=== PATIENT | female | born 1950 | race Caucasian/White ===

== ENCOUNTER 2016-07-19 13:08 | Inpatient (IN) | payer OTHER ==
[~2016-07-19] VITALS: Ht 157.5 cm; Wt 147.9 kg
[~2016-07-19 13:08] MED LIST: AMLO10TA4 PO; AMOX500C3 PO; ASPI325T4 PO; CALCTAB7 PO; FURO80TA63 PO; GLUC10007 PO; LISI40TA PO; MULTTAB58 PO; OMEG10007 PO; PANT1TAB48 PO; PIOG15TA26 PO; [UNRECOGNIZED DRUG - CODE] PO
[2016-07-19] MEDS ORDERED: METOPROLOL TARTRATE 1 MG/ML VIAL IV STA ×2 (15:00→15:36)
[2016-07-19 15:10] LABS: BASO % 0.6 %; BASO ABS # 0.05 K/uL (0-0.2); COMPLETE YES; EOS % 0.9 %; HEMATOCRIT 32.3 % (37-47); IG% 0.3 %; LYMPH % 17.8 %; LYMPH ABS # 1.58 K/uL (1.2-3.4); MEAN CELL VOLUME 81.6 fL (80-100); MEAN CORPUSCULAR HEMOGLOBIN 26.5 pg (25-34); MEAN CORPUSCULAR HGB CONC 32.5 g/dl (32-36); MONO % 4.5 %; NEUT % 75.9 %; PLATELET COUNT 227 K/uL (130-400); RED BLOOD COUNT 3.96 M/uL (4.2-5.4); WHITE BLOOD COUNT 8.88 K/uL (4.8-10.8)
[2016-07-19 15:19] LABS: PROTHROMBIN TIME (PATIENT) 10.8 SECONDS (9.0-12.0)
[2016-07-19 15:28] LABS: BLOOD UREA NITROGEN 27 mg/dl (7-18); BUN/CREATININE RATIO 24.9 (10-20); CALCIUM 8.9 mg/dl (8.5-10.1); CARBON DIOXIDE 26 mmol/L (21-32); CHLORIDE 105 mmol/L (98-107); GLUCOSE 148 mg/dl (70-99); POTASSIUM 3.5 mmol/L (3.5-5.1); SODIUM 143 mmol/L (136-145)
--- NOTE | 2016-07-19 15:29 | DIAGNOSTIC IMAGING REPORT ---
CHEST ONE VIEW PORTABLE CLINICAL HISTORY: slob, tachy dyspnea COMPARISON STUDY: 05/15/2012 FINDINGS: Right basilar parenchymal infiltrate. Mild right hilar fullness. Mild cardiomegaly. Upper lungs are clear. IMPRESSION: Diffuse parenchymal infiltrate right base. Mild possibly reactive right hilar fullness. Repeat chest film at later date when current symptoms have resolved is suggested to exclude residual hilar enlargement Electronically signed by: Florentin Quinones M.D. 07/19/2016 3:28 PM Dictated Date/Time: 07/19/2016 3:27 PM
[2016-07-19] MEDS ORDERED: ASPI81TA28 PO (15:30)
[2016-07-19] MEDS ORDERED: SUCR1TAB29 PO (15:33)
[2016-07-19] MEDS ORDERED: ACET-1256 PO (15:33)
[2016-07-19] MEDS ORDERED: TRAM-10 PO (15:36)
[2016-07-19] MEDS ORDERED: SIMV20TA2 PO (15:36)
[2016-07-19] MEDS ORDERED: PRLSR20 PO (15:36)
[2016-07-19] MEDS ORDERED: ALLO100T PO (15:36)
[2016-07-19] MEDS ORDERED: MISC1CAP PO (15:38)
[2016-07-19] MEDS ORDERED: CHOL1TAB42 PO (15:38)
[2016-07-19] MEDS ORDERED: MULT1PAK6 PO (15:41)
[2016-07-19 15:43] LABS: ALKALINE PHOSPHATASE 83 U/L (45-117); ALT/SGPT 25 U/L (12-78); AST/SGOT 17 U/L (15-37)
[2016-07-19] MEDS ORDERED: SODIUM CHLORIDE 0.9% 500ML 500 ML IV STA (15:48)
[2016-07-19] MEDS ORDERED: PANTOprazole INJ 80 MG in DEXTROSE 5% 100ML IV ONE (16:45)
[2016-07-19] MEDS ORDERED: PANTOprazole INJ 40 MG in DEXTROSE 5% 100ML IV SCH (17:00)
[2016-07-19] MEDS ORDERED: ONDANSETRON INJ 2 MG/ML 2 ML VIAL IV PRN (17:30)
[2016-07-19] MEDS ORDERED: NITROGLYCERIN 0.4 MG SL PER TAB CHARGE SL PRN (17:30)
[2016-07-19] MEDS ORDERED: ACETAMINOPHEN 325 MG TAB PO PRN (17:30)
[2016-07-19] MEDS ORDERED: METOPROLOL TARTRATE 25 MG TAB PO ONE (17:45)
[2016-07-19] MEDS ORDERED: FLUC200T PO (17:58)
[2016-07-19 18:01] LABS: MAGNESIUM 1.7 mg/dl (1.8-2.4); THYROID STIMULATING HORMONE 2.37 uIu/ml (0.300-4.500)
[2016-07-19] MEDS ORDERED: GLUCAGON FOR INJ 1 MG VIAL SQ PRN (18:15)
[2016-07-19] MEDS ORDERED: GLUCOSE 40% GEL 15 GM TUBE PO PRN (18:15)
[2016-07-19] MEDS ORDERED: DEXTROSE 50% 50 ML SYR IV PRN (18:15)
[2016-07-19] MEDS ORDERED: GLUCOSE 10 TABS/TUBE PO PRN (18:15)
--- NOTE | 2016-07-19 19:06 | History and Physical ---
History & Physical Date & Time of Service: Jul 19, 2016 at 18:01 Chief Complaint: Anemia, Sob On Exertion, Tachycardia Primary Care Physician: Micah Whitmore MD History of Present Illness Source: patient This is a 66 y/o female with PMH of HTN, DM type 2, HL, OA, gout, hx severe GIB secondary to gastric ulcer H Pylori positive in 2012, chronic anemia, who presents to the ED with dyspnea on exertion. Patient states HERRERA started 5 days ago. She initially attributed it to anemia. No SOB at rest. Chronically sleeps propped up. Breathing comfortably currently. She has not felt any palpitations but yesterday took her pulse and found it was irregular. She reports 10-15 lb weight gain and increase from chronic BLLE edema over past 1 week. She had 2 episodes of liquid stool this morning. She reports she has "a cold" with nasal congestion, postnasal drip, sore throat. Denies fevers, chills, cough, dizziness , chest pain, acid reflux, abdominal pain, N/V, urinary changes, calf pain, increase in chronic LE erythema, focal neuro symptoms. She recently was taking prednisone (took for 10 days- stopped 1 wk ago) for a gout flare and ibuprofen for chronic OA pain (stopped 3 days ago). Last EGD was in 2012 with gastric ulcers. No history of arrhythmia, CHF, CAD, TIA, CVA. No prior echo or stress test. Past Medical/Surgical History Medical Problems: (1) Anemia Status: Chronic (2) CKD (chronic kidney disease), stage III Status: Chronic (3) DM type 2 (diabetes mellitus, type 2) Status: Chronic (4) Dyslipidemia Status: Chronic (5) Gastric ulcer due to Helicobacter pylori Status: Chronic (6) Gout Status: Chronic (7) History of GI bleed Status: Chronic (8) HTN (hypertension) Status: Chronic (9) Hx of basal cell carcinoma Status: Chronic (10) Osteoarthritis Status: Chronic Surgical Problems: (1) H/O rotator cuff surgery Status: Chronic (2) History of arthroplasty of left knee Status: Chronic (3) History of carpal tunnel surgery Status: Chronic (4) Status post Mohs surgery Status: Chronic Family History Diabetes mellitus FH: CHF (congestive heart failure) GRANDMOTHER Hypertension Denies family history of arrhythmia or CAD. Grandmother had CHF. Social History Drinks 5 diet coke daily. No coffee, tea, energy drinks. 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) Immunizations History of Influenza Vaccine: No History of Tetanus Vaccine?: Yes History of Pneumococcal: No History of Hepatitis B Vaccine: No Multi-Drug Resistant Organisms History of MDRO: No Allergies Coded Allergies: Penicillins (Verified Allergy, Intermediate, URTICARIA; PER PT, CAN TAKE AMOXICILLIN, 07/19/16) Erythromycin (Verified Adverse Reaction, Mild, GI UPSET, 07/19/16) Home Medications Scheduled Allopurinol (Zyloprim), 2 TAB PO HS Amlodipine Besylate (Norvasc), 10 MG PO DAILY Aspirin (Aspirin Ec), 81 MG PO DAILY Cholecalciferol (Vitamin D), 1 TAB PO QAM Fluconazole (Diflucan), 1 TAB PO WK Furosemide (Lasix), 80 MG PO DAILY Lisinopril (Zestril), 40 MG PO DAILY Misc Natural Products (Cosamin Asu Advanced Life), 1 CAP PO QAM Multiple Vitamin (Multivitamin), 1 TAB PO DAILY Omeprazole (Prilosec), 20 MG PO DAILY Pioglitazone Hcl-Metformin 15/850 Mg (Actoplus Met 15/850 Mg), 1 TAB PO BID Simvastatin (Zocor), 1 TAB PO HS Scheduled PRN Acetaminophen (Tylenol), 1 TAB PO BID PRN for Pain Tramadol (Ultram), 2 TAB PO QID PRN for Pain Review of Systems Ten point ROS performed with pertinent positives and negatives noted in HPI. Physical Exam Vital Signs Date Time Temp Pulse Resp B/P Pulse Ox O2 Delivery O2 Flow Rate FiO2 07/19/16 16:49 121 20 128/76 07/19/16 16:04 142 20 128/68 93 Room Air 07/19/16 16:03 128 128/68 07/19/16 15:58 127 07/19/16 15:18 136 22 125/76 96 Room Air 07/19/16 15:17 159 125/76 07/19/16 13:16 36.6 145 20 162/95 92 Room Air 07/19/16 13:16 93 Room Air General Appearance: WD/WN, no apparent distress, + pertinent finding (plesant alert 66 year old female, daughter and son in law at bedside) Head: normocephalic, atraumatic Eyes: normal inspection, PERRL, EOMI ENT: hearing grossly normal, pharynx normal Neck: supple, no JVD, trachea midline Respiratory/Chest: no respiratory distress, no accessory muscle use, + crackles (bilateral bases) Cardiovascular: no murmur, + irregularly irregular (rate fluctuating between 110s-130s) Abdomen/GI: normal bowel sounds, non tender, soft Extremities/Musculoskelatal: no calf tenderness, + pertinent finding (2-3+ pitting pretibial edema up to the knees bilaterally) Neurologic/Psych: alert, normal mood/affect, oriented x 3, + pertinent finding (grossly nonfocal) Skin: warm/dry, + pertinent finding (few scabbed abrasions on right lower leg, erythema bilateral lower legs above the ankles- unchanged from baseline per patient, no tenderness or warmth) Diagnostics Laboratory Results Results Past 24 Hours Test 07/19/16 15:01 Range/Units White Blood Count 8.88 4.8-10.8 K/uL Red Blood Count 3.96 4.2-5.4 M/uL Hemoglobin 10.5 12.0-16.0 g/dL Hematocrit 32.3 37-47 % Mean Corpuscular Volume 81.6 80-100 fL Mean Corpuscular Hemoglobin 26.5 25-34 pg Mean Corpuscular Hemoglobin Concent 32.5 32-36 g/dl Platelet Count 227 130-400 K/uL Mean Platelet Volume 10.0 7.4-10.4 fL Neutrophils (%) (Auto) 75.9 % Lymphocytes (%) (Auto) 17.8 % Monocytes (%) (Auto) 4.5 % Eosinophils (%) (Auto) 0.9 % Basophils (%) (Auto) 0.6 % Neutrophils # (Auto) 6.74 1.4-6.5 K/uL Lymphocytes # (Auto) 1.58 1.2-3.4 K/uL Monocytes # (Auto) 0.40 0.11-0.59 K/uL Eosinophils # (Auto) 0.08 0-0.5 K/uL Basophils # (Auto) 0.05 0-0.2 K/uL RDW Standard Deviation 49.3 36.4-46.3 fL RDW Coefficient of Variation 16.3 11.5-14.5 % Immature Granulocyte % (Auto) 0.3 % Immature Granulocyte # (Auto) 0.03 0.00-0.02 K/uL Prothrombin Time 10.8 9.0-12.0 SECONDS Prothromb Time International Ratio 1.0 0.9-1.1 Activated Partial Thromboplast Time 25.4 21.0-31.0 SECONDS Partial Thromboplastin Ratio 1.0 Sodium Level 143 136-145 mmol/L Potassium Level 3.5 3.5-5.1 mmol/L Chloride Level 105 98-107 mmol/L Carbon Dioxide Level 26 21-32 mmol/L Anion Gap 12.0 3-11 mmol/L Blood Urea Nitrogen 27 7-18 mg/dl Creatinine 1.10 0.60-1.20 mg/dl Est Creatinine Clear Calc Drug Dose 66.0 ml/min Estimated GFR () 60.6 Estimated GFR (Non- 52.3 BUN/Creatinine Ratio 24.9 10-20 Random Glucose 148 70-99 mg/dl Calcium Level 8.9 8.5-10.1 mg/dl Total Bilirubin 0.4 0.2-1 mg/dl Direct Bilirubin 0.1 0-0.2 mg/dl Aspartate Amino Transf (AST/SGOT) 17 15-37 U/L Alanine Aminotransferase (ALT/SGPT) 25 12-78 U/L Alkaline Phosphatase 83 45-117 U/L Troponin I < 0.015 0-0.045 ng/ml Pro-B-Type Natriuretic Peptide 1704 0-900 pg/ml Total Protein 7.1 6.4-8.2 gm/dl Albumin 3.4 3.4-5.0 gm/dl Diagnostic Radiology CHEST ONE VIEW PORTABLE CLINICAL HISTORY: slob, tachy dyspnea COMPARISON STUDY: 05/15/2012 FINDINGS: Right basilar parenchymal infiltrate. Mild right hilar fullness. Mild cardiomegaly. Upper lungs are clear. IMPRESSION: Diffuse parenchymal infiltrate right base. Mild possibly reactive right hilar fullness. Repeat chest film at later date when current symptoms have resolved is suggested to exclude residual hilar enlargement EKG AF with RVR rate 144 Impression Assessment and Plan ATRIAL FIBRILLATION WITH RVR New onset Rate up to 140s-150s in ED Given IV Lopressor 5 mg in ER with drop in BP -> resolved with 500 mL bolus, then had 2nd dose of IV Lopressor 5 mg IV; rate still fluctuating 110s-130s Initial trop negative; potassium WNL; mag slightly low- replacement ordered; TSH WNL CXR shows cardiomegaly, R base infiltrate; clinically no symptoms of pneumonia; no fever; no leukocytosis Clinically appears to be volume overloaded; + weight gain, edema, bibasilar crackles; BNP ~1700 Question if volume overload triggered the atrial fibrillation Give IV Lasix 80 mg x 1 Monitor daily weight and strict I/O's with sin catheter Check echo Trend serial cardiac enzymes CHADS2 score 2 from HTN and DM No anticoagulation given positive hemoccult stool in ER Cardiology consulted; case discussed with Dr. Lino by attending CHRONIC ANEMIA Hg is 10.5; was running 11's in 2014; ran 11 or lower since 2012 Hx severe GIB from peptic ulcer secondary to H pylori in 2012; required transfusion of 5 units at that time for Hg in 4's With hemoccult positive stool in ER Does not appear to be acutely bleeding; ? longstanding slow GIB; at risk for ulcer with recent NSAID and prednisone use, but not having epigastric pain, hematochezia or melena Was placed on PPI drip in ER- will decrease back to daily PO PPI HYPERTENSION Takes amlodipine, lisinopril, Lasix at home Hold home antihypertensives for now while getting IV Lasix Monitor BP DM TYPE 2 Hold pioglitazone- metformin Insulin sliding scale coverage Check A1c in am CKD STAGE III Cr is 1.1; stable at baseline Monitor renal function while on IV Lasix DYSLIPIDEMIA Continue statin DVT PROPHYLAXIS SCD's due to hemoccult positive stool FULL CODE DISPOSITION Follows with Dr. Whtimore for primary care Patient seen in collaboration with Dr. Alarcon. Please see her addendum. I have seen, examined and discussed this patient with Keily Howard and I agree with the above note. Patient presents with HERRERA for the past several days. Vitals notable for tachycardia and low-normal blood pressures. PE: General- awake; alert; NAD Eyes- EOMI; no scleral icterus Neck- no stridor; trachea midline Lungs- bibasilar crackles Heart- irregularly irregular Abdomen- soft; NT; nBS Back- no gross abnormalities Extremities- 2+ pitting edema bilateral LE; no deformity Neuro- no focal deficits Skin- no appreciable rash or bruise Labs, imaging and EKG reviewed. A fib with RVR: Case d/w Cardiology. May be precipitated by volume overload. Patient received Lopressor IV x2 in ED. Remains in A fib. Will diurese to see if helps with HR control. Give Lasix 80mg IV x1 (patient takes 80mg PO outpatient). No anticoagulation given heme-occult +. Sin catheter for accurate I/O. Volume overload: Possible new onset heart failure. Recent weight gain. Crackles on lung exam and LE edema. Elevated BNP (although patient is obese). TTE pending. Cardiology consulted. Lasix 80mg IV x1. HTN: Hold home antihypertensives. Agree with remainder of plan as outlined above. VTE Prophylaxis VTE Risk Assessment Done? Y/N: Yes Risk Level: Moderate
[2016-07-19] MEDS ORDERED: FUROSEMIDE INJ 80 MG in SYRINGE 0 ML IV ONE (19:30)
[2016-07-19] MEDS ORDERED: MAGNESIUM SULFATE 1GM / D5W 1 GM in PREMIXED IN D5W 100 ML IV ONE (19:30)
[2016-07-19 19:31] VITALS: BP 154/88; PULSE 106; TEMP 36.6; O2SAT 93; Ht 157.5 cm; Wt 147.9 kg
[2016-07-19] MEDS: ALLOPURINOL 100 MG TAB PO SCH (20:59)
[2016-07-19] MEDS ORDERED: INFLUENZA VIRUS QUAD VACCINE 0.5 ML SYR IM. ONE (21:00)
[2016-07-19] MEDS ORDERED: INFLUENZA ADMINISTRATION CHARGE ONE (21:00)
[2016-07-19] MEDS ORDERED: SIMVASTATIN 20 MG TAB PO SCH (21:00)
[2016-07-19] MEDS: INSULIN ASPART 100 UNITS/ML 3 ML PEN SC SCH (21:01)
--- NOTE | 2016-07-19 21:26 | EMERGENCY ROOM VISIT NOTE ---
History Report prepared by Joni: Ginger Ta Under the Supervision of: Dr. Vick Morgan M.D. First contact with patient: 14:40 Chief Complaint: SHORTNESS OF BREATH Stated Complaint: ANEMIA, SOB ON EXERTION, TACHYCARDIA Nursing Triage Summary: pt report she has sob mouna is vet put self on prednisone but now sob. pt has bilat lower ext edema. has cold sx. pt tested her own blood yesteday hct 28.9 took ibuprofen up til 3 days ago. History of Present Illness The patient is a 66 year old female who presents to the Emergency Room with complaints of worsening shortness of breath with onset five days ago. She rates her discomfort as a 2/10. 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 When she noticed the shortness of breath, she started herself on prednisone. The patient took her own hematocrit and states that it was at 28.9. The patient states that she often takes ibuprofen and that she forgot to stop taking the ibuprofen when she started herself on the prednisone. The patient took ibuprofen up until three days ago. The patient relates that has a history of anemia and that she has had a bleeding ulcer before. For this, she has had to have a blood transfusion. The patient has gained fifteen pounds in the past two weeks and she has some swelling in her legs. She has had diarrhea. The patient denies black stool, history of atrial fibrillation, syncope, chest pain, abdominal pain. Source of History: patient Onset: 5 days ago Position: chest Symptom Intensity: 2/10 Quality: other (shortness of breath) Associated Symptoms: + diarrhea, No abdominal pain, No chest pain, No melena Note: The patient has gained fifteen pounds in the past two weeks and she has some swelling in her legs. Review of Systems See HPI for pertinent positives & negatives. A total of 10 systems reviewed and were otherwise negative. Past Medical & Surgical Medical Problems: (1) Anemia (2) Atrial fibrillation with RVR (3) CKD (chronic kidney disease), stage III (4) DM type 2 (diabetes mellitus, type 2) (5) Dyslipidemia (6) Gastric ulcer due to Helicobacter pylori (7) Gout (8) History of GI bleed (9) HTN (hypertension) (10) Hx of basal cell carcinoma (11) Osteoarthritis Surgical Problems: (1) H/O rotator cuff surgery (2) History of arthroplasty of left knee (3) History of carpal tunnel surgery (4) Status post Mohs surgery Family History Diabetes mellitus FHx: heart disease Hypertension Social History Smoking Status: Never Smoker Alcohol Use: occasionally Marital Status: Occupation Status: employed Current/Historical Medications Scheduled Allopurinol (Zyloprim), 2 TAB PO HS Amlodipine Besylate (Norvasc), 10 MG PO DAILY Aspirin (Aspirin Ec), 81 MG PO DAILY Cholecalciferol (Vitamin D), 1 TAB PO QAM Fluconazole (Diflucan), 1 TAB PO WK Furosemide (Lasix), 80 MG PO DAILY Lisinopril (Zestril), 40 MG PO DAILY Misc Natural Products (Cosamin Asu Advanced Life), 1 CAP PO QAM Multiple Vitamin (Multivitamin), 1 TAB PO DAILY Omeprazole (Prilosec), 20 MG PO DAILY Pioglitazone Hcl-Metformin 15/850 Mg (Actoplus Met 15/850 Mg), 1 TAB PO BID Simvastatin (Zocor), 1 TAB PO HS Scheduled PRN Acetaminophen (Tylenol), 1 TAB PO BID PRN for Pain Tramadol (Ultram), 2 TAB PO QID PRN for Pain Allergies Coded Allergies: Penicillins (Verified Allergy, Intermediate, URTICARIA; PER PT, CAN TAKE AMOXICILLIN, 07/19/16) Erythromycin (Verified Adverse Reaction, Mild, GI UPSET, 07/19/16) Physical Exam Vital Signs Date Time Temp Pulse Resp B/P Pulse Ox O2 Delivery O2 Flow Rate FiO2 07/19/16 16:49 121 20 128/76 07/19/16 16:04 142 20 128/68 93 Room Air 07/19/16 16:03 128 128/68 07/19/16 15:58 127 07/19/16 15:18 136 22 125/76 96 Room Air 07/19/16 15:17 159 125/76 07/19/16 13:16 36.6 145 20 162/95 92 Room Air 07/19/16 13:16 93 Room Air Physical Exam GENERAL: Patient is unwell appearing and in minimal distress. HEENT: No acute trauma, normocephalic atraumatic, mucous membranes moist, no nasal congestion, no scleral icterus. NECK: No stridor, no adenopathy, no meningismus, trachea is midline. LUNGS: Distant lung sounds. HEART: Tachycardic rate and regular rhythm. No murmurs, rubs, gallops appreciated. ABDOMEN: Soft, nontender, bowel sounds positive, no masses appreciated, no peritonitis. BACK: No midline tenderness, no CVA tenderness EXTREMITIES: Normal motion all extremities, no cyanosis, no edema. NEUROLOGIC: Alert and oriented, no acute motor or sensory deficits, no focal weakness, cranial nerves grossly intact. SKIN: No rash, no jaundice, no diaphoresis. RECTAL: Brown, heme positive stool. Medical Decision & Procedures ER Provider Diagnostic Interpretation: X ray results are stated below per my interpretation and the radiologist's interpretation. CHEST ONE VIEW PORTABLE CLINICAL HISTORY: slob, tachy dyspnea COMPARISON STUDY: 05/15/2012 FINDINGS: Right basilar parenchymal infiltrate. Mild right hilar fullness. Mild cardiomegaly. Upper lungs are clear. IMPRESSION: Diffuse parenchymal infiltrate right base. Mild possibly reactive right hilar fullness. Repeat chest film at later date when current symptoms have resolved is suggested to exclude residual hilar enlargement Electronically signed by: Florentin Quinones M.D. 07/19/2016 3:28 PM Dictated Date/Time: 07/19/2016 3:27 PM Laboratory Results 07/19/16 15:01 Red Blood Count 3.96, Mean Corpuscular Volume 81.6, Mean Corpuscular Hemoglobin 26.5, Mean Corpuscular Hemoglobin Concent 32.5, Mean Platelet Volume 10.0, Neutrophils (%) (Auto) 75.9, Lymphocytes (%) (Auto) 17.8, Monocytes (%) (Auto) 4.5, Eosinophils (%) (Auto) 0.9, Basophils (%) (Auto) 0.6, Neutrophils # (Auto) 6.74, Lymphocytes # (Auto) 1.58, Monocytes # (Auto) 0.40, Eosinophils # (Auto) 0.08, Basophils # (Auto) 0.05 07/19/16 15:01 Test 07/19/16 15:01 White Blood Count 8.88 K/uL (4.8-10.8) Red Blood Count 3.96 M/uL (4.2-5.4) Hemoglobin 10.5 g/dL (12.0-16.0) Hematocrit 32.3 % (37-47) Mean Corpuscular Volume 81.6 fL (80-100) Mean Corpuscular Hemoglobin 26.5 pg (25-34) Mean Corpuscular Hemoglobin Concent 32.5 g/dl (32-36) Platelet Count 227 K/uL (130-400) Mean Platelet Volume 10.0 fL (7.4-10.4) Neutrophils (%) (Auto) 75.9 % Lymphocytes (%) (Auto) 17.8 % Monocytes (%) (Auto) 4.5 % Eosinophils (%) (Auto) 0.9 % Basophils (%) (Auto) 0.6 % Neutrophils # (Auto) 6.74 K/uL (1.4-6.5) Lymphocytes # (Auto) 1.58 K/uL (1.2-3.4) Monocytes # (Auto) 0.40 K/uL (0.11-0.59) Eosinophils # (Auto) 0.08 K/uL (0-0.5) Basophils # (Auto) 0.05 K/uL (0-0.2) RDW Standard Deviation 49.3 fL (36.4-46.3) RDW Coefficient of Variation 16.3 % (11.5-14.5) Immature Granulocyte % (Auto) 0.3 % Immature Granulocyte # (Auto) 0.03 K/uL (0.00-0.02) Prothrombin Time 10.8 SECONDS (9.0-12.0) Prothromb Time International Ratio 1.0 (0.9-1.1) Activated Partial Thromboplast Time 25.4 SECONDS (21.0-31.0) Partial Thromboplastin Ratio 1.0 Anion Gap 12.0 mmol/L (3-11) Est Creatinine Clear Calc Drug Dose 66.0 ml/min Estimated GFR () 60.6 Estimated GFR (Non- 52.3 BUN/Creatinine Ratio 24.9 (10-20) Calcium Level 8.9 mg/dl (8.5-10.1) Magnesium Level 1.7 mg/dl (1.8-2.4) Total Bilirubin 0.4 mg/dl (0.2-1) Direct Bilirubin 0.1 mg/dl (0-0.2) Aspartate Amino Transf (AST/SGOT) 17 U/L (15-37) Alanine Aminotransferase (ALT/SGPT) 25 U/L (12-78) Alkaline Phosphatase 83 U/L (45-117) Pro-B-Type Natriuretic Peptide 1704 pg/ml (0-900) Total Protein 7.1 gm/dl (6.4-8.2) Albumin 3.4 gm/dl (3.4-5.0) Thyroid Stimulating Hormone (TSH) 2.370 uIu/ml (0.300-4.500) Laboratory results as reviewed by me. Medications Administered Medications (Trade) Dose Ordered Sig/Scott Route Start Time Stop Time Status Last Admin Dose Admin Metoprolol Tartrate (Lopressor Iv) 5 mg NOW STAT IV 07/19/16 15:00 07/19/16 15:01 DC 07/19/16 15:17 5 MG Metoprolol Tartrate 5 mg 5 mg NOW STAT IV 07/19/16 15:36 07/19/16 15:37 DC 07/19/16 16:03 5 MG Sodium Chloride (Nss 500ml) 500 ml @ 999 mls/hr Q31M STAT IV 07/19/16 15:48 07/19/16 16:18 DC 07/19/16 15:51 999 MLS/HR Pantoprazole Sodium 1 ea 1 ea NOW STAT IV 07/19/16 16:04 07/19/16 16:05 DC 07/19/16 16:36 1 EA Pantoprazole Sodium 80 mg/ Dextrose 120 ml @ 480 mls/hr 1645 ONCE IV 07/19/16 16:45 07/19/16 16:59 DC 07/19/16 16:35 480 MLS/HR Pantoprazole Sodium/Dextrose (Protonix Inj/D5 100ml) 100 ml @ 20 mls/hr Q5H IV 07/19/16 17:00 07/19/16 18:45 DC 07/19/16 16:58 20 MLS/HR ECG Indication: SOB/dyspnea Rate (beats per minute): 144 Rhythm: atrial fibrillation (with RVR) Findings: PVC, other (no STEMI, non specific ST changes) ED Course 1441: The patient was evaluated in room C4. A complete history and physical exam was performed. 1500: Lopressor 5 mg IV 1530: I reevaluated the patient; she is feeling better but her heart rate is irregular. 1536: Lopressor 5 mg IV 1540: I reevaluated the patient; she is hypotensive post-Lopressor, we have not yet given the second dose of Lopressor. 1548: Sodium Chloride 500 ml @ 999 mls/hr IV 1604: Pantoprazole Sodium 1 ea IV 1605: I updated the patient. Heart rate is in the 120s and blood pressure is 128. 1645: Pantoprazole Sodium 80 mg / Dextrose 120 ml @ 480 mls/hr IV 1620: I discussed the case with Dr. Alarcon ([facility]); she will further evaluate the patient. Discussed results and treatment plan with the patient. She verbalized understanding and agreement with the treatment plan. The patient will be evaluated for further management. 1700: Pantoprazole Sodium 40 mg/ Dextrose 100 ml @ 20 mls/hr IV Medical Decision Differential: Infectious, Reactive Airway Disease, Pneumonia, Pneumothorax, COPD , CHF, ACS, Pulmonary Embolism, MSK, GI, Dissection, amongst other etiologies entertained. 66 yr old female arrives for generalized weakness, fatigue, and tachycardia. She is Afib RVR on arrival. Initially BP OK and with CHF concerns went with Lopressor to help slow down HR. She has no cough, no fever, no wbc elevation thus I do not feel this is infectious. She notes Prednisone use and NSAID use thus rectal exam which revealed brown heme POSITIVE stool. Started on Protonix as apparently gastric ulcer requiring transfusion in past. Mild hypotension with Lopressor thus gentle hydration, BP improved and given second lopressor and BP stable with HR to low 100s. Stable and in no distress. No significant respiratory issues though with exam, cxr congestion, 15 lb weight gain no doubt element of heart failure. Will likely need diuresis though will hold off given transient hypotension here. HgB stable thus no need for transfusion currently. With positive blood in stool will hold off from Heparin at this time and defer to medical team. Consults Time Called: 1618 Consulting Physician: Dr. Alarcon ([facility]) Returned Call: 1620 I discussed the case with Dr. Alarcon ([facility]); she will further evaluate the patient. Impression Primary Impression: Atrial fibrillation with RVR Additional Impressions: Heme positive stool Acute congestive heart failure Critical Care I have personally spent greater than 35 minutes of critical care time in the direct management of this patient. This was a life/limb threatening event. This includes time spent evaluating patient, direct bedside care, chart review, placing orders, interpretation of diagnostic studies, discussion with consultants, patient, and family members, as well as other required patient management activities. This 35 minutes is in excess of all separately billable procedures. Scribe Attestation The scribe's documentation has been prepared under my direction and personally reviewed by me in its entirety. I confirm that the note above accurately reflects all work, treatment, procedures, and medical decision making performed by me. Departure Information Dispostion Being Evaluated By Hospitalist Referrals Micah Whitmore MD (PCP) Patient Instructions My [facility] Problem Qualifiers Additional Impressions: Acute congestive heart failure Congestive heart failure type: unspecified congestive heart failure type Qualified Codes: I50.9 - Heart failure, unspecified
[2016-07-19 21:48] LABS: CKMB/CK RATIO 1.5 (0-3.0)
[2016-07-19] MEDS: METOPROLOL TARTRATE 1 MG/ML VIAL IV PRN (21:54)
[2016-07-19] MEDS ORDERED: POTASSIUM CHLORIDE 10 MEQ TABCR PO STA (23:00)
[2016-07-19] MEDS ORDERED: DIGOXIN IV 250 MCG in SYRINGE 9 ML IV ONE (23:15)
[2016-07-20] VITALS (10 sets, daily range): BP systolic 116–149; BP diastolic 68–89; PULSE 51–137; TEMP 36.3–37.1; O2SAT 91–96
[2016-07-20 03:09] LABS: HEMATOCRIT 30.1 % (37-47); MEAN CELL VOLUME 80.9 fL (80-100); MEAN CORPUSCULAR HEMOGLOBIN 26.3 pg (25-34); MEAN CORPUSCULAR HGB CONC 32.6 g/dl (32-36); MEAN PLATELET VOLUME 9.5 fL (7.4-10.4); PLATELET COUNT 192 K/uL (130-400); RED BLOOD COUNT 3.72 M/uL (4.2-5.4); WHITE BLOOD COUNT 6.97 K/uL (4.8-10.8)
[2016-07-20 03:26] LABS: BLOOD UREA NITROGEN 24 mg/dl (7-18); BUN/CREATININE RATIO 24.2 (10-20); CALCIUM 8.7 mg/dl (8.5-10.1); CARBON DIOXIDE 26 mmol/L (21-32); CHLORIDE 106 mmol/L (98-107); GLUCOSE 136 mg/dl (70-99); MAGNESIUM 1.7 mg/dl (1.8-2.4); POTASSIUM 3.6 mmol/L (3.5-5.1); SODIUM 144 mmol/L (136-145)
[2016-07-20 03:31] LABS: CKMB/CK RATIO 1.8 (0-3.0)
[2016-07-20] MEDS: METOPROLOL TARTRATE 1 MG/ML VIAL IV PRN (03:54)
[2016-07-20 07:15] LABS: ESTIMATED AVERAGE GLUCOSE 163 mg/dl; HA1C FLAG Normal (Normal)
[2016-07-20 08:00] LABS: MANUAL MICROSCOPIC REQUIRED? YES; URINE APPEARANCE SL CLOUDY (CLEAR); URINE BILIRUBIN NEG (NEG); URINE COLOR YELLOW; URINE NITRITE POS (NEG); UROBILINOGEN NEG (NEG)
[2016-07-20 08:02] LABS: REVIEW REQ? NO
[2016-07-20] MEDS: INSULIN ASPART 100 UNITS/ML 3 ML PEN SC SCH ×4 (08:02→20:35)
[2016-07-20] MEDS: PANTOprazole SOD 40 MG TAB PO SCH (08:05)
[2016-07-20] MEDS: ASPIRIN 81 MG ECTAB PO SCH (08:05)
[2016-07-20] MEDS: CHOLECALCIFEROL 1000 INTER.UNIT TAB PO SCH (08:05)
[2016-07-20] MEDS: MULTIVITAMIN TAB PO SCH (08:05)
[2016-07-20 08:11] LABS: URINE RBC 0-4 /hpf (0-4)
[2016-07-20 08:12] LABS: URINE BACTERIA 4+ (NEG)
[2016-07-20 08:14] LABS: ZZUR CULT IF INDIC CLEAN CATCH YES
--- NOTE | 2016-07-20 08:45 | DIAGNOSTIC IMAGING REPORT ---
CHEST 2 VIEWS ROUTINE HISTORY: Abnormal chest x-ray. Follow-up. COMPARISON: Chest 07/19/2016. FINDINGS: Small bilateral pleural effusions and cardiomegaly persist. Patchy bibasilar densities have improved. No pneumothorax. No change in the bilateral hilar prominence. IMPRESSION: 1. Improvement in the patchy bibasilar densities. 2. Small bilateral pleural effusions and cardiomegaly persist. 3. Bilateral hilar prominence, unchanged. This could be due to pulmonary vascular congestion versus hilar lymphadenopathy. Recommend follow-up to ensure resolution. Electronically signed by: Suhail Nolen M.D. 07/20/2016 8:43 AM Dictated Date/Time: 07/20/2016 8:42 AM
[2016-07-20] MEDS ORDERED: MAGNESIUM OXIDE 400 MG TAB PO ONE (08:58)
[2016-07-20] MEDS ORDERED: METOPROLOL TARTRATE 25 MG TAB PO SCH (09:00)
[2016-07-20] MEDS ORDERED: AMIODARONE IV BOLUS / DRIP IV STA (09:03)
[2016-07-20] MEDS ORDERED: AMIODARONE / D5W 100 ML IV SCH (09:20)
[2016-07-20 09:30] LABS: ISTAT HEMOGLOBIN 11.2 g/dl (12.0-16.0); ISTAT IONIZED CALCIUM 1.13 mmol/l (1.12-1.32)
[2016-07-20] MEDS ORDERED: AMIODARONE / D5W 200 ML IV SCH (09:30)
--- NOTE | 2016-07-20 10:01 | CARDIOLOGY CONSULTATION ---
DATE OF CONSULTATION: 07/20/2016 HISTORY OF PRESENT ILLNESS: Juanpablo Paulino is a 66-year-old female, seen in cardiology consultation per the request of Naomi Howard PA-C and Dr. Alarcon for the evaluation of shortness of breath as well as atrial fibrillation with rapid ventricular rate. The patient has a history of morbid obesity with a body mass index of 61 kilograms per meter squared, hypertension, and type 2 diabetes mellitus. She has a history of profound anemia, having had a severe gastrointestinal bleeding episode in 2012 secondary to a peptic ulcer and H. pylori. Her hemoglobin was down to the 4 grams per deciliter range at that time and required transfusion of 5 units packed red blood cells. She has had chronic persistent anemia in the interim. The patient presented to the hospital yesterday complaining of several days duration of progressive shortness of breath. Her presentation to the hospital took place on Wednesday and she had noticed that she started feeling short of breath on Wednesday or Wednesday. Several days prior to presentation, she had had heel pain that she felt was likely due to a gout episode and she started a prednisone taper, starting at 50 mg by mouth daily. She is also taking ibuprofen for the gout pain. Her heel pain subsequently completely resolved, but she noted progressive shortness of breath as well as fluid retention, feeling of fullness in her abdomen, hand, lower extremity edema despite being on her home dose of furosemide. On presentation yesterday, she was found to be volume overloaded and EKG revealed a presence of atrial fibrillation with rapid ventricular rate at 144 beats per minute. This was a new diagnosis per the patient. The patient received a dose of IV metoprolol, but this was subsequently discontinued due to concerns of apparent low blood pressure, although her blood pressures as listed in her vital signs all appear to be stable. The lowest blood pressure I see recorded was 100/77. Thus far, she has remained in atrial fibrillation with rapid ventricular rate. She received 1 dose of metoprolol tartrate IV at 15:17 yesterday and a second dose of metoprolol tartrate intravenously at 16:03 yesterday. She also received a dose of digoxin at 12:22 a.m. this morning. She received a dose of furosemide 40 mg daily. She notes that she is comfortable sitting up in bed, but she is very short of breath with minimal activity. PAST MEDICAL HISTORY: 1. Type 2 diabetes mellitus. 2. Morbid obesity. 3. History of chronic anemia with a past history of severe gastrointestinal bleeding episode as noted above. 4. Gout. 5. History of hypertension. 6. Basal cell carcinoma. 7. Osteoarthritis. PAST SURGICAL HISTORY: 1. Rotator cuff surgery. 2. History of arthroplasty of the left knee. 3. History of carpal tunnel surgery. 4. History of Moh's surgery. 5. History of EGD. FAMILY HISTORY: Grandmother with congestive heart failure. Her brother with "heart history;" however, the patient is unable to determine what her brother's actual history was. She does not believe he has ever had any heart stents and she does not believe that he had a pacemaker. SOCIAL HISTORY: The patient drinks 5 diet Cokes per day. She denies coffee, tea, or energy drinks. She is a nonsmoker. 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 ALLERGIES: 1. PENICILLIN, WHICH HAS CAUSED URTICARIA IN THE PAST BUT APPARENTLY TOLERATES AMOXICILLIN. 2. ERYTHROMYCIN WITH GI UPSET. HOME MEDICATIONS: Allopurinol 2 tablets by mouth daily at bedtime, amlodipine 10 mg by mouth daily, aspirin 81 mg by mouth daily, vitamin D 1 tablet daily in the a.m., Diflucan 1 tablet by mouth daily once per week on Wednesday, furosemide 80 mg by mouth daily, lisinopril 40 mg daily, multivitamin 1 tablet by mouth daily, omeprazole 20 mg daily, pioglitazone/metformin 1 tablet by mouth b.i.d., and simvastatin 20 mg by mouth daily. The patient also takes acetaminophen and tramadol on an as needed basis. REVIEW OF SYSTEMS: Complete review of systems is negative with the exception of that outlined above. PHYSICAL EXAMINATION: VITAL SIGNS: Temperature 36.8 and heart rate 140-160 on telemetry. Blood pressure 133/84 and pulse oximetry 96% on room air. GENERAL APPEARANCE: Awake and oriented x3 in no acute distress. HEENT: Extraocular muscles were intact. Pupils are equal and reactive to light. NECK: No bruits. No cervical lymphadenopathy. CARDIOVASCULAR: Irregular rhythm, tachycardic, no murmurs. ABDOMEN: Soft, nontender, and obese. EXTREMITIES: 1+ lower extremity edema to the mid tibia. DIAGNOSTIC DATA: Presenting EKG on 07/19/2016 at 14:56 revealed atrial fibrillation with rapid ventricular rate at 144 beats per minute with no significant ST changes. Repeat EKG performed this morning on 07/20/2016 revealed atrial fibrillation at 135 beats per minute. LABORATORY DATA: Hemoglobin 9.8, hematocrit 30.1, and MCV 80.9. Sodium 144, potassium 3.6, BUN 24, creatinine 1.0, and magnesium 1.7. CPK 72 and 74 respectively. Troponin I less than 0.015, 0.020, and less than 0.015 x3 sets. The patient had a transthoracic echocardiogram already performed and per my personal preliminary review, there is no significant pericardial effusion. The left ventricular wall motion is grossly normal with normal LVEF. Mild mitral regurgitation is present. FINAL IMPRESSION: A 66-year-old female. 1. Shortness of breath with atrial fibrillation with rapid ventricular rate. 2. Superimposed volume overload in the setting of recent nonsteroidal anti-inflammatory course as well as prednisone. 3. Underlying history of type 2 diabetes mellitus. 4. History of hypertension; however, her blood pressure has been borderline low off of her antihypertensive medications at present. 5. Presumed underlying obstructive sleep apnea with a history of snoring, she has not been clinically tested for sleep apnea. 6. Longstanding anemia, history of life-threatening gastrointestinal bleeding several years ago, at which time she received transfusion of 5 units of packed red blood cells and having presented with a hemoglobin of 4.6. Her hemoglobin is 9.8 at present. DISCUSSION AND RECOMMENDATIONS: 1. The patient received 2 doses of IV metoprolol and they were discontinued due to concerns of borderline low blood pressure. She is perhaps still a little bit volume overloaded, having received a single dose of furosemide. 2. At the present time, I recommend transitioning her to oral metoprolol tartrate. We will start at 12.5 mg p.o. q. 6 hours due to concerns of recent mild low blood pressure with previous doses of IV metoprolol. 3. The patient is significantly symptomatic. She is not an anticoagulation candidate due to history of severe bleeding in the past and I would suspect that she still has some degree of gastrointestinal bleeding as her hemoglobin has remained abnormal over the last several years and is less than 10 at present time. 4. Per the patient's history, she believes that her symptoms started 5 days ago. 5. Ideally, I would like to avoid chemical or direct current cardioversion as she is not a candidate for anticoagulation, I do not want provoke stroke; however, given the significance of her symptoms, will cautiously start her on an amiodarone infusion with hopes of improving rate control without inducing hypotension and perhaps, will successfully be able to maintain sinus rhythm as well with less risk than would be necessary with direct current cardioversion. 6. Her magnesium level will be supplemented. 7. She may need further diuretic therapy at this hospital stay, but for now will hold off and start with these medication changes first. 8. Due to need for treatment with amiodarone, I would plan to place her fluconazole on hold. 9. Also, her simvastatin dose will need to be adjusted and I have decreased it from 20 mg to 10 mg. MTDD
[2016-07-20] MEDS: METOPROLOL TARTRATE 25 MG TAB PO SCH ×4 (10:31→20:38)
--- NOTE | 2016-07-20 10:34 | Progress Note ---
Medicine Progress Note Date & Time of Visit: Jul 20, 2016 at 10:26. Subjective seen sitting up in bed comfortable overall denies active chest pain, dyspnea, palpitations no cough, sputum no abdominal pain, nausea, melena/hematochezia no other symptoms Objective Last 8 Hrs Date Time Temp Pulse Resp B/P Pulse Ox O2 Delivery O2 Flow Rate FiO2 07/20/16 08:13 36.8 80 19 133/84 96 Room Air 07/20/16 08:00 93 Room Air 07/20/16 04:09 36.5 137 18 122/75 93 Room Air 07/20/16 04:00 Nasal Cannula 2.0 07/20/16 03:54 142 122/75 Physical Exam: General- oriented x 3, not in distress, speaks in sentences with no effort Head- atraumatic Eyes- EOMI, anicteric ENT- oropharynx clear Neck- supple, mild JVD, no adenopathy Lungs- mild rales bilateral bases, no wheezes Heart- tachycardic, irregularly irregular rhythm; no murmurs Abdomen- normal bowel sounds, soft, nontender, Extremities- grade 2 lower leg edema, mild warmth/erythema; no calf tenderness Neuro- alert, oriented x 3; no grosss focal neuro deficit Skin- warm & dry Laboratory Results: Last 24 Hours Test 07/19/16 15:01 07/19/16 15:05 07/19/16 20:55 07/19/16 21:10 White Blood Count 8.88 K/uL Red Blood Count 3.96 M/uL Hemoglobin 10.5 g/dL Hematocrit 32.3 % Mean Corpuscular Volume 81.6 fL Mean Corpuscular Hemoglobin 26.5 pg Mean Corpuscular Hemoglobin Concent 32.5 g/dl Platelet Count 227 K/uL Mean Platelet Volume 10.0 fL Neutrophils (%) (Auto) 75.9 % Lymphocytes (%) (Auto) 17.8 % Monocytes (%) (Auto) 4.5 % Eosinophils (%) (Auto) 0.9 % Basophils (%) (Auto) 0.6 % Neutrophils # (Auto) 6.74 K/uL Lymphocytes # (Auto) 1.58 K/uL Monocytes # (Auto) 0.40 K/uL Eosinophils # (Auto) 0.08 K/uL Basophils # (Auto) 0.05 K/uL RDW Standard Deviation 49.3 fL RDW Coefficient of Variation 16.3 % Immature Granulocyte % (Auto) 0.3 % Immature Granulocyte # (Auto) 0.03 K/uL Prothrombin Time 10.8 SECONDS Prothromb Time International Ratio 1.0 Activated Partial Thromboplast Time 25.4 SECONDS Partial Thromboplastin Ratio 1.0 Sodium Level 143 mmol/L Potassium Level 3.5 mmol/L Chloride Level 105 mmol/L Carbon Dioxide Level 26 mmol/L Anion Gap 12.0 mmol/L 18.0 mmol/L Blood Urea Nitrogen 27 mg/dl Creatinine 1.10 mg/dl Est Creatinine Clear Calc Drug Dose 66.0 ml/min Estimated GFR () 60.6 Estimated GFR (Non- 52.3 BUN/Creatinine Ratio 24.9 Random Glucose 148 mg/dl Calcium Level 8.9 mg/dl Magnesium Level 1.7 mg/dl Total Bilirubin 0.4 mg/dl Direct Bilirubin 0.1 mg/dl Aspartate Amino Transf (AST/SGOT) 17 U/L Alanine Aminotransferase (ALT/SGPT) 25 U/L Alkaline Phosphatase 83 U/L Troponin I < 0.015 ng/ml 0.020 ng/ml Pro-B-Type Natriuretic Peptide 1704 pg/ml Total Protein 7.1 gm/dl Albumin 3.4 gm/dl Thyroid Stimulating Hormone (TSH) 2.370 uIu/ml Hepatitis C Antibody Screen NEG Bedside Hemoglobin 11.2 g/dl Bedside Hematocrit 33 % Bedside Sodium 141 mEq/L Bedside Potassium 3.5 mEq/L Bedside Chloride 103 mEq/L Bedside Total CO2 24 mEq/l Bedside Blood Urea Nitrogen 26 mg/dl Bedside Creatinine 1.0 mg/dl Bedside Glucose (other) 155 mg/dl Bedside Ionized Calcium (Elisa) 1.13 mmol/l Bedside Glucose 189 mg/dl Total Creatine Kinase 72 U/L Creatine Kinase MB 1.1 ng/ml Creatine Kinase MB Ratio 1.5 Test 07/20/16 03:01 07/20/16 07:06 07/20/16 07:35 White Blood Count 6.97 K/uL Red Blood Count 3.72 M/uL Hemoglobin 9.8 g/dL Hematocrit 30.1 % Mean Corpuscular Volume 80.9 fL Mean Corpuscular Hemoglobin 26.3 pg Mean Corpuscular Hemoglobin Concent 32.6 g/dl RDW Standard Deviation 47.6 fL RDW Coefficient of Variation 16.0 % Platelet Count 192 K/uL Mean Platelet Volume 9.5 fL Sodium Level 144 mmol/L Potassium Level 3.6 mmol/L Chloride Level 106 mmol/L Carbon Dioxide Level 26 mmol/L Anion Gap 12.0 mmol/L Blood Urea Nitrogen 24 mg/dl Creatinine 1.00 mg/dl Est Creatinine Clear Calc Drug Dose 78.0 ml/min Estimated GFR () 68.0 Estimated GFR (Non- 58.7 BUN/Creatinine Ratio 24.2 Random Glucose 136 mg/dl Estimated Average Glucose 163 mg/dl Hemoglobin A1c 7.3 % Calcium Level 8.7 mg/dl Magnesium Level 1.7 mg/dl Total Creatine Kinase 74 U/L Creatine Kinase MB 1.3 ng/ml Creatine Kinase MB Ratio 1.8 Troponin I < 0.015 ng/ml Bedside Glucose 145 mg/dl Urine Color YELLOW Urine Appearance SL CLOUDY Urine pH 6.0 Urine Specific [place] 1.020 Urine Protein NEG Urine Glucose (UA) NEG Urine Ketones 1+ Urine Occult Blood NEG Urine Nitrite POS Urine Bilirubin NEG Urine Urobilinogen NEG Urine Leukocyte Esterase SMALL Urine RBC 0-4 /hpf Urine WBC 10-30 /hpf Urine Epithelial Cells 5-10 /lpf Urine Bacteria 4+ Urine Hyaline Casts 1-5 /lpf Date/Time Source Procedure Growth Status 07/20/16 07:35 Urine , Clean Catch Urine Culture Pending Received Assessment & Plan 66 year old female with history of DM, HTN, CKD 3, Gout, GI bleed presenting with shortness of breath. ATRIAL FIBRILLATION WITH RVR, NEW ONSET PULMONARY EDEMA - CXR shows cardiomegaly, R base infiltrate; clinically no symptoms of pneumonia ; no fever; no leukocytosis Clinically appears to be volume overloaded; + weight gain, edema, bibasilar crackles; BNP ~1700 - received Lasix 80mg IV one dose diuresing fairly repeat CXR: improving pulmonary edema - Cardiology consulted echo pending - Metoprolol 12.5mg QID and Amiodarone started on Aspirin, No anticoagulation given history of GI bleed, positive hemoccult stool in ER BILATERAL HILAR PROMINENCE IMPRESSION: 1. Improvement in the patchy bibasilar densities. 2. Small bilateral pleural effusions and cardiomegaly persist. 3. Bilateral hilar prominence, unchanged. This could be due to pulmonary vascular congestion versus hilar lymphadenopathy. Recommend follow-up to ensure resolution. -- follow up CXR needed CHRONIC ANEMIA Hg is 10.5; was running 11's in 2014; ran 11 or lower since 2012 Hx severe GIB from peptic ulcer secondary to H pylori in 2012; required transfusion of 5 units at that time for Hg in 4's With hemoccult positive stool in ER Does not appear to be acutely bleeding; ? longstanding slow GIB; at risk for ulcer with recent NSAID and prednisone use, but not having epigastric pain, hematochezia or melena -- Hg slightly lower today no overt signs of GI bleed monitor Protonix daily started HYPERTENSION Takes amlodipine, lisinopril, Lasix at home Amlodipine and Lisinopril held Metoprolol started DM TYPE 2 Hold pioglitazone- metformin Insulin sliding scale coverage Check A1c CKD STAGE III Cr is 1.1; stable at baseline Monitor renal function while on IV Lasix DYSLIPIDEMIA Continue statin DVT PROPHYLAXIS SCD's due to hemoccult positive stool FULL CODE DISPOSITION pending Current Inpatient Medications: Current Inpatient Medications Medications (Trade) Dose Ordered Sig/Scott Route Start Time Stop Time Status Last Admin Dose Admin Acetaminophen (Tylenol Tab) 650 mg Q4H PRN PO 07/19/16 17:30 08/18/16 17:29 Ondansetron HCl (Zofran Inj) 4 mg Q6H PRN IV 07/19/16 17:30 08/18/16 17:29 Nitroglycerin (Nitrostat Tab) 0.4 mg UD PRN SL 07/19/16 17:30 08/18/16 17:29 Metoprolol Tartrate (Lopressor Iv) 5 mg Q6 PRN IV 07/19/16 17:45 08/18/16 17:44 07/20/16 03:54 5 MG Allopurinol (Zyloprim Tab) 200 mg HS PO 07/19/16 21:00 08/18/16 20:59 07/19/16 20:59 200 MG Aspirin (Ecotrin Tab) 81 mg DAILY PO 07/20/16 09:00 08/19/16 08:59 07/20/16 08:05 81 MG Multivitamins (Multivitamin Tab) 1 tab DAILY PO 07/20/16 09:00 08/19/16 08:59 07/20/16 08:05 1 TAB Tramadol HCl (Ultram Tab) 100 mg QID PRN PO 07/19/16 18:00 08/18/16 17:59 Cholecalciferol (Vitamin D Tab) 5,000 inter.unit DAILY PO 07/20/16 09:00 08/19/16 08:59 07/20/16 08:05 5,000 INTER.UNIT Pantoprazole Sodium (Protonix Tab) 40 mg QAM PO 07/20/16 09:00 08/19/16 08:59 07/20/16 08:05 40 MG Insulin Aspart (novoLOG ASPART) SLIDING SCALE If C... ACHS SC 07/19/16 21:00 08/18/16 20:59 07/20/16 08:02 6 UNITS Glucose (Glucose 40% Gel) 15-30 GRAMS 15 GRAMS... UD PRN PO 07/19/16 18:15 08/18/16 18:14 Glucose (Glucose Chew Tab) 4-8 Tablets 4 Tabl... UD PRN PO 07/19/16 18:15 08/18/16 18:14 Dextrose (Dextrose 50% 50ML Syringe) 25-50ML OF 50% DW IV FOR... UD PRN IV 07/19/16 18:15 08/18/16 18:14 Glucagon (Glucagon Inj) 1 mg UD PRN SQ 07/19/16 18:15 08/18/16 18:14 Magnesium Oxide (Mag-Ox Tab) 400 mg BID PO 07/20/16 21:00 08/19/16 20:59 Metoprolol Tartrate (Lopressor Tab) 12.5 mg QID PO 07/20/16 09:00 08/19/16 08:59 Simvastatin 10 mg 10 mg PM PO 07/20/16 21:00 08/19/16 20:59 Amiodarone HCL/ Dextrose 200 ml @ 33.3 mls/hr Q6H1M IV 07/20/16 09:30 07/20/16 15:30 07/20/16 10:04 33.3 MLS/HR Amiodarone HCL/ Dextrose (Nexterone / D5w) 200 ml @ 16.7 mls/hr [id number] IV 07/20/16 15:31 08/19/16 15:30
--- NOTE | 2016-07-20 12:05 | ECHOCARDIOGRAM REPORT ---
*NOTICE TO RECEIVING [employer] This information is strictly Confidential and protected under [place] law. [place] law prohibits you from making any further disclosure of this information unless further disclosure is expressly permitted by the written consent of the person to whom it pertains or is authorized by law. A general authorization for the release of medical or other information is not sufficient for this purpose. Hospital accepts no responsibility if the information is made available to any other person, INCLUDING THE PATIENT. Interpretation Summary * Name: Alex GRISSOM Study Date: 07/20/2016 06:58 AM BP: 133/84 mmHg * Patient Location: C.2T\S\S242\S\2 HR: 80 * : 1950 (M/d/yyy) Gender: Female Height: 62 in * Age: 66 yrs Ethnicity: [place] Weight: 292 lb * Ordering Physician: Namoi Howard * Performed By: Kayce Coffey RDCS * * Reason For Study: Atrial fibrillation * BSA: 2.2 m2 * -- Conclusions -- * Atrial fibrillaiton with rapid ventricular rate was present during the echocardiogram examination. * The study was technically difficult due to patient characteristics, poor acoustic windows. * The left ventricular wall motion is normal. * The qualitative left ventricular ejection fraction =55% (normal). * The right ventricle is not well visualized. * The right ventricle is mildly dilated. * The right ventricular systolic function is mildly reduced. * The left atrium is mildly dilated. * There is mild mitral annular calcification. * The posterior mitral valve leaflet is mildly calcified with associated calcification of the subvalvular apparatus. * There is no mitral valve stenosis. * There is mild mitral regurgitation. * Dilated inferior vena cava with reduced collapsability with sniff indicates an elevated right atrial pressure of 15 mmHg * The tricuspid regurgitation jet is not sufficent to allow culculation of the pulmonary artery systolic pressure. * Pulmonary hypertension is suspected based on 2 D findings. Procedure Details * A complete two-dimensional transthoracic echocardiogram was performed (2D, M-mode, Doppler and color flow Doppler). Left Ventricle * The left ventricle is normal in size. * There is normal left ventricular wall thickness. * Left ventricular systolic function is normal. * The qualitative left ventricular ejection fraction =55% (normal). * The left ventricular wall motion is normal. Right Ventricle * The right ventricle is not well visualized. * The right ventricle is mildly dilated. * The right ventricular systolic function is mildly reduced. Atria * The left atrium is mildly dilated. * Right atrial size is normal. * There is no evidence of atrial septal defect, but resolution does not allow assessment for a patent foramen ovale. Mitral Valve * There is mild mitral annular calcification. * The posterior mitral valve leaflet is mildly calcified with associated calcification of the subvalvular apparatus. * There is no mitral valve stenosis. * There is mild mitral regurgitation. Tricuspid Valve * The tricuspid valve is normal. * There is no tricuspid stenosis. * Significant tricuspid regurgitation is absent. Aortic Valve * The aortic valve is trileaflet. * Aortic stenosis is absent. * There is no significant aortic regurgitation. Pulmonic Valve * The pulmonary valve is not well seen, but the Doppler examination is normal without significant regurgitation or stenosis. Great Vessels * The aortic root and proximal ascending aorta are normal sized. Pericardium/Pleural * There is no pericardial effusion. Great Vessels * The inferior vena cava is mildly dilated. * Dilated inferior vena cava with reduced collapsability with sniff indicates an elevated right atrial pressure of 15 mmHg Left Ventricular Diastolic Function * LV diastolic dysfunction is present based on the left atrial enlargement, but is not graded due to the presence of underlying atrial fibrillation. MMode 2D Measurements and Calculations IVSd 1.2 cm LVIDd 4.8 cm LVIDs 3.5 cm LVPWd 1.4 cm IVS/LVPW 0.88 FS 26.6 % EDV(Teich) 108.2 ml ESV(Teich) 51.9 ml EF(Teich) 52.0 % EDV(cubed) 111.5 ml ESV(cubed) 44.0 ml EF(cubed) 60.5 % LV mass(C)d 244.7 grams LV mass(C)dI 109.0 grams/m\S\2 CO(Teich) 5.7 l/min CI(Teich) 2.5 l/min/m\S\2 SV(Teich) 56.3 ml SI(Teich) 25.1 ml/m\S\2 CO(cubed) 6.8 l/min CI(cubed) 3.0 l/min/m\S\2 SV(cubed) 67.5 ml SI(cubed) 30.1 ml/m\S\2 Ao root diam 2.6 cm Ao root area 5.3 cm\S\2 ACS 1.7 cm LA dimension 4.0 cm LA/Ao 1.5 LVAd ap4 28.3 cm\S\2 LVLd ap4 7.8 cm EDV(MOD-sp4) 82.0 ml LVAs ap4 17.1 cm\S\2 LVLs ap4 6.5 cm ESV(MOD-sp4) 37.0 ml EF(MOD-sp4) 54.9 % LVAd ap2 23.8 cm\S\2 LVLd ap2 7.5 cm EDV(MOD-sp2) 65.0 ml LVAs ap2 15.1 cm\S\2 LVLs ap2 6.6 cm ESV(MOD-sp2) 29.0 ml EF(MOD-sp2) 55.4 % CO(MOD-sp4) 4.5 l/min CI(MOD-sp4) 2.0 l/min/m\S\2 SV(MOD-sp4) 45.0 ml SI(MOD-sp4) 20.0 ml/m\S\2 CO(MOD-sp2) 3.6 l/min CI(MOD-sp2) 1.6 l/min/m\S\2 SV(MOD-sp2) 36.0 ml SI(MOD-sp2) 16.0 ml/m\S\2 Doppler Measurements and Calculations MV E max masha 128.3 cm/sec Ao V2 max 205.1 cm/sec Ao max PG 16.8 mmHg Ao max PG (full) 12.9 mmHg LV V1 max PG 3.9 mmHg LV V1 max 99.2 cm/sec PA V2 max 122.2 cm/sec PA max PG 6.0 mmHg
[2016-07-20] MEDS ORDERED: METOPROLOL TARTRATE 25 MG TAB PO STA (12:15)
[2016-07-20] MEDS: AMIODARONE / D5W 200 ML IV SCH (16:32)
[2016-07-20] MEDS: MAGNESIUM OXIDE 400 MG TAB PO SCH (20:38)
[2016-07-20] MEDS: ALLOPURINOL 100 MG TAB PO SCH (20:39)
[2016-07-20] MEDS ORDERED: WARFARIN SOD 5 MG TAB PO ONE (21:00)
[2016-07-20] MEDS: SIMVASTATIN 10 MG TAB PO SCH (21:26)
[2016-07-21] VITALS (8 sets, daily range): BP systolic 109–155; BP diastolic 77–91; PULSE 99–120; TEMP 36.5–37; O2SAT 91–93
[2016-07-21] MEDS: AMIODARONE / D5W 200 ML IV SCH ×5 (03:28→18:28)
--- NOTE | 2016-07-21 06:24 | Clinical Documentation Query ---
JOSÉ MIGUEL Longo : CLINICAL DOCUMENTATION QUERIES QUERY 1 OF 2 Patient is a 66 year old female admitted for the evaluation and treatment of new onset atrial fibrillation with RVR. Documentation includes "pulmonary edema", not otherwise specified. She is being monitored on telemetry, seen in consultation by cardiology, had an echocardiogram, and recieved IV Lasix. Acuity cannot be assumed by the professional human resources associate. As appropriate, consider documentation as suggested below as this impacts DRG assignment. In your clinical opinion is this patient being managed for: ( + ) Acute pulmonary edema ( ) Other explanation of clinical findings (Please Explain) ( ) Unable to determine (Please Define) ( ) Need to Discuss ( ) Not Agree The medical record reflects the following clinical findings, treatment, and risk factors. Clinical Indicators: As above Treatment: IV Lasix, I/O, cardiology consultation, daily weights, telemetry Risk Factors: Atrial fibrillation with RVR QUERY 2 OF 2 Patient notes a 10-15 pound weight gain and an increase in bilateral lower extremity edema in the setting of dyspnea on exertion noted to have started 5 days prior to admission in the setting of new onset atrial fibrillation with RVR. Echocardiogram demonstrated a mildly reduced RV systolic function. LVEF within normal limits. In your clinical opinion is this patient being managed for: ( ) Acute RV systolic congestive heart failure ( ) Other explanation of clinical findings (Please Explain) (+ ) Unable to determine (Please Define) ( ) Need to Discuss ( ) Not Agree The medical record reflects the following clinical findings, treatment, and risk factors. Clinical Indicators: As above Treatment: IV Lasix, Lopressor, Amiodarone Risk Factors: Atrial fibrillation with RVR Please clarify and document your clinical opinion in the progress notes and discharge summary. Terms such as "probable", "suspected", "likely", "questionable", "possible", or "still to be ruled out" are acceptable. IF IN AGREEMENT, YOU MUST DOCUMENT ABOVE DIAGNOSTIC STATEMENT IN DAILY PROGRESS NOTES AND DISCHARGE SUMMARY. This document is not part of the patient's record. Thank You, Francisco Coelho, RN [phone]
[2016-07-21 07:15] LABS: HEMATOCRIT 32.2 % (37-47); MEAN CELL VOLUME 81.9 fL (80-100); MEAN CORPUSCULAR HEMOGLOBIN 26.5 pg (25-34); MEAN CORPUSCULAR HGB CONC 32.3 g/dl (32-36); MEAN PLATELET VOLUME 10.5 fL (7.4-10.4); PLATELET COUNT 194 K/uL (130-400); RED BLOOD COUNT 3.93 M/uL (4.2-5.4); WHITE BLOOD COUNT 7.69 K/uL (4.8-10.8)
[2016-07-21 07:21] LABS: PROTHROMBIN TIME (PATIENT) 10.9 SECONDS (9.0-12.0)
[2016-07-21] MEDS: METOPROLOL TARTRATE 1 MG/ML VIAL IV PRN (07:27)
[2016-07-21] MEDS: TRAMADOL HCL 50 MG TAB PO PRN (07:33)
[2016-07-21] MEDS: MAGNESIUM OXIDE 400 MG TAB PO SCH ×2 (07:34→20:50)
[2016-07-21] MEDS: PANTOprazole SOD 40 MG TAB PO SCH (07:34)
[2016-07-21] MEDS: METOPROLOL TARTRATE 25 MG TAB PO SCH (07:34)
[2016-07-21] MEDS: MULTIVITAMIN TAB PO SCH (07:34)
[2016-07-21] MEDS: CHOLECALCIFEROL 1000 INTER.UNIT TAB PO SCH (07:34)
[2016-07-21 07:44] LABS: BUN/CREATININE RATIO 22.9 (10-20); CREATININE 0.93 mg/dl (0.60-1.20); POTASSIUM 3.7 mmol/L (3.5-5.1)
[2016-07-21] MEDS: INSULIN ASPART 100 UNITS/ML 3 ML PEN SC SCH ×4 (07:44→20:51)
[2016-07-21] MEDS: ASPIRIN 81 MG ECTAB PO SCH (08:53)
--- NOTE | 2016-07-21 09:12 | Progress Note ---
Internal Med Progress Note Date of Service: Jul 21, 2016. Provider Documentation: SUBJECTIVE: Patient c/o SOB with no improvement since admission. Leg swelling bilaterally same as before. No palpitations, chest pain, cough, fever, chills, nausea, vomiting, urinary burning/frequency. Tele- Atrial fibrillation with RVR with HR in 120s OBJECTIVE: Vital Signs-as noted below Exam: General- oriented x 3, not in distress, speaks in sentences with no effort Neck- supple Lungs- mild rales bilateral bases, no wheezes Heart- tachycardic, irregularly irregular rhythm; no murmurs Extremities- grade 2 lower leg edema, mild warmth/erythema; no calf tenderness Neuro- alert, oriented x 3; no gross focal neuro deficit Lab data as noted below. ASSESSMENT & PLAN: 66 year old female with history of DM, HTN, CKD 3, Gout, GI bleed presenting with shortness of breath secondary to new onset Atrial fibrillation with RVR, acute pulmonary edema ATRIAL FIBRILLATION WITH RVR, NEW ONSET : ACUTE PULMONARY EDEMA: Clinically appears to be volume overloaded; + weight gain, edema, bibasilar crackles; BNP ~1700 - CXR shows cardiomegaly, R base infiltrate; clinically no symptoms of pneumonia; no fever; no leukocytosis. HR continues to be up - 120s -Received IV Lasix 80 mg x 1 dose. IV Metoprolol x 2 doses, but BP did drop so held IVs -On Metoprolol 25 mg PO QID, IV Amiodarone drip started on 07/20 due to low BP -Anticoagulation: Hx of severe GI bleed in past, FOBT + ve possibly has chronic GI bleeding with anemia. Aspirin 81 mg to be continued -Echo- A fib with RVR, LVEF=55%, LA -mild dilation, Rt ventricular function- slightly low, Mild MR, Pulmonary hypertension suspected ; Troponin x 3 negative PLAN: HR continues to be elevated- A fib with RVR with 120s. Will need more diuresing. BP stable today. Will discuss with Cardiology. UTI- ECOLI UA +VE, Urine cx= E coli -Will start Ciprofloxacin 500 mg PO BID (Day 1) - QTC today 493- monitor -Follow up c/s (per patient she has even tolerated amoxicillin, cefalosporins in past) CHRONIC ANEMIA Hg is 10.5; was running 11's in 2014; ran 11 or lower since 2012 Hx severe GIB from peptic ulcer secondary to H pylori in 2013; required transfusion of 5 units at that time for Hg in 4's FOBT positive in ER Does not appear to be acutely bleeding, Likely longstanding slow GIB; at risk for ulcer with recent NSAID and prednisone use, but not having epigastric pain, hematochezia or melena -No overt signs of GI bleeding -Will continue with Aspirin 81 mg daily with benefits > risks given A fib on amiodarone and no signs of overt GI bleeding. Will monitor H & H closely -Continue with protonix daily BILATERAL HILAR PROMINENCE IMPRESSION: 1. Improvement in the patchy bibasilar densities. 2. Small bilateral pleural effusions and cardiomegaly persist. 3. Bilateral hilar prominence, unchanged. This could be due to pulmonary vascular congestion versus hilar lymphadenopathy. Recommend follow-up to ensure resolution. -- follow up CXR needed outpatient HYPERTENSION BP was borderline low on presentation -Held amlodipine, lisinopril, Lasix at home (takes 80 mg 5 days/week) -Monitor while on lasix /Metoprolol DM TYPE 2 -Hold pioglitazone- metformin -Insulin sliding scale coverage -Checked A1c -7.3 CKD STAGE III Cr is 1.1; stable at baseline -Monitor renal function while on IV Lasix DYSLIPIDEMIA -Continue statin (decreased simvastatin from 20 mg to 10 mg per cardiology) MORBID OBESITY DVT PROPHYLAXIS -SCD's due to hemoccult positive stool FULL CODE DISPOSITION Medical mx in progress Expected discharge home when stable Vital Signs: Date Time Temp Pulse Resp B/P Pulse Ox O2 Delivery O2 Flow Rate FiO2 07/21/16 07:41 36.5 116 18 155/91 92 Room Air 07/21/16 07:27 125 146/94 07/21/16 04:00 92 Room Air 07/21/16 04:00 36.5 120 20 122/77 93 Room Air 07/21/16 00:00 36.6 110 20 124/85 92 Room Air 07/21/16 00:00 91 Room Air 07/20/16 20:03 36.3 51 20 116/68 92 Room Air 07/20/16 20:00 Room Air 07/20/16 16:00 91 Room Air 07/20/16 15:21 36.7 120 22 149/89 91 Room Air 07/20/16 12:16 37.1 130 18 135/82 92 Room Air 07/20/16 12:00 95 Room Air 07/20/16 10:29 135 119/76 Lab Results: Results Past 24 Hours Test 07/20/16 11:25 07/20/16 15:58 07/20/16 20:34 07/21/16 06:09 Range/Units Bedside Glucose 203 151 145 187 70-90 mg/dl Test 07/21/16 06:45 Range/Units White Blood Count 7.69 4.8-10.8 K/uL Red Blood Count 3.93 4.2-5.4 M/uL Hemoglobin 10.4 12.0-16.0 g/dL Hematocrit 32.2 37-47 % Mean Corpuscular Volume 81.9 80-100 fL Mean Corpuscular Hemoglobin 26.5 25-34 pg Mean Corpuscular Hemoglobin Concent 32.3 32-36 g/dl RDW Standard Deviation 48.7 36.4-46.3 fL RDW Coefficient of Variation 16.1 11.5-14.5 % Platelet Count 194 130-400 K/uL Mean Platelet Volume 10.5 7.4-10.4 fL Prothrombin Time 10.9 9.0-12.0 SECONDS Prothromb Time International Ratio 1.0 0.9-1.1 Sodium Level 141 136-145 mmol/L Potassium Level 3.7 3.5-5.1 mmol/L Chloride Level 106 98-107 mmol/L Carbon Dioxide Level 25 21-32 mmol/L Anion Gap 10.0 3-11 mmol/L Blood Urea Nitrogen 21 7-18 mg/dl Creatinine 0.93 0.60-1.20 mg/dl Est Creatinine Clear Calc Drug Dose 85.4 ml/min Estimated GFR () 74.2 Estimated GFR (Non- 64.0 BUN/Creatinine Ratio 22.9 10-20 Random Glucose 174 70-99 mg/dl Calcium Level 9.0 8.5-10.1 mg/dl Magnesium Level 2.0 1.8-2.4 mg/dl
[2016-07-21] MEDS ORDERED: POTASSIUM CHLORIDE 10 MEQ TABCR PO STA (09:50)
--- NOTE | 2016-07-21 10:06 | Cardiology Follow-Up ---
Subjective General Date of Service: Jul 21, 2016. Chief Complaint: FOLLOW UP ATRIAL FIBRILLATION RVR, EXERTIONAL SOB Pt evaluation today including: conversation w/ patient, physical exam History of Present Illness The patient is a 66 year old female seen in follow up. She remains in AF , RVR despite PO metoprolol and IV amiodarone, V rates 130- 140s at rest. SOB with minimal walking to the bathroom. Allergies Coded Allergies: Penicillins (Verified Allergy, Intermediate, URTICARIA; PER PT, CAN TAKE AMOXICILLIN, 07/19/16) Erythromycin (Verified Adverse Reaction, Mild, GI UPSET, 07/19/16) Social History Smoking Status: Never Smoker Hx Tobacco Use In Past Year?: No Hx Alcohol Use - Type And Amou: Yes (occasional mixed drink or glass of wine) Hx Substance Use - Type And Am: No Problem List Medical Problems: (1) Acute congestive heart failure Status: Acute (2) Heme positive stool Status: Acute Physical Exam Vital Signs Last Vital Signs Documentation Date Time Temp Pulse Resp B/P Pulse Ox O2 Delivery O2 Flow Rate FiO2 07/21/16 08:00 Room Air 07/21/16 07:41 36.5 116 18 155/91 92 07/20/16 04:00 2.0 Physical Exam Constitutional: General Apperance: obese Neck: supple Lungs: Auscultation: pertinent finding (decrease breathsounds at the bases) Cardiovascular: Heart Auscultation: no murmurs, tachycardia, irregular rate rhythm Extremities: pertinent finding (1+ bilateral lower extremity edema ) Neurologic: Gait & Station: pertinent finding (no focal deficits ) Assessment and Plan Assessment and Plan Impression: 66 year old female 1. Symptomatic AF ,RVR 2. Volume overload, normal LVEF, diastolic dysfunction 3. Mild hypokalemia 4. Chronic anemia, h/o GI bleed, heme occult positive stool Plan: Increase amiodarone IV dose to 1 mg/minute. Increase metoprolol tartrate to 50 mg BID. Add Diltiazem CD 120 mg daily. Furosemide 40 mg IV x 1. Replace potassium. Cancelled ciprofloxacin due to potential for interaction with amiodarone. Will cautiously add coumadin (without bridge therapy) for stroke prevention.Monitor Hgb. Laboratory Results Last 24 Hours Test 07/20/16 11:25 07/20/16 15:58 07/20/16 20:34 07/21/16 06:09 Bedside Glucose 203 mg/dl 151 mg/dl 145 mg/dl 187 mg/dl Test 07/21/16 06:45 White Blood Count 7.69 K/uL Red Blood Count 3.93 M/uL Hemoglobin 10.4 g/dL Hematocrit 32.2 % Mean Corpuscular Volume 81.9 fL Mean Corpuscular Hemoglobin 26.5 pg Mean Corpuscular Hemoglobin Concent 32.3 g/dl RDW Standard Deviation 48.7 fL RDW Coefficient of Variation 16.1 % Platelet Count 194 K/uL Mean Platelet Volume 10.5 fL Prothrombin Time 10.9 SECONDS Prothromb Time International Ratio 1.0 Sodium Level 141 mmol/L Potassium Level 3.7 mmol/L Chloride Level 106 mmol/L Carbon Dioxide Level 25 mmol/L Anion Gap 10.0 mmol/L Blood Urea Nitrogen 21 mg/dl Creatinine 0.93 mg/dl Est Creatinine Clear Calc Drug Dose 85.4 ml/min Estimated GFR () 74.2 Estimated GFR (Non- 64.0 BUN/Creatinine Ratio 22.9 Random Glucose 174 mg/dl Calcium Level 9.0 mg/dl Magnesium Level 2.0 mg/dl
[2016-07-21] MEDS ORDERED: FUROSEMIDE INJ 40 MG in SYRINGE 0 ML IV SCH (11:00)
[2016-07-21] MEDS ORDERED: DILTIAZEM HCL 120 MG CAPCR PO ONE (11:00)
[2016-07-21] MEDS ORDERED: METOPROLOL TARTRATE 50 MG TAB PO ONE (11:00)
[2016-07-21] MEDS ORDERED: WARFARIN SOD 5 MG TAB PO SCH (16:00)
[2016-07-21] MEDS: SIMVASTATIN 10 MG TAB PO SCH (20:50)
[2016-07-21] MEDS: CEPHALEXIN MONOHYDRATE 500 MG CAP PO SCH (20:50)
[2016-07-21] MEDS: METOPROLOL TARTRATE 50 MG TAB PO SCH (20:50)
[2016-07-21] MEDS: ALLOPURINOL 100 MG TAB PO SCH (20:50)
[2016-07-21] MEDS ORDERED: CIPROFLOXACIN 500 MG TAB PO SCH (21:00)
[2016-07-22] VITALS (8 sets, daily range): BP systolic 112–144; BP diastolic 62–84; PULSE 101–126; TEMP 36.5–37; O2SAT 91–95
[2016-07-22] MEDS: AMIODARONE / D5W 200 ML IV SCH ×6 (00:28→21:40)
[2016-07-22] MEDS: TRAMADOL HCL 50 MG TAB PO PRN ×3 (07:46→23:57)
[2016-07-22 07:51] LABS: HEMATOCRIT 36.3 % (37-47); MEAN CELL VOLUME 82.3 fL (80-100); MEAN CORPUSCULAR HEMOGLOBIN 26.1 pg (25-34); MEAN CORPUSCULAR HGB CONC 31.7 g/dl (32-36); MEAN PLATELET VOLUME 10.4 fL (7.4-10.4); PLATELET COUNT 224 K/uL (130-400); RED BLOOD COUNT 4.41 M/uL (4.2-5.4); WHITE BLOOD COUNT 8.11 K/uL (4.8-10.8)
[2016-07-22] MEDS: INSULIN ASPART 100 UNITS/ML 3 ML PEN SC SCH ×4 (07:53→20:03)
[2016-07-22 08:00] LABS: PROTHROMBIN TIME (PATIENT) 11.1 SECONDS (9.0-12.0)
[2016-07-22 08:26] LABS: BUN/CREATININE RATIO 22.6 (10-20); CALCIUM 9.3 mg/dl (8.5-10.1); POTASSIUM 3.8 mmol/L (3.5-5.1)
[2016-07-22] MEDS: POTASSIUM CHLORIDE 20 MEQ TABCR PO SCH (08:45)
[2016-07-22] MEDS: ASPIRIN 81 MG ECTAB PO SCH (08:45)
[2016-07-22] MEDS: CEPHALEXIN MONOHYDRATE 500 MG CAP PO SCH ×2 (08:45→20:05)
[2016-07-22] MEDS: MAGNESIUM OXIDE 400 MG TAB PO SCH ×2 (08:46→20:05)
[2016-07-22] MEDS: METOPROLOL TARTRATE 50 MG TAB PO SCH ×3 (08:46→20:03)
[2016-07-22] MEDS: PANTOprazole SOD 40 MG TAB PO SCH (08:46)
[2016-07-22] MEDS: MULTIVITAMIN TAB PO SCH (08:46)
[2016-07-22] MEDS: CHOLECALCIFEROL 1000 INTER.UNIT TAB PO SCH (08:47)
[2016-07-22] MEDS ORDERED: DILTIAZEM HCL 120 MG CAPCR PO SCH (09:00)
--- NOTE | 2016-07-22 10:45 | Progress Note ---
Internal Med Progress Note Date of Service: Jul 22, 2016. Provider Documentation: SUBJECTIVE: Patient c/o SOB with no improvement since admission. Leg swelling bilaterally same as before. No palpitations, chest pain, cough, fever, chills, nausea, vomiting, urinary burning/frequency. Tele- Atrial fibrillation with RVR with HR in 110- 120s OBJECTIVE: Vital Signs-as noted below Exam: General- oriented x 3, not in distress, speaks in sentences with no effort Neck- supple Lungs- mild rales bilateral bases, no wheezes Heart- tachycardic, irregularly irregular rhythm; no murmurs Extremities- grade 2 lower leg edema, mild warmth/erythema; no calf tenderness Neuro- alert, oriented x 3; no gross focal neuro deficit Lab data as noted below. ASSESSMENT & PLAN: 66 year old female with history of DM, HTN, CKD 3, Gout, GI bleed presenting with shortness of breath secondary to new onset Atrial fibrillation with RVR, acute pulmonary edema ATRIAL FIBRILLATION WITH RVR, NEW ONSET : ACUTE PULMONARY EDEMA: Clinically appears to be volume overloaded; + weight gain, edema, bibasilar crackles; BNP ~1700 - CXR shows cardiomegaly, R base infiltrate; clinically no symptoms of pneumonia; no fever; no leukocytosis. HR continues to be up - 120s -Received IV Lasix 80 mg x 1 dose, Lasix 40 mg IV x 1 dose on 07/21. -On Metoprolol 50 mg PO BID, Diltiazem 120 mg daily (added on 07/21/16), IV Amiodarone drip started on 07/20 -Anticoagulation: Coumadin started on 07/21/16 in spite of risk of bleeding as may need cardioversion in future. Hx of severe GI bleeding in past, FOBT + ve possibly has chronic GI bleeding with anemia. -Echo- A fib with RVR, LVEF=55%, LA -mild dilation, Rt ventricular function- slightly low, Mild MR, Pulmonary hypertension suspected ; Troponin x 3 negative PLAN: HR continues to be elevated- A fib with RVR with 110-120s. Will defer mx to Cardiology. UTI- ECOLI UA +VE, Urine cx= E coli -On Kelfex BID (Day 2/5) -Follow up c/s (per patient she has even tolerated amoxicillin, cefalosporins in past) CHRONIC ANEMIA Hg is 10.5; was running 11's in 2014; ran 11 or lower since 2012 Hx severe GIB from peptic ulcer secondary to H pylori in 2012; required transfusion of 5 units at that time for Hg in 4's FOBT positive in ER; Repeat FOBT pending Does not appear to be acutely bleeding, Likely longstanding slow GIB; at risk for ulcer with recent NSAID and prednisone use, but not having epigastric pain, hematochezia or melena -No overt signs of GI bleeding -Started on Coumadin as may require cardioversion in future. Will monitor closely. -Continue with protonix daily BILATERAL HILAR PROMINENCE IMPRESSION: 1. Improvement in the patchy bibasilar densities. 2. Small bilateral pleural effusions and cardiomegaly persist. 3. Bilateral hilar prominence, unchanged. This could be due to pulmonary vascular congestion versus hilar lymphadenopathy. Recommend follow-up to ensure resolution. -- follow up CXR needed outpatient HYPERTENSION BP was borderline low on presentation -Held amlodipine, lisinopril, Lasix at home (takes 80 mg 5 days/week) -Monitor while on lasix /Metoprolol DM TYPE 2 -Hold pioglitazone- metformin -Insulin sliding scale coverage -Checked A1c -7.3 CKD STAGE III Cr is 1.1; stable at baseline -Monitor renal function while on IV Lasix DYSLIPIDEMIA -Continue statin (decreased simvastatin from 20 mg to 10 mg per cardiology) MORBID OBESITY DVT PROPHYLAXIS -SCD's due to hemoccult positive stool FULL CODE DISPOSITION Medical mx in progress- continue with tele monitoring Expected discharge home when stable Vital Signs: Date Time Temp Pulse Resp B/P Pulse Ox O2 Delivery O2 Flow Rate FiO2 07/22/16 08:12 36.6 126 20 119/84 95 Room Air 07/22/16 04:00 Room Air 07/22/16 03:00 36.5 104 20 144/82 92 Room Air 07/22/16 00:01 Room Air 07/21/16 23:02 36.5 110 20 131/83 91 Room Air 07/21/16 20:00 91 Room Air 07/21/16 19:21 37.0 112 18 115/82 91 Room Air 07/21/16 16:00 Room Air 07/21/16 15:54 37.0 116 20 126/89 92 Room Air 07/21/16 12:00 Room Air 07/21/16 11:54 36.6 99 18 109/77 92 Room Air Lab Results: Results Past 24 Hours Test 07/21/16 11:36 07/21/16 16:05 07/21/16 20:47 07/22/16 06:15 Range/Units Bedside Glucose 194 176 132 189 70-90 mg/dl Test 07/22/16 07:37 Range/Units White Blood Count 8.11 4.8-10.8 K/uL Red Blood Count 4.41 4.2-5.4 M/uL Hemoglobin 11.5 12.0-16.0 g/dL Hematocrit 36.3 37-47 % Mean Corpuscular Volume 82.3 80-100 fL Mean Corpuscular Hemoglobin 26.1 25-34 pg Mean Corpuscular Hemoglobin Concent 31.7 32-36 g/dl RDW Standard Deviation 48.6 36.4-46.3 fL RDW Coefficient of Variation 16.1 11.5-14.5 % Platelet Count 224 130-400 K/uL Mean Platelet Volume 10.4 7.4-10.4 fL Prothrombin Time 11.1 9.0-12.0 SECONDS Prothromb Time International Ratio 1.0 0.9-1.1 Sodium Level 140 136-145 mmol/L Potassium Level 3.8 3.5-5.1 mmol/L Chloride Level 105 98-107 mmol/L Carbon Dioxide Level 25 21-32 mmol/L Anion Gap 10.0 3-11 mmol/L Blood Urea Nitrogen 23 7-18 mg/dl Creatinine 1.00 0.60-1.20 mg/dl Est Creatinine Clear Calc Drug Dose 78.6 ml/min Estimated GFR () 68.0 Estimated GFR (Non- 58.7 BUN/Creatinine Ratio 22.6 10-20 Random Glucose 176 70-99 mg/dl Calcium Level 9.3 8.5-10.1 mg/dl Microbiology Results 07/21/16 C.difficile Toxin B Gene (PCR) - Final, Complete No C. difficile toxin B gene detected 07/21/16 Shiga Toxin Test, Received Pending 07/21/16 Stool Culture, Received Pending
--- NOTE | 2016-07-22 10:53 | Cardiology Follow-Up ---
Subjective General Date of Service: Jul 22, 2016. Chief Complaint: FOLLOW UP ATRIAL FIBRILLATION RVR, EXERTIONAL SOB Pt evaluation today including: conversation w/ patient, physical exam History of Present Illness The patient is a 66 year old female seen in follow up. Pt still comfortable in chair but short of breath with minimal activity such as walking to rest room. Telemetry reveals continued AF , RVR 130-140 bpm, brief 2 second pauses at 2 am , that look like conversion pauses, but then pt reverted to AF. Allergies Coded Allergies: Penicillins (Verified Allergy, Intermediate, URTICARIA; PER PT, CAN TAKE AMOXICILLIN, 07/19/16) Erythromycin (Verified Adverse Reaction, Mild, GI UPSET, 07/19/16) Social History Smoking Status: Never Smoker Hx Tobacco Use In Past Year?: No Hx Alcohol Use - Type And Amou: Yes (occasional mixed drink or glass of wine) Hx Substance Use - Type And Am: No Problem List Medical Problems: (1) Acute congestive heart failure Status: Acute (2) Heme positive stool Status: Acute Physical Exam Vital Signs Last Vital Signs Documentation Date Time Temp Pulse Resp B/P Pulse Ox O2 Delivery O2 Flow Rate FiO2 07/22/16 08:12 36.6 126 20 119/84 95 Room Air 07/20/16 04:00 2.0 Physical Exam Constitutional: General Apperance: obese Neck: supple Lungs: Auscultation: pertinent finding (decrease breathsounds at the bases) Cardiovascular: Heart Auscultation: no murmurs, tachycardia, irregular rate rhythm Extremities: pertinent finding (1+ bilateral lower extremity edema ) Neurologic: Gait & Station: pertinent finding (no focal deficits ) Assessment and Plan Assessment and Plan Impression: 66 year old female 1. Symptomatic AF ,RVR 2. Volume overload, normal LVEF, diastolic dysfunction 3. Mild hypokalemia 4. Chronic anemia, h/o GI bleed, heme occult positive stool Plan: Continue IV amiodarone, Increase metoprolol to 50 mg TID. Continue oral diltiazem CD at 120 mg daily. Bumex IV, spironolactone, KCL supplement. Coumadin (without bridge therapy) for stroke prevention.Monitor Hgb cautiously. Will likely required RASHID CV once INR is at goal. Laboratory Results Last 24 Hours Test 07/21/16 11:36 07/21/16 16:05 07/21/16 20:47 07/22/16 06:15 Bedside Glucose 194 mg/dl 176 mg/dl 132 mg/dl 189 mg/dl Test 07/22/16 07:37 White Blood Count 8.11 K/uL Red Blood Count 4.41 M/uL Hemoglobin 11.5 g/dL Hematocrit 36.3 % Mean Corpuscular Volume 82.3 fL Mean Corpuscular Hemoglobin 26.1 pg Mean Corpuscular Hemoglobin Concent 31.7 g/dl RDW Standard Deviation 48.6 fL RDW Coefficient of Variation 16.1 % Platelet Count 224 K/uL Mean Platelet Volume 10.4 fL Prothrombin Time 11.1 SECONDS Prothromb Time International Ratio 1.0 Sodium Level 140 mmol/L Potassium Level 3.8 mmol/L Chloride Level 105 mmol/L Carbon Dioxide Level 25 mmol/L Anion Gap 10.0 mmol/L Blood Urea Nitrogen 23 mg/dl Creatinine 1.00 mg/dl Est Creatinine Clear Calc Drug Dose 78.6 ml/min Estimated GFR () 68.0 Estimated GFR (Non- 58.7 BUN/Creatinine Ratio 22.6 Random Glucose 176 mg/dl Calcium Level 9.3 mg/dl
[2016-07-22] MEDS ORDERED: BUMETANIDE IV 1 MG in SYRINGE 0 ML IV ONE (11:00)
[2016-07-22] MEDS ORDERED: SPIRONOLACTONE 25 MG TAB PO ONE (11:00)
[2016-07-22] MEDS: WARFARIN SOD 7.5 MG TAB PO SCH (16:04)
[2016-07-22] MEDS: ALLOPURINOL 100 MG TAB PO SCH (20:04)
[2016-07-22] MEDS: SIMVASTATIN 10 MG TAB PO SCH (20:04)
[2016-07-23] VITALS (9 sets, daily range): BP systolic 112–132; BP diastolic 70–85; PULSE 63–117; TEMP 36.3–36.9; O2SAT 90–94
[2016-07-23 06:06] LABS: HEMATOCRIT 31.5 % (37-47); MEAN CELL VOLUME 81.2 fL (80-100); MEAN CORPUSCULAR HGB CONC 32.1 g/dl (32-36); MEAN PLATELET VOLUME 10.5 fL (7.4-10.4); PLATELET COUNT 230 K/uL (130-400); RED BLOOD COUNT 3.88 M/uL (4.2-5.4); WHITE BLOOD COUNT 7.32 K/uL (4.8-10.8)
[2016-07-23 06:14] LABS: PROTHROMBIN TIME (PATIENT) 11.1 SECONDS (9.0-12.0)
[2016-07-23] MEDS: TRAMADOL HCL 50 MG TAB PO PRN ×2 (06:29→16:01)
[2016-07-23 06:39] LABS: BUN/CREATININE RATIO 26.3 (10-20); CALCIUM 8.5 mg/dl (8.5-10.1)
[2016-07-23] MEDS: AMIODARONE / D5W 200 ML IV SCH ×4 (06:47→21:44)
[2016-07-23] MEDS: INSULIN ASPART 100 UNITS/ML 3 ML PEN SC SCH ×4 (07:48→20:59)
[2016-07-23] MEDS ORDERED: HEPARIN IV LOW DOSE NO BOLUS SCH (08:51)
[2016-07-23] MEDS: SPIRONOLACTONE 25 MG TAB PO SCH (08:55)
[2016-07-23] MEDS: DILTIAZEM HCL 180 MG CAPCR PO SCH (08:57)
[2016-07-23] MEDS: PANTOprazole SOD 40 MG TAB PO SCH (08:57)
[2016-07-23] MEDS: MAGNESIUM OXIDE 400 MG TAB PO SCH ×2 (08:57→20:19)
[2016-07-23] MEDS: METOPROLOL TARTRATE 50 MG TAB PO SCH ×3 (08:57→20:19)
[2016-07-23] MEDS: CEPHALEXIN MONOHYDRATE 500 MG CAP PO SCH ×2 (08:57→20:18)
[2016-07-23] MEDS: MULTIVITAMIN TAB PO SCH (08:57)
[2016-07-23] MEDS: POTASSIUM CHLORIDE 20 MEQ TABCR PO SCH (08:57)
[2016-07-23] MEDS: ASPIRIN 81 MG ECTAB PO SCH (08:57)
[2016-07-23] MEDS: CHOLECALCIFEROL 1000 INTER.UNIT TAB PO SCH (08:58)
[2016-07-23] MEDS ORDERED: BUMETANIDE IV 1 MG in SYRINGE 0 ML IV SCH (09:00)
--- NOTE | 2016-07-23 09:13 | Cardiology Follow-Up ---
Subjective General Date of Service: Jul 23, 2016. Chief Complaint: FOLLOW UP ATRIAL FIBRILLATION RVR, EXERTIONAL SOB History of Present Illness The patient is a 66 year old female seen in follow up. Patient notes she feels as the her dyspnea is worse. Her urine output has not increased despite addition of IV bumex and spironolactone. She remains in AF, RVR. Allergies Coded Allergies: Penicillins (Verified Allergy, Intermediate, URTICARIA; PER PT, CAN TAKE AMOXICILLIN, 07/19/16) Erythromycin (Verified Adverse Reaction, Mild, GI UPSET, 07/19/16) Social History Smoking Status: Never Smoker Hx Tobacco Use In Past Year?: No Hx Alcohol Use - Type And Amou: Yes (occasional mixed drink or glass of wine) Hx Substance Use - Type And Am: No Problem List Medical Problems: (1) Acute congestive heart failure Status: Acute (2) Heme positive stool Status: Acute Physical Exam Vital Signs Last Vital Signs Documentation Date Time Temp Pulse Resp B/P Pulse Ox O2 Delivery O2 Flow Rate FiO2 07/23/16 07:15 36.6 108 20 113/74 93 Room Air 07/20/16 04:00 2.0 Physical Exam Constitutional: General Apperance: obese Neck: supple Lungs: Auscultation: pertinent finding (decrease breathsounds at the bases) Cardiovascular: Heart Auscultation: no murmurs, tachycardia, irregular rate rhythm Extremities: pertinent finding (1+ bilateral lower extremity edema ) Neurologic: Gait & Station: pertinent finding (no focal deficits ) Assessment and Plan Assessment and Plan Impression: 66 year old female 1. Symptomatic AF ,RVR 2. Volume overload, normal LVEF, diastolic dysfunction 3. Chronic anemia, h/o GI bleed, heme occult positive stool 4. Morbid obesity, likely underlying obstructive sleep apnea. Plan: Continue IV amiodarone, metoprolol to 50 mg TID. Continue oral diltiazem CD, dose increased to 180 mg daily. Bumex IV 1 mg BID at 7 am, 1400 daily, spironolactone, KCL supplement. H/ Hct are stable. Will add IV heparin, to coumadin for stroke prophylaxis with caution given anemia, h/o GI bleed. Will likely require RASHID CV once INR is at goal and volume status optimized. Tentatively scheduled for Thursday 07/27 with anesthesia. Obtain nocturnal pulse ox. to screen for nocturnal hypoxia. Check iron studies with am labs tomorrow. Laboratory Results Last 24 Hours Test 07/22/16 11:39 07/22/16 16:39 07/22/16 20:02 07/23/16 05:55 Bedside Glucose 182 mg/dl 187 mg/dl 156 mg/dl White Blood Count 7.32 K/uL Red Blood Count 3.88 M/uL Hemoglobin 10.1 g/dL Hematocrit 31.5 % Mean Corpuscular Volume 81.2 fL Mean Corpuscular Hemoglobin 26.0 pg Mean Corpuscular Hemoglobin Concent 32.1 g/dl RDW Standard Deviation 47.5 fL RDW Coefficient of Variation 15.9 % Platelet Count 230 K/uL Mean Platelet Volume 10.5 fL Prothrombin Time 11.1 SECONDS Prothromb Time International Ratio 1.0 Sodium Level 137 mmol/L Potassium Level 4.0 mmol/L Chloride Level 103 mmol/L Carbon Dioxide Level 23 mmol/L Anion Gap 11.0 mmol/L Blood Urea Nitrogen 26 mg/dl Creatinine 1.00 mg/dl Est Creatinine Clear Calc Drug Dose 78.6 ml/min Estimated GFR () 68.0 Estimated GFR (Non- 58.7 BUN/Creatinine Ratio 26.3 Random Glucose 171 mg/dl Calcium Level 8.5 mg/dl Test 07/23/16 06:40 Bedside Glucose 171 mg/dl
[2016-07-23] MEDS: HEPARIN 25,000 UNIT/500ML D5W 500 ML IV PRN (10:45)
--- NOTE | 2016-07-23 12:00 | Progress Note ---
Internal Med Progress Note Date of Service: Jul 23, 2016. Provider Documentation: SUBJECTIVE : Patient c/o SOB with no improvement since admission. Leg swelling bilaterally same as before. Urinary output - not much No palpitations, chest pain, cough, fever, chills, nausea, vomiting, urinary burning/frequency. Tele- Atrial fibrillation with RVR OBJECTIVE: Vital Signs-as noted below Exam: General- Oriented x 3, not in distress, speaks in sentences with no effort Neck- supple Lungs- mild rales bilateral bases, no wheezes Heart- tachycardic, irregularly irregular rhythm; no murmurs Extremities- grade 2 lower leg edema, mild warmth/erythema; no calf tenderness Neuro- alert, oriented x 3; no gross focal neuro deficit Lab data as noted below. ASSESSMENT & PLAN: 66 year old female with history of DM, HTN, CKD 3, Gout, GI bleed presenting with shortness of breath secondary to new onset Atrial fibrillation with RVR, acute pulmonary edema ATRIAL FIBRILLATION WITH RVR, NEW ONSET : ACUTE PULMONARY EDEMA: Clinically volume overloaded; + weight gain, edema, bibasilar crackles; BNP ~ 1700 - CXR shows cardiomegaly, R base infiltrate; clinically no symptoms of pneumonia; no fever; no leukocytosis. -Received IV Lasix doses with no improvement -IV Bumex BID started, Spironolactone 12.5 mg started on 07/22/16, Metoprolol increased to 50 mg PO TID, Diltiazem increased to 180 mg daily. Continue with IV Amiodarone drip (started on 07/20/16). May need RASHID with cardioversion on Wednesday if HR not controlled. -Anticoagulation: Coumadin started on 07/21/16; IV heparin today as may need cardioversion . Need to monitor closely as high risk of bleeding with hx of severe GI bleeding in past, FOBT + ve possibly has chronic GI bleeding with anemia. -Echo- A fib with RVR, LVEF=55%, LA -mild dilation, Rt ventricular function- slightly low, Mild MR, Pulmonary hypertension suspected ; Troponin x 3 negative UTI- ECOLI UA +VE, Urine cx= E coli -On Kelfex BID (Day 3/5) -Followed up c/s (per patient she has even tolerated amoxicillin, cefalosporins in past) CHRONIC ANEMIA Hg is 10.5; was running 11's in 2014; ran 11 or lower since 2012 Hx severe GIB from peptic ulcer secondary to H pylori in 2012; required transfusion of 5 units at that time for Hg in 4's FOBT positive in ER; Repeat FOBT pending Does not appear to be acutely bleeding, Likely longstanding slow GIB; at risk for ulcer with recent NSAID and prednisone use, but not having epigastric pain, hematochezia or melena -No overt signs of GI bleeding -Started on Coumadin/IV Heparin as above -Continue with protonix daily BILATERAL HILAR PROMINENCE IMPRESSION: 1. Improvement in the patchy bibasilar densities. 2. Small bilateral pleural effusions and cardiomegaly persist. 3. Bilateral hilar prominence, unchanged. This could be due to pulmonary vascular congestion versus hilar lymphadenopathy. Recommend follow-up to ensure resolution. -- follow up CXR needed outpatient HYPERTENSION BP was borderline low on presentation -Held amlodipine, lisinopril, Lasix at home (takes 80 mg 5 days/week) -Monitor while on lasix /Metoprolol DM TYPE 2 -Hold pioglitazone- metformin -Insulin sliding scale coverage -Checked A1c -7.3 CKD STAGE III Cr is 1.1; stable at baseline -Monitor renal function while on IV Lasix DYSLIPIDEMIA -Continue statin (decreased simvastatin from 20 mg to 10 mg per cardiology) MORBID OBESITY DVT PROPHYLAXIS -SCD's due to hemoccult positive stool FULL CODE DISPOSITION Medical mx in progress- continue with tele monitoring Expected discharge home when stable Discussed with cardiology Vital Signs: Date Time Temp Pulse Resp B/P Pulse Ox O2 Delivery O2 Flow Rate FiO2 07/23/16 11:17 36.5 102 20 114/79 91 Room Air 07/23/16 07:15 36.6 108 20 113/74 93 Room Air 07/23/16 04:00 Room Air 07/23/16 03:51 36.8 116 20 112/72 90 Room Air 07/23/16 00:01 Room Air 07/22/16 23:52 36.9 112 20 123/72 91 Room Air 07/22/16 20:00 Room Air 07/22/16 19:06 36.9 107 20 125/66 91 Room Air 07/22/16 16:06 37.0 101 20 112/62 93 Room Air 07/22/16 16:00 Room Air 07/22/16 12:47 37.0 117 20 113/74 94 07/22/16 12:00 94 Room Air Lab Results: Results Past 24 Hours Test 07/22/16 16:39 07/22/16 20:02 07/23/16 05:55 07/23/16 06:40 Range/Units Bedside Glucose 187 156 171 70-90 mg/dl White Blood Count 7.32 4.8-10.8 K/uL Red Blood Count 3.88 4.2-5.4 M/uL Hemoglobin 10.1 12.0-16.0 g/dL Hematocrit 31.5 37-47 % Mean Corpuscular Volume 81.2 80-100 fL Mean Corpuscular Hemoglobin 26.0 25-34 pg Mean Corpuscular Hemoglobin Concent 32.1 32-36 g/dl RDW Standard Deviation 47.5 36.4-46.3 fL RDW Coefficient of Variation 15.9 11.5-14.5 % Platelet Count 230 130-400 K/uL Mean Platelet Volume 10.5 7.4-10.4 fL Prothrombin Time 11.1 9.0-12.0 SECONDS Prothromb Time International Ratio 1.0 0.9-1.1 Sodium Level 137 136-145 mmol/L Potassium Level 4.0 3.5-5.1 mmol/L Chloride Level 103 98-107 mmol/L Carbon Dioxide Level 23 21-32 mmol/L Anion Gap 11.0 3-11 mmol/L Blood Urea Nitrogen 26 7-18 mg/dl Creatinine 1.00 0.60-1.20 mg/dl Est Creatinine Clear Calc Drug Dose 78.6 ml/min Estimated GFR () 68.0 Estimated GFR (Non- 58.7 BUN/Creatinine Ratio 26.3 10-20 Random Glucose 171 70-99 mg/dl Calcium Level 8.5 8.5-10.1 mg/dl Test 07/23/16 11:15 Range/Units Bedside Glucose 190 70-90 mg/dl
--- NOTE | 2016-07-23 13:15 | DIAGNOSTIC IMAGING REPORT ---
CHEST ONE VIEW PORTABLE HISTORY: picc placement right arm COMPARISON: Chest 07/20/2016. FINDINGS: The tip of the right PICC terminates in the right atrium. This should be pulled back by approximately 6 cm. The heart remains enlarged. Small bilateral pleural effusions persist. Pulmonary edema pattern has progressed. There is a 4.7 cm right perihilar masslike density. Persistent bilateral hilar prominence. IMPRESSION: 1. The tip of the right PICC terminates in the right atrium. This should be pulled back approximately 6 cm. 2. Pulmonary edema pattern has progressed. Small bilateral pleural effusions persist. 3. Right perihilar 4.7 cm masslike opacity. This was not present on the prior study and therefore likely represents a component of the pulmonary edema or developing pneumonia. Follow-up is recommended to ensure resolution. 4. Bilateral hilar prominence persists. This could be due to the pulmonary vascular congestion or hilar lymphadenopathy. Electronically signed by: Suhail Nolen M.D. 07/23/2016 1:14 PM Dictated Date/Time: 07/23/2016 1:11 PM
--- NOTE | 2016-07-23 13:52 | DIAGNOSTIC IMAGING REPORT ---
CHEST ONE VIEW PORTABLE CLINICAL HISTORY: Chest x-ray for PICC catheter placement COMPARISON STUDY: 07/23/2016 FINDINGS: The right-sided PICC catheter has been repositioned, and now projects over the superior vena cava. The heart remains enlarged. There is right basilar atelectasis/consolidation. There is stable right hilar enlargement. There is a persistent 4 cm right perihilar opacity.[ IMPRESSION: Interval repositioning of the PICC catheter which now projects over the superior vena cava Electronically signed by: Nba Hernandez M.D. 07/23/2016 1:50 PM Dictated Date/Time: 07/23/2016 1:49 PM
[2016-07-23] MEDS: BUMETANIDE IV 1 MG in SYRINGE 0 ML IV SCH (14:06)
[2016-07-23] MEDS: WARFARIN SOD 7.5 MG TAB PO SCH (16:01)
[2016-07-23 20:47] LABS: PARTIAL THROMBOPLASTIN RATIO 1.1
[2016-07-23] MEDS: ALLOPURINOL 100 MG TAB PO SCH (21:00)
[2016-07-23] MEDS: SIMVASTATIN 10 MG TAB PO SCH (21:00)
[2016-07-24] MEDS: TRAMADOL HCL 50 MG TAB PO PRN ×3 (00:20→21:17)
[2016-07-24] MEDS ORDERED: HEPARIN IV BOLUS 4,500 UNIT in SYRINGE 0 ML IV STA (00:39)
[2016-07-24 04:04] VITALS: BP 127/71; PULSE 68; TEMP 36.6; O2SAT 94
[2016-07-24 06:10] LABS: HEMATOCRIT 29.4 % (37-47); MEAN CORPUSCULAR HEMOGLOBIN 25.9 pg (25-34); MEAN PLATELET VOLUME 10.2 fL (7.4-10.4); PLATELET COUNT 200 K/uL (130-400); RED BLOOD COUNT 3.63 M/uL (4.2-5.4); WHITE BLOOD COUNT 6.17 K/uL (4.8-10.8)
[2016-07-24 06:40] LABS: BUN/CREATININE RATIO 26.3 (10-20); CALCIUM 8.3 mg/dl (8.5-10.1); POTASSIUM 3.9 mmol/L (3.5-5.1)
[2016-07-24 06:41] LABS: INR 1.1 (0.9-1.1); PARTIAL THROMBOPLASTIN RATIO 2.2
[2016-07-24] MEDS: INSULIN ASPART 100 UNITS/ML 3 ML PEN SC SCH ×4 (07:00→21:00)
[2016-07-24 07:31] VITALS: BP 136/74; PULSE 72; TEMP 36.8; O2SAT 97
[2016-07-24] MEDS: BUMETANIDE IV 1 MG in SYRINGE 0 ML IV SCH ×2 (07:50→14:35)
[2016-07-24] MEDS: AMIODARONE 200 MG TAB PO SCH ×2 (07:50→21:03)
[2016-07-24] MEDS: CHOLECALCIFEROL 1000 INTER.UNIT TAB PO SCH (07:51)
[2016-07-24] MEDS: MULTIVITAMIN TAB PO SCH (07:51)
[2016-07-24] MEDS: SPIRONOLACTONE 25 MG TAB PO SCH (07:51)
[2016-07-24] MEDS: CEPHALEXIN MONOHYDRATE 500 MG CAP PO SCH ×2 (07:52→21:03)
[2016-07-24] MEDS: DILTIAZEM HCL 180 MG CAPCR PO SCH (07:52)
[2016-07-24] MEDS: ASPIRIN 81 MG ECTAB PO SCH (07:52)
[2016-07-24] MEDS: POTASSIUM CHLORIDE 20 MEQ TABCR PO SCH (07:53)
[2016-07-24] MEDS: METOPROLOL TARTRATE 50 MG TAB PO SCH ×3 (07:56→21:02)
[2016-07-24] MEDS: PANTOprazole SOD 40 MG TAB PO SCH (07:56)
[2016-07-24] MEDS: MAGNESIUM OXIDE 400 MG TAB PO SCH ×2 (07:56→21:03)
--- NOTE | 2016-07-24 09:24 | Cardiology Follow-Up ---
Subjective General Date of Service: Jul 24, 2016. Chief Complaint: FOLLOW UP ATRIAL FIBRILLATION RVR, EXERTIONAL SOB Pt evaluation today including: conversation w/ patient, physical exam History of Present Illness The patient is a 66 year old female seen in cardiology follow up. Patient converted from AF RVR to SR last night 07/23 at 21:32. EKG this am 07/24/16 reveals SR at 72 bpm with age undetermined septal infarction pattern (likely false positive EKG finding-based in normal LV wall motion on recent echocardiogram). Patient feels much improved. Her amiodarone infusion was discontinued and she is now on oral amiodarone. Iron studies confirm iron deficiency anemia. Allergies Coded Allergies: Penicillins (Verified Allergy, Intermediate, URTICARIA; PER PT, CAN TAKE AMOXICILLIN, 07/19/16) Erythromycin (Verified Adverse Reaction, Mild, GI UPSET, 07/19/16) Social History Smoking Status: Never Smoker Hx Tobacco Use In Past Year?: No Hx Alcohol Use - Type And Amou: Yes (occasional mixed drink or glass of wine) Hx Substance Use - Type And Am: No Problem List Medical Problems: (1) Acute congestive heart failure Status: Acute (2) Heme positive stool Status: Acute Physical Exam Vital Signs Last Vital Signs Documentation Date Time Temp Pulse Resp B/P Pulse Ox O2 Delivery O2 Flow Rate FiO2 07/24/16 08:00 Room Air 07/24/16 07:31 36.8 72 24 136/74 97 07/23/16 16:00 2.0 Physical Exam Constitutional: General Apperance: obese Neck: supple Lungs: Auscultation: pertinent finding (decrease breathsounds at the bases) Cardiovascular: Heart Auscultation: RRR, no murmurs Extremities: pertinent finding (1+ bilateral lower extremity edema ) Neurologic: Gait & Station: pertinent finding (no focal deficits ) Assessment and Plan Assessment and Plan Impression: 66 year old female 1. Symptomatic AF ,RVR-converted to SR on amiodarone infusion 07/23/16 2. Volume overload, normal LVEF, diastolic dysfunction 3. Chronic anemia (iron deficiency confirmed), h/o GI bleed, heme occult positive stool 4. Morbid obesity, likely underlying obstructive sleep apnea. Nocturnal desaturations noted on nocturnal pulse ox. Plan: Oral amiodarone 400 mg PO BID. Transition to metoprolol 100 mg BID 07/25. and attempt to transition off of oral cardizem given potential for exacerbating edema/ fluid retention. Bumex IV 1 mg BID at 7 am, 1400 daily, spironolactone, KCL supplement. Anemia- IV iron infusion today. Stroke prophylaxis: continue heparin bridge to coumadin. Hopefully , pt will remain in SR and will not require RASHID , CV. Laboratory Results Last 24 Hours Test 07/23/16 11:15 07/23/16 17:30 07/23/16 20:20 07/23/16 20:35 Bedside Glucose 190 mg/dl 182 mg/dl 160 mg/dl Activated Partial Thromboplast Time 29.1 SECONDS Partial Thromboplastin Ratio 1.1 Test 07/24/16 06:00 07/24/16 06:45 07/24/16 09:06 White Blood Count 6.17 K/uL Red Blood Count 3.63 M/uL Hemoglobin 9.4 g/dL Hematocrit 29.4 % Mean Corpuscular Volume 81.0 fL Mean Corpuscular Hemoglobin 25.9 pg Mean Corpuscular Hemoglobin Concent 32.0 g/dl RDW Standard Deviation 46.4 fL RDW Coefficient of Variation 15.7 % Platelet Count 200 K/uL Mean Platelet Volume 10.2 fL Absolute Reticulocyte Count 0.09 10^6/uL Percent Reticulocyte Count 2.5 % Prothrombin Time 12.0 SECONDS Prothromb Time International Ratio 1.1 Activated Partial Thromboplast Time 58.3 SECONDS Partial Thromboplastin Ratio 2.2 Sodium Level 138 mmol/L Potassium Level 3.9 mmol/L Chloride Level 102 mmol/L Carbon Dioxide Level 28 mmol/L Anion Gap 8.0 mmol/L Blood Urea Nitrogen 26 mg/dl Creatinine 1.00 mg/dl Est Creatinine Clear Calc Drug Dose 79.3 ml/min Estimated GFR () 68.0 Estimated GFR (Non- 58.7 BUN/Creatinine Ratio 26.3 Random Glucose 136 mg/dl Calcium Level 8.3 mg/dl Iron Level 20 mcg/dl Total Iron Binding Capacity 321 mcg/dl Transferrin 253 mg/dl Transferrin % Saturation 6 % Vitamin B12 Level 1108 pg/mL Folate 11.48 ng/mL Bedside Glucose 150 mg/dl
--- NOTE | 2016-07-24 10:11 | Progress Note ---
Internal Med Progress Note Date of Service: Jul 24, 2016. Provider Documentation: SUBJECTIVE : Patient is feeling much better today. SOB has improved. Leg swelling bilaterally same as before. Urinary output - not much No palpitations, chest pain, cough, fever, chills, nausea, vomiting, urinary burning/frequency. Tele- Atrial fibrillation with RVR --> Converted to NSR yesterday night OBJECTIVE: Vital Signs-as noted below Exam: General- Oriented x 3, not in distress, speaks in sentences with no effort Neck- supple Lungs- mild rales bilateral bases, no wheezes Heart- NSR, no murmurs Extremities- grade 2 lower leg edema, mild warmth/erythema; no calf tenderness Neuro- alert, oriented x 3; no gross focal neuro deficit Lab data as noted below. ASSESSMENT & PLAN: 66 year old female with history of DM, HTN, CKD 3, Gout, GI bleed presenting with shortness of breath secondary to new onset Atrial fibrillation with RVR, acute pulmonary edema ATRIAL FIBRILLATION WITH RVR, NEW ONSET : --> Converted to NSR ACUTE PULMONARY EDEMA : Improving Clinically volume overloaded; + weight gain, edema, bibasilar crackles; BNP ~ 1700 - CXR shows cardiomegaly, R base infiltrate; clinically no symptoms of pneumonia; no fever; no leukocytosis. -Received IV Lasix doses with no improvement. -IV Bumex BID started on 07/23/16, Spironolactone 12.5 mg started on 07/22/16, Metoprolol increased to 50 mg PO TID, Diltiazem increased to 180 mg daily. S/P IV Amiodarone --> 400 mg PO BID on 07/23/16. Initially plan was to do RASHID with cardioversion on Wednesday, but now in NSR. -Anticoagulation: Coumadin started on 07/21/16; IV heparin on 07/23/16 as may need cardioversion . Need to monitor closely as high risk of bleeding with hx of severe GI bleeding in past, FOBT + ve possibly has chronic GI bleeding with anemia. -Echo- A fib with RVR, LVEF=55%, LA -mild dilation, Rt ventricular function- slightly low, Mild MR, Pulmonary hypertension suspected ; Troponin x 3 negative UTI- ECOLI UA +VE, Urine cx= E coli -On Kelfex BID (Day 4/5) -Followed up c/s (per patient she has even tolerated amoxicillin, cefalosporins in past) CHRONIC ANEMIA, IRON DEFICIENCY Hg is 10.5; was running 11's in 2014; ran 11 or lower since 2012 Hx severe GIB from peptic ulcer secondary to H pylori in 2012; required transfusion of 5 units at that time for Hg in 4's FOBT positive in ER; Repeat FOBT pending Does not appear to be acutely bleeding, Likely longstanding slow GIB; at risk for ulcer with recent NSAID and prednisone use, but not having epigastric pain, hematochezia or melena -No overt signs of GI bleeding -Started on Coumadin/IV Heparin as above -Continue with protonix daily PLAN: To give IV Iron Rx today BILATERAL HILAR PROMINENCE IMPRESSION: 1. Improvement in the patchy bibasilar densities. 2. Small bilateral pleural effusions and cardiomegaly persist. 3. Bilateral hilar prominence, unchanged. This could be due to pulmonary vascular congestion versus hilar lymphadenopathy. Recommend follow-up to ensure resolution. -- follow up CXR needed outpatient HYPERTENSION BP was borderline low on presentation -Held amlodipine, lisinopril, Lasix at home (takes 80 mg 5 days/week) -Monitor while on lasix /Metoprolol DM TYPE 2 -Hold pioglitazone- metformin -Insulin sliding scale coverage -Checked A1c -7.3 CKD STAGE III Cr is 1.1; stable at baseline -Monitor renal function while on IV Lasix DYSLIPIDEMIA -Continue statin (decreased simvastatin from 20 mg to 10 mg per cardiology) MORBID OBESITY DVT PROPHYLAXIS -SCD's due to hemoccult positive stool FULL CODE DISPOSITION Medical mx in progress - continue with tele monitoring Expected discharge home when stable Discussed with cardiology Vital Signs: Date Time Temp Pulse Resp B/P Pulse Ox O2 Delivery O2 Flow Rate FiO2 07/24/16 08:00 Room Air 07/24/16 07:31 36.8 72 24 136/74 97 Room Air 07/24/16 04:04 36.6 68 22 127/71 94 Room Air 07/24/16 04:00 Room Air 07/24/16 00:00 Room Air 07/23/16 23:47 36.9 63 20 126/77 91 Room Air 07/23/16 20:00 Room Air 07/23/16 18:49 36.7 101 18 125/85 94 Room Air 07/23/16 16:14 36.4 95 18 132/82 93 Room Air 07/23/16 16:00 92 Room Air 2.0 07/23/16 15:39 36.3 111 18 120/70 92 Room Air 07/23/16 13:52 36.7 117 16 114/72 91 Room Air 07/23/16 13:49 Room Air 07/23/16 11:17 36.5 102 20 114/79 91 Room Air Lab Results: Results Past 24 Hours Test 07/23/16 11:15 07/23/16 17:30 07/23/16 20:20 07/23/16 20:35 Range/Units Bedside Glucose 190 182 160 70-90 mg/dl Activated Partial Thromboplast Time 29.1 21.0-31.0 SECONDS Partial Thromboplastin Ratio 1.1 Test 07/24/16 06:00 07/24/16 06:45 07/24/16 09:40 Range/Units White Blood Count 6.17 4.8-10.8 K/uL Red Blood Count 3.63 4.2-5.4 M/uL Hemoglobin 9.4 12.0-16.0 g/dL Hematocrit 29.4 37-47 % Mean Corpuscular Volume 81.0 80-100 fL Mean Corpuscular Hemoglobin 25.9 25-34 pg Mean Corpuscular Hemoglobin Concent 32.0 32-36 g/dl RDW Standard Deviation 46.4 36.4-46.3 fL RDW Coefficient of Variation 15.7 11.5-14.5 % Platelet Count 200 130-400 K/uL Mean Platelet Volume 10.2 7.4-10.4 fL Absolute Reticulocyte Count 0.09 0.02-0.10 10^6/uL Percent Reticulocyte Count 2.5 0.5-2.0 % Prothrombin Time 12.0 9.0-12.0 SECONDS Prothromb Time International Ratio 1.1 0.9-1.1 Activated Partial Thromboplast Time 58.3 21.0-31.0 SECONDS Partial Thromboplastin Ratio 2.2 Sodium Level 138 136-145 mmol/L Potassium Level 3.9 3.5-5.1 mmol/L Chloride Level 102 98-107 mmol/L Carbon Dioxide Level 28 21-32 mmol/L Anion Gap 8.0 3-11 mmol/L Blood Urea Nitrogen 26 7-18 mg/dl Creatinine 1.00 0.60-1.20 mg/dl Est Creatinine Clear Calc Drug Dose 79.3 ml/min Estimated GFR () 68.0 Estimated GFR (Non- 58.7 BUN/Creatinine Ratio 26.3 10-20 Random Glucose 136 70-99 mg/dl Calcium Level 8.3 8.5-10.1 mg/dl Iron Level 20 35-150 mcg/dl Total Iron Binding Capacity 321 250-450 mcg/dl Transferrin 253 200-360 mg/dl Transferrin % Saturation 6 15-50 % Vitamin B12 Level 1108 211-911 pg/mL Folate 11.48 >5.38 ng/mL Bedside Glucose 150 70-90 mg/dl
[2016-07-24] MEDS ORDERED: IRON SUCROSE INJ 100 MG in SODIUM CHLORIDE 0.9% 100ML 100 ML IV ONE (10:15)
[2016-07-24 10:24] LABS: BUN/CREATININE RATIO 25.7 (10-20); CALCIUM 8.7 mg/dl (8.5-10.1)
[2016-07-24 11:56] VITALS: BP 121/75; PULSE 70; TEMP 36.6; O2SAT 92
[2016-07-24 15:25] VITALS: BP 135/69; PULSE 71; TEMP 36.8; O2SAT 95
[2016-07-24] MEDS: FERROUS SULFATE 325 MG TAB PO SCH (17:26)
[2016-07-24] MEDS: WARFARIN SOD 7.5 MG TAB PO SCH (17:28)
[2016-07-24 19:15] VITALS: BP 113/47; PULSE 71; TEMP 36.7; O2SAT 91
[2016-07-24] MEDS: SIMVASTATIN 10 MG TAB PO SCH (21:04)
[2016-07-24] MEDS: ALLOPURINOL 100 MG TAB PO SCH (21:04)
[2016-07-25] VITALS (11 sets, daily range): BP systolic 111–146; BP diastolic 57–78; PULSE 61–92; TEMP 36.4–36.8; O2SAT 92–96
[2016-07-25] MEDS: BUMETANIDE IV 1 MG in SYRINGE 0 ML IV SCH ×2 (08:22→13:57)
[2016-07-25] MEDS: CEPHALEXIN MONOHYDRATE 500 MG CAP PO SCH ×2 (08:22→21:13)
[2016-07-25] MEDS: MULTIVITAMIN TAB PO SCH (08:22)
[2016-07-25] MEDS: SPIRONOLACTONE 25 MG TAB PO SCH (08:22)
[2016-07-25] MEDS: MAGNESIUM OXIDE 400 MG TAB PO SCH ×2 (08:22→21:14)
[2016-07-25] MEDS: PANTOprazole SOD 40 MG TAB PO SCH (08:22)
[2016-07-25] MEDS: AMIODARONE 200 MG TAB PO SCH ×2 (08:23→21:13)
[2016-07-25] MEDS: POTASSIUM CHLORIDE 20 MEQ TABCR PO SCH (08:23)
[2016-07-25] MEDS: METOPROLOL TARTRATE 100 MG TAB PO SCH ×2 (08:24→21:15)
[2016-07-25] MEDS: CHOLECALCIFEROL 1000 INTER.UNIT TAB PO SCH (08:24)
[2016-07-25] MEDS: ASPIRIN 81 MG ECTAB PO SCH (08:24)
[2016-07-25] MEDS: FERROUS SULFATE 325 MG TAB PO SCH ×2 (08:24→16:53)
[2016-07-25] MEDS: INSULIN ASPART 100 UNITS/ML 3 ML PEN SC SCH ×4 (08:28→21:00)
[2016-07-25] MEDS: TRAMADOL HCL 50 MG TAB PO PRN ×3 (08:29→23:34)
[2016-07-25] MEDS ORDERED: FLUCONAZOLE 100 MG TAB PO SCH (09:00)
[2016-07-25 09:13] LABS: INR 1.2 (0.9-1.1); PARTIAL THROMBOPLASTIN RATIO 1.9; PROTHROMBIN TIME (PATIENT) 13.2 SECONDS (9.0-12.0)
[2016-07-25 09:29] LABS: BUN/CREATININE RATIO 23.5 (10-20); CALCIUM 8.8 mg/dl (8.5-10.1); CREATININE 1.1 mg/dl (0.60-1.20); POTASSIUM 3.9 mmol/L (3.5-5.1)
--- NOTE | 2016-07-25 11:08 | Progress Note ---
Internal Med Progress Note Date of Service: Jul 25, 2016. Provider Documentation: SUBJECTIVE : Patient is feeling much better today. SOB has improved. Leg swelling bilaterally same as before. Urinary output - not much No palpitations, chest pain, cough, fever, chills, nausea, vomiting, urinary burning/frequency. Tele- Atrial fibrillation with RVR --> Converted to NSR on 07/24/16 night, NSR maintained at rate of 60s OBJECTIVE: Vital Signs-as noted below Exam: General- Oriented x 3, not in distress, speaks in sentences with no effort Neck- supple Lungs- mild rales bilateral bases, no wheezes Heart- NSR, no murmurs Extremities- grade 2 lower leg edema, mild warmth/erythema; no calf tenderness Neuro- alert, oriented x 3; no gross focal neuro deficit Lab data as noted below. ASSESSMENT & PLAN: 66 year old female with history of DM, HTN, CKD 3, Gout, GI bleed presenting with shortness of breath secondary to new onset Atrial fibrillation with RVR, acute pulmonary edema ATRIAL FIBRILLATION WITH RVR, NEW ONSET : --> Converted to NSR , maintaining NSR ACUTE PULMONARY EDEMA : Improving Clinically volume overloaded; + weight gain, edema, bibasilar crackles; BNP ~ 1700 - CXR shows cardiomegaly, R base infiltrate; clinically no symptoms of pneumonia; no fever; no leukocytosis. -Received IV Lasix doses with no improvement. -IV Bumex BID started on 07/23/16, Spironolactone 12.5 mg started on 07/22/16, Metoprolol increased to 50 mg PO TID--> decreased to 50 mg PO BID today , Diltiazem increased to 180 mg daily--> Discontinued today. S/P IV Amiodarone -- > 400 mg PO BID on 07/23/16. Initially plan was to do RASHID with cardioversion on Wednesday, but now in NSR. -Anticoagulation: Coumadin started on 07/21/16; IV heparin on 07/23/16 as may need cardioversion . Need to monitor closely as high risk of bleeding with hx of severe GI bleeding in past, FOBT + ve possibly has chronic GI bleeding with anemia. -Echo- A fib with RVR, LVEF=55%, LA -mild dilation, Rt ventricular function- slightly low, Mild MR, Pulmonary hypertension suspected ; Troponin x 3 negative UTI- ECOLI UA +VE, Urine cx= E coli -On Kelfex BID (Day 09/04). Last day today -Followed up c/s (per patient she has even tolerated amoxicillin, cefalosporins in past) CHRONIC ANEMIA, IRON DEFICIENCY Hg is 10.5; was running 11's in 2014; ran 11 or lower since 2012 Hx severe GIB from peptic ulcer secondary to H pylori in 2012; required transfusion of 5 units at that time for Hg in 4's FOBT positive in ER; Repeat FOBT pending Does not appear to be acutely bleeding, Likely longstanding slow GIB; at risk for ulcer with recent NSAID and prednisone use, but not having epigastric pain, hematochezia or melena -No overt signs of GI bleeding -Started on Coumadin/IV Heparin as above -S/P IV Iron rx on 07/24/16 -Continue with protonix daily BILATERAL HILAR PROMINENCE IMPRESSION: 1. Improvement in the patchy bibasilar densities. 2. Small bilateral pleural effusions and cardiomegaly persist. 3. Bilateral hilar prominence, unchanged. This could be due to pulmonary vascular congestion versus hilar lymphadenopathy. Recommend follow-up to ensure resolution. -- follow up CXR needed outpatient HYPERTENSION BP was borderline low on presentation -Held amlodipine, lisinopril, Lasix at home (takes 80 mg 5 days/week) -Monitor while on lasix /Metoprolol DM TYPE 2 -Hold pioglitazone- metformin -Insulin sliding scale coverage -Checked A1c -7.3 CKD STAGE III Cr is 1.1; stable at baseline -Monitor renal function while on IV Lasix DYSLIPIDEMIA -Continue statin (decreased simvastatin from 20 mg to 10 mg per cardiology) MORBID OBESITY DVT PROPHYLAXIS -SCD's due to hemoccult positive stool FULL CODE DISPOSITION Medical mx in progress - continue with tele monitoring Expected discharge home when stable- likely 1-2 days Patient is eager to be discharged Vital Signs: Date Time Temp Pulse Resp B/P Pulse Ox O2 Delivery O2 Flow Rate FiO2 07/25/16 07:55 36.8 68 20 139/73 95 Room Air 07/25/16 04:29 36.4 74 18 146/78 95 07/25/16 04:08 Room Air 07/25/16 00:09 36.4 74 18 134/71 94 07/25/16 00:01 Room Air 07/24/16 21:53 Room Air 07/24/16 19:15 36.7 71 18 113/47 91 Nasal Cannula 07/24/16 16:15 Room Air 07/24/16 15:25 36.8 71 19 135/69 95 Room Air 07/24/16 12:00 Room Air 07/24/16 11:56 36.6 70 20 121/75 92 Room Air Lab Results: Results Past 24 Hours Test 07/24/16 16:29 07/24/16 20:08 07/25/16 07:03 07/25/16 08:39 Range/Units Bedside Glucose 123 124 125 70-90 mg/dl Prothrombin Time 13.2 9.0-12.0 SECONDS Prothromb Time International Ratio 1.2 0.9-1.1 Activated Partial Thromboplast Time 48.7 21.0-31.0 SECONDS Partial Thromboplastin Ratio 1.9 Sodium Level 138 136-145 mmol/L Potassium Level 3.9 3.5-5.1 mmol/L Chloride Level 102 98-107 mmol/L Carbon Dioxide Level 27 21-32 mmol/L Anion Gap 9.0 3-11 mmol/L Blood Urea Nitrogen 26 7-18 mg/dl Creatinine 1.10 0.60-1.20 mg/dl Est Creatinine Clear Calc Drug Dose 72.1 ml/min Estimated GFR () 60.6 Estimated GFR (Non- 52.3 BUN/Creatinine Ratio 23.5 10-20 Random Glucose 210 70-99 mg/dl Calcium Level 8.8 8.5-10.1 mg/dl
--- NOTE | 2016-07-25 12:31 | Cardiology Follow-Up ---
Subjective General Date of Service: Jul 25, 2016. Chief Complaint: FOLLOW UP ATRIAL FIBRILLATION RVR, EXERTIONAL SOB Pt evaluation today including: conversation w/ patient, physical exam History of Present Illness The patient is a 66 year old female seen in cardiology follow-up. She remains in sinus rhythm on telemetry. She notes that her swelling in her hands is improved although she still has lower extremity swelling. Her shortness of breath has improved since converting to sinus rhythm and feels better today than yesterday. She tolerated dose of IV iron yesterday 07/24/16. Allergies Coded Allergies: Penicillins (Verified Allergy, Intermediate, URTICARIA; PER PT, CAN TAKE AMOXICILLIN, 07/19/16) Erythromycin (Verified Adverse Reaction, Mild, GI UPSET, 07/19/16) Social History Smoking Status: Never Smoker Hx Tobacco Use In Past Year?: No Hx Alcohol Use - Type And Amou: Yes (occasional mixed drink or glass of wine) Hx Substance Use - Type And Am: No Problem List Medical Problems: (1) Acute congestive heart failure Status: Acute (2) Heme positive stool Status: Acute Physical Exam Vital Signs Last Vital Signs Documentation Date Time Temp Pulse Resp B/P Pulse Ox O2 Delivery O2 Flow Rate FiO2 07/25/16 11:27 36.8 61 20 124/70 95 Room Air 07/23/16 16:00 2.0 Physical Exam Constitutional: General Apperance: obese Neck: supple Lungs: Auscultation: pertinent finding (decrease breathsounds at the bases) Cardiovascular: Heart Auscultation: RRR, no murmurs Extremities: pertinent finding (1+ bilateral lower extremity edema ) Neurologic: Gait & Station: pertinent finding (no focal deficits ) Assessment and Plan Assessment and Plan Impression: 66 year old female 1. Symptomatic AF ,RVR-converted to SR on amiodarone infusion 07/23/16 2. Volume overload, normal LVEF, diastolic dysfunction 3. Chronic anemia (iron deficiency confirmed), h/o GI bleed, heme occult positive stool 4. Morbid obesity, likely underlying obstructive sleep apnea. Nocturnal desaturations noted on nocturnal pulse ox. Plan: Oral amiodarone 400 mg PO BID. Continue metoprolol 100 mg BID Off of oral diltiazem and attempt to simplify her oral medication regimen to metoprolol plus amiodarone for rhythm control. Bumex IV 1 mg BID at 7 am, 1400 daily, spironolactone, KCL supplement. Anemia-hemoglobin stable on heparin/Coumadin. Stroke prophylaxis: continue heparin bridge to coumadin. Patient with steady clinical improvement. We'll continue diuresis, and wait for her INR to become therapeutic. She will need outpatient follow-up at the [facility] anticoagulation clinic as well as outpatient sleep medicine consultation and cardiology follow-up. I plan for her to be on a short-term course of amiodarone, hopefully 3 months or less. It is likely that her volume overload and atrial fibrillation was provoked by prednisone and ibuprofen use in a patient who certainly has underlying risk factors for atrial fibrillation. Laboratory Results Last 24 Hours Test 07/24/16 16:29 07/24/16 20:08 07/25/16 07:03 07/25/16 08:39 Bedside Glucose 123 mg/dl 124 mg/dl 125 mg/dl Prothrombin Time 13.2 SECONDS Prothromb Time International Ratio 1.2 Activated Partial Thromboplast Time 48.7 SECONDS Partial Thromboplastin Ratio 1.9 Sodium Level 138 mmol/L Potassium Level 3.9 mmol/L Chloride Level 102 mmol/L Carbon Dioxide Level 27 mmol/L Anion Gap 9.0 mmol/L Blood Urea Nitrogen 26 mg/dl Creatinine 1.10 mg/dl Est Creatinine Clear Calc Drug Dose 72.1 ml/min Estimated GFR () 60.6 Estimated GFR (Non- 52.3 BUN/Creatinine Ratio 23.5 Random Glucose 210 mg/dl Calcium Level 8.8 mg/dl Test 07/25/16 11:30 Bedside Glucose 152 mg/dl
[2016-07-25] MEDS: WARFARIN SOD 7.5 MG TAB PO SCH (16:54)
[2016-07-25] MEDS: SIMVASTATIN 10 MG TAB PO SCH (21:14)
[2016-07-25] MEDS: ALLOPURINOL 100 MG TAB PO SCH (21:14)
[2016-07-26] VITALS (8 sets, daily range): BP systolic 109–150; BP diastolic 52–77; PULSE 57–95; TEMP 36.7–36.9; O2SAT 90–95
[2016-07-26] MEDS: HEPARIN 25,000 UNIT/500ML D5W 500 ML IV PRN ×2 (04:49→08:28)
[2016-07-26] MEDS: BUMETANIDE IV 1 MG in SYRINGE 0 ML IV SCH ×2 (06:39→14:27)
[2016-07-26 06:56] LABS: HEMATOCRIT 28.2 % (37-47); MEAN CELL VOLUME 80.8 fL (80-100); MEAN CORPUSCULAR HEMOGLOBIN 26.1 pg (25-34); MEAN CORPUSCULAR HGB CONC 32.3 g/dl (32-36); MEAN PLATELET VOLUME 9.7 fL (7.4-10.4); PLATELET COUNT 227 K/uL (130-400); RED BLOOD COUNT 3.49 M/uL (4.2-5.4); WHITE BLOOD COUNT 5.84 K/uL (4.8-10.8)
[2016-07-26 07:17] LABS: INR 1.3 (0.9-1.1); PROTHROMBIN TIME (PATIENT) 13.8 SECONDS (9.0-12.0)
[2016-07-26 07:40] LABS: CALCIUM 8.7 mg/dl (8.5-10.1); POTASSIUM 4.2 mmol/L (3.5-5.1)
[2016-07-26] MEDS: CHOLECALCIFEROL 1000 INTER.UNIT TAB PO SCH (08:15)
[2016-07-26] MEDS: AMIODARONE 200 MG TAB PO SCH ×2 (08:15→21:08)
[2016-07-26] MEDS: CEPHALEXIN MONOHYDRATE 500 MG CAP PO SCH (08:15)
[2016-07-26] MEDS: POTASSIUM CHLORIDE 20 MEQ TABCR PO SCH (08:16)
[2016-07-26] MEDS: MULTIVITAMIN TAB PO SCH (08:16)
[2016-07-26] MEDS: METOPROLOL TARTRATE 100 MG TAB PO SCH ×2 (08:16→21:08)
[2016-07-26] MEDS: MAGNESIUM OXIDE 400 MG TAB PO SCH ×2 (08:16→21:07)
[2016-07-26] MEDS: SPIRONOLACTONE 25 MG TAB PO SCH (08:17)
[2016-07-26] MEDS: TRAMADOL HCL 50 MG TAB PO PRN ×2 (08:21→17:52)
[2016-07-26] MEDS: INSULIN ASPART 100 UNITS/ML 3 ML PEN SC SCH ×4 (08:21→21:00)
[2016-07-26] MEDS: PANTOprazole SOD 40 MG TAB PO SCH (08:24)
[2016-07-26] MEDS: ASPIRIN 81 MG ECTAB PO SCH (08:24)
[2016-07-26] MEDS: FERROUS SULFATE 325 MG TAB PO SCH ×2 (08:24→17:48)
--- NOTE | 2016-07-26 10:24 | Progress Note ---
Internal Med Progress Note Date of Service: Jul 26, 2016. Provider Documentation: SUBJECTIVE : Patient is feeling much better today. SOB has improved and eager to be discharged Leg swelling bilaterally same as before. Urinary output - not much No palpitations, chest pain, cough, fever, chills, nausea, vomiting, urinary burning/frequency. Tele- Atrial fibrillation with RVR --> Converted to NSR on 07/24/16 night, NSR maintained at rate of 60s OBJECTIVE: Vital Signs-as noted below Exam: General- Oriented x 3, not in distress, speaks in sentences with no effort Neck- supple Lungs- mild rales bilateral bases, no wheezes Heart- NSR, no murmurs Extremities- grade 2 lower leg edema, mild warmth/erythema; no calf tenderness Neuro- alert, oriented x 3; no gross focal neuro deficit Lab data as noted below. ASSESSMENT & PLAN: 66 year old female with history of DM, HTN, CKD 3, Gout, GI bleed presenting with shortness of breath secondary to new onset Atrial fibrillation with RVR, acute pulmonary edema ATRIAL FIBRILLATION WITH RVR, NEW ONSET : -- > Converted to NSR , maintaining NSR ACUTE PULMONARY EDEMA : Improving Clinically volume overloaded; + weight gain, edema, bibasilar crackles; BNP ~ 1700 - CXR shows cardiomegaly, R base infiltrate; clinically no symptoms of pneumonia; no fever; no leukocytosis. -Received IV Lasix doses with no improvement. -IV Bumex BID started on 07/23/16, Spironolactone 12.5 mg started on 07/22/16, Metoprolol increased to 50 mg PO TID --> decreased to 50 mg PO BID on 07/25 , Diltiazem increased to 180 mg daily--> Discontinued on 07/25/16. S/P IV Amiodarone --> 400 mg PO BID on 07/23/16. Initially plan was to do RASHID with cardioversion on Wednesday, but now in NSR, so no indication -Anticoagulation: Coumadin started on 07/21/16; IV heparin on 07/23/16. Need to monitor closely as high risk of bleeding with hx of severe GI bleeding in past, FOBT + ve possibly has chronic GI bleeding with anemia. So far tolerating it well. -Echo- A fib with RVR, LVEF=55%, LA -mild dilation, Rt ventricular function- slightly low, Mild MR, Pulmonary hypertension suspected ; Troponin x 3 negative UTI- ECOLI UA +VE, Urine cx= E coli -On Kelfex BID (Day 09/04). Last day 07/26/16 -Followed up c/s (per patient she has even tolerated amoxicillin, cefalosporins in past) CHRONIC ANEMIA, IRON DEFICIENCY Hg is 10.5; was running 11's in 2014; ran 11 or lower since 2012 Hx severe GIB from peptic ulcer secondary to H pylori in 2012; required transfusion of 5 units at that time for Hg in 4's FOBT positive in ER; Repeat FOBT pending Does not appear to be acutely bleeding, Likely longstanding slow GIB; at risk for ulcer with recent NSAID and prednisone use, but not having epigastric pain, hematochezia or melena -No overt signs of GI bleeding -Started on Coumadin/IV Heparin as above -S/P IV Iron rx on 07/24/16 -Continue with protonix daily BILATERAL HILAR PROMINENCE IMPRESSION: 1. Improvement in the patchy bibasilar densities. 2. Small bilateral pleural effusions and cardiomegaly persist. 3. Bilateral hilar prominence, unchanged. This could be due to pulmonary vascular congestion versus hilar lymphadenopathy. Recommend follow-up to ensure resolution. -- follow up CXR needed outpatient HYPERTENSION BP was borderline low on presentation -Held amlodipine, lisinopril, Lasix at home (takes 80 mg 5 days/week) -Monitor while on lasix /Metoprolol DM TYPE 2 -Hold pioglitazone- metformin -Insulin sliding scale coverage -Checked A1c -7.3 CKD STAGE III Cr is 1.1; stable at baseline -Monitor renal function while on IV Lasix DYSLIPIDEMIA -Continue statin (decreased simvastatin from 20 mg to 10 mg per cardiology) MORBID OBESITY DVT PROPHYLAXIS -SCD's due to hemoccult positive stool FULL CODE DISPOSITION Medical mx in progress - continue with tele monitoring Expected discharge home when stable- likely 1-2 days Patient is eager to be discharged Vital Signs: Date Time Temp Pulse Resp B/P Pulse Ox O2 Delivery O2 Flow Rate FiO2 07/26/16 07:05 36.7 61 20 115/56 95 Room Air 07/26/16 04:25 36.8 64 16 124/55 92 Room Air 07/26/16 04:00 Room Air 07/26/16 00:01 Room Air 07/25/16 23:40 36.7 67 18 134/76 93 Room Air 07/25/16 21:19 92 132/65 07/25/16 20:32 96 Room Air 2.0 07/25/16 20:00 92 Room Air 07/25/16 18:47 36.8 70 17 111/57 96 Room Air 07/25/16 16:00 92 Room Air 07/25/16 15:50 36.6 67 18 133/69 92 Room Air 07/25/16 11:27 36.8 61 20 124/70 95 Room Air Lab Results: Results Past 24 Hours Test 07/25/16 11:30 07/25/16 16:32 07/25/16 20:41 07/26/16 06:35 Range/Units Bedside Glucose 152 123 133 70-90 mg/dl White Blood Count 5.84 4.8-10.8 K/uL Red Blood Count 3.49 4.2-5.4 M/uL Hemoglobin 9.1 12.0-16.0 g/dL Hematocrit 28.2 37-47 % Mean Corpuscular Volume 80.8 80-100 fL Mean Corpuscular Hemoglobin 26.1 25-34 pg Mean Corpuscular Hemoglobin Concent 32.3 32-36 g/dl RDW Standard Deviation 46.3 36.4-46.3 fL RDW Coefficient of Variation 15.7 11.5-14.5 % Platelet Count 227 130-400 K/uL Mean Platelet Volume 9.7 7.4-10.4 fL Prothrombin Time 13.8 9.0-12.0 SECONDS Prothromb Time International Ratio 1.3 0.9-1.1 Activated Partial Thromboplast Time 76.9 21.0-31.0 SECONDS Partial Thromboplastin Ratio 3.0 Sodium Level 139 136-145 mmol/L Potassium Level 4.2 3.5-5.1 mmol/L Chloride Level 101 98-107 mmol/L Carbon Dioxide Level 28 21-32 mmol/L Anion Gap 10.0 3-11 mmol/L Blood Urea Nitrogen 24 7-18 mg/dl Creatinine 1.00 0.60-1.20 mg/dl Est Creatinine Clear Calc Drug Dose 78.6 ml/min Estimated GFR () 68.0 Estimated GFR (Non- 58.7 BUN/Creatinine Ratio 24.0 10-20 Random Glucose 126 70-99 mg/dl Calcium Level 8.7 8.5-10.1 mg/dl Test 07/26/16 06:58 Range/Units Bedside Glucose 126 70-90 mg/dl
--- NOTE | 2016-07-26 12:13 | Cardiology Follow-Up ---
Subjective General Date of Service: Jul 26, 2016. Chief Complaint: FOLLOW UP ATRIAL FIBRILLATION RVR, EXERTIONAL SOB Pt evaluation today including: conversation w/ patient, physical exam History of Present Illness The patient is a 66 year old female seen in followup. Patient feels improved from a shortness of breath standpoint. Telemetry reveals that she has maintained sinus rhythm with sinus rhythm and sinus bradycardia noted. She is tolerating oral amiodarone and oral metoprolol well. She is on heparin bridge with Coumadin. INR today is 1.3. Allergies Coded Allergies: Penicillins (Verified Allergy, Intermediate, URTICARIA; PER PT, CAN TAKE AMOXICILLIN, 07/19/16) Erythromycin (Verified Adverse Reaction, Mild, GI UPSET, 07/19/16) Social History Smoking Status: Never Smoker Hx Tobacco Use In Past Year?: No Hx Alcohol Use - Type And Amou: Yes (occasional mixed drink or glass of wine) Hx Substance Use - Type And Am: No Problem List Medical Problems: (1) Acute congestive heart failure Status: Acute (2) Heme positive stool Status: Acute Physical Exam Vital Signs Last Vital Signs Documentation Date Time Temp Pulse Resp B/P Pulse Ox O2 Delivery O2 Flow Rate FiO2 07/26/16 07:05 36.7 61 20 115/56 95 Room Air 07/25/16 20:32 2.0 Physical Exam Constitutional: General Apperance: obese Neck: supple Lungs: Auscultation: pertinent finding (decrease breathsounds at the bases) Cardiovascular: Heart Auscultation: RRR, no murmurs Extremities: pertinent finding (1+ bilateral lower extremity edema ) Neurologic: Gait & Station: pertinent finding (no focal deficits ) Assessment and Plan Assessment and Plan Impression: 66 year old female 1. Symptomatic AF ,RVR-converted to SR on amiodarone infusion 07/23/16 2. Volume overload, normal LVEF, diastolic dysfunction 3. Chronic anemia (iron deficiency confirmed), h/o GI bleed, heme occult positive stool 4. Morbid obesity, likely underlying obstructive sleep apnea. Nocturnal desaturations noted on nocturnal pulse ox. Plan: Continue amiodarone 400 mg PO BID. Continue metoprolol 100 mg BID Off of oral diltiazem and attempt to simplify her oral medication regimen to metoprolol plus amiodarone for rhythm control. Bumex IV 1 mg BID at 7 am, 1400 daily, spironolactone, KCL supplement. Anemia-hemoglobin stable on heparin/Coumadin. Stroke prophylaxis: continue heparin bridge to coumadin. Patient with steady clinical improvement. Continue diuresis, and wait for her INR to become therapeutic. She will need outpatient follow-up at the [facility] anticoagulation clinic as well as outpatient sleep medicine consultation and cardiology follow-up. I plan for her to be on a short-term course of amiodarone , hopefully 3 months or less. It is likely that her volume overload and atrial fibrillation was provoked by prednisone and ibuprofen use in a patient who certainly has underlying risk factors for atrial fibrillation. Laboratory Results Last 24 Hours Test 07/25/16 16:32 07/25/16 20:41 07/26/16 06:35 07/26/16 06:58 Bedside Glucose 123 mg/dl 133 mg/dl 126 mg/dl White Blood Count 5.84 K/uL Red Blood Count 3.49 M/uL Hemoglobin 9.1 g/dL Hematocrit 28.2 % Mean Corpuscular Volume 80.8 fL Mean Corpuscular Hemoglobin 26.1 pg Mean Corpuscular Hemoglobin Concent 32.3 g/dl RDW Standard Deviation 46.3 fL RDW Coefficient of Variation 15.7 % Platelet Count 227 K/uL Mean Platelet Volume 9.7 fL Prothrombin Time 13.8 SECONDS Prothromb Time International Ratio 1.3 Activated Partial Thromboplast Time 76.9 SECONDS Partial Thromboplastin Ratio 3.0 Sodium Level 139 mmol/L Potassium Level 4.2 mmol/L Chloride Level 101 mmol/L Carbon Dioxide Level 28 mmol/L Anion Gap 10.0 mmol/L Blood Urea Nitrogen 24 mg/dl Creatinine 1.00 mg/dl Est Creatinine Clear Calc Drug Dose 78.6 ml/min Estimated GFR () 68.0 Estimated GFR (Non- 58.7 BUN/Creatinine Ratio 24.0 Random Glucose 126 mg/dl Calcium Level 8.7 mg/dl Test 07/26/16 11:20 Bedside Glucose 168 mg/dl
[2016-07-26 15:06] LABS: PARTIAL THROMBOPLASTIN RATIO 2.7
[2016-07-26] MEDS: WARFARIN SOD 7.5 MG TAB PO SCH (16:16)
[2016-07-26] MEDS: SIMVASTATIN 10 MG TAB PO SCH (21:09)
[2016-07-26] MEDS: ALLOPURINOL 100 MG TAB PO SCH (21:09)
[2016-07-27 02:52] VITALS: BP 129/53; PULSE 58; TEMP 36.4; O2SAT 93
[2016-07-27] MEDS: HEPARIN 25,000 UNIT/500ML D5W 500 ML IV PRN (04:35)
[2016-07-27 07:02] VITALS: BP 126/72; PULSE 59; TEMP 36.6; O2SAT 94
[2016-07-27] MEDS: TRAMADOL HCL 50 MG TAB PO PRN (07:45)
[2016-07-27] MEDS: METOPROLOL TARTRATE 100 MG TAB PO SCH (07:46)
[2016-07-27] MEDS: FERROUS SULFATE 325 MG TAB PO SCH (07:46)
[2016-07-27] MEDS: BUMETANIDE IV 1 MG in SYRINGE 0 ML IV SCH (07:46)
[2016-07-27] MEDS: ASPIRIN 81 MG ECTAB PO SCH (07:46)
[2016-07-27] MEDS: PANTOprazole SOD 40 MG TAB PO SCH (07:47)
[2016-07-27] MEDS: POTASSIUM CHLORIDE 20 MEQ TABCR PO SCH (07:47)
[2016-07-27] MEDS: CHOLECALCIFEROL 1000 INTER.UNIT TAB PO SCH (07:47)
[2016-07-27] MEDS: MULTIVITAMIN TAB PO SCH (07:48)
[2016-07-27] MEDS: SPIRONOLACTONE 25 MG TAB PO SCH (07:49)
[2016-07-27] MEDS: AMIODARONE 200 MG TAB PO SCH (07:49)
[2016-07-27] MEDS: MAGNESIUM OXIDE 400 MG TAB PO SCH (07:49)
[2016-07-27] MEDS: INSULIN ASPART 100 UNITS/ML 3 ML PEN SC SCH ×2 (07:56→12:27)
[2016-07-27 08:09] LABS: INR 1.3 (0.9-1.1); PROTHROMBIN TIME (PATIENT) 14.5 SECONDS (9.0-12.0)
[2016-07-27 08:23] LABS: CALCIUM 9.1 mg/dl (8.5-10.1); POTASSIUM 4.3 mmol/L (3.5-5.1)
[2016-07-27 09:07] LABS: PARTIAL THROMBOPLASTIN RATIO 2.3
--- NOTE | 2016-07-27 10:08 | Cardiology Follow-Up ---
Subjective General Date of Service: Jul 27, 2016. Chief Complaint: FOLLOW UP ATRIAL FIBRILLATION RVR, EXERTIONAL SOB Pt evaluation today including: conversation w/ patient, physical exam History of Present Illness The patient is a 66 year old female seen in follow up. Patient denies chest pain or palpitations. Telemetry reveals stable sinus rhythm and sinus bradycardia. EKG this am reveals SB at 58 bpm , with stable QTc of 475 ms. Pt still has edema, but this is improved somewhat, and judging by the venous stasis changes on her legs, I anticipate there is some degree of chronicity with this problem. Allergies Coded Allergies: Penicillins (Verified Allergy, Intermediate, URTICARIA; PER PT, CAN TAKE AMOXICILLIN, 07/19/16) Erythromycin (Verified Adverse Reaction, Mild, GI UPSET, 07/19/16) Social History Smoking Status: Never Smoker Hx Tobacco Use In Past Year?: No Hx Alcohol Use - Type And Amou: Yes (occasional mixed drink or glass of wine) Hx Substance Use - Type And Am: No Problem List Medical Problems: (1) Acute congestive heart failure Status: Acute (2) Heme positive stool Status: Acute Physical Exam Vital Signs Last Vital Signs Documentation Date Time Temp Pulse Resp B/P Pulse Ox O2 Delivery O2 Flow Rate FiO2 07/27/16 07:02 36.6 59 16 126/72 94 Room Air 07/26/16 16:00 2.0 Physical Exam Constitutional: General Apperance: obese Neck: supple Lungs: Auscultation: pertinent finding (decrease breathsounds at the bases) Cardiovascular: Heart Auscultation: RRR, no murmurs Extremities: pertinent finding (1+ bilateral lower extremity edema ) Neurologic: Gait & Station: pertinent finding (no focal deficits ) Assessment and Plan Assessment and Plan Impression: 66 year old female 1. Symptomatic AF ,RVR-converted to SR on amiodarone infusion 07/23/16 2. Volume overload, normal LVEF, diastolic dysfunction-improving 3. Chronic anemia (iron deficiency confirmed), h/o GI bleed, heme occult positive stool 4. Morbid obesity, likely underlying obstructive sleep apnea. Nocturnal desaturations noted on nocturnal pulse ox. Plan: Stable for discharge on the following medications: Reduce amiodarone to 200 mg BID. Continue metoprolol 100 mg BID Bumex 1 mg PO daily in am (replaced home furosemide) Spironolactone 25 mg PO daily in am Simvastatin 10 mg PO daily at bedtime (dose reduced due to amiodarone administration) Coumadin 7.5 mg daily, INR 1.3 today. Heparin Discontinued. Protonix 40 mg PO daily. Magnesium and Potassium chloride supplements have been discontinued. Aspirin 81 mg daily discontinued (favor monotherapy with coumadin given anemia) Resume lisinopril, was on 40 mg prior to hospital, DC on 20 mg daily since metoprolol added. Off of oral diltiazem and attempt to simplify her oral medication regimen to metoprolol plus amiodarone for rhythm control. Disposition: cardio follow up as outpt in 1-2 weeks with me or PA- requested. Anticoag clinic referral order placed in [facility] record. Sleep med consult requested in [employer] record. Case discussed with Dr Malaika Urbina. Laboratory Results Last 24 Hours Test 07/26/16 11:20 07/26/16 14:36 07/26/16 16:10 07/26/16 20:38 Bedside Glucose 168 mg/dl 113 mg/dl 118 mg/dl Activated Partial Thromboplast Time 69.6 SECONDS Partial Thromboplastin Ratio 2.7 Test 07/27/16 07:04 07/27/16 07:40 Bedside Glucose 131 mg/dl Prothrombin Time 14.5 SECONDS Prothromb Time International Ratio 1.3 Activated Partial Thromboplast Time 59.0 SECONDS Partial Thromboplastin Ratio 2.3 Sodium Level 138 mmol/L Potassium Level 4.3 mmol/L Chloride Level 100 mmol/L Carbon Dioxide Level 31 mmol/L Anion Gap 7.0 mmol/L Blood Urea Nitrogen 23 mg/dl Creatinine 1.00 mg/dl Est Creatinine Clear Calc Drug Dose 78.0 ml/min Estimated GFR () 68.0 Estimated GFR (Non- 58.7 BUN/Creatinine Ratio 23.0 Random Glucose 130 mg/dl Calcium Level 9.1 mg/dl
--- NOTE | 2016-07-27 10:54 | Progress Note ---
Internal Med Progress Note Date of Service: Jul 27, 2016. Provider Documentation: SUBJECTIVE : Patient is feeling much better today. SOB has improved, near baseline and eager to be discharged. Leg swelling bilaterally same as before. Urinary output - not much No palpitations, chest pain, cough, fever, chills, nausea, vomiting, urinary burning/frequency. Tele- Atrial fibrillation with RVR --> Converted to NSR on 07/24/16 night, NSR maintained at rate of 50-60s OBJECTIVE: Vital Signs-as noted below Exam: General- Oriented x 3, not in distress, speaks in sentences with no effort Neck- supple Lungs- mild rales bilateral bases-improved, no wheezes Heart- NSR, no murmurs Extremities- grade 2 lower leg edema, mild warmth/erythema; no calf tenderness Neuro- alert, oriented x 3; no gross focal neuro deficit Lab data as noted below. ASSESSMENT & PLAN: 66 year old female with history of DM, HTN, CKD 3, Gout, GI bleed presenting with shortness of breath secondary to new onset Atrial fibrillation with RVR, acute pulmonary edema ATRIAL FIBRILLATION WITH RVR, NEW ONSET : -- > Converted to NSR , maintaining NSR ACUTE PULMONARY EDEMA : Improved, near her baseline Clinically volume overloaded; + weight gain, edema, bibasilar crackles; BNP ~ 1700 - CXR shows cardiomegaly, Rt base infiltrate; clinically no symptoms of pneumonia; no fever; no leukocytosis. -Received IV Lasix doses with no improvement. -S/P IV Bumex BID started on 07/23/16--> Change to PO Bumex 1 mg in AM, Spironolactone 25 mg PO in AM. -Metoprolol 100 mg PO BID on discharge, Amiodarone 200 mg PO BID--for rhythm control. Discontinue Diltiazem. -Anticoagulation: ASA discontinued. Coumadin started on 07/21/16; IV heparin on . Need to monitor closely as high risk of bleeding with hx of severe GI bleeding in past, FOBT + ve possibly has chronic GI bleeding with anemia. So far tolerating it well--> Coumadin to be continued with goal INR 2-3 -Echo- A fib with RVR, LVEF=55%, LA -mild dilation, Rt ventricular function- slightly low, Mild MR, Pulmonary hypertension suspected ; Troponin x 3 negative -Cleared for discharge to home by cardiology UTI- ECOLI UA +VE, Urine cx= E coli -On Kelfex BID (Day 09/04). Last day 07/26/16 -Followed up c/s (per patient she has even tolerated amoxicillin, cefalosporins in past) CHRONIC ANEMIA, IRON DEFICIENCY Hg is 10.5; was running 11's in 2014; ran 11 or lower since 2012 Hx severe GIB from peptic ulcer secondary to H pylori in 2012; required transfusion of 5 units at that time for Hg in 4's FOBT positive in ER; Repeat FOBT pending Does not appear to be acutely bleeding, Likely longstanding slow GIB; at risk for ulcer with recent NSAID and prednisone use, but not having epigastric pain, hematochezia or melena -No overt signs of GI bleeding -Started on Coumadin/IV Heparin as above--> ASA discontinued, Coumadin to be continued on discharge -S/P IV Iron rx on 07/24/16 -Continue with protonix daily -Monitor H & H outpatient BILATERAL HILAR PROMINENCE IMPRESSION: 1. Improvement in the patchy bibasilar densities. 2. Small bilateral pleural effusions and cardiomegaly persist. 3. Bilateral hilar prominence, unchanged. This could be due to pulmonary vascular congestion versus hilar lymphadenopathy. Recommend follow-up to ensure resolution. -- follow up CXR needed outpatient HYPERTENSION BP was borderline low on presentation -Lisinopril dose decreased to 20 mg from 40 mg , amlodipine discontinued as added Metoprolol. Lasix changed to Bumex, spironolactone -Monitor outpatient DM TYPE 2 -Hold pioglitazone- metformin -Insulin sliding scale coverage -Checked A1c -7.3 CKD STAGE III Cr is 1.1; stable at baseline -Monitor renal function while on diuretics DYSLIPIDEMIA -Continue statin (decreased simvastatin from 20 mg to 10 mg per cardiology) MORBID OBESITY Likely EDYTA Nocturnal pulse oximetry noted with desaturations -Sleep study set up request for outpatient sent by cardiology DVT PROPHYLAXIS -SCD's due to hemoccult positive stool FULL CODE DISPOSITION Patient is eager to be discharged Anticoagulation clinic set up requested Sleep study request sent in by Dr Foster Follow up with cardiology in 1-2 weeks Follow up with PCP in 1 week Vital Signs: Date Time Temp Pulse Resp B/P Pulse Ox O2 Delivery O2 Flow Rate FiO2 07/27/16 07:02 36.6 59 16 126/72 94 Room Air 07/27/16 04:14 Room Air 07/27/16 02:52 36.4 58 17 129/53 93 Room Air 07/27/16 00:00 Room Air 07/26/16 23:10 36.7 57 18 109/63 93 Room Air 07/26/16 20:00 95 Room Air 07/26/16 19:24 36.9 95 20 130/52 95 Room Air 07/26/16 16:00 91 Room Air 2.0 07/26/16 15:32 36.9 67 18 150/77 91 Room Air 07/26/16 12:40 36.9 67 22 117/68 90 Room Air Lab Results: Results Past 24 Hours Test 07/26/16 11:20 07/26/16 14:36 07/26/16 16:10 07/26/16 20:38 Range/Units Bedside Glucose 168 113 118 70-90 mg/dl Activated Partial Thromboplast Time 69.6 21.0-31.0 SECONDS Partial Thromboplastin Ratio 2.7 Test 07/27/16 07:04 07/27/16 07:40 Range/Units Bedside Glucose 131 70-90 mg/dl Prothrombin Time 14.5 9.0-12.0 SECONDS Prothromb Time International Ratio 1.3 0.9-1.1 Activated Partial Thromboplast Time 59.0 21.0-31.0 SECONDS Partial Thromboplastin Ratio 2.3 Sodium Level 138 136-145 mmol/L Potassium Level 4.3 3.5-5.1 mmol/L Chloride Level 100 98-107 mmol/L Carbon Dioxide Level 31 21-32 mmol/L Anion Gap 7.0 3-11 mmol/L Blood Urea Nitrogen 23 7-18 mg/dl Creatinine 1.00 0.60-1.20 mg/dl Est Creatinine Clear Calc Drug Dose 78.0 ml/min Estimated GFR () 68.0 Estimated GFR (Non- 58.7 BUN/Creatinine Ratio 23.0 10-20 Random Glucose 130 70-99 mg/dl Calcium Level 9.1 8.5-10.1 mg/dl
[2016-07-27] MEDS ORDERED: LPR100 PO (10:58)
[2016-07-27] MEDS ORDERED: CRD200 PO (10:58)
[2016-07-27] MEDS ORDERED: BMX1 PO (10:58)
[2016-07-27] MEDS ORDERED: LISI40TA PO (10:58)
[2016-07-27] MEDS ORDERED: FRRS300 PO (10:58)
[2016-07-27] MEDS ORDERED: SPR25 PO (10:58)
[2016-07-27] MEDS ORDERED: ZCR10 PO (10:58)
--- NOTE | 2016-07-27 11:00 | Discharge Summary ---
Discharge Summary Date of Service Jul 27, 2016. Discharge Summary Admission Date: Jul 19, 2016 at 17:22 Discharge Date: Jul 27, 2016 Discharge Disposition: Home Principal Diagnosis: 1. Atrial Fibrillation with RVR 2. Acute Pulmonary Edema 3. UTI (E coli) Secondary Diagnoses/Problems: 1. HTN 2. DM-2 3. CKD-III 4. Dyslipidemia 5. Probable EDYTA 6. Morbid Obesity Procedures: Tele monitoring Serial CXR IV Heparin drip IV diuresis with bumex Nocturnal sleep oximetry study Echocardiogram Consultations: 1. Cardiology, Dr Foster Pending Studies/Follow-Up: Instructions / Follow-Up Instructions / Follow-Up MEDICATION CHANGES: 1. New medication: Amiodarone 200 mg PO BID 2. New medication: Spironolactone 25 mg daily in AM 3. New medication: Bumex 1 mg PO daily in AM. Discontinue Lasix 4. New medication: Coumadin 7.5 mg PO today and daily in evening till next Coumadin clinic appointment (INR today 1.3) 5. Changed Metoprolol dosing to 100 mg PO BID 6. Changed Lisinopril dosing to 20 mg from 40 mg daily as added metoprolol 7. Changed Simvastatin dose to 10 mg from 20 mg due to starting amiodarone 8. Discontinued Norvasc as added Metoprolol 9. Discontinued Aspirin as started you on coumadin 10. Discontinued Diflucan due to multiple meds changes and new medications including amiodarone administration RECOMMENDATIONS: 1. Need sleep study outpatient as night time you do have desaturations noted during sleep study FOLLOW UP 1. With Dr Whitmore 07/31/16 at 11:30 AM 2. With cardiology in 1-2 weeks (requested). Will receive call for appt date/ time 3. With coumadin clinic (appt requested). Will receive call for appt date/time Medication Reconciliation New Medications: Amiodarone HCl (Amiodarone HCl) 200 Mg Tab 200 MG PO BID for 30 Days, #60 TAB Bumetanide (Bumetanide) 1 Mg Tab 1 MG PO 1400 for 30 Days, #30 TAB Ferrous Sulfate (Ferrous Sulfate) 325 Mg Tab 325 MG PO BIDM for 30 Days, #60 TAB Metoprolol Tartrate (Metoprolol Tartrate) 100 Mg Tab 100 MG PO BID for 30 Days, #60 TAB Simvastatin (Simvastatin) 10 Mg Tab 10 MG PO PM for 30 Days, #30 TAB Spironolactone (Spironolactone) 25 Mg Tab 25 MG PO QAM for 30 Days, #30 TAB Changed Medications: Lisinopril (Zestril) 40 Mg Tab 20 MG PO DAILY for 30 Days, #30 TAB (Changed from: 40 MG) Continued Medications: Acetaminophen (Tylenol) 500 Mg Tab 1 TAB PO BID PRN for Pain for 3 Days, #10 TAB Allopurinol (Zyloprim) 100 Mg Tab 2 TAB PO HS for 30 Days, TAB 5 Refills Cholecalciferol (Vitamin D) 5,000 Unit Tab 1 TAB PO QAM Misc Natural Products (Cosamin Asu Advanced Life) 1 Cap Cap 1 CAP PO QAM Multiple Vitamin (Multivitamin) 1 Tab Tab 1 TAB PO DAILY, TAB Omeprazole (Prilosec) 20 Mg Capcr 20 MG PO DAILY, CAP Pioglitazone Hcl-Metformin 15/850 Mg (Actoplus Met 15/850 Mg) 1 Tab Tab 1 TAB PO BID, TAB Tramadol (Ultram) 50 Mg Tab 2 TAB PO QID PRN for Pain for 30 Days, #240 TAB Discontinued Medications: Amlodipine Besylate (Norvasc) 10 Mg Tab 10 MG PO DAILY, TAB Aspirin (Aspirin Ec) 81 Mg Tab 81 MG PO DAILY Fluconazole (Diflucan) 200 Mg Tab 1 TAB PO WK for 7 Days, TAB Furosemide (Lasix) 80 Mg Tab 80 MG PO DAILY, TAB Simvastatin (Zocor) 20 Mg Tab 1 TAB PO HS for 90 Days, #90 TAB 1 Refill Admission Information HPI (per Admitting provider): This is a 66 y/o female with PMH of HTN, DM type 2, HL, OA, gout, hx severe GIB secondary to gastric ulcer H Pylori positive in 2012, chronic anemia, who presents to the ED with dyspnea on exertion. Patient states HERRERA started 5 days ago. She initially attributed it to anemia. No SOB at rest. Chronically sleeps propped up. Breathing comfortably currently. She has not felt any palpitations but yesterday took her pulse and found it was irregular. She reports 10-15 lb weight gain and increase from chronic BLLE edema over past 1 week. She had 2 episodes of liquid stool this morning. She reports she has "a cold" with nasal congestion, postnasal drip, sore throat. Denies fevers, chills, cough, dizziness , chest pain, acid reflux, abdominal pain, N/V, urinary changes, calf pain, increase in chronic LE erythema, focal neuro symptoms. She recently was taking prednisone (took for 10 days- stopped 1 wk ago) for a gout flare and ibuprofen for chronic OA pain (stopped 3 days ago). Last EGD was in 2012 with gastric ulcers. No history of arrhythmia, CHF, CAD, TIA, CVA. No prior echo or stress test. Physical Exam (per Admitting): General Appearance: WD/WN, no apparent distress, + pertinent finding ( plesant alert 66 year old female, daughter and son in law at bedside) Head: normocephalic, atraumatic Eyes: normal inspection, PERRL, EOMI ENT: hearing grossly normal, pharynx normal Neck: supple, no JVD, trachea midline Respiratory/Chest: no respiratory distress, no accessory muscle use, + crackles (bilateral bases) Cardiovascular: no murmur, + irregularly irregular (rate fluctuating between 110s-130s) Abdomen/GI: normal bowel sounds, non tender, soft Extremities/Musculoskelatal: no calf tenderness, + pertinent finding (2-3+ pitting pretibial edema up to the knees bilaterally) Neurologic/Psych: alert, normal mood/affect, oriented x 3, + pertinent finding (grossly nonfocal) Skin: warm/dry, + pertinent finding (few scabbed abrasions on right lower leg, erythema bilateral lower legs above the ankles- unchanged from baseline per patient, no tenderness or warmth) Hospital Course 66 year old female with history of DM, HTN, CKD 3, Gout, GI bleed presenting with shortness of breath secondary to new onset Atrial fibrillation with RVR, acute pulmonary edema ATRIAL FIBRILLATION WITH RVR, NEW ONSET : -- > Converted to NSR , maintaining NSR ACUTE PULMONARY EDEMA : Improved, near her baseline Clinically volume overloaded; + weight gain, edema, bibasilar crackles; BNP ~ 1700 - CXR shows cardiomegaly, Rt base infiltrate; clinically no symptoms of pneumonia; no fever; no leukocytosis. -Received IV Lasix doses with no improvement. -S/P IV Bumex BID started on 07/23/16--> Change to PO Bumex 1 mg in AM, Spironolactone 25 mg PO in AM. -Metoprolol 100 mg PO BID on discharge, Amiodarone 200 mg PO BID--for rhythm control. Discontinue Diltiazem. -Anticoagulation: ASA discontinued. Coumadin started on 07/21/16; IV heparin on . Need to monitor closely as high risk of bleeding with hx of severe GI bleeding in past, FOBT + ve possibly has chronic GI bleeding with anemia. So far tolerating it well--> Coumadin to be continued with goal INR 2-3 -Echo- A fib with RVR, LVEF=55%, LA -mild dilation, Rt ventricular function- slightly low, Mild MR, Pulmonary hypertension suspected ; Troponin x 3 negative -Cleared for discharge to home by cardiology UTI- ECOLI UA +VE, Urine cx= E coli -On Kelfex BID (Day 09/04). Last day 07/26/16 -Followed up c/s (per patient she has even tolerated amoxicillin, cefalosporins in past) CHRONIC ANEMIA, IRON DEFICIENCY Hg is 10.5; was running 11's in 2014; ran 11 or lower since 2012 Hx severe GIB from peptic ulcer secondary to H pylori in 2012; required transfusion of 5 units at that time for Hg in 4's FOBT positive in ER; Repeat FOBT pending Does not appear to be acutely bleeding, Likely longstanding slow GIB; at risk for ulcer with recent NSAID and prednisone use, but not having epigastric pain, hematochezia or melena -No overt signs of GI bleeding -Started on Coumadin/IV Heparin as above--> ASA discontinued, Coumadin to be continued on discharge -S/P IV Iron rx on 07/24/16 -Continue with protonix daily -Monitor H & H outpatient BILATERAL HILAR PROMINENCE IMPRESSION: 1. Improvement in the patchy bibasilar densities. 2. Small bilateral pleural effusions and cardiomegaly persist. 3. Bilateral hilar prominence, unchanged. This could be due to pulmonary vascular congestion versus hilar lymphadenopathy. Recommend follow-up to ensure resolution. -- follow up CXR needed outpatient HYPERTENSION BP was borderline low on presentation -Lisinopril dose decreased to 20 mg from 40 mg , amlodipine discontinued as added Metoprolol. Lasix changed to Bumex, spironolactone -Monitor outpatient DM TYPE 2 -Hold pioglitazone- metformin -Insulin sliding scale coverage -Checked A1c -7.3 CKD STAGE III Cr is 1.1; stable at baseline -Monitor renal function while on diuretics DYSLIPIDEMIA -Continue statin (decreased simvastatin from 20 mg to 10 mg per cardiology) MORBID OBESITY Likely EDYTA Nocturnal pulse oximetry noted with desaturations -Sleep study set up request for outpatient sent by cardiology DVT PROPHYLAXIS -SCD's due to hemoccult positive stool FULL CODE DISPOSITION Patient is eager to be discharged Anticoagulation clinic set up requested Sleep study request sent in by Dr Foster Follow up with cardiology in 1-2 weeks Follow up with PCP in 1 week Total time spent on discharge = 45 minutes This includes examination of the patient, discharge planning, medication reconciliation, and communication with other providers. Discharge Instructions Discharge Goals Goal(s): Improve disease control, Therapeutic intervention, Prevent Disease Progression Activity Recommendations Activity Limitations: resume your previous activity (as tolerated prior to admission) . Instructions / Follow-Up Instructions / Follow-Up MEDICATION CHANGES: 1. New medication: Amiodarone 200 mg PO BID 2. New medication: Spironolactone 25 mg daily in AM 3. New medication: Bumex 1 mg PO daily in AM. Discontinue Lasix 4. New medication: Coumadin 7.5 mg PO today and daily in evening till next Coumadin clinic appointment (INR today 1.3) 5. Changed Metoprolol dosing to 100 mg PO BID 6. Changed Lisinopril dosing to 20 mg from 40 mg daily as added metoprolol 7. Changed Simvastatin dose to 10 mg from 20 mg due to starting amiodarone 8. Discontinued Norvasc as added Metoprolol 9. Discontinued Aspirin as started you on coumadin 10. Discontinued Diflucan due to multiple meds changes and new medications including amiodarone administration RECOMMENDATIONS: 1. Need sleep study outpatient as night time you do have desaturations noted during sleep study FOLLOW UP 1. With Dr Whitmore 07/31/16 at 11:30 AM 2. With cardiology in 1-2 weeks (requested). Will receive call for appt date/ time 3. With coumadin clinic (appt requested). Will receive call for appt date/time Call your Primary Care doctor if any of the following symptoms or problems start or get worse: * Shortness of breath or difficulty breathing * Wake up at night short of breath * Chest pain * Cough * Swelling of your hands, feet, or legs * More fatigued or tired with your normal activity * Palpitations - sudden fast heart beats WEIGHT * Weigh yourself every morning after using the bathroom. * Use the same scale. * Wear the same amount of clothing. * Write your weight down on a chart. * Call your Primary Care doctor if you gain more than 2-3 pounds in 1-2 days. MEDICATIONS * Use this discharge instruction sheet for medication instructions. * Take your medications at the time your doctor ordered. * Do not skip a dose of your medicines. * If you miss a dose of medicine, take it as soon as possible, but DO NOT DOUBLE A DOSE. * Read your medicine information when you get home. * Know all of the side effects of your medicine. If in doubt, ask your pharmacist * Call your Primary Care doctor's office if you have any side effects. * Be sure all of your doctors know what medicine and herbs you take (including cold, flu, and herbal medicine). Take the following with you to your follow-up doctor appointments: * Weight Chart * Medication List * List of questions Do not drink excessive alcohol, beer or wine. Current Hospital Diet Patient's current hospital diet: AHA Diet (Heart Healthy), Diabetes Type 2 Diet Discharge Diet Recommended Diet: AHA Diet (Heart Healthy), Low Sodium Diet (2gm Na), Diabetes Type 2 Diet Pending Studies Studies pending at discharge: no Laboratory Results Hemoglobin A1c Test 07/20/16 03:01 Range/Units Estimated Average Glucose 163 mg/dl Hemoglobin A1c 7.3 H 4.5-5.6 % Medical Emergencies . Who to Call and When: Call 911 or go to the Emergency Room if: * If at any time you feel your situation is an emergency * You have tightness or pain in your chest that does not go away with rest or Nitroglycerin * You are very short of breath even with rest . Non-Emergent Contact Non-Emergency issues call your: Primary Care Provider . . "Provider Documentation" section prepared by Ofelia Urbina. VTE Core Measure Inpt VTE Proph given/why not?: Warfarin (Coumadin), Other Anticoagulation (IV heparin)
[2016-07-27 12:11] VITALS: BP 126/72; PULSE 59; TEMP 36.6; O2SAT 94
[2016-07-27] MEDS ORDERED: BUMETANIDE 1 MG TAB PO ONE (14:00)
[2016-07-27] MEDS ORDERED: WARFARIN SOD 10 MG TAB PO SCH (16:00)
[2016-07-27] MEDS ORDERED: AMIODARONE 200 MG TAB PO ONE (21:00)
[2016-10-15] MEDS ORDERED: WARF-246 PO (06:54)
[2016-10-15] MEDS ORDERED: CHOL1000 PO (06:54)
[2017-01-13] MEDS ORDERED: LISI40TA PO (08:52)
[2017-01-13] MEDS ORDERED: REPA1TAB42 PO (08:52)
[2017-01-13] MEDS ORDERED: METF-383 PO (08:52)
[2017-01-18] MEDS ORDERED: SULF800T23 PO (08:35)
== END 2016-07-27 13:20 | disposition home or self-care (01) | DRG 308 ==
LOC: ENRESERVTM → ENRESERVDT → C.EDB 13:11 → C.2T 17:22
PROVIDERS: ADMIT Internal Medicine; ATTEND Internal Medicine
DX: I48.91 Unspecified atrial fibrillation (principal); J81.0 Acute pulmonary edema; Z68.44 Body mass index [BMI] 60.0-69.9, adult; N39.0 Urinary tract infection, site not specified; J90 Pleural effusion, not elsewhere classified; E11.9 Type 2 diabetes mellitus without complications; M10.9 Gout, unspecified; I12.9 Hypertensive chronic kidney disease with stage 1 through stage 4 chronic kidney disease, or unspecified chronic kidney disease; N18.3 Chronic kidney disease, stage 3 (moderate); E78.5 Hyperlipidemia, unspecified; Z85.828 Personal history of other malignant neoplasm of skin; M19.90 Unspecified osteoarthritis, unspecified site; Z83.3 Family history of diabetes mellitus; Z88.0 Allergy status to penicillin; E66.01 Morbid (severe) obesity due to excess calories; Z96.659 Presence of unspecified artificial knee joint; B96.20 Unspecified Escherichia coli [E. coli] as the cause of diseases classified elsewhere; G47.33 Obstructive sleep apnea (adult) (pediatric); I27.2 Other secondary pulmonary hypertension; K27.9 Peptic ulcer, site unspecified, unspecified as acute or chronic, without hemorrhage or perforation; E87.6 Hypokalemia; R19.5 Other fecal abnormalities

== ENCOUNTER → 2016-10-15 | Day surgery (SDC) | payer OTHER ==
[~2016-10-15] MED LIST changes: +ACET-1256 PO; +ALLO100T PO; -AMLO10TA4 PO; -AMOX500C3 PO; -ASPI325T4 PO; +BMX1 PO; -CALCTAB7 PO; +CEPH500C PO; +CHOL1000 PO; +CHOL1TAB42 PO; +CRD200 PO; +FRRS300 PO; -FURO80TA63 PO; -GLUC10007 PO; +IBUP-1459 PO; +LPR100 PO; +METF-383 PO; +MISC1CAP PO; -OMEG10007 PO; -PANT1TAB48 PO; +PRLSR20 PO; +REPA1TAB40 PO; +SPR25 PO; +SULF800T23 PO; +TRAM-10 PO; +WARF-246 PO; +ZCR10 PO; -[UNRECOGNIZED DRUG - CODE] PO
== END | disposition home or self-care (01) ==
LOC: C.CATH 06:35
PROVIDERS: ATTEND Internal Medicine Cardiovascular Disease
DX: I48.92 Unspecified atrial flutter (principal); Z53.8 Procedure and treatment not carried out for other reasons

== ENCOUNTER → 2016-12-09 | Outpatient (CLI) | payer OTHER ==
[~2016-12-09] MED LIST changes: -CEPH500C PO; -CHOL1TAB42 PO; -IBUP-1459 PO; -REPA1TAB40 PO; +REPA1TAB42 PO
--- NOTE | 2016-12-10 05:52 | PAP/PSG TECHNICIAN REPORT ---
[facility] Strategic Sourcing Consultant Polysomnogram Report Study name: None Report date: 12/10/2016 Study date: 12/09/2016 Referring Physician: Emiliano ZARATE M.D. Name: Alex PAUILNO Interpreting Physician: Catalino Zarate M.D. Date of : 1950 Strategic Sourcing Consultant: Meche Clement RPSGT. Sex: Female Age: 66 Study Type: PSG Weight: 303 lbs 14.5 in Height: 66 years, Height 5' 0.5" Neck Circum: BMI: 58.2 Medications: METFORMIN 850 MG, REPAGLINIDE 0.5 MG, AMIODARONE 200 MG, IBUPROFEN 400 MG, BUMETANIDE 1 MG, METOPROLOL 100 MG, ALDACTONE 25 MG, LISINOPRIL 20 MG, SIMVASTATIN 10 MG, FERROUS SULFATE 325 MG, WARFARIN 5 MG, ALLOPURINOL 100 MG, OMEPRAZOLE 20 MG, COSAMIN ASU, TRAMADOL 50 MG, MULTI VIT, VIT D 1000 UNIT Patient History 66 yr-old female here for a baseline/split study. She has a history of loud snoring and daytime sleepiness. She is sleeping with the head of her bed elevated. This is how she sleeps at home. Her [place] scale is 13. The test was started on room air. ETOC2 testing is included in this study. Room 7 Parameters Monitored NPSG: E1-M2, E2-M1, Fp1-M2, Fp2-M1, F3-M2, F4-M2, F4-M1, C3-M2, C4-M2, C4-M1, O1-M2, O2-M2, O2-M1, T3-M2, T4-M1, P3-M2, P4-M1, CHIN1, CHIN2, HR, EKG, Legs, PFLOW, SNOR, FLOW, CFLOW, Tidal Volume, THOR, ABDO, SpO2, PLTH, CPRESS, ETCO2 Wave, ETCO2, pH Sleep Architecture Sleep Stages Time at Lights Off 10:56:32 PM STAGES Time (min.) TST (%) Time at Lights On 5:33:32 AM Wake 58.5 -- Total Recording Time (TRT) 397.00 min. N1 43.5 13 Total Sleep Period (TSP) 381.5 min. N2 295.0 87 Total Sleep Time (TST) 338.5min. N3 0.0 0 Awake Time 58.5 min. REM 0.0 0 Wake after Sleep Onset 43.0 min. Sleep Efficiency (SE) 85 % Sleep Onset Latency (CASSIE) 15.5 min. Number of Stage 1 Shifts None Awakenings 26 Stage Changes 113 Number of REM periods N/A REM 0.0 0 REM Latency NONE min. NREM 338.5 100 Body Position Analysis Supine Right Left Side Prone Vertical Total Sleep Time (min.) 397.0 0.0 0.0 0.00 0.0 0.0 Total Sleep Time (%) 100% 0% 0% 0 0% N/A% Total Sleep Time REM (min.) 0.0 0.0 0.0 None 0.0 0.0 Total Sleep Time NREM (min.) 338.5 0.0 0.0 None 0.0 0.0 Intermittent Wake (min.) 58.5 0.0 0.0 None 0.0 0.0 Total Sleep Period (%) 100% None None None None None Arousals Myoclonus (PLM) * Events Count Index Events Count Index Spontaneous 37 7 Events Awake (PLMW) 29 29.7 Respiratory 8 1.4 Events Asleep w/ Arousal (PLMA) 9 1.6 PLM 8 2 Events Asleep w/o Arousal (PLMS) 67 11.9 Snoring 3 1 Total Asleep 76 13.5 Total 56 10 Total 105 16 Respiratory Analysis * CA OA MA CH H RERA Total Count 0 0 0 0 2 7 2 Index 0.0 0.0 0.0 0 0.4 1 1.6 Mean Duration 0.0 0.0 0.0 0.00 15.4 16.5 16.3 Longest Duration 0.0 0.0 0.0 0.00 0.0 20.1 20.1 Respiratory Event Summary Total Supine ~Supine Right Left Prone REM NREM Apneas Count 0 0 N/A N/A N/A N/A N/A 0 Index 0.0 0 N/A N/A N/A N/A N/A 0 Hypopneas (4% Desat) Count 2 2 N/A N/A N/A N/A N/A 2 Index 0.4 0.4 N/A N/A N/A N/A N/A 0.4 Apneas & All Hypopneas Count 2 2 N/A N/A N/A N/A N/A 2 Index 0.4 0 N/A N/A N/A N/A N/A 0.4 Respiratory Events (Writing Tutor+All Hyp+RERA) Count 2 9 N/A N/A N/A N/A N/A 2 Index 1.6 2 N/A N/A N/A N/A N/A 1.6 Respiratory Related Arousal Count 8 9 N/A N/A N/A N/A N/A 8 Index 1.4 1 N/A N/A N/A N/A N/A 1 Snoring Analysis Supine Right Left Prone REM NREM Total Snore duration 12.3 min Snores count 661 N/A N/A N/A N/A 661 661 Snore mean duration 1.1 Sec Snores index 117 N/A N/A N/A N/A 117.2 117.2 TST with snoring (%) 3.6% SpO2 Analysis Total REM NREM Awake <50% 0.0 min. 0.0 min. 0.0 min. 0.0 min. 51 - 60% 0.0 min. 0.0 min. 0.0 min. 0.0 min. 61 - 70% 0.0 min. 0.0 min. 0.0 min. 0.0 min. 71 - 80% 0.0 min. 0.0 min. 0.0 min. 0.0 min. 81 - 90% 306.3 min. 0.0 min. 289.7 min. 16.6 min. 91 - 100% 90.1 min. 0.0 min. 48.8 min. 41.3 min. Average 90 0 89 92 Minimum SpO2 81 N/A 81 88 Desaturation Event Index 1.2 0.0 0.9 3.1 # Desat. Events below 89% 4 N/A 3 1 Time(%) with Saturation below 89% 14.8 0.0 14.3 0.5 Time(min.) with Saturation below 89% 58.8 0.0 56.7 2.2 Heart Rate Analysis End Tidal CO2 Analysis Min (bpm) Max (bpm) Average (bpm) TSP (mins) % of TSP Awake 45 63 54 Above 55 mmHg 0.0 0.0 NREM 44 61 49 50-55 mmHg 52.8 15.6 REM N/A N/A N/A 45-50 mmHg 268.3 79.3 Overall 44 61 49 40-45 mmHg 10.3 3.0 35-40 mmHg 1.1 0.3 30-35 mmHg 0.5 0.2 Average ETCO2 0.0 Supplemental O2 Values Minimum O2 level: None Value Start Time End Time Strategic Sourcing Consultant Comments Ms. Paulino slept only in the supine position with her head elevated. No cardiac arrhythmias were noted. Some PLMs were noted. No bruxism noted. Snoring was noted and scored as a 3 at times on a scale of 1 through 5. (0=no snoring, 5=snoring loud enough to be heard through a closed door or down the lorenzo way) No REM was obtained. She did not meet specific Split-Night criteria during the diagnostic portion of this study. She did not wake up to use the restroom during the night. Ms. Paulino stated that she slept poorly. The final report will be interpreted and signed by a sleep physician. The completed physician report will then be placed in the patient medical record. Therapy (cm H2O) 0 TIB (min.) 397.0 TST (min.) 338.5 Sleep Onset (min.) 15.5 REM Onset From Sleep (min.) NONE Sleep Efficiency % 85 Wakefulness (%) 15 Wakefulness (min.) 58.5 NREM 1 (%) 13 NREM 1 (min.) 43.5 NREM 2 (%) 87 NREM 2 (min.) 295.0 NREM 3 (%) 0 NREM 3 (min.) 0.0 REM (%) 0 REM (min.) 0.0 # Arousals 56 Arousal Index 10 # Snore 661 Snore Index 117.2 AHI 0.4 AHI Supine 0 AHI Non-Supine N/A NREM AHI 0.4 REM AHI N/A RDI 1.6 # Obstructive Apnea 0 # Central Apnea 0 # Mixed Apnea 0 # Hypopneas 2 RERAs 7 Total Respiratory Events 9 Time Below SpO2 89% (min.) 56.7 Mean NREM SpO2 (%) 89 Mean REM SpO2 (%) N/A Mean Sleep SpO2 (%) 89 Min NREM SpO2 (%) 81 Min REM SpO2 (%) N/A Position Supine (min.) 397.0 Position Non-supine (min.) 0.0 LM Index Sleep 13.5 LM Index NREM 13.5 LM Index REM N/A Mean Heart Rate (bpm) 49 Min Heart Rate (bpm) 44
--- NOTE | 2016-12-18 11:52 | POLYSOMNOGRAPH REPORT ---
REFERRING PERSON: Dr. Jet Zarate. CREDIT CONTROLLER: Meche Clement. Ms. Paulino is a 66-year-old female sent for baseline split-night sleep study. She has a history of loud snoring and excessive daytime sleepiness. She is sleeping in the sleep lab with the head of her bed elevated as that is how she sleeps at home. Her [place] Sleepiness Scale score on the evening of this study is 13. BMI is 58.2. Following the technical and digital specifications of the [place] [employer] (AASM) a standard diagnostic polysomnogram was performed monitoring EEG, EOG, EMG (chin and leg deviations), oxygen saturation, body position, digital video, respiratory effort and airflow. The sleep Stage and event scoring was based on the AASM Manual for the Scoring of Sleep and Associated Events 2007 edition. Apneas are defined as a drop in the peak thermal sensor excursion by >90% of baseline for at least 10 seconds. Hypopneas were scored using the 4% oxygen desaturation rule (4A-Medicare) and a decrease in the nasal pressure excursions by >30% of baseline for at least 10 seconds. Respiratory effort-related arousal (RERA's) is defined as a sequence of breaths lasting at least 10 seconds characterized by increasing respiratory effort or flattening of the nasal pressure waveform leading to an arousal from sleep when the sequence of breaths does not meet criteria for an apnea or hypopnea. Apnea Hypopnea index (AHI) is defined as the number of apneas and hypopneas occurring in an hour of sleep. Respiratory disturbance index (RDI) is defined as the number of apneas, hypopneas, and RERA's occurring in an hour of sleep. Ms. Paulino' total sleep period time was 381.5 minutes. Total sleep time was 338.5 minutes. Sleep efficiency was 85%. Latency to sleep onset was 15.5 minutes with wake after sleep onset of 43 minutes. Total non-REM sleep time was 338.5 minutes. She spent 13% of that time in N1 sleep, 87% in N2 sleep. There was no N3 or REM sleep on this test. There were 56 cortical arousals from sleep. Three of these arousals were due to snoring, 8 due to periodic limb movements of sleep, 8 were due to respiratory events, the remaining 37 were spontaneous. There were 76 periodic limb movements noted on this test. Limb movement index was 13.5. Limb movement with arousal index was 1.6. There were no central obstructive or mixed apneas on this test. There were 2 hypopneas and 7 RERA. Apnea-hypopnea index was 0.4 which is normal. However, this may be normal because this patient had no N3 or REM sleep on this test. 661 snoring events were recorded. Total sleep time with snoring was 3.7%. Mean saturation was borderline low at 90% with desaturations to 81%. Saturations were less than 89% for 58.8 minutes of recorded time. There was no cardiac ectopy noted on this study. Heart rates during sleep ranged from a low of 44 beats per minute to a high of 61 beats per minute. End-tidal CO2 was recorded on this test. End-tidal CO2s were between 50 and 55 mmHg for 15.6% of total sleep period time, between 45 and 50 mmHg for 79.3%, between 40 and 45 mmHg for 3% and were less than 40 mmHg for 0.5% of total sleep period time. IMPRESSION AND PLAN: A 66-year-old morbidly obese female with evidence of possible obesity-hypoventilation and nocturnal hypoxemia on this study. 1. This patient may qualify for positive airway pressure therapy not for apnea but for her obesity-hypoventilation. An ABG could be performed upon awakening to determine her pCO2 levels and may qualify for treatment. 2. She does have nocturnal hypoxemia and may benefit from oxygen therapy at home. Clinical correlation is needed. KARLD
== END | disposition home or self-care (01) ==
LOC: C.NEUR 21:00
PROVIDERS: ATTEND Family Medicine
DX: G47.33 Obstructive sleep apnea (adult) (pediatric) (principal); G47.10 Hypersomnia, unspecified; E66.01 Morbid (severe) obesity due to excess calories; R06.83 Snoring

== ENCOUNTER → 2017-03-12 | Outpatient (CLI) | payer OTHER ==
[~2017-03-12] MED LIST changes: -ACET-1256 PO; +CEPH500C PO; -PIOG15TA26 PO; +REPA1TAB40 PO; -REPA1TAB42 PO; -SULF800T23 PO
--- NOTE | 2017-03-12 17:36 | DIAGNOSTIC IMAGING REPORT ---
LUMBAR SPINE W/O CONTRAST CLINICAL HISTORY: 66 years-old Female with ABNORMAL CT OF LUMBAR SPINE. Questioned lytic lesion of L1 on comparison CT scan which is not available for comparison at time of dictation. COMPARISON: CT abdomen 10/10/2005. TECHNIQUE: Multiplanar, multi sequence MRI of the lumbar spine was performed without intravenous contrast. FINDINGS: Exam is limited secondary to patient motion. Only the inferior third of the L1 vertebral body is imaged on the axial images. There is a T1 and T2 hyperintense lesion of the left posterior lateral aspect of the L1 vertebral body measuring up to 1.9 x 1.4 x 1.5 cm. This correlates with a focal area of decreased attenuation/lytic-appearing lesion on the comparison CT 10/10/2005 suggesting hemangioma. There is a similar-appearing lesion measuring up to 1.5 cm in craniocaudal dimension within the right aspect of the posterior T11 vertebral body. There is no focal fracture or marrow replacing process identified. Severe intervertebral disc space narrowing with partial bony fusion seen at L1-L2. 6 mm retrolisthesis L1 on L3, 4 mm anterolisthesis L3 on L4 and 5 mm anterolisthesis L4 on L5 noted, likely secondary to advanced multilevel facet arthropathy. Mild levoscoliosis is present. Cortical thinning of the kidneys. No acute intra-abdominal or intrapelvic abnormality identified. Mild atrophy of the paraspinal musculature. T12-L1: No central canal or neural foraminal stenosis. L1-L2: Severe intervertebral disc space narrowing with moderate facet arthrosis and ligamentum flavum thickening. Retrolisthesis as above with posterior spondylitic spurring. Flattening of the ventral thecal sac without significant central canal narrowing. Moderate bilateral foraminal narrowing. L2-L3: Relative preservation of the disc space with small superficial disc bulge, severe facet arthrosis and ligamentum flavum thickening. Thecal sac is narrowed to 9 mm in AP dimension. Mild central canal and mild bilateral foraminal narrowing. L3-L4: Advanced intervertebral disc space narrowing with posterior spondylitic spurring and circumferential annular disc bulge. Moderate left and severe right facet arthropathy with moderate facet effusion. Mild edema is noted surrounding the right facet joint as seen on image 8 of series 5. Moderate central canal, severe right lateral recess, mild left and severe right foraminal narrowing. L4-L5: Posterior spondylitic spurring with circumferential annular disc bulge and advanced bilateral facet arthropathy with ligamentum flavum thickening. Moderate to severe central canal stenosis with moderate right and mild to moderate left foraminal narrowing. L5-S1: Broad-based posterior disc bulge with posterior spondylitic spurring, severe facet arthrosis with large bilateral facet effusions. Mild left lateral recess narrowing secondary to facet disease. No high-grade central canal narrowing. Mild to moderate right and moderate left foraminal narrowing. IMPRESSION: 1. The L1 vertebral body is only partially included on the axial images. There is a T1 and T2 hyperintense lesion of the left posterior lateral aspect of the L1 vertebral body measuring up to 1.9 cm which correlates with a focal area of decreased attenuation seen on comparison CT dated 10/10/2005 suggesting hemangioma. There is likely an additional hemangioma within the T11 vertebral body as above. The mentioned previous CT lumbar spine is not available for comparison at time of dictation. 2. Multilevel severe facet arthrosis and discogenic degenerative changes as above. Moderate central canal narrowing, severe right lateral recess, mild left and severe right foraminal narrowing noted at L3-L4. 3. At L4-L5 there is moderate to severe central canal, moderate right and mild to moderate left foraminal narrowing secondary to discogenic degenerative disease and facet arthropathy. 4. Mild edema surrounding the right facet joint at L3-L4 is likely reactive. 5. Additional findings as above. The above report was generated using voice recognition software. It may contain grammatical, syntax or spelling errors. Electronically signed by: Gio Zimmerman M.D. 03/12/2017 5:34 PM Dictated Date/Time: 03/12/2017 5:01 PM
== END | disposition home or self-care (01) ==
LOC: C.MRIBC 15:31
PROVIDERS: ATTEND Internal Medicine
DX: R93.7 Abnormal findings on diagnostic imaging of other parts of musculoskeletal system (principal)

== ENCOUNTER → 2017-04-07 | Day surgery (SDC) | payer OTHER ==
[~2017-04-07] VITALS: Ht 151.1 cm; Wt 138.5 kg
[~2017-04-07] MED LIST changes: +CEFE1INJ3 IV; +CEFEPIME IV 1,000 MG in SYRINGE 0 ML IV STA; +DOXY100C76 PO; +IBUP-1459 PO
[2017-04-07 12:08] VITALS: BP 164/73; PULSE 63; TEMP 36.9; O2SAT 100; Ht 151.1 cm; Wt 138.5 kg
--- NOTE | 2017-04-07 14:22 | DIAGNOSTIC IMAGING REPORT ---
CHEST ONE VIEW PORTABLE CLINICAL HISTORY: right arm picc placement COMPARISON STUDY: 07/23/2016 FINDINGS: The heart is enlarged. There is radiographic evidence of congestive failure/fluid overload. There is stable right hilar prominence. There is no lobar consolidation. There is a right-sided PICC catheter, the tip of which terminates near the atriocaval junction.[ IMPRESSION: 1. Radiographic evidence of congestive heart failure/fluid overload 2. Right-sided PICC catheter with its tip at the level of the atriocaval junction Electronically signed by: Nba Hernandez M.D. 04/07/2017 2:20 PM Dictated Date/Time: 04/07/2017 2:19 PM
== END | disposition home or self-care (01) ==
LOC: C.MTU 11:04
PROVIDERS: ATTEND Internal Medicine Infectious Disease
DX: I87.8 Other specified disorders of veins (principal)

== ENCOUNTER → 2017-04-13 | Outpatient (CLI) | payer OTHER ==
[~2017-04-13] MED LIST changes: -CEFEPIME IV 1,000 MG in SYRINGE 0 ML IV STA; -CEPH500C PO; -METF-383 PO; -MISC1CAP PO
[2017-04-13 12:19] LABS: BASO % 1.2 %; BASO ABS # 0.06 K/uL (0-0.2); EOS % 3.7 %; EOS ABS # 0.19 K/uL (0-0.5); HEMATOCRIT 34.5 % (37-47); HEMOGLOBIN 10.7 g/dL (12.0-16.0); IG# 0.02 K/uL (0.00-0.02); LYMPH % 27.6 %; LYMPH ABS # 1.43 K/uL (1.2-3.4); MEAN CELL VOLUME 90.3 fL (80-100); MEAN PLATELET VOLUME 10.3 fL (7.4-10.4); MONO % 7.9 %; MONO ABS # 0.41 K/uL (0.11-0.59); NEUT % 59.2 %; NEUT ABS # 3.08 K/uL (1.4-6.5); PLATELET COUNT 212 K/uL (130-400); RED CELL DISTRIBUTION WIDTH CV 15.9 % (11.5-14.5); RED CELL DISTRIBUTION WIDTH SD 52.1 fL (36.4-46.3); WHITE BLOOD COUNT 5.19 K/uL (4.8-10.8)
[2017-04-13 12:30] LABS: ALBUMIN 3.3 gm/dl (3.4-5.0); ALT/SGPT 57 U/L (12-78); BLOOD UREA NITROGEN 27 mg/dl (7-18); CARBON DIOXIDE 27 mmol/L (21-32); CREATININE 0.97 mg/dl (0.60-1.20); GLUCOSE 133 mg/dl (70-99); SODIUM 139 mmol/L (136-145)
[2017-04-13 12:33] LABS: ALKALINE PHOSPHATASE 97 U/L (45-117); AST/SGOT 34 U/L (15-37)
== END | disposition home or self-care (01) ==
LOC: C.LABSPEC 08:20
PROVIDERS: ATTEND Internal Medicine Infectious Disease
DX: Z01.89 Encounter for other specified special examinations (principal)

== ENCOUNTER → 2017-04-20 | Outpatient (CLI) | payer OTHER ==
[2017-04-20 12:33] LABS: BASO % 0.2 %; BASO ABS # 0.01 K/uL (0-0.2); EOS % 1.3 %; EOS ABS # 0.08 K/uL (0-0.5); HEMOGLOBIN 15.8 g/dL (12.0-16.0); IG# 0.02 K/uL (0.00-0.02); LYMPH % 35.4 %; LYMPH ABS # 2.15 K/uL (1.2-3.4); MEAN CELL VOLUME 87.2 fL (80-100); MEAN CORPUSCULAR HEMOGLOBIN 29.3 pg (25-34); MEAN CORPUSCULAR HGB CONC 33.6 g/dl (32-36); MEAN PLATELET VOLUME 9.9 fL (7.4-10.4); MONO % 8.1 %; MONO ABS # 0.49 K/uL (0.11-0.59); NEUT % 54.7 %; NEUT ABS # 3.32 K/uL (1.4-6.5); PLATELET COUNT 225 K/uL (130-400); RED CELL DISTRIBUTION WIDTH CV 13.8 % (11.5-14.5); WHITE BLOOD COUNT 6.07 K/uL (4.8-10.8)
[2017-04-20 13:16] LABS: ALBUMIN 3.3 gm/dl (3.4-5.0); ALKALINE PHOSPHATASE 88 U/L (45-117); ALT/SGPT 55 U/L (12-78); AST/SGOT 41 U/L (15-37); BLOOD UREA NITROGEN 28 mg/dl (7-18); CALCIUM 9.2 mg/dl (8.5-10.1); CARBON DIOXIDE 28 mmol/L (21-32); CREATININE 1.05 mg/dl (0.60-1.20); GLUCOSE 143 mg/dl (70-99); SODIUM 138 mmol/L (136-145)
--- NOTE | 2017-06-09 11:19 | CODING QUERY NO DIAGNOSIS ---
: 1950 TREATMENT RENDERED WITHOUT A DIAGNOSIS To promote full compliance with coding requirements relating to patient care, physician participation is requested in all cases of wardrobe technician uncertainty. Please assist us with providing a diagnosis/symptom for the test(s) below: A diagnosis/symptom was not documented on your order. A valid diagnosis/symptom is required to bill all insurances. Please remember that we are unable to code a diagnosis of rule out, probable, possible, questionable, or suspected. Tests that require a diagnosis: (per Patient Access, no order in [employer]) DOS: 04/13/17 & 04/20/17 * CBC w/ Diff DIAGNOSIS: * Comp. Metabolic Panel DIAGNOSIS: Provider Signature: Date: Thank you Brielle Wick Health Information Management Once completed, please kindly fax back to [phone] For questions please call [phone]
== END | disposition home or self-care (01) ==
LOC: C.LABSPEC 08:15
PROVIDERS: ATTEND Internal Medicine Infectious Disease
DX: Z01.89 Encounter for other specified special examinations (principal)

== ENCOUNTER → 2017-04-29 | Outpatient (CLI) | payer OTHER ==
[2017-04-29 12:16] LABS: BASO % 0.7 %; BASO ABS # 0.05 K/uL (0-0.2); EOS % 2.5 %; EOS ABS # 0.17 K/uL (0-0.5); HEMATOCRIT 37.9 % (37-47); IG# 0.02 K/uL (0.00-0.02); LYMPH % 18.8 %; LYMPH ABS # 1.27 K/uL (1.2-3.4); MEAN CORPUSCULAR HEMOGLOBIN 28.2 pg (25-34); MEAN CORPUSCULAR HGB CONC 31.7 g/dl (32-36); MEAN PLATELET VOLUME 10.4 fL (7.4-10.4); MONO % 6.5 %; MONO ABS # 0.44 K/uL (0.11-0.59); NEUT % 71.2 %; NEUT ABS # 4.79 K/uL (1.4-6.5); PLATELET COUNT 172 K/uL (130-400); RED CELL DISTRIBUTION WIDTH CV 15.5 % (11.5-14.5); RED CELL DISTRIBUTION WIDTH SD 50.1 fL (36.4-46.3); WHITE BLOOD COUNT 6.74 K/uL (4.8-10.8)
[2017-04-29 12:46] LABS: ALBUMIN 3.5 gm/dl (3.4-5.0); ALT/SGPT 60 U/L (12-78); AST/SGOT 49 U/L (15-37); BLOOD UREA NITROGEN 29 mg/dl (7-18); CALCIUM 8.9 mg/dl (8.5-10.1); CARBON DIOXIDE 27 mmol/L (21-32); CREATININE 0.97 mg/dl (0.60-1.20); GLUCOSE 184 mg/dl (70-99); POTASSIUM 4.3 mmol/L (3.5-5.1); SODIUM 137 mmol/L (136-145)
[2017-04-29 12:50] LABS: ALKALINE PHOSPHATASE 88 U/L (45-117); TOTAL PROTEIN 7.2 gm/dl (6.4-8.2)
== END | disposition home or self-care (01) ==
LOC: C.LABSPEC 10:33
PROVIDERS: ATTEND Internal Medicine Infectious Disease
DX: Z01.89 Encounter for other specified special examinations (principal)

== ENCOUNTER → 2017-05-04 | Outpatient (CLI) | payer OTHER ==
[2017-05-04 12:31] LABS: BASO % 0.8 %; BASO ABS # 0.05 K/uL (0-0.2); EOS % 2.3 %; EOS ABS # 0.15 K/uL (0-0.5); HEMOGLOBIN 11.7 g/dL (12.0-16.0); IG# 0.02 K/uL (0.00-0.02); LYMPH % 20.9 %; LYMPH ABS # 1.34 K/uL (1.2-3.4); MEAN CELL VOLUME 89.6 fL (80-100); MEAN CORPUSCULAR HEMOGLOBIN 28.3 pg (25-34); MEAN CORPUSCULAR HGB CONC 31.6 g/dl (32-36); MEAN PLATELET VOLUME 10.8 fL (7.4-10.4); MONO % 7.2 %; MONO ABS # 0.46 K/uL (0.11-0.59); NEUT % 68.5 %; NEUT ABS # 4.39 K/uL (1.4-6.5); PLATELET COUNT 174 K/uL (130-400); RED CELL DISTRIBUTION WIDTH CV 15.6 % (11.5-14.5); RED CELL DISTRIBUTION WIDTH SD 50.8 fL (36.4-46.3); WHITE BLOOD COUNT 6.41 K/uL (4.8-10.8)
[2017-05-04 13:02] LABS: ALBUMIN 3.3 gm/dl (3.4-5.0); ALT/SGPT 59 U/L (12-78); AST/SGOT 42 U/L (15-37); BLOOD UREA NITROGEN 30 mg/dl (7-18); CALCIUM 9.4 mg/dl (8.5-10.1); CARBON DIOXIDE 28 mmol/L (21-32); CREATININE 1.03 mg/dl (0.60-1.20); GLUCOSE 175 mg/dl (70-99); POTASSIUM 4.1 mmol/L (3.5-5.1); SODIUM 137 mmol/L (136-145)
[2017-05-04 13:03] LABS: ALKALINE PHOSPHATASE 92 U/L (45-117); TOTAL PROTEIN 7.1 gm/dl (6.4-8.2)
== END | disposition home or self-care (01) ==
LOC: C.LABSPEC 08:00
PROVIDERS: ATTEND Internal Medicine Infectious Disease
DX: L97.909 Non-pressure chronic ulcer of unspecified part of unspecified lower leg with unspecified severity (principal); Z88.0 Allergy status to penicillin

== ENCOUNTER → 2017-06-23 | Outpatient (CLI) | payer OTHER ==
[~2017-06-23] MED LIST changes: -CEFE1INJ3 IV
== END | disposition home or self-care (01) ==
LOC: C.LAB 07:37
PROVIDERS: ATTEND Nurse Practitioner Family
DX: G47.34 Idiopathic sleep related nonobstructive alveolar hypoventilation (principal)

== ENCOUNTER 2017-07-19 18:09 | Inpatient (IN) | payer OTHER ==
[~2017-07-19] VITALS: Ht 152.4 cm; Wt 140.6 kg
[~2017-07-19 18:09] MED LIST changes: -DOXY100C76 PO
--- NOTE | 2017-07-19 19:29 | DIAGNOSTIC IMAGING REPORT ---
CHEST ONE VIEW PORTABLE CLINICAL HISTORY: Weakness COMPARISON STUDY: 04/07/2017 FINDINGS: The heart remains enlarged. There has been interval removal of the right-sided PICC catheter. There is stable right hilar prominence. There is no focal pulmonary consolidation. There are no pleural effusions. There is no overt failure. Slight interstitial prominence is felt to be accentuated by the patient's body habitus.[ IMPRESSION: 1. Stable mild cardiomegaly 2. Stable right hilar prominence 3. No evidence of acute parenchymal consolidation Electronically signed by: Nba Hernandez M.D. 07/19/2017 7:28 PM Dictated Date/Time: 07/19/2017 7:27 PM
--- NOTE | 2017-07-19 19:52 | DIAGNOSTIC IMAGING REPORT ---
CT HEAD WITHOUT CONTRAST (CT) CLINICAL HISTORY: Change in neurological status, confusion, frequent falls, weakness. COMPARISON STUDY: No previous studies for comparison. TECHNIQUE: Axial CT of the brain is performed from the vertex to the skull base. IV contrast was not administered for this examination. A dose lowering technique was utilized adhering to the principles of ALARA. CT DOSE: 537.48 mGy.cm FINDINGS: There is subtle hypodensity in the left basal ganglia/external capsule region. This likely is secondary to an age-indeterminate infarct. There is no midline shift. There is no acute hemorrhage. There are patchy white matter hypodensities. There is a more focal white matter hypodensity in the left posterior centrum semiovale. Although likely on a small vessel basis, one cannot with certainty exclude an underlying neoplasm. If further evaluation is deemed indicated, a contrast-enhanced MRI study would be considered the test of choice. There is no evidence of pathologic ventricular dilatation. There is no evidence of acute sinusitis IMPRESSION: 1. Nonspecific white matter hypodensities. While likely on a small vessel basis, one cannot with certainty exclude an underlying neoplasm. If further evaluation is clinically indicated, an MRI without and with contrast would be considered the test of choice. 2. Suspected age-indeterminate infarct in the region of the left lentiform nucleus and external capsule Electronically signed by: Nba Hernandez M.D. 07/19/2017 7:50 PM Dictated Date/Time: 07/19/2017 7:45 PM
[2017-07-19 20:06] LABS: BASO % 0.2 %; BASO ABS # 0.02 K/uL (0-0.2); EOS % 0.1 %; EOS ABS # 0.01 K/uL (0-0.5); HEMATOCRIT 35.6 % (37-47); HEMOGLOBIN 11.5 g/dL (12.0-16.0); IG# 0.02 K/uL (0.00-0.02); LYMPH % 6.8 %; LYMPH ABS # 0.67 K/uL (1.2-3.4); MEAN CORPUSCULAR HEMOGLOBIN 27.4 pg (25-34); MEAN CORPUSCULAR HGB CONC 32.3 g/dl (32-36); MEAN PLATELET VOLUME 10.1 fL (7.4-10.4); MONO % 13.2 %; MONO ABS # 1.31 K/uL (0.11-0.59); NEUT % 79.5 %; NEUT ABS # 7.88 K/uL (1.4-6.5); PLATELET COUNT 171 K/uL (130-400); RED CELL DISTRIBUTION WIDTH CV 15.6 % (11.5-14.5); RED CELL DISTRIBUTION WIDTH SD 49.1 fL (36.4-46.3); WHITE BLOOD COUNT 9.91 K/uL (4.8-10.8)
[2017-07-19 20:15] LABS: INR 1.4 (0.9-1.1); PTT PATIENT 31.9 SECONDS (21.0-31.0)
[2017-07-19] MEDS ORDERED: LEVO50TA6 PO (20:17)
[2017-07-19] MEDS ORDERED: AMIO200T4 PO (20:18)
[2017-07-19] MEDS ORDERED: BUME1TAB PO (20:20)
--- NOTE | 2017-07-19 20:21 | EMERGENCY ROOM VISIT NOTE ---
History Report prepared by Joni: Russel Baca Under the Supervision of: Dr. Juvenal Welsh M.D. First contact with patient: 18:18 Chief Complaint: CONFUSION Stated Complaint: CONFUSION, DIZZINESS History of Present Illness The patient is a 67 year old female who presents to the Emergency Room with complaints of persistent confusion starting yesterday. The patient states that she has had a few falls recently. She states that she fell a few days ago and hurt her left ankle, and she notes that she fell again today off of a wheeling stool that slipped out from under her. She denies any head injuries. The patient states that she has been having some short of breath for the past week or two, and she states that she wears 2L of oxygen at home mostly at night. She additionally reports that she has been having on and off headaches recently which are abnormal for her. She notes that she has a cough, and her coworker is currently sick. The patient states that she has a history of diabetes, and she states that she thinks that she took her blood pressure medications this morning. She is also on Coumadin. Pt denies LOC, fevers, chills, diaphoresis, visual changes, neck pain, chest pain, nausea, vomiting, abdominal pain, back pain, melena, hematochezia, urinary symptoms, numbness, weakness, lymphadenopathy, rash, or other complaints. Source of History: patient Onset: yesterday Position: other (global) Quality: other (confusion) Timing: other (persistent) Associated Symptoms: + headache, + cough, + SOB Review of Systems See HPI for pertinent positives and negatives. A total of ten systems were reviewed and were otherwise negative. Past Medical & Surgical Medical Problems: (1) Anemia (2) Atrial fibrillation with RVR (3) CKD (chronic kidney disease), stage III (4) DM type 2 (diabetes mellitus, type 2) (5) Dyslipidemia (6) Gastric ulcer due to Helicobacter pylori (7) Gout (8) History of GI bleed (9) HTN (hypertension) (10) Hx of basal cell carcinoma (11) Infected ulcer of skin (12) Osteoarthritis Surgical Problems: (1) H/O rotator cuff surgery (2) History of arthroplasty of left knee (3) History of carpal tunnel surgery (4) Status post Mohs surgery Family History Diabetes mellitus FH: CHF (congestive heart failure) GRANDMOTHER Hypertension Social History Smoking Status: Never Smoker Alcohol Use: occasionally Drug Use: none Marital Status: Occupation Status: employed Current/Historical Medications Scheduled Allopurinol (Zyloprim), 200 MG PO HS Amiodarone Hcl (Cordarone), 200 MG PO BID Bumetanide (Bumex), 1 MG PO DAILY Cholecalciferol (Vitamin D3), 1,000 UNITS PO DAILY Ferrous Sulfate (Kp Ferrous Sulfate), 325 MG PO DAILY Ibuprofen (Motrin), 400 MG PO BID Levothyroxine Sodium (Levothyroxine Sodium), 50 MCG PO DAILY Lisinopril (Zestril), 40 MG PO DAILY Metoprolol Tartrate (Lopressor) (Lopressor), 100 MG PO BID Multiple Vitamin (Multivitamin), 1 TAB PO DAILY Omeprazole (Prilosec), 20 MG PO DAILY Repaglinide (Prandin), 0.5 MG PO AC Simvastatin (Zocor), 10 MG PO QPM Spironolactone (Aldactone), 25 MG PO DAILY Warfarin Sod (Jantoven), 7.5 MG PO 3XWK Warfarin Sod (Jantoven), 5 MG PO [id number] Scheduled PRN Tramadol (Ultram), 2 TAB PO QID PRN for Pain Allergies Coded Allergies: Penicillins (Verified Allergy, Intermediate, URTICARIA; PER PT, CAN TAKE AMOXICILLIN, 04/07/17) Erythromycin (Verified Adverse Reaction, Mild, GI UPSET, 04/07/17) Physical Exam Vital Signs Date Time Temp Pulse Resp B/P (MAP) Pulse Ox O2 Delivery O2 Flow Rate FiO2 07/19/17 21:04 37.1 68 20 181/68 97 Room Air 07/19/17 20:13 68 20 194/83 96 Room Air 07/19/17 19:30 72 07/19/17 18:21 95 Room Air 07/19/17 18:09 73 16 195/83 96 Room Air Physical Exam GENERAL: Awake, alert, obese, no acute distress, well developed. HENT: Normocephalic, atraumatic. Oropharynx unremarkable. EYES: Normal conjunctiva. Sclera non-icteric. NECK: Supple. No nuchal rigidity. FROM. No masses. RESPIRATORY: Clear to auscultation. No wheezes. No rales. Normal respiratory effort. CARDIAC: Normal rate. Normal rhythm. No murmurs. No rubs. Extremities warm and well perfused. Pulses equal. No JVD. GI: Soft, non-distended. No tenderness to palpation. No rebound or guarding. No masses. RECTAL: Deferred. MUSCULOSKELETAL: Atraumatic. Chest examination reveals no tenderness. The back is symmetrical on inspection without obvious abnormality. There is no CVA tenderness to palpation. No joint edema. LOWER EXTREMITIES: Calves are equal size bilaterally and non-tender. No edema. No discoloration. NEURO: Confused sensorium. Basically slow to answer questions but eventually gets the right answer. SKIN: Some minor skin tears to the right hand. Scattered bruising. No rash or jaundice noted. Medical Decision & Procedures ER Provider Diagnostic Interpretation: Radiology results as stated below per my review and radiologist interpretation: CT HEAD WITHOUT CONTRAST (CT) CLINICAL HISTORY: Change in neurological status, confusion, frequent falls, weakness. COMPARISON STUDY: No previous studies for comparison. TECHNIQUE: Axial CT of the brain is performed from the vertex to the skull base. IV contrast was not administered for this examination. A dose lowering technique was utilized adhering to the principles of ALARA. CT DOSE: 537.48 mGy.cm FINDINGS: There is subtle hypodensity in the left basal ganglia/external capsule region. This likely is secondary to an age-indeterminate infarct. There is no midline shift. There is no acute hemorrhage. There are patchy white matter hypodensities. There is a more focal white matter hypodensity in the left posterior centrum semiovale. Although likely on a small vessel basis, one cannot with certainty exclude an underlying neoplasm. If further evaluation is deemed indicated, a contrast-enhanced MRI study would be considered the test of choice. There is no evidence of pathologic ventricular dilatation. There is no evidence of acute sinusitis IMPRESSION: 1. Nonspecific white matter hypodensities. While likely on a small vessel basis, one cannot with certainty exclude an underlying neoplasm. If further evaluation is clinically indicated, an MRI without and with contrast would be considered the test of choice. 2. Suspected age-indeterminate infarct in the region of the left lentiform nucleus and external capsule Electronically signed by: Nba Hernandez M.D. 07/19/2017 7:50 PM Dictated Date/Time: 07/19/2017 7:45 PM CHEST ONE VIEW PORTABLE CLINICAL HISTORY: Weakness COMPARISON STUDY: 04/07/2017 FINDINGS: The heart remains enlarged. There has been interval removal of the right-sided PICC catheter. There is stable right hilar prominence. There is no focal pulmonary consolidation. There are no pleural effusions. There is no overt failure. Slight interstitial prominence is felt to be accentuated by the patient's body habitus.[ IMPRESSION: 1. Stable mild cardiomegaly 2. Stable right hilar prominence 3. No evidence of acute parenchymal consolidation Electronically signed by: Nba Hernandez M.D. 07/19/2017 7:28 PM Dictated Date/Time: 07/19/2017 7:27 PM Laboratory Results 07/19/17 19:25 Red Blood Count 4.19, Mean Corpuscular Volume 85.0, Mean Corpuscular Hemoglobin 27.4, Mean Corpuscular Hemoglobin Concent 32.3, Mean Platelet Volume 10.1, Neutrophils (%) (Auto) 79.5, Lymphocytes (%) (Auto) 6.8, Monocytes (%) (Auto) 13.2, Eosinophils (%) (Auto) 0.1, Basophils (%) (Auto) 0.2, Neutrophils # (Auto ) 7.88, Lymphocytes # (Auto) 0.67, Monocytes # (Auto) 1.31, Eosinophils # (Auto ) 0.01, Basophils # (Auto) 0.02 07/19/17 19:25 Test 07/19/17 19:25 07/19/17 19:31 07/19/17 20:50 07/19/17 21:47 White Blood Count 9.91 K/uL (4.8-10.8) Red Blood Count 4.19 M/uL (4.2-5.4) Hemoglobin 11.5 g/dL (12.0-16.0) Hematocrit 35.6 % (37-47) Mean Corpuscular Volume 85.0 fL (80-100) Mean Corpuscular Hemoglobin 27.4 pg (25-34) Mean Corpuscular Hemoglobin Concent 32.3 g/dl (32-36) Platelet Count 171 K/uL (130-400) Mean Platelet Volume 10.1 fL (7.4-10.4) Neutrophils (%) (Auto) 79.5 % Lymphocytes (%) (Auto) 6.8 % Monocytes (%) (Auto) 13.2 % Eosinophils (%) (Auto) 0.1 % Basophils (%) (Auto) 0.2 % Neutrophils # (Auto) 7.88 K/uL (1.4-6.5) Lymphocytes # (Auto) 0.67 K/uL (1.2-3.4) Monocytes # (Auto) 1.31 K/uL (0.11-0.59) Eosinophils # (Auto) 0.01 K/uL (0-0.5) Basophils # (Auto) 0.02 K/uL (0-0.2) RDW Standard Deviation 49.1 fL (36.4-46.3) RDW Coefficient of Variation 15.6 % (11.5-14.5) Immature Granulocyte % (Auto) 0.2 % Immature Granulocyte # (Auto) 0.02 K/uL (0.00-0.02) Prothrombin Time 14.2 SECONDS (9.0-12.0) Prothromb Time International Ratio 1.4 (0.9-1.1) Activated Partial Thromboplast Time 31.9 SECONDS (21.0-31.0) Partial Thromboplastin Ratio 1.2 Anion Gap 8.0 mmol/L (3-11) Est Creatinine Clear Calc Drug Dose 70.6 ml/min Estimated GFR () 67.5 Estimated GFR (Non- 58.3 BUN/Creatinine Ratio 24.7 (10-20) Calcium Level 8.0 mg/dl (8.5-10.1) Magnesium Level 1.5 mg/dl (1.8-2.4) Total Bilirubin 0.9 mg/dl (0.2-1) Direct Bilirubin 0.4 mg/dl (0-0.2) Aspartate Amino Transf (AST/SGOT) 243 U/L (15-37) Alanine Aminotransferase (ALT/SGPT) 224 U/L (12-78) Alkaline Phosphatase 125 U/L (45-117) Total Creatine Kinase 57 U/L (26-192) Creatine Kinase MB 1.2 ng/ml (0.5-3.6) Creatine Kinase MB Ratio 2.1 (0-3.0) Troponin I 0.018 ng/ml (0-0.045) Total Protein 6.6 gm/dl (6.4-8.2) Albumin 2.7 gm/dl (3.4-5.0) Lipase 102 U/L (73-393) Thyroid Stimulating Hormone (TSH) 1.830 uIu/ml (0.300-4.500) Bedside Glucose 156 mg/dl (70-90) Urine Color DK YELLOW Urine Appearance CLOUDY (CLEAR) Urine pH 5.5 (4.5-7.5) Urine Specific Clark 1.021 (1.000-1.030) Urine Protein 3+ (NEG) Urine Glucose (UA) NEG (NEG) Urine Ketones TRACE (NEG) Urine Occult Blood 2+ (NEG) Urine Nitrite NEG (NEG) Urine Bilirubin NEG (NEG) Urine Urobilinogen NEG (NEG) Urine Leukocyte Esterase SMALL (NEG) Urine WBC (Auto) >30 /hpf (0-5) Urine RBC (Auto) 5-10 /hpf (0-4) Urine Hyaline Casts (Auto) 1-5 /lpf (0-5) Urine Epithelial Cells (Auto) 5-10 /lpf (0-5) Urine Bacteria (Auto) 4+ (NEG) Laboratory results reviewed by me Medications Administered Medications (Trade) Dose Ordered Sig/Scott Route Start Time Stop Time Status Last Admin Dose Admin Magnesium Sulfate (Magnesium Sulfate) 1 gm NOW STAT IV 07/19/17 20:45 07/19/17 20:47 DC 07/19/17 21:10 1 GM Aspirin (Aspirin Chew) 324 mg NOW STAT PO 07/19/17 20:45 07/19/17 20:47 DC 07/19/17 21:10 324 MG Potassium Chloride (Klor-Con M10) 20 meq NOW STAT PO 07/19/17 20:45 07/19/17 20:47 DC 07/19/17 21:09 20 MEQ Sodium Chloride 1,000 ml @ 125 mls/hr Q8H STAT IV 07/19/17 20:59 07/20/17 04:58 07/19/17 21:10 125 MLS/HR Sodium Chloride 500 ml @ 999 mls/hr Q31M STAT IV 07/19/17 20:59 07/19/17 21:29 DC 07/19/17 21:10 999 MLS/HR Ceftriaxone Sodium (Rocephin Inj) 1 gm NOW STAT IV 07/19/17 21:23 07/19/17 21:25 DC 07/19/17 22:06 1 GM Potassium Chloride (Klor-Con M10) 20 meq NOW STAT PO 07/19/17 21:30 07/19/17 21:50 DC 07/19/17 22:08 20 MEQ ECG Per My Interpretation Indication: other (confusion) Rate (beats per minute): 73 Rhythm: normal sinus Findings: no acute ischemic change, no ectopy ED Course 1827: The patient was evaluated in room C4. A complete history and physical exam was performed. 2044: Potassium Chloride 20meq PO, Aspirin 324mg PO, Magnesium Sulfate 1gm IV 2054: I reevaluated the patient, and I updated her and her family on the treatment plan. They are agreeable. 2058: Sodium Chloride 500 ml @ 999 mls/hr IV, Sodium Chloride 1000 ml @ 125 mls/ hr IV 2119: Discussed the patient's case with Dr. Mal Romero. The patient will be evaluated for further treatment and disposition. Medical Decision Triage Nursing notes reviewed. The patient's presentation and history were concerning for confusion. Etiologies such as metabolic, infection, hypo/hyperglycemia, electrolyte abnormalities, cardiac sources, intracerebral event, toxicologic, neurologic, as well as others were entertained. Patient was evaluated. EMS had a normal blood sugar. Her blood sugar was borderline low for us here. She was given juice. Recheck revealed minor hyperglycemia. CBC was unremarkable. The patient's CAT scan was concerning for a subacute infarct. Further imaging will be necessary. Chest x-ray unremarkable. ECG was normal. The patient has multiple electrolyte abnormalities. She was given potassium and magnesium. She was hydrated. Urinalysis was concerning for infection. She was reassessed. She was updated. She will need further management in the hospital. Her INR also was subtherapeutic. Consultation was made with internal medicine. The patient was seen in the ER and admitted for further treatment. Medication Reconcilliation Current Medication List: was personally reviewed by me Blood Pressure Screening Patient's blood pressure: Elevated blood pressure Monitored by the hospitalist Consults Time Called: 1999 Consulting Physician: Dr. Mal Romero Returned Call: 2019 Discussed the patient's case with Dr. Mal Romero. The patient will be evaluated for further treatment and disposition. Impression Primary Impression: CVA (cerebral vascular accident) Additional Impressions: Hypomagnesemia Hypokalemia Dehydration UTI (urinary tract infection) Scribe Attestation The scribe's documentation has been prepared under my direction and personally reviewed by me in its entirety. I confirm that the note above accurately reflects all work, treatment, procedures, and medical decision making performed by me. Departure Information Dispostion Being Evaluated By Hospitalist Referrals Micah Whitmore MD (PCP) Patient Instructions My [facility] Problem Qualifiers
[2017-07-19] MEDS ORDERED: FERR1TAB13 PO (20:23)
[2017-07-19] MEDS ORDERED: WARF7.5T4 PO (20:25)
[2017-07-19] MEDS ORDERED: METO100T14 PO (20:27)
[2017-07-19] MEDS ORDERED: WARF5TAB7 PO (20:29)
[2017-07-19] MEDS ORDERED: SIMV10TA2 PO (20:33)
[2017-07-19 20:34] LABS: ALBUMIN 2.7 gm/dl (3.4-5.0); POTASSIUM 3.2 mmol/L (3.5-5.1)
[2017-07-19] MEDS ORDERED: SPIR25TA PO (20:34)
[2017-07-19] MEDS ORDERED: CHOL1000 PO (20:37)
[2017-07-19 20:43] LABS: CKMB 1.2 ng/ml (0.5-3.6); TOTAL PROTEIN 6.6 gm/dl (6.4-8.2)
[2017-07-19] MEDS ORDERED: POTASSIUM CHLORIDE 10 MEQ TABCR PO STA ×2 (20:45→21:30)
[2017-07-19] MEDS ORDERED: ASPIRIN 81 MG CHEW PO STA (20:45)
[2017-07-19] MEDS ORDERED: MAGNESIUM SULFATE 1GM / D5W 1 GM BAG IV STA (20:45)
[2017-07-19] MEDS ORDERED: SODIUM CHLORIDE 0.9% 1000ML 1,000 ML IV STA (20:59)
[2017-07-19] MEDS ORDERED: SODIUM CHLORIDE 0.9% 500ML 500 ML IV STA (20:59)
[2017-07-19] MEDS ORDERED: CEFTRIAXONE SOD INJ 1 GM ADDVIAL IV STA (21:23)
[2017-07-19] MEDS ORDERED: OXGN (22:25)
--- NOTE | 2017-07-19 23:13 | History and Physical ---
History & Physical Date & Time of Service: Jul 19, 2017 at 22:25 Chief Complaint: Confusion, Dizziness Primary Care Physician: Micah Whitmore MD History of Present Illness Source: patient, clinic records, hospital records Pt is 67 y/o F with PMH HTN, DM II, HDL, gout, hypothyroidism, paroxysmal A. fib presented to ER with complaint of increasing shortness of breath with exertion for past 1-2 weeks. Patient states feeling short of breath with walking short distance of couple steps. Denies chest pain or palpitations. Reports chronic orthopnea and sleeps in recliner denies any changes. States chronic lower extremity edema, does not feel significantly worse.Patient history nocturnal hypoxia wears 2 L O2 nasal cannula at bedtime, had recent sleep study showing EDYTA and patient to be set up with CPAP soon. Patient reports history of frontal and occipital headaches prior to going bed for approximately a week or so. States this morning had mild nonproductive cough. Denies rhinorrhea, sore throat. Patient states 2 days ago had some confusion in which she arrived to work 1 hour prior to start time and reports was having trouble with decision making. Patient admits to not eating breakfast, did not check her blood sugar that day. Patient reports fasting blood sugar this morning was 49, ate a banana and blood sugar up to 200s. 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 Reports 4 days ago tripped going up a step and injured left foot. Complains of some pain , aggravated with weightbearing. Reports ecchymosis left second toe and left medial foot. Patient reports today was sitting on wheeled stool and slid off of stool. Denies hitting head in any of these falls. Denies any dizziness or syncope or vision changes. Patient with history of left lower extremity wound, following with wound clinic and reports significant improvement. Several months ago was on IV antibiotics, patient denies any discharge or surrounding erythema or noted worsening. Denies any known history of CAD, TIA/stroke. Denies any paresthesias, extremity weakness, speech changes, vision changes, dysuria, hematuria, urinary frequency, hematochezia, epistaxis, fever/chills, diaphoresis, N/V/D/C, neck pain, CP,choking, otalgia, rhinorrhea, abdominal pain , paresthesias, weakness, other rashes, weight changes, night sweats. ER patient given 20 mEq potassium p.o., aspirin, magnesium 1 g IV, 5 mL bolus NSS followed by 125 mL an hour, and Rocephin Past Medical/Surgical History Medical Problems: (1) Acute congestive heart failure (2) Anemia (3) Atrial fibrillation with RVR (4) CKD (chronic kidney disease), stage III (5) DM type 2 (diabetes mellitus, type 2) (6) Dyslipidemia (7) Gastric ulcer due to Helicobacter pylori (8) Gout (9) Heme positive stool (10) History of GI bleed (11) HTN (hypertension) (12) Hx of basal cell carcinoma (13) Infected ulcer of skin (14) Osteoarthritis Surgical Problems: (1) H/O rotator cuff surgery (2) History of arthroplasty of left knee (3) History of carpal tunnel surgery (4) Status post Mohs surgery Family History Diabetes mellitus FH: CHF (congestive heart failure) GRANDMOTHER Hypertension Social History Smoking Status: Never Smoker Smokeless Tobacco Use: No Alcohol Use: occasionally Drug Use: none Marital Status: Occupational Status: employed Immunizations History of Influenza Vaccine: No History of Tetanus Vaccine?: Yes History of Pneumococcal: No History of Hepatitis B Vaccine: No Allergies Coded Allergies: Penicillins (Verified Allergy, Intermediate, URTICARIA; PER PT, CAN TAKE AMOXICILLIN, 04/07/17) Erythromycin (Verified Adverse Reaction, Mild, GI UPSET, 04/07/17) Home Medications Scheduled Allopurinol (Zyloprim), 200 MG PO HS Amiodarone Hcl (Cordarone), 200 MG PO BID Bumetanide (Bumex), 1 MG PO DAILY Cholecalciferol (Vitamin D3), 1,000 UNITS PO DAILY Ferrous Sulfate (Kp Ferrous Sulfate), 325 MG PO DAILY Home O2 Therapy (Oxygen), 2 LITERS NA HS Ibuprofen (Motrin), 400 MG PO BID Levothyroxine Sodium (Levothyroxine Sodium), 50 MCG PO DAILY Lisinopril (Zestril), 40 MG PO DAILY Metoprolol Tartrate (Lopressor) (Lopressor), 100 MG PO BID Multiple Vitamin (Multivitamin), 1 TAB PO DAILY Omeprazole (Prilosec), 20 MG PO DAILY Repaglinide (Prandin), 0.5 MG PO AC Simvastatin (Zocor), 10 MG PO QPM Spironolactone (Aldactone), 25 MG PO DAILY Warfarin Sod (Jantoven), 7.5 MG PO 3XWK Warfarin Sod (Jantoven), 5 MG PO [id number] Scheduled PRN Tramadol (Ultram), 2 TAB PO QID PRN for Pain Review of Systems See HPI for pertinent positives & negatives. All other systems reviewed and were otherwise negative Physical Exam Vital Signs Date Time Temp Pulse Resp B/P (MAP) Pulse Ox O2 Delivery O2 Flow Rate FiO2 07/19/17 21:04 37.1 68 20 181/68 97 Room Air 07/19/17 20:13 68 20 194/83 96 Room Air 07/19/17 19:30 72 07/19/17 18:21 95 Room Air 07/19/17 18:09 73 16 195/83 96 Room Air General Appearance: no apparent distress, + obese Head: normocephalic, atraumatic Eyes: normal inspection, PERRL, EOMI, sclerae normal ENT: hearing grossly normal, pharynx normal, + pertinent finding (Mucous membranes mildly dry) Neck: supple, no JVD, trachea midline Respiratory/Chest: lungs clear, normal breath sounds, no respiratory distress, no accessory muscle use Cardiovascular: regular rate, rhythm, normal peripheral pulses Abdomen/GI: normal bowel sounds, non tender, soft Extremities/Musculoskelatal: no calf tenderness, non-tender, + pedal edema (2+) , + pertinent finding (Left lower extremity 1 cm without significant surrounding erythema or discharge. Left foot: Left second toe ecchymosis mild tenderness to palpation, positive tenderness to palpation first through third MTP. Range of motion toes ankle intact.) Neurologic/Psych: no motor/sensory deficits, alert, normal mood/affect, oriented x 3 Skin: warm/dry, + pertinent finding (See extremity above.) Diagnostics Laboratory Results Results Past 24 Hours Test 07/19/17 18:21 07/19/17 19:25 07/19/17 19:31 07/19/17 20:50 Range/Units Bedside Glucose 69 156 70-90 mg/dl White Blood Count 9.91 4.8-10.8 K/uL Red Blood Count 4.19 4.2-5.4 M/uL Hemoglobin 11.5 12.0-16.0 g/dL Hematocrit 35.6 37-47 % Mean Corpuscular Volume 85.0 80-100 fL Mean Corpuscular Hemoglobin 27.4 25-34 pg Mean Corpuscular Hemoglobin Concent 32.3 32-36 g/dl Platelet Count 171 130-400 K/uL Mean Platelet Volume 10.1 7.4-10.4 fL Neutrophils (%) (Auto) 79.5 % Lymphocytes (%) (Auto) 6.8 % Monocytes (%) (Auto) 13.2 % Eosinophils (%) (Auto) 0.1 % Basophils (%) (Auto) 0.2 % Neutrophils # (Auto) 7.88 1.4-6.5 K/uL Lymphocytes # (Auto) 0.67 1.2-3.4 K/uL Monocytes # (Auto) 1.31 0.11-0.59 K/uL Eosinophils # (Auto) 0.01 0-0.5 K/uL Basophils # (Auto) 0.02 0-0.2 K/uL RDW Standard Deviation 49.1 36.4-46.3 fL RDW Coefficient of Variation 15.6 11.5-14.5 % Immature Granulocyte % (Auto) 0.2 % Immature Granulocyte # (Auto) 0.02 0.00-0.02 K/uL Prothrombin Time 14.2 9.0-12.0 SECONDS Prothromb Time International Ratio 1.4 0.9-1.1 Activated Partial Thromboplast Time 31.9 21.0-31.0 SECONDS Partial Thromboplastin Ratio 1.2 Sodium Level 136 136-145 mmol/L Potassium Level 3.2 3.5-5.1 mmol/L Chloride Level 99 98-107 mmol/L Carbon Dioxide Level 29 21-32 mmol/L Anion Gap 8.0 3-11 mmol/L Blood Urea Nitrogen 25 7-18 mg/dl Creatinine 1.00 0.60-1.20 mg/dl Est Creatinine Clear Calc Drug Dose 70.6 ml/min Estimated GFR () 67.5 Estimated GFR (Non- 58.3 BUN/Creatinine Ratio 24.7 10-20 Random Glucose 137 70-99 mg/dl Calcium Level 8.0 8.5-10.1 mg/dl Magnesium Level 1.5 1.8-2.4 mg/dl Total Bilirubin 0.9 0.2-1 mg/dl Direct Bilirubin 0.4 0-0.2 mg/dl Aspartate Amino Transf (AST/SGOT) 243 15-37 U/L Alanine Aminotransferase (ALT/SGPT) 224 12-78 U/L Alkaline Phosphatase 125 45-117 U/L Total Creatine Kinase 57 26-192 U/L Creatine Kinase MB 1.2 0.5-3.6 ng/ml Creatine Kinase MB Ratio 2.1 0-3.0 Troponin I 0.018 0-0.045 ng/ml Total Protein 6.6 6.4-8.2 gm/dl Albumin 2.7 3.4-5.0 gm/dl Lipase 102 73-393 U/L Thyroid Stimulating Hormone (TSH) 1.830 0.300-4.500 uIu/ml Urine Color DK YELLOW Urine Appearance CLOUDY CLEAR Urine pH 5.5 4.5-7.5 Urine Specific [place] 1.021 1.000-1.030 Urine Protein 3+ NEG Urine Glucose (UA) NEG NEG Urine Ketones TRACE NEG Urine Occult Blood 2+ NEG Urine Nitrite NEG NEG Urine Bilirubin NEG NEG Urine Urobilinogen NEG NEG Urine Leukocyte Esterase SMALL NEG Urine WBC (Auto) >30 0-5 /hpf Urine RBC (Auto) 5-10 0-4 /hpf Urine Hyaline Casts (Auto) 1-5 0-5 /lpf Urine Epithelial Cells (Auto) 5-10 0-5 /lpf Urine Bacteria (Auto) 4+ NEG Test 07/19/17 21:47 Range/Units Microbiology Results 07/19/17 Urine Culture, Received Pending Diagnostic Radiology CT HEAD: IMPRESSION: 1. Nonspecific white matter hypodensities. While likely on a small vessel basis, one cannot with certainty exclude an underlying neoplasm. If further evaluation is clinically indicated, an MRI without and with contrast would be considered the test of choice. 2. Suspected age-indeterminate infarct in the region of the left lentiform nucleus and external capsule CXR: IMPRESSION: 1. Stable mild cardiomegaly 2. Stable right hilar prominence 3. No evidence of acute parenchymal consolidation EKG EKG: Rate 73, NSR, no ST elevations noted. Impression Assessment and Plan HISTORY CONFUSION Patient reports intermittent confusion 2 days ago. Intermittent headaches. Currently patient alert and oriented 3. In ER CT head: 1. Nonspecific white matter hypodensities. While likely on a small vessel basis, one cannot with certainty exclude an underlying neoplasm. If further evaluation is clinically indicated, an MRI without and with contrast would be considered the test of choice. 2. Suspected age-indeterminate infarct in the region of the left lentiform nucleus and external capsule DDX: Metabolic encephalopathy, stroke, hypoglycemic episodes. Upon ER arrival glucose 69 increased to 156 -Continue to monitor -Pending UA -May consider MRI brain -Ammonia level added Monitor CBC, electrolytes HYPOMAGNESIA Magnesium: 1.5. Patient given 1 g of magnesium IV in ER -Monitor magnesium lab HYPOKALEMIA K: 3.2. Patient given 20 mEq potassium p.o. in ER. Patient appears dry on exam , IV fluids given in ER. -Replace and monitor electrolytes ELEVATED LIVER FUNCTIONS AST: 243 (baseline 64), ALT: 224 (baseline 61), alk phos: 125 (baseline 90). Total bili: 0.9, direct bili 0.4, patient denies any abdominal pain -Consider holding statin, adjusting amiodarone. -Monitor liver functions PAROXYSMAL ATRIAL FIBRILLATION Patient on amiodarone, warfarin, metoprolol. Currently in sinus rhythm. INR: 1.4 -May need to consider decreasing dose of amiodarone, changing meds secondary to elevated liver functions CHRONIC LOWER EXTREMITY WOUND Patient following with wound clinic reports improvement of wound SOB ON EXERTION Patient reports increasing shortness of breath over the past 1-2 weeks. Reports chronic lower extremity edema. CXR: Stable cardiomyopathy and stable right hilar prominence. Afebrile, no leukocytosis, 95-97% on room air. Patient on Bumex, Spironolactone HYPERTENSION Patient on lisinopril, metoprolol DM II H A1c 6.2 on 04/18 -Hold Prandin -Insulin sliding scale per protocol NOCTURNAL HYPOXIA/EDYTA Patient on 2 L NC at bedtime, recent sleep study sleep study revealed EDYTA, pending CPAP -Continue 2 L oxygen NC HS HYPOTHYROIDISM TSH: 1.8 -Continue levothyroxine HYPERLIPIDEMIA Lipid panel on 10/17. Total: 183, LDL: 83, HDL: 80, triglycerides: 102 -Patient on statin, consider holding statin with elevated liver functions GOUT -On allopurinol CHRONIC ANEMIA Hgb: 11.5. ~baseline. No active bleeding. Patient on iron supplements -Monitor H&H HISTORY OF GASTRIC ULCER -Continue PPI DVT Prophylaxis -Per attending physician Disposition admit telemetry Full code as per discussion with pt Follows with Dr Whitmore for routine care Pt was seen with Dr Resendez. See addendum for further assessment, management, plan Resuscitation Status VTE Prophylaxis Will order VTE Prophylaxis: Yes Additional Copies To Micah Whitmore MD Assessment/Plan FINAL ASSESSMENT AND PLAN as follows : 1. Transient encephalopathy multifactorial : complicated urinary tract infection, no sepsis. (px denies bladder symptoms however) hypertensive urgency clinical dehydration 2. Paroxysmal atrial fibrillation, normal sinus rhythm, rate controlled. INR subtherapeutic. 3. 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 4. Hypokalemia secondary to diuretic Rx, clinical dehydration 5. DM2 on oral meds well controlled as of recent HgA1c. 6. Chronic anemia, hemoglobin at baseline 7. chronic LE wounds periodic outpatient follow-up at [facility]. 8. 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 GMF Follow urine cultures, IV Cefepime for now. Hold home diuretics until patient is euvolemic Replace K check orthostatic vitals RE dizziness follow LFTs. Liver ultrasound, GI consult if w/ worsening in a.m. Cardiology consult RE recommendations for amiodarone dosing/alternative in the light of possible liver toxicity. ISS BG goal 140-180. Patient due for hemoglobin A1c check. PT OT eval DVT prophylaxis Coumadin, INR 2-3. Full code.
[2017-07-20] MEDS ORDERED: AMIODARONE 200 MG TAB PO ONE (00:35)
[2017-07-20] MEDS ORDERED: MoRPHine SULFATE 4 MG/ML 1 ML CARP\\VIAL IV PRN (00:45)
[2017-07-20] MEDS ORDERED: DEXTROSE 50% 50 ML SYR IV PRN (00:45)
[2017-07-20] MEDS ORDERED: ACETAMINOPHEN 325 MG TAB PO PRN (00:45)
[2017-07-20] MEDS ORDERED: GLUCOSE 10 TABS/TUBE PO PRN (00:45)
[2017-07-20] MEDS ORDERED: PROCHLORPERAZINE INJ 5 MG in SYRINGE 4 ML IV PRN (00:45)
[2017-07-20] MEDS ORDERED: GLUCAGON FOR INJ 1 MG VIAL SQ PRN (00:45)
[2017-07-20] MEDS ORDERED: GLUCOSE 40% GEL 15 GM TUBE PO PRN (00:45)
[2017-07-20] MEDS ORDERED: INSULIN ASPART 100 UNITS/ML 3 ML PEN SC STA (00:53)
[2017-07-20] MEDS ORDERED: METOPROLOL TARTRATE 100 MG TAB PO STA (00:55)
[2017-07-20] MEDS ORDERED: WARFARIN SOD 7.5 MG TAB PO STA (00:55)
[2017-07-20 01:15] VITALS: BP 178/106; PULSE 70; TEMP 36.6; O2SAT 94; Ht 152.4 cm; Wt 140.6 kg
[2017-07-20] MEDS ORDERED: NSS + 20MEQ KCL 1000ML 1,000 ML IV ONE (01:30)
[2017-07-20] MEDS ORDERED: IV FLUIDS COMPLETED PRN (05:00)
[2017-07-20 05:51] LABS: INFLUENZA B ANTIGEN Neg for Influ B (NEG)
[2017-07-20] MEDS: LEVOTHYROXINE 50 MCG TAB PO SCH (06:24)
[2017-07-20] MEDS ORDERED: INSULIN GLARGINE SOLOSTAR 100 UNITS/ML 3 ML PEN SC ONE (06:47)
[2017-07-20 07:24] LABS: BASO % 0.4 %; BASO ABS # 0.03 K/uL (0-0.2); EOS % 0.6 %; EOS ABS # 0.05 K/uL (0-0.5); HEMATOCRIT 35.2 % (37-47); HEMOGLOBIN 11.3 g/dL (12.0-16.0); IG# 0.03 K/uL (0.00-0.02); LYMPH % 12.9 %; LYMPH ABS # 1.08 K/uL (1.2-3.4); MEAN CELL VOLUME 85.6 fL (80-100); MEAN CORPUSCULAR HEMOGLOBIN 27.5 pg (25-34); MEAN CORPUSCULAR HGB CONC 32.1 g/dl (32-36); MEAN PLATELET VOLUME 10.3 fL (7.4-10.4); MONO % 18.5 %; MONO ABS # 1.55 K/uL (0.11-0.59); NEUT % 67.2 %; NEUT ABS # 5.62 K/uL (1.4-6.5); PLATELET COUNT 183 K/uL (130-400); RED CELL DISTRIBUTION WIDTH CV 15.8 % (11.5-14.5); RED CELL DISTRIBUTION WIDTH SD 49.9 fL (36.4-46.3); WHITE BLOOD COUNT 8.36 K/uL (4.8-10.8)
[2017-07-20 07:32] LABS: INR 1.3 (0.9-1.1)
[2017-07-20 07:35] VITALS: BP 172/72; PULSE 57; TEMP 36.9; O2SAT 98
[2017-07-20 07:52] LABS: CALCIUM 8.2 mg/dl (8.5-10.1); CREATININE 0.88 mg/dl (0.60-1.20); POTASSIUM 3.3 mmol/L (3.5-5.1)
[2017-07-20 08:00] VITALS: O2SAT 98
[2017-07-20 08:24] LABS: ALBUMIN 2.4 gm/dl (3.4-5.0); TOTAL PROTEIN 6.2 gm/dl (6.4-8.2)
[2017-07-20] MEDS: TRAMADOL HCL 50 MG TAB PO PRN ×2 (08:59→19:54)
[2017-07-20] MEDS: METOPROLOL TARTRATE 100 MG TAB PO SCH ×2 (09:00→19:56)
[2017-07-20] MEDS: FERROUS SULFATE 325 MG TAB PO SCH (09:00)
[2017-07-20] MEDS ORDERED: AMIODARONE 200 MG TAB PO SCH (09:00)
[2017-07-20] MEDS: PANTOprazole SOD 40 MG TAB PO SCH (09:00)
[2017-07-20] MEDS: MULTIVITAMIN TAB PO SCH (09:00)
[2017-07-20] MEDS: AMIODARONE 200 MG TAB PO SCH (09:01)
[2017-07-20] MEDS: LISINOPRIL 40 MG TAB PO SCH (09:01)
[2017-07-20] MEDS: INSULIN ASPART 100 UNITS/ML 3 ML PEN SC SCH ×4 (11:00→21:17)
[2017-07-20] MEDS ORDERED: CEFEPIME CONSULT ACTIVE PRN (11:15)
--- NOTE | 2017-07-20 11:26 | Cardiology Consultation ---
Cardiology Consultation Date of Consultation: Jul 20, 2017 Requesting Physician: Mal Attending Chain Mender: Maria Elena (Florentin Senior PA-C) History of Present Illness Ms. 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 James secondary to abnormal LFTs, recommendations regarding amiodarone therapy. The patient was admitted through the [facility] emergency room on July 19, 2016 with complaints of increased shortness of breath 2 weeks duration, intermittent confusion, intermittent headaches, chills on Wednesday, and a nonproductive cough. She notes mechanical fall 4 days ago, injuring the dorsal aspect of the left foot. Patient with a history of left lower extremity wound, followed by the wound clinic, resolving. She notes recently diagnosis of sleep apnea for which CPAP has been authorized though not yet obtained. Laboratory work on presentation notable for hypoglycemia, hypokalemia, hypomagnesemia, abnormal LFTs, normal TSH. She was negative for influenza. Urinalysis is suggestive of UTI however patient is asymptomatic in this regard. EKG on presentation revealed normal sinus rhythm at 73 bpm with a QTC of 471 ms. The patient was not admitted to a monitored bed. Chest x-ray revealed stable mild cardiomegaly, stable right hilar prominence; there was no evidence of acute parenchymal consolidation. Head CT revealed nonspecific white matter hypodensities and a suspected age-indeterminate infarct in the region of the left lentiform nucleus and external capsule The patient denies chest pain. No palpitations. She notes stable exertional dyspnea and intermittent periods of dyspnea occurring without rhyme or reason. She notes intermittent confusion, describing not being able to come up with medication doses when working. She notes chills on Wednesday and possibly Wednesday. She notes a healing wound in the left lower extremity. She notes mechanical injury to the dorsal aspect of the left foot approximately 4 days ago. No dizziness, near-syncope, or true syncope. No fevers or chills. No excessive bruising or bleeding. (Florentin Senior PA-C) Past Medical/Surgical History Problem List: Paroxysmal atrial fibrillation Difficult to control hypertension Diastolic congestive heart failure Chronic lower extremity peripheral edema Type 2 diabetes mellitus Stage III chronic kidney disease Dyslipidemia. Statin intolerance Gout Anemia Osteoarthritis Gastric ulcer, H. pylori infection Carpal tunnel syndrome Right shoulder repair Tonsillectomy/adenoidectomy as a child Basal cell carcinoma-hairline, Mohs surgery Carpal tunnel surgery Left knee replacement, 2004 (Florentin Senior PA-C) Family History Diabetes mellitus FH: CHF (congestive heart failure) GRANDMOTHER Hypertension Father at 90. He had a stroke. Mother with CAD. Brother with CAD, pacemaker. Daughter with congenital pulmonic stenosis. (Florentin Senior PA-C) Diabetes mellitus FH: CHF (congestive heart failure) GRANDMOTHER Hypertension (Guille Arredondo DO) Social History Non-smoker. No significant alcohol consumption. No illegal drug use. [employer], [employer] on 64. . Two children. Smoking Status: Never Smoker Smokeless Tobacco Use: No Alcohol Use: occasionally Drug Use: none Marital Status: Occupation: employed (Florentin Senior PA-C) Review Of Systems Complete review of system is otherwise as stated above, negative, noncontributory. (Florentin Senior PA-C) Allergies Coded Allergies: Penicillins (Verified Allergy, Intermediate, URTICARIA; PER PT, CAN TAKE AMOXICILLIN, 04/07/17) Erythromycin (Verified Adverse Reaction, Mild, GI UPSET, 04/07/17) Medications Reported Home Medications Medications Dose Route/Sig Max Daily Dose Days Date Category Dose Instructions Oxygen Gas 2 Liters NA HS 07/19/17 Reported Vitamin D3 (Cholecalciferol) 1,000 Unit Tab 1,000 Units PO DAILY 07/19/17 Reported Aldactone (Spironolactone) 25 Mg Tab 25 Mg PO DAILY 07/19/17 Reported Zocor (Simvastatin) 10 Mg Tab 10 Mg PO QPM 07/19/17 Reported Jantoven (Warfarin Sodium) 5 Mg Tab 5 Mg PO 4XWK 07/19/17 Reported TAKE 5MG EVERY WEDNESDAY/WEDNESDAY/WEDNESDAY/WEDNESDAY. Lopressor (Metoprolol Tartrate) 100 Mg Tab 100 Mg PO BID 07/19/17 Reported Jantoven (Warfarin Sodium) 7.5 Mg Tab 7.5 Mg PO 3XWK 07/19/17 Reported TAKE 7.5MG EVERY WEDNESDAY/WEDNESDAY/WEDNESDAY. Kp Ferrous Sulfate (Ferrous Sulfate) 325 Mg Tab 325 Mg PO DAILY 07/19/17 Reported Bumex (Bumetanide) 1 Mg Tab 1 Mg PO DAILY 07/19/17 Reported Cordarone (Amiodarone Hcl) 200 Mg Tab 200 Mg PO BID 07/19/17 Reported Levothyroxine Sodium 50 Mcg Tab 50 Mcg PO DAILY 07/19/17 Reported Motrin (Ibuprofen) 400 Mg Tab 400 Mg PO BID 04/07/17 Reported PRN Prandin (Repaglinide) 1 Mg Tab 0.5 Mg PO AC 01/13/17 Reported Zestril (Lisinopril) 40 Mg Tab 40 Mg PO DAILY 01/13/17 Reported Ultram (Tramadol HCl) 50 Mg Tab 2 Tab PO QID PRN 07/19/16 Reported Zyloprim (Allopurinol) 100 Mg Tab 200 Mg PO HS 07/19/16 Reported Prilosec (Omeprazole) 20 Mg Capcr 20 Mg PO DAILY 07/19/16 Reported Multivitamin (Multiple Vitamin) 1 Tab Tab 1 Tab PO DAILY 05/15/12 Reported (Florentin Senior PA-C) Physical Exam Vital Signs (Last 8hrs): Last 8 Hrs Date Time Temp Pulse Resp B/P (MAP) Pulse Ox O2 Delivery O2 Flow Rate FiO2 07/20/17 07:35 36.9 57 18 172/72 (105) 98 Room Air General Appearance: Alert and Oriented x3. NAD. Elevated BMI HEENT: Normocephalic Atraumatic. PER. EOMI. Conjunctiva and sclera clear Neck: Supple. No overt JVD. Respiratory: Diminished at the bases but clear. No abnormal breath sounds appreciated. Cardiovascular: Distant heart sounds. Regular rate and rhythm. No murmurs appreciated. Abdomen: Obese. +BS. Soft. Nontender. Extremities: 1+ chronic indurated edema. No cyanosis. No pulses. Neuro: No focal deficits. Psychiatric: Normal affect. (Florentin Senior PA-C) Data Last 24 Hours Test 07/19/17 18:21 07/19/17 19:25 07/19/17 19:31 07/19/17 20:50 Bedside Glucose 69 mg/dl 156 mg/dl White Blood Count 9.91 K/uL Red Blood Count 4.19 M/uL Hemoglobin 11.5 g/dL Hematocrit 35.6 % Mean Corpuscular Volume 85.0 fL Mean Corpuscular Hemoglobin 27.4 pg Mean Corpuscular Hemoglobin Concent 32.3 g/dl Platelet Count 171 K/uL Mean Platelet Volume 10.1 fL Neutrophils (%) (Auto) 79.5 % Lymphocytes (%) (Auto) 6.8 % Monocytes (%) (Auto) 13.2 % Eosinophils (%) (Auto) 0.1 % Basophils (%) (Auto) 0.2 % Neutrophils # (Auto) 7.88 K/uL Lymphocytes # (Auto) 0.67 K/uL Monocytes # (Auto) 1.31 K/uL Eosinophils # (Auto) 0.01 K/uL Basophils # (Auto) 0.02 K/uL RDW Standard Deviation 49.1 fL RDW Coefficient of Variation 15.6 % Immature Granulocyte % (Auto) 0.2 % Immature Granulocyte # (Auto) 0.02 K/uL Prothrombin Time 14.2 SECONDS Prothromb Time International Ratio 1.4 Activated Partial Thromboplast Time 31.9 SECONDS Partial Thromboplastin Ratio 1.2 Sodium Level 136 mmol/L Potassium Level 3.2 mmol/L Chloride Level 99 mmol/L Carbon Dioxide Level 29 mmol/L Anion Gap 8.0 mmol/L Blood Urea Nitrogen 25 mg/dl Creatinine 1.00 mg/dl Est Creatinine Clear Calc Drug Dose 70.6 ml/min Estimated GFR () 67.5 Estimated GFR (Non- 58.3 BUN/Creatinine Ratio 24.7 Random Glucose 137 mg/dl Estimated Average Glucose 126 mg/dl Hemoglobin A1c 6.0 % Calcium Level 8.0 mg/dl Magnesium Level 1.5 mg/dl Total Bilirubin 0.9 mg/dl Direct Bilirubin 0.4 mg/dl Aspartate Amino Transf (AST/SGOT) 243 U/L Alanine Aminotransferase (ALT/SGPT) 224 U/L Alkaline Phosphatase 125 U/L Total Creatine Kinase 57 U/L Creatine Kinase MB 1.2 ng/ml Creatine Kinase MB Ratio 2.1 Troponin I 0.018 ng/ml Total Protein 6.6 gm/dl Albumin 2.7 gm/dl Lipase 102 U/L Thyroid Stimulating Hormone (TSH) 1.830 uIu/ml Urine Color DK YELLOW Urine Appearance CLOUDY Urine pH 5.5 Urine Specific [place] 1.021 Urine Protein 3+ Urine Glucose (UA) NEG Urine Ketones TRACE Urine Occult Blood 2+ Urine Nitrite NEG Urine Bilirubin NEG Urine Urobilinogen NEG Urine Leukocyte Esterase SMALL Urine WBC (Auto) >30 /hpf Urine RBC (Auto) 5-10 /hpf Urine Hyaline Casts (Auto) 1-5 /lpf Urine Epithelial Cells (Auto) 5-10 /lpf Urine Bacteria (Auto) 4+ Test 07/19/17 22:37 07/20/17 01:54 07/20/17 05:23 07/20/17 06:36 Ammonia 21.3 umol/L Bedside Glucose 232 mg/dl Influenza Type A Antigen Neg for Influ A Influenza Type B Antigen Neg for Influ B White Blood Count 8.36 K/uL Red Blood Count 4.11 M/uL Hemoglobin 11.3 g/dL Hematocrit 35.2 % Mean Corpuscular Volume 85.6 fL Mean Corpuscular Hemoglobin 27.5 pg Mean Corpuscular Hemoglobin Concent 32.1 g/dl Platelet Count 183 K/uL Mean Platelet Volume 10.3 fL Neutrophils (%) (Auto) 67.2 % Lymphocytes (%) (Auto) 12.9 % Monocytes (%) (Auto) 18.5 % Eosinophils (%) (Auto) 0.6 % Basophils (%) (Auto) 0.4 % Neutrophils # (Auto) 5.62 K/uL Lymphocytes # (Auto) 1.08 K/uL Monocytes # (Auto) 1.55 K/uL Eosinophils # (Auto) 0.05 K/uL Basophils # (Auto) 0.03 K/uL RDW Standard Deviation 49.9 fL RDW Coefficient of Variation 15.8 % Immature Granulocyte % (Auto) 0.4 % Immature Granulocyte # (Auto) 0.03 K/uL Prothrombin Time 14.0 SECONDS Prothromb Time International Ratio 1.3 Sodium Level 137 mmol/L Potassium Level 3.3 mmol/L Chloride Level 102 mmol/L Carbon Dioxide Level 29 mmol/L Anion Gap 6.0 mmol/L Blood Urea Nitrogen 22 mg/dl Creatinine 0.88 mg/dl Est Creatinine Clear Calc Drug Dose 81.8 ml/min Estimated GFR () 78.8 Estimated GFR (Non- 68.0 BUN/Creatinine Ratio 24.5 Random Glucose 134 mg/dl Calcium Level 8.2 mg/dl Magnesium Level 2.0 mg/dl Total Bilirubin 0.6 mg/dl Direct Bilirubin 0.3 mg/dl Aspartate Amino Transf (AST/SGOT) 243 U/L Alanine Aminotransferase (ALT/SGPT) 240 U/L Alkaline Phosphatase 121 U/L Total Protein 6.2 gm/dl Albumin 2.4 gm/dl Test 07/20/17 07:50 Bedside Glucose 126 mg/dl Imaging: See above. EKG: See above. Telemetry: Nonmonitored bed. (Florentin Senior PA-C) Assessment & Plan Complex 67-year-old female seen in cardiology consultation due to abnormal LFTs , recommendations regarding amiodarone therapy. Patient hospitalized with multiple issues including confusion, intermittent headaches, multiple electrolyte abnormalities. Abnormal LFTs appear to be multifactorial in etiology. Options discussed with patient and her primary parquetry layer Dr. Foster. Simvastatin will be placed on hold. Amiodarone will be decreased to 200 mg once per day. Metoprolol will be continued at 100 mg twice per day, hopefully preventing recurrent atrial fibrillation. Electrolyte disturbances to be corrected with normokalemia and normal magnesium levels to be achieved and maintained. LFT's should be followed with consideration to be made for imaging of her liver as well as GI evaluation. Resting echocardiography requested. Right heart failure signs/symptoms appear to be stable at present. There is no overt evidence that this represents an acute coronary syndrome. (Florentin Senior PA-C) Cardiology Attending Physician: Patient seen and examined at the bedside. Admitted with confusion. CT suggesting cerebrovascular accident. INR is therapeutic. Consultation requested due to abnormal LFTs. Patient denies chest discomfort or unusual shortness of breath. Mild worsening of left pedal edema due to recent injury. Previously reported confusion has resolved. Patient offers no other complaints. PE: VSS. Gen: NAD, AAOx3. Heart: Regular, normal S1, normal S2. No murmur appreciated. Lungs: Distant breath sounds. No rales, rhonchi, or wheeze. Abdomen: Obese, nontender. Extremities: +1 bilateral pretibial edema with stasis changes. A/P: Agree with above SHEKHAR history, physical exam, assessment and plan. Amiodarone will be reduced to 200 mg once daily. Right upper quadrant ultrasound requested. Repeat hepatic function panel in a.m. Resting 2D transthoracic echocardiogram ordered. Will not titrate diuretic therapy at this time. I will continue to follow patient during hospitalization. Thank you for allowing me to participate in the care of your patient. Jah Arredondo DO, FACC (Guille Arredondo, )
[2017-07-20] MEDS ORDERED: POTASSIUM CHLORIDE 20 MEQ TABCR PO ONE (11:30)
--- NOTE | 2017-07-20 11:43 | HISTORY & PHYSICAL EXAMINATION ---
DATE OF ADMISSION: 07/20/2017 IM ATTENDING : Patient seen and examined. History obtained per patient and records. Preceding documentation by Ms. Marilee Doty PA-C reviewed. FINAL ASSESSMENT AND PLAN as follows : 1. Transient encephalopathy multifactorial : complicated urinary tract infection, no sepsis. (px denies bladder symptoms however) hypertensive urgency clinical dehydration 2. Paroxysmal atrial fibrillation, normal sinus rhythm, rate controlled. INR subtherapeutic. 3. Abnormal LFTs Some progression from mild elevation noted outpatient April 2017 possibly from Amiodarone Patient's nut former was contemplating on decreasing either decreasing Amiodarone dose to once daily dosing or perhaps switching the patient to [place] if with progression of transaminitis as per outpatient note. 4. Hypokalemia secondary to diuretic Rx, clinical dehydration 5. DM2 on oral meds well controlled as of recent HgA1c. 6. Chronic anemia, hemoglobin at baseline 7. chronic LE wounds periodic outpatient follow-up at [facility]. 8. 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 GMF Follow urine cultures, IV Cefepime for now. Hold home diuretics until patient is euvolemic Replace K check orthostatic vitals RE dizziness follow LFTs. Liver ultrasound, GI consult if w/ worsening in a.m. Cardiology consult RE recommendations for amiodarone dosing/alternative in the light of possible liver toxicity. ISS BG goal 140-180. Patient due for hemoglobin A1c check. PT OT eval DVT prophylaxis Coumadin, INR 2-3. Full code. MTDD
[2017-07-20] MEDS: CEFEPIME IV 2,000 MG in SYRINGE 7.5 ML IV SCH ×2 (11:48→21:15)
--- NOTE | 2017-07-20 13:48 | DIAGNOSTIC IMAGING REPORT ---
(LIVER) ABDOMEN LIMITED CLINICAL HISTORY: 67 years-old Female presenting with abnormal lft's. amio + statin. ? fatty liver. . TECHNIQUE: Real-time grayscale and limited color Doppler ultrasound imaging of the abdomen limited to the right upper quadrant was performed. COMPARISON: CT from 2005. FINDINGS: Pancreas: Visualized portions of the pancreatic head and body normal. Liver: Diffusely hypoechogenic liver parenchyma. The liver measures 19.1 cm in maximal sagittal dimension. No sonographic evidence of hepatic mass. Main portal vein patent with normal directional flow. Biliary: No intrahepatic biliary ductal dilatation. Common bile duct measures up to 3 mm in diameter. Gallbladder: No evidence of gallstones, gallbladder wall thickening, gallbladder distention, or pericholecystic fluid or inflammatory change. Right kidney: Normal in appearance. No hydronephrosis. Ascites: None. Other: None. IMPRESSION: Diffusely hypoechogenic liver parenchyma is most concerning for diffuse parenchymal edema in the setting of hepatitis. Electronically signed by: Kyle Barrett M.D. 07/20/2017 1:47 PM Dictated Date/Time: 07/20/2017 1:41 PM
[2017-07-20 15:46] VITALS: BP 178/89; PULSE 59; TEMP 36.9; O2SAT 97
[2017-07-20 16:00] VITALS: O2SAT 96
--- NOTE | 2017-07-20 16:51 | Progress Note ---
Medicine Progress Note Date & Time of Visit: Jul 20, 2017 at 16:50. Subjective Patient reports feeling like her usual self. No additional symptoms of confusion or dizziness. Denies any CP, or SOB. No overnight events noted. Tolerating PO without nausea or pain. Ambulating without difficulty. Objective Last 8 Hrs Date Time Temp Pulse Resp B/P (MAP) Pulse Ox O2 Delivery O2 Flow Rate FiO2 07/20/17 15:46 36.9 59 18 178/89 (118) 97 Room Air Physical Exam: GENERAL: Patient is in no acute distress. HEENT: No acute trauma, normocephalic, mucous membranes moist, no nasal congestion, no scleral icterus. NECK: No stridor, trachea is midline. LUNGS: Diminished breath sounds bilaterally, no wheeze, no rhonchi, breath sounds equal. HEART: Without murmurs gallops or rubs, regular rate and rhythm. ABDOMEN: Soft, nontender, bowel sounds positive, obese EXTREMITIES: No cyanosis or edema, intact range of motion of all the joints without pain or difficulty, no signs for acute trauma. NEUROLOGIC: Oriented x 3, no acute motor or sensory deficits, no focal weakness. SKIN: No rash, no jaundice, no diaphoresis. Laboratory Results: Last 24 Hours Test 07/19/17 18:21 07/19/17 19:25 07/19/17 19:31 07/19/17 20:50 Bedside Glucose 69 mg/dl 156 mg/dl White Blood Count 9.91 K/uL Red Blood Count 4.19 M/uL Hemoglobin 11.5 g/dL Hematocrit 35.6 % Mean Corpuscular Volume 85.0 fL Mean Corpuscular Hemoglobin 27.4 pg Mean Corpuscular Hemoglobin Concent 32.3 g/dl Platelet Count 171 K/uL Mean Platelet Volume 10.1 fL Neutrophils (%) (Auto) 79.5 % Lymphocytes (%) (Auto) 6.8 % Monocytes (%) (Auto) 13.2 % Eosinophils (%) (Auto) 0.1 % Basophils (%) (Auto) 0.2 % Neutrophils # (Auto) 7.88 K/uL Lymphocytes # (Auto) 0.67 K/uL Monocytes # (Auto) 1.31 K/uL Eosinophils # (Auto) 0.01 K/uL Basophils # (Auto) 0.02 K/uL RDW Standard Deviation 49.1 fL RDW Coefficient of Variation 15.6 % Immature Granulocyte % (Auto) 0.2 % Immature Granulocyte # (Auto) 0.02 K/uL Prothrombin Time 14.2 SECONDS Prothromb Time International Ratio 1.4 Activated Partial Thromboplast Time 31.9 SECONDS Partial Thromboplastin Ratio 1.2 Sodium Level 136 mmol/L Potassium Level 3.2 mmol/L Chloride Level 99 mmol/L Carbon Dioxide Level 29 mmol/L Anion Gap 8.0 mmol/L Blood Urea Nitrogen 25 mg/dl Creatinine 1.00 mg/dl Est Creatinine Clear Calc Drug Dose 70.6 ml/min Estimated GFR () 67.5 Estimated GFR (Non- 58.3 BUN/Creatinine Ratio 24.7 Random Glucose 137 mg/dl Estimated Average Glucose 126 mg/dl Hemoglobin A1c 6.0 % Calcium Level 8.0 mg/dl Magnesium Level 1.5 mg/dl Total Bilirubin 0.9 mg/dl Direct Bilirubin 0.4 mg/dl Aspartate Amino Transf (AST/SGOT) 243 U/L Alanine Aminotransferase (ALT/SGPT) 224 U/L Alkaline Phosphatase 125 U/L Total Creatine Kinase 57 U/L Creatine Kinase MB 1.2 ng/ml Creatine Kinase MB Ratio 2.1 Troponin I 0.018 ng/ml Total Protein 6.6 gm/dl Albumin 2.7 gm/dl Lipase 102 U/L Thyroid Stimulating Hormone (TSH) 1.830 uIu/ml Urine Color DK YELLOW Urine Appearance CLOUDY Urine pH 5.5 Urine Specific [place] 1.021 Urine Protein 3+ Urine Glucose (UA) NEG Urine Ketones TRACE Urine Occult Blood 2+ Urine Nitrite NEG Urine Bilirubin NEG Urine Urobilinogen NEG Urine Leukocyte Esterase SMALL Urine WBC (Auto) >30 /hpf Urine RBC (Auto) 5-10 /hpf Urine Hyaline Casts (Auto) 1-5 /lpf Urine Epithelial Cells (Auto) 5-10 /lpf Urine Bacteria (Auto) 4+ Test 07/19/17 22:37 07/20/17 01:54 07/20/17 05:23 07/20/17 06:36 Ammonia 21.3 umol/L Bedside Glucose 232 mg/dl Influenza Type A Antigen Neg for Influ A Influenza Type B Antigen Neg for Influ B White Blood Count 8.36 K/uL Red Blood Count 4.11 M/uL Hemoglobin 11.3 g/dL Hematocrit 35.2 % Mean Corpuscular Volume 85.6 fL Mean Corpuscular Hemoglobin 27.5 pg Mean Corpuscular Hemoglobin Concent 32.1 g/dl Platelet Count 183 K/uL Mean Platelet Volume 10.3 fL Neutrophils (%) (Auto) 67.2 % Lymphocytes (%) (Auto) 12.9 % Monocytes (%) (Auto) 18.5 % Eosinophils (%) (Auto) 0.6 % Basophils (%) (Auto) 0.4 % Neutrophils # (Auto) 5.62 K/uL Lymphocytes # (Auto) 1.08 K/uL Monocytes # (Auto) 1.55 K/uL Eosinophils # (Auto) 0.05 K/uL Basophils # (Auto) 0.03 K/uL RDW Standard Deviation 49.9 fL RDW Coefficient of Variation 15.8 % Immature Granulocyte % (Auto) 0.4 % Immature Granulocyte # (Auto) 0.03 K/uL Prothrombin Time 14.0 SECONDS Prothromb Time International Ratio 1.3 Sodium Level 137 mmol/L Potassium Level 3.3 mmol/L Chloride Level 102 mmol/L Carbon Dioxide Level 29 mmol/L Anion Gap 6.0 mmol/L Blood Urea Nitrogen 22 mg/dl Creatinine 0.88 mg/dl Est Creatinine Clear Calc Drug Dose 81.8 ml/min Estimated GFR () 78.8 Estimated GFR (Non- 68.0 BUN/Creatinine Ratio 24.5 Random Glucose 134 mg/dl Calcium Level 8.2 mg/dl Magnesium Level 2.0 mg/dl Total Bilirubin 0.6 mg/dl Direct Bilirubin 0.3 mg/dl Aspartate Amino Transf (AST/SGOT) 243 U/L Alanine Aminotransferase (ALT/SGPT) 240 U/L Alkaline Phosphatase 121 U/L Total Protein 6.2 gm/dl Albumin 2.4 gm/dl Test 07/20/17 07:50 07/20/17 11:29 Bedside Glucose 126 mg/dl 222 mg/dl Date/Time Source Procedure Growth Status 07/19/17 20:50 Urine , Clean Catch Urine Culture - Preliminary Gram Negative Bacilli Resulted Assessment & Plan AMS/CONFUSION: -patient reports intermittent confusion 2 days before admission with intermittent headaches -presently patient alert and oriented 3 and at baseline -CT head: 1. Nonspecific white matter hypodensities. While likely on a small vessel basis, one cannot with certainty exclude an underlying neoplasm. If further evaluation is clinically indicated, an MRI without and with contrast would be considered the test of choice. 2. Suspected age-indeterminate infarct in the region of the left lentiform nucleus and external capsule -differential includes metabolic encephalopathy, stroke, hypoglycemic episodes. Upon ER arrival glucose 69 increased to 156 -Continue to monitor -UA neg, culture pending -consider MRI brain -Ammonia level normal HYPOMAGNESIA: -replete and recheck HYPOKALEMIA: -K: 3.2. Patient given 20 mEq potassium p.o. in ER. Patient appears dry on exam, IV fluids given in ER. -Replace and monitor electrolytes ACUTE TRANSAMINITIS: -AST: 243 (baseline 64), ALT: 224 (baseline 61), alk phos: 125 (baseline 90). Total bili: 0.9, direct bili 0.4, patient denies any abdominal pain -holding statin, amiodarone dose lowered -Monitor liver functions -RUQ US PAROXYSMAL ATRIAL FIBRILLATION: -on amiodarone, warfarin, metoprolol. Currently in sinus rhythm. INR: 1.4 -May need to consider decreasing dose of amiodarone vs changing meds secondary to elevated liver functions CHRONIC LOWER EXTREMITY WOUND: -patient following with wound clinic reports improvement of wound HERRERA: -reports increasing shortness of breath over the past 1-2 weeks as well as chronic lower extremity edema -CXR: Stable cardiomyopathy and stable right hilar prominence. -Afebrile, no leukocytosis, 95-97% on room air. -Patient on Bumex, Spironolactone which have been held for now HYPERTENSION: -continued on lisinopril, metoprolol DM TYPE II: -HbA1c: 6.2 on 04/18 -Prandin held -correction scale insulin while in hospital NOCTURNAL HYPOXIA/EDYTA: -was on 2 L NC at bedtime, recent sleep study sleep study revealed EDYTA, CPAP set up is pending -Continue 2 L oxygen NC HS for now HYPOTHYROIDISM: -TSH: 1.8 -Continue levothyroxine HYPERLIPIDEMIA: -was on statin, held statin due to acutely elevated lfts GOUT: -continue allopurinol CHRONIC ANEMIA: -Hgb: 11.5. ~baseline. No active bleeding. Patient on iron supplements -Monitor H&H HISTORY OF GASTRIC ULCER: -continue PPI -discussed with the patient her chronic NSAID use and the cardiovascular and GI effects, patient understands the risk and prefers to take NSAIDs as they have helped her Current Inpatient Medications: Current Inpatient Medications Medications (Trade) Dose Ordered Sig/Scott Route Start Time Stop Time Status Last Admin Dose Admin Acetaminophen (Tylenol Tab) 325 mg Q6H PRN PO 07/20/17 00:45 08/19/17 00:44 Insulin Aspart (novoLOG ASPART) SLIDING SCALE If C... ACHS SC 07/20/17 06:30 08/19/17 06:59 07/20/17 13:03 2 UNITS Glucose (Glucose 40% Gel) 15-30 GRAMS 15 GRAMS... UD PRN PO 07/20/17 00:45 08/19/17 00:44 Glucose (Glucose Chew Tab) 4-8 Tablets 4 Tabl... UD PRN PO 07/20/17 00:45 08/19/17 00:44 Dextrose (Dextrose 50% 50ML Syringe) 25-50ML OF 50% DW IV FOR... UD PRN IV 07/20/17 00:45 08/19/17 00:44 Glucagon (Glucagon Inj) 1 mg UD PRN SQ 07/20/17 00:45 08/19/17 00:44 Prochlorperazine Edisylate 5 mg/ Syringe 5 ml @ 5 mls/min Q6H PRN IV 07/20/17 00:45 08/19/17 00:44 Tramadol HCl (Ultram Tab) not relieved by tylenol @ Q6H PRN PO 07/20/17 00:45 08/19/17 00:44 07/20/17 08:59 50 MG Allopurinol (Zyloprim Tab) 200 mg HS PO 07/20/17 21:00 08/19/17 20:59 Levothyroxine Sodium (Synthroid Tab) 50 mcg DAILYBB PO 07/20/17 06:30 08/19/17 06:29 07/20/17 06:24 50 MCG Lisinopril (Zestril Tab) 40 mg DAILY PO 07/20/17 08:00 08/19/17 08:59 07/20/17 09:01 40 MG Metoprolol Tartrate (Lopressor Tab) 100 mg BID PO 07/20/17 08:00 08/19/17 08:59 07/20/17 09:00 100 MG Multivitamins (Multivitamin Tab) 1 tab DAILY PO 07/20/17 08:00 08/19/17 08:59 07/20/17 09:00 1 TAB Ferrous Sulfate (Feosol Tab) 325 mg DAILY PO 07/20/17 08:00 08/19/17 08:59 07/20/17 09:00 325 MG Pantoprazole Sodium (Protonix Tab) 40 mg QAM PO 07/20/17 08:00 08/19/17 07:59 07/20/17 09:00 40 MG Warfarin Sodium (Coumadin Tab) 7.5 mg DAILY@16 PO 07/20/17 16:00 08/19/17 15:59 Morphine Sulfate (MoRPHine SULFATE INJ) 4 mg Q6H PRN IV 07/20/17 00:45 08/03/17 00:44 Amiodarone HCl (Cordarone Tab) 200 mg DAILY PO 07/20/17 08:00 08/19/17 08:59 07/20/17 09:01 200 MG Miscellaneous (Iv Fluids Completed) 1 ea PRN PRN N/A 07/20/17 05:00 07/20/18 04:59 Cefepime HCl (Consult) 1 ea UD PRN N/A 07/20/17 11:15 08/19/17 11:14 Cefepime HCl 2000 mg/Syringe 20 ml @ 5 mls/min Q12@0900,2100 IV 07/20/17 11:30 07/30/17 11:29 07/20/17 11:48 5 MLS/MIN Cholecalciferol (Vitamin D Tab) 1,000 inter.unit DAILY PO 07/21/17 08:00 08/20/17 07:59 Ibuprofen (Advil Tab) 400 mg BID PO 07/20/17 20:00 08/19/17 19:59
[2017-07-20] MEDS: WARFARIN SOD 7.5 MG TAB PO SCH (17:31)
--- NOTE | 2017-07-20 17:47 | ECHOCARDIOGRAM REPORT ---
*NOTICE TO RECEIVING DEMOCRAT AGENCY This information is strictly Confidential and protected under [place] law. [place] law prohibits you from making any further disclosure of this information unless further disclosure is expressly permitted by the written consent of the person to whom it pertains or is authorized by law. A general authorization for the release of medical or other information is not sufficient for this purpose. Hospital accepts no responsibility if the information is made available to any other person, INCLUDING THE PATIENT. Interpretation Summary * Name: Alex GRISSOM Study Date: 07/20/2017 02:34 PM BP: 172/72 mmHg * Patient Location: .[id number] HR: 57 * : 1950 (M/d/yyy) Gender: Female Height: 60 in * Age: 67 yrs Ethnicity: [place] Weight: 309 lb * Ordering Physician: Florentin Senior * Referring Physician: Self, Referred * Performed By: Iqra Pelletier RCS * * Reason For Study: CHF * BSA: 2.2 m2 * The study was technically difficult. * -- Conclusions -- * Ejection Fraction = 55-60%. * The right ventricle is borderline dilated. * The right ventricular systolic function is normal. * Aortic valve sclerosis mild, without significant aortic valvular stenosis. * There is mild to moderate mitral annular calcification. * There is mild mitral regurgitation. * There is mild tricuspid regurgitation. * Diastolic dysfunction, Grade II (pseudonormalization pattern). Procedure Details * A complete two-dimensional transthoracic echocardiogram was performed (2D, M-mode, Doppler and color flow Doppler). Left Ventricle * The left ventricle is normal in size. * There is no thrombus. * There is normal left ventricular wall thickness. * Ejection Fraction = 55-60%. * Left ventricular systolic function is normal. * No regional wall motion abnormalities noted. Right Ventricle * The right ventricle is not well visualized. * The right ventricle is borderline dilated. * The right ventricular systolic function is normal. Atria * The left atrial size is normal. * Right atrial size is normal. * There is no evidence of atrial septal defect, but resolution does not allow assessment for a patent foramen ovale. Mitral Valve * There is mild to moderate mitral annular calcification. * There is no mitral valve stenosis. * There is mild mitral regurgitation. Tricuspid Valve * The tricuspid valve is not well visualized. * There is no tricuspid stenosis. * There is mild tricuspid regurgitation. * The estimated systolic pulmonary arterial pressure is 27 mmHg. * Doppler findings do not suggest pulmonary hypertension. Aortic Valve * The aortic valve is not well visualized. * Aortic valve sclerosis mild, without significant aortic valvular stenosis. * Aortic stenosis is absent. * There is no significant aortic regurgitation. Pulmonic Valve * The pulmonary valve is not well seen, but the Doppler examination is normal without significant regurgitation or stenosis. Great Vessels * The aortic root is normal size. Pericardium/Pleural * There is no pericardial effusion. Great Vessels * Normal inferior vena cava size and collapsability with sniff indicates a normal right atrial pressure of 3 mmHg Left Ventricular Diastolic Function * Diastolic dysfunction, Grade II (pseudonormalization pattern). MMode 2D Measurements and Calculations IVSd 1.1 cm IVSs 1.5 cm LVIDd 5.3 cm LVIDs 3.9 cm LVPWd 1.1 cm LVPWs 1.6 cm IVS/LVPW 0.94 FS 26.6 % EDV(Teich) 133.1 ml ESV(Teich) 64.3 ml EF(Teich) 51.7 % EDV(cubed) 145.6 ml ESV(cubed) 57.5 ml EF(cubed) 60.5 % % IVS thick 36.8 % % LVPW thick 36.8 % LV mass(C)d 225.9 grams LV mass(C)dI 100.6 grams/m\S\2 LV mass(C)s 223.5 grams LV mass(C)sI 99.5 grams/m\S\2 SV(Teich) 68.7 ml SI(Teich) 30.6 ml/m\S\2 SV(cubed) 88.1 ml SI(cubed) 39.2 ml/m\S\2 Ao root diam 3.3 cm Ao root area 8.4 cm\S\2 ACS 1.6 cm LA dimension 4.1 cm asc Aorta Diam 3.0 cm LA/Ao 1.3 EDV(MOD-sp4) 198.0 ml ESV(MOD-sp4) 125.6 ml EF(MOD-sp4) 36.6 % EDV(MOD-sp2) 197.4 ml ESV(MOD-sp2) 124.2 ml EF(MOD-sp2) 37.0 % SV(MOD-sp4) 72.4 ml SI(MOD-sp4) 32.2 ml/m\S\2 SV(MOD-sp2) 73.1 ml SI(MOD-sp2) 32.6 ml/m\S\2 Doppler Measurements and Calculations MV E max masha 145.8 cm/sec MV A max masha 86.1 cm/sec MV E/A 1.7 MV P1/2t max masha 157.9 cm/sec MV P1/2t 93.7 msec MVA(P1/2t) 2.3 cm\S\2 MV dec slope 493.3 cm/sec\S\2 MV dec time 0.26 sec Ao V2 max 196.9 cm/sec Ao max PG 15.5 mmHg Ao max PG (full) 12.7 mmHg LV V1 max PG 2.8 mmHg LV V1 max 84.2 cm/sec PA V2 max 111.7 cm/sec PA max PG 5.1 mmHg TR max masha 271.1 cm/sec
[2017-07-20] MEDS: ALLOPURINOL 100 MG TAB PO SCH (19:56)
[2017-07-20] MEDS: IBUPROFEN 200 MG TAB PO SCH (19:56)
[2017-07-20] MEDS ORDERED: SIMVASTATIN 10 MG TAB PO SCH (21:00)
[2017-07-20 22:56] VITALS: BP 165/74; PULSE 61; TEMP 36.7; O2SAT 95
[2017-07-21] MEDS: LEVOTHYROXINE 50 MCG TAB PO SCH (06:02)
[2017-07-21] MEDS: FERROUS SULFATE 325 MG TAB PO SCH (07:15)
[2017-07-21] MEDS: MULTIVITAMIN TAB PO SCH (07:15)
[2017-07-21] MEDS: METOPROLOL TARTRATE 100 MG TAB PO SCH ×2 (07:15→20:43)
[2017-07-21] MEDS: CHOLECALCIFEROL 1000 INTER.UNIT TAB PO SCH (07:15)
[2017-07-21] MEDS: PANTOprazole SOD 40 MG TAB PO SCH (07:15)
[2017-07-21] MEDS: LISINOPRIL 40 MG TAB PO SCH (07:15)
[2017-07-21] MEDS: IBUPROFEN 200 MG TAB PO SCH ×2 (07:16→20:42)
[2017-07-21] MEDS: AMIODARONE 200 MG TAB PO SCH (07:16)
[2017-07-21 07:32] VITALS: BP 184/82; PULSE 57; TEMP 36.5; O2SAT 95
--- NOTE | 2017-07-21 07:35 | Clinical Documentation Query ---
CLINICAL DOCUMENTATION QUERY QUERY 1 OF 2 67 yo female admitted with confusion. Patient's BMI = 60 and has a history of nocturnal hypoxia, wearing O2 at 2L at bedtime. Patient recently had a sleep study which showed EDYTA and need for CPAP. In your clinical opinion is this patient being managed for: ( ) Morbid obesity with alveolar hypoventilation ( x ) Not Agree ( ) Other explanation of clinical findings (Please Explain) ( ) Unable to determine (Please Define) ( ) Need to Discuss The medical record reflects the following clinical findings, treatment, and risk factors. Clinical Indicators: As above Treatment: O2, CXR, Cardiology consult Risk Factors: Morbid obesity, EDYTA, hypoxia, confusion QUERY 2 OF 2 Patient documented as having chronic orthopnea, sleeps in a recliner, wears O2 at 2L at bedtime, and has HERRERA. In your clinical opinion is this patient being managed for: ( x ) Chronic respiratory failure with hypoxia ( ) Not Agree ( ) Other explanation of clinical findings (Please Explain) ( ) Unable to determine (Please Define) ( ) Need to Discuss The medical record reflects the following clinical findings, treatment, and risk factors. Clinical Indicators: As above Treatment: O2, continuous pulse ox Risk Factors: Morbid obesity, EDYTA Please clarify and document your clinical opinion in the progress notes and discharge summary. Terms such as "probable", "suspected", "likely", "questionable", "possible", or "still to be ruled out" are acceptable. IF IN AGREEMENT, YOU MUST DOCUMENT ABOVE DIAGNOSTIC STATEMENT IN DAILY PROGRESS NOTES AND DISCHARGE SUMMARY. This document is not part of the patient's record. Thank You, Amanda Lares RN [phone]
[2017-07-21 07:49] LABS: INR 1.4 (0.9-1.1)
[2017-07-21] MEDS ORDERED: INSULIN GLARGINE SOLOSTAR 100 UNITS/ML 3 ML PEN SC SCH (08:00)
[2017-07-21 08:12] LABS: ALBUMIN 2.3 gm/dl (3.4-5.0); TOTAL PROTEIN 6.1 gm/dl (6.4-8.2)
[2017-07-21] MEDS: INSULIN ASPART 100 UNITS/ML 3 ML PEN SC SCH ×4 (08:52→20:51)
[2017-07-21] MEDS: CEFEPIME IV 2,000 MG in SYRINGE 7.5 ML IV SCH (08:53)
[2017-07-21 10:27] LABS: CREATININE 1.05 mg/dl (0.60-1.20)
--- NOTE | 2017-07-21 10:56 | Cardiology Follow-Up ---
Subjective General Date of Service: Jul 21, 2017. Chief Complaint: Abnormal LFT's Pt evaluation today including: conversation w/ patient, physical exam, chart review, lab review, review of studies, review of inpatient medication list History of Present Illness Patient seen and examined. Complaints today include increased fluid retention. She has been off Bumex and spironolactone since admission due to reported clinical dehydration on presentation. No chest pain. No palpitations. Stable dyspnea. Patient questions what caused the confusion. She remains asymptomatic in regards to UTI symptoms. She would like to proceed with an MRI of the brain. Simvastatin discontinued. Amiodarone reduced to 200 mg per day. July 20, 2017 Resting Echo Interpretation Summary ([facility] , Dr. Arredondo): The study was technically difficult. Ejection Fraction = 55-60 % The right ventricle is borderline dilated. The right ventricular systolic function is normal. Aortic valve sclerosis mild, without significant aortic valvular stenosis. There is mild to moderate mitral annular calcification. There is mild mitral regurgitation. There is mild tricuspid regurgitation. Diastolic dysfunction, Grade II (pseudonormalization pattern). Allergies Coded Allergies: Penicillins (Verified Allergy, Intermediate, URTICARIA; PER PT, CAN TAKE AMOXICILLIN, 04/07/17) Erythromycin (Verified Adverse Reaction, Mild, GI UPSET, 04/07/17) Social History Smoking Status: Never Smoker Hx Tobacco Use In Past Year?: No Hx Alcohol Use - Type And Amou: Yes (occasional mixed drink or glass of wine) Hx Substance Use - Type And Am: No Problem List Medical Problems: (1) Acute congestive heart failure Status: Acute (2) CVA (cerebral vascular accident) Status: Acute (3) Dehydration Status: Acute (4) Heme positive stool Status: Acute (5) Hypokalemia Status: Acute (6) Hypomagnesemia Status: Acute (7) UTI (urinary tract infection) Status: Acute Review of Systems Respiratory: No cough, No sputum, No wheezing, No shortness of breath, No dyspnea on exertion, No dyspnea at rest, No hemoptysis Cardiac: No chest pain, No orthopnea, No PND, No edema, No claudication, No palpitations Physical Exam Vital Signs Last Vital Signs Documentation Date Time Temp Pulse Resp B/P (MAP) Pulse Ox O2 Delivery O2 Flow Rate FiO2 07/21/17 08:45 Room Air 07/21/17 07:32 36.5 57 20 184/82 (216) 05 Physical Exam Constitutional: General Apperance: obese Level of Distress: NAD Psychiatric: Mental Status: active & alert Orientation: to time, to place, to person Memory: recent memory normal, remote memory normal Head: normocephalic, atraumatic Eyes: Pupils: PERRLA Neck: pertinent finding (No overt JVD) Lungs: Auscultation: no wheezing, no rales/crackles, no rhonchi, deminished air movement Cardiovascular: Heart Auscultation: RRR, normal S1, normal S2, no rubs, II/ KATHI Peripheral Pulses: Dorsalis Pedis Pulse: decreased on the left, decreased on the right Abdomen: Bowel Sounds: normal Inspection & Palpation: soft Extremities: no cyanosis, no clubbing, edema Neurologic: Cranial Nerves: grossly intact Assessment and Plan Assessment and Plan 67-year-old female seen in cardiology consultation due to abnormal LFTs, recommendations regarding amiodarone therapy. Patient admitted with confusion, asymptomatic UTI, intermittent headaches, electrolyte abnormalities. Head CT on presentation revealed nonspecific white matter hypodensities and suspected age- indeterminate infarct in the region of the left lentiform nucleus and external capsule. Abnormal LFTs appear to be multifactorial in etiology. Simvastatin discontinued. Amiodarone decreased to 200 mg/day. Liver ultrasound revealed diffusely hypoechogenic liver parenchyma most concerning for diffuse parenchymal edema in the setting of hepatitis. GI consultation requested. RECOMMENDATIONS: Resume Bumex 1 mg per day Resume spironolactone 25 mg per day. Continue Metoprolol at 100 mg twice per day, hopefully preventing recurrent atrial fibrillation. Continue amiodarone at 200 mg/day for now, pending GI evaluation. Consult GI, RE: abnormal LFTs, abnormal liver ultrasound, chronic (~1 year) amiodarone therapy MRI of the brain with and without contrast, RE: Confusion, abnormal head CT ( see above) Cardiology Attending Physician: Patient seen and examined at the bedside. MRI reviewed demonstrating "Punctate 2 mm focus of restricted water diffusion within the left frontal lobe, most consistent with an tiny acute/subacute infarct". No recurrent confusion or word finding issues. Patient offers no complaints. Gastroenterology input appreciated. PE: VSS. Gen: NAD, AAO x 3. Obese. Heart: Regular, normal S1-S2, no murmur. Lungs: Clear bilateral, no rales rhonchi or wheeze. Extremities: +1 bilateral pedal edema stasis changes. A/P: Agree with above PA-C history, physical exam, assessment and plan. Carotid duplex and neural consultation ordered given result of brain MRI. I will also place amiodarone on hold per gastroenterology recommendations pending further workup. Jah Arredondo DO, [facility] Laboratory Results Last 24 Hours Test 07/20/17 11:29 07/20/17 16:42 07/20/17 19:37 07/21/17 06:54 Bedside Glucose 222 mg/dl 135 mg/dl 214 mg/dl Prothrombin Time 15.1 SECONDS Prothromb Time International Ratio 1.4 Total Bilirubin 0.5 mg/dl Direct Bilirubin 0.2 mg/dl Aspartate Amino Transf (AST/SGOT) 233 U/L Alanine Aminotransferase (ALT/SGPT) 264 U/L Alkaline Phosphatase 139 U/L Total Protein 6.1 gm/dl Albumin 2.3 gm/dl Test 07/21/17 07:58 07/21/17 09:51 Bedside Glucose 173 mg/dl Sodium Level 134 mmol/L Potassium Level 4.0 mmol/L Chloride Level 101 mmol/L Carbon Dioxide Level 26 mmol/L Anion Gap 7.0 mmol/L Blood Urea Nitrogen 21 mg/dl Creatinine 1.05 mg/dl Est Creatinine Clear Calc Drug Dose 68.6 ml/min Estimated GFR () 63.6 Estimated GFR (Non- 54.9 BUN/Creatinine Ratio 20.1 Random Glucose 251 mg/dl
[2017-07-21] MEDS: BUMETANIDE 1 MG TAB PO SCH (11:42)
[2017-07-21] MEDS: SPIRONOLACTONE 25 MG TAB PO SCH (11:43)
--- NOTE | 2017-07-21 11:54 | Gastrointestinal Consultation ---
Gastrointestinal Consultation Date of Consultation: Jul 21, 2017 Attending Physician: Marie Cai Consulting Physician: Gigner Corral Reason for Consultation: Elevated LFT History of Present Illness Patient is a 67 year old female currently seen for elevated LFTs. She has hx of HTN, DM II, EDYTA, Hyperlipidemia, Gout, Hypothyroidism, Afib on Coumadin and Amiodarone. 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 Ammonia level normal. Head CT showed nonspecific white matter densities w age indeterminate infarcts on L lentiform nucleus and external capsule. Going to be followed up with brain MRI. Did test negative for the flu. CXR w/o acute respiratory processes. She was on Bumex and Spironolactone which were held on admission but plan to restart per Cardiology. In her workup it was noted that LFTs are abnormal. At baseline has mildly elevated transaminases in 60s. Currently it showed Tbili 0.5, AST/ALT of 230s/260s, Alk phos 130. Liver u/s obtained showed diffuse hypoechogenic parenchyma and edema suspicious for hepatitis. Pt denies any ETOH, illicit drug abuses. Hx of blood transfusions 3 yrs ago. No tattoos/body piercing. She also denies any family hx of autoimmune/hereditary liver diseases. Hx of stomach ulcer suspected due to NSAIDs use (EGD done in 2012) and once tested Hpylori Ag positive. She denies APAP uses but still using Aleve at times. Denies any hx of jaundice, or prior confusion symptoms until recently. Denies any increased abd distension or hx of ascites build up. Leg swelling as noted above. There was a suspicion that her meds may be causing her LFT elevation - statin stopped, Amiodarone reduced from 200mg BID to daily dosing. Cardiology following. She had last took antibx for L leg wound in April - Doxycycline. Past Medical/Surgical History Medical Problems: (1) Acute congestive heart failure Status: Acute (2) CVA (cerebral vascular accident) Status: Acute (3) Dehydration Status: Acute (4) Heme positive stool Status: Acute (5) Hypokalemia Status: Acute (6) Hypomagnesemia Status: Acute (7) UTI (urinary tract infection) Status: Acute Past Medical History: See above. Past Surgical History: (1) H/O rotator cuff surgery (2) History of arthroplasty of left knee (3) History of carpal tunnel surgery (4) Status post Mohs surgery Family History Diabetes mellitus FH: CHF (congestive heart failure) GRANDMOTHER Hypertension Social History Smoking Status: Never Smoker Alcohol Use: occasionally Drug Use: none Marital Status: Occupation Status: employed Allergies Coded Allergies: Penicillins (Verified Allergy, Intermediate, URTICARIA; PER PT, CAN TAKE AMOXICILLIN, 04/07/17) Erythromycin (Verified Adverse Reaction, Mild, GI UPSET, 04/07/17) Current Medications Home Meds and Scripts Medications Dose Route/Sig Max Daily Dose Days Date Category Dose Instructions Oxygen Gas 2 Liters NA HS 07/19/17 Reported Vitamin D3 (Cholecalciferol) 1,000 Unit Tab 1,000 Units PO DAILY 07/19/17 Reported Aldactone (Spironolactone) 25 Mg Tab 25 Mg PO DAILY 07/19/17 Reported Zocor (Simvastatin) 10 Mg Tab 10 Mg PO QPM 07/19/17 Reported Jantoven (Warfarin Sodium) 5 Mg Tab 5 Mg PO 4XWK 07/19/17 Reported TAKE 5MG EVERY WEDNESDAY/WEDNESDAY/WEDNESDAY/WEDNESDAY. Lopressor (Metoprolol Tartrate) 100 Mg Tab 100 Mg PO BID 07/19/17 Reported Jantoven (Warfarin Sodium) 7.5 Mg Tab 7.5 Mg PO 3XWK 07/19/17 Reported TAKE 7.5MG EVERY WEDNESDAY/WEDNESDAY/WEDNESDAY. Kp Ferrous Sulfate (Ferrous Sulfate) 325 Mg Tab 325 Mg PO DAILY 07/19/17 Reported Bumex (Bumetanide) 1 Mg Tab 1 Mg PO DAILY 07/19/17 Reported Cordarone (Amiodarone Hcl) 200 Mg Tab 200 Mg PO BID 07/19/17 Reported Levothyroxine Sodium 50 Mcg Tab 50 Mcg PO DAILY 07/19/17 Reported Motrin (Ibuprofen) 400 Mg Tab 400 Mg PO BID 04/07/17 Reported PRN Prandin (Repaglinide) 1 Mg Tab 0.5 Mg PO AC 01/13/17 Reported Zestril (Lisinopril) 40 Mg Tab 40 Mg PO DAILY 01/13/17 Reported Ultram (Tramadol HCl) 50 Mg Tab 2 Tab PO QID PRN 07/19/16 Reported Zyloprim (Allopurinol) 100 Mg Tab 200 Mg PO HS 07/19/16 Reported Prilosec (Omeprazole) 20 Mg Capcr 20 Mg PO DAILY 07/19/16 Reported Multivitamin (Multiple Vitamin) 1 Tab Tab 1 Tab PO DAILY 05/15/12 Reported Review of Systems Constitutional: + weakness, No fever, No chills ENT: + nasal symptoms (congestion) Respiratory: + dyspnea on exertion, No cough Cardiac: No chest pain Abdomen: No pain, No nausea, No vomiting, No diarrhea, No constipation, No GI bleeding Skin: + see HPI (L leg wound) Physical Exam Date Time Temp Pulse Resp B/P (MAP) Pulse Ox O2 Delivery O2 Flow Rate FiO2 07/21/17 08:45 Room Air 07/21/17 07:32 36.5 57 20 184/82 (116) 95 Room Air 07/21/17 00:00 Room Air 07/20/17 22:56 36.7 61 18 165/74 (104) 95 Room Air 07/20/17 16:00 96 Room Air 07/20/17 15:46 36.9 59 18 178/89 (118) 97 Room Air General Appearance: + obese Eyes: normal inspection, PERRL, EOMI Neck: supple, no JVD, trachea midline Respiratory/Chest: lungs clear, no respiratory distress, no accessory muscle use Cardiovascular: regular rate, rhythm, no gallop, no murmur Abdomen: normal bowel sounds, non tender, soft Extremities: + pedal edema Neurologic/Psych: alert, normal mood/affect, oriented x 3 Skin: normal color, no jaundice, no rash Laboratory Results Last 24 Hours Test 07/20/17 16:42 07/20/17 19:37 07/21/17 06:54 07/21/17 07:58 Bedside Glucose 135 mg/dl 214 mg/dl 173 mg/dl Prothrombin Time 15.1 SECONDS Prothromb Time International Ratio 1.4 Total Bilirubin 0.5 mg/dl Direct Bilirubin 0.2 mg/dl Aspartate Amino Transf (AST/SGOT) 233 U/L Alanine Aminotransferase (ALT/SGPT) 264 U/L Alkaline Phosphatase 139 U/L Total Protein 6.1 gm/dl Albumin 2.3 gm/dl Test 07/21/17 09:51 Sodium Level 134 mmol/L Potassium Level 4.0 mmol/L Chloride Level 101 mmol/L Carbon Dioxide Level 26 mmol/L Anion Gap 7.0 mmol/L Blood Urea Nitrogen 21 mg/dl Creatinine 1.05 mg/dl Est Creatinine Clear Calc Drug Dose 68.6 ml/min Estimated GFR () 63.6 Estimated GFR (Non- 54.9 BUN/Creatinine Ratio 20.1 Random Glucose 251 mg/dl Impression Patient is a 67 year old female currently seen for elevated LFT. Unclear etiology at this time but could be drug related ? Amiodarone, viral/acute hepatitis, BRUNSON given morbid obesity and DM II. No s/s of decompensated liver disease. Plan - Obtain serologies to r/o infectious/acute hepatitis, autoimmune, hereditary liver diseases. - Monitor LFTs - Avoid hepatotoxic meds - Will follow along Late entry: I have seen and examined the patient on 07/21 with LATRICE Soto whose note reflects our findings and plan. Suspect elevated LFTs are related to her infection.
[2017-07-21 11:59] LABS: CALCIUM 9.1 mg/dl (8.5-10.1)
[2017-07-21 14:51] LABS: HEP C IGG 13 YRS+OLDER_RFLX NEG (NEG)
[2017-07-21 15:09] VITALS: BP 177/83; PULSE 60; TEMP 36.6; O2SAT 96
[2017-07-21] MEDS ORDERED: GADAVIST IV PRN (15:45)
--- NOTE | 2017-07-21 15:57 | DIAGNOSTIC IMAGING REPORT ---
MRI OF THE BRAIN WITHOUT AND WITH IV CONTRAST CLINICAL HISTORY: Confusion, headaches, abnormal head CT. COMPARISON STUDY: Noncontrast head CT dated 07/19/2017 TECHNIQUE: MRI of the brain was performed from the vertex to the skull base utilizing various T1 and T2 weighted sequences. Following the IV administration of 14 mL of Gadavist contrast, additional enhanced images were obtained. FINDINGS: Sagittal T1, axial diffusion, proton density and T2 weighted axial, coronal FLAIR, and pre and post axial T1-weighted images were acquired. These were supplemented with post gadolinium coronal T1 weighted images. No intra or extra-axial mass lesions are visualized. There is a punctate 2 mm focus of restricted water diffusion within the left frontal lobe, most consistent with a tiny acute/subacute infarct. There is no evidence of ventricular dilatation. Proton density T2-weighted and FLAIR images reveal very prominent perivascular spaces. There is scattered foci of increased T2 and FLAIR signal within the white matter, likely on a small vessel basis. There are no abnormal flow voids. There are no pathologically enhancing lesions. There are no findings to indicate neoplasm. IMPRESSION: 1. Punctate 2 mm focus of restricted water diffusion within the left frontal lobe, most consistent with an tiny acute/subacute infarct 2. Scattered foci of increased T2 and FLAIR signal within the white matter, likely on a small vessel basis. 3. Very prominent perivascular spaces, a finding which is felt to explain the CT abnormalities 4. No evidence of neoplasm Electronically signed by: Nba Hernandez M.D. 07/21/2017 3:55 PM Dictated Date/Time: 07/21/2017 3:49 PM
[2017-07-21] MEDS: WARFARIN SOD 7.5 MG TAB PO SCH (16:10)
--- NOTE | 2017-07-21 18:44 | Progress Note ---
Medicine Progress Note Date & Time of Visit: Jul 21, 2017 at 18:43. Subjective Denies any new complaints; tolerating PO without difficulty. Has chronic pain but states it is no worse than usual. No overnight events noted. Objective Last 8 Hrs Date Time Temp Pulse Resp B/P (MAP) Pulse Ox O2 Delivery O2 Flow Rate FiO2 07/21/17 16:45 Room Air 07/21/17 15:09 36.6 60 20 177/83 (114) 96 Room Air Physical Exam: GENERAL: Patient is in no acute distress. HEENT: No acute trauma, normocephalic, mucous membranes moist, no nasal congestion, no scleral icterus. NECK: No stridor, trachea is midline. LUNGS: Diminished breath sounds bilaterally, no wheeze, no rhonchi, breath sounds equal. HEART: Without murmurs gallops or rubs, regular rate and rhythm. ABDOMEN: Soft, nontender, bowel sounds positive, obese EXTREMITIES: No cyanosis or edema, intact range of motion of all the joints without pain or difficulty, no signs for acute trauma. NEUROLOGIC: Oriented x 3, no acute motor or sensory deficits, no focal weakness. SKIN: No rash, no jaundice, no diaphoresis. Laboratory Results: Last 24 Hours Test 07/20/17 19:37 07/21/17 06:54 07/21/17 07:58 07/21/17 09:51 Bedside Glucose 214 mg/dl 173 mg/dl Prothrombin Time 15.1 SECONDS Prothromb Time International Ratio 1.4 Total Bilirubin 0.5 mg/dl Direct Bilirubin 0.2 mg/dl Aspartate Amino Transf (AST/SGOT) 233 U/L Alanine Aminotransferase (ALT/SGPT) 264 U/L Alkaline Phosphatase 139 U/L Total Protein 6.1 gm/dl Albumin 2.3 gm/dl Sodium Level 134 mmol/L Potassium Level 4.0 mmol/L Chloride Level 101 mmol/L Carbon Dioxide Level 26 mmol/L Anion Gap 7.0 mmol/L Blood Urea Nitrogen 21 mg/dl Creatinine 1.05 mg/dl Est Creatinine Clear Calc Drug Dose 68.6 ml/min Estimated GFR () 63.6 Estimated GFR (Non- 54.9 BUN/Creatinine Ratio 20.1 Random Glucose 251 mg/dl Calcium Level 9.1 mg/dl Iron Level 48 mcg/dl Total Iron Binding Capacity 256 mcg/dl Transferrin 175 mg/dl Transferrin % Saturation 19 % Ferritin 292.9 ng/ml Test 07/21/17 11:27 07/21/17 12:30 Bedside Glucose 262 mg/dl Hepatitis B Surface Antigen NEG Hepatitis C Antibody NEG Assessment & Plan AMS/CONFUSION: -possibly related to a tiny CVA seen on MRI -patient reports intermittent confusion 2 days before admission with intermittent headaches -since admission the patient has been alert and oriented and at baseline -CT head: 1. Nonspecific white matter hypodensities. While likely on a small vessel basis, one cannot with certainty exclude an underlying neoplasm. If further evaluation is clinically indicated, an MRI without and with contrast would be considered the test of choice. 2. Suspected age-indeterminate infarct in the region of the left lentiform nucleus and external capsule -differential includes metabolic encephalopathy, stroke, hypoglycemic episodes. Upon ER arrival glucose 69 increased to 156 -MRI brain: tiny left frontal acute/subacute infarct; no neoplasm -check MRA neck -Neuro consult -start daily aspirin -resume statin when LFTs/hepatitis improves -Ammonia level normal HYPOMAGNESIA: -replete and recheck HYPOKALEMIA: -replete and recheck -Replace and monitor electrolytes ACUTE TRANSAMINITIS: -denies any GI symptoms -holding statin, amiodarone dose lowered -Monitor liver functions -RUQ US showed diffuse parenchymal edema in the setting of hepatitis. PAROXYSMAL ATRIAL FIBRILLATION: -on amiodarone, warfarin, metoprolol. -in sinus rhythm. -INR subtherapeutic 1.4 -on decreased dose of amiodarone UTI: -culture grew E coli; abx switched to PO cefdinir for an uncomplicated UTI CHRONIC LOWER EXTREMITY WOUND: -patient following with wound clinic and reports improvement of wound; recently tx with outpatient abx HERRERA: -reports increasing shortness of breath over the past 1-2 weeks as well as chronic lower extremity edema -CXR: Stable cardiomyopathy and stable right hilar prominence. -afebrile, no leukocytosis, 95-97% on room air. -patient on Bumex, Spironolactone which were held initially have now been restarted HYPERTENSION: -continued on lisinopril, metoprolol DM TYPE II: -HbA1c: 6.2 on 04/18 -Prandin held -correction scale insulin while in hospital NOCTURNAL HYPOXIA/EDYTA: -was on 2 L NC at bedtime, recent sleep study sleep study revealed EDYTA, CPAP set up is pending -Continue 2 L oxygen NC HS for now HYPOTHYROIDISM: -TSH: 1.8 -Continue levothyroxine HYPERLIPIDEMIA: -was on statin, held statin due to acutely elevated lfts GOUT: -continue allopurinol CHRONIC ANEMIA: -Hgb: 11.5. ~baseline. -No active bleeding -on iron supplement which is continued -Monitor H&H HISTORY OF GASTRIC ULCER: -continue PPI -discussed with the patient her chronic NSAID use and the cardiovascular and GI effects, patient understands the risk and prefers to take NSAIDs as they have helped her Current Inpatient Medications: Current Inpatient Medications Medications (Trade) Dose Ordered Sig/Scott Route Start Time Stop Time Status Last Admin Dose Admin Acetaminophen (Tylenol Tab) 325 mg Q6H PRN PO 07/20/17 00:45 08/19/17 00:44 Insulin Aspart (novoLOG ASPART) SLIDING SCALE If C... ACHS SC 07/20/17 06:30 08/19/17 06:59 07/21/17 11:44 4 UNITS Glucose (Glucose 40% Gel) 15-30 GRAMS 15 GRAMS... UD PRN PO 07/20/17 00:45 08/19/17 00:44 Glucose (Glucose Chew Tab) 4-8 Tablets 4 Tabl... UD PRN PO 07/20/17 00:45 08/19/17 00:44 Dextrose (Dextrose 50% 50ML Syringe) 25-50ML OF 50% DW IV FOR... UD PRN IV 07/20/17 00:45 08/19/17 00:44 Glucagon (Glucagon Inj) 1 mg UD PRN SQ 07/20/17 00:45 08/19/17 00:44 Prochlorperazine Edisylate 5 mg/ Syringe 5 ml @ 5 mls/min Q6H PRN IV 07/20/17 00:45 08/19/17 00:44 Tramadol HCl (Ultram Tab) not relieved by tylenol @ Q6H PRN PO 07/20/17 00:45 08/19/17 00:44 07/20/17 19:54 50 MG Allopurinol (Zyloprim Tab) 200 mg HS PO 07/20/17 21:00 08/19/17 20:59 07/20/17 19:56 200 MG Levothyroxine Sodium (Synthroid Tab) 50 mcg DAILYBB PO 07/20/17 06:30 08/19/17 06:29 07/21/17 06:02 50 MCG Lisinopril (Zestril Tab) 40 mg DAILY PO 07/20/17 08:00 08/19/17 08:59 07/21/17 07:15 40 MG Metoprolol Tartrate (Lopressor Tab) 100 mg BID PO 07/20/17 08:00 08/19/17 08:59 07/21/17 07:15 100 MG Multivitamins (Multivitamin Tab) 1 tab DAILY PO 07/20/17 08:00 08/19/17 08:59 07/21/17 07:15 1 TAB Ferrous Sulfate (Feosol Tab) 325 mg DAILY PO 07/20/17 08:00 08/19/17 08:59 07/21/17 07:15 325 MG Pantoprazole Sodium (Protonix Tab) 40 mg QAM PO 07/20/17 08:00 08/19/17 07:59 07/21/17 07:15 40 MG Warfarin Sodium (Coumadin Tab) 7.5 mg DAILY@16 PO 07/20/17 16:00 08/19/17 15:59 07/21/17 16:10 7.5 MG Morphine Sulfate (MoRPHine SULFATE INJ) 4 mg Q6H PRN IV 07/20/17 00:45 08/03/17 00:44 Amiodarone HCl (Cordarone Tab) 200 mg DAILY PO 07/20/17 08:00 08/19/17 08:59 Future Hold 07/21/17 07:16 200 MG Miscellaneous (Iv Fluids Completed) 1 ea PRN PRN N/A 07/20/17 05:00 07/20/18 04:59 Cholecalciferol (Vitamin D Tab) 1,000 inter.unit DAILY PO 07/21/17 08:00 08/20/17 07:59 07/21/17 07:15 1,000 INTER.UNIT Ibuprofen (Advil Tab) 400 mg BID PO 07/20/17 20:00 08/19/17 19:59 07/21/17 07:16 400 MG Cefdinir (Omnicef Cap) 300 mg BID PO 07/21/17 20:00 3/30/18 08:59 Bumetanide (Bumex Tab) 1 mg QAM PO 07/21/17 11:00 08/20/17 10:59 07/21/17 11:42 1 MG Spironolactone (Aldactone Tab) 25 mg QAM PO 07/21/17 11:00 08/20/17 10:59 07/21/17 11:43 25 MG Gadobutrol (Gadavist) 14 mmol UD PRN IV 07/21/17 15:45 07/25/17 15:44
--- NOTE | 2017-07-21 20:41 | DIAGNOSTIC IMAGING REPORT ---
CAROTID DOPPLER NECK ART CLINICAL HISTORY: 67 years-old Female with CVA. Acute frontal lobe infarction COMPARISON: Brain MRI 07/28/2017 TECHNIQUE: Multiple real time sonographic images of the carotid bifurcations were obtained assessing parker scale, color Doppler and spectral wave form appearance FINDINGS: RIGHT INTERNAL CAROTID: The peak systolic velocity measured 98 cm/sec. The end diastolic velocity measured 18 cm/sec. The ICA to CCA ratio measured 1.2 which correlates with a stenosis of 0-50%. Mild atherosclerosis about the right carotid bulb. LEFT INTERNAL CAROTID: The peak systolic velocity measured 57 cm/sec. The end diastolic velocity measured 12 cm/sec. The ICA to CCA ratio measured 0.9 which correlates with a stenosis of 0-50%. Mild atherosclerosis of the left carotid bulb. There is normal antegrade vertebral flow bilaterally. IMPRESSION: 1. No hemodynamically significant stenosis or significant atherosclerotic plaquing. 2. Normal antegrade vertebral flow bilaterally. The above report was generated using voice recognition software. It may contain grammatical, syntax or spelling errors. Electronically signed by: Gio Zimmerman M.D. 07/21/2017 8:39 PM Dictated Date/Time: 07/21/2017 8:37 PM
[2017-07-21] MEDS: ALLOPURINOL 100 MG TAB PO SCH (20:42)
[2017-07-21] MEDS: CEFDINIR 300 MG CAP PO SCH (20:44)
[2017-07-21 23:32] VITALS: BP 175/74; PULSE 67; TEMP 36.6; O2SAT 96
[2017-07-22] MEDS: LEVOTHYROXINE 50 MCG TAB PO SCH (05:56)
[2017-07-22 06:57] LABS: INR 1.6 (0.9-1.1)
[2017-07-22] MEDS: METOPROLOL TARTRATE 100 MG TAB PO SCH ×2 (07:21→20:24)
[2017-07-22] MEDS: PANTOprazole SOD 40 MG TAB PO SCH (07:21)
[2017-07-22] MEDS: CEFDINIR 300 MG CAP PO SCH ×2 (07:21→20:00)
[2017-07-22] MEDS: LISINOPRIL 40 MG TAB PO SCH (07:21)
[2017-07-22] MEDS: SPIRONOLACTONE 25 MG TAB PO SCH (07:21)
[2017-07-22] MEDS: MULTIVITAMIN TAB PO SCH (07:21)
[2017-07-22] MEDS: CHOLECALCIFEROL 1000 INTER.UNIT TAB PO SCH (07:21)
[2017-07-22] MEDS: BUMETANIDE 1 MG TAB PO SCH (07:22)
[2017-07-22] MEDS: FERROUS SULFATE 325 MG TAB PO SCH (07:22)
[2017-07-22] MEDS: IBUPROFEN 200 MG TAB PO SCH ×2 (07:22→20:25)
[2017-07-22] MEDS: INSULIN ASPART 100 UNITS/ML 3 ML PEN SC SCH ×4 (07:52→21:42)
[2017-07-22 07:54] VITALS: BP 174/76; PULSE 63; TEMP 36.6; O2SAT 95
[2017-07-22 08:05] LABS: HEMATOCRIT 34.6 % (37-47); HEMOGLOBIN 11.3 g/dL (12.0-16.0); MEAN CELL VOLUME 84.8 fL (80-100); MEAN CORPUSCULAR HEMOGLOBIN 27.7 pg (25-34); MEAN CORPUSCULAR HGB CONC 32.7 g/dl (32-36); MEAN PLATELET VOLUME 10.4 fL (7.4-10.4); PLATELET COUNT 205 K/uL (130-400); RED CELL DISTRIBUTION WIDTH CV 15.6 % (11.5-14.5); RED CELL DISTRIBUTION WIDTH SD 48.7 fL (36.4-46.3); WHITE BLOOD COUNT 8.45 K/uL (4.8-10.8)
[2017-07-22 08:17] LABS: ALBUMIN 2.3 gm/dl (3.4-5.0); ALKALINE PHOSPHATASE 138 U/L (45-117); ALT/SGPT 314 U/L (12-78); BLOOD UREA NITROGEN 20 mg/dl (7-18); CALCIUM 8.5 mg/dl (8.5-10.1); CARBON DIOXIDE 29 mmol/L (21-32); CREATININE 0.96 mg/dl (0.60-1.20); GLUCOSE 167 mg/dl (70-99); SODIUM 137 mmol/L (136-145); TOTAL PROTEIN 6.4 gm/dl (6.4-8.2)
[2017-07-22 08:57] LABS: POTASSIUM 4.2 mmol/L (3.5-5.1)
[2017-07-22] MEDS: ASPIRIN 81 MG ECTAB PO SCH (09:00)
--- NOTE | 2017-07-22 10:02 | Cardiology Follow-Up ---
Subjective General Date of Service: Jul 22, 2017. Chief Complaint: Abnormal LFT's Pt evaluation today including: conversation w/ patient, physical exam, chart review, lab review, review of studies, review of inpatient medication list History of Present Illness Patient seen and examined. No chest pain. No palpitations. Stable dyspnea. Improved fluid retention with resumption of Bumex and Spironolactone. GI recommendations were to avoid hepatotoxic medications thus amiodarone was placed on hold; simvastatin previously held. July 21, 2017 MRI revealed a punctate 2 mm focus of restricted water diffusion within the left frontal lobe (most consistent with an tiny acute/subacute infarct), scattered foci of increased T2 and FLAIR signal within the white matter (likely on a small vessel basis), and very prominent perivascular spaces (a finding which is felt to explain the CT abnormalities). No evidence of neoplasm. July 21, 2017 Carotid duplex showed no hemodynamically significant stenosis or significant atherosclerotic plaquing. Normal antegrade vertebral flow bilaterally Neurology evaluation pending. INR subtherapeutic. Blood pressure remains elevated. Allergies Coded Allergies: Penicillins (Verified Allergy, Intermediate, URTICARIA; PER PT, CAN TAKE AMOXICILLIN, 04/07/17) Erythromycin (Verified Adverse Reaction, Mild, GI UPSET, 04/07/17) Social History Smoking Status: Never Smoker Hx Tobacco Use In Past Year?: No Hx Alcohol Use - Type And Amou: Yes (occasional mixed drink or glass of wine) Hx Substance Use - Type And Am: No Problem List Medical Problems: (1) Acute congestive heart failure Status: Acute (2) CVA (cerebral vascular accident) Status: Acute (3) Dehydration Status: Acute (4) Heme positive stool Status: Acute (5) Hypokalemia Status: Acute (6) Hypomagnesemia Status: Acute (7) UTI (urinary tract infection) Status: Acute Review of Systems Respiratory: No cough, No sputum, No wheezing, No shortness of breath, No dyspnea at rest Cardiac: + edema, No chest pain, No orthopnea, No PND, No palpitations Physical Exam Vital Signs Last Vital Signs Documentation Date Time Temp Pulse Resp B/P (MAP) Pulse Ox O2 Delivery O2 Flow Rate FiO2 07/22/17 07:54 36.6 63 18 174/76 (108) 95 Room Air Physical Exam Constitutional: General Apperance: obese Level of Distress: NAD Psychiatric: Mental Status: active & alert Orientation: to time, to place, to person Memory: recent memory normal, remote memory normal Head: normocephalic, atraumatic Eyes: Pupils: PERRLA Neck: pertinent finding (No overt JVD) Lungs: Auscultation: no wheezing, no rales/crackles, no rhonchi, deminished air movement Cardiovascular: Heart Auscultation: RRR, normal S1, normal S2, no rubs, II/ KATHI Peripheral Pulses: Dorsalis Pedis Pulse: decreased on the left, decreased on the right Abdomen: Bowel Sounds: normal Inspection & Palpation: soft Extremities: no cyanosis, no clubbing, edema Neurologic: Cranial Nerves: grossly intact Assessment and Plan Assessment and Plan 67-year-old female admitted with confusion (secondary to a CVA), asymptomatic UTI, multiple electrolyte abnormalities. Patient seen in cardiology consultation due to abnormal LFTs. Simvastatin discontinued. Amiodarone on hold. GI workup in process. RECOMMENDATIONS: Add Hydralazine for additional blood pressure control. Continue Metoprolol at 100 mg twice per day, Lisinopril 40 mg/day, Bumex 1 mg per day, and spironolactone at 25 mg per day. Await Neurological evaluation/recommendations. Eventual outpatient follow-up with Dr. Foster. Cardiology Attending Physician: Patient seen and examined at the bedside. MRI reviewed demonstrating "Punctate 2 mm focus of restricted water diffusion within the left frontal lobe, most consistent with an tiny acute/subacute infarct". No recurrent confusion or word finding issues. Patient offers no complaints. Gastroenterology input appreciated. Awaiting neurology input. PE: VSS. Gen: NAD, AAO x 3. Obese. Heart: Regular, normal S1-S2, no murmur. Lungs: Clear bilateral, no rales rhonchi or wheeze. Extremities: +1 bilateral pedal edema stasis changes. A/P: Agree with above PA-C history, physical exam, assessment and plan. Amiodarone will remain on hold. Continue metoprolol, lisinopril, Bumex, and Aldactone. Await neurology evaluation/recommendations. Patient may require bridging therapy as INR remains subtherapeutic. Jah Arredondo DO, [facility] Laboratory Results Last 24 Hours Test 07/21/17 11:27 07/21/17 12:30 07/21/17 16:56 07/21/17 20:33 Bedside Glucose 262 mg/dl 139 mg/dl 223 mg/dl Hepatitis B Surface Antigen NEG Hepatitis C Antibody NEG Test 07/22/17 06:29 07/22/17 06:30 07/22/17 08:23 White Blood Count 8.45 K/uL Red Blood Count 4.08 M/uL Hemoglobin 11.3 g/dL Hematocrit 34.6 % Mean Corpuscular Volume 84.8 fL Mean Corpuscular Hemoglobin 27.7 pg Mean Corpuscular Hemoglobin Concent 32.7 g/dl RDW Standard Deviation 48.7 fL RDW Coefficient of Variation 15.6 % Platelet Count 205 K/uL Mean Platelet Volume 10.4 fL Sodium Level 137 mmol/L Potassium Level mmol/L 4.2 mmol/L Chloride Level 103 mmol/L Carbon Dioxide Level 29 mmol/L Anion Gap 5.0 mmol/L Blood Urea Nitrogen 20 mg/dl Creatinine 0.96 mg/dl Est Creatinine Clear Calc Drug Dose 75.0 ml/min Estimated GFR () 70.9 Estimated GFR (Non- 61.2 BUN/Creatinine Ratio 20.5 Random Glucose 167 mg/dl Calcium Level 8.5 mg/dl Total Bilirubin 0.6 mg/dl Aspartate Amino Transf (AST/SGOT) U/L Alanine Aminotransferase (ALT/SGPT) 314 U/L Alkaline Phosphatase 138 U/L Total Protein 6.4 gm/dl Albumin 2.3 gm/dl Globulin 4.1 gm/dl Albumin/Globulin Ratio 0.6 Prothrombin Time 16.2 SECONDS Prothromb Time International Ratio 1.6 Chemistry Specimen Hemolysis
--- NOTE | 2017-07-22 12:24 | Gastroenterology Progress Note ---
Progress Note Date of Service: Jul 22, 2017 Subjective Pt evaluation today including: conversation w/ patient, physical exam, chart review, lab review, review of inpatient medication list MRI brain showed tiny frontal lobe acute/subacute infarct. Pt feels well today. She is waiting to see Neurology. She denies any n/v, abd pain. LFTs about same. Serologies pending, but negative so far for Hep B and C. Review of Systems Constitutional: No fever, No chills Respiratory: No cough, No shortness of breath Cardiac: No chest pain Abdomen: No pain, No nausea, No vomiting Medications Current Inpatient Medications Medications (Trade) Dose Ordered Sig/Scott Route Start Time Stop Time Status Last Admin Dose Admin Acetaminophen (Tylenol Tab) 325 mg Q6H PRN PO 07/20/17 00:45 08/19/17 00:44 Insulin Aspart (novoLOG ASPART) SLIDING SCALE If C... ACHS SC 07/20/17 06:30 08/19/17 06:59 07/22/17 12:06 2 UNITS Glucose (Glucose 40% Gel) 15-30 GRAMS 15 GRAMS... UD PRN PO 07/20/17 00:45 08/19/17 00:44 Glucose (Glucose Chew Tab) 4-8 Tablets 4 Tabl... UD PRN PO 07/20/17 00:45 08/19/17 00:44 Dextrose (Dextrose 50% 50ML Syringe) 25-50ML OF 50% DW IV FOR... UD PRN IV 07/20/17 00:45 08/19/17 00:44 Glucagon (Glucagon Inj) 1 mg UD PRN SQ 07/20/17 00:45 08/19/17 00:44 Prochlorperazine Edisylate 5 mg/ Syringe 5 ml @ 5 mls/min Q6H PRN IV 07/20/17 00:45 08/19/17 00:44 Tramadol HCl (Ultram Tab) not relieved by tylenol @ Q6H PRN PO 07/20/17 00:45 08/19/17 00:44 07/20/17 19:54 50 MG Allopurinol (Zyloprim Tab) 200 mg HS PO 07/20/17 21:00 08/19/17 20:59 07/21/17 20:42 200 MG Levothyroxine Sodium (Synthroid Tab) 50 mcg DAILYBB PO 07/20/17 06:30 08/19/17 06:29 07/22/17 05:56 50 MCG Lisinopril (Zestril Tab) 40 mg DAILY PO 07/20/17 08:00 08/19/17 08:59 07/22/17 07:21 40 MG Metoprolol Tartrate (Lopressor Tab) 100 mg BID PO 07/20/17 08:00 08/19/17 08:59 07/22/17 07:21 100 MG Multivitamins (Multivitamin Tab) 1 tab DAILY PO 07/20/17 08:00 08/19/17 08:59 07/22/17 07:21 1 TAB Ferrous Sulfate (Feosol Tab) 325 mg DAILY PO 07/20/17 08:00 08/19/17 08:59 07/22/17 07:22 325 MG Pantoprazole Sodium (Protonix Tab) 40 mg QAM PO 07/20/17 08:00 08/19/17 07:59 07/22/17 07:21 40 MG Warfarin Sodium (Coumadin Tab) 7.5 mg DAILY@16 PO 07/20/17 16:00 08/19/17 15:59 07/21/17 16:10 7.5 MG Morphine Sulfate (MoRPHine SULFATE INJ) 4 mg Q6H PRN IV 07/20/17 00:45 08/03/17 00:44 Amiodarone HCl (Cordarone Tab) 200 mg DAILY PO 07/20/17 08:00 08/19/17 08:59 Future Hold 07/21/17 07:16 200 MG Miscellaneous (Iv Fluids Completed) 1 ea PRN PRN N/A 07/20/17 05:00 07/20/18 04:59 Cholecalciferol (Vitamin D Tab) 1,000 inter.unit DAILY PO 07/21/17 08:00 08/20/17 07:59 07/22/17 07:21 1,000 INTER.UNIT Ibuprofen (Advil Tab) 400 mg BID PO 07/20/17 20:00 08/19/17 19:59 07/22/17 07:22 400 MG Cefdinir (Omnicef Cap) 300 mg BID PO 07/21/17 20:00 07/30/17 08:59 07/22/17 07:21 300 MG Bumetanide (Bumex Tab) 1 mg QAM PO 07/21/17 11:00 08/20/17 10:59 07/22/17 07:22 1 MG Spironolactone (Aldactone Tab) 25 mg QAM PO 07/21/17 11:00 08/20/17 10:59 07/22/17 07:21 25 MG Gadobutrol (Gadavist) 14 mmol UD PRN IV 07/21/17 15:45 07/25/17 15:44 Aspirin (Ecotrin Tab) 81 mg QAM PO 07/22/17 09:00 08/21/17 08:59 07/22/17 09:00 81 MG Hydralazine HCl (Apresoline Tab) 10 mg TID PO 07/22/17 14:00 08/21/17 13:59 Objective Vital Signs Date Time Temp Pulse Resp B/P (MAP) Pulse Ox O2 Delivery O2 Flow Rate FiO2 07/22/17 08:45 Room Air 07/22/17 07:54 36.6 63 18 174/76 (108) 95 Room Air 07/22/17 00:00 Room Air 07/21/17 23:32 36.6 67 20 175/74 (107) 96 Room Air 07/21/17 20:00 Room Air 07/21/17 16:45 Room Air 07/21/17 15:09 36.6 60 20 177/83 (114) 96 Room Air Physical Exam General Appearance: no apparent distress, + obese Eyes: normal inspection, PERRL, EOMI Neck: supple, no JVD, trachea midline Respiratory/Chest: normal breath sounds, no respiratory distress, no accessory muscle use Cardiovascular: regular rate, rhythm, no gallop, no murmur Abdomen: normal bowel sounds, non tender, soft Extremities: normal inspection, no pedal edema, no calf tenderness Neurologic/Psych: alert, normal mood/affect, oriented x 3 Skin: normal color, no jaundice, no rash Laboratory Results Last 24 Hours Test 07/21/17 12:30 07/21/17 16:56 07/21/17 20:33 07/22/17 06:29 Hepatitis B Surface Antigen NEG Hepatitis C Antibody NEG Bedside Glucose 139 mg/dl 223 mg/dl White Blood Count 8.45 K/uL Red Blood Count 4.08 M/uL Hemoglobin 11.3 g/dL Hematocrit 34.6 % Mean Corpuscular Volume 84.8 fL Mean Corpuscular Hemoglobin 27.7 pg Mean Corpuscular Hemoglobin Concent 32.7 g/dl RDW Standard Deviation 48.7 fL RDW Coefficient of Variation 15.6 % Platelet Count 205 K/uL Mean Platelet Volume 10.4 fL Sodium Level 137 mmol/L Potassium Level mmol/L Chloride Level 103 mmol/L Carbon Dioxide Level 29 mmol/L Anion Gap 5.0 mmol/L Blood Urea Nitrogen 20 mg/dl Creatinine 0.96 mg/dl Est Creatinine Clear Calc Drug Dose 75.0 ml/min Estimated GFR () 70.9 Estimated GFR (Non- 61.2 BUN/Creatinine Ratio 20.5 Random Glucose 167 mg/dl Calcium Level 8.5 mg/dl Total Bilirubin 0.6 mg/dl Aspartate Amino Transf (AST/SGOT) U/L Alanine Aminotransferase (ALT/SGPT) 314 U/L Alkaline Phosphatase 138 U/L Total Protein 6.4 gm/dl Albumin 2.3 gm/dl Globulin 4.1 gm/dl Albumin/Globulin Ratio 0.6 Test 07/22/17 06:30 07/22/17 07:41 07/22/17 08:23 07/22/17 11:52 Prothrombin Time 16.2 SECONDS Prothromb Time International Ratio 1.6 Potassium Level 4.2 mmol/L Chemistry Specimen Hemolysis Assessment and Plan Impression Patient is a 67 year old female currently seen for elevated LFT. Unclear etiology at this time but could be drug related ? Amiodarone, viral/acute hepatitis, BRUNSON given morbid obesity and DM II. No s/s of decompensated liver disease. Plans - Obtain serologies to r/o infectious/acute hepatitis, autoimmune, hereditary liver diseases -> pending - Monitor LFTs - Avoid hepatotoxic meds - Discussed with Dr. Arredondo (Cardiology); though Amiodarone is held for suspected LFT elevation to be related to this med, if she's at risk for Afib recurrence and now has evidence of brain infarct, ok to restart med and we'll continue to follow along. - Upon DC will make her f/u visit in GI clinic; pt had requested to see Dr. Ortiz if possible.
[2017-07-22 14:13] VITALS: BP 193/76
[2017-07-22] MEDS: HydrALAZINE 10 MG TAB PO SCH ×2 (14:15→20:26)
--- NOTE | 2017-07-22 14:17 | Neurology Consultation ---
Neurology Consultation Date of Consultation: Jul 22, 2017. Attending Physician: Marie Cai D.O. Primary Care Physician: Micah Whitmore MD Reason for Consultation: CVA History of Present Illness Source: patient Juanpablo is a 67 year old female with PMH HTN, DM II, HDL, gout, hypothyroidism, paroxysmal A. fib after falls and confusion. She was also somewhat SOB with walking and has chronic orthopnea and sleeps in recliner denies any changes. She has nocturnal hypoxia wears 2 L O2 nasal cannula at bedtime, had recent sleep study showing EDYTA and patient to be set up with CPAP soon. She has had frontal and occipital headaches prior to going bed for approximately a week. She states Wednesday she had a fall and hurt her ankle. She then had some confusion the next day. Her fasting blood sugar was 49 she ate a banana and blood sugar up to 200s. 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 She does not remember getting into the ambulance but does remember talking to EMS crew. She states she didn't hitting head in any of these falls. She has a history of left lower extremity wound, following with wound clinic and reports significant improvement. Today she states she feels she is back to baseline. She is not confused or feeling off balance and there is no pain from her falls. denies CP, SOB, abdominal pain, weakness, numbness tingling, vision changes, one sided weakness, numbness tingling, aphasia, N, V. Her blood sugar was 69 on arrival to the ED Past Medical/Surgical History Medical Problems: (1) Acute congestive heart failure Status: Acute (2) CVA (cerebral vascular accident) Status: Acute (3) Dehydration Status: Acute (4) Heme positive stool Status: Acute (5) Hypokalemia Status: Acute (6) Hypomagnesemia Status: Acute (7) UTI (urinary tract infection) Status: Acute Social History Smoking Status: Never smoker Smokeless Tobacco Use: No Alcohol Use: occasionally Drug Use: none Marital Status: Occupation Status: employed Allergies Coded Allergies: Penicillins (Verified Allergy, Intermediate, URTICARIA; PER PT, CAN TAKE AMOXICILLIN, 04/07/17) Erythromycin (Verified Adverse Reaction, Mild, GI UPSET, 04/07/17) Current Inpatient Medications Current Inpatient Medications Medications (Trade) Dose Ordered Sig/Scott Route Start Time Stop Time Status Last Admin Dose Admin Acetaminophen (Tylenol Tab) 325 mg Q6H PRN PO 07/20/17 00:45 08/19/17 00:44 Insulin Aspart (novoLOG ASPART) SLIDING SCALE If C... ACHS SC 07/20/17 06:30 08/19/17 06:59 07/22/17 12:06 2 UNITS Glucose (Glucose 40% Gel) 15-30 GRAMS 15 GRAMS... UD PRN PO 07/20/17 00:45 08/19/17 00:44 Glucose (Glucose Chew Tab) 4-8 Tablets 4 Tabl... UD PRN PO 07/20/17 00:45 08/19/17 00:44 Dextrose (Dextrose 50% 50ML Syringe) 25-50ML OF 50% DW IV FOR... UD PRN IV 07/20/17 00:45 08/19/17 00:44 Glucagon (Glucagon Inj) 1 mg UD PRN SQ 07/20/17 00:45 08/19/17 00:44 Prochlorperazine Edisylate 5 mg/ Syringe 5 ml @ 5 mls/min Q6H PRN IV 07/20/17 00:45 08/19/17 00:44 Tramadol HCl (Ultram Tab) not relieved by tylenol @ Q6H PRN PO 07/20/17 00:45 08/19/17 00:44 07/20/17 19:54 50 MG Allopurinol (Zyloprim Tab) 200 mg HS PO 07/20/17 21:00 08/19/17 20:59 07/21/17 20:42 200 MG Levothyroxine Sodium (Synthroid Tab) 50 mcg DAILYBB PO 07/20/17 06:30 08/19/17 06:29 07/22/17 05:56 50 MCG Lisinopril (Zestril Tab) 40 mg DAILY PO 07/20/17 08:00 08/19/17 08:59 07/22/17 07:21 40 MG Metoprolol Tartrate (Lopressor Tab) 100 mg BID PO 07/20/17 08:00 08/19/17 08:59 07/22/17 07:21 100 MG Multivitamins (Multivitamin Tab) 1 tab DAILY PO 07/20/17 08:00 08/19/17 08:59 07/22/17 07:21 1 TAB Ferrous Sulfate (Feosol Tab) 325 mg DAILY PO 07/20/17 08:00 08/19/17 08:59 07/22/17 07:22 325 MG Pantoprazole Sodium (Protonix Tab) 40 mg QAM PO 07/20/17 08:00 08/19/17 07:59 07/22/17 07:21 40 MG Warfarin Sodium (Coumadin Tab) 7.5 mg DAILY@16 PO 07/20/17 16:00 08/19/17 15:59 07/21/17 16:10 7.5 MG Morphine Sulfate (MoRPHine SULFATE INJ) 4 mg Q6H PRN IV 07/20/17 00:45 08/03/17 00:44 Amiodarone HCl (Cordarone Tab) 200 mg DAILY PO 07/20/17 08:00 08/19/17 08:59 Future Hold 07/21/17 07:16 200 MG Miscellaneous (Iv Fluids Completed) 1 ea PRN PRN N/A 07/20/17 05:00 07/20/18 04:59 Cholecalciferol (Vitamin D Tab) 1,000 inter.unit DAILY PO 07/21/17 08:00 08/20/17 07:59 07/22/17 07:21 1,000 INTER.UNIT Ibuprofen (Advil Tab) 400 mg BID PO 07/20/17 20:00 08/19/17 19:59 07/22/17 07:22 400 MG Cefdinir (Omnicef Cap) 300 mg BID PO 07/21/17 20:00 07/30/17 08:59 07/22/17 07:21 300 MG Bumetanide (Bumex Tab) 1 mg QAM PO 07/21/17 11:00 08/20/17 10:59 07/22/17 07:22 1 MG Spironolactone (Aldactone Tab) 25 mg QAM PO 07/21/17 11:00 08/20/17 10:59 07/22/17 07:21 25 MG Gadobutrol (Gadavist) 14 mmol UD PRN IV 07/21/17 15:45 07/25/17 15:44 Aspirin (Ecotrin Tab) 81 mg QAM PO 07/22/17 09:00 08/21/17 08:59 07/22/17 09:00 81 MG Hydralazine HCl (Apresoline Tab) 10 mg TID PO 07/22/17 14:00 08/21/17 13:59 Physical Exam Vital Signs (Past 24 Hrs): Date Time Temp Pulse Resp B/P (MAP) Pulse Ox O2 Delivery O2 Flow Rate FiO2 07/22/17 08:45 Room Air 07/22/17 07:54 36.6 63 18 174/76 (108) 95 Room Air 07/22/17 00:00 Room Air 07/21/17 23:32 36.6 67 20 175/74 (107) 96 Room Air 07/21/17 20:00 Room Air 07/21/17 16:45 Room Air 07/21/17 15:09 36.6 60 20 177/83 (114) 96 Room Air Physical Exam: Constitutional: appearance nourished, healthy and obese Ears, Nose, Mouth and Throat: mucous membranes moist, no injection and skin normal, eyes normal Cardiovascular: normal S-1 and S-2 and regular rate and rhythm Respiratory: course breath sounds Musculoskeletal/Skin:: bilateral peripheral edema with neurocutaneous disease bilaterally, wound covered on LLE Eyes: extraocular muscles intact (EOMI) and pupils equal, round and reactive to light (PERRL) NEUROLOGIC EXAMINATION: Mental status: Alert and interactive Oriented to full date and location Oriented to person Speech fluent with no evidence of aphasia Cranial Nerves smile eye brow raise symmetric Reflexes: Deep tendon reflexes were symmetrical and decrease LE Sensory: vibration/cool touch intact GT proprioception intact Coordination: Romberg absent Gait/Stance: Posture stands without assistance, walks with cane tandem steady gait Motor: Negative for pronator drift of out stretched arms with eyes closed. Strength: biceps triceps hand supervisor litharge 5/5 bilaterally, hip flex plantar flex ext 5/5 Laboratory Results Past 24 Hours: 07/22/17 06:29 07/22/17 06:29 07/22/17 08:23 Test 07/22/17 06:29 07/22/17 06:30 07/22/17 08:23 07/22/17 11:52 Red Blood Count 4.08 M/uL (4.2-5.4) Mean Corpuscular Volume 84.8 fL (80-100) Mean Corpuscular Hemoglobin 27.7 pg (25-34) Mean Corpuscular Hemoglobin Concent 32.7 g/dl (32-36) RDW Standard Deviation 48.7 fL (36.4-46.3) RDW Coefficient of Variation 15.6 % (11.5-14.5) Mean Platelet Volume 10.4 fL (7.4-10.4) Anion Gap 5.0 mmol/L (3-11) Est Creatinine Clear Calc Drug Dose 75.0 ml/min Estimated GFR () 70.9 Estimated GFR (Non- 61.2 BUN/Creatinine Ratio 20.5 (10-20) Calcium Level 8.5 mg/dl (8.5-10.1) Total Bilirubin 0.6 mg/dl (0.2-1) Aspartate Amino Transf (AST/SGOT) U/L (15-37) Alanine Aminotransferase (ALT/SGPT) 314 U/L (12-78) Alkaline Phosphatase 138 U/L (45-117) Total Protein 6.4 gm/dl (6.4-8.2) Albumin 2.3 gm/dl (3.4-5.0) Globulin 4.1 gm/dl (2.5-4.0) Albumin/Globulin Ratio 0.6 (0.9-2) Prothrombin Time 16.2 SECONDS (9.0-12.0) Prothromb Time International Ratio 1.6 (0.9-1.1) Chemistry Specimen Hemolysis Bedside Glucose 226 mg/dl (70-90) Imaging CT head- Nonspecific white matter hypodensities. While likely on a small vessel basis, one cannot with certainty exclude an underlying neoplasm. If further evaluation is clinically indicated, an MRI without and with contrast would be considered the test of choice. Suspected age-indeterminate infarct in the region of the left lentiform nucleus and external capsule carotid doppler- . No hemodynamically significant stenosis or significant atherosclerotic plaquing. Normal antegrade vertebral flow bilaterally. US liver- Diffusely hypoechogenic liver parenchyma is most concerning for diffuse parenchymal edema in the setting of hepatitis. MRI brain with and without- Punctate 2 mm focus of restricted water diffusion within the left frontal lobe, most consistent with an tiny acute/subacute infarct Scattered foci of increased T2 and FLAIR signal within the white matter , likely on a small vessel basis. Very prominent perivascular spaces, a finding which is felt to explain the CT abnormalities No evidence of neoplasm TTE- Ejection Fraction = 55-60%. * The right ventricle is borderline dilated. * The right ventricular systolic function is normal. * Aortic valve sclerosis mild, without significant aortic valvular stenosis. * There is mild to moderate mitral annular calcification. * There is mild mitral regurgitation. * There is mild tricuspid regurgitation. * Diastolic dysfunction, Grade II (pseudonormalization pattern). no ASD Impression 67 year old with several days of confusion and 2 falls Plan 1. MRI with small 2 mm area of ischemia- ? if could cause confusion 2. TTE- no ASD 3. INR was sub therapeutic 4. glucose on arrival - 69 5. liver enzymes elevated - GI involved suspecting combination of medications- ammonia 21, CK not elevated 6. aspirin 81 mg added along with INR -2.0-3.0 needed 7. ok to bridge heparin or lovenox injections until INR is therapeutic- cardiology to manage 8. further recommendations to follow I have seen and discussed above patient with Dr Tanja Patel, neurology Pt seen and examined. Pt had several days of mild cognitive complaints w/o focal complaints. Day of admission glucose at home was 49, no sx such as diaphoresis. On admission glucose 69. Pt was supposed to be taking a second oral hypoglycemic, but had not done regularly until recently.MRI tiny acute diffusion wt abnl is likely real but not the cause of 3 day of confusion. Suspect pt blood glucose was low query component of acute liver dysfunction. P. Risk modification, statin when able, asa. Therapeutic AC, although tiny infarct is deep and pbly not embolic. Close monitoring of blood sugar at home with check if pt feels confused. If persists, would consider additional work- up. MAKENNA Patel MD
[2017-07-22 14:58] VITALS: BP 195/73; PULSE 63; TEMP 36.5; O2SAT 95
[2017-07-22 15:13] LABS: HEMOGLOBIN 12.4 g/dL (12.0-16.0); MEAN CELL VOLUME 84.7 fL (80-100); MEAN CORPUSCULAR HEMOGLOBIN 28.4 pg (25-34); PLATELET COUNT 229 K/uL (130-400); RED CELL DISTRIBUTION WIDTH CV 15.7 % (11.5-14.5); RED CELL DISTRIBUTION WIDTH SD 48.7 fL (36.4-46.3); WHITE BLOOD COUNT 10.47 K/uL (4.8-10.8)
[2017-07-22 15:19] LABS: MEAN CORPUSCULAR HGB CONC 33.5 g/dl (32-36)
[2017-07-22 15:40] LABS: BASO % 0.9 %; BASO ABS # 0.09 K/uL (0-0.2); EOS % 2.5 %; EOS ABS # 0.26 K/uL (0-0.5); IG# 0.31 K/uL (0.00-0.02); LYMPH % 20.4 %; LYMPH ABS # 2.14 K/uL (1.2-3.4); MONO % 11.7 %; MONO ABS # 1.22 K/uL (0.11-0.59); NEUT % 61.5 %; NEUT ABS # 6.45 K/uL (1.4-6.5)
[2017-07-22 15:42] LABS: INR 1.6 (0.9-1.1); PTT PATIENT 29.8 SECONDS (21.0-31.0)
[2017-07-22] MEDS ORDERED: HEPARIN IV BOLUS 7,000 UNIT in SYRINGE 0 ML IV SCH (16:00)
[2017-07-22] MEDS ORDERED: HEPARIN 25,000 UNIT/500ML D5W 500 ML IV SCH (16:00)
[2017-07-22] MEDS: WARFARIN SOD 7.5 MG TAB PO SCH (16:12)
[2017-07-22 17:58] VITALS: BP 184/117
[2017-07-22 20:22] VITALS: BP 185/74; PULSE 62
[2017-07-22] MEDS: ALLOPURINOL 100 MG TAB PO SCH (21:35)
--- NOTE | 2017-07-22 22:25 | Progress Note ---
Medicine Progress Note Date & Time of Visit: Jul 22, 2017 at 22:25. Objective Last 8 Hrs Date Time Temp Pulse Resp B/P (MAP) Pulse Ox O2 Delivery O2 Flow Rate FiO2 07/22/17 20:22 62 185/74 (111) 07/22/17 17:58 184/117 (139) 07/22/17 16:30 Room Air 07/22/17 14:58 36.5 63 20 195/73 (113) 95 Room Air Physical Exam: GENERAL: Patient is in no acute distress. HEENT: No acute trauma, normocephalic, mucous membranes moist, no nasal congestion, no scleral icterus. NECK: No stridor, trachea is midline. LUNGS: Diminished breath sounds bilaterally, no wheeze, no rhonchi, breath sounds equal. HEART: Without murmurs gallops or rubs, regular rate and rhythm. ABDOMEN: Soft, nontender, bowel sounds positive, obese EXTREMITIES: No cyanosis or edema, intact range of motion of all the joints without pain or difficulty, no signs for acute trauma. NEUROLOGIC: Oriented x 3, no acute motor or sensory deficits, no focal weakness. SKIN: No rash, no jaundice, no diaphoresis. Laboratory Results: Last 24 Hours Test 07/22/17 06:29 07/22/17 06:30 07/22/17 07:41 07/22/17 08:23 White Blood Count 8.45 K/uL Red Blood Count 4.08 M/uL Hemoglobin 11.3 g/dL Hematocrit 34.6 % Mean Corpuscular Volume 84.8 fL Mean Corpuscular Hemoglobin 27.7 pg Mean Corpuscular Hemoglobin Concent 32.7 g/dl RDW Standard Deviation 48.7 fL RDW Coefficient of Variation 15.6 % Platelet Count 205 K/uL Mean Platelet Volume 10.4 fL Sodium Level 137 mmol/L Potassium Level mmol/L 4.2 mmol/L Chloride Level 103 mmol/L Carbon Dioxide Level 29 mmol/L Anion Gap 5.0 mmol/L Blood Urea Nitrogen 20 mg/dl Creatinine 0.96 mg/dl Est Creatinine Clear Calc Drug Dose 75.0 ml/min Estimated GFR () 70.9 Estimated GFR (Non- 61.2 BUN/Creatinine Ratio 20.5 Random Glucose 167 mg/dl Calcium Level 8.5 mg/dl Total Bilirubin 0.6 mg/dl Aspartate Amino Transf (AST/SGOT) U/L Alanine Aminotransferase (ALT/SGPT) 314 U/L Alkaline Phosphatase 138 U/L Total Protein 6.4 gm/dl Albumin 2.3 gm/dl Globulin 4.1 gm/dl Albumin/Globulin Ratio 0.6 Prothrombin Time 16.2 SECONDS Prothromb Time International Ratio 1.6 Bedside Glucose 156 mg/dl Chemistry Specimen Hemolysis Test 07/22/17 11:52 07/22/17 15:01 07/22/17 16:51 07/22/17 22:13 Bedside Glucose 226 mg/dl 182 mg/dl White Blood Count 10.47 K/uL Red Blood Count 4.37 M/uL Hemoglobin 12.4 g/dL Hematocrit 37.0 % Mean Corpuscular Volume 84.7 fL Mean Corpuscular Hemoglobin 28.4 pg Mean Corpuscular Hemoglobin Concent 33.5 g/dl Platelet Count 229 K/uL Mean Platelet Volume 10.0 fL Neutrophils (%) (Auto) 61.5 % Lymphocytes (%) (Auto) 20.4 % Monocytes (%) (Auto) 11.7 % Eosinophils (%) (Auto) 2.5 % Basophils (%) (Auto) 0.9 % Neutrophils # (Auto) 6.45 K/uL Lymphocytes # (Auto) 2.14 K/uL Monocytes # (Auto) 1.22 K/uL Eosinophils # (Auto) 0.26 K/uL Basophils # (Auto) 0.09 K/uL RDW Standard Deviation 48.7 fL RDW Coefficient of Variation 15.7 % Immature Granulocyte % (Auto) 3.0 % Immature Granulocyte # (Auto) 0.31 K/uL Prothrombin Time 16.8 SECONDS Prothromb Time International Ratio 1.6 Activated Partial Thromboplast Time 29.8 SECONDS Partial Thromboplastin Ratio 1.1 Assessment & Plan AMS/CONFUSION: -possibly related to a tiny CVA seen on MRI -patient reports intermittent confusion 2 days before admission with intermittent headaches -since admission the patient has been alert and oriented and at baseline -CT head: 1. Nonspecific white matter hypodensities. While likely on a small vessel basis, one cannot with certainty exclude an underlying neoplasm. If further evaluation is clinically indicated, an MRI without and with contrast would be considered the test of choice. 2. Suspected age-indeterminate infarct in the region of the left lentiform nucleus and external capsule -differential includes metabolic encephalopathy, stroke, hypoglycemic episodes. Upon ER arrival glucose 69 increased to 156 -MRI brain: tiny left frontal acute/subacute infarct; no neoplasm -check MRA neck -Neuro consult -start daily aspirin -resume statin when LFTs/hepatitis improves -Ammonia level normal HYPOMAGNESIA: -replete and recheck HYPOKALEMIA: -replete and recheck -Replace and monitor electrolytes ACUTE TRANSAMINITIS: -denies any GI symptoms -holding statin, amiodarone dose lowered -Monitor liver functions -RUQ US showed diffuse parenchymal edema in the setting of hepatitis. PAROXYSMAL ATRIAL FIBRILLATION: -on amiodarone, warfarin, metoprolol. -in sinus rhythm. -INR subtherapeutic 1.4 -on decreased dose of amiodarone UTI: -culture grew E coli; abx switched to PO cefdinir for an uncomplicated UTI CHRONIC LOWER EXTREMITY WOUND: -patient following with wound clinic and reports improvement of wound; recently tx with outpatient abx HERRERA: -reports increasing shortness of breath over the past 1-2 weeks as well as chronic lower extremity edema -CXR: Stable cardiomyopathy and stable right hilar prominence. -afebrile, no leukocytosis, 95-97% on room air. -patient on Bumex, Spironolactone which were held initially have now been restarted HYPERTENSION: -continued on lisinopril, metoprolol DM TYPE II: -HbA1c: 6.2 on 04/18 -Prandin held -correction scale insulin while in hospital NOCTURNAL HYPOXIA/EDYTA: -was on 2 L NC at bedtime, recent sleep study sleep study revealed EDYTA, CPAP set up is pending -Continue 2 L oxygen NC HS for now HYPOTHYROIDISM: -TSH: 1.8 -Continue levothyroxine HYPERLIPIDEMIA: -was on statin, held statin due to acutely elevated lfts GOUT: -continue allopurinol CHRONIC ANEMIA: -Hgb: 11.5. ~baseline. -No active bleeding -on iron supplement which is continued -Monitor H&H HISTORY OF GASTRIC ULCER: -continue PPI -discussed with the patient her chronic NSAID use and the cardiovascular and GI effects, patient understands the risk and prefers to take NSAIDs as they have helped her Current Inpatient Medications: Current Inpatient Medications Medications (Trade) Dose Ordered Sig/Scott Route Start Time Stop Time Status Last Admin Dose Admin Acetaminophen (Tylenol Tab) 325 mg Q6H PRN PO 3/20/18 00:45 08/19/17 00:44 Insulin Aspart (novoLOG ASPART) SLIDING SCALE If C... ACHS SC 07/20/17 06:30 08/19/17 06:59 07/22/17 21:42 2 UNITS Glucose (Glucose 40% Gel) 15-30 GRAMS 15 GRAMS... UD PRN PO 07/20/17 00:45 08/19/17 00:44 Glucose (Glucose Chew Tab) 4-8 Tablets 4 Tabl... UD PRN PO 07/20/17 00:45 08/19/17 00:44 Dextrose (Dextrose 50% 50ML Syringe) 25-50ML OF 50% DW IV FOR... UD PRN IV 07/20/17 00:45 08/19/17 00:44 Glucagon (Glucagon Inj) 1 mg UD PRN SQ 07/20/17 00:45 08/19/17 00:44 Prochlorperazine Edisylate 5 mg/ Syringe 5 ml @ 5 mls/min Q6H PRN IV 07/20/17 00:45 08/19/17 00:44 Tramadol HCl (Ultram Tab) not relieved by tylenol @ Q6H PRN PO 07/20/17 00:45 08/19/17 00:44 07/20/17 19:54 50 MG Allopurinol (Zyloprim Tab) 200 mg HS PO 07/20/17 21:00 08/19/17 20:59 07/22/17 21:35 200 MG Levothyroxine Sodium (Synthroid Tab) 50 mcg DAILYBB PO 07/20/17 06:30 08/19/17 06:29 07/22/17 05:56 50 MCG Lisinopril (Zestril Tab) 40 mg DAILY PO 07/20/17 08:00 08/19/17 08:59 07/22/17 07:21 40 MG Metoprolol Tartrate (Lopressor Tab) 100 mg BID PO 07/20/17 08:00 08/19/17 08:59 07/22/17 20:24 100 MG Multivitamins (Multivitamin Tab) 1 tab DAILY PO 07/20/17 08:00 08/19/17 08:59 07/22/17 07:21 1 TAB Ferrous Sulfate (Feosol Tab) 325 mg DAILY PO 07/20/17 08:00 08/19/17 08:59 07/22/17 07:22 325 MG Pantoprazole Sodium (Protonix Tab) 40 mg QAM PO 07/20/17 08:00 08/19/17 07:59 07/22/17 07:21 40 MG Warfarin Sodium (Coumadin Tab) 7.5 mg DAILY@16 PO 07/20/17 16:00 08/19/17 15:59 07/22/17 16:12 7.5 MG Morphine Sulfate (MoRPHine SULFATE INJ) 4 mg Q6H PRN IV 07/20/17 00:45 08/03/17 00:44 Amiodarone HCl (Cordarone Tab) 200 mg DAILY PO 07/20/17 08:00 08/19/17 08:59 Future Hold 07/21/17 07:16 200 MG Miscellaneous (Iv Fluids Completed) 1 ea PRN PRN N/A 07/20/17 05:00 07/20/18 04:59 Cholecalciferol (Vitamin D Tab) 1,000 inter.unit DAILY PO 07/21/17 08:00 08/20/17 07:59 07/22/17 07:21 1,000 INTER.UNIT Ibuprofen (Advil Tab) 400 mg BID PO 07/20/17 20:00 08/19/17 19:59 07/22/17 20:25 400 MG Cefdinir (Omnicef Cap) 300 mg BID PO 07/21/17 20:00 07/30/17 08:59 07/22/17 07:21 300 MG Bumetanide (Bumex Tab) 1 mg QAM PO 07/21/17 11:00 08/20/17 10:59 07/22/17 07:22 1 MG Spironolactone (Aldactone Tab) 25 mg QAM PO 07/21/17 11:00 08/20/17 10:59 07/22/17 07:21 25 MG Gadobutrol (Gadavist) 14 mmol UD PRN IV 07/21/17 15:45 07/25/17 15:44 Aspirin (Ecotrin Tab) 81 mg QAM PO 07/22/17 09:00 08/21/17 08:59 07/22/17 09:00 81 MG Hydralazine HCl (Apresoline Tab) 10 mg TID PO 07/22/17 14:00 08/21/17 13:59 07/22/17 20:26 10 MG Heparin Sodium/ Dextrose 500 ml @ 30 mls/hr [id number] IV 07/22/17 16:00 08/21/17 15:59 07/22/17 16:16 30 MLS/HR
[2017-07-22 22:53] LABS: PTT PATIENT 58.1 SECONDS (21.0-31.0)
[2017-07-23] VITALS: BP 193/84; PULSE 60; TEMP 36.4; O2SAT 97
[2017-07-23] MEDS: LEVOTHYROXINE 50 MCG TAB PO SCH (06:26)
[2017-07-23 07:29] VITALS: BP 188/67; PULSE 67; TEMP 36.6; O2SAT 96
[2017-07-23] MEDS: CEFDINIR 300 MG CAP PO SCH (08:00)
[2017-07-23] MEDS: CHOLECALCIFEROL 1000 INTER.UNIT TAB PO SCH (08:03)
[2017-07-23] MEDS: PANTOprazole SOD 40 MG TAB PO SCH (08:03)
[2017-07-23] MEDS: MULTIVITAMIN TAB PO SCH (08:03)
[2017-07-23] MEDS: LISINOPRIL 40 MG TAB PO SCH (08:03)
[2017-07-23] MEDS: FERROUS SULFATE 325 MG TAB PO SCH (08:03)
[2017-07-23] MEDS: METOPROLOL TARTRATE 100 MG TAB PO SCH (08:04)
[2017-07-23] MEDS: ASPIRIN 81 MG ECTAB PO SCH (08:04)
[2017-07-23] MEDS: SPIRONOLACTONE 25 MG TAB PO SCH (08:04)
[2017-07-23] MEDS: IBUPROFEN 200 MG TAB PO SCH (08:04)
[2017-07-23] MEDS: HydrALAZINE 10 MG TAB PO SCH ×2 (08:06→13:34)
[2017-07-23 08:10] LABS: HEMATOCRIT 35.6 % (37-47); HEMOGLOBIN 11.6 g/dL (12.0-16.0); MEAN CELL VOLUME 84.8 fL (80-100); MEAN CORPUSCULAR HEMOGLOBIN 27.6 pg (25-34); MEAN CORPUSCULAR HGB CONC 32.6 g/dl (32-36); MEAN PLATELET VOLUME 9.6 fL (7.4-10.4); PLATELET COUNT 212 K/uL (130-400); RED CELL DISTRIBUTION WIDTH SD 49.8 fL (36.4-46.3); WHITE BLOOD COUNT 8.22 K/uL (4.8-10.8)
[2017-07-23 08:24] LABS: INR 1.8 (0.9-1.1)
[2017-07-23 08:25] LABS: PTT PATIENT 59.5 SECONDS (21.0-31.0)
[2017-07-23 08:34] LABS: BASO % 1.1 %; BASO ABS # 0.09 K/uL (0-0.2); EOS % 2.3 %; EOS ABS # 0.19 K/uL (0-0.5); IG# 0.36 K/uL (0.00-0.02); LYMPH % 24.8 %; LYMPH ABS # 2.04 K/uL (1.2-3.4); MONO % 8.8 %; MONO ABS # 0.72 K/uL (0.11-0.59); NEUT % 58.6 %; NEUT ABS # 4.82 K/uL (1.4-6.5)
[2017-07-23] MEDS: BUMETANIDE 1 MG TAB PO SCH (08:38)
[2017-07-23 08:46] LABS: ALBUMIN 2.5 gm/dl (3.4-5.0); CALCIUM 8.6 mg/dl (8.5-10.1); CREATININE 0.94 mg/dl (0.60-1.20); POTASSIUM 3.7 mmol/L (3.5-5.1)
[2017-07-23 08:48] LABS: TOTAL PROTEIN 6.5 gm/dl (6.4-8.2)
[2017-07-23] MEDS: INSULIN ASPART 100 UNITS/ML 3 ML PEN SC SCH ×3 (09:22→17:49)
[2017-07-23] MEDS ORDERED: ENOXAPARIN 1 MG/KG SQ SCH (09:30)
[2017-07-23] MEDS ORDERED: ENOXAPARIN 150 MG/1ML SYR SQ ONE (09:30)
--- NOTE | 2017-07-23 10:21 | Cardiology Follow-Up ---
Subjective General Date of Service: Jul 23, 2017. Chief Complaint: Abnormal LFT's Pt evaluation today including: conversation w/ patient, physical exam, chart review, lab review, review of studies, review of inpatient medication list History of Present Illness Patient seen and examined. Anxious for discharge. Blood pressure remains elevated despite resumption of her outpatient regimen as well as the addition of hydralazine. Blood pressure reported to be well controlled, with systolic blood pressures in the 130s, on regular evaluation at the wound clinic. No headaches although these were present prior to admission. No chest pain. No palpitations. Stable dyspnea. She has mildly progressive fluid retention, dependent edema. INR 1.8. Simvastatin discontinued this admission. Amiodarone remains on hold. GI evaluation in progress. Neurology recommendations reviewed. The small infarct on MRI was not felt to be the cause of confusion and probably was not an embolic event. Allergies Coded Allergies: Penicillins (Verified Allergy, Intermediate, URTICARIA; PER PT, CAN TAKE AMOXICILLIN, 04/07/17) Erythromycin (Verified Adverse Reaction, Mild, GI UPSET, 04/07/17) Social History Smoking Status: Never Smoker Hx Tobacco Use In Past Year?: No Hx Alcohol Use - Type And Amou: Yes (occasional mixed drink or glass of wine) Hx Substance Use - Type And Am: No Problem List Medical Problems: (1) Acute congestive heart failure Status: Acute (2) CVA (cerebral vascular accident) Status: Acute (3) Dehydration Status: Acute (4) Heme positive stool Status: Acute (5) Hypokalemia Status: Acute (6) Hypomagnesemia Status: Acute (7) UTI (urinary tract infection) Status: Acute Review of Systems Respiratory: + dyspnea on exertion, No cough, No sputum, No wheezing, No shortness of breath, No dyspnea at rest Cardiac: + edema, No chest pain, No orthopnea, No PND, No claudication, No palpitations Physical Exam Vital Signs Last Vital Signs Documentation Date Time Temp Pulse Resp B/P (MAP) Pulse Ox O2 Delivery O2 Flow Rate FiO2 07/23/17 07:29 36.6 67 18 188/67 (107) 96 Room Air Physical Exam Constitutional: General Apperance: obese Level of Distress: NAD Psychiatric: Mental Status: active & alert Orientation: to time, to place, to person Memory: recent memory normal, remote memory normal Head: normocephalic, atraumatic Eyes: Pupils: PERRLA Neck: pertinent finding (No overt JVD) Lungs: Auscultation: no wheezing, no rales/crackles, no rhonchi, deminished air movement Cardiovascular: Heart Auscultation: RRR, normal S1, normal S2, no rubs, II/ KATHI Peripheral Pulses: Dorsalis Pedis Pulse: decreased on the left, decreased on the right Abdomen: Bowel Sounds: normal Inspection & Palpation: soft Extremities: no cyanosis, no clubbing, edema (1+) Neurologic: Cranial Nerves: grossly intact Assessment and Plan Assessment and Plan Complex 67-year-old female admitted with confusion, small CVA not felt to be embolic, asymptomatic UTI, multiple electrolyte abnormalities, uncontrolled hypertension. Cardiology consultation requested secondary to abnormal LFTs, recommendations regarding amiodarone. Simvastatin discontinued. Amiodarone placed on hold. GI workup in process. RECOMMENDATIONS: Additional diuretic (Bumex and spironolactone) therapy today. Cautiously add low dose amlodipine for additional blood pressure control. Continue Metoprolol at 100 mg twice per day, Lisinopril 40 mg/day, and Hydralazine. Outpatient follow-up with Dr. Foster. Please call if any problems. Cardiology Attending Physician: Patient seen and examined at the bedside. Patient feeling well from a cardiovascular standpoint. Denies chest pain, headache, visual changes, shortness of breath, focal weakness, slurred speech, confusion, or word finding difficulty. Neurology input appreciated. Blood pressure elevated. PE: VSS. Hypertensive. Gen: NAD, AAO x 3. Obese. Heart: Regular, normal S1-S2 , no murmur. Lungs: Clear bilateral, no rales rhonchi or wheeze. Extremities: +1 bilateral pedal edema stasis changes. A/P: Agree with above PA-C history, physical exam, assessment and plan. Hold amiodarone. Continue metoprolol, lisinopril, Bumex, and Aldactone. Amlodipine will be added today to improve blood pressure control. Appreciate neurology input. Agree with Lovenox bridging therapy until INR greater than 2.0. Patient will follow up closely with the [facility] anticoagulation clinic. Jah Arredondo DO, [facility] Laboratory Results Last 24 Hours Test 07/22/17 11:52 07/22/17 15:01 07/22/17 16:51 07/22/17 19:57 Bedside Glucose 226 mg/dl 182 mg/dl 221 mg/dl White Blood Count 10.47 K/uL Red Blood Count 4.37 M/uL Hemoglobin 12.4 g/dL Hematocrit 37.0 % Mean Corpuscular Volume 84.7 fL Mean Corpuscular Hemoglobin 28.4 pg Mean Corpuscular Hemoglobin Concent 33.5 g/dl Platelet Count 229 K/uL Mean Platelet Volume 10.0 fL Neutrophils (%) (Auto) 61.5 % Lymphocytes (%) (Auto) 20.4 % Monocytes (%) (Auto) 11.7 % Eosinophils (%) (Auto) 2.5 % Basophils (%) (Auto) 0.9 % Neutrophils # (Auto) 6.45 K/uL Lymphocytes # (Auto) 2.14 K/uL Monocytes # (Auto) 1.22 K/uL Eosinophils # (Auto) 0.26 K/uL Basophils # (Auto) 0.09 K/uL RDW Standard Deviation 48.7 fL RDW Coefficient of Variation 15.7 % Immature Granulocyte % (Auto) 3.0 % Immature Granulocyte # (Auto) 0.31 K/uL Prothrombin Time 16.8 SECONDS Prothromb Time International Ratio 1.6 Activated Partial Thromboplast Time 29.8 SECONDS Partial Thromboplastin Ratio 1.1 Test 07/22/17 22:13 07/23/17 07:29 07/23/17 07:42 Activated Partial Thromboplast Time 58.1 SECONDS 59.5 SECONDS Partial Thromboplastin Ratio 2.2 2.3 White Blood Count 8.22 K/uL Red Blood Count 4.20 M/uL Hemoglobin 11.6 g/dL Hematocrit 35.6 % Mean Corpuscular Volume 84.8 fL Mean Corpuscular Hemoglobin 27.6 pg Mean Corpuscular Hemoglobin Concent 32.6 g/dl Platelet Count 212 K/uL Mean Platelet Volume 9.6 fL Neutrophils (%) (Auto) 58.6 % Lymphocytes (%) (Auto) 24.8 % Monocytes (%) (Auto) 8.8 % Eosinophils (%) (Auto) 2.3 % Basophils (%) (Auto) 1.1 % Neutrophils # (Auto) 4.82 K/uL Lymphocytes # (Auto) 2.04 K/uL Monocytes # (Auto) 0.72 K/uL Eosinophils # (Auto) 0.19 K/uL Basophils # (Auto) 0.09 K/uL RDW Standard Deviation 49.8 fL RDW Coefficient of Variation 16.0 % Immature Granulocyte % (Auto) 4.4 % Immature Granulocyte # (Auto) 0.36 K/uL Prothrombin Time 19.1 SECONDS Prothromb Time International Ratio 1.8 Sodium Level 138 mmol/L Potassium Level 3.7 mmol/L Chloride Level 101 mmol/L Carbon Dioxide Level 30 mmol/L Anion Gap 7.0 mmol/L Blood Urea Nitrogen 16 mg/dl Creatinine 0.94 mg/dl Est Creatinine Clear Calc Drug Dose 76.6 ml/min Estimated GFR () 72.8 Estimated GFR (Non- 62.8 BUN/Creatinine Ratio 16.7 Random Glucose 199 mg/dl Calcium Level 8.6 mg/dl Total Bilirubin 0.5 mg/dl Direct Bilirubin 0.2 mg/dl Aspartate Amino Transf (AST/SGOT) 260 U/L Alanine Aminotransferase (ALT/SGPT) 350 U/L Alkaline Phosphatase 133 U/L Total Protein 6.5 gm/dl Albumin 2.5 gm/dl Bedside Glucose 213 mg/dl
[2017-07-23] MEDS ORDERED: AMLODIPINE BESYLATE 5 MG TAB PO SCH (10:30)
--- NOTE | 2017-07-23 12:49 | Progress Note ---
Progress Note Date of Service Jul 23, 2017. Progress Note GI brief note: LFT w/o significant change. Serologies mostly still pending. She had been evaluated by Neurology, no further testing planned and primary team going to DC her home today. OK to DC from GI standpoint. GI f/u appt had been requested, awaiting schedulers to contact pt.
[2017-07-23] MEDS ORDERED: BUMETANIDE 1 MG TAB PO ONE (14:00)
[2017-07-23] MEDS ORDERED: SPIRONOLACTONE 25 MG TAB PO ONE (14:00)
[2017-07-23 15:02] VITALS: BP_SYST 197; BP_SYST 201; BP_DIAS 66; BP_DIAS 68; PULSE 65; TEMP 36.7; O2SAT 94
[2017-07-23] MEDS ORDERED: CMD75 PO (15:02)
[2017-07-23] MEDS ORDERED: LVNIS150 SQ (15:02)
[2017-07-23] MEDS ORDERED: APR10 PO (15:02)
[2017-07-23] MEDS ORDERED: SITA100T3 PO (15:02)
[2017-07-23] MEDS ORDERED: NRV5 PO (15:02)
[2017-07-23] MEDS ORDERED: ASPEC81 PO (15:02)
--- NOTE | 2017-07-23 15:07 | Discharge Instructions ---
Discharge Instructions Date of Service Jul 23, 2017. Admission Reason for Admission: Complicated Uti (Urinary Tract Infection) Discharge Discharge Diagnosis / Problem: UTI, Confusion, Elevated transaminases Discharge Goals Goal(s): Therapeutic intervention Activity Recommendations Activity Limitations: resume your previous activity . Instructions / Follow-Up Instructions / Follow-Up Please see Dr. Whitmore on July 27 at 10:45 AM for hospital follow up Please follow up with Dr. Marcus, the office will contact you to schedule Please follow up with Cardiology as scheduled Current Hospital Diet Patient's current hospital diet: Diabetes Type 2 Diet, AHA Diet (Heart Healthy) Discharge Diet Recommended Diet: AHA Diet (Heart Healthy), Diabetes Type 2 Diet Fluid Restriction: None (Please increase water intake as we discussed) Pending Studies Studies pending at discharge: no Laboratory Results Hemoglobin A1c Test 07/19/17 19:25 Range/Units Estimated Average Glucose 126 mg/dl Hemoglobin A1c 6.0 H 4.5-5.6 % Medical Emergencies . Who to Call and When: Medical Emergencies: If at any time you feel your situation is an emergency, please call 911 immediately. . Non-Emergent Contact Non-Emergency issues call your: Primary Care Provider, [employer]per, Hospital Doctor . . "Provider Documentation" section prepared by Marie Cai. .
[2017-07-23] MEDS ORDERED: Labs (15:13)
[2017-07-23] MEDS: WARFARIN SOD 7.5 MG TAB PO SCH (15:47)
[2017-07-23 15:51] VITALS: BP 181/66; PULSE 65; TEMP 36.7; O2SAT 94
[2017-07-23] MEDS ORDERED: ENOXAPARIN 150 MG/1ML SYR SQ SCH (21:00)
--- NOTE | 2017-07-23 23:10 | Discharge Summary ---
Discharge Summary Date of Service Jul 23, 2017. Discharge Summary Admission Date: Jul 20, 2017 at 10:27 Discharge Date: Jul 23, 2017 Discharge Disposition: Home Principal Diagnosis: Confusion, Hypoglycemia, CVA, Elevated transaminases Procedures: MRI brain, TTE Consultations: Neuro, Cardio, GI Pending Studies/Follow-Up: Needs PTINR and CMP checked this week; GI follow up, Cardio follow up; repeat HbA1c in 30 months as diabetes meds were changed secondary to elevated LFTs Medication Reconciliation New Medications: Sitagliptin Phosphate (Januvia) 100 Mg Tab 100 MG PO DAILY, #30 TAB [Labs] () Please have PT, INR, CMP drawn within the next week starting 07/25/17 Please direct results to Dr. Barfield [facility] in [place] Amlodipine Besylate (Amlodipine Besylate) 5 Mg Tab 5 MG PO QAM, #30 TAB Aspirin (Aspirin EC Low Dose) 81 Mg Ectab 81 MG PO QAM, #30 TABS Enoxaparin (Lovenox) 150 Mg/1 Ml Inj 141 MG SQ Q12, #14 DOSE Hydralazine HCl (Hydralazine HCl) 10 Mg Tab 10 MG PO TID, #90 TAB Warfarin Sod (Coumadin) 7.5 Mg Tab 7.5 MG PO DAILY@16, #30 TAB Continued Medications: Allopurinol (Zyloprim) 100 Mg Tab 200 MG PO HS Bumetanide (Bumex) 1 Mg Tab 1 MG PO DAILY Cholecalciferol (Vitamin D3) 1,000 Unit Tab 1000 UNITS PO DAILY Ferrous Sulfate (Kp Ferrous Sulfate) 325 Mg Tab 325 MG PO DAILY Home O2 Therapy (Oxygen) Gas 2 LITERS NA HS Ibuprofen (Motrin) 400 Mg Tab 400 MG PO BID, TAB PRN Levothyroxine Sodium (Levothyroxine Sodium) 50 Mcg Tab 50 MCG PO DAILY Lisinopril (Zestril) 40 Mg Tab 40 MG PO DAILY, TAB Metoprolol Tartrate (Lopressor) (Lopressor) 100 Mg Tab 100 MG PO BID, TAB Multiple Vitamin (Multivitamin) 1 Tab Tab 1 TAB PO DAILY, TAB Omeprazole (Prilosec) 20 Mg Capcr 20 MG PO DAILY, CAP Spironolactone (Aldactone) 25 Mg Tab 25 MG PO DAILY, TAB Tramadol (Ultram) 50 Mg Tab 2 TAB PO QID PRN for Pain Discontinued Medications: Amiodarone Hcl (Cordarone) 200 Mg Tab 200 MG PO BID, TAB Repaglinide (Prandin) 1 Mg Tab 0.5 MG PO AC Simvastatin (Zocor) 10 Mg Tab 10 MG PO QPM, TAB Warfarin Sod (Jantoven) 7.5 Mg Tab 7.5 MG PO 3XWK TAKE 7.5MG EVERY WEDNESDAY/WEDNESDAY/WEDNESDAY. Warfarin Sod (Jantoven) 5 Mg Tab 5 MG PO 4XWK TAKE 5MG EVERY WEDNESDAY/WEDNESDAY/WEDNESDAY/WEDNESDAY. Admission Information HPI (per Admitting provider): Pt is 67 y/o F with PMH HTN, DM II, HDL, gout, hypothyroidism, paroxysmal A. fib presented to ER with complaint of increasing shortness of breath with exertion for past 1-2 weeks. Patient states feeling short of breath with walking short distance of couple steps. Denies chest pain or palpitations. Reports chronic orthopnea and sleeps in recliner denies any changes. States chronic lower extremity edema, does not feel significantly worse.Patient history nocturnal hypoxia wears 2 L O2 nasal cannula at bedtime, had recent sleep study showing EDYTA and patient to be set up with CPAP soon. Patient reports history of frontal and occipital headaches prior to going bed for approximately a week or so. States this morning had mild nonproductive cough. Denies rhinorrhea, sore throat. Patient states 2 days ago had some confusion in which she arrived to work 1 hour prior to start time and reports was having trouble with decision making. Patient admits to not eating breakfast, did not check her blood sugar that day. Patient reports fasting blood sugar this morning was 49, ate a banana and blood sugar up to 200s. 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 Reports 4 days ago tripped going up a step and injured left foot. Complains of some pain , aggravated with weightbearing. Reports ecchymosis left second toe and left medial foot. Patient reports today was sitting on wheeled stool and slid off of stool. Denies hitting head in any of these falls. Denies any dizziness or syncope or vision changes. Patient with history of left lower extremity wound, following with wound clinic and reports significant improvement. Several months ago was on IV antibiotics, patient denies any discharge or surrounding erythema or noted worsening. Denies any known history of CAD, TIA/stroke. Denies any paresthesias, extremity weakness, speech changes, vision changes, dysuria, hematuria, urinary frequency, hematochezia, epistaxis, fever/chills, diaphoresis, N/V/D/C, neck pain, CP,choking, otalgia, rhinorrhea, abdominal pain , paresthesias, weakness, other rashes, weight changes, night sweats. ER patient given 20 mEq potassium p.o., aspirin, magnesium 1 g IV, 5 mL bolus NSS followed by 125 mL an hour, and Rocephin Physical Exam (per Admitting): General Appearance: no apparent distress, + obese Head: normocephalic, atraumatic Eyes: normal inspection, PERRL, EOMI, sclerae normal ENT: hearing grossly normal, pharynx normal, + pertinent finding (Mucous membranes mildly dry) Neck: supple, no JVD, trachea midline Respiratory/Chest: lungs clear, normal breath sounds, no respiratory distress, no accessory muscle use Cardiovascular: regular rate, rhythm, normal peripheral pulses Abdomen/GI: normal bowel sounds, non tender, soft Extremities/Musculoskelatal: no calf tenderness, non-tender, + pedal edema ( 2+), + pertinent finding (Left lower extremity 1 cm without significant surrounding erythema or discharge. Left foot: Left second toe ecchymosis mild tenderness to palpation, positive tenderness to palpation first through third MTP. Range of motion toes ankle intact.) Neurologic/Psych: no motor/sensory deficits, alert, normal mood/affect, oriented x 3 Skin: warm/dry, + pertinent finding (See extremity above.) Hospital Course AMS/CONFUSION: -possibly related to a tiny CVA seen on MRI -patient reports intermittent confusion 2 days before admission with intermittent headaches -since admission the patient has been alert and oriented and at baseline -CT head: 1. Nonspecific white matter hypodensities. While likely on a small vessel basis, one cannot with certainty exclude an underlying neoplasm. If further evaluation is clinically indicated, an MRI without and with contrast would be considered the test of choice. 2. Suspected age-indeterminate infarct in the region of the left lentiform nucleus and external capsule -differential includes metabolic encephalopathy, stroke, hypoglycemic episodes. Upon ER arrival glucose 69 increased to 156 -MRI brain: tiny left frontal acute/subacute infarct; no neoplasm -check MRA neck -Neuro consult -start daily aspirin -resume statin when LFTs/hepatitis improves -Ammonia level normal HYPOMAGNESIA: -replete and recheck HYPOKALEMIA: -replete and recheck -Replace and monitor electrolytes ACUTE TRANSAMINITIS: -denies any GI symptoms -holding statin, amiodarone dose lowered -Monitor liver functions -RUQ US showed diffuse parenchymal edema in the setting of hepatitis. -GI to follow up as outpatient as well PAROXYSMAL ATRIAL FIBRILLATION: -on amiodarone, warfarin, metoprolol. -in sinus rhythm. -INR subtherapeutic 1.7 -on decreased dose of amiodarone, now stopped per Cardio UTI: -culture grew E coli; abx switched to PO cefdinir for an uncomplicated UTI; course completed CHRONIC LOWER EXTREMITY WOUND: -patient following with wound clinic and reports improvement of wound; recently tx with outpatient abx HERRERA: -reports increasing shortness of breath over the past 1-2 weeks as well as chronic lower extremity edema -CXR: Stable cardiomyopathy and stable right hilar prominence. -afebrile, no leukocytosis, 95-97% on room air. -patient on Bumex, Spironolactone which were held initially have now been restarted HYPERTENSION: -continued on lisinopril, metoprolol DM TYPE II: -HbA1c: 6.2 on 04/18 -Prandin held -correction scale insulin while in hospital NOCTURNAL HYPOXIA/EDYTA: -was on 2 L NC at bedtime, recent sleep study sleep study revealed EDYTA, CPAP set up is pending -Continue 2 L oxygen NC HS for now HYPOTHYROIDISM: -TSH: 1.8 -Continue levothyroxine HYPERLIPIDEMIA: -was on statin, held statin due to acutely elevated lfts GOUT: -continue allopurinol CHRONIC ANEMIA: -Hgb: 11.5. ~baseline. -No active bleeding -on iron supplement which is continued -Monitor H&H HISTORY OF GASTRIC ULCER: -continue PPI -discussed with the patient her chronic NSAID use and the cardiovascular and GI effects, patient understands the risk and prefers to take NSAIDs as they have helped her PHYSICAL EXAM ON DAY OF DISCHARGE: GENERAL: Patient is in no acute distress. HEENT: No acute trauma, normocephalic, mucous membranes moist, no nasal congestion, no scleral icterus. NECK: No stridor, trachea is midline. LUNGS: Clear to auscultation bilaterally, no wheeze, no rhonchi, breath sounds equal. HEART: Without murmurs gallops or rubs, regular rate and rhythm. ABDOMEN: Soft, nontender, bowel sounds positive EXTREMITIES: No cyanosis; B/L LE edema, full range of motion of all the joints without pain or difficulty, no signs for acute trauma. NEUROLOGIC: Oriented x 3, no acute motor or sensory deficits, no focal weakness. SKIN: No rash, no jaundice, no diaphoresis. Total time spent on discharge = 37 This includes examination of the patient, discharge planning, medication reconciliation, and communication with other providers. Discharge Instructions see patient instructions Additional Copies To Micah Whitmore MD
[2017-07-24 15:40] LABS: ANA SCREEN TC 249X NEGATIVE (NEGATIVE); HEPATITIS A IGM TC 51813E NON-REACTIVE (NON-REACTIVE); HEPATITIS B CORE IGM TC51854R NON-REACTIVE (NON-REACTIVE); HERPES SIMPLEX AB IGG-2 < 0.90 INDEX (< 0.90); PARVOVIRUS IgM INDEX 0.2 (<0.9)
== END 2017-07-23 18:25 | disposition home or self-care (01) | DRG 689 ==
LOC: EDBD 18:09 → C.EDC 18:10 → C.MS4W 07-20 00:15 → EDBEDREQ 07-20 00:19 → ENRESERV 07-20 00:48 → OBSVTOIN 07-20 10:27
PROVIDERS: ADMIT Internal Medicine; ATTEND Internal Medicine
DX: N39.0 Urinary tract infection, site not specified (principal); G93.40 Encephalopathy, unspecified; I13.0 Hypertensive heart and chronic kidney disease with heart failure and stage 1 through stage 4 chronic kidney disease, or unspecified chronic kidney disease; I50.30 Unspecified diastolic (congestive) heart failure; E11.9 Type 2 diabetes mellitus without complications; E78.5 Hyperlipidemia, unspecified; E03.9 Hypothyroidism, unspecified; I48.0 Paroxysmal atrial fibrillation; E83.42 Hypomagnesemia; E87.6 Hypokalemia; R79.89 Other specified abnormal findings of blood chemistry; G47.33 Obstructive sleep apnea (adult) (pediatric); D64.9 Anemia, unspecified; M10.9 Gout, unspecified; E86.0 Dehydration; S81.809A Unspecified open wound, unspecified lower leg, initial encounter; W19.XXXA Unspecified fall, initial encounter; N18.3 Chronic kidney disease, stage 3 (moderate); Z96.652 Presence of left artificial knee joint; Z83.3 Family history of diabetes mellitus; Z86.73 Personal history of transient ischemic attack (TIA), and cerebral infarction without residual deficits; Z88.0 Allergy status to penicillin; Z79.84 Long term (current) use of oral hypoglycemic drugs; Z88.2 Allergy status to sulfonamides; Z82.49 Family history of ischemic heart disease and other diseases of the circulatory system

== ENCOUNTER 2020-02-03 09:20 | Inpatient (IN) ==
[2020-02-03] MEDS ORDERED: SODIUM CHLORIDE 0.9% 1000ML 1,000 ML IV SCH ×3 (10:00→20:45)
[2020-02-03] MEDS ORDERED: ETOMIDATE 2 MG/ML 20 ML VIAL IV ONE (10:17)
[2020-02-03 10:26] LABS: Eosinophils # (auto) 0.01 K/uL (0-0.5); Eosinophils % (auto) 0.1 %; Hematocrit (blood only) 32.6 % (37-47); Hemoglobin 10.5 g/dL (12.0-16.0); Immature Granulocytes # (auto) 0.03 K/uL (0.00-0.02); Immature Granulocytes % (auto) 0.2 %; Lymphocytes # (auto) 0.63 K/uL (1.2-3.4); Lymphocytes % (auto) 4.5 %; Mean Corpuscular Hemoglobin 26.9 pg (25-34); Mean Corpuscular Hgb Conc 32.2 g/dL (32-36); Mean Corpuscular Volume 83.4 fL (80-100); Mean Platelet Volume 10.5 fL (7.4-10.4); Monocytes # (auto) 0.26 K/uL (0.11-0.59); Monocytes % (auto) 1.8 %; Neutrophils # (auto) 13.17 K/uL (1.4-6.5); Neutrophils % (auto) 93.4 %; Nucleated RBC # (auto) 0.03 K/uL (0-0); Nucleated RBC % (auto) 0.2 %; Platelet Count 266 K/uL (130-400); RDW Coefficient of Variation 15.7 % (11.5-14.5); RDW Standard Deviation 47.9 fL (36.4-46.3); Red Blood Count 3.91 M/uL (4.2-5.4)
[2020-02-03 10:43] LABS: Alanine Aminotransferase 19 U/L (12-78); Albumin Level 2.2 gm/dl (3.4-5.0); Aspartate Aminotransferase 23 U/L (15-37); BUN Creatinine Ratio 20.8 (10-20); Bilirubin Direct 0.2 mg/dl (0-0.2); Blood Urea Nitrogen 55 mg/dl (7-18); Calcium 8.8 mg/dl (8.5-10.1); Carbon Dioxide 22 mmol/L (21-32); Chloride 101 mmol/L (98-107); Creatinine Clr Calc Pharmacy 26.9 ml/min; Est GFR (African American) 20.8; Est GFR (Non-African American) 17.9; Glucose 169 mg/dl (70-99); Potassium 4.1 mmol/L (3.5-5.1); Sodium 135 mmol/L (136-145)
[2020-02-03 10:44] LABS: Prothrombin Time 81.3 Seconds (9.0-12.0)
--- NOTE | 2020-02-03 10:45 | Emergency Department Note ---
History of Present Illness General Chief complaint: Back Injury/Pain Time Seen by Provider: 02/03/20 09:26 Source: patient Mode of arrival: EMS History of Present Illness Maximum Pain Intensity: 4 This 69-year-old white female who arrives by ambulance today, for evaluation of right low back pain and atrial fibrillation. She states she has chronic low back pain. She normally takes Tylenol and tramadol, which allows her to be functional. Over the last 2 to 3 days it has not been helping. Her pain is more severe. She points to the right SI joint as her area of worst discomfort. It does not radiate into the legs. She denies any new numbness or tingling in the lower extremities. She also notes that she has been in A. fib intermi ttently for the last 3 weeks. She does have a distant history of atrial fibrillation. She normally sees [facility] cardiology/Florentin Senior PA-C. She noticed she was in Afib again about 3 weeks ago. She states it resolved on its own after about a week. It then started again earlier this week. She has been taking her medications. She denies any chest pain or shortness of breath. She normally sees Dr. Astorga for her A. fib and has been cardioverted in the past. No other complaints. Home Medications Home Medications Medication Instructions Recorded Confirmed Type allopurinol 100 mg tablet 200 mg PO HS tab 02/15/18 02/03/20 History aspirin 81 mg chewable tablet 81 mg PO HS 02/15/18 02/03/20 History bumetanide 1 mg tablet 1 mg PO QAM 02/15/18 02/03/20 History cholecalciferol (vitamin D3) 25 2,000 units PO QAM 02/15/18 02/03/20 History mcg (1,000 unit) capsule hydralazine 10 mg tablet 10 mg PO TID 02/15/18 02/03/20 History ibuprofen 400 mg tablet 400 mg PO BID 02/15/18 02/03/20 History lisinopril 40 mg tablet 40 mg PO HS 02/15/18 02/03/20 History metoprolol tartrate 100 mg tablet 100 mg PO BID 02/15/18 02/03/20 History multivitamin 1 tab PO HS 02/15/18 02/03/20 History omeprazole 20 mg capsule,delayed 20 mg PO QAM 02/15/18 02/03/20 History release spironolactone 25 mg tablet 25 mg PO QAM 02/15/18 02/03/20 History tramadol 50 mg tablet 50 mg PO QID PRN 02/15/18 02/03/20 History warfarin 7.5 mg tablet 7.5 mg PO SUTUWETHFRSA tab 02/15/18 02/03/20 History levothyroxine 50 mcg capsule 50 mcg PO QAM cap 03/03/18 02/03/20 History metformin 500 mg tablet 2,000 mg PO HS 03/15/18 02/03/20 History amlodipine 10 mg PO QAM 02/03/20 02/03/20 History magnesium oxide 400 mg PO MOWEFR 02/03/20 02/03/20 History repaglinide 0.5 mg PO AC 02/03/20 02/03/20 History rosuvastatin [Crestor] 10 mg PO HS 02/03/20 02/03/20 History warfarin 10 mg PO MO 02/03/20 02/03/20 History Allergies Allergy/AdvReac Type Severity Reaction Status Date / Time Penicillins Allergy Intermediate URTICARIA; Verified 02/03/20 11:07 PER PT, CAN TAKE AMOXICILLIN erythromycin base AdvReac Mild GI UPSET Verified 02/03/20 11:07 Past Med/Surg History Medical History Acute CHF Anemia Atrial fibrillation with RVR CKD stage 3 secondary to diabetes Complicated UTI (urinary tract infection) Complicated UTI (urinary tract infection) CVA (cerebral vascular accident) Diabetes mellitus type 2 with complications Dizziness DM II (diabetes mellitus, type II), controlled Dyslipidemia Gastric ulcer Gastric ulcer due to Helicobacter pylori Gout H pylori ulcer H/O Moh's micrographic surgery for skin cancer H/O: upper GI bleed Heme positive stool HTN (hypertension) Hx of basal cell carcinoma Hypertension Hypokalemia Hypomagnesemia Hypothyroidism Infected ulcer of skin Infected ulcer of skin Morbid obesity Osteoarthritis Surgical History H/O basal cell carcinoma excision H/O left knee surgery H/O repair of rotator cuff History of arthroplasty of left knee History of carpal tunnel surgery History of carpal tunnel surgery Status post Mohs surgery Family History Mother Heart disease Diabetes Father Stroke Hypertension Other No pertinent family history Social History Smoking Status: Never smoker Second Hand Exposure: No; Do You Dip or Chew Tobacco: No; Tobacco Cessation Education Requested by Patient: No Hx Alcohol Use: Yes Alcohol type: wine Hx Substance Use: No Preferred Language: Serbian Communication Ability: Effective Hearing Ability: Normal Sisal Picker Required: No Beliefs That Will Affect Care: None marital status: / Current Living Situation: Alone current occupational status: retired Other Information That Helps Us Care for You: No Feels Safe at Home: Yes Assistive Devices: CPAP and Glasses Review of Systems All systems reviewed & are unremarkable except as noted in HPI & below A total of 10 systems are reviewed. Physical Exam Vital Signs Vital Signs - 24 hr 02/03/20 09:25 02/03/20 09:35 02/03/20 09:37 Temperature 37.2 C Temperature Source Oral Pulse Rate 135 H 135 H 133 H Pulse Rate from SpO2 Sensor 133 H Respiratory Rate 21 18 24 Respiratory Effort / Characteristics Non-Labored Spontaneous Respiratory Depth Normal Blood Pressure 88/57 L 87/65 L 87/65 L Blood Pressure [Left Arm] Blood Pressure Mean 83 76 72 Blood Pressure Mean [Left Arm] Blood Pressure Position Sitting Pulse Oximetry 94 94 Oxygen Delivery Method Room Air Sepsis Recent Fever Within 48 Hours No Sepsis New/Unexplained Change in Mental Status N/A Sepsis Action Taken by Nursing Adv Provider Notified 02/03/20 09:50 02/03/20 09:57 02/03/20 10:15 Temperature Temperature Source Pulse Rate 132 H 142 H Pulse Rate from SpO2 Sensor Respiratory Rate 26 H 18 Respiratory Effort / Characteristics Respiratory Depth Blood Pressure 76/55 L Blood Pressure [Left Arm] 84/58 L Blood Pressure Mean 70 Blood Pressure Mean [Left Arm] 66 Blood Pressure Position Pulse Oximetry Oxygen Delivery Method Sepsis Recent Fever Within 48 Hours Sepsis New/Unexplained Change in Mental Status Sepsis Action Taken by Nursing 02/03/20 10:18 Temperature Temperature Source Pulse Rate 137 H Pulse Rate from SpO2 Sensor 124 H Respiratory Rate 19 Respiratory Effort / Characteristics Respiratory Depth Blood Pressure 70/50 L Blood Pressure [Left Arm] Blood Pressure Mean 63 Blood Pressure Mean [Left Arm] Blood Pressure Position Pulse Oximetry 99 Oxygen Delivery Method Sepsis Recent Fever Within 48 Hours Sepsis New/Unexplained Change in Mental Status Sepsis Action Taken by Nursing General: Well-developed, well-nourished, elderly white female, in no acute distress. Obvious discomfort. Sitting on a bed. Alert and oriented. Morbidly obese. Skin: Warm and dry with fair turgor. No rashes. Large area of ecchymosis on her lower abdomen. No erythema. The patient is not diaphoretic. Small abrasions on her lower extremities. She has considerable venous stasis changes in both legs. Small ulceration/excoriations present on her lower legs as well. HEENT: Normocephalic atraumatic. Eyes PERRLA, EOMI. No conjunctiva or scleral injection. Ears TMs intact bilaterally with good light reflexes. No erythema or bulging. No hemotympanum. Canals are patent. Nares patent bilaterally without turbinate enlargement. No significant drainage. No epistaxis. Oropharynx without erythema or exudate. Uvula midline, oral mucosa moist. No lesions present. Poor dentition. Heart: Irregularly irregular. No murmurs, gallops, or rubs. Lungs: Lungs are clear to auscultation. No crackles rhonchi or wheezing. Good air movement. The patient is able to take a deep breath. Abdomen: Abdomen was inspected, auscultated, and palpated. Morbidly obes e.Bowel sounds present x 4. Soft, nontender to palpation. No hepato- splenomegaly. No masses noted. No rebound. No CVA tenderness. Ecchymotic area on her lower abdomen is stated. Musculoskeletal: Low back evaluation reveals no obvious deformity. Patient has no discomfort with palpation over her thoracic or lumbar vertebrae. She has focal discomfort with palpation over her right SI joint and sacrum. Pain extends into her right buttock. She has intact motor function of her lower extremities for hip flexion, knee extension, knee flexion, and ankle motion. Flexion of the right and left hips generates right-sided SI joint pain. Neurologic: Gross sensation is intact across both lower extremities by soft touch. DTRs are 1+ bilaterally at the knees. Course Administered Medications Acetaminophen (Acetaminophen 325 Mg Tab) 325 mg PO Q6H PRN PRN Reason: Pain or Fever Stop: 03/04/20 12:29 Last Admin: 02/08/20 19:40 Dose: 325 mg Documented by: [id number] Allopurinol (Allopurinol 100 Mg Tab) 200 mg PO [facility] Stop: 03/04/20 20:59 Last Admin: 02/09/20 20:49 Dose: 200 mg Documented by: [id number] Admin: 02/08/20 19:40 Dose: 200 mg Documented by: [id number] Admin: 02/07/20 21:34 Dose: 200 mg Documented by: [id number] Admin: 02/06/20 19:48 Dose: 200 mg Documented by: [id number] Admin: 02/05/20 21:02 Dose: 200 mg Documented by: [id number] Admin: 02/04/20 22:12 Dose: 200 mg Documented by: [id number] Admin: 02/03/20 20:53 Dose: 200 mg Documented by: [id number] Amiodarone HCl (Amiodarone 200 Mg Tab) 400 mg PO BIDM [facility] Stop: 03/10/20 16:59 Last Admin: 02/09/20 17:48 Dose: 400 mg Documented by: [id number] Amlodipine Besylate (Amlodipine Besylate 5 Mg Tab) 10 mg PO [facility] Stop: 03/09/20 09:44 Last Admin: 02/09/20 07:45 Dose: 10 mg Documented by: [id number] Admin: 02/08/20 10:54 Dose: 10 mg Documented by: [id number] Aspirin (Aspirin 81 Mg Ectab) 81 mg PO [facility] Stop: 03/04/20 20:59 Last Admin: 02/09/20 20:48 Dose: 81 mg Documented by: [id number] Admin: 02/08/20 19:38 Dose: 81 mg Documented by: [id number] Admin: 02/07/20 21:33 Dose: 81 mg Documented by: [id number] Admin: 02/06/20 19:48 Dose: 81 mg Documented by: [id number] Admin: 02/05/20 21:02 Dose: 81 mg Documented by: [id number] Admin: 02/04/20 22:13 Dose: 81 mg Documented by: [id number] Admin: 02/03/20 20:53 Dose: 81 mg Documented by: [id number] Bumetanide (Bum[facility]anide 1 Mg Tab) [facility] Stop: 03/08/20 10:44 Last Admin: 02/09/20 07:45 Dose: 1 mg Documented by: [id number] Admin: 02/08/20 08:37 Dose: 1 mg Documented by: [id number] Admin: 02/07/20 11:13 Dose: 1 mg Documented by: [id number] Hydralazine HCl (Hydralazine 10 Mg Tab) 10 mg PO TID [facility] Stop: 03/08/20 13:59 Last Admin: 02/09/20 20:49 Dose: 10 mg Documented by: [id number] Admin: 02/09/20 14:03 Dose: 10 mg Documented by: [id number] Admin: 02/09/20 07:44 Dose: 10 mg Documented by: [id number] Admin: 02/08/20 19:39 Dose: 10 mg Documented by: [id number] Admin: 02/08/20 13:02 Dose: 10 mg Documented by: [id number] Admin: 02/08/20 08:37 Dose: 10 mg Documented by: [id number] Admin: 02/07/20 21:35 Dose: 10 mg Documented by: [id number] Admin: 02/07/20 13:59 Dose: 10 mg Documented by: [id number] Hydromorphone HCl (Hydromorphone Inj 0.5 Mg/0.5 Ml Syr) 0.5 mg IV Q2H PRN PRN Reason: Moderate Pain Stop: 02/19/20 09:49 Last Admin: 02/08/20 08:35 Dose: 0.5 mg Documented by: [id number] Admin: 02/07/20 13:59 Dose: 0.5 mg Documented by: [id number] Admin: 02/07/20 11:45 Dose: 0.5 mg Documented by: [id number] Admin: 02/07/20 09:23 Dose: 0.5 mg Documented by: [id number] Admin: 02/06/20 19:10 Dose: 0.5 mg Documented by: [id number] Admin: 02/06/20 17:00 Dose: 0.5 mg Documented by: [id number] Admin: 02/06/20 13:57 Dose: 0.5 mg Documented by: [id number] Admin: 02/06/20 10:17 Dose: 0.5 mg Documented by: [id number] Admin: 02/06/20 07:56 Dose: 0.5 mg Documented by: [id number] Admin: 02/06/20 04:52 Dose: 0.5 mg Documented by: [id number] Admin: 02/05/20 23:43 Dose: 0.5 mg Documented by: [id number] Hydromorphone HCl (Hydromorphone Inj 1 Mg/Ml Syringe) 1 mg IV Q2H PRN PRN Reason: Severe Pain Stop: 02/19/20 09:49 Last Admin: 02/10/20 05:11 Dose: 1 mg Documented by: [id number] Admin: 02/09/20 23:10 Dose: 1 mg Documented by: [id number] Admin: 02/09/20 13:15 Dose: 1 mg Documented by: [id number] Admin: 02/09/20 07:41 Dose: 1 mg Documented by: [id number] Admin: 02/08/20 23:35 Dose: 1 mg Documented by: [id number] Admin: 02/08/20 19:40 Dose: 1 mg Documented by: [id number] Admin: 02/08/20 13:54 Dose: 1 mg Documented by: [id number] Admin: 02/07/20 04:07 Dose: 1 mg Documented by: [id number] Admin: 02/07/20 00:01 Dose: 1 mg Documented by: [id number] Admin: 02/05/20 19:44 Dose: 1 mg Documented by: [id number] Admin: 02/05/20 16:25 Dose: 1 mg Documented by: [id number] Admin: 02/05/20 11:31 Dose: 1 mg Documented by: [id number] Ceftriaxone Sodium 2,000 mg/ (Dextrose) 70 mls @ 100 mls/hr IV DAILY [facility]; Protocol Stop: 02/22/20 08:59 Last Infusion: 02/09/20 09:04 Dose: 0 mls/hr Documented by: [id number] Admin: 02/09/20 07:54 Dose: 100 mls/hr Documented by: [id number] Infusion: 02/08/20 09:31 Dose: 0 mls/hr Documented by: [id number] Admin: 02/08/20 08:45 Dose: 100 mls/hr Documented by: [id number] Insulin Aspart (Insulin Aspart 100 Units/Ml 3 Ml Pen) 0 units SC ACHS [facility]; Protocol Stop: 03/04/20 16:29 Last Admin: 02/09/20 21:42 Dose: 10 units Documented by: [id number] Cosigned by: [id number] Admin: 02/09/20 17:49 Dose: 14 units Documented by: [id number] Cosigned by: [id number] Admin: 02/09/20 12:03 Dose: 13 units Documented by: [id number] Cosigned by: [id number] Admin: 02/09/20 07:59 Dose: 18 units Documented by: [id number] Cosigned by: [id number] Admin: 02/08/20 21:13 Dose: 1 units Documented by: [id number] Cosigned by: [id number] Admin: 02/08/20 16:48 Dose: 23 units Documented by: [id number] Cosigned by: [id number] Admin: 02/08/20 13:02 Dose: 12 units Documented by: [id number] Cosigned by: [id number] Admin: 02/08/20 08:43 Dose: 6 units Documented by: [id number] Cosigned by: [id number] Admin: 02/07/20 21:39 Dose: 3 units Documented by: [id number] Cosigned by: [id number] Admin: 02/07/20 17:20 Dose: 16 units Documented by: [id number] Cosigned by: [id number] Admin: 02/07/20 12:28 Dose: 14 units Documented by: [id number] Cosigned by: [id number] Admin: 02/07/20 09:32 Dose: 5 units Documented by: [id number] Cosigned by: [id number] Admin: 02/06/20 20:12 Dose: 5 units Documented by: [id number] Cosigned by: [id number] Admin: 02/06/20 16:58 Dose: 12 units Documented by: [id number] Cosigned by: [id number] Admin: 02/06/20 13:23 Dose: 9 units Documented by: [id number] Cosigned by: [id number] Admin: 02/06/20 07:58 Dose: Not Given Documented by: [id number] Cosigned by: [id number] Admin: 02/05/20 21:05 Dose: 10 units Documented by: [id number] Cosigned by: [id number] Admin: 02/05/20 17:57 Dose: 12 units Documented by: [id number] Cosigned by: [id number] Admin: 02/05/20 12:20 Dose: Not Given Documented by: [id number] Cosigned by: [id number] Admin: 02/05/20 10:00 Dose: 4 units Documented by: [id number] Cosigned by: [id number] Admin: 02/04/20 22:13 Dose: 3 units Documented by: [id number] Cosigned by: [id number] Admin: 02/04/20 18:19 Dose: 6 units Documented by: [id number] Cosigned by: [id number] Admin: 02/04/20 13:07 Dose: 12 units Documented by: [id number] Cosigned by: [id number] Admin: 02/04/20 09:15 Dose: 4 units Documented by: [id number] Cosigned by: [id number] Admin: 02/03/20 20:55 Dose: 5 units Documented by: [id number] Cosigned by: [id number] Admin: 02/03/20 17:18 Dose: 6 units Documented by: [id number] Cosigned by: [id number] Insulin Glargine (Insulin Glargine Solostar 100 Units/Ml 3 Ml Pen) 19 units SC BID [facility]; Protocol Stop: 03/04/20 20:59 Last Admin: 02/09/20 21:42 Dose: 19 units Documented by: [id number] Cosigned by: [id number] Admin: 02/09/20 08:00 Dose: 19 units Documented by: [id number] Cosigned by: [id number] Admin: 02/08/20 21:14 Dose: 19 units Documented by: [id number] Cosigned by: [id number] Admin: 02/08/20 08:44 Dose: 19 units Documented by: [id number] Cosigned by: [id number] Admin: 02/07/20 21:36 Dose: 19 units Documented by: [id number] Cosigned by: [id number] Levothyroxine Sodium (Levothyroxine Sodium 50 Mcg Tablet) [facility] Stop: 03/05/20 06:29 Last Admin: 02/10/20 06:03 Dose: 50 mcg Documented by: [id number] Admin: 02/09/20 05:29 Dose: 50 mcg Documented by: [id number] Admin: 02/08/20 05:25 Dose: 50 mcg Documented by: [id number] Admin: 02/07/20 05:57 Dose: 50 mcg Documented by: [id number] Admin: 02/06/20 08:00 Dose: 50 mcg Documented by: [id number] Admin: 02/05/20 05:11 Dose: 50 mcg Documented by: [id number] Admin: 02/04/20 05:50 Dose: 50 mcg Documented by: [id number] Lisinopril (Lisinopril 40 Mg Tab) [facility] Stop: 03/08/20 19:59 Last Admin: 02/09/20 07:45 Dose: 40 mg Documented by: [id number] Admin: 02/08/20 08:37 Dose: 40 mg Documented by: [id number] Admin: 02/07/20 21:33 Dose: 40 mg Documented by: [id number] Magnesium Oxide (Magnesium Oxide 400 Mg Tab) 400 mg PO BID [facility] Stop: 03/04/20 20:59 Last Admin: 02/09/20 20:48 Dose: 400 mg Documented by: [id number] Admin: 02/09/20 07:46 Dose: 400 mg Documented by: [id number] Admin: 02/08/20 19:40 Dose: 400 mg Documented by: [id number] Admin: 02/08/20 08:37 Dose: 400 mg Documented by: [id number] Admin: 02/07/20 21:34 Dose: 400 mg Documented by: [id number] Admin: 02/07/20 09:25 Dose: 400 mg Documented by: [id number] Admin: 02/06/20 19:48 Dose: 400 mg Documented by: [id number] Admin: 02/06/20 08:01 Dose: 400 mg Documented by: [id number] Admin: 02/05/20 21:02 Dose: 400 mg Documented by: [id number] Admin: 02/05/20 08:05 Dose: 400 mg Documented by: [id number] Admin: 02/04/20 22:12 Dose: 400 mg Documented by: [id number] Admin: 02/04/20 09:53 Dose: 400 mg Documented by: [id number] Admin: 02/03/20 20:53 Dose: 400 mg Documented by: [id number] Metoprolol Tartrate (Metoprolol Tartrate 50 Mg Tab) 50 mg PO BID [facility] Stop: 03/05/20 10:44 Last Admin: 02/09/20 20:49 Dose: 50 mg Documented by: [id number] Admin: 02/09/20 07:45 Dose: 50 mg Documented by: [id number] Admin: 02/08/20 19:40 Dose: 50 mg Documented by: [id number] Admin: 02/08/20 08:37 Dose: 50 mg Documented by: [id number] Admin: 02/07/20 21:33 Dose: 50 mg Documented by: [id number] Admin: 02/07/20 09:25 Dose: 50 mg Documented by: [id number] Admin: 02/06/20 19:52 Dose: Not Given Documented by: [id number] Admin: 02/06/20 08:01 Dose: 50 mg Documented by: [id number] Admin: 02/05/20 21:02 Dose: 50 mg Documented by: [id number] Admin: 02/05/20 08:06 Dose: 50 mg Documented by: [id number] Admin: 02/04/20 22:11 Dose: 50 mg Documented by: [id number] Admin: 02/04/20 11:43 Dose: 50 mg Documented by: [id number] Metoprolol Tartrate (Metoprolol Tartrate 1 Mg/Ml Vial) 5 mg IV Q4 PRN PRN Reason: sustained HR > 115 Stop: 03/06/20 00:00 Last Admin: 02/06/20 07:57 Dose: 5 mg Documented by: [id number] Admin: 02/05/20 17:06 Dose: 5 mg Documented by: [id number] Admin: 02/05/20 07:54 Dose: 5 mg Documented by: [id number] Multivitamins (Multivitamin Tab) 1 tab PO HS [facility] Stop: 03/04/20 20:59 Last Admin: 02/09/20 20:49 Dose: 1 tab Documented by: [id number] Admin: 02/08/20 19:40 Dose: 1 tab Documented by: [id number] Admin: 02/07/20 21:35 Dose: 1 tab Documented by: [id number] Admin: 02/06/20 19:48 Dose: 1 tab Documented by: [id number] Admin: 02/05/20 21:02 Dose: 1 tab Documented by: [id number] Admin: 02/04/20 22:14 Dose: 1 tab Documented by: [id number] Admin: 02/03/20 20:53 Dose: 1 tab Documented by: [id number] Oxycodone HCl (Oxycodone Hcl Ir 5 Mg Tab (Immediate Release)) 5 - 10 mg PO Q4 PRN PRN Reason: Pain Stop: 02/23/20 09:59 Last Admin: 02/09/20 16:17 Dose: 10 mg Documented by: [id number] Admin: 02/09/20 11:01 Dose: 10 mg Documented by: [id number] Pantoprazole Sodium (Pantoprazole 40 Mg Tab) 40 mg PO QAM [facility] Stop: 03/05/20 08:59 Last Admin: 02/09/20 07:46 Dose: 40 mg Documented by: [id number] Admin: 02/08/20 08:37 Dose: 40 mg Documented by: [id number] Admin: 02/07/20 09:26 Dose: 40 mg Documented by: [id number] Admin: 02/06/20 08:01 Dose: 40 mg Documented by: [id number] Admin: 02/05/20 08:06 Dose: 40 mg Documented by: [id number] Admin: 02/04/20 09:52 Dose: 40 mg Documented by: [id number] Spironolactone (Spironolactone 25 Mg Tab) [facility] Stop: 03/09/20 08:59 Last Admin: 02/09/20 07:44 Dose: 25 mg Documented by: [id number] Admin: 02/08/20 08:38 Dose: 25 mg Documented by: [id number] Vitamin D (Cholecalciferol 1,000 Units 25 Mcg Tab) 2,000 [facility] Stop: 03/05/20 08:59 Last Admin: 02/09/20 07:46 Dose: 2,000 units Documented by: [id number] Admin: 02/08/20 08:36 Dose: 2,000 units Documented by: [id number] Admin: 02/07/20 09:26 Dose: 2,000 units Documented by: [id number] Admin: 02/06/20 08:01 Dose: 2,000 units Documented by: [id number] Admin: 02/05/20 08:06 Dose: 2,000 units Documented by: [id number] Admin: 02/04/20 09:52 Dose: 2,000 units Documented by: [id number] Warfarin Sodium (Warfarin Sod 5 Mg Tab) 5 mg PO DAILY@1600 [facility] Stop: 03/07/20 15:59 Last Admin: 02/08/20 16:47 Dose: 5 mg Documented by: [id number] Admin: 02/06/20 16:10 Dose: 5 mg Documented by: [id number] Discontinued Medications Amiodarone HCl (Amiodarone 200 Mg Tab) 400 mg PO TIDM [facility] Stop: 03/08/20 11:59 Last Admin: 02/09/20 07:45 Dose: 400 mg Documented by: [id number] Admin: 02/08/20 16:47 Dose: 400 mg Documented by: [id number] Admin: 02/08/20 13:02 Dose: 400 mg Documented by: [id number] Admin: 02/08/20 08:37 Dose: 400 mg Documented by: [id number] Admin: 02/07/20 17:18 Dose: 400 mg Documented by: [id number] Admin: 02/07/20 11:13 Dose: 400 mg Documented by: [id number] Atropine Sulfate (Atropine Sulfate 0.1 Mg/Ml 10ml Syr) Confirm Administered Dose 1 mg IV .STK-MED ONE Stop: 02/07/20 06:51 Last Admin: 02/07/20 09:27 Dose: Not Given Documented by: [id number] Diltiazem HCl (Diltiazem Hcl 5 Mg/Ml 5 Ml Vial) 5 mg IV NOW STA Stop: 02/06/20 08:52 Last Admin: 02/06/20 09:57 Dose: 5 mg Documented by: [id number] Cosigned by: [id number] Etomidate (Etomidate 2 Mg/Ml 20 Ml Vial) Confirm Administered Dose 40 mg IV .STK-MED ONE Stop: 02/03/20 10:18 Last Increment: 02/03/20 11:05 Dose: 10 mg Documented by: [id number] Hydromorphone HCl (Hydromorphone Inj 0.5 Mg/0.5 Ml Syr) 0.5 mg IV Q8H PRN PRN Reason: Severe Pain Stop: 02/17/20 12:19 Last Admin: 02/03/20 12:52 Dose: 0.5 mg Documented by: [id number] Hydromorphone HCl (Hydromorphone Inj 0.5 Mg/0.5 Ml Syr) 0.5 mg IV NOW STA Stop: 02/03/20 17:54 Last Admin: 02/03/20 20:11 Dose: Not Given Documented by: [id number] Hydromorphone HCl (Hydromorphone Inj 0.5 Mg/0.5 Ml Syr) 0.5 mg IV Q4H PRN PRN Reason: Severe Pain Stop: 02/17/20 12:19 Last Admin: 02/04/20 09:53 Dose: 0.5 mg Documented by: [id number] Admin: 02/04/20 04:27 Dose: 0.5 mg Documented by: [id number] Admin: 02/03/20 20:54 Dose: 0.5 mg Documented by: [id number] Sodium Chloride (Nss 1000ml) 1,000 mls @ 250 mls/hr IV .Q4H [facility] Stop: 03/04/20 09:59 Last Infusion: 02/03/20 15:21 Dose: 0 mls/hr Documented by: [id number] Admin: 02/03/20 10:20 Dose: 250 mls/hr Documented by: [id number] Sodium Chloride (Nss 1000ml) 1,000 mls @ 100 mls/hr IV .Q10H [facility] Stop: 02/04/20 00:29 Last Infusion: 02/04/20 07:26 Dose: 0 mls/hr Documented by: [id number] Admin: 02/03/20 14:43 Dose: 100 mls/hr Documented by: [id number] Piperacillin Sod/Tazobactam (Sod 3.375 gm/ Dextrose) 100 ml in 115 mls @ 230 mls/hr IV NOW ONE Stop: 02/03/20 13:29 Last Infusion: 02/03/20 15:22 Dose: 0 mls/hr Documented by: [id number] Admin: 02/03/20 14:42 Dose: 230 mls/hr Documented by: [id number] Piperacillin Sod/Tazobactam (Sod 4.5 gm/ Dextrose) 120 mls @ 30 mls/hr IV Q8H [facility]; Protocol Stop: 02/12/20 19:59 Last Admin: 02/08/20 07:06 Dose: Not Given Documented by: [id number] Infusion: 02/07/20 13:53 Dose: 0 mls/hr Documented by: [id number] Admin: 02/07/20 09:24 Dose: 28.8 mls/hr Documented by: [id number] Infusion: 02/07/20 03:18 Dose: 0 mls/hr Documented by: [id number] Admin: 02/07/20 00:03 Dose: 33 mls/hr Documented by: [id number] Infusion: 02/06/20 20:20 Dose: 0 mls/hr Documented by: [id number] Admin: 02/06/20 16:10 Dose: 28.8 mls/hr Documented by: [id number] Infusion: 02/06/20 12:17 Dose: 0 mls/hr Documented by: [id number] Admin: 02/06/20 08:00 Dose: 28.8 mls/hr Documented by: [id number] Infusion: 02/06/20 05:14 Dose: 0 mls/hr Documented by: [id number] Admin: 02/06/20 01:14 Dose: 30 mls/hr Documented by: [id number] Infusion: 02/05/20 20:26 Dose: 0 mls/hr Documented by: [id number] Admin: 02/05/20 16:26 Dose: 30 mls/hr Documented by: [id number] Infusion: 02/05/20 09:20 Dose: 0 mls/hr Documented by: [id number] Admin: 02/05/20 05:10 Dose: 30 mls/hr Documented by: [id number] Infusion: 02/04/20 23:55 Dose: 0 mls/hr Documented by: [id number] Admin: 02/04/20 19:55 Dose: 30 mls/hr Documented by: [id number] Infusion: 02/04/20 17:10 Dose: 0 mls/hr Documented by: [id number] Admin: 02/04/20 13:06 Dose: 30 mls/hr Documented by: [id number] Infusion: 02/04/20 09:30 Dose: 0 mls/hr Documented by: [id number] Admin: 02/04/20 05:17 Dose: 30 mls/hr Documented by: [id number] Infusion: 02/04/20 00:57 Dose: 0 mls/hr Documented by: [id number] Admin: 02/03/20 20:57 Dose: 30 mls/hr Documented by: [id number] Magnesium Sulfate/Dextrose (Magnesium Sulfate / D5w) 1 gm in 100 mls @ 50 mls/hr IV Q2H MONIKA Stop: 02/03/20 21:59 Last Infusion: 02/03/20 22:00 Dose: 0 mls/hr Documented by: [id number] Admin: 02/03/20 20:00 Dose: 50 mls/hr Documented by: [id number] Infusion: 02/03/20 19:58 Dose: 50 mls/hr Documented by: [id number] Admin: 02/03/20 17:58 Dose: 50 mls/hr Documented by: [id number] Infusion: 02/03/20 17:58 Dose: 50 mls/hr Documented by: [id number] Admin: 02/03/20 15:59 Dose: 50 mls/hr Documented by: [id number] Sodium Chloride (Nss 1000ml) 1,000 mls @ 80 mls/hr IV .[id number] MONIKA Stop: 02/04/20 09:14 Last Infusion: 02/04/20 16:30 Dose: 0 mls/hr Documented by: [id number] Admin: 02/04/20 03:39 Dose: 80 mls/hr Documented by: [id number] Phytonadione 2.5 mg/ Sodium (Chloride) 50.25 mls @ 100.5 mls/hr IV ONE ONE Stop: 02/03/20 22:14 Last Infusion: 02/03/20 22:06 Dose: 0 mls/hr Documented by: [id number] Admin: 02/03/20 21:36 Dose: 100.5 mls/hr Documented by: [id number] Vancomycin HCl 2,500 mg/ (Sodium Chloride) 550 mls @ 200 mls/hr IV TODAY@0100 MONIKA Stop: 02/04/20 03:44 Last Infusion: 02/04/20 03:36 Dose: 0 mls/hr Documented by: [id number] Admin: 02/04/20 00:51 Dose: 200 mls/hr Documented by: [id number] Daptomycin 500 mg/ Syringe 10 mls @ 5 mls/min IV Q24H MONIKA; Protocol Stop: 02/18/20 13:59 Last Admin: 02/07/20 13:59 Dose: 5 mls/min Documented by: [id number] Admin: 02/06/20 14:26 Dose: 5 mls/min Documented by: [id number] Admin: 02/05/20 15:35 Dose: 5 mls/min Documented by: [id number] Admin: 02/04/20 15:25 Dose: 5 mls/min Documented by: [id number] Sodium Chloride (Nss 1000ml) 1,000 mls @ 50 mls/hr IV .Q20H MONIKA Stop: 02/05/20 18:59 Last Infusion: 02/06/20 14:08 Dose: 0 mls/hr Documented by: [id number] Admin: 02/05/20 07:50 Dose: 50 mls/hr Documented by: [id number] Amiodarone HCl/Dextrose (Nexterone / D5w) 150 mg in 100 mls @ 600 mls/hr IV NOW STA Stop: 02/05/20 09:30 Last Infusion: 02/05/20 10:00 Dose: 0 mls/hr Documented by: [id number] Cosigned by: [id number] Admin: 02/05/20 09:46 Dose: 600 mls/hr Documented by: [id number] Cosigned by: [id number] Amiodarone HCl/Dextrose (Nexterone / D5w) 360 mg in 200 mls @ 33.333 mls/hr IV ONE ONE Stop: 02/05/20 15:44 Last Infusion: 02/05/20 16:05 Dose: 0 mls/hr Documented by: [id number] Cosigned by: [id number] Admin: 02/05/20 10:01 Dose: 33.3 mls/hr Documented by: [id number] Cosigned by: [id number] Amiodarone HCl/Dextrose (Nexterone / D5w) 360 mg in 200 mls @ 16.667 mls/hr IV .Q12H MONIKA Stop: 03/06/20 15:44 Last Infusion: 02/08/20 07:04 Dose: 0 mg/min, 0 mls/hr Documented by: [id number] Cosigned by: [id number] Infusion: 02/07/20 06:55 Dose: 0.5 mg/min, 16.7 mls/hr Documented by: [id number] Cosigned by: [id number] Admin: 02/07/20 02:50 Dose: 0.5 mg/min, 16.7 mls/hr Documented by: [id number] Cosigned by: [id number] Infusion: 02/07/20 02:50 Dose: 0.5 mg/min, 16.7 mls/hr Documented by: [id number] Cosigned by: [id number] Admin: 02/06/20 16:07 Dose: 0.5 mg/min, 16.7 mls/hr Documented by: [id number] Cosigned by: [id number] Infusion: 02/06/20 14:59 Dose: 0.5 mg/min, 16.7 mls/hr Documented by: [id number] Cosigned by: [id number] Admin: 02/06/20 03:00 Dose: 0.5 mg/min, 16.7 mls/hr Documented by: [id number] Cosigned by: [id number] Infusion: 02/06/20 02:58 Dose: 0.5 mg/min, 16.7 mls/hr Documented by: [id number] Cosigned by: [id number] Admin: 02/05/20 14:59 Dose: 0.5 mg/min, 16.7 mls/hr Documented by: [id number] Cosigned by: [id number] Diltiazem HCl 125 mg/ Dextrose 125 mls @ 15 mls/hr IV .Q8H20M [facility]; Protocol Stop: 03/07/20 08:59 Last Titration: 02/08/20 07:05 Dose: 0 mg/hr, 0 mls/hr Documented by: [id number] Cosigned by: [id number] Titration: 02/07/20 06:56 Dose: 15 mg/hr, 15 mls/hr Documented by: [id number] Cosigned by: [id number] Admin: 02/06/20 23:51 Dose: 15 mg/hr, 15 mls/hr Documented by: [id number] Cosigned by: [id number] Titration: 02/06/20 23:50 Dose: 0 mg/hr, 0 mls/hr Documented by: [id number] Cosigned by: [id number] Titration: 02/06/20 21:30 Dose: 15 mg/hr, 15 mls/hr Documented by: [id number] Cosigned by: [id number] Titration: 02/06/20 19:00 Dose: 10 mg/hr, 10 mls/hr Documented by: [id number] Cosigned by: [id number] Admin: 02/06/20 09:58 Dose: 5 mg/hr, 5 mls/hr Documented by: [id number] Cosigned by: [id number] Furosemide 40 mg/ Syringe 4 mls @ 4 mls/min IV ONE ONE Stop: 02/06/20 09:16 Last Admin: 02/06/20 09:58 Dose: 4 mls/min Documented by: [id number] Magnesium Sulfate/Dextrose (Magnesium Sulfate / D5w) 1 gm in 100 mls @ 50 mls/hr IV ONE ONE Stop: 02/08/20 10:59 Last Infusion: 02/08/20 13:08 Dose: 0 mls/hr Documented by: [id number] Admin: 02/08/20 10:55 Dose: 50 mls/hr Documented by: [id number] Magnesium Sulfate/Dextrose (Magnesium Sulfate / D5w) 1 gm in 100 mls @ 50 mls/hr IV ONE ONE Stop: 02/09/20 11:59 Last Infusion: 02/09/20 12:47 Dose: 0 mls/hr Documented by: [id number] Admin: 02/09/20 10:47 Dose: 50 mls/hr Documented by: [id number] Insulin Aspart (Insulin Aspart 100 Units/Ml 3 Ml Pen) 0 units SC 0000,0400 [facility]; Protocol Stop: 02/06/20 04:01 Last Admin: 02/06/20 04:55 Dose: 2 units Documented by: [id number] Cosigned by: [id number] Admin: 02/05/20 23:40 Dose: 5 units Documented by: [id number] Cosigned by: [id number] Insulin Glargine (Insulin Glargine Solostar 100 Units/Ml 3 Ml Pen) 18 units SC BID MONIKA; Protocol Stop: 03/04/20 20:59 Last Admin: 02/06/20 07:59 Dose: 18 units Documented by: [id number] Cosigned by: [id number] Admin: 02/05/20 21:02 Dose: 18 units Documented by: [id number] Cosigned by: [id number] Admin: 02/05/20 08:05 Dose: 18 units Documented by: [id number] Cosigned by: [id number] Admin: 02/04/20 22:13 Dose: 18 units Documented by: [id number] Cosigned by: [id number] Admin: 02/04/20 09:15 Dose: 18 units Documented by: [id number] Cosigned by: [id number] Admin: 02/03/20 20:54 Dose: 18 units Documented by: [id number] Cosigned by: [id number] Insulin Glargine (Insulin Glargine Solostar 100 Units/Ml 3 Ml Pen) 14 units SC BID MONIKA; Protocol Stop: 03/04/20 20:59 Last Admin: 02/06/20 20:10 Dose: 14 units Documented by: [id number] Cosigned by: [id number] Insulin Glargine (Insulin Glargine Solostar 100 Units/Ml 3 Ml Pen) 16 units SC BID MONIKA; Protocol Stop: 03/04/20 20:59 Last Admin: 02/07/20 09:25 Dose: 16 units Documented by: [id number] Cosigned by: [id number] Lidocaine HCl (Lidocaine Hcl 2% 2 Ml Vial/Amp(20mg/Ml)) Confirm Administered Dose 4 ml INFIL .STK-MED ONE Stop: 02/07/20 07:15 Last Admin: 02/07/20 09:27 Dose: Not Given Documented by: [id number] Metoprolol Tartrate (Metoprolol Tartrate 1 Mg/Ml Vial) 2.5 mg IV NOW STA Stop: 02/04/20 04:43 Last Admin: 02/04/20 05:23 Dose: 2.5 mg Documented by: [id number] Nystatin (Nystatin Cr 15 Gm Tube) 1 appln EXT DAILY MONIKA Stop: 03/04/20 18:44 Last Admin: 02/04/20 13:43 Dose: Not Given Documented by: [id number] Admin: 02/03/20 20:09 Dose: 1 appln Documented by: [id number] Oxycodone HCl (Oxycodone Hcl Ir 5 Mg Tab (Immediate Release)) 5 mg PO Q6H PRN PRN Reason: Moderate Pain Stop: 02/17/20 12:18 Last Admin: 02/09/20 05:29 Dose: 5 mg Documented by: [id number] Admin: 02/08/20 19:39 Dose: 5 mg Documented by: [id number] Admin: 02/08/20 13:50 Dose: 5 mg Documented by: [id number] Admin: 02/08/20 08:35 Dose: 5 mg Documented by: [id number] Admin: 02/08/20 00:25 Dose: 5 mg Documented by: [id number] Admin: 02/07/20 17:42 Dose: 5 mg Documented by: [id number] Admin: 02/04/20 11:43 Dose: 5 mg Documented by: [id number] Admin: 02/03/20 17:17 Dose: 5 mg Documented by: [id number] Phytonadione (Phytonadione 5 Mg Tab) 2.5 mg PO NOW STA Stop: 02/03/20 12:11 Last Admin: 02/03/20 12:20 Dose: 2.5 mg Documented by: [id number] Potassium Chloride (Potassium Chloride 20 Meq Tabcr) 20 meq PO NOW ONE Stop: 02/05/20 07:47 Last Admin: 02/05/20 09:44 Dose: 20 meq Documented by: [id number] Potassium Chloride (Potassium Chloride 20 Meq Tabcr) 40 meq PO ONE ONE Stop: 02/06/20 08:53 Last Admin: 02/06/20 09:57 Dose: 40 meq Documented by: [id number] Potassium Chloride (Potassium Chloride 20 Meq Tabcr) 20 meq PO NOW STA Stop: 02/06/20 08:58 Last Admin: 02/06/20 09:58 Dose: 20 meq Documented by: [id number] Potassium Chloride (Potassium Chloride 20 Meq Tabcr) 40 meq PO NOW STA Stop: 02/08/20 09:33 Last Admin: 02/08/20 10:54 Dose: 40 meq Documented by: [id number] Propofol (Propofol Iv Emulsion 10 Mg/Ml 20 Ml Vial) Confirm Administered Dose 200 mg IV .STK-MED ONE Stop: 02/07/20 07:15 Last Admin: 02/07/20 09:27 Dose: Not Given Documented by: [id number] Propofol (Propofol Iv Emulsion 10 Mg/Ml 20 Ml Vial) Confirm Administered Dose 200 mg IV .STK-MED ONE Stop: 02/07/20 07:17 Last Admin: 02/07/20 09:27 Dose: Not Given Documented by: [id number] Rosuvastatin Calcium (Rosuvastatin Calcium 10 Mg Tab) 10 mg PO [facility] Stop: 03/04/20 20:59 Last Admin: 02/03/20 20:53 Dose: 10 mg Documented by: [id number] Warfarin Sodium (Warfarin Sod 5 Mg Tab) 5 mg PO NOW ONE Stop: 02/05/20 07:47 Last Admin: 02/05/20 09:44 Dose: 5 mg Documented by: [id number] Warfarin Sodium (Warfarin Sod 5 Mg Tab) 5 mg PO TODAY@16 [facility] Stop: 02/05/20 16:01 Last Admin: 02/05/20 17:58 Dose: 5 mg Documented by: [id number] Critical Care Time Critical Care Time: Yes Total Critical Care Time: 30 Medical Decision Making Differential Diagnosis SI joint dysfunction, lumbar radiculopathy, muscle strain, ureterolithiasis Medical Records Attestation: I reviewed the patient's medical records. Home Medications Current Medication List: was personally reviewed by me Laboratory Data Attestation: I reviewed the patient's lab results. CBC obtained today shows a mild elevation in white count at 14.1. Mildly anemic with an H&H of 10.5 and 32.6. INR is significantly elevated at 8.7. Chemistry panel shows elevated BUN and creatinine, beyond her normal baseline. BUN of 55 with creatinine of 2.62. Glucose mildly elevated at 169. Troponin obtained today is normal at less than 0.015. TSH is normal at 1.8. Albumin low at 2.2. Result diagrams: 02/10/20 06:03 02/10/20 06:03 Lab Results 02/03/20 02/03/20 02/03/20 Range/Units 10:10 10:10 10:10 WBC 14.10 H (4.8-10.8) K/uL RBC 3.91 L (4.2-5.4) M/uL Hgb 10.5 L (12.0-16.0) g/dL Hct 32.6 L (37-47) % MCV 83.4 (80-100) fL MCH 26.9 (25-34) pg MCHC 32.2 (32-36) g/dL RDW Std Deviation 47.9 H (36.4-46.3) fL RDW Coeff of Yvette 15.7 H (11.5-14.5) % Plt Count 266 (130-400) K/uL MPV 10.5 H (7.4-10.4) fL Immature Gran % (Auto) 0.2 % Neut % (Auto) 93.4 % Lymph % (Auto) 4.5 % [place] % (Auto) 1.8 % Eos % (Auto) 0.1 % Baso % (Auto) 0.0 % Neut # (Auto) 13.17 H (1.4-6.5) K/uL Lymph # (Auto) 0.63 L (1.2-3.4) K/uL [place] # (Auto) 0.26 (0.11-0.59) K/uL Eos # (Auto) 0.01 (0-0.5) K/uL Baso # (Auto) 0.00 (0-0.2) K/uL Immature Gran # (Auto) 0.03 H (0.00-0.02) K/uL Absolute Nucleated RBC 0.03 H (0-0) K/uL Nucleated RBC % (auto) 0.2 % PT 81.3 H (9.0-12.0) Seconds INR 8.7 H* (0.9-1.1) Sodium 135 L (136-145) mmol/L Potassium 4.1 (3.5-5.1) mmol/L Chloride 101 (98-107) mmol/L Carbon Dioxide 22 (21-32) mmol/L Anion Gap 12.0 H (3-11) BUN 55 H (7-18) mg/dl Creatinine 2.62 H (0.6-1.2) mg/dl Est Cr Clr Drug Dosing 26.9 ml/min Est GFR ( Amer) 20.8 Est GFR (Non-Af Amer) 17.9 BUN/Creatinine Ratio 20.8 H (10-20) Glucose 169 H (70-99) mg/dl Calcium 8.8 (8.5-10.1) mg/dl Total Bilirubin 0.5 (0.2-1) mg/dl Direct Bilirubin 0.2 (0-0.2) mg/dl AST 23 (15-37) U/L ALT 19 (12-78) U/L Alkaline Phosphatase 88 (45-117) U/L Troponin I < 0.015 (0-0.045) ng/ml Total Protein 7.0 (6.4-8.2) gm/dl Albumin 2.2 L (3.4-5.0) gm/dl Globulin 4.8 H (2.5-4.0) gm/dl Albumin/Globulin Ratio 0.5 L (0.9-2) TSH 1.820 (0.300-4.500) uIu/ml Imaging Data Radiologist's Impression: KUB and chest x-ray obtained today show a moderate amount of retained stool. No evidence for obstruction or stone. Chest film shows no change compared to the prior study. No acute process within the chest. Stable cardiomegaly and right hilar enlargement. These were read by radiology and reviewed by me. ECG Data Additional Comments: EKG obtained today shows atrial fibrillation with RVR and a rate of 132. This was reviewed with Dr. Greenberg. Blood Pressure Blood Pressure Findings: Low blood pressure MDM Narrative Patient was evaluated in A11. She was found to be in atrial fibrillation with RVR. Patient was seen in conjunction with Dr. Greenberg, who also evaluated the patient and was involved in her care. She did require cardioversion and will be admitted to the hospitalist service. Impression & Plan Atrial fibrillation with RVR, Acute renal failure, Elevated INR Patient was evaluated in room A11. IV was established. She was given 1 L normal sterile saline at 250 mL/h. Labs were obtained. She was placed on a monitor throughout her ED visit. EKG was obtained. She was found to be in atrial fibrillation with RVR. Patient was hypotensive. A liter of saline was administered. Due to her RVR, due to her vitals, I did ask for involvement of Dr. Greenberg. Please see his dictation for additional management. Patient will require admission. She did receive cardioversion. Hospitalist service was consulted and John CORRIGAN did come to the ED for evaluation, in addition to Dr. Lino. Patient remained stable in the ED after cardioversion. Discharge Plan Visit Data Chief Complaint: Back Injury/Pain ED Provider: Gordo Greenberg ED Midlevel Provider: Binh Escalante Discharge Problem: Atrial fibrillation with RVR, Acute renal failure, Elevated INR Patient Disposition: Admitted As Inpatient Discharge Instructions Interventions: ED Discharge Assessment Last Done: 02/03/20 14:00 Discharge Problem: Acute renal failure Qualifiers: Acute renal failure type: unspecified Qualified Code(s): N17.9 - Acute kidney failure, unspecified
--- NOTE | 2020-02-03 10:49 | Electrocardiogram Report ---
Test Reason : Blood Pressure : / mmHG Vent. Rate : 132 BPM Atrial Rate : 133 BPM P-R Int : 000 ms QRS Dur : 084 ms QT Int : 322 ms P-R-T Axes : 000 001 015 degrees QTc Int : 477 ms Atrial fibrillation with rapid ventricular response Low voltage QRS Abnormal ECG When compared with ECG of 19-JUL-2017 18:21, Atrial fibrillation has replaced Sinus rhythm Vent. rate has increased BY 59 BPM Confirmed by Shravan Menchaca ([id number]) on 02/03/2020 10:49:24 AM Referred By: REFERRED SELF Confirmed By:Jose Menchaca
[2020-02-03 10:53] LABS: Albumin Globulin Ratio 0.5 (0.9-2); Alkaline Phosphatase 88 U/L (45-117); Bilirubin,Total 0.5 mg/dl (0.2-1); Globulin 4.8 gm/dl (2.5-4.0); Troponin I < 0.015 ng/ml (0-0.045)
[2020-02-03 10:56] LABS: INR 8.7 (0.9-1.1)
[2020-02-03] MEDS ORDERED: PHYTONADIONE 5 MG TAB PO STA (12:10)
[2020-02-03] MEDS ORDERED: PROMETHAZINE HCL 6.25 MG in SODIUM CHLORIDE 0.9% 50 ML IV PRN (12:20)
[2020-02-03] MEDS ORDERED: HYDROmorphone INJ 0.5 MG/0.5 ML SYR IV PRN (12:20)
[2020-02-03] MEDS ORDERED: PIPERACILL/TAZOBAC CONSULT ACTIVE PRN (12:29)
[2020-02-03] MEDS ORDERED: diphenhydrAMINE 50 MG/ML VIAL IV PRN (12:30)
--- NOTE | 2020-02-03 12:51 | Emergency Department Note ---
History of Present Illness General Chief complaint: Back Injury/Pain Time Seen by Provider: 02/03/20 09:26 Source: patient Mode of arrival: EMS Limitations: no limitations History of Present Illness Provider complaint: A. fib with RVR Maximum Pain Intensity: 4 This is a 69-year-old female who presents to the ED by ambulance. The patient initially presented and was evaluated by Binh Escalante PA-C for some SI joint pain. Upon the patient's arrival, she was found to have abnormal vital signs and I have became involved in the case. The patient did not realize that she was in rapid A. fib. She has been feeling weak. She has not been able to get out of her chair this morning. The patient denies any shortness of breath. She has not had fevers or recent illness. Her blood pressure was noted to be in the 70s to 80s systolic range. Her heart rate was in the 140-150 range. Does re port a history of A. fib. She is normally in a sinus rhythm. She has not required cardioversion in the past. She is followed by Dr. Astorga. Home Medications Home Medications Medication Instructions Recorded Confirmed Type allopurinol 100 mg tablet 200 mg PO HS tab 02/15/18 02/03/20 History aspirin 81 mg chewable tablet 81 mg PO HS 02/15/18 02/03/20 History bumetanide 1 mg tablet 1 mg PO QAM 02/15/18 02/03/20 History cholecalciferol (vitamin D3) 25 1,000 units PO QAM 02/15/18 02/03/20 History mcg (1,000 unit) capsule hydralazine 10 mg tablet 10 mg PO TID 02/15/18 02/03/20 History ibuprofen 400 mg tablet 400 mg PO BID 02/15/18 02/03/20 History lisinopril 40 mg tablet 40 mg PO HS 02/15/18 02/03/20 History metoprolol tartrate 100 mg tablet 100 mg PO BID 02/15/18 02/03/20 History multivitamin 1 tab PO HS 02/15/18 02/03/20 History omeprazole 20 mg capsule,delayed 20 mg PO QAM 02/15/18 02/03/20 History release spironolactone 25 mg tablet 25 mg PO QAM 02/15/18 02/03/20 History tramadol 50 mg tablet 50 mg PO QID PRN 02/15/18 02/03/20 History warfarin 7.5 mg tablet 7.5 mg PO SUTUWETHFRSA tab 02/15/18 02/03/20 History levothyroxine 50 mcg capsule 75 mcg PO QAM cap 03/03/18 02/03/20 History metformin 500 mg tablet 2,000 mg PO HS 03/15/18 02/03/20 History amlodipine 10 mg PO QAM 02/03/20 02/03/20 History magnesium oxide 400 mg PO MOWEFR 02/03/20 02/03/20 History repaglinide 0.5 mg PO AC 02/03/20 02/03/20 History rosuvastatin [Crestor] 10 mg PO HS 02/03/20 02/03/20 History warfarin 10 mg PO MO 02/03/20 02/03/20 History Allergies Allergy/AdvReac Type Severity Reaction Status Date / Time Penicillins Allergy Intermediate URTICARIA; Verified 02/03/20 11:07 PER PT, CAN TAKE AMOXICILLIN erythromycin base AdvReac Mild GI UPSET Verified 02/03/20 11:07 Past Med/Surg History Medical History Acute CHF Anemia Atrial fibrillation with RVR CKD stage 3 secondary to diabetes Complicated UTI (urinary tract infection) CVA (cerebral vascular accident) DM II (diabetes mellitus, type II), controlled Dyslipidemia Gastric ulcer Gout H pylori ulcer H/O Moh's micrographic surgery for skin cancer H/O: upper GI bleed Heme positive stool HTN (hypertension) Hypokalemia Hypomagnesemia Infected ulcer of skin Osteoarthritis Surgical History H/O basal cell carcinoma excision H/O left knee surgery H/O repair of rotator cuff History of carpal tunnel surgery Family History Other No pertinent family history Social History Smoking Status: Never smoker Hx Substance Use: No Hearing Ability: Normal marital status: / Current Living Situation: Alone current occupational status: retired Feels Safe at Home: Yes Review of Systems A total of 10 systems reviewed and were otherwise negative Physical Exam Vital Signs Vital Signs - 24 hr 02/03/20 09:25 02/03/20 09:35 02/03/20 09:37 Temperature 37.2 C Temperature Source Oral Pulse Rate 135 H 135 H 133 H Pulse Rate [Apical] Pulse Rate from SpO2 Sensor 133 H Respiratory Rate 21 18 24 Respiratory Effort / Characteristics Non-Labored Spontaneous Respiratory Depth Normal Blood Pressure 88/57 L 87/65 L 87/65 L Blood Pressure [Left Arm] Blood Pressure Mean 83 76 72 Blood Pressure Mean [Left Arm] Blood Pressure Position Sitting Pulse Oximetry 94 94 Oxygen Delivery Method Room Air Oxygen Flow Rate Sepsis Recent Fever Within 48 Hours No Sepsis New/Unexplained Change in Mental Status N/A Sepsis Action Taken by Nursing Adv Provider Notified End-Tidal CO2 End Tidal CO2 (18-54mmHg) 02/03/20 09:50 02/03/20 09:57 02/03/20 10:15 Temperature Temperature Source Pulse Rate 132 H 142 H Pulse Rate [Apical] Pulse Rate from SpO2 Sensor Respiratory Rate 26 H 18 Respiratory Effort / Characteristics Respiratory Depth Blood Pressure 76/55 L Blood Pressure [Left Arm] 84/58 L Blood Pressure Mean 70 Blood Pressure Mean [Left Arm] 66 Blood Pressure Position Pulse Oximetry Oxygen Delivery Method Oxygen Flow Rate Sepsis Recent Fever Within 48 Hours Sepsis New/Unexplained Change in Mental Status Sepsis Action Taken by Nursing End-Tidal CO2 End Tidal CO2 (18-54mmHg) 02/03/20 10:18 02/03/20 10:30 02/03/20 10:36 Temperature Temperature Source Pulse Rate 137 H 137 H 85 Pulse Rate [Apical] 82 Pulse Rate from SpO2 Sensor 124 H 139 H 83 Respiratory Rate 19 18 Respiratory Effort / Characteristics Respiratory Depth Blood Pressure 70/50 L 71/65 L 105/66 Blood Pressure [Left Arm] 105/66 Blood Pressure Mean 63 66 76 Blood Pressure Mean [Left Arm] 79 Blood Pressure Position Pulse Oximetry 99 99 97 Oxygen Delivery Method Nasal Cannula Oxygen Flow Rate 2 Sepsis Recent Fever Within 48 Hours Sepsis New/Unexplained Change in Mental Status Sepsis Action Taken by Nursing End-Tidal CO2 23 27 End Tidal CO2 (18-54mmHg) 02/03/20 10:38 02/03/20 10:45 02/03/20 11:00 Temperature Temperature Source Pulse Rate 83 81 86 Pulse Rate [Apical] 86 71 Pulse Rate from SpO2 Sensor 87 86 89 Respiratory Rate 18 18 Respiratory Effort / Characteristics Respiratory Depth Blood Pressure 116/56 L 104/58 L 100/45 L Blood Pressure [Left Arm] 116/56 L 104/58 L Blood Pressure Mean 77 69 56 Blood Pressure Mean [Left Arm] 76 73 Blood Pressure Position Pulse Oximetry 96 99 95 Oxygen Delivery Method Nasal Cannula Nasal Cannula Oxygen Flow Rate 2 2 Sepsis Recent Fever Within 48 Hours Sepsis New/Unexplained Change in Mental Status Sepsis Action Taken by Nursing End-Tidal CO2 27 25 21 End Tidal CO2 (18-54mmHg) 28 02/03/20 11:15 02/03/20 11:30 02/03/20 11:45 Temperature Temperature Source Pulse Rate 85 85 89 Pulse Rate [Apical] Pulse Rate from SpO2 Sensor 84 81 98 H Respiratory Rate Respiratory Effort / Characteristics Respiratory Depth Blood Pressure 110/52 L 103/56 L 113/53 L Blood Pressure [Left Arm] Blood Pressure Mean 73 87 69 Blood Pressure Mean [Left Arm] Blood Pressure Position Pulse Oximetry 100 96 100 Oxygen Delivery Method Oxygen Flow Rate Sepsis Recent Fever Within 48 Hours Sepsis New/Unexplained Change in Mental Status Sepsis Action Taken by Nursing End-Tidal CO2 26 25 28 End Tidal CO2 (18-54mmHg) CONSTITUTIONAL/VITAL SIGNS: Reviewed / noted above. GENERAL: Non-toxic in appearance. Obese INTEGUMENTARY: Warm, dry, and [place]. HEAD: Normocephalic. EYES: without scleral icterus or trauma. ENT/OROPHARYNX: clear and moist. LYMPHADENOPATHY/NECK: Is supple without lymphadenopathy or meningismus. RESPIRATORY: Lungs clear and equal. CARDIOVASCULAR: Tachycardic rate and irregular rhythm. GI/ABDOMEN: Soft and nontender. No organomegaly or pulsatile mass. No rebound or guarding. Normal bowel sounds. EXTREMITIES: Warm and well perfused. BACK: No CVA tenderness. NEUROLOGICAL: Intact without focal deficits. PSYCHIATRIC: normal affect. MUSCULOSKELETAL: Normally developed with good muscle tone. TRIAGE NURSING DOCUMENTATION REVIEWED. Procedures Free Text Procedures Electrical cardioversion Reason: A. fib with RVR with heart rate in the 1 40-1 50 range with hypotension with blood pressures in the 70-80 systolic range Written consent was performed and the patient was made aware of her condition. The patient was sedated with etomidate 10 mg IV. The patient was synchronized cardioverted with 50 and then 100 J of energy with success at the 100 J level of converting the patient to a sinus rhythm. No complication. Tolerated well. Course Administered Medications Discontinued Medications Etomidate (Etomidate 2 Mg/Ml 20 Ml Vial) Confirm Administered Dose 40 mg IV .STK-MED ONE Stop: 02/03/20 10:18 Last Increment: 02/03/20 11:05 Dose: 10 mg Documented by: [id number] Sodium Chloride (Nss 1000ml) 1,000 mls @ 250 mls/hr IV .Q4H MONIKA Stop: 03/04/20 09:59 Last Admin: 02/03/20 10:20 Dose: 250 mls/hr Documented by: [id number] Phytonadione (Phytonadione 5 Mg Tab) 2.5 mg PO NOW STA Stop: 02/03/20 12:11 Last Admin: 02/03/20 12:20 Dose: 2.5 mg Documented by: [id number] Critical Care Time Critical Care Time: Yes Total Critical Care Time: 30 I have personally spent 30 minutes of critical care time in the direct management of this patient. This includes bedside care, interpretation of diagnostic studies, and testing, discussion with consultants, patient, and family members, and other required patient management activities. This 30 minutes is in excess of all separately billable procedures. Medical Decision Making Differential Diagnosis The differential that was considered includes acute myocardial infarction, acute coronary syndrome, myocarditis, pericarditis, pericardial effusions /tamponade, esophageal perforation, thoracic aortic dissection, pulmonary embolism, pneumonia, pneumothorax, pancreatitis, shingles, acute cholecystitis, perforated abdominal viscus. Medical Records Attestation: I reviewed the patient's medical records. Home Medications Current Medication List: was personally reviewed by me Laboratory Data Attestation: I reviewed the patient's lab results. Result diagrams: 02/03/20 10:10 02/03/20 10:10 Lab Results 02/03/20 02/03/20 02/03/20 Range/Units 10:10 10:10 10:10 WBC 14.10 H (4.8-10.8) K/uL RBC 3.91 L (4.2-5.4) M/uL Hgb 10.5 L (12.0-16.0) g/dL Hct 32.6 L (37-47) % MCV 83.4 (80-100) fL MCH 26.9 (25-34) pg MCHC 32.2 (32-36) g/dL RDW Std Deviation 47.9 H (36.4-46.3) fL RDW Coeff of Yvette 15.7 H (11.5-14.5) % Plt Count 266 (130-400) K/uL MPV 10.5 H (7.4-10.4) fL Immature Gran % (Auto) 0.2 % Neut % (Auto) 93.4 % Lymph % (Auto) 4.5 % [place] % (Auto) 1.8 % Eos % (Auto) 0.1 % Baso % (Auto) 0.0 % Neut # (Auto) 13.17 H (1.4-6.5) K/uL Lymph # (Auto) 0.63 L (1.2-3.4) K/uL [place] # (Auto) 0.26 (0.11-0.59) K/uL Eos # (Auto) 0.01 (0-0.5) K/uL Baso # (Auto) 0.00 (0-0.2) K/uL Immature Gran # (Auto) 0.03 H (0.00-0.02) K/uL Absolute Nucleated RBC 0.03 H (0-0) K/uL Nucleated RBC % (auto) 0.2 % PT 81.3 H (9.0-12.0) Seconds INR 8.7 H* (0.9-1.1) Sodium 135 L (136-145) mmol/L Potassium 4.1 (3.5-5.1) mmol/L Chloride 101 (98-107) mmol/L Carbon Dioxide 22 (21-32) mmol/L Anion Gap 12.0 H (3-11) BUN 55 H (7-18) mg/dl Creatinine 2.62 H (0.6-1.2) mg/dl Est Cr Clr Drug Dosing 26.9 ml/min Est GFR ( Amer) 20.8 Est GFR (Non-Af Amer) 17.9 BUN/Creatinine Ratio 20.8 H (10-20) Glucose 169 H (70-99) mg/dl Calcium 8.8 (8.5-10.1) mg/dl Total Bilirubin 0.5 (0.2-1) mg/dl Direct Bilirubin 0.2 (0-0.2) mg/dl AST 23 (15-37) U/L ALT 19 (12-78) U/L Alkaline Phosphatase 88 (45-117) U/L Troponin I < 0.015 (0-0.045) ng/ml Total Protein 7.0 (6.4-8.2) gm/dl Albumin 2.2 L (3.4-5.0) gm/dl Globulin 4.8 H (2.5-4.0) gm/dl Albumin/Globulin Ratio 0.5 L (0.9-2) TSH 1.820 (0.300-4.500) uIu/ml ECG Data Attestation: I personally reviewed and interpreted this ECG as follows: Indication: + tachycardia Rate (beats per minute): 145 Rhythm: + atrial fibrillation ECG ST segments: no ST elevation ECG Findings: no PVCs Blood Pressure Blood Pressure Findings: Low blood pressure MDM Narrative The patient presents with A. fib with RVR with hypotension. She was synchronized electrically cardioverted to a normal sinus rhythm with improvement of her vital signs. Her laboratory studies suggest acute renal failure. She also has an elevated INR of 8. The patient was hemodynamically stable after the cardioversion. She will be seen by the hospitalist for further inpatient evaluation and care. Impression & Plan Atrial fibrillation with RVR, Acute renal failure, Elevated INR Discharge Plan Visit Data Chief Complaint: Back Injury/Pain ED Provider: Gordo Greenberg ED Midlevel Provider: Binh Escalante Discharge Problem: Atrial fibrillation with RVR, Acute renal failure, Elevated INR Patient Disposition: Being Evaluated by Hospitalist Forms Stand Alone Forms: [facility] Prescriptions Prescriptions: No Action allopurinol 100 mg tablet 200 mg PO HS RF: 0 aspirin 81 mg tablet,chewable 81 mg PO HS RF: 0 bumetanide 1 mg tablet 1 mg PO QAM RF: 0 cholecalciferol (vitamin D3) 1,000 unit capsule 2,000 units PO QAM RF: 0 hydralazine 10 mg tablet 10 mg PO TID RF: 0 ibuprofen 400 mg tablet 400 mg PO BID RF: 0 lisinopril 40 mg tablet 40 mg PO HS RF: 0 metoprolol tartrate 100 mg tablet 100 mg PO BID RF: 0 multivitamin [Multiple Vitamins] tablet 1 tab PO HS RF: 0 omeprazole 20 mg capsule,delayed release(DR/EC) 20 mg PO QAM RF: 0 spironolactone 25 mg tablet 25 mg PO QAM RF: 0 tramadol 50 mg tablet 50 mg PO QID PRN (Reason: pain) RF: 0 warfarin 7.5 mg tablet 7.5 mg PO SUTUWETHFRSA RF: 0 levothyroxine 50 mcg capsule 50 mcg PO QAM RF: 0 metformin 500 mg tablet 2,000 mg PO HS RF: 0 repaglinide 0.5 mg Tablet 0.5 mg PO AC RF: 0 amlodipine 10 mg Tablet 10 mg PO QAM RF: 0 warfarin 5 mg Tablet 10 mg PO MO RF: 0 rosuvastatin [Crestor] 10 mg Tablet 10 mg PO HS RF: 0 magnesium oxide 400 mg magnesium Capsule 400 mg PO MOWEFR RF: 0 Referrals Referrals: Micah Whitmore MD [Primary Care Provider] - Discharge Problem: Acute renal failure Qualifiers: Acute renal failure type: unspecified Qualified Code(s): N17.9 - Acute kidney failure, unspecified
--- NOTE | 2020-02-03 12:52 | History & Physical Report ---
Date of Service February 03, 2020 Assessment & Plan (1) Atrial fibrillation with RVR: (2) Hypotension: Patient presented via EMS to the ED with complaint of back pain. Upon initial evaluation, she was found to have hemodynamically unstable AFib with RVR and hypotension. She was cardioverted in the ED and returned to sinus rhythm. She was also given IV fluids. BP improved slightly. Admit to Tele for further monitoring and workup. Continue close cardiac monitoring for recurrent AFib Hold Coumadin. Hold home BP medications pending improvement in BP Hold home diuretics for now due to ARF Check Echocardiogram Cardiology consultation US AAA Screen Continue fluids (3) Supratherapeutic INR: (4) Chronic anemia: Patient with chronic baseline anemia which is slightly worse on admission. INR supratherapeutic- likely secondary to decreased appetite and ? infection Dr. Tadeo discussed this patient with Dr. Lino in Cardiology. Recommended PO Vitamin K 2.5 mg x 1 Cardiology consulted. Continue to trend INR & monitor for signs of bleeding. Avoid NSAIDs Monitor CBC (5) Acute renal failure: (6) CKD (chronic kidney disease), stage III: Creatinine 2.62 upon presentation. Baseline creatinine 0.9. Likely multifactorial since patient has been taking a lot of Ibuprofen as an outpatient, has had poor PO intake, and may have an infection. Continue IV fluids Trend renal function Urinalysis and culture ordered/pending collection Check Mag/Phos KUB ordered Nephrology consultation (7) Venous stasis ulcers of both lower extremities: (8) Chronic venous insufficiency: Chronic appearing changes of the b/l LE. No warmth to indicate this as current source of infection but possible Consult wound care nurse while inpatient. Consider culture of wounds on LLE ( very small) No SCDs for now because of these ulcerations. (9) DM type 2 (diabetes mellitus, type 2): Last A1C was 6.2 on 10/17/19 Hold home PO DM meds Sliding scale insulin while inpatient Recheck A1C in AM (10) Hypothyroid: TSH ordered with Afib RVR Continue levothyroxine (11) Morbid obesity: (12) Ambulatory dysfunction: (13) Low back pain: Patient with chronic low back pain that acutely worsened over the past few days. Less ambulation at home because of back pain over the past few days as well. Check X-Rays of the right hip, pelvis & lower back to assess for any compression type injuries/fractures. Avoid CT for now due to renal fxn. PRN pain medications ordered. PT/OT (14) Leukocytosis: (15) Metabolic acidosis, increased anion gap: WBC Count 14K Possibly infection causing acidosis and leukocytosis. Uncertain source. Possibly urinary with slight retention and low back pain over the past few days. Empirically start Zosyn Blood cultures Urine culture pending collection Check ESR, CRP, Procalcitonin (16) DVT prophylaxis: HOLD DVT prophylaxis at this time with supratherapeutic INR. Encourage ambulation History of Present Illness Chief Complaint: Back pain, AFib w/RVR s/p cardioversion in the ED Primary Care Provider: Micah Whitmore MD Patient is a 69 yo female with history of DM Type 2, Hypothyroidism, hyperlipidemia, Paroxysmal AFib, EDYTA on CPAP, CKD III, Pulmonary HTN, Chronic low back pain, and history of CVA who presented to the ED via EMS with a few days of excruciating Right lower back pain. She states that 3 weeks ago, she knew she was in AFib, but she thought it subsided on it's own. She did also have a cold at that time. The cold symptoms subsided. Over the past few days, she noted that she was back in Afib, and her back started to increase compared to baseline. She typically has low back pain for which she takes Tramadol PRN (usually twice daily), Ibuprofen, and has had injections outpatient by Dr. Cloud in the past as well. The pain that she had this morning was much worse than usual. No radiation into her legs or abdomen. She also notes that over the past few days, she has been urinating less than normal, and her appetite has been poor. She has not been drinking much at all. She did have severe sweats with her pain last night and this morning but no chills. No headache, myalgia, dysphagia, abdominal pain, N/V/D, dysuria, or leg edema. She does have chronic l ower extremity discoloration and wounds on and off that will not heal. No recent issues with her lower legs out of the norm. No recent infections. She also has a very large bruise on her lower abdomen which she thinks she sustained today getting here. Upon presentation to the ED, she was noted to be hypotensive in AFib w/RVR. She was cardioverted in the ED and converted to NSR. She was also given IV fluids. On lab evaluation, her INR was noted to be supratherapeutic at 8.7WBC count elevated, creatinine 2.62. No urine sample collected yet. Slight anemia with Hgb 10.5- little lower than baseline chronic anemia. Last outpatient Echocardiogram was completed in 2018 & showed mild LVH, Grade II diastolic dysfunction, EF 55-60%. She follows with Dr. Foster for outpatient Cardiology. Her INR on 01/23/20 was 2.4 outpatient. Allergies Allergy/AdvReac Type Severity Reaction Status Date / Time Penicillins Allergy Intermediate URTICARIA; Verified 02/03/20 11:07 PER PT, CAN TAKE AMOXICILLIN erythromycin base AdvReac Mild GI UPSET Verified 02/03/20 11:07 Home Medications Home Medications Medication Instructions Recorded Confirmed Type allopurinol 100 mg tablet 200 mg PO HS tab 02/15/18 02/03/20 History aspirin 81 mg chewable tablet 81 mg PO HS 02/15/18 02/03/20 History bumetanide 1 mg tablet 1 mg PO QAM 02/15/18 02/03/20 History cholecalciferol (vitamin D3) 25 2,000 units PO QAM 02/15/18 02/03/20 History mcg (1,000 unit) capsule hydralazine 10 mg tablet 10 mg PO TID 02/15/18 02/03/20 History ibuprofen 400 mg tablet 400 mg PO BID 02/15/18 02/03/20 History lisinopril 40 mg tablet 40 mg PO HS 02/15/18 02/03/20 History metoprolol tartrate 100 mg tablet 100 mg PO BID 02/15/18 02/03/20 History multivitamin 1 tab PO HS 02/15/18 02/03/20 History omeprazole 20 mg capsule,delayed 20 mg PO QAM 02/15/18 02/03/20 History release spironolactone 25 mg tablet 25 mg PO QAM 02/15/18 02/03/20 History tramadol 50 mg tablet 50 mg PO QID PRN 02/15/18 02/03/20 History warfarin 7.5 mg tablet 7.5 mg PO SUTUWETHFRSA tab 02/15/18 02/03/20 History levothyroxine 50 mcg capsule 50 mcg PO QAM cap 03/03/18 02/03/20 History metformin 500 mg tablet 2,000 mg PO HS 03/15/18 02/03/20 History amlodipine 10 mg PO QAM 02/03/20 02/03/20 History magnesium oxide 400 mg PO MOWEFR 02/03/20 02/03/20 History repaglinide 0.5 mg PO AC 02/03/20 02/03/20 History rosuvastatin [Crestor] 10 mg PO HS 02/03/20 02/03/20 History warfarin 10 mg PO MO 02/03/20 02/03/20 History Past Med/Surg History Medical History Acute CHF Anemia Atrial fibrillation with RVR CKD stage 3 secondary to diabetes Complicated UTI (urinary tract infection) Complicated UTI (urinary tract infection) CVA (cerebral vascular accident) Dizziness DM II (diabetes mellitus, type II), controlled Dyslipidemia Gastric ulcer Gastric ulcer due to Helicobacter pylori Gout H pylori ulcer H/O Moh's micrographic surgery for skin cancer H/O: upper GI bleed Heme positive stool HTN (hypertension) Hx of basal cell carcinoma Hypokalemia Hypomagnesemia Infected ulcer of skin Infected ulcer of skin Osteoarthritis Surgical History H/O basal cell carcinoma excision H/O left knee surgery H/O repair of rotator cuff History of arthroplasty of left knee History of carpal tunnel surgery History of carpal tunnel surgery Status post Mohs surgery Family History Mother Heart disease Diabetes Father Stroke Hypertension Other No pertinent family history Social History Smoking Status: Never smoker Second Hand Exposure: No; Do You Dip or Chew Tobacco: No; Tobacco Cessation Education Requested by Patient: No Hx Alcohol Use: Yes Alcohol type: wine Hx Substance Use: No Preferred Language: Slovenian Communication Ability: Effective Hearing Ability: Normal 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 Machine Operator Required: No Beliefs That Will Affect Care: None marital status: / Current Living Situation: Alone current occupational status: retired Other Information That Helps Us Care for You: No Feels Safe at Home: Yes Assistive Devices: Cane, CPAP, Denture - Upper, Denture - Lower and Glasses Review of Systems Review of Systems: All systems reviewed & are unremarkable except as noted in HPI & below Physical Exam Constitutional: + ill appearing and + morbidly obese; no acute distress Eyes: PERRL, conjunctivae normal, anicteric sclerae ENMT: external ear and nose normal, oropharynx normal Neck: trachea midline, no thyromegaly Respiratory: normal respiratory effort, lungs clear to auscultation Cardiovascular: Rate/Rhythm: regular rate and regular rhythm Heart Sounds: no gallop and no murmur Gastrointestinal (Abdomen): normal bowel sounds, soft, nontender, no hepatosplenomegaly Musculoskeletal: Head/Neck/Chest: normocephalic, head atraumatic and neck supple Extremities: no joint enlargement and no cyanosis Skin: B/L LE with venous stasis dermatitis. L>R. LLE with very mild erythema without warmth. Very small ulceration on anterior tibial surface. Very large ecchymosis on the lower abdomen. Neurologic: PERRL, EOMI, accommodation nl, no face palsy, no dysarthria Psychiatric: A+Ox3, euthymic affect Results & Data Results & Data ([facility]) Vital Signs (Past 12 Hours) Vital Signs Temp Pulse Pulse Resp BP BP Pulse Ox 02/03/20 12:45 90 96/53 L 91 02/03/20 12:30 91 H 108/55 L 94 02/03/20 12:15 92 H 116/50 L 02/03/20 12:00 81 112/66 02/03/20 11:45 89 113/53 L 100 02/03/20 11:30 85 103/56 L 96 02/03/20 11:15 85 110/52 L 100 02/03/20 11:00 86 100/45 L 95 02/03/20 10:45 81 71 18 104/58 L 104/58 L 99 02/03/20 10:38 83 86 18 116/56 L 116/56 L 96 02/03/20 10:36 85 82 18 105/66 105/66 97 02/03/20 10:30 137 H 71/65 L 99 02/03/20 10:18 137 H 19 70/50 L 99 02/03/20 10:15 142 H 18 02/03/20 09:57 84/58 L 02/03/20 09:50 132 H 26 H 76/55 L 02/03/20 09:37 37.2 C 133 H 24 87/65 L 94 02/03/20 09:35 135 H 18 87/65 L 94 02/03/20 09:25 135 H 21 88/57 L Laboratory Results Laboratory Results - last 24 hr 02/03/20 02/03/20 02/03/20 10:10 10:10 10:10 WBC 14.10 H RBC 3.91 L Hgb 10.5 L Hct 32.6 L MCV 83.4 MCH 26.9 MCHC 32.2 RDW Std Deviation 47.9 H RDW Coeff of Yvette 15.7 H Plt Count 266 MPV 10.5 H Immature Gran % (Auto) 0.2 Neut % (Auto) 93.4 Lymph % (Auto) 4.5 [place] % (Auto) 1.8 Eos % (Auto) 0.1 Baso % (Auto) 0.0 Neut # (Auto) 13.17 H Lymph # (Auto) 0.63 L [place] # (Auto) 0.26 Eos # (Auto) 0.01 Baso # (Auto) 0.00 Immature Gran # (Auto) 0.03 H Absolute Nucleated RBC 0.03 H Nucleated RBC % (auto) 0.2 PT 81.3 H INR 8.7 H* Sodium 135 L Potassium 4.1 Chloride 101 Carbon Dioxide 22 Anion Gap 12.0 H BUN 55 H Creatinine 2.62 H Est Cr Clr Drug Dosing 26.9 Est GFR ( Amer) 20.8 Est GFR (Non-Af Amer) 17.9 BUN/Creatinine Ratio 20.8 H Glucose 169 H Calcium 8.8 Total Bilirubin 0.5 Direct Bilirubin 0.2 AST 23 ALT 19 Alkaline Phosphatase 88 Troponin I < 0.015 Total Protein 7.0 Albumin 2.2 L Globulin 4.8 H Albumin/Globulin Ratio 0.5 L TSH 1.820 Code Status & VTE Plan VTE Prophylaxis Plan VTE Prophylaxis will be ordered: No Supervising Physician Co-Signing Physician Notes I, Dr. Lon Tadeo, have seen and examined the patient Juanpablo Paulino and also discussed the plans with physician data entry assistant On Physical Exam General: s/p cardioversion in the ED, no acute distress, speaking in full sentences, obese Heart: regular rate, appears to be in sinus rhythm Lung: no crackles, no wheezing Abdomen: soft, nontender Back: no flank tenderness, ED physician data entry assistant that patients back pain is sacroiliac area Neuro, Extremites: able to move the upper and lower extremities Assessment and Plan -Atrial Fibrillation with Hypotension: This is a 69 year old female with recent poor appetite who reports of acute low back pain and when she was at home she reports back pain was associated with sweating and she called EMS to bring her to ED on 02/03/2020. Patient denies any feeling of cardiac or respiratory symptoms or fevers but when she was evaluated in the ED patient was found to have atrial fibrillation with rapid ventricular response and hypotension. ED provider provided direct current cardioversion and the patient returned to sinus rhythm. Patient also given IV fluids with subsequent improvements with blood pressure. Continue IV fluids and hold home dose anti-hypertensive medications and home dose diuretics for now. Check serum magnesium levels and TSH. Telemetry monitoring. Echocardiogram ordered. Discussed with cardiology Dr. Lino. -supratherapeutic INR, chronic anemia: on presentation the INR 8.7. discussed with cardiology Dr. Lino who recommended giving oral vitamin K 2.5 mg x 1 on 02/03/2020. Trend the INR. Avoid other pharmacological DVT prophylaxis due to e levated INR. Avoid NSAIDs. Monitor the CBC -venous stasis ulcers of lower extremities: wound care, wound culture. Hold off SCDs for now because of supratherapeutic INR and venous ulcers -Leukocytosis and metabolic anion gap acidosis: WBC of 14,000. Anion gap of 12. Give fluids, send blood cultures and pro-inflammatory markers, start empiric Zosyn, monitor the anion gap, check lactic acid and creatinine kinase -Acute renal failure: creatinine of 2.62 on admission. Give IV fluids, trend the renal function, KUB ordered, nephrology consult Type 2 diabetes mellitus without intermediate designer current use of insulin: hold home dose oral diabetes mellitus medications, sliding scale insulin while inpatient History of Hypothyroidism: her home medication is levoythroxine 50 mcg daily, check thyroid function tests Morbid Obesity with BMI of 57, Ambulatory dysfunction, Acute Low Back Pain: patient reports recently less ambulation at home because of back pain, X ray of spine/hip/pelvis ordered, prn pain medications, PT/OT evaluations -Full Code -agree with other assessment and plans as documented by physician data entry assistant -My colleague Dr. Sarabia will be the hospitalist attending starting on 02/04/2020 (1) Acute renal failure Acute renal failure type: unspecified Qualified Code(s): N17.9 - Acute kidney failure, unspecified
[2020-02-03] MEDS ORDERED: PIPERACILLIN/TAZOBACTAM 3.375 GM in DEXTROSE 5% 100 ML/100 ML BAG IV ONE (13:00)
--- NOTE | 2020-02-03 13:09 | Cardiology Consultation ---
Date of Consultation February 03, 2020 Assessment & Plan (1) Low back pain: (2) Ambulatory dysfunction: (3) Morbid obesity: (4) Supratherapeutic INR: (5) Atrial fibrillation with RVR: The patient is currently hemodynamically stable and the plan is for her to be admitted to a telemetry floor. In regard to her supratherapeutic INR of 8.1, I would recommend giving her some oral vitamin K. I would not give her a large dose as we would not want her to be calm subtherapeutic since she was cardioverted. Vitamin K 2.5 mg p.o. may be enough. I certainly would continue to draw daily INRs and provide additional vitamin K as needed less the patient has an acute bleeding episode. History of Present Illness History of Present Illness This is a 69-year-old morbidly obese female with the past medical history as outlined below. She usually follows with Dr. Foster through our clinic with a history of diastolic heart failure and paroxysmal atrial fibrillation. She has chronic low back pain which is treated by the pain clinic. She is also been ill recently with a cold. She presented to the emergency department with severe low back discomfort and was found to have a super therapeutic INR and atrial fibrillation with RVR with some instability. The patient was cardioverted by the emergency department physician to normal sinus rhythm where she currently remains. She has no other cardiac complaints. She denies shortness of breath or chest pain. She has had no recent dizziness or lightheadedness. She actually states she was unaware of the atrial fibrillation when she came to the emergency department. Past Medical/Surgical History: 1.Paroxysmal atrial fibrillation 2.Difficult to control hypertension 3.Diastolic congestive heart failure 4.Chronic lower extremity peripheral edema 5.Nocturnal hypoxemia, obstructive sleep apnea treated with CPAP and 2 LPM O2. 6.Type 2 diabetes mellitus with diabetic leg ulcers 7.Stage III chronic kidney disease 8.Dyslipidemia. 9.Gout 10.Anemia 11.Osteoarthritis 12.Gastric ulcer, H. pylori infection 13.Carpal tunnel syndrome 14.Right shoulder repair 15.Tonsillectomy/adenoidectomy as a child 16.Basal cell carcinoma-hairline, Mohs surgery 17.Carpal tunnel surgery 18.Left knee replacement, 2004 Allergies Allergy/AdvReac Type Severity Reaction Status Date / Time Penicillins Allergy Intermediate URTICARIA; Verified 02/03/20 11:07 PER PT, CAN TAKE AMOXICILLIN erythromycin base AdvReac Mild GI UPSET Verified 02/03/20 11:07 Home Medications Home Medications Medication Instructions Recorded Confirmed Type allopurinol 100 mg tablet 200 mg PO HS tab 02/15/18 02/03/20 History aspirin 81 mg chewable tablet 81 mg PO HS 02/15/18 02/03/20 History bumetanide 1 mg tablet 1 mg PO QAM 02/15/18 02/03/20 History cholecalciferol (vitamin D3) 25 2,000 units PO QAM 02/15/18 02/03/20 History mcg (1,000 unit) capsule hydralazine 10 mg tablet 10 mg PO TID 02/15/18 02/03/20 History ibuprofen 400 mg tablet 400 mg PO BID 02/15/18 02/03/20 History lisinopril 40 mg tablet 40 mg PO HS 02/15/18 02/03/20 History metoprolol tartrate 100 mg tablet 100 mg PO BID 02/15/18 02/03/20 History multivitamin 1 tab PO HS 02/15/18 02/03/20 History omeprazole 20 mg capsule,delayed 20 mg PO QAM 02/15/18 02/03/20 History release spironolactone 25 mg tablet 25 mg PO QAM 02/15/18 02/03/20 History tramadol 50 mg tablet 50 mg PO QID PRN 02/15/18 02/03/20 History warfarin 7.5 mg tablet 7.5 mg PO SUTUWETHFRSA tab 02/15/18 02/03/20 History levothyroxine 50 mcg capsule 50 mcg PO QAM cap 03/03/18 02/03/20 History metformin 500 mg tablet 2,000 mg PO HS 03/15/18 02/03/20 History amlodipine 10 mg PO QAM 02/03/20 02/03/20 History magnesium oxide 400 mg PO MOWEFR 02/03/20 02/03/20 History repaglinide 0.5 mg PO AC 02/03/20 02/03/20 History rosuvastatin [Crestor] 10 mg PO HS 02/03/20 02/03/20 History warfarin 10 mg PO MO 02/03/20 02/03/20 History Patient History Medical History Acute CHF Anemia Atrial fibrillation with RVR CKD stage 3 secondary to diabetes Complicated UTI (urinary tract infection) Complicated UTI (urinary tract infection) CVA (cerebral vascular accident) Dizziness DM II (diabetes mellitus, type II), controlled Dyslipidemia Gastric ulcer Gastric ulcer due to Helicobacter pylori Gout H pylori ulcer H/O Moh's micrographic surgery for skin cancer H/O: upper GI bleed Heme positive stool HTN (hypertension) Hx of basal cell carcinoma Hypokalemia Hypomagnesemia Infected ulcer of skin Infected ulcer of skin Osteoarthritis Surgical History H/O basal cell carcinoma excision H/O left knee surgery H/O repair of rotator cuff History of arthroplasty of left knee History of carpal tunnel surgery History of carpal tunnel surgery Status post Mohs surgery Family History Mother Heart disease Diabetes Father Stroke Hypertension Other No pertinent family history Social History Smoking Status: Never smoker Second Hand Exposure: No; Do You Dip or Chew Tobacco: No; Tobacco Cessation Education Requested by Patient: No Hx Alcohol Use: Yes Alcohol type: wine Hx Substance Use: No Preferred Language: Welsh Communication Ability: Effective Hearing Ability: Normal Search Engine Optimization Strategist Required: No Beliefs That Will Affect Care: None marital status: / Current Living Situation: Alone current occupational status: retired Other Information That Helps Us Care for You: No Feels Safe at Home: Yes Assistive Devices: Cane and Walker Review of Systems Review of Systems: All systems reviewed & are unremarkable except as noted in HPI & below Nothing additional to add. Physical Exam Physical Exam: General: no acute distress and stated age, morbidly obese female Head: normocephalic, no masses, lesions, tenderness or abnormalities Eyes: conjunctiva are pink and non-injected, sclera clear Neck: supple, no adenopathy, no bruits, normal jugular venous pulse, no hepatojugular reflux Chest: normal shape and normal respiratory effort Lungs: clear to auscultation and percussion Cardiac Exam: - regular rate & rhythm, no murmurs gallops or rubs - normal S1, normal S2 Pulses: 2(+) throughout Abdomen: abdomen soft, non-tender, no abnormal masses and no hepatosplenomegaly Musculoskeletal: no gait disturbance, no joint inflammation, no deforming arthritis Extremities: no edema and no cyanosis Neuro: grossly normal exam Results & Data ([facility]) Vital Signs (Past 12 Hours) Vital Signs Temp Pulse Pulse Resp BP BP Pulse Ox 02/03/20 12:45 90 96/53 L 91 02/03/20 12:30 91 H 108/55 L 94 02/03/20 12:15 92 H 116/50 L 02/03/20 12:00 81 112/66 02/03/20 11:45 89 113/53 L 100 02/03/20 11:30 85 103/56 L 96 02/03/20 11:15 85 110/52 L 100 02/03/20 11:00 86 100/45 L 95 02/03/20 10:45 81 71 18 104/58 L 104/58 L 99 02/03/20 10:38 83 86 18 116/56 L 116/56 L 96 02/03/20 10:36 85 82 18 105/66 105/66 97 02/03/20 10:30 137 H 71/65 L 99 02/03/20 10:18 137 H 19 70/50 L 99 02/03/20 10:15 142 H 18 02/03/20 09:57 84/58 L 02/03/20 09:50 132 H 26 H 76/55 L 02/03/20 09:37 37.2 C 133 H 24 87/65 L 94 02/03/20 09:35 135 H 18 87/65 L 94 02/03/20 09:25 135 H 21 88/57 L Laboratory Results Laboratory Results - last 24 hr 02/03/20 02/03/20 02/03/20 10:10 10:10 10:10 WBC 14.10 H RBC 3.91 L Hgb 10.5 L Hct 32.6 L MCV 83.4 MCH 26.9 MCHC 32.2 RDW Std Deviation 47.9 H RDW Coeff of Yvette 15.7 H Plt Count 266 MPV 10.5 H Immature Gran % (Auto) 0.2 Neut % (Auto) 93.4 Lymph % (Auto) 4.5 [place] % (Auto) 1.8 Eos % (Auto) 0.1 Baso % (Auto) 0.0 Neut # (Auto) 13.17 H Lymph # (Auto) 0.63 L [place] # (Auto) 0.26 Eos # (Auto) 0.01 Baso # (Auto) 0.00 Immature Gran # (Auto) 0.03 H Absolute Nucleated RBC 0.03 H Nucleated RBC % (auto) 0.2 PT 81.3 H INR 8.7 H* Sodium 135 L Potassium 4.1 Chloride 101 Carbon Dioxide 22 Anion Gap 12.0 H BUN 55 H Creatinine 2.62 H Est Cr Clr Drug Dosing 26.9 Est GFR ( Amer) 20.8 Est GFR (Non-Af Amer) 17.9 BUN/Creatinine Ratio 20.8 H Glucose 169 H Calcium 8.8 Total Bilirubin 0.5 Direct Bilirubin 0.2 AST 23 ALT 19 Alkaline Phosphatase 88 Troponin I < 0.015 Total Protein 7.0 Albumin 2.2 L Globulin 4.8 H Albumin/Globulin Ratio 0.5 L TSH 1.820 Medications Administered Current Inpatient Medications Acetaminophen (Acetaminophen 325 Mg Tab) 325 mg PO Q6H PRN PRN Reason: Pain or Fever Stop: 03/04/20 12:29 Diphenhydramine HCl (Diphenhydramine Hcl 50 Mg/Ml Vial) 12.5 mg IV Q12 PRN PRN Reason: Allergic Reaction Stop: 03/04/20 12:29 Hydromorphone HCl (Hydromorphone Inj 0.5 Mg/0.5 Ml Syr) 0.5 mg IV Q8H PRN PRN Reason: Severe Pain Stop: 02/17/20 12:19 Last Admin: 02/03/20 12:52 Dose: 0.5 mg Documented by: Promethazine HCl 6.25 mg/ (Sodium Chloride) 50.25 mls @ 201 mls/hr IV Q6H PRN PRN Reason: Nausea And Vomiting Stop: 03/04/20 12:19 Sodium Chloride (Nss 1000ml) 1,000 mls @ 100 mls/hr IV .Q10H MONIKA Stop: 02/03/20 22:29 Piperacillin Sod/Tazobactam (Sod 3.375 gm/ Dextrose) 100 ml in 115 mls @ 230 mls/hr IV NOW ONE Stop: 02/03/20 13:29 Miscellaneous Information (Piperacill/Tazobac Consult Active) 1 ea N/A UD PRN PRN Reason: Consult Stop: 03/04/20 12:28 Oxycodone HCl (Oxycodone Hcl Ir 5 Mg Tab (Immediate Release)) 5 mg PO Q6H PRN PRN Reason: Moderate Pain Stop: 02/17/20 12:18
--- NOTE | 2020-02-03 14:21 | XRay Report ---
XR chest 1V portable HISTORY: afib s/p cardioversion COMPARISON: Chest 07/19/2017. FINDINGS: The heart remains mildly enlarged. No pleural effusions. No pneumothorax. No new focal lung consolidations to suggest pneumonia. No evidence for pulmonary edema. Stable right hilar enlargement . IMPRESSION: No change compared to the prior study. No acute process within the chest. Stable cardiomegaly and rig ht hilar enlargement. ACT 112: Negative or not required by law. Electronically signed by: Suhail Nolen M.D. 02/03/2020 2:20 PM
[2020-02-03] MEDS ORDERED: GLUCOSE 40% GEL 15 GM TUBE PO PRN (14:27)
[2020-02-03] MEDS ORDERED: DEXTROSE 50% 50 ML SYRINGE IV PRN (14:27)
[2020-02-03] MEDS ORDERED: CARBOHYDRATES FOR HYPOGLYCEMIA PO PRN (14:27)
[2020-02-03] MEDS ORDERED: GLUCOSE 10 TABS/TUBE PO PRN (14:27)
[2020-02-03] MEDS ORDERED: GLUCAGON FOR INJ 1 MG VIAL SQ PRN (14:27)
[2020-02-03 14:40] LABS: Albumin Level 2.2 gm/dl (3.4-5.0); BUN Creatinine Ratio 22.5 (10-20); Calcium 8.4 mg/dl (8.5-10.1); Creatinine Clr Calc Pharmacy 29.4 ml/min; Est GFR (African American) 23.1; Est GFR (Non-African American) 19.9; Magnesium 1.3 mg/dl (1.8-2.4); Potassium 3.7 mmol/L (3.5-5.1)
[2020-02-03 14:51] LABS: Appearance Urine Cloudy (Clear); Bacteria Urine Automated 2+ (Negative); Blood Urine Negative (Negative); Color Urine Dark Yellow; Epithelial Cell Urine Auto >30 /lpf (0-5); Glucose Urine UA Negative (Negative); Ketones Urine Trace (Negative); Leukocyte Esterase Urine 2+ (Negative); Nitrite Urine Positive (Negative); Protein Urine 1+ (Negative); Specific Gravity Urine 1.024 (1.000-1.030); Urobilinogen Urine Negative (Negative); WBC Urine Automated >30 /hpf (0-5)
[2020-02-03 14:51] LABS: Albumin Globulin Ratio 0.5 (0.9-2); Bilirubin,Total 0.4 mg/dl (0.2-1); C Reactive Protein 32.7 mg/dl (0-0.29); Globulin 4.3 gm/dl (2.5-4.0); Phosphorus 3.6 mg/dl (2.5-4.9); Thyroid Stimulating Hormone 1.29 uIu/ml (0.300-4.500); Total Protein 6.5 gm/dl (6.4-8.2)
[2020-02-03 15:07] LABS: Bilirubin Urine Negative (Negative); Ictotest Urine Negative (Negative)
--- NOTE | 2020-02-03 15:44 | Progress Notes ---
DATE: 02/03/2020 REASON FOR CONSULT: Acute renal failure. HISTORY OF PRESENT ILLNESS: The patient is a 69-year-old female with a normal baseline creatinine of 0.9, who presented to the Emergency Department earlier today with back pain, atrial fibrillation with rapid ventricular response and low blood pressure. She was found to be in AFib with RVR and required cardioversion in the Emergency Department itself. Creatinine was much higher than baseline at 2.6. She was also very supratherapeutic with INR. She has already been seen by cardiology and underwent cardioversion. At baseline, she does have congestive heart failure diastolic type as well as morbid obesity with longstanding diabetes, obstructive sleep apnea on CPAP, pulmonary hypertension and history of stroke. At baseline, she takes Bumex, lisinopril as well as fairly high dose of ibuprofen and for the last few days, she was taking even higher dose than her baseline ibuprofen. 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 ALLERGIES: Reviewed. HOME MEDICATIONS: List was reviewed in detail and is as per the reconciliation list. PAST MEDICAL AND SURGICAL HISTORY: Reviewed in detail and includes congestive heart failure, diastolic type AFib with RVR, longstanding type 2 diabetes, history of stroke, history of pyloric ulcer, history of upper GI bleed, history of chronic NSAID use, history of multiple skin infections related with diabetes, hypertension. PAST SURGICAL HISTORY: Basal cell carcinoma excision, left knee surgery, repair of rotator cuff surgery. FAMILY HISTORY: Significant for diabetes and heart disease, no kidney disease in the family. SOCIAL HISTORY: No smoking, no alcohol. The patient is a . 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 She uses cane and walker. REVIEW OF SYSTEMS: As detailed in HPI. Positive review of system includes back pain and feeling of weakness with palpitation. Otherwise, 12 systems reviewed and negative. PHYSICAL EXAMINATION: GENERAL: Morbidly obese female who is not in overt respiratory distress. She is awake, alert, oriented x3 and was able to give detailed account of her medical problem. HEENT: Neck supple. Mucous membrane moist. NECK: No jugular venous distention. CARDIOVASCULAR: Regular rate and rhythm at this time, but apparently she was in AFib with irregular heartbeat and tachycardia earlier. No gallop, no murmur. ABDOMEN: Normal bowel sounds, soft, nontender, morbidly obese. She does have abdominal wall bruising. CHEST: Bilateral clear to auscultation. EXTREMITIES: She has bilateral lower extremity with venous stasis dermatitis, left more than right, also has skin bruising on her anterior abdominal wall. VITAL SIGNS: Blood pressure 97/57, pulse rate 98 per minute, temperature 36.4, 99% on room air at this time. LABORATORY TESTS: She has acute renal failure with a creatinine of 2.6, which is higher than her baseline of 0.9. WBC count of 14,000, hemoglobin 10.5, platelet count 266, INR very high at 8.7. Sodium 137, potassium 3.7, creatinine 2.62. Repeat was 2.4, calcium 8.4. BNP 2776. Chest x-ray shows no overt congestive heart failure. Urine test results pending. ASSESSMENT AND PLAN: A 69-year-old female with fairly normal baseline creatinine of 0.9, but had significant comorbidities predisposing to renal failure including longstanding diabetes, pulmonary hypertension, presenting with atrial fibrillation with rapid ventricular response and low blood pressure. 1. Acute renal failure. This is hopefully case of simple prerenal with low blood pressure in the setting of atrial fibrillation with rapid ventricular response and hypotension. In that case renal recovery will be very prompt. Agree with some gentle hydration. We also need to hold lisinopril, Bumex, spironolactone as well as ibuprofen. She says she cannot function without ibuprofen, so alternate medication needs to be used for pain control. We will need a urinalysis. She has already made some urine and her second blood work shows slightly better creatinine than the first one, which is a good prognostic sign. No need of renal imaging unless renal function starts to get worse. 2. Atrial fibrillation with rapid ventricular response with hypertension, status post cardioversion. Her blood pressure is still low and would like her blood pressure to be somewhat higher. Thank you very much. Continue other medication. Thank you for the consult.
[2020-02-03] MEDS: MAGNESIUM SULFATE / D5W 1 GM/100 ML BAG IV SCH ×3 (15:59→20:00)
[2020-02-03] MEDS: oxyCODONE HCL IR 5 MG TAB (IMMEDIATE RELEASE) PO PRN (17:17)
[2020-02-03] MEDS: INSULIN ASPART 100 UNITS/ML 3 ML PEN SC SCH ×2 (17:18→20:55)
[2020-02-03] MEDS ORDERED: HYDROmorphone INJ 0.5 MG/0.5 ML SYR IV STA (17:53)
--- NOTE | 2020-02-03 18:07 | XRay Report ---
KUB HISTORY: acute renal failure COMPARISON: None. FINDINGS: No dilated loops of small bowel to suggest an obstruction. Mildly dilated gas and stool-junior led transverse colon. However, there is gas and stool seen throughout the remaining normal caliber co vinod. Therefore, this is of doubtful clinical significance. Levoscoliosis. No renal calculi. No urete ral calculi. No pneumoperitoneum or pneumatosis. IMPRESSION: Moderate well-formed stool seen within the colon. No evidence for bowel obstruction. ACT 112: Negative or not required by law. Electronically signed by: Suhail Nolen M.D. 02/03/2020 6:06 PM
--- NOTE | 2020-02-03 18:08 | XRay Report ---
XR hip DARÍO 2v w pelvis CLINICAL HISTORY: acute low back pain. Bilateral hip pain. COMPARISON STUDY: None. FINDINGS: No fracture or dislocation within the pelvis or hips. The sacrum is intact. Soft tissues ar e within normal limits. Mild osteoarthritis within the bilateral hips. Vascular calcifications are no maria guadalupe. IMPRESSION: No fracture or dislocation within the pelvis or hips. ACT 112: Negative or not required by law. Electronically signed by: Suhail Nolen M.D. 02/03/2020 6:06 PM
--- NOTE | 2020-02-03 18:11 | XRay Report ---
LUMBAR SPINE 3 VIEWS HISTORY: acute low back pain COMPARISON: Lumbar spine MRI 03/12/2017. FINDINGS: There is no fracture. Severe disc space narrowing at L3-L4 and L4-L5. Mild disc space narr owing within the lower thoracic spine. The L1-L2 vertebral bodies appear fused. Endplate sclerosis an d osteophytes at L2-L3 have progressed. There is mild disc space narrowing at this level. Therefore, this favors degenerative change. Levoscoliosis. There is 5 mm of anterolisthesis of L4 and L5. Modera te to severe facet degenerative changes throughout the lumbar spine. This is most pronounced at the L 4-5 and L5-S1 levels. IMPRESSION: 1. No acute fractures within the lumbar spine. 2. Multilevel degenerative changes as described above which have progressed at the L2-L3 level. ACT 112: Negative or not required by law. Electronically signed by: Suhail Nolen M.D. 02/03/2020 6:09 PM
--- NOTE | 2020-02-03 18:44 | Ultrasound Report ---
US abdominal aortic aneurysm CLINICAL HISTORY: Evaluate for abdominal aortic aneurysm. COMPARISON STUDY: None. FINDINGS: The abdominal aorta is normal and course and caliber measuring up to 2.1 cm in diameter. Th e iliac arteries are not well visualized. IMPRESSION: No evidence for an abdominal aortic aneurysm. ACT 112: Negative or not required by law. Electronically signed by: Suhail Nolen M.D. 02/03/2020 6:42 PM
[2020-02-03 19:14] LABS: Hematocrit (blood only) 29.7 % (37-47); Hemoglobin 9.7 g/dL (12.0-16.0); Mean Corpuscular Hemoglobin 26.8 pg (25-34); Mean Corpuscular Hgb Conc 32.7 g/dL (32-36); Mean Platelet Volume 10.8 fL (7.4-10.4); Nucleated RBC # (auto) 0.04 K/uL (0-0); Nucleated RBC % (auto) 0.2 %; Platelet Count 193 K/uL (130-400); RDW Coefficient of Variation 15.7 % (11.5-14.5); RDW Standard Deviation 47.1 fL (36.4-46.3); Red Blood Count 3.62 M/uL (4.2-5.4)
[2020-02-03 19:32] LABS: Albumin Level 1.7 gm/dl (3.4-5.0); BUN Creatinine Ratio 23.8 (10-20); Calcium 7.9 mg/dl (8.5-10.1); Creatinine Clr Calc Pharmacy 30.9 ml/min; Est GFR (African American) 24.6; Est GFR (Non-African American) 21.2; Potassium 3.8 mmol/L (3.5-5.1)
[2020-02-03 19:35] LABS: Albumin Globulin Ratio 0.4 (0.9-2); Bilirubin,Total 0.4 mg/dl (0.2-1); Globulin 4.1 gm/dl (2.5-4.0); Total Protein 5.8 gm/dl (6.4-8.2)
[2020-02-03] MEDS: NYSTATIN CR 15 GM TUBE EXT SCH (20:09)
[2020-02-03] MEDS: MAGNESIUM OXIDE 400 MG TAB PO SCH (20:53)
[2020-02-03] MEDS: allopurinoL 100 MG TAB PO SCH (20:53)
[2020-02-03] MEDS: MULTIVITAMIN TAB PO SCH (20:53)
[2020-02-03] MEDS: ASPIRIN 81 MG ECTAB PO SCH (20:53)
[2020-02-03] MEDS: HYDROmorphone INJ 0.5 MG/0.5 ML SYR IV PRN (20:54)
[2020-02-03] MEDS: INSULIN GLARGINE SOLOSTAR 100 UNITS/ML 3 ML PEN SC SCH (20:54)
[2020-02-03] MEDS: PIPERACILLIN/TAZOBACTAM 4.5 GM in DEXTROSE 5% 100 ML IV SCH (20:57)
[2020-02-03] MEDS ORDERED: ROSUVASTATIN CALCIUM 10 MG TAB PO SCH (21:00)
[2020-02-03 21:17] LABS: Prothrombin Time > 90.0 Seconds (9.0-12.0)
[2020-02-03 21:24] LABS: INR > 9.7 (0.9-1.1)
[2020-02-03] MEDS ORDERED: PHYTONADIONE 2.5 MG in SODIUM CHLORIDE 0.9% 50 ML IV ONE (21:45)
[2020-02-04] MEDS ORDERED: VANCOMYCIN CONSULT ACTIVE PRN (00:32)
[2020-02-04] MEDS ORDERED: VANCOMYCIN HCL 1,000 MG in SODIUM CHLORIDE 0.9% 250 ML IV SCH (00:45)
[2020-02-04] MEDS ORDERED: VANCOMYCIN HCL 2,500 MG in SODIUM CHLORIDE 0.9% 500 ML IV SCH (01:00)
[2020-02-04] MEDS: HYDROmorphone INJ 0.5 MG/0.5 ML SYR IV PRN ×2 (04:27→09:53)
[2020-02-04] MEDS ORDERED: METOPROLOL TARTRATE 1 MG/ML VIAL IV STA (04:42)
[2020-02-04] MEDS: PIPERACILLIN/TAZOBACTAM 4.5 GM in DEXTROSE 5% 100 ML IV SCH ×3 (05:17→19:55)
[2020-02-04] MEDS: LEVOTHYROXINE SODIUM 50 MCG TABLET PO SCH (05:50)
[2020-02-04 06:18] LABS: Basophils # (auto) 0.01 K/uL (0-0.2); Basophils % (auto) 0.1 %; Eosinophils # (auto) 0.03 K/uL (0-0.5); Eosinophils % (auto) 0.2 %; Hematocrit (blood only) 31.1 % (37-47); Hemoglobin 10.2 g/dL (12.0-16.0); Immature Granulocytes # (auto) 0.07 K/uL (0.00-0.02); Immature Granulocytes % (auto) 0.5 %; Lymphocytes # (auto) 0.59 K/uL (1.2-3.4); Lymphocytes % (auto) 4.3 %; Mean Corpuscular Hemoglobin 26.6 pg (25-34); Mean Corpuscular Hgb Conc 32.8 g/dL (32-36); Mean Platelet Volume 10.9 fL (7.4-10.4); Monocytes # (auto) 0.83 K/uL (0.11-0.59); Monocytes % (auto) 6.1 %; Neutrophils # (auto) 12.18 K/uL (1.4-6.5); Neutrophils % (auto) 88.8 %; Nucleated RBC # (auto) 0.04 K/uL (0-0); Nucleated RBC % (auto) 0.3 %; Platelet Count 226 K/uL (130-400); RDW Coefficient of Variation 15.8 % (11.5-14.5); RDW Standard Deviation 46.7 fL (36.4-46.3); Red Blood Count 3.84 M/uL (4.2-5.4); White Blood Count 13.71 K/uL (4.8-10.8)
[2020-02-04 07:36] LABS: Prothrombin Time 20.7 Seconds (9.0-12.0)
[2020-02-04 07:54] LABS: Albumin Level 1.9 gm/dl (3.4-5.0); BUN Creatinine Ratio 26.4 (10-20); Calcium 8.3 mg/dl (8.5-10.1); Creatinine Clr Calc Pharmacy 34.1 ml/min; Est GFR (African American) 27.8; Potassium 3.8 mmol/L (3.5-5.1)
[2020-02-04 07:57] LABS: Albumin Globulin Ratio 0.4 (0.9-2); Bilirubin,Total 0.7 mg/dl (0.2-1); Globulin 4.7 gm/dl (2.5-4.0); Total Protein 6.6 gm/dl (6.4-8.2)
[2020-02-04] MEDS: INSULIN GLARGINE SOLOSTAR 100 UNITS/ML 3 ML PEN SC SCH ×2 (09:15→22:13)
[2020-02-04] MEDS: INSULIN ASPART 100 UNITS/ML 3 ML PEN SC SCH ×4 (09:15→22:13)
--- NOTE | 2020-02-04 09:47 | Electrocardiogram Report ---
Test Reason : Blood Pressure : / mmHG Vent. Rate : 093 BPM Atrial Rate : 093 BPM P-R Int : 128 ms QRS Dur : 088 ms QT Int : 376 ms P-R-T Axes : 010 050 040 degrees QTc Int : 467 ms Sinus rhythm with Premature supraventricular complexes Otherwise normal ECG When compared with ECG of 03-FEB-2020 10:41, (unconfirmed) No significant change was found Confirmed by Shravan Menchaca ([id number]) on 02/04/2020 9:47:21 AM Referred By: REFERRED SELF Confirmed By:Jose Menchaca
[2020-02-04] MEDS: CHOLECALCIFEROL 1,000 UNITS 25 MCG TAB PO SCH (09:52)
[2020-02-04] MEDS: PANTOprazole 40 MG TAB PO SCH (09:52)
[2020-02-04] MEDS: MAGNESIUM OXIDE 400 MG TAB PO SCH ×2 (09:53→22:12)
--- NOTE | 2020-02-04 09:56 | Electrocardiogram Report ---
Test Reason : Blood Pressure : / mmHG Vent. Rate : 124 BPM Atrial Rate : 124 BPM P-R Int : 160 ms QRS Dur : 084 ms QT Int : 322 ms P-R-T Axes : 074 000 058 degrees QTc Int : 462 ms Sinus tachycardia with Premature supraventricular complexes , some conseutive Low voltage QRS Abnormal ECG When compared with ECG of 03-FEB-2020 16:51, (unconfirmed) No significant change was found Confirmed by Shravan Menchaca ([id number]) on 02/04/2020 9:55:59 AM Referred By: REFERRED SELF Confirmed By:Jose Menchaca
--- NOTE | 2020-02-04 09:58 | Electrocardiogram Report ---
Test Reason : Blood Pressure : / mmHG Vent. Rate : 079 BPM Atrial Rate : 079 BPM P-R Int : 138 ms QRS Dur : 084 ms QT Int : 386 ms P-R-T Axes : 026 003 012 degrees QTc Int : 442 ms Sinus rhythm with Premature atrial complexes in a pattern of bigeminy Low voltage QRS Poor R wave progression, consider anterior PA vs. lead placement vs. LVH Abnormal ECG When compared with ECG of 03-FEB-2020 09:30, Sinus rhythm has replaced Atrial fibrillation Vent. rate has decreased BY 53 BPM Confirmed by Shravan Menchaca ([id number]) on 02/04/2020 9:57:38 AM Referred By: REFERRED SELF Confirmed By:Jose Menchaca
--- NOTE | 2020-02-04 10:40 | Cardiology Progress Note ---
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 She had an echocardiogram completed which I will review. There is concern for endocarditis due to the type of bacteria and presentation. She remains in sinus rhythm on the telemetry. She was on 100 mg of metoprolol twice daily as an outpatient. That medication was not restarted most likely due to low blood pressure. I will start metoprolol today at 50 mg twice daily and if her blood pressure tolerates then the metoprolol should be titrated back to her home dose of 100 mg twice daily. INR is currently 2.5 today. Admission and Anticipated Discharge Date Admission Date: February 03, 2020 Subjective The patient's blood cultures are positive for strep group B. She has been started on antibiotics. She still has low back pain but no current cardiac symptoms. Review of Systems Review of Systems: Nothing additional to add. Physical Exam Physical Exam: General: no acute distress and stated age Head: normocephalic, no masses, lesions, tenderness or abnormalities Eyes: conjunctiva are pink and non-injected, sclera clear Neck: supple, no adenopathy, no bruits, normal jugular venous pulse, no hepatojugular reflux Chest: normal shape and normal respiratory effort Lungs: clear to auscultation and percussion Cardiac Exam: - irregular rate & rhythm, no murmurs gallops or rubs - normal S1, normal S2 Pulses: 2(+) throughout Abdomen: abdomen soft, non-tender, no abnormal masses and no hepatosplenomegaly Musculoskeletal: no gait disturbance, no joint inflammation, no deforming arthritis Extremities: Nonhealing ulcers of the lower extremities bilaterally. Neuro: grossly normal exam Results & Data ([facility]) Vital Signs (Past 12 Hours) Vital Signs Temp Pulse Pulse Resp BP BP Pulse Ox 02/04/20 08:15 139 H 114/72 02/04/20 08:00 37.3 C 122 H 22 107/50 L 92 02/04/20 03:51 36.8 C 122 H 20 129/74 93 02/04/20 03:28 90 16 96 02/04/20 00:27 91 H 02/03/20 23:28 37.7 C H 111 H 21 119/72 95 Laboratory Results Laboratory Results - last 24 hr 02/03/20 02/03/20 02/03/20 10:10 10:10 13:57 WBC RBC Hgb Hct MCV MCH MCHC RDW Std Deviation RDW Coeff of Yvette Plt Count MPV Immature Gran % (Auto) Neut % (Auto) Lymph % (Auto) Placer % (Auto) Eos % (Auto) Baso % (Auto) Neut # (Auto) Lymph # (Auto) Placer # (Auto) Eos # (Auto) Baso # (Auto) Immature Gran # (Auto) Absolute Nucleated RBC Nucleated RBC % (auto) ESR > 90 H PT 81.3 H INR 8.7 H* Sodium 135 L Potassium 4.1 Chloride 101 Carbon Dioxide 22 Anion Gap 12.0 H BUN 55 H Creatinine 2.62 H Est Cr Clr Drug Dosing 26.9 Est GFR ( Amer) 20.8 Est GFR (Non-Af Amer) 17.9 BUN/Creatinine Ratio 20.8 H Glucose 169 H POC Glucose Estimat Average Glucose Hemoglobin A1c Lactate Calcium 8.8 Phosphorus Magnesium Total Bilirubin 0.5 Direct Bilirubin 0.2 AST 23 ALT 19 Alkaline Phosphatase 88 Total Creatine Kinase Troponin I < 0.015 C-Reactive Protein NT-Pro-B Natriuret Pep Total Protein 7.0 Albumin 2.2 L Globulin 4.8 H Albumin/Globulin Ratio 0.5 L Procalcitonin TSH 1.820 Urine Color Urine Appearance Urine pH Ur Specific [place] Urine Protein Urine Glucose (UA) Urine Ketones Urine Blood Urine Nitrite Urine Bilirubin Urine Urobilinogen Ur Leukocyte Esterase Urine WBC (Auto) Urine RBC (Auto) U Hyaline Cast (Auto) U Epithel Cells (Auto) Urine Bacteria (Auto) COVID-19 Eval Order COVID-19 PCR 02/03/20 02/03/20 02/03/20 13:57 13:57 13:57 WBC RBC Hgb Hct MCV MCH MCHC RDW Std Deviation RDW Coeff of Yvette Plt Count MPV Immature Gran % (Auto) Neut % (Auto) Lymph % (Auto) Placer % (Auto) Eos % (Auto) Baso % (Auto) Neut # (Auto) Lymph # (Auto) Placer # (Auto) Eos # (Auto) Baso # (Auto) Immature Gran # (Auto) Absolute Nucleated RBC Nucleated RBC % (auto) ESR PT INR Sodium 137 Potassium 3.7 Chloride 104 Carbon Dioxide 23 Anion Gap 10.0 BUN 54 H Creatinine 2.40 H Est Cr Clr Drug Dosing 29.4 Est GFR ( Amer) 23.1 Est GFR (Non-Af Amer) 19.9 BUN/Creatinine Ratio 22.5 H Glucose 120 H POC Glucose Estimat Average Glucose Hemoglobin A1c Lactate 1.6 Calcium 8.4 L Phosphorus 3.6 Magnesium 1.3 L Total Bilirubin 0.4 Direct Bilirubin AST 20 ALT 17 Alkaline Phosphatase 92 Total Creatine Kinase 158 Troponin I C-Reactive Protein 32.70 H NT-Pro-B Natriuret Pep 8776 H Total Protein 6.5 Albumin 2.2 L Globulin 4.3 H Albumin/Globulin Ratio 0.5 L Procalcitonin 14.23 H TSH 1.290 Urine Color Urine Appearance Urine pH Ur Specific [place] Urine Protein Urine Glucose (UA) Urine Ketones Urine Blood Urine Nitrite Urine Bilirubin Urine Urobilinogen Ur Leukocyte Esterase Urine WBC (Auto) Urine RBC (Auto) U Hyaline Cast (Auto) U Epithel Cells (Auto) Urine Bacteria (Auto) COVID-19 Eval Order COVID-19 PCR 02/03/20 02/03/20 02/03/20 13:57 14:35 16:30 WBC RBC Hgb Hct MCV MCH MCHC RDW Std Deviation RDW Coeff of Yvette Plt Count MPV Immature Gran % (Auto) Neut % (Auto) Lymph % (Auto) Placer % (Auto) Eos % (Auto) Baso % (Auto) Neut # (Auto) Lymph # (Auto) Placer # (Auto) Eos # (Auto) Baso # (Auto) Immature Gran # (Auto) Absolute Nucleated RBC Nucleated RBC % (auto) ESR PT INR Sodium Potassium Chloride Carbon Dioxide Anion Gap BUN Creatinine Est Cr Clr Drug Dosing Est GFR ( Amer) Est GFR (Non-Af Amer) BUN/Creatinine Ratio Glucose POC Glucose 137 H Estimat Average Glucose Pending Hemoglobin A1c Pending Lactate Calcium Phosphorus Magnesium Total Bilirubin Direct Bilirubin AST ALT Alkaline Phosphatase Total Creatine Kinase Troponin I C-Reactive Protein NT-Pro-B Natriuret Pep Total Protein Albumin Globulin Albumin/Globulin Ratio Procalcitonin TSH Urine Color Dark Yellow Urine Appearance Cloudy A Urine pH 5.0 Ur Specific [place] 1.024 Urine Protein 1+ H Urine Glucose (UA) Negative Urine Ketones Trace H Urine Blood Negative Urine Nitrite Positive A Urine Bilirubin Negative Urine Urobilinogen Negative Ur Leukocyte Esterase 2+ H Urine WBC (Auto) >30 H Urine RBC (Auto) 5-10 H U Hyaline Cast (Auto) Not Reportable U Epithel Cells (Auto) >30 H Urine Bacteria (Auto) 2+ H COVID-19 Eval Order COVID-19 PCR 02/03/20 02/03/20 02/03/20 18:55 18:55 18:55 WBC 16.70 H RBC 3.62 L Hgb 9.7 L Hct 29.7 L MCV 82.0 MCH 26.8 MCHC 32.7 RDW Std Deviation 47.1 H RDW Coeff of Yvette 15.7 H Plt Count 193 MPV 10.8 H Immature Gran % (Auto) Neut % (Auto) Lymph % (Auto) Placer % (Auto) Eos % (Auto) Baso % (Auto) Neut # (Auto) Lymph # (Auto) Placer # (Auto) Eos # (Auto) Baso # (Auto) Immature Gran # (Auto) Absolute Nucleated RBC 0.04 H Nucleated RBC % (auto) 0.2 ESR PT Cancelled INR Cancelled Sodium 132 L Potassium 3.8 Chloride 103 Carbon Dioxide 17 L Anion Gap 12.0 H BUN 54 H Creatinine 2.28 H Est Cr Clr Drug Dosing 30.9 Est GFR ( Amer) 24.6 Est GFR (Non-Af Amer) 21.2 BUN/Creatinine Ratio 23.8 H Glucose 243 H POC Glucose Estimat Average Glucose Hemoglobin A1c Lactate Calcium 7.9 L Phosphorus Magnesium Total Bilirubin 0.4 Direct Bilirubin AST 23 ALT 16 Alkaline Phosphatase 85 Total Creatine Kinase Troponin I C-Reactive Protein NT-Pro-B Natriuret Pep Total Protein 5.8 L Albumin 1.7 L Globulin 4.1 H Albumin/Globulin Ratio 0.4 L Procalcitonin TSH Urine Color Urine Appearance Urine pH Ur Specific [place] Urine Protein Urine Glucose (UA) Urine Ketones Urine Blood Urine Nitrite Urine Bilirubin Urine Urobilinogen Ur Leukocyte Esterase Urine WBC (Auto) Urine RBC (Auto) U Hyaline Cast (Auto) U Epithel Cells (Auto) Urine Bacteria (Auto) COVID-19 Eval Order COVID-19 PCR 02/03/20 02/03/20 02/04/20 20:20 20:44 05:43 WBC 13.71 H RBC 3.84 L Hgb 10.2 L Hct 31.1 L MCV 81.0 MCH 26.6 MCHC 32.8 RDW Std Deviation 46.7 H RDW Coeff of Yvette 15.8 H Plt Count 226 MPV 10.9 H Immature Gran % (Auto) 0.5 Neut % (Auto) 88.8 Lymph % (Auto) 4.3 Placer % (Auto) 6.1 Eos % (Auto) 0.2 Baso % (Auto) 0.1 Neut # (Auto) 12.18 H Lymph # (Auto) 0.59 L Placer # (Auto) 0.83 H Eos # (Auto) 0.03 Baso # (Auto) 0.01 Immature Gran # (Auto) 0.07 H Absolute Nucleated RBC 0.04 H Nucleated RBC % (auto) 0.3 ESR PT > 90.0 H INR > 9.7 H* Sodium Potassium Chloride Carbon Dioxide Anion Gap BUN Creatinine Est Cr Clr Drug Dosing Est GFR ( Amer) Est GFR (Non-Af Amer) BUN/Creatinine Ratio Glucose POC Glucose 232 H Estimat Average Glucose Hemoglobin A1c Lactate Calcium Phosphorus Magnesium Total Bilirubin Direct Bilirubin AST ALT Alkaline Phosphatase Total Creatine Kinase Troponin I C-Reactive Protein NT-Pro-B Natriuret Pep Total Protein Albumin Globulin Albumin/Globulin Ratio Procalcitonin TSH Urine Color Urine Appearance Urine pH Ur Specific [place] Urine Protein Urine Glucose (UA) Urine Ketones Urine Blood Urine Nitrite Urine Bilirubin Urine Urobilinogen Ur Leukocyte Esterase Urine WBC (Auto) Urine RBC (Auto) U Hyaline Cast (Auto) U Epithel Cells (Auto) Urine Bacteria (Auto) COVID-19 Eval Order COVID-19 PCR 02/04/20 02/04/20 02/04/20 07:08 07:08 07:08 WBC RBC Hgb Hct MCV MCH MCHC RDW Std Deviation RDW Coeff of Yvette Plt Count MPV Immature Gran % (Auto) Neut % (Auto) Lymph % (Auto) Placer % (Auto) Eos % (Auto) Baso % (Auto) Neut # (Auto) Lymph # (Auto) Placer # (Auto) Eos # (Auto) Baso # (Auto) Immature Gran # (Auto) Absolute Nucleated RBC Nucleated RBC % (auto) ESR PT 20.7 H INR 2.0 H Sodium 134 L Potassium 3.8 Chloride 103 Carbon Dioxide 21 Anion Gap 10.0 BUN 54 H Creatinine 2.06 H Est Cr Clr Drug Dosing 34.1 Est GFR ( Amer) 27.8 Est GFR (Non-Af Amer) 24.0 BUN/Creatinine Ratio 26.4 H Glucose 114 H POC Glucose Estimat Average Glucose Hemoglobin A1c Lactate Calcium 8.3 L Phosphorus Magnesium 2.3 Total Bilirubin 0.7 Direct Bilirubin AST 26 ALT 18 Alkaline Phosphatase 108 Total Creatine Kinase Troponin I C-Reactive Protein NT-Pro-B Natriuret Pep Total Protein 6.6 Albumin 1.9 L Globulin 4.7 H Albumin/Globulin Ratio 0.4 L Procalcitonin TSH Urine Color Urine Appearance Urine pH Ur Specific [place] Urine Protein Urine Glucose (UA) Urine Ketones Urine Blood Urine Nitrite Urine Bilirubin Urine Urobilinogen Ur Leukocyte Esterase Urine WBC (Auto) Urine RBC (Auto) U Hyaline Cast (Auto) U Epithel Cells (Auto) Urine Bacteria (Auto) COVID-19 Eval Order COVID-19 PCR 02/04/20 02/04/20 02/04/20 07:33 09:15 09:15 WBC RBC Hgb Hct MCV MCH MCHC RDW Std Deviation RDW Coeff of Yvette Plt Count MPV Immature Gran % (Auto) Neut % (Auto) Lymph % (Auto) Placer % (Auto) Eos % (Auto) Baso % (Auto) Neut # (Auto) Lymph # (Auto) Placer # (Auto) Eos # (Auto) Baso # (Auto) Immature Gran # (Auto) Absolute Nucleated RBC Nucleated RBC % (auto) ESR PT INR Sodium Potassium Chloride Carbon Dioxide Anion Gap BUN Creatinine Est Cr Clr Drug Dosing Est GFR ( Amer) Est GFR (Non-Af Amer) BUN/Creatinine Ratio Glucose POC Glucose 125 H Estimat Average Glucose Hemoglobin A1c Lactate Calcium Phosphorus Magnesium Total Bilirubin Direct Bilirubin AST ALT Alkaline Phosphatase Total Creatine Kinase Troponin I C-Reactive Protein NT-Pro-B Natriuret Pep Total Protein Albumin Globulin Albumin/Globulin Ratio Procalcitonin TSH Urine Color Urine Appearance Urine pH Ur Specific [place] Urine Protein Urine Glucose (UA) Urine Ketones Urine Blood Urine Nitrite Urine Bilirubin Urine Urobilinogen Ur Leukocyte Esterase Urine WBC (Auto) Urine RBC (Auto) U Hyaline Cast (Auto) U Epithel Cells (Auto) Urine Bacteria (Auto) COVID-19 Eval Order Covid19 Done at [facility] COVID-19 PCR NEGATIVE Medications Administered Current Inpatient Medications Acetaminophen (Acetaminophen 325 Mg Tab) 325 mg PO Q6H PRN PRN Reason: Pain or Fever Stop: 03/04/20 12:29 Allopurinol (Allopurinol 100 Mg Tab) 200 mg PO HS MONIKA Stop: 03/04/20 20:59 Last Admin: 02/03/20 20:53 Dose: 200 mg Documented by: Aspirin (Aspirin 81 Mg Ectab) 81 mg PO HS MONIKA Stop: 03/04/20 20:59 Last Admin: 02/03/20 20:53 Dose: 81 mg Documented by: Dextrose (Dextrose 50% 50 Ml Syringe) 25 - 50 ml IV UD PRN; Protocol PRN Reason: Hypoglycemia Protocol Stop: 03/04/20 14:26 Diphenhydramine HCl (Diphenhydramine Hcl 50 Mg/Ml Vial) 12.5 mg IV Q12 PRN PRN Reason: Allergic Reaction Stop: 03/04/20 12:29 Glucagon (Glucagon For Inj 1 Mg Vial) 1 mg SQ UD PRN; Protocol PRN Reason: Hypoglycemia Protocol Stop: 03/04/20 14:26 Glucose (Glucose 10 Tabs/Tube) 4 - 8 tabs PO UD PRN; Protocol PRN Reason: Hypoglycemia Protocol Stop: 03/04/20 14:26 Glucose (Glucose 40% Gel 15 Gm Tube) 15 - 30 gm PO UD PRN; Protocol PRN Reason: Hypoglycemia Protocol Stop: 03/04/20 14:26 Hydromorphone HCl (Hydromorphone Inj 0.5 Mg/0.5 Ml Syr) 0.5 mg IV Q4H PRN PRN Reason: Severe Pain Stop: 02/17/20 12:19 Last Admin: 02/04/20 09:53 Dose: 0.5 mg Documented by: Promethazine HCl 6.25 mg/ (Sodium Chloride) 50.25 mls @ 201 mls/hr IV Q6H PRN PRN Reason: Nausea And Vomiting Stop: 03/04/20 12:19 Piperacillin Sod/Tazobactam (Sod 4.5 gm/ Dextrose) 120 mls @ 30 mls/hr IV Q8H MONIKA; Protocol Stop: 02/05/20 19:59 Last Admin: 02/04/20 05:17 Dose: 30 mls/hr Documented by: Insulin Aspart (Insulin Aspart 100 Units/Ml 3 Ml Pen) 0 units SC [facility] Stop: 03/04/20 16:29 Last Admin: 10/03/20 20:55 Dose: 5 units Documented by: Insulin Glargine (Insulin Glargine Solostar 100 Units/Ml 3 Ml Pen) 18 units SC BID [facility] Stop: 03/04/20 20:59 Last Admin: 02/03/20 20:54 Dose: 18 units Documented by: Levothyroxine Sodium (Levothyroxine Sodium 50 Mcg Tablet) 50 mcg PO DAILYBB MONIKA Stop: 03/05/20 06:29 Last Admin: 02/04/20 05:50 Dose: 50 mcg Documented by: Magnesium Oxide (Magnesium Oxide 400 Mg Tab) 400 mg PO BID [facility] Stop: 03/04/20 20:59 Last Admin: 02/04/20 09:53 Dose: 400 mg Documented by: Metoprolol Tartrate (Metoprolol Tartrate 50 Mg Tab) 50 mg PO BID [facility] Stop: 03/05/20 10:44 Miscellaneous (Carbohydrates For Hypoglycemia ) 15 - 30 gm PO UD PRN PRN Reason: Hypoglycemia Protocol Stop: 03/04/20 14:26 Miscellaneous Information (Piperacill/Tazobac Consult Active) 1 ea N/A UD PRN PRN Reason: Consult Stop: 03/04/20 12:28 Miscellaneous Information (Vancomycin Consult Active) 1 ea N/A UD PRN PRN Reason: Consult Stop: 03/05/20 00:31 Multivitamins (Multivitamin Tab) 1 tab PO HS [facility] Stop: 03/04/20 20:59 Last Admin: 02/03/20 20:53 Dose: 1 tab Documented by: Nystatin (Nystatin Cr 15 Gm Tube) 1 appln EXT DAILY [facility] Stop: 03/04/20 18:44 Last Admin: 02/03/20 20:09 Dose: 1 appln Documented by: Oxycodone HCl (Oxycodone Hcl Ir 5 Mg Tab (Immediate Release)) 5 mg PO Q6H PRN PRN Reason: Moderate Pain Stop: 02/17/20 12:18 Last Admin: 02/03/20 17:17 Dose: 5 mg Documented by: Pantoprazole Sodium (Pantoprazole 40 Mg Tab) 40 mg PO QAM [facility] Stop: 03/05/20 08:59 Last Admin: 02/04/20 09:52 Dose: 40 mg Documented by: Rosuvastatin Calcium (Rosuvastatin Calcium 10 Mg Tab) 10 mg PO [facility] Stop: 03/04/20 20:59 Last Admin: 02/03/20 20:53 Dose: 10 mg Documented by: Vitamin D (Cholecalciferol 1,000 Units 25 Mcg Tab) 2,000 units PO [facility] Stop: 03/05/20 08:59 Last Admin: 02/04/20 09:52 Dose: 2,000 units Documented by:
[2020-02-04] MEDS: oxyCODONE HCL IR 5 MG TAB (IMMEDIATE RELEASE) PO PRN (11:43)
[2020-02-04] MEDS: METOPROLOL TARTRATE 50 MG TAB PO SCH ×2 (11:43→22:11)
[2020-02-04] MEDS ORDERED: NYSTATIN POWDER 15GM BTL EXT PRN (12:40)
--- NOTE | 2020-02-04 13:02 | Pharmacy Report ---
Pharmacy Abx Initial Consult - Date of Service February 04, 2020 - Pharmacy Dosing Scope Date of Consult: 02/04/20 Consultation requested by: Dr. Stinson Pharmacy is consulted to initiate VANCOMYCIN/ZOSYN IV dosing therapy, order appropriate labs and adjust drug dose/frequency. - Subjective The patient is a 69 year old F admitted on 02/03/20 12:38. - Objective Height: 5 ft 1 in Weight: 138.1 kg Vital Signs (Past 12hrs): Vital Signs Temp Pulse Pulse Resp BP BP Pulse Ox 02/04/20 11:01 37.1 C 120 H 22 122/84 92 02/04/20 08:15 139 H 114/72 02/04/20 08:00 37.3 C 122 H 22 107/50 L 92 02/04/20 03:51 36.8 C 122 H 20 129/74 93 02/04/20 03:28 90 16 96 Lab Results (24hrs): Laboratory Tests (24 Hours) 02/04/20 02/04/20 02/04/20 11:34 07:08 05:43 WBC 13.71 H Neut # (Auto) 12.18 H ESR Creatinine 2.06 H Est Cr Clr Drug Dosing 34.1 Total Creatine Kinase C-Reactive Protein Procalcitonin Random Vancomycin 20.7 02/03/20 02/03/20 02/03/20 18:55 18:55 13:57 WBC 16.70 H Neut # (Auto) ESR Creatinine 2.28 H Est Cr Clr Drug Dosing 30.9 Total Creatine Kinase C-Reactive Protein Procalcitonin 14.23 H Random Vancomycin 02/03/20 02/03/20 13:57 13:57 WBC Neut # (Auto) ESR > 90 H Creatinine 2.40 H Est Cr Clr Drug Dosing 29.4 Total Creatine Kinase 158 C-Reactive Protein 32.70 H Procalcitonin Random Vancomycin Micro Results: 02/03/20 15:41 Gram Stain - Final Leg,Right 02/03/20 15:41 Gram Stain - Final Leg,Left 02/03/20 13:55 Anaerobic Blood Culture - Pending Blood - Assessment & Plan Assessment 69 year old F ordered VANCOMYCIN and ZOSYN for SSI. Plan Vancomycin IV * Loading dose: 2500mg (18 mg/kg) IV x 1. * Random level drawn ~11 hours after loading dose = 20.7 mcg/mL. * Goal trough level for SSI : 15 to 20 mcg/mL * SCr is elevated from baseline (~1 in 2018). * SCr is slowly improving since admission (2.4 -> 2.28 -> 2.06). * Will give VANCOMYCIN 1750mg (~13mg/kg) IV x 1 dose today and order a random level with AM labs tomorrow. * Will establish a dosing regimen once renal function normalizes. Piperacillin/tazobactam * 4.5g bolus administered over 30 minutes, then 4.5g IV extended infusion every 8 hours for CrCl greater than 20 mL/min. * Aggressive dosing selected due to critically ill status/BMI 35 or more/history of cystic fibrosis. Pharmacy will continue to follow and will adjust dose/frequency as necessary. Thank you.
[2020-02-04] MEDS: NYSTATIN CR 15 GM TUBE EXT SCH (13:43)
[2020-02-04] MEDS: DAPTOmycin 500 MG in SYRINGE 0 ML IV SCH (15:25)
[2020-02-04] MEDS ORDERED: VANCOMYCIN HCL 1,750 MG in SODIUM CHLORIDE 0.9% 500 ML IV ONE (16:00)
--- NOTE | 2020-02-04 16:45 | Progress Notes ---
DATE: 02/04/2020 NEPHROLOGY PROGRESS NOTE SUBJECTIVE: Overnight, no new issues. Renal function continues to improve very slowly. She is still tachycardic and cardiology has been following. Making lots of urine, but it is not charted as she does not have a Joseph catheter. OBJECTIVE: VITAL SIGNS: Blood pressure 122/84, pulse rate 120, temperature 37.1, 92% on nasal cannula 2 liters. CHEST: Clear to auscultation. CARDIOVASCULAR: S1, S2 regular. ABDOMEN: Soft, nontender. EXTREMITIES: Show chronic venous stasis changes with some skin breakdown. LABORATORY TESTS: From this morning shows a creatinine of 2.0, which is improving. WBC count 13,000, hemoglobin 10.2, BUN 54. Sodium is improving and is now 134, potassium 3.8. ASSESSMENT AND PLAN: A 69-year-old female with fairly normal baseline creatinine of 0.9, but had significant comorbidities predisposing to renal failure including longstanding diabetes, pulmonary hypertension who presented to the hospital with atrial fibrillation and rapid ventricular response and low blood pressure. Acute renal failure, prerenal secondary to low blood pressure, atrial fibrillation with rapid ventricular response: It is improving with good urine output. Continue to hold lisinopril, Bumex, spironolactone as well as ibuprofen. Daily laboratories. Okay to continue IV fluid at a lower rate of 50 mL per hour for today and we will stop it tomorrow.
--- NOTE | 2020-02-04 20:31 | Hospitalist Progress Note ---
Date of Service February 04, 2020 Assessment & Plan (1) Severe sepsis: Presented with rapid AF and hypotension. (hypotension may have been secondary to rapid AF) WBC 14,100. C-reactive protein 32.7. Procalcitonin 14.23. Met criteria for severe sepsis per current CMS guidelines. Lactate 1.6. Blood cultures obtained in ED. Broad spectrum antibiotic therapy started. Received IV fluids. Blood cultures growing gram positive cocci in chains. Consider endocarditis. Urine culture growing gram neg rods. Cellulitis abdominal wall. Venous stasis ulcers. Severe back pain- consider discitis / osteomyelitis. Currently receiving vancomycin and piperacillin / tazobactam. Change from vancomycin to daptomycin for gram + coverage- better efficacy, lower toxicity. Continue piperacillin / tazobactam. Consult ID once culture data more complete. (2) Bacteremia: As noted above. (3) UTI (urinary tract infection): As noted above. (4) Infected ulcer of skin: Chronic venous stasis ulcers. Wound cultures growing Staph sp, group B beta strep, gram negative bacilli. Antibiotic management as noted above. (5) Cellulitis of abdominal wall: As noted above. (6) Back pain: Chronic back pain, but worse. Plain films showed degenerative changes. US negative for AAA. Must consider possibility of discitis / osteomyelitis in light of bacteremia. Can't do CT with contrast due to SAJAN. Best not to send for MRI today because of AF with very rapid rates. Also need to check weight and girth limits. (7) Hypotension: BP's as low as 70/50 in ED. Hypotension probably secondary to rapid AF +/- sepsis. (8) Atrial fibrillation with RVR: History of PAF. Presented with AF / RVR. Cardioverted in ED. Went back into AF; rates as high as 190 today. Rate management with metoprolol. Continue warfarin. (9) Supratherapeutic INR: INR 8.7 at time of admission. Elevated INR secondary to warfarin therapy. Received vitamin K. INR this morning 2.0. (10) Hypertension: Titrate cardiovascular meds as discussed above. (11) Acute kidney injury: History of CKD III with baseline creatinine about 1. Creatinine at time of admission 2.62. SAJAN, probably secondary to sepsis. Nephrology consulted. Received IV fluids. Management of sepsis as noted. Creatinine today 2.06. Follow. 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 Usually managed with metformin. Random blood sugars as high as 243 day of admission. Hgb A1c pending. Lantus / NovoLog per protocol. FBS today = 125. (13) Hypothyroidism: Continue levothyroxine. (14) Morbid obesity: Wt 138 kg. BMI 57.8. Morbid obesity contributing to medical problems. Heart healthy, diabetic diet. (15) Venous ulcers of both lower extremities: Consult Wound Care Nursing. (16) COVID-19 ruled out: Recent upper respiratory symptoms, fever, lymphopenia raised concern about possi ble COVID-19. SARS-CoV-2 PCR negative. (17) DVT prophylaxis: Continue warfarin. (18) Discharge planning issues: Discharge disposition to be determined. Internal Medicine follow-up with Dr. Whitmore. Cardiology follow-up with Dr. Foster. Admission and Anticipated Discharge Date Admission Date: February 03, 2020 Subjective Recheck for multiple problems. Patient seen in their room around 1130. Presented to ED yesterday with rapid atrial fib, back pain, and other problems. Remains in rapid AF this morning with rates as high as 190. Cardiology consulted. Metoprolol dose decreased due to hypotension. No chest pain or SOB. Persist low back pain, more intense than her usual chronic pain. Review of Systems: Constitutional- no fever. Cardiac- as noted above. Pulmonary- as noted above. GI- no nausea, vomiting, diarrhea, melena, hematochezia. - Joseph cath. Otherwise, as noted above. Physical Exam Constitutional: + morbidly obese; no acute distress Respiratory: no respiratory distress Auscultation: lungs clear to auscultation bilaterally Cardiovascular: Rate/Rhythm: + tachycardic and + irregularly irregular Heart Sounds: + cardiac rub; no gallop Vessels: + JVD Extremities: + edema (1+ pretibial); no calf tenderness Gastrointestinal (Abdomen): normal bowel sounds, soft, nontender, no hepatosplenomegaly Musculoskeletal: Extremities: no cyanosis Skin: + rash (intensely erythema left lower abdomen & groin with serous drainage) and + ulcer (shallow ulcer left leg; deeper ulcers right leg with exudate) Psychiatric: Orientation: alert and oriented x 3 Genitourinary: + bladder abnormality (Joseph cath) Results & Data Results & Data ([facility]) Vital Signs (Past 12 Hours) Vital Signs Temp Pulse Resp BP BP Pulse Ox 02/04/20 19:33 37.5 C 104 H 20 110/76 93 02/04/20 11:01 37.1 C 120 H 22 122/84 92 Laboratory Results Laboratory Results - last 24 hr 02/04/20 02/04/20 02/04/20 05:43 07:08 07:08 WBC 13.71 H RBC 3.84 L Hgb 10.2 L Hct 31.1 L MCV 81.0 MCH 26.6 MCHC 32.8 RDW Std Deviation 46.7 H RDW Coeff of Yvette 15.8 H Plt Count 226 MPV 10.9 H Immature Gran % (Auto) 0.5 Neut % (Auto) 88.8 Lymph % (Auto) 4.3 Frederick % (Auto) 6.1 Eos % (Auto) 0.2 Baso % (Auto) 0.1 Neut # (Auto) 12.18 H Lymph # (Auto) 0.59 L Frederick # (Auto) 0.83 H Eos # (Auto) 0.03 Baso # (Auto) 0.01 Immature Gran # (Auto) 0.07 H Absolute Nucleated RBC 0.04 H Nucleated RBC % (auto) 0.3 PT 20.7 H INR 2.0 H Sodium 134 L Potassium 3.8 Chloride 103 Carbon Dioxide 21 Anion Gap 10.0 BUN 54 H Creatinine 2.06 H Est Cr Clr Drug Dosing 34.1 Est GFR ( Amer) 27.8 Est GFR (Non-Af Amer) 24.0 BUN/Creatinine Ratio 26.4 H Glucose 114 H POC Glucose Calcium 8.3 L Magnesium Total Bilirubin 0.7 AST 26 ALT 18 Alkaline Phosphatase 108 Total Protein 6.6 Albumin 1.9 L Globulin 4.7 H Albumin/Globulin Ratio 0.4 L Random Vancomycin COVID-19 Eval Order COVID-19 PCR 02/04/20 02/04/20 02/04/20 07:08 07:33 09:15 WBC RBC Hgb Hct MCV MCH MCHC RDW Std Deviation RDW Coeff of Yvette Plt Count MPV Immature Gran % (Auto) Neut % (Auto) Lymph % (Auto) Frederick % (Auto) Eos % (Auto) Baso % (Auto) Neut # (Auto) Lymph # (Auto) Frederick # (Auto) Eos # (Auto) Baso # (Auto) Immature Gran # (Auto) Absolute Nucleated RBC Nucleated RBC % (auto) PT INR Sodium Potassium Chloride Carbon Dioxide Anion Gap BUN Creatinine Est Cr Clr Drug Dosing Est GFR ( Amer) Est GFR (Non-Af Amer) BUN/Creatinine Ratio Glucose POC Glucose 125 H Calcium Magnesium 2.3 Total Bilirubin AST ALT Alkaline Phosphatase Total Protein Albumin Globulin Albumin/Globulin Ratio Random Vancomycin COVID-19 Eval Order Covid19 Done at [facility] COVID-19 PCR 02/04/20 02/04/20 02/04/20 09:15 11:29 11:34 WBC RBC Hgb Hct MCV MCH MCHC RDW Std Deviation RDW Coeff of Yvette Plt Count MPV Immature Gran % (Auto) Neut % (Auto) Lymph % (Auto) Frederick % (Auto) Eos % (Auto) Baso % (Auto) Neut # (Auto) Lymph # (Auto) Frederick # (Auto) Eos # (Auto) Baso # (Auto) Immature Gran # (Auto) Absolute Nucleated RBC Nucleated RBC % (auto) PT INR Sodium Potassium Chloride Carbon Dioxide Anion Gap BUN Creatinine Est Cr Clr Drug Dosing Est GFR ( Amer) Est GFR (Non-Af Amer) BUN/Creatinine Ratio Glucose POC Glucose 252 H Calcium Magnesium Total Bilirubin AST ALT Alkaline Phosphatase Total Protein Albumin Globulin Albumin/Globulin Ratio Random Vancomycin 20.7 COVID-19 Eval Order COVID-19 PCR NEGATIVE 02/04/20 02/04/20 16:38 20:00 WBC RBC Hgb Hct MCV MCH MCHC RDW Std Deviation RDW Coeff of Yvette Plt Count MPV Immature Gran % (Auto) Neut % (Auto) Lymph % (Auto) Frederick % (Auto) Eos % (Auto) Baso % (Auto) Neut # (Auto) Lymph # (Auto) Frederick # (Auto) Eos # (Auto) Baso # (Auto) Immature Gran # (Auto) Absolute Nucleated RBC Nucleated RBC % (auto) PT INR Sodium Potassium Chloride Carbon Dioxide Anion Gap BUN Creatinine Est Cr Clr Drug Dosing Est GFR ( Amer) Est GFR (Non-Af Amer) BUN/Creatinine Ratio Glucose POC Glucose 189 H 184 H Calcium Magnesium Total Bilirubin AST ALT Alkaline Phosphatase Total Protein Albumin Globulin Albumin/Globulin Ratio Random Vancomycin COVID-19 Eval Order COVID-19 PCR Microbiology 02/03/20 13:55 Blood Aerobic Blood Culture - Preliminary Gram positive cocci in chains 02/03/20 13:55 Blood Anaerobic Blood Culture - Final 02/03/20 15:41 Leg,Right Gram Stain - Final 02/03/20 15:41 Leg,Right Wound Culture - Preliminary Staphylococcus species Group B Beta Strep Gram negative bacilli 02/03/20 15:41 Leg,Left Gram Stain - Final 02/03/20 15:41 Leg,Left Wound Culture - Preliminary Staphylococcus species Group B Beta Strep 02/03/20 14:35 Urine,Clean Catch Urine Culture - Preliminary Gram negative bacilli 02/03/20 13:57 Blood Aerobic Blood Culture - Preliminary Gram positive cocci in chains 02/03/20 13:57 Blood Anaerobic Blood Culture - Preliminary Gram positive cocci in chains
[2020-02-04] MEDS: allopurinoL 100 MG TAB PO SCH (22:12)
[2020-02-04] MEDS: ASPIRIN 81 MG ECTAB PO SCH (22:13)
[2020-02-04] MEDS: MULTIVITAMIN TAB PO SCH (22:14)
[2020-02-04] MEDS ORDERED: SODIUM CHLORIDE 0.9% 1000ML 1,000 ML IV SCH (23:00)
[2020-02-05] MEDS: PIPERACILLIN/TAZOBACTAM 4.5 GM in DEXTROSE 5% 100 ML IV SCH ×2 (05:10→16:26)
[2020-02-05] MEDS: LEVOTHYROXINE SODIUM 50 MCG TABLET PO SCH (05:11)
[2020-02-05 06:28] LABS: Estimated Average Glucose 171 mg/dl; Hemoglobin A1C 7.6 % (4.5-5.6)
[2020-02-05 07:06] LABS: Hematocrit (blood only) 30.9 % (37-47); Hemoglobin 10.4 g/dL (12.0-16.0); Mean Corpuscular Hemoglobin 27.1 pg (25-34); Mean Corpuscular Hgb Conc 33.7 g/dL (32-36); Mean Corpuscular Volume 80.5 fL (80-100); Mean Platelet Volume 10.4 fL (7.4-10.4); Platelet Count 270 K/uL (130-400); RDW Coefficient of Variation 15.7 % (11.5-14.5); Red Blood Count 3.84 M/uL (4.2-5.4); White Blood Count 13.19 K/uL (4.8-10.8)
[2020-02-05 07:13] LABS: INR 1.6 (0.9-1.1); Prothrombin Time 16.8 Seconds (9.0-12.0)
[2020-02-05 07:32] LABS: Calcium 8.8 mg/dl (8.5-10.1); Creatinine Clr Calc Pharmacy 46.7 ml/min; Est GFR (African American) 40.4; Est GFR (Non-African American) 34.9; Potassium 3.3 mmol/L (3.5-5.1)
[2020-02-05] MEDS ORDERED: POTASSIUM CHLORIDE CRTAB 20 MEQ TABCR PO ONE (07:46)
[2020-02-05] MEDS ORDERED: WARFARIN SOD 5 MG TAB PO ONE (07:46)
[2020-02-05] MEDS: METOPROLOL TARTRATE 1 MG/ML VIAL IV PRN ×2 (07:54→17:06)
[2020-02-05] MEDS: MAGNESIUM OXIDE 400 MG TAB PO SCH ×2 (08:05→21:02)
[2020-02-05] MEDS: INSULIN GLARGINE SOLOSTAR 100 UNITS/ML 3 ML PEN SC SCH ×2 (08:05→21:02)
[2020-02-05] MEDS: CHOLECALCIFEROL 1,000 UNITS 25 MCG TAB PO SCH (08:06)
[2020-02-05] MEDS: PANTOprazole 40 MG TAB PO SCH (08:06)
[2020-02-05] MEDS: METOPROLOL TARTRATE 50 MG TAB PO SCH ×2 (08:06→21:02)
[2020-02-05] MEDS ORDERED: MAGNESIUM OXIDE 400 MG TAB PO SCH (09:00)
[2020-02-05] MEDS ORDERED: AMIODARONE / D5W 150 MG/100 ML BAG IV STA (09:21)
[2020-02-05] MEDS ORDERED: STAT IV Infusion **Titration per Protocol STA (09:21)
[2020-02-05] MEDS ORDERED: 0.2 MICRON FILTER SET 1 EA IV ONE (09:21)
[2020-02-05] MEDS ORDERED: AMIODARONE IV BOLUS & DRIP IV STA (09:21)
--- NOTE | 2020-02-05 09:34 | Cardiology Progress Note ---
Date of Service February 05, 2020 Assessment & Plan (1) Low back pain: (2) Ambulatory dysfunction: (3) Morbid obesity: (4) Supratherapeutic INR: (5) Atrial fibrillation with RVR: (6) Sepsis due to alpha-hemolytic Streptococcus: The patient reverted back to atrial tachycardia which could be atrial flutter with 2-1 conduction. So far she is tolerating the RVR. The transthoracic echocardiogram suggested a possible vegetation on the mitral valve. She will require a transesophageal echocardiogram for better imaging however, I am going to load her with amiodarone first in anticipation of possible need for cardioversion following a RASHID. The patient is hemodynamically stable. Admission and Anticipated Discharge Date Admission Date: February 03, 2020 Subjective The patient appears to be resting comfortably. She does complain of generalized increased pain which may be due to adjustments in her chronic pain medications. Review of Systems Review of Systems: All systems reviewed & are unremarkable except as noted in HPI & below Nothing additional to add. Physical Exam Physical Exam: General: no acute distress and stated age Head: normocephalic, no masses, lesions, tenderness or abnormalities Eyes: conjunctiva are pink and non-injected, sclera clear Neck: supple, no adenopathy, no bruits, normal jugular venous pulse, no hepatojugular reflux Chest: normal shape and normal respiratory effort Lungs: clear to auscultation and percussion Cardiac Exam: - irregular rate & rhythm, no murmurs gallops or rubs - normal S1, normal S2 Pulses: 2(+) throughout Abdomen: abdomen soft, non-tender, no abnormal masses and no hepatosplenomegaly Musculoskeletal: no gait disturbance, no joint inflammation, no deforming arthritis Extremities: no edema and no cyanosis Neuro: grossly normal exam Results & Data ([facility]) Vital Signs (Past 12 Hours) Vital Signs Temp Pulse Pulse Resp BP BP BP 02/05/20 07:54 150 H 123/83 02/05/20 07:07 37.1 C 145 H 20 123/83 02/05/20 03:13 66 26 H 02/05/20 03:10 36.8 C 75 20 144/76 H 02/04/20 23:40 104 H 02/04/20 23:38 37.4 C 87 20 104/56 L 02/04/20 22:00 144 H 20 Pulse Ox 02/05/20 07:54 02/05/20 07:07 96 02/05/20 03:13 94 02/05/20 03:10 94 02/04/20 23:40 02/04/20 23:38 94 02/04/20 22:00 96 Laboratory Results Laboratory Results - last 24 hr 02/03/20 02/04/20 02/04/20 13:57 09:15 09:15 WBC RBC Hgb Hct MCV MCH MCHC RDW Std Deviation RDW Coeff of Yvette Plt Count MPV PT INR Sodium Potassium Chloride Carbon Dioxide Anion Gap BUN Creatinine Est Cr Clr Drug Dosing Est GFR ( Amer) Est GFR (Non-Af Amer) BUN/Creatinine Ratio Glucose POC Glucose Estimat Average Glucose 171 Hemoglobin A1c 7.6 H Calcium Random Vancomycin COVID-19 Eval Order Covid19 Done at [facility] COVID-19 PCR NEGATIVE 02/04/20 02/04/20 02/04/20 11:29 11:34 16:38 WBC RBC Hgb Hct MCV MCH MCHC RDW Std Deviation RDW Coeff of Yvette Plt Count MPV PT INR Sodium Potassium Chloride Carbon Dioxide Anion Gap BUN Creatinine Est Cr Clr Drug Dosing Est GFR ( Amer) Est GFR (Non-Af Amer) BUN/Creatinine Ratio Glucose POC Glucose 252 H 189 H Estimat Average Glucose Hemoglobin A1c Calcium Random Vancomycin 20.7 COVID-19 Eval Order COVID-19 PCR 02/04/20 02/05/20 02/05/20 20:00 06:20 06:20 WBC 13.19 H RBC 3.84 L Hgb 10.4 L Hct 30.9 L MCV 80.5 MCH 27.1 MCHC 33.7 RDW Std Deviation 46.0 RDW Coeff of Yvette 15.7 H Plt Count 270 MPV 10.4 PT 16.8 H INR 1.6 H Sodium Potassium Chloride Carbon Dioxide Anion Gap BUN Creatinine Est Cr Clr Drug Dosing Est GFR ( Amer) Est GFR (Non-Af Amer) BUN/Creatinine Ratio Glucose POC Glucose 184 H Estimat Average Glucose Hemoglobin A1c Calcium Random Vancomycin COVID-19 Eval Order COVID-19 PCR 02/05/20 02/05/20 06:20 07:21 WBC RBC Hgb Hct MCV MCH MCHC RDW Std Deviation RDW Coeff of Yvette Plt Count MPV PT INR Sodium 137 Potassium 3.3 L Chloride 107 Carbon Dioxide 21 Anion Gap 9.0 BUN 44 H Creatinine 1.51 H D Est Cr Clr Drug Dosing 46.7 Est GFR ( Amer) 40.4 Est GFR (Non-Af Amer) 34.9 BUN/Creatinine Ratio 29.0 H Glucose 100 H POC Glucose 110 H Estimat Average Glucose Hemoglobin A1c Calcium 8.8 Random Vancomycin COVID-19 Eval Order COVID-19 PCR Diagnostic Findings Echocardiogram indicates possible vegetation on the mitral valve. Medications Administered Current Inpatient Medications Acetaminophen (Acetaminophen 325 Mg Tab) 325 mg PO Q6H PRN PRN Reason: Pain or Fever Stop: 03/04/20 12:29 Allopurinol (Allopurinol 100 Mg Tab) 200 mg PO HS MONIKA Stop: 03/04/20 20:59 Last Admin: 02/04/20 22:12 Dose: 200 mg Documented by: Aspirin (Aspirin 81 Mg Ectab) 81 mg PO HS MONIKA Stop: 03/04/20 20:59 Last Admin: 02/04/20 22:13 Dose: 81 mg Documented by: Dextrose (Dextrose 50% 50 Ml Syringe) 25 - 50 ml IV UD PRN; Protocol PRN Reason: Hypoglycemia Protocol Stop: 03/04/20 14:26 Diphenhydramine HCl (Diphenhydramine Hcl 50 Mg/Ml Vial) 12.5 mg IV Q12 PRN PRN Reason: Allergic Reaction Stop: 03/04/20 12:29 Glucagon (Glucagon For Inj 1 Mg Vial) 1 mg SQ UD PRN; Protocol PRN Reason: Hypoglycemia Protocol Stop: 03/04/20 14:26 Glucose (Glucose 10 Tabs/Tube) 4 - 8 tabs PO UD PRN; Protocol PRN Reason: Hypoglycemia Protocol Stop: 03/04/20 14:26 Glucose (Glucose 40% Gel 15 Gm Tube) 15 - 30 gm PO UD PRN; Protocol PRN Reason: Hypoglycemia Protocol Stop: 03/04/20 14:26 Hydromorphone HCl (Hydromorphone Inj 0.5 Mg/0.5 Ml Syr) 0.5 mg IV Q4H PRN PRN Reason: Severe Pain Stop: 02/17/20 12:19 Last Admin: 02/04/20 09:53 Dose: 0.5 mg Documented by: Promethazine HCl 6.25 mg/ (Sodium Chloride) 50.25 mls @ 201 mls/hr IV Q6H PRN PRN Reason: Nausea And Vomiting Stop: 03/04/20 12:19 Piperacillin Sod/Tazobactam (Sod 4.5 gm/ Dextrose) 120 mls @ 30 mls/hr IV Q8H COUNT INCLUDES THE [facility]; Protocol Stop: 02/05/20 19:59 Last Admin: 02/05/20 05:10 Dose: 30 mls/hr Documented by: Daptomycin 500 mg/ Syringe 10 mls @ 5 mls/min IV Q24H COUNT INCLUDES THE [facility]; Protocol Stop: 02/18/20 13:59 Last Admin: 02/04/20 15:25 Dose: 5 mls/min Documented by: Sodium Chloride (Nss 1000ml) 1,000 mls @ 50 mls/hr IV .Q20H COUNT INCLUDES THE [facility] Stop: 02/05/20 18:59 Amiodarone HCl/Dextrose (Nexterone / D5w) 360 mg in 200 mls @ 33.333 mls/hr IV ONE ONE Stop: 02/05/20 15:44 Amiodarone HCl/Dextrose (Nexterone / D5w) 360 mg in 200 mls @ 16.667 mls/hr IV .Q12H COUNT INCLUDES THE [facility] Stop: 03/06/20 15:44 Insulin Aspart (Insulin Aspart 100 Units/Ml 3 Ml Pen) 0 units SC ACHS COUNT INCLUDES THE [facility] Stop: 03/04/20 16:29 Last Admin: 02/04/20 22:13 Dose: 3 units Documented by: Insulin Glargine (Insulin Glargine Solostar 100 Units/Ml 3 Ml Pen) 18 units SC BID COUNT INCLUDES THE [facility] Stop: 03/04/20 20:59 Last Admin: 02/05/20 08:05 Dose: 18 units Documented by: Levothyroxine Sodium (Levothyroxine Sodium 50 Mcg Tablet) 50 mcg PO DAILYBB COUNT INCLUDES THE [facility] Stop: 03/05/20 06:29 Last Admin: 02/05/20 05:11 Dose: 50 mcg Documented by: Magnesium Oxide (Magnesium Oxide 400 Mg Tab) 400 mg PO BID COUNT INCLUDES THE [facility] Stop: 03/04/20 20:59 Last Admin: 02/05/20 08:05 Dose: 400 mg Documented by: Metoprolol Tartrate (Metoprolol Tartrate 50 Mg Tab) 50 mg PO BID COUNT INCLUDES THE [facility] Stop: 03/05/20 10:44 Last Admin: 02/05/20 08:06 Dose: 50 mg Documented by: Metoprolol Tartrate (Metoprolol Tartrate 1 Mg/Ml Vial) 5 mg IV Q4 PRN PRN Reason: sustained HR > 115 Stop: 03/06/20 00:00 Last Admin: 02/05/20 07:54 Dose: 5 mg Documented by: Miscellaneous (Carbohydrates For Hypoglycemia ) 15 - 30 gm PO UD PRN PRN Reason: Hypoglycemia Protocol Stop: 03/04/20 14:26 Miscellaneous Information (Piperacill/Tazobac Consult Active) 1 ea N/A UD PRN PRN Reason: Consult Stop: 03/04/20 12:28 Miscellaneous Information (Daptomycin Consult Active) 1 ea N/A UD PRN PRN Reason: Consult Stop: 03/05/20 13:40 Multivitamins (Multivitamin Tab) 1 tab PO [facility] Stop: 03/04/20 20:59 Last Admin: 02/04/20 22:14 Dose: 1 tab Documented by: Nystatin (Nystatin Powder 15gm Btl) 1 appln EXT TID PRN PRN Reason: Rash Stop: 03/05/20 12:39 Oxycodone HCl (Oxycodone Hcl Ir 5 Mg Tab (Immediate Release)) 5 mg PO Q6H PRN PRN Reason: Moderate Pain Stop: 02/17/20 12:18 Last Admin: 02/04/20 11:43 Dose: 5 mg Documented by: Pantoprazole Sodium (Pantoprazole 40 Mg Tab) 40 mg PO [facility] Stop: 03/05/20 08:59 Last Admin: 02/05/20 08:06 Dose: 40 mg Documented by: Vitamin D (Cholecalciferol 1,000 Units 25 Mcg Tab) 2,000 units PO [facility] Stop: 03/05/20 08:59 Last Admin: 02/05/20 08:06 Dose: 2,000 units Documented by: Warfarin Sodium (Warfarin Sod 10 Mg Tab) 10 mg PO DAILY@1600 COUNT INCLUDES THE [facility] Stop: 03/06/20 15:59
[2020-02-05] MEDS ORDERED: AMIODARONE / D5W 360 MG/200 ML BAG IV ONE (09:45)
[2020-02-05] MEDS: INSULIN ASPART 100 UNITS/ML 3 ML PEN SC SCH ×5 (10:00→23:40)
[2020-02-05] MEDS: HYDROmorphone INJ 1 MG/ML SYRINGE IV PRN ×3 (11:31→19:44)
--- NOTE | 2020-02-05 11:51 | Progress Notes ---
DATE: 02/05/2020 SUBJECTIVE: The patient reverted back to atrial fibrillation and is currently on amiodarone drip. She continues to be somewhat tachycardic, but blood pressure so far is acceptable. She is making urine and renal function is getting better slowly. There is also suspicion of infective endocarditis and she is undergoing further testing. PHYSICAL EXAMINATION: VITAL SIGNS: Blood pressure is 121/75, pulse rate 138 irregular, temperature 37 degrees Celsius, 94% on room air. HEENT: Mucous membrane moist. NECK: Supple. No jugular venous distention. CHEST: Bilateral clear to auscultation; however, diminished breath sounds. CARDIOVASCULAR: S1, S2 irregular, tachycardic. ABDOMEN: Morbidly obese, soft, nontender. EXTREMITIES: Shows no edema, but some evidence of chronic venous stasis with skin breakdown. LABORATORY TESTS: Creatinine continues to get better slowly and this morning, it was down to 1.51, BUN is down to 44, potassium slightly low at 3.3, sodium 137. ASSESSMENT AND PLAN: A 69-year-old female with fairly normal baseline creatinine of 0.9, but has significant comorbidities predisposing to renal failure including longstanding diabetes, pulmonary hypertension who presented to the hospital with atrial fibrillation and rapid ventricular response and hypotension. Acute renal failure: This is prerenal secondary to low blood pressure, atrial fibrillation with rapid ventricular response. It is improving at this time with increasing urine output. However, given that patient continues to have tachycardia with atrial fibrillation with bacteremia and possibility of infective endocarditis. She is not out of the danger yet. Continue to hold lisinopril, Bumex, spironolactone as well as ibuprofen. Continue daily labs. Continue gentle hydration for the time being.
--- NOTE | 2020-02-05 13:54 | Magnetic Resonance Report ---
MR lumbar spine wo con CLINICAL HISTORY: severe back pain, bacteremia, r/o infection TECHNIQUE: Sagittal and axial T1, T2 and STIR images were obtained. COMPARISON STUDY: X-ray study dated 02/03/2020, MRI dated 03/12/2017 OBSERVATIONS: The vertebral bodies and posterior elements appear intact. There is no abnormal bony signal present t o suggest a marrow replacement process. There is a prominent levoscoliosis. L1-2: The disc is degenerated. There is a circumferential disc bulge. There is minimal triangular spi nal canal narrowing. There is moderate right-sided foraminal narrowing L2-3: There is marked increased T2 signal of the disc which is markedly widened. There is no cyst sig nificant marrow edema within either the L2 or L3 vertebral bodies. While discitis cannot be excluded with certainty, the findings favor a pseudoarthrosis. Does this patient have a history of prior traum a? L3-4: There is a circumferential disc bulge. There is moderate to severe spinal stenosis. There is se mariya right-sided foraminal narrowing and mild left-sided foraminal narrowing L4-5: There is a circumferential disc bulge. There is facet joint arthropathy. There is moderate spin al stenosis. There is moderate bilateral foraminal narrowing. There is a grade 1 spinal listhesis of L4 on L5 L5-S1: There is a circumferential disc bulge and moderate spinal stenosis. There is mild to moderate left-sided foraminal narrowing. There is facet joint arthropathy. The conus medullaris and cauda equina appear normal. There is no convincing evidence of epidural abscess although the diagnostic quality of the study is l imited, and the patient was unable to tolerate was contrast images.. IMPRESSION: 1. Technically limited study. The patient was unable to complete on the images due to severe pain 2. Marked widening of the L2-3 disc which demonstrates markedly increased T2 signal. There is no surr ounding paravertebral edema, and there are no convincing findings of adjacent vertebral body osteomye litis. Diagnostic considerations include a pseudoarthrosis versus discitis. A pseudoarthrosis is favo red. Does this patient have history of prior trauma? 3. Advanced multilevel spondylytic change. Multilevel spinal stenosis which is moderate to severe at the L3-4 level, and moderate at the L4-5 and L5-S1 levels. 4. Multilevel foraminal narrowing. ACT 112: Negative or not required by law. Electronically signed by: Nba Hernandez M.D. 02/05/2020 1:53 PM
[2020-02-05] MEDS: AMIODARONE / D5W 360 MG/200 ML BAG IV SCH (14:59)
[2020-02-05] MEDS: DAPTOmycin 500 MG in SYRINGE 0 ML IV SCH (15:35)
[2020-02-05] MEDS ORDERED: WARFARIN SOD 10 MG TAB PO SCH (16:00)
[2020-02-05] MEDS ORDERED: WARFARIN SOD 5 MG TAB PO SCH (16:00)
--- NOTE | 2020-02-05 17:06 | Electrocardiogram Report ---
Test Reason : Blood Pressure : / mmHG Vent. Rate : 137 BPM Atrial Rate : 137 BPM P-R Int : 112 ms QRS Dur : 082 ms QT Int : 298 ms P-R-T Axes : 000 -28 -27 degrees QTc Int : 449 ms Atrial flutter Abnormal ECG Confirmed by Srhavan Menchaca ([id number]) on 02/05/2020 5:06:21 PM Referred By: REFERRED SELF Confirmed By:Jose Menchaca
--- NOTE | 2020-02-05 17:07 | Electrocardiogram Report ---
Test Reason : Blood Pressure : / mmHG Vent. Rate : 149 BPM Atrial Rate : 298 BPM P-R Int : 000 ms QRS Dur : 080 ms QT Int : 298 ms P-R-T Axes : 000 -17 205 degrees QTc Int : 469 ms Atrial flutter with 2:1 A-V conduction Nonspecific ST and T wave abnormality Abnormal ECG When compared with ECG of 04-FEB-2020 06:52, Atrial flutter has replaced Sinus rhythm T wave inversion now evident in Inferior leads Confirmed by Shravan Menchaca ([id number]) on 02/05/2020 5:07:14 PM Referred By: REFERRED SELF Confirmed By:Jose Menchaca
[2020-02-05] MEDS: MULTIVITAMIN TAB PO SCH (21:02)
[2020-02-05] MEDS: allopurinoL 100 MG TAB PO SCH (21:02)
[2020-02-05] MEDS: ASPIRIN 81 MG ECTAB PO SCH (21:02)
[2020-02-05] MEDS ORDERED: PHARMACY GLYCEMIC MGMT CONSULT PRN (21:03)
--- NOTE | 2020-02-05 21:10 | Hospitalist Progress Note ---
Date of Service February 05, 2020 Assessment & Plan (1) Severe sepsis: Presented with rapid AF and hypotension. (hypotension may have been secondary to rapid AF) WBC 14,100. C-reactive protein 32.7. Procalcitonin 14.23. Met criteria for severe sepsis per current CMS guidelines. Lactate 1.6. Blood cultures obtained in ED. Broad spectrum antibiotic therapy started. Received IV fluids. Blood cultures growing gram positive cocci in chains. Consider endocarditis. Urine culture growing gram neg rods. Cellulitis abdominal wall. Venous stasis ulcers. Severe back pain- MRI worrisome for discitis L2/L3. Currently receiving vancomycin and piperacillin / tazobactam. Change from vancomycin to daptomycin for gram + coverage- better efficacy, lower toxicity. Continue piperacillin / tazobactam. Consult ID once culture data more complete. (2) Bacteremia: As noted above. (3) UTI (urinary tract infection): As noted above. (4) Infected ulcer of skin: Chronic venous stasis ulcers. Wound cultures growing Staph sp, group B beta strep, gram negative bacilli. Antibiotic management as noted above. (5) Cellulitis of abdominal wall: As noted above. (6) Back pain: Chronic back pain, but worse. Plain films showed degenerative changes. US negative for AAA. Must consider possibility of discitis / osteomyelitis in light of bacteremia. MRI worrisome for discitis L2/L3. Consult Ortho Spine. Continue antibiotics as noted above. (7) Hypotension: BP's as low as 70/50 in ED. Hypotension probably secondary to rapid AF +/- sepsis. (8) Atrial fibrillation with RVR: History of PAF. Presented with AF / RVR. Cardioverted in ED. Went back into AF. Amiodarone infusion being initiated by Cardiology. Continue metoprolol. Continue warfarin, titrate dose. (9) Supratherapeutic INR: INR 8.7 at time of admission. Elevated INR secondary to warfarin therapy. Received vitamin K. INR this morning 1.6.. (10) Hypertension: Titrate cardiovascular meds as discussed above. (11) Acute kidney injury: History of CKD III with baseline creatinine about 1. Creatinine at time of admission 2.62. SAJAN, probably secondary to sepsis. Nephrology consulted. Received IV fluids. Management of sepsis as noted. Creatinine today 1.51. Follow. 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 Usually managed with metformin. Random blood sugars as high as 243 day of admission. Hgb A1c pending. Lantus / NovoLog per protocol. FBS today = 110. Blood sugar this afternoon 324. Consult Pharmacy for glycemic management. (13) Hypothyroidism: Continue levothyroxine. (14) Morbid obesity: Wt 138 kg. BMI 57.8. Morbid obesity contributing to medical problems. Heart healthy, diabetic diet. (15) Venous ulcers of both lower extremities: Consult Wound Care Nursing. (16) COVID-19 ruled out: Recent upper respiratory symptoms, fever, lymphopenia raised concern about possible COVID-19. SARS-CoV-2 PCR negative. (17) DVT prophylaxis: Continue warfarin. (18) Discharge planning issues: Discharge disposition to be determined. Internal Medicine follow-up with Dr. Whitmore. Cardiology follow-up with Dr. Foster. Admission and Anticipated Discharge Date Admission Date: February 03, 2020 Subjective Recheck for multiple problems. Patient seen in their room around 0940. Remains in AF with rapid ventricular rate. No chest pain. Persistent severe low back pain. No fever. Review of Systems: Constitutional- as noted above. Cardiac- as noted above. Pulmonary- as noted above. GI- no nausea, vomiting, diarrhea, melena, hematochezia. - Otherwise, as noted above. Physical Exam Constitutional: + morbidly obese; no acute distress Respiratory: no respiratory distress Auscultation: lungs clear to auscultation bilaterally Cardiovascular: Rate/Rhythm: + tachycardic and + irregularly irregular Heart Sounds: no gallop Vessels: + JVD Extremities: + edema (1+ pretibia l); no calf tenderness Gastrointestinal (Abdomen): normal bowel sounds, soft, nontender, no hepatosplenomegaly Musculoskeletal: Extremities: no cyanosis Skin: + rash (intensely erythema left lower abdomen & groin with serous drainage) and + ulcer (leg ulcers bandaged) Psychiatric: Orientation: alert and oriented x 3 Results & Data Results & Data ([facility]) Vital Signs (Past 12 Hours) Vital Signs Temp Pulse Pulse Resp BP BP BP 02/05/20 19:40 36.9 C 135 H 23 112/87 02/05/20 17:06 167 H 108/82 02/05/20 15:39 36.8 C 133 H 23 108/82 02/05/20 11:15 37.0 C 138 H 22 121/75 Pulse Ox 02/05/20 19:40 95 02/05/20 17:06 02/05/20 15:39 94 02/05/20 11:15 94 Laboratory Results 02/05/20 06:20 02/05/20 06:20 Microbiology 02/03/20 15:41 Leg,Right Gram Stain - Final 02/03/20 15:41 Leg,Right Wound Culture - Preliminary Staphylococcus species Group B Beta Strep Proteus mirabilis 02/03/20 13:55 Blood Aerobic Blood Culture - Preliminary Group B Beta Strep 02/03/20 13:55 Blood Anaerobic Blood Culture - Final 02/03/20 14:35 Urine,Clean Catch Urine Culture - Final Escherichia coli 02/03/20 15:41 Leg,Left Gram Stain - Final 02/03/20 15:41 Leg,Left Wound Culture - Preliminary Staphylococcus species Group B Beta Strep 02/03/20 13:57 Blood Aerobic Blood Culture - Preliminary Gram positive cocci in chains 02/03/20 13:57 Blood Anaerobic Blood Culture - Preliminary Gram positive cocci in chains
[2020-02-05] MEDS: HYDROmorphone INJ 0.5 MG/0.5 ML SYR IV PRN (23:43)
[2020-02-06] MEDS: PIPERACILLIN/TAZOBACTAM 4.5 GM in DEXTROSE 5% 100 ML IV SCH ×3 (01:14→16:10)
[2020-02-06] MEDS: AMIODARONE / D5W 360 MG/200 ML BAG IV SCH ×2 (03:00→16:07)
[2020-02-06] MEDS: HYDROmorphone INJ 0.5 MG/0.5 ML SYR IV PRN ×6 (04:52→19:10)
[2020-02-06] MEDS: INSULIN ASPART 100 UNITS/ML 3 ML PEN SC SCH ×5 (04:55→20:12)
[2020-02-06 06:50] LABS: Hematocrit (blood only) 29.5 % (37-47); Hemoglobin 9.8 g/dL (12.0-16.0); Mean Corpuscular Hemoglobin 26.6 pg (25-34); Mean Corpuscular Hgb Conc 33.2 g/dL (32-36); Mean Corpuscular Volume 80.2 fL (80-100); Platelet Count 284 K/uL (130-400); RDW Coefficient of Variation 15.8 % (11.5-14.5); RDW Standard Deviation 46.5 fL (36.4-46.3); Red Blood Count 3.68 M/uL (4.2-5.4); White Blood Count 13.04 K/uL (4.8-10.8)
[2020-02-06 07:00] LABS: INR 2.8 (0.9-1.1); Prothrombin Time 27.7 Seconds (9.0-12.0)
[2020-02-06 07:19] LABS: BUN Creatinine Ratio 28.4 (10-20); Calcium 8.6 mg/dl (8.5-10.1); Creatinine Clr Calc Pharmacy 60.3 ml/min; Est GFR (African American) 55.1; Est GFR (Non-African American) 47.5; Potassium 3.5 mmol/L (3.5-5.1)
[2020-02-06] MEDS: METOPROLOL TARTRATE 1 MG/ML VIAL IV PRN (07:57)
[2020-02-06] MEDS: INSULIN GLARGINE SOLOSTAR 100 UNITS/ML 3 ML PEN SC SCH (07:59)
[2020-02-06] MEDS: LEVOTHYROXINE SODIUM 50 MCG TABLET PO SCH (08:00)
[2020-02-06] MEDS: CHOLECALCIFEROL 1,000 UNITS 25 MCG TAB PO SCH (08:01)
[2020-02-06] MEDS: METOPROLOL TARTRATE 50 MG TAB PO SCH ×2 (08:01→19:52)
[2020-02-06] MEDS: PANTOprazole 40 MG TAB PO SCH (08:01)
[2020-02-06] MEDS: MAGNESIUM OXIDE 400 MG TAB PO SCH ×2 (08:01→19:48)
[2020-02-06] MEDS ORDERED: dilTIAZem HCl 5 MG/ML 5 ML VIAL IV STA (08:51)
[2020-02-06] MEDS ORDERED: STAT IV Infusion **Titration per Protocol STA (08:51)
[2020-02-06] MEDS ORDERED: POTASSIUM CHLORIDE CRTAB 20 MEQ TABCR PO ONE (08:52)
[2020-02-06] MEDS ORDERED: POTASSIUM CHLORIDE CRTAB 20 MEQ TABCR PO STA (08:57)
[2020-02-06] MEDS ORDERED: INSULIN GLARGINE SOLOSTAR 100 UNITS/ML 3 ML PEN SC SCH ×2 (09:00→21:00)
--- NOTE | 2020-02-06 09:03 | Cardiology Progress Note ---
Date of Service February 06, 2020 Assessment & Plan (1) Low back pain: (2) Ambulatory dysfunction: (3) Morbid obesity: (4) Supratherapeutic INR: (5) Atrial fibrillation with RVR: (6) Sepsis due to alpha-hemolytic Streptococcus: The patient will have orthopedics see her today and review her MRI scan which suggested discitis. I am uncertain as to whether the discitis can be infectious. She continues in atrial fibrillation with high heart rates despite an amiodarone infusion and metoprolol. I am going to add diltiazem infusion for better heart rate control. Although she does not examine as being in congestive heart failure she is markedly positive in regard to fluids and I will give her 40 of Lasix today. Her INR today is 2.5. The plan is for transesophageal echocardiogram with potential cardioversion. Admission and Anticipated Discharge Date Admission Date: February 03, 2020 Subjective The patient is still having back pain. No shortness of breath or orthopnea. Review of Systems Review of Systems: All systems reviewed & are unremarkable except as noted in HPI & below Nothing additional to add. Physical Exam Physical Exam: General: no acute distress and stated age Head: normocephalic, no masses, lesions, tenderness or abnormalities Eyes: conjunctiva are pink and non-injected, sclera clear Neck: supple, no adenopathy, no bruits, normal jugular venous pulse, no hepatojugular reflux Chest: normal shape and normal respiratory effort Lungs: clear to auscultation and percussion Cardiac Exam: - regular rate & rhythm, no murmurs gallops or rubs - normal S1, normal S2 Pulses: 2(+) throughout Abdomen: abdomen soft, non-tender, no abnormal masses and no hepatosplenomegaly Musculoskeletal: no gait disturbance, no joint inflammation, no deforming arthritis Extremities: no edema and no cyanosis Neuro: grossly normal exam Results & Data ([facility]) Vital Signs (Past 12 Hours) Vital Signs Temp Pulse Pulse Resp BP Pulse Ox 02/06/20 07:57 140 H 02/06/20 07:18 36.9 C 119 H 19 135/77 96 02/06/20 03:59 144 H 20 95 02/06/20 03:06 36.9 C 102 H 20 137/96 94 02/05/20 23:53 156 H 02/05/20 23:49 36.7 C 135 H 20 136/97 98 10/05/20 23:39 139 H 26 H 95 Laboratory Results Laboratory Results - last 24 hr 02/05/20 02/05/20 02/05/20 11:14 16:28 16:30 WBC RBC Hgb Hct MCV MCH MCHC RDW Std Deviation RDW Coeff of Yvette Plt Count MPV PT INR Sodium Potassium Chloride Carbon Dioxide Anion Gap BUN Creatinine Est Cr Clr Drug Dosing Est GFR ( Amer) Est GFR (Non-Af Amer) BUN/Creatinine Ratio Glucose POC Glucose 271 H 324 H* 315 H* Calcium 02/05/20 02/05/20 02/05/20 20:51 20:54 23:37 WBC RBC Hgb Hct MCV MCH MCHC RDW Std Deviation RDW Coeff of Yvette Plt Count MPV PT INR Sodium Potassium Chloride Carbon Dioxide Anion Gap BUN Creatinine Est Cr Clr Drug Dosing Est GFR ( Amer) Est GFR (Non-Af Amer) BUN/Creatinine Ratio Glucose POC Glucose 331 H* 333 H* 204 H Calcium 02/06/20 02/06/20 02/06/20 04:52 06:27 06:27 WBC 13.04 H RBC 3.68 L Hgb 9.8 L Hct 29.5 L MCV 80.2 MCH 26.6 MCHC 33.2 RDW Std Deviation 46.5 H RDW Coeff of Yvette 15.8 H Plt Count 284 MPV 10.0 PT 27.7 H INR 2.8 H Sodium Potassium Chloride Carbon Dioxide Anion Gap BUN Creatinine Est Cr Clr Drug Dosing Est GFR ( Amer) Est GFR (Non-Af Amer) BUN/Creatinine Ratio Glucose POC Glucose 159 H Calcium 02/06/20 02/06/20 06:27 07:40 WBC RBC Hgb Hct MCV MCH MCHC RDW Std Deviation RDW Coeff of Yvette Plt Count MPV PT INR Sodium 135 L Potassium 3.5 Chloride 105 Carbon Dioxide 23 Anion Gap 7.0 BUN 33 H Creatinine 1.17 D Est Cr Clr Drug Dosing 60.3 Est GFR ( Amer) 55.1 Est GFR (Non-Af Amer) 47.5 BUN/Creatinine Ratio 28.4 H Glucose 158 H POC Glucose 155 H Calcium 8.6 Medications Administered Current Inpatient Medications Acetaminophen (Acetaminophen 325 Mg Tab) 325 mg PO Q6H PRN PRN Reason: Pain or Fever Stop: 03/04/20 12:29 Allopurinol (Allopurinol 100 Mg Tab) 200 mg PO HS MONIKA Stop: 03/04/20 20:59 Last Admin: 02/05/20 21:02 Dose: 200 mg Documented by: Aspirin (Aspirin 81 Mg Ectab) 81 mg PO HS MONIKA Stop: 03/04/20 20:59 Last Admin: 02/05/20 21:02 Dose: 81 mg Documented by: Dextrose (Dextrose 50% 50 Ml Syringe) 25 - 50 ml IV UD PRN; Protocol PRN Reason: Hypoglycemia Protocol Stop: 03/04/20 14:26 Diltiazem HCl (Diltiazem Hcl 5 Mg/Ml 5 Ml Vial) 5 mg IV NOW STA Stop: 02/06/20 08:52 Diphenhydramine HCl (Diphenhydramine Hcl 50 Mg/Ml Vial) 12.5 mg IV Q12 PRN PRN Reason: Allergic Reaction Stop: 03/04/20 12:29 Glucagon (Glucagon For Inj 1 Mg Vial) 1 mg SQ UD PRN; Protocol PRN Reason: Hypoglycemia Protocol Stop: 03/04/20 14:26 Glucose (Glucose 10 Tabs/Tube) 4 - 8 tabs PO UD PRN; Protocol PRN Reason: Hypoglycemia Protocol Stop: 03/04/20 14:26 Glucose (Glucose 40% Gel 15 Gm Tube) 15 - 30 gm PO UD PRN; Protocol PRN Reason: Hypoglycemia Protocol Stop: 03/04/20 14:26 Hydromorphone HCl (Hydromorphone Inj 0.5 Mg/0.5 Ml Syr) 0.5 mg IV Q2H PRN PRN Reason: Moderate Pain Stop: 02/19/20 09:49 Last Admin: 02/06/20 07:56 Dose: 0.5 mg Documented by: Hydromorphone HCl (Hydromorphone Inj 1 Mg/Ml Syringe) 1 mg IV Q2H PRN PRN Reason: Severe Pain Stop: 02/19/20 09:49 Last Admin: 02/05/20 19:44 Dose: 1 mg Documented by: Promethazine HCl 6.25 mg/ (Sodium Chloride) 50.25 mls @ 201 mls/hr IV Q6H PRN PRN Reason: Nausea And Vomiting Stop: 03/04/20 12:19 Piperacillin Sod/Tazobactam (Sod 4.5 gm/ Dextrose) 120 mls @ 30 mls/hr IV Q8H [facility]; Protocol Stop: 02/12/20 19:59 Last Admin: 02/06/20 08:00 Dose: 28.8 mls/hr Documented by: Daptomycin 500 mg/ Syringe 10 mls @ 5 mls/min IV Q24H [facility]; Protocol Stop: 02/18/20 13:59 Last Admin: 02/05/20 15:35 Dose: 5 mls/min Documented by: Amiodarone HCl/Dextrose (Nexterone / D5w) 360 mg in 200 mls @ 16.667 mls/hr IV .Q12H [facility] Stop: 03/06/20 15:44 Last Admin: 02/06/20 03:00 Dose: 0.5 mg/min, 16.7 mls/hr Documented by: Diltiazem HCl 125 mg/ Dextrose 125 mls @ 5 mls/hr IV .Q24H [facility]; Protocol Stop: 03/07/20 08:59 Furosemide 40 mg/ Syringe 4 mls @ 4 mls/min IV ONE ONE Stop: 02/06/20 08:59 Insulin Aspart (Insulin Aspart 100 Units/Ml 3 Ml Pen) 0 units SC ACHS [facility]; Protocol Stop: 03/04/20 16:29 Last Admin: 02/06/20 07:58 Dose: Not Given Documented by: Insulin Glargine (Insulin Glargine Solostar 100 Units/Ml 3 Ml Pen) 18 units SC BID [facility]; Protocol Stop: 03/04/20 20:59 Last Admin: 02/06/20 07:59 Dose: 18 units Documented by: Levothyroxine Sodium (Levothyroxine Sodium 50 Mcg Tablet) 50 mcg PO DAILYBB [facility] Stop: 03/05/20 06:29 Last Admin: 02/06/20 08:00 Dose: 50 mcg Documented by: Magnesium Oxide (Magnesium Oxide 400 Mg Tab) 400 mg PO BID [facility] Stop: 03/04/20 20:59 Last Admin: 02/06/20 08:01 Dose: 400 mg Documented by: Metoprolol Tartrate (Metoprolol Tartrate 50 Mg Tab) 50 mg PO BID [facility] Stop: 03/05/20 10:44 Last Admin: 02/06/20 08:01 Dose: 50 mg Documented by: Metoprolol Tartrate (Metoprolol Tartrate 1 Mg/Ml Vial) 5 mg IV Q4 PRN PRN Reason: sustained HR > 115 Stop: 03/06/20 00:00 Last Admin: 02/06/20 07:57 Dose: 5 mg Documented by: Miscellaneous (Carbohydrates For Hypoglycemia ) 15 - 30 gm PO UD PRN PRN Reason: Hypoglycemia Protocol Stop: 03/04/20 14:26 Miscellaneous (Stat Iv Infusion Titration Per Protocol) 1 ea N/A NOW STA Stop: 02/06/20 08:52 Miscellaneous Information (Piperacill/Tazobac Consult Active) 1 ea N/A UD PRN PRN Reason: Consult Stop: 03/04/20 12:28 Miscellaneous Information (Daptomycin Consult Active) 1 ea N/A UD PRN PRN Reason: Consult Stop: 03/05/20 13:40 Miscellaneous Information (Pharmacy Glycemic Mgmt Consult) 1 ea N/A UD PRN PRN Reason: Consult Stop: 03/06/20 21:02 Multivitamins (Multivitamin Tab) 1 tab PO [facility] Stop: 03/04/20 20:59 Last Admin: 02/05/20 21:02 Dose: 1 tab Documented by: Nystatin (Nystatin Powder 15gm Btl) 1 appln EXT TID PRN PRN Reason: Rash Stop: 03/05/20 12:39 Oxycodone HCl (Oxycodone Hcl Ir 5 Mg Tab (Immediate Release)) 5 mg PO Q6H PRN PRN Reason: Moderate Pain Stop: 02/17/20 12:18 Last Admin: 02/04/20 11:43 Dose: 5 mg Documented by: Pantoprazole Sodium (Pantoprazole 40 Mg Tab) 40 mg PO [facility] Stop: 03/05/20 08:59 Last Admin: 02/06/20 08:01 Dose: 40 mg Documented by: Potassium Chloride (Potassium Chloride 20 Meq Tabcr) 20 meq PO NOW STA Stop: 02/06/20 08:58 Vitamin D (Cholecalciferol 1,000 Units 25 Mcg Tab) 2,000 units PO [facility] Stop: 03/05/20 08:59 Last Admin: 02/06/20 08:01 Dose: 2,000 units Documented by: Warfarin Sodium (Warfarin Sod 5 Mg Tab) 5 mg PO DAILY@1600 [facility] Stop: 03/07/20 15:59
[2020-02-06] MEDS ORDERED: FUROSEMIDE 40 MG in SYRINGE 0 ML IV ONE (09:15)
[2020-02-06] MEDS: dilTIAZem HCL 125 MG in DEXTROSE 5% 100 ML IV SCH ×2 (09:58→23:51)
--- NOTE | 2020-02-06 12:40 | Anesthesiology Consultation ---
Date of Service February 06, 2020 Covid 19 negative on 02/04/20. Assessment & Plan (1) Encounter for pre-operative examination: Chart Review Chart Review: Acceptable Risk for Surgery and Patient NOT seen in Pre Admission Testing Consults Requested none cardiology is following History Surgery Operation Date: 02/07/20 07:15 Proposed Procedures p Transesophageal Echo w/Anesthesia - Ritesh Lino DO s Cardioversion - Ritesh Lino DO Height/Weight Height: 5 ft 1 in Weight: 138.6 kg Allergies Allergy/AdvReac Type Severity Reaction Status Date / Time Penicillins Allergy Intermediate URTICARIA; Verified 02/03/20 11:07 PER PT, CAN TAKE AMOXICILLIN erythromycin base AdvReac Mild GI UPSET Verified 02/03/20 11:07 Medications Home Medications Medication Instructions Recorded Confirmed Last Taken allopurinol 100 mg tablet 200 mg PO HS tab 02/15/18 02/03/20 02/02/20 aspirin 81 mg chewable tablet 81 mg PO HS 02/15/18 02/03/20 02/02/20 bumetanide 1 mg tablet 1 mg PO QAM 02/15/18 02/03/20 01/03/20 cholecalciferol (vitamin D3) 25 2,000 units PO QAM 02/15/18 02/03/20 02/02/20 mcg (1,000 unit) capsule hydralazine 10 mg tablet 10 mg PO TID 02/15/18 02/03/20 02/02/20 ibuprofen 400 mg tablet 400 mg PO BID 02/15/18 02/03/20 02/03/20 lisinopril 40 mg tablet 40 mg PO HS 02/15/18 02/03/20 02/02/20 metoprolol tartrate 100 mg tablet 100 mg PO BID 02/15/18 02/03/20 02/02/20 multivitamin 1 tab PO HS 02/15/18 02/03/20 02/02/20 omeprazole 20 mg capsule,delayed 20 mg PO QAM 02/15/18 02/03/20 02/02/20 release spironolactone 25 mg tablet 25 mg PO QAM 02/15/18 02/03/20 02/01/20 tramadol 50 mg tablet 50 mg PO QID PRN 02/15/18 02/03/20 02/03/20 warfarin 7.5 mg tablet 7.5 mg PO SUTUWETHFRSA tab 02/15/18 02/03/20 02/01/20 levothyroxine 50 mcg capsule 50 mcg PO QAM cap 03/03/18 02/03/20 02/02/20 metformin 500 mg tablet 2,000 mg PO HS 03/15/18 02/03/20 02/02/20 amlodipine 10 mg PO QAM 02/03/20 02/03/20 02/02/20 magnesium oxide 400 mg PO MOWEFR 02/03/20 02/03/20 02/02/20 repaglinide 0.5 mg PO AC 02/03/20 02/03/20 02/02/20 rosuvastatin [Crestor] 10 mg PO HS 02/03/20 02/03/20 02/02/20 warfarin 10 mg PO MO 02/03/20 02/03/20 02/02/20 Active Medications Generic Name Dose Route Start Last Admin Trade Name Freq PRN Reason Stop Dose Admin Allopurinol 200 mg 02/03/20 21:00 02/05/20 21:02 Allopurinol 100 Mg Tab PO 03/04/20 20:59 200 mg HS MONIKA Administration Aspirin 81 mg 02/03/20 21:00 02/05/20 21:02 Aspirin 81 Mg Ectab PO 03/04/20 20:59 81 mg HS MONIKA Administration Hydromorphone HCl 0.5 mg 02/05/20 09:50 02/06/20 10:17 Hydromorphone Inj 0.5 Mg/0.5 Ml Syr IV 02/19/20 09:49 0.5 mg Q2H PRN Administration Moderate Pain Hydromorphone HCl 1 mg 02/05/20 09:50 02/05/20 19:44 Hydromorphone Inj 1 Mg/Ml Syringe IV 02/19/20 09:49 1 mg Q2H PRN Administration Severe Pain Piperacillin Sod/Tazobactam 120 mls @ 30 mls/hr 02/03/20 20:00 02/06/20 12:17 Sod 4.5 gm/ Dextrose IV 02/12/20 19:59 Infused Q8H MONIKA Infusion Protocol Daptomycin 500 mg/ Syringe 10 mls @ 5 mls/min 02/04/20 14:00 02/05/20 15:35 IV 02/18/20 13:59 5 mls/min Q24H MONIKA Administration Protocol Amiodarone HCl/Dextrose 360 mg in 200 mls @ 16.667 mls/hr 02/05/20 15:45 02/06/20 03:00 Nexterone / D5w IV 03/06/20 15:44 0.5 mg/min .Q12H MONIKA 16.7 mls/hr Administration 0.5 MG/MIN Diltiazem HCl 125 mg/ Dextrose 125 mls @ 5 mls/hr 02/06/20 09:00 02/06/20 09:58 IV 03/07/20 08:59 5 mg/hr .Q24H MONIKA 5 mls/hr Administration Protocol 5 MG/HR Insulin Aspart 0 units 02/03/20 16:30 02/06/20 07:58 Insulin Aspart 100 Units/Ml 3 Ml Pen SC 03/04/20 16:29 Not Given ACHS MONIKA Protocol Insulin Glargine 18 units 02/03/20 21:00 02/06/20 07:59 Insulin Glargine Solostar 100 Units/Ml 3 Ml Pen SC 03/04/20 20:59 18 units BID MONIKA Administration Protocol Levothyroxine Sodium 50 mcg 02/04/20 06:30 02/06/20 08:00 Levothyroxine Sodium 50 Mcg Tablet PO 03/05/20 06:29 50 mcg DAILYBB MONIKA Administration Magnesium Oxide 400 mg 02/03/20 21:00 02/06/20 08:01 Magnesium Oxide 400 Mg Tab PO 03/04/20 20:59 400 mg BID MONIKA Administration Metoprolol Tartrate 50 mg 02/04/20 10:45 02/06/20 08:01 Metoprolol Tartrate 50 Mg Tab PO 03/05/20 10:44 50 mg BID MONIKA Administration Metoprolol Tartrate 5 mg 02/04/20 22:55 02/06/20 07:57 Metoprolol Tartrate 1 Mg/Ml Vial IV 03/06/20 00:00 5 mg Q4 PRN Administration sustained HR > 115 Multivitamins 1 tab 02/03/20 21:00 02/05/20 21:02 Multivitamin Tab PO 03/04/20 20:59 1 tab HS MONIKA Administration Oxycodone HCl 5 mg 02/03/20 12:19 02/04/20 11:43 Oxycodone Hcl Ir 5 Mg Tab (Immediate Release) PO 02/17/20 12:18 5 mg Q6H PRN Administration Moderate Pain Pantoprazole Sodium 40 mg 02/04/20 09:00 02/06/20 08:01 Pantoprazole 40 Mg Tab PO 03/05/20 08:59 40 mg QAM MONIKA Administration Vitamin D 2,000 units 02/04/20 09:00 02/06/20 08:01 Cholecalciferol 1,000 Units 25 Mcg Tab PO 03/05/20 08:59 2,000 units QAM MONIKA Administration Past Medical History Medical History (Updated 02/06/20 @ 12:46 by Suhail Davenport MD) Acute CHF Anemia Atrial fibrillation with RVR CKD stage 3 secondary to diabetes Complicated UTI (urinary tract infection) Complicated UTI (urinary tract infection) CVA (cerebral vascular accident) Diabetes mellitus type 2 with complications Dizziness DM II (diabetes mellitus, type II), controlled Dyslipidemia Gastric ulcer Gastric ulcer due to Helicobacter pylori Gout H pylori ulcer H/O Moh's micrographic surgery for skin cancer H/O: upper GI bleed Heme positive stool HTN (hypertension) Hx of basal cell carcinoma Hypertension Hypokalemia Hypomagnesemia Hypothyroidism Infected ulcer of skin Infected ulcer of skin Morbid obesity Osteoarthritis Past Family History Family History Mother Heart disease Diabetes Father Stroke Hypertension Other No pertinent family history Past Surgical History Surgical History H/O basal cell carcinoma excision H/O left knee surgery H/O repair of rotator cuff History of arthroplasty of left knee History of carpal tunnel surgery History of carpal tunnel surgery Status post Mohs surgery Social History Smoking Status: Never smoker Do You Dip or Chew Tobacco: No Hx Alcohol Use: Yes Alcohol type: wine alcohol intake frequency: holidays/special occasions only Hx Substance Use: No substance use type: does not use Physical Exam Vital Signs Last Vital Signs Temp 36.8 C 02/06/20 11:13 Pulse 130 H 02/06/20 11:13 Resp 18 02/06/20 11:13 BP 134/80 02/06/20 11:13 Pulse Ox 97 02/06/20 11:13 Testing Laboratory Results 02/06/20 06:27 02/06/20 06:27 PT 27.7 Seconds (9.0-12.0) H 02/06/20 06:27 INR 2.8 (0.9-1.1) H 02/06/20 06:27 Hemoglobin A1c 7.6 % (4.5-5.6) H 02/03/20 13:57 Urine Color Dark Yellow 02/03/20 14:35 Urine Appearance Cloudy (Clear) A 02/03/20 14:35 Urine pH 5.0 (4.5-7.5) 02/03/20 14:35 Ur Specific [place] 1.024 (1.000-1.030) 02/03/20 14:35 Urine Protein 1+ (Negative) H 02/03/20 14:35 Urine Glucose (UA) Negative (Negative) 02/03/20 14:35 Urine Ketones Trace (Negative) H 02/03/20 14:35 Urine Nitrite Positive (Negative) A 02/03/20 14:35 Ur Leukocyte Esterase 2+ (Negative) H 02/03/20 14:35 Urine WBC (Auto) >30 /hpf (0-5) H 02/03/20 14:35 Urine RBC (Auto) 5-10 /hpf (0-4) H 02/03/20 14:35 U Hyaline Cast (Auto) Not Reportable 02/03/20 14:35 U Epithel Cells (Auto) >30 /lpf (0-5) H 02/03/20 14:35 Urine Bacteria (Auto) 2+ (Negative) H 02/03/20 14:35 02/03/20 15:41 Gram Stain - Final Leg,Right Wound Culture - Final Staphylococcus aureus Group B Beta Strep Proteus mirabilis 02/03/20 15:41 Gram Stain - Final Leg,Left Wound Culture - Final Staphylococcus aureus Group B Beta Strep 02/03/20 13:57 Aerobic Blood Culture - Final Blood Group B Beta Strep Anaerobic Blood Culture - Final Group B Beta Strep 02/03/20 13:55 Aerobic Blood Culture - Preliminary Blood Group B Beta Strep Anaerobic Blood Culture - Final 02/03/20 14:35 Urine Culture - Final Urine,Clean Catch Escherichia coli 02/06/20 02/06/20 02/06/20 11:28 07:40 04:52 POC Glucose 172 H 155 H 159 H 02/05/20 23:37 POC Glucose 204 H Electrocardiogram Date: 02/06/20 Findings: + AFIB @ (150) Chest X-Ray Date: 02/03/20 XR chest 1V portable HISTORY: afib s/p cardioversion COMPARISON: Chest 07/19/2017. FINDINGS: The heart remains mildly enlarged. No pleural effusions. No pneumothorax. No new focal lung consolidations to suggest pneumonia. No evidence for pulmonary edema. Stable right hilar enlargement. IMPRESSION: No change compared to the prior study. No acute process within the chest. Stable cardiomegaly and right hilar enlargement. ACT 112: Negative or not required by law. Electronically signed by: Suhail Nolen M.D. 02/03/2020 2:20 PM Dictated: 02/03/20 1419 Transcribed: 02/03/20 1419 Echocardiogram Date: 02/04/20 EF: 55-60 LV Function: normal Valvular Disease: + no significant valvular disease
--- NOTE | 2020-02-06 13:08 | Pharmacy Report ---
Glycemic Control Consultation - Date of Service February 06, 2020 - Scope Scope: Glycemic Pharmacist consulted for glycemic control and to write orders per [facility] inpatient glycemic control protocol. - Objective Weight: 138.6 kg Accuchecks BSG (last 24hrs): 02/05/20 02/05/20 02/05/20 16:28 16:30 20:51 Glucose POC Glucose 324 H* 315 H* 331 H* 02/05/20 02/05/20 02/06/20 20:54 23:37 04:52 Glucose POC Glucose 333 H* 204 H 159 H 02/06/20 02/06/20 02/06/20 06:27 07:40 11:28 Glucose 158 H POC Glucose 155 H 172 H Laboratory Data (last 24hrs): 02/06/20 06:27 Potassium 3.5 Carbon Dioxide 23 Anion Gap 7.0 Creatinine 1.17 D Est Cr Clr Drug Dosing 60.3 HbA1c: Hemoglobin A1c 7.6 % (4.5-5.6) H 02/03/20 13:57 - Recent Pertinent Medications Outpatient Anti-diabetic Regimen: * Metformin 2,000 mg HS, repaliginide 0.5 mg AC * A1c = 7.6 % 02/03/20 The patient is currently receiving: * Basal insulin: Lantus 18 units every 12 hours * Correctional Insulin: Novolog Correction per scale ACHS Goal Range: Low 100 mg/dL - High 140 mg/dL Correction Factor: 20 mg/dL/unit * Prandial insulin: Per carb ratio of 1 unit per 8 grams CHO consumed Risk Factors for Insulin Resistance: * Steroids: * Infection: * Pressors: * IVF: Amiodarone and diltiazem gtt in dextrose * Recent Surgery * Diet: * Mechanical Ventilation: - Assessment & Plan Assessment & Plan: ASSESSMENT: * Patient admitted 02/03/20 with AFIB w/ RVR, grp B strep bacteremia + cellulitis cultures growing multiple organisms * Patient currently on amiodarone and diltiazem infusion diluted in dextrose, and daptomycin + zosyn (also in dextrose) * Fasting BSGs have been mostly in goal range with 18 units of lantus BID- will continue- patient will be NPO at midnight, will reduce PM dose * Prandial BSGS have been elevated, tighted CF/CR last PM with improvement today- will continue this for now PLAN FOR INPATIENT GLYCEMIC CONTROL: * Holding outpatient oral diabetes medications * Basal insulin * Lantus 18 units SQ BID- * Will do ~25 % reduction this PM in anticipation of NPO status tomorrow * Bolus insulin * NovoLog per scale ACHS or Q6hrs while NPO * Goal Range: Low 100 mg/dL - High 140 mg/dL * Correction Factor: 15 mg/dL/unit * Nutritional / Prandial insulin per carb ratio of 1 unit per 5 grams CHO consumed * Please note that the plan above was derived based on current level of insulin resistance and hospital stress. These recommendations are appropriate for inpatient admission only. Plan of care upon discharge will need to be reassessed to avoid potential outpatient hypo/hyperglycemia. Thank you.
[2020-02-06] MEDS: DAPTOmycin 500 MG in SYRINGE 0 ML IV SCH (14:26)
--- NOTE | 2020-02-06 15:27 | Orthopedic Consultation ---
Date of Consultation February 06, 2020 Assessment & Plan (1) Discitis of lumbosacral region: At this time I have had opportunity review her MRI and see the patient. She severe multilevel spinal stenosis in the lumbar spine and what appears to be discitis at the L2-3 level with possible osteomyelitis prickly of L2. I do not appreciate any evidence of epidural abscess. She is neurologically intact. If her situation progresses and ultimately requires debridement of lumbar spine feel that she would be best served in a tertiary care center. This is outside the scope of my ability and her hospitals ability to manage. Present on Admission?: Yes History of Present Illness Reason for Consultation: Lumbar discitis Requesting Physician: This is a 69-year-old female presents to the hospital with severe sepsis. She is growing gram-positive cocci in her blood. She states she has had the onset of severe back pain for about a week. She denies any specific trauma fall or event. She does states she is a home ambulator with the use of canes. She had a left total knee arthroplasty and notes severe arthritis the right knee. At this time she denies any leg pain numbness or tingling. She describes significant back pain with any motion. Attending Physician: Skinny Kapoor MD Allergies Allergy/AdvReac Type Severity Reaction Status Date / Time Penicillins Allergy Intermediate URTICARIA; Verified 02/03/20 11:07 PER PT, CAN TAKE AMOXICILLIN erythromycin base AdvReac Mild GI UPSET Verified 02/03/20 11:07 Home Medications Home Medications Medication Instructions Recorded Confirmed Type allopurinol 100 mg tablet 200 mg PO HS tab 02/15/18 02/03/20 History aspirin 81 mg chewable tablet 81 mg PO HS 02/15/18 02/03/20 History bumetanide 1 mg tablet 1 mg PO QAM 02/15/18 02/03/20 History cholecalciferol (vitamin D3) 25 2,000 units PO QAM 02/15/18 02/03/20 History mcg (1,000 unit) capsule hydralazine 10 mg tablet 10 mg PO TID 02/15/18 02/03/20 History ibuprofen 400 mg tablet 400 mg PO BID 02/15/18 02/03/20 History lisinopril 40 mg tablet 40 mg PO HS 02/15/18 02/03/20 History metoprolol tartrate 100 mg tablet 100 mg PO BID 02/15/18 02/03/20 History multivitamin 1 tab PO HS 02/15/18 02/03/20 History omeprazole 20 mg capsule,delayed 20 mg PO QAM 02/15/18 02/03/20 History release spironolactone 25 mg tablet 25 mg PO QAM 02/15/18 02/03/20 History tramadol 50 mg tablet 50 mg PO QID PRN 02/15/18 02/03/20 History warfarin 7.5 mg tablet 7.5 mg PO SUTUWETHFRSA tab 02/15/18 02/03/20 History levothyroxine 50 mcg capsule 50 mcg PO QAM cap 03/03/18 02/03/20 History metformin 500 mg tablet 2,000 mg PO HS 03/15/18 02/03/20 History amlodipine 10 mg PO QAM 02/03/20 02/03/20 History magnesium oxide 400 mg PO MOWEFR 02/03/20 02/03/20 History repaglinide 0.5 mg PO AC 02/03/20 02/03/20 History rosuvastatin [Crestor] 10 mg PO HS 02/03/20 02/03/20 History warfarin 10 mg PO MO 02/03/20 02/03/20 History Patient History Medical History (Updated 02/06/20 @ 15:26 by Manjit Choi DO) Acute CHF Anemia Atrial fibrillation with RVR CKD stage 3 secondary to diabetes Complicated UTI (urinary tract infection) Complicated UTI (urinary tract infection) CVA (cerebral vascular accident) Diabetes mellitus type 2 with complications Dizziness DM II (diabetes mellitus, type II), controlled Dyslipidemia Gastric ulcer Gastric ulcer due to Helicobacter pylori Gout H pylori ulcer H/O Moh's micrographic surgery for skin cancer H/O: upper GI bleed Heme positive stool HTN (hypertension) Hx of basal cell carcinoma Hypertension Hypokalemia Hypomagnesemia Hypothyroidism Infected ulcer of skin Infected ulcer of skin Morbid obesity Osteoarthritis Surgical History H/O basal cell carcinoma excision H/O left knee surgery H/O repair of rotator cuff History of arthroplasty of left knee History of carpal tunnel surgery History of carpal tunnel surgery Status post Mohs surgery Family History Mother Heart disease Diabetes Father Stroke Hypertension Other No pertinent family history Social History Smoking Status: Never smoker Second Hand Exposure: No; Do You Dip or Chew Tobacco: No; Tobacco Cessation Education Requested by Patient: No Hx Alcohol Use: Yes Alcohol type: wine Hx Substance Use: No Preferred Language: Chinese Communication Ability: Effective Hearing Ability: Normal Facility Maintenance Technician Required: No Beliefs That Will Affect Care: None marital status: / Current Living Situation: Alone current occupational status: retired Other Information That Helps Us Care for You: No Feels Safe at Home: Yes Assistive Devices: Walker Physical Exam Physical Exam: Patient alert and oriented. She exhibits reasonable strength plantar flexion dorsiflexion lower extremities. Sensory symmetric and intact. I did not have her sit up due to risks of exacerbating her pain. Results & Data ([facility]) Vital Signs (Past 12 Hours) Vital Signs Temp Pulse Pulse Resp BP Pulse Ox 02/06/20 11:13 36.8 C 130 H 18 134/80 97 02/06/20 10:46 120 H 02/06/20 07:57 140 H 02/06/20 07:18 36.9 C 119 H 19 135/77 96 02/06/20 03:59 144 H 20 95
--- NOTE | 2020-02-06 15:53 | Hospitalist Progress Note ---
Date of Service February 06, 2020 Assessment & Plan (1) Severe sepsis: Severe sepsis In setting of A. fib RVR, hypotension Possible Sources: Abdominal wall cellulitis, E.Coli UTI, B/L Leg Wound/Venous stasis ulcers Possible Endocarditis, L2 Osteomyelitis R/O Bacteremia Leg wound culture: Staph, group B strep, Proteus Urine culture: E. coli Blood culture: group B beta strep Planned for RASHID to rule out endocarditis Lactate 1.6 Received IV fluids Continue Zosyn, daptomycin ID consulted for input Continue wound care (2) Bacteremia: Management as above We will repeat blood cultures in a.m. (3) UTI (urinary tract infection): Management as above (4) Infected ulcer of skin: Chronic venous stasis ulcers. Wound cultures as above Continue IV antibiotics (5) Cellulitis of abdominal wall: Continue IV antibiotics Continue wound care (6) Back pain: Chronic Back pain: Possible L2-L3 Osteomyelitis, spinal stenosis of lumbar spine Worsened currently --Lumbar MRI:Technically limited study. The patient was unable to complete on the images due to severe pain. Marked widening of the L2-3 disc which demonstrates markedly increased T2 signal. There is no surrounding paravertebral edema, and there are no convincing findings of adjacent vertebral body osteomyelitis. Diagnostic considerations include a pseudoarthrosis versus discitis. A pseudoarthrosis is favored. Does this patient have history of prior trauma?. Advanced multilevel spondylytic change. Multilevel spinal stenosis which is moderate to severe at the L3-4 level, and moderate at the L4-5 and L5- S1 levels. Multilevel foraminal narrowing. --ABD Arterial US: No evidence for an abdominal aortic aneurysm. --Appreciate orthopedics input --Will need debridement of lumbar spine eventually --Possibly need to be transferred to tertiary care facility --Continue IV antibiotics (7) Hypotension: Low BP on presentation BP slightly higher Continue current medications Monitor (8) Atrial fibrillation with RVR: Afib RVR H/O paroxysmal A. fib Unsuccessful Cardioversion in ED. On amiodarone, diltiazem drip Appreciate cardiology input Plan for RASHID with potential cardioversion Continue Coumadin for anticoagulation Monitor PT/INR: 2.8 (9) Supratherapeutic INR: INR 8.7 on presentation Elevated INR secondary to warfarin therapy. Received vitamin K INR:2.8 (10) Hypertension: Continue current meds (11) Acute kidney injury: SAJAN on CKD III Cr:2.62>>2.06>>1.17 Nephrology consulted Received IV fluids Monitor renal function (12) Diabetes mellitus type 2 with complications: DM II Hold metformin Hb A1C:7.6 Lantus / NovoLog per protocol. Pharmacy for glycemic management consulted (13) Hypothyroidism: Continue levothyroxine (14) Morbid obesity: BMI 57.7 (15) Venous ulcers of both lower extremities: Continue Wound Care (16) COVID-19 ruled out: SARS-CoV-2 PCR negative. (17) DVT prophylaxis: warfarin Code Status Full Code (18) Discharge planning issues: To be determined Internal Medicine follow-up with Dr. Whitmore. Cardiology follow-up with Dr. Foster. Admission and Anticipated Discharge Date Admission Date: February 03, 2020 Subjective Patient is seen and examined at bedside Complains of lower back pain with movement especially Also reports mild abdominal discomfort Denies chest pain, shortness of breath, dizziness, nausea, abdominal pain Offers no other complaints Review of Systems Review of Systems: All systems reviewed & are unremarkable except as noted in HPI & below Physical Exam Physical Exam: Physical Exam: Vitals signs as noted above General Appearance:Morbidly Obese, no apparent distress Head: normocephalic, Atraumatic Eyes: normal inspection, EOMI Neck: supple, Trachea midline Respiratory/Chest: Normal breath sounds, basal rales Cardiovascular: Irregularly irregular, tachycardia, No murmur Abdomen/GI:Soft, mild tender, abdominal wound in dressing, bowel sounds present Extremities/Musculoskelatal:normal inspection, B/L LE wounds in dressing, no edema Neurologic/Psych:AAOX3, grossly no focal neurological deficits Skin: normal color, warm Results & Data Results & Data ([facility]) Vital Signs (Past 12 Hours) Vital Signs Temp Pulse Pulse Pulse Resp BP BP 02/06/20 15:44 37 C 115 H 20 160/83 H 02/06/20 11:13 36.8 C 130 H 18 134/80 02/06/20 10:46 120 H 02/06/20 07:57 140 H 02/06/20 07:18 36.9 C 119 H 19 135/77 02/06/20 03:59 144 H 20 Pulse Ox 02/06/20 15:44 96 02/06/20 11:13 97 02/06/20 10:46 02/06/20 07:57 02/06/20 07:18 96 02/06/20 03:59 95 Laboratory Results Short CBC 02/06/20 Range/Units 06:27 WBC 13.04 H (4.8-10.8) K/uL Hgb 9.8 L (12.0-16.0) g/dL Hct 29.5 L (37-47) % Plt Count 284 (130-400) K/uL BMP 02/06/20 06:27 Sodium 135 L Potassium 3.5 Chloride 105 Carbon Dioxide 23 BUN 33 H Creatinine 1.17 D Glucose 158 H Calcium 8.6
[2020-02-06] MEDS ORDERED: WARFARIN SOD 10 MG TAB PO SCH (16:00)
[2020-02-06] MEDS: WARFARIN SOD 5 MG TAB PO SCH (16:10)
--- NOTE | 2020-02-06 17:27 | Electrocardiogram Report ---
Test Reason : Blood Pressure : / mmHG Vent. Rate : 150 BPM Atrial Rate : 000 BPM P-R Int : 000 ms QRS Dur : 080 ms QT Int : 316 ms P-R-T Axes : 000 -08 133 degrees QTc Int : 499 ms Atrial fibrillation with rapid ventricular response Poor R wave progression, consider anterior GA vs. lead placement vs. LVH Abnormal ECG When compared with ECG of 05-FEB-2020 10:23, T wave inversion no longer evident in Inferior leads Confirmed by Shravan Menchaca ([id number]) on 02/06/2020 5:26:53 PM Referred By: REFERRED SELF Confirmed By:Jose Menchaca
[2020-02-06] MEDS: ASPIRIN 81 MG ECTAB PO SCH (19:48)
[2020-02-06] MEDS: MULTIVITAMIN TAB PO SCH (19:48)
[2020-02-06] MEDS: allopurinoL 100 MG TAB PO SCH (19:48)
[2020-02-07] MEDS: HYDROmorphone INJ 1 MG/ML SYRINGE IV PRN ×2 (00:01→04:07)
[2020-02-07] MEDS: PIPERACILLIN/TAZOBACTAM 4.5 GM in DEXTROSE 5% 100 ML IV SCH ×2 (00:03→09:24)
[2020-02-07] MEDS: AMIODARONE / D5W 360 MG/200 ML BAG IV SCH (02:50)
[2020-02-07] MEDS: LEVOTHYROXINE SODIUM 50 MCG TABLET PO SCH (05:57)
[2020-02-07 06:47] LABS: Hematocrit (blood only) 31.2 % (37-47); Hemoglobin 10.2 g/dL (12.0-16.0); Mean Corpuscular Hemoglobin 26.4 pg (25-34); Mean Corpuscular Hgb Conc 32.7 g/dL (32-36); Mean Corpuscular Volume 80.8 fL (80-100); Mean Platelet Volume 10.2 fL (7.4-10.4); Platelet Count 343 K/uL (130-400); RDW Coefficient of Variation 16.2 % (11.5-14.5); RDW Standard Deviation 47.9 fL (36.4-46.3); Red Blood Count 3.86 M/uL (4.2-5.4); White Blood Count 12.45 K/uL (4.8-10.8)
[2020-02-07] MEDS ORDERED: ATROPINE SULFATE 0.1 MG/ML 10ML SYR IV ONE (06:50)
[2020-02-07] MEDS ORDERED: PROPOFOL IV EMULSION 10 MG/ML 20 ML VIAL IV ONE ×3 (07:02→07:16)
[2020-02-07 07:03] LABS: INR 4.4 (0.9-1.1); Prothrombin Time 42.4 Seconds (9.0-12.0)
[2020-02-07] MEDS ORDERED: LIDOCAINE HCL 2% 2 ML VIAL/AMP(20MG/ML) INFIL ONE (07:14)
[2020-02-07 07:28] LABS: BUN Creatinine Ratio 26.3 (10-20); Calcium 8.9 mg/dl (8.5-10.1); Creatinine Clr Calc Pharmacy 58.1 ml/min; Est GFR (African American) 52.9; Est GFR (Non-African American) 45.6; Magnesium 1.8 mg/dl (1.8-2.4); Potassium 3.9 mmol/L (3.5-5.1)
--- NOTE | 2020-02-07 08:03 | Anesthesiology Progress Note ---
Date of Service February 07, 2020 Anesthesia Post Procedure Vital Signs Vital Signs: Temp Pulse Pulse Pulse Resp BP BP 02/07/20 04:06 129 H 18 157/85 H 02/06/20 23:45 120 H 20 02/06/20 23:07 36.9 C 129 H 18 143/89 H 02/06/20 21:46 153 H 139/76 02/06/20 19:52 36.6 C 113 H 18 112/56 L 02/06/20 19:13 37.0 C 134 H 20 120/88 02/06/20 15:44 37 C 115 H 20 160/83 H 02/06/20 11:13 36.8 C 130 H 18 134/80 02/06/20 10:46 120 H Pulse Ox 02/07/20 04:06 97 02/06/20 23:45 94 02/06/20 23:07 94 02/06/20 21:46 02/06/20 19:52 96 02/06/20 19:13 96 02/06/20 15:44 96 02/06/20 11:13 97 02/06/20 10:46 Pain Intensity Back: Pain Intensity: 3 Transfer of Care Handoff Completed per policy Notes Mental Status: alert / awake / arousable and participated in evaluation Patient Amnestic to Procedure: Yes Nausea / Vomiting: adequately controlled Pain: adequately controlled Airway Patency, RR, SpO2: stable & adequate BP & HR: stable & adequate Hydration State: stable & adequate Anesthetic Complications: no major complications apparent and Pt Satisfied with anesthetic care
--- NOTE | 2020-02-07 08:18 | Cardioversion ---
Date of Service February 07, 2020 Electrical Cardioversion Rpt Electrical Cardioversion Report The patient underwent a transesophageal echocardiogram which failed to show any contraindication to a cardioversion. The left atrial appendage was free of thrombus. No other evidence of thrombus within the cardiac chambers. The patient then received 300 J of synchronized energy which converted her to normal sinus rhythm. She was recovered in the holding area the Kitchen Work Supervisor and then transferred back to her room in stable condition.
[2020-02-07] MEDS ORDERED: INSULIN GLARGINE SOLOSTAR 100 UNITS/ML 3 ML PEN SC SCH (09:00)
[2020-02-07] MEDS: HYDROmorphone INJ 0.5 MG/0.5 ML SYR IV PRN ×3 (09:23→13:59)
[2020-02-07] MEDS: MAGNESIUM OXIDE 400 MG TAB PO SCH ×2 (09:25→21:34)
[2020-02-07] MEDS: METOPROLOL TARTRATE 50 MG TAB PO SCH ×2 (09:25→21:33)
[2020-02-07] MEDS: CHOLECALCIFEROL 1,000 UNITS 25 MCG TAB PO SCH (09:26)
[2020-02-07] MEDS: PANTOprazole 40 MG TAB PO SCH (09:26)
[2020-02-07] MEDS: INSULIN ASPART 100 UNITS/ML 3 ML PEN SC SCH ×4 (09:32→21:39)
--- NOTE | 2020-02-07 10:37 | Cardiology Progress Note ---
Date of Service February 07, 2020 Assessment & Plan (1) Low back pain: (2) Ambulatory dysfunction: (3) Morbid obesity: (4) Supratherapeutic INR: (5) Atrial fibrillation with RVR: (6) Sepsis due to alpha-hemolytic Streptococcus: The orthopedic consult is appreciated. 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 The patient had a successful cardioversion this morning. Plan to switch her over to oral amiodarone. The diltiazem can be stopped. Adding back some of her home blood pressure medications. INR was 4.4 this morning and warfarin was held. The RASHID showed no evidence of bacterial vegetations on any of her cardiac valves. Admission and Anticipated Discharge Date Admission Date: February 03, 2020 Subjective The patient had a successful cardioversion this morning and is maintaining sinus rhythm. Review of Systems Review of Systems: All systems reviewed & are unremarkable except as noted in Subjective Physical Exam Physical Exam: General: no acute distress and stated age Head: normocephalic, no masses, lesions, tenderness or abnormalities Eyes: conjunctiva are pink and non-injected, sclera clear Neck: supple, no adenopathy, no bruits, normal jugular venous pulse, no hepatojugular reflux Chest: normal shape and normal respiratory effort Lungs: clear to auscultation and percussion Cardiac Exam: - regular rate & rhythm, no murmurs gallops or rubs - normal S1, normal S2 Pulses: 2(+) throughout Abdomen: abdomen soft, non-tender, no abnormal masses and no hepatosplenomegaly Musculoskeletal: no gait disturbance, no joint inflammation, no deforming arthritis Extremities: no edema and no cyanosis Neuro: grossly normal exam Results & Data ([facility]) Vital Signs (Past 12 Hours) Vital Signs Temp Pulse Pulse Resp BP BP Pulse Ox 02/07/20 09:18 37.0 C 100 H 20 142/78 H 97 02/07/20 08:48 36.8 C 88 18 118/74 97 02/07/20 08:18 36.8 C 89 20 115/72 96 02/07/20 08:09 36.7 C 73 18 138/90 100 02/07/20 07:55 82 18 147/77 H 99 02/07/20 07:45 69 18 113/63 99 02/07/20 07:44 87 18 114/47 L 99 02/07/20 07:10 118 H 18 125/86 94 02/07/20 04:06 129 H 18 157/85 H 97 02/06/20 23:45 120 H 20 94 02/06/20 23:07 36.9 C 129 H 18 143/89 H 94 Laboratory Results Laboratory Results - last 24 hr 02/06/20 02/06/20 02/06/20 11:28 16:18 20:04 WBC RBC Hgb Hct MCV MCH MCHC RDW Std Deviation RDW Coeff of Yvette Plt Count MPV PT INR Sodium Potassium Chloride Carbon Dioxide Anion Gap BUN Creatinine Est Cr Clr Drug Dosing Est GFR ( Amer) Est GFR (Non-Af Amer) BUN/Creatinine Ratio Glucose POC Glucose 172 H 223 H 213 H Calcium Magnesium 02/07/20 02/07/20 02/07/20 06:00 06:00 06:00 WBC 12.45 H RBC 3.86 L Hgb 10.2 L Hct 31.2 L MCV 80.8 MCH 26.4 MCHC 32.7 RDW Std Deviation 47.9 H RDW Coeff of Yvette 16.2 H Plt Count 343 MPV 10.2 PT 42.4 H INR 4.4 H Sodium 133 L Potassium 3.9 Chloride 102 Carbon Dioxide 25 Anion Gap 6.0 BUN 32 H Creatinine 1.21 H Est Cr Clr Drug Dosing 58.1 Est GFR ( Amer) 52.9 Est GFR (Non-Af Amer) 45.6 BUN/Creatinine Ratio 26.3 H Glucose 169 H POC Glucose Calcium 8.9 Magnesium 1.8 02/07/20 09:30 WBC RBC Hgb Hct MCV MCH MCHC RDW Std Deviation RDW Coeff of Yvette Plt Count MPV PT INR Sodium Potassium Chloride Carbon Dioxide Anion Gap BUN Creatinine Est Cr Clr Drug Dosing Est GFR ( Amer) Est GFR (Non-Af Amer) BUN/Creatinine Ratio Glucose POC Glucose 213 H Calcium Magnesium Medications Administered Current Inpatient Medications Acetaminophen (Acetaminophen 325 Mg Tab) 325 mg PO Q6H PRN PRN Reason: Pain or Fever Stop: 03/04/20 12:29 Allopurinol (Allopurinol 100 Mg Tab) 200 mg PO HS MONIKA Stop: 03/04/20 20:59 Last Admin: 02/06/20 19:48 Dose: 200 mg Documented by: Amiodarone HCl (Amiodarone 200 Mg Tab) 400 mg PO TIDM [facility] Stop: 03/08/20 11:59 Aspirin (Aspirin 81 Mg Ectab) 81 mg PO HS [facility] Stop: 03/04/20 20:59 Last Admin: 02/06/20 19:48 Dose: 81 mg Documented by: Bumetanide (Bumetanide 1 Mg Tab) 1 mg PO QAM [facility] Stop: 03/08/20 10:44 Dextrose (Dextrose 50% 50 Ml Syringe) 25 - 50 ml IV UD PRN; Protocol PRN Reason: Hypoglycemia Protocol Stop: 03/04/20 14:26 Diphenhydramine HCl (Diphenhydramine Hcl 50 Mg/Ml Vial) 12.5 mg IV Q12 PRN PRN Reason: Allergic Reaction Stop: 03/04/20 12:29 Glucagon (Glucagon For Inj 1 Mg Vial) 1 mg SQ UD PRN; Protocol PRN Reason: Hypoglycemia Protocol Stop: 03/04/20 14:26 Glucose (Glucose 10 Tabs/Tube) 4 - 8 tabs PO UD PRN; Protocol PRN Reason: Hypoglycemia Protocol Stop: 03/04/20 14:26 Glucose (Glucose 40% Gel 15 Gm Tube) 15 - 30 gm PO UD PRN; Protocol PRN Reason: Hypoglycemia Protocol Stop: 03/04/20 14:26 Hydralazine HCl (Hydralazine 10 Mg Tab) 10 mg PO TID [facility] Stop: 03/08/20 13:59 Hydromorphone HCl (Hydromorphone Inj 0.5 Mg/0.5 Ml Syr) 0.5 mg IV Q2H PRN PRN Reason: Moderate Pain Stop: 02/19/20 09:49 Last Admin: 02/07/20 09:23 Dose: 0.5 mg Documented by: Hydromorphone HCl (Hydromorphone Inj 1 Mg/Ml Syringe) 1 mg IV Q2H PRN PRN Reason: Severe Pain Stop: 02/19/20 09:49 Last Admin: 02/07/20 04:07 Dose: 1 mg Documented by: Promethazine HCl 6.25 mg/ (Sodium Chloride) 50.25 mls @ 201 mls/hr IV Q6H PRN PRN Reason: Nausea And Vomiting Stop: 03/04/20 12:19 Piperacillin Sod/Tazobactam (Sod 4.5 gm/ Dextrose) 120 mls @ 30 mls/hr IV Q8H S ; Protocol Stop: 02/12/20 19:59 Last Admin: 02/07/20 09:24 Dose: 28.8 mls/hr Documented by: Daptomycin 500 mg/ Syringe 10 mls @ 5 mls/min IV Q24H [facility]; Protocol Stop: 02/18/20 13:59 Last Admin: 02/06/20 14:26 Dose: 5 mls/min Documented by: Insulin Aspart (Insulin Aspart 100 Units/Ml 3 Ml Pen) 0 units SC ACHS [facility]; Protocol Stop: 03/04/20 16:29 Last Admin: 02/07/20 09:32 Dose: 5 units Documented by: Insulin Glargine (Insulin Glargine Solostar 100 Units/Ml 3 Ml Pen) 16 units SC BID [facility]; Protocol Stop: 03/04/20 20:59 Last Admin: 02/07/20 09:25 Dose: 16 units Documented by: Levothyroxine Sodium (Levothyroxine Sodium 50 Mcg Tablet) 50 mcg PO DAILYBB [facility] Stop: 03/05/20 06:29 Last Admin: 02/07/20 05:57 Dose: 50 mcg Documented by: Lisinopril (Lisinopril 40 Mg Tab) 40 mg PO QAM [facility] Stop: 03/08/20 19:59 Magnesium Oxide (Magnesium Oxide 400 Mg Tab) 400 mg PO BID [facility] Stop: 03/04/20 20:59 Last Admin: 02/07/20 09:25 Dose: 400 mg Documented by: Metoprolol Tartrate (Metoprolol Tartrate 50 Mg Tab) 50 mg PO BID [facility] Stop: 03/05/20 10:44 Last Admin: 02/07/20 09:25 Dose: 50 mg Documented by: Metoprolol Tartrate (Metoprolol Tartrate 1 Mg/Ml Vial) 5 mg IV Q4 PRN PRN Reason: sustained HR > 115 Stop: 03/06/20 00:00 Last Admin: 02/06/20 07:57 Dose: 5 mg Documented by: Miscellaneous (Carbohydrates For Hypoglycemia ) 15 - 30 gm PO UD PRN PRN Reason: Hypoglycemia Protocol Stop: 03/04/20 14:26 Miscellaneous Information (Piperacill/Tazobac Consult Active) 1 ea N/A UD PRN PRN Reason: Consult Stop: 03/04/20 12:28 Miscellaneous Information (Daptomycin Consult Active) 1 ea N/A UD PRN PRN Reason: Consult Stop: 03/05/20 13:40 Miscellaneous Information (Pharmacy Glycemic Mgmt Consult) 1 ea N/A UD PRN PRN Reason: Consult Stop: 03/06/20 21:02 Multivitamins (Multivitamin Tab) 1 tab PO [facility] Stop: 03/04/20 20:59 Last Admin: 02/06/20 19:48 Dose: 1 tab Documented by: Nystatin (Nystatin Powder 15gm Btl) 1 appln EXT TID PRN PRN Reason: Rash Stop: 03/05/20 12:39 Oxycodone HCl (Oxycodone Hcl Ir 5 Mg Tab (Immediate Release)) 5 mg PO Q6H PRN PRN Reason: Moderate Pain Stop: 02/17/20 12:18 Last Admin: 02/04/20 11:43 Dose: 5 mg Documented by: Pantoprazole Sodium (Pantoprazole 40 Mg Tab) 40 mg PO [facility] Stop: 03/05/20 08:59 Last Admin: 02/07/20 09:26 Dose: 40 mg Documented by: Spironolactone (Spironolactone 25 Mg Tab) 25 mg PO [facility] Stop: 03/09/20 08:59 Vitamin D (Cholecalciferol 1,000 Units 25 Mcg Tab) 2,000 units PO [facility] Stop: 03/05/20 08:59 Last Admin: 02/07/20 09:26 Dose: 2,000 units Documented by: Warfarin Sodium (Warfarin Sod 5 Mg Tab) 5 mg PO DAILY@1600 [facility] Stop: 03/07/20 15:59 Last Admin: 02/06/20 16:10 Dose: 5 mg Documented by:
[2020-02-07] MEDS: AMIODARONE 200 MG TAB PO SCH ×2 (11:13→17:18)
[2020-02-07] MEDS: BUMETANIDE 1 MG TAB PO SCH (11:13)
--- NOTE | 2020-02-07 11:50 | Electrocardiogram Report ---
Test Reason : Blood Pressure : / mmHG Vent. Rate : 139 BPM Atrial Rate : 000 BPM P-R Int : 000 ms QRS Dur : 086 ms QT Int : 328 ms P-R-T Axes : 000 -28 131 degrees QTc Int : 499 ms Atrial fibrillation with rapid ventricular response Low voltage QRS Possible Anterolateral infarct (cited on or before 07-FEB-2020) Abnormal ECG When compared with ECG of 06-FEB-2020 07:19, No significant change was found Confirmed by Shravan Mnechaca ([id number]) on 02/07/2020 11:50:06 AM Referred By: REFERRED SELF Confirmed By:Jose Menchaca
--- NOTE | 2020-02-07 11:53 | Electrocardiogram Report ---
Test Reason : Blood Pressure : / mmHG Vent. Rate : 074 BPM Atrial Rate : 065 BPM P-R Int : 000 ms QRS Dur : 086 ms QT Int : 414 ms P-R-T Axes : 000 -06 036 degrees QTc Int : 459 ms Sinus rhythm with PACs Inferior infarct , age undetermined Abnormal ECG When compared with ECG of 07-FEB-2020 06:41, (unconfirmed) Sinus rhythm has replaced atrial fibrillation Confirmed by Shravan Menchaca ([id number]) on 02/07/2020 11:53:36 AM Referred By: REFERRED SELF Confirmed By:Jose Menchaca
--- NOTE | 2020-02-07 13:47 | Pharmacy Report ---
Pharmacy Glycemic Short Note 2 - Date of Service February 07, 2020 - Glycemic Short BSG Results (Last 24 hours): 02/06/20 02/06/20 02/07/20 16:18 20:04 06:00 Glucose 169 H POC Glucose 223 H 213 H 02/07/20 02/07/20 09:30 11:51 Glucose POC Glucose 213 H 222 H OUTPATIENT ANTIDIABETIC REGIMEN: * metformin 2,000 mg HS, repaglinide 0.5 mg AC ASSESSMENT: 02/06 * pt received 60 units of insulin yesterday, 32 of basal, 28 of prandial/correctional * Fasting BSG elevated this morning, could be d/t reduced lantus given for anticipated NPO status * Diet ordered with lunch, will resume higher lantus dose this evening * BSGs did trend up last night, tightened carb ratio this morning but yet to see any effect from this as pt has been npo 02/05 * Patient admitted 02/03/20 with AFIB w/ RVR, grp B strep bacteremia + cellulitis cultures growing multiple organisms * Patient currently on amiodarone and diltiazem infusion diluted in dextrose, and daptomycin + zosyn (also in dextrose) * Fasting BSGs have been mostly in goal range with 18 units of lantus BID- will continue- patient will be NPO at midnight, will reduce PM dose * Prandial BSGS have been elevated, tighted CF/CR last PM with improvement tod ay- will continue this for now PLAN FOR INPATIENT GLYCEMIC CONTROL: * Hold outpatient oral diabetes medications * Basal insulin * Lantus 19 units SQ BID * Bolus insulin * NovoLog per scale ACHS or Q6hrs while NPO * Goal Range: Low 100 mg/dL - High 140 mg/dL * Correction Factor: 15 mg/dL/unit * Nutritional / Prandial insulin per carb ratio of 1 unit per 4 grams CHO consumed
[2020-02-07] MEDS: hydrALAZINE 10 MG TAB PO SCH ×2 (13:59→21:35)
[2020-02-07] MEDS: DAPTOmycin 500 MG in SYRINGE 0 ML IV SCH (13:59)
--- NOTE | 2020-02-07 16:07 | Hospitalist Progress Note ---
Date of Service February 07, 2020 Assessment & Plan (1) Severe sepsis: Severe sepsis In setting of A. fib RVR, hypotension Possible Sources: Abdominal wall cellulitis, E.Coli UTI, B/L Leg Wound/Venous stasis ulcers Possible L2 Osteomyelitis Group B beta strep bacteremia Leg wound culture: Staph, group B strep, Proteus Urine culture: E. coli Blood culture: group B beta strep No vegetation on RASHID Lactate 1.6 Repeat Blood Cultures:Pending Received IV fluids Zosyn, daptomycin>> Transitioned to Ceftriaxone Appreciate ID Input Continue wound care Continue IV antibiotics--needs 6-week course of therapy Needs weekly CBC, CMP, CRP Needs repeat MRI of lumbar spine in 5 to 6 weeks (2) Bacteremia: Management as above (3) UTI (urinary tract infection): Management as above (4) Infected ulcer of skin: Chronic venous stasis ulcers. Wound cultures as above Continue IV antibiotics as above (5) Cellulitis of abdominal wall: Continue IV antibiotics Continue wound care (6) Back pain: Chronic Back pain: Possible L2-L3 Osteomyelitis, spinal stenosis of lumbar spine Worsened currently --Lumbar MRI:Technically limited study. The patient was unable to complete on the images due to severe pain. Marked widening of the L2-3 disc which demonstrates markedly increased T2 signal. There is no surrounding paravertebral edema, and there are no convincing findings of adjacent vertebral body osteomyelitis. Diagnostic considerations include a pseudoarthrosis versus discitis. A pseudoarthrosis is favored. Does this patient have history of prior trauma?. Advanced multilevel spondylitic change. Multilevel spinal stenosis which is moderate to severe at the L3-4 level, and moderate at the L4-5 and L5- S1 levels. Multilevel foraminal narrowing. --ABD Arterial US: No evidence for an abdominal aortic aneurysm. --Appreciate orthopedics input --Will need debridement of lumbar spine eventually --Possibly need to be transferred to tertiary care facility --Continue IV antibiotics-- 6 week course --Needs Repeat MRI spine in 5-6 weeks as outpatient (7) Hypotension: Resolved Monitor (8) Atrial fibrillation with RVR: Afib RVR H/O paroxysmal A. fib Unsuccessful Cardioversion in ED. S/P RASHID with successful cardioversion RASHID: No evidence of mass or vegetation. This does not rule out endocarditis. No thrombus is detected in the left atrial appendage. The left atrium is moderately dilated. Right atrial size is normal. Left ventricle systolic function is normal. Right ventricle systolic function is normal. Amiodarone Infusion and diltiazem infusion discontinued Continue PO Amiodarone as per cardiology Appreciate cardiology input Supratherapeutic INR No active bleeding issues Monitor PT/INR: 2.8>>4.4 Hold Coumadin (9) Supratherapeutic INR: INR 8.7>>4.4 Elevated INR secondary to warfarin therapy. 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 Pharmacy for glycemic management consulted (13) Hypothyroidism: Continue levothyroxine (14) Morbid obesity: BMI 57.7 (15) Venous ulcers of both lower extremities: Continue Wound Care (16) COVID-19 ruled out: SARS-CoV-2 PCR negative. (17) DVT prophylaxis: Held warfarin Supratherapeutic INR Code Status Full Code (18) Discharge planning issues: To be determined Internal Medicine follow-up with Dr. Whitmore. Cardiology follow-up with Dr. Foster. Admission and Anticipated Discharge Date Admission Date: February 03, 2020 Subjective Patient is seen and examined at bedside Had RASHID cardioversion this morning Discussed with cardiology today Complains of low back pain No new complaints Denies chest pain, shortness of breath, dizziness, nausea, abdominal pain Review of Systems Review of Systems: All systems reviewed & are unremarkable except as noted in HPI & below Physical Exam Physical Exam: Physical Exam: Vitals signs as noted above General Appearance:Morbidly Obese, no apparent distress Head: normocephalic, Atraumatic Eyes: normal inspection, EOMI Neck: supple, Trachea midline Respiratory/Chest: Normal breath sounds, basal rales Cardiovascular: Sinus, No murmur Abdomen/GI:Soft, mild tender, abdominal wound in dressing, bowel sounds present Extremities/Musculoskelatal:normal inspection, B/L LE wounds in dressing, no edema Neurologic/Psych:AAOX3, grossly no focal neurological deficits Skin: normal color, warm Results & Data Results & Data ([facility]) Vital Signs (Past 12 Hours) Vital Signs Temp Pulse Resp BP Pulse Ox 02/07/20 11:53 36.6 C 79 18 131/61 97 02/07/20 09:18 37.0 C 100 H 20 142/78 H 97 02/07/20 08:48 36.8 C 88 18 118/74 97 02/07/20 08:18 36.8 C 89 20 115/72 96 02/07/20 08:09 36.7 C 73 18 138/90 100 02/07/20 07:55 82 18 147/77 H 99 02/07/20 07:45 69 18 113/63 99 02/07/20 07:44 87 18 114/47 L 99 02/07/20 07:10 118 H 18 125/86 94 02/07/20 04:06 129 H 18 157/85 H 97 Laboratory Results Short CBC 02/07/20 Range/Units 06:00 WBC 12.45 H (4.8-10.8) K/uL Hgb 10.2 L (12.0-16.0) g/dL Hct 31.2 L (37-47) % Plt Count 343 (130-400) K/uL BMP 02/07/20 06:00 Sodium 133 L Potassium 3.9 Chloride 102 Carbon Dioxide 25 BUN 32 H Creatinine 1.21 H Glucose 169 H Calcium 8.9
[2020-02-07] MEDS: oxyCODONE HCL IR 5 MG TAB (IMMEDIATE RELEASE) PO PRN (17:42)
[2020-02-07] MEDS: lisinopril 40 MG TAB PO SCH (21:33)
[2020-02-07] MEDS: ASPIRIN 81 MG ECTAB PO SCH (21:33)
[2020-02-07] MEDS: allopurinoL 100 MG TAB PO SCH (21:34)
[2020-02-07] MEDS: MULTIVITAMIN TAB PO SCH (21:35)
[2020-02-07] MEDS: INSULIN GLARGINE SOLOSTAR 100 UNITS/ML 3 ML PEN SC SCH (21:36)
[2020-02-08] MEDS: oxyCODONE HCL IR 5 MG TAB (IMMEDIATE RELEASE) PO PRN ×4 (00:25→19:39)
[2020-02-08] MEDS: LEVOTHYROXINE SODIUM 50 MCG TABLET PO SCH (05:25)
[2020-02-08] MEDS: PIPERACILLIN/TAZOBACTAM 4.5 GM in DEXTROSE 5% 100 ML IV SCH (07:06)
[2020-02-08 07:15] LABS: Hematocrit (blood only) 32.3 % (37-47); Hemoglobin 10.7 g/dL (12.0-16.0); Mean Corpuscular Hgb Conc 33.1 g/dL (32-36); Mean Corpuscular Volume 81.6 fL (80-100); Mean Platelet Volume 10.2 fL (7.4-10.4); Platelet Count 374 K/uL (130-400); RDW Coefficient of Variation 16.1 % (11.5-14.5); RDW Standard Deviation 48.1 fL (36.4-46.3); Red Blood Count 3.96 M/uL (4.2-5.4); White Blood Count 13.53 K/uL (4.8-10.8)
[2020-02-08 07:27] LABS: INR 3.4 (0.9-1.1)
[2020-02-08 07:42] LABS: BUN Creatinine Ratio 28.6 (10-20); Calcium 9.3 mg/dl (8.5-10.1); Creatinine Clr Calc Pharmacy 68.1 ml/min; Est GFR (African American) 65.8; Est GFR (Non-African American) 56.8; Magnesium 1.7 mg/dl (1.8-2.4); Potassium 3.8 mmol/L (3.5-5.1)
[2020-02-08] MEDS: HYDROmorphone INJ 0.5 MG/0.5 ML SYR IV PRN (08:35)
[2020-02-08] MEDS: CHOLECALCIFEROL 1,000 UNITS 25 MCG TAB PO SCH (08:36)
[2020-02-08] MEDS: AMIODARONE 200 MG TAB PO SCH ×3 (08:37→16:47)
[2020-02-08] MEDS: MAGNESIUM OXIDE 400 MG TAB PO SCH ×2 (08:37→19:40)
[2020-02-08] MEDS: lisinopril 40 MG TAB PO SCH (08:37)
[2020-02-08] MEDS: PANTOprazole 40 MG TAB PO SCH (08:37)
[2020-02-08] MEDS: METOPROLOL TARTRATE 50 MG TAB PO SCH ×2 (08:37→19:40)
[2020-02-08] MEDS: hydrALAZINE 10 MG TAB PO SCH ×3 (08:37→19:39)
[2020-02-08] MEDS: BUMETANIDE 1 MG TAB PO SCH (08:37)
[2020-02-08] MEDS: SPIRONOLACTONE 25 MG TAB PO SCH (08:38)
[2020-02-08] MEDS: INSULIN ASPART 100 UNITS/ML 3 ML PEN SC SCH ×4 (08:43→21:13)
[2020-02-08] MEDS: INSULIN GLARGINE SOLOSTAR 100 UNITS/ML 3 ML PEN SC SCH ×2 (08:44→21:14)
[2020-02-08] MEDS: cefTRIAXone SODIUM 2,000 MG in DEXTROSE 5% 50 ML IV SCH (08:45)
[2020-02-08] MEDS ORDERED: MAGNESIUM SULFATE / D5W 1 GM/100 ML BAG IV ONE (09:00)
[2020-02-08] MEDS ORDERED: POTASSIUM CHLORIDE CRTAB 20 MEQ TABCR PO STA (09:32)
--- NOTE | 2020-02-08 09:32 | Cardiology Progress Note ---
Date of Service February 08, 2020 Assessment & Plan (1) Low back pain: (2) Ambulatory dysfunction: (3) Morbid obesity: (4) Supratherapeutic INR: (5) Atrial fibrillation with RVR: (6) Sepsis due to alpha-hemolytic Streptococcus: The patient is maintaining sinus mechanism but does have frequent PACs. She is still being loaded with amiodarone and is on a beta-judith. Her potassium is 3.7 today and I will supplement. Her main complaint however, is back pain due to her discitis and osteomyelitis of the spine. I will ask pain management to see her. Admission and Anticipated Discharge Date Admission Date: February 03, 2020 Subjective The patient is in a great deal of pain due to her osteomyelitis and discitis of the lumbar spine. She is maintaining sinus rhythm. Review of Systems Review of Systems: All systems reviewed & are unremarkable except as noted in HPI & below Nothing additional to add. Physical Exam Physical Exam: General: no acute distress and stated age Head: normocephalic, no masses, lesions, tenderness or abnormalities Eyes: conjunctiva are pink and non-injected, sclera clear Neck: supple, no adenopathy, no bruits, normal jugular venous pulse, no hepatojugular reflux Chest: normal shape and normal respiratory effort Lungs: clear to auscultation and percussion Cardiac Exam: - regular rate & rhythm, no murmurs gallops or rubs - normal S1, normal S2 Pulses: 2(+) throughout Abdomen: abdomen soft, non-tender, no abnormal masses and no hepatosplenomegaly Musculoskeletal: no gait disturbance, no joint inflammation, no deforming arthritis Extremities: no edema and no cyanosis Neuro: grossly normal exam Results & Data ([facility]) Vital Signs (Past 12 Hours) Vital Signs Temp Pulse Resp BP BP Pulse Ox 02/08/20 08:09 36.8 C 75 18 167/74 H 96 02/08/20 04:00 37.2 C 94 H 20 141/64 H 96 02/07/20 23:47 37.9 C H 85 14 156/85 H 97 Laboratory Results Laboratory Results - last 24 hr 02/07/20 02/07/20 02/07/20 09:30 11:51 16:38 WBC RBC Hgb Hct MCV MCH MCHC RDW Std Deviation RDW Coeff of Yvette Plt Count MPV PT INR Sodium Potassium Chloride Carbon Dioxide Anion Gap BUN Creatinine Est Cr Clr Drug Dosing Est GFR ( Amer) Est GFR (Non-Af Amer) BUN/Creatinine Ratio Glucose POC Glucose 213 H 222 H 248 H Calcium Magnesium 02/07/20 02/08/20 02/08/20 21:13 06:33 06:37 WBC 13.53 H RBC 3.96 L Hgb 10.7 L Hct 32.3 L MCV 81.6 MCH 27.0 MCHC 33.1 RDW Std Deviation 48.1 H RDW Coeff of Yvette 16.1 H Plt Count 374 MPV 10.2 PT INR Sodium Potassium Chloride Carbon Dioxide Anion Gap BUN Creatinine Est Cr Clr Drug Dosing Est GFR ( Amer) Est GFR (Non-Af Amer) BUN/Creatinine Ratio Glucose POC Glucose 182 H 179 H Calcium Magnesium 02/08/20 02/08/20 02/08/20 06:37 06:37 07:40 WBC RBC Hgb Hct MCV MCH MCHC RDW Std Deviation RDW Coeff of Yvette Plt Count MPV PT 34.0 H INR 3.4 H Sodium 136 Potassium 3.8 Chloride 104 Carbon Dioxide 26 Anion Gap 7.0 BUN 29 H Creatinine 1.01 Est Cr Clr Drug Dosing 68.1 Est GFR ( Amer) 65.8 Est GFR (Non-Af Amer) 56.8 BUN/Creatinine Ratio 28.6 H Glucose 135 H POC Glucose 138 H Calcium 9.3 Magnesium 1.7 L Medications Administered Current Inpatient Medications Acetaminophen (Acetaminophen 325 Mg Tab) 325 mg PO Q6H PRN PRN Reason: Pain or Fever Stop: 03/04/20 12:29 Allopurinol (Allopurinol 100 Mg Tab) 200 mg PO [facility] Stop: 03/04/20 20:59 Last Admin: 02/07/20 21:34 Dose: 200 mg Documented by: Amiodarone HCl (Amiodarone 200 Mg Tab) 400 mg PO TIDM MONIKA Stop: 03/08/20 11:59 Last Admin: 02/08/20 08:37 Dose: 400 mg Documented by: Amlodipine Besylate (Amlodipine Besylate 5 Mg Tab) 10 mg PO QAM MONIKA Stop: 03/09/20 09:44 Aspirin (Aspirin 81 Mg Ectab) 81 mg PO HS [facility] Stop: 03/04/20 20:59 Last Admin: 02/07/20 21:33 Dose: 81 mg Documented by: Bumetanide (Bumetanide 1 Mg Tab) 1 mg PO QAM MONIKA Stop: 03/08/20 10:44 Last Admin: 02/08/20 08:37 Dose: 1 mg Documented by: Dextrose (Dextrose 50% 50 Ml Syringe) 25 - 50 ml IV UD PRN; Protocol PRN Reason: Hypoglycemia Protocol Stop: 03/04/20 14:26 Diphenhydramine HCl (Diphenhydramine Hcl 50 Mg/Ml Vial) 12.5 mg IV Q12 PRN PRN Reason: Allergic Reaction Stop: 03/04/20 12:29 Glucagon (Glucagon For Inj 1 Mg Vial) 1 mg SQ UD PRN; Protocol PRN Reason: Hypoglycemia Protocol Stop: 03/04/20 14:26 Glucose (Glucose 10 Tabs/Tube) 4 - 8 tabs PO UD PRN; Protocol PRN Reason: Hypoglycemia Protocol Stop: 03/04/20 14:26 Glucose (Glucose 40% Gel 15 Gm Tube) 15 - 30 gm PO UD PRN; Protocol PRN Reason: Hypoglycemia Protocol Stop: 03/04/20 14:26 Hydralazine HCl (Hydralazine 10 Mg Tab) 10 mg PO TID [facility] Stop: 03/08/20 13:59 Last Admin: 02/08/20 08:37 Dose: 10 mg Documented by: Hydromorphone HCl (Hydromorphone Inj 0.5 Mg/0.5 Ml Syr) 0.5 mg IV Q2H PRN PRN Reason: Moderate Pain Stop: 02/19/20 09:49 Last Admin: 02/08/20 08:35 Dose: 0.5 mg Documented by: Hydromorphone HCl (Hydromorphone Inj 1 Mg/Ml Syringe) 1 mg IV Q2H PRN PRN Reason: Severe Pain Stop: 02/19/20 09:49 Last Admin: 02/07/20 04:07 Dose: 1 mg Documented by: Promethazine HCl 6.25 mg/ (Sodium Chloride) 50.25 mls @ 201 mls/hr IV Q6H PRN PRN Reason: Nausea And Vomiting Stop: 03/04/20 12:19 Ceftriaxone Sodium 2,000 mg/ (Dextrose) 70 mls @ 100 mls/hr IV DAILY [facility]; Protocol Stop: 02/22/20 08:59 Last Infusion: 02/08/20 09:31 Dose: Infused Documented by: Magnesium Sulfate/Dextrose (Magnesium Sulfate / D5w) 1 gm in 100 mls @ 50 mls/hr IV ONE ONE Stop: 02/08/20 10:59 Insulin Aspart (Insulin Aspart 100 Units/Ml 3 Ml Pen) 0 units SC ACHS [facility]; Protocol Stop: 03/04/20 16:29 Last Admin: 02/08/20 08:43 Dose: 6 units Documented by: Insulin Glargine (Insulin Glargine Solostar 100 Units/Ml 3 Ml Pen) 19 units SC BID [facility]; Protocol Stop: 03/04/20 20:59 Last Admin: 02/08/20 08:44 Dose: 19 units Documented by: Levothyroxine Sodium (Levothyroxine Sodium 50 Mcg Tablet) 50 mcg PO DAILYBB [facility] Stop: 03/05/20 06:29 Last Admin: 02/08/20 05:25 Dose: 50 mcg Documented by: Lisinopril (Lisinopril 40 Mg Tab) 40 mg PO QAM [facility] Stop: 03/08/20 19:59 Last Admin: 02/08/20 08:37 Dose: 40 mg Documented by: Magnesium Oxide (Magnesium Oxide 400 Mg Tab) 400 mg PO BID [facility] Stop: 03/04/20 20:59 Last Admin: 02/08/20 08:37 Dose: 400 mg Documented by: Metoprolol Tartrate (Metoprolol Tartrate 50 Mg Tab) 50 mg PO BID [facility] Stop: 03/05/20 10:44 Last Admin: 02/08/20 08:37 Dose: 50 mg Documented by: Metoprolol Tartrate (Metoprolol Tartrate 1 Mg/Ml Vial) 5 mg IV Q4 PRN PRN Reason: sustained HR > 115 Stop: 03/06/20 00:00 Last Admin: 02/06/20 07:57 Dose: 5 mg Documented by: Miscellaneous (Carbohydrates For Hypoglycemia ) 15 - 30 gm PO UD PRN PRN Reason: Hypoglycemia Protocol Stop: 03/04/20 14:26 Miscellaneous Information (Pharmacy Glycemic Mgmt Consult) 1 ea N/A UD PRN PRN Reason: Consult Stop: 03/06/20 21:02 Multivitamins (Multivitamin Tab) 1 tab PO HS [facility] Stop: 03/04/20 20:59 Last Admin: 02/07/20 21:35 Dose: 1 tab Documented by: Nystatin (Nystatin Powder 15gm Btl) 1 appln EXT TID PRN PRN Reason: Rash Stop: 03/05/20 12:39 Oxycodone HCl (Oxycodone Hcl Ir 5 Mg Tab (Immediate Release)) 5 mg PO Q6H PRN PRN Reason: Moderate Pain Stop: 02/17/20 12:18 Last Admin: 02/08/20 08:35 Dose: 5 mg Documented by: Pantoprazole Sodium (Pantoprazole 40 Mg Tab) 40 mg PO [facility] Stop: 03/05/20 08:59 Last Admin: 02/08/20 08:37 Dose: 40 mg Documented by: Spironolactone (Spironolactone 25 Mg Tab) 25 mg PO [facility] Stop: 03/09/20 08:59 Last Admin: 02/08/20 08:38 Dose: 25 mg Documented by: Vitamin D (Cholecalciferol 1,000 Units 25 Mcg Tab) 2,000 units PO [facility] Stop: 03/05/20 08:59 Last Admin: 02/08/20 08:36 Dose: 2,000 units Documented by: Warfarin Sodium (Warfarin Sod 5 Mg Tab) 5 mg PO DAILY@1600 [facility] Stop: 03/07/20 15:59 Last Admin: 02/06/20 16:10 Dose: 5 mg Documented by:
[2020-02-08] MEDS: amLODIPine BESYLATE 5 MG TAB PO SCH (10:54)
[2020-02-08] MEDS: HYDROmorphone INJ 1 MG/ML SYRINGE IV PRN ×3 (13:54→23:35)
--- NOTE | 2020-02-08 14:52 | Pharmacy Report ---
Pharmacy Glycemic Short Note 2 - Date of Service February 08, 2020 - Glycemic Short BSG Results (Last 24 hours): 02/07/20 02/07/20 02/08/20 16:38 21:13 06:33 Glucose POC Glucose 248 H 182 H 179 H 02/08/20 02/08/20 02/08/20 06:37 07:40 11:30 Glucose 135 H POC Glucose 138 H 235 H OUTPATIENT ANTIDIABETIC REGIMEN: * metformin 2,000 mg HS, repaglinide 0.5 mg AC ASSESSMENT: 02/07 * pt received 73 units of insulin yesterday, 35 of basal, 38 of correctional/prandial * Fasting BSG improved with resumed higher lantus dosing, will continue * Prandial BSGs continue to be elevated, will tighten carb ratio with dinner 02/06 * pt received 60 units of insulin yesterday, 32 of basal, 28 of prandial/correctional * Fasting BSG elevated this morning, could be d/t reduced lantus given for anticipated NPO status * Diet ordered with lunch, will resume higher lantus dose this evening * BSGs did trend up last night, tightened carb ratio this morning but yet to see any effect from this as pt has been npo 02/05 * Patient admitted 02/03/20 with AFIB w/ RVR, grp B strep bacteremia + cellulitis cultures growing multiple organisms * Patient currently on amiodarone and diltiazem infusion diluted in dextrose, and daptomycin + zosyn (also in dextrose) * Fasting BSGs have been mostly in goal range with 18 units of lantus BID- will continue- patient will be NPO at midnight, will reduce PM dose * Prandial BSGS have been elevated, tighted CF/CR last PM with improvement today- will continue this for now PLAN FOR INPATIENT GLYCEMIC CONTROL: * Hold outpatient oral diabetes medications * Basal insulin * Lantus 19 units SQ BID * Bolus insulin * NovoLog per scale ACHS or Q6hrs while NPO * Goal Range: Low 100 mg/dL - High 140 mg/dL * Correction Factor: 15 mg/dL/unit * Nutritional / Prandial insulin per carb ratio of 1 unit per 3.5 grams CHO consumed RECOMMENDATIONS FOR DISCHARGE A1c 7.6%- Plan currently for rehab. Patient will likely need to continue on insulin therapy short term as good glycemic control desirable with healing infection
[2020-02-08] MEDS: WARFARIN SOD 5 MG TAB PO SCH (16:47)
--- NOTE | 2020-02-08 17:45 | Electrocardiogram Report ---
Test Reason : Blood Pressure : / mmHG Vent. Rate : 113 BPM Atrial Rate : 127 BPM P-R Int : 176 ms QRS Dur : 092 ms QT Int : 406 ms P-R-T Axes : 072 -27 079 degrees QTc Int : 556 ms Sinus tachycardia with occasional Premature ventricular complexes , some consecutive Low voltage QRS Poor R wave progression, consider anterior NE vs. lead placement vs. LVH Prolonged QT Abnormal ECG Confirmed by Shravan Menchaca ([id number]) on 02/08/2020 5:45:16 PM Referred By: REFERRED SELF Confirmed By:Jose Menchaca
[2020-02-08] MEDS: ASPIRIN 81 MG ECTAB PO SCH (19:38)
[2020-02-08] MEDS: MULTIVITAMIN TAB PO SCH (19:40)
[2020-02-08] MEDS: ACETAMINOPHEN 325 MG TAB PO PRN (19:40)
[2020-02-08] MEDS: allopurinoL 100 MG TAB PO SCH (19:40)
--- NOTE | 2020-02-08 21:06 | Hospitalist Progress Note ---
Date of Service February 08, 2020 Assessment & Plan (1) Severe sepsis: Severe sepsis In setting of A. fib RVR, hypotension Possible Sources: Abdominal wall cellulitis, E.Coli UTI, B/L Leg Wound/Venous stasis ulcers Possible L2 Osteomyelitis Group B beta strep bacteremia Leg wound culture: Staph, group B strep, Proteus Urine culture: E. coli Blood culture: group B beta strep No vegetation on RASHID Lactate 1.6 Repeat Blood Cultures: Negative to date Received IV fluids Zosyn, daptomycin>> Transitioned to Ceftriaxone Appreciate ID Input Continue wound care Continue IV antibiotics--needs 6-week course of therapy Needs weekly CBC, CMP, CRP Needs repeat MRI of lumbar spine in 5 to 6 weeks Persistent leukocytosis, intermittent fever Needs rehab placement Needs PICC line placement prior to discharge (2) Bacteremia: Management as above (3) UTI (urinary tract infection): Management as above (4) Infected ulcer of skin: Chronic venous stasis ulcers. Wound cultures as above Continue IV antibiotics as above (5) Cellulitis of abdominal wall: Continue IV antibiotics Continue wound care (6) Back pain: Chronic Back pain: Possible L2-L3 Osteomyelitis, spinal stenosis of lumbar spine Worsened currently --Lumbar MRI:Technically limited study. The patient was unable to complete on the images due to severe pain. Marked widening of the L2-3 disc which demonstrates markedly increased T2 signal. There is no surrounding paravertebral edema, and there are no convincing findings of adjacent vertebral body osteomyelitis. Diagnostic considerations include a pseudoarthrosis versus discitis. A pseudoarthrosis is favored. Does this patient have history of prior trauma?. Advanced multilevel spondylitic change. Multilevel spinal stenosis which is moderate to severe at the L3-4 level, and moderate at the L4-5 and L5- S1 levels. Multilevel foraminal narrowing. --ABD Arterial US: No evidence for an abdominal aortic aneurysm. --Appreciate orthopedics input --Will need debridement of lumbar spine eventually --Possibly need to be transferred to tertiary care facility --Continue IV antibiotics-- 6 week course --Needs Repeat MRI spine in 5-6 weeks as outpatient --Pain management consulted (7) Hypotension: Resolved Monitor (8) Atrial fibrillation with RVR: Afib RVR H/O paroxysmal A. fib Unsuccessful Cardioversion in ED. S/P RASHID with successful cardioversion RASHID: No evidence of mass or vegetation. This does not rule out endocarditis. No thrombus is detected in the left atrial appendage. The left atrium is moderately dilated. Right atrial size is normal. Left ventricle systolic function is normal. Right ventricle systolic function is normal. Amiodarone Infusion and diltiazem infusion discontinued Continue PO Amiodarone as per cardiology Appreciate cardiology input Supratherapeutic INR No active bleeding issues Monitor PT/INR: 2.8>>4.4>>3.4 Hold Coumadin for now (9) Supratherapeutic INR: INR 8.7>>4.4 Elevated INR secondary to warfarin therapy. 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 Pharmacy for glycemic management consulted (13) Hypothyroidism: Continue levothyroxine (14) Morbid obesity: BMI 57.7 (15) Venous ulcers of both lower extremities: Continue Wound Care (16) COVID-19 ruled out: SARS-CoV-2 PCR negative. (17) DVT prophylaxis: Held warfarin Supratherapeutic INR Code Status Full Code (18) Discharge planning issues: Needs rehab placement Internal Medicine follow-up with Dr. Whitmore. Cardiology follow-up with Dr. Foster. Admission and Anticipated Discharge Date Admission Date: February 03, 2020 Subjective Patient is seen and examined at bedside Reports back pain is slightly better today but still has significant pain with movement Discussed with cardiology today Pain management consulted Denies chest pain, shortness of breath, dizziness, nausea, abdominal pain Remains in sinus Persistent leukocytosis Febrile overnight Review of Systems Review of Systems: All systems reviewed & are unremarkable except as noted in HPI & below Physical Exam Physical Exam: Physical Exam: Vitals signs as noted above General Appearance:Morbidly Obese, no apparent distress Head: normocephalic, Atraumatic Eyes: normal inspection, EOMI Neck: supple, Trachea midline Respiratory/Chest: Normal breath sounds, basal rales Cardiovascular: Sinus, No murmur Abdomen/GI:Soft, mild tender, abdominal wound in dressing, bowel sounds present Extremities/Musculoskelatal:normal inspection, B/L LE wounds in dressing, no edema Neurologic/Psych:AAOX3, grossly no focal neurological deficits Skin: normal color, warm Results & Data Results & Data ([facility]) Vital Signs (Past 12 Hours) Vital Signs Temp Pulse Pulse Resp BP BP Pulse Ox 02/08/20 19:29 37.8 C H 94 H 22 149/72 H 98 02/08/20 17:35 91 H 02/08/20 16:03 37.0 C 96 H 20 136/72 96 02/08/20 12:28 36.8 C 65 18 133/62 96 Laboratory Results Short CBC 02/08/20 Range/Units 06:37 WBC 13.53 H (4.8-10.8) K/uL Hgb 10.7 L (12.0-16.0) g/dL Hct 32.3 L (37-47) % Plt Count 374 (130-400) K/uL BMP 02/08/20 06:37 Sodium 136 Potassium 3.8 Chloride 104 Carbon Dioxide 26 BUN 29 H Creatinine 1.01 Glucose 135 H Calcium 9.3
[2020-02-09] MEDS: oxyCODONE HCL IR 5 MG TAB (IMMEDIATE RELEASE) PO PRN ×3 (05:29→16:17)
[2020-02-09] MEDS: LEVOTHYROXINE SODIUM 50 MCG TABLET PO SCH (05:29)
[2020-02-09] MEDS: HYDROmorphone INJ 1 MG/ML SYRINGE IV PRN ×3 (07:41→23:10)
[2020-02-09] MEDS: hydrALAZINE 10 MG TAB PO SCH ×3 (07:44→20:49)
[2020-02-09] MEDS: SPIRONOLACTONE 25 MG TAB PO SCH (07:44)
[2020-02-09] MEDS: BUMETANIDE 1 MG TAB PO SCH (07:45)
[2020-02-09] MEDS: lisinopril 40 MG TAB PO SCH (07:45)
[2020-02-09] MEDS: METOPROLOL TARTRATE 50 MG TAB PO SCH ×2 (07:45→20:49)
[2020-02-09] MEDS: AMIODARONE 200 MG TAB PO SCH ×2 (07:45→17:48)
[2020-02-09] MEDS: amLODIPine BESYLATE 5 MG TAB PO SCH (07:45)
[2020-02-09] MEDS: MAGNESIUM OXIDE 400 MG TAB PO SCH ×2 (07:46→20:48)
[2020-02-09] MEDS: CHOLECALCIFEROL 1,000 UNITS 25 MCG TAB PO SCH (07:46)
[2020-02-09] MEDS: PANTOprazole 40 MG TAB PO SCH (07:46)
[2020-02-09 07:49] LABS: Prothrombin Time 39.2 Seconds (9.0-12.0)
[2020-02-09] MEDS: cefTRIAXone SODIUM 2,000 MG in DEXTROSE 5% 50 ML IV SCH (07:54)
[2020-02-09] MEDS: INSULIN ASPART 100 UNITS/ML 3 ML PEN SC SCH ×4 (07:59→21:42)
[2020-02-09] MEDS: INSULIN GLARGINE SOLOSTAR 100 UNITS/ML 3 ML PEN SC SCH ×2 (08:00→21:42)
[2020-02-09 08:03] LABS: BUN Creatinine Ratio 28.7 (10-20); Calcium 9.2 mg/dl (8.5-10.1); Creatinine Clr Calc Pharmacy 73.2 ml/min; Est GFR (African American) 71.7; Est GFR (Non-African American) 61.9; Magnesium 1.7 mg/dl (1.8-2.4); Potassium 4.6 mmol/L (3.5-5.1)
--- NOTE | 2020-02-09 08:58 | Pain Management Consultation ---
Date of Consultation February 09, 2020 Assessment & Plan (1) Discitis of lumbosacral region: * Increased Oxycodone to 5-10mg depending on pain level * Patient will decrease the use of IV Dilaudid. * Nothing to offer the patient interventionally. History of Present Illness Attending Physician: Skinny Kapoor MD History of Present Illness This is a 69 year old female that has been seen for low back pain. Patient was found to have discitis/osteomyelitis. She reports axial low back pain without radicular symptoms. She was chronically on Ibuprofen and Tramadol for pain control. Patient states that the low back pain is described as a sharp stabbing pain that is worse with movement. The pain is mild when laying supine. She is currently taking Oxycodone 5mg and IV Dilaudid. Oxycodone is providing mild relief without any side effects. IV Dilaudid is efficacious. No constipation, confusion, drowsiness. Case discussed with Dr. Naomi Sherman Pain [facility]: 7-Severe - Pain prevents productive activity. Impossible to tolerate. Allergies Allergy/AdvReac Type Severity Reaction Status Date / Time Penicillins Allergy Intermediate URTICARIA; Verified 02/03/20 11:07 PER PT, CAN TAKE AMOXICILLIN erythromycin base AdvReac Mild GI UPSET Verified 02/03/20 11:07 Home Medications Home Medications Medication Instructions Recorded Confirmed Type allopurinol 100 mg tablet 200 mg PO HS tab 02/15/18 02/03/20 History aspirin 81 mg chewable tablet 81 mg PO HS 02/15/18 02/03/20 History bumetanide 1 mg tablet 1 mg PO QAM 02/15/18 02/03/20 History cholecalciferol (vitamin D3) 25 2,000 units PO QAM 02/15/18 02/03/20 History mcg (1,000 unit) capsule hydralazine 10 mg tablet 10 mg PO TID 02/15/18 02/03/20 History ibuprofen 400 mg tablet 400 mg PO BID 02/15/18 02/03/20 History lisinopril 40 mg tablet 40 mg PO HS 02/15/18 02/03/20 History metoprolol tartrate 100 mg tablet 100 mg PO BID 02/15/18 02/03/20 History multivitamin 1 tab PO HS 02/15/18 02/03/20 History omeprazole 20 mg capsule,delayed 20 mg PO QAM 02/15/18 02/03/20 History release spironolactone 25 mg tablet 25 mg PO QAM 02/15/18 02/03/20 History tramadol 50 mg tablet 50 mg PO QID PRN 02/15/18 02/03/20 History warfarin 7.5 mg tablet 7.5 mg PO SUTUWETHFRSA tab 02/15/18 02/03/20 History levothyroxine 50 mcg capsule 50 mcg PO QAM cap 03/03/18 02/03/20 History metformin 500 mg tablet 2,000 mg PO HS 03/15/18 02/03/20 History amlodipine 10 mg PO QAM 02/03/20 02/03/20 History magnesium oxide 400 mg PO MOWEFR 02/03/20 02/03/20 History repaglinide 0.5 mg PO AC 02/03/20 02/03/20 History rosuvastatin [Crestor] 10 mg PO HS 02/03/20 02/03/20 History warfarin 10 mg PO MO 02/03/20 02/03/20 History Patient History Medical History Acute CHF Anemia Atrial fibrillation with RVR CKD stage 3 secondary to diabetes Complicated UTI (urinary tract infection) Complicated UTI (urinary tract infection) CVA (cerebral vascular accident) Diabetes mellitus type 2 with complications Dizziness DM II (diabetes mellitus, type II), controlled Dyslipidemia Gastric ulcer Gastric ulcer due to Helicobacter pylori Gout H pylori ulcer H/O Moh's micrographic surgery for skin cancer H/O: upper GI bleed Heme positive stool HTN (hypertension) Hx of basal cell carcinoma Hypertension Hypokalemia Hypomagnesemia Hypothyroidism Infected ulcer of skin Infected ulcer of skin Morbid obesity Osteoarthritis Surgical History H/O basal cell carcinoma excision H/O left knee surgery H/O repair of rotator cuff History of arthroplasty of left knee History of carpal tunnel surgery History of carpal tunnel surgery Status post Mohs surgery Family History Mother Heart disease Diabetes Father Stroke Hypertension Other No pertinent family history Social History Smoking Status: Never smoker Second Hand Exposure: No; Do You Dip or Chew Tobacco: No; Tobacco Cessation Education Requested by Patient: No Hx Alcohol Use: Yes Alcohol type: wine Hx Substance Use: No Preferred Language: Yoruba Communication Ability: Effective Hearing Ability: Normal Gaming Manager Required: No Beliefs That Will Affect Care: None marital status: / Current Living Situation: Alone current occupational status: retired Other Information That Helps Us Care for You: No Feels Safe at Home: Yes Assistive Devices: Walker Physical Exam Physical Exam: GENERAL: This is a morbidly obese 69 year old female. Does not appear in any acute distress while laying supine in the hospital bed. HEAD/FACE: Normocephalic and atraumatic. EYES: No drainage or conjunctival injection. ENT: Nose without bleeding or discharge. Oral mucosa moist. CHEST/AXILLA: Chest movement symmetrical. No deformities noted. ABDOMEN/GI: No distension SKIN: [place], warm and dry. No rash noted. MS/EXTREMITY: Moving extremities appropriately. NEURO: Alert and appears oriented. Speech is fluent. Cranial Nerves are grossly intact. PSYCH: Alert, pleasant, affect is calm Results (Pain Clinic) Diagnostic Review MRI Findings: MR lumbar spine wo con CLINICAL HISTORY: severe back pain, bacteremia, r/o infection TECHNIQUE: Sagittal and axial T1, T2 and STIR images were obtained. COMPARISON STUDY: X-ray study dated 02/03/2020, MRI dated 03/12/2017 OBSERVATIONS: The vertebral bodies and posterior elements appear intact. There is no abnormal bony signal present to suggest a marrow replacement process. There is a prominent levoscoliosis. L1-2: The disc is degenerated. There is a circumferential disc bulge. There is minimal triangular spinal canal narrowing. There is moderate right-sided foraminal narrowing L2-3: There is marked increased T2 signal of the disc which is markedly widened. There is no cyst significant marrow edema within either the L2 or L3 vertebral bodies. While discitis cannot be excluded with certainty, the findings favor a pseudoarthrosis. Does this patient have a history of prior trauma? L3-4: There is a circumferential disc bulge. There is moderate to severe spinal stenosis. There is severe right-sided foraminal narrowing and mild left-sided foraminal narrowing L4-5: There is a circumferential disc bulge. There is facet joint arthropathy. There is moderate spinal stenosis. There is moderate bilateral foraminal narrowing. There is a grade 1 spinal listhesis of L4 on L5 L5-S1: There is a circumferential disc bulge and moderate spinal stenosis. There is mild to moderate left-sided foraminal narrowing. There is facet joint arthropathy. The conus medullaris and cauda equina appear normal. There is no convincing evidence of epidural abscess although the diagnostic quality of the study is limited, and the patient was unable to tolerate was contrast images.. IMPRESSION: 1. Technically limited study. The patient was unable to complete on the images due to severe pain 2. Marked widening of the L2-3 disc which demonstrates markedly increased T2 signal. There is no surrounding paravertebral edema, and there are no convincing findings of adjacent vertebral body osteomyelitis. Diagnostic considerations include a pseudoarthrosis versus discitis. A pseudoarthrosis is favored. Does t his patient have history of prior trauma? 3. Advanced multilevel spondylytic change. Multilevel spinal stenosis which is moderate to severe at the L3-4 level, and moderate at the L4-5 and L5-S1 levels. 4. Multilevel foraminal narrowing. ACT 112: Negative or not required by law. Electronically signed by: Nba Hernandez M.D. 02/05/2020 1:53 PM
--- NOTE | 2020-02-09 09:42 | Cardiology Progress Note ---
Date of Service February 09, 2020 Assessment & Plan (1) Low back pain: (2) Ambulatory dysfunction: (3) Morbid obesity: (4) Supratherapeutic INR: (5) Atrial fibrillation with RVR: (6) Sepsis due to alpha-hemolytic Streptococcus: The patient is maintaining sinus rhythm. I will decrease her amiodarone to 400 mg twice daily with the eventual dose being somewhere between 200 to 400 mg daily. She is supratherapeutic on her warfarin and it was held today. At some point he will have to be restarted. Pain management's help is appreciated. Admission and Anticipated Discharge Date Admission Date: February 03, 2020 Subjective Pain management's help is appreciated. The patient's biggest complaint at this point is discomfort in her back. Review of Systems Review of Systems: All systems reviewed & are unremarkable except as noted in Subjective Physical Exam Physical Exam: General: no acute distress and stated age Head: normocephalic, no masses, lesions, tenderness or abnormalities Eyes: conjunctiva are pink and non-injected, sclera clear Neck: supple, no adenopathy, no bruits, normal jugular venous pulse, no hepatojugular reflux Chest: normal shape and normal respiratory effort Lungs: clear to auscultation and percussion Cardiac Exam: - regular rate & rhythm, no murmurs gallops or rubs - normal S1, normal S2 Pulses: 2(+) throughout Abdomen: abdomen soft, non-tender, no abnormal masses and no hepatosplenomegaly Musculoskeletal: no gait disturbance, no joint inflammation, no deforming arthritis Extremities: no edema and no cyanosis Neuro: grossly normal exam Results & Data ([facility]) Vital Signs (Past 12 Hours) Vital Signs Temp Pulse Pulse Resp BP BP Pulse Ox 02/09/20 08:52 94 H 02/09/20 07:51 36.9 C 91 H 19 146/63 H 96 02/09/20 02:45 36.7 C 83 18 131/77 93 02/09/20 00:04 36.8 C 82 18 112/57 L 93 02/08/20 23:30 87 Laboratory Results Laboratory Results - last 24 hr 02/08/20 02/08/20 02/08/20 11:30 16:23 20:55 PT INR Sodium Potassium Chloride Carbon Dioxide Anion Gap BUN Creatinine Est Cr Clr Drug Dosing Est GFR ( Amer) Est GFR (Non-Af Amer) BUN/Creatinine Ratio Glucose POC Glucose 235 H 229 H 143 H Calcium Magnesium 02/09/20 02/09/20 02/09/20 07:22 07:22 07:36 PT 39.2 H INR 4.0 H Sodium 135 L Potassium 4.6 D Chloride 102 Carbon Dioxide 27 Anion Gap 6.0 BUN 27 H Creatinine 0.94 Est Cr Clr Drug Dosing 73.2 Est GFR ( Amer) 71.7 Est GFR (Non-Af Amer) 61.9 BUN/Creatinine Ratio 28.7 H Glucose 142 H POC Glucose 190 H Calcium 9.2 Magnesium 1.7 L Medications Administered Current Inpatient Medications Acetaminophen (Acetaminophen 325 Mg Tab) 325 mg PO Q6H PRN PRN Reason: Pain or Fever Stop: 03/04/20 12:29 Last Admin: 02/08/20 19:40 Dose: 325 mg Documented by: Allopurinol (Allopurinol 100 Mg Tab) 200 mg PO [facility] Stop: 03/04/20 20:59 Last Admin: 02/08/20 19:40 Dose: 200 mg Documented by: Amiodarone HCl ([facility] 200 Mg Tab) [facility] Stop: 03/10/20 16:59 Amlodipine Besylate (Amlodipine Besylate 5 Mg Tab) 10 mg PO [facility] Stop: 03/09/20 09:44 Last Admin: 02/09/20 07:45 Dose: 10 mg Documented by: Aspirin (Aspirin 81 Mg Ectab) 81 mg PO [facility] Stop: 03/04/20 20:59 Last Admin: 02/08/20 19:38 Dose: 81 mg Documented by: Bumetanide (Bumetanide 1 Mg Tab) 1 mg PO [facility] Stop: 03/08/20 10:44 Last Admin: 02/09/20 07:45 Dose: 1 mg Documented by: Dextrose (Dextrose 50% 50 Ml Syringe) 25 - 50 ml IV UD PRN; Protocol PRN Reason: Hypoglycemia Protocol Stop: 03/04/20 14:26 Diphenhydramine HCl (Diphenhydramine Hcl 50 Mg/Ml Vial) 12.5 mg IV Q12 PRN PRN Reason: Allergic Reaction Stop: 03/04/20 12:29 Glucagon (Glucagon For Inj 1 Mg Vial) 1 mg SQ UD PRN; Protocol PRN Reason: Hypoglycemia Protocol Stop: 03/04/20 14:26 Glucose (Glucose 10 Tabs/Tube) 4 - 8 tabs PO UD PRN; Protocol PRN Reason: Hypoglycemia Protocol Stop: 03/04/20 14:26 Glucose (Glucose 40% Gel 15 Gm Tube) 15 - 30 gm PO UD PRN; Protocol PRN Reason: Hypoglycemia Protocol Stop: 03/04/20 14:26 Hydralazine HCl (Hydralazine 10 Mg Tab) 10 mg PO TID MONIKA Stop: 03/08/20 13:59 Last Admin: 02/09/20 07:44 Dose: 10 mg Documented by: Hydromorphone HCl (Hydromorphone Inj 0.5 Mg/0.5 Ml Syr) 0.5 mg IV Q2H PRN PRN Reason: Moderate Pain Stop: 02/19/20 09:49 Last Admin: 02/08/20 08:35 Dose: 0.5 mg Documented by: Hydromorphone HCl (Hydromorphone Inj 1 Mg/Ml Syringe) 1 mg IV Q2H PRN PRN Reason: Severe Pain Stop: 02/19/20 09:49 Last Admin: 02/09/20 07:41 Dose: 1 mg Documented by: Promethazine HCl 6.25 mg/ (Sodium Chloride) 50.25 mls @ 201 mls/hr IV Q6H PRN PRN Reason: Nausea And Vomiting Stop: 03/04/20 12:19 Ceftriaxone Sodium 2,000 mg/ (Dextrose) 70 mls @ 100 mls/hr IV DAILY [facility]; Protocol Stop: 02/22/20 08:59 Last Infusion: 02/09/20 09:04 Dose: Infused Documented by: Insulin Aspart (Insulin Aspart 100 Units/Ml 3 Ml Pen) 0 units SC ACHS [facility]; Protocol Stop: 03/04/20 16:29 Last Admin: 02/09/20 07:59 Dose: 18 units Documented by: Insulin Glargine (Insulin Glargine Solostar 100 Units/Ml 3 Ml Pen) 19 units SC BID [facility]; Protocol Stop: 03/04/20 20:59 Last Admin: 02/09/20 08:00 Dose: 19 units Documented by: Levothyroxine Sodium (Levothyroxine Sodium 50 Mcg Tablet) 50 mcg PO DAILYBB [facility] Stop: 03/05/20 06:29 Last Admin: 02/09/20 05:29 Dose: 50 mcg Documented by: Lisinopril (Lisinopril 40 Mg Tab) 40 mg PO QAM [facility] Stop: 03/08/20 19:59 Last Admin: 02/09/20 07:45 Dose: 40 mg Documented by: Magnesium Oxide (Magnesium Oxide 400 Mg Tab) 400 mg PO BID [facility] Stop: 03/04/20 20:59 Last Admin: 02/09/20 07:46 Dose: 400 mg Documented by: Metoprolol Tartrate (Metoprolol Tartrate 50 Mg Tab) 50 mg PO BID [facility] Stop: 03/05/20 10:44 Last Admin: 02/09/20 07:45 Dose: 50 mg Documented by: Metoprolol Tartrate (Metoprolol Tartrate 1 Mg/Ml Vial) 5 mg IV Q4 PRN PRN Reason: sustained HR > 115 Stop: 03/06/20 00:00 Last Admin: 02/06/20 07:57 Dose: 5 mg Documented by: Miscellaneous (Carbohydrates For Hypoglycemia ) 15 - 30 gm PO UD PRN PRN Reason: Hypoglycemia Protocol Stop: 03/04/20 14:26 Miscellaneous Information (Pharmacy Glycemic Mgmt Consult) 1 ea N/A UD PRN PRN Reason: Consult Stop: 03/06/20 21:02 Multivitamins (Multivitamin Tab) 1 tab PO HS [facility] Stop: 03/04/20 20:59 Last Admin: 02/08/20 19:40 Dose: 1 tab Documented by: Nystatin (Nystatin Powder 15gm Btl) 1 appln EXT TID PRN PRN Reason: Rash Stop: 03/05/20 12:39 Oxycodone HCl (Oxycodone Hcl Ir 5 Mg Tab (Immediate Release)) 5 - 10 mg PO Q4 PRN PRN Reason: Pain Stop: 02/23/20 09:59 Pantoprazole Sodium (Pantoprazole 40 Mg Tab) [facility] Stop: 03/05/20 08:59 Last Admin: 02/09/20 07:46 Dose: 40 mg Documented by: Spironolactone (Spironolactone 25 Mg Tab) 25 mg PO QAM [facility] Stop: 03/09/20 08:59 Last Admin: 02/09/20 07:44 Dose: 25 mg Documented by: Vitamin D (Cholecalciferol 1,000 Units 25 Mcg Tab) 2,000 units PO QAM [facility] Stop: 03/05/20 08:59 Last Admin: 02/09/20 07:46 Dose: 2,000 units Documented by: Warfarin Sodium (Warfarin Sod 5 Mg Tab) 5 mg PO DAILY@1600 [facility] Stop: 03/07/20 15:59 Last Admin: 02/08/20 16:47 Dose: 5 mg Documented by:
[2020-02-09] MEDS ORDERED: MAGNESIUM SULFATE / D5W 1 GM/100 ML BAG IV ONE (10:00)
--- NOTE | 2020-02-09 12:28 | Hospitalist Progress Note ---
Date of Service February 09, 2020 Assessment & Plan (1) Severe sepsis: Severe sepsis In setting of A. fib RVR, hypotension Possible Sources: Abdominal wall cellulitis, E.Coli UTI, B/L Leg Wound/Venous stasis ulcers Possible L2 Osteomyelitis Group B beta strep bacteremia Leg wound culture: Staph, group B strep, Proteus Urine culture: E. coli Blood culture: group B beta strep---02/03/20 No vegetation on RASHID Lactate 1.6 Received IV fluids Zosyn, daptomycin>> Transitioned to Ceftriaxone Appreciate Ella ID Input Continue wound care Continue IV antibiotics--needs 6-week course of therapy Needs weekly CBC, CMP, CRP Needs repeat MRI of lumbar spine in 5 to 6 weeks Persistent leukocytosis, intermittent fever Likely needs Rehab placement Needs PICC line when appropriate Afebrile today Continue current medications Repeat blood culture from 02/07/20 : remain negative (2) Bacteremia: Management as above (3) UTI (urinary tract infection): Management as above (4) Infected ulcer of skin: Chronic venous stasis ulcers. Wound cultures as above Continue IV antibiotics as above (5) Cellulitis of abdominal wall: Continue IV antibiotics Continue wound care (6) Back pain: Chronic Back pain: Possible L2-L3 Osteomyelitis, spinal stenosis of lumbar spine Worsened currently --Lumbar MRI:Technically limited study. The patient was unable to complete on the images due to severe pain. Marked widening of the L2-3 disc which demonstrates markedly increased T2 signal. There is no surrounding paravertebral edema, and there are no convincing findings of adjacent vertebral body osteomyelitis. Diagnostic considerations include a pseudoarthrosis versus discitis. A pseudoarthrosis is favored. Does this patient have history of prior trauma?. Advanced multilevel spondylitic change. Multilevel spinal stenosis which is moderate to severe at the L3-4 level, and moderate at the L4-5 and L5- S1 levels. Multilevel foraminal narrowing. --ABD Arterial US: No evidence for an abdominal aortic aneurysm. --Appreciate orthopedics input --Will need debridement of lumbar spine --Continue IV antibiotics-- 6 week course --Needs Repeat MRI spine in 5-6 weeks as outpatient --Pain management consulted --Discussed with Dr. Choi--recommended transfer to tertiary care facility for possible debridement of L2 vertebra likely will need anterior approach --Patient unable to participate with PT OT, secondary to significant back pain --Patient is accepted to [facility] :: Accepting physician Dr. Marco A Stevens for further management (7) Hypotension: Resolved Monitor (8) Atrial fibrillation with RVR: Afib RVR H/O paroxysmal A. fib Unsuccessful Cardioversion in ED. S/P RASHID with successful cardioversion RASHID: No evidence of mass or vegetation. This does not rule out endocarditis. No thrombus is detected in the left atrial appendage. The left atrium is moderately dilated. Right atrial size is normal. Left ventricle systolic function is normal. Right ventricle systolic function is normal. Amiodarone Infusion and diltiazem infusion discontinued Continue PO Amiodarone as per cardiology Appreciate cardiology input Supratherapeutic INR No active bleeding issues Monitor PT/INR: 2.8>>4.4>>3.4>>4.0 Hold Coumadin for now Amiodarone titrated to 400 mg twice daily today Plan to be transitioned to 400 mg of amiodarone daily as able (9) Supratherapeutic INR: INR 8.7>>4.4>>4.0 Elevated INR secondary to warfarin therapy. 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 Pharmacy for glycemic management consulted (13) Hypothyroidism: Continue levothyroxine (14) Morbid obesity: BMI 57.7 (15) Venous ulcers of both lower extremities: Continue Wound Care (16) COVID-19 ruled out: SARS-CoV-2 PCR negative. (17) DVT prophylaxis: Held warfarin Supratherapeutic INR Code Status Full Code (18) Discharge planning issues: Transfer to [facility] :: Accepting physician Dr. Marco A Stevens Internal Medicine follow-up with Dr. Whitmore. Cardiology follow-up with Dr. Foster. Admission and Anticipated Discharge Date Admission Date: February 03, 2020 Subjective Patient is seen and examined at bedside Reports significant back pain Unable to participate with physical therapy Discussed with Dr. Choi and Dr. Lino today No other complaints Remains in sinus Denies chest pain, shortness of breath, dizziness, nausea, abdominal pain Febrile overnight Discussed with [facility], was accepted by Dr. Stevens Review of Systems Review of Systems: All systems reviewed & are unremarkable except as noted in HPI & below Physical Exam Physical Exam: Physical Exam: Vitals signs as noted above General Appearance:Morbidly Obese, no apparent distress Head: normocephalic, Atraumatic Eyes: normal inspection, EOMI Neck: supple, Trachea midline Respiratory/Chest: Normal breath sounds, basal rales Cardiovascular: Sinus, No murmur Abdomen/GI:Soft, mild tender, abdominal wound in dressing, bowel sounds present Extremities/Musculoskelatal:normal inspection, B/L LE wounds in dressing, no edema Neurologic/Psych:AAOX3, grossly no focal neurological deficits Skin: normal color, warm Results & Data Results & Data ([facility]) Vital Signs (Past 12 Hours) Vital Signs Temp Pulse Pulse Resp BP BP Pulse Ox 02/09/20 12:02 36.7 C 80 20 116/68 92 02/09/20 08:52 94 H 02/09/20 07:51 36.9 C 91 H 19 146/63 H 96 02/09/20 02:45 36.7 C 83 18 131/77 93 Laboratory Results BMP 02/09/20 07:22 Sodium 135 L Potassium 4.6 D Chloride 102 Carbon Dioxide 27 BUN 27 H Creatinine 0.94 Glucose 142 H Calcium 9.2
--- NOTE | 2020-02-09 12:45 | Electrocardiogram Report ---
Test Reason : Blood Pressure : / mmHG Vent. Rate : 097 BPM Atrial Rate : 097 BPM P-R Int : 136 ms QRS Dur : 086 ms QT Int : 376 ms P-R-T Axes : 052 005 068 degrees QTc Int : 477 ms Sinus rhythm with marked sinus arrhythmia Poor R wave progression, consider anterior GA vs. lead placement vs. LVH Abnormal ECG When compared with ECG of 08-FEB-2020 06:15, Premature ventricular complexes are no longer Present Confirmed by Shravan Menchaca ([id number]) on 02/09/2020 12:45:36 PM Referred By: REFERRED SELF Confirmed By:Jose Menchaca
--- NOTE | 2020-02-09 12:49 | Discharge Summary ---
Date of Service February 09, 2020 Admission HPI Per Admitting Provider Patient is a 69 yo female with history of DM Type 2, Hypothyroidism, hyperlipidemia, Paroxysmal AFib, EDYTA on CPAP, CKD III, Pulmonary HTN, Chronic low back pain, and history of CVA who presented to the ED via EMS with a few days of excruciating Right lower back pain. She states that 3 weeks ago, she knew she was in AFib, but she thought it subsided on it's own. She did also have a cold at that time. The cold symptoms subsided. Over the past few days, she noted that she was back in Afib, and her back started to increase compared to baseline. She typically has low back pain for which she takes Tramadol PRN (usually twice daily), Ibuprofen, and has had injections outpatient by Dr. Cloud in the past as well. The pain that she had this morning was much worse than usual. No radiation into her legs or abdomen. She also notes that over the past few days, she has been urinating less than normal, and her appetite has been poor. She has not been drinking much at all. She did have severe sweats with her pain last night and this morning but no chills. No headache, myalgia, dysphagia, abdominal pain, N/V/D, dysuria, or leg edema. She does have chronic lower extremity discoloration and wounds on and off that will not heal. No recent issues with her lower legs out of the norm. No recent infections. She also has a very large bruise on her lower abdomen which she thinks she sustained today getting here. Upon presentation to the ED, she was noted to be hypotensive in AFib w/RVR. She was cardioverted in the ED and converted to NSR. She was also given IV fluids. On lab evaluation, her INR was noted to be supratherapeutic at 8.7WBC count elevated, creatinine 2.62. No urine sample collected yet. Slight anemia with Hgb 10.5- little lower than baseline chronic anemia. Last outpatient Echocardiogram was completed in 2018 & showed mild LVH, Grade II diastolic dysfunction, EF 55-60%. She follows with Dr. Foster for outpatient Cardiology. Her INR on 01/23/20 was 2.4 outpatient. Admission Exam Per Admitting Provider Physical Exam Constitutional: + ill appearing and + morbidly obese; no acute distress Eyes: PERRL, conjunctivae normal, anicteric sclerae ENMT: external ear and nose normal, oropharynx normal Neck: trachea midline, no thyromegaly Respiratory: normal respiratory effort, lungs clear to auscultation Cardiovascular: Rate/Rhythm: regular rate and regular rhythm Heart Sounds: no gallop and no murmur Gastrointestinal (Abdomen): normal bowel sounds, soft, nontender, no hepatosplenomegaly Musculoskeletal: Head/Neck/Chest: normocephalic, head atraumatic and neck supple Extremities: no joint enlargement and no cyanosis Skin: B/L LE with venous stasis dermatitis. L>R. LLE with very mild erythema without warmth. Very small ulceration on anterior tibial surface. Very large ecchymosis on the lower abdomen. Neurologic: PERRL, EOMI, accommodation nl, no face palsy, no dysarthria Psychiatric: A+Ox3, euthymic affect Principal Diagnosis Severe sepsis A. fib RVR Group B beta strep bacteremia L2 osteomyelitis, multifocal lumbar stenosis, discitis Abdominal wall cellulitis E. coli UTI Supratherapeutic INR Venous stasis ulcers Hypomagnesemia Discharge Data Allergies Allergy/AdvReac Type Severity Reaction Status Date / Time Penicillins Allergy Intermediate URTICARIA; Verified 02/03/20 11:07 PER PT, CAN TAKE AMOXICILLIN erythromycin base AdvReac Mild GI UPSET Verified 02/03/20 11:07 Consultations 02/03/20 11:40 ED Decision to Admit Stat 02/03/20 12:12 Consult Cardiology Routine 02/03/20 12:18 Consult Nephrology Routine 02/03/20 12:19 Consult Case Management - Discharge Planning Routine 02/03/20 14:27 Consult Case Management - Discharge Planning Routine 02/05/20 16:12 Consult Orthopedic Surgery Routine 02/06/20 09:26 Consult Infectious Diseases Routine 02/06/20 12:01 Consult Anesthesiology Routine 02/06/20 12:03 Consult Anesthesiology Routine 02/08/20 09:28 Consult Pain Management Routine 02/09/20 12:25 Burn CD for patient Stat Procedures Performed Operation Date: 02/07/20 07:15 Actual Procedures p Echo Transesophageal - Ritesh Lino DO s Echo Color Flow - Ritesh Lino DO s Cardioversion - Ritesh Lino DO -Lumbar MRI:Technically limited study. The patient was unable to complete on the images due to severe pain. Marked widening of the L2-3 disc which demonstrates markedly increased T2 signal. There is no surrounding paravertebral edema, and there are no convincing findings of adjacent vertebral body osteomyelitis. Diagnostic considerations include a pseudoarthrosis versus discitis. A pseudoarthrosis is favored. Does this patient have history of prior trauma?. Advanced multilevel spondylitic change. Multilevel spinal stenosis which is moderate to severe at the L3-4 level, and moderate at the L4-5 and L5-S1 levels. Multilevel foraminal narrowing. --ABD Arterial US: No evidence for an abdominal aortic aneurysm. --R Hip X ray:No fracture or dislocation within the pelvis or hips. Ordered Studies 02/03/20 12:22 US abdominal aortic aneurysm Stat 02/05/20 09:50 MR lumbar spine wo con Urgent Hospital Course (1) Severe sepsis: Severe sepsis In setting of A. fib RVR, hypotension Possible Sources: Abdominal wall cellulitis, E.Coli UTI, B/L Leg Wound/Venous stasis ulcers Possible L2 Osteomyelitis Group B beta strep bacteremia Leg wound culture: Staph, group B strep, Proteus Urine culture: E. coli Blood culture: group B beta strep---02/03/20 No vegetation on RASHID Lactate 1.6 Received IV fluids Zosyn, daptomycin>> Transitioned to Ceftriaxone Appreciate Ella ID Input Continue wound care Continue IV antibiotics--needs 6-week course of therapy Needs weekly CBC, CMP, CRP Needs repeat MRI of lumbar spine in 5 to 6 weeks Persistent leukocytosis, intermittent fever Likely needs Rehab placement Needs PICC line when appropriate Afebrile today Continue current medications Repeat blood culture from 02/07/20 : remain negative (2) Bacteremia: Management as above (3) UTI (urinary tract infection): Management as above (4) Infected ulcer of skin: Chronic venous stasis ulcers. Wound cultures as above Continue IV antibiotics as above (5) Cellulitis of abdominal wall: Continue IV antibiotics Continue wound care (6) Back pain: Chronic Back pain: Possible L2-L3 Osteomyelitis, spinal stenosis of lumbar spine Worsened currently --Lumbar MRI:Technically limited study. The patient was unable to complete on the images due to severe pain. Marked widening of the L2-3 disc which demonstrates markedly increased T2 signal. There is no surrounding paravertebral edema, and there are no convincing findings of adjacent vertebral body osteomyelitis. Diagnostic considerations include a pseudoarthrosis versus discitis. A pseudoarthrosis is favored. Does this patient have history of prior trauma?. Advanced multilevel spondylitic change. Multilevel spinal stenosis which is moderate to severe at the L3-4 level, and moderate at the L4-5 and L5- S1 levels. Multilevel foraminal narrowing. --ABD Arterial US: No evidence for an abdominal aortic aneurysm. --Appreciate orthopedics input --Will need debridement of lumbar spine --Continue IV antibiotics-- 6 week course --Needs Repeat MRI spine in 5-6 weeks as outpatient --Pain management consulted --Discussed with Dr. Choi--recommended transfer to tertiary care facility for possible debridement of L2 vertebra likely will need anterior approach --Patient unable to participate with PT OT, secondary to significant back pain --[facility] is [facility] :: Accepting physician Dr. Marco A Stevens for further management (7) Hypotension: Resolved Monitor (8) Atrial fibrillation with RVR: Afib RVR H/O paroxysmal A. fib Unsuccessful Cardioversion in ED. S/P RASHID with successful cardioversion RASHID: No evidence of mass or vegetation. This does not rule out endocarditis. No thrombus is detected in the left atrial appendage. The left atrium is moderately dilated. Right atrial size is normal. Left ventricle systolic function is normal. Right ventricle systolic function is normal. Amiodarone Infusion and diltiazem infusion discontinued Continue PO Amiodarone as per cardiology Appreciate cardiology input Supratherapeutic INR No active bleeding issues Monitor PT/INR: 2.8>>4.4>>3.4>>4.0 Hold Coumadin for now Amiodarone titrated to 400 mg twice daily today Plan to be transitioned to 400 mg of amiodarone daily as able (9) Supratherapeutic INR: INR 8.7>>4.4>>4.0 Elevated INR secondary to warfarin therapy. 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 Pharmacy for glycemic management consulted (13) Hypothyroidism: Continue levothyroxine (14) Morbid obesity: BMI 57.7 (15) Venous ulcers of both lower extremities: Continue Wound Care (16) COVID-19 ruled out: SARS-CoV-2 PCR negative. (17) DVT prophylaxis: Held warfarin Supratherapeutic INR Code Status Full Code (18) Discharge planning issues: Transfer to [facility] :: Accepting physician Dr. Marco A Stevens Internal Medicine follow-up with Dr. Whitmore. Cardiology follow-up with Dr. Foster. Total Time Total Time Spent Total Time Spent (In Minutes): 47 minutes Total Time Includes: Examination of the Patient, Discharge Planning, Medication Reconciliation, Communication With Other Providers and Other Discharge Plan Discharge Items Patient Disposition: Transfer Acute Care Hospital Reason For Visit: BACK PAIN, AFIB w/RVR s/p cardioversion Discharge Diagnosis: Severe sepsis A. fib RVR Group B beta strep bacteremia L2 osteomyelitis, multifocal lumbar stenosis, discitis Abdominal wall cellulitis E. coli UTI Supratherapeutic INR Venous stasis ulcers Hypomagnesemia Activity: Per Instructions section Exercise/Sports: Wait until after follow-up appointment Non-emergency contact: Primary Care Provider, Surgeon and Broadcast Technician Call non-emergency contact if: you have any medication questions, your symptoms worsen, your pain is not controlled, your pain is worsening, your pain is unusual for you, you have a fever, your wound has increased redness, your wound has increased drainage and your wound pain has increased Follow-up/Referrals: Micah Whitmore MD [Primary Care Provider] - Diet: Carb Consistent or DM2 and Heart Healthy Addtl Attending Provider Instructions: Follow-up with Dr. Marco A Stevens at [facility] for further management. Follow-up with your market research assistant Dr. Lino upon discharge from the hospital Follow-up with your orthopedic surgeon as advised Follow-up with infectious disease Dr.Carlos Maryam Garcia as advised Your Coumadin is currently on hold secondary to supratherapeutic INR. Seek immediate medical attention if your symptoms reoccur or worsen Pending Studies at Discharge: Yes Studies:: Blood Cultures Stand-Alone Forms: [facility] Skilled Items Patient informed of condition?: Yes DNR: No Discharge Level of Care: Other Communicable Disease: No Discharge Prognosis: Stable Lines: Peripheral IV Urinary Catheter: No Medications and DC Order Prescriptions: New metoprolol tartrate 50 mg Tablet 50 mg PO BID Qty: 0 RF: 0 oxycodone 5 mg Tablet 5 - 10 mg PO Q4 PRNQty: 0 RF: 0 amiodarone 200 mg Tablet 400 mg PO BIDM Qty: 0 RF: 0 Continued allopurinol 100 mg tablet 200 mg PO HS RF: 0 aspirin 81 mg tablet,chewable 81 mg PO HS RF: 0 bumetanide 1 mg tablet 1 mg PO QAM RF: 0 cholecalciferol (vitamin D3) 1,000 unit capsule 2,000 units PO QAM RF: 0 hydralazine 10 mg tablet 10 mg PO TID RF: 0 lisinopril 40 mg tablet 40 mg PO HS RF: 0 multivitamin [Multiple Vitamins] tablet 1 tab PO HS RF: 0 omeprazole 20 mg capsule,delayed release(DR/EC) 20 mg PO QAM RF: 0 spironolactone 25 mg tablet 25 mg PO QAM RF: 0 tramadol 50 mg tablet 50 mg PO QID PRN (Reason: pain) RF: 0 warfarin 7.5 mg tablet 7.5 mg PO SUTUWETHFRSA RF: 0 levothyroxine 50 mcg capsule 50 mcg PO QAM RF: 0 metformin 500 mg tablet 2,000 mg PO HS RF: 0 repaglinide 0.5 mg Tablet 0.5 mg PO AC RF: 0 amlodipine 10 mg Tablet 10 mg PO QAM RF: 0 warfarin 5 mg Tablet 10 mg PO MO RF: 0 rosuvastatin [Crestor] 10 mg Tablet 10 mg PO HS RF: 0 magnesium oxide 400 mg magnesium Capsule 400 mg PO MOWEFR RF: 0 Discontinued ibuprofen 400 mg tablet 400 mg PO BID RF: 0 metoprolol tartrate 100 mg tablet 100 mg PO BID RF: 0 Discharge Orders: Discharge Order (Routine); Ordered 02/09/20 Ordered By: Skinny Barboza/Other Patient Handouts: Managing Type 2 Diabetes, Managing Diabetes: The A1C Test Admission Data Admit Date/Time: 02/03/20 12:38 Attending Provider: Skinny Kapoor Admit Provider: Lon Tadeo Primary Care Provider: Micah Whitmore Other Providers: Lon Tadeo ; Ritesh Lino ; Elías Do ; [facility] ; Manjit Choi ; Ian Ambrocio ; Alley aBrraza ; Sebastián Ordoñez I. ; Brian Irby II ; Akanksha Yu ; Florentin Mitchell ; Suhail Davenport ; [facility] ; [facility] [place] ; Naomi Sherman
--- NOTE | 2020-02-09 13:49 | Pharmacy Report ---
Pharmacy Glycemic Short Note 2 - Date of Service February 09, 2020 - Glycemic Short BSG Results (Last 24 hours): 02/08/20 02/08/20 02/09/20 16:23 20:55 07:22 Glucose 142 H POC Glucose 229 H 143 H 02/09/20 02/09/20 07:36 11:51 Glucose POC Glucose 190 H 172 H OUTPATIENT ANTIDIABETIC REGIMEN: * metformin 2,000 mg HS, repaglinide 0.5 mg AC ASSESSMENT: 02/08 * Pt received 76 units of insulin yesterday: 38 units of basal and 38 units of correctional/prandial * Will continue current regimen, prandial BSG improved with tightened carb ratio 02/07 * pt received 73 units of insulin yesterday, 35 of basal, 38 of correctional/prandial * Fasting BSG improved with resumed higher lantus dosing, will continue * Prandial BSGs continue to be elevated, will tighten carb ratio with dinner 02/06 * pt received 60 units of insulin yesterday, 32 of basal, 28 of prandial/correctional * Fasting BSG elevated this morning, could be d/t reduced lantus given for anticipated NPO status * Diet ordered with lunch, will resume higher lantus dose this evening * BSGs did trend up last night, tightened carb ratio this morning but yet to see any effect from this as pt has been npo 02/05 * Patient admitted 02/03/20 with AFIB w/ RVR, grp B strep bacteremia + cellulitis cultures growing multiple organisms * Patient currently on amiodarone and diltiazem infusion diluted in dextrose, and daptomycin + zosyn (also in dextrose) * Fasting BSGs have been mostly in goal range with 18 units of lantus BID- will continue- patient will be NPO at midnight, will reduce PM dose * Prandial BSGS have been elevated, tighted CF/CR last PM with improvement today- will continue this for now PLAN FOR INPATIENT GLYCEMIC CONTROL: * Hold outpatient oral diabetes medications * Basal insulin * Lantus 19 units SQ BID * Bolus insulin * NovoLog per scale ACHS or Q6hrs while NPO * Goal Range: Low 100 mg/dL - High 140 mg/dL * Correction Factor: 15 mg/dL/unit * Nutritional / Prandial insulin per carb ratio of 1 unit per 3.5 grams CHO consumed RECOMMENDATIONS FOR DISCHARGE A1c 7.6%- Plan currently for rehab. Patient will likely need to continue on insulin therapy short term as good glycemic control desirable with healing infection
--- NOTE | 2020-02-09 16:48 | Communication Note ---
Date of Service: February 09, 2020 Received call back from Dr. Stevens that spine surgeon in [facility] discussed with Dr. Choi and concluded that patient is very high risk for surgery and currently needs to complete IV antibiotic course prior to even considering any surgical intervention. Plan is to send her to rehab, complete antibiotic course and may eventually need surgery. Will cancel transfer to [facility].
[2020-02-09] MEDS: ASPIRIN 81 MG ECTAB PO SCH (20:48)
[2020-02-09] MEDS: allopurinoL 100 MG TAB PO SCH (20:49)
[2020-02-09] MEDS: MULTIVITAMIN TAB PO SCH (20:49)
[2020-02-10] MEDS: HYDROmorphone INJ 1 MG/ML SYRINGE IV PRN ×5 (05:11→17:56)
[2020-02-10] MEDS: LEVOTHYROXINE SODIUM 50 MCG TABLET PO SCH (06:03)
[2020-02-10 06:36] LABS: Hematocrit (blood only) 32.1 % (37-47); Hemoglobin 10.1 g/dL (12.0-16.0); Mean Corpuscular Hemoglobin 26.4 pg (25-34); Mean Corpuscular Hgb Conc 31.5 g/dL (32-36); Mean Platelet Volume 9.8 fL (7.4-10.4); Nucleated RBC # (auto) 0.02 K/uL (0-0); Nucleated RBC % (auto) 0.1 %; Platelet Count 387 K/uL (130-400); RDW Coefficient of Variation 16.3 % (11.5-14.5); RDW Standard Deviation 49.7 fL (36.4-46.3); Red Blood Count 3.82 M/uL (4.2-5.4); White Blood Count 15.87 K/uL (4.8-10.8)
[2020-02-10 06:48] LABS: INR 3.5 (0.9-1.1); Prothrombin Time 34.2 Seconds (9.0-12.0)
[2020-02-10 07:12] LABS: BUN Creatinine Ratio 36.2 (10-20); Calcium 9.4 mg/dl (8.5-10.1); Creatinine Clr Calc Pharmacy 70.3 ml/min; Est GFR (African American) 68.2; Est GFR (Non-African American) 58.9; Magnesium 1.9 mg/dl (1.8-2.4)
[2020-02-10] MEDS: METOPROLOL TARTRATE 50 MG TAB PO SCH ×2 (08:28→21:23)
[2020-02-10] MEDS: MAGNESIUM OXIDE 400 MG TAB PO SCH ×2 (08:28→21:24)
[2020-02-10] MEDS: BUMETANIDE 1 MG TAB PO SCH (08:28)
[2020-02-10] MEDS: amLODIPine BESYLATE 5 MG TAB PO SCH (08:28)
[2020-02-10] MEDS: lisinopril 40 MG TAB PO SCH (08:28)
[2020-02-10] MEDS: SPIRONOLACTONE 25 MG TAB PO SCH (08:28)
[2020-02-10] MEDS: CHOLECALCIFEROL 1,000 UNITS 25 MCG TAB PO SCH (08:29)
[2020-02-10] MEDS: hydrALAZINE 10 MG TAB PO SCH ×3 (08:29→21:22)
[2020-02-10] MEDS: PANTOprazole 40 MG TAB PO SCH (08:29)
[2020-02-10] MEDS: AMIODARONE 200 MG TAB PO SCH ×2 (08:30→17:03)
[2020-02-10] MEDS: cefTRIAXone SODIUM 2,000 MG in DEXTROSE 5% 50 ML IV SCH (08:38)
[2020-02-10] MEDS: oxyCODONE HCL IR 5 MG TAB (IMMEDIATE RELEASE) PO PRN ×2 (08:40→21:21)
[2020-02-10] MEDS: INSULIN ASPART 100 UNITS/ML 3 ML PEN SC SCH ×4 (09:12→21:27)
[2020-02-10] MEDS: INSULIN GLARGINE SOLOSTAR 100 UNITS/ML 3 ML PEN SC SCH ×2 (09:14→21:25)
--- NOTE | 2020-02-10 12:15 | Cardiology Progress Note ---
Date of Service February 10, 2020 Assessment & Plan (1) Discitis of lumbosacral region: (2) Morbid obesity: (3) Atrial fibrillation with RVR: Past history of paroxysmal atrial fibrillation. Presented with atrial fibrillation, RVR, in the setting of sepsis. Subsequently underwent transeso phageal echocardiogram guided direct-current cardioversion and his rates remained rapid despite medical therapy. INR is therapeutic at 3.5. Continue rhythm control strategy, amiodarone 400 mg twice daily. Metoprolol tartrate 50 mg p.o. twice daily. At time of discharge to rehab, would reduce amiodarone to 200 mg twice daily. Liver function tests performed 02/04/2020 within normal limits. TSH 02/03/2020 was normal 1.29 IU/L. Update LFTs tomorrow. Admission and Anticipated Discharge Date Admission Date: February 03, 2020 Subjective Patient without cardiac complaint. She is lying supine, ongoing back pain noted. Telemetry reveals sinus rhythm in the range of 60 to 80 bpm. Physical Exam Physical Exam: Temp Pulse Resp BP Pulse Ox 36.7 C 91 H 18 126/66 95 02/10/20 07:33 02/10/20 07:33 02/10/20 07:33 02/10/20 07:33 02/10/20 07:33 Respiratory: normal respiratory effort, lungs clear to auscultation Cardiovascular: RRR, no murmur, no edema For extremities with various ulcerations, bandaged Results & Data ([facility]) Vital Signs (Past 12 Hours) Vital Signs Temp Pulse Pulse Resp BP BP Pulse Ox 02/10/20 07:33 36.7 C 91 H 18 126/66 95 02/10/20 07:15 83 02/10/20 04:00 37.2 C 84 20 124/71 96 Laboratory Results Coagulation INR today 3.5 02/10/20 Range/Units 06:03 PT 34.2 H (9.0-12.0) Seconds CBC 02/10/20 Range/Units 06:03 WBC 15.87 H (4.8-10.8) K/uL RBC 3.82 L (4.2-5.4) M/uL Hgb 10.1 L (12.0-16.0) g/dL Hct 32.1 L (37-47) % Plt Count 387 (130-400) K/uL Comprehensive Metabolic Panel 02/10/20 Range/Units 06:03 Sodium 134 L (136-145) mmol/L Potassium 5.0 (3.5-5.1) mmol/L Chloride 102 (98-107) mmol/L Carbon Dioxide 27 (21-32) mmol/L BUN 36 H (7-18) mg/dl Creatinine 0.98 (0.6-1.2) mg/dl Glucose 124 H (70-99) mg/dl Calcium 9.4 (8.5-10.1) mg/dl Intake and Output 02/09/20 02/10/20 02/10/20 22:59 06:59 14:59 Intake Total 300 / 1180 150 / 1180 70 / 70 Output Total 900 / 1850 150 / 1850 Balance -600 / -670 0 / -670 Intake: IV 70 / 70 Rocephin 2,000 mg In D5w 50 ml 70 / 70 @ 100 mls/hr IV DAILY [facility] Rx#: [id number] Oral 300 / 1010 150 / 1010 Output: Urine Amount (Catheter) 900 / 1050 150 / 1050 External 900 / 1050 150 / 1050 # Bowel Movements Other: Weight 133.8 kg Weight Measurement Method Built in [facility]
--- NOTE | 2020-02-10 15:29 | Hospitalist Progress Note ---
Date of Service February 10, 2020 Assessment & Plan (1) Severe sepsis: Severe sepsis In setting of A. fib RVR, hypotension Possible Sources: Abdominal wall cellulitis, E.Coli UTI, B/L Leg Wound/Venous stasis ulcers Possible L2 Osteomyelitis Group B beta strep bacteremia Leg wound culture: Staph, group B strep, Proteus Urine culture: E. coli Blood culture: group B beta strep---02/03/20 Repeat blood culture from 02/07/20 : negative to date No vegetation on RASHID Lactate 1.6 Received IV fluids Zosyn, daptomycin>> Transitioned to Ceftriaxone Appreciate Ella ID Input Continue wound care Continue IV antibiotics--needs 6-week course of therapy Needs weekly CBC, CMP, CRP Needs repeat MRI of lumbar spine in 5 to 6 weeks Needs PICC line when appropriate Leukocytosis slightly worse today Afebrile today Needs follow up with ID upon discharge (2) Bacteremia: Management as above (3) UTI (urinary tract infection): Management as above (4) Infected ulcer of skin: Chronic venous stasis ulcers. Wound cultures as above Continue IV antibiotics as above (5) Cellulitis of abdominal wall: Continue IV antibiotics Continue wound care (6) Back pain: Chronic Back pain: Possible L2-L3 Osteomyelitis, spinal stenosis of lumbar spine Worsened currently --Lumbar MRI:Technically limited study. The patient was unable to complete on the images due to severe pain. Marked widening of the L2-3 disc which demonstrates markedly increased T2 signal. There is no surrounding paravertebral edema, and there are no convincing findings of adjacent vertebral body osteomyelitis. Diagnostic considerations include a pseudoarthrosis versus discitis. A pseudoarthrosis is favored. Does this patient have history of prior trauma?. Advanced multilevel spondylitic change. Multilevel spinal stenosis which is moderate to severe at the L3-4 level, and moderate at the L4-5 and L5- S1 levels. Multilevel foraminal narrowing. --ABD Arterial US: No evidence for an abdominal aortic aneurysm. --Appreciate orthopedics input --Will need debridement of lumbar spine eventually --Continue IV antibiotics-- 6 week course --Needs Repeat MRI spine in 5-6 weeks as outpatient --Pain management consulted --Patient currently not a surgical candidate as high risk for surgery --Continue PT/OT --Pain Control --Needs rehab placement (7) Hypotension: Resolved Monitor (8) Atrial fibrillation with RVR: Afib RVR H/O paroxysmal A. fib Unsuccessful Cardioversion in ED. S/P RASHID with successful cardioversion RASHID: No evidence of mass or vegetation. This does not rule out endocarditis. No thrombus is detected in the left atrial appendage. The left atrium is moderately dilated. Right atrial size is normal. Left ventricle systolic function is normal. Right ventricle systolic function is normal. Amiodarone Infusion and diltiazem infusion discontinued Continue PO Amiodarone as per cardiology Appreciate cardiology input Supratherapeutic INR No active bleeding issues Monitor PT/INR: 2.8>>4.4>>3.5 Hold Coumadin for now Amiodarone titrated to 400 mg twice daily Cardiology following In Sinus today (9) Supratherapeutic INR: INR 8.7>>4.4>>4.0>>3.5 Elevated INR secondary to warfarin therapy. 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 Pharmacy for glycemic management consulted (13) Hypothyroidism: Continue levothyroxine (14) Morbid obesity: BMI 57.7 (15) Venous ulcers of both lower extremities: Continue Wound Care (16) COVID-19 ruled out: SARS-CoV-2 PCR negative. (17) DVT prophylaxis: Held warfarin Supratherapeutic INR Code Status Full Code (18) Discharge planning issues: Transfer to [facility] :: Accepting physician Dr. Marco A Stevens Internal Medicine follow-up with Dr. Whitmore. Cardiology follow-up with Dr. Foster. Admission and Anticipated Discharge Date Admission Date: February 03, 2020 Subjective Patient is seen and examined at bedside Seem to be mostly controlled but had significant back pain during my encounter Denies any other specific complaints Remains in sinus Leukocytosis slightly worse today INR:3.5 Review of Systems Review of Systems: All systems reviewed & are unremarkable except as noted in HPI & below Physical Exam Physical Exam: Physical Exam: Vitals signs as noted above General Appearance:Morbidly Obese, no apparent distress Head: normocephalic, Atraumatic Eyes: normal inspection, EOMI Neck: supple, Trachea midline Respiratory/Chest: Normal breath sounds, basal rales Cardiovascular: Sinus, No murmur Abdomen/GI:Soft, mild tender, abdominal wound in dressing, bowel sounds present Extremities/Musculoskelatal:normal inspection, B/L LE wounds in dressing, no edema Neurologic/Psych:AAOX3, grossly no focal neurological deficits Skin: normal color, warm Results & Data Results & Data ([facility]) Vital Signs (Past 12 Hours) Vital Signs Temp Pulse Pulse Resp BP BP Pulse Ox 02/10/20 07:33 36.7 C 91 H 18 126/66 95 02/10/20 07:15 83 02/10/20 04:00 37.2 C 84 20 124/71 96 Laboratory Results Short CBC 02/10/20 Range/Units 06:03 WBC 15.87 H (4.8-10.8) K/uL Hgb 10.1 L (12.0-16.0) g/dL Hct 32.1 L (37-47) % Plt Count 387 (130-400) K/uL [facility] 02/10/20 06:03 Sodium 134 L Potassium 5.0 Chloride 102 Carbon Dioxide 27 BUN 36 H Creatinine 0.98 Glucose 124 H Calcium 9.4
[2020-02-10] MEDS: allopurinoL 100 MG TAB PO SCH (21:23)
[2020-02-10] MEDS: ASPIRIN 81 MG ECTAB PO SCH (21:24)
[2020-02-10] MEDS: MULTIVITAMIN TAB PO SCH (21:25)
[2020-02-11] MEDS: HYDROmorphone INJ 1 MG/ML SYRINGE IV PRN ×3 (02:31→17:32)
[2020-02-11] MEDS: LEVOTHYROXINE SODIUM 50 MCG TABLET PO SCH (06:21)
[2020-02-11] MEDS: oxyCODONE HCL IR 5 MG TAB (IMMEDIATE RELEASE) PO PRN ×3 (07:29→20:11)
[2020-02-11 07:36] LABS: Basophils # (auto) 0.04 K/uL (0-0.2); Basophils % (auto) 0.3 %; Eosinophils # (auto) 0.27 K/uL (0-0.5); Eosinophils % (auto) 1.9 %; Hematocrit (blood only) 30.7 % (37-47); Hemoglobin 9.9 g/dL (12.0-16.0); Immature Granulocytes # (auto) 0.55 K/uL (0.00-0.02); Immature Granulocytes % (auto) 3.9 %; Lymphocytes # (auto) 1.97 K/uL (1.2-3.4); Mean Corpuscular Hemoglobin 27.3 pg (25-34); Mean Corpuscular Hgb Conc 32.2 g/dL (32-36); Mean Corpuscular Volume 84.6 fL (80-100); Mean Platelet Volume 9.6 fL (7.4-10.4); Monocytes # (auto) 0.85 K/uL (0.11-0.59); Neutrophils % (auto) 73.9 %; Platelet Count 370 K/uL (130-400); RDW Coefficient of Variation 16.4 % (11.5-14.5); RDW Standard Deviation 50.6 fL (36.4-46.3); Red Blood Count 3.63 M/uL (4.2-5.4); White Blood Count 14.08 K/uL (4.8-10.8)
[2020-02-11 08:13] LABS: Albumin Level 1.6 gm/dl (3.4-5.0); BUN Creatinine Ratio 35.3 (10-20); Bilirubin Direct 0.1 mg/dl (0-0.2); Calcium 9.4 mg/dl (8.5-10.1); Est GFR (Non-African American) 56.1
[2020-02-11 08:16] LABS: Bilirubin,Total 0.4 mg/dl (0.2-1); Total Protein 6.9 gm/dl (6.4-8.2)
[2020-02-11 08:20] LABS: INR 2.8 (0.9-1.1); Prothrombin Time 28.1 Seconds (9.0-12.0)
[2020-02-11] MEDS: cefTRIAXone SODIUM 2,000 MG in DEXTROSE 5% 50 ML IV SCH (08:58)
[2020-02-11] MEDS: AMIODARONE 200 MG TAB PO SCH ×2 (08:59→17:35)
[2020-02-11] MEDS: MAGNESIUM OXIDE 400 MG TAB PO SCH ×2 (08:59→21:31)
[2020-02-11] MEDS: METOPROLOL TARTRATE 50 MG TAB PO SCH ×2 (09:00→21:31)
[2020-02-11] MEDS: PANTOprazole 40 MG TAB PO SCH (09:00)
[2020-02-11] MEDS: lisinopril 40 MG TAB PO SCH (09:00)
[2020-02-11] MEDS: hydrALAZINE 10 MG TAB PO SCH ×3 (09:00→21:31)
[2020-02-11] MEDS: amLODIPine BESYLATE 5 MG TAB PO SCH (09:01)
[2020-02-11] MEDS: CHOLECALCIFEROL 1,000 UNITS 25 MCG TAB PO SCH (09:01)
[2020-02-11] MEDS: SPIRONOLACTONE 25 MG TAB PO SCH (09:01)
[2020-02-11] MEDS: BUMETANIDE 1 MG TAB PO SCH (09:01)
[2020-02-11] MEDS: INSULIN GLARGINE SOLOSTAR 100 UNITS/ML 3 ML PEN SC SCH ×2 (09:02→21:32)
[2020-02-11] MEDS: INSULIN ASPART 100 UNITS/ML 3 ML PEN SC SCH ×4 (09:07→21:33)
--- NOTE | 2020-02-11 11:32 | Pharmacy Report ---
Glycemic Control Progress Note - Date of Service February 11, 2020 - Scope Glycemic Pharmacist consulted for glycemic control to write orders per [facility] inpatient glycemic control protocol. - Objective Accuchecks BSG(last 24 hours):: 02/10/20 02/10/20 02/10/20 11:52 16:41 20:29 Glucose POC Glucose 164 H 150 H 183 H 02/11/20 02/11/20 07:10 08:10 Glucose 134 H POC Glucose 188 H HbA1c:: Hemoglobin A1c 7.6 % (4.5-5.6) H 02/03/20 13:57 - Recent Pertinent Medications The patient is currently receiving: * Basal insulin: Lantus 19 units every 12 hours * Correctional Insulin: Novolog Correction per scale ACHS Goal Range: Low 110 mg/dL - High 140 mg/dL Correction Factor: 12 mg/dL/unit * Prandial insulin: Per carb ratio of 1 unit per 3 grams CHO consumed - Outpatient Anti-Diabetic Meds metformin 2 gm PO HS repaglinide 0.5 mg AC - Assessment & Plan ASSESSMENT: * See progress note from 02/11/20 for more background info, in short: * Pt receiving SQ basal bolus insulin regimen for hyperglycemia secondary to baseline DM (outpatient regimen on hold). Patient currently on Rocephin. * Patient is currently receiving an average of 98 units of insulin per day * 38 units of basal insulin * 60 units of prandial/correctional insulin * BSGs ranging 146 - 183 mg/dl over the past 24hrs * Changes needed to insulin regimen: * AM Fasting BSG = 188 mg/dl. (on PRP BSG was 134 mg/dL) This is in goal range for patient based on inpatient targets and co-morbidities. Hesitated to increase basal insulin this morning due to PRP glucose. Will provide option for higher BSG this evening. * Post-prandial BSGs are in range therefore no changes needed to CF/CR. * Total daily dose = ~100 units. PLAN FOR INPATIENT GLYCEMIC CONTROL: * Continuing Lantus 19 units SQ BID (if BSG > 160 mg/dL Lantus 22 units) * Continuing correction factor of 22 mg/dl/unit * Continuing carb ratio of 1 unit per 3 grams CHO consumed * Continuing goal range of Low 110 mg/dL - High 140 mg/dL * Please note that the plan above was derived based on current level of insulin resistance and hospital stress. These recommendations are appropriate for inpatient admission only. Plan of care upon discharge will need to be reassessed to avoid potential outpatient hypo/hyperglycemia. Thank you.
--- NOTE | 2020-02-11 15:13 | Cardiology Progress Note ---
Date of Service February 11, 2020 Assessment & Plan (1) Discitis of lumbosacral region: (2) Atrial fibrillation with RVR: Patient remains in sinus rhythm status post direct-current cardioversion guided by transesophageal echocardiogram. Continue amiodarone. She does have a history of previous abnormal thyroid function testing while on amiodarone and her thyroid function test will therefore need to be followed closely. AST, ALT normal today. Coumadin remains on hold due to elevated INR, which is trended down to 2.8. Repeat INR tomorrow likely resume Coumadin. Await rehab bed. Admission and Anticipated Discharge Date Admission Date: February 03, 2020 Subjective Patient seen in follow-up. Denies complaints with the exception of ongoing low back pain. Telemetry reveals stable sinus rhythm 86 bpm. Review of Systems Review of Systems: All systems reviewed & are unremarkable except as noted in HPI & below Physical Exam Physical Exam: Temp Pulse Resp BP Pulse Ox 36.8 C 86 22 117/66 93 02/11/20 12:00 02/11/20 12:00 02/11/20 12:00 02/11/20 12:00 02/11/20 12:00 Constitutional: WD/WN, vitals as above Respiratory: normal respiratory effort, lungs clear to auscultation Cardiovascular: RRR, no murmur, no edema Lower legs with several wrapped ulcerations Gastrointestinal (Abdomen): normal bowel sounds, soft, nontender, no hepatosplenomegaly Neurologic: PERRL, EOMI, accommodation nl, no face palsy, no dysarthria Results & Data ([facility]) Vital Signs (Past 12 Hours) Vital Signs Temp Pulse Pulse Resp BP Pulse Ox 02/11/20 12:00 36.8 C 86 22 117/66 93 02/11/20 07:38 73 02/11/20 07:30 36.9 C 82 18 120/60 98 02/11/20 03:40 36.8 C 81 20 122/70 92 Laboratory Results INR today 2.8
--- NOTE | 2020-02-11 15:15 | Communication Note ---
Date of Service: February 11, 2020 Note initiated in error. Refer to progress note from earlier today.
--- NOTE | 2020-02-11 15:53 | Hospitalist Progress Note ---
Date of Service February 11, 2020 Assessment & Plan (1) Severe sepsis: Severe sepsis In setting of A. fib RVR, hypotension Possible Sources: Abdominal wall cellulitis, E.Coli UTI, B/L Leg Wound/Venous stasis ulcers Possible L2 Osteomyelitis Group B beta strep bacteremia Leg wound culture: Staph, group B strep, Proteus Urine culture: E. coli Blood culture: group B beta strep---02/03/20 Repeat blood culture from 02/07/20 : negative to date No vegetation on RASHID Lactate 1.6 Received IV fluids Zosyn, daptomycin>> Transitioned to Ceftriaxone Appreciate Ella ID Input Continue wound care Continue IV antibiotics--needs 6-week course of therapy Needs weekly CBC, CMP, CRP Needs repeat MRI of lumbar spine in 5 to 6 weeks Needs follow up with ID upon discharge PICC line placement tomorrow Continue IV antibiotics (2) Bacteremia: Management as above (3) UTI (urinary tract infection): Management as above (4) Infected ulcer of skin: Chronic venous stasis ulcers. Wound cultures as above Continue IV antibiotics as above (5) Cellulitis of abdominal wall: Continue IV antibiotics Continue wound care (6) Back pain: Chronic Back pain: Possible L2-L3 Osteomyelitis, spinal stenosis of lumbar spine Worsened currently --Lumbar MRI:Technically limited study. The patient was unable to complete on the images due to severe pain. Marked widening of the L2-3 disc which demonstrates markedly increased T2 signal. There is no surrounding paravertebral edema, and there are no convincing findings of adjacent vertebral body osteomyelitis. Diagnostic considerations include a pseudoarthrosis versus discitis. A pseudoarthrosis is favored. Does this patient have history of prior trauma?. Advanced multilevel spondylitic change. Multilevel spinal stenosis which is moderate to severe at the L3-4 level, and moderate at the L4-5 and L5- S1 levels. Multilevel foraminal narrowing. --ABD Arterial US: No evidence for an abdominal aortic aneurysm. --Appreciate orthopedics input --Will need debridement of lumbar spine eventually --Continue IV antibiotics-- 6 week course --Needs Repeat MRI spine in 5-6 weeks as outpatient --Pain management consulted --Patient currently not a surgical candidate as high risk for surgery --Continue PT/OT --Pain Control --Needs rehab placement (7) Hypotension: Resolved Monitor (8) Atrial fibrillation with RVR: Afib RVR H/O paroxysmal A. fib Unsuccessful Cardioversion in ED. S/P RASHID with successful cardioversion RASHID: No evidence of mass or vegetation. This does not rule out endocarditis. No thrombus is detected in the left atrial appendage. The left atrium is moderately dilated. Right atrial size is normal. Left ventricle systolic function is normal. Right ventricle systolic function is normal. Amiodarone Infusion and diltiazem infusion discontinued Continue PO Amiodarone as per cardiology Appreciate cardiology input Supratherapeutic INR No active bleeding issues Monitor PT/INR: 2.8>4.4>3.5>2.8 Hold Coumadin today Amiodarone titrated to 400 mg twice daily Needs close follow-up with cardiology upon discharge Plan to decrease amiodarone to 200 mg twice a day upon discharge (9) Supratherapeutic INR: INR 8.7>4.4>4.0>3.5>2.8 Elevated INR secondary to warfarin therapy. 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 Pharmacy for glycemic management consulted (13) Hypothyroidism: Continue levothyroxine (14) Morbid obesity: BMI 57.7 EDYTA CPAP Hs (15) Venous ulcers of both lower extremities: Continue Wound Care (16) COVID-19 ruled out: SARS-CoV-2 PCR negative. (17) DVT prophylaxis: Resume warfarin tmw Therapeutic INR Code Status Full Code (18) Discharge planning issues: Transfer to [facility] :: Accepting physician Dr. Marco A Stevens Internal Medicine follow-up with Dr. Whitmore. Cardiology follow-up with Dr. Foster. Admission and Anticipated Discharge Date Admission Date: February 03, 2020 Subjective Patient is seen and examined at bedside Persistent lower back pain Remains in sinus Discussed with cardiology today INR:2.8 No new complaints Review of Systems Review of Systems: All systems reviewed & are unremarkable except as noted in HPI & below Physical Exam Physical Exam: Physical Exam: Vitals signs as noted above General Appearance:Morbidly Obese, no apparent distress Head: normocephalic, Atraumatic Eyes: normal inspection, EOMI Neck: supple, Trachea midline Respiratory/Chest: Normal breath sounds, basal rales Cardiovascular: Sinus, No murmur Abdomen/GI:Soft, mild tender, abdominal wound in dressing, bowel sounds present Extremities/Musculoskelatal:normal inspection, B/L LE wounds in dressing, no edema Neurologic/Psych:AAOX3, grossly no focal neurological deficits Skin: normal color, warm Results & Data Results & Data ([facility]) Vital Signs (Past 12 Hours) Vital Signs Temp Pulse Pulse Resp BP Pulse Ox 02/11/20 12:00 36.8 C 86 22 117/66 93 02/11/20 07:38 73 02/11/20 07:30 36.9 C 82 18 120/60 98 Laboratory Results Short CBC 02/11/20 Range/Units 07:10 WBC 14.08 H (4.8-10.8) K/uL Hgb 9.9 L (12.0-16.0) g/dL Hct 30.7 L (37-47) % Plt Count 370 (130-400) K/uL [facility] 02/11/20 07:10 Sodium 136 Potassium 5.0 Chloride 101 Carbon Dioxide 28 BUN 36 H Creatinine 1.02 Glucose 134 H Calcium 9.4 Liver Function 02/11/20 Range/Units 07:10 Total Bilirubin 0.4 (0.2-1) mg/dl Direct Bilirubin 0.1 (0-0.2) mg/dl AST 27 (15-37) U/L ALT 52 (12-78) U/L Alkaline Phosphatase 229 H (45-117) U/L Albumin 1.6 L (3.4-5.0) gm/dl
[2020-02-11] MEDS ORDERED: MICONAZOLE NITRATE POWDER 43 GM EXT PRN (16:13)
[2020-02-11] MEDS: DICLOFENAC SOD 1% GEL 100 GM TUBE EXT PRN (18:31)
[2020-02-11] MEDS: allopurinoL 100 MG TAB PO SCH (21:31)
[2020-02-11] MEDS: ASPIRIN 81 MG ECTAB PO SCH (21:31)
[2020-02-11] MEDS: MULTIVITAMIN TAB PO SCH (21:32)
[2020-02-12] MEDS: HYDROmorphone INJ 1 MG/ML SYRINGE IV PRN ×4 (00:03→22:16)
[2020-02-12] MEDS: oxyCODONE HCL IR 5 MG TAB (IMMEDIATE RELEASE) PO PRN ×3 (05:53→18:15)
[2020-02-12] MEDS: LEVOTHYROXINE SODIUM 50 MCG TABLET PO SCH (05:54)
[2020-02-12] MEDS: MAGNESIUM OXIDE 400 MG TAB PO SCH ×2 (08:52→20:28)
[2020-02-12] MEDS: hydrALAZINE 10 MG TAB PO SCH ×3 (08:52→20:27)
[2020-02-12] MEDS: lisinopril 40 MG TAB PO SCH (08:53)
[2020-02-12] MEDS: amLODIPine BESYLATE 5 MG TAB PO SCH (08:53)
[2020-02-12] MEDS: SPIRONOLACTONE 25 MG TAB PO SCH (08:53)
[2020-02-12] MEDS: INSULIN GLARGINE SOLOSTAR 100 UNITS/ML 3 ML PEN SC SCH ×2 (08:53→20:31)
[2020-02-12] MEDS: BUMETANIDE 1 MG TAB PO SCH (08:53)
[2020-02-12] MEDS: METOPROLOL TARTRATE 50 MG TAB PO SCH ×2 (08:53→20:27)
[2020-02-12] MEDS: PANTOprazole 40 MG TAB PO SCH (08:53)
[2020-02-12] MEDS: AMIODARONE 200 MG TAB PO SCH ×2 (08:53→15:41)
[2020-02-12] MEDS: INSULIN ASPART 100 UNITS/ML 3 ML PEN SC SCH ×4 (08:54→20:34)
[2020-02-12 09:06] LABS: INR 2.3 (0.9-1.1); Prothrombin Time 23.1 Seconds (9.0-12.0)
[2020-02-12 09:18] LABS: BUN Creatinine Ratio 32.7 (10-20); Calcium 9.4 mg/dl (8.5-10.1); Creatinine Clr Calc Pharmacy 62.1 ml/min; Est GFR (African American) 59.3; Est GFR (Non-African American) 51.2; Potassium 5.1 mmol/L (3.5-5.1)
[2020-02-12] MEDS: cefTRIAXone SODIUM 2,000 MG in DEXTROSE 5% 50 ML IV SCH (10:47)
[2020-02-12] MEDS: CHOLECALCIFEROL 1,000 UNITS 25 MCG TAB PO SCH (10:48)
[2020-02-12] MEDS: HYDROmorphone INJ 0.5 MG/0.5 ML SYR IV PRN ×2 (13:33→15:40)
--- NOTE | 2020-02-12 14:09 | Pharmacy Report ---
Pharmacy Glycemic Short Note 2 - Date of Service February 12, 2020 - Glycemic Short BSG Results (Last 24 hours): 02/11/20 02/11/20 02/11/20 16:40 16:42 20:50 Glucose POC Glucose 62 L* 68 L* 177 H 02/12/20 02/12/20 02/12/20 00:07 07:50 08:13 Glucose 140 H POC Glucose 175 H 144 H 02/12/20 12:07 Glucose POC Glucose 256 H OUTPATIENT ANTIDIABETIC REGIMEN: * metformin 2,000 mg HS, repaglinide 0.5 mg AC ASSESSMENT: 02/11 * Pt received 107 units of insulin yesterday: 41 units of basal and 66 units of correctional/prandial * Patient with hypoglycemic event yesterday at dinner, carb ratio/correction factor subsequently loosened- will continue this today * Fasting 144 mg/dL- continue current scale 19-22 mg/dL 02/08 * Pt received 76 units of insulin yesterday: 38 units of basal and 38 units of correctional/prandial * Will continue current regimen, prandial BSG improved with tightened carb ratio 02/07 * pt received 73 units of insulin yesterday, 35 of basal, 38 of correction al/prandial * Fasting BSG improved with resumed higher lantus dosing, will continue * Prandial BSGs continue to be elevated, will tighten carb ratio with dinner 02/06 * pt received 60 units of insulin yesterday, 32 of basal, 28 of prandial/correctional * Fasting BSG elevated this morning, could be d/t reduced lantus given for anticipated NPO status * Diet ordered with lunch, will resume higher lantus dose this evening * BSGs did trend up last night, tightened carb ratio this morning but yet to see any effect from this as pt has been npo 02/05 * Patient admitted 02/03/20 with AFIB w/ RVR, grp B strep bacteremia + cellulitis cultures growing multiple organisms * Patient currently on amiodarone and diltiazem infusion diluted in dextrose, and daptomycin + zosyn (also in dextrose) * Fasting BSGs have been mostly in goal range with 18 units of lantus BID- will continue- patient will be NPO at midnight, will reduce PM dose * Prandial BSGS have been elevated, tighted CF/CR last PM with improvement today- will continue this for now PLAN FOR INPATIENT GLYCEMIC CONTROL: * Hold outpatient oral diabetes medications * Basal insulin * Lantus 19-22 units SQ BID * Bolus insulin * NovoLog per scale ACHS or Q6hrs while NPO * Goal Range: Low 110 mg/dL - High 140 mg/dL * Correction Factor: 15 mg/dL/unit * Nutritional / Prandial insulin per carb ratio of 1 unit per 4 grams CHO consumed RECOMMENDATIONS FOR DISCHARGE A1c 7.6%- Plan currently for rehab. Patient will likely need to continue on insulin therapy short term as good glycemic control desirable with healing infection
--- NOTE | 2020-02-12 15:13 | Cardiology Progress Note ---
Date of Service February 12, 2020 Assessment & Plan (1) Discitis of lumbosacral region: (2) Atrial fibrillation with RVR: INR 2.3 today. Resume Coumadin, 2.5 mg for now, had previously been on 7.5 mg alternating with 10 mg prior to hospital stay, the dose needs to be adjusted given addition of amiodarone, antibiotics. Amiodarone dose reduced to 200 mg twice daily. Stable for discharge to rehab as planned pending bed. Admission and Anticipated Discharge Date Admission Date: February 03, 2020 Subjective Patient seen in follow-up. Denies chest discomfort or shortness of breath. Telemetry reveals ongoing sinus rhythm in the 70s. She states her back pain is little better today. Physical Exam Physical Exam: Temp Pulse Resp BP Pulse Ox 36.7 C 92 H 17 101/62 91 02/12/20 11:45 02/12/20 11:45 02/12/20 11:45 02/12/20 11:45 02/12/20 11:45 Constitutional: WD/WN, vitals as above Respiratory: normal respiratory effort, lungs clear to auscultation Cardiovascular: RRR, no murmur, no edema Neurologic: PERRL, EOMI, accommodation nl, no face palsy, no dysarthria Results & Data ([facility]) Vital Signs (Past 12 Hours) Vital Signs Temp Pulse Pulse Resp BP Pulse Ox 02/12/20 11:45 36.7 C 92 H 17 101/62 91 02/12/20 08:46 36.5 C 73 18 118/72 96 02/12/20 08:00 68
[2020-02-12] MEDS: WARFARIN SOD 5 MG TAB PO SCH (15:41)
[2020-02-12] MEDS ORDERED: WARFARIN SOD 2.5 MG TAB PO SCH (16:00)
--- NOTE | 2020-02-12 16:23 | Hospitalist Progress Note ---
Date of Service February 12, 2020 Assessment & Plan (1) Severe sepsis: Severe sepsis In setting of A. fib RVR, hypotension Possible Sources: Abdominal wall cellulitis, E.Coli UTI, B/L Leg Wound/Venous stasis ulcers Possible L2 Osteomyelitis Group B beta strep bacteremia Leg wound culture: Staph, group B strep, Proteus Urine culture: E. coli Blood culture: group B beta strep---02/03/20 Repeat blood culture from 02/07/20 : negative to date No vegetation on RASHID Lactate 1.6 Received IV fluids Zosyn, daptomycin>> Transitioned to Ceftriaxone Appreciate Ella ID Input Continue wound care Continue IV antibiotics--needs 6-week course of therapy Needs weekly CBC, CMP, CRP Needs repeat MRI of lumbar spine in 5 to 6 weeks Needs follow up with ID upon discharge PICC line placed today Case management working on placement Leukocytosis trending down (2) Bacteremia: Management as above (3) UTI (urinary tract infection): Management as above (4) Infected ulcer of skin: Chronic venous stasis ulcers. Wound cultures as above Continue IV antibiotics as above (5) Cellulitis of abdominal wall: Continue IV antibiotics Continue wound care (6) Back pain: Chronic Back pain: Possible L2-L3 Osteomyelitis, spinal stenosis of lumbar spine Worsened currently --Lumbar MRI:Technically limited study. The patient was unable to complete on the images due to severe pain. Marked widening of the L2-3 disc which demonstrates markedly increased T2 signal. There is no surrounding paravertebral edema, and there are no convincing findings of adjacent vertebral body osteomyelitis. Diagnostic considerations include a pseudoarthrosis versus discitis. A pseudoarthrosis is favored. Does this patient have history of prior trauma?. Advanced multilevel spondylitic change. Multilevel spinal stenosis which is moderate to severe at the L3-4 level, and moderate at the L4-5 and L5- S1 levels. Multilevel foraminal narrowing. --ABD Arterial US: No evidence for an abdominal aortic aneurysm. --Appreciate orthopedics input --Will need debridement of lumbar spine eventually --Continue IV antibiotics-- 6 week course --Needs Repeat MRI spine in 5-6 weeks as outpatient --Pain management consulted --Patient currently not a surgical candidate as high risk for surgery --Continue PT/OT --Pain Control --Needs rehab placement --Back pain slightly better today --Participated with physical therapy today (7) Hypotension: Resolved Monitor (8) Atrial fibrillation with RVR: Afib RVR H/O paroxysmal A. fib Unsuccessful Cardioversion in ED. S/P RASHID with successful cardioversion RASHID: No evidence of mass or vegetation. This does not rule out endocarditis. No thrombus is detected in the left atrial appendage. The left atrium is moderately dilated. Right atrial size is normal. Left ventricle systolic function is normal. Right ventricle systolic function is normal. Amiodarone Infusion and diltiazem infusion discontinued Continue PO Amiodarone as per cardiology Appreciate cardiology input Supratherapeutic INR No active bleeding issues Monitor PT/INR: 2.8>4.4>3.5>2.8>2.3 Amiodarone titrated to 200 mg twice daily Needs close follow-up with cardiology upon discharge Resume Coumadin today (9) Supratherapeutic INR: INR 8.7>4.4>4.0>3.5>2.8>2.3 Elevated INR secondary to warfarin therapy. 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 Pharmacy for glycemic management consulted (13) Hypothyroidism: Continue levothyroxine (14) Morbid obesity: BMI 57.7 EDYTA CPAP Hs (15) Venous ulcers of both lower extremities: Continue Wound Care (16) COVID-19 ruled out: SARS-CoV-2 PCR negative. (17) DVT prophylaxis: Coumadin Code Status Full Code (18) Discharge planning issues: Waiting for rehab placement Internal Medicine follow-up with Dr. Whitmore. Cardiology follow-up with Dr. Foster. Admission and Anticipated Discharge Date Admission Date: February 03, 2020 Subjective Patient is seen and examined at bedside Back pain is slightly better today Participated with physical therapy today No new complaints INR:2.3 Remains in sinus PICC line was placed today Review of Systems Review of Systems: All systems reviewed & are unremarkable except as noted in HPI & below Physical Exam Physical Exam: Physical Exam: Vitals signs as noted above General Appearance:Morbidly Obese, no apparent distress Head: normocephalic, Atraumatic Eyes: normal inspection, EOMI Neck: supple, Trachea midline Respiratory/Chest: Normal breath sounds, basal rales Cardiovascular: Sinus, No murmur Abdomen/GI:Soft, non tender, +abdominal wound, bowel sounds present Extremities/Musculoskelatal:normal inspection, B/L LE wounds in dressing, no edema Neurologic/Psych:AAOX3, grossly no focal neurological deficits Skin: normal color, warm Results & Data Results & Data ([facility]) Vital Signs (Past 12 Hours) Vital Signs Temp Pulse Pulse Resp BP Pulse Ox 02/12/20 15:12 36.8 C 82 18 133/81 97 02/12/20 11:45 36.7 C 92 H 17 101/62 91 02/12/20 08:46 36.5 C 73 18 118/72 96 02/12/20 08:00 68 Laboratory Results [facility] 02/12/20 08:13 Sodium 134 L Potassium 5.1 Chloride 99 Carbon Dioxide 30 BUN 36 H Creatinine 1.10 Glucose 140 H Calcium 9.4
[2020-02-12] MEDS: allopurinoL 100 MG TAB PO SCH (20:27)
[2020-02-12] MEDS: ASPIRIN 81 MG ECTAB PO SCH (20:27)
[2020-02-12] MEDS: MULTIVITAMIN TAB PO SCH (20:28)
[2020-02-13] MEDS: HYDROmorphone INJ 1 MG/ML SYRINGE IV PRN ×4 (00:34→10:56)
[2020-02-13] MEDS: LEVOTHYROXINE SODIUM 50 MCG TABLET PO SCH (05:45)
[2020-02-13 06:39] LABS: Prothrombin Time 20.7 Seconds (9.0-12.0)
[2020-02-13 06:55] LABS: BUN Creatinine Ratio 34.3 (10-20); Calcium 9.8 mg/dl (8.5-10.1); Creatinine Clr Calc Pharmacy 58.6 ml/min; Est GFR (African American) 55.1; Est GFR (Non-African American) 47.5; Potassium 4.8 mmol/L (3.5-5.1)
[2020-02-13] MEDS: PANTOprazole 40 MG TAB PO SCH (08:21)
[2020-02-13] MEDS: MAGNESIUM OXIDE 400 MG TAB PO SCH ×2 (08:21→20:13)
[2020-02-13] MEDS: amLODIPine BESYLATE 5 MG TAB PO SCH (08:21)
[2020-02-13] MEDS: CHOLECALCIFEROL 1,000 UNITS 25 MCG TAB PO SCH (08:21)
[2020-02-13] MEDS: lisinopril 40 MG TAB PO SCH (08:21)
[2020-02-13] MEDS: cefTRIAXone SODIUM 2,000 MG in DEXTROSE 5% 50 ML IV SCH (08:21)
[2020-02-13] MEDS: METOPROLOL TARTRATE 50 MG TAB PO SCH ×2 (08:21→20:14)
[2020-02-13] MEDS: SPIRONOLACTONE 25 MG TAB PO SCH (08:21)
[2020-02-13] MEDS: hydrALAZINE 10 MG TAB PO SCH ×3 (08:21→20:13)
[2020-02-13] MEDS: BUMETANIDE 1 MG TAB PO SCH (08:21)
[2020-02-13] MEDS: AMIODARONE 200 MG TAB PO SCH ×2 (08:21→16:43)
[2020-02-13] MEDS: INSULIN GLARGINE SOLOSTAR 100 UNITS/ML 3 ML PEN SC SCH ×2 (08:22→20:14)
[2020-02-13] MEDS: INSULIN ASPART 100 UNITS/ML 3 ML PEN SC SCH ×4 (08:22→20:15)
[2020-02-13] MEDS: HYDROmorphone INJ 0.5 MG/0.5 ML SYR IV PRN ×4 (15:40→22:43)
[2020-02-13] MEDS ORDERED: WARFARIN SOD 6 MG TAB PO SCH (16:00)
[2020-02-13] MEDS: WARFARIN SOD 5 MG TAB PO SCH (16:43)
--- NOTE | 2020-02-13 17:48 | Hospitalist Progress Note ---
Date of Service February 13, 2020 Assessment & Plan (1) Severe sepsis: Severe sepsis In setting of A. fib RVR, hypotension Possible Sources: Abdominal wall cellulitis, E.Coli UTI, B/L Leg Wound/Venous stasis ulcers Possible L2 Osteomyelitis Group B beta strep bacteremia Leg wound culture: Staph, group B strep, Proteus Urine culture: E. coli Blood culture: group B beta strep---02/03/20 Repeat blood culture from 02/07/20 : negative to date No vegetation on RASHID Lactate 1.6 Received IV fluids Zosyn, daptomycin>> Transitioned to Ceftriaxone Appreciate Ella ID Input Continue wound care Continue IV antibiotics--needs 6-week course of therapy Needs weekly CBC, CMP, CRP Needs repeat MRI of lumbar spine in 5 to 6 weeks Needs follow up with ID upon discharge PICC line placed Leukocytosis trending down Continue current medications Waiting for rehab placement/insurance authorization (2) Bacteremia: Management as above (3) UTI (urinary tract infection): Management as above (4) Infected ulcer of skin: Chronic venous stasis ulcers. Wound cultures as above Continue IV antibiotics as above (5) Cellulitis of abdominal wall: Continue IV antibiotics Continue wound care (6) Back pain: Chronic Back pain: Possible L2-L3 Osteomyelitis, spinal stenosis of lumbar spine Worsened currently --Lumbar MRI:Technically limited study. The patient was unable to complete on the images due to severe pain. Marked widening of the L2-3 disc which demonstrates markedly increased T2 signal. There is no surrounding paravertebral edema, and there are no convincing findings of adjacent vertebral body osteomyelitis. Diagnostic considerations include a pseudoarthrosis versus discitis. A pseudoarthrosis is favored. Does this patient have history of prior trauma?. Advanced multilevel spondylitic change. Multilevel spinal stenosis which is moderate to severe at the L3-4 level, and moderate at the L4-5 and L5- S1 levels. Multilevel foraminal narrowing. --ABD Arterial US: No evidence for an abdominal aortic aneurysm. --Appreciate orthopedics input --Will need debridement of lumbar spine eventually --Continue IV antibiotics-- 6 week course --Needs Repeat MRI spine in 5-6 weeks as outpatient --Pain management consulted --Patient currently not a surgical candidate as high risk for surgery --Continue PT/OT --Pain Control --Waiting for Rehab placement (7) Hypotension: Resolved Monitor (8) Atrial fibrillation with RVR: Afib RVR H/O paroxysmal A. fib Unsuccessful Cardioversion in ED. S/P RASHID with successful cardioversion RASHID: No evidence of mass or vegetation. This does not rule out endocarditis. No thrombus is detected in the left atrial appendage. The left atrium is moderately dilated. Right atrial size is normal. Left ventricle systolic function is normal. Right ventricle systolic function is normal. Amiodarone Infusion and diltiazem infusion discontinued Continue PO Amiodarone as per cardiology Appreciate cardiology input Supratherapeutic INR No active bleeding issues Monitor PT/INR: 2.8>4.4>3.5>2.8>2.3>2.0 Amiodarone titrated to 200 mg twice daily Needs close follow-up with cardiology upon discharge Continue Coumadin 5mg today Transient asymptomatic 7 beats of V. tach on monitor--Update Cardiology Continue to monitor on Tele (9) Supratherapeutic INR: INR 8.7>4.4>4.0>3.5>2.8>2.3>2.0 Elevated INR secondary to warfarin therapy. 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 Pharmacy for glycemic management consulted (13) Hypothyroidism: Continue levothyroxine (14) Morbid obesity: BMI 57.7 EDYTA CPAP Hs (15) Venous ulcers of both lower extremities: Continue Wound Care (16) COVID-19 ruled out: SARS-CoV-2 PCR negative. (17) DVT prophylaxis: Coumadin Code Status Full Code (18) Discharge planning issues: Waiting for rehab placement Internal Medicine follow-up with Dr. Whitmore. Cardiology follow-up with Dr. Foster. Admission and Anticipated Discharge Date Admission Date: February 03, 2020 Subjective Patient is seen and examined at bedside Continues to complain of back pain Back pain slightly worse today after having physical therapy earlier this morning No new complaints 7 beats of Vtach on monitor, asymptomatic Denied chest pain, shortness of breath, dizziness, nausea, abdominal pain INR:2.0 Waiting for rehab placement Review of Systems Review of Systems: All systems reviewed & are unremarkable except as noted in HPI & below Physical Exam Physical Exam: Physical Exam: Vitals signs as noted above General Appearance:Morbidly Obese, no apparent distress Head: normocephalic, Atraumatic Eyes: normal inspection, EOMI Neck: supple, Trachea midline Respiratory/Chest: Normal breath sounds, basal rales Cardiovascular: Sinus, No murmur Abdomen/GI:Soft, non tender, +abdominal wound, bowel sounds present Extremities/Musculoskelatal:normal inspection, B/L LE wounds in dressing, no edema Neurologic/Psych:AAOX3, grossly no focal neurological deficits Skin: normal color, warm Results & Data Results & Data ([facility]) Vital Signs (Past 12 Hours) Vital Signs Temp Pulse Pulse Resp BP BP Pulse Ox 02/13/20 15:50 37.1 C 83 18 121/60 94 02/13/20 11:45 36.7 C 82 18 128/70 93 02/13/20 07:56 36.7 C 118 H 18 123/67 90 02/13/20 07:27 63 Laboratory Results [facility] 02/13/20 05:52 Sodium 133 L Potassium 4.8 Chloride 99 Carbon Dioxide 30 BUN 40 H Creatinine 1.17 Glucose 103 H Calcium 9.8
[2020-02-13] MEDS: allopurinoL 100 MG TAB PO SCH (20:13)
[2020-02-13] MEDS: ASPIRIN 81 MG ECTAB PO SCH (20:13)
[2020-02-13] MEDS: MULTIVITAMIN TAB PO SCH (20:13)
[2020-02-13] MEDS: ACETAMINOPHEN 325 MG TAB PO PRN (22:42)
[2020-02-14] MEDS: LEVOTHYROXINE SODIUM 50 MCG TABLET PO SCH (05:54)
[2020-02-14] MEDS: HYDROmorphone INJ 0.5 MG/0.5 ML SYR IV PRN ×2 (07:45→17:38)
[2020-02-14] MEDS: hydrALAZINE 10 MG TAB PO SCH ×3 (07:48→20:29)
[2020-02-14] MEDS: AMIODARONE 200 MG TAB PO SCH ×2 (07:49→16:58)
[2020-02-14] MEDS: amLODIPine BESYLATE 5 MG TAB PO SCH (07:49)
[2020-02-14] MEDS: METOPROLOL TARTRATE 50 MG TAB PO SCH ×2 (07:49→20:26)
[2020-02-14] MEDS: lisinopril 40 MG TAB PO SCH (07:50)
[2020-02-14] MEDS: MAGNESIUM OXIDE 400 MG TAB PO SCH ×2 (07:50→20:26)
[2020-02-14] MEDS: SPIRONOLACTONE 25 MG TAB PO SCH (07:50)
[2020-02-14] MEDS: BUMETANIDE 1 MG TAB PO SCH (07:51)
[2020-02-14] MEDS: PANTOprazole 40 MG TAB PO SCH (07:51)
[2020-02-14] MEDS: CHOLECALCIFEROL 1,000 UNITS 25 MCG TAB PO SCH (07:51)
[2020-02-14 08:27] LABS: Basophils # (auto) 0.06 K/uL (0-0.2); Basophils % (auto) 0.5 %; Eosinophils % (auto) 1.7 %; Hematocrit (blood only) 30.3 % (37-47); Hemoglobin 9.4 g/dL (12.0-16.0); Immature Granulocytes # (auto) 0.13 K/uL (0.00-0.02); Immature Granulocytes % (auto) 1.1 %; Lymphocytes # (auto) 1.72 K/uL (1.2-3.4); Lymphocytes % (auto) 14.5 %; Mean Corpuscular Hemoglobin 26.3 pg (25-34); Mean Corpuscular Volume 84.9 fL (80-100); Monocytes # (auto) 0.72 K/uL (0.11-0.59); Monocytes % (auto) 6.1 %; Neutrophils % (auto) 76.1 %; Platelet Count 470 K/uL (130-400); RDW Coefficient of Variation 15.9 % (11.5-14.5); RDW Standard Deviation 49.4 fL (36.4-46.3); Red Blood Count 3.57 M/uL (4.2-5.4); White Blood Count 11.83 K/uL (4.8-10.8)
[2020-02-14 08:35] LABS: INR 2.2 (0.9-1.1); Prothrombin Time 21.8 Seconds (9.0-12.0)
[2020-02-14] MEDS: cefTRIAXone SODIUM 2,000 MG in DEXTROSE 5% 50 ML IV SCH (09:21)
[2020-02-14] MEDS: INSULIN GLARGINE SOLOSTAR 100 UNITS/ML 3 ML PEN SC SCH ×2 (09:21→20:28)
[2020-02-14] MEDS: INSULIN ASPART 100 UNITS/ML 3 ML PEN SC SCH ×4 (09:22→20:28)
[2020-02-14] MEDS: oxyCODONE HCL IR 5 MG TAB (IMMEDIATE RELEASE) PO PRN ×4 (09:33→23:57)
[2020-02-14 09:50] LABS: BUN Creatinine Ratio 34.8 (10-20); Calcium 9.6 mg/dl (8.5-10.1); Creatinine Clr Calc Pharmacy 67.3 ml/min; Est GFR (African American) 65.8; Est GFR (Non-African American) 56.8; Magnesium 2.1 mg/dl (1.8-2.4); Potassium 4.5 mmol/L (3.5-5.1)
[2020-02-14] MEDS: DICLOFENAC SOD 1% GEL 100 GM TUBE EXT PRN ×2 (11:38→17:03)
[2020-02-14] MEDS: HYDROmorphone INJ 1 MG/ML SYRINGE IV PRN (11:39)
--- NOTE | 2020-02-14 12:11 | Cardiology Progress Note ---
Date of Service February 14, 2020 Assessment & Plan (1) Discitis of lumbosacral region: (2) Atrial fibrillation with RVR: Status post RASHID guided direct-current cardioversion earlier this admission. At that time, no findings to suggest valvular vegetation/endocarditis. INR 2.2 today. There were several brief episodes of wide-complex tachycardia noted on telemetry yesterday, for the most part, these appear to correlate with when she was performing activity, and had no associated symptoms, and may very well be artifactual. No significant arrhythmia today. EKG performed 02/09/2020 revealed sinus rhythm with sinus arrhythmia, QT interval 477 ms. She is on no medications that concern me for interaction with her amiodarone. Continue amiodarone, metoprolol, Coumadin. Admission and Anticipated Discharge Date Admission Date: February 03, 2020 Subjective Patient seen in follow-up. Denies cardiac complaints. Has ongoing back pain which perhaps is little bit worse today. She raises concerns being told that she had a fever recently, but the only objective temperature I see that was elevated was a 38.7 C dating back to 02/08/2020. Review of Systems Review of Systems: All systems reviewed & are unremarkable except as noted in HPI & below Physical Exam Physical Exam: Temp Pulse Resp BP Pulse Ox 36.9 C 80 18 119/69 94 02/14/20 11:20 02/14/20 11:20 02/14/20 11:20 02/14/20 11:20 02/14/20 11:20 Constitutional: WD/WN, vitals as above Respiratory: normal respiratory effort, lungs clear to auscultation Gastrointestinal (Abdomen): normal bowel sounds, soft, nontender, no hepatosplenomegaly Neurologic: PERRL, EOMI, accommodation nl, no face palsy, no dysarthria Results & Data ([facility]) Vital Signs (Past 12 Hours) Vital Signs Temp Pulse Pulse Resp BP BP Pulse Ox 02/14/20 11:20 36.9 C 80 18 119/69 94 02/14/20 07:42 36.7 C 86 18 136/73 95 02/14/20 07:00 83 02/14/20 04:50 74 02/14/20 03:22 36.9 C 69 16 127/74 93 Laboratory Results Coagulation 02/14/20 Range/Units 07:47 PT 21.8 H (9.0-12.0) Seconds CBC 02/14/20 Range/Units 07:47 WBC 11.83 H (4.8-10.8) K/uL RBC 3.57 L (4.2-5.4) M/uL Hgb 9.4 L (12.0-16.0) g/dL Hct 30.3 L (37-47) % Plt Count 470 H (130-400) K/uL Neut # (Auto) 9.00 H (1.4-6.5) K/uL Lymph # (Auto) 1.72 (1.2-3.4) K/uL [place] # (Auto) 0.72 H (0.11-0.59) K/uL Eos # (Auto) 0.20 (0-0.5) K/uL Baso # (Auto) 0.06 (0-0.2) K/uL Comprehensive Metabolic Panel 02/14/20 Range/Units 07:47 Sodium 137 (136-145) mmol/L Potassium 4.5 (3.5-5.1) mmol/L Chloride 103 (98-107) mmol/L Carbon Dioxide 27 (21-32) mmol/L BUN 35 H (7-18) mg/dl Creatinine 1.01 (0.6-1.2) mg/dl Glucose 129 H (70-99) mg/dl Calcium 9.6 (8.5-10.1) mg/dl Intake and Output 02/13/20 02/14/20 02/14/20 22:59 06:59 14:59 Intake Total 440 / 750 70 / Output Total / 2126 / 2126 Balance -187 / -1377 -600 / -1377 70 Intake: IV 70 / 70 Rocephin 2,000 mg In D5w 50 ml 70 / 70 @ 100 mls/hr IV DAILY [facility] Rx#: [id number] Oral 440 / 680 Output: Urine Amount (Catheter) 2124 / 2124 External 2124 / 2124 # Bowel Movements 2 / 2 Other: Other Intake Source sips # Unmeasured Voids 2 Weight 130.9 kg Weight Measurement Method Built in [facility]
--- NOTE | 2020-02-14 15:12 | Pharmacy Report ---
Pharmacy Glycemic Short Note 2 - Date of Service February 14, 2020 - Glycemic Short BSG Results (Last 24 hours): 02/13/20 02/13/20 02/14/20 16:49 20:08 07:33 Glucose POC Glucose 231 H 196 H 146 H 02/14/20 02/14/20 07:47 11:37 Glucose 129 H POC Glucose 235 H OUTPATIENT ANTIDIABETIC REGIMEN: * metformin 2,000 mg HS, repaglinide 0.5 mg AC ASSESSMENT: * Pt received total 94 units of insulin yesterday: 41 units of basal and 53 units of correctional/prandial * Fasting BSG today AM = 146. Slightly increased Lantus BID dosing. * Post-prandial BSGs have been elevated in the past 24 hrs. Novolog CF was tightened this AM. PLAN FOR INPATIENT GLYCEMIC CONTROL: * Hold outpatient oral diabetes medications * Basal insulin: increased * Lantus 22 units SQ BID * Bolus insulin: CF tightened * NovoLog per scale ACHS or Q6hrs while NPO * Goal Range: Low 110 mg/dL - High 140 mg/dL * Correction Factor: 12 mg/dL/unit * Nutritional / Prandial insulin per carb ratio of 1 unit per 4 grams CHO consumed RECOMMENDATIONS FOR DISCHARGE * A1c 7.6%- Plan currently for rehab. Patient will likely need to continue on insulin therapy short term as good glycemic control desirable with healing infection. * Recommend Lantus 15 units BID to start and with fasting blood sugar check every morning.
[2020-02-14] MEDS: WARFARIN SOD 5 MG TAB PO SCH (16:58)
[2020-02-14] MEDS: ACETAMINOPHEN 325 MG TAB PO PRN (19:22)
[2020-02-14] MEDS: ASPIRIN 81 MG ECTAB PO SCH (20:26)
[2020-02-14] MEDS: MULTIVITAMIN TAB PO SCH (20:26)
[2020-02-14] MEDS: allopurinoL 100 MG TAB PO SCH (20:27)
--- NOTE | 2020-02-14 21:00 | Hospitalist Progress Note ---
Date of Service February 14, 2020 Assessment & Plan (1) Severe sepsis: Presented with rapid AF and hypotension. (hypotension may have been secondary to rapid AF) WBC 14,100. C-reactive protein 32.7. Procalcitonin 14.23. Met criteria for severe sepsis per current CMS guidelines. Lactate 1.6. Blood cultures obtained in ED. Broad spectrum antibiotic therapy started. Received IV fluids. Blood cultures 2 / 2 grew group B beta hemolytic Strep. Considered endocarditis. TTE 02/04/20 suggested small mass on posterior mitral leaflet. RASHID 02/07/20 did not show any evidence of endocarditis. Urine culture grew E coli. Cellulitis abdominal wall- possible initial source of bacteremia. Venous stasis ulcers lower extremities. Wound cultures grew MSSA, group B beta Strep, Proteus mirabilis. Severe back pain- MRI worrisome for discitis L2/L3. Initially received vancomycin and piperacillin / tazobactam. Changed gram + coverage from vancomycin to daptomycin. Repeat blood cultures 02/06 negative. ID consulted. 6 week course of IV antibiotic therapy with ceftriaxone recommended with close follow-up. (2) Bacteremia: As noted above. (3) UTI (urinary tract infection): As noted above. (4) Infected ulcer of skin: Chronic venous stasis ulcers. Wound cultures grew MSSA, group B beta strep, Proteus mirabilis. Antibiotic management as noted above. Wound Care Nursing consulted. (5) Cellulitis of abdominal wall: As noted above. (6) Back pain: Chronic back pain, but worse. Plain films showed degenerative changes. US negative for AAA. Considered possibility of discitis / osteomyelitis in light of bacteremia. MRI worrisome for discitis L2/L3 with possible osteomyelitis L2. Ortho Spine consulted. No need for surgical intervention at this time. Would require tertiary care if indication for surgical intervention developed. Continue antibiotics as noted above. Check f/u MRI lumbar spine in about 6 weeks (or sooner if indicated). (7) Hypotension: BP's as low as 70/50 in ED. Hypotension probably secondary to rapid AF +/- sepsis. Now hemodynamically stable. (8) Atrial fibrillation with RVR: History of PAF. Presented with AF / RVR. Cardioverted in ED. Went back into AF. Amiodarone infusion initiated by Cardiology. RASHID 02/06 showed dilated LA, no thrombi; repeat cardioversion 02/06 successful. Continue amiodarone, metoprolol, warfarin. (9) Supratherapeutic INR: INR 8.7 at time of admission. Elevated INR secondary to warfarin therapy. Received vitamin K. INR this morning 2.2. (10) Hypertension: Titrate cardiovascular meds as discussed above. (11) Acute kidney injury: History of CKD III with baseline creatinine about 1. Creatinine at time of admission 2.62. SAJAN, probably secondary to sepsis. Nephrology consulted. Received IV fluids. Management of sepsis as noted. Creatinine today 1.01. Follow. 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 Usually managed with metformin. Random blood sugars as high as 243 day of admission. Hgb A1c 7.6. Pharmacy consulted for glycemic management. Lantus / NovoLog per protocol. FBS today = 146. (13) Hypothyroidism: Continue levothyroxine. (14) Morbid obesity: Wt 138 kg. BMI 57.8. Morbid obesity contributing to medical problems. Heart healthy, diabetic diet. (15) Venous ulcers of both lower extremities: Wound Care Nursing consulted. Continue local care. (16) COVID-19 ruled out: Recent upper respiratory symptoms, fever, lymphopenia raised concern about possible COVID-19. SARS-CoV-2 PCR negative. (17) DVT prophylaxis: Continue warfarin. (18) Discharge planning issues: Anticipated need for inpatient rehab. Internal Medicine follow-up with Dr. Whitmore. Cardiology follow-up with Dr. Foster. Admission and Anticipated Discharge Date Admission Date: February 03, 2020 Subjective Recheck for multiple problems. Patient seen in their room around 1000. Generally feels better. Low grade temp and sweats last night. Intermittent back pain, sometimes severe. No lower extremity weakness. Participating in PT / OT. Review of Systems: Constitutional- as noted above. Cardiac- no chest pain. Pulmonary- no cough or SOB. GI- no nausea, vomiting, diarrhea, melena, hematochezia. - no dysuria Otherwise, as noted above. Physical Exam Constitutional: + morbidly obese; no acute distress Respiratory: no respiratory distress Auscultation: lungs clear to auscultation bilaterally Cardiovascular: Rate/Rhythm: regular rhythm Heart Sounds: no gallop Vessels: + JVD Extremities: + edema (1+ pretibial); no calf tenderness Gastrointestinal (Abdomen): normal bowel sounds, soft, nontender, no hepatosplenomegaly Musculoskeletal: Extremities: no cyanosis Skin: + rash (erythema left lower abd improved; now with superficial ulcerations) and + ulcer (leg ulcers bandaged) Neurologic: strength lower extremities 4/5 prox and 5/5 distally plantar reflexes downgoing bilat Psychiatric: Orientation: alert and oriented x 3 Results & Data Results & Data ([facility]) Vital Signs (Past 12 Hours) Vital Signs Temp Pulse Pulse Resp BP BP Pulse Ox 02/14/20 20:15 37.5 C 02/14/20 19:15 37.8 C H 90 18 113/62 92 02/14/20 15:47 36.9 C 91 H 18 120/68 92 02/14/20 15:16 100 H 02/14/20 11:20 36.9 C 80 18 119/69 94 Laboratory Results Laboratory Results - last 24 hr 02/14/20 02/14/20 02/14/20 07:33 07:47 07:47 WBC 11.83 H RBC 3.57 L Hgb 9.4 L Hct 30.3 L MCV 84.9 MCH 26.3 MCHC 31.0 L RDW Std Deviation 49.4 H RDW Coeff of Yvette 15.9 H Plt Count 470 H MPV 10.0 Immature Gran % (Auto) 1.1 Neut % (Auto) 76.1 Lymph % (Auto) 14.5 [place] % (Auto) 6.1 Eos % (Auto) 1.7 Baso % (Auto) 0.5 Neut # (Auto) 9.00 H Lymph # (Auto) 1.72 [place] # (Auto) 0.72 H Eos # (Auto) 0.20 Baso # (Auto) 0.06 Immature Gran # (Auto) 0.13 H PT INR Sodium 137 Potassium 4.5 Chloride 103 Carbon Dioxide 27 Anion Gap 7.0 BUN 35 H Creatinine 1.01 Est Cr Clr Drug Dosing 67.3 Est GFR ( Amer) 65.8 Est GFR (Non-Af Amer) 56.8 BUN/Creatinine Ratio 34.8 H Glucose 129 H POC Glucose 146 H Calcium 9.6 Magnesium 2.1 02/14/20 02/14/20 02/14/20 07:47 11:37 16:41 WBC RBC Hgb Hct MCV MCH MCHC RDW Std Deviation RDW Coeff of Yvette Plt Count MPV Immature Gran % (Auto) Neut % (Auto) Lymph % (Auto) [place] % (Auto) Eos % (Auto) Baso % (Auto) Neut # (Auto) Lymph # (Auto) [place] # (Auto) Eos # (Auto) Baso # (Auto) Immature Gran # (Auto) PT 21.8 H INR 2.2 H Sodium Potassium Chloride Carbon Dioxide Anion Gap BUN Creatinine Est Cr Clr Drug Dosing Est GFR ( Amer) Est GFR (Non-Af Amer) BUN/Creatinine Ratio Glucose POC Glucose 235 H 109 H Calcium Magnesium 02/14/20 20:10 WBC RBC Hgb Hct MCV MCH MCHC RDW Std Deviation RDW Coeff of Yvette Plt Count MPV Immature Gran % (Auto) Neut % (Auto) Lymph % (Auto) [place] % (Auto) Eos % (Auto) Baso % (Auto) Neut # (Auto) Lymph # (Auto) [place] # (Auto) Eos # (Auto) Baso # (Auto) Immature Gran # (Auto) PT INR Sodium Potassium Chloride Carbon Dioxide Anion Gap BUN Creatinine Est Cr Clr Drug Dosing Est GFR ( Amer) Est GFR (Non-Af Amer) BUN/Creatinine Ratio Glucose POC Glucose 172 H Calcium Magnesium Microbiology 02/07/20 06:00 Blood Aerobic Blood Culture - Final No growth in Aerobic bottle after 5 days. 02/07/20 06:00 Blood Anaerobic Blood Culture - Final 02/07/20 06:00 Blood Aerobic Blood Culture - Final No growth in Aerobic bottle after 5 days. 02/07/20 06:00 Blood Anaerobic Blood Culture - Final 02/03/20 13:55 Blood Aerobic Blood Culture - Final Group B Beta Strep 02/03/20 13:55 Blood Anaerobic Blood Culture - Final 02/03/20 15:41 Leg,Right Gram Stain - Final 02/03/20 15:41 Leg,Right Wound Culture - Final Staphylococcus aureus Group B Beta Strep Proteus mirabilis 02/03/20 15:41 Leg,Left Gram Stain - Final 02/03/20 15:41 Leg,Left Wound Culture - Final Staphylococcus aureus Group B Beta Strep 02/03/20 13:57 Blood Aerobic Blood Culture - Final Group B Beta Strep 02/03/20 13:57 Blood Anaerobic Blood Culture - Final Group B Beta Strep 02/03/20 14:35 Urine,Clean Catch Urine Culture - Final Escherichia coli
--- NOTE | 2020-02-14 21:12 | Surgery Consultation ---
Date of Consultation February 14, 2020 Assessment & Plan (1) Cellulitis: pt is a 69 yaer-old female who has 1 week history cellulitis on LLQ, abdominal wall, and bilt lower legs, IMP: cellulitis on LLQ abdominal wall, and bilt lower legs Plan, No surgical indication now, conservative treatment, wound care nurse and wound care surgeon consult if needed. sign off today, please call with questions, Present on Admission?: Yes Supervising Physician Co-Signing Physician Notes I, Dr. Lon Tadeo, have seen and examined the patient Juanpablo Paulino and also discussed the plans with physician delivery driver assistant On Physical Exam General: s/p cardioversion in the ED, no acute distress, speaking in full sentences, obese Heart: regular rate, appears to be in sinus rhythm Lung: no crackles, no wheezing Abdomen: soft, nontender Back: no flank tenderness, ED physician delivery driver assistant that patients back pain is sacroiliac area Neuro, Extremites: able to move the upper and lower extremities Assessment and Plan -Atrial Fibrillation with Hypotension: This is a 69 year old female with recent poor appetite who reports of acute low back pain and when she was at home she reports back pain was associated with sweating and she called EMS to bring her to ED on 02/03/2020. Patient denies any feeling of cardiac or respiratory symptoms or fevers but when she was evaluated in the ED patient was found to have atrial fibrillation with rapid ventricular response and hypotension. ED provider provided direct current cardioversion and the patient returned to sinus rhythm. Patient also given IV fluids with subsequent improvements with blood pressure. Continue IV fluids and hold home dose anti-hypertensive medications and home dose diuretics for now. Check serum magnesium levels and TSH. Telemetry monitoring. Echocardiogram ordered. Discussed with cardiology Dr. Lino. -supratherapeutic INR, chronic anemia: on presentation the INR 8.7. discussed with cardiology Dr. Lino who recommended giving oral vitamin K 2.5 mg x 1 on 02/03/2020. Trend the INR. Avoid other pharmacological DVT prophylaxis due to elevated INR. Avoid NSAIDs. Monitor the CBC -venous stasis ulcers of lower extremities: wound care, wound culture. Hold off SCDs for now because of supratherapeutic INR and venous ulcers -Leukocytosis and metabolic anion gap acidosis: WBC of 14,000. Anion gap of 12. Give fluids, send blood cultures and pro-inflammatory markers, start empiric Zosyn, monitor the anion gap, check lactic acid and creatinine kinase -Acute renal failure: creatinine of 2.62 on admission. Give IV fluids, trend the renal function, KUB ordered, nephrology consult Type 2 diabetes mellitus without group home current use of insulin: hold home dose oral diabetes mellitus medications, sliding scale insulin while inpatient History of Hypothyroidism: her home medication is levoythroxine 50 mcg daily, check thyroid function tests Morbid Obesity with BMI of 57, Ambulatory dysfunction, Acute Low Back Pain: patient reports recently less ambulation at home because of back pain, X ray of spine/hip/pelvis ordered, prn pain medications, PT/OT evaluations -Full Code -agree with other assessment and plans as documented by physician delivery driver assistant -My colleague Dr. Sarabia will be the hospitalist attending starting on 02/04/2020 History of Present Illness Attending Physician: Juvenal Sarabia MD Chief Complaint: Back pain, AFib w/RVR s/p cardioversion in the ED Primary Care Provider: Micah Whitmore MD Patient is a 69 yo female with history of DM Type 2, Hypothyroidism, hyperlipidemia, Paroxysmal AFib, EDYTA on CPAP, CKD III, Pulmonary HTN, Chronic low back pain, and history of CVA who presented to the ED via EMS with a few d ays of excruciating Right lower back pain. She states that 3 weeks ago, she knew she was in AFib, but she thought it subsided on it's own. She did also have a cold at that time. The cold symptoms subsided. Over the past few days, she noted that she was back in Afib, and her back started to increase compared to baseline. She typically has low back pain for which she takes Tramadol PRN (usually twice daily), Ibuprofen, and has had injections outpatient by Dr. Cloud in the past as well. The pain that she had this morning was much worse than usual. No radiation into her legs or abdomen. She also notes that over the past few days, she has been urinating less than normal, and her appetite has been poor. She has not been drinking much at all. She did have severe sweats with her pain last night and this morning but no chills. No headache, myalgia, dysphagia, abdominal pain, N/V/D, dysuria, or leg edema. She does have chronic lower extremity discoloration and wounds on and off that will not heal. No recent issues with her lower legs out of the norm. No recent infections. She also has a very large bruise on her lower abdomen which she thinks she sustained today getting here. Upon presentation to the ED, she was noted to be hypotensive in AFib w/RVR. She was cardioverted in the ED and converted to NSR. She was also given IV fluids. On lab evaluation, her INR was noted to be supratherapeutic at 8.7WBC count elevated, creatinine 2.62. No urine sample collected yet. Slight anemia with Hgb 10.5- little lower than baseline chronic anemia. Last outpatient Echocardiogram was completed in 2018 & showed mild LVH, Grade II diastolic dysfunction, EF 55-60%. She follows with Dr. Foster for outpatient Cardiology. Her INR on 01/23/20 was 2.4 outpatient. I ( Vito Dorsey MD ) got a call for consult abdominal wound and bilt legs wound, I reviewed pt's H/P, labs, with pt, Allergies Allergy/AdvReac Type Severity Reaction Status Date / Time Penicillins Allergy Intermediate URTICARIA; Verified 02/03/20 11:07 PER PT, CAN TAKE AMOXICILLIN erythromycin base AdvReac Mild GI UPSET Verified 02/03/20 11:07 Home Medications Home Medications Medication Instructions Recorded Confirmed Type allopurinol 100 mg tablet 200 mg PO HS tab 02/15/18 02/03/20 History aspirin 81 mg chewable tablet 81 mg PO HS 02/15/18 02/03/20 History bumetanide 1 mg tablet 1 mg PO QAM 02/15/18 02/03/20 History cholecalciferol (vitamin D3) 25 2,000 units PO QAM 02/15/18 02/03/20 History mcg (1,000 unit) capsule hydralazine 10 mg tablet 10 mg PO TID 02/15/18 02/03/20 History ibuprofen 400 mg tablet 400 mg PO BID 02/15/18 02/03/20 History lisinopril 40 mg tablet 40 mg PO HS 02/15/18 02/03/20 History metoprolol tartrate 100 mg tablet 100 mg PO BID 02/15/18 02/03/20 History multivitamin 1 tab PO HS 02/15/18 02/03/20 History omeprazole 20 mg capsule,delayed 20 mg PO QAM 02/15/18 02/03/20 History release spironolactone 25 mg tablet 25 mg PO QAM 02/15/18 02/03/20 History tramadol 50 mg tablet 50 mg PO QID PRN 02/15/18 02/03/20 History warfarin 7.5 mg tablet 7.5 mg PO SUTUWETHFRSA tab 02/15/18 02/03/20 History levothyroxine 50 mcg capsule 50 mcg PO QAM cap 03/03/18 02/03/20 History metformin 500 mg tablet 2,000 mg PO HS 03/15/18 02/03/20 History amlodipine 10 mg PO QAM 02/03/20 02/03/20 History magnesium oxide 400 mg PO MOWEFR 02/03/20 02/03/20 History repaglinide 0.5 mg PO AC 02/03/20 02/03/20 History rosuvastatin [Crestor] 10 mg PO HS 02/03/20 02/03/20 History warfarin 10 mg PO MO 02/03/20 02/03/20 History Past Med/Surg History Medical History Acute CHF Anemia Atrial fibrillation with RVR CKD stage 3 secondary to diabetes Complicated UTI (urinary tract infection) Complicated UTI (urinary tract infection) CVA (cerebral vascular accident) Dizziness DM II (diabetes mellitus, type II), controlled Dyslipidemia Gastric ulcer Gastric ulcer due to Helicobacter pylori Gout H pylori ulcer H/O Moh's micrographic surgery for skin cancer H/O: upper GI bleed Heme positive stool HTN (hypertension) Hx of basal cell carcinoma Hypokalemia Hypomagnesemia Infected ulcer of skin Infected ulcer of skin Osteoarthritis Surgical History H/O basal cell carcinoma excision H/O left knee surgery H/O repair of rotator cuff History of arthroplasty of left knee History of carpal tunnel surgery History of carpal tunnel surgery Status post Mohs surgery Family History Mother Heart disease Diabetes Father Stroke Hypertension Other No pertinent family history Social History Smoking Status: Never smoker Second Hand Exposure: No; Do You Dip or Chew Tobacco: No; Tobacco Cessation Education Requested by Patient: No Hx Alcohol Use: Yes Alcohol type: wine Hx Substance Use: No Preferred Language: Australian Communication Ability: Effective Hearing Ability: Normal Kindergarten Teacher Assistant Required: No Beliefs That Will Affect Care: None marital status: / Current Living Situation: Alone current occupational status: retired Other Information That Helps Us Care for You: No Feels Safe at Home: Yes Assistive Devices: Cane, CPAP, Denture - Upper, Denture - Lower and Glasses Review of Systems Review of Systems: All systems reviewed & are unremarkable except as noted in HPI & below Allergies Allergy/AdvReac Type Severity Reaction Status Date / Time Penicillins Allergy Intermediate URTICARIA; Verified 02/03/20 11:07 PER PT, CAN TAKE AMOXICILLIN erythromycin base AdvReac Mild GI UPSET Verified 02/03/20 11:07 Home Medications Home Medications Medication Instructions Recorded Confirmed Type allopurinol 100 mg tablet 200 mg PO HS tab 02/15/18 02/03/20 History aspirin 81 mg chewable tablet 81 mg PO HS 02/15/18 02/03/20 History bumetanide 1 mg tablet 1 mg PO QAM 02/15/18 02/03/20 History cholecalciferol (vitamin D3) 25 2,000 units PO QAM 02/15/18 02/03/20 History mcg (1,000 unit) capsule hydralazine 10 mg tablet 10 mg PO TID 02/15/18 02/03/20 History ibuprofen 400 mg tablet 400 mg PO BID 02/15/18 02/03/20 History lisinopril 40 mg tablet 40 mg PO HS 02/15/18 02/03/20 History metoprolol tartrate 100 mg tablet 100 mg PO BID 02/15/18 02/03/20 History multivitamin 1 tab PO HS 02/15/18 02/03/20 History omeprazole 20 mg capsule,delayed 20 mg PO QAM 02/15/18 02/03/20 History release spironolactone 25 mg tablet 25 mg PO QAM 02/15/18 02/03/20 History tramadol 50 mg tablet 50 mg PO QID PRN 02/15/18 02/03/20 History warfarin 7.5 mg tablet 7.5 mg PO SUTUWETHFRSA tab 02/15/18 02/03/20 History levothyroxine 50 mcg capsule 50 mcg PO QAM cap 03/03/18 02/03/20 History metformin 500 mg tablet 2,000 mg PO HS 03/15/18 02/03/20 History amlodipine 10 mg PO QAM 02/03/20 02/03/20 History magnesium oxide 400 mg PO MOWEFR 02/03/20 02/03/20 History repaglinide 0.5 mg PO AC 02/03/20 02/03/20 History rosuvastatin [Crestor] 10 mg PO HS 02/03/20 02/03/20 History warfarin 10 mg PO MO 02/03/20 02/03/20 History Patient History Medical History Acute CHF Anemia Atrial fibrillation with RVR CKD stage 3 secondary to diabetes Complicated UTI (urinary tract infection) Complicated UTI (urinary tract infection) CVA (cerebral vascular accident) Diabetes mellitus type 2 with complications Dizziness DM II (diabetes mellitus, type II), controlled Dyslipidemia Gastric ulcer Gastric ulcer due to Helicobacter pylori Gout H pylori ulcer H/O Moh's micrographic surgery for skin cancer H/O: upper GI bleed Heme positive stool HTN (hypertension) Hx of basal cell carcinoma Hypertension Hypokalemia Hypomagnesemia Hypothyroidism Infected ulcer of skin Infected ulcer of skin Morbid obesity Osteoarthritis Surgical History H/O basal cell carcinoma excision H/O left knee surgery H/O repair of rotator cuff History of arthroplasty of left knee History of carpal tunnel surgery History of carpal tunnel surgery Status post Mohs surgery Family History Mother Heart disease Diabetes Father Stroke Hypertension Other No pertinent family history Social History Smoking Status: Never smoker Second Hand Exposure: No; Do You Dip or Chew Tobacco: No; Tobacco Cessation Education Requested by Patient: No Hx Alcohol Use: Yes Alcohol type: wine Hx Substance Use: No Preferred Language: [place] Communication Ability: Effective Hearing Ability: Normal Kindergarten Teacher Assistant Required: No Beliefs That Will Affect Care: None marital status: / Current Living Situation: Alone current occupational status: retired Other Information That Helps Us Care for You: No Feels Safe at Home: Yes Assistive Devices: Denture - Lower, Glasses and Walker Physical Exam Constitutional: WD/WN, vitals as above obesity Eyes: PERRL, conjunctivae normal, anicteric sclerae ENMT: external ear and nose normal, oropharynx normal Neck: trachea midline, no thyromegaly Respiratory: normal respiratory effort, lungs clear to auscultation Cardiovascular: RRR, no murmur, no edema Gastrointestinal (Abdomen): normal bowel sounds, soft, nontender, no hepatosplenomegaly some redness wound on LLQ area, no drainage, no pus Skin: bilt lower legs wound some redness, no drainage pus, Neurologic: patellar DTR's 2+ bilat, sensation intact Psychiatric: Orientation: alert and oriented x 3 Results & Data ([facility]) Vital Signs (Past 12 Hours) Vital Signs Temp Pulse Pulse Resp BP BP Pulse Ox 02/14/20 20:15 37.5 C 02/14/20 19:15 37.8 C H 90 18 113/62 92 02/14/20 15:47 36.9 C 91 H 18 120/68 92 02/14/20 15:16 100 H 02/14/20 11:20 36.9 C 80 18 119/69 94 Laboratory Results Abnormal lab results 02/14/20 02/14/20 02/14/20 Range/Units 07:33 07:47 07:47 WBC 11.83 H (4.8-10.8) K/uL RBC 3.57 L (4.2-5.4) M/uL Hgb 9.4 L (12.0-16.0) g/dL Hct 30.3 L (37-47) % MCHC 31.0 L (32-36) g/dL RDW Std Deviation 49.4 H (36.4-46.3) fL RDW Coeff of Yvette 15.9 H (11.5-14.5) % Plt Count 470 H (130-400) K/uL Neut # (Auto) 9.00 H (1.4-6.5) K/uL [place] # (Auto) 0.72 H (0.11-0.59) K/uL Immature Gran # (Auto) 0.13 H (0.00-0.02) K/uL PT (9.0-12.0) Seconds INR (0.9-1.1) BUN 35 H (7-18) mg/dl BUN/Creatinine Ratio 34.8 H (10-20) Glucose 129 H (70-99) mg/dl POC Glucose 146 H (70-99) mg/dl 02/14/20 02/14/20 02/14/20 Range/Units 07:47 11:37 16:41 WBC (4.8-10.8) K/uL RBC (4.2-5.4) M/uL Hgb (12.0-16.0) g/dL Hct (37-47) % MCHC (32-36) g/dL RDW Std Deviation (36.4-46.3) fL RDW Coeff of Yvette (11.5-14.5) % Plt Count (130-400) K/uL Neut # (Auto) (1.4-6.5) K/uL [place] # (Auto) (0.11-0.59) K/uL Immature Gran # (Auto) (0.00-0.02) K/uL PT 21.8 H (9.0-12.0) Seconds INR 2.2 H (0.9-1.1) BUN (7-18) mg/dl BUN/Creatinine Ratio (-20) Glucose (70-99) mg/dl POC Glucose 235 H 109 H (70-99) mg/dl 02/14/20 Range/Units 20:10 WBC (4.8-10.8) K/uL RBC (4.2-5.4) M/uL Hgb (12.0-16.0) g/dL Hct (37-47) % MCHC (32-36) g/dL RDW Std Deviation (36.4-46.3) fL RDW Coeff of Yvette (11.5-14.5) % Plt Count (130-400) K/uL Neut # (Auto) (1.4-6.5) K/uL [place] # (Auto) (0.11-0.59) K/uL Immature Gran # (Auto) (0.00-0.02) K/uL PT (9.0-12.0) Seconds INR (0.9-1.1) BUN (7-18) mg/dl BUN/Creatinine Ratio (-20) Glucose (70-99) mg/dl POC Glucose 172 H (70-99) mg/dl
[2020-02-15] MEDS: LEVOTHYROXINE SODIUM 50 MCG TABLET PO SCH (05:41)
[2020-02-15] MEDS: oxyCODONE HCL IR 5 MG TAB (IMMEDIATE RELEASE) PO PRN ×4 (05:41→18:41)
[2020-02-15 06:16] LABS: Basophils # (auto) 0.07 K/uL (0-0.2); Basophils % (auto) 0.7 %; Eosinophils # (auto) 0.21 K/uL (0-0.5); Eosinophils % (auto) 2.1 %; Hemoglobin 8.9 g/dL (12.0-16.0); Immature Granulocytes # (auto) 0.08 K/uL (0.00-0.02); Immature Granulocytes % (auto) 0.8 %; Lymphocytes # (auto) 2.02 K/uL (1.2-3.4); Lymphocytes % (auto) 19.8 %; Mean Corpuscular Hemoglobin 26.8 pg (25-34); Mean Corpuscular Hgb Conc 31.8 g/dL (32-36); Mean Corpuscular Volume 84.3 fL (80-100); Mean Platelet Volume 9.5 fL (7.4-10.4); Monocytes # (auto) 0.83 K/uL (0.11-0.59); Monocytes % (auto) 8.1 %; Neutrophils % (auto) 68.5 %; Platelet Count 436 K/uL (130-400); RDW Coefficient of Variation 16.2 % (11.5-14.5); RDW Standard Deviation 49.5 fL (36.4-46.3); Red Blood Count 3.32 M/uL (4.2-5.4); White Blood Count 10.21 K/uL (4.8-10.8)
[2020-02-15 06:25] LABS: INR 2.3 (0.9-1.1); Prothrombin Time 23.5 Seconds (9.0-12.0)
[2020-02-15 06:43] LABS: Alanine Aminotransferase 31 U/L (12-78); Albumin Level 1.7 gm/dl (3.4-5.0); Aspartate Aminotransferase 19 U/L (15-37); BUN Creatinine Ratio 35.1 (10-20); Bilirubin Direct < 0.1 mg/dl (0-0.2); Blood Urea Nitrogen 36 mg/dl (7-18); Calcium 9.5 mg/dl (8.5-10.1); Carbon Dioxide 32 mmol/L (21-32); Chloride 101 mmol/L (98-107); Creatinine Clr Calc Pharmacy 66.6 ml/min; Est GFR (Non-African American) 56.1; Glucose 107 mg/dl (70-99); Potassium 4.8 mmol/L (3.5-5.1); Sodium 135 mmol/L (136-145)
[2020-02-15 06:46] LABS: Albumin Globulin Ratio 0.3 (0.9-2); Alkaline Phosphatase 172 U/L (45-117); Bilirubin,Total 0.3 mg/dl (0.2-1); Globulin 5.2 gm/dl (2.5-4.0); Total Protein 6.9 gm/dl (6.4-8.2)
[2020-02-15] MEDS: METOPROLOL TARTRATE 50 MG TAB PO SCH ×2 (08:19→21:18)
[2020-02-15] MEDS: BUMETANIDE 1 MG TAB PO SCH (08:19)
[2020-02-15] MEDS: CHOLECALCIFEROL 1,000 UNITS 25 MCG TAB PO SCH (08:19)
[2020-02-15] MEDS: SPIRONOLACTONE 25 MG TAB PO SCH (08:19)
[2020-02-15] MEDS: MAGNESIUM OXIDE 400 MG TAB PO SCH ×2 (08:19→21:18)
[2020-02-15] MEDS: PANTOprazole 40 MG TAB PO SCH (08:19)
[2020-02-15] MEDS: hydrALAZINE 10 MG TAB PO SCH ×3 (08:19→21:17)
[2020-02-15] MEDS: amLODIPine BESYLATE 5 MG TAB PO SCH (08:19)
[2020-02-15] MEDS: lisinopril 40 MG TAB PO SCH (08:20)
[2020-02-15] MEDS: INSULIN GLARGINE SOLOSTAR 100 UNITS/ML 3 ML PEN SC SCH ×2 (08:20→21:12)
[2020-02-15] MEDS: AMIODARONE 200 MG TAB PO SCH ×2 (08:26→16:24)
[2020-02-15] MEDS: cefTRIAXone SODIUM 2,000 MG in DEXTROSE 5% 50 ML IV SCH (08:26)
[2020-02-15] MEDS: INSULIN ASPART 100 UNITS/ML 3 ML PEN SC SCH ×4 (08:27→21:14)
[2020-02-15] MEDS: HYDROmorphone INJ 0.5 MG/0.5 ML SYR IV PRN ×3 (12:42→21:20)
[2020-02-15] MEDS: DICLOFENAC SOD 1% GEL 100 GM TUBE EXT PRN ×2 (14:02→21:19)
[2020-02-15] MEDS: WARFARIN SOD 5 MG TAB PO SCH (16:24)
[2020-02-15] MEDS: ASPIRIN 81 MG ECTAB PO SCH (21:17)
[2020-02-15] MEDS: MULTIVITAMIN TAB PO SCH (21:19)
[2020-02-15] MEDS: allopurinoL 100 MG TAB PO SCH (21:19)
--- NOTE | 2020-02-15 21:58 | Hospitalist Progress Note ---
Date of Service February 15, 2020 Assessment & Plan (1) Severe sepsis: Presented with rapid AF and hypotension. (hypotension may have been secondary to rapid AF) WBC 14,100. C-reactive protein 32.7. Procalcitonin 14.23. Met criteria for severe sepsis per current CMS guidelines. Lactate 1.6. Blood cultures obtained in ED. Broad spectrum antibiotic therapy started. Received IV fluids. Blood cultures / 2 grew group B beta hemolytic Strep. Considered endocarditis. TTE 02/04/20 suggested small mass on posterior mitral leaflet. RASHID 02/07/20 did not show any evidence of endocarditis. Urine culture grew E coli. Cellulitis abdominal wall- possible initial source of bacteremia. Venous stasis ulcers lower extremities. Wound cultures grew MSSA, group B beta Strep, Proteus mirabilis. Severe back pain- MRI worrisome for discitis L2/L3. Initially received vancomycin and piperacillin / tazobactam. Changed gram + coverage from vancomycin to daptomycin. Repeat blood cultures 02/06 negative. ID consulted. 6 week course of IV antibiotic therapy with ceftriaxone recommended with close follow-up. Will need weekly comprehensive metabolic profile, CBC with diff, ESR, CRP. Needs f/u MRI lumbar spine ~ 03/09. (2) Bacteremia: As noted above. (3) UTI (urinary tract infection): As noted above. (4) Infected ulcer of skin: Chronic venous stasis ulcers. Wound cultures grew MSSA, group B beta strep, Proteus mirabilis. Antibiotic management as noted above. Wound Care Nursing consulted. (5) Cellulitis of abdominal wall: As noted above. (6) Back pain: Chronic back pain, but worse. Plain films showed degenerative changes. US negative for AAA. Considered possibility of discitis / osteomyelitis in light of bacteremia. MRI worrisome for discitis L2/L3 with possible osteomyelitis L2. Ortho Spine consulted. No need for surgical intervention at this time. Would require tertiary care if indication for surgical intervention developed. Continue antibiotics as noted above. Check f/u MRI lumbar spine in around 03/09 (or sooner if indicated). (7) Hypotension: BP's as low as 70/50 in ED. Hypotension probably secondary to rapid AF +/- sepsis. Now hemodynamically stable. (8) Atrial fibrillation with RVR: History of PAF. Presented with AF / RVR. Cardioverted in ED. Went back into AF. Amiodarone infusion initiated by Cardiology. RASHID 02/06 showed dilated LA, no thrombi; repeat cardioversion 02/06 successful. Continue amiodarone, metoprolol, warfarin. (9) Supratherapeutic INR: INR 8.7 at time of admission. Elevated INR secondary to warfarin therapy. Received vitamin K. INR this morning 2.3. (10) Hypertension: Titrate cardiovascular meds as discussed above. (11) Acute kidney injury: History of CKD III with baseline creatinine about 1. Creatinine at time of admission 2.62. SAJAN, probably secondary to sepsis. Nephrology consulted. Received IV fluids. Management of sepsis as noted. Creatinine today 1.02. Follow. 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 Usually managed with metformin. Random blood sugars as high as 243 day of admission. Hgb A1c 7.6. Pharmacy consulted for glycemic management. Lantus / NovoLog per protocol. FBS today = 127. Resume home regimen at time of discharge; may need insulin coverage as well. (13) Hypothyroidism: Continue levothyroxine. (14) Morbid obesity: Wt 138 kg. BMI 57.8. Morbid obesity contributing to medical problems. Heart healthy, diabetic diet. (15) Venous ulcers of both lower extremities: Wound Care Nursing consulted. Continue local care. (16) COVID-19 ruled out: Recent upper respiratory symptoms, fever, lymphopenia raised concern about possible COVID-19. SARS-CoV-2 PCR negative. (17) DVT prophylaxis: Continue warfarin. (18) Discharge planning issues: Anticipated need for inpatient rehab. Arrangements being made for transfer to [facility] in [place]. Internal Medicine follow-up with Dr. Whitmore. Cardiology follow-up with Dr. Foster. [place] follow[place] [facility] [place]icine). Ortho follow-up with Dr. Sanchez [place] [facility] [place] f/u MRI. Admission and Anticipated Discharge Date Admission Date: February 03, 2020 Subjective Recheck for multiple problems. Patient seen in their room around 1010. Generally feels better. Tmax 37.8 and sweats last night. Back pain somewhat better, but still severe with movement / activity. No lower extremity weakness. Participating in PT / OT. Review of Systems: Constitutional- as noted above. Cardiac- no chest pain. Pulmonary- no cough or SOB. GI- no nausea, vomiting, diarrhea, melena, hematochezia. - no dysuria Otherwise, as noted above. Physical Exam Constitutional: + morbidly obese; no acute distress Respiratory: no respiratory distress Auscultation: lungs clear to auscultation bilaterally Cardiovascular: Rate/Rhythm: regular rhythm Heart Sounds: no gallop Vessels: + JVD Extremities: + edema (1+ pretibial); no calf tenderness Gastrointestinal (Abdomen): normal bowel sounds, soft, nontender, no hepatosplenomegaly Musculoskeletal: Extremities: no cyanosis Skin: + ulcer (leg ulcers bandaged) Psychiatric: Orientation: alert and oriented x 3 Results & Data Results & Data ([facility]) Vital Signs (Past 12 Hours) Vital Signs Temp Pulse Pulse Resp BP Pulse Ox 02/15/20 19:42 36.9 C 83 18 117/54 L 92 02/15/20 15:41 36.8 C 80 18 109/57 L 91 02/15/20 15:36 76 02/15/20 11:00 37.2 C 76 20 119/64 95 Laboratory Results Laboratory Results - last 24 hr 02/15/20 02/15/20 02/15/20 05:42 05:42 05:42 WBC 10.21 RBC 3.32 L Hgb 8.9 L Hct 28.0 L MCV 84.3 MCH 26.8 MCHC 31.8 L RDW Std Deviation 49.5 H RDW Coeff of Yvette 16.2 H Plt Count 436 H MPV 9.5 Immature Gran % (Auto) 0.8 Neut % (Auto) 68.5 Lymph % (Auto) 19.8 [place] % (Auto) 8.1 Eos % (Auto) 2.1 Baso % (Auto) 0.7 Neut # (Auto) 7.00 H Lymph # (Auto) 2.02 [place] # (Auto) 0.83 H Eos # (Auto) 0.21 Baso # (Auto) 0.07 Immature Gran # (Auto) 0.08 H ESR 85 H PT INR Sodium 135 L Potassium 4.8 Chloride 101 Carbon Dioxide 32 Anion Gap 2.0 L BUN 36 H Creatinine 1.02 Est Cr Clr Drug Dosing 66.6 Est GFR ( Amer) 65.0 Est GFR (Non-Af Amer) 56.1 BUN/Creatinine Ratio 35.1 H Glucose 107 H POC Glucose Calcium 9.5 Total Bilirubin 0.3 Direct Bilirubin < 0.1 AST 19 ALT 31 Alkaline Phosphatase 172 H C-Reactive Protein 10.50 H Total Protein 6.9 Albumin 1.7 L Globulin 5.2 H Albumin/Globulin Ratio 0.3 L 02/15/20 02/15/20 02/15/20 05:42 07:30 11:53 WBC RBC Hgb Hct MCV MCH MCHC RDW Std Deviation RDW Coeff of Yvette Plt Count MPV Immature Gran % (Auto) Neut % (Auto) Lymph % (Auto) [place] % (Auto) Eos % (Auto) Baso % (Auto) Neut # (Auto) Lymph # (Auto) [place] # (Auto) Eos # (Auto) Baso # (Auto) Immature Gran # (Auto) ESR PT 23.5 H INR 2.3 H Sodium Potassium Chloride Carbon Dioxide Anion Gap BUN Creatinine Est Cr Clr Drug Dosing Est GFR ( Amer) Est GFR (Non-Af Amer) BUN/Creatinine Ratio Glucose POC Glucose 127 H 195 H Calcium Total Bilirubin Direct Bilirubin AST ALT Alkaline Phosphatase C-Reactive Protein Total Protein Albumin Globulin Albumin/Globulin Ratio 02/15/20 02/15/20 16:34 20:12 WBC RBC Hgb Hct MCV MCH MCHC RDW Std Deviation RDW Coeff of Yvette Plt Count MPV Immature Gran % (Auto) Neut % (Auto) Lymph % (Auto) [place] % (Auto) Eos % (Auto) Baso % (Auto) Neut # (Auto) Lymph # (Auto) [place] # (Auto) Eos # (Auto) Baso # (Auto) Immature Gran # (Auto) ESR PT INR Sodium Potassium Chloride Carbon Dioxide Anion Gap BUN Creatinine Est Cr Clr Drug Dosing Est GFR ( Amer) Est GFR (Non-Af Amer) BUN/Creatinine Ratio Glucose POC Glucose 223 H 153 H Calcium Total Bilirubin Direct Bilirubin AST ALT Alkaline Phosphatase C-Reactive Protein Total Protein Albumin Globulin Albumin/Globulin Ratio
[2020-02-16] MEDS: oxyCODONE HCL IR 5 MG TAB (IMMEDIATE RELEASE) PO PRN ×2 (03:46→10:55)
[2020-02-16] MEDS: HYDROmorphone INJ 0.5 MG/0.5 ML SYR IV PRN ×2 (06:09→08:42)
[2020-02-16] MEDS: LEVOTHYROXINE SODIUM 50 MCG TABLET PO SCH (06:09)
--- NOTE | 2020-02-16 08:21 | Hospitalist Progress Note ---
Date of Service February 16, 2020 Assessment & Plan (1) Severe sepsis: Presented with rapid AF and hypotension. (hypotension may have been secondary to rapid AF) WBC 14,100. C-reactive protein 32.7. Procalcitonin 14.23. Met criteria for severe sepsis per current CMS guidelines. Lactate 1.6. Blood cultures obtained in ED. Received broad spectrum antibiotic therapy. Received IV fluids. Blood cultures 2 / 2 grew group B beta hemolytic Strep. Considered endocarditis. TTE 02/04/20 suggested small mass on posterior mitral leaflet. RASHID 02/07/20 did not show any evidence of endocarditis. Urine culture grew E coli. Cellulitis abdominal wall- possible initial source of bacteremia. Venous stasis ulcers lower extremities. Wound cultures grew MSSA, group B beta Strep, Proteus mirabilis. Severe back pain- MRI worrisome for discitis L2/L3. Initially received vancomycin and piperacillin / tazobactam. Changed gram + coverage from vancomycin to daptomycin. Repeat blood cultures 02/06 negative. ID consulted. 6 week course of IV antibiotic therapy with ceftriaxone recommended with close follow-up. Tentative stop date for ceftriaxone will be 03/16- check with ID before stopping. PICC line placed. Remove after completion of IV therapy. Will need weekly comprehensive metabolic profile, CBC with diff, ESR, CRP. Needs f/u MRI lumbar spine ~ 03/09 to reassess suspected discitis. (2) Bacteremia: As noted above. (3) UTI (urinary tract infection): As noted above. (4) Infected ulcer of skin: Chronic venous stasis ulcers. Wound cultures grew MSSA, group B beta strep, Proteus mirabilis. Antibiotic management as noted above. Wound Care Nursing consulted. (5) Cellulitis of abdominal wall: As noted above. Continue local care for superficial ulcerations. (6) Back pain: Chronic back pain, but worse. Plain films showed degenerative changes. US negative for AAA. Considered possibility of discitis / osteomyelitis in light of bacteremia. MRI worrisome for discitis L2/L3 with possible osteomyelitis L2. Ortho Spine consulted. No need for surgical intervention at this time. Would require tertiary care if indication for surgical intervention developed. Continue antibiotics as noted above. Check f/u MRI lumbar spine in around 03/09 (or sooner if indicated). (7) Hypotension: BP's as low as 70/50 in ED. Hypotension probably secondary to rapid AF +/- sepsis. Now hemodynamically stable. (8) Atrial fibrillation with RVR: History of PAF. Presented with AF / RVR. Cardioverted in ED. Went back into AF. Amiodarone infusion started and then transitioned to oral therapy. RASHID 02/06 showed dilated LA, no thrombi; repeat cardioversion 02/06 successful. Continue amiodarone 200 mg BID, metoprolol, warfarin. (9) Supratherapeutic INR: INR 8.7 at time of admission. Elevated INR secondary to warfarin therapy. Received vitamin K. INR 02/14 = 2.3. (10) Hypertension: Titrate cardiovascular meds as discussed above. (11) Acute kidney injury: History of CKD III with baseline creatinine about 1. Creatinine at time of admission 2.62. SAJAN, probably secondary to sepsis. Nephrology consulted. Received IV fluids. Management of sepsis as noted. Creatinine 02/14 = 1.02. Follow. 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 Usually managed with metformin. Random blood sugars as high as 243 day of admission. Hgb A1c 7.6. Pharmacy consulted for glycemic management. Lantus / NovoLog per protocol. FBS today = 102. Resume home regimen at time of discharge with insulin coverage as needed. (13) Hypothyroidism: Continue levothyroxine. (14) Morbid obesity: Wt 138 kg. BMI 57.8. Morbid obesity contributing to medical problems. Heart healthy, diabetic diet. (15) Venous ulcers of both lower extremities: Wound Care Nursing consulted. Continue local care. (16) Anemia: Hgb 10.5 day of admission and gradually fell to 8.9 on 02/14. INR was elevated, but no gross GI bleeding. Anemia probably multifactorial- sepsis, multiple phlebotomies, etc. Follow H/H. Will need anemia work-up if persistent. (17) Sleep apnea: Continue CPAP. Patient using own equipment. (18) COVID-19 ruled out: Recent upper respiratory symptoms, fever, lymphopenia raised concern about possible COVID-19. SARS-CoV-2 PCR negative. (19) DVT prophylaxis: Continue warfarin. (20) Discharge planning issues: Needs inpatient rehab. Arrangements being made for transfer to [facility] in [place]. Internal Medicine follow-up with Dr. Whitmore. Cardiology follow-up with Dr. Foster. ID follow-up with Dr. Garcia at [facility] (probably via telemedicine). Ortho follow-up with Dr. Sanchez at [facility] after f/u MRI. Admission and Anticipated Discharge Date Admission Date: February 03, 2020 Subjective Recheck for multiple problems. Patient seen in their room around 0750. Better. No fever or sweats last night. No back pain at rest, but still has severe with movement / activity. No lower extremity weakness. Participating in PT / OT. Review of Systems: Constitutional- as noted above. Cardiac- no chest pain. Pulmonary- no cough or SOB. GI- no nausea, vomiting, diarrhea, melena, hematochezia. - no dysuria Otherwise, as noted above. Physical Exam Constitutional: + morbidly obese; no acute distress Respiratory: no respiratory distress Auscultation: lungs clear to auscultation bilaterally Cardiovascular: Rate/Rhythm: regular rhythm Heart Sounds: no gallop Vessels: + JVD Extremities: + edema (1+ pretibial); no calf tenderness Gastrointestinal (Abdomen): normal bowel sounds, soft, nontender, no hepatosplenomegaly Musculoskeletal: Extremities: no cyanosis Skin: + ulcer (leg ulcers bandaged) resolving cellulitis left lower abdomen with superficial ulcerations Psychiatric: Orientation: alert and oriented x 3 Results & Data Results & Data ([facility]) Vital Signs (Past 12 Hours) Vital Signs Temp Pulse Pulse Resp BP BP Pulse Ox 02/16/20 07:29 36.7 C 84 16 123/65 97 02/16/20 03:54 36.9 C 86 20 101/72 96 02/16/20 00:38 79 02/15/20 23:02 37.0 C 82 18 107/66 93 Laboratory Results Laboratory Results - last 24 hr 02/15/20 02/15/20 02/15/20 11:53 16:34 20:12 POC Glucose 195 H 223 H 153 H 02/16/20 07:51 POC Glucose 102 H
[2020-02-16] MEDS: amLODIPine BESYLATE 5 MG TAB PO SCH (08:39)
[2020-02-16] MEDS: METOPROLOL TARTRATE 50 MG TAB PO SCH (08:39)
--- NOTE | 2020-02-16 08:39 | Discharge Summary ---
Date of Service Date of Admission: 02/03/20 Date of Discharge: 02/16/20 Admission HPI Per Admitting Provider Patient is a 69 yo female with history of DM Type 2, Hypothyroidism, hyperlipidemia, Paroxysmal AFib, EDYTA on CPAP, CKD III, Pulmonary HTN, Chronic low back pain, and history of CVA who presented to the ED via EMS with a few days of excruciating Right lower back pain. She states that 3 weeks ago, she knew she was in AFib, but she thought it subsided on it's own. She did also have a cold at that time. The cold symptoms subsided. Over the past few days, she noted that she was back in Afib, and her back started to increase compared to baseline. She typically has low back pain for which she takes Tramadol PRN (usually twice daily), Ibuprofen, and has had injections outpatient by Dr. Cloud in the past as well. The pain that she had this morning was much worse than usual. No radiation into her legs or abdomen. She also notes that over the past few days, she has been urinating less than normal, and her appetite has been poor. She has not been drinking much at all. She did have severe sweats with her pain last night and this morning but no chills. No headache, myalgia, dysphagia, abdominal pain, N/V/D, dysuria, or leg edema. She does have chronic lower extremity discoloration and wounds on and off that will not heal. No recent issues with her lower legs out of the norm. No recent infections. She also has a very large bruise on her lower abdomen which she thinks she sustained today getting here. Upon presentation to the ED, she was noted to be hypotensive in AFib w/RVR. She was cardioverted in the ED and converted to NSR. She was also given IV fluids. On lab evaluation, her INR was noted to be supratherapeutic at 8.7WBC count elevated, creatinine 2.62. No urine sample collected yet. Slight anemia with Hgb 10.5- little lower than baseline chronic anemia. Last outpatient Echocardiogram was completed in 2018 & showed mild LVH, Grade II diastolic dysfunction, EF 55-60%. She follows with Dr. Foster for outpatient Cardiology. Her INR on 01/23/20 was 2.4 outpatient. Principal Diagnosis severe sepsis bacteremia - group B beta hemolytic strep cellulitis lower abdomen suspected lumbar discitis L2-L3 OTHER ACUTE / NEW DIAGNOSES atrial fibrillation with rapid ventricular response hypotension UTI E coli (present on admission) acute kidney injury supratherapeutic INR secondary to warfarin therapy Discharge Data Allergies Allergy/AdvReac Type Severity Reaction Status Date / Time Penicillins Allergy Intermediate URTICARIA; Verified 02/03/20 11:07 PER PT, CAN TAKE AMOXICILLIN erythromycin base AdvReac Mild GI UPSET Verified 02/03/20 11:07 Consultations 02/03/20 11:40 ED Decision to Admit Stat 02/03/20 12:12 Consult Cardiology Routine 02/03/20 12:18 Consult Nephrology Routine 02/03/20 12:19 Consult Case Management - Discharge Planning Routine 02/03/20 14:27 Consult Case Management - Discharge Planning Routine 02/05/20 16:12 Consult Orthopedic Surgery Routine 02/06/20 09:26 Consult Infectious Diseases Routine 02/06/20 12:01 Consult Anesthesiology Routine 02/06/20 12:03 Consult Anesthesiology Routine 02/08/20 09:28 Consult Pain Management Routine 02/09/20 12:25 Burn CD for patient Stat 02/14/20 08:58 Consult General Surgery Routine Procedures Performed Operation Date: 02/07/20 07:15 Actual Procedures p Echo Transesophageal - DO shivani Bauer Echo Color Flow - DO shivani Bauer Cardioversion - Ritesh Lino DO Ordered Studies 02/03/20 12:22 US abdominal aortic aneurysm Stat 02/05/20 09:50 MR lumbar spine wo con Urgent Hospital Course (1) Severe sepsis: Presented with rapid AF and hypotension. (hypotension may have been secondary to rapid AF) WBC 14,100. C-reactive protein 32.7. Procalcitonin 14.23. Met criteria for severe sepsis per current CMS guidelines. Lactate 1.6. Blood cultures obtained in ED. Received broad spectrum antibiotic therapy. Received IV fluids. Blood cultures 2 / 2 grew group B beta hemolytic Strep. Considered endocarditis. TTE 02/04/20 suggested small mass on posterior mitral leaflet. RASHID 02/07/20 did not show any evidence of endocarditis. Urine culture grew E coli. Cellulitis abdominal wall- possible initial source of bacteremia. Venous stasis ulcers lower extremities. Wound cultures grew MSSA, group B beta Strep, Proteus mirabilis. Severe back pain- MRI worrisome for discitis L2/L3. Initially received vancomycin and piperacillin / tazobactam. Changed gram + coverage from vancomycin to daptomycin. Repeat blood cultures 02/06 negative. ID consulted. 6 week course of IV antibiotic therapy with ceftriaxone recommended with close follow-up. Tentative stop date for ceftriaxone will be 03/16- check with ID before stopping. PICC line placed. Remove after completion of IV therapy. Will need weekly comprehensive metabolic profile, CBC with diff, ESR, CRP. Needs f/u MRI lumbar spine ~ 03/09 to reassess suspected discitis. (2) Bacteremia: As noted above. (3) UTI (urinary tract infection): As noted above. (4) Infected ulcer of skin: Chronic venous stasis ulcers. Wound cultures grew MSSA, group B beta strep, Proteus mirabilis. Antibiotic management as noted above. Wound Care Nursing consulted. (5) Cellulitis of abdominal wall: As noted above. Continue local care for superficial ulcerations. (6) Back pain: Chronic back pain, but worse. Plain films showed degenerative changes. US negative for AAA. Considered possibility of discitis / osteomyelitis in light of bacteremia. MRI worrisome for discitis L2/L3 with possible osteomyelitis L2. Ortho Spine consulted. No need for surgical intervention at this time. Would require tertiary care if indication for surgical intervention developed. Continue antibiotics as noted above. Check f/u MRI lumbar spine in around 03/09 (or sooner if indicated). (7) Hypotension: BP's as low as 70/50 in ED. Hypotension probably secondary to rapid AF +/- sepsis. Now hemodynamically stable. (8) Atrial fibrillation with RVR: History of PAF. Presented with AF / RVR. Cardioverted in ED. Went back into AF. Amiodarone infusion started and then transitioned to oral therapy. RASHID 02/06 showed dilated LA, no thrombi; repeat cardioversion 02/06 successful. Continue amiodarone 200 mg BID, metoprolol, warfarin. (9) Supratherapeutic INR: INR 8.7 at time of admission. Elevated INR secondary to warfarin therapy. Received vitamin K. INR 02/14 = 2.3. (10) Hypertension: Titrate cardiovascular meds as discussed above. (11) Acute kidney injury: History of CKD III with baseline creatinine about 1. Creatinine at time of admission 2.62. SAJAN, probably secondary to sepsis. Nephrology consulted. Received IV fluids. Management of sepsis as noted. Creatinine 02/14 = 1.02. Follow. 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 Usually managed with metformin. Random blood sugars as high as 243 day of admission. Hgb A1c 7.6. Pharmacy consulted for glycemic management. Lantus / NovoLog per protocol. FBS day of discharge = 102. Resume home regimen at time of discharge with short-term insulin coverage as needed. (13) Hypothyroidism: Continue levothyroxine. (14) Morbid obesity: Wt 138 kg. BMI 57.8. Morbid obesity contributing to medical problems. Heart healthy, diabetic diet. (15) Venous ulcers of both lower extremities: Wound Care Nursing consulted. Continue local care. (16) Anemia: Hgb 10.5 day of admission and gradually fell to 8.9 on 02/14. INR was elevated, but no gross GI bleeding. Anemia probably multifactorial- sepsis, multiple phlebotomies, etc. Follow H/H. Will need anemia work-up if persistent. (17) Sleep apnea: Continue CPAP. Patient using own equipment. (18) COVID-19 ruled out: Recent upper respiratory symptoms, fever, lymphopenia raised concern about possible COVID-19. SARS-CoV-2 PCR negative. (19) DVT prophylaxis: Continue warfarin. (20) Discharge planning issues: Needs inpatient rehab. Arrangements being made for transfer to [facility] in [place]. Internal Medicine follow-up with Dr. Whitmore. Cardiology follow-up with Dr. Foster. ID follow-up with Dr. Garcia at [facility] (probably via telemedicine). Ortho follow-up with Dr. Sanchez at [facility] after f/u MRI. Total Time Total Time Spent Total Time Spent (In Minutes): 50 Discharge Plan Discharge Items Patient Disposition: Transfer Inpatient Rehab Fac Reason For Visit: fever, atrial fibrillation, back pain Discharge Diagnosis: sepsis bacteremia- group B beta hemolytic strep back pain- suspected discitis L2-3 UTI- E coli venous stasis ulcers- MSSA, group B beta hemolytic strep, Proteus mirabilis atrial fibrillation with rapid ventricular response Condition on Discharge: Good Activity: As commented below Activity Comment: As tolerated with walker + assistance. Exercise/Sports: Wait until after follow-up appointment Non-emergency contact: Primary Care Provider, Hospitalist, Surgeon and Construction Management Assistant Call non-emergency contact if: you have any medication questions, your pain is worsening and your temperature is above 101 Follow-up/Referrals: Guillaume Foster DO [Construction Management Assistant] - Micah Whitmore MD [Primary Care Provider] - Diet: Carb Consistent or DM2 and Heart Healthy Diet Comment: vitamin K-consistent diet for warfarin therapy Addtl Attending Provider Instructions: Skin precautions. Reposition at least q 2 hours. Fall precautions. Please check INR every other day until stable, then per your protocol. Maintain INR 2-3 for atrial fibrillation. Please monitor fingerstick blood sugars AC + HS. Sliding scale for NovoLog with meals: blood sugar units NovoLog SQ < 151 none 151-200 4 units 201-250 8 units > 250 12 units Routine care of PICC line. May use for labs. Remove PICC after course of IV antibiotic therapy discontinued. CPAP at night (patient has her own equipment) Skin ulcerations lower abdomen and bilat lower extremities. Wound care as directed by Wound Care Nursing. Please check CBC with diff, comprehensive metabolic profile, CRP, ESR weekly while receiving ceftriaxone. Please send reports to: Ian Garcia MD Dept of Infectious Disease [facility] Please schedule follow-up MRI lumbar spine with and without contrast around 03/09/20. Dx: back pain, suspected discitis L2/L3. Please send reports to: (1) Pete Murrieta MD Dept of Orthopedics [facility] (2) Ian Garcia MD Dept of Infectious Disease [facility] Thank you for receiving this patient in transfer. Please call if you have any questions. Juvenal Sarabia Pending Studies at Discharge: No Stand-Alone Forms: My [facility] [employer] Skilled Items Patient informed of condition?: Yes DNR: No Discharge Level of Care: Acute rehab Communicable Disease: No Discharge Prognosis: Stable Lines: PICC Urinary Catheter: No Medications and DC Order Prescriptions: New amiodarone 200 mg Tablet 200 mg PO BIDM Qty: 60 RF: 3 Desenex 2 % Powder 1 applic EXT TID PRN (Reason: rash) 30 Days RF: 0 acetaminophen 500 mg tablet 1,000 mg PO Q8H PRN (Reason: fever or pain) Qty: 60 RF: 0 ceftriaxone 2 gram recon soln 2 g IV DAILY Qty: 30 RF: 0 insulin aspart U-100 [Novolog Flexpen U-100 Insulin] 100 unit/mL (3 mL) insulin pen See Rx Instructions .ROUTE .COMPLEX Qty: 3 RF: 0 metoprolol tartrate 50 mg Tablet 50 mg PO BID Qty: 0 RF: 0 oxycodone 5 mg Tablet See Rx Instructions .ROUTE .COMPLEX PRN (Reason: pain) Qty: 0 RF: 0 Continued allopurinol 100 mg tablet 200 mg PO HS RF: 0 aspirin 81 mg tablet,chewable 81 mg PO HS RF: 0 bumetanide 1 mg tablet 1 mg PO QAM RF: 0 cholecalciferol (vitamin D3) 1,000 unit capsule 2,000 units PO QAM RF: 0 hydralazine 10 mg tablet 10 mg PO TID RF: 0 multivitamin [Multiple Vitamins] tablet 1 tab PO HS RF: 0 omeprazole 20 mg capsule,delayed release(DR/EC) 20 mg PO QAM RF: 0 spironolactone 25 mg tablet 25 mg PO QAM RF: 0 tramadol 50 mg tablet 50 mg PO QID PRN (Reason: pain) RF: 0 levothyroxine 50 mcg capsule 50 mcg PO QAM RF: 0 repaglinide 0.5 mg Tablet 0.5 mg PO AC RF: 0 amlodipine 10 mg Tablet 10 mg PO QAM RF: 0 rosuvastatin [Crestor] 10 mg Tablet 10 mg PO HS RF: 0 magnesium oxide 400 mg magnesium Capsule 400 mg PO MOWEFR RF: 0 metformin 500 mg Tablet Extended Release 24 Hr 2,000 mg PO PM RF: 0 Changed lisinopril 40 mg tablet 40 mg PO DAILY Qty: 0 RF: 0 warfarin 5 mg Tablet See Rx Instructions .ROUTE .COMPLEX Qty: 0 RF: 0 Discontinued ibuprofen 400 mg tablet 400 mg PO BID RF: 0 metoprolol tartrate 100 mg tablet 100 mg PO BID RF: 0 Krames/Other Patient Handouts: Managing Type 2 Diabetes, Managing Diabetes: The A1C Test Admission Data Admit Date/Time: 02/03/20 12:38 Attending Provider: Juvenal Sarabia Admit Provider: Lon Tadeo Primary Care Provider: Micah Whitmore Other Providers: Suhail Davenport ; [facility] ; Lon Tadeo. ; Ritesh Lino ; Elías Do ; Manjit Choi ; Ian Ambrocio ; Alley Barraza ; Sebastián Ordoñez I. ; Brian Irby II ; Akanksha Yu ; Florentin Mitchell ; Naomi Sherman ; Skinny Kapoor ; Vito Dorsey
[2020-02-16] MEDS: SPIRONOLACTONE 25 MG TAB PO SCH (08:40)
[2020-02-16] MEDS: lisinopril 40 MG TAB PO SCH (08:40)
[2020-02-16] MEDS: PANTOprazole 40 MG TAB PO SCH (08:40)
[2020-02-16] MEDS: AMIODARONE 200 MG TAB PO SCH (08:41)
[2020-02-16] MEDS: CHOLECALCIFEROL 1,000 UNITS 25 MCG TAB PO SCH (08:41)
[2020-02-16] MEDS: BUMETANIDE 1 MG TAB PO SCH (08:41)
[2020-02-16] MEDS: MAGNESIUM OXIDE 400 MG TAB PO SCH (08:41)
[2020-02-16] MEDS: hydrALAZINE 10 MG TAB PO SCH (08:41)
[2020-02-16] MEDS: cefTRIAXone SODIUM 2,000 MG in DEXTROSE 5% 50 ML IV SCH (08:43)
[2020-02-16] MEDS: INSULIN ASPART 100 UNITS/ML 3 ML PEN SC SCH (08:49)
[2020-02-16] MEDS: INSULIN GLARGINE SOLOSTAR 100 UNITS/ML 3 ML PEN SC SCH (08:50)
[2020-02-16] MEDS ORDERED: INFLUENZA ADMINISTRATION CHARGE ONE (08:52)
[2020-02-16] MEDS ORDERED: INFLUENZA VIRUS QUAD VACCINE 0.5 ML SYR IM ONE (08:52)
--- NOTE | 2020-02-16 12:44 | Cardiology Progress Note ---
Date of Service February 16, 2020 Assessment & Plan (1) Discitis of lumbosacral region: (2) Atrial fibrillation with RVR: Patient presented with severe low back pain, sepsis with noted strep bacteremia. Atrial fibrillation with rapid ventricular response observed this hospital stay with high rates that were refractory to medications. Patient ultimately underwent transesophageal echocardiogram guided direct-current cardioversion 02/07/2020 with successful conversion to sinus rhythm. There is no evidence of left atrial appendage thrombus at the time of the study, and no evidence of valvular vegetation to suggest endocarditis. Brief episodes of wide-complex tachycardia observed yesterday while patient was being bathed, and again today. Per review of telemetry, this looks very regular, and by appearance it does not appear to be artifactual. It is difficult to determine if this is artifact related to position change as she has moved, or if she was in fact having episodes of nonsustained ventricular tachycardia in the setting of severe pain with movement. Her ejection fraction is normal. She has no risk of recent or past syncope. No lightheadedness with the events. Laboratory studies performed yesterday included potassium of 4.8, magnesium had most recently been assessed on 02/14/2020 and was within normal limits, 2.1. INR is drawn yesterday 02/15/2020 was therapeutic at 2.3. I would estimate that the patient's risk of sudden cardiac related to these short episodes is low. Would continue her current treatment with metoprolol and amiodarone for suppression of atrial fibrillation. Stable from cardiology perspective for transfer to rehab as planned. Patient to follow-up with me after her rehab course. Admission and Anticipated Discharge Date Admission Date: February 03, 2020 Subjective Patient seen in cardiology follow-up today. This morning, when she was being maneuvered in bed for bathing/changing her gown, a 7 beat run of wide-complex tachycardia was observed at 9:04 AM, followed by a 12 beat run of wide-complex tachycardia at 9:07 AM. Per my assessment an hour later, the patient states that she feels well. At the time of the telemetry event, she notes severe pain in her back with being rolled, but noted no palpitations. Review of Systems Review of Systems: All systems reviewed & are unremarkable except as noted in HPI & below Physical Exam Physical Exam: Temp Pulse Resp BP Pulse Ox 36.7 C 84 16 107/66 97 02/16/20 10:38 02/16/20 10:38 02/16/20 10:38 02/16/20 10:38 02/16/20 10:38 Constitutional: WD/WN, vitals as above Respiratory: normal respiratory effort, lungs clear to auscultation Cardiovascular: RRR, no murmur, no edema Skin: Well-healed lower extremity ulcerations, bandages changed today. Neurologic: PERRL, EOMI, accommodation nl, no face palsy, no dysarthria Results & Data ([facility]) Vital Signs (Past 12 Hours) Vital Signs Temp Pulse Pulse Resp BP BP Pulse Ox 02/16/20 10:38 36.7 C 84 16 107/66 123/65 97 02/16/20 07:30 78 02/16/20 07:29 36.7 C 84 16 123/65 97 02/16/20 03:54 36.9 C 86 20 101/72 96 02/16/20 00:38 79 Laboratory Results Intake and Output 02/15/20 02/16/20 02/16/20 22:59 06:59 14:59 Intake Total 236 / 1366 100 / 1366 70 / 70 Output Total 250 / 2050 300 / 2050 Balance -14 / -684 -200 / -684 70 / 70 Intake: IV 70 / 70 Rocephin 2,000 mg In D5w 50 ml 70 / 70 @ 100 mls/hr IV DAILY [facility] Rx#: [id number] Oral 236 / 1296 100 / 1296 Output: Urine Amount (Catheter) 250 / 0 300 / 2050 External 250 / 2050 300 / 2050 Other: # Unmeasured Voids 1 Weight 130.9 kg 130.3 kg 130.3 kg Weight Measurement Method Built in [facility] Patient Weight 02/17/20 06:59 Weight 130.3 kg
== END 2020-02-16 12:23 | DRG 872 ==
LOC: ED 09:20 → SUATTDRO 12:38 → 2E 12:38 → 2S 02-08 22:59 → 2W 02-09 10:01 → 2N 02-12 18:19

== ENCOUNTER 2020-09-11 06:01 | Observation (INO) ==
--- NOTE | 2020-09-06 08:59 | Anesthesiology Consultation ---
Date of Service September 06, 2020 Assessment & Plan (1) Encounter for pre-operative examination: Chart Review Chart Review: Acceptable Risk for Surgery and Patient NOT seen in Pre Admission Testing - Check BSG AM DOS - Check coags AM DOS Per nursing assessment 09/04/20, pt travels to [place] for medical appts (throughout August). Wears proper PPE. No known Covid positive contacts or Covid related symptoms. No known Covid infection in the past 90 days. Covid test 09/05/20= negative Pt seen by cardio 09/05/20= patient seen for preoperative cardiac evaluation prior to surgery with Dr. Thrasher. Patient scheduled for panniculectomy tentatively scheduled for 09/11/2020. Follows with cardiology due to history of paroxysmal A. fib, diastolic dysfunction, and fluid retention with lower extremity edema in the past. Patient admitted in February 2020concern of osteomyelitis with severe progressive lumbar back pain. Found to be in A. fib with RVRechocardiogram done and patient underwent cardioversion with successful mandaen of sinus rhythm. Currently on amiodarone. Ultimately recovered from osteomyelitis with long-term IV antibiotics. Has also been treated for abdominal wall cellulitishad wound VAC removed 1 week ago. Patient presents describing stable cardiac signs and symptoms. Currently in sinus rhythm today. "From a cardiac perspective, she has no acute cardiac complaints, and I think she is very well optimized. She certainly is at increased risk for perioperative cardiac complication just due to her overall comorbidities, but I think that the is surgery will help improve her overall quality of life. I had discussed her case with Dr. Thrasher and we both have concerns with regards to the risk of bleeding complication. Difficulties with regards to managing her anticoagulation include the patient's weight, renal function, and baseline anemia. She is in sinus rhythm today, and I think it is most prudent for her to hold her Coumadin as of today, 5 days prior to her surgery, and her INR come down to being normal. As noted above, her INR is already subtherapeutic. Since she is in sinus rhythm, I think her risk of embolic event is relatively low. Given difficulties with regards to dosing administration of Lovenox with regards to her weight, changes in her renal function, and clinical disposition, I think proceeding without bridge therapy is most prudent in an effort to minimize her bleeding risk. Postoperatively, would reinitiate Coumadin on postoperative day 1 and allow her INR to come up slowly. I have coordinated this with Dr. Thrasher, and I will also reset to the age-coagulation clinic." History Surgery Operation Date: 09/11/20 07:30 Proposed Procedures p Panniculectomy - Ginger Thrasher MD Height/Weight Height: 5 ft Weight: 117.934 kg Allergies Allergy/AdvReac Type Severity Reaction Status Date / Time Penicillins Allergy Intermediate URTICARIA; Verified 09/04/20 13:47 PER PT, CAN TAKE AMOXICILLIN erythromycin base AdvReac Mild GI UPSET Verified 09/04/20 13:47 Medications Home Medications Medication Instructions Recorded Confirmed Last Taken allopurinol 100 mg tablet 200 mg PO HS tab 02/15/18 09/04/20 02/02/20 aspirin 81 mg chewable tablet 81 mg PO HS 02/15/18 09/04/20 02/02/20 multivitamin 1 tab PO HS 02/15/18 09/04/20 02/02/20 omeprazole 20 mg capsule,delayed 20 mg PO QAM 02/15/18 09/04/20 02/02/20 release spironolactone 25 mg tablet 25 mg PO QAM 02/15/18 09/04/20 02/01/20 levothyroxine 50 mcg capsule 50 mcg PO QAM cap 03/03/18 09/04/20 02/02/20 magnesium oxide 400 mg PO QPM 02/03/20 09/04/20 02/02/20 repaglinide 0.5 mg PO TIDM 02/03/20 09/04/20 02/02/20 rosuvastatin [Crestor] 10 mg PO HS 02/03/20 09/04/20 02/02/20 metoprolol tartrate 50 mg PO BID #0 tab 02/09/20 09/04/20 Unknown bumetanide 1 mg tablet 0.5 - 1 mg PO QAM tab 06/20/20 09/04/20 Unknown cholecalciferol (vitamin D3) 25 1,000 unit PO QAM cap 06/20/20 09/04/20 Unknown mcg (1,000 unit) capsule metformin 500 mg tablet,extended 500 mg PO QAM tab 06/20/20 09/04/20 Unknown release 24 hr acetaminophen 1,000 mg PO TID PRN 09/04/20 09/04/20 Unknown amiodarone 200 mg PO QAM 09/04/20 09/04/20 Unknown amlodipine 5 mg PO BID 09/04/20 09/04/20 Unknown arginine (L-arginine) 500 mg PO QAM 09/04/20 09/04/20 Unknown docusate sodium [Colace] 100 mg PO TID 09/04/20 09/04/20 Unknown oxycodone 5 mg PO Q6H PRN 09/04/20 09/04/20 Unknown oxycodone 15 mg PO QAM PRN 09/04/20 09/04/20 Unknown psyllium husk [Fiber (psyllium 1.04 g PO BID 09/04/20 09/04/20 Unknown husk)] warfarin 5 mg PO UD 09/04/20 09/04/20 Unknown Past Medical History Medical History A-fib Paroxysmal, Follows with Dr. Foster Anemia CKD stage 3 secondary to diabetes CVA (cerebral vascular accident) Silent > Old infarct found on remote CT imaging (dating back to at least 2017) DM II (diabetes mellitus, type II), controlled NIDDM Dyslipidemia Gastric ulcer due to Helicobacter pylori hx Gout hx Hx of basal cell carcinoma Hx of osteomyelitis Spine (02/2020) treated at [facility] with rn long term care antibiotics and oxycodone for pain management Hypertension Hypothyroidism Morbid obesity Osteoarthritis Sleep apnea CPAP Wound of abdomen Previous wound vac/debridement > evaluated by surgeon's office 08/27/20 ([facility] [place]) noting "sizable wound of the left lower quadrant, 100% granulated, but quite deep in some areas. Some of the granulation is up to surface" without evidence of cellulitic change Past Family History Family History Mother Diabetes Heart disease Father Hypertension Stroke Other No family history of adverse response to anesthesia No pertinent family history Past Surgical History Surgical History H/O basal cell carcinoma excision H/O left knee surgery multiple knee arthroscopy on left H/O repair of rotator cuff right History of arthroplasty of left knee History of cardioversion RASHID with cardioversion (02/07/20): MAC sedation at [facility] History of carpal tunnel surgery History of esophagogastroduodenoscopy (EGD) S/P debridement multiple abdominal debridements at [facility]. 08/2020 Status post Mohs surgery Social History Smoking Status: Never smoker Do You Dip or Chew Tobacco: No Hx Alcohol Use: Yes Alcohol type: wine alcohol intake frequency: holidays/special occasions only Hx Substance Use: No substance use type: does not use Lab Results Anesthesia Preop Results Results Anesthesia Widget: WBC 8.19 K/uL (4.8-10.8) 09/05/20 Hgb 11.5 g/dL (12.0-16.0) L 09/05/20 Hct 36.0 % (37-47) L 09/05/20 Plt 277 K/uL (130-400) 09/05/20 Na 139 mmol/L (136-145) 09/05/20 K 4.4 mmol/L (3.5-5.1) 09/05/20 Cl 107 mmol/L (98-107) 09/05/20 CO2 30 mmol/L (21-32) 09/05/20 BUN 33 mg/dl (7-18) H 09/05/20 Creat 1.15 mg/dl (0.6-1.2) 09/05/20 Glucose Level 185 mg/dl (70-99) H 09/05/20 PT 12.5 Seconds (9.0-12.0) H 09/05/20 PTT 29.4 Seconds (21.0-31.0) 09/05/20 INR 1.3 (0.9-1.1) H 09/05/20 Lab Comments: Anemia chronic and stable (mildly improved from previous) Testing Laboratory Results 02/03/20= HGB A1C: 7.6 Electrocardiogram Date: 09/05/20 Findings: + SB @ (54 bpm) Left posterior fascicular block When compared to EKG from November 18, 2018no significant changes found per cardio. Chest X-Ray Date: 02/03/20 FINDINGS: The heart remains mildly enlarged. No pleural effusions. No pneumot horax. No new focal lung consolidations to suggest pneumonia. No evidence for pulmonary edema. Stable right hilar enlargement. IMPRESSION: No change compared to the prior study. No acute process within the chest. Stable cardiomegaly and right hilar enlargement. Echocardiogram Date: 02/07/20 LV Function: normal RWMA: + none Valvular Disease: + no significant valvular disease Transesophageal echocardiogram No evidence of mass or vegetation. No thrombus is detected noted in the left atrial appendage. Left atrium is moderately dilated.
[~2020-09-11 06:01] MED LIST changes: -ALLO100T PO; -BMX1 PO; -CHOL1000 PO; +CLINDAMYCIN/D5W 600 MG/54 ML BAG IV SCH; -CRD200 PO; -FRRS300 PO; -IBUP-1459 PO; +LACTATED RINGER'S 1,000 ML IV SCH; -LISI40TA PO; -LPR100 PO; -MULTTAB58 PO; -PRLSR20 PO; -REPA1TAB40 PO; -SPR25 PO; -TRAM-10 PO; -WARF-246 PO; -ZCR10 PO
[2020-09-11] MEDS ORDERED: MIDAZOLAM HCL 1 MG/ML 2ML VIAL ONE (06:28)
[2020-09-11] MEDS ORDERED: SUCCINYLCHOLINE CHLORIDE 20 MG/ML 10 ML VIAL IV ONE (06:28)
[2020-09-11] MEDS ORDERED: ONDANSETRON INJ 2 MG/ML 2 ML VIAL ONE ×2 (06:28→09:00)
[2020-09-11] MEDS ORDERED: PROPOFOL IV EMULSION 10 MG/ML 20 ML VIAL IV ONE ×3 (06:28→11:14)
[2020-09-11] MEDS ORDERED: fentaNYL citrate 100 MCG/2 ML VIAL ONE ×3 (06:28→10:11)
[2020-09-11] MEDS ORDERED: LIDOCAINE 2% 2 ML VIAL/AMP(20MG/ML) INFIL ONE (06:28)
[2020-09-11] MEDS ORDERED: DEXAMETHASONE SOD INJ 4 MG/ML VIAL ONE (06:28)
--- NOTE | 2020-09-11 06:57 | History & Physical Bridge Note ---
Date of Service September 11, 2020 History & Physical Bridge Note I have examined the patient, reviewed the History & Physical and in the interval since the performance of the History & Physical I have noted the following changes of clinical significance: no changes noted. No coumadin since 09/04. Stopped ASA, ibuprofen
[2020-09-11 07:01] LABS: Partial Thromboplastin Time 25.5 Seconds (21.0-31.0); Prothrombin Time 9.8 Seconds (9.0-12.0)
[2020-09-11] MEDS ORDERED: LIDOCAINE/EPINEPHRINE 1% 20 ML VIAL ONE (07:13)
[2020-09-11] MEDS ORDERED: BUPIVACAINE 0.25% 30 ML VIAL ONE (07:13)
[2020-09-11] MEDS ORDERED: ATROPINE SULFATE 0.1 MG/ML 10ML SYR IV PRN (08:13)
[2020-09-11] MEDS ORDERED: HYDROmorphone INJ 1 MG/ML SYRINGE IV PRN (08:13)
[2020-09-11] MEDS ORDERED: ONDANSETRON INJ 2 MG/ML 2 ML VIAL IV PRN ×4 (08:13→13:36)
[2020-09-11] MEDS ORDERED: fentaNYL citrate 100 MCG/2 ML VIAL IV PRN (08:13)
[2020-09-11] MEDS ORDERED: ePHEDrine sulfate 50 MG/ML AMP IV PRN (08:13)
[2020-09-11] MEDS ORDERED: GLYCOPYRROLATE 0.2 MG/ML VIAL ONE ×2 (08:21→08:34)
[2020-09-11] MEDS ORDERED: KETAMINE 50 MG/5 ML SYRINGE ONE (08:58)
[2020-09-11] MEDS ORDERED: PROMETHAZINE HCL INJ 25 MG/ML 1 ML VIAL ONE (08:59)
--- NOTE | 2020-09-11 09:57 | Operative Report ---
PG Post Operative Report Pre & Post Diagnosis Operation Date: 09/11/20 07:30 Pre-Op Diagnosis: Abdominal Pannus Post-Op Diagnosis: Abdominal Pannus I identified the patient and participated in the time-out.: No Procedure Operation Date: 09/11/20 07:30 Actual Procedures p Panniculectomy(Not Applicable) - Ginger Thrasher MD s Umbilical Hernia Repair with Mesh(Not Applicable) - Pete Zafar DO, FACS Surgeon Pete Zafar DO, FACS Dietitian Assistant Ginger Thrasher MD; Demetria Agosto PA Estimated Blood Loss 1 Findings Consistent with Post-Op Diagnosis 2 cm defect closed with 4.3 cm Ventralex mesh and 0 Nurolon sutures. Specimens None Anesthesia Type General Complications none Disposition Accompanied Patient To Recovery: No Disposition: Recovery Room Indications 70-year-old female undergoing panniculectomy with Dr. Ginger Thrasher, I was called into the room due to a previously unidentified umbilical hernia that measured approximately 2 to 2.5 cm in size. Description of Procedure I was called into the operating room at the request of Dr. Ginger Thrasher. She was performing a panniculectomy and a previously unidentified umbilical hernia was found. For further details regarding Dr. Thrasher's portion of the case, please see her dictation. Upon my arrival the patient was already prepped and draped, and the majority of the panniculectomy had already been performed. At the site of the umbilicus there was a 2 cm fascial defect. The hernia was reduced. The fascia posteriorly was cleared of investing tissue for several centimeters. Hemostasis was achieved within the wound. A 4.3 cm piece of Ventralex mesh was sown into place with interrupted 0 Nurolon sutures. The repair appeared good and there was no additional fascial defects identified. The case was then turned over to Dr. Thrasher to complete the panniculectomy. I attest to the content of the Intraoperative Record and any orders documented therein. Any exceptions are noted below.
[2020-09-11] MEDS ORDERED: TISSEEL FIBRIN SEALANT 10ML TOP ONE (10:59)
[2020-09-11] MEDS ORDERED: ROCURONIUM BROMIDE 10 MG/ML 5 ML VIAL IV ONE (11:31)
--- NOTE | 2020-09-11 13:12 | Post Operative Brief Note ---
PG Immediate Post Op with CF Date of Surgery September 11, 2020 Pre & Post Diagnosis Operation Date: 09/11/20 07:30 Pre-Op Diagnosis: Abdominal Pannus Post-Op Diagnosis: Abdominal Pannus I identified the patient and participated in the time-out.: Yes Procedure Operation Date: 09/11/20 07:30 Actual Procedures p Panniculectomy(Not Applicable) - Ginger Thrasher MD s Umbilical Hernia Repair with Mesh(Not Applicable) - Pete Zafar DO, FACS Surgeon Ginger Thrasher MD Shirt Presser Ginger Thrasher MD; Demetria Agosto PA Estimated Blood Loss 125 Findings Consistent with Post-Op Diagnosis Specimens Specimen Description: A: Pannus Drains Joseph Catheter (inserted after induction of anesthesia by Frankie Lisa RN without difficulty) and Amilcar-Arredondo Drain (x3) Anesthesia Type General
[2020-09-11] MEDS ORDERED: PROMETHAZINE HCL 12.5 MG in SODIUM CHLORIDE 0.9% 50 ML IV PRN (13:31)
[2020-09-11] MEDS ORDERED: LORazepam 0.5 MG TAB PO PRN (13:31)
[2020-09-11] MEDS ORDERED: diphenhydrAMINE Capsule 25 MG CAP PO PRN (13:31)
[2020-09-11] MEDS ORDERED: diphenhydrAMINE 50 MG/ML VIAL IV PRN (13:31)
--- NOTE | 2020-09-11 13:46 | Operative Report ---
PG Post Operative Report Pre & Post Diagnosis Operation Date: 09/11/20 07:30 Pre-Op Diagnosis: Abdominal Pannus Post-Op Diagnosis: Abdominal Pannus I identified the patient and participated in the time-out.: Yes Procedure Operation Date: 09/11/20 07:30 Actual Procedures p Panniculectomy(Not Applicable) - Ginger Thrasher MD s Umbilical Hernia Repair with Mesh(Not Applicable) - Pete Zafar DO, FACS Surgeon Ginger Thrasher MD Math Coach Ginger Thrasher MD; Demetria Agosto PA Estimated Blood Loss 125 Findings Consistent with Post-Op Diagnosis Specimens abdominal pannus Drains BISI x3 Anesthesia Type General Complications none Disposition Accompanied Patient To Recovery: No Disposition: Recovery Room Indications 70-year-old female, overhanging abdominal pannus, skin irritation, nonhealing chronic open wound left abdomen Description of Procedure Risks, benefits, and alternatives of the procedure were explained to the patient who agreed and signed consent. She was identified and marked in the preoperative holding area. She was brought to the operating room where she was positioned supine and placed under general anesthesia without incident. Joseph catheter was placed. Surgical site was prepped and draped sterilely. A time-out procedure was performed. I reassessed my markings which included a lower horizontal abdominal incision with the midportion about 10 cm above the vulvar commissure just above waistline sulcus. Incision was marked bilaterally to the ASIS. I began by injecting 1% lidocaine with epinephrine along the planned incision. The lower abdominal incision was made using a 15-blade scalpel to incise epidermis and superficial dermis followed by electrocautery to incise deep dermis, subcutaneous fat, Tameka's fascia down to the abdominal wall. Care was taken to bevel superiorly in order to avoid encountering the inguinal region. Electrocautery was used to elevate the anterior abdominal skin flap ligating the perforating vessels with 3-0 Vicryl ties, medium clips and electrocautery. Dissection was carried up to the level of the umbilicus in the midline. Given her significant obesity, history of diabetes, use of blood thinners, we discussed preoperatively whether to preserve the umbilicus, and she understood that we would not. Umbilical stalk was divided and an approximately 2 cm hernia was noted. It was freely reducible. Dr. Zafar was called as an intraoperative consult, and he repaired the hernia using Ventralex patch. See his dictated operative report. At this point, the mid portion of the superior skin flap was inset above the mons pubis using 2-0 Vicryl suture. I did not flex the bed in order to minimize tension on the wound. Skin flaps were marked for excision. A 15-blade scalpel was used to make these incisions and the incision was deepened through dermis, subcutaneous fat, Tameka's fat using electrocautery. 3 19 [place] BISI drains were placed through separate stab incisions and brought through the mons pubis. The drains were sutured into place using 3-0 nylon. Prior to closure, a total of 20 mL of 0.25% Marcaine plain were injected into the fascia as well as along the incisions. Wound closure was then begun lateral to medial using 2-0 Vicryl Tameka's fascia sutures, 2-0 Vicryl deep dermal sutures, 2-0 PDO running superficial Quill suture, surgical rito. The drain sites or dressed using Xeroform, an ostomy ring was used around the right lateral drain in order to provide a seal. 2 Prevena plus dressings were applied with good suction. The procedure was tolerated well. The patient was awakened and transferred to recovery in satisfactory condition. Demetria Agosto PA-C was present and scrubbed throughout the entire procedure and was instrumental in providing retraction of the pannus and assisting in simultaneous wound closure. I attest to the content of the Intraoperative Record and any orders documented therein. Any exceptions are noted below.
[2020-09-11] MEDS ORDERED: GLUCAGON FOR INJ 1 MG VIAL SQ PRN (13:51)
[2020-09-11] MEDS ORDERED: CARBOHYDRATES FOR HYPOGLYCEMIA PO PRN (13:51)
[2020-09-11] MEDS ORDERED: GLUCOSE 10 TAB/TUBE PO PRN (13:51)
[2020-09-11] MEDS ORDERED: DEXTROSE 50% 50 ML SYRINGE IV PRN (13:51)
[2020-09-11] MEDS ORDERED: GLUCOSE 40% GEL 15 GM TUBE PO PRN (13:51)
--- NOTE | 2020-09-11 14:03 | Anesthesiology Progress Note ---
Date of Service September 11, 2020 Anesthesia Post Procedure Vital Signs Vital Signs: Temp Pulse Pulse Resp BP BP Pulse Ox 09/11/20 13:55 56 L 15 157/69 H 96 09/11/20 13:45 65 19 166/75 H 100 09/11/20 13:35 65 16 156/74 H 100 09/11/20 13:26 36 C L 68 18 157/76 H 100 09/11/20 06:49 36.9 C 64 20 171/73 H 99 Pain Intensity Lower Back: Pain Intensity: 2 Lower Abdomen: Pain Intensity: 4 Transfer of Care Handoff Completed per policy Notes Mental Status: alert / awake / arousable and participated in evaluation Patient Amnestic to Procedure: Yes Nausea / Vomiting: adequately controlled Pain: adequately controlled Airway Patency, RR, SpO2: stable & adequate BP & HR: stable & adequate Hydration State: stable & adequate Anesthetic Complications: no major complications apparent and Pt Satisfied with anesthetic care
--- NOTE | 2020-09-11 15:18 | Surgery Progress Note ---
Date of Service September 11, 2020 Assessment & Plan (1) S/P panniculectomy: Juanpablo is doing well. She reports that her pain is well-controlled. Preveena plus wound vac x [address] and functioning well with no Alert notifications. [address] in abdomen. All with less than 10 cc of drainage. No signs of clots in tubing or drainage bulb. No evidence of active bleeding on exam. Abdominal binder to remain in place. Joseph cather to remain in place until tomorrow morning at 6AM. Consult placed to Dr. Foster and to [facility] Hospitalist team. Coumadin 5mg ordered to restart tomorrow afternoon at 3PM. Possible discharge tomorrow or Wednesday. Subjective Juanpablo is status post Panniculectomy. She reports that she is doing well. She has good pain control. Physical Exam Physical Exam: Abdominal binder in place- Preveena Plus wound vac x [address]- functioning well with no alert notifications. BISI drains x [address] Serosang drainage (less than 10cc/ drain)- no clots present in tubing or in drainage bulb. No signs of active bleeding. Results & Data ([facility]) Vital Signs (Past 12 Hours) Vital Signs Temp Pulse Pulse Resp BP BP Pulse Ox 09/11/20 14:55 61 16 149/65 H 100 09/11/20 14:45 36.3 C L 52 L 15 149/58 H 09/11/20 14:35 36.3 C L 54 L 14 151/63 H 100 09/11/20 14:25 36.3 C L 51 L 14 163/61 H 09/11/20 14:15 36.3 C L 60 20 167/70 H 100 09/11/20 14:05 55 L 14 161/78 H 96 09/11/20 13:55 56 L 15 157/69 H 96 09/11/20 13:45 65 19 166/75 H 100 09/11/20 13:35 65 16 156/74 H 100 09/11/20 13:26 36 C L 68 18 157/76 H 09/11/20 06:49 36.9 C 64 20 171/73 H 99 PG Care Time/CCT Total # of Minutes Spent Total Time Spent with Patient: Total time spent is greater than 50% in coordination of care (as documented) at patient's floor/unit and/or counseling patient: Coding Level of Care Code None Diagnoses S/P panniculectomy Z98.890
[2020-09-11] MEDS ORDERED: oxyCODONE/ACETAMINOPHEN 5mg/325mg TAB PO PRN (16:24)
[2020-09-11] MEDS ORDERED: MoRPHine SULFATE 4 MG/ML 1 ML CARP\\VIAL IV PRN (16:24)
[2020-09-11] MEDS ORDERED: MoRPHine SULFATE 2 MG/ML CARP IV PRN (16:24)
--- NOTE | 2020-09-11 16:54 | History & Physical Report ---
Date of Service September 11, 2020 Assessment & Plan (1) S/P panniculectomy: This is a 70-year-old female who has significant past medical history of PAF, chronic diastolic CHF bilateral lower extremity lymphedema, PAF anticoagulated on warfarin, T2DM, CKD stage III, hypothyroidism, EDYTA on CPAP, history of CVA, history of PUD, history of osteomyelitis who presents for elective panniculectomy by Dr. Thrasher. Panniculectomy(Not Applicable) - MD shivani Mendez Umbilical Hernia Repair with Mesh(Not Applicable) - Pete Zafar DO, FACS POD #0; EBL 125ml; BISI Drain pain/wound management per surgery diet, activity, therapy as directed by surgery encourage incentive spirometry monitor h&h, pre op 11.5 (2) A-fib: Paroxysmal atrial fibrillation, currently in sinus rhythm Continue amiodarone and metoprolol for rate and rhythm control Anticoagulation coordinated with cardiology and [facility] clinic, scheduled to resume tomorrow at 5 mg daily on POD #1 Regimen is 7.5 mg Wednesday, 5 mg all other days Cardiology consulted by surgery (3) Sleep apnea: Cpap at HS (4) T2DM (type 2 diabetes mellitus): last a1c 06/2020 5.5 obtain a1c in am. hold metformin, prandin lantus/novolog per protocol (5) Hypertension: Bp currently controlled continue amlodipine, metoprolol, aldactone hold bumex until volume status reassessed in a.m. (6) Hypothyroidism: continue levothyroxine (7) Lymphedema: (8) Diastolic dysfunction: daily weights, strict intake and output continue metoprolol and aldactone bumex currently on hold, takes 1mg daily assess volume status and resume when able (9) CKD (chronic kidney disease), stage III: baseline cr 0.8-1.0 monitor bmp avoid nephrotoxic agents (10) Anemia: Patient with chronic anemia, likely in setting of chronic disease Preop hemoglobin 11.5 and 36.0 (11) Morbid obesity: BMI 52.0 lifestyle/diet modifications (12) DVT prophylaxis: resume warfarin per cardiology/surgery Dispo: med tele PCP: Haim Full Code Pt was seen and examined in collaboration with Dr. Kapoor, please see addendum Thank you for this consultation. We will follow the patient with you during their hospital stay. You can reach a member of the [facility] Hospitalist Team 23/11 via hospitalist role on tiger text. Admission and Anticipated Discharge Date Admission Date: September 11, 2020 History of Present Illness Chief Complaint: Postop medical management Primary Care Provider: Micah Whitmore MD This is a 70-year-old female who has significant past medical history of PAF chronic diastolic CHF bilateral lower extremity lymphedema, PAF anticoagulated on warfarin, T2DM, CKD stage III, hypothyroidism, EDYTA on CPAP, history of CVA, history of PUD, history of osteomyelitis who presents for elective panniculectomy by Dr. Thrasher. Of significance in February 2020 she presented to [facility] with severe progressive low back pain. Ultimately she was diagnosed with lumbar osteomyelitis. During hospitalization she was RVR. RASHID was performed which was negative for vegetation on left atrial appendage thrombus and therefore she underwent DCCV with successful oriental orthodox of sinus rhythm. She was then transitioned to oral amiodarone therapy which she had been on previously. She required long-term IV antibiotic therapy and received nonoperative care. She ultimately recovered from her osteomyelitis. Also significantly she was treated with an abdominal wall cellulitis that required surgical intervention which required wound VAC placement which was removed a few weeks ago. The patient had lost a significant amount of weight in the last few years with a max of 312 pounds 2018) most recent epic notes has been down to 259.7 pounds recently. She elected to undergo panniculectomy in hopes for improvement of quality of life and ability to ambulate and reduce chronic low back pain. Patient is on long-term warfarin secondary to atrial fibrillation but she does maintain sinus rhythm. Was held 5 days prior to procedure in coordination with anticoagulation clinic. Her procedure overall went well and she had EBL 125 mL. She had 3 BISI drains placed. During procedure she also underwent umbilical hernia repair with mesh placement by Dr. Zafar. Postoperatively she feels well without acute concerns. She denies fever, chills, sweats, lightheadedness, dizziness, chest pain, shortness of breath, cough, nausea, early& vomiting. She does complain of abdominal pain secondary to incisional tenderness. She has Sin catheter in place and complains of urgency. Allergies Allergy/AdvReac Type Severity Reaction Status Date / Time Penicillins Allergy Intermediate URTICARIA; Verified 09/11/20 06:32 PER PT, CAN TAKE AMOXICILLIN erythromycin base AdvReac Mild GI UPSET Verified 09/11/20 06:32 Home Medications Medication Instructions Recorded Confirmed Type allopurinol 100 mg tablet 200 mg PO HS tab 02/15/18 09/11/20 History aspirin 81 mg chewable tablet 81 mg PO HS 02/15/18 09/11/20 History multivitamin 1 tab PO HS 02/15/18 09/11/20 History omeprazole 20 mg capsule,delayed 20 mg PO QAM 02/15/18 09/11/20 History release spironolactone 25 mg tablet 25 mg PO QAM 02/15/18 09/11/20 History levothyroxine 50 mcg capsule 50 mcg PO QAM cap 03/03/18 09/11/20 History magnesium oxide 400 mg PO QPM 02/03/20 09/11/20 History repaglinide 0.5 mg PO TIDM 02/03/20 09/11/20 History rosuvastatin [Crestor] 10 mg PO HS 02/03/20 09/11/20 History metoprolol tartrate 50 mg PO BID #0 tab 02/09/20 09/11/20 Rx bumetanide 1 mg tablet 0.5 - 1 mg PO QAM tab 06/20/20 09/11/20 History cholecalciferol (vitamin D3) 25 1,000 unit PO QAM cap 06/20/20 09/11/20 History mcg (1,000 unit) capsule metformin 500 mg tablet,extended 500 mg PO QAM tab 06/20/20 09/11/20 History release 24 hr acetaminophen 1,000 mg PO TID PRN 09/04/20 09/11/20 History amiodarone 200 mg PO QAM 09/04/20 09/11/20 History amlodipine 5 mg PO BID 09/04/20 09/11/20 History arginine (L-arginine) 500 mg PO QAM 09/04/20 09/11/20 History docusate sodium [Colace] 100 mg PO TID 09/04/20 09/11/20 History oxycodone 5 mg PO Q6H PRN 09/04/20 09/11/20 History oxycodone 15 mg PO QAM PRN 09/04/20 09/11/20 History psyllium husk [Fiber (psyllium 1.04 g PO BID 09/04/20 09/11/20 History husk)] warfarin 5 mg PO UD 09/04/20 09/11/20 History Past Med/Surg History Medical History A-fib Paroxysmal, Follows with Dr. Foster Anemia CKD stage 3 secondary to diabetes CVA (cerebral vascular accident) Silent > Old infarct found on remote CT imaging (dating back to at least 2017) Diastolic dysfunction DM II (diabetes mellitus, type II), controlled NIDDM Dyslipidemia Gastric ulcer due to Helicobacter pylori hx Gout hx Hx of basal cell carcinoma Hx of osteomyelitis Spine (02/2020) treated at [facility] with exterminator helper termite antibiotics and oxycodone for pain management Hypertension Hypothyroidism Lymphedema Morbid obesity Osteoarthritis Sleep apnea CPAP T2DM (type 2 diabetes mellitus) Wound of abdomen Previous wound vac/debridement > evaluated by surgeon's office 08/27/20 ([facility]) noting "sizable wound of the left lower quadrant, 100% granulated, but quite deep in some areas. Some of the granulation is up to surface" without evidence of cellulitic change Surgical History H/O basal cell carcinoma excision H/O left knee surgery multiple knee arthroscopy on left H/O repair of rotator cuff right History of arthroplasty of left knee History of cardioversion RASHID with cardioversion (02/07/20): MAC sedation at [facility] History of carpal tunnel surgery History of esophagogastroduodenoscopy (EGD) S/P debridement multiple abdominal debridements at [facility]. 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 Required: No Beliefs That Will Affect Care: None marital status: / Current Living Situation: Alone Current Living Situation Comment: currently living with daughter current occupational status: retired Other Information That Helps Us Care for You: No Feels Safe at Home: Yes Safety Concerns: Feels Safe At This Time Assistive Devices: CPAP, Denture - Upper, Denture - Lower, Glasses and Walker Review of Systems Review of Systems: All systems reviewed & are unremarkable except as noted in HPI & below Physical Exam Physical Exam: Constitutional: WD/WN, bese, F, vitals as above, NAD, sitting up in bed, pleasant, conversing easily Head: Normocephalic, Atraumatic Eyes: PERRL, conjunctivae normal, anicteric sclerae ENMT: external ear and nose normal, oropharynx normal Neck: trachea midline, no thyromegaly normal visual inspection Respiratory: normal respiratory effort, lungs clear to auscultation, no wheeze, rales, rhonchi. Normal insp/exp effort, no accessory muscle use Cardiovascular: RRR, 1/6 KATHI noted LUSB, normal inspection of chest Abdomen:+ abd binder in place, dressing CDI, BISI drain x 3, +BS Musculoskeletal: no cyanosis or clubbing, extremities motor strength 5/5 Skin: no rashes, warm and dry normal turgor Neurologic: PERRL, EOMI, accommodation nl, no face palsy, no dysarthria CN's II-XI intact bilaterally and moves all extremities Psychiatric: A+Ox3, euthymic affect Lymphatic: no cervical or axillary lymphadenopathy : sin cath draining yellow urine Results & Data Results & Data ([facility]) Vital Signs (Past 12 Hours) Vital Signs Temp Pulse Pulse Resp BP BP Pulse Ox 09/11/20 15:40 57 L 18 141/67 H 97 09/11/20 15:25 51 L 18 141/77 H 97 09/11/20 15:10 62 16 144/65 H 100 09/11/20 14:55 61 16 149/65 H 100 09/11/20 14:45 36.3 C L 52 L 15 149/58 H 100 09/11/20 14:35 36.3 C L 54 L 14 151/63 H 100 09/11/20 14:25 36.3 C L 51 L 14 163/61 H 100 09/11/20 14:15 36.3 C L 60 20 167/70 H 100 09/11/20 14:05 55 L 14 161/78 H 96 09/11/20 13:55 56 L 15 157/69 H 96 09/11/20 13:45 65 19 166/75 H 100 09/11/20 13:35 65 16 156/74 H 100 09/11/20 13:26 36 C L 68 18 157/76 H 100 09/11/20 06:49 36.9 C 64 20 171/73 H 99 Laboratory Results Lab work performed preop: WBC 8.19, hemoglobin 11.5, hematocrit 36, platelet count 277 INR 1.3 Sodium 139, potassium 4.4, chloride 107, CO2 30, BUN 33, creatinine 1.15, EGFR 48 mL/minute per meter squared, Diagnostic Findings Echo 02/2020 EF WNL, no significant valvular abnormality Medications Administered Lactated Ringer's (Lr) 1,000 mls @ 15 mls/hr IV .Q24H MONIKA Stop: 09/11/20 18:00 Last Infusion: 09/11/20 07:39 Dose: 0 mls/hr Documented by: [id number] Admin: 09/11/20 06:48 Dose: 15 mls/hr Documented by: [id number] Clindamycin Phosphate (Cleocin) 600 mg in 54 mls @ 100 mls/hr IV PREOP MONIKA Stop: 09/11/20 18:00 Last Infusion: 09/11/20 15:46 Dose: 0 mls/hr Documented by: [id number] Admin: 09/11/20 07:39 Dose: 100 mls/hr Documented by: [id number] Discontinued Medications Bupivacaine HCl (Bupivacaine 0.25% 30 Ml Vial) Confirm Administered Dose 30 ml .ROUTE .STK-MED ONE Stop: 09/11/20 07:14 Last Admin: 09/11/20 09:59 Dose: 20 ml Documented by: [id number] Lidocaine/Epinephrine (Lidocaine/Epinephrine 1% 20 Ml Vial) Confirm Administered Dose 20 ml .ROUTE .STK-MED ONE Stop: 09/11/20 07:14 Last Admin: 09/11/20 09:11 Dose: 20 ml Documented by: [id number] Miscellaneous (Tisseel Fibrin Sealant 10ml) 20 ml TOP ONCE ONE Stop: 09/11/20 11:00 Last Admin: 09/11/20 11:00 Dose: 20 ml Documented by: [id number] ECG Rhythm: sinus bradycardia Findings: + LPFB Additional Comments: ecg from cardiology clinic 09/05/20 Code Status & VTE Plan Code Status Full Code VTE Prophylaxis Plan VTE Prophylaxis will be ordered: Yes Reason for no VTE drug order: Contraindicated Supervising Physician Co-Signing Physician Notes Patient is a 70-year-old female with history of CHF, paroxysmal A. fib, bilateral lower extremity lymphedema, diabetes CKD and other medical problems was consulted for postop medical management. She underwent elective panniculectomy and umbilical hernia repair. Patient is doing well postop. She denies any chest pain, shortness of breath, dizziness, nausea. She reports having some soreness at surgical site. Please review HPI for complete details. On exam patient is morbidly obese, no apparent distress, normocephalic atraumatic, lungs are clear to auscultation, normal breath sounds, S1-S2, no murmur, no pedal edema, abdomen soft,+ abdominal binder, normal bowel sounds, alert, awake, oriented, grossly no focal deficits. Patient is consulted for postop medical management. On Coumadin for DVT prophylaxis. Pain control, wound care, activity as per primary team. Monitor INR and adjust Coumadin dose as needed. Continue amiodarone, metoprolol for A. fib. Continue insulin therapy while hospitalized for diabetes management. Monitor volume status given history of CHF. I personally reviewed the record. Patient is interviewed and examined at bedside. Patient's care is coordinated with Florinda York PA-C. Please refer to the documentation above for details of patient's presentation and for discussion of other issues.
[2020-09-11] MEDS: CLINDAMYCIN 900 MG in DEXTROSE 5% 50 ML IV SCH (18:23)
[2020-09-11] MEDS: D5W AND 1/2NSS + 20MEQ KCL 20 MEQ/1,000 ML BAG IV SCH (18:24)
[2020-09-11] MEDS: INSULIN ASPART 100 UNITS/ML 3 ML PEN SC SCH ×2 (18:25→20:53)
--- NOTE | 2020-09-11 18:26 | Cardiology Consultation ---
Date of Consultation September 11, 2020 Assessment & Plan (1) A-fib: (2) Diastolic dysfunction: (3) S/P panniculectomy: Patient with history of paroxysmal atrial fibrillation. Continue outpatient amiodarone 200 mg daily and Toprol tartrate for rhythm control strategy. Coumadin is going to be reinitiated tonight as per previous plan. We will allow her INR to come up slowly without bridge therapy. Continue spironolactone. Check CBC, CMP, INR tomorrow. Agree with knee-high SCDs for DVT prophylaxis. History of Present Illness Attending Physician: Ginger Thrasher MD History of Present Illness Alex Paulino is a 70-year-old female seen in cardiology consultation per the request of Demetria Agosto PA-C and Dr. Thrasher for perioperative cardiac management given her history of diastolic dysfunction and paroxysmal atrial fibrillation. The patient was seen in preoperative evaluation by the undersigned on 09/05/2020 at which time stable cardiac signs and symptoms were noted. Her edema has been well controlled. Coumadin has been held for 5 days prior to surgery. She underwent surgical panniculectomy and thus far has tolerated the procedure well. She is enjoying her evening meal. Postoperative pain is controlled. She is in sinus rhythm in the 60s on the campus monitor. Allergies Allergy/AdvReac Type Severity Reaction Status Date / Time Penicillins Allergy Intermediate URTICARIA; Verified 09/11/20 06:32 PER PT, CAN TAKE AMOXICILLIN erythromycin base AdvReac Mild GI UPSET Verified 09/11/20 06:32 Home Medications Medication Instructions Recorded Confirmed Type allopurinol 100 mg tablet 200 mg PO HS tab 02/15/18 09/11/20 History aspirin 81 mg chewable tablet 81 mg PO HS 02/15/18 09/11/20 History multivitamin 1 tab PO HS 02/15/18 09/11/20 History omeprazole 20 mg capsule,delayed 20 mg PO QAM 02/15/18 09/11/20 History release spironolactone 25 mg tablet 25 mg PO QAM 02/15/18 09/11/20 History levothyroxine 50 mcg capsule 50 mcg PO QAM cap 03/03/18 09/11/20 History magnesium oxide 400 mg PO QPM 02/03/20 09/11/20 History repaglinide 0.5 mg PO TIDM 02/03/20 09/11/20 History rosuvastatin [Crestor] 10 mg PO HS 02/03/20 09/11/20 History metoprolol tartrate 50 mg PO BID #0 tab 02/09/20 09/11/20 Rx bumetanide 1 mg tablet 0.5 - 1 mg PO QAM tab 06/20/20 09/11/20 History cholecalciferol (vitamin D3) 25 1,000 unit PO QAM cap 06/20/20 09/11/20 History mcg (1,000 unit) capsule metformin 500 mg tablet,extended 500 mg PO QAM tab 06/20/20 09/11/20 History release 24 hr acetaminophen 1,000 mg PO TID PRN 09/04/20 09/11/20 History amiodarone 200 mg PO QAM 09/04/20 09/11/20 History amlodipine 5 mg PO BID 09/04/20 09/11/20 History arginine (L-arginine) 500 mg PO QAM 09/04/20 09/11/20 History docusate sodium [Colace] 100 mg PO TID 09/04/20 09/11/20 History oxycodone 5 mg PO Q6H PRN 09/04/20 09/11/20 History oxycodone 15 mg PO QAM PRN 09/04/20 09/11/20 History psyllium husk [Fiber (psyllium 1.04 g PO BID 09/04/20 09/11/20 History husk)] warfarin 5 mg PO UD 09/04/20 09/11/20 History Patient History Medical History A-fib Paroxysmal, Follows with Dr. Foster Anemia CKD stage 3 secondary to diabetes CVA (cerebral vascular accident) Silent > Old infarct found on remote CT imaging (dating back to at least 2017) Diastolic dysfunction DM II (diabetes mellitus, type II), controlled NIDDM Dyslipidemia Gastric ulcer due to Helicobacter pylori hx Gout hx Hx of basal cell carcinoma Hx of osteomyelitis Spine (02/2020) treated at [facility] with long-term antibiotics and oxycodone for pain management Hypertension Hypothyroidism Lymphedema Morbid obesity Osteoarthritis Sleep apnea CPAP T2DM (type 2 diabetes mellitus) Wound of abdomen Previous wound vac/debridement > evaluated by surgeon's office 08/27/20 ([facility]) noting "sizable wound of the left lower quadrant, 100% granulated, but quite deep in some areas. Some of the granulation is up to surface" without evidence of cellulitic change Surgical History H/O basal cell carcinoma excision H/O left knee surgery multiple knee arthroscopy on left H/O repair of rotator cuff right History of arthroplasty of left knee History of cardioversion RASHID with cardioversion (02/07/20): MAC sedation at [facility] History of carpal tunnel surgery History of esophagogastroduodenoscopy (EGD) S/P debridement multiple abdominal debridements at [facility]. 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 Required: No Beliefs That Will Affect Care: None marital status: / Current Living Situation: Alone Current Living Situation Comment: currently living with daughter current occupational status: retired Other Information That Helps Us Care for You: No Feels Safe at Home: Yes Safety Concerns: Feels Safe At This Time Assistive Devices: CPAP, Denture - Upper, Denture - Lower, Glasses and Walker Physical Exam Physical Exam: Temp Pulse Resp BP Pulse Ox 36.7 C 58 L 20 144/76 H 96 09/11/20 17:21 09/11/20 17:21 09/11/20 17:21 09/11/20 17:21 09/11/20 17:21 Constitutional: WD/WN, vitals as above Respiratory: normal respiratory effort, lungs clear to auscultation Cardiovascular: RRR, no murmur, no edema Gastrointestinal (Abdomen): Not examined Neurologic: PERRL, EOMI, accommodation nl, no face palsy, no dysarthria Results & Data ([facility]) Vital Signs (Past 12 Hours) Vital Signs Temp Pulse Pulse Resp BP BP Pulse Ox 09/11/20 17:21 36.7 C 58 L 20 144/76 H 96 09/11/20 16:15 36.5 C 60 20 140/72 95 09/11/20 15:40 57 L 18 141/67 H 97 09/11/20 15:25 51 L 18 141/77 H 97 09/11/20 15:10 62 16 144/65 H 100 09/11/20 14:55 61 16 149/65 H 100 09/11/20 14:45 36.3 C L 52 L 15 149/58 H 100 09/11/20 14:35 36.3 C L 54 L 14 151/63 H 100 09/11/20 14:25 36.3 C L 51 L 14 163/61 H 100 09/11/20 14:15 36.3 C L 60 20 167/70 H 100 09/11/20 14:05 55 L 14 161/78 H 96 09/11/20 13:55 56 L 15 157/69 H 96 09/11/20 13:45 65 19 166/75 H 100 09/11/20 13:35 65 16 156/74 H 09/11/20 13:26 36 C L 68 18 157/76 H 100 09/11/20 06:49 36.9 C 64 20 171/73 H 99
[2020-09-11] MEDS: oxyCODONE/ACETAMINOPHEN 5mg/325mg TAB PO PRN (19:42)
[2020-09-11] MEDS: METOPROLOL TARTRATE 50 MG TAB PO SCH (20:50)
[2020-09-11] MEDS: amLODIPine BESYLATE 5 MG TAB PO SCH (20:52)
[2020-09-11] MEDS: INSULIN GLARGINE SOLOSTAR 100 UNITS/ML 3 ML PEN SC SCH (20:55)
[2020-09-11] MEDS ORDERED: allopurinoL 100 MG TAB PO SCH (21:00)
[2020-09-11] MEDS ORDERED: ROSUVASTATIN CALCIUM 10 MG TAB PO SCH (21:00)
[2020-09-12] MEDS: oxyCODONE/ACETAMINOPHEN 5mg/325mg TAB PO PRN ×3 (01:30→12:42)
[2020-09-12] MEDS: CLINDAMYCIN 900 MG in DEXTROSE 5% 50 ML IV SCH ×2 (02:13→08:36)
[2020-09-12] MEDS: D5W AND 1/2NSS + 20MEQ KCL 20 MEQ/1,000 ML BAG IV SCH ×2 (04:32→09:33)
[2020-09-12] MEDS ORDERED: LEVOTHYROXINE SODIUM 50 MCG TABLET PO SCH (06:30)
--- NOTE | 2020-09-12 07:39 | Surgery Progress Note ---
Date of Service September 12, 2020 Assessment & Plan (1) S/P panniculectomy: Juanpablo is doing well. She reports that her pain is well-controlled. Preveena plus wound vac x [address] and functioning well with no Alert notifications. [address] in abdomen. All with less than 10 cc of drainage. No signs of clots in tubing or drainage bulb. No evidence of active bleeding on exam. Abdominal binder to remain in place. Sin catheter removed this morning without issue. Consultation from both Dr. Foster and Hospitalist reviewed. Coumadin 5mg ordered to start today at 3PM. Plan for discharge to home this afternoon. Juanpablo is aware that she is not allowed to shower until further notice from our office. She is aware that she will be discharged with all 3 drains and wound vac x [address] She will follow-up in the office tomorrow. Admission and Anticipated Discharge Date Admission Date: September 11, 2020 Subjective Juanpablo is status post Panniculectomy. She reports that she is doing well. She has good pain control. States that sin catheter was removed this morning. She has not voided on her own yet. She has not been out of bed yet. Plans to eat br eakfast in chair. She is tolerating her diet without issue. She is eager for discharge. BISI drains with 25-30cc of serosang drainage each overnight. Physical Exam Physical Exam: Abdominal binder in place- Preveena Plus wound vac x [address]- functioning well with no alert notifications. BISI drains x [address] Serosang drainage (less than 5cc/ drain- drains were emptied about 1 hour before I arrived to see patient.)- no clots present in tubing or in drainage bulb. No signs of active bleeding. Results & Data ([facility]) Vital Signs (Past 12 Hours) Vital Signs Temp Pulse Pulse Resp BP BP Pulse Ox 09/12/20 07:31 60 09/12/20 07:10 36.8 C 61 20 124/63 99 09/12/20 03:52 36.8 C 61 20 131/72 95 09/12/20 01:18 69 09/11/20 23:32 36.8 C 63 18 133/64 92 09/11/20 19:42 36.8 C 65 20 129/64 95 PG Care Time/CCT Total # of Minutes Spent Total Time Spent with Patient: Total time spent is greater than 50% in coordination of care (as documented) at patient's floor/unit and/or counseling patient: Coding Level of Care Code None Diagnoses S/P panniculectomy Z98.890
--- NOTE | 2020-09-12 08:01 | Hospitalist Progress Note ---
Date of Service September 12, 2020 Assessment & Plan (1) S/P panniculectomy: This is a 70-year-old female who has significant past medical history of PAF, chronic diastolic CHF bilateral lower extremity lymphedema, PAF anticoagulated on warfarin, T2DM, CKD stage III, hypothyroidism, EDYTA on CPAP, history of CVA, history of PUD, history of osteomyelitis who presents for elective panniculectomy by Dr. Thrasher. Panniculectomy(Not Applicable) - MD shivani Mendez Umbilical Hernia Repair with Mesh(Not Applicable) - Pete Zafar DO, FACS POD #1 pain/wound management per surgery diet, activity, therapy as directed by surgery encourage incentive spirometry monitor h&h, pre op 11.5, current Hgb 10.0 (2) A-fib: Paroxysmal atrial fibrillation, currently in sinus rhythm Continue amiodarone and metoprolol for rate and rhythm control Anticoagulation coordinated with cardiology and [facility] clinic, scheduled to resume at 5 mg daily starting today Regimen is 7.5 mg Wednesday, 5 mg all other days Cardiology consulted by surgery (3) Sleep apnea: Cpap at HS (4) T2DM (type 2 diabetes mellitus): last a1c 06/2020 5.5 Current Hgb A1c 5.8% held metformin, prandin, resume on DC lantus/novolog per protocol while inpt (5) Hypertension: Bp currently controlled continue amlodipine, metoprolol, aldactone held bumex, can resume now (6) Hypothyroidism: continue levothyroxine (7) Lymphedema: (8) Diastolic dysfunction: daily weights, strict intake and output continue metoprolol and aldactone bumex initially on hold, takes daily resume now (9) CKD (chronic kidney disease), stage III: baseline cr 0.8-1.0 monitor bmp avoid nephrotoxic agents (10) Anemia: Patient with chronic anemia, likely in setting of chronic disease Preop hemoglobin 11.5 and 36.0 Current hgb 10.0 (11) Morbid obesity: BMI 52.0 lifestyle/diet modifications (12) DVT prophylaxis: resume warfarin per cardiology/surgery Dispo: med tele PCP: Dr. Whitmore -follow-up appointment scheduled Full Code Thank you for this consultation. We will follow the patient with you during their hospital stay. You can reach a member of the [facility] Hospitalist Team 24/7 via hospitalist role on tiger text. Admission and Anticipated Discharge Date Admission Date: September 11, 2020 Subjective Patient seen in follow-up for Panniculectomy and umbilical hernia repair, A. fib and other medical problems. She is currently sitting up in bed, in no acute distress She is little sore in her abdomen, status post surgery, she is wearing an abd ominal binder She is alert and oriented answering questions appropriately Sin catheter was removed this morning She has not been out of bed yet. She denies any fevers, chills, chest pain, shortness of breath, nausea or vomiting Reviewed notes from plastic surgery, likely plan for discharge this afternoon. Review of Systems Review of Systems: All systems reviewed & are unremarkable except as noted in HPI & below Constitutional: no fever and no chills Respiratory: no cough and no dyspnea Cardiovascular: no chest pain and no palpitations Gastrointestinal: + abdominal pain (some postsurgical, expected); no nausea and no vomiting Physical Exam Physical Exam: Constitutional: WD/WN, obese, F, in NAD, sitting up in bed, pleasant, conversing easily Head: Normocephalic, Atraumatic Eyes: PERRL, EOMI, conjunctivae normal, anicteric sclerae ENMT: external ear and nose normal, oropharynx normal Neck: trachea midline, no thyromegaly normal visual inspection Respiratory: normal respiratory effort, lungs clear to auscultation, no wheeze, rales, rhonchi. Normal insp/exp effort, no accessory muscle use Cardiovascular: RRR, 1/6 KATHI noted LUSB, normal inspection of chest Abdomen:+ abd binder in place, dressing CDI, BISI drain x 3, +BS Musculoskeletal: no cyanosis or clubbing, extremities motor strength 5/5 Skin: no rashes, warm and dry normal turgor Neurologic: PERRL, EOMI, no face palsy, no dysarthria, moves all extremities Psychiatric: A+Ox3, euthymic affect Lymphatic: no cervical or axillary lymphadenopathy : sin removed Results & Data Results & Data ([facility]) Vital Signs (Past 12 Hours) Vital Signs Temp Pulse Pulse Resp BP Pulse Ox 09/12/20 07:31 60 09/12/20 07:10 36.8 C 61 20 124/63 99 05/13/21 03:52 36.8 C 61 20 131/72 95 09/12/20 01:18 69 09/11/20 23:32 36.8 C 63 18 133/64 92 Laboratory Results 09/12/20 09/12/20 09/12/20 Range/Units 11:30 07:58 07:58 WBC (4.8-10.8) K/uL RBC (4.2-5.4) M/uL Hgb (12.0-16.0) g/dL Hct (37-47) % MCV (80-100) fL MCH (25-34) pg MCHC (32-36) g/dL RDW Std Deviation (36.4-46.3) fL RDW Coeff of Yvette (11.5-14.5) % Plt Count (130-400) K/uL MPV (7.4-10.4) fL Immature Gran % (Auto) % Neut % (Auto) % Lymph % (Auto) % Bowie % (Auto) % Eos % (Auto) % Baso % (Auto) % Neut # (Auto) (1.4-6.5) K/uL Lymph # (Auto) (1.2-3.4) K/uL Bowie # (Auto) (0.11-0.59) K/uL Eos # (Auto) (0-0.5) K/uL Baso # (Auto) (0-0.2) K/uL Immature Gran # (Auto) (0.00-0.02) K/uL PT (9.0-12.0) Seconds INR (0.9-1.1) Sodium 137 (136-145) mmol/L Potassium 4.5 (3.5-5.1) mmol/L Chloride 107 (98-107) mmol/L Carbon Dioxide 25 (21-32) mmol/L Anion Gap 5.0 (3-11) BUN 27 H (7-18) mg/dl Creatinine 1.07 (0.6-1.2) mg/dl Est Cr Clr Drug Dosing 55.3 ml/min Est GFR ( Amer) 60.9 ml/min Est GFR (Non-Af Amer) 52.6 ml/min BUN/Creatinine Ratio 24.9 H (10-20) Glucose 138 H (70-99) mg/dl POC Glucose 120 H (70-99) mg/dl Estimat Average Glucose 120 mg/dl Hemoglobin A1c 5.8 H (4.5-5.6) % Calcium 9.0 (8.5-10.1) mg/dl Total Bilirubin 0.3 (0.2-1) mg/dl AST 14 L (15-37) U/L ALT 20 (12-78) U/L Alkaline Phosphatase 76 (45-117) U/L Total Protein 6.3 L (6.4-8.2) gm/dl Albumin 2.8 L (3.4-5.0) gm/dl Globulin 3.5 (2.5-4.0) gm/dl Albumin/Globulin Ratio 0.8 L (0.9-2) 09/12/20 09/12/20 09/12/20 Range/Units 07:58 07:58 07:47 WBC 9.67 (4.8-10.8) K/uL RBC 3.55 L (4.2-5.4) M/uL Hgb 10.0 L (12.0-16.0) g/dL Hct 30.9 L (37-47) % MCV 87.0 (80-100) fL MCH 28.2 (25-34) pg MCHC 32.4 (32-36) g/dL RDW Std Deviation 49.3 H (36.4-46.3) fL RDW Coeff of Yvette 15.4 H (11.5-14.5) % Plt Count 218 (130-400) K/uL MPV 9.8 (7.4-10.4) fL Immature Gran % (Auto) 0.2 % Neut % (Auto) 72.2 % Lymph % (Auto) 19.4 % Bowie % (Auto) 6.9 % Eos % (Auto) 1.0 % Baso % (Auto) 0.3 % Neut # (Auto) 6.97 H (1.4-6.5) K/uL Lymph # (Auto) 1.88 (1.2-3.4) K/uL Bowie # (Auto) 0.67 H (0.11-0.59) K/uL Eos # (Auto) 0.10 (0-0.5) K/uL Baso # (Auto) 0.03 (0-0.2) K/uL Immature Gran # (Auto) 0.02 (0.00-0.02) K/uL PT 10.5 (9.0-12.0) Seconds INR 1.0 (0.9-1.1) Sodium (136-145) mmol/L Potassium (3.5-5.1) mmol/L Chloride (98-107) mmol/L Carbon Dioxide (21-32) mmol/L Anion Gap (3-11) BUN (7-18) mg/dl Creatinine (0.6-1.2) mg/dl Est Cr Clr Drug Dosing ml/min Est GFR ( Amer) ml/min Est GFR (Non-Af Amer) ml/min BUN/Creatinine Ratio (10-20) Glucose (70-99) mg/dl POC Glucose 157 H (70-99) mg/dl Estimat Average Glucose mg/dl Hemoglobin A1c (4.5-5.6) % Calcium (8.5-10.1) mg/dl Total Bilirubin (0.2-1) mg/dl AST (15-37) U/L ALT (12-78) U/L Alkaline Phosphatase (45-117) U/L Total Protein (6.4-8.2) gm/dl Albumin (3.4-5.0) gm/dl Globulin (2.5-4.0) gm/dl Albumin/Globulin Ratio (0.9-2) 09/11/20 09/11/20 09/11/20 Range/Units 20:21 16:53 13:52 WBC (4.8-10.8) K/uL RBC (4.2-5.4) M/uL Hgb (12.0-16.0) g/dL Hct (37-47) % MCV (80-100) fL MCH (25-34) pg MCHC (32-36) g/dL RDW Std Deviation (36.4-46.3) fL RDW Coeff of Yvette (11.5-14.5) % Plt Count (130-400) K/uL MPV (7.4-10.4) fL Immature Gran % (Auto) % Neut % (Auto) % Lymph % (Auto) % Bowie % (Auto) % Eos % (Auto) % Baso % (Auto) % Neut # (Auto) (1.4-6.5) K/uL Lymph # (Auto) (1.2-3.4) K/uL Bowie # (Auto) (0.11-0.59) K/uL Eos # (Auto) (0-0.5) K/uL Baso # (Auto) (0-0.2) K/uL Immature Gran # (Auto) (0.00-0.02) K/uL PT (9.0-12.0) Seconds INR (0.9-1.1) Sodium (136-145) mmol/L Potassium (3.5-5.1) mmol/L Chloride (98-107) mmol/L Carbon Dioxide (21-32) mmol/L Anion Gap (3-11) BUN (7-18) mg/dl Creatinine (0.6-1.2) mg/dl Est Cr Clr Drug Dosing ml/min Est GFR ( Amer) ml/min Est GFR (Non-Af Amer) ml/min BUN/Creatinine Ratio (10-20) Glucose (70-99) mg/dl POC Glucose 169 H 168 H 179 H (70-99) mg/dl Estimat Average Glucose mg/dl Hemoglobin A1c (4.5-5.6) % Calcium (8.5-10.1) mg/dl Total Bilirubin (0.2-1) mg/dl AST (15-37) U/L ALT (12-78) U/L Alkaline Phosphatase (45-117) U/L Total Protein (6.4-8.2) gm/dl Albumin (3.4-5.0) gm/dl Globulin (2.5-4.0) gm/dl Albumin/Globulin Ratio (0.9-2) Medications Administered Current Inpatient Medications Allopurinol (Allopurinol 100 Mg Tab) 200 mg PO HS MONIKA Stop: 10/11/20 20:59 Last Admin: 09/11/20 20:51 Dose: 200 mg Documented by: Amiodarone HCl (Amiodarone 200 Mg Tab) 200 mg PO QAM MONIKA Stop: 10/12/20 08:59 Amlodipine Besylate (Amlodipine Besylate 5 Mg Tab) 5 mg PO BID MONIKA Stop: 10/11/20 20:59 Last Admin: 09/11/20 20:52 Dose: 5 mg Documented by: Dextrose (Dextrose 50% 50 Ml Syringe) 25 - 50 ml IV UD PRN; Protocol PRN Reason: Hypoglycemia Protocol Stop: 10/11/20 13:50 Diphenhydramine HCl (Diphenhydramine Capsule 25 Mg Cap) 25 mg PO Q6H PRN PRN Reason: Itching Stop: 10/11/20 13:30 Diphenhydramine HCl (Diphenhydramine 50 Mg/Ml Vial) 25 mg IV Q6H PRN PRN Reason: Itching Stop: 10/11/20 13:30 Glucagon (Glucagon For Inj 1 Mg Vial) 1 mg SQ UD PRN; Protocol PRN Reason: Hypoglycemia Protocol Stop: 10/11/20 13:50 Glucose (Glucose 10 Tabs/Tube) 4 - 8 tabs PO UD PRN; Protocol PRN Reason: Hypoglycemia Protocol Stop: 10/11/20 13:50 Glucose (Glucose 40% Gel 15 Gm Tube) 15 - 30 gm PO UD PRN; Protocol PRN Reason: Hypoglycemia Protocol Stop: 10/11/20 13:50 Potassium Chloride/Dextrose/Sod Cl (D5w And 1/2nss + 20meq Kcl) 20 meq in 1,000 mls @ 125 mls/hr IV .Q8H MONIKA Stop: 10/11/20 16:29 Last Admin: 09/12/20 04:32 Dose: 125 mls/hr Documented by: Promethazine HCl 12.5 mg/ (Sodium Chloride) 50.5 mls @ 204 mls/hr IV Q6H PRN PRN Reason: Nausea And Vomiting Stop: 10/11/20 13:30 Clindamycin Phosphate 900 mg/ (Dextrose) 56 mls @ 112 mls/hr IV Q8H MONIKA Stop: 09/12/20 16:59 Last Infusion: 09/12/20 03:16 Dose: Infused Documented by: Insulin Aspart (Insulin Aspart 100 Units/Ml 3 Ml Pen) 0 units SC ACHS MONIKA Stop: 10/11/20 16:29 Last Admin: 09/11/20 20:53 Dose: 2 units Documented by: Insulin Glargine (Insulin Glargine Solostar 100 Units/Ml 3 Ml Pen) 0 - 10 units SC BID MONIKA Stop: 10/11/20 20:59 Last Admin: 09/11/20 20:55 Dose: 5 units Documented by: Levothyroxine Sodium (Levothyroxine Sodium 50 Mcg Tablet) 50 mcg PO DAILYBB [facility] Stop: 10/12/20 06:29 Last Admin: 09/12/20 06:04 Dose: 50 mcg Documented by: Lorazepam (Lorazepam 0.5 Mg Tab) 0.5 mg PO HS PRN PRN Reason: Sleep Stop: 10/11/20 13:30 Metoprolol Tartrate (Metoprolol Tartrate 50 Mg Tab) 50 mg PO BID [facility] Stop: 10/11/20 20:59 Last Admin: 09/11/20 20:50 Dose: 50 mg Documented by: Miscellaneous (Carbohydrates For Hypoglycemia ) 15 - 30 gm PO UD PRN PRN Reason: Hypoglycemia Protocol Stop: 10/11/20 13:50 Morphine Sulfate (Morphine Sulfate 2 Mg/Ml Carp) 2 mg IV Q3H PRN PRN Reason: Pain (1,2,3,4,5) & Pre PT Stop: 09/25/20 16:23 Morphine Sulfate (Morphine Sulfate 4 Mg/Ml 1 Ml Carp\Vial) 4 mg IV Q3H PRN PRN Reason: Pain (6,7,8,9,10) Stop: 09/25/20 16:23 Multivitamins (Multivitamin Tab) 1 tab PO QAM [facility] Stop: 10/12/20 08:59 Ondansetron HCl (Ondansetron Inj 2 Mg/Ml 2 Ml Vial) 4 mg IV Q4H PRN PRN Reason: Nausea Stop: 10/11/20 13:30 Oxycodone/Acetaminophen (Oxycodone/Acetaminophen 5mg/325mg Tab) 1 tab PO Q4H PRN PRN Reason: MODERATE Pain (4,5,6) & Pre PT Stop: 09/25/20 16:23 Oxycodone/Acetaminophen (Oxycodone/Acetaminophen 5mg/325mg Tab) 2 tab PO Q4H PRN PRN Reason: SEVERE Pain (7,8,9,10) Stop: 09/25/20 16:23 Last Admin: 09/12/20 01:30 Dose: 2 tab Documented by: Pantoprazole Sodium (Pantoprazole 40 Mg Tab) 40 mg PO QAM [facility] Stop: 10/12/20 08:59 Rosuvastatin Calcium (Rosuvastatin Calcium 10 Mg Tab) 10 mg PO HS [facility] Stop: 10/11/20 20:59 Last Admin: 09/11/20 20:50 Dose: 10 mg Documented by: Spironolactone (Spironolactone 25 Mg Tab) 25 mg PO QAM [facility] Stop: 10/12/20 08:59 Warfarin Sodium (Warfarin Sod 5 Mg Tab) 5 mg PO DAILY@1500 [facility] Stop: 10/12/20 14:59
[2020-09-12 08:07] LABS: Basophils # (auto) 0.03 K/uL (0-0.2); Basophils % (auto) 0.3 %; Hematocrit (blood only) 30.9 % (37-47); Immature Granulocytes # (auto) 0.02 K/uL (0.00-0.02); Immature Granulocytes % (auto) 0.2 %; Lymphocytes # (auto) 1.88 K/uL (1.2-3.4); Lymphocytes % (auto) 19.4 %; Mean Corpuscular Hemoglobin 28.2 pg (25-34); Mean Corpuscular Hgb Conc 32.4 g/dL (32-36); Mean Platelet Volume 9.8 fL (7.4-10.4); Monocytes # (auto) 0.67 K/uL (0.11-0.59); Monocytes % (auto) 6.9 %; Neutrophils # (auto) 6.97 K/uL (1.4-6.5); Neutrophils % (auto) 72.2 %; Platelet Count 218 K/uL (130-400); RDW Coefficient of Variation 15.4 % (11.5-14.5); RDW Standard Deviation 49.3 fL (36.4-46.3); Red Blood Count 3.55 M/uL (4.2-5.4); White Blood Count 9.67 K/uL (4.8-10.8)
[2020-09-12 08:17] LABS: Prothrombin Time 10.5 Seconds (9.0-12.0)
[2020-09-12] MEDS: amLODIPine BESYLATE 5 MG TAB PO SCH (08:35)
[2020-09-12] MEDS: METOPROLOL TARTRATE 50 MG TAB PO SCH (08:36)
[2020-09-12] MEDS: SPIRONOLACTONE 25 MG TAB PO SCH ×2 (08:36→13:28)
[2020-09-12 08:37] LABS: Albumin Level 2.8 gm/dl (3.4-5.0); BUN Creatinine Ratio 24.9 (10-20); Creatinine Clr Calc Pharmacy 55.3 ml/min; Est GFR (African American) 60.9 ml/min; Est GFR (Non-African American) 52.6 ml/min; Potassium 4.5 mmol/L (3.5-5.1)
[2020-09-12] MEDS: INSULIN GLARGINE SOLOSTAR 100 UNITS/ML 3 ML PEN SC SCH (08:38)
[2020-09-12] MEDS: INSULIN ASPART 100 UNITS/ML 3 ML PEN SC SCH ×2 (08:38→12:19)
[2020-09-12 08:39] LABS: Albumin Globulin Ratio 0.8 (0.9-2); Bilirubin,Total 0.3 mg/dl (0.2-1); Globulin 3.5 gm/dl (2.5-4.0); Total Protein 6.3 gm/dl (6.4-8.2)
[2020-09-12 08:42] LABS: Estimated Average Glucose 120 mg/dl; Hemoglobin A1C 5.8 % (4.5-5.6)
[2020-09-12] MEDS ORDERED: PANTOprazole 40 MG TAB PO SCH (09:00)
[2020-09-12] MEDS ORDERED: MULTIVITAMIN TAB PO SCH (09:00)
[2020-09-12] MEDS ORDERED: AMIODARONE 200 MG TAB PO SCH (09:00)
[2020-09-12] MEDS ORDERED: Nursing to Pharmacy Communication SCH (09:15)
[2020-09-12] MEDS ORDERED: BUMETANIDE 1 MG TAB PO ONE (12:43)
--- NOTE | 2020-09-12 14:02 | Cardiology Progress Note ---
Date of Service September 12, 2020 Assessment & Plan (1) A-fib: (2) Diastolic dysfunction: (3) S/P panniculectomy: Patient with history of paroxysmal atrial fibrillation. Continue outpatient amiodarone 200 mg daily and Toprol tartrate for rhythm control strategy. Restart Coumadin 5 mg today, 3 PM. Continue dose as planned preoperatively, 5 mg daily, with exception of Sundays which she is to take 7.5 mg. Allow INR to come up slowly without bridge therapy in order to reduce risk of postoperative bleeding. Continue spironolactone 25 mg daily. I confirmed with the patient that she has been taking Bumex 1 mg by mouth daily in the morning at home, her last dose was on Wednesday of this week, as she had traveled on Wednesday, and had surgery on Wednesday. She can resume this tomorrow. Hemoglobin/hematocrit stable, blood pressure renal function stable. Stable for discharge from cardiology perspective. Admission and Anticipated Discharge Date Admission Date: September 11, 2020 Subjective Patient seen in cardiology follow-up. She remains in sinus rhythm on telemetry in the 50s. She notes that her arms and hands are mildly swollen bilaterally. Review of Systems Review of Systems: All systems reviewed & are unremarkable except as noted in HPI & below Physical Exam Physical Exam: Temp Pulse Resp BP Pulse Ox 36.6 C 64 16 156/81 H 97 09/12/20 13:01 09/12/20 13:01 09/12/20 13:01 09/12/20 13:01 09/12/20 13:01 Respiratory: normal respiratory effort, lungs clear to auscultation Cardiovascular: Rate/Rhythm: regular rhythm Heart Sounds: no murmur Extremities: + edema (Trace upper and lower extremity edema, chronic venous stasis changes of the) Gastrointestinal (Abdomen): Abdomen not examined Neurologic: PERRL, EOMI, accommodation nl, no face palsy, no dysarthria Results & Data ([facility]) Vital Signs (Past 12 Hours) Vital Signs Temp Pulse Pulse Resp BP BP Pulse Ox 09/12/20 13:01 36.6 C 64 16 156/81 H 129/64 97 09/12/20 11:30 36.6 C 64 16 156/81 H 97 09/12/20 07:31 60 09/12/20 07:10 36.8 C 61 20 124/63 99 09/12/20 03:52 36.8 C 61 20 131/72 95 Laboratory Results Cardiac Enzymes 09/12/20 Range/Units 07:58 AST 14 L (15-37) U/L Coagulation 09/12/20 Range/Units 07:58 PT 10.5 (9.0-12.0) Seconds CBC 09/12/20 Range/Units 07:58 WBC 9.67 (4.8-10.8) K/uL RBC 3.55 L (4.2-5.4) M/uL Hgb 10.0 L (12.0-16.0) g/dL Hct 30.9 L (37-47) % Plt Count 218 (130-400) K/uL Neut # (Auto) 6.97 H (1.4-6.5) K/uL Lymph # (Auto) 1.88 (1.2-3.4) K/uL [place] # (Auto) 0.67 H (0.11-0.59) K/uL Eos # (Auto) 0.10 (0-0.5) K/uL Baso # (Auto) 0.03 (0-0.2) K/uL Comprehensive Metabolic Panel 09/12/20 Range/Units 07:58 Sodium 137 (136-145) mmol/L Potassium 4.5 (3.5-5.1) mmol/L Chloride 107 (98-107) mmol/L Carbon Dioxide 25 (21-32) mmol/L BUN 27 H (7-18) mg/dl Creatinine 1.07 (0.6-1.2) mg/dl Glucose 138 H (70-99) mg/dl Calcium 9.0 (8.5-10.1) mg/dl AST 14 L (15-37) U/L ALT 20 (12-78) U/L Alkaline Phosphatase 76 (45-117) U/L Total Protein 6.3 L (6.4-8.2) gm/dl Albumin 2.8 L (3.4-5.0) gm/dl Intake and Output 09/11/20 09/12/20 09/12/20 22:59 06:59 14:59 Intake Total 450 / 3206 1256 / 3206 878.917 / 878.917 Output Total 430 / 895 190 / 895 75 / 75 Balance 2310 / 2310 803.917 / 803.917 Intake: IV 110 / 1166 1056 / 1166 678.917 / 678.917 Clindamycin 600 mg In 54 ml @ 54 / 54 100 mls/hr IV PREOP MONIKA Rx#: [id number] Clindamycin 900 mg In Dextrose 56 / 112 56 / 112 56 / 56 5% 50 ml @ 112 mls/hr IV Q8H MONIKA Rx#:[id number] D5w and 1/2Nss + 20Meq KCl 20 1000 / 1000 622.917 / 622.917 meq In 1,000 ml @ 125 mls/hr IV .Q8H MONIKA Rx#:[id number] Oral 340 / 540 200 / 540 200 / 200 Output: Urine Amount (Catheter) 375 / 675 150 / 675 Joseph/Indwelling 375 / 675 150 / 675 Drain Output 55 / 95 40 / 95 75 / 75 Abdomen BISI #1 15 / 25 10 / 25 20 / 20 Abdomen BISI #2 20 / 40 20 / 40 30 / 30 Abdomen BISI #3 20 / 30 10 / 30 25 / 25 Other: # Unmeasured Voids 2 Weight 120.8 kg 110.8 kg 110.8 kg Weight Measurement Method Standing Scale Built in [facility] Patient Weight 09/13/20 06:59 Weight 110.8 kg
[2020-09-12] MEDS ORDERED: WARFARIN SOD 5 MG TAB PO SCH (15:00)
--- NOTE | 2020-09-13 13:07 | Discharge Summary ---
Date of Service September 13, 2020 Admission HPI Per Admitting Provider This is a 70-year-old female who has significant past medical history of PAF chronic diastolic CHF bilateral lower extremity lymphedema, PAF anticoagulated on warfarin, T2DM, CKD stage III, hypothyroidism, EDYTA on CPAP, history of CVA, history of PUD, history of osteomyelitis who presents for elective panniculectomy by Dr. Thrasher. Of significance in February 2020 she presented to [facility] with severe progressive low back pain. Ultimately she was diagnosed with lumbar osteomyelitis. During hospitalization she was RVR. RASHID was performed which was negative for vegetation on left atrial appendage thrombus and therefore she underwent DCCV with successful cheondoism of sinus rhythm. She was then transitioned to oral amiodarone therapy which she had been on previously. She required long-term IV antibiotic therapy and received nonoperative care. She ultimately recovered from her osteomyelitis. Also significantly she was treated with an abdominal wall cellulitis that required surgical intervention which required wound VAC placement which was removed a few weeks ago. The patient had lost a significant amount of weight in the last few years with a max of 312 pounds 2018) most recent epic notes has been down to 259.7 pounds recently. She elected to undergo panniculectomy in hopes for improvement of quality of life and ability to ambulate and reduce chronic low back pain. Patient is on long-term warfarin secondary to atrial fibrillation but she does maintain sinus rhythm. Was held 5 days prior to procedure in coordination with anticoagulation clinic. Her procedure overall we nt well and she had EBL 125 mL. She had 3 BISI drains placed. During procedure she also underwent umbilical hernia repair with mesh placement by Dr. Zafar. Postoperatively she feels well without acute concerns. She denies fever, chills, sweats, lightheadedness, dizziness, chest pain, shortness of breath, cough, nausea, early& vomiting. She does complain of abdominal pain secondary to incisional tenderness. She has Joseph catheter in place and complains of urgency. Admission Exam Per Admitting Provider Please see pre-operative H & P. Principal Diagnosis Abdominal pannus Discharge Data Allergies Allergy/AdvReac Type Severity Reaction Status Date / Time Penicillins Allergy Intermediate URTICARIA; Verified 09/11/20 06:32 PER PT, CAN TAKE AMOXICILLIN erythromycin base AdvReac Mild GI UPSET Verified 09/11/20 06:32 Consultations 09/11/20 13:31 Consult Hospitalist Routine 09/11/20 16:24 Consult Cardiology Routine Procedures Performed Operation Date: 09/11/20 07:30 Actual Procedures p Panniculectomy(Not Applicable) - Ginger Thrasher MD s Umbilical Hernia Repair with Mesh(Not Applicable) - Pete Zafar DO, FACS Hospital Course (1) S/P panniculectomy: Juanpablo is a 70-year-old female with history of overhanging abdominal pannus and non-healing chronic open wound of the left abdomen. She is on chronic anticoagulation therapy. She was take to the OR and underwent panniculectomy. There were no intraoperative complications. Intraoperatively, 3 abdominal BISI drains were placed and 2 Preveena Plus wound vacs were placed. She was taken to recovery and transferred to med/surg telemetry for observation. Following completion of surgery, consultation to both [facility] Hospitalist and Dr. Foster, Cardiology, was placed. On POD #1, she was feeling well. Joseph cather was removed and patient was able to ambulate in her room without issue. She was able to void on her own prior to discharge. She tolerated a regular diet without issue. Patient's daily Coumadin therapy was resumed 24 hours post- op. Her Preveena wound vacs x 2 were functioning without issue. On exam, her vital signs were stable. Abdominal binder was intact with 3 BISI drains with serosang drainage. She was discharged to home with instructions to follow-up in our office in 1 day. Total Time Total Time Spent Total Time Spent (In Minutes): 5 Discharge Plan Discharge Items Patient Disposition: Home - Self-Care Reason For Visit: Abdominal Pannus Discharge Diagnosis: Abdominal Pannus Activity: As commented below Non-emergency contact: Surgeon Call non-emergency contact if: your pain is not controlled, your pain is concerning for you, your temperature is above 101.5 and your wound has increased redness Follow-up/Referrals: Micah Whitmore MD [Primary Care Provider] - (Date & Time 09/18/2020 11:20 AM Provider Micah Whitmore MD Department General Internal Medicine [facility] ) Diet: Carb Consistent or DM2 Addtl Attending Provider Instructions: ACTIVITY RECOMMENDATIONS: __Normal activities _X_No bending, lifting or straining __No driving _X_Driving allowed when you are off pain medications X_Walking permitted __You should have help at home for ___ days DRESSINGS: __No dressings required X__Keep dressings dry/in place until first office visit __Remove dressings ___ and leave dressings off __Apply ice ___ days __Remove dressings and reapply garment __Apply antibiotic ointment (Bacitracin, Neosporin, etc) to wounds 3-4 times/day for 10 days BATHING: _X_Keep dressings dry _X_Sponge bathing permitted, but please keep surgical area dry. __Showering permitted _X_No swimming, hot tubs or soaking in a tub MEDICATIONS: Resume previous medications unless instructed otherwise by your surgeon. You may resume your Coumadin therapy. _X_Do not use aspirin, Motrin, Advil or Ibuprofen as these may promote bleeding. Please use Tylenol. _X_Prescription(s) provided: Prescription for post-op antibiotic prescription sent to your pharmacy. Please begin this prescription today. OTHER INSTRUCTIONS: _X_Record drain output 2-3 times per day SPECIAL CARE INSTRUCTIONS: * It is normal to have a mild fever after surgery. If your temperature is higher than 101.5 degrees F, please call the office at [phone]. * Constipation is a typical side effect of pain medication. An inuc-ngi-vaydpsh stool softener will help relieve this. * Leaking around surgical drains may occur and should not cause concern. Sometimes these drains become clogged. If this happens, remove the bulb and milk the clot out of the tube, then replace the bulb. * Drainage from wounds after liposuction is normal and should be expected. Garments will become soiled. You should protect furniture and bedding. This drainage shou ld mostly subside within 2-3 days. Leave garments in place unless instructed to remove them. * If you have unusual drainage from a wound or are concerned you have an infection or have any questions or concerns, please call the office at [phone]. FOLLOW UP VISIT: If not already scheduled, please call the office, , when you return home after surgery to schedule an appointment to be seen in __1_ day. Pending Studies at Discharge: Yes Stand-Alone Forms: My [facility], Smoking Cessation Medications and DC Order Prescriptions: New clindamycin HCl 300 mg capsule 300 mg PO TID 10 Days Qty: 30 RF: 0 Continued allopurinol 100 mg tablet 200 mg PO HS RF: 0 multivitamin [Multiple Vitamins] tablet 1 tab PO HS RF: 0 omeprazole 20 mg capsule,delayed release(DR/EC) 20 mg PO QAM RF: 0 spironolactone 25 mg tablet 25 mg PO QAM RF: 0 levothyroxine 50 mcg capsule 50 mcg PO QAM RF: 0 bumetanide 1 mg tablet 0.5 - 1 mg PO QAM RF: 0 cholecalciferol (vitamin D3) 25 mcg (1,000 unit) capsule 1,000 unit PO QAM RF: 0 repaglinide 0.5 mg Tablet 0.5 mg PO TIDM RF: 0 rosuvastatin [Crestor] 10 mg Tablet 10 mg PO HS RF: 0 magnesium oxide 400 mg magnesium Capsule 400 mg PO QPM RF: 0 metoprolol tartrate 50 mg Tablet 50 mg PO BID Qty: 0 RF: 0 metformin 500 mg tablet extended release 24 hr 500 mg PO QAM RF: 0 amlodipine 5 mg Tablet 5 mg PO BID RF: 0 oxycodone 15 mg Tablet 15 mg PO QAM PRN (Reason: Severe Pain (Scale Score 7-10)) RF: 0 amiodarone 200 mg tablet 200 mg PO QAM RF: 0 warfarin 5 mg tablet 5 mg PO UD RF: 0 oxycodone 5 mg tablet 5 mg PO Q6H PRN (Reason: pain) RF: 0 acetaminophen 500 mg Tablet 1,000 mg PO TID PRN (Reason: Pain) RF: 0 docusate sodium [Colace] 100 mg Capsule 100 mg PO TID RF: 0 psyllium husk [Fiber (psyllium husk)] 0.52 gram Capsule 1.04 g PO BID RF: 0 arginine (L-arginine) 500 mg Powder In Packet 500 mg PO QAM RF: 0 Discontinued aspirin 81 mg tablet,chewable 81 mg PO HS RF: 0 Discharge Orders: Discharge Order (Routine); Ordered 09/12/20 Ordered By: Demetria Agosto Admission Data Admit Date/Time: 09/11/20 14:00 Attending Provider: Ginger Thrasher Admit Provider: Ginger Thrasher Primary Care Provider: Micah Whitmore Other Providers: Ingris Agosto ; Melissa Plasencia ; Hugo Walton ; Shirley Wilson ; Elizabeth Live ; Luz Marina Byrne ; Nguyen Do ; Lesly Ordoñez ; Jules Resendez ; Lucio Stinson ; Octavio Arita ; Samira Momin ; Elizabeth Feliz ; Skinny Kapoor ; Marilee Doty ; Florinda York ; Lon Betts ; Elidia Lopez ; Vashti Hayes ; Julieta Swift ; Ratna Montana I. ; Jorge Cline ; Guillaume Foster Other Interventions: Discharge Summary Assessment (RN) Last Done: 09/12/20 13:01 Coding Level of Care Code 95827 OBS Care - Discharge Diagnoses S/P panniculectomy Z98.890
[2020-09-17] MEDS ORDERED: LACTATED RINGER'S 1,000 ML IV SCH (06:00)
[2020-09-17] MEDS ORDERED: CLINDAMYCIN/D5W 600 MG/54 ML BAG IV SCH (06:00)
== END 2020-09-12 16:49 | disposition home or self-care (01) ==
LOC: 2N 06:01 → ASU 06:01

== ENCOUNTER 2021-03-10 15:52 | Inpatient (IN) ==
[2021-03-10] MEDS ORDERED: SODIUM CHLORIDE 0.9% 1000ML 500 ML IV ONE (16:22)
--- NOTE | 2021-03-10 16:24 | Emergency Department Note ---
Impression & Plan Hydronephrosis with renal and ureteral calculous obstruction, Sepsis ED Provider Note Name: Alex GRISSOM Age: 70 Sex: F Arrives Via: Walk-In Informant: Patient, Co-worker ED Provider: Vick Morgan MD Chief Complaint: Weakness Impression: As per Impressions above Medical Decision Makin yr old female with extensive PMH arrives with rapidly worsening weakness and fatigue today associated with left lower flank/back pain. Initial afebrile but given exam septic work-up initiated. Developed fever and given Tylenol and fluids. Vitals stable without hypotension and lactate returned with normal level. She is severe sepsis thus empiric abx started after cultures obtained. CT obtained reveals distal left ureteral stone and hydro. I had high concern for infected stone thus urology consulted while awaiting UA result. Of note UA sent early on but was lost for a while before being found and run. Hospitalist also consulted for management as patient will need to be hospitalized. She was evaluated many times and looked much better with mild hydration and tylenol po. Agreeable to treatment plan and taken to the OR for further management. Of note, patient with history of discitis years ago, though without midline back pain and findings elsewhere I suspect this is not the case at the moment. Prior Medical Record and Triage/Nursing Notes reviewed by Me Additional history obtained from chart Differentials:Renal colic, UTI, appendicitis, diverticulitis, mesenteric ischemia, aortic pathology, infections, inflammatory bowel disease, PUD, biliary pathology, as well as other pathologies. Vital Signs: reviewed and remarkable for febrile on recheck vitals Interventions: saline lock, nss bolus, vanco iv, cefepime iv, tyenol po Labs:Reviewed and remarkable for no significant abnormalities Imaging:See Below EKG:Per My Interpretation: Indication pre-opt: Afib 91 bpm, qtc 501. No Ectopy. No Ischemia. Compared to EKG 02/09/20, no significant changes. Cardiac/Tele Monitoring: Cardiac Monitoring: An Order was placed for continuous cardiac monitoring. The monitor shows a rate of 90 with a normal sinus rhythm. Consults:Dr Resendez Hospitalist, Dr Edwards Urology Plan: Disposition:Hospitalization. Condition: Good History of Present Illness:70 yr old female arrives for evaluation of weakness. Patient notes she developed left lower back pain, chills, and nausea on Wednesday. Symptoms lasted a few hours before resolving. Notes she felt tired throughout Wednesday (yesterday). Today symptoms gradually worsening. Associated weakness, confusion, fatigue, and increasing low back aching. Per her staff she is confused and not able to ambulate her normal self. Denies urinary burning. Associated chills though no measured fevers. Earlier she apparently shaking chills were so severe. No syncope, chest pain, sob, abdominal pain, leg swelling (beyond baseline), rashes, headache, neck pain/stiffness, nausea, vomiting nor other symptoms. She notes her blood sugars have been much higher today than usual. No falls, trauma, nor injuries. No medications prior to arrival. History of lumbar discitis many years ago which she states this feels much different, but it does feel somewhat like when she had a kidney stone a few years ago. ROS: See above HPI for pertinent positives & negatives. A total of 10 systems reviewed and were otherwise negative. Past Medical History:See Below Past Surgical History:See Below Family History:See Below Social History:See Below. 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 Home Medications:See Below Allergies:See Below Vitals:Blood Pressure: 186/71, Pulse 86, RR 19, T 36.9C, O2 95% on RA Physical Exam: GENERAL: Patient is tired/ill/dehydrated appearing and in mild distress. EYES: No scleral icterus, unremarkable pupils. ENT: Mucous membranes moist, no nasal congestion. NECK: No masses appreciated, nomeningismus, trachea is midline. RESPIRATORY: No dyspnea. Clear to auscultation and equal bilaterally. No wheeze, no rhonchi. CARDIOVASCULAR: Regular rate and rhythm.No murmurs, rubs, gallops appreciated. GASTROINTESTINAL: Abdomen soft, non-tender, no peritonitis.Bowel sounds positive.No masses appreciated. BACK: No midline tenderness, no CVA tenderness EXTREMITIES: Normal motion all extremities, no cyanosis, mild edema bilateral lower legs NEUROLOGIC: Alert and oriented, no acute motor or sensory deficits, no focal weakness, cranial nerves grossly intact. SKIN: No rash, no jaundice, no diaphoresis. PSYCH: Appropriate GCS: 15 ED Course: Times/Reassessments: stable, did become febrile though cultures already obtained thus abx begun Vick Morgan MD Past Med/Surg History Medical History A-fib Paroxysmal, Follows with Dr. Foster Anemia CKD stage 3 secondary to diabetes CVA (cerebral vascular accident) Silent > Old infarct found on remote CT imaging (dating back to at least 2018) Diastolic dysfunction DM II (diabetes mellitus, type II), controlled NIDDM Dyslipidemia Gastric ulcer due to Helicobacter pylori hx Gout hx Hx of basal cell carcinoma Hx of osteomyelitis Spine (02/2020) treated at [facility] with penitentiary antibiotics and oxycodone for pain management Hypertension Hypothyroidism Lymphedema Morbid obesity Osteoarthritis Sleep apnea CPAP T2DM (type 2 diabetes mellitus) Wound of abdomen Previous wound vac/debridement > evaluated by surgeon's office 08/27/20 ([facility]) noting "sizable wound of the left lower quadrant, 100% granulated, but quite deep in some areas. Some of the granulation is up to surface" without evidence of cellulitic change Surgical History H/O basal cell carcinoma excision H/O left knee surgery multiple knee arthroscopy on left H/O repair of rotator cuff right History of arthroplasty of left knee History of cardioversion RASHID with cardioversion (02/07/20): MAC sedation at [facility] History of carpal tunnel surgery History of esophagogastroduodenoscopy (EGD) History of umbilical hernia repair (09/11/20) Umbilical Hernia Repair with Mesh - Pete Zafar DO, FACS S/P debridement multiple abdominal debridements at [facility]. 08/2020 Status post Mohs surgery Family History Mother Diabetes Heart disease Father Hypertension Stroke Other No family history of adverse response to anesthesia No pertinent family history Social History Smoking Status: Never smoker Second Hand Exposure: No; Hx Alcohol Use: Yes Alcohol type: wine Hx Substance Use: No Preferred Language: Bermudian Communication Ability: Effective Hearing Ability: Normal Integration Software Developer Required: No Beliefs That Will Affect Care: None marital status: / Current Living Situation: Alone Current Living Situation Comment: currently living with daughter current occupational status: retired Feels Safe at Home: Yes Assistive Devices: Glasses and Walker Allergies Allergies Allergy/AdvReac Type Severity Reaction Status Date / Time Penicillins Allergy Intermediate URTICARIA; Verified 03/10/21 21:21 PER PT, CAN TAKE AMOXICILLIN erythromycin base AdvReac Mild GI UPSET Verified 03/10/21 21:21 Home Meds Home Medications Medication Instructions Recorded Confirmed allopurinol 100 mg tablet 200 mg PO HS tab 02/15/18 03/10/21 omeprazole 20 mg capsule,delayed 20 mg PO QAM 02/15/18 03/10/21 release spironolactone 25 mg tablet 25 mg PO QAM 02/15/18 03/10/21 magnesium oxide 400 mg PO QPM 02/03/20 03/10/21 repaglinide 0.5 mg tablet 0.5 mg PO TIDM 02/03/20 03/10/21 rosuvastatin 10 mg tablet (Crestor) 10 mg PO HS 02/03/20 03/10/21 bumetanide 1 mg tablet 1 mg PO QAM tab 06/20/20 03/10/21 cholecalciferol (vitamin D3) 25 1,000 unit PO QAM cap 06/20/20 03/10/21 mcg (1,000 unit) capsule metformin 500 mg tablet,extended 500 mg PO BID tab 06/20/20 03/10/21 release 24 hr amiodarone 200 mg tablet 200 mg PO QAM 09/04/20 03/10/21 amlodipine 5 mg tablet 5 mg PO BID 09/04/20 03/10/21 docusate sodium 100 mg capsule 100 mg PO BID 09/04/20 03/10/21 (Colace) warfarin 5 mg tablet 7.5 mg PO DAILY 09/04/20 03/10/21 levothyroxine 100 mcg tablet 100 mcg PO DAILY 03/10/21 03/10/21 multivitamin 1 tab PO DAILY 03/10/21 03/10/21 Previous Rx's Medication Instructions Recorded metoprolol tartrate 50 mg tablet 50 mg PO BID #0 tab 02/09/20 Results & Data (ED) Vital Signs Vital Signs - 24 hr 03/10/21 15:56 03/10/21 17:36 03/10/21 17:53 Temperature 36.9 C 39.8 C H Temperature Source Temporal Artery Scan Oral Pulse Rate 86 105 H Pulse Rate from SpO2 Sensor Respiratory Rate 19 34 H Respiratory Effort / Characteristics Non-Labored Spontaneous Respiratory Depth Normal Respiratory Pattern Regular Blood Pressure 186/71 H 180/86 H Blood Pressure Mean 109 117 Pulse Oximetry 95 Oxygen Delivery Method Room Air Sepsis Recent Fever Within 48 Hours No Sepsis New/Unexplained Change in Mental Status N/A Sepsis Action Taken by Nursing No Action Required 03/10/21 18:00 03/10/21 18:30 03/10/21 19:00 Temperature Temperature Source Pulse Rate 107 H 108 H 105 H Pulse Rate from SpO2 Sensor 114 H Respiratory Rate 39 H 54 H 35 H Respiratory Effort / Characteristics Respiratory Depth Respiratory Pattern Blood Pressure 196/97 H Blood Pressure Mean 130 Pulse Oximetry 95 Oxygen Delivery Method Sepsis Recent Fever Within 48 Hours Sepsis New/Unexplained Change in Mental Status Sepsis Action Taken by Nursing 03/10/21 19:47 03/10/21 20:00 03/10/21 20:30 Temperature Temperature Source Pulse Rate 100 H 94 H 95 H Pulse Rate from SpO2 Sensor 94 H 93 H Respiratory Rate 24 28 H 27 H Respiratory Effort / Characteristics Respiratory Depth Respiratory Pattern Blood Pressure 146/69 H 142/63 H 147/54 H Blood Pressure Mean 94 89 85 Pulse Oximetry 93 94 95 Oxygen Delivery Method Sepsis Recent Fever Within 48 Hours Sepsis New/Unexplained Change in Mental Status Sepsis Action Taken by Nursing 03/10/21 21:00 03/10/21 21:30 03/10/21 22:00 Temperature Temperature Source Pulse Rate 87 79 77 Pulse Rate from SpO2 Sensor 86 82 77 Respiratory Rate 28 H 25 H 25 H Respiratory Effort / Characteristics Respiratory Depth Respiratory Pattern Blood Pressure 153/71 H 151/68 H 149/69 H Blood Pressure Mean 98 95 95 Pulse Oximetry 95 92 90 Oxygen Delivery Method Sepsis Recent Fever Within 48 Hours Sepsis New/Unexplained Change in Mental Status Sepsis Action Taken by Nursing Laboratory Data Result diagrams: 03/10/21 17:13 03/10/21 18:25 Lab Results 03/10/21 03/10/21 03/10/21 Range/Units 17:13 17:13 17:13 WBC 10.79 (4.8-10.8) K/uL RBC 4.39 (4.2-5.4) M/uL Hgb 12.5 (12.0-16.0) g/dL Hct 38.4 (37-47) % MCV 87.5 (80-100) fL MCH 28.5 (25-34) pg MCHC 32.6 (32-36) g/dL RDW Std Deviation 48.9 H (36.4-46.3) fL RDW Coeff of Yvette 15.2 H (11.5-14.5) % Plt Count 169 (130-400) K/uL MPV 10.6 H (7.4-10.4) fL Immature Gran % (Auto) 0.3 % Neut % (Auto) 86.4 % Lymph % (Auto) 7.8 % Vance % (Auto) 5.4 % Eos % (Auto) 0.0 % Baso % (Auto) 0.1 % Neut # (Auto) 9.33 H (1.4-6.5) K/uL Lymph # (Auto) 0.84 L (1.2-3.4) K/uL Vance # (Auto) 0.58 (0.11-0.59) K/uL Eos # (Auto) 0.00 (0-0.5) K/uL Baso # (Auto) 0.01 (0-0.2) K/uL Immature Gran # (Auto) 0.03 H (0.00-0.02) K/uL PT (9.0-12.0) Seconds INR (0.9-1.1) Sodium 134 L (136-145) mmol/L Potassium (3.5-5.1) mmol/L Chloride 102 (98-107) mmol/L Carbon Dioxide 21 (21-32) mmol/L Anion Gap 11.0 (3-11) BUN 30 H (7-18) mg/dl Creatinine 1.26 H (0.6-1.2) mg/dl Est Cr Clr Drug Dosing Not Reportable Est GFR ( Amer) 50.0 ml/min Est GFR (Non-Af Amer) 43.1 ml/min BUN/Creatinine Ratio 24.0 H (10-20) Glucose 146 H (70-99) mg/dl Lactate (0.4-2.0) mmol/L Calcium 9.8 (8.5-10.1) mg/dl Magnesium (1.8-2.4) mg/dl Total Bilirubin 0.6 (0.2-1) mg/dl Direct Bilirubin (0-0.2) mg/dl AST (15-37) U/L ALT 62 (12-78) U/L Alkaline Phosphatase 123 H (45-117) U/L Troponin I < 0.015 (0-0.045) ng/ml C-Reactive Protein 21.90 H (0-0.29) mg/dl Total Protein 8.6 H (6.4-8.2) gm/dl Albumin 3.3 L (3.4-5.0) gm/dl Lipase 122 (73-393) U/L Procalcitonin 14.20 H (0-0.5) ng/ml Urine Color Urine Appearance (Clear) Urine pH (4.5-7.5) Ur Specific [place] (1.000-1.030) Urine Protein (Negative) Urine Glucose (UA) (Negative) Urine Ketones (Negative) Urine Blood (Negative) Urine Nitrite (Negative) Urine Bilirubin (Negative) Urine Urobilinogen (Negative) Ur Leukocyte Esterase (Negative) Urine WBC (Auto) (0-5) /hpf Urine RBC (Auto) (0-4) /hpf U Hyaline Cast (Auto) (0-5) /lpf U Epithel Cells (Auto) (0-5) /lpf Urine Bacteria (Auto) (Negative) Urine Yeast COVID-19 Eval Order SARS-CoV-2 (PCR) (Negative) 03/10/21 03/10/21 03/10/21 Range/Units 17:22 18:25 Unknown WBC (4.8-10.8) K/uL RBC (4.2-5.4) M/uL Hgb (12.0-16.0) g/dL Hct (37-47) % MCV (80-100) fL MCH (25-34) pg MCHC (32-36) g/dL RDW Std Deviation (36.4-46.3) fL RDW Coeff of Yvette (11.5-14.5) % Plt Count (130-400) K/uL MPV (7.4-10.4) fL Immature Gran % (Auto) % Neut % (Auto) % Lymph % (Auto) % Vance % (Auto) % Eos % (Auto) % Baso % (Auto) % Neut # (Auto) (1.4-6.5) K/uL Lymph # (Auto) (1.2-3.4) K/uL Vance # (Auto) (0.11-0.59) K/uL Eos # (Auto) (0-0.5) K/uL Baso # (Auto) (0-0.2) K/uL Immature Gran # (Auto) (0.00-0.02) K/uL PT (9.0-12.0) Seconds INR (0.9-1.1) Sodium (136-145) mmol/L Potassium 3.4 L (3.5-5.1) mmol/L Chloride (98-107) mmol/L Carbon Dioxide (21-32) mmol/L Anion Gap (3-11) BUN (7-18) mg/dl Creatinine (0.6-1.2) mg/dl Est Cr Clr Drug Dosing Est GFR ( Amer) ml/min Est GFR (Non-Af Amer) ml/min BUN/Creatinine Ratio (10-20) Glucose (70-99) mg/dl Lactate 1.9 (0.4-2.0) mmol/L Calcium (8.5-10.1) mg/dl Magnesium 1.7 L (1.8-2.4) mg/dl Total Bilirubin (0.2-1) mg/dl Direct Bilirubin (0-0.2) mg/dl AST 40 H (15-37) U/L ALT (12-78) U/L Alkaline Phosphatase (45-117) U/L Troponin I (0-0.045) ng/ml C-Reactive Protein (0-0.29) mg/dl Total Protein (6.4-8.2) gm/dl Albumin (3.4-5.0) gm/dl Lipase (73-393) U/L Procalcitonin (0-0.5) ng/ml Urine Color Urine Appearance (Clear) Urine pH (4.5-7.5) Ur Specific [place] (1.000-1.030) Urine Protein (Negative) Urine Glucose (UA) (Negative) Urine Ketones (Negative) Urine Blood (Negative) Urine Nitrite (Negative) Urine Bilirubin (Negative) Urine Urobilinogen (Negative) Ur Leukocyte Esterase (Negative) Urine WBC (Auto) (0-5) /hpf Urine RBC (Auto) (0-4) /hpf U Hyaline Cast (Auto) (0-5) /lpf U Epithel Cells (Auto) (0-5) /lpf Urine Bacteria (Auto) (Negative) Urine Yeast COVID-19 Eval Order Covid19 at [facility] SARS-CoV-2 (PCR) (Negative) 03/10/21 03/10/21 03/10/21 Range/Units Unknown Unknown Unknown WBC (4.8-10.8) K/uL RBC (4.2-5.4) M/uL Hgb (12.0-16.0) g/dL Hct (37-47) % MCV (80-100) fL MCH (25-34) pg MCHC (32-36) g/dL RDW Std Deviation (36.4-46.3) fL RDW Coeff of Yvette (11.5-14.5) % Plt Count (130-400) K/uL MPV (7.4-10.4) fL Immature Gran % (Auto) % Neut % (Auto) % Lymph % (Auto) % Vance % (Auto) % Eos % (Auto) % Baso % (Auto) % Neut # (Auto) (1.4-6.5) K/uL Lymph # (Auto) (1.2-3.4) K/uL Vance # (Auto) (0.11-0.59) K/uL Eos # (Auto) (0-0.5) K/uL Baso # (Auto) (0-0.2) K/uL Immature Gran # (Auto) (0.00-0.02) K/uL PT 15.6 H (9.0-12.0) Seconds INR 1.6 H (0.9-1.1) Sodium (136-145) mmol/L Potassium (3.5-5.1) mmol/L Chloride (98-107) mmol/L Carbon Dioxide (21-32) mmol/L Anion Gap (3-11) BUN (7-18) mg/dl Creatinine (0.6-1.2) mg/dl Est Cr Clr Drug Dosing Est GFR ( Amer) ml/min Est GFR (Non-Af Amer) ml/min BUN/Creatinine Ratio (10-20) Glucose (70-99) mg/dl Lactate (0.4-2.0) mmol/L Calcium (8.5-10.1) mg/dl Magnesium (1.8-2.4) mg/dl Total Bilirubin (0.2-1) mg/dl Direct Bilirubin (0-0.2) mg/dl AST (15-37) U/L ALT (12-78) U/L Alkaline Phosphatase (45-117) U/L Troponin I (0-0.045) ng/ml C-Reactive Protein (0-0.29) mg/dl Total Protein (6.4-8.2) gm/dl Albumin (3.4-5.0) gm/dl Lipase (73-393) U/L Procalcitonin (0-0.5) ng/ml Urine Color Yellow Urine Appearance Clear (Clear) Urine pH 6.5 (4.5-7.5) Ur Specific [place] 1.014 (1.000-1.030) Urine Protein 2+ H (Negative) Urine Glucose (UA) Negative (Negative) Urine Ketones Negative (Negative) Urine Blood 2+ H (Negative) Urine Nitrite Negative (Negative) Urine Bilirubin Negative (Negative) Urine Urobilinogen Negative (Negative) Ur Leukocyte Esterase Trace H (Negative) Urine WBC (Auto) 10-30 H (0-5) /hpf Urine RBC (Auto) 5-10 H (0-4) /hpf U Hyaline Cast (Auto) 1-5 (0-5) /lpf U Epithel Cells (Auto) >30 H (0-5) /lpf Urine Bacteria (Auto) 1+ H (Negative) Urine Yeast Not Reportable COVID-19 Eval Order SARS-CoV-2 (PCR) NEGATIVE (Negative) Administered Medications Potassium Chloride 40 meq/ (Sodium Chloride) 1,020 mls @ 75 mls/hr IV .[id number] ONE Stop: 03/11/21 11:14 Last Admin: 03/10/21 22:38 Dose: Not Given Documented by: [id number] Discontinued Medications Acetaminophen (Acetaminophen 500 Mg Tab) 1,000 mg PO NOW STA Stop: 03/10/21 18:15 Last Admin: 03/10/21 18:31 Dose: 1,000 mg Documented by: [id number] Sodium Chloride (Nss 1000ml) 500 mls @ 999 mls/hr IV .Q31M ONE Stop: 03/10/21 16:52 Last Admin: 03/10/21 18:07 Dose: 999 mls/hr Documented by: [id number] Cefepime HCl (Maxipime) 2,000 mg in 20 mls @ 5 mls/min IV NOW STA; Protocol Stop: 03/10/21 18:30 Last Admin: 03/10/21 19:20 Dose: 5 mls/min Documented by: [id number] Vancomycin HCl 2,000 mg/ (Sodium Chloride) 540 mls @ 200 mls/hr IV NOW ONE Stop: 03/10/21 20:56 Last Admin: 03/10/21 20:03 Dose: 200 mls/hr Documented by: [id number] Magnesium Sulfate/Dextrose (Magnesium Sulfate / D5w) 1 gm in 100 mls @ 50 mls /hr IV 2145 ONE Stop: 03/10/21 23:44 Last Admin: 03/10/21 22:15 Dose: 50 mls/hr Documented by: [id number] Potassium Chloride (Potassium Chloride Crtab 20 Meq Tabcr) 40 meq PO NOW STA Stop: 03/10/21 21:06 Last Admin: 03/10/21 21:43 Dose: Not Given Documented by: [id number] Tamsulosin HCl (Tamsulosin Hcl 0.4 Mg Cap) 0.4 mg PO NOW ONE Stop: 03/10/21 21:04 Last Admin: 03/10/21 21:44 Dose: Not Given Documented by: [id number] Imaging Data Radiologist's Impression: Abdomen/Pelvis CT 03/10/21 16:22 CT abd pelvis wo con CLINICAL HISTORY: left lower back pain, fevers, TECHNIQUE: Helical axial images of the abdomen and pelvis were obtained. Automated dose lowering techniques and/or adjustment according to patient size were utilized for this exam. This exam was performed without intravenous contrast. COMPARISON: None available at the time of this dictation. FINDINGS: Exam is limited by patient body habitus. Lower chest: Mosaic attenuation is noted in the visualized lungs. Liver: Unremarkable. No focal lesions are seen. Gallbladder and biliary tree: No calcified gallstones. Normal caliber wall. No intra- or extrahepatic biliary ductal dilation. Pancreas: Unremarkable, no focal lesions. Spleen: Splenule is incidentally noted. Adrenals: Unremarkable. Kidneys and ureters: There is mild left hydronephrosis. Although evaluation is limited, there is suggestion of obstructive left ureterovesicular junction stone measuring 3 mm. Bladder: Unremarkable. Reproductive organs: Unremarkable. Bowel: Unremarkable. Lymph nodes Retroperitoneal: Unremarkable. Mesenteric: Unremarkable. Pelvic: Unremarkable. Peritoneum: Normal Vessels: Atherosclerotic calcifications are seen. Abdominal wall: Unremarkable. Bones: Severe degenerative changes in the lumbar spine. Levoscoliosis is noted. IMPRESSION: Limited exam due to patient body habitus. There is suggestion of obstructive left ureterovesicular junction stone resulting hydronephrosis. ACT 112: Negative or not required by law. Electronically signed by: Tiburcio Casey M.D. 03/10/2021 7:54 PM Chest X-Ray 03/10/21 16:23 XR chest 1V portable CLINICAL HISTORY: illness, weakness TECHNIQUE: Single frontal radiograph of the chest was obtained. Comparison: Comparison is made to chest one view 02/03/2020 FINDINGS: No lines and tubes are seen. Cardiomegaly is noted. The lungs are clear. No evidence of pleural effusion or pneumothorax. IMPRESSION: No acute chest disease. ACT 112: Negative or not required by law. Electronically signed by: Tiburcio Casey M.D. 03/10/2021 6:23 PM Discharge Plan Visit Data Chief Complaint: Back Injury/Pain Stated Complaint: BACK PAIN, NAUSEA ED Provider: Vick Morgan Discharge Problem: Hydronephrosis with renal and ureteral calculous obstruction, Sepsis Discharge Instructions Interventions: ED Discharge Assessment Last Done: 03/10/21 23:41 Forms Stand Alone Forms: [facility] Prescriptions Prescriptions: No Action allopurinol 100 mg tablet 200 mg PO HS RF: 0 omeprazole 20 mg capsule,delayed release(DR/EC) 20 mg PO QAM RF: 0 spironolactone 25 mg tablet 25 mg PO QAM RF: 0 bumetanide 1 mg tablet 1 mg PO QAM RF: 0 cholecalciferol (vitamin D3) 25 mcg (1,000 unit) capsule 1,000 unit PO QAM RF: 0 repaglinide 0.5 mg Tablet 0.5 mg PO TIDM RF: 0 rosuvastatin [Crestor] 10 mg Tablet 10 mg PO HS RF: 0 magnesium oxide 400 mg magnesium Capsule 400 mg PO QPM RF: 0 metoprolol tartrate 50 mg Tablet 50 mg PO BID Qty: 0 RF: 0 metformin 500 mg tablet extended release 24 hr 500 mg PO BID RF: 0 amlodipine 5 mg Tablet 5 mg PO BID RF: 0 amiodarone 200 mg tablet 200 mg PO QAM RF: 0 warfarin 5 mg tablet 7.5 mg PO DAILY RF: 0 docusate sodium [Colace] 100 mg Capsule 100 mg PO BID RF: 0 multivitamin Tablet 1 tab PO DAILY RF: 0 levothyroxine 100 mcg Tablet 100 mcg PO DAILY RF: 0 Referrals Referrals: Micah Whitmore MD [Primary Care Provider] - Discharge Problem: Sepsis Qualifiers: Sepsis type: sepsis due to unspecified organism Sepsis acute organ dysfunction status: without acute organ dysfunction Qualified Code(s): A41.9 - Sepsis, unspecified organism
[2021-03-10 17:39] LABS: Basophils # (auto) 0.01 K/uL (0-0.2); Basophils % (auto) 0.1 %; Hematocrit (blood only) 38.4 % (37-47); Hemoglobin 12.5 g/dL (12.0-16.0); Immature Granulocytes # (auto) 0.03 K/uL (0.00-0.02); Immature Granulocytes % (auto) 0.3 %; Lymphocytes # (auto) 0.84 K/uL (1.2-3.4); Lymphocytes % (auto) 7.8 %; Mean Corpuscular Hemoglobin 28.5 pg (25-34); Mean Corpuscular Hgb Conc 32.6 g/dL (32-36); Mean Corpuscular Volume 87.5 fL (80-100); Mean Platelet Volume 10.6 fL (7.4-10.4); Monocytes # (auto) 0.58 K/uL (0.11-0.59); Monocytes % (auto) 5.4 %; Neutrophils # (auto) 9.33 K/uL (1.4-6.5); Neutrophils % (auto) 86.4 %; Platelet Count 169 K/uL (130-400); RDW Coefficient of Variation 15.2 % (11.5-14.5); RDW Standard Deviation 48.9 fL (36.4-46.3); Red Blood Count 4.39 M/uL (4.2-5.4); White Blood Count 10.79 K/uL (4.8-10.8)
[2021-03-10 18:14] LABS: Alanine Aminotransferase 62 U/L (12-78); Albumin Level 3.3 gm/dl (3.4-5.0); Alkaline Phosphatase 123 U/L (45-117); Bilirubin,Total 0.6 mg/dl (0.2-1); Blood Urea Nitrogen 30 mg/dl (7-18); Calcium 9.8 mg/dl (8.5-10.1); Carbon Dioxide 21 mmol/L (21-32); Chloride 102 mmol/L (98-107); Est GFR (Non-African American) 43.1 ml/min; Glucose 146 mg/dl (70-99); Lipase 122 U/L (73-393); Sodium 134 mmol/L (136-145); Total Protein 8.6 gm/dl (6.4-8.2); Troponin I < 0.015 ng/ml (0-0.045)
[2021-03-10] MEDS ORDERED: ACETAMINOPHEN 500 MG TAB PO STA (18:14)
--- NOTE | 2021-03-10 18:24 | XRay Report ---
XR chest 1V portable CLINICAL HISTORY: illness, weakness TECHNIQUE: Single frontal radiograph of the chest was obtained. Comparison: Comparison is made to chest one view 02/03/2020 FINDINGS: No lines and tubes are seen. Cardiomegaly is noted. The lungs are clear. No evidence of pleural effus ion or pneumothorax. IMPRESSION: No acute chest disease. ACT 112: Negative or not required by law. Electronically signed by: Tiburcio Casey M.D. 03/10/2021 6:23 PM
[2021-03-10] MEDS ORDERED: VANCOMYCIN HCL 2,000 MG in SODIUM CHLORIDE 0.9% 500 ML IV ONE (18:27)
[2021-03-10] MEDS ORDERED: CEFEPIME 2,000 MG/20 ML VIAL IV STA (18:27)
[2021-03-10] MEDS ORDERED: VANCOMYCIN CONSULT ACTIVE PRN (18:27)
[2021-03-10 18:50] LABS: Potassium 3.4 mmol/L (3.5-5.1)
[2021-03-10 18:55] LABS: Magnesium 1.7 mg/dl (1.8-2.4)
--- NOTE | 2021-03-10 19:56 | CT Scan Report ---
CT abd pelvis wo con CLINICAL HISTORY: left lower back pain, fevers, TECHNIQUE: Helical axial images of the abdomen and pelvis were obtained. Automated dose lowering tech niques and/or adjustment according to patient size were utilized for this exam. This exam was perfor med without intravenous contrast. COMPARISON: None available at the time of this dictation. FINDINGS: Exam is limited by patient body habitus. Lower chest: Mosaic attenuation is noted in the visualized lungs. Liver: Unremarkable. No focal lesions are seen. Gallbladder and biliary tree: No calcified gallstones. Normal caliber wall. No intra- or extrahepatic biliary ductal dilation. Pancreas: Unremarkable, no focal lesions. Spleen: Splenule is incidentally noted. Adrenals: Unremarkable. Kidneys and ureters: There is mild left hydronephrosis. Although evaluation is limited, there is sugg estion of obstructive left ureterovesicular junction stone measuring 3 mm. Bladder: Unremarkable. Reproductive organs: Unremarkable. Bowel: Unremarkable. Lymph nodes Retroperitoneal: Unremarkable. Mesenteric: Unremarkable. Pelvic: Unremarkable. Peritoneum: Normal Vessels: Atherosclerotic calcifications are seen. Abdominal wall: Unremarkable. Bones: Severe degenerative changes in the lumbar spine. Levoscoliosis is noted. IMPRESSION: Limited exam due to patient body habitus. There is suggestion of obstructive left ureterovesicular ju nction stone resulting hydronephrosis. ACT 112: Negative or not required by law. Electronically signed by: Tiburcio Casey M.D. 03/10/2021 7:54 PM
[2021-03-10 20:08] LABS: Appearance Urine Clear (Clear); Bacteria Urine Automated 1+ (Negative); Bilirubin Urine Negative (Negative); Blood Urine 2+ (Negative); Color Urine Yellow; Epithelial Cell Urine Auto >30 /lpf (0-5); Glucose Urine UA Negative (Negative); Ketones Urine Negative (Negative); Leukocyte Esterase Urine Trace (Negative); Nitrite Urine Negative (Negative); Protein Urine 2+ (Negative); Specific Gravity Urine 1.014 (1.000-1.030); Urobilinogen Urine Negative (Negative); pH Urine 6.5 (4.5-7.5)
--- NOTE | 2021-03-10 20:55 | Urology Consultation ---
Date of Consultation March 10, 2021 Assessment & Plan (1) Nephrolithiasis: Patient is being admitted on the hospitalist service. We recommend proceeding as follows: There is concern that patient is in the early stages of sepsis from urinary source. We will therefore take her to the operating room this evening for cystoscopy with possible ureteral stent placement. Recommend keeping the patient n.p.o. until after cystoscopy Continue IV fluids Continue broad-spectrum antibiotics. Patient has received vancomycin and cefepime in the emergency department Urine culture is pending. Antibiotics can be tailored based on the results of this Consideration can be given to initiating Flomax for expulsive therapy As noted a Covid test has been performed and is noted to be negative Additional recommendations were made based on operative findings and the patient's clinical course as it unfolds The above plan was discussed with Dr. Edwards the attending urologist and Dr. James the attending hospitalist. ATTENDING NOTE: Independently reviewed, interviewed, examined, and assessed. Risks and benefits discussed at length for procedure. These include bleeding, infection, injury to surrounding tissues or organs, and risks associated with anesthesia. Patient states understanding and agrees to proceed. Will sign consent and proceed. Plan for cystoscopy with possible left stone treatment and stent placement. 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 The patient says that 2 days ago she developed some left flank pain with associated fevers and shakes. She said over 24. Her symptoms remitted only to return today. She said her symptoms were more severe with left-sided flank pain that radiated slightly to the front of her abdomen. She had associated nausea vomiting. She also notes fevers as well as rigors. She denies any hematuria or dysuria but does note urinary frequency. Patient says that she has had kidney stones in the past but she cannot remember which side, however she notes that she was able to pass the stones without cystoscopic intervention. She does not note any modifying factors to her symptoms other than antibiotics and pain medicine that was administered in the emergency department. Her last oral intake was earlier this morning so she notes it has been in excess of 6 to 8 hours since she has eaten or drank anything. In the emergency department patient had labs and imaging which independently reviewed. A CBC revealed white blood cell count, hemoglobin, hematocrit, and platelet count were all within normal range. Chemistry profile showed sodium was 134 and her potassium was 3.4. Her BUN and creatinine were 31.26. Lactic acid was normal at 1.9. A troponin was noted to be negative. An EKG was performed that did not show any acute ischemic changes. Procalcitonin was elevated at 14.2. Urinalysis revealed clear urine which was negative for nitrites. She was noted to have trace leukocyte esterase. There were 10-30 white blood cells per high-power field and 1+ bacteria on the study. A chest x- ray was performed and was negative for pneumonia. A Covid test was performed and was noted to be negative. A CT scan of the abdomen and pelvis were performed. There is suggestion of a 3 mm kidney stone at the ureterovesical junction resulting in hydronephrosis and obstruction. I did discuss the patient's activities of daily living with her. She says that she leads an active lifestyle practicing at a eeler a few times a week. She does note that she can walk up steps but uses a walker and railings for support as she has low back problems that limit her mobility. She denies any chest pain or shortness of breath with her activities of daily living. At the time my interview she was resting in bed. She did note some clinical improvement with the modalities that have been initiated in the emergency department and she was in no distress. Allergies Allergy/AdvReac Type Severity Reaction Status Date / Time Penicillins Allergy Intermediate URTICARIA; Verified 03/10/21 21:21 PER PT, CAN TAKE AMOXICILLIN erythromycin base AdvReac Mild GI UPSET Verified 03/10/21 21:21 Home Medications Medication Instructions Recorded Confirmed Type allopurinol 100 mg tablet 200 mg PO HS tab 02/15/18 03/10/21 History omeprazole 20 mg capsule,delayed 20 mg PO QAM 02/15/18 03/10/21 History release spironolactone 25 mg tablet 25 mg PO QAM 02/15/18 03/10/21 History magnesium oxide 400 mg PO QPM 02/03/20 03/10/21 History repaglinide 0.5 mg tablet 0.5 mg PO TIDM 02/03/20 03/10/21 History rosuvastatin 10 mg tablet (Crestor) 10 mg PO HS 02/03/20 03/10/21 History metoprolol tartrate 50 mg tablet 50 mg PO BID #0 tab 02/09/20 03/10/21 Rx bumetanide 1 mg tablet 1 mg PO QAM tab 06/20/20 03/10/21 History cholecalciferol (vitamin D3) 25 1,000 unit PO QAM cap 06/20/20 03/10/21 History mcg (1,000 unit) capsule metformin 500 mg tablet,extended 500 mg PO BID tab 06/20/20 03/10/21 History release 24 hr amiodarone 200 mg tablet 200 mg PO QAM 09/04/20 03/10/21 History amlodipine 5 mg tablet 5 mg PO BID 09/04/20 03/10/21 History docusate sodium 100 mg capsule 100 mg PO BID 09/04/20 03/10/21 History (Colace) warfarin 5 mg tablet 7.5 mg PO DAILY 09/04/20 03/10/21 History levothyroxine 100 mcg tablet 100 mcg PO DAILY 03/10/21 03/10/21 History multivitamin 1 tab PO DAILY 03/10/21 03/10/21 History Patient History Medical History A-fib Paroxysmal, Follows with Dr. Foster Anemia CKD stage 3 secondary to diabetes CVA (cerebral vascular accident) Silent > Old infarct found on remote CT imaging (dating back to at least 2017) Diastolic dysfunction DM II (diabetes mellitus, type II), controlled NIDDM Dyslipidemia Gastric ulcer due to Helicobacter pylori hx Gout hx Hx of basal cell carcinoma Hx of osteomyelitis Spine (02/2020) treated at [facility] with longterm antibiotics and oxycodone for pain management Hypertension Hypothyroidism Lymphedema Morbid obesity Osteoarthritis Sleep apnea CPAP T2DM (type 2 diabetes mellitus) Wound of abdomen Previous wound vac/debridement > evaluated by surgeon's office 08/27/20 ([facility]) noting "sizable wound of the left lower quadrant, 100% granulated, but quite deep in some areas. Some of the granulation is up to surface" without evid ence of cellulitic change Surgical History H/O basal cell carcinoma excision H/O left knee surgery multiple knee arthroscopy on left H/O repair of rotator cuff right History of arthroplasty of left knee History of cardioversion RASHID with cardioversion (02/07/20): MAC sedation at [facility] History of carpal tunnel surgery History of esophagogastroduodenoscopy (EGD) History of umbilical hernia repair (09/11/20) Umbilical Hernia Repair with Mesh - Pete Zafar DO, FACS S/P debridement multiple abdominal debridements at [facility]. 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 Beliefs That Will Affect Care: None marital status: / Current Living Situation: Alone Current Living Situation Comment: currently living with daughter current occupational status: retired Feels Safe at Home: Yes Assistive Devices: Glasses and Walker Review of Systems Constitutional: + fever, + chills and + sweats Eyes: no diplopia Ear, Nose, Mouth, Throat: no ear pain Respiratory: no cough and no dyspnea Cardiovascular: no chest pain Gastrointestinal: + abdominal pain, + nausea and + vomiting Genitourinary: + urinary frequency and + flank pain (Left-sided); no dysuria and no hematuria Musculoskeletal: No calf tenderness Integumentary: no rash Neurologic: no localized weakness Physical Exam Constitutional: well developed and well nourished; no acute distress Eyes: no conjunctival abnormality ENMT: Ears: no hearing impairment Mouth: no oropharynx abnormality Neck: trachea midline Respiratory: normal respiratory effort; no respiratory distress and no labored breathing Cardiovascular: Rate/Rhythm: regular rate and regular rhythm Gastrointestinal (Abdomen): Abdomen soft, nontender, nondistended. No pain with palpation. Musculoskeletal: No calf tenderness. Skin: no rashes Neurologic: moves all extremities Psychiatric: A+Ox3, euthymic affect Genitourinary: + CVA tenderness (Left-sided CVA tenderness noted to percussion.) Results & Data ([facility]) Vital Signs (Past 12 Hours) Vital Signs Temp Pulse Resp BP Pulse Ox 03/10/21 19:47 100 H 24 146/69 H 93 03/10/21 19:00 105 H 35 H 196/97 H 03/10/21 18:30 108 H 54 H 03/10/21 18:00 107 H 39 H 95 03/10/21 17:53 39.8 C H 03/10/21 17:36 105 H 34 H 180/86 H 03/10/21 15:56 36.9 C 86 19 186/71 H 95 PG Care Time/CCT Total # of Minutes Spent Total Time Spent with Patient: Total time spent is greater than 50% in coordination of care (as documented) at patient's floor/unit and/or counseling patient: Coding Level of Care Code 63166 Inpt Consult Level 5 Diagnoses Nephrolithiasis N20.0
[2021-03-10] MEDS ORDERED: TAMSULOSIN HCL 0.4 MG CAP PO ONE (21:03)
[2021-03-10] MEDS ORDERED: POTASSIUM CHLORIDE CRTAB 20 MEQ TABCR PO STA (21:05)
--- NOTE | 2021-03-10 21:09 | Anesthesiology Consultation ---
Date of Service March 10, 2021 Assessment & Plan (1) Encounter for pre-operative examination: Chart Review Chart Review: Acceptable Risk for Surgery and Patient NOT seen in Pre Admission Testing Consults Requested none ASA [id number] Proposed Anesthesia Anesthesia Type: MAC Risk / Benefits Reviewed With: PT / POA / Parent / Guardian, Accepts Plan and In formed Consent Obtained History Surgery Operation Date: 03/10/21 22:00 Proposed Procedures p Cystoscopy, Stent Placement - Song Edwards, Height/Weight Height: 5 ft Weight: 120.1 kg Allergies Allergy/AdvReac Type Severity Reaction Status Date / Time Penicillins Allergy Intermediate URTICARIA; Verified 03/10/21 21:21 PER PT, CAN TAKE AMOXICILLIN erythromycin base AdvReac Mild GI UPSET Verified 03/10/21 21:21 Medications Home Medications Medication Instructions Recorded Confirmed Last Taken allopurinol 100 mg tablet 200 mg PO HS tab 02/15/18 03/10/21 09/10/20 22:30 omeprazole 20 mg capsule,delayed 20 mg PO QAM 02/15/18 03/10/21 09/11/20 05:15 release spironolactone 25 mg tablet 25 mg PO QAM 02/15/18 03/10/21 09/09/20 08:00 magnesium oxide 400 mg PO QPM 02/03/20 03/10/21 09/10/20 17:00 repaglinide 0.5 mg tablet 0.5 mg PO TIDM 02/03/20 03/10/21 09/10/20 17:00 rosuvastatin 10 mg tablet (Crestor) 10 mg PO HS 02/03/20 03/10/21 09/10/20 22:00 metoprolol tartrate 50 mg tablet 50 mg PO BID #0 tab 02/09/20 03/10/21 09/11/20 05:15 bumetanide 1 mg tablet 1 mg PO QAM tab 06/20/20 03/10/21 09/09/20 08:30 cholecalciferol (vitamin D3) 25 1,000 unit PO QAM cap 06/20/20 03/10/21 09/11/20 05:15 mcg (1,000 unit) capsule metformin 500 mg tablet,extended 500 mg PO BID tab 06/20/20 03/10/21 09/10/20 08:30 release 24 hr amiodarone 200 mg tablet 200 mg PO QAM 09/04/20 03/10/21 09/11/20 05:15 amlodipine 5 mg tablet 5 mg PO BID 09/04/20 03/10/21 09/11/20 06:15 docusate sodium 100 mg capsule 100 mg PO BID 09/04/20 03/10/21 09/11/20 05:15 (Colace) warfarin 5 mg tablet 7.5 mg PO DAILY 09/04/20 03/10/21 09/04/20 levothyroxine 100 mcg tablet 100 mcg PO DAILY 03/10/21 03/10/21 Unknown multivitamin 1 tab PO DAILY 03/10/21 03/10/21 Unknown Active Medications Generic Name Dose Route Start Last Admin Trade Name Altagracia PRN Reason Stop Dose Admin Magnesium Sulfate/Dextrose 1 gm in 100 mls @ 50 mls/hr 03/10/21 21:45 03/10/21 22:15 Magnesium Sulfate / D5w IV 03/10/21 23:44 50 mls/hr 2145 ONE Administration Potassium Chloride 40 meq/ 1,020 mls @ 75 mls/hr 03/10/21 21:39 03/10/21 22:38 Sodium Chloride IV 03/11/21 11:14 Not Given .[id number] ONE Past Medical History Medical History A-fib Paroxysmal, Follows with Dr. 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 Some of the granulation is up to surface" without evid ence of cellulitic change Past Family History Family History Mother Diabetes Heart disease Father Hypertension Stroke Other No family history of adverse response to anesthesia No pertinent family history Past Surgical History Surgical History H/O basal cell carcinoma excision H/O left knee surgery multiple knee arthroscopy on left H/O repair of rotator cuff right History of arthroplasty of left knee History of cardioversion RASHID with cardioversion (02/07/20): MAC sedation at [facility] History of carpal tunnel surgery History of esophagogastroduodenoscopy (EGD) History of umbilical hernia repair (09/11/20) Umbilical Hernia Repair with Mesh - Pete Zafar DO, FACS S/P debridement multiple abdominal debridements at [facility]. 08/2020 Status post Mohs surgery Social History Smoking Status: Never smoker Hx Alcohol Use: Yes Alcohol type: wine alcohol intake frequency: holidays/special occasions only Hx Substance Use: No substance use type: does not use Physical Exam Vital Signs Last Vital Signs Temp 39.8 C H 03/10/21 17:53 Pulse 77 03/10/21 22:00 Resp 25 H 03/10/21 22:00 BP 149/69 H 03/10/21 22:00 Pulse Ox 90 03/10/21 22:00 Testing Laboratory Results 03/10/21 17:13 03/10/21 18:25 PT 15.6 Seconds (9.0-12.0) H 03/10/21 Unknown INR 1.6 (0.9-1.1) H 03/10/21 Unknown Urine Color Yellow 03/10/21 Unknown Urine Appearance Clear (Clear) 03/10/21 Unknown Urine pH 6.5 (4.5-7.5) 03/10/21 Unknown Ur Specific Riley 1.014 (1.000-1.030) 03/10/21 Unknown Urine Protein 2+ (Negative) H 03/10/21 Unknown Urine Glucose (UA) Negative (Negative) 03/10/21 Unknown Urine Ketones Negative (Negative) 03/10/21 Unknown Urine Nitrite Negative (Negative) 03/10/21 Unknown Ur Leukocyte Esterase Trace (Negative) H 03/10/21 Unknown Urine WBC (Auto) 10-30 /hpf (0-5) H 03/10/21 Unknown Urine RBC (Auto) 5-10 /hpf (0-4) H 03/10/21 Unknown U Hyaline Cast (Auto) 1-5 /lpf (0-5) 03/10/21 Unknown U Epithel Cells (Auto) >30 /lpf (0-5) H 03/10/21 Unknown Urine Bacteria (Auto) 1+ (Negative) H 03/10/21 Unknown Electrocardiogram Date: 03/10/21 Findings: + NSR @ (91) Left axis deviation, anterolateral infarct age undetermined
[2021-03-10 21:27] LABS: INR 1.6 (0.9-1.1); Prothrombin Time 15.6 Seconds (9.0-12.0)
--- NOTE | 2021-03-10 21:33 | History & Physical Report ---
Date of Service March 10, 2021 Assessment & Plan (1) Severe sepsis: Plan: SIRS plus ARF plus encephalopathy Secondary to complicated UTI, obstructive uropathy PAF, NSR, INR subtherapeutic. hypertension, elevated secondary to discomfort, missed medications hyperlipidemia on statin Rx hx CVA DM2 on oral medications, well-controlled as of recent hemoglobin A1c of 6.03 February 2021 chronic anemia, hemoglobin better than baseline hypothyroidism, recent outpatient TSH elevated at 5 Hypokalemia secondary to diuretic Rx, clinical dehydration, emesis, home medications Medical telemetry CS, Cefepime for now. Urology consult Re: Obstructive uropathy Patient already evaluated at the ER. Emergent OR recommended given sepsis. Monitor creatinine response to IVF, hold home diuretics until patient is euvolemic Facilitate home BP meds, analgesia Replace potassium Basal insulin adjusted for n.p.o. status for now, ISS BG goal 1 10-1 40 DVT prophylaxis. SCDs while Coumadin on hold if INR less than 2. Resume Coumadin once bleeding risk is deemed to be minimal and negligible pending urology evaluation. Goal INR between 2 and 3 Full code. Text document was generated using [employer] voice recognition software. It may contain grammatical or spelling errors. Kindly contact undersigned for clarification of any documentation item in question. History of Present Illness Chief Complaint: Left back pain, weakness Primary Care Provider: Micah Whitmore MD History obtained from patient and records. Medical history significant for PAF on Coumadin, hypertension, hyperlipidemia, history CVA, EDYTA on CPA/nocturnal hypoxemia as per records DM2 on oral medications, chronic anemia (baseline hemoglobin 10-11), hypothyroidism, urolithiasis. Last confinement August 2020 under Plastic Surgery service for elective panniculectomy. Few days ago, patient noted achy left flank pain reminiscent of kidney stone pain. Chills, nausea, one episode of emesis. No hematuria. Patient denies chest pain, S OB. Patient noted to be sleepy. At the ER, patient received Vancomycin and Cefepime for sepsis. 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 Allergies Allergy/AdvReac Type Severity Reaction Status Date / Time Penicillins Allergy Intermediate URTICARIA; Verified 03/10/21 21:21 PER PT, CAN TAKE AMOXICILLIN erythromycin base AdvReac Mild GI UPSET Verified 03/10/21 21:21 Home Medications Medication Instructions Recorded Confirmed Type allopurinol 100 mg tablet 200 mg PO HS tab 02/15/18 03/10/21 History omeprazole 20 mg capsule,delayed 20 mg PO QAM 02/15/18 03/10/21 History release spironolactone 25 mg tablet 25 mg PO QAM 02/15/18 03/10/21 History magnesium oxide 400 mg PO QPM 02/03/20 03/10/21 History repaglinide 0.5 mg tablet 0.5 mg PO TIDM 02/03/20 03/10/21 History rosuvastatin 10 mg tablet (Crestor) 10 mg PO HS 02/03/20 03/10/21 History metoprolol tartrate 50 mg tablet 50 mg PO BID #0 tab 02/09/20 03/10/21 Rx bumetanide 1 mg tablet 1 mg PO QAM tab 06/20/20 03/10/21 History cholecalciferol (vitamin D3) 25 1,000 unit PO QAM cap 06/20/20 03/10/21 History mcg (1,000 unit) capsule metformin 500 mg tablet,extended 500 mg PO BID tab 06/20/20 03/10/21 History release 24 hr amiodarone 200 mg tablet 200 mg PO QAM 09/04/20 03/10/21 History amlodipine 5 mg tablet 5 mg PO BID 09/04/20 03/10/21 History docusate sodium 100 mg capsule 100 mg PO BID 09/04/20 03/10/21 History (Colace) warfarin 5 mg tablet 7.5 mg PO DAILY 09/04/20 03/10/21 History levothyroxine 100 mcg tablet 100 mcg PO DAILY 03/10/21 03/10/21 History multivitamin 1 tab PO DAILY 03/10/21 03/10/21 History Past Med/Surg History Medical History A-fib Paroxysmal, Follows with Dr. Foster Anemia CKD stage 3 secondary to diabetes CVA (cerebral vascular accident) Silent > Old infarct found on remote CT imaging (dating back to at least 2017) Diastolic dysfunction DM II (diabetes mellitus, type II), controlled NIDDM Dyslipidemia Gastric ulcer due to Helicobacter pylori hx Gout hx Hx of basal cell carcinoma Hx of osteomyelitis Spine (02/2020) treated at [facility] [place] [facility] antibiotics and oxycodone for pain management Hypertension Hypothyroidism Lymphedema Morbid obesity Osteoarthritis Sleep apnea CPAP T2DM (type 2 diabetes mellitus) Wound of abdomen Previous wound vac/debridement > evaluated by surgeon's office 08/27/20 ([facility]) noting "sizable wound of the left lower quadrant, 100% granulated, but quite deep in some areas. Some of the granulation is up to surface" without evidence of cellulitic change Surgical History H/O basal cell carcinoma excision H/O left knee surgery multiple knee arthroscopy on left H/O repair of rotator cuff right History of arthroplasty of left knee History of cardioversion RASHID with cardioversion (02/07/20): MAC sedation at [facility] History of carpal tunnel surgery History of esophagogastroduodenoscopy (EGD) History of umbilical hernia repair (09/11/20) Umbilical Hernia Repair with Mesh - Pete Zafar DO, FACS S/P debridement multiple abdominal debridements at [facility]. 08/2020 Status post Mohs surgery Family History Mother Diabetes Heart disease Father Hypertension Stroke Other No family history of adverse response to anesthesia No pertinent family history Social History Smoking Status: Never smoker Second Hand Exposure: No; Hx Alcohol Use: Yes Alcohol type: wine Hx Substance Use: No Preferred Language: Setswana Communication Ability: Effective Hearing Ability: Normal Home Care Associate Required: No Beliefs That Will Affect Care: None marital status: / Current Living Situation: Family Current Living Situation Comment: currently living with daughter current occupational status: retired Feels Safe at Home: Yes Assistive Devices: CPAP and Walker Review of Systems Review of Systems: As per HPI, all 10 systems reviewed, all other ROS negative Physical Exam Physical Exam: GENERAL: Comfortable, morbidly obese, episodic lethargy, no respiratory distress SKIN: Normal color, warm HEENT: [place] palpebral conjunctivae, no ptosis, dry buccal mucosa NECK : Supple, short neck, no tenderness CHEST : Decreased breath sounds, no tenderness HEART : RRR, no obvious murmurs ABDOMEN: distention, nontender EXTREMITIES : Bilateral LE swelling, no LE tenderness, no other conspicuous deformities noted NEUROLOGIC : Episodic lethargy, no facial asymmetry, no other gross focality Results & Data Results & Data ([facility]) Vital Signs (Past 12 Hours) Vital Signs Temp Pulse Resp BP Pulse Ox 03/10/21 19:47 100 H 24 146/69 H 93 03/10/21 19:00 105 H 35 H 196/97 H 03/10/21 18:30 108 H 54 H 03/10/21 18:00 107 H 39 H 95 03/10/21 17:53 39.8 C H 03/10/21 17:36 105 H 34 H 180/86 H 03/10/21 15:56 36.9 C 86 19 186/71 H 95 Laboratory Results Laboratory Results WBC 10.79 K/uL (4.8-10.8) 03/10/21 17:13 RBC 4.39 M/uL (4.2-5.4) 03/10/21 17:13 Hgb 12.5 g/dL (12.0-16.0) 03/10/21 17:13 Hct 38.4 % (37-47) 03/10/21 17:13 MCV 87.5 fL (80-100) 03/10/21 17:13 MCH 28.5 pg (25-34) 03/10/21 17:13 MCHC 32.6 g/dL (32-36) 03/10/21 17:13 RDW Std Deviation 48.9 fL (36.4-46.3) H 03/10/21 17:13 RDW Coeff of Yvette 15.2 % (11.5-14.5) H 03/10/21 17:13 Plt Count 169 K/uL (130-400) 03/10/21 17:13 MPV 10.6 fL (7.4-10.4) H 03/10/21 17:13 Immature Gran % (Auto) 0.3 % 03/10/21 17:13 Neut % (Auto) 86.4 % 03/10/21 17:13 Lymph % (Auto) 7.8 % 03/10/21 17:13 [place] % (Auto) 5.4 % 03/10/21 17:13 Eos % (Auto) 0.0 % 03/10/21 17:13 Baso % (Auto) 0.1 % 03/10/21 17:13 Neut # (Auto) 9.33 K/uL (1.4-6.5) H 03/10/21 17:13 Lymph # (Auto) 0.84 K/uL (1.2-3.4) L 03/10/21 17:13 [place] # (Auto) 0.58 K/uL (0.11-0.59) 03/10/21 17:13 Eos # (Auto) 0.00 K/uL (0-0.5) 03/10/21 17:13 Baso # (Auto) 0.01 K/uL (0-0.2) 03/10/21 17:13 Immature Gran # (Auto) 0.03 K/uL (0.00-0.02) H 03/10/21 17:13 PT 15.6 Seconds (9.0-12.0) H 03/10/21 Unknown INR 1.6 (0.9-1.1) H 03/10/21 Unknown Sodium 134 mmol/L (136-145) L 03/10/21 17:13 Potassium 3.4 mmol/L (3.5-5.1) L 03/10/21 18:25 Chloride 102 mmol/L (98-107) 03/10/21 17:13 Carbon Dioxide 21 mmol/L (21-32) 03/10/21 17:13 Anion Gap 11.0 (3-11) 03/10/21 17:13 BUN 30 mg/dl (7-18) H 03/10/21 17:13 Creatinine 1.26 mg/dl (0.6-1.2) H 03/10/21 17:13 Est Cr Clr Drug Dosing Not Reportable 03/10/21 17:13 Est GFR ( Amer) 50.0 ml/min 03/10/21 17:13 Est GFR (Non-Af Amer) 43.1 ml/min 03/10/21 17:13 BUN/Creatinine Ratio 24.0 (10-20) H 03/10/21 17:13 Glucose 146 mg/dl (70-99) H 03/10/21 17:13 Lactate 1.9 mmol/L (0.4-2.0) 03/10/21 17:22 Calcium 9.8 mg/dl (8.5-10.1) 03/10/21 17:13 Magnesium 1.7 mg/dl (1.8-2.4) L 03/10/21 18:25 Total Bilirubin 0.6 mg/dl (0.2-1) 03/10/21 17:13 Direct Bilirubin mg/dl (0-0.2) 03/10/21 17:13 AST 40 U/L (15-37) H 03/10/21 18:25 ALT 62 U/L (12-78) 03/10/21 17:13 Alkaline Phosphatase 123 U/L (45-117) H 03/10/21 17:13 Troponin I < 0.015 ng/ml (0-0.045) 03/10/21 17:13 C-Reactive Protein 21.90 mg/dl (0-0.29) H 03/10/21 17:13 Total Protein 8.6 gm/dl (6.4-8.2) H 03/10/21 17:13 Albumin 3.3 gm/dl (3.4-5.0) L 03/10/21 17:13 Lipase 122 U/L (73-393) 03/10/21 17:13 Procalcitonin 14.20 ng/ml (0-0.5) H 03/10/21 17:13 Urine Color Yellow 03/10/21 Unknown Urine Appearance Clear (Clear) 03/10/21 Unknown Urine pH 6.5 (4.5-7.5) 03/10/21 Unknown Ur Specific Fields 1.014 (1.000-1.030) 03/10/21 Unknown Urine Protein 2+ (Negative) H 03/10/21 Unknown Urine Glucose (UA) Negative (Negative) 03/10/21 Unknown Urine Ketones Negative (Negative) 03/10/21 Unknown Urine Blood 2+ (Negative) H 03/10/21 Unknown Urine Nitrite Negative (Negative) 03/10/21 Unknown Urine Bilirubin Negative (Negative) 03/10/21 Unknown Urine Urobilinogen Negative (Negative) 03/10/21 Unknown Ur Leukocyte Esterase Trace (Negative) H 03/10/21 Unknown Urine WBC (Auto) 10-30 /hpf (0-5) H 03/10/21 Unknown Urine RBC (Auto) 5-10 /hpf (0-4) H 03/10/21 Unknown U Hyaline Cast (Auto) 1-5 /lpf (0-5) 03/10/21 Unknown U Epithel Cells (Auto) >30 /lpf (0-5) H 03/10/21 Unknown Urine Bacteria (Auto) 1+ (Negative) H 03/10/21 Unknown Urine Yeast Not Reportable 03/10/21 Unknown COVID-19 Eval Order Covid19 at [facility] 03/10/21 Unknown SARS-CoV-2 (PCR) NEGATIVE (Negative) 03/10/21 Unknown Impressions Abdomen/Pelvis CT 03/10/21 16:22 CT abd pelvis wo con CLINICAL HISTORY: left lower back pain, fevers, TECHNIQUE: Helical axial images of the abdomen and pelvis were obtained. Automated dose lowering techniques and/or adjustment according to patient size were utilized for this exam. This exam was performed without intravenous contrast. COMPARISON: None available at the time of this dictation. FINDINGS: Exam is limited by patient body habitus. Lower chest: Mosaic attenuation is noted in the visualized lungs. Liver: Unremarkable. No focal lesions are seen. Gallbladder and biliary tree: No calcified gallstones. Normal caliber wall. No intra- or extrahepatic biliary ductal dilation. Pancreas: Unremarkable, no focal lesions. Spleen: Splenule is incidentally noted. Adrenals: Unremarkable. Kidneys and ureters: There is mild left hydronephrosis. Although evaluation is limited, there is suggestion of obstructive left ureterovesicular junction stone measuring 3 mm. Bladder: Unremarkable. Reproductive organs: Unremarkable. Bowel: Unremarkable. Lymph nodes Retroperitoneal: Unremarkable. Mesenteric: Unremarkable. Pelvic: Unremarkable. Peritoneum: Normal Vessels: Atherosclerotic calcifications are seen. Abdominal wall: Unremarkable. Bones: Severe degenerative changes in the lumbar spine. Levoscoliosis is noted. IMPRESSION: Limited exam due to patient body habitus. There is suggestion of obstructive left ureterovesicular junction stone resulting hydronephrosis. ACT 112: Negative or not required by law. Electronically signed by: Tiburcio Casey M.D. 03/10/2021 7:54 PM Chest X-Ray 03/10/21 16:23 XR chest 1V portable CLINICAL HISTORY: illness, weakness TECHNIQUE: Single frontal radiograph of the chest was obtained. Comparison: Comparison is made to chest one view 02/03/2020 FINDINGS: No lines and tubes are seen. Cardiomegaly is noted. The lungs are clear. No evidence of pleural effusion or pneumothorax. IMPRESSION: No acute chest disease. ACT 112: Negative or not required by law. Electronically signed by: Tiburcio Casey M.D. 03/10/2021 6:23 PM Diagnostic Findings EKG as per my interpretation rate 90, NSR, LAD, LAFB, no ischemia
[2021-03-10] MEDS ORDERED: CONSULT PHARMACY STA (21:39)
[2021-03-10] MEDS ORDERED: POTASSIUM CHLORIDE 40 MEQ in SODIUM CHLORIDE 0.9% 1000ML 1,000 ML IV ONE (21:39)
[2021-03-10] MEDS ORDERED: MAGNESIUM SULFATE / D5W 1 GM/100 ML BAG IV ONE (21:45)
[2021-03-10] MEDS ORDERED: MIDAZOLAM HCL 1 MG/ML 2ML VIAL ONE (22:28)
[2021-03-10] MEDS ORDERED: LIDOCAINE 2% 2 ML VIAL/AMP(20MG/ML) INFIL ONE (22:28)
[2021-03-10] MEDS ORDERED: PROPOFOL IV EMULSION 10 MG/ML 20 ML VIAL IV ONE ×2 (22:28→23:46)
[2021-03-10] MEDS ORDERED: ePHEDrine sulfate 50 MG/ML AMP IV PRN (23:06)
[2021-03-10] MEDS ORDERED: fentaNYL citrate 100 MCG/2 ML VIAL IV PRN (23:06)
[2021-03-10] MEDS ORDERED: ATROPINE SULFATE 0.1 MG/ML 10ML SYR IV PRN (23:06)
[2021-03-10] MEDS ORDERED: ONDANSETRON INJ 2 MG/ML 2 ML VIAL IV PRN (23:06)
[2021-03-10] MEDS ORDERED: DIATRIZOATE MEGLUMINE 30% 100ML VIAL INSTIL ONE (23:47)
--- NOTE | 2021-03-10 23:54 | Operative Report ---
PG Post Operative Report Pre & Post Diagnosis Operation Date: 03/10/21 22:00 Pre-Op Diagnosis: Left Renal Calculi Nephrolithiasis Post-Op Diagnosis: Left Renal Calculi Nephrolithiasis I identified the patient and participated in the time-out.: Yes Procedure Operation Date: 03/10/21 22:00 Actual Procedures p Cystoscopy with urethral dilation and Left retrograde pyelogram, aspiration, and Stent Placement(Left) - Song Edwards, Surgeon Song Edwards, II, DO Retail Sales Director None Estimated Blood Loss 1 Findings Consistent with Post-Op Diagnosis Stent placed in good position. Moderate stricture of proximal urethra. Debris within bladder. Specimens Urine left kidney Drains 16 Fr sin 4.8 Fr x 26 cm stent left Anesthesia Type MAC Complications none Disposition Disposition: Recovery Room Indications Patient with obstruction. Risks and benefits discussed at length. Description of Procedure Patient was consented and brought back to the operating room. Patient was placed under anesthesia in the supine position and moved to the dorsal lithotomy position. Patient was prepped and draped in the regular sterile fashion. A time out was completed. A 30degree Cystoscope was placed into the bladder and the entire bladder was examined. The proximal urethra had an area of stricture which was dilated to allow passage of the scope. Moderate debris was noted within the bladder. The UO's were identified. The UO was cannulized with a catheter, urine was aspirated, and a retrograde pyelogram was completed. A wire was then placed. With the wire in place, a 6 Fr Double J stent was placed. It was confirmed with fluoroscopy. With the stent in place, the bladder was emptied. The scope was removed. A 16 Fr sin was placed. The patient was cleaned, aroused from anesthesia, and transferred to the pacu in stable condition having tolerated the procedure well with no complications. I was present and participated in all aspects of the procedure. The patient will be monitored in the PACU until transferred. Plan to maintain sin for 1-2 days and stent for 1-2 weeks with plans for ureteroscopy after resolution of infection. I attest to the content of the Intraoperative Record and any orders documented therein. Any exceptions are noted below.
--- NOTE | 2021-03-11 00:26 | Anesthesiology Progress Note ---
Date of Service March 11, 2021 Anesthesia Post Procedure Vital Signs Vital Signs: Temp Pulse Pulse Resp BP BP Pulse Ox 03/11/21 00:15 80 24 162/103 H 97 03/11/21 00:09 36.1 C L 82 24 147/75 H 97 03/10/21 22:00 77 25 H 149/69 H 90 03/10/21 21:30 79 25 H 151/68 H 92 03/10/21 21:00 87 28 H 153/71 H 95 03/10/21 20:30 95 H 27 H 147/54 H 95 03/10/21 20:00 94 H 28 H 142/63 H 94 03/10/21 19:47 100 H 24 146/69 H 93 03/10/21 19:00 105 H 35 H 196/97 H 03/10/21 18:30 108 H 54 H 03/10/21 18:00 107 H 39 H 95 03/10/21 17:53 39.8 C H 03/10/21 17:36 105 H 34 H 180/86 H 03/10/21 15:56 36.9 C 86 19 186/71 H 95 Pain Intensity Back: Pain Intensity: 3 Transfer of Care Handoff Completed per policy Notes Mental Status: alert / awake / arousable and participated in evaluation Nausea / Vomiting: adequately controlled Pain: adequately controlled Airway Patency, RR, SpO2: stable & adequate BP & HR: stable & adequate Hydration State: stable & adequate Anesthetic Complications: no major complications apparent and Pt Satisfied with anesthetic care
[2021-03-11] MEDS ORDERED: INSULIN ASPART 100 UNITS/ML 3 ML PEN SC SCH ×2 (01:06→12:00)
[2021-03-11] MEDS ORDERED: HYDROmorphone INJ 0.5 MG/0.5 ML SYR IM PRN (01:06)
[2021-03-11] MEDS ORDERED: PROMETHAZINE HCL 12.5 MG in SODIUM CHLORIDE 0.9% 50 ML IV PRN (01:06)
[2021-03-11] MEDS ORDERED: oxyCODONE HCL IR 5 MG TAB (IMMEDIATE RELEASE) PO PRN (01:06)
[2021-03-11] MEDS ORDERED: GLUCOSE 10 TABS/TUBE PO PRN (01:06)
[2021-03-11] MEDS ORDERED: CARBOHYDRATES FOR HYPOGLYCEMIA PO PRN (01:06)
[2021-03-11] MEDS ORDERED: DEXTROSE 50% 50 ML SYRINGE IV PRN (01:06)
[2021-03-11] MEDS ORDERED: ACETAMINOPHEN 325 MG TAB PO PRN (01:06)
[2021-03-11] MEDS ORDERED: GLUCAGON FOR INJ 1 MG VIAL SQ PRN (01:06)
[2021-03-11] MEDS ORDERED: GLUCOSE 40% GEL 15 GM TUBE PO PRN (01:06)
[2021-03-11] MEDS: METOPROLOL TARTRATE 50 MG TAB PO SCH ×3 (02:04→20:11)
[2021-03-11] MEDS: ACETAMINOPHEN 325 MG TAB PO PRN ×2 (02:46→19:44)
[2021-03-11] MEDS ORDERED: POTASSIUM CHLORIDE CRTAB 20 MEQ TABCR PO STA (03:15)
[2021-03-11] MEDS ORDERED: POTASSIUM CHLORIDE 40 MEQ in SODIUM CHLORIDE 0.9% 1000ML 1,000 ML IV ONE (04:50)
[2021-03-11] MEDS: LEVOTHYROXINE SODIUM 100 MCG TABLET PO SCH (05:17)
--- NOTE | 2021-03-11 06:36 | XRay Report ---
XR chest 1V portable CLINICAL HISTORY: Shortness of breath. COMPARISON STUDY: Chest radiograph March 10, 2021. FINDINGS: Lung volumes are normal. Lungs are clear. There is no pneumothorax or pleural effusion. Car diac size is unchanged. Right hilar prominence is unchanged. Mediastinal contours are normal. There i s no evidence for pulmonary edema. IMPRESSION: No acute cardiopulmonary findings. No change in appearance of the chest. ACT 112: Negative or not required by law. Electronically signed by: Gui Berumen M.D. 03/11/2021 6:34 AM
[2021-03-11] MEDS ORDERED: Nursing to Pharmacy Communication SCH ×2 (07:15→14:00)
--- NOTE | 2021-03-11 07:24 | Fluoroscopy Report ---
FL retrograde includes kub CLINICAL HISTORY: LT CYSTO COMPARISON STUDY: CT of the abdomen and pelvis March 10, 2021. FLUOROSCOPY TIME: 1 minute and 40 seconds. FLUOROSCOPIC IMAGES: 5 FINDINGS: Fluoroscopy was provided during cystoscopy, left retrograde exam and left ureteral stent in sertion. IMPRESSION: Fluoroscopy provided during cystoscopy, left retrograde exam and left ureteral stent ins ertion. ACT 112: Negative or not required by law. Electronically signed by: Gui Berumen M.D. 03/11/2021 7:22 AM
[2021-03-11] MEDS: PANTOprazole 40 MG TAB PO SCH (07:53)
[2021-03-11] MEDS: AMIODARONE 200 MG TAB PO SCH (07:53)
[2021-03-11] MEDS: amLODIPine BESYLATE 5 MG TAB PO SCH ×2 (07:53→20:12)
[2021-03-11] MEDS: DOCUSATE SODIUM 100 MG CAP PO SCH ×3 (07:54→21:57)
[2021-03-11] MEDS: MULTIVITAMIN TAB PO SCH (07:54)
[2021-03-11 08:26] LABS: Basophils # (auto) 0.02 K/uL (0-0.2); Basophils % (auto) 0.2 %; Hematocrit (blood only) 32.8 % (37-47); Immature Granulocytes # (auto) 0.03 K/uL (0.00-0.02); Immature Granulocytes % (auto) 0.3 %; Lymphocytes # (auto) 0.86 K/uL (1.2-3.4); Lymphocytes % (auto) 9.7 %; Mean Corpuscular Hemoglobin 28.4 pg (25-34); Mean Corpuscular Hgb Conc 33.5 g/dL (32-36); Mean Corpuscular Volume 84.8 fL (80-100); Mean Platelet Volume 10.3 fL (7.4-10.4); Monocytes # (auto) 0.77 K/uL (0.11-0.59); Monocytes % (auto) 8.7 %; Neutrophils % (auto) 81.1 %; Platelet Count 160 K/uL (130-400); RDW Coefficient of Variation 15.3 % (11.5-14.5); RDW Standard Deviation 48.2 fL (36.4-46.3); Red Blood Count 3.87 M/uL (4.2-5.4); White Blood Count 8.88 K/uL (4.8-10.8)
[2021-03-11 08:38] LABS: INR 1.5 (0.9-1.1); Prothrombin Time 15.1 Seconds (9.0-12.0)
[2021-03-11 08:53] LABS: BUN Creatinine Ratio 24.5 (10-20); Calcium 8.7 mg/dl (8.5-10.1); Creatinine Clr Calc Pharmacy 57.3 ml/min; Est GFR (African American) 61.6 ml/min; Est GFR (Non-African American) 53.2 ml/min; Potassium 3.9 mmol/L (3.5-5.1)
--- NOTE | 2021-03-11 12:05 | Urology Progress Note ---
Date of Service March 11, 2021 Assessment & Plan (1) Sepsis: (2) Hydronephrosis with renal and ureteral calculous obstruction: (3) UTI (urinary tract infection): Plan: 70yo F admitted with sepsis secondary to UTI and obstructing left ureteral stone - POD#1 s/p Cystoscopy with urethral dilation and left retrograde pyelogram, aspiration, and stent placement with Dr. Edwards. - Feeling better today, minimal pain - Afebrile at present, TMAX 39.4 at 0243 today - Labs reviewed - Wbc and creatinine normal - Urine and blood cultures preliminary gram negative bacilli - Continues on IV Cefepime - Continue Joseph catheter for now, can likely remove in next 1-2 days - Will arrange outpatient follow-up with urology for definitive stone treatment after resolution of infection. - Continue supportive care, antibiotic therapy, and close monitoring - follow cultures - Will continue to follow peripherally Admission and Anticipated Discharge Date Admission Date: March 10, 2021 Subjective Pt examined at bedside this AM. Awake, resting in bed on arrival. No acute distress. Reports she is feeling much better today. She reports minimal pain at present. Joseph catheter intact/patent, draining clear yellow urine. Denies fevers or chills. No nausea or vomiting. Has been NPO. Review of Systems Constitutional: as per Subjective / HPI Gastrointestinal: as per Subjective / HPI Genitourinary: as per Subjective / HPI Physical Exam Constitutional: well developed and well nourished; no acute distress and not ill appearing Respiratory: normal respiratory effort and able to speak in complete sentences; no labored breathing and no audible wheezes Gastrointestinal (Abdomen): Inspection/Auscultation: abdomen normal to inspection; abdomen not distended Musculoskeletal: Head/Neck/Chest: normocephalic Skin: No visible rashes or lesions to exposed skin areas Neurologic: moves all extremities and awake Psychiatric: Orientation: alert, oriented x 3 and cooperative Genitourinary: Joseph catheter intact Results & Data ([facility]) Vital Signs (Past 12 Hours) Vital Signs Temp Pulse Pulse Pulse Resp BP Pulse Ox 03/11/21 08:09 37.1 C 70 18 133/71 97 03/11/21 08:00 66 03/11/21 03:30 39.3 C H 76 18 154/77 H 95 03/11/21 02:43 39.4 C H 108 H 22 165/73 H 99 11/09/21 02:30 37.6 C H 112 H 22 181/82 H 90 03/11/21 02:00 37.6 C H 101 H 18 113/67 96 03/11/21 01:30 36.7 C 92 H 18 163/78 H 96 03/11/21 01:15 36.6 C 81 18 161/60 H 94 03/11/21 01:00 36.8 C 79 79 18 143/75 H 97 03/11/21 00:35 36.6 C 76 16 152/78 H 94 03/11/21 00:25 74 21 148/93 H 96 03/11/21 00:15 80 24 162/103 H 97 03/11/21 00:09 36.1 C L 82 24 147/75 H 97 PG Care Time/CCT Total # of Minutes Spent Total Time Spent with Patient: Total time spent is greater than 50% in coordination of care (as documented) at patient's floor/unit and/or counseling patient: Coding Level of Care Code 96554 Subseq Hosp Care Lvl 2 Diagnoses Hydronephrosis with renal and ureteral calculous obstruction N13.2 Sepsis A41.9 Sepsis acute organ dysfunction status: without acute organ dysfunction Sepsis type: sepsis due to unspecified organism UTI (urinary tract infection) N39.0 (1) Sepsis Sepsis acute organ dysfunction status: without acute organ dysfunction Sepsis type: sepsis due to unspecified organism Qualified Code(s): A41.9 - Sepsis, unspecified organism
--- NOTE | 2021-03-11 13:37 | Electrocardiogram Report ---
Test Reason : Blood Pressure : / mmHG Vent. Rate : 091 BPM Atrial Rate : 091 BPM P-R Int : 168 ms QRS Dur : 088 ms QT Int : 408 ms P-R-T Axes : 047 -35 052 degrees QTc Int : 501 ms Poor data quality, interpretation may be adversely affected Sinus rhythm with marked sinus arrhythmia Left axis deviation Poor R wave progression, consider anterior NE vs. lead placement vs. LVH Abnormal ECG When compared with ECG of 09-FEB-2020 06:32, QRS axis Shifted left Questionable change in initial forces of Lateral leads Confirmed by Brad Charles ([id number]) on 03/11/2021 1:37:04 PM Referred By: Micah Whitmore Confirmed By:Brad Charles
--- NOTE | 2021-03-11 15:03 | Communication Note ---
Date of Service: March 11, 2021 - s/P Cystoscopy with urethral dilation and Left retrograde pyelogram, aspiration, and Stent Placement(Left) - Bacteremia Overall doing okay. Hemodynamically doing fine. Patient does not have any new complaints. Continue cefepime. Blood culture sensitivities are pending. Appreciate urology input.
[2021-03-11] MEDS: INSULIN ASPART 100 UNITS/ML 3 ML PEN SC SCH ×2 (17:27→21:54)
[2021-03-11] MEDS: CEFEPIME 2,000 MG in SYRINGE 0 ML IV SCH (19:44)
[2021-03-11] MEDS: TAMSULOSIN HCL 0.4 MG CAP PO SCH (20:11)
[2021-03-11] MEDS: ROSUVASTATIN CALCIUM 10 MG TAB PO SCH (20:11)
[2021-03-11] MEDS: allopurinoL 100 MG TAB PO SCH (20:12)
[2021-03-12] MEDS: LEVOTHYROXINE SODIUM 100 MCG TABLET PO SCH (05:48)
[2021-03-12] MEDS: amLODIPine BESYLATE 5 MG TAB PO SCH ×2 (07:35→20:29)
[2021-03-12] MEDS: AMIODARONE 200 MG TAB PO SCH (07:36)
[2021-03-12] MEDS: METOPROLOL TARTRATE 50 MG TAB PO SCH ×2 (07:36→20:29)
[2021-03-12] MEDS: DOCUSATE SODIUM 100 MG CAP PO SCH ×2 (07:36→20:30)
[2021-03-12] MEDS: PANTOprazole 40 MG TAB PO SCH (07:37)
[2021-03-12] MEDS: MULTIVITAMIN TAB PO SCH (07:37)
[2021-03-12] MEDS: INSULIN ASPART 100 UNITS/ML 3 ML PEN SC SCH ×4 (09:35→20:28)
--- NOTE | 2021-03-12 09:54 | Urology Progress Note ---
Date of Service March 12, 2021 Assessment & Plan (1) Sepsis: (2) Hydronephrosis with renal and ureteral calculous obstruction: (3) UTI (urinary tract infection): Plan: 70yo F admitted with sepsis secondary to UTI and obstructing left ureteral stone - POD#2 s/p Cystoscopy with urethral dilation and left retrograde pyelogram, aspiration, and stent placement with Dr. Edwards. - Feeling well today, minimal pain - Afebrile, VSS. - Labs reviewed - Creatinine stable - Urine culture preliminary with proteus mirabilis, sensitive to Cefepime; Urine culture from left kidney pending - Blood cultures preliminary gram negative bacilli, continues on IV Cefepime - OK to remove Joseph catheter today and monitor ability to spontaneously void - Continue supportive care, antibiotic therapy, tamsulosin, and close monitoring - follow cultures - Will arrange outpatient follow-up with urology for definitive stone treatment after resolution of infection. - Thank you for allowing us to participate in the acute care of Ms. Paulino. - Please reconsult us with additional questions, concerns or changes in patient status. Admission and Anticipated Discharge Date Admission Date: March 10, 2021 Subjective Pt examined at bedside this AM. Awake, sitting in bedside chair on arrival. Reports feeling well today. Denies abdominal or flank pain. Joseph catheter intact/patent, draining clear yellow urine. Denies fevers or chills. No nausea or vomiting. Tolerating diet. Review of Systems Constitutional: as per Subjective / HPI Gastrointestinal: as per Subjective / HPI Genitourinary: as per Subjective / HPI Physical Exam Constitutional: well developed and well nourished; no acute distress and not ill appearing Respiratory: normal respiratory effort and able to speak in complete sentences; no labored breathing and no audible wheezes Gastrointestinal (Abdomen): Inspection/Auscultation: abdomen normal to inspection; abdomen not distended Musculoskeletal: Head/Neck/Chest: normocephalic Skin: No visible rashes or lesions to exposed skin areas Neurologic: moves all extremities and awake Psychiatric: Orientation: alert, oriented x 3 and cooperative Genitourinary: Joseph catheter intact Results & Data ([facility]) Vital Signs (Past 12 Hours) Vital Signs Temp Pulse Pulse Resp BP BP Pulse Ox 03/12/21 07:41 36.8 C 67 18 117/67 97 03/12/21 03:15 36.6 C 60 16 128/72 94 03/12/21 00:44 67 03/12/21 00:11 36.9 C 61 18 123/71 94 03/11/21 23:35 36.8 C 60 18 126/61 94 PG Care Time/CCT Total # of Minutes Spent Total Time Spent with Patient: Total time spent is greater than 50% in coordination of care (as documented) at patient's floor/unit and/or counseling patient: Coding Level of Care Code 94952 Subseq Hosp Care Lvl 2 Diagnoses Sepsis A41.9 Sepsis acute organ dysfunction status: without acute organ dysfunction Sepsis type: sepsis due to unspecified organism Hydronephrosis with renal and ureteral calculous obstruction N13.2 UTI (urinary tract infection) N39.0 (1) Sepsis Sepsis acute organ dysfunction status: without acute organ dysfunction Sepsis type: sepsis due to unspecified organism Qualified Code(s): A41.9 - Sepsis, unspecified organism
[2021-03-12 10:35] LABS: INR 1.2 (0.9-1.1); Prothrombin Time 12.3 Seconds (9.0-12.0)
[2021-03-12 10:44] LABS: BUN Creatinine Ratio 24.9 (10-20); Creatinine Clr Calc Pharmacy 52.8 ml/min; Est GFR (African American) 55.8 ml/min; Est GFR (Non-African American) 48.2 ml/min; Potassium 4.3 mmol/L (3.5-5.1)
--- NOTE | 2021-03-12 17:26 | Hospitalist Progress Note ---
Date of Service March 12, 2021 Assessment & Plan (1) Severe sepsis: Plan: SIRS plus ARF plus encephalopathy Secondary to complicated Proteus UTI, obstructive uropathy Gram-negative bacilli bacteremia --Left renal calculi --Status post ureteral stent placement 03/11/2021 --Afebrile today --Repeat blood cultures pending --Continue IV cefepime Awaiting speciation of first blood culture Anticipate discharge to home with oral antibiotics Follow-up with urologist in 1 week PAF, NSR, INR subtherapeutic. --INR 1.2 --Resume Coumadin 7.5 mg p.o. daily hypertension --Monitor hyperlipidemia on statin Rx hx CVA DM2 on oral medications, well-controlled as of recent hemoglobin A1c of 6.03 February 2021 chronic anemia, hemoglobin better than baseline hypothyroidism, recent outpatient TSH elevated at 5 DVT prophylaxis On Coumadin Disposition Anticipate discharge to home medically stable Admission and Anticipated Discharge Date Admission Date: March 10, 2021 Subjective Follow-up for severe sepsis, encephalopathy, UTI, obstructive uropathy, etc. Seen sleeping bedside chair, comfortable, in good spirits States she feels better overall Denies abdominal pain, flank pain, back pain No problems with the Joseph catheter No hematuria noted No fevers or chills, nausea vomiting, weakness no chest pain, dyspnea, palpitations, dizziness Review of Systems Review of Systems: all noted and negative except for above Physical Exam Physical Exam: General- oriented x 3, not in distress, speaks in sentences with no effort or accessory muscle use Eyes- anicteric Neck- no JVD Lungs- clear breath sounds bilaterally, no rales/wheezes Heart- normal rate, regular rhythm; no murmurs Abdomen- normal bowel sounds, nondistended, soft, nontender Extremities- no pretibial edema, no calf tenderness Neuro- alert, oriented x 3; no gross focal neurologic deficits Skin- warm & dry Results & Data Results & Data ([facility]) Vital Signs (Past 12 Hours) Vital Signs Temp Pulse Pulse Resp BP BP Pulse Ox 03/12/21 15:03 36.8 C 68 18 146/74 H 94 03/12/21 07:41 36.8 C 67 18 117/67 97 all noted and reviewed including below
[2021-03-12] MEDS ORDERED: WARFARIN SOD 7.5 MG TAB PO SCH (17:30)
[2021-03-12] MEDS: ROSUVASTATIN CALCIUM 10 MG TAB PO SCH (20:29)
[2021-03-12] MEDS: TAMSULOSIN HCL 0.4 MG CAP PO SCH (20:29)
[2021-03-12] MEDS: CEFEPIME 2,000 MG in SYRINGE 0 ML IV SCH (20:29)
[2021-03-12] MEDS: allopurinoL 100 MG TAB PO SCH (20:29)
[2021-03-13] MEDS: LEVOTHYROXINE SODIUM 100 MCG TABLET PO SCH (04:12)
[2021-03-13] MEDS: PANTOprazole 40 MG TAB PO SCH (07:52)
[2021-03-13] MEDS: METOPROLOL TARTRATE 50 MG TAB PO SCH (07:52)
[2021-03-13] MEDS: amLODIPine BESYLATE 5 MG TAB PO SCH (07:52)
[2021-03-13] MEDS: DOCUSATE SODIUM 100 MG CAP PO SCH (07:52)
[2021-03-13] MEDS: MULTIVITAMIN TAB PO SCH (07:53)
[2021-03-13] MEDS: AMIODARONE 200 MG TAB PO SCH (07:53)
[2021-03-13] MEDS: INSULIN ASPART 100 UNITS/ML 3 ML PEN SC SCH ×2 (07:53→12:19)
[2021-03-13 09:54] LABS: INR 1.2 (0.9-1.1); Prothrombin Time 11.6 Seconds (9.0-12.0)
--- NOTE | 2021-03-13 13:04 | Hospitalist Progress Note ---
Date of Service March 13, 2021 Assessment & Plan (1) Severe sepsis: Plan: SIRS plus ARF plus encephalopathy Secondary to complicated Proteus UTI, obstructive uropathy Proteus bacteremia --Left renal calculi --Status post ureteral stent placement 03/11/[address] Song Edwards of [facility] group urology service --Urine culture: Positive for Proteus Initial blood culture: Positive for Proteus Repeat blood culture 03/12/2021: Pending --Remains afebrile Mental status back to baseline Received IV cefepime x3 days Discharged on 11 more days of cefdinir p.o. 300 mg twice daily to complete 14- day course total Please follow-up results of repeat blood culture drawn 03/12/2021 Follow-up with urologist in 1 week Follow-up with PCP in 1 week PAF, NSR, INR subtherapeutic. --INR 1.2 --Resume Coumadin, advised to take 10 mg p.o. daily x2 days, then resume 7.5 mg p.o. daily Will contact Coumadin clinic to follow-up patient tomorrow hypertension -- Continue usual medications hyperlipidemia on statin Rx hx CVA DM2 on oral medications, well-controlled as of recent hemoglobin A1c of 6.03 February 2021 chronic anemia, hemoglobin better than baseline hypothyroidism, recent outpatient TSH elevated at 5 Discharge to home Follow-up per above plan of care discussed with patient in detail and at length all questions answered he is understanding, agreeable, comfortable with the plan of care Admission and Anticipated Discharge Date Admission Date: March 10, 2021 Subjective ff up for ureteral stone, Proteus UTI, Proteus bacteremia, etc. Seen resting in bedside chair, comfortable, in good spirits States she feels fine overall Denies back pain, flank pain, abdominal pain, fevers or chills, nausea vomiting, problems with urination or bowel movement no chest pain, dyspnea, palpitations, dizziness States she is ready and would like to be discharged today Review of Systems Review of Systems: all noted and negative except for above Physical Exam Physical Exam: General- oriented x 3, not in distress, speaks in sentences with no effort or accessory muscle use Eyes- anicteric Neck- no JVD Lungs- clear breath sounds bilaterally, no rales/wheezes Heart- normal rate, regular rhythm; no murmurs Abdomen- normal bowel sounds, nondistended, soft, nontender No CVA tenderness Extremities-trace pretibial edema, no calf tenderness Neuro- alert, oriented x 3; no gross focal neurologic deficits Skin- warm & dry Results & Data Results & Data ([facility]) Vital Signs (Past 12 Hours) Vital Signs Temp Pulse Pulse Resp BP BP Pulse Ox 03/13/21 12:48 36.9 C 64 20 153/75 H 143/74 H 96 03/13/21 10:55 36.9 C 64 20 143/74 H 96 03/13/21 09:44 62 03/13/21 07:00 36.6 C 78 18 153/75 H 95 03/13/21 04:35 36.7 C 65 20 130/65 93 all noted and reviewed including below
--- NOTE | 2021-03-13 13:11 | Discharge Summary ---
Date of Service March 13, 2021 Admission HPI Per Admitting Provider History obtained from patient and records. Medical history significant for PAF on Coumadin, hypertension, hyperlipidemia, history CVA, EDYTA on CPA/nocturnal hypoxemia as per records DM2 on oral medications, chronic anemia (baseline hemoglobin 10-11), hypothyroidism, urolithiasis. Last confinement August 2020 under Plastic Surgery service for elective panniculectomy. Few days ago, patient noted achy left flank pain reminiscent of kidney stone pain. Chills, nausea, one episode of emesis. No hematuria. Patient denies chest pain, S OB. Patient noted to be sleepy. At the ER, patient received Vancomycin and Cefepime for sepsis. 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 Admission Exam (Per Admitting) Constitutional GENERAL: Comfortable, morbidly obese, episodic lethargy, no respiratory distress SKIN: Normal color, warm HEENT: [place] palpebral conjunctivae, no ptosis, dry buccal mucosa NECK : Supple, short neck, no tenderness CHEST : Decreased breath sounds, no tenderness HEART : RRR, no obvious murmurs ABDOMEN: distention, nontender EXTREMITIES : Bilateral LE swelling, no LE tenderness, no other conspicuous deformities noted NEUROLOGIC : Episodic lethargy, no facial asymmetry, no other gross focality Discharge Data Consultations 03/10/21 20:05 Consult Urology Routine ED Decision to Admit Stat Procedures Performed Operation Date: 03/10/21 22:00 Actual Procedures p Cystoscopy and Urethral Dilation with Left ueretral Stent Placement(Left) - Song Edwards DO [facility], [place] [phone] CT Scan Report Patient:Alex GRISSOM Admit Date:03/10/21 MR#:[id number] Address1:[address] Acct ID:[id number] Address2: Date:[address] [facility] Zip:[place] [address] Age:70 Location:ED Sex:F Room/Bed: Att Phy: Diagnosis:BACK PAIN, NAUSEA Nicole Phy:Micah Whitmore MD Service Date:03/10/21 [facility] Phy: Interpreting Phy:Tiburcio Casey [facility] Phy: Ordering Phy:Vick Morgan M.D. cc: ~ CT abd pelvis wo con CLINICAL HISTORY: left lower back pain, fevers, TECHNIQUE: Helical axial images of the abdomen and pelvis were obtained. Automated dose lowering techniques and/or adjustment according to patient size were utilized for this exam. This exam was performed without intravenous contrast. COMPARISON: None available at the time of this dictation. FINDINGS: Exam is limited by patient body habitus. Lower chest: Mosaic attenuation is noted in the visualized lungs. Liver: Unremarkable. No focal lesions are seen. Gallbladder and biliary tree: No calcified gallstones. Normal caliber wall. No intra- or extrahepatic biliary ductal dilation. Pancreas: Unremarkable, no focal lesions. Spleen: Splenule is incidentally noted. Adrenals: Unremarkable. Kidneys and ureters: There is mild left hydronephrosis. Although evaluation is limited, there is suggestion of obstructive left ureterovesicular junction stone measuring 3 mm. Bladder: Unremarkable. Reproductive organs: Unremarkable. Bowel: Unremarkable. Lymph nodes Retroperitoneal: Unremarkable. Mesenteric: Unremarkable. Pelvic: Unremarkable. Peritoneum: Normal Vessels: Atherosclerotic calcifications are seen. Abdominal wall: Unremarkable. Bones: Severe degenerative changes in the lumbar spine. Levoscoliosis is noted. IMPRESSION: Limited exam due to patient body habitus. There is suggestion of obstructive left ureterovesicular junction stone resulting hydronephrosis. ACT 112: Negative or not required by law. Electronically signed by: Tiburcio Casey M.D. 03/10/2021 7:54 PM Hospital Course (1) Severe sepsis: SIRS plus ARF plus metabolic encephalopathy Secondary to complicated Proteus UTI, obstructive uropathy Proteus bacteremia Left renal calculi --Status post ureteral stent placement 03/11/[address] Song Edwards of [facility] group urology service --Urine culture: Positive for Proteus Initial blood culture: Positive for Proteus Repeat blood culture 03/12/2021: Pending --Remains afebrile Mental status back to baseline Received IV cefepime x3 days Discharged on 11 more days of cefdinir p.o. 300 mg twice daily to complete 14- day course total Please follow-up results of repeat blood culture drawn 03/12/2021 Follow-up with urologist in 1 week Follow-up with PCP in 1 week PAF, NSR, INR subtherapeutic. --INR 1.2 --Resume Coumadin, advised to take 10 mg p.o. daily x2 days, then resume 7.5 mg p.o. daily Will contact Coumadin clinic to follow-up patient tomorrow Hypertension -- Continue usual medications hyperlipidemia on statin Rx hx CVA DM2 on oral medications, well-controlled as of recent hemoglobin A1c of 6.03 February 2021 chronic anemia, hemoglobin better than baseline hypothyroidism, recent outpatient TSH elevated at 5 Discharge to home Follow-up per above plan of care discussed with patient in detail and at length all questions answered he is understanding, agreeable, comfortable with the plan of care
[2021-03-13] MEDS ORDERED: CEFDINIR 300 MG CAP PO SCH (21:00)
== END 2021-03-13 14:05 | disposition home or self-care (01) | DRG 871 ==
LOC: ED 15:52 → 2W 21:36 → SUATTDRO 21:36 → 2W 23:41

== ENCOUNTER 2021-04-22 14:36 | Inpatient (IN) ==
[~2021-04-22 14:36] MED LIST changes: +CALCIUM CHLORIDE 10% 10 ML SYR IV ONE; -CLINDAMYCIN/D5W 600 MG/54 ML BAG IV SCH; +ETOMIDATE 2 MG/ML 20 ML VIAL IV ONE; -LACTATED RINGER'S 1,000 ML IV SCH; +SODIUM BICARB 8.4% INJ 50 MEQ/50 ML SYR IV ONE; +SODIUM CHLORIDE 0.9% 10ML FLUSH IV ONE; +SUCCINYLCHOLINE CHLORIDE 20 MG/ML 10 ML VIAL IV ONE
[2021-04-22] MEDS ORDERED: RAPID SEQUENCE INDUCTION BAG ONE (14:43)
[2021-04-22] MEDS ORDERED: NOREPINEPHRINE/D5W 8 MG/508 ML IV ONE (14:49)
[2021-04-22] MEDS ORDERED: STAT IV Infusion **Titration per Protocol STA ×7 (14:51→23:03)
[2021-04-22] MEDS: NOREPINEPHRINE/D5W 8 MG/508 ML BAG IV SCH ×2 (14:59→20:53)
[2021-04-22 15:30] LABS: Base Excess VBG -7.7 mEq/L; Hemoglobin 10.1 g/dL (12.0-16.0); Mean Corpuscular Hgb Conc 31.6 g/dL (32-36); Mean Corpuscular Volume 88.6 fL (80-100); Mean Platelet Volume 10.5 fL (7.4-10.4); Oxygen Saturation VBG 61.7 %; Platelet Count 121 K/uL (130-400); RDW Coefficient of Variation 15.9 % (11.5-14.5); RDW Standard Deviation 51.2 fL (36.4-46.3); Red Blood Count 3.61 M/uL (4.2-5.4); pH VBG 7.24 (7.36-7.41)
[2021-04-22] MEDS ORDERED: MIDAZOLAM HCL 125 MG/250 ML BAG IV PRN (15:33)
[2021-04-22] MEDS ORDERED: MEROPENEM CONSULT ACTIVE PRN (15:34)
[2021-04-22] MEDS ORDERED: fentaNYL citrate 100 MCG/2 ML VIAL IV PRN (15:35)
[2021-04-22] MEDS ORDERED: LACTATED RINGER'S 2,000 ML IV ONE (15:37)
[2021-04-22 15:40] LABS: INR 1.1 (0.9-1.1); Partial Thromboplastin Time 26.1 Seconds (21.0-31.0); Prothrombin Time 11.1 Seconds (9.0-12.0)
[2021-04-22] MEDS ORDERED: MEROPENEM 1,000 MG in SYRINGE 0 ML IV SCH (15:45)
[2021-04-22 15:49] LABS: Alanine Aminotransferase 124 (12-78); Albumin Level 2.6 gm/dl (3.4-5.0); Aspartate Aminotransferase 147 U/L (15-37); BUN Creatinine Ratio 20.3 (10-20); Blood Urea Nitrogen 58 mg/dl (7-18); Calcium 8.1 mg/dl (8.5-10.1); Carbon Dioxide 18 mmol/L (21-32); Chloride 108 mmol/L (98-107); Est GFR (African American) 18.8 ml/min; Est GFR (Non-African American) 16.2 ml/min; Glucose 160 mg/dl (70-99); Magnesium 1.7 mg/dl (1.8-2.4); Potassium 4.9 mmol/L (3.5-5.1); Sodium 136 mmol/L (136-145)
[2021-04-22 15:50] LABS: Influenza A virus by PCR Negative (Neg); Influenza B virus by PCR Negative (Neg); RSV by PCR Negative (Neg); SARS CoV2 RNA(COVID-19) InHosp NEGATIVE (Negative)
[2021-04-22] MEDS ORDERED: ATROPINE SULFATE 0.1 MG/ML 5ML SYR IV ONE (15:50)
[2021-04-22] MEDS ORDERED: ATROPINE SO4 1 MG/ML 1ML VIAL ONE (15:50)
[2021-04-22 15:57] LABS: Albumin Globulin Ratio 0.7 (0.9-2); Alkaline Phosphatase 84 U/L (45-117); Globulin 3.6 gm/dl (2.5-4.0); NT Pro B Type Natriuretic Pept > 35000 pg/ml (0-900); Total Protein 6.2 gm/dl (6.4-8.2); Troponin I 0.026 ng/ml (0-0.045)
[2021-04-22] MEDS ORDERED: SODIUM BICARBONATE 8.4% 150 MEQ in DEXTROSE 5% 1,000 ML IV SCH (16:00)
[2021-04-22] MEDS: MIDAZOLAM BOLUS FROM BAG IV PRN ×2 (16:09→17:15)
[2021-04-22 16:15] LABS: Basophils # (auto) 0.02 K/uL (0-0.2); Basophils % (auto) 0.1 %; Immature Granulocytes # (auto) 0.43 K/uL (0.00-0.02); Immature Granulocytes % (auto) 2.5 %; Lymphocytes # (auto) 0.69 K/uL (1.2-3.4); Monocytes # (auto) 0.75 K/uL (0.11-0.59); Monocytes % (auto) 4.3 %; Neutrophils # (auto) 15.41 K/uL (1.4-6.5); Neutrophils % (auto) 89.1 %; RBC Morphology Unremarkable
[2021-04-22] MEDS ORDERED: MEROPENEM 500 MG in SYRINGE 0 ML IV SCH (16:15)
--- NOTE | 2021-04-22 16:21 | XRay Report ---
XR chest 1V portable CLINICAL HISTORY: SEPSIS- intubation COMPARISON STUDY: Chest radiograph March 11, 2021. FINDINGS: Tip of endotracheal tube is 1.8 cm above the tristan. Tip of nasogastric tube is within the body of the stomach. There is no pneumothorax or pleural effusion. Cardiomegaly is noted. Right hilar prominence is noted. Interstitial thickening is present. There are possible patchy bilateral airspac e opacities. IMPRESSION: 1. Satisfactory positioning of the endotracheal and nasogastric tubes. 2. Interstitial thickening and possible patchy bilateral airspace opacities. The findings may reflect pulmonary edema or an infectious process. ACT 112: Negative or not required by law. Electronically signed by: Gui Berumen M.D. 04/22/2021 4:20 PM
[2021-04-22] MEDS: EPINEPHrine/NSS 4 MG/254 ML BAG IV SCH ×4 (16:27→21:05)
--- NOTE | 2021-04-22 17:09 | Emergency Department Note ---
Impression & Plan Septic shock, Acute respiratory failure with hypoxia, Acute kidney injury superimposed on chronic kidney disease, S/P ureteral stent placement, UTI (urinary tract infection), Obtundation, Multifocal pneumonia, PEA (Pulseless electrical activity) ED Provider Note NAME: Alex GRISSOM AGE: 70 SEX: F ARRIVES VIA: Ambulance INFORMANT: Patient ED PROVIDER(S): Evens Ceballos MD CHIEF COMPLAINT: AMS, nausea, SOB PLAN: Disposition: Admit MEDICAL DECISION MAKING: The patient is a 78-year-old woman with a past medical history of paroxysmal atrial fibrillation on Coumadin, hypertension, hyperlipidemia, history of CVA, EDYTA on CPAP with nocturnal hypoxemia, type 2 diabetes, chronic anemia, hypothyroidism, urolithiasis who presents to the emergency department via EMS for altered mental status and hypotension where the patient had been complaining of nausea, generalized weakness, and SOB. The patient presents in the setting of recent admission from 03/10-03/13 for urosepsis in the setting of obstructive uropathy with left renal calculi where she had subsequently underwent ureteral stent placement on 03/11. She had completed 10-day course of antibiotics and yesterday had cystoscopy with left ureteral nephroscopy with basket extraction of stone and exchange of stent catheter. EMS reports O2 saturation was 90 percent on RA but was hypotensive in the 70s. EMS placed IO in the right tibia due to poor IV access and start IV fluid hydration. The patient arrived on nonrebreather with 100% O2 saturation. She appeared obtunded and was briefly able to say her name but then was minimally responsive. Heart rate was in the 70s but was hypotensive. Limited bedside ultrasound was performed and demonstrated minimal IVC respiratory variability and so the patient was considered to be euvolemic at the time and so IV fluids resuscitation and Levophed were administered via IO access while right femoral central line was placed emergently per procedure note. Ultimately the patient's blood pressure did improve with a MAP of 65. However the patient continued to be obtunded and so she was intubated for airway protection per procedure note. The patient was hemodynamically stable for approximately 10 minutes but then did develop bradycardia that rapidly worsened leading to PEA arrest with loss of pulses and minimal mechanical cardiac activity. CODE BLUE was activated and CPR was initiated. The patient was treated with several rounds of epinephrine in addition to 1 g of calcium and amp of bicarb and subsequently developed ROSC. The patient remained tenuous however and had fluctuating bradycardia and so epinephrine drip was initiated. This resulted in some temporary improvement however the patient then developed a second PEA arrest as bradycardia worsened rapidly. Again, after several rounds of epinephrine, repeat calcium and bicarb drip running ROSC was obtained. At this time the patient was on epinephrine drip only and was titrated up until map of 65 was obtained. Given the patient's hemodynamic instability it was determined that exclusion of PE was indicated and so decision was made to obtain CT angio despite the patient's acute on chronic renal failure with creatinine of 2.8 and BUN of 58. CT of the head was negative for ICH. CTA of the chest was negative for PE though did demonstrate multifocal pneumonia which is suspicious for aspiration given the patient's clinical presentation. CT of the abdomen pelvis demonstrates the patient's ureteral stent and no acute findings otherwise. I did review the patient's critical condition with her daughter over the phone who was on her way from her home which is several hours away to arrive to the hospital. EKG without overt acute ischemia. Initial CXR following intubation demonstrates bilateral multifocal PNA. ETT advance after xray 1cm. WBC 17.3K increased from prior and with left shift. H/H 10.1/32.0 similar prior range of values. Platelets 121K, nonspecific and slightly decreased from prior. Initial VBG with pH of 7.24 and otherwise unremarkable. INR 1.1 in the setting of holding warfarin prior to her recent procedure. Chemistry with bicarb of 18 but normal anion gap. Creatinine 2.8 similar to prior values in January however increased from recent values of 1.1-1.2. BUN/cre atinine> 20 suggestive of prerenal etiology. Initial lactic acid 2.4 increased to 8.2 in the setting of PEA arrest x 2. LFTs with AST and ALT 147 and 124, respectively, nonspecific. Troponin 0.026, within normal limits. BNP >35K of unclear significance given the patient's acute on chronic renal failure in the setting of septic shock. Procalcitonin 123 consistent with the patient's suspected septic shock. UA is suspicious for infection with bacteria and WBCs. COVID-19 PCR was negative. Influenza and RSV PCR were also negative. Patient was treated empirically with meropenem On arrival given the patient's history of Pseudomonas and suspicion for aspiration. Case was discussed with Ella Denis PAC, with Dr. Isabelle Jaramillo hospitalist who will evaluate the patient for admission. I also reviewed the case with Dr. Cervantes, ICU multiplex operator. Appreciate recommendations to administer 200 mg of stress dose hydrocortisone following random cortisol level drawn as well as initiating vasopressin for additional blood pressure support. Of note, patient's blood pressure did appear to be stabilizing at 120s/60s as well as heart rate in the 80s prior to initiation of vasopressor while on epinephrine drip at 4.5 mcg/kg/min. Triage Nursing notes reviewed and agree them. Prior medical records reviewed Vital Signs: reviewed and remarkable for hypotension. Differential diagnosis: Sepsis, UTI, pneumonia, metabolic, electrolyte abnormalities, cardiac sources, intracerebral event, toxicologic, neurologic, as well as other pathologies. ER treatment provided: See below. Diagnostics interpreted by me: ECG 1559: NSR, 97 bpm, no ectopy, no overt ST elevation or depression. ECG 1445: NSR, 72 bpm, no ectopy, no overt ST elevation or depression. Cardiac Monitoring: An order for continuous cardiac monitoring was placed and demonstrated NSR, 72 bpm, no ectopy. Sinus bradycardia episodes to 30 bpm leading to PEA. Laboratory studies: See below Imaging studies: See below Consultation(s): Ella Denis PAC, with Dr. Isabelle Jaramillo hospitalist. Dr. Cervantes, ICU multiplex operator HPI: The patient is a 78-year-old woman with a past medical history of paroxysmal atrial fibrillation on Coumadin, hypertension, hyperlipidemia, history of CVA, EDYTA on CPAP with nocturnal hypoxemia, type 2 diabetes, chronic anemia, hypothyroidism, urolithiasis who presents to the emergency department via EMS for altered mental status and hypotension where the patient had been complaining of nausea, generalized weakness, and SOB. The patient presents in the setting of recent admission from 03/10-03/13 for urosepsis in the setting of obstructive uropathy with left renal calculi where she had subsequently underwent ureteral stent placement on 03/11. She had completed 10-day course of antibiotics and yesterday had cystoscopy with left ureteral nephroscopy with basket extraction of stone and exchange of stent catheter. EMS reports O2 saturation was 90 percent on RA but was hypotensive in the 70s. EMS placed IO in the right tibia due to poor IV access and start IV fluid hydration. ROS: See above HPI for pertinent positives & negatives. A total of 10 systems reviewed and were otherwise negative. PAST MEDICAL HISTORY:See Below PAST SURGICAL HISTORY:See Below FAMILY HISTORY:See Below SOCIAL HISTORY:See Below HOME MEDICATIONS:See Below ALLERGIES:See Below VITALS:See Below PHYSICAL EXAMINATION: GENERAL: Obtunded, ill-appearing, severe respiratory distress, BMI 51.5. HENT: Normocephalic, atraumatic. Oropharynx is dry and cracked.. EYES: Normal conjunctiva. Sclera non-icteric. NECK: Supple. No nuchal rigidity. FROM. No JVD. RESPIRATORY: Rhonchi of bilateral lower lung card. CARDIAC: Regular rate, normal rhythm. Extremities warm and well perfused. Pulses equal. ABDOMEN: Soft, non-distended. No tenderness to palpation. No rebound or guarding. No masses. RECTAL: Deferred. MUSCULOSKELETAL: Chest examination reveals no tenderness. The back is symm etrical on inspection without obvious abnormality. There is no CVA tenderness to palpation. No joint edema. LOWER EXTREMITIES: Calves are equal size bilaterally and non-tender. Scant BLE edema. No discoloration. NEURO: Obtunded. GCS 7-9. Neurologic exam was limited. SKIN: No rash or jaundice noted. ED COURSE: Procedures: Central Venous Catheter Indication: Septic shock Catheter type: Triple Lumen Location: Right femoral. Verbal consent was obtained after the risks and benefits were explained, including but not limited to pneumothorax, hemothorax, vessel injury, bleeding, scarring, infection, pain, and bone/joint/nerve damage. At this time, the risks of the procedure are less than the risks of NOT performing the procedure. A time out was taken and the correct patient and site identified. The patient was plac ed in the [] position and the skin was prepped in the standard fashion with chlorhexidine and full sterile drapes applied. The proper landmarks were identified with ultrasound, anesthetized with 1% lidocaine without epinephrine, and the needle was inserted through the skin in the standard fashion. The needle was carefully advanced into blood vessel lumen under ultrasound guidance. The guidewire was placed uneventfully. The vessel is dilated and the catheter was placed. It was sutured into position. There was good blood return from all ports. The patient tolerated the procedure well and there were no complications. Post procedure x-ray was normal. Endotracheal Intubation Indication: Airway protection. The patient was on 100% oxygen via NRB prior to the procedure. Suction, airway equipment, RSI drugs, respiratory equipment, and appropriate personnel were p repared prior to the initiation of the procedure. A time out was taken. Induction was performed with Etomidate and paralysis with Succinylcholine. After observing the clinical benefit of the medications, the airway was easily visualized utilizing a MAC 4 with Glidescope. A 7.5 size ETT tube was placed atraumatically to 23 cm using standard technique. The cuff inflated without signs of malfunction. There were bilateral breath sounds, positive colormetric change, no gastric sounds, a good capnography waveform, and post procedure pulse oximetry was 100%. Post intubation sedation was administered using versed drip with prn fentanyl for analgesia. There were no complications. Critical Care: I have personally spent greater than 135 minutes of critical care time in the direct management of this patient. This includes bedside care, interpretation of diagnostic studies, and testing, discussion with consultants, patient, and family members, and other required patient management activities. This 135 minutes is in excess of all separately billable procedures. Evens Ceballos MD Past Med/Surg History Medical History A-fib Paroxysmal, Follows with Dr. Foster On Coumadin Anemia CKD stage 3 secondary to diabetes CVA (cerebral vascular accident) Silent > Old infarct found on remote CT imaging (dating back to at least 2017) Diastolic dysfunction DM II (diabetes mellitus, type II), controlled NIDDM Dyslipidemia Gastric ulcer due to Helicobacter pylori hx Gout hx Hx of basal cell carcinoma Hx of osteomyelitis Spine (02/2020) treated at [facility] with nursing home antibiotics and oxycodone for pain management Hypertension Hypothyroidism Lymphedema Morbid obesity MRSA (methicillin resistant Staphylococcus aureus) From wound in 2017 - Per Infection Control (04/21/21) pt does not need to be on precautions at this time Sleep apnea CPAP T2DM (type 2 diabetes mellitus) Surgical History H/O basal cell carcinoma excision H/O left knee surgery multiple knee arthroscopy on left H/O repair of rotator cuff right History of arthroplasty of left knee History of cardioversion RASHID with cardioversion (02/07/20): MAC sedation at [facility] History of carpal tunnel surgery History of cataract surgery History of cystoscopy History of esophagogastroduodenoscopy (EGD) History of umbilical hernia repair (09/11/20) Umbilical Hernia Repair with Mesh - Pete Zafar, DO, FACS S/P debridement multiple abdominal debridements at [facility]. 08/2020 S/P panniculectomy S/P ureteral stent placement Status post Mohs surgery Family History Mother Diabetes Heart disease Father Hypertension Stroke Other No family history of adverse response to anesthesia No pertinent family history Social History Smoking Status: Never smoker Second Hand Exposure: No; Do You Dip or Chew Tobacco: No; Tobacco Cessation Education Requested by Patient: No Hx Alcohol Use: Yes Alcohol type: wine Hx Substance Use: No Preferred Language: Iraqi Communication Ability: intubated Hearing Ability: Normal Admissions Consultant Required: No Beliefs That Will Affect Care: None marital status: / Current Living Situation: Alone Current Living Situation Comment: currently living with daughter current occupational status: retired Other Information That Helps Us Care for You: No Feels Safe at Home: Yes Safety Concerns: Feels Safe At This Time Assistive Devices: Cane, Denture - Upper, Denture - Lower, Glasses and Walker Allergies Allergies Allergy/AdvReac Type Severity Reaction Status Date / Time Penicillins Allergy Intermediate URTICARIA; Verified 04/21/21 09:12 PER PT, CAN TAKE AMOXICILLIN erythromycin base AdvReac Mild GI UPSET Verified 04/21/21 09:12 Home Meds Home Medications Medication Instructions Recorded Confirmed allopurinol 100 mg tablet 200 mg PO HS tab 02/15/18 04/22/21 (Zyloprim) omeprazole 20 mg capsule,delayed 20 mg PO QAM 02/15/18 04/22/21 release spironolactone 25 mg tablet 25 mg PO QAM 02/15/18 04/22/21 (Aldactone) magnesium oxide 400 mg PO QPM 02/03/20 04/22/21 repaglinide 0.5 mg tablet 0.5 mg PO TIDM 02/03/20 04/22/21 rosuvastatin 10 mg tablet (Crestor) 10 mg PO HS 02/03/20 04/22/21 bumetanide 1 mg tablet 1 mg PO QAM tab 06/20/20 04/22/21 cholecalciferol (vitamin D3) 25 1,000 unit PO QAM cap 06/20/20 04/22/21 mcg (1,000 unit) capsule metformin 500 mg tablet,extended 500 mg PO BID tab 06/20/20 04/22/21 release 24 hr amiodarone 200 mg tablet 200 mg PO QAM 09/04/20 04/22/21 amlodipine 5 mg tablet 5 mg PO BID 09/04/20 04/22/21 docusate sodium 100 mg capsule 100 mg PO BID 09/04/20 04/22/21 (Colace) warfarin 5 mg tablet 7.5 mg PO QPM 09/04/20 04/22/21 multivitamin 1 tab PO QPM 03/10/21 04/22/21 ibuprofen 600 mg tablet 600 mg PO BID 04/14/21 04/22/21 levothyroxine 112 mcg tablet 112 mcg PO QAM 04/14/21 04/22/21 lisinopril 10 mg tablet 10 mg PO QPM 04/14/21 04/22/21 tamsulosin 0.4 mg capsule (Flomax) 0.4 mg PO HS 04/14/21 04/22/21 Previous Rx's Medication Instructions Recorded metoprolol tartrate 50 mg tablet 50 mg PO BID #0 tab 02/09/20 levofloxacin 500 mg tablet 500 mg PO DAILY 3 Days #3 tab 04/21/21 phenazopyridine 200 mg tablet 200 mg PO Q8H PRN #10 tab 04/21/21 (Pyridium) tamsulosin 0.4 mg capsule 0.4 mg PO HS #30 cap 04/21/21 Results & Data (ED) Vital Signs Vital Signs - 24 hr 04/22/21 14:38 04/22/21 14:48 04/22/21 14:50 Temperature Temperature Source Pulse Rate 71 Pulse Rate [Apical] 71 Pulse Rhythm [Apical] Respiratory Rate 22 29 H Respiratory Effort / Characteristics Non-Labored Spontaneous Non-Labored Spontaneous Respiratory Depth Normal Normal Blood Pressure [Left Arm] Blood Pressure [Right Arm] Blood Pressure Mean [Left Arm] Blood Pressure Mean [Right Arm] Blood Pressure Position [Right Arm] Pulse Oximetry 100 100 Oxygen Delivery Method Non-rebreather Non-rebreather Non-rebreather Oxygen Flow Rate 15 15 15 Fraction of Inspired Oxygen Sepsis New/Unexplained Change in Mental Status Yes Sepsis Action Taken by Nursing Physician Notified End-Tidal CO2 End Tidal CO2 (18-54mmHg) 04/22/21 14:52 04/22/21 15:22 04/22/21 15:34 Temperature Temperature Source Pulse Rate Pulse Rate [Apical] Pulse Rhythm [Apical] Respiratory Rate Respiratory Effort / Characteristics Non-Labored Spontaneous Respiratory Depth Blood Pressure [Left Arm] Blood Pressure [Right Arm] 85/42 L Blood Pressure Mean [Left Arm] Blood Pressure Mean [Right Arm] 56 Blood Pressure Position [Right Arm] Lying Pulse Oximetry 100 99 Oxygen Delivery Method Non-rebreather Oxygen Flow Rate 15 Fraction of Inspired Oxygen Sepsis New/Unexplained Change in Mental Status Sepsis Action Taken by Nursing End-Tidal CO2 End Tidal CO2 (18-54mmHg) 04/22/21 15:52 04/22/21 16:01 04/22/21 16:15 Temperature Temperature Source Pulse Rate Pulse Rate [Apical] 127 H 97 H Pulse Rhythm [Apical] Irregular Respiratory Rate 18 17 Respiratory Effort / Characteristics Respiratory Depth Blood Pressure [Left Arm] 72/42 L Blood Pressure [Right Arm] 140/39 L 165/81 H Blood Pressure Mean [Left Arm] 52 Blood Pressure Mean [Right Arm] 72 109 Blood Pressure Position [Right Arm] Lying Lying Pulse Oximetry 98 Oxygen Delivery Method Mechanical Vent Oxygen Flow Rate 100 Fraction of Inspired Oxygen Sepsis New/Unexplained Change in Mental Status Sepsis Action Taken by Nursing End-Tidal CO2 End Tidal CO2 (18-54mmHg) 52 04/22/21 16:18 04/22/21 16:25 04/22/21 16:36 Temperature Temperature Source Pulse Rate Pulse Rate [Apical] 78 Pulse Rhythm [Apical] Respiratory Rate 20 Respiratory Effort / Characteristics Respiratory Depth Blood Pressure [Left Arm] 92/48 L Blood Pressure [Right Arm] 62/38 L Blood Pressure Mean [Left Arm] 62 Blood Pressure Mean [Right Arm] 46 Blood Pressure Position [Right Arm] Pulse Oximetry Oxygen Delivery Method Mechanical Vent Oxygen Flow Rate Fraction of Inspired Oxygen Sepsis New/Unexplained Change in Mental Status Sepsis Action Taken by Nursing End-Tidal CO2 End Tidal CO2 (18-54mmHg) 33 04/22/21 16:37 04/22/21 16:38 04/22/21 16:41 Temperature 37.1 C 37.1 C Temperature Source Joseph Cath ( Temp Sensing) Joseph Cath ( Temp Sensing) Pulse Rate Pulse Rate [Apical] 86 87 83 Pulse Rhythm [Apical] Respiratory Rate 24 30 H 22 Respiratory Effort / Characteristics Respiratory Depth Blood Pressure [Left Arm] Blood Pressure [Right Arm] 91/57 L 82/57 L Blood Pressure Mean [Left Arm] Blood Pressure Mean [Right Arm] 68 65 Blood Pressure Position [Right Arm] Lying Pulse Oximetry 86 L 89 L Oxygen Delivery Method Mechanical Vent Mechanical Vent Oxygen Flow Rate 100 Fraction of Inspired Oxygen Sepsis New/Unexplained Change in Mental Status Sepsis Action Taken by Nursing End-Tidal CO2 End Tidal CO2 (18-54mmHg) 36 28 04/22/21 16:44 04/22/21 16:45 04/22/21 17:10 Temperature 37.3 C Temperature Source Joseph Cath ( Temp Sensing) Joseph Cath ( Temp Sensing) Pulse Rate 82 Pulse Rate [Apical] 85 52 L Pulse Rhythm [Apical] Respiratory Rate 23 22 26 H Respiratory Effort / Characteristics Respiratory Depth Blood Pressure [Left Arm] Blood Pressure [Right Arm] 97/50 L Blood Pressure Mean [Left Arm] Blood Pressure Mean [Right Arm] 65 Blood Pressure Position [Right Arm] Lying Pulse Oximetry 93 92 Oxygen Delivery Method Mechanical Vent Mechanical Vent Oxygen Flow Rate 100 Fraction of Inspired Oxygen 100 Sepsis New/Unexplained Change in Mental Status Sepsis Action Taken by Nursing End-Tidal CO2 36 End Tidal CO2 (18-54mmHg) 28 Laboratory Data Attestation: I reviewed the patient's lab results. Result diagrams: 04/22/21 19:52 04/22/21 19:52 Lab Results 04/22/21 04/22/21 04/22/21 Range/Units 14:57 15:05 15:16 WBC 17.30 H (4.8-10.8) K/uL RBC 3.61 L (4.2-5.4) M/uL Hgb 10.1 L (12.0-16.0) g/dL Hct 32.0 L (37-47) % MCV 88.6 (80-100) fL MCH 28.0 (25-34) pg MCHC 31.6 L (32-36) g/dL RDW Std Deviation 51.2 H (36.4-46.3) fL RDW Coeff of Yvette 15.9 H (11.5-14.5) % Plt Count 121 L (130-400) K/uL MPV 10.5 H (7.4-10.4) fL Immature Gran % (Auto) 2.5 % Neut % (Auto) 89.1 % Lymph % (Auto) 4.0 % [place] % (Auto) 4.3 % Eos % (Auto) 0.0 % Baso % (Auto) 0.1 % Neut # (Auto) 15.41 H (1.4-6.5) K/uL Lymph # (Auto) 0.69 L (1.2-3.4) K/uL [place] # (Auto) 0.75 H (0.11-0.59) K/uL Eos # (Auto) 0.00 (0-0.5) K/uL Baso # (Auto) 0.02 (0-0.2) K/uL Immature Gran # (Auto) 0.43 H (0.00-0.02) K/uL RBC Morphology Unremarkable PT (9.0-12.0) Seconds INR (0.9-1.1) APTT (21.0-31.0) Seconds PTT Ratio VBG pH (7.36-7.41) VBG pCO2 (38-50) mmHg VBG pO2 mmHg VBG HCO3 mmol/L VBG O2 Saturation % VBG Base Excess mEq/L Barometric Pressure mm/Hg Sodium (136-145) mmol/L Potassium (3.5-5.1) mmol/L Chloride (98-107) mmol/L Carbon Dioxide (21-32) mmol/L Anion Gap (3-11) BUN (7-18) mg/dl Creatinine (0.6-1.2) mg/dl Est Cr Clr Drug Dosing Est GFR ( Amer) ml/min Est GFR (Non-Af Amer) ml/min BUN/Creatinine Ratio (10-20) Glucose (70-99) mg/dl POC Glucose 303 H* (70-99) mg/dl Lactate (0.4-2.0) mmol/L Calcium (8.5-10.1) mg/dl Magnesium (1.8-2.4) mg/dl Total Bilirubin (0.2-1) mg/dl AST (15-37) U/L ALT (12-78) Alkaline Phosphatase (45-117) U/L Troponin I (0-0.045) ng/ml NT-Pro-B Natriuret Pep (0-900) pg/ml Total Protein (6.4-8.2) gm/dl Albumin (3.4-5.0) gm/dl Globulin (2.5-4.0) gm/dl Albumin/Globulin Ratio (0.9-2) Procalcitonin (0-0.5) ng/ml SARS-CoV-2 (PCR) NEGATIVE (Negative) Influenza Type A (PCR) Negative (Neg) Influenza Type B (PCR) Negative (Neg) RSV (RT-PCR) Negative (Neg) 04/22/21 04/22/21 04/22/21 Range/Units 15:16 15:16 15:16 WBC (4.8-10.8) K/uL RBC (4.2-5.4) M/uL Hgb (12.0-16.0) g/dL Hct (37-47) % MCV (80-100) fL MCH (25-34) pg MCHC (32-36) g/dL RDW Std Deviation (36.4-46.3) fL RDW Coeff of Yvette (11.5-14.5) % Plt Count (130-400) K/uL MPV (7.4-10.4) fL Immature Gran % (Auto) % Neut % (Auto) % Lymph % (Auto) % [place] % (Auto) % Eos % (Auto) % Baso % (Auto) % Neut # (Auto) (1.4-6.5) K/uL Lymph # (Auto) (1.2-3.4) K/uL [place] # (Auto) (0.11-0.59) K/uL Eos # (Auto) (0-0.5) K/uL Baso # (Auto) (0-0.2) K/uL Immature Gran # (Auto) (0.00-0.02) K/uL RBC Morphology PT 11.1 (9.0-12.0) Seconds INR 1.1 (0.9-1.1) APTT 26.1 (21.0-31.0) Seconds PTT Ratio 1.0 VBG pH (7.36-7.41) VBG pCO2 (38-50) mmHg VBG pO2 mmHg VBG HCO3 mmol/L VBG O2 Saturation % VBG Base Excess mEq/L Barometric Pressure mm/Hg Sodium 136 (136-145) mmol/L Potassium 4.9 (3.5-5.1) mmol/L Chloride 108 H (98-107) mmol/L Carbon Dioxide 18 L (21-32) mmol/L Anion Gap 10.0 (3-11) BUN 58 H (7-18) mg/dl Creatinine 2.83 H (0.6-1.2) mg/dl Est Cr Clr Drug Dosing Not Reportable Est GFR ( Amer) 18.8 ml/min Est GFR (Non-Af Amer) 16.2 ml/min BUN/Creatinine Ratio 20.3 H (10-20) Glucose 160 H (70-99) mg/dl POC Glucose (70-99) mg/dl Lactate 2.4 H* (0.4-2.0) mmol/L Calcium 8.1 L (8.5-10.1) mg/dl Magnesium 1.7 L (1.8-2.4) mg/dl Total Bilirubin 1.0 (0.2-1) mg/dl AST 147 H (15-37) U/L ALT 124 H (12-78) Alkaline Phosphatase 84 (45-117) U/L Troponin I 0.026 (0-0.045) ng/ml NT-Pro-B Natriuret Pep > 20651 H (0-900) pg/ml Total Protein 6.2 L (6.4-8.2) gm/dl Albumin 2.6 L (3.4-5.0) gm/dl Globulin 3.6 (2.5-4.0) gm/dl Albumin/Globulin Ratio 0.7 L (0.9-2) Procalcitonin (0-0.5) ng/ml SARS-CoV-2 (PCR) (Negative) Influenza Type A (PCR) (Neg) Influenza Type B (PCR) (Neg) RSV (RT-PCR) (Neg) 04/22/21 04/22/21 Range/Units 15:16 15:16 WBC (4.8-10.8) K/uL RBC (4.2-5.4) M/uL Hgb (12.0-16.0) g/dL Hct (37-47) % MCV (80-100) fL MCH (25-34) pg MCHC (32-36) g/dL RDW Std Deviation (36.4-46.3) fL RDW Coeff of Yvette (11.5-14.5) % Plt Count (130-400) K/uL MPV (7.4-10.4) fL Immature Gran % (Auto) % Neut % (Auto) % Lymph % (Auto) % [place] % (Auto) % Eos % (Auto) % Baso % (Auto) % Neut # (Auto) (1.4-6.5) K/uL Lymph # (Auto) (1.2-3.4) K/uL [place] # (Auto) (0.11-0.59) K/uL Eos # (Auto) (0-0.5) K/uL Baso # (Auto) (0-0.2) K/uL Immature Gran # (Auto) (0.00-0.02) K/uL RBC Morphology PT (9.0-12.0) Seconds INR (0.9-1.1) APTT (21.0-31.0) Seconds PTT Ratio VBG pH 7.24 L (7.36-7.41) VBG pCO2 46 (38-50) mmHg VBG pO2 38 mmHg VBG HCO3 19 mmol/L VBG O2 Saturation 61.7 % VBG Base Excess -7.7 mEq/L Barometric Pressure 729.6 mm/Hg Sodium (136-145) mmol/L Potassium (3.5-5.1) mmol/L Chloride (98-107) mmol/L Carbon Dioxide (21-32) mmol/L Anion Gap (3-11) BUN (7-18) mg/dl Creatinine (0.6-1.2) mg/dl Est Cr Clr Drug Dosing Est GFR ( Amer) ml/min Est GFR (Non-Af Amer) ml/min BUN/Creatinine Ratio (10-20) Glucose (70-99) mg/dl POC Glucose (70-99) mg/dl Lactate (0.4-2.0) mmol/L Calcium (8.5-10.1) mg/dl Magnesium (1.8-2.4) mg/dl Total Bilirubin (0.2-1) mg/dl AST (15-37) U/L ALT (12-78) Alkaline Phosphatase (45-117) U/L Troponin I (0-0.045) ng/ml NT-Pro-B Natriuret Pep (0-900) pg/ml Total Protein (6.4-8.2) gm/dl Albumin (3.4-5.0) gm/dl Globulin (2.5-4.0) gm/dl Albumin/Globulin Ratio (0.9-2) Procalcitonin 123.93 H (0-0.5) ng/ml SARS-CoV-2 (PCR) (Negative) Influenza Type A (PCR) (Neg) Influenza Type B (PCR) (Neg) RSV (RT-PCR) (Neg) Administered Medications Albuterol (Albut/Ipratrop 3mg/0.5mg Neb 3 Ml Vial) 3 ml NEB Q4R PRN; Protocol PRN Reason: Shortness Of Breath Or Wheezing Stop: 05/22/21 22:59 Last Admin: 04/22/21 21:44 Dose: 3 ml Documented by: [id number] Fentanyl Citrate (Fentanyl Citrate 100 Mcg/2 Ml Vial) 50 mcg IV Q1H PRN PRN Reason: Sedation Stop: 05/06/21 15:34 Last Admin: 04/22/21 15:48 Dose: 50 mcg Documented by: [id number] Norepinephrine Bitartrate (Levophed/D5w) 8 mg in 508 mls @ 23.432 mls/hr IV [id number]; Protocol Stop: 05/22/21 14:59 Last Admin: 04/22/21 20:53 Dose: 0.05 mcg/kg/min, 23.4 mls/hr Documented by: [id number] Cosigned by: [id number] Titration: 04/22/21 16:23 Dose: 0 mcg/kg/min, 0 mls/hr Documented by: [id number] Titration: 04/22/21 16:18 Dose: 0.4 mcg/kg/min, 187.5 mls/hr Documented by: [id number] Titration: 04/22/21 16:13 Dose: 0.35 mcg/kg/min, 164 mls/hr Documented by: [id number] Titration: 04/22/21 16:00 Dose: 0.25 mcg/kg/min, 117.2 mls/hr Documented by: [id number] Titration: 04/22/21 15:33 Dose: 0.15 mcg/kg/min, 70.3 mls/hr Documented by: [id number] Titration: 04/22/21 15:13 Dose: 0.1 mcg/kg/min, 46.9 mls/hr Documented by: [id number] Admin: 04/22/21 14:59 Dose: 0.05 mcg/kg/min, 23.4 mls/hr Documented by: [id number] Cosigned by: [id number] Midazolam HCl (Versed) 125 mg in 250 mls @ 2 mls/hr IV .Q96H PRN; Protocol PRN Reason: Sedation Stop: 05/22/21 15:32 Last Titration: 04/22/21 19:11 Dose: 1 mg/hr, 2 mls/hr Documented by: [id number] Cosigned by: [id number] Admin: 04/22/21 16:07 Dose: 1 mg/hr, 2 mls/hr Documented by: [id number] Cosigned by: [id number] Sodium Bicarbonate 150 meq/ (Dextrose) 1,150 mls @ 150 mls/hr IV .Q7H40M [facility] Stop: 05/22/21 15:59 Last Infusion: 04/22/21 19:10 Dose: 100 mls/hr Documented by: [id number] Admin: 04/22/21 16:40 Dose: 100 mls/hr Documented by: [id number] Vasopressin 20 units/ Sodium (Chloride) 101 mls @ 12.12 mls/hr IV .Q8H20M [facility] Stop: 05/22/21 17:29 Last Infusion: 04/22/21 19:10 Dose: 0.04 unit/min, 12.1 mls/hr Documented by: [id number] Cosigned by: [id number] Admin: 04/22/21 17:55 Dose: 0.04 unit/min, 12.1 mls/hr Documented by: [id number] Cosigned by: [id number] Fentanyl Citrate (Fentanyl Citrate) 2,500 mcg in 250 mls @ 2.5 mls/hr IV .Q96H [facility]; Protocol Stop: 05/06/21 18:59 Last Admin: 04/22/21 20:57 Dose: 75 mcg/hr, 7.5 mls/hr Documented by: [id number] Cosigned by: [id number] Midazolam HCl (Midazolam Bolus From Bag) 2 mg IV Q60M PRN PRN Reason: Sedation Stop: 05/22/21 15:32 Last Admin: 04/22/21 17:15 Dose: 2 mg Documented by: [id number] Admin: 04/22/21 16:09 Dose: 5 mg Documented by: [id number] Discontinued Medications Atropine Sulfate (Atropine Sulfate 0.1 Mg/Ml 5ml Syr) Confirm Administered Dose 0.5 mg IV .STK-MED ONE Stop: 04/22/21 15:51 Last Admin: 04/22/21 18:16 Dose: Not Given Documented by: [id number] Atropine Sulfate (Atropine So4 1 Mg/Ml 1ml Vial) Confirm Administered Dose 1 mg .ROUTE .STK-MED ONE Stop: 04/22/21 15:51 Last Admin: 04/22/21 18:16 Dose: Not Given Documented by: [id number] Hydrocortisone Sodium Succinate (Hydrocortisone Sod Succinate 100 Mg/2 Ml Vial) 200 mg IV NOW STA Stop: 04/22/21 17:26 Last Admin: 04/22/21 17:45 Dose: 200 mg Documented by: [id number] Lactated Ringer's (Lr) 2,000 mls @ 999 mls/hr IV .Q2H1M ONE Stop: 04/22/21 17:37 Last Infusion: 04/22/21 18:48 Dose: 0 mls/hr Documented by: [id number] Admin: 04/22/21 16:00 Dose: 999 mls/hr Documented by: [id number] Meropenem 500 mg/ Syringe 10 mls @ 2 mls/min IV Q6H [facility]; Protocol Stop: 04/22/21 16:19 Last Admin: 04/22/21 16:39 Dose: 2 mls/min Documented by: [id number] Epinephrine HCl () 4 mg in 254 mls @ 47.092 mls/hr IV .Q5H24M [facility]; Protocol Stop: 04/22/21 21:59 Last Admin: 04/22/21 21:05 Dose: 0.3 mcg/kg/min, 141.3 mls/hr Documented by: [id number] Cosigned by: [id number] Titration: 04/22/21 21:05 Dose: 0.4 mcg/kg/min, 188.4 mls/hr Documented by: [id number] Cosigned by: [id number] Titration: 04/22/21 21:05 Dose: 0.4 mcg/kg/min, 188.4 mls/hr Documented by: [id number] Cosigned by: [id number] Admin: 04/22/21 19:59 Dose: 0.45 mcg/kg/min, 211.9 mls/hr Documented by: [id number] Cosigned by: [id number] Titration: 04/22/21 19:59 Dose: 0.45 mcg/kg/min, 211.9 mls/hr Documented by: [id number] Cosigned by: [id number] Titration: 04/22/21 19:11 Dose: 0.45 mcg/kg/min, 211.9 mls/hr Documented by: [id number] Cosigned by: [id number] Admin: 04/22/21 18:47 Dose: 0.45 mcg/kg/min, 211.9 mls/hr Documented by: [id number] Cosigned by: [id number] Titration: 04/22/21 18:06 Dose: 0.45 mcg/kg/min, 211.9 mls/hr Documented by: [id number] Cosigned by: [id number] Titration: 04/22/21 17:32 Dose: 0.45 mcg/kg/min, 211.9 mls/hr Documented by: [id number] Titration: 04/22/21 17:16 Dose: 0.4 mcg/kg/min, 188.4 mls/hr Documented by: [id number] Titration: 04/22/21 17:13 Dose: 0.35 mcg/kg/min, 164.8 mls/hr Documented by: [id number] Titration: 04/22/21 17:00 Dose: 0.3 mcg/kg/min, 141.3 mls/hr Documented by: [id number] Titration: 04/22/21 16:35 Dose: 0.2 mcg/kg/min, 94.2 mls/hr Documented by: [id number] Titration: 04/22/21 16:32 Dose: 0.15 mcg/kg/min, 70.6 mls/hr Documented by: [id number] Admin: 04/22/21 16:27 Dose: 0.1 mcg/kg/min, 47.1 mls/hr Documented by: [id number] Cosigned by: [id number] Miscellaneous (Rapid Sequence Induction Bag) Confirm Administered Dose 1 ea .ROUTE .STK-MED ONE Stop: 04/22/21 14:44 Last Admin: 04/22/21 15:28 Dose: 1 ea Documented by: [id number] Norepinephrine Bitartrate (Norepinephrine/D5w 8 Mg/508 Ml) Confirm Administered Dose 8 mg IV .TechPepper ONE Stop: 04/22/21 14:50 Last Admin: 04/22/21 15:00 Dose: Not Given Documented by: [id number] Imaging Data Radiologist's Impression: Abdomen/Pelvis CT 04/22/21 15:36 CT OF THE ABDOMEN AND PELVIS WITH CONTRAST CLINICAL HISTORY: sepsis, obtunded, ?infected renal stone COMPARISON STUDY: CT of the abdomen and pelvis March 10, 2021. TECHNIQUE: Following IV administration of 120 mL of Optiray, axial images of the abdomen and pelvis were obtained from the lung bases to the proximal femurs. Images were reviewed in the axial, sagittal, and coronal planes. IV contrast was administered without complication. Automated exposure control was utilized for the study. A dose lowering technique was utilized adhering to the principles of ALARA. FINDINGS: Multifocal consolidation and groundglass opacities are noted within the lower lungs. Findings are better depicted on the chest CT which will be reported separately. Cardiomegaly is noted. Bilateral anterior rib fractures are also better depicted on the chest CT. There is trace perihepatic ascites. Body wall edema is present. There is no biliary or pancreatic ductal dilatation. The spleen, adrenal glands and pancreas are unremarkable. There is no evidence for a bowel obstruction. The caliber and wall thickness of small and large bowel are normal. Sigmoid diverticulosis is noted without evidence for acute dive rticulitis. There is no hydronephrosis. Left ureteral stent is in place. Proximal aspect of stent is within the inferior left collecting system. A Joseph balloon is present within the bladder. Bilateral renal calculi measure up to 5 mm. No ureteral calculi identified. Left collecting system is duplicated. Small amount of gas within the left collecting system is likely from recent procedure. Suspected left renal cysts are present. This exam is mildly compromised by motion artifact. No acute fracture or suspicious lesion is identified within visualized skeletal structures. Multilevel degenerative changes within the lumbar spine are present. Right femoral venous catheter is in place. IMPRESSION: 1. Left ureteral stent in place. Exam mildly compromised by motion artifact but no ureteral calculi or fragments identified. Bilateral nephrolithiasis. 2. Multifocal consolidation and groundglass opacities within the lungs which could reflect pneumonia or aspiration pneumonitis. Findings better depicted on the chest CT which will be reported separately. 3. Trace perihepatic ascites. Body wall edema. 4. No bowel obstruction. No bowel wall thickening. ACT 112: Negative or not required by law. Electronically signed by: Gui Berumen M.D. 04/22/2021 5:51 PM Chest CTA 04/22/21 15:36 CT ANGIOGRAPHY OF THE CHEST, PULMONARY EMBOLUS PROTOCOL CLINICAL HISTORY: Altered mental status. COMPARISON STUDY: Chest radiograph March 11, 2021 and chest radiograph performed earlier today. TECHNIQUE: Following IV administration of Optiray, helical axial images of the chest were obtained utilizing the pulmonary embolus protocol. Maximal intensity projections and sagittal and coronal reformats were viewed on an independent 3D workstation. IV contrast was administered without complication. Automated exposure control was utilized for the study. A dose lowering technique was utilized adhering to the principles of ALARA. CT DOSE: 4011.81 mGy.cm FINDINGS: No pulmonary emboli are identified although the segmental and s ubsegmental pulmonary arteries are suboptimally assessed due to respiratory motion. There is no thoracic aortic dissection. Moderate cardiomegaly is noted. There is reflux of contrast into the IVC and hepatic veins. Endotracheal and nasogastric tubes are satisfactorily positioned. No pneumothorax or pleural effusion is noted. There are multiple acute bilateral anterior rib fractures. Extensive multifocal consolidation and groundglass opacities within the lungs are noted. The abdomen and pelvis will be reported separately. There are prominent mediastinal and bilateral hilar lymph nodes. IMPRESSION: 1. No pulmonary emboli identified although segmental and subsegmental pulmonary arteries suboptimally assessed due to respiratory motion. 2. Extensive multifocal consolidation and groundglass opacities within the luisito ngs. The findings favor pneumonia or aspiration pneumonitis. Superimposed pulmonary edema would be difficult to exclude. 3. Moderate cardiomegaly. 4. Multiple acute nondisplaced anterior bilateral rib fractures. No pneumothorax. 5. Satisfactory positioning of the endotracheal and nasogastric tubes. ACT 112: Negative or not required by law. Electronically signed by: Gui Berumen M.D. 04/22/2021 5:[address] 04/22/21 15:36 CT OF THE HEAD WITHOUT CONTRAST CLINICAL HISTORY: obtunded. COMPARISON STUDY: Head CT July 19, 2017. MRI of the brain July 21, 2017. TECHNIQUE: Helical axial images of the head were obtained without IV contrast. Automated exposure control was utilized for the study. A dose lowering technique was utilized adhering to the principles of ALARA. FINDINGS: This exam is mildly compromised by motion artifact. White matter hypodensities are similar to prior exam and favor small vessel disease. Endotracheal and nasogastric tubes are partially imaged. No acute intracranial hemorrhage, midline shift or mass effect is present. The ventricular system is unremarkable. The basal cisterns are patent. No extra-axial collections are present. There are no findings to suggest acute dural sinus thrombosis or acute territorial infarct. No significant calvarial abnormalities are present. Visualized portions of the sinuses and mastoid air cells are clear. IMPRESSION: 1. No acute intracranial findings. No significant change in appearance of the brain. 3. Exam mildly compromised by motion artifact. ACT 112: Negative or not required by law. Electronically signed by: Gui Berumen M.D. 04/22/2021 5:19 PM Chest X-Ray 04/22/21 15:42 XR chest 1V portable CLINICAL HISTORY: SEPSIS- intubation COMPARISON STUDY: Chest radiograph March 11, 2021. FINDINGS: Tip of endotracheal tube is 1.8 cm above the tristan. Tip of nasogastric tube is within the body of the stomach. There is no pneumothorax or pleural effusion. Cardiomegaly is noted. Right hilar prominence is noted. Interstitial thickening is present. There are possible patchy bilateral airspace opacities. IMPRESSION: 1. Satisfactory positioning of the endotracheal and nasogastric tubes. 2. Interstitial thickening and possible patchy bilateral airspace opacities. The findings may reflect pulmonary edema or an infectious process. ACT 112: Negative or not required by law. Electronically signed by: Gui Berumen M.D. 04/22/2021 4:20 PM Discharge Plan Visit Data Chief Complaint: Altered Mental Status Stated Complaint: AMS Discharge Problem: Septic shock, Acute respiratory failure with hypoxia, Acute kidney injury superimposed on chronic kidney disease, S/P ureteral stent placement, UTI (urinary tract infection), Obtundation, Multifocal pneumonia, PEA (Pulseless electrical activity) Patient Disposition: Admitted As Inpatient Discharge Instructions Interventions: ED Discharge Assessment Last Done: 04/22/21 17:55
--- NOTE | 2021-04-22 17:21 | CT Scan Report ---
CT OF THE HEAD WITHOUT CONTRAST CLINICAL HISTORY: obtunded. COMPARISON STUDY: Head CT July 19, 2017. MRI of the brain July 21, 2017. TECHNIQUE: Helical axial images of the head were obtained without IV contrast. Automated exposure con trol was utilized for the study. A dose lowering technique was utilized adhering to the principles o f ALARA. FINDINGS: This exam is mildly compromised by motion artifact. White matter hypodensities are similar to prior exam and favor small vessel disease. Endotracheal and nasogastric tubes are partially imaged . No acute intracranial hemorrhage, midline shift or mass effect is present. The ventricular system i s unremarkable. The basal cisterns are patent. No extra-axial collections are present. There are no f indings to suggest acute dural sinus thrombosis or acute territorial infarct. No significant calvaria l abnormalities are present. Visualized portions of the sinuses and mastoid air cells are clear. IMPRESSION: 1. No acute intracranial findings. No significant change in appearance of the brain. 3. Exam mildly compromised by motion artifact. ACT 112: Negative or not required by law. Electronically signed by: Gui Berumen M.D. 04/22/2021 5:19 PM
[2021-04-22] MEDS ORDERED: HYDROCORTISONE SOD SUCCINATE 100 MG/2 ML VIAL IV STA (17:25)
--- NOTE | 2021-04-22 17:37 | CT Scan Report ---
CT ANGIOGRAPHY OF THE CHEST, PULMONARY EMBOLUS PROTOCOL CLINICAL HISTORY: Altered mental status. COMPARISON STUDY: Chest radiograph March 11, 2021 and chest radiograph performed earlier today. TECHNIQUE: Following IV administration of Optiray, helical axial images of the chest were obtained ut ilizing the pulmonary embolus protocol. Maximal intensity projections and sagittal and coronal refor mats were viewed on an independent 3D workstation. IV contrast was administered without complication . Automated exposure control was utilized for the study. A dose lowering technique was utilized adh ering to the principles of ALARA. CT DOSE: 4011.81 mGy.cm FINDINGS: No pulmonary emboli are identified although the segmental and subsegmental pulmonary arter ies are suboptimally assessed due to respiratory motion. There is no thoracic aortic dissection. Mode rate cardiomegaly is noted. There is reflux of contrast into the IVC and hepatic veins. Endotracheal and nasogastric tubes are satisfactorily positioned. No pneumothorax or pleural effusion is noted. Th ere are multiple acute bilateral anterior rib fractures. Extensive multifocal consolidation and groun dglass opacities within the lungs are noted. The abdomen and pelvis will be reported separately. Ther e are prominent mediastinal and bilateral hilar lymph nodes. IMPRESSION: 1. No pulmonary emboli identified although segmental and subsegmental pulmonary arteries suboptimally assessed due to respiratory motion. 2. Extensive multifocal consolidation and groundglass opacities within the lungs. The findings favor pneumonia or aspiration pneumonitis. Superimposed pulmonary edema would be difficult to exclude. 3. Moderate cardiomegaly. 4. Multiple acute nondisplaced anterior bilateral rib fractures. No pneumothorax. 5. Satisfactory positioning of the endotracheal and nasogastric tubes. ACT 112: Negative or not required by law. Electronically signed by: Gui Berumen M.D. 04/22/2021 5:35 PM
--- NOTE | 2021-04-22 17:49 | History & Physical Report ---
Date of Service April 22, 2021 Assessment & Plan (1) Encephalopathy acute: (2) Septic shock: Plan: This is a 70yo F with a PMH of paroxysmal A Fib on coumadin, HTN, HLD, history of CVA, DM II, EDYTA (CPAP at bedtime), hypothyroidism, anemia and other medical problems listed below who was brought into ED in obtunded state. Was recently admitted to [facility] 03/10-03/13 for Proteus bacteremia from complicated UTI in the setting of obstructive uropathy Hypotensive in ED with elevated procal, lactate and WBC consistent with septic shock in setting of underlying aspiration pneumonitis/pneumonia on chest CT as well as possible UTI CT head negative for acute intracranial process CTA chest which was negative for PE but did show bilateral infiltrates consistent with aspiration pneumonitis/pneumonia CT abdomen pelvis which showed patent ureteral stent and was negative for acute process Requiring pressor support in ICU - mgmt per chrome worker Continue empiric meropenem and vanco - follow cultures (3) Cardiac arrest: Plan: Went into PEA arrest in the ED following intubation but ROSC was achieved with compressions and epinephrine Continue monitoring in ICU (4) Acute respiratory failure with hypoxia: (5) Aspiration into airway: Plan: Intubated, continue empiric abx (6) Acute kidney injury superimposed on chronic kidney disease: Plan: In setting of infection, recent uropathy. Cr 2.69 (baseline ~1.1). Continue to monitor (7) S/P ureteral stent placement: Plan: S/p cystoscopy with left ureteral stent replacement yesterday, 04/21/2021, by Dr. Edwards. Stent appears patent in CT abd/pelvis today (8) HTN (hypertension): Plan: Hypotensive requiring pressor support. Hold home BP meds (9) A-fib: Plan: Anticoagulated on coumadin. On Lopressor BID at home (10) T2DM (type 2 diabetes mellitus): Plan: Holding home meds. Insulin drip in ICU (11) Sleep apnea: Plan: CPAP HS at home DVT Ppx: coumadin Code status: FULL PCP: Haim Dispo: Admitted to ICU Patient seen in collaboration with Dr. Walton. Please see addendum. History of Present Illness Chief Complaint: AMS Primary Care Provider: Micah Whitmore MD This is a 70yo F with a PMH of paroxysmal A Fib on coumadin, HTN, HLD, history of CVA, DM II, EDYTA (CPAP at bedtime), hypothyroidism, anemia and other medical problems listed below who was brought into ED in obtunded state. Was recently admitted to [facility] 03/10-03/13 for Proteus bacteremia from complicated UTI in the setting of obstructive uropathy. Was discharged on 2 weeks of cefdinir therapy that she completed. Has followed up with urology as an outpatient and underwent cystoscopy with left ureteral stent replacement yesterday, 04/21/2021, by Dr. Edwards. Was complaining of shortness of breath yesterday and was found to be obtunded and hypotensive earlier today and brought into ED for further evaluation. In ER, patient found to be hypotensive, requiring central line access in the start of pressors. Remained obtunded and was intermittently hypoxic and was thus intubated for airway protection. Procalcitonin, lactate and white blood cell counts were all elevated and patient was covered with empiric meropenem for septic shock treatment. Subsequently went into PEA arrest in the ED following intubation but ROSC was achieved with compressions and epinephrine. Once stabilized, underwent CT head which was negative for acute intracranial process, CTA chest which was negative for PE but did show bilateral infiltrates consistent with aspiration pneumonitis/pneumonia and CT abdomen pelvis which showed patent ureteral stent and was negative for acute process. Remained on Levophed and epinephrine pressor support and was transferred to ICU for further management. Unable to obtain ROS due to patient's sedated state. Allergies Allergy/AdvReac Type Severity Reaction Status Date / Time Penicillins Allergy Intermediate URTICARIA; Verified 04/21/21 09:12 PER PT, CAN TAKE AMOXICILLIN erythromycin base AdvReac Mild GI UPSET Verified 04/21/21 09:12 Home Medications Medication Instructions Recorded Confirmed Type allopurinol 100 mg tablet 200 mg PO HS tab 02/15/18 04/22/21 History (Zyloprim) omeprazole 20 mg capsule,delayed 20 mg PO QAM 02/15/18 04/22/21 History release spironolactone 25 mg tablet 25 mg PO QAM 02/15/18 04/22/21 History (Aldactone) magnesium oxide 400 mg PO QPM 02/03/20 04/22/21 History repaglinide 0.5 mg tablet 0.5 mg PO TIDM 02/03/20 04/22/21 History rosuvastatin 10 mg tablet (Crestor) 10 mg PO HS 02/03/20 04/22/21 History metoprolol tartrate 50 mg tablet 50 mg PO BID #0 tab 02/09/20 04/22/21 Rx bumetanide 1 mg tablet 1 mg PO QAM tab 06/20/20 04/22/21 History cholecalciferol (vitamin D3) 25 1,000 unit PO QAM cap 06/20/20 04/22/21 History mcg (1,000 unit) capsule metformin 500 mg tablet,extended 500 mg PO BID tab 06/20/20 04/22/21 History release 24 hr amiodarone 200 mg tablet 200 mg PO QAM 09/04/20 04/22/21 History amlodipine 5 mg tablet 5 mg PO BID 09/04/20 04/22/21 History docusate sodium 100 mg capsule 100 mg PO BID 09/04/20 04/22/21 History (Colace) multivitamin 1 tab PO QPM 03/10/21 04/22/21 History levothyroxine 112 mcg tablet 112 mcg PO QAM 04/14/21 04/22/21 History lisinopril 10 mg tablet 10 mg PO QPM 04/14/21 04/22/21 History phenazopyridine 200 mg tablet 200 mg PO Q8H PRN #10 tab 04/21/21 04/22/21 Rx (Pyridium) tamsulosin 0.4 mg capsule 0.4 mg PO HS #30 cap 04/21/21 04/22/21 Rx warfarin 5 mg tablet 5 mg PO QPM #0 tab 05/05/21 04/22/21 Rx Past Med/Surg History Medical History A-fib Paroxysmal, Follows with Dr. Foster On Coumadin Anemia CKD stage 3 secondary to diabetes CVA (cerebral vascular accident) Silent > Old infarct found on remote CT imaging (dating back to at least 2017) Diastolic dysfunction DM II (diabetes mellitus, type II), controlled NIDDM Dyslipidemia Gastric ulcer due to Helicobacter pylori hx Gout hx Hx of basal cell carcinoma Hx of osteomyelitis Spine (02/2020) treated at [facility] with [facility]p antibiotics and oxycodone for pain management Hypertension Hypothyroidism Lymphedema Morbid obesity MRSA (methicillin resistant Staphylococcus aureus) From wound in 2017 - Per Infection Control (04/21/21) pt does not need to be on precautions at this time Sleep apnea CPAP T2DM (type 2 diabetes mellitus) Surgical History H/O basal cell carcinoma excision H/O left knee surgery multiple knee arthroscopy on left H/O repair of rotator cuff right History of arthroplasty of left knee History of cardioversion RASHID with cardioversion (02/07/20): MAC sedation at [facility] History of carpal tunnel surgery History of cataract surgery History of cystoscopy History of esophagogastroduodenoscopy (EGD) History of umbilical hernia repair (09/11/20) Umbilical Hernia Repair with Mesh - Pete Zafar DO, FACS S/P debridement multiple abdominal debridements at [facility]. 08/2020 S/P panniculectomy S/P ureteral stent placement Status post Mohs surgery Family History Mother Diabetes Heart disease Father Hypertension Stroke Other No family history of adverse response to anesthesia No pertinent family history Social History Smoking Status: Never smoker Second Hand Exposure: No; Hx Alcohol Use: Yes Alcohol type: wine Hx Substance Use: No Preferred Language: Turkmen Communication Ability: Unable Hearing Ability: Normal Production Associate Required: No Beliefs That Will Affect Care: None marital status: / Current Living Situation: Alone Current Living Situation Comment: currently living with daughter current occupational status: retired How many Children do You have: 2 Feels Safe at Home: Yes Assistive Devices: Denture - Upper, Denture - Lower, Glasses and Walker Review of Systems Review of Systems: Unobtainable due to endotracheal tube Physical Exam Physical Exam: General Appearance: vitals as above, sedated in ICU with mechanical ventilation, obese Head: normocephalic, atraumatic Eyes: normal inspection, PERRL ENT: external ear and nose normal, ET tube in place Neck: normal visual inspection, trachea midline, no thyromegaly Respiratory: normal respiratory effort, lungs with diffuse rhonchi. No accessory muscle use Cardiovascular: regular rate, rhythm, no murmur, normal peripheral pulses, no BLE edema. Vessels: no JVD Chest: normal inspection of chest Abdomen/GI: normal bowel sounds, soft, nontender, no hepatosplenomegaly : Joseph collection with small amount of reddish urine with sediment Extremities/Musculoskeletal: no cyanosis or clubbing, extremities motor strength 5/5 Neurologic: PERRL, obtunded Skin: no rashes, normal color, warm/dry Results & Data Results & Data ([facility]) Vital Signs (Past 12 Hours) Vital Signs Temp Pulse Pulse Resp BP BP Pulse Ox 04/22/21 17:41 37.3 C 85 21 112/67 97 04/22/21 17:39 83 19 96 04/22/21 17:36 37.3 C 71 21 91 04/22/21 17:25 66 22 74/45 L 91 04/22/21 17:23 68 23 100/54 L 04/22/21 17:16 55 L 77/46 L 04/22/21 17:15 37.4 C 57 L 72/40 L 04/22/21 17:10 52 L 26 H 04/22/21 16:45 97/50 L 04/22/21 16:44 82 23 93 04/22/21 16:41 83 22 82/57 L 89 L 04/22/21 16:38 95 H 91/57 L 04/22/21 16:37 37.1 C 86 24 04/22/21 16:36 92/48 L 04/22/21 16:25 78 20 04/22/21 16:18 62/38 L 04/22/21 16:15 72/42 L 04/22/21 15:34 99 04/22/21 14:52 100 04/22/21 14:50 71 29 H 100 04/22/21 14:48 71 22 100 Laboratory Results Short CBC 04/22/21 04/22/21 Range/Units 15:16 19:52 WBC 17.30 H 30.79 H* D (4.8-10.8) K/uL Hgb 10.1 L 10.3 L (12.0-16.0) g/dL Hct 32.0 L 32.6 L (37-47) % Plt Count 121 L 158 (130-400) K/uL BMP 04/22/21 04/22/21 15:16 19:52 Sodium 136 136 Potassium 4.9 4.2 Chloride 108 H 107 Carbon Dioxide 18 L 16 L BUN 58 H 56 H Creatinine 2.83 H 2.69 H Glucose 160 H Calcium 8.1 L 8.4 L Cardiac Enzymes 04/22/21 Range/Units 15:16 Troponin I 0.026 (0-0.045) ng/ml Liver Function 04/22/21 Range/Units 15:16 Total Bilirubin 1.0 (0.2-1) mg/dl AST 147 H (15-37) U/L ALT 124 H (12-78) Alkaline Phosphatase 84 (45-117) U/L Albumin 2.6 L (3.4-5.0) gm/dl Urine 04/22/21 Range/Units 17:45 Urine Color [place] Urine Appearance Turbid A (Clear) Urine pH (4.5-7.5) Ur Specific [place] 1.020 (1.000-1.030) Urine Protein (Negative) Urine Glucose (UA) (Negative) Diagnostic Findings Abdomen/Pelvis CT 04/22/21 15:36 CT OF THE ABDOMEN AND PELVIS WITH CONTRAST CLINICAL HISTORY: sepsis, obtunded, ?infected renal stone COMPARISON STUDY: CT of the abdomen and pelvis March 10, 2021. TECHNIQUE: Following IV administration of 120 mL of Optiray, axial images of the abdomen and pelvis were obtained from the lung bases to the proximal femurs. Images were reviewed in the axial, sagittal, and coronal planes. IV contrast was administered without complication. Automated exposure control was utilized for the study. A dose lowering technique was utilized adhering to the principles of ALARA. FINDINGS: Multifocal consolidation and groundglass opacities are noted within the lower lungs. Findings are better depicted on the chest CT which will be reported separately. Cardiomegaly is noted. Bilateral anterior rib fractures are also better depicted on the chest CT. There is trace perihepatic ascites. Body wall edema is present. There is no biliary or pancreatic ductal dilatation. The spleen, adrenal glands and pancreas are unremarkable. There is no evidence for a bowel obstruction. The caliber and wall thickness of small and large bowel are normal. Sigmoid diverticulosis is noted without evidence for acute diverticulitis. There is no hydronephrosis. Left ureteral stent is in place. Proximal aspect of stent is within the inferior left collecting system. A Joseph balloon is present within the bladder. Bilateral renal calculi measure up to 5 mm. No ureteral calculi identified. Left collecting system is duplicated. Small amount of gas within the left collecting system is likely from recent procedure. Suspected left renal cysts are present. This exam is mildly compromised by motion artifact. No acute fracture or suspicious lesion is identified within visualized skeletal structures. Multilevel degenerative changes within the lumbar spine are present. Right femoral venous catheter is in place. IMPRESSION: 1. Left ureteral stent in place. Exam mildly compromised by motion artifact but no ureteral calculi or fragments identified. Bilateral nephrolithiasis. 2. Multifocal consolidation and groundglass opacities within the lungs which could reflect pneumonia or aspiration pneumonitis. Findings better depicted on the chest CT which will be reported separately. 3. Trace perihepatic ascites. Body wall edema. 4. No bowel obstruction. No bowel wall thickening. ACT 112: Negative or not required by law. Electronically signed by: Gui Berumen M.D. 04/22/2021 5:51 PM Chest CTA 04/22/21 15:36 CT ANGIOGRAPHY OF THE CHEST, PULMONARY EMBOLUS PROTOCOL CLINICAL HISTORY: Altered mental status. COMPARISON STUDY: Chest radiograph March 11, 2021 and chest radiograph pe rformed earlier today. TECHNIQUE: Following IV administration of Optiray, helical axial images of the chest were obtained utilizing the pulmonary embolus protocol. Maximal intensity projections and sagittal and coronal reformats were viewed on an independent 3D workstation. IV contrast was administered without complication. Automated exposure control was utilized for the study. A dose lowering technique was utilized adhering to the principles of ALARA. CT DOSE: 4011.81 mGy.cm FINDINGS: No pulmonary emboli are identified although the segmental and subsegmental pulmonary arteries are suboptimally assessed due to respiratory motion. There is no thoracic aortic dissection. Moderate cardiomegaly is noted. There is reflux of contrast into the IVC and hepatic veins. Endotracheal and nasogastric tubes are satisfactorily positioned. No pneumothorax or pleural effusion is noted. There are multiple acute bilateral anterior rib fractures. Extensive multifocal consolidation and groundglass opacities within the lungs are noted. The abdomen and pelvis will be reported separately. There are prominent mediastinal and bilateral hilar lymph nodes. IMPRESSION: 1. No pulmonary emboli identified although segmental and subsegmental pulmonary arteries suboptimally assessed due to respiratory motion. 2. Extensive multifocal consolidation and groundglass opacities within the lung s. The findings favor pneumonia or aspiration pneumonitis. Superimposed pulmonary edema would be difficult to exclude. 3. Moderate cardiomegaly. 4. Multiple acute nondisplaced anterior bilateral rib fractures. No pneumothorax. 5. Satisfactory positioning of the endotracheal and nasogastric tubes. ACT 112: Negative or not required by law. Electronically signed by: Gui Berumen M.D. 04/22/2021 5:[address] 04/22/21 15:36 CT OF THE HEAD WITHOUT CONTRAST CLINICAL HISTORY: obtunded. COMPARISON STUDY: Head CT July 19, 2017. MRI of the brain July 21, 2017. TECHNIQUE: Helical axial images of the head were obtained without IV contrast. Automated exposure control was utilized for the study. A dose lowering technique was utilized adhering to the principles of ALARA. FINDINGS: This exam is mildly compromised by motion artifact. White matter hypodensities are similar to prior exam and favor small vessel disease. Endotracheal and nasogastric tubes are partially imaged. No acute intracranial hemorrhage, midline shift or mass effect is present. The ventricular system is unremarkable. The basal cisterns are patent. No extra-axial collections are present. There are no findings to suggest acute dural sinus thrombosis or acute territorial infarct. No significant calvarial abnormalities are present. Visualized portions of the sinuses and mastoid air cells are clear. IMPRESSION: 1. No acute intracranial findings. No significant change in appearance of the brain. 3. Exam mildly compromised by motion artifact. ACT 112: Negative or not required by law. Electronically signed by: Gui Berumen M.D. 04/22/2021 5:19 PM Chest X-Ray 04/22/21 15:42 XR chest 1V portable CLINICAL HISTORY: SEPSIS- intubation COMPARISON STUDY: Chest radiograph March 11, 2021. FINDINGS: Tip of endotracheal tube is 1.8 cm above the tristan. Tip of nasogastric tube is within the body of the stomach. There is no pneumothorax or pleural effusion. Cardiomegaly is noted. Right hilar prominence is noted. Interstitial thickening is present. There are possible patchy bilateral airspace opacities. IMPRESSION: 1. Satisfactory positioning of the endotracheal and nasogastric tubes. 2. Interstitial thickening and possible patchy bilateral airspace opacities. The findings may reflect pulmonary edema or an infectious process. ACT 112: Negative or not required by law. Electronically signed by: Gui Berumen M.D. 04/22/2021 4:20 PM Code Status & VTE Plan VTE Prophylaxis Plan VTE Prophylaxis will be ordered: Yes Supervising Physician Co-Signing Physician Notes Patient was seen and examined for urology. Agreed for Lesly CORRIGAN, exam, assessment and plan. 70yo F with a PMH of paroxysmal A Fib on coumadin, HTN, H LD, history of CVA, DM II, EDYTA (CPAP at bedtime), hypothyroidism, anemia was brought into ED in obtunded state. She had outpatient cystoscopy and left ureter stent replacement done by urology Dr. Edwards. Yesterday she started to have worsening shortness of breath and was found to be minimally responsive in the ER she was Intubated for airway protection. She was hypotensive and was started on pressors. CODE BLUE was called due cardiac arrest with PEA, but ROSC was achieved with compressions and epinephrine. On admission, CT head showed no acute intracranial abnormality. CTA chest which was negative for PE but did show bilateral infiltrates consistent with aspiration pneumonitis/pneumonia. CT abdomen/pelvis which showed patent ureteral stent and was negative for acute process. Patient will be managed in the ICU. chrome worker consulted. we will continue IV fluid and and pressor. Continue IV antibiotic with meropenem and Vanco. We will continue monitor closely in the ICU. MD Isabelle
--- NOTE | 2021-04-22 17:53 | CT Scan Report ---
CT OF THE ABDOMEN AND PELVIS WITH CONTRAST CLINICAL HISTORY: sepsis, obtunded, ?infected renal stone COMPARISON STUDY: CT of the abdomen and pelvis March 10, 2021. TECHNIQUE: Following IV administration of 120 mL of Optiray, axial images of the abdomen and pelvis w ere obtained from the lung bases to the proximal femurs. Images were reviewed in the axial, sagittal, and coronal planes. IV contrast was administered without complication. Automated exposure control w as utilized for the study. A dose lowering technique was utilized adhering to the principles of ATMIKA Cummings. FINDINGS: Multifocal consolidation and groundglass opacities are noted within the lower lungs. Findin gs are better depicted on the chest CT which will be reported separately. Cardiomegaly is noted. Bila teral anterior rib fractures are also better depicted on the chest CT. There is trace perihepatic asc ites. Body wall edema is present. There is no biliary or pancreatic ductal dilatation. The spleen, ad renal glands and pancreas are unremarkable. There is no evidence for a bowel obstruction. The caliber and wall thickness of small and large bowel are normal. Sigmoid diverticulosis is noted without evid ence for acute diverticulitis. There is no hydronephrosis. Left ureteral stent is in place. Proximal aspect of stent is within the inferior left collecting system. A Joseph balloon is present within the bladder. Bilateral renal calculi measure up to 5 mm. No ureteral calculi identified. Left collecting system is duplicated. Small amount of gas within the left collecting system is likely from recent pro cedure. Suspected left renal cysts are present. This exam is mildly compromised by motion artifact. N o acute fracture or suspicious lesion is identified within visualized skeletal structures. Multilevel degenerative changes within the lumbar spine are present. Right femoral venous catheter is in place. IMPRESSION: 1. Left ureteral stent in place. Exam mildly compromised by motion artifact but no ureteral calculi o r fragments identified. Bilateral nephrolithiasis. 2. Multifocal consolidation and groundglass opacities within the lungs which could reflect pneumonia or aspiration pneumonitis. Findings better depicted on the chest CT which will be reported separately . 3. Trace perihepatic ascites. Body wall edema. 4. No bowel obstruction. No bowel wall thickening. ACT 112: Negative or not required by law. Electronically signed by: Gui Berumen M.D. 04/22/2021 5:51 PM
[2021-04-22] MEDS: VASOPRESSIN 20 UNITS in 0.9 % SODIUM CHLORIDE 100 ML IV SCH (17:55)
[2021-04-22 18:01] LABS: Appearance Urine Turbid (Clear); Color Urine Orange
[2021-04-22 18:13] LABS: Bacteria Urine 1+ (Negative); Epithelial Cell Urine 0-5 /lpf (0-5); WBC Urine >30 /hpf (0-5)
[2021-04-22] MEDS ORDERED: ICU PROTOCOL FOR HYPERGLYCEMIA PRN (18:35)
--- NOTE | 2021-04-22 19:44 | Procedure Note ---
Procedure Note Date of Service April 22, 2021 Note ARTERIAL LINE PROCEDURE NOTE: Procedure: Arterial Line Placement Attending: Dr. Cervantes Provider: LATRICE Rice Indication: Monitoring on Pressors Anesthesia: Lidocaine 1% Line placed emergently in the setting of septic shock requiring vasopressor support in mechanically ventilated patient. A time-out was completed verifying correct patient, procedure, site, positioning, and implant(s) or special equipment if applicable. Allens test was performed to ensure adequate perfusion. Patients left wrist was prepped and draped in the usual sterile fashion. Ultrasound guidance was used to aid needle placement. A 20g Arrow arterial line was introduced into the left radial artery. Catheter was threaded, and the needle was removed with appropriate blood return. Good waveform was observed. The patient tolerated the procedure well. Confirmation of placement with ultrasound. Blood Loss: Minimal Complications: None Procedural Ultrasound Guidance: Procedure Date: 04/22/2021 Indication: Arterial line insertion Attending: Dr. Cervantes Provider: LATRICE Rice Artery Identified: YES Line confirmed in Artery with ultrasound: Yes Complications: NONE Patient tolerated procedure: WELL Coding CPT Codes Tubes, Drains, and Vasc Access - Tubes, Drains, and Vasc Access: [id number] Place Catheter In Artery ([id number]) Tubes, Drains, and Vasc Access - Tubes, Drains, and Vasc Access: [id number] Ultrasound Guidance For Vascular ([id number]) [facility] [place] Procedure Codes (Charges) Tubes, Drains, and Vasc Access Procedure 1: Tubes, Drains, and Vasc Access: [id number] Place Catheter In Artery Procedure 2: Tubes, Drains, and Vasc Access: [id number] Ultrasound Guidance For Vascular
--- NOTE | 2021-04-22 19:44 | Critical Care Consultation ---
Date of Consultation April 22, 2021 Assessment & Plan (1) Septic shock: Reason Critically Ill: 70-year-old female with recent ureteral calculi and hydronephrosis requiring ureteral stent, presents to the ICU after being found unresponsive in severe septic shock, acute hypoxic respiratory failure, acute renal failure. Currently mechanically ventilated on multiple vasopressors Neuro - Acute encephalopathysuspect this is secondary to severe sepsis/UTI. CT head negative. BUN mildly elevated at 56, may be contributing as well. Continue with supportive care. May consider EEG if encephalopathy does not begin to clear. She did have a cardiac arrest but was unresponsive prior to this, and would be poor candidate for therapeutic hypothermia. Currently holding sedation as she remains obtunded, and will reassess need for sedation/analgesics while intubated. Cardiac - Cardiac arrest/shockpatient severely hypotensive on vasopressin and Levophed drips in the setting of sepsis. Echo from 02/19 with normal systolic function and no significant valvular abnormalities. CTA negative for PE. Patient does have elevated BNP and will hold on diuresis given profound hypotension requiring vasopressor support. Central line and A-line inserted. Hold antihypertensives. See ID treatment for sepsis below. She did have cardiac arrest following intubation and ROSC achieved with multiple rounds CPR and epinephrine. Troponin was negative and EKG without ST elevation or depression. She is currently in normal sinus rhythm and suspect arrest was likely due to complication of patient's underlying metabolic acidosis following intubation as she became bradycardic to asystole per report. Her random cortisol was 59 prior to hydrocortisone and no clear indication for continuing stress dose steroids at this time. Continuous monitoring on telemetry. We will try to wean epinephrine in favor of Levophed and continue vasopressin. Follow-up repeat echo in a.m. Respiratory - Acute hypoxic respiratory failurepatient appears to have history of OHS and requires CPAP at night. CTA chest negative for PE. She does have bilateral infiltrates that are consistent with pneumonia/aspiration and suspect this is the primary contributor to her profound hypoxia. She also has elevated BNP, but would hold on diuretics at this time as she is currently in acute renal failure and severely hypotensive. -Chest x-ray did show anterior nondisplaced rib fractures and this could prolong vent weaning -Continue with support with mechanical ventilation for now, trend ABGs and wean vent as tolerated -See ID treatment below -Nebs as needed -Continue pulse ox and end-tidal CO2 monitoring GI - N.p.o. RENAL/LYTES - Acute on chronic renal failurecreatinine 2.69 with prior baseline 1.11. Suspect this is likely ATN given patient's profound hypotension, however left hydronephrosis could be contributing but she is post left ureteral stent. -No severe electrolyte abnormalities at this time. Continue to trend BMPs and monitor urine output. May need nephrology consultation if renal function worsens. -Careful with IV fluid resuscitation as patient has diastolic dysfunction and is profoundly hypoxic at this time -Maintain maps greater than 65 -Avoid nephrotoxins renally adjust medications - Ureteral calculistatus post left ureteral nephroscopy with extraction of stone and exchange of left stent on 04/21. CT abdomen pelvis today shows patent left ureteral stent. Foleystrict I's and O's ENDO - DM type IIholding Metformin in the setting of SAJAN. Starting insulin drip due to hyperglycemia. ICU hyperglycemic protocol. Consult to pharmacy glycemic Hypothyroidcontinue Synthroid HEME - H&H stable, monitor routine CBCs and replete electrolytes as indicated ID - Sepsispatient with significantly elevated pro calcitonin and lactic acid. Leukocytosis with WBC 30,000. Currently afebrile Blood cultures, urine culture pending. Patient did grow pansensitive E. coli and Pseudomonas on urine culture on 04/14. Nasal MRSA pending Suspect this is primarily urinary source but cannot rule out pulmonary source given infiltrates on CT chest which is likely from aspiration. Continue meropenem, vancomycin for now LINES/IV ACCESS - Right femoral triple-lumen, left radial A-line, ET tube, OG tube DVT PROPHYLAXIS - SCDs, hold anticoagulation for now as patient is on Coumadin I have personally spent 65 minutes of critical care time in the direct management of this patient. This is a life/limb threatening event. This includes time spent evaluating patient, direct bedside care, chart review, placing orders, interpretation of diagnostic studies, discussion with consultants, patient, and family members, as well as other required patient management activities. This time is exclusive of all separately billable procedures, and teaching time and separate from and in addition to any other critical care service time. Thank you for allowing us to participate in the care of this patient. Please refer to my attending physician's documentation for any further recommendations. (2) Acute respiratory failure with hypoxia: (3) Acute renal failure: (4) Diabetes mellitus type 2 with complications: (5) Hypothyroid: (6) Chronic venous insufficiency: (7) Nephrolithiasis: (8) Hydronephrosis with renal and ureteral calculous obstruction: (9) Hydronephrosis, left: (10) Diastolic dysfunction: (11) A-fib: (12) Morbid obesity: (13) Sleep apnea: (14) Hypertension: (15) Encephalopathy acute: (16) Aspiration into airway: (17) Cardiac arrest: History of Present Illness Attending Physician: Hugo Walton MD History of Present Illness Patient is a 70-year-old female with past medical history significant for proximal A. fib (on Coumadin), HTN, HLD, history of CVA, EDYTA (CPAP at bedtime), DM type II, anemia, hypothyroid. She had a recent admission for urolith the [facility] with urosepsis at the beginning of March, and yesterday underwent cystoscope before left ureteral stent replacement. She was brought into the emergency department earlier this evening, obtunded and hypotensive. Pro-Nate, lactate, and WBC were elevated and she was being treated for septic shock and she has SAJAN. She was profoundly hypoxic and intubated in the ER and subsequently went into PEA arrest shortly following intubation were ROSC was achieved with compressions and epinephrine. She was placed on bicarb drip. She underwent CT abdomen pelvis which was negative for acute process and showed patent ureteral stent. She also underwent CT head which was negative for acute intracranial process and CTA chest which was negative for PE but did show bilateral infiltrates consistent with aspiration/pneumonia. She was placed on epinephrine and vasopressin. Random cortisol was drawn prior to stress dose steroids which was appropriate elevated. She is on broad-spectrum antibiotics and being treated for septic shock with urinary versus pulmonary source. She is now transferred to the ICU for further management at this time. Allergies Allergy/AdvReac Type Severity Reaction Status Date / Time Penicillins Allergy Intermediate URTICARIA; Verified 04/21/21 09:12 PER PT, CAN TAKE AMOXICILLIN erythromycin base AdvReac Mild GI UPSET Verified 04/21/21 09:12 Home Medications Medication Instructions Recorded Confirmed Type allopurinol 100 mg tablet 200 mg PO HS tab 02/15/18 04/22/21 History (Zyloprim) omeprazole 20 mg capsule,delayed 20 mg PO QAM 02/15/18 04/22/21 History release spironolactone 25 mg tablet 25 mg PO QAM 02/15/18 04/22/21 History (Aldactone) magnesium oxide 400 mg PO QPM 02/03/20 04/22/21 History repaglinide 0.5 mg tablet 0.5 mg PO TIDM 02/03/20 04/22/21 History rosuvastatin 10 mg tablet (Crestor) 10 mg PO HS 02/03/20 04/22/21 History metoprolol tartrate 50 mg tablet 50 mg PO BID #0 tab 02/09/20 04/22/21 Rx bumetanide 1 mg tablet 1 mg PO QAM tab 06/20/20 04/22/21 History cholecalciferol (vitamin D3) 25 1,000 unit PO QAM cap 06/20/20 04/22/21 History mcg (1,000 unit) capsule metformin 500 mg tablet,extended 500 mg PO BID tab 06/20/20 04/22/21 History release 24 hr amiodarone 200 mg tablet 200 mg PO QAM 09/04/20 04/22/21 History amlodipine 5 mg tablet 5 mg PO BID 09/04/20 04/22/21 History docusate sodium 100 mg capsule 100 mg PO BID 09/04/20 04/22/21 History (Colace) warfarin 5 mg tablet 7.5 mg PO QPM 09/04/20 04/22/21 History multivitamin 1 tab PO QPM 03/10/21 04/22/21 History ibuprofen 600 mg tablet 600 mg PO BID 04/14/21 04/22/21 History levothyroxine 112 mcg tablet 112 mcg PO QAM 04/14/21 04/22/21 History lisinopril 10 mg tablet 10 mg PO QPM 04/14/21 04/22/21 History tamsulosin 0.4 mg capsule (Flomax) 0.4 mg PO HS 04/14/21 04/22/21 History levofloxacin 500 mg tablet 500 mg PO DAILY 3 Days #3 tab 04/21/21 04/22/21 Rx phenazopyridine 200 mg tablet 200 mg PO Q8H PRN #10 tab 04/21/21 04/22/21 Rx (Pyridium) tamsulosin 0.4 mg capsule 0.4 mg PO HS #30 cap 04/21/21 04/22/21 Rx Patient History Medical History (Updated 04/22/21 @ 20:46 by LATRICE Velazquez) A-fib Paroxysmal, Follows with Dr. 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 antibiotics and oxycodone for pain management Hypertension Hypothyroidism Lymphedema Morbid obesity MRSA (methicillin resistant Staphylococcus aureus) From wound in 2017 - Per Infection Control (04/21/21) pt does not need to be on precautions at this time Sleep apnea CPAP T2DM (type 2 diabetes mellitus) Surgical History H/O basal cell carcinoma excision H/O left knee surgery multiple knee arthroscopy on left H/O repair of rotator cuff right History of arthroplasty of left knee History of cardioversion RASHID with cardioversion (02/07/20): MAC sedation at [facility] History of carpal tunnel surgery History of cataract surgery History of cystoscopy History of esophagogastroduodenoscopy (EGD) History of umbilical hernia repair (09/11/20) Umbilical Hernia Repair with Mesh - Pete Zafar DO, FACS S/P debridement multiple abdominal debridements at [facility]. 08/2020 S/P panniculectomy S/P ureteral stent placement Status post Mohs surgery Family History Mother Diabetes Heart disease Father Hypertension Stroke Other No family history of adverse response to anesthesia No pertinent family history Social History Smoking Status: Never smoker Second Hand Exposure: No; Do You Dip or Chew Tobacco: No; Tobacco Cessation Education Requested by Patient: No Hx Alcohol Use: Yes Alcohol type: wine Hx Substance Use: No Preferred Language: Omani Communication Ability: intubated Hearing Ability: Normal Clip And Hanger Attacher Required: No Beliefs That Will Affect Care: None marital status: / Current Living Situation: Alone Current Living Situation Comment: currently living with daughter current occupational status: retired Other Information That Helps Us Care for You: No Feels Safe at Home: Yes Safety Concerns: Feels Safe At This Time Assistive Devices: Cane, Denture - Upper, Denture - Lower, Glasses and Walker Review of Systems Review of Systems: Unobtainable due to cognitive status and Unobtainable due to endotracheal tube Physical Exam Constitutional: + obese and + mechanically ventilated Eyes: PERRL, conjunctivae normal, anicteric sclerae ENMT: external ear and nose normal, oropharynx normal Neck: trachea midline, no thyromegaly Respiratory: Symmetrical chest wall movement, mechanically ventilated. Rhonchi auscultated bilaterally in all lung card. Cardiovascular: Rate/Rhythm: regular rate and regular rhythm Heart Sounds: normal S1 and normal S2 Vessels: no JVD Extremities: no edema Gastrointestinal (Abdomen): normal bowel sounds, soft, nontender, no hepatosplenomegaly Musculoskeletal: Unable to assess as patient is unresponsive Skin: no rashes, warm and dry Neurologic: Obtunded. PERRLA. Nonlocalizes to noxious stimuli. Cough gag corneal intact. Psychiatric: Unable to assess Genitourinary: Catheter present Results & Data Results & Data ([facility]) Vital Signs (Past 12 Hours) Vital Signs Temp Pulse Pulse Resp BP BP BP 04/22/21 19:21 91 H 23 04/22/21 18:39 36.7 C 89 19 108/75 04/22/21 18:28 103 H 26 H 04/22/21 17:55 37.1 C 94 H 94 H 18 124/59 L 124/59 L 04/22/21 17:50 37.2 C 80 18 120/66 04/22/21 17:45 37.3 C 88 18 122/64 04/22/21 17:41 37.3 C 85 21 112/67 04/22/21 17:40 37.3 C 85 18 112/67 04/22/21 17:39 83 19 04/22/21 17:36 37.3 C 71 21 04/22/21 17:25 37.4 C 68 22 74/45 L 04/22/21 17:23 68 23 100/54 L 04/22/21 17:22 37.4 C 65 23 100/54 L 04/22/21 17:16 37.4 C 59 L 23 77/46 L 04/22/21 17:15 37.4 C 57 L 72/40 L 04/22/21 17:10 52 L 26 H 04/22/21 16:45 37.3 C 85 22 97/50 L 04/22/21 16:44 82 23 04/22/21 16:41 83 22 82/57 L 04/22/21 16:38 37.1 C 87 30 H 91/57 L 04/22/21 16:37 37.1 C 86 24 04/22/21 16:36 92/48 L 04/22/21 16:25 78 20 04/22/21 16:18 62/38 L 04/22/21 16:15 72/42 L 04/22/21 16:01 97 H 17 165/81 H 04/22/21 15:52 127 H 18 140/39 L 04/22/21 15:34 04/22/21 15:22 85/42 L 04/22/21 14:52 04/22/21 14:50 71 29 H 04/22/21 14:48 71 22 Pulse Ox 04/22/21 19:21 98 04/22/21 18:39 98 04/22/21 18:28 97 04/22/21 17:55 99 04/22/21 17:50 99 04/22/21 17:45 98 04/22/21 17:41 97 04/22/21 17:40 87 L 04/22/21 17:39 96 04/22/21 17:36 91 04/22/21 17:25 86 L 04/22/21 17:23 04/22/21 17:22 67 L 04/22/21 17:16 59 L 04/22/21 17:15 04/22/21 17:10 04/22/21 16:45 92 04/22/21 16:44 93 04/22/21 16:41 89 L 04/22/21 16:38 86 L 04/22/21 16:37 04/22/21 16:36 04/22/21 16:25 04/22/21 16:18 04/22/21 16:15 04/22/21 16:01 98 04/22/21 15:52 04/22/21 15:34 99 04/22/21 15:22 04/22/21 14:52 100 04/22/21 14:50 100 04/22/21 14:48 100 Coding Level of Care Code Critical Care 1st 30-74 mins Diagnoses Septic shock A41.9; R65.21 Acute respiratory failure with hypoxia J96.01 Acute renal failure N17.9 Diabetes mellitus type 2 with complications E11.8 Hypothyroid E03.9 Chronic venous insufficiency I87.2 Nephrolithiasis N20.0 Hydronephrosis with renal and ureteral calculous obstruction N13.2 Hydronephrosis, left N13.30 Diastolic dysfunction I51.89 A-fib I48.91 Morbid obesity E66.01 Sleep apnea G47.30 Hypertension I10 Encephalopathy acute G93.40 Aspiration into airway T17.908A Cardiac arrest I46.9
[2021-04-22 20:17] LABS: Hematocrit (blood only) 32.6 % (37-47); Hemoglobin 10.3 g/dL (12.0-16.0); Mean Corpuscular Hemoglobin 28.6 pg (25-34); Mean Corpuscular Hgb Conc 31.6 g/dL (32-36); Mean Corpuscular Volume 90.6 fL (80-100); Mean Platelet Volume 11.3 fL (7.4-10.4); Nucleated RBC # (auto) 0.04 K/uL (0-0); Nucleated RBC % (auto) 0.1 %; Platelet Count 158 K/uL (130-400); RDW Coefficient of Variation 16.2 % (11.5-14.5); RDW Standard Deviation 54.4 fL (36.4-46.3); White Blood Count 30.79 K/uL (4.8-10.8)
[2021-04-22 20:27] LABS: Calcium 8.4 mg/dl (8.5-10.1); Est GFR (Non-African American) 17.2 ml/min; Potassium 4.2 mmol/L (3.5-5.1)
[2021-04-22 20:37] LABS: Beta-Hydroxybutyrate 4.6 mg/dl (0.2-2.81)
[2021-04-22] MEDS ORDERED: INSULIN PROTOCOL GOAL RANGE ONE (20:52)
[2021-04-22] MEDS ORDERED: PHARMACY GLYCEMIC MGMT CONSULT PRN (20:52)
[2021-04-22] MEDS: fentaNYL citrate 2,500 MCG/250 ML BAG IV SCH (20:57)
[2021-04-22] MEDS ORDERED: INSULIN ASPART PER UNIT SC SCH (21:00)
[2021-04-22] MEDS ORDERED: ALBUT/IPRATROP 3MG/0.5MG NEB 3 ML VIAL NEB PRN (21:19)
[2021-04-22] MEDS ORDERED: INSULIN REGULAR 250 UNITS in SODIUM CHLORIDE 0.9% 247.5 ML IV SCH (21:40)
[2021-04-22] MEDS ORDERED: ALBUT/IPRATROP 3MG/0.5MG NEB 3 ML VIAL ONE (21:41)
[2021-04-22] MEDS ORDERED: NovoLIN-R BOLUS FROM BAG IV ONE (21:45)
[2021-04-22 21:50] LABS: iSTAT Arterial Blood Gas HCO3 16 meg/L (19-24); iSTAT Arterial Blood Gas pCO2 41 mmHg (35-46); iSTAT Arterial Blood Gas pH 7.19 (7.35-7.45); iSTAT Arterial Blood Gas pO2 89 mmHg (80-95); iSTAT Carbon Dioxide 17 mmol/L (24-31); iSTAT FiO2 80 %; iSTAT Site Art Line
[2021-04-22] MEDS ORDERED: PROPOFOL BOLUS FROM BAG IV PRN (23:03)
[2021-04-22] MEDS: propofoL 1,000 MG/100 ML VIAL IV SCH (23:23)
[2021-04-22] MEDS: SODIUM BICARBONATE 8.4% 150 MEQ in WATER, STERILE 1,000 ML IV SCH (23:52)
[2021-04-23] MEDS: VASOPRESSIN 20 UNITS in 0.9 % SODIUM CHLORIDE 100 ML IV SCH ×3 (00:20→18:05)
[2021-04-23] MEDS: [UNRECOGNIZED DRUG - MIXTURE] IV SCH ×2 (00:22→08:23)
[2021-04-23] MEDS ORDERED: ACETAMINOPHEN 1000 MG/100 ML IV IV ONE (02:24)
[2021-04-23] MEDS: ACETAMINOPHEN 1,000 MG/100 ML VIAL IV PRN ×2 (02:28→11:49)
[2021-04-23] MEDS: NOREPINEPHRINE/D5W 8 MG/508 ML BAG IV SCH ×7 (02:29→12:53)
[2021-04-23] MEDS ORDERED: MEROPENEM 500 MG in SYRINGE 0 ML IV SCH (04:00)
[2021-04-23] MEDS: propofoL 1,000 MG/100 ML VIAL IV SCH ×3 (05:42→18:06)
[2021-04-23 05:58] LABS: Hematocrit (blood only) 33.1 % (37-47); Hemoglobin 10.7 g/dL (12.0-16.0); Mean Corpuscular Hemoglobin 28.3 pg (25-34); Mean Corpuscular Hgb Conc 32.3 g/dL (32-36); Mean Corpuscular Volume 87.6 fL (80-100); Mean Platelet Volume 11.7 fL (7.4-10.4); Platelet Count 163 K/uL (130-400); RDW Coefficient of Variation 15.9 % (11.5-14.5); Red Blood Count 3.78 M/uL (4.2-5.4); White Blood Count 27.97 K/uL (4.8-10.8)
[2021-04-23 06:08] LABS: INR 1.4 (0.9-1.1); Prothrombin Time 13.8 Seconds (9.0-12.0)
[2021-04-23 06:32] LABS: Albumin Level 2.3 gm/dl (3.4-5.0); BUN Creatinine Ratio 24.3 (10-20); Creatinine Clr Calc Pharmacy 25.4 ml/min; Est GFR (African American) 21.4 ml/min; Est GFR (Non-African American) 18.5 ml/min; Magnesium 1.6 mg/dl (1.8-2.4); Potassium 4.1 mmol/L (3.5-5.1)
[2021-04-23 06:35] LABS: Albumin Globulin Ratio 0.7 (0.9-2); Bilirubin,Total 1.1 mg/dl (0.2-1); Globulin 3.5 gm/dl (2.5-4.0); Total Protein 5.8 gm/dl (6.4-8.2)
[2021-04-23] MEDS ORDERED: Heparin IV Adult Wt-Based Standard WITH Bolus Protocol IV STA (08:03)
[2021-04-23] MEDS ORDERED: DEXTROSE 50% 50 ML SYRINGE IV ONE ×2 (08:11→09:20)
[2021-04-23] MEDS: DEXTROSE 50% 50 ML SYRINGE IV PRN ×3 (08:15→15:58)
[2021-04-23] MEDS: SODIUM BICARBONATE 8.4% 150 MEQ in WATER, STERILE 1,000 ML IV SCH ×3 (08:23→23:45)
[2021-04-23] MEDS ORDERED: HEPARIN SOD (PORCINE) 1000 UNIT/ML IV ONE (08:30)
[2021-04-23] MEDS ORDERED: FAMOTIDINE 20 MG in SYRINGE 3 ML IV SCH (09:00)
[2021-04-23 09:04] LABS: Acetaminophen 9 ug/ml (10-30); Salicylate < 1.7 mg/dl (2.8-20)
[2021-04-23] MEDS: MAGNESIUM SULFATE / D5W 1 GM/100 ML BAG IV SCH ×3 (09:14→11:47)
[2021-04-23] MEDS: HEPARIN SODIUM/DEXTROSE 25,000 UNITS/500 ML BAG IV SCH (09:15)
[2021-04-23] MEDS ORDERED: GLUCOSE 40% GEL 15 GM TUBE PO PRN (09:20)
[2021-04-23] MEDS ORDERED: CARBOHYDRATES FOR HYPOGLYCEMIA PO PRN (09:20)
[2021-04-23] MEDS ORDERED: GLUCAGON FOR INJ 1 MG VIAL SQ PRN (09:20)
[2021-04-23] MEDS ORDERED: GLUCOSE 10 TABS/TUBE PO PRN (09:20)
[2021-04-23 09:53] LABS: iSTAT Arterial Blood Gas HCO3 16 meg/L (19-24); iSTAT Arterial Blood Gas pCO2 46 mmHg (35-46); iSTAT Arterial Blood Gas pO2 89 mmHg (80-95); iSTAT Carbon Dioxide 18 mmol/L (24-31); iSTAT Hematocrit 26 % (37-47); iSTAT Hemoglobin 8.8 g/dl (12.0-16.0); iSTAT Potassium 4.5 mmol/L (3.3-5.0); iSTAT Sample Type Arterial; iSTAT Sodium 134 mmol/L (135-144)
[2021-04-23 09:56] LABS: iSTAT Arterial Blood Gas pH 7.15 (7.35-7.45)
--- NOTE | 2021-04-23 10:12 | XRay Report ---
XR chest 1V portable CLINICAL HISTORY: Evaluate endotracheal tube location. Follow-up bilateral airspace opacities. COMPARISON STUDY: 04/22/2021 TECHNIQUE: 1 view of the chest FINDINGS: Single frontal view of the chest demonstrates the heart to again be enlarged. The tip of the endotrac heal tube is again approximately 1.8 cm above the rtistan. There has been interval development of left lower lobe atelectasis/collapse. There is also evidence for left pleural effusion. Bilateral interst itial and alveolar opacities are again seen which appears slightly worse. There is again mild central vascular congestion. There is no acute osseous pathology. IMPRESSION: Worsening interstitial and alveolar opacities bilaterally. Interval development of left l ower lobe atelectasis/collapse and small left pleural effusion. Tip of endotracheal tube is again chelsey roximately 1.8 cm above the tristan. ACT 112: Negative or not required by law. Electronically signed by: Jax Lama M.D. 04/23/2021 10:10 AM
[2021-04-23 10:33] LABS: iSTAT Arterial Blood Gas HCO3 21 meg/L (19-24); iSTAT Arterial Blood Gas pCO2 41 mmHg (35-46); iSTAT Arterial Blood Gas pH 7.33 (7.35-7.45); iSTAT Arterial Blood Gas pO2 57 mmHg (80-95); iSTAT Carbon Dioxide 23 mmol/L (24-31); iSTAT FiO2 70 %; iSTAT Site Art Line
[2021-04-23] MEDS ORDERED: VANCOMYCIN HCL 2,500 MG in SODIUM CHLORIDE 0.9% 500 ML IV ONE (11:00)
[2021-04-23] MEDS ORDERED: VANCOMYCIN CONSULT ACTIVE PRN (11:01)
[2021-04-23] MEDS ORDERED: STAT IV Infusion **Titration per Protocol STA (12:27)
[2021-04-23] MEDS ORDERED: INSULIN PROTOCOL GOAL RANGE ONE (12:27)
--- NOTE | 2021-04-23 12:40 | Pharmacy Report ---
Pharmacy Glycemic Short Note 2 - Date of Service April 23, 2021 - Glycemic Short BSG Results (Last 24 hours): 04/22/21 04/22/21 04/22/21 14:57 15:16 19:52 Glucose 160 H POC Glucose 303 H* POC Glucose (other) Fasting Glucose 301 H* 04/22/21 04/22/21 04/23/21 21:15 23:15 00:07 Glucose POC Glucose POC Glucose (other) 357 H* 408 H* 377 H* Fasting Glucose 04/23/21 04/23/21 04/23/21 01:04 02:20 03:07 Glucose POC Glucose POC Glucose (other) 354 H* 312 H 286 H Fasting Glucose 04/23/21 04/23/21 04/23/21 04:25 05:23 05:31 Glucose 177 H POC Glucose POC Glucose (other) 234 H 184 H Fasting Glucose 04/23/21 04/23/21 04/23/21 06:34 07:33 08:02 Glucose POC Glucose POC Glucose (other) 137 H 107 H 94 Fasting Glucose 04/23/21 04/23/21 04/23/21 08:54 09:47 11:12 Glucose POC Glucose POC Glucose (other) 145 H 150 H 133 H Fasting Glucose OUTPATIENT ANTIDIABETIC REGIMEN: * metformin 500mg BID, repaglinide 0.5mg TIDM * HbA1C: pending ASSESSMENT: * Pharmacy consulted to assist with glycemic management in this [id number] who presents with septic shock s/p 2 episodes of PEA cardiac arrest following intubation yesterday afternoon. History of DM2 on oral agents at home. Patient is intubated and sedated and requiring vasopressor support. NPO, and hemodynamically unstable. Plan for regular insulin infusion given numerous stressors and variable clinical status. Insulin drip to be continued per insulin infusion adjustment calculator, as patient requiring high amount of pressor support and unpredictable SQ absorption. PLAN FOR INPATIENT GLYCEMIC CONTROL: * Hold outpatient oral diabetes medications * Basal insulin * Regular insulin infusion * Bolus insulin * NovoLog per scale Q6hrs while NPO * Goal Range: Low 140 mg/dL - High 180 mg/dL * Nutritional / Prandial insulin per insulin infusion calculator PLAN FOR DISCHARGE: * TBD
--- NOTE | 2021-04-23 12:48 | Pharmacy Report ---
Pharmacy Vanc AUC Short Note - Date of Service April 23, 2021 - Assessment & Plan Assessment 70 year old F receiving IV vancomycin and meropenem for treatment of septic shock. Blood and urine cultures pending. MRSA nasal (-). Patient intubated, sedated, and requiring significant vasopressor support. SAJAN - SCr 2.69-->2.54mg/dL. Vancomycin X 1 added today empirically given severity of illness. Day # 1 of antimicrobial therapy. Plan Vancomycin * AUC/LAURIE is the preferred PK/PD target for vancomycin, however due to SAJAN and clinical status, will dose by levels * Vancomycin 2500mg IV X 1 (~20mg/kg) * Random level ordered for: 12 AM. Plan to follow up with team re: plan for continued therapy tomorrow. Pharmacy will continue to follow and will adjust dose/frequency as necessary. Thank you.
--- NOTE | 2021-04-23 12:48 | Critical Care Progress Note ---
Date of Service April 23, 2021 Assessment & Plan (1) Multifocal pneumonia: (2) PEA (Pulseless electrical activity): (3) Acute kidney injury superimposed on chronic kidney disease: (4) Cardiac arrest: (5) Aspiration into airway: (6) Acute respiratory failure with hypoxia: (7) Septic shock: (8) Diastolic dysfunction: Plan: Reason Critically Ill: 70-year-old female with recent ureteral calculi and hydronephrosis requiring ureteral stent, presents to the ICU after being found unresponsive in severe septic shock, acute hypoxic respiratory failure, acute r enal failure. Currently mechanically ventilated on multiple vasopressors Neuro - Acute encephalopathy suspect this is secondary to severe sepsis/UTI. CT head negative. Continue with supportive care. May consider EEG if encephalopathy does not begin to clear. Cardiac - Cardiac arrest/shock Cardiac arrest status post intubation, ROSC achieved with multiple rounds of CPR and epi CT negative for PE EKG without ST elevation or depression. Troponin negative Continue with vasopressor support to keep MAP greater than 65 Random cortisol was 53, no need for continuous hydrocortisone 2D echo 04/23/2021: EF 35 and 40% with grade 2 diastolic dysfunction, right- sided pressure 48 mmHg Respiratory - --VDRF with acute hypoxic respiratory failure CTA chest negative for PE. Bilateral infiltrates that are consistent with pneumonia/aspiration and suspect this is the primary contributor to her profound hypoxia. BNP greater than 35,000 COVID-19 PCR negative Influenza A/B negative RSV negative Procalcitonin elevated -Continue with support with mechanical ventilation for now, trend ABGs and wean vent as tolerated -See ID treatment below --History of EDYTA GI - --Transaminitis With elevated INR Likely shock liver from hypotension Continue to monitor RENAL/LYTES - Acute on chronic renal failure creatinine 2.69 with prior baseline 1.11. Likely from hypotension Monitor BUN/creatinine Avoid nephrotoxic medications Strict ins and outs --High anion gap metabolic acidosis Likely secondary to elevated BUN along with elevated beta hydroxybutyrate acid Salicylates as well as acetaminophen level negative - Ureteral calculi status post left ureteral nephroscopy with extraction of stone and exchange of left stent on 04/21. CT abdomen pelvis 04/22/21 shows patent left ureteral stent. Foleystrict I's and O's ENDO - DM type II Continue with ICU hypoglycemia protocol Hypothyroidcontinue Synthroid HEME - H&H stable,, continue to monitor ID - Sepsis Source likely UTI Blood cultures, urine culture pending. Patient did grow pansensitive E. coli and Pseudomonas on urine culture on 04/14. Nasal MRSA negative --> got 1 dose of vancomycin 04/23/2021 Patient does have multi lobar infiltrates could be aspiration pneumonia. Continue with meropenem --Prophylaxis VTE: Heparin drip GI: Protonix Lines: Right femoral, left radial, positive Joseph Diet: N.p.o. Plan: In/out: +5 L, urine output 620 AB.26/44/74 on 70%, PEEP of 6 Wean vasopressors to MAP greater than 65 Chest x-ray from today shows atelectasis collapse of the left lower lobe. Retract the ET tube by 1 cm. There is no improvement in patient's oxygenation will need bronc Hypomagnesemia being replaced. I have personally spent 38 minutes of critical care time in the direct management of this patient. This is a life/limb threatening event. This includes time spent evaluating patient, direct bedside care, chart review, placing orders, interpretation of diagnostic studies, discussion with consultants, patient, and family members, as well as other required patient management activities. This time is exclusive of all separately billable procedures, and teaching time and separate from and in addition to any other critical care service time. Admission and Anticipated Discharge Date Admission Date: April 22, 2021 Subjective Patient seen and examined at bedside. No acute distress She was on 0.35 of Levophed at the time of examination with the maps in the 70s. She is on 20 of propofol and 75 fentanyl Patient was breathing with the vent. Has been spiking fever. Review of Systems Review of Systems: Unobtainable due to endotracheal tube Physical Exam Physical Exam: Constitutional: No acute distress HEENT: Sluggish pupillary response Respiratory system: Decreased entry bilaterally, no wheeze, rhonchi, positive crackles bilateral lower lobes CVS: S1-S2 positive, no murmurs or gallops Abdomen: Soft, nontender, nondistended, positive bowel sounds x4, obese Extremities: +2 pulses bilaterally radialis/ dorsalis pedis, no cyanosis, +1 edema bilateral lower extremity Neuro: Sedated, breathing with vent, positive gag, positive corneal Psych: Unable to assess G/U: Positive Joseph Results & Data Results & Data ([facility]) Vital Signs (Past 12 Hours) Vital Signs Temp Pulse Resp Pulse Ox 04/23/21 11:17 38.5 C H 04/23/21 11:00 38.5 C H 73 26 H 91 04/23/21 10:00 38.4 C H 76 23 91 04/23/21 09:00 38.5 C H 73 26 H 90 04/23/21 08:00 38.6 C H 75 24 91 04/23/21 07:30 76 24 95 04/23/21 07:00 38.6 C H 75 24 92 04/23/21 06:10 38.7 C H 79 28 H 92 04/23/21 06:00 38.8 C H 76 21 91 04/23/21 05:50 38.7 C H 78 26 H 93 04/23/21 05:40 38.8 C H 78 24 88 L 04/23/21 05:30 38.8 C H 78 22 91 04/23/21 05:20 38.8 C H 76 24 91 04/23/21 05:10 38.8 C H 78 24 91 04/23/21 05:00 38.8 C H 78 21 89 L 04/23/21 04:50 38.8 C H 79 26 H 91 04/23/21 04:40 38.8 C H 81 24 93 04/23/21 04:30 38.8 C H 80 29 H 92 04/23/21 04:20 38.8 C H 79 29 H 91 04/23/21 04:10 38.7 C H 80 27 H 93 04/23/21 04:00 38.7 C H 80 27 H 93 04/23/21 03:50 38.6 C H 78 11 L 93 04/23/21 03:44 79 28 H 94 04/23/21 03:40 38.6 C H 79 12 92 04/23/21 03:30 38.6 C H 79 5 L 93 04/23/21 03:20 38.6 C H 79 3 L 92 04/23/21 03:10 38.5 C H 78 0 L 92 04/23/21 03:00 38.5 C H 77 21 90 04/23/21 02:50 38.5 C H 79 17 91 04/23/21 02:40 38.4 C H 78 23 94 04/23/21 02:30 38.4 C H 77 20 95 04/23/21 02:20 38.3 C H 78 20 94 04/23/21 02:10 38.3 C H 78 14 94 04/23/21 02:00 38.2 C H 77 20 93 04/23/21 01:50 38.2 C H 79 19 95 04/23/21 01:40 38.1 C H 78 6 L 94 04/23/21 01:30 38.1 C H 77 11 L 95 04/23/21 01:20 38.0 C H 78 24 94 04/23/21 01:10 38.0 C H 78 10 L 93 04/23/21 01:00 37.9 C H 80 11 L 93 04/23/21 00:50 37.9 C H 80 24 93 04/23/21 00:40 37.8 C H 80 24 93 04/23/21 05:23 04/23/21 05:23 Coding Level of Care Code Critical Care 1st 30-74 mins Diagnoses Multifocal pneumonia J18.9 PEA (Pulseless electrical activity) I46.9 Acute kidney injury superimposed on chronic kidney disease N17.9; N18.9 Cardiac arrest I46.9 Aspiration into airway T17.908A Acute respiratory failure with hypoxia J96.01 Septic shock A41.9; R65.21 Diastolic dysfunction I51.89 Time Spent (min) 38
[2021-04-23] MEDS: Double Conc 32mcg/mL; 16mg in 500mL IV SCH ×3 (12:51→21:51)
[2021-04-23] MEDS: INSULIN ASPART PER UNIT SC SCH ×2 (13:13→17:47)
[2021-04-23] MEDS: MEROPENEM 500 MG in SYRINGE 0 ML IV SCH ×2 (13:16→20:41)
[2021-04-23 13:25] LABS: iSTAT Arterial Blood Gas pH 7.26 (7.35-7.45)
[2021-04-23 13:26] LABS: iSTAT Art Bld Gas pCO2 Correct 47 mmHg (35-46); iSTAT Art Bld Gas pH Corrected 7.241 (7.35-7.45); iSTAT Arterial Blood Gas HCO3 20 meg/L (19-24); iSTAT Arterial Blood Gas pCO2 44 mmHg (35-46); iSTAT Arterial Blood Gas pO2 74 mmHg (80-95); iSTAT Arterial Blood Gas pO2 C 83; iSTAT Carbon Dioxide 21 mmol/L (24-31)
[2021-04-23 13:27] LABS: Patient Temperature 38.6; iSTAT Allen Test Not Performed; iSTAT FiO2 70 %; iSTAT Sample Type Arterial; iSTAT Site Art Line
[2021-04-23 13:28] LABS: iSTAT SpO2 94
[2021-04-23 15:48] LABS: Partial Thromboplastin Ratio 3.6
[2021-04-23 15:56] LABS: Partial Thromboplastin Time 95.7 Seconds (21.0-31.0)
[2021-04-23] MEDS: ICU ELECTROLYTE REPLACEMENT PROTOCOL SCH (17:47)
[2021-04-23] MEDS ORDERED: ICU ELECTROLYTE REPLACEMENT PROTOCOL SCH (18:00)
[2021-04-23 23:13] LABS: Partial Thromboplastin Ratio 2.9
[2021-04-23 23:43] LABS: Partial Thromboplastin Time 75.4 Seconds (21.0-31.0)
[2021-04-24] MEDS: INSULIN ASPART PER UNIT SC SCH ×4 (00:26→20:22)
[2021-04-24] MEDS: propofoL 1,000 MG/100 ML VIAL IV SCH ×3 (01:10→16:43)
[2021-04-24] MEDS: VASOPRESSIN 20 UNITS in 0.9 % SODIUM CHLORIDE 100 ML IV SCH ×3 (02:38→18:33)
[2021-04-24] MEDS: MEROPENEM 500 MG in SYRINGE 0 ML IV SCH ×3 (04:42→20:18)
[2021-04-24 05:24] LABS: iSTAT Art Bld Gas pCO2 Correct 35 mmHg (35-46); iSTAT Art Bld Gas pH Corrected 7.514 (7.35-7.45); iSTAT Arterial Blood Gas HCO3 28 meg/L (19-24); iSTAT Arterial Blood Gas pCO2 36 mmHg (35-46); iSTAT Arterial Blood Gas pO2 73 mmHg (80-95); iSTAT Arterial Blood Gas pO2 C 70; iSTAT Carbon Dioxide 29 mmol/L (24-31); iSTAT FiO2 60 %; iSTAT Hematocrit 30 % (37-47); iSTAT Hemoglobin 10.2 g/dl (12.0-16.0); iSTAT Potassium 2.8 mmol/L (3.3-5.0); iSTAT Site Art Line; iSTAT Sodium 129 mmol/L (135-144)
[2021-04-24] MEDS: fentaNYL citrate 2,500 MCG/250 ML BAG IV SCH (05:31)
[2021-04-24 06:24] LABS: Partial Thromboplastin Ratio 2.1
[2021-04-24 06:37] LABS: Hematocrit (blood only) 30.4 % (37-47); Hemoglobin 10.4 g/dL (12.0-16.0); Mean Corpuscular Hemoglobin 28.4 pg (25-34); Mean Corpuscular Hgb Conc 34.2 g/dL (32-36); Mean Corpuscular Volume 83.1 fL (80-100); Platelet Count 110 K/uL (130-400); RDW Coefficient of Variation 15.5 % (11.5-14.5); RDW Standard Deviation 47.3 fL (36.4-46.3); Red Blood Count 3.66 M/uL (4.2-5.4); White Blood Count 23.28 K/uL (4.8-10.8)
[2021-04-24 06:38] LABS: Basophils # (auto) 0.03 K/uL (0-0.2); Basophils % (auto) 0.1 %; Dohle Bodies 1+; Echinocytes 1+; Eosinophils # (auto) 0.13 K/uL (0-0.5); Eosinophils % (auto) 0.6 %; Immature Granulocytes # (auto) 0.22 K/uL (0.00-0.02); Immature Granulocytes % (auto) 0.9 %; Lymphocytes # (auto) 1.37 K/uL (1.2-3.4); Lymphocytes % (auto) 5.9 %; Monocytes # (auto) 0.76 K/uL (0.11-0.59); Monocytes % (auto) 3.3 %; Neutrophils # (auto) 20.77 K/uL (1.4-6.5); Neutrophils % (auto) 89.2 %; Platelet Estimate Decreased (Normal); Toxic Vacuolation 1+
[2021-04-24 06:39] LABS: Calcium 7.3 mg/dl (8.5-10.1); Creatinine Clr Calc Pharmacy 36.2 ml/min; Est GFR (African American) 33.1 ml/min; Est GFR (Non-African American) 28.6 ml/min; Partial Thromboplastin Time 55.7 Seconds (21.0-31.0); Phosphorus 2.9 mg/dl (2.5-4.9); Potassium 2.8 mmol/L (3.5-5.1)
--- NOTE | 2021-04-24 06:42 | Electrocardiogram Report ---
Test Reason : Blood Pressure : / mmHG Vent. Rate : 072 BPM Atrial Rate : 072 BPM P-R Int : 184 ms QRS Dur : 088 ms QT Int : 422 ms P-R-T Axes : 013 046 013 degrees QTc Int : 462 ms Normal sinus rhythm Low voltage QRS Cannot rule out Anterior infarct (cited on or before 22-APR-2021) Abnormal ECG When compared with ECG of 10-MAR-2021 20:11, Questionable change in initial forces of Lateral leads Confirmed by Ata Ochoa ([id number] on 04/24/2021 6:41:37 AM Referred By: REFERRED SELF Confirmed By:Ata Ochoa
[2021-04-24] MEDS: ICU ELECTROLYTE REPLACEMENT PROTOCOL SCH ×2 (06:44→18:30)
--- NOTE | 2021-04-24 06:45 | Electrocardiogram Report ---
Test Reason : Blood Pressure : / mmHG Vent. Rate : 097 BPM Atrial Rate : 097 BPM P-R Int : 194 ms QRS Dur : 102 ms QT Int : 348 ms P-R-T Axes : 052 -72 064 degrees QTc Int : 441 ms Normal sinus rhythm Left axis deviation Poor R wave progression, consider anterior LA vs. lead placement vs. LVH Possible Inferior infarct Abnormal ECG When compared with ECG of 22-APR-2021 14:45, QRS axis Shifted left Confirmed by Ata Ochoa ([id number]) on 04/24/2021 6:45:05 AM Referred By: REFERRED SELF Confirmed By:Ata Ochoa
[2021-04-24] MEDS ORDERED: MAGNESIUM SULFATE / D5W 1 GM/100 ML BAG IV ONE ×2 (07:00→08:45)
[2021-04-24] MEDS: POTASSIUM CHLORIDE / WTR 20 MEQ/100 ML PLCT IV SCH ×4 (07:17→14:17)
[2021-04-24] MEDS: HEPARIN SODIUM/DEXTROSE 25,000 UNITS/500 ML BAG IV SCH ×2 (07:17→07:57)
[2021-04-24 07:47] LABS: Estimated Average Glucose 140 mg/dl; Hemoglobin A1C 6.5 % (4.5-5.6)
--- NOTE | 2021-04-24 08:06 | XRay Report ---
XR chest 1V portable CLINICAL HISTORY: Respiratory failure. COMPARISON STUDY: Chest CT April 22, 2021. Chest radiograph April 23, 2021. FINDINGS: Tip of endotracheal tube is 2.7 cm above the tristan. Tip of nasogastric tube is below the l ower aspect of this image but at least within the body of the stomach. There is no pneumothorax. Card iomegaly is unchanged. There is no definite pleural effusion. Bibasilar airspace opacities, greater l eft, persists. There are persistent perihilar opacities and interstitial thickening. IMPRESSION: 1. Satisfactory positioning of the endotracheal and nasogastric tubes. 2. Persistent extensive bilateral airspace opacities suggestive of multifocal pneumonia. ACT 112: Negative or not required by law. Electronically signed by: Gui Berumen M.D. 04/24/2021 8:05 AM
[2021-04-24] MEDS: Double Conc 32mcg/mL; 16mg in 500mL IV SCH ×2 (08:21→18:33)
[2021-04-24] MEDS: SODIUM BICARBONATE 8.4% 150 MEQ in WATER, STERILE 1,000 ML IV SCH (08:28)
--- NOTE | 2021-04-24 09:05 | Hospitalist Progress Note ---
Date of Service April 24, 2021 delayed entry date of service 04/23/21 Assessment & Plan (1) Encephalopathy acute: (2) Septic shock: Plan: Per Dr. Perrin's notes with addendum: This is a 70yo F with a PMH of paroxysmal A Fib on coumadin, HTN, HLD, history of CVA, DM II, EDYTA (CPAP at bedtime), hypothyroidism, anemia and other medical problems listed below who was brought into ED in obtunded state. Was recently admitted to [facility] 03/10-03/13 for Proteus bacteremia from complicated UTI in the setting of obstructive uropathy Hypotensive in ED with elevated procal, lactate and WBC consistent with septic shock in setting of underlying aspiration pneumonitis/pneumonia on chest CT as well as possible UTI CT head negative for acute intracranial process CTA chest which was negative for PE but did show bilateral infiltrates consistent with aspiration pneumonitis/pneumonia CT abdomen pelvis which showed patent ureteral stent and was negative for acute process Requiring pressor support in ICU - mgmt per hat ironer Continue empiric meropenem and vanco - follow cultures 04/23 Remains sedated, intubated, on pressors Urine and blood cultures pending Mechanical ventilation management per hat ironer Follow-up cultures Continue meropenem CT head: Unrevealing Monitor closely (3) Cardiac arrest: Plan: Went into PEA arrest in the ED following intubation but ROSC was achieved with compressions and epinephrine Continue monitoring in ICU (4) Acute respiratory failure with hypoxia: (5) Aspiration into airway: Plan: Management per above (6) Acute kidney injury superimposed on chronic kidney disease: Plan: In setting of infection, recent uropathy. Cr 2.69 (baseline ~1.1). Creatinine 2.5 Management of sepsis per above (7) S/P ureteral stent placement: Plan: S/p cystoscopy with left ureteral stent replacement 04/21/2021, by Dr. Edwards. Stent appears patent in CT abd/pelvis (8) HTN (hypertension): Plan: Hold BP meds (9) A-fib: Plan: On heparin drip (10) T2DM (type 2 diabetes mellitus): Plan: Holding home meds. Continue insulin (11) Sleep apnea: Plan: CPAP HS at home DVT Ppx: Heparin drip Code status: FULL PCP: Haim Dispo: Admitted to ICU Admission and Anticipated Discharge Date Admission Date: April 22, 2021 Subjective Follow-up for septic shock, encephalopathy, pneumonia, UTI, etc. Sedated, intubated Not in distress Breathing with no accessory muscle use or effort Still on vasopressors No other issues noted Review of Systems Review of Systems: all noted and negative except for above Physical Exam Physical Exam: General-sedated, intubated, breathing with no effort or accessory muscle use Head- atraumatic Eyes- anicteric ENT-ET tube in place no bleeding Neck- no JVD, no adenopathy, no thyromegaly; carotids +2/2, no bruits appreciated Lungs-positive rhonchi anteriorly Heart- normal rate, regular rhythm; no murmurs Abdomen- normal bowel sounds, nondistended, soft Extremities- no pretibial edema, no calf tenderness; peripheral pulses intact Neuro-sedated Skin- warm & dry Results & Data Results & Data ([facility]) Vital Signs (Past 12 Hours) Vital Signs Temp Pulse Resp Pulse Ox 04/24/21 07:30 59 L 23 93 04/24/21 06:00 36.3 C L 59 L 22 04/24/21 05:10 36.3 C L 58 L 21 95 04/24/21 05:00 36.3 C L 59 L 26 H 96 04/24/21 04:50 36.3 C L 60 26 H 96 04/24/21 04:40 36.4 C L 60 26 H 96 04/24/21 04:30 36.4 C L 60 26 H 96 04/24/21 04:20 36.5 C 60 26 H 95 04/24/21 04:10 36.6 C 60 26 H 96 04/24/21 04:00 36.7 C 60 26 H 96 04/24/21 03:59 60 27 H 96 04/24/21 03:50 36.8 C 63 26 H 96 04/24/21 03:40 36.8 C 61 26 H 96 04/24/21 03:30 36.9 C 63 26 H 96 04/24/21 03:15 36.9 C 62 26 H 95 04/24/21 03:00 65 32 H 92 04/24/21 02:45 65 35 H 96 04/24/21 02:30 62 18 95 04/24/21 02:15 62 23 95 04/24/21 02:00 63 21 95 04/24/21 01:45 63 26 H 95 04/24/21 01:30 63 15 95 04/24/21 01:15 61 21 95 04/24/21 01:00 63 14 95 04/24/21 00:45 63 26 H 95 04/24/21 00:30 61 26 H 95 04/24/21 00:15 61 26 H 94 04/24/21 00:00 36.4 C L 61 26 H 94 04/23/21 23:59 63 04/23/21 23:45 65 26 H 94 04/23/21 23:30 62 26 H 94 04/23/21 23:20 62 26 H 94 04/23/21 23:15 62 26 H 94 04/23/21 23:00 62 26 H 94 04/23/21 22:45 62 26 H 94 04/23/21 22:30 66 20 93 04/23/21 22:15 62 26 H 93 04/23/21 22:00 62 26 H 93 04/23/21 21:45 62 26 H 92 04/23/21 21:30 62 26 H 92 04/23/21 21:15 63 23 92
[2021-04-24] MEDS ORDERED: LIDOCAINE 2% LOCAL 20 ML VIAL INFIL SCH (10:00)
[2021-04-24] MEDS ORDERED: INSULIN GLARGINE SOLOSTAR 100 UNITS/ML 3 ML PEN SC STA (10:25)
--- NOTE | 2021-04-24 10:39 | Procedure Note ---
Procedure Note: Bronchoscopy Procedure PREOPERATIVE DIAGNOSIS: Left lower lobe collapse POSTOPERATIVE DIAGNOSIS: Left lower lobe collapse PROCEDURE PERFORMED: Flexible fiberoptic bronchoscopy with bronchoalveolar lavage COMPLICATIONS: None. INDICATION: As above PROCEDURE: After obtaining an informed consent from patient's daughter on the phone. The patient had appropriate oxygen, blood pressure, heart rate, and respiratory rate monitoring applied and monitored continuously throughout the procedure. Patient was put in 100% FiO2. Patient was already intubated. The bronchoscope was advanced through the ETT. The trachea appeared normal.The bronchoscope was then advanced through the tristan, which was sharp. The scope was then advanced into the right main stem and each segment, subsegement in the right upper lobe, right middle lobe and right lower lobe were visualized. There was moderate amount of greenish secretion appreciated in the right upper lobe which was suctioned out.. There were no other findings including evidence of mass, anatomic distortions, or hemorrhage. The bronchoscope was subsequently withdrawn and advanced into the left mainstem. Again, each segment and subsegment was well visualized. No specific masses or other lesions were identified throughout the tracheobronchial tree on the left. There was minimal amount of secretions appreciated in the left lower lobe which were suctioned out. No clear mucous plug was appreciated. Patient had very friable mucosa Dynamic collapse was also appreciated especially in the left lower lobe. The bronchoscope was then wedged in the left lower lobe and bronchoalveolar lavage samples were obtained. 60 ml of saline was instilled and 25 ml of fluid was aspirated back.The bronchoscope was withdrawn and the area was suctioned clear. The bronchoscope was then withdrawn to the mainstem. The area was suctioned clear. The bronchoscope was then withdrawn. The patient tolerated the procedure well without evidence of desaturation or complications. Bronchoalveolar lavage samples were sent for cell count, Gram stain and bacteria l culture, AFB culture and smear, fungal culture and smear and cytology. Recommendations: Follow-up chest x-ray and culture
[2021-04-24] MEDS: TUBE FEEDING WATER FLUSH OG SCH ×4 (11:00→23:34)
[2021-04-24] MEDS ORDERED: PEPTAMEN INTENSE VHP 1.0 CAL 1,000 ML BAG OG SCH (11:15)
--- NOTE | 2021-04-24 11:16 | XRay Report ---
XR chest 1V portable at 11:07 AM CLINICAL HISTORY: S/P bronch. Evaluate for pneumothorax COMPARISON STUDY: 04/24/2021 at 6:59 AM TECHNIQUE: 1 view of the chest FINDINGS: Single frontal view of the chest demonstrates the heart size to again be enlarged. Endotracheal tube is unchanged. Compared to the previous study, there is no evidence for pneumothorax. There is increas ed alveolar opacities particularly at the right lung base. There is also left lower lobe atelectasis/ collapse and left pleural effusion. There is no evidence for pleural effusion. There is no evidence f or vascular congestion. There is no acute osseous pathology. IMPRESSION: No evidence for pneumothorax. Increasing alveolar opacity right lung base. Left lower lob e atelectasis/collapse and left pleural effusion are also again seen. ACT 112: Negative or not required by law. Electronically signed by: Jax Lama M.D. 04/24/2021 11:15 AM
[2021-04-24] MEDS: PANTOprazole 40 MG in SYRINGE 0 ML IV SCH (11:38)
--- NOTE | 2021-04-24 11:47 | Pharmacy Report ---
Pharmacy Glycemic Short Note 2 - Date of Service April 24, 2021 - Glycemic Short BSG Results (Last 24 hours): 04/23/21 04/23/21 04/23/21 12:09 14:02 14:31 Glucose POC Glucose (other) 110 H 62 L* 159 H 04/23/21 04/23/21 04/23/21 15:11 15:32 15:58 Glucose POC Glucose (other) 121 H 108 H 172 H 04/23/21 04/23/21 04/23/21 17:13 17:39 17:54 Glucose POC Glucose (other) 129 H 121 H 124 H 04/23/21 04/23/21 04/23/21 18:29 20:35 21:33 Glucose POC Glucose (other) 137 H 153 H 150 H 04/23/21 04/24/21 04/24/21 22:29 00:24 02:36 Glucose POC Glucose (other) 146 H 140 H 133 H 04/24/21 04/24/21 04/24/21 04:42 05:47 06:29 Glucose 126 H POC Glucose (other) 127 H 127 H 04/24/21 04/24/21 08:30 10:37 Glucose POC Glucose (other) 121 H 128 H OUTPATIENT ANTIDIABETIC REGIMEN: * metformin 500mg BID, repaglinide 0.5mg TIDM * HbA1C: pending ASSESSMENT: 04/24 * Insulin drip trended down significantly from a max of 13 units/hr yesterday AM to a stable 1 unit/hr since last night with BSG's ranging 120's to 140's on current drip rate. Norepi titrated down to 0.09 units/kg/hr. Anticipated start of trickle feeds after bronch today. Discussed on ICU rounds - OK to transition to basal/bolus. * Will give low-dose Lantus as drip rate is already rather low. Anticipate ability to transition off of drip later this afternoon. * Will initiate Novolog q4h at weight-based moderate stress estimate. CHO coverage in tubefeeds to start if/when rate increases above trickle. 04/23 * Pharmacy consulted to assist with glycemic management in this 70YOF who presents with septic shock s/p 2 episodes of PEA cardiac arrest following intubation yesterday afternoon. History of DM2 on oral agents at home. Patient is intubated and sedated and requiring vasopressor support. NPO, and hemodynamically unstable. Plan for regular insulin infusion given numerous stressors and variable clinical status. Insulin drip to be continued per insulin infusion adjustment calculator, as patient requiring high amount of pressor support and unpredictable SQ absorption. PLAN FOR INPATIENT GLYCEMIC CONTROL: * Hold outpatient diabetes medications * Basal insulin * Lantus 12 units SC @ x1 administered at ~1200. Additional 0-10 units tonight, depending on BSG * Discontinue insulin drip today at 1800 (or earlier if protocol notes to hold drip and/or give dextrose) * Bolus insulin * NovoLog per scale q4h * Goal Range: Low 120 mg/dL - High 160 mg/dL * Correction factor: 20 mg/dL/unit * CHO ratio: 6 g CHO/unit (to start if/when Peptamen VHP >= 20 mL/hr) PLAN FOR DISCHARGE: * Resume home regimen, assuming no contraindications at discharge
[2021-04-24] MEDS: prednisoLONE acetate 1% OP SUSP 5 ML BTL OPL SCH ×2 (16:45→20:18)
--- NOTE | 2021-04-24 18:48 | Critical Care Progress Note ---
Date of Service April 24, 2021 Assessment & Plan (1) Multifocal pneumonia: (2) PEA (Pulseless electrical activity): (3) Acute kidney injury superimposed on chronic kidney disease: (4) Cardiac arrest: (5) Aspiration into airway: (6) Acute respiratory failure with hypoxia: (7) Septic shock: (8) Diastolic dysfunction: Plan: Reason Critically Ill: 70-year-old female with recent ureteral calculi and hydronephrosis requiring ureteral stent, presents to the ICU after being found unresponsive in severe septic shock, acute hypoxic respiratory failure, acute r enal failure. Currently mechanically ventilated on multiple vasopressors Neuro - Acute encephalopathy suspect this is secondary to severe sepsis/UTI. CT head negative. Continue with supportive care. May consider EEG if encephalopathy does not begin to clear. Cardiac - Cardiac arrest/shock Cardiac arrest status post intubation, ROSC achieved with multiple rounds of CPR and epi CT negative for PE EKG without ST elevation or depression. Troponin negative Continue with vasopressor support to keep MAP greater than 65 Random cortisol was 53, no need for continuous hydrocortisone 2D echo 04/23/2021: EF 35 and 40% with grade 2 diastolic dysfunction, right- sided pressure 48 mmHg Respiratory - --VDRF with acute hypoxic respiratory failure CTA chest negative for PE. Bilateral infiltrates that are consistent with pneumonia/aspiration and suspect this is the primary contributor to her profound hypoxia. BNP greater than 35,000 COVID-19 PCR negative Influenza A/B negative RSV negative Procalcitonin elevated -Continue with support with mechanical ventilation for now, trend ABGs and wean vent as tolerated -See ID treatment below --History of EDYTA GI - --Transaminitis With elevated INR Likely shock liver from hypotension Continue to monitor RENAL/LYTES - Acute on chronic renal failure creatinine 2.69 with prior baseline 1.11. Likely from hypotension --> improving Monitor BUN/creatinine Avoid nephrotoxic medications Strict ins and outs --S/p high anion gap metabolic acidosis Likely secondary to elevated BUN along with elevated beta hydroxybutyrate acid Salicylates as well as acetaminophen level negative - Ureteral calculi status post left ureteral nephroscopy with extraction of stone and exchange of left stent on 04/21. CT abdomen pelvis 04/22/21 shows patent left ureteral stent. Foleystrict I's and O's ENDO - DM type II Continue with ICU hypoglycemia protocol Hypothyroidcontinue Synthroid HEME - H&H stable,, continue to monitor ID - Sepsis Source likely UTI Blood cultures, urine culture pending. Patient did grow pansensitive E. coli and Pseudomonas on urine culture on 04/14. Nasal MRSA negative --> got 1 dose of vancomycin 04/23/2021 Patient does have multi lobar infiltrates could be aspiration pneumonia. Continue with meropenem --Prophylaxis VTE: Heparin drip GI: Protonix Lines: Right femoral, left radial, positive Joseph Diet: Start tube feeds Plan: In/out: +5.5 L, urine output 1620 His ABG from today is alkalotic. I will DC the bicarb drip Try to titrate off the vasopressors gradually. Hypokalemia being replaced. Patient creatinine is improving. Start trophic tube feeds Patient still has persistent left lower lobe collapse. We will plan to do bronchoscopy later today. I have personally spent 36 minutes of critical care time in the direct management of this patient. This is a life/limb threatening event. This includes time spent evaluating patient, direct bedside care, chart review, placing orders, interpretation of diagnostic studies, discussion with consultants, patient, and family members, as well as other required patient management activities. This time is exclusive of all separately billable procedures, and teaching time and separate from and in addition to any other critical care service time. Admission and Anticipated Discharge Date Admission Date: April 22, 2021 Subjective Patient seen and examined at bedside. No acute distress, no adverse events ov ernight. Patient was on 20 of propofol and 75 continue the time of examination She is opening her eyes but she is not following commands. She is breathing with the vent. Review of Systems Review of Systems: Unobtainable due to endotracheal tube Physical Exam Physical Exam: Constitutional: No acute distress HEENT: PERRLA, positive ETT Respiratory system: Decreased entry bilaterally, no wheeze, rhonchi, positive crackles bilateral lower lobes CVS: S1-S2 positive, no murmurs or gallops Abdomen: Soft, nontender, nondistended, positive bowel sounds x4, obese Extremities: +2 pulses bilaterally radialis/ dorsalis pedis, no cyanosis, +1 edema bilateral lower extremity Neuro: Sedated, breathing with vent, positive gag, positive corneal Psych: Unable to assess G/U: Positive Joseph Results & Data Results & Data ([facility]) Vital Signs (Past 12 Hours) Vital Signs Temp Pulse Resp BP Pulse Ox 04/24/21 18:00 36.9 C 72 22 99/52 L 92 04/24/21 17:00 36.8 C 74 22 93 04/24/21 16:43 75 24 91 04/24/21 16:00 36.6 C 72 22 92 04/24/21 15:00 36.4 C L 72 21 91 04/24/21 14:00 36.4 C L 74 21 92 04/24/21 13:30 36.4 C L 70 22 92 04/24/21 13:15 36.5 C 68 21 91 04/24/21 13:00 36.5 C 69 22 91 04/24/21 12:45 36.5 C 65 22 92 04/24/21 12:30 36.5 C 62 22 93 04/24/21 12:15 36.5 C 61 22 93 04/24/21 12:00 36.5 C 59 L 22 92 04/24/21 11:45 36.4 C L 60 22 91 04/24/21 11:30 36.5 C 60 22 89 L 04/24/21 11:15 36.4 C L 57 L 22 90 04/24/21 11:05 59 L 22 92 04/24/21 11:00 36.4 C L 57 L 22 100 04/24/21 10:45 36.4 C L 58 L 22 100 04/24/21 10:30 36.3 C L 63 18 98 04/24/21 10:15 36.3 C L 57 L 22 100 04/24/21 10:00 36.3 C L 57 L 22 93 04/24/21 09:45 36.2 C L 57 L 22 94 04/24/21 09:30 36.2 C L 60 22 93 04/24/21 09:15 36.2 C L 58 L 22 93 04/24/21 09:00 36.1 C L 60 19 93 04/24/21 08:45 36.1 C L 61 22 92 04/24/21 08:30 36.0 C L 60 22 92 04/24/21 08:15 36.0 C L 61 22 92 04/24/21 08:00 36.0 C L 60 22 92 04/24/21 07:45 36.0 C L 64 22 92 04/24/21 07:30 36.1 C L 61 22 92 04/24/21 07:15 36.1 C L 59 L 22 95 04/24/21 07:00 36.1 C L 59 L 22 95 04/24/21 06:45 36.1 C L 57 L 22 96 Laboratory Results 04/24/21 05:47 04/24/21 05:47 Coding Level of Care Code Critical Care 1st 30-74 mins Diagnoses Multifocal pneumonia J18.9 PEA (Pulseless electrical activity) I46.9 Acute kidney injury superimposed on chronic kidney disease N17.9; N18.9 Cardiac arrest I46.9 Aspiration into airway T17.908A Acute respiratory failure with hypoxia J96.01 Septic shock A41.9; R65.21 Diastolic dysfunction I51.89 Time Spent (min) 36
[2021-04-24 19:18] LABS: BUN Creatinine Ratio 30.3 (10-20); Calcium 7.6 mg/dl (8.5-10.1); Est GFR (African American) 40.9 ml/min; Est GFR (Non-African American) 35.3 ml/min; Potassium 3.6 mmol/L (3.5-5.1)
[2021-04-25] MEDS: INSULIN ASPART PER UNIT SC SCH ×6 (00:17→20:48)
[2021-04-25] MEDS: TUBE FEEDING WATER FLUSH OG SCH ×5 (04:15→20:48)
[2021-04-25] MEDS: VASOPRESSIN 20 UNITS in 0.9 % SODIUM CHLORIDE 100 ML IV SCH ×3 (04:43→17:57)
[2021-04-25] MEDS: propofoL 1,000 MG/100 ML VIAL IV SCH ×4 (04:48→16:00)
[2021-04-25] MEDS: CEFEPIME 2,000 MG in SYRINGE 0 ML IV SCH ×2 (05:41→17:15)
[2021-04-25 06:54] LABS: Mean Corpuscular Hgb Conc 33.1 g/dL (32-36); Nucleated RBC # (auto) 0.05 K/uL (0-0); Nucleated RBC % (auto) 0.2 %
[2021-04-25 07:09] LABS: Partial Thromboplastin Ratio 1.5; Partial Thromboplastin Time 40.2 Seconds (21.0-31.0)
[2021-04-25 07:20] LABS: Albumin Level 1.8 gm/dl (3.4-5.0); BUN Creatinine Ratio 30.6 (10-20); Bilirubin Direct 0.5 mg/dl (0-0.2); Calcium 8.1 mg/dl (8.5-10.1); Creatinine Clr Calc Pharmacy 46.5 ml/min; Est GFR (African American) 44.9 ml/min; Est GFR (Non-African American) 38.7 ml/min; Magnesium 2.5 mg/dl (1.8-2.4); Potassium 3.5 mmol/L (3.5-5.1)
[2021-04-25 07:39] LABS: Hematocrit (blood only) 30.5 % (37-47); Hemoglobin 10.1 g/dL (12.0-16.0); Mean Corpuscular Hemoglobin 27.8 pg (25-34); Platelet Count 81 K/uL (130-400); RDW Coefficient of Variation 15.8 % (11.5-14.5); RDW Standard Deviation 48.9 fL (36.4-46.3); Red Blood Count 3.63 M/uL (4.2-5.4); White Blood Count 25.02 K/uL (4.8-10.8)
[2021-04-25 07:40] LABS: Bilirubin,Total 0.9 mg/dl (0.2-1); Phosphorus 2.1 mg/dl (2.5-4.9)
[2021-04-25 07:43] LABS: Basophils # (auto) 0.02 K/uL (0-0.2); Basophils % (auto) 0.1 %; Dohle Bodies 1+; Eosinophils # (auto) 0.17 K/uL (0-0.5); Eosinophils % (auto) 0.7 %; Immature Granulocytes # (auto) 0.16 K/uL (0.00-0.02); Immature Granulocytes % (auto) 0.6 %; Lymphocytes # (auto) 1.28 K/uL (1.2-3.4); Lymphocytes % (auto) 5.1 %; Monocytes # (auto) 2.08 K/uL (0.11-0.59); Monocytes % (auto) 8.3 %; Neutrophils # (auto) 21.31 K/uL (1.4-6.5); Neutrophils % (auto) 85.2 %; Platelet Estimate Decreased (Normal); Toxic Vacuolation 1+
[2021-04-25] MEDS: Double Conc 32mcg/mL; 16mg in 500mL IV SCH (07:57)
[2021-04-25] MEDS: HEPARIN SODIUM/DEXTROSE 25,000 UNITS/500 ML BAG IV SCH ×2 (07:57→17:13)
--- NOTE | 2021-04-25 08:13 | Critical Care Progress Note ---
Date of Service April 25, 2021 Assessment & Plan (1) Multifocal pneumonia: (2) PEA (Pulseless electrical activity): (3) Acute kidney injury superimposed on chronic kidney disease: (4) Cardiac arrest: (5) Aspiration into airway: (6) Acute respiratory failure with hypoxia: (7) Septic shock: (8) Diastolic dysfunction: Plan: Reason Critically Ill: 70-year-old female with recent ureteral calculi and hydronephrosis requiring ureteral stent, presents to the ICU after being found unresponsive in severe septic shock, acute hypoxic respiratory failure, acute r enal failure. Currently mechanically ventilated on multiple vasopressors Neuro - Acute encephalopathy--> improved suspect this is secondary to severe sepsis/UTI. CT head negative. Continue with supportive care. May consider EEG if encephalopathy does not begin to clear. Cardiac - Cardiac arrest/shock Cardiac arrest status post intubation, ROSC achieved with multiple rounds of CPR and epi CT negative for PE EKG without ST elevation or depression. Troponin negative Continue with vasopressor support to keep MAP greater than 65 --> off vasopressor as of 04/25/2021 Random cortisol was 53, no need for continuous hydrocortisone 2D echo 04/23/2021: EF 35 and 40% with grade 2 diastolic dysfunction, right-sided pressure 48 mmHg Respiratory - --VDRF with acute hypoxic respiratory failure CTA chest negative for PE. Bilateral infiltrates that are consistent with pneumonia/aspiration and suspect this is the primary contributor to her profound hypoxia. BNP greater than 35,000 COVID-19 PCR negative Influenza A/B negative RSV negative Procalcitonin elevated -Continue with support with mechanical ventilation for now, trend ABGs and wean vent as tolerated -See ID treatment below --Left lower collapse S/p bronchoscopy 04/21/2021 It did not show any significant mucous plugging Did show dynamic collapse of the left lower lobe --History of EDYTA GI - --Transaminitis With elevated INR Likely shock liver from hypotension Continue to monitor RENAL/LYTES - Acute on chronic renal failure creatinine 2.69 with prior baseline 1.11. Likely from hypotension --> improving Monitor BUN/creatinine Avoid nephrotoxic medications Strict ins and outs --S/p high anion gap metabolic acidosis Likely secondary to elevated BUN along with elevated beta hydroxybutyrate acid Salicylates as well as acetaminophen level negative - Ureteral calculi status post left ureteral nephroscopy with extraction of stone and exchange of left stent on 04/21. CT abdomen pelvis 04/22/21 shows patent left ureteral stent. Foleystrict I's and O's ENDO - DM type II Continue with ICU hypoglycemia protocol Hypothyroidcontinue Synthroid HEME - H&H stable --Thrombocytopenia Likely from sepsis induced Continue to monitor ID - Sepsis Source likely UTI Blood cultures, urine culture pending. Patient did grow pansensitive E. coli and Pseudomonas on urine culture on 04/14. Nasal MRSA negative --> got 1 dose of vancomycin 04/23/2021 Patient does have multi lobar infiltrates could be aspiration pneumonia. Continue with meropenem --Prophylaxis VTE: Heparin drip GI: Protonix Lines: Right femoral, left radial, positive Joseph Diet: Tube feeds Plan: In/out: Positive 290, urine output 2625 I will order fungal culture for the patient. Patient's urine culture is growing Lida which is likely a colonizer. No need to treat. Patient does have worsening thrombocytopenia this is most likely from sepsis. Continue to monitor Hypokalemia and hypophosphatemia being replaced I have personally spent 37 minutes of critical care time in the direct management of this patient. This is a life/limb threatening event. This includes time spent evaluating patient, direct bedside care, chart review, placing orders, interpretation of diagnostic studies, discussion with consultants, p atient, and family members, as well as other required patient management activities. This time is exclusive of all separately billable procedures, and teaching time and separate from and in addition to any other critical care service time. Admission and Anticipated Discharge Date Admission Date: April 22, 2021 Subjective Patient seen and examined at bedside. No acute distress, no adverse events overnight Patient is opening eyes and following commands She is on low-dose propofol and fentanyl Denies any headache, no chest pain On 0.07 of Levophed Review of Systems Review of Systems: Unobtainable due to endotracheal tube Physical Exam Physical Exam: Constitutional: No acute distress HEENT: PERRLA, positive ETT Respiratory system: Decreased entry bilaterally, no wheeze, rhonchi, positive crackles bilateral lower lobes CVS: S1-S2 positive, no murmurs or gallops Abdomen: Soft, nontender, nondistended, positive bowel sounds x4, obese Extremities: +2 pulses bilaterally radialis/ dorsalis pedis, no cyanosis, +1 edema bilateral lower extremity Neuro: Sedated, breathing with vent, following commands Psych: Unable to assess G/U: Positive Joseph Skin: no rashes, warm and dry Lymphatic: no cervical or axillary lymphadenopathy Results & Data Results & Data ([facility]) Vital Signs (Past 12 Hours) Vital Signs Temp Pulse Resp Pulse Ox 04/25/21 05:00 37.5 C 82 22 98 04/25/21 04:45 37.6 C H 82 22 97 04/25/21 04:30 0 L 22 100 04/25/21 04:15 37.2 C 85 22 90 04/25/21 04:10 83 23 90 04/25/21 04:00 37.2 C 87 23 93 04/25/21 03:45 37.2 C 86 22 93 04/25/21 03:30 37.2 C 84 23 94 04/25/21 03:15 37.2 C 81 19 94 04/25/21 03:00 37.2 C 86 24 93 04/25/21 02:45 37.2 C 86 24 93 04/25/21 02:30 37.2 C 84 22 94 04/25/21 02:15 37.2 C 84 21 93 04/25/21 02:00 37.2 C 83 23 94 04/25/21 01:45 37.2 C 85 22 93 04/25/21 01:30 37.2 C 85 22 93 04/25/21 01:15 37.2 C 88 24 93 04/25/21 01:00 37.2 C 87 26 H 93 04/25/21 00:45 37.2 C 87 23 93 04/25/21 00:30 37.2 C 88 22 90 04/25/21 00:15 37.2 C 94 H 27 H 90 04/25/21 00:00 37.2 C 92 H 24 92 04/24/21 23:59 85 04/24/21 23:45 37.1 C 90 22 93 04/24/21 23:35 89 25 H 93 04/24/21 23:30 37.1 C 89 22 92 04/24/21 23:15 37.0 C 89 25 H 92 04/24/21 23:00 37.0 C 84 26 H 92 04/24/21 22:45 36.9 C 93 H 27 H 91 04/24/21 22:30 36.9 C 91 H 28 H 89 L 12/23/21 22:15 36.8 C 86 20 92 04/24/21 22:00 36.8 C 89 22 92 04/24/21 21:45 36.7 C 96 H 25 H 91 04/24/21 21:30 36.7 C 86 22 91 04/24/21 21:15 36.7 C 85 24 91 04/24/21 21:00 36.4 C L 95 H 27 H 91 04/24/21 20:45 36.3 C L 83 13 94 04/24/21 20:30 36.2 C L 94 H 18 93 04/24/21 20:15 36.0 C L 90 23 91 Laboratory Results 04/25/21 06:41 04/25/21 06:41 Coding Level of Care Code Critical Care 1st 30-74 mins Diagnoses Multifocal pneumonia J18.9 PEA (Pulseless electrical activity) I46.9 Acute kidney injury superimposed on chronic kidney disease N17.9; N18.9 Cardiac arrest I46.9 Aspiration into airway T17.908A Acute respiratory failure with hypoxia J96.01 Septic shock A41.9; R65.21 Diastolic dysfunction I51.89 Time Spent (min) 37
[2021-04-25] MEDS ORDERED: POTASSIUM PHOS 3 MMOL/1 ML INFUSION IV STA (08:15)
[2021-04-25] MEDS ORDERED: POTASSIUM PHOSPHATE 21 MMOL in SODIUM CHLORIDE 0.9% 500 ML IV ONE (09:00)
--- NOTE | 2021-04-25 09:05 | Ultrasound Report ---
BILATERAL LOWER EXTREMITY VENOUS DOPPLER HISTORY: Acute pain and swelling of the lower legs r/o DVT, B/l COMPARISON STUDY: None. FINDINGS: There is normal compressibility, flow, and augmentation within the bilateral lower extremit y deep venous systems. Is dilation of the right lower extremity deep venous structures secondary to s ubcutaneous edema. IMPRESSION: No DVT within the right or left lower extremity. ACT 112: Negative or not required by law. Electronically signed by: Balwinder Zimmerman M.D. 04/25/2021 9:04 AM
[2021-04-25] MEDS: MULTI VIT W/MINERALS LIQUID 15 ML UDP NG SCH (09:21)
[2021-04-25] MEDS: prednisoLONE acetate 1% OP SUSP 5 ML BTL OPL SCH ×4 (09:24→20:49)
[2021-04-25] MEDS: ICU ELECTROLYTE REPLACEMENT PROTOCOL SCH ×2 (10:01→17:18)
[2021-04-25] MEDS: POTASSIUM CHLORIDE 20 MEQ/15 ML UDC NG SCH ×2 (10:21→14:14)
--- NOTE | 2021-04-25 11:04 | XRay Report ---
XR chest 1V portable CLINICAL HISTORY: F/U TECHNIQUE: Single frontal radiograph of the chest was obtained. Comparison: Comparison is made to chest one view 04/24/2021 FINDINGS: Lines and tubes are stable. Cardiomegaly is noted. Bilateral lower lung predominant airspace opacitie s are seen. Lungs are underinflated. No evidence of pleural effusion or pneumothorax. IMPRESSION: 1. Bilateral lower lobe predominant airspace opacities are slightly more pronounced than on the prio r exam. 2. Stable cardiomegaly. 3. Lines and tubes are stable. ACT 112: Negative or not required by law. Electronically signed by: Tiburcio Casey M.D. 04/25/2021 11:02 AM
[2021-04-25] MEDS: PANTOprazole 40 MG in SYRINGE 0 ML IV SCH (11:18)
[2021-04-25] MEDS ORDERED: INSULIN GLARGINE SOLOSTAR 100 UNITS/ML 3 ML PEN SC ONE ×3 (12:00→20:00)
--- NOTE | 2021-04-25 12:28 | Ultrasound Report ---
BILATERAL LOWER EXTREMITY ARTERIAL DOPPLER ULTRASOUND CLINICAL HISTORY: lower extremity changes; low platelets COMPARISON STUDY: No previous studies for comparison. TECHNIQUE: Grayscale, color and duplex Doppler sonography of the arterial systems of both lower extre mities was performed. Ankle-brachial indices could not be performed given portable study. FINDINGS: Exam is compromised by suboptimal penetration related to lower extremity edema. Note was ma de of biphasic flow within the bilateral common femoral and superficial femoral arteries. There was m onophasic flow within the bilateral popliteal, anterior tibial, posterior tibial, peroneal and dorsal is pedis vessels. No elevated velocities were identified. Mild atherosclerotic plaque was noted withi n the lower extremities. IMPRESSION: 1. Exam compromised by suboptimal penetration but no vessel occlusion identified. Monophasic flow wit hin the bilateral calf vessels. 2. No elevated velocities to suggest a hemodynamically significant stenosis. Mild atherosclerotic lisa que within the bilateral lower extremities. ACT 112: Negative or not required by law. Electronically signed by: Gui Berumen M.D. 04/25/2021 12:27 PM
--- NOTE | 2021-04-25 17:10 | Hospitalist Progress Note ---
Date of Service April 25, 2021 Delayed entry Date of service 04/24/2021 Assessment & Plan (1) Encephalopathy acute: (2) Septic shock: Plan: Per Dr. Perrin's notes with addendum: This is a 70yo F with a PMH of paroxysmal A Fib on coumadin, HTN, HLD, history of CVA, DM II, EDYTA (CPAP at bedtime), hypothyroidism, anemia and other medical problems listed below who was brought into ED in obtunded state. Was recently admitted to [facility] 03/10-03/13 for Proteus bacteremia from complicated UTI in the setting of obstructive uropathy Hypotensive in ED with elevated procal, lactate and WBC consistent with septic shock in setting of underlying aspiration pneumonitis/pneumonia on chest CT as well as possible UTI CT head negative for acute intracranial process CTA chest which was negative for PE but did show bilateral infiltrates consistent with aspiration pneumonitis/pneumonia CT abdomen pelvis which showed patent ureteral stent and was negative for acute process Requiring pressor support in ICU - mgmt per traffic sign erection supervisor Continue empiric meropenem and vanco - follow cultures 04/24 Status post bronchoscopy Off sedation Remains intubated, on 1 pressor FiO2 requirement decreasing Urine and blood cultures negative so far Mechanical ventilation management per traffic sign erection supervisor Follow-up cultures Continue cefepime CT head: Unrevealing Monitor closely (3) Cardiac arrest: Plan: Went into PEA arrest in the ED following intubation but ROSC was achieved with compressions and epinephrine Continue monitoring in ICU (4) Acute respiratory failure with hypoxia: (5) Aspiration into airway: Plan: Management per above (6) Acute kidney injury superimposed on chronic kidney disease: Plan: In setting of infection, recent uropathy. Cr 2.69 (baseline ~1.1). Creatinine improving, 1.7 Management of sepsis per above (7) S/P ureteral stent placement: Plan: S/p cystoscopy with left ureteral stent replacement 04/21/2021, by Dr. Edwards. Stent appears patent in CT abd/pelvis (8) HTN (hypertension): Plan: Hold BP meds (9) A-fib: Plan: On heparin drip (10) T2DM (type 2 diabetes mellitus): Plan: Holding home meds. Continue insulin (11) Sleep apnea: Plan: CPAP HS at home DVT Ppx: Heparin drip Code status: FULL PCP: Haim Dispo: Admitted to ICU Admission and Anticipated Discharge Date Admission Date: April 22, 2021 Subjective Follow-up for septic shock, encephalopathy, pneumonia, UTI, etc. intubated, on vasopressor Off sedation, opens eyes to verbal command Mostly lethargic Not in respiratory distress Breathing with no accessory muscle use, or effort Status post bronchoscopy status No other issues per ground source heat pump technician of Systems Review of Systems: all noted and negative except for above Physical Exam Physical Exam: General-lethargic, breathing with no effort or accessory muscle use Eyes- anicteric ET tube in place, NG tube in place, no bleeding or discharge Neck- no JVD Lungs-mild rhonchi bilaterally anteriorly Heart- normal rate, regular rhythm; no murmurs Abdomen- normal bowel sounds, nondistended, soft, nontender Extremities-mild upper extremity edema, no calf tenderness Neuro-lethargic Skin- warm & dry Results & Data Results & Data ([facility]) Vital Signs (Past 12 Hours) Vital Signs Temp Pulse Resp Pulse Ox 04/25/21 13:45 90 25 H 91 04/25/21 13:00 36.8 C 89 21 94 04/25/21 12:00 36.8 C 86 23 91 04/25/21 11:00 36.8 C 86 22 97 04/25/21 10:05 83 24 92 04/25/21 10:00 36.9 C 80 23 92 04/25/21 09:00 37.1 C 68 22 94 04/25/21 08:38 108 H 26 H 94 04/25/21 08:00 37.1 C 66 22 94 04/25/21 07:00 37.2 C 73 22 93 04/25/21 06:00 37.3 C 68 22 95 all noted and reviewed including below
--- NOTE | 2021-04-25 17:56 | Hospitalist Progress Note ---
Date of Service April 25, 2021 Assessment & Plan (1) Encephalopathy acute: (2) Septic shock: Plan: Per Dr. Perrin's notes with addendum: This is a 70yo F with a PMH of paroxysmal A Fib on coumadin, HTN, HLD, history of CVA, DM II, EDYTA (CPAP at bedtime), hypothyroidism, anemia and other medical problems listed below who was brought into ED in obtunded state. Was recently admitted to [facility] 03/10-03/13 for Proteus bacteremia from complicated UTI in the setting of obstructive uropathy Hypotensive in ED with elevated procal, lactate and WBC consistent with septic shock in setting of underlying aspiration pneumonitis/pneumonia on chest CT as well as possible UTI CT head negative for acute intracranial process CTA chest which was negative for PE but did show bilateral infiltrates consistent with aspiration pneumonitis/pneumonia CT abdomen pelvis which showed patent ureteral stent and was negative for acute process Requiring pressor support in ICU - mgmt per research physiologist Continue empiric meropenem and vanco - follow cultures 04/25 Status post bronchoscopy 04/24/2021 Off sedation Remains intubated, off pressor Spontaneous breathing trial in progress Urine and blood cultures negative so far Mechanical ventilation management per research physiologist Follow-up cultures Continue cefepime CT head: Unrevealing Monitor closely (3) Cardiac arrest: Plan: Went into PEA arrest in the ED following intubation but ROSC was achieved with compressions and epinephrine Continue monitoring in ICU (4) Acute respiratory failure with hypoxia: (5) Aspiration into airway: Plan: Management per above (6) Acute kidney injury superimposed on chronic kidney disease: Plan: In setting of infection, recent uropathy. Cr 2.69 (baseline ~1.1). Creatinine improving, 1.3 Management of sepsis per above (7) S/P ureteral stent placement: Plan: S/p cystoscopy with left ureteral stent replacement 04/21/2021, by Dr. Edwards. Stent appears patent in CT abd/pelvis (8) HTN (hypertension): Plan: Hold BP meds (9) A-fib: Plan: On heparin drip (10) T2DM (type 2 diabetes mellitus): Plan: Holding home meds. Continue insulin (11) Sleep apnea: Plan: CPAP HS at home DVT Ppx: Heparin drip Code status: FULL PCP: Haim Dispo: Admitted to ICU Admission and Anticipated Discharge Date Admission Date: April 22, 2021 Subjective Follow-up for septic shock, encephalopathy, aspiration pneumonia, UTI, etc. Seen resting in bed, off sedation, lethargic, opens eyes to verbal command Intubated, not in distress Spontaneous breathing trial in progress, doing well so far since 1:30 PM No other issues per campus interviews intern of Systems Review of Systems: Unobtainable due to cognitive status Physical Exam Physical Exam: General-drowsy, breathing with no effort or accessory muscle use Eyes- anicteric ET tube in place, NG tube in place No bleeding or discharge Neck- no JVD Lungs-positive rhonchi anteriorly, good air entry bilaterally Heart- normal rate, regular rhythm; no murmurs Abdomen- normal bowel sounds, nondistended, soft Extremities-mild lower leg edema Neuro-lethargic Skin- warm & dry Results & Data Results & Data ([facility]) Vital Signs (Past 12 Hours) Vital Signs Temp Pulse Resp BP Pulse Ox 04/25/21 17:00 36.7 C 94 H 20 137/63 91 04/25/21 16:00 36.7 C 93 H 27 H 91 04/25/21 15:00 36.8 C 89 24 93 04/25/21 14:00 36.8 C 83 20 95 04/25/21 13:45 90 25 H 91 04/25/21 13:00 36.8 C 89 21 94 04/25/21 12:00 36.8 C 86 23 91 04/25/21 11:00 36.8 C 86 22 97 04/25/21 10:05 83 24 92 04/25/21 10:00 36.9 C 80 23 92 04/25/21 09:00 37.1 C 68 22 94 04/25/21 08:38 108 H 26 H 94 04/25/21 08:00 37.1 C 66 22 94 04/25/21 07:00 37.2 C 73 22 93 04/25/21 06:00 37.3 C 68 22 95 all noted and reviewed including below
[2021-04-26] MEDS: INSULIN ASPART PER UNIT SC SCH ×6 (00:44→21:42)
[2021-04-26] MEDS: TUBE FEEDING WATER FLUSH OG SCH ×6 (00:44→21:42)
[2021-04-26 04:45] LABS: Partial Thromboplastin Ratio 1.3; Partial Thromboplastin Time 34.5 Seconds (21.0-31.0)
[2021-04-26 04:50] LABS: BUN Creatinine Ratio 31.5 (10-20); Calcium 8.3 mg/dl (8.5-10.1); Est GFR (African American) 59.8 ml/min; Est GFR (Non-African American) 51.6 ml/min; Magnesium 2.3 mg/dl (1.8-2.4); Potassium 3.9 mmol/L (3.5-5.1)
[2021-04-26 05:01] LABS: ALC (manual) 0.91 K/uL (1.2-3.4); ANC (manual) 13.56 K/uL (1.4-6.5); Hematocrit (blood only) 30.9 % (37-47); Hemoglobin 9.8 g/dL (12.0-16.0); Lymphocytes # (manual) 0.91 K/uL (1.2-3.4); Lymphocytes % (manual) 6.1 %; Mean Corpuscular Hemoglobin 27.6 pg (25-34); Mean Corpuscular Hgb Conc 31.7 g/dL (32-36); Mean Platelet Volume 11.6 fL (7.4-10.4); Monocytes # (manual) 0.39 K/uL (0.11-0.59); Monocytes % (manual) 2.6 %; Neutrophils # (manual) 13.56 K/uL (1.4-6.5); Neutrophils % (manual) 91.3 %; Nucleated RBC # (auto) 0.02 K/uL (0-0); Nucleated RBC % (auto) 0.1 %; Platelet Count 74 K/uL (130-400); RBC Morphology Unremarkable; Red Blood Count 3.55 M/uL (4.2-5.4); White Blood Count 14.85 K/uL (4.8-10.8)
[2021-04-26 05:08] LABS: Phosphorus 2.7 mg/dl (2.5-4.9)
[2021-04-26 05:31] LABS: iSTAT Art Bld Gas pCO2 Correct 42 mmHg (35-46); iSTAT Art Bld Gas pH Corrected 7.472 (7.35-7.45); iSTAT Arterial Blood Gas HCO3 31 meg/L (19-24); iSTAT Arterial Blood Gas pCO2 42 mmHg (35-46); iSTAT Arterial Blood Gas pH 7.47 (7.35-7.45); iSTAT Arterial Blood Gas pO2 61 mmHg (80-95); iSTAT Arterial Blood Gas pO2 C 61; iSTAT Carbon Dioxide 32 mmol/L (24-31); iSTAT FiO2 45 %; iSTAT Hematocrit 29 % (37-47); iSTAT Hemoglobin 9.9 g/dl (12.0-16.0); iSTAT Potassium 3.9 mmol/L (3.3-5.0); iSTAT Site Art Line; iSTAT Sodium 141 mmol/L (135-144)
[2021-04-26] MEDS ORDERED: PROPOFOL IV EMULSION 10 MG/ML 100 ML VIAL IV ONE (05:31)
[2021-04-26] MEDS: CEFEPIME 2,000 MG in SYRINGE 0 ML IV SCH ×2 (05:32→17:20)
[2021-04-26] MEDS: ICU ELECTROLYTE REPLACEMENT PROTOCOL SCH ×2 (06:25→17:26)
[2021-04-26] MEDS ORDERED: HEPARIN SOD (PORCINE) 1000 UNIT/ML IV ONE (06:40)
[2021-04-26] MEDS: HEPARIN SODIUM/DEXTROSE 25,000 UNITS/500 ML BAG IV SCH ×2 (06:46→06:53)
[2021-04-26] MEDS: prednisoLONE acetate 1% OP SUSP 5 ML BTL OPL SCH ×4 (08:06→21:43)
[2021-04-26] MEDS: MULTI VIT W/MINERALS LIQUID 15 ML UDP NG SCH (08:06)
--- NOTE | 2021-04-26 08:53 | XRay Report ---
XR chest 1V portable CLINICAL HISTORY: Follow-up bilateral airspace opacities. COMPARISON STUDY: 04/25/2021 TECHNIQUE: 1 view of the chest FINDINGS: Single frontal view of the chest demonstrates the heart size to again be enlarged. Endotracheal tube is again noted. Compared to previous examination, there is worsening of diffuse interstitial and alve olar opacities bilaterally. There is evidence for small left pleural effusion and left basilar atelec tasis as well. There is no evidence for vascular congestion. There is no acute osseous pathology. IMPRESSION: Interval worsening of interstitial and alveolar opacities bilaterally with evidence of sm all left pleural effusion and left basilar atelectasis as well. ACT 112: Negative or not required by law. Electronically signed by: Jax Lama M.D. 04/26/2021 8:52 AM
--- NOTE | 2021-04-26 11:17 | Procedure Note ---
Procedure Note: Bronchoscopy Procedure PREOPERATIVE DIAGNOSIS: Left lower lobe collapse POSTOPERATIVE DIAGNOSIS: Left lower lobe collapse PROCEDURE PERFORMED: Flexible fiberoptic bronchoscopy with BAL COMPLICATIONS: None. INDICATION: Left lower lobe collapse PROCEDURE: Consent was obtained from patient's daughter. Patient was already intubated. She was given total of 125 MCG of fentanyl Bronchoscope was advanced through the ETT. Lidocaine was given at the tristan. The trachea appeared normal.The bronchoscope was then advanced through the tristan, which was sharp. The scope was then advanced into the right main stem and each segment, subsegement in the right upper lobe, right middle lobe and right lower lobe were visualized. There was minimal amounts of clear secretions noted. There were no other findings including evidence of mass, anatomic distortions, or hemorrhage. Left main did show clear secretion right near the tristan which was suctioned out. Left main does have friable mucosa. The bronchoscope was subsequently withdrawn and advanced into the left mainstem. Again, each segment and subsegment was well visualized. No specific masses or other lesions were identified throughout the tracheobronchial tree on the left. There was moderate amount of parker secretion which were suctioned out. The bronchoscope was then wedged in the left lower lobe posterior segment and bronchoalveolar lavage samples were obtained. 90 ml of saline was instilled and 30 ml of fluid was aspirated back.The bronchoscope was withdrawn and the area was suctioned clear. The bronchoscope was then withdrawn to the mainstem. The area was suctioned clear. [Fluoroscopy revealed no evidence of pneumothorax.] The bronchoscope was then withdrawn. The patient tolerated the procedure well without evidence of desaturation or complications. Bronchoalveolar lavage samples were sent for cell count, Gram stain and bacterial culture, AFB culture and smear, fungal culture and smear, and cytology Recommendations: Follow-up culture
--- NOTE | 2021-04-26 11:49 | XRay Report ---
XR chest 1V not portable CLINICAL HISTORY: s/p bronch TECHNIQUE: Single frontal radiograph of the chest was obtained. Comparison: Comparison is made to chest one view 04/26/2021 FINDINGS: Lines and tubes are stable. Cardiomegaly is noted. Bilateral lower lung predominant airspace opacitie s are seen. Vascular prominence is again noted. Small bilateral pleural effusions. No pneumothorax. IMPRESSION: Stable exam. Vascular prominence is seen. Small bilateral pleural effusions. No evidence of pneumotho rax status post proctoscopy. ACT 112: Negative or not required by law. Electronically signed by: Tiburcio Casey M.D. 04/26/2021 11:48 AM
[2021-04-26] MEDS: PANTOprazole 40 MG in SYRINGE 0 ML IV SCH (12:03)
[2021-04-26] MEDS ORDERED: FUROSEMIDE INJ 20 MG/2 ML VIAL IV ONE (13:58)
--- NOTE | 2021-04-26 14:02 | Critical Care Progress Note ---
Date of Service April 26, 2021 Assessment & Plan (1) Multifocal pneumonia: (2) PEA (Pulseless electrical activity): (3) Acute kidney injury superimposed on chronic kidney disease: (4) Cardiac arrest: (5) Aspiration into airway: (6) Acute respiratory failure with hypoxia: (7) Septic shock: (8) Diastolic dysfunction: Plan: Reason Critically Ill: 70-year-old female with recent ureteral calculi and hydronephrosis requiring ureteral stent, presents to the ICU after being found unresponsive in severe septic shock, acute hypoxic respiratory failure, acute r enal failure. Currently mechanically ventilated on multiple vasopressors Neuro - Acute encephalopathy--> improved suspect this is secondary to severe sepsis/UTI. CT head negative. Continue with supportive care. May consider EEG if encephalopathy does not begin to clear. Cardiac - Cardiac arrest/shock Cardiac arrest status post intubation, ROSC achieved with multiple rounds of CPR and epi CT negative for PE EKG without ST elevation or depression. Troponin negative Continue with vasopressor support to keep MAP greater than 65 --> off vasopressor as of 04/25/2021 Random cortisol was 53, no need for continuous hydrocortisone 2D echo 04/23/2021: EF 35 and 40% with grade 2 diastolic dysfunction, right-sided pressure 48 mmHg Respiratory - --VDRF with acute hypoxic respiratory failure CTA chest negative for PE. Bilateral infiltrates that are consistent with pneumonia/aspiration and suspect this is the primary contributor to her profound hypoxia. BNP greater than 35,000 COVID-19 PCR negative Influenza A/B negative RSV negative Procalcitonin elevated -Continue with support with mechanical ventilation for now, trend ABGs and wean vent as tolerated -See ID treatment below --Left lower collapse S/p bronchoscopy 04/21/2021 It did not show any significant mucous plugging Did show dynamic collapse of the left lower lobe --History of EDYTA GI - --Transaminitis --> resolved With elevated INR Likely shock liver from hypotension Continue to monitor RENAL/LYTES - Acute on chronic renal failure creatinine 2.69 with prior baseline 1.11. Likely from hypotension --> improving Monitor BUN/creatinine Avoid nephrotoxic medications Strict ins and outs --S/p high anion gap metabolic acidosis Likely secondary to elevated BUN along with elevated beta hydroxybutyrate acid Salicylates as well as acetaminophen level negative - Ureteral calculi status post left ureteral nephroscopy with extraction of stone and exchange of left stent on 04/21. CT abdomen pelvis 04/22/21 shows patent left ureteral stent. Foleystrict I's and O's ENDO - DM type II Continue with ICU hypoglycemia protocol Hypothyroidcontinue Synthroid HEME - H&H stable --Thrombocytopenia Likely from sepsis induced Continue to monitor ID - Sepsis Source likely UTI Blood cultures, urine culture pending. Patient did grow pansensitive E. coli and Pseudomonas on urine culture on 04/14. Nasal MRSA negative --> got 1 dose of vancomycin 04/23/2021 Patient does have multi lobar infiltrates could be aspiration pneumonia. Continue with meropenem --Prophylaxis VTE: Heparin drip on hold GI: Protonix Lines: Right femoral, left radial, positive Joseph Diet: Tube feeds Plan: In/out: -2.4 L, urine output 4450. +7 L since coming to the hospital Chest x-ray from today shows increased vascular markings as well as retrocardiac opacity I am going to do bronchoscopy again today to see if there is mucus plugging of the left lower lobe I will give 20 mg of Lasix to the patient Later today I will see if the patient is extubated will Patient has been off vasopressors. Patient is thrombocytopenic. We will hold the heparin drip I have personally spent 36 minutes of critical care time in the direct management of this patient. This is a life/limb threatening event. This includes time spent evaluating patient, direct bedside care, chart review, placing orders, interpretation of diagnostic studies, discussion with consultants, patient, and family members, as well as other required patient management activities. This time is exclusive of all separately billable procedures, and teaching time and separate from and in addition to any other critical care service time. Admission and Anticipated Discharge Date Admission Date: April 22, 2021 Subjective Patient seen and examined at bedside. No acute distress, no events was overnight She was on pressure support of the time of examination She is opening eyes following commands. She is having secretions from the ETT Has been afebrile Urine output is good. Review of Systems Review of Systems: All systems reviewed & are unremarkable except as noted in Subjective Physical Exam Physical Exam: Constitutional: No acute distress HEENT: PERRLA, positive ETT Respiratory system: Decreased entry bilaterally, no wheeze, rhonchi, positive crackles bilateral lower lobes CVS: S1-S2 positive, no murmurs or gallops Abdomen: Soft, nontender, nondistended, positive bowel sounds x4, obese Extremities: +2 pulses bilaterally radialis/ dorsalis pedis, no cyanosis, +1 edema bilateral lower extremity Neuro: Sedated, breathing with vent, following commands Psych: Unable to assess G/U: Positive Joseph Skin: no rashes, warm and dry Lymphatic: no cervical or axillary lymphadenopathy Results & Data Results & Data ([facility]) Vital Signs (Past 12 Hours) Vital Signs Temp Pulse Resp BP Pulse Ox 04/26/21 13:00 36.7 C 78 22 112/58 L 94 04/26/21 12:00 37.1 C 81 22 111/61 92 04/26/21 11:00 37.0 C 87 22 99 04/26/21 10:00 36.7 C 88 21 88 L 04/26/21 09:00 36.7 C 83 28 H 133/65 87 L 04/26/21 08:30 36.6 C 84 19 88 L 04/26/21 08:01 82 23 92 04/26/21 08:00 36.7 C 76 16 102/58 L 92 04/26/21 07:00 36.7 C 77 22 94 04/26/21 05:00 37.3 C 78 20 109/47 L 95 04/26/21 04:00 119/47 L 04/26/21 03:24 70 22 90 04/26/21 03:00 37.3 C 69 22 90 04/26/21 02:30 37.3 C 70 22 92 04/26/21 02:00 37.2 C 71 22 92 Laboratory Results 04/26/21 04:21 04/26/21 04:21 Coding Level of Care Code Critical Care 1st 30-74 mins Diagnoses Multifocal pneumonia J18.9 PEA (Pulseless electrical activity) I46.9 Acute kidney injury superimposed on chronic kidney disease N17.9; N18.9 Cardiac arrest I46.9 Aspiration into airway T17.908A Acute respiratory failure with hypoxia J96.01 Septic shock A41.9; R65.21 Diastolic dysfunction I51.89 Time Spent (min) 36
[2021-04-26] MEDS: POTASSIUM CHLORIDE / WTR 20 MEQ/100 ML PLCT IV SCH ×2 (16:17→18:13)
--- NOTE | 2021-04-26 17:42 | Hospitalist Progress Note ---
Date of Service April 26, 2021 Assessment & Plan (1) Encephalopathy acute: (2) Septic shock: Plan: Per Dr. Perrin's notes with addendum: This is a 70yo F with a PMH of paroxysmal A Fib on coumadin, HTN, HLD, history of CVA, DM II, EDYTA (CPAP at bedtime), hypothyroidism, anemia and other medical problems listed below who was brought into ED in obtunded state. Was recently admitted to [facility] 03/10-03/13 for Proteus bacteremia from complicated UTI in the setting of obstructive uropathy Hypotensive in ED with elevated procal, lactate and WBC consistent with septic shock in setting of underlying aspiration pneumonitis/pneumonia on chest CT as well as possible UTI CT head negative for acute intracranial process CTA chest which was negative for PE but did show bilateral infiltrates consistent with aspiration pneumonitis/pneumonia CT abdomen pelvis which showed patent ureteral stent and was negative for acute process Requiring pressor support in ICU - mgmt per foot piece assembler Continue empiric meropenem and vanco - follow cultures 04/26 Status post bronchoscopy 04/24/2021 for left lower lobe collapse Status post repeat bronchoscopy 04/26/2021: Some parker secretions suctioned out Off sedation, off pressor Remains intubated Weaning trial per foot piece assembler Urine and blood cultures negative so far Mechanical ventilation management per foot piece assembler Continue cefepime CT head: Unrevealing Monitor closely (3) Cardiac arrest: Plan: Went into PEA arrest in the ED following intubation but ROSC was achieved with compressions and epinephrine Continue monitoring in ICU (4) Acute respiratory failure with hypoxia: (5) Aspiration into airway: Plan: Management per above (6) Acute kidney injury superimposed on chronic kidney disease: Plan: In setting of infection, recent uropathy. Cr 2.69 (baseline ~1.1). Creatinine improving, 1.08 Management of sepsis per above (7) S/P ureteral stent placement: Plan: S/p cystoscopy with left ureteral stent replacement 04/21/2021, by Dr. Edwards. Stent appears patent in CT abd/pelvis (8) HTN (hypertension): Plan: Hold BP meds (9) A-fib: Plan: On heparin drip (10) T2DM (type 2 diabetes mellitus): Plan: Holding home meds. Continue insulin (11) Sleep apnea: Plan: CPAP HS at home DVT Ppx: Heparin drip Code status: FULL PCP: Haim Dispo: Admitted to ICU Admission and Anticipated Discharge Date Admission Date: April 22, 2021 Subjective Follow-up for septic shock, encephalopathy, aspiration pneumonia, UTI, etc. Off sedation, remains on mechanical ventilator Opens eyes to calling her name, follows simple commands like raising her hands, drifts back to sleep easily Status post repeat bronchoscopy today, some increased secretions suctioned Not in distress, no accessory muscle use or effort when breathing No other issues per employee relations manager of Systems Review of Systems: all noted and negative except for above Physical Exam Physical Exam: General-intubated, drowsy, breathing with no effort or accessory muscle use Eyes- anicteric Neck- no JVD Lungs-mild rhonchi bilaterally anteriorly Heart- normal rate, regular rhythm; no murmurs Abdomen- normal bowel sounds, nondistended, soft, nontender Extremities-mild lower extremity edema with erythema, no calf tenderness Neuro-drowsy, moves both hands equally on command Skin- warm & dry Results & Data Results & Data ([facility]) Vital Signs (Past 12 Hours) Vital Signs Temp Pulse Resp BP Pulse Ox 04/26/21 17:00 37.2 C 81 22 114/52 L 92 04/26/21 16:00 37.2 C 92 H 26 H 142/58 H 91 04/26/21 15:00 37.2 C 93 H 24 128/64 89 L 04/26/21 14:00 37.3 C 85 24 127/84 91 04/26/21 13:00 36.7 C 78 22 112/58 L 94 04/26/21 12:00 37.1 C 81 22 111/61 92 04/26/21 11:00 37.0 C 87 22 99 04/26/21 10:00 36.7 C 88 21 88 L 04/26/21 09:00 36.7 C 83 28 H 133/65 87 L 04/26/21 08:30 36.6 C 84 19 88 L 04/26/21 08:01 82 23 92 04/26/21 08:00 36.7 C 76 16 102/58 L 92 04/26/21 07:00 36.7 C 77 22 94 all noted and reviewed including below
[2021-04-26] MEDS ORDERED: INSULIN GLARGINE SOLOSTAR 100 UNITS/ML 3 ML PEN SC SCH (21:00)
[2021-04-26] MEDS: fentaNYL citrate 2,500 MCG/250 ML BAG IV SCH (21:42)
[2021-04-27] MEDS: INSULIN ASPART PER UNIT SC SCH ×6 (00:10→21:25)
[2021-04-27] MEDS: TUBE FEEDING WATER FLUSH OG SCH ×6 (00:10→19:35)
[2021-04-27 04:25] LABS: iSTAT Art Bld Gas pCO2 Correct 41 mmHg (35-46); iSTAT Art Bld Gas pH Corrected 7.492 (7.35-7.45); iSTAT Arterial Blood Gas HCO3 31 meg/L (19-24); iSTAT Arterial Blood Gas pCO2 40 mmHg (35-46); iSTAT Arterial Blood Gas pO2 59 mmHg (80-95); iSTAT Arterial Blood Gas pO2 C 61; iSTAT Carbon Dioxide 32 mmol/L (24-31); iSTAT FiO2 50 %; iSTAT Hematocrit 25 % (37-47); iSTAT Hemoglobin 8.5 g/dl (12.0-16.0); iSTAT Site Art Line; iSTAT Sodium 143 mmol/L (135-144)
[2021-04-27 05:18] LABS: Mean Corpuscular Hgb Conc 31.4 g/dL (32-36)
[2021-04-27 05:28] LABS: Partial Thromboplastin Time 25.4 Seconds (21.0-31.0)
[2021-04-27 05:37] LABS: BUN Creatinine Ratio 32.6 (10-20); Calcium 8.2 mg/dl (8.5-10.1); Creatinine Clr Calc Pharmacy 64.3 ml/min; Est GFR (African American) 64.1 ml/min; Est GFR (Non-African American) 55.3 ml/min; Magnesium 1.9 mg/dl (1.8-2.4)
[2021-04-27 05:38] LABS: Phosphorus 2.5 mg/dl (2.5-4.9)
[2021-04-27] MEDS: fentaNYL citrate 2,500 MCG/250 ML BAG IV SCH (05:51)
[2021-04-27 06:22] LABS: Hematocrit (blood only) 28.7 % (37-47); Mean Corpuscular Hemoglobin 27.7 pg (25-34); Mean Corpuscular Volume 88.3 fL (80-100); Mean Platelet Volume 11.9 fL (7.4-10.4); Platelet Count 74 K/uL (130-400); RDW Coefficient of Variation 16.2 % (11.5-14.5); RDW Standard Deviation 52.9 fL (36.4-46.3); Red Blood Count 3.25 M/uL (4.2-5.4); White Blood Count 13.52 K/uL (4.8-10.8)
[2021-04-27 06:40] LABS: ALC (manual) 0.95 K/uL (1.2-3.4); ANC (manual) 11.51 K/uL (1.4-6.5); Eosinophils # (manual) 0.12 K/uL (0-0.5); Eosinophils % (manual) 0.9 %; Lymphocytes # (manual) 0.95 K/uL (1.2-3.4); Metamyelocytes # (manual) 0.35 K/uL (0-0); Metamyelocytes % (manual) 2.6 %; Monocytes # (manual) 0.47 K/uL (0.11-0.59); Monocytes % (manual) 3.5 %; Myelocytes # (manual) 0.12 K/uL (0-0); Myelocytes % (manual) 0.9 %; Neutrophils # (manual) 11.51 K/uL (1.4-6.5); Neutrophils % (manual) 85.1 %; Platelet Estimate Decreased (Normal); Polychromasia 1+; Toxic Granulation 1+
[2021-04-27] MEDS: ICU ELECTROLYTE REPLACEMENT PROTOCOL SCH ×2 (06:46→17:38)
[2021-04-27] MEDS: CEFEPIME 2,000 MG in SYRINGE 0 ML IV SCH ×2 (07:03→17:38)
[2021-04-27] MEDS: MAGNESIUM SULFATE / D5W 1 GM/100 ML BAG IV SCH ×2 (08:07→10:09)
[2021-04-27] MEDS: MULTI VIT W/MINERALS LIQUID 15 ML UDP NG SCH (08:16)
[2021-04-27] MEDS: prednisoLONE acetate 1% OP SUSP 5 ML BTL OPL SCH ×4 (08:16→21:26)
[2021-04-27] MEDS ORDERED: FUROSEMIDE 40 MG/4 ML VIAL IV ONE ×2 (08:40→08:43)
--- NOTE | 2021-04-27 08:40 | XRay Report ---
XR chest 1V portable CLINICAL HISTORY: Follow-up airspace opacities. COMPARISON STUDY: 04/26/2021 TECHNIQUE: 1 view of the chest FINDINGS: Single frontal view of the chest demonstrates the heart to again be enlarged with endotracheal tube i n place. Bilateral airspace opacities are again seen. There is also evidence for left lower lobe atel ectasis/collapse and probable bilateral pleural effusions. There is no evidence for vascular congesti on. There is no acute osseous pathology. IMPRESSION: Bilateral interstitial and alveolar opacities are again seen along with left lower lobe a telectasis/collapse and bilateral pleural effusions. ACT 112: Negative or not required by law. Electronically signed by: Jax Lama M.D. 04/27/2021 8:38 AM
[2021-04-27] MEDS: PANTOprazole 40 MG in SYRINGE 0 ML IV SCH (10:10)
--- NOTE | 2021-04-27 13:25 | Pharmacy Report ---
Pharmacy Glycemic Short Note 2 - Date of Service April 27, 2021 - Glycemic Short BSG Results (Last 24 hours): 04/26/21 04/26/21 04/27/21 16:02 21:39 00:07 Glucose POC Glucose 143 H 126 H 112 H 04/27/21 04/27/21 04/27/21 04:59 08:10 12:06 Glucose 122 H POC Glucose 125 H 178 H OUTPATIENT ANTIDIABETIC REGIMEN: * metformin 500mg BID, repaglinide 0.5mg TIDM * HbA1C: pending ASSESSMENT: 04/27 * Pt extubated. Tube feedings off. No plan to advance PO today * Pt required IV isnulin infusion 04/22-04/24. Transitioned to SQ basal bolus at which point she required ~ 17 units of insulin per day to maintain goal BSGs. No insulin given yesterday (Lantus held for unknown reason). BSGs still in range today but trending upwards. Will reinitiate Lantus at reduced dosing (10 units) and titrate based on BSG trends 04/24 * Insulin drip trended down significantly from a max of 13 units/hr yesterday AM to a stable 1 unit/hr since last night with BSG's ranging 120's to 140's on current drip rate. Norepi titrated down to 0.09 units/kg/hr. Anticipated start of trickle feeds after bronch today. Discussed on ICU rounds - OK to transition to basal/bolus. * Will give low-dose Lantus as drip rate is already rather low. Anticipate ability to transition off of drip later this afternoon. * Will initiate Novolog q4h at weight-based moderate stress estimate. CHO coverage in tubefeeds to start if/when rate increases above trickle. 04/23 * Pharmacy consulted to assist with glycemic management in this 70YOF who presents with septic shock s/p 2 episodes of PEA cardiac arrest following intubation yesterday afternoon. History of DM2 on oral agents at home. Patient is intubated and sedated and requiring vasopressor support. NPO, and hemodynamically unstable. Plan for regular insulin infusion given numerous stressors and variable clinical status. Insulin drip to be continued per insulin infusion adjustment calculator, as patient requiring high amount of pressor support and unpredictable SQ absorption. PLAN FOR INPATIENT GLYCEMIC CONTROL: * Hold outpatient diabetes medications * Basal insulin * Lantus 10 units SC @ x1 administered at ~1200. Re-evaluate dosing tomorrow. Likely continue 10 units SQ Daily. * Bolus insulin * NovoLog per scale q4h * Goal Range: Low 120 mg/dL - High 160 mg/dL * Correction factor: 20 mg/dL/unit * CHO ratio: 6 g CHO/unit PLAN FOR DISCHARGE: * Resume home regimen, assuming no contraindications at discharge
[2021-04-27] MEDS: INSULIN GLARGINE SOLOSTAR 100 UNITS/ML 3 ML PEN SC SCH (13:27)
--- NOTE | 2021-04-27 15:30 | Critical Care Progress Note ---
Date of Service April 27, 2021 Assessment & Plan (1) Multifocal pneumonia: (2) PEA (Pulseless electrical activity): (3) Acute kidney injury superimposed on chronic kidney disease: (4) Cardiac arrest: (5) Aspiration into airway: (6) Acute respiratory failure with hypoxia: (7) Septic shock: (8) Diastolic dysfunction: Plan: Reason Critically Ill: 70-year-old female with recent ureteral calculi and hydronephrosis requiring ureteral stent, presents to the ICU after being found unresponsive in severe septic shock, acute hypoxic respiratory failure, acute r enal failure. Currently mechanically ventilated on multiple vasopressors Neuro - Acute encephalopathy--> improved suspect this is secondary to severe sepsis/UTI. CT head negative. Continue with supportive care. May consider EEG if encephalopathy does not begin to clear. Cardiac - Cardiac arrest/shock Cardiac arrest status post intubation, ROSC achieved with multiple rounds of CPR and epi CT negative for PE EKG without ST elevation or depression. Troponin negative Continue with vasopressor support to keep MAP greater than 65 --> off vasopressor as of 04/25/2021 Random cortisol was 53, no need for continuous hydrocortisone 2D echo 04/23/2021: EF 35 and 40% with grade 2 diastolic dysfunction, right-sided pressure 48 mmHg Respiratory - --VDRF with acute hypoxic respiratory failure CTA chest negative for PE. Bilateral infiltrates that are consistent with pneumonia/aspiration and suspect this is the primary contributor to her profound hypoxia. BNP greater than 35,000 COVID-19 PCR negative Influenza A/B negative RSV negative Procalcitonin elevated -Continue with support with mechanical ventilation for now, trend ABGs and wean vent as tolerated -See ID treatment below --Left lower collapse S/p bronchoscopy 04/21/2021 It did not show any significant mucous plugging Did show dynamic collapse of the left lower lobe Bronchoscopy growing Lida which is most likely colonizer no need to treat. --History of EDYTA GI - --Transaminitis --> resolved With elevated INR Likely shock liver from hypotension Continue to monitor RENAL/LYTES - Acute on chronic renal failure creatinine 2.69 with prior baseline 1.11. Likely from hypotension --> improving Monitor BUN/creatinine Avoid nephrotoxic medications Strict ins and outs --S/p high anion gap metabolic acidosis Likely secondary to elevated BUN along with elevated beta hydroxybutyrate acid Salicylates as well as acetaminophen level negative - Ureteral calculi status post left ureteral nephroscopy with extraction of stone and exchange of left stent on 04/21. CT abdomen pelvis 04/22/21 shows patent left ureteral stent. Foleystrict I's and O's Urine culture growing Lida which is a colonizer, no need to treat ENDO - DM type II Continue with ICU hypoglycemia protocol Hypothyroidcontinue Synthroid HEME - H&H stable --Thrombocytopenia Likely from sepsis induced Continue to monitor ID - Sepsis Source likely UTI Blood cultures, urine culture pending. Patient did grow pansensitive E. coli and Pseudomonas on urine culture on 04/14. Nasal MRSA negative --> got 1 dose of vancomycin 04/23/2021 Urine culture growing Lida which is a colonizer, no need to treat Bronchial to growing Lida, no indication to treat --Prophylaxis VTE: Heparin drip on hold GI: Protonix Lines: Right femoral, left radial DC'd 04/27/2021 positive Joseph Diet: Tube feeds Plan: In/out: -2 L, urine output 2650 Chest x-ray from today still shows bilateral pulmonary opacities. 40 mg of Lasix given today. Patient is still thrombocytopenic. We will continue to hold heparin. If tomorrow patient platelet stable will resume heparin. SBT for trial of extubation Arterial line DC'd We will try to get the peripherals and remove the right femoral line as well. I have personally spent 35 minutes of critical care time in the direct management of this patient. This is a life/limb threatening event. This includes time spent evaluating patient, direct bedside care, chart review, placing orders, interpretation of diagnostic studies, discussion with consultants, patient, and family members, as well as other required patient management activities. This time is exclusive of all separately billable procedures, and teaching time and separate from and in addition to any other critical care service time. Admission and Anticipated Discharge Date Admission Date: April 22, 2021 Subjective Patient seen and examined at bedside. No acute distress, no adverse events overnight Patient was put on pressure support at the time of examination She denies any headache, no more chest pain She is moving all extremities and following commands. Review of Systems Review of Systems: All systems reviewed & are unremarkable except as noted in Subjective Physical Exam Physical Exam: Constitutional: No acute distress HEENT: PERRLA, positive ETT Respiratory system: Decreased entry bilaterally, no wheeze, rhonchi, positive crackles bilateral lower lobes CVS: S1-S2 positive, no murmurs or gallops Abdomen: Soft, nontender, nondistended, positive bowel sounds x4, obese Extremities: +2 pulses bilaterally radialis/ dorsalis pedis, no cyanosis, +1 edema bilateral lower extremity, third toe distal aspect cyanotic (has been since coming to the hospital) Neuro: Sedated, breathing with vent, following commands Psych: Unable to assess G/U: Positive Joseph Skin: no rashes, warm and dry Lymphatic: no cervical or axillary lymphadenopathy Results & Data Results & Data ([facility]) Vital Signs (Past 12 Hours) Vital Signs Temp Pulse Resp BP Pulse Ox 04/27/21 14:00 37.0 C 79 21 92/38 L 96 04/27/21 13:00 37.0 C 79 21 124/53 L 96 04/27/21 12:09 87 21 97 04/27/21 12:00 37.2 C 84 19 132/73 97 04/27/21 11:00 37.3 C 81 18 145/68 H 97 04/27/21 10:00 37.3 C 82 19 120/73 96 04/27/21 09:40 88 20 94 04/27/21 09:00 37.2 C 79 19 93 04/27/21 08:21 94 H 28 H 94 04/27/21 08:00 37.1 C 89 25 H 172/61 H 88 L 04/27/21 07:00 37.1 C 78 24 93 04/27/21 06:00 37.3 C 66 22 94 04/27/21 05:00 37.4 C 73 22 89 L 04/27/21 04:00 37.5 C 69 22 109/44 L 91 Laboratory Results 04/27/21 04:59 04/27/21 04:59 Coding Level of Care Code Critical Care 1st 30-74 mins Diagnoses Multifocal pneumonia J18.9 PEA (Pulseless electrical activity) I46.9 Acute kidney injury superimposed on chronic kidney disease N17.9; N18.9 Cardiac arrest I46.9 Aspiration into airway T17.908A Acute respiratory failure with hypoxia J96.01 Septic shock A41.9; R65.21 Diastolic dysfunction I51.89 Time Spent (min) 35
--- NOTE | 2021-04-27 17:53 | Hospitalist Progress Note ---
Date of Service April 27, 2021 Assessment & Plan (1) Encephalopathy acute: (2) Septic shock: Plan: Per Dr. Perrin's notes with addendum: This is a 70yo F with a PMH of paroxysmal A Fib on coumadin, HTN, HLD, history of CVA, DM II, EDYTA (CPAP at bedtime), hypothyroidism, anemia and other medical problems listed below who was brought into ED in obtunded state. Was recently admitted to [facility] 03/10-03/13 for Proteus bacteremia from complicated UTI in the setting of obstructive uropathy Hypotensive in ED with elevated procal, lactate and WBC consistent with septic shock in setting of underlying aspiration pneumonitis/pneumonia on chest CT as well as possible UTI CT head negative for acute intracranial process CTA chest which was negative for PE but did show bilateral infiltrates consistent with aspiration pneumonitis/pneumonia CT abdomen pelvis which showed patent ureteral stent and was negative for acute process Requiring pressor support in ICU - mgmt per insurance verification clerk Continue empiric meropenem and vanco - follow cultures 04/26 Status post bronchoscopy 04/24/2021 for left lower lobe collapse Status post repeat bronchoscopy 04/26/2021: Some parker secretions suctioned out 04/27 Off sedation, off pressor Extubated today On 5 L of oxygen via nasal cannula Urine and blood cultures negative so far Bronchial wash cultures: Lida Continue cefepime CT head: Unrevealing Monitor closely PT and OT evaluation (3) Cardiac arrest: Plan: Went into PEA arrest in the ED following intubation but ROSC was achieved with compressions and epinephrine Continue monitoring in ICU (4) Acute respiratory failure with hypoxia: (5) Aspiration into airway: Plan: Management per above (6) Acute kidney injury superimposed on chronic kidney disease: Plan: In setting of infection, recent uropathy. Cr 2.69 (baseline ~1.1). Creatinine improved ., back to baseline Management of sepsis per above (7) S/P ureteral stent placement: Plan: S/p cystoscopy with left ureteral stent replacement 04/21/2021, by Dr. Edwards. Stent appears patent in CT abd/pelvis (8) HTN (hypertension): Plan: Hold BP meds (9) A-fib: Plan: Heparin held today in light of anemia (10) T2DM (type 2 diabetes mellitus): Plan: Holding home meds. Continue insulin (11) Sleep apnea: Plan: CPAP HS at home DVT Ppx: Heparin drip Code status: FULL PCP: Haim Dispo: Admitted to ICU Admission and Anticipated Discharge Date Admission Date: April 22, 2021 Subjective ff up for septic shock, encephalopathy, pneumonia, etc. Extubated today Seen sitting up in bedside chair, on 5 L of oxygen, not in distress, appears weak but awake, follows commands Daughter Tanja at the bedside visiting Patient nods/shakes her head to questions Denies shortness of breath or pain Tolerating ice chips No other symptoms Review of Systems Review of Systems: all noted and negative except for above Physical Exam Physical Exam: General- oriented x 2, not in distress, speaks in sentences with no effort or accessory muscle use Eyes- anicteric Neck- no JVD Lungs-mild rhonchi anteriorly No wheezing Heart- normal rate, regular rhythm; no murmurs Abdomen- normal bowel sounds, nondistended, soft, nontender Extremities-trace lower leg edema, mild erythema in the lower leg, no calf tenderness Neuro- alert, oriented x2; no gross focal neurologic deficits Skin- warm & dry Results & Data Results & Data ([facility]) Vital Signs (Past 12 Hours) Vital Signs Temp Pulse Resp BP Pulse Ox 04/27/21 17:00 37.2 C 83 19 91/72 L 98 04/27/21 16:34 111/45 L 04/27/21 16:00 37.3 C 78 21 88/32 L 97 04/27/21 15:00 37.3 C 83 19 120/44 L 98 04/27/21 14:00 37.0 C 79 21 92/38 L 96 04/27/21 13:00 37.0 C 79 21 124/53 L 96 04/27/21 12:09 87 21 97 04/27/21 12:00 37.2 C 84 19 132/73 97 04/27/21 11:00 37.3 C 81 18 145/68 H 97 04/27/21 10:00 37.3 C 82 19 120/73 96 04/27/21 09:40 88 20 94 04/27/21 09:00 37.2 C 79 19 93 04/27/21 08:21 94 H 28 H 94 04/27/21 08:00 37.1 C 89 25 H 172/61 H 88 L 04/27/21 07:00 37.1 C 78 24 93 04/27/21 06:00 37.3 C 66 22 94 all noted and reviewed including below
[2021-04-28] MEDS: TUBE FEEDING WATER FLUSH OG SCH ×3 (00:19→08:00)
[2021-04-28] MEDS: INSULIN ASPART PER UNIT SC SCH ×6 (00:28→22:32)
[2021-04-28 05:56] LABS: BUN Creatinine Ratio 30.8 (10-20); Calcium 8.7 mg/dl (8.5-10.1); Creatinine Clr Calc Pharmacy 71.8 ml/min; Est GFR (African American) 72.6 ml/min; Est GFR (Non-African American) 62.6 ml/min; Phosphorus 2.5 mg/dl (2.5-4.9); Potassium 3.7 mmol/L (3.5-5.1)
[2021-04-28 06:33] LABS: Hematocrit (blood only) 30.3 % (37-47); Hemoglobin 9.3 g/dL (12.0-16.0); Mean Corpuscular Hemoglobin 27.2 pg (25-34); Mean Corpuscular Hgb Conc 30.7 g/dL (32-36); Mean Corpuscular Volume 88.6 fL (80-100); Mean Platelet Volume 11.7 fL (7.4-10.4); Platelet Count 87 K/uL (130-400); RDW Coefficient of Variation 16.2 % (11.5-14.5); RDW Standard Deviation 52.7 fL (36.4-46.3); Red Blood Count 3.42 M/uL (4.2-5.4); White Blood Count 12.79 K/uL (4.8-10.8)
[2021-04-28 06:36] LABS: Platelet Estimate Decreased (Normal); RBC Morphology Unremarkable
[2021-04-28 07:02] LABS: ALC (manual) 1.02 K/uL (1.2-3.4); ANC (manual) 10.62 K/uL (1.4-6.5); Eosinophils # (manual) 0.26 K/uL (0-0.5); Lymphocytes # (manual) 1.02 K/uL (1.2-3.4); Monocytes # (manual) 0.64 K/uL (0.11-0.59); Myelocytes # (manual) 0.26 K/uL (0-0); Neutrophils # (manual) 10.62 K/uL (1.4-6.5)
[2021-04-28] MEDS: ICU ELECTROLYTE REPLACEMENT PROTOCOL SCH ×2 (07:04→20:59)
[2021-04-28] MEDS: CEFEPIME 2,000 MG in SYRINGE 0 ML IV SCH ×2 (07:11→22:32)
--- NOTE | 2021-04-28 07:25 | XRay Report ---
XR chest 1V portable CLINICAL HISTORY: f/u COMPARISON STUDY: Chest CT April 22, 2021. Chest radiograph April 27, 2021. FINDINGS: The endotracheal and nasogastric tubes have been removed. No pneumothorax is noted. There m ay be small bilateral pleural fusions. Bibasilar consolidation persists. There are additional airspac e opacities within the lungs with interstitial thickening. Cardiomegaly is again noted. Right hilar p rominence is unchanged and due to pulmonary vessels. IMPRESSION: 1. Persistent dense bibasilar consolidation and airspace opacities within the remainder of the lungs suggestive of multifocal pneumonia. 2. Interstitial thickening which may reflect superimposed pulmonary edema. ACT 112: Negative or not required by law. Electronically signed by: Gui Berumen M.D. 04/28/2021 7:23 AM
[2021-04-28 07:34] LABS: iSTAT Allen Test Pass; iSTAT Art Bld Gas pCO2 Correct 47 mmHg (35-46); iSTAT Art Bld Gas pH Corrected 7.448 (7.35-7.45); iSTAT Arterial Blood Gas HCO3 33 meg/L (19-24); iSTAT Arterial Blood Gas pCO2 48 mmHg (35-46); iSTAT Arterial Blood Gas pH 7.44 (7.35-7.45); iSTAT Arterial Blood Gas pO2 65 mmHg (80-95); iSTAT Arterial Blood Gas pO2 C 63; iSTAT Carbon Dioxide 34 mmol/L (24-31); iSTAT Hematocrit 25 % (37-47); iSTAT Hemoglobin 8.5 g/dl (12.0-16.0); iSTAT Potassium 3.6 mmol/L (3.3-5.0); iSTAT Site R Radial; iSTAT Sodium 142 mmol/L (135-144)
[2021-04-28] MEDS: MULTI VIT W/MINERALS LIQUID 15 ML UDP NG SCH (08:00)
[2021-04-28] MEDS: INSULIN GLARGINE SOLOSTAR 100 UNITS/ML 3 ML PEN SC SCH (08:01)
--- NOTE | 2021-04-28 08:38 | Critical Care Progress Note ---
Date of Service April 28, 2021 Assessment & Plan (1) Multifocal pneumonia: (2) PEA (Pulseless electrical activity): (3) Acute kidney injury superimposed on chronic kidney disease: (4) Cardiac arrest: (5) Aspiration into airway: (6) Acute respiratory failure with hypoxia: (7) Septic shock: (8) Diastolic dysfunction: Plan: Reason Critically Ill: 70-year-old female with recent ureteral calculi and hydronephrosis requiring ureteral stent, presents to the ICU after being found unresponsive in severe septic shock, acute hypoxic respiratory failure, acute renal failure. Currently mechanically ventilated on multiple vasopressors Neuro - Acute encephalopathy--> improved suspect this is secondary to severe sepsis/UTI. CT head negative. Continue with supportive care. May consider EEG if encephalopathy does not begin to clear. Cardiac - Cardiac arrest/shock Cardiac arrest status post intubation, ROSC achieved with multiple rounds of CPR and epi CT negative for PE EKG without ST elevation or depression. Troponin negative Continue with vasopressor support to keep MAP greater than 65 --> off vasopressor as of 04/25/2021 Random cortisol was 53, no need for continuous hydrocortisone 2D echo 04/23/2021: EF 35 and 40% with grade 2 diastolic dysfunction, right- sided pressure 48 mmHg Respiratory - --VDRF with acute hypoxic respiratory failure CTA chest negative for PE. Bilateral infiltrates that are consistent with pneumonia/aspiration and suspect this is the primary contributor to her profound hypoxia. BNP greater than 35,000 COVID-19 PCR negative Influenza A/B negative RSV negative Procalcitonin elevated -Continue with support with mechanical ventilation for now, trend ABGs and wean vent as tolerated -See ID treatment below --Left lower collapse S/p bronchoscopy 04/21/2021 It did not show any significant mucous plugging Did show dynamic collapse of the left lower lobe Bronchoscopy growing Lida which is most likely colonizer no need to treat. --History of EDYTA GI - --Transaminitis --> resolved With elevated INR Likely shock liver from hypotension Continue to monitor RENAL/LYTES - Acute on chronic renal failure creatinine 2.69 with prior baseline 1.11. Likely from hypotension --> improving Monitor BUN/creatinine Avoid nephrotoxic medications Strict ins and outs --S/p high anion gap metabolic acidosis Likely secondary to elevated BUN along with elevated beta hydroxybutyrate acid Salicylates as well as acetaminophen level negative - Ureteral calculi status post left ureteral nephroscopy with extraction of stone and exchange of left stent on 04/21. CT abdomen pelvis 04/22/21 shows patent left ureteral stent. Foleystrict I's and O's Urine culture growing Lida which is a colonizer, no need to treat ENDO - DM type II Continue with ICU hypoglycemia protocol Hypothyroidcontinue Synthroid HEME - H&H stable --Thrombocytopenia Likely from sepsis induced Continue to monitor ID - Sepsis Source likely UTI Blood cultures, urine culture pending. Patient did grow pansensitive E. coli and Pseudomonas on urine culture on 04/14. Nasal MRSA negative --> got 1 dose of vancomycin 04/23/2021 Urine culture growing Lida which is a colonizer, no need to treat Bronchial to growing Lida, no indication to treat --Prophylaxis VTE: lovenox GI: Protonix Lines: Right femoral, left radial DC'd 04/27/2021 positive Joseph Diet: speech to see Admission and Anticipated Discharge Date Admission Date: April 22, 2021 Subjective overnight had episode of shortness of breath Physical Exam Physical Exam: General: Alert. nontoxic. Skin: Warm, dry, Head: Atraumatic Ears, nose, mouth and throat: airway patent Cardiovascular: Normal peripheral perfusion Respiratory: no respiratory distress Gastrointestinal: Non distended Musculoskeletal: No deformity Results & Data Results & Data ([facility]) Vital Signs (Past 12 Hours) Vital Signs Temp Pulse Resp BP Pulse Ox 04/28/21 08:00 36.8 C 81 21 166/84 H 91 04/28/21 07:30 36.9 C 76 21 90 04/28/21 07:00 36.9 C 75 22 121/98 95 04/28/21 06:34 37.3 C 04/28/21 06:00 37.3 C 70 22 88/39 L 96 04/28/21 05:00 37.2 C 70 19 85/30 L 96 04/28/21 04:00 37.3 C 72 20 85/35 L 96 04/28/21 03:39 102 H 18 96 04/28/21 03:00 37.3 C 73 18 90/29 L 96 04/28/21 02:00 37.3 C 74 16 97/30 L 95 04/28/21 01:00 37.4 C 75 18 105/33 L 96 04/28/21 00:00 37.4 C 73 22 71/27 L 94 04/27/21 23:00 37.4 C 80 22 93/31 L 95 04/27/21 22:30 80 22 97 04/27/21 22:00 37.4 C 83 24 117/38 L 96 04/27/21 21:00 37.4 C 84 26 H 126/50 L 94 Laboratory Results 04/28/21 04/28/21 04/28/21 Range/Units 07:21 07:21 04:40 WBC 12.79 H (4.8-10.8) K/uL RBC 3.42 L (4.2-5.4) M/uL Hgb 9.3 L (12.0-16.0) g/dL POC Hgb 8.5 L (12.0-16.0) g/dl Hct 30.3 L (37-47) % POC Hct 25 L (37-47) % MCV 88.6 (80-100) fL MCH 27.2 (25-34) pg MCHC 30.7 L (32-36) g/dL RDW Std Deviation 52.7 H (36.4-46.3) fL RDW Coeff of Yvette 16.2 H (11.5-14.5) % Plt Count 87 L (130-400) K/uL MPV 11.7 H (7.4-10.4) fL Neutrophils % (Manual) 83.0 % Lymphocytes % (Manual) 8.0 % Monocytes % (Manual) 5.0 % Eosinophils % (Manual) 2.0 % Myelocytes % (Man) 2.0 % Neutrophils # (Manual) 10.62 H (1.4-6.5) K/uL Total Absolute Neuts 10.62 H (1.4-6.5) K/uL Lymphocytes # (Manual) 1.02 L (1.2-3.4) K/uL Total Abs Lymphocytes 1.02 L (1.2-3.4) K/uL Monocytes # (Manual) 0.64 H (0.11-0.59) K/uL Eosinophils # (Manual) 0.26 (0-0.5) K/uL Myelocytes # (Manual) 0.26 H (0-0) K/uL Platelet Estimate Decreased L (Normal) RBC Morphology Unremarkable Sample Site R Radial POC pH 7.44 (7.35-7.45) POC pCO2 48 H (35-46) mmHg POC pO2 65 L (80-95) mmHg POC HCO3 33 H (19-24) lien/L POC Total CO2 34 H (24-31) mmol/L POC Base Excess 8.0 H (-9-1.8) lien/L ABG pH (Temp Correct) 7.448 (7.35-7.45) ABG pCO2 (Temp Corrct 47 H (35-46) mmHg POC ABG pO2 at Pt Temp 63 POC ABG O2 Sat 93.0 (90-95) % Damon Test Pass O2 Delivery Device Cannula POC Sodium 142 (135-144) mmol/L Sodium (136-145) mmol/L POC Potassium 3.6 (3.3-5.0) mmol/L Potassium (3.5-5.1) mmol/L Chloride (98-107) mmol/L Carbon Dioxide (21-32) mmol/L Anion Gap (3-11) BUN (7-18) mg/dl Creatinine (0.6-1.2) mg/dl Est Cr Clr Drug Dosing ml/min Est GFR ( Amer) ml/min Est GFR (Non-Af Amer) ml/min BUN/Creatinine Ratio (10-20) Glucose (70-99) mg/dl POC Glucose 111 H (70-99) mg/dl Calcium (8.5-10.1) mg/dl Phosphorus (2.5-4.9) mg/dl Magnesium (1.8-2.4) mg/dl 04/28/21 04/28/21 04/27/21 Range/Units 04:40 00:07 21:22 WBC (4.8-10.8) K/uL RBC (4.2-5.4) M/uL Hgb (12.0-16.0) g/dL POC Hgb (12.0-16.0) g/dl Hct (37-47) % POC Hct (37-47) % MCV (80-100) fL MCH (25-34) pg MCHC (32-36) g/dL RDW Std Deviation (36.4-46.3) fL RDW Coeff of Yvette (11.5-14.5) % Plt Count (130-400) K/uL MPV (7.4-10.4) fL Neutrophils % (Manual) % Lymphocytes % (Manual) % Monocytes % (Manual) % Eosinophils % (Manual) % Myelocytes % (Man) % Neutrophils # (Manual) (1.4-6.5) K/uL Total Absolute Neuts (1.4-6.5) K/uL Lymphocytes # (Manual) (1.2-3.4) K/uL Total Abs Lymphocytes (1.2-3.4) K/uL Monocytes # (Manual) (0.11-0.59) K/uL Eosinophils # (Manual) (0-0.5) K/uL Myelocytes # (Manual) (0-0) K/uL Platelet Estimate (Normal) RBC Morphology Sample Site POC pH (7.35-7.45) POC pCO2 (35-46) mmHg POC pO2 (80-95) mmHg POC HCO3 (19-24) lien/L POC Total CO2 (24-31) mmol/L POC Base Excess (-9-1.8) lien/L ABG pH (Temp Correct) (7.35-7.45) ABG pCO2 (Temp Corrct (35-46) mmHg POC ABG pO2 at Pt Temp POC ABG O2 Sat (90-95) % Damon Test O2 Delivery Device POC Sodium (135-144) mmol/L Sodium 142 (136-145) mmol/L POC Potassium (3.3-5.0) mmol/L Potassium 3.7 (3.5-5.1) mmol/L Chloride 106 (98-107) mmol/L Carbon Dioxide 31 (21-32) mmol/L Anion Gap 5.0 (3-11) BUN 28 H (7-18) mg/dl Creatinine 0.92 (0.6-1.2) mg/dl Est Cr Clr Drug Dosing 71.8 ml/min Est GFR ( Amer) 72.6 ml/min Est GFR (Non-Af Amer) 62.6 ml/min BUN/Creatinine Ratio 30.8 H (10-20) Glucose 102 H (70-99) mg/dl POC Glucose 105 H 129 H (70-99) mg/dl Calcium 8.7 (8.5-10.1) mg/dl Phosphorus 2.5 (2.5-4.9) mg/dl Magnesium 2.0 (1.8-2.4) mg/dl 04/27/21 04/27/21 Range/Units 16:17 12:06 WBC (4.8-10.8) K/uL RBC (4.2-5.4) M/uL Hgb (12.0-16.0) g/dL POC Hgb (12.0-16.0) g/dl Hct (37-47) % POC Hct (37-47) % MCV (80-100) fL MCH (25-34) pg MCHC (32-36) g/dL RDW Std Deviation (36.4-46.3) fL RDW Coeff of Yvette (11.5-14.5) % Plt Count (130-400) K/uL MPV (7.4-10.4) fL Neutrophils % (Manual) % Lymphocytes % (Manual) % Monocytes % (Manual) % Eosinophils % (Manual) % Myelocytes % (Man) % Neutrophils # (Manual) (1.4-6.5) K/uL Total Absolute Neuts (1.4-6.5) K/uL Lymphocytes # (Manual) (1.2-3.4) K/uL Total Abs Lymphocytes (1.2-3.4) K/uL Monocytes # (Manual) (0.11-0.59) K/uL Eosinophils # (Manual) (0-0.5) K/uL Myelocytes # (Manual) (0-0) K/uL Platelet Estimate (Normal) RBC Morphology Sample Site POC pH (7.35-7.45) POC pCO2 (35-46) mmHg POC pO2 (80-95) mmHg POC HCO3 (19-24) lien/L POC Total CO2 (24-31) mmol/L POC Base Excess (-9-1.8) lien/L ABG pH (Temp Correct) (7.35-7.45) ABG pCO2 (Temp Corrct (35-46) mmHg POC ABG pO2 at Pt Temp POC ABG O2 Sat (90-95) % Damon Test O2 Delivery Device POC Sodium (135-144) mmol/L Sodium (136-145) mmol/L POC Potassium (3.3-5.0) mmol/L Potassium (3.5-5.1) mmol/L Chloride (98-107) mmol/L Carbon Dioxide (21-32) mmol/L Anion Gap (3-11) BUN (7-18) mg/dl Creatinine (0.6-1.2) mg/dl Est Cr Clr Drug Dosing ml/min Est GFR ( Amer) ml/min Est GFR (Non-Af Amer) ml/min BUN/Creatinine Ratio (10-20) Glucose (70-99) mg/dl POC Glucose 134 H 178 H (70-99) mg/dl Calcium (8.5-10.1) mg/dl Phosphorus (2.5-4.9) mg/dl Magnesium (1.8-2.4) mg/dl Coding Level of Care Code 02842 Subseq Hosp Care Lvl 3 Diagnoses Multifocal pneumonia J18.9 PEA (Pulseless electrical activity) I46.9 Acute kidney injury superimposed on chronic kidney disease N17.9; N18.9 Cardiac arrest I46.9 Aspiration into airway T17.908A Acute respiratory failure with hypoxia J96.01 Septic shock A41.9; R65.21 Diastolic dysfunction I51.89
[2021-04-28] MEDS: prednisoLONE acetate 1% OP SUSP 5 ML BTL OPL SCH (08:52)
[2021-04-28] MEDS: ENOXAPARIN INJ 40 MG/0.4 ML SYR SQ SCH (11:51)
[2021-04-29 05:15] LABS: Basophils # (auto) 0.03 K/uL (0-0.2); Basophils % (auto) 0.3 %; Eosinophils # (auto) 0.27 K/uL (0-0.5); Eosinophils % (auto) 2.5 %; Hematocrit (blood only) 31.2 % (37-47); Hemoglobin 9.8 g/dL (12.0-16.0); Immature Granulocytes # (auto) 0.43 K/uL (0.00-0.02); Immature Granulocytes % (auto) 4.1 %; Lymphocytes # (auto) 1.23 K/uL (1.2-3.4); Lymphocytes % (auto) 11.6 %; Mean Corpuscular Hemoglobin 27.8 pg (25-34); Mean Corpuscular Hgb Conc 31.4 g/dL (32-36); Mean Corpuscular Volume 88.4 fL (80-100); Mean Platelet Volume 11.7 fL (7.4-10.4); Monocytes # (auto) 0.99 K/uL (0.11-0.59); Monocytes % (auto) 9.3 %; Neutrophils # (auto) 7.66 K/uL (1.4-6.5); Neutrophils % (auto) 72.2 %; Platelet Count 127 K/uL (130-400); Red Blood Count 3.53 M/uL (4.2-5.4); White Blood Count 10.61 K/uL (4.8-10.8)
[2021-04-29] MEDS: CEFEPIME 2,000 MG in SYRINGE 0 ML IV SCH ×2 (05:48→17:03)
[2021-04-29 05:50] LABS: BUN Creatinine Ratio 27.2 (10-20); Calcium 8.7 mg/dl (8.5-10.1); Creatinine Clr Calc Pharmacy 79.1 ml/min; Est GFR (African American) 82.2 ml/min; Est GFR (Non-African American) 70.9 ml/min; Magnesium 2.1 mg/dl (1.8-2.4); Potassium 3.8 mmol/L (3.5-5.1)
[2021-04-29 05:51] LABS: Phosphorus 2.6 mg/dl (2.5-4.9)
[2021-04-29] MEDS: ICU ELECTROLYTE REPLACEMENT PROTOCOL SCH ×2 (06:19→16:44)
[2021-04-29] MEDS: ENOXAPARIN INJ 40 MG/0.4 ML SYR SQ SCH (07:55)
[2021-04-29] MEDS: INSULIN ASPART PER UNIT SC SCH ×4 (07:55→20:37)
[2021-04-29] MEDS: INSULIN GLARGINE SOLOSTAR 100 UNITS/ML 3 ML PEN SC SCH (07:55)
[2021-04-29] MEDS: BUMETANIDE 1 MG TAB PO SCH (11:13)
--- NOTE | 2021-04-29 12:31 | Pharmacy Report ---
Pharmacy Glycemic Short Note 2 - Date of Service April 29, 2021 - Glycemic Short BSG Results (Last 24 hours): 04/28/21 04/28/21 04/29/21 16:09 21:23 04:40 Glucose 78 POC Glucose 97 64 L* 04/29/21 04/29/21 07:16 11:11 Glucose POC Glucose 77 75 OUTPATIENT ANTIDIABETIC REGIMEN: * metformin 500mg BID, repaglinide 0.5mg TIDM * HbA1C: 6.5% 04/24/21 ASSESSMENT: 04/29 * BSGs fairly well controlled over last 24 hours with the exception of mild hypoglycemia noted at HS. Will reduce Novolog prandial and correctional doses. Will also reduced basal insulin dose due to fasting BSG 77 this AM. PLAN FOR INPATIENT GLYCEMIC CONTROL: * Hold outpatient diabetes medications (Prandin, Metformin) * Basal insulin * Lantus 8 units Q AM * Bolus insulin * NovoLog per scale q4h * Goal Range: Low 120 mg/dL - High 180 mg/dL * Correction factor: 20 mg/dL/unit * CHO ratio: 8 g CHO/unit PLAN FOR DISCHARGE: * Resume home regimen, assuming no contraindications at discharge
[2021-04-29] MEDS: lisinopril 10 MG TAB PO SCH (17:01)
[2021-04-29] MEDS: amLODIPine BESYLATE 5 MG TAB PO SCH (17:01)
[2021-04-29] MEDS: LEVOTHYROXINE SODIUM 112 MCG TABLET PO SCH (17:01)
[2021-04-29] MEDS: METOPROLOL TARTRATE 50 MG TAB PO SCH (20:54)
[2021-04-29] MEDS: allopurinoL 100 MG TAB PO SCH (20:54)
[2021-04-29] MEDS: TAMSULOSIN HCL 0.4 MG CAP PO SCH (20:54)
[2021-04-29] MEDS: ROSUVASTATIN CALCIUM 10 MG TAB PO SCH (20:54)
[2021-04-29] MEDS ORDERED: hydrALAZINE HCL 20 MG/ML VIAL IV PRN (21:15)
--- NOTE | 2021-04-29 21:15 | Hospitalist Progress Note ---
Date of Service April 29, 2021 Late entry Date of service 04/28/2021 Assessment & Plan (1) Encephalopathy acute: (2) Septic shock: Plan: Per Dr. Perrin's notes with addendum: This is a 70yo F with a PMH of paroxysmal A Fib on coumadin, HTN, HLD, history of CVA, DM II, EDYTA (CPAP at bedtime), hypothyroidism, anemia and other medical problems listed below who was brought into ED in obtunded state. Was recently admitted to [facility] 03/10-03/13 for Proteus bacteremia from complicated UTI in the setting of obstructive uropathy Hypotensive in ED with elevated procal, lactate and WBC consistent with septic shock in setting of underlying aspiration pneumonitis/pneumonia on chest CT as well as possible UTI CT head negative for acute intracranial process CTA chest which was negative for PE but did show bilateral infiltrates consistent with aspiration pneumonitis/pneumonia CT abdomen pelvis which showed patent ureteral stent and was negative for acute process Requiring pressor support in ICU - mgmt per professional poker player Continue empiric meropenem and vanco - follow cultures 04/26 Status post bronchoscopy 04/24/2021 for left lower lobe collapse Status post repeat bronchoscopy 04/26/2021: Some parker secretions suctioned out 04/27 Off sedation, pressor, status post extubation 04/28 On 3 L of oxygen via nasal cannula More oriented, answers my questions appropriately Not in respiratory distress Urine and blood cultures negative so far Bronchial wash cultures: Lida Continue cefepime Chest percussion therapy PT and OT evaluation (3) Cardiac arrest: Plan: Went into PEA arrest in the ED following intubation but ROSC was achieved with compressions and epinephrine (4) Acute respiratory failure with hypoxia: (5) Aspiration into airway: Plan: Management per above (6) Acute kidney injury superimposed on chronic kidney disease: Plan: In setting of infection, recent uropathy. Cr 2.69 (baseline ~1.1). Creatinine improved ., back to baseline Management of sepsis per above (7) S/P ureteral stent placement: Plan: S/p cystoscopy with left ureteral stent replacement 04/21/2021, by Dr. Edwards. Stent appears patent in CT abd/pelvis (8) HTN (hypertension): Plan: BP meds on hold (9) A-fib: Plan: Heparin held in light of anemia (10) T2DM (type 2 diabetes mellitus): Plan: Holding home meds. Continue insulin (11) Sleep apnea: Plan: CPAP HS at home DVT Ppx: Heparin drip Code status: FULL PCP: Haim Dispo: Admitted to ICU Admission and Anticipated Discharge Date Admission Date: April 22, 2021 Subjective Follow-up for follow-up for septic shock, encephalopathy, aspiration pneumonia, status post cardiorespiratory arrest, etc. Seen resting in bed, sleeping but easily awakened More oriented, answers questions appropriately States she has some dyspnea, but on 2 L of oxygen, not in distress Has occasional cough No pain No nausea vomiting N.p.o. for now until FEES study in the morning No other symptoms Review of Systems Review of Systems: all noted and negative except for above Physical Exam Physical Exam: General- oriented x 2, not in distress, speaks in sentences with no effort or accessory muscle use Eyes- anicteric Neck- no JVD Lungs-positive rhonchi anteriorly, no wheezing Heart- normal rate, regular rhythm; no murmurs Abdomen- normal bowel sounds, nondistended, soft, nontender Extremities-mild lower extremity edema with mild warmth, no tenderness, wounds covered with dressing, no bleeding or discharge, no calf tenderness Neuro- alert, oriented x 2; no new gross focal neurologic deficits Skin- warm & dry back Results & Data Results & Data ([facility]) Vital Signs (Past 12 Hours) Vital Signs Temp Pulse Pulse Resp BP BP Pulse Ox 04/29/21 19:29 36.7 C 91 H 22 178/94 H 94 04/29/21 16:45 36.8 C 83 19 186/75 H 94 04/29/21 16:00 62 04/29/21 12:08 36.7 C 78 19 165/101 H 95 04/29/21 10:00 78 20 145/64 H 97 all noted and reviewed including below
--- NOTE | 2021-04-29 21:24 | Hospitalist Progress Note ---
Date of Service April 29, 2021 Assessment & Plan (1) Encephalopathy acute: (2) Septic shock: Plan: Per Dr. Perrni's notes with addendum: This is a 70yo F with a PMH of paroxysmal A Fib on coumadin, HTN, HLD, history of CVA, DM II, EDYTA (CPAP at bedtime), hypothyroidism, anemia and other medical problems listed below who was brought into ED in obtunded state. Was recently admitted to [facility] 03/10-03/13 for Proteus bacteremia from complicated UTI in the setting of obstructive uropathy Hypotensive in ED with elevated procal, lactate and WBC consistent with septic shock in setting of underlying aspiration pneumonitis/pneumonia on chest CT as well as possible UTI CT head negative for acute intracranial process CTA chest which was negative for PE but did show bilateral infiltrates consistent with aspiration pneumonitis/pneumonia CT abdomen pelvis which showed patent ureteral stent and was negative for acute process Requiring pressor support in ICU - mgmt per parcel post clerk Continue empiric meropenem and vanco - follow cultures 04/26 Status post bronchoscopy 04/24/2021 for left lower lobe collapse Status post repeat bronchoscopy 04/26/2021: Some parker secretions suctioned out 04/27 Off sedation, pressor, status post extubation Urine and blood cultures negative so far Bronchial wash cultures: Lida Doing well so far post extubation, on 2 L of oxygen by nasal cannula Add Tessalon Perles for cough Continue cefepime Chest percussion therapy PT and OT evaluation (3) Cardiac arrest: Plan: Went into PEA arrest in the ED following intubation but ROSC was achieved with compressions and epinephrine (4) Acute respiratory failure with hypoxia: (5) Aspiration into airway: Plan: Management per above (6) Acute kidney injury superimposed on chronic kidney disease: Plan: In setting of infection, recent uropathy. Cr 2.69 (baseline ~1.1). Creatinine improved ., back to baseline Management of sepsis per above (7) S/P ureteral stent placement: Plan: S/p cystoscopy with left ureteral stent replacement 04/21/2021, by Dr. Edwards. Stent appears patent in CT abd/pelvis (8) HTN (hypertension): Plan: Resume BP meds including lisinopril, amlodipine, diuretics including bumetanide and spironolactone (9) A-fib: Plan: Currently in sinus rhythm Continue amiodarone Resume Coumadin tomorrow if hemoglobin stable, no signs of bleeding (10) T2DM (type 2 diabetes mellitus): Plan: Holding home meds. Continue insulin (11) Sleep apnea: Plan: CPAP HS at home DVT Ppx: Heparin drip Code status: FULL PCP: Haim Dispo: Will likely need to transition to rehab when medically stable Admission and Anticipated Discharge Date Admission Date: April 22, 2021 Subjective Follow-up for septic shock, encephalopathy, aspiration pneumonia, status post cardiorespiratory arrest, etc. Seen resting in bed, undergoing chest percussion therapy Sleeping but easily awakened More alert, awake, answers all questions appropriately States breathing is better, on 2 L of oxygen via nasal cannula Reports dry cough No chest pain, palpitations, dizziness, nausea vomiting Tolerating diet which was started today No leg pain No other symptoms Review of Systems Review of Systems: all noted and negative except for above Physical Exam Physical Exam: General- oriented x 2, not in distress, speaks in sentences with no effort or accessory muscle use Eyes- anicteric Neck- no JVD Lungs-mild rhonchi bilaterally, no rales/wheezes Heart- normal rate, regular rhythm; no murmurs Abdomen- normal bowel sounds, nondistended, soft, nontender Extremities-mild lower extremity edema with mild erythema, no tenderness, blister wounds covered with dressing, no bleeding or discharge Neuro- alert, oriented x 3; no gross focal neurologic deficits Skin- warm & dry Results & Data Results & Data ([facility]) Vital Signs (Past 12 Hours) Vital Signs Temp Pulse Pulse Resp BP BP Pulse Ox 04/29/21 19:29 36.7 C 91 H 22 178/94 H 94 04/29/21 16:45 36.8 C 83 19 186/75 H 94 04/29/21 16:00 62 04/29/21 12:08 36.7 C 78 19 165/101 H 95 04/29/21 10:00 78 20 145/64 H 97 all noted and reviewed including below
[2021-04-30] MEDS: CEFEPIME 2,000 MG in SYRINGE 0 ML IV SCH ×2 (05:27→18:25)
[2021-04-30] MEDS: ICU ELECTROLYTE REPLACEMENT PROTOCOL SCH (05:28)
[2021-04-30] MEDS: LEVOTHYROXINE SODIUM 112 MCG TABLET PO SCH (05:28)
[2021-04-30 06:04] LABS: Calcium 8.7 mg/dl (8.5-10.1); Creatinine Clr Calc Pharmacy 70.6 ml/min; Est GFR (African American) 74.6 ml/min; Est GFR (Non-African American) 64.3 ml/min; Phosphorus 2.5 mg/dl (2.5-4.9); Potassium 3.8 mmol/L (3.5-5.1)
[2021-04-30] MEDS: INSULIN ASPART PER UNIT SC SCH ×4 (09:02→20:15)
[2021-04-30] MEDS: ENOXAPARIN INJ 40 MG/0.4 ML SYR SQ SCH (09:03)
[2021-04-30] MEDS: METOPROLOL TARTRATE 50 MG TAB PO SCH ×2 (09:03→20:17)
[2021-04-30] MEDS: PANTOprazole 40 MG TAB PO SCH (09:03)
[2021-04-30] MEDS: BUMETANIDE 1 MG TAB PO SCH (09:03)
[2021-04-30] MEDS: SPIRONOLACTONE 25 MG TAB PO SCH (09:03)
[2021-04-30] MEDS: INSULIN GLARGINE SOLOSTAR 100 UNITS/ML 3 ML PEN SC SCH (09:03)
[2021-04-30] MEDS: AMIODARONE 200 MG TAB PO SCH (09:03)
[2021-04-30] MEDS: amLODIPine BESYLATE 5 MG TAB PO SCH ×2 (09:03→20:17)
[2021-04-30 10:44] LABS: Hematocrit (blood only) 29.4 % (37-47); Hemoglobin 9.1 g/dL (12.0-16.0); Mean Corpuscular Hemoglobin 27.4 pg (25-34); Mean Corpuscular Volume 88.6 fL (80-100); Mean Platelet Volume 11.5 fL (7.4-10.4); Platelet Count 179 K/uL (130-400); RDW Coefficient of Variation 15.6 % (11.5-14.5); RDW Standard Deviation 50.6 fL (36.4-46.3); Red Blood Count 3.32 M/uL (4.2-5.4); White Blood Count 9.83 K/uL (4.8-10.8)
[2021-04-30] MEDS: BENZONATATE 100 MG CAPSULE PO PRN (18:23)
--- NOTE | 2021-04-30 19:22 | Hospitalist Progress Note ---
Date of Service April 30, 2021 Assessment & Plan (1) Encephalopathy acute: (2) Acute respiratory failure with hypoxia: (3) Aspiration into airway: Plan: Management per above (4) Septic shock: Plan: This is a 70yo F with a PMH of paroxysmal A Fib on coumadin, HTN, HLD, history of CVA, DM II, EDYTA (CPAP at bedtime), hypothyroidism, anemia and other medical problems listed below who was brought into ED in obtunded state. Was recently admitted to [facility] 03/10-03/13 for Proteus bacteremia from complicated UTI in the setting of obstructive uropathy Hypotensive in ED with elevated procal, lactate and WBC consistent with septic shock in setting of underlying aspiration pneumonitis/pneumonia on chest CT as well as possible UTI CT head negative for acute intracranial process CTA chest which was negative for PE but did show bilateral infiltrates consistent with aspiration pneumonitis/pneumonia CT abdomen pelvis which showed patent ureteral stent and was negative for acute process Requiring pressor support in ICU - mgmt per rfid systems architect Continue empiric meropenem and vanco - follow cultures 04/30 Status post bronchoscopy 04/24/2021 for left lower lobe collapse Status post repeat bronchoscopy 04/26/2021: Some parker secretions suctioned out Has been off sedation, pressor, status post extubation Bronchial wash cultures: Lida (most likely colonized no need to treat.) Blood cx no growth Currently on cefepime Continue 2 L of oxygen by nasal cannula Chest percussion therapy Clinically improved (5) Cardiac arrest: Plan: Went into PEA arrest in the ED following intubation but ROSC was achieved with compressions and epinephrine (6) Acute kidney injury superimposed on chronic kidney disease: Plan: In setting of infection, recent uropathy. Cr 2.69 on admission (baseline ~1.1). Creatinine back to baseline Management of sepsis per above (7) S/P ureteral stent placement: Plan: S/p cystoscopy with left ureteral stent replacement 04/21/2021, by Dr. Edwards. Stent appears patent in CT abd/pelvis (8) HTN (hypertension): Plan: Continue lisinopril, amlodipine, diuretics including bumetanide and spiron olactone (9) A-fib: Plan: Currently in sinus rhythm Continue amiodarone Coumadin resumed (10) T2DM (type 2 diabetes mellitus): Plan: Holding home meds. Continue insulin (11) Sleep apnea: Plan: CPAP HS at home DVT Ppx: on Subq Lovenox while INR not at goal Code status: FULL PCP: Haim Dispo: Will likely need to transition to rehab when medically stable Admission and Anticipated Discharge Date Admission Date: April 22, 2021 Subjective Follow-up for septic shock, encephalopathy, aspiration pneumonia, status post cardiorespiratory arrest Lying in bed with no acute distress watching TV Pt said that breathing continue to improve She is saturated 99% on 2L NC She was able to stand at the edge of the bed Denies any chest pain, palpitations, dizziness, nausea and vomiting Review of Systems Review of Systems: All systems reviewed & are unremarkable except as noted in Subjective Physical Exam Physical Exam: General- No acute distress Head- atraumatic Eyes- PERRL, EOMI, ENT- oropharynx clear Neck- supple, no JVD Lungs- clear to auscultation Heart- regular rhythm; no murmur Abdomen- normal bowel sounds, soft, nontender Extremities- no calf tenderness Neuro- alert, oriented x 3; PERRL, EOMI; no facial palsy; no dysarthria Skin- warm & dry Results & Data Results & Data ([facility]) Vital Signs (Past 12 Hours) Vital Signs Temp Pulse Pulse Resp BP BP Pulse Ox 04/30/21 16:00 85 04/30/21 15:45 36.9 C 79 19 174/81 H 100 04/30/21 12:30 77 26 H 100 04/30/21 12:15 78 35 H 99 04/30/21 12:00 77 25 H 95 04/30/21 11:45 75 27 H 94 04/30/21 11:34 36.8 C 71 19 158/71 H 100 04/30/21 11:30 72 20 100 04/30/21 11:24 73 24 158/71 H 99 04/30/21 11:15 77 17 97 04/30/21 11:00 72 26 H 100 04/30/21 10:45 70 25 H 100 04/30/21 10:30 71 30 H 98 04/30/21 10:15 71 34 H 100 04/30/21 10:00 76 19 97 04/30/21 09:45 87 17 91 04/30/21 09:30 80 18 98 04/30/21 09:15 81 23 100 04/30/21 09:00 83 26 H 99 12/29/21 08:45 85 26 H 98 04/30/21 08:30 85 28 H 97 04/30/21 08:15 84 27 H 99 04/30/21 08:00 76 26 H 98 04/30/21 07:45 82 21 98 04/30/21 07:43 36.8 C 76 19 146/58 H 98 04/30/21 07:30 81 21 97 04/30/21 07:25 77 24 146/58 H 98
[2021-04-30] MEDS: allopurinoL 100 MG TAB PO SCH (20:17)
[2021-04-30] MEDS: TAMSULOSIN HCL 0.4 MG CAP PO SCH (20:17)
[2021-04-30] MEDS: ROSUVASTATIN CALCIUM 10 MG TAB PO SCH (20:17)
[2021-04-30] MEDS: lisinopril 10 MG TAB PO SCH (20:17)
[2021-04-30] MEDS ORDERED: WARFARIN SOD 3 MG TAB PO ONE (20:45)
[2021-05-01] MEDS: CEFEPIME 2,000 MG in SYRINGE 0 ML IV SCH ×2 (05:40→17:36)
[2021-05-01] MEDS: LEVOTHYROXINE SODIUM 112 MCG TABLET PO SCH (05:40)
[2021-05-01] MEDS: BENZONATATE 100 MG CAPSULE PO PRN (05:48)
[2021-05-01 05:51] LABS: Hematocrit (blood only) 29.1 % (37-47); Mean Corpuscular Hgb Conc 30.9 g/dL (32-36); Mean Corpuscular Volume 87.4 fL (80-100); Mean Platelet Volume 11.1 fL (7.4-10.4); Platelet Count 237 K/uL (130-400); RDW Coefficient of Variation 15.7 % (11.5-14.5); RDW Standard Deviation 50.2 fL (36.4-46.3); Red Blood Count 3.33 M/uL (4.2-5.4); White Blood Count 7.77 K/uL (4.8-10.8)
[2021-05-01 06:05] LABS: INR 1.1 (0.9-1.1); Prothrombin Time 11.3 Seconds (9.0-12.0)
[2021-05-01] MEDS: INSULIN ASPART PER UNIT SC SCH ×4 (07:49→20:02)
[2021-05-01] MEDS: AMIODARONE 200 MG TAB PO SCH (08:16)
[2021-05-01] MEDS: METOPROLOL TARTRATE 50 MG TAB PO SCH ×2 (08:17→20:08)
[2021-05-01] MEDS: SPIRONOLACTONE 25 MG TAB PO SCH (08:17)
[2021-05-01] MEDS: amLODIPine BESYLATE 5 MG TAB PO SCH ×2 (08:17→20:08)
[2021-05-01] MEDS: PANTOprazole 40 MG TAB PO SCH (08:18)
[2021-05-01] MEDS: ENOXAPARIN INJ 40 MG/0.4 ML SYR SQ SCH (08:18)
[2021-05-01] MEDS: BUMETANIDE 1 MG TAB PO SCH (08:18)
[2021-05-01] MEDS: INSULIN GLARGINE SOLOSTAR 100 UNITS/ML 3 ML PEN SC SCH (08:19)
[2021-05-01] MEDS ORDERED: COUGH DROP (SUGAR FREE) LOZ 24 LOZ/1 BOX BUCCAL ONE (15:36)
[2021-05-01] MEDS: WARFARIN SOD 5 MG TAB PO SCH (16:09)
[2021-05-01] MEDS: ROSUVASTATIN CALCIUM 10 MG TAB PO SCH (20:07)
[2021-05-01] MEDS: guaiFENesin 200 MG TAB PO PRN (20:08)
[2021-05-01] MEDS: TAMSULOSIN HCL 0.4 MG CAP PO SCH (20:08)
[2021-05-01] MEDS: allopurinoL 100 MG TAB PO SCH (20:08)
[2021-05-01] MEDS: lisinopril 10 MG TAB PO SCH (20:08)
--- NOTE | 2021-05-01 23:13 | Hospitalist Progress Note ---
Date of Service May 01, 2021 Assessment & Plan (1) Encephalopathy acute: (2) Acute respiratory failure with hypoxia: (3) Aspiration into airway: Plan: Management per above (4) Septic shock: Plan: This is a 70yo F with a PMH of paroxysmal A Fib on coumadin, HTN, HLD, history of CVA, DM II, EDYTA (CPAP at bedtime), hypothyroidism, anemia and other medical problems listed below who was brought into ED in obtunded state. Was recently admitted to [facility] 03/10-03/13 for Proteus bacteremia from complicated UTI in the setting of obstructive uropathy Hypotensive in ED with elevated procal, lactate and WBC consistent with septic shock in setting of underlying aspiration pneumonitis/pneumonia on chest CT as well as possible UTI CT head negative for acute intracranial process CTA chest which was negative for PE but did show bilateral infiltrates consistent with aspiration pneumonitis/pneumonia CT abdomen pelvis which showed patent ureteral stent and was negative for acute process Requiring pressor support in ICU - mgmt per log chipper operator Continue empiric meropenem and vanco - follow cultures 05/01 Status post bronchoscopy 04/24/2021 for left lower lobe collapse Status post repeat bronchoscopy 04/26/2021: Some parker secretions suctioned out Has been off sedation, pressor, status post extubation Bronchial wash cultures: Lida (most likely colonized no need to treat.) Blood cx no growth Currently on cefepime She was weaned off oxygen Saturated well on RA Clinically improved (5) Cardiac arrest: Plan: Went into PEA arrest in the ED following intubation but ROSC was achieved with compressions and epinephrine (6) Acute kidney injury superimposed on chronic kidney disease: Plan: In setting of infection, recent uropathy. Cr 2.69 on admission (baseline ~1.1). Creatinine back to baseline Management of sepsis per above (7) S/P ureteral stent placement: Plan: S/p cystoscopy with left ureteral stent replacement 04/21/2021, by Dr. Edwards. Stent appears patent in CT abd/pelvis (8) HTN (hypertension): Plan: Continue lisinopril, amlodipine, diuretics including bumetanide and spironolactone (9) A-fib: Plan: Currently in sinus rhythm Continue amiodarone Continue Coumadin 5mg daily (10) T2DM (type 2 diabetes mellitus): Plan: Holding home meds. Continue insulin (11) Sleep apnea: Plan: CPAP HS at home DVT Ppx: on Subq Lovenox while INR not at goal Code status: FULL PCP: Haim Dispo: Waiting for placement to rehab Admission and Anticipated Discharge Date Admission Date: April 22, 2021 Subjective Follow-up for septic shock, encephalopathy, aspiration pneumonia, status post cardiorespiratory arrest Lying in bed with no acute distress Pt said that breathing continues to improve She was able to participate in physical therapy Currently saturated well on RA Denies any chest pain, palpitations, dizziness, nausea and vomiting Review of Systems Review of Systems: All systems reviewed & are unremarkable except as noted in Subjective Physical Exam Physical Exam: General- No acute distress Head- atraumatic Eyes- PERRL, EOMI, ENT- oropharynx clear Neck- supple, no JVD Lungs- No wheezing Heart- regular rhythm; no murmur Abdomen- normal bowel sounds, soft, nontender Extremities- no calf tenderness Neuro- alert, oriented x 3; PERRL, EOMI; no facial palsy; no dysarthria Skin- warm & dry Results & Data Results & Data ([facility]) Vital Signs (Past 12 Hours) Vital Signs Temp Pulse Resp BP Pulse Ox 05/01/21 20:06 37 C 81 20 155/63 H 92 05/01/21 15:20 37.4 C 77 18 163/67 H 95 05/01/21 11:30 36.8 C 77 19 137/62 95
[2021-05-02] MEDS: CEFEPIME 2,000 MG in SYRINGE 0 ML IV SCH ×2 (05:38→18:07)
[2021-05-02] MEDS: LEVOTHYROXINE SODIUM 112 MCG TABLET PO SCH (05:38)
[2021-05-02 07:03] LABS: Hemoglobin 9.1 g/dL (12.0-16.0); Mean Corpuscular Hemoglobin 27.3 pg (25-34); Mean Corpuscular Hgb Conc 31.4 g/dL (32-36); Mean Corpuscular Volume 87.1 fL (80-100); Mean Platelet Volume 10.5 fL (7.4-10.4); Platelet Count 299 K/uL (130-400); RDW Coefficient of Variation 15.4 % (11.5-14.5); RDW Standard Deviation 49.5 fL (36.4-46.3); Red Blood Count 3.33 M/uL (4.2-5.4); White Blood Count 7.16 K/uL (4.8-10.8)
[2021-05-02 07:17] LABS: INR 1.2 (0.9-1.1); Prothrombin Time 12.1 Seconds (9.0-12.0)
[2021-05-02 07:25] LABS: BUN Creatinine Ratio 22.8 (10-20); Calcium 8.8 mg/dl (8.5-10.1); Creatinine Clr Calc Pharmacy 68.8 ml/min; Est GFR (African American) 76.6 ml/min; Est GFR (Non-African American) 66.1 ml/min; Potassium 3.8 mmol/L (3.5-5.1)
[2021-05-02] MEDS: amLODIPine BESYLATE 5 MG TAB PO SCH ×2 (08:04→20:34)
[2021-05-02] MEDS: AMIODARONE 200 MG TAB PO SCH (08:04)
[2021-05-02] MEDS: METOPROLOL TARTRATE 50 MG TAB PO SCH ×2 (08:04→20:35)
[2021-05-02] MEDS: PANTOprazole 40 MG TAB PO SCH (08:04)
[2021-05-02] MEDS: BUMETANIDE 1 MG TAB PO SCH (08:04)
[2021-05-02] MEDS: SPIRONOLACTONE 25 MG TAB PO SCH (08:04)
[2021-05-02] MEDS: ENOXAPARIN INJ 40 MG/0.4 ML SYR SQ SCH (08:05)
[2021-05-02] MEDS: INSULIN GLARGINE SOLOSTAR 100 UNITS/ML 3 ML PEN SC SCH (08:06)
[2021-05-02] MEDS: INSULIN ASPART PER UNIT SC SCH ×4 (08:07→20:39)
[2021-05-02] MEDS: WARFARIN SOD 5 MG TAB PO SCH (16:59)
[2021-05-02] MEDS: allopurinoL 100 MG TAB PO SCH (20:32)
[2021-05-02] MEDS: lisinopril 10 MG TAB PO SCH (20:35)
[2021-05-02] MEDS: ROSUVASTATIN CALCIUM 10 MG TAB PO SCH (20:36)
[2021-05-02] MEDS: TAMSULOSIN HCL 0.4 MG CAP PO SCH (20:36)
--- NOTE | 2021-05-02 21:01 | Hospitalist Progress Note ---
Date of Service May 02, 2021 Assessment & Plan (1) Encephalopathy acute: (2) Acute respiratory failure with hypoxia: (3) Aspiration into airway: Plan: Management per above (4) Septic shock: Plan: This is a 70yo F with a PMH of paroxysmal A Fib on coumadin, HTN, HLD, history of CVA, DM II, EDYTA (CPAP at bedtime), hypothyroidism, anemia and other medical problems listed below who was brought into ED in obtunded state. Was recently admitted to [facility] 03/10-03/13 for Proteus bacteremia from complicated UTI in the setting of obstructive uropathy Hypotensive in ED with elevated procal, lactate and WBC consistent with septic shock in setting of underlying aspiration pneumonitis/pneumonia on chest CT as well as possible UTI CT head negative for acute intracranial process CTA chest which was negative for PE but did show bilateral infiltrates consistent with aspiration pneumonitis/pneumonia CT abdomen pelvis which showed patent ureteral stent and was negative for acute process Requiring pressor support in ICU - mgmt per perfect binder operator Continue empiric meropenem and vanco - follow cultures 05/02 Status post bronchoscopy 04/24/2021 for left lower lobe collapse Status post repeat bronchoscopy 04/26/2021: Some parker secretions suctioned out Has been off sedation, pressor, status post extubation Bronchial wash cultures: Lida (most likely colonized no need to treat.) Blood cx no growth Currently on cefepime Will weaned off oxygen Clinically improved (5) Cardiac arrest: Plan: Went into PEA arrest in the ED following intubation but ROSC was achieved with compressions and epinephrine (6) Acute kidney injury superimposed on chronic kidney disease: Plan: In setting of infection, recent uropathy. Cr 2.69 on admission (baseline ~1.1). Creatinine back to baseline Management of sepsis per above (7) S/P ureteral stent placement: Plan: S/p cystoscopy with left ureteral stent replacement 04/21/2021, by Dr. Edwards. Stent appears patent in CT abd/pelvis Daughter called today to ask if ureteral stent can be removed during this admission that was placed by Dr. Edwards Tigertext sent to the senior publications specialist urology, waiting for reply. Will try to contact urology again on Wednesday (8) HTN (hypertension): Plan: Continue lisinopril, amlodipine, diuretics including bumetanide and spironolactone (9) A-fib: Plan: Currently in sinus rhythm Continue amiodarone Continue Coumadin 5mg daily (10) T2DM (type 2 diabetes mellitus): Plan: Holding home meds. Continue insulin (11) Sleep apnea: Plan: CPAP HS at home DVT Ppx: on Subq Lovenox while INR not at goal Code status: FULL PCP: Haim Dispo: Waiting for placement to rehab Admission and Anticipated Discharge Date Admission Date: April 22, 2021 Subjective Follow-up for septic shock, encephalopathy, aspiration pneumonia, status post cardiorespiratory arrest Lying in bed with no acute distress Patient said that she is feeling much better Daughter called today to ask if ureteral stent can be removed during this admission that was placed by Dr. Edwards 04/21 Tigertext sent to the senior publications specialist urology, waiting for reply Denies any chest pain, palpitations, dizziness, nausea and vomiting Review of Systems Review of Systems: All systems reviewed & are unremarkable except as noted in Subjective Physical Exam Physical Exam: General- No acute distress Head- atraumatic Eyes- PERRL, EOMI, ENT- oropharynx clear Neck- supple, no JVD Lungs- No wheezing Heart- regular rhythm; no murmur Abdomen- normal bowel sounds, soft, nontender Extremities- no calf tenderness Neuro- alert, oriented x 3; PERRL, EOMI; no facial palsy; no dysarthria Skin- warm & dry Results & Data Results & Data ([facility]) Vital Signs (Past 12 Hours) Vital Signs Temp Pulse Pulse Resp BP Pulse Ox 05/02/21 19:05 37.2 C 89 29 H 150/57 H 90 05/02/21 19:00 89 05/02/21 16:00 36.9 C 82 20 147/61 H 96 05/02/21 12:30 37.2 C 77 20 144/60 H 95
[2021-05-03] MEDS: LEVOTHYROXINE SODIUM 112 MCG TABLET PO SCH (06:13)
[2021-05-03] MEDS: CEFEPIME 2,000 MG in SYRINGE 0 ML IV SCH ×2 (06:13→17:11)
[2021-05-03] MEDS: INSULIN ASPART PER UNIT SC SCH ×4 (07:50→21:07)
[2021-05-03] MEDS: INSULIN GLARGINE SOLOSTAR 100 UNITS/ML 3 ML PEN SC SCH (07:53)
[2021-05-03] MEDS: PANTOprazole 40 MG TAB PO SCH (07:54)
[2021-05-03] MEDS: AMIODARONE 200 MG TAB PO SCH (07:54)
[2021-05-03] MEDS: BUMETANIDE 1 MG TAB PO SCH (07:54)
[2021-05-03] MEDS: ENOXAPARIN INJ 40 MG/0.4 ML SYR SQ SCH (07:55)
[2021-05-03] MEDS: METOPROLOL TARTRATE 50 MG TAB PO SCH ×2 (07:55→20:43)
[2021-05-03] MEDS: amLODIPine BESYLATE 5 MG TAB PO SCH ×2 (07:55→20:43)
[2021-05-03] MEDS: SPIRONOLACTONE 25 MG TAB PO SCH (07:55)
[2021-05-03] MEDS: ACETAMINOPHEN 325 MG TAB PO PRN (08:24)
--- NOTE | 2021-05-03 12:34 | Hospitalist Progress Note ---
Date of Service May 03, 2021 Assessment & Plan (1) Encephalopathy acute: (2) Acute respiratory failure with hypoxia: (3) Aspiration into airway: Plan: Management per above (4) Septic shock: Plan: This is a 70yo F with a PMH of paroxysmal A Fib on coumadin, HTN, HLD, history of CVA, DM II, EDYTA (CPAP at bedtime), hypothyroidism, anemia and other medical problems listed below who was brought into ED in obtunded state. Was recently admitted to [facility] 03/10-03/13 for Proteus bacteremia from complicated UTI in the setting of obstructive uropathy Hypotensive in ED with elevated procal, lactate and WBC consistent with septic shock in setting of underlying aspiration pneumonitis/pneumonia on chest CT as well as possible UTI CT head negative for acute intracranial process CTA chest which was negative for PE but did show bilateral infiltrates consistent with aspiration pneumonitis/pneumonia CT abdomen pelvis which showed patent ureteral stent and was negative for acute process Requiring pressor support in ICU - mgmt per check out cashier Continue empiric meropenem and vanco - follow cultures 05/03/21 Status post bronchoscopy 04/24/2021 for left lower lobe collapse Status post repeat bronchoscopy 04/26/2021: Some parker secretions suctioned out Has been off sedation, pressor, status post extubation Bronchial wash cultures: Lida (most likely colonized no need to treat.) Blood cx no growth Currently on cefepime day#9 out 10 continue to weaned off oxygen We will give Lasix 20 mg IV x1 today We will consider to resume bumetanidet tomorrow Clinically improved (5) Cardiac arrest: Plan: Went into PEA arrest in the ED following intubation but ROSC was achieved with compressions and epinephrine Stable (6) Acute kidney injury superimposed on chronic kidney disease: Plan: In setting of infection, recent uropathy. Cr 2.69 on admission (baseline ~1.1). Creatinine back to baseline Management of sepsis per above (7) S/P ureteral stent placement: Plan: S/p cystoscopy with left ureteral stent replacement 04/21/2021, by Dr. Edwards. Stent appears patent in CT abd/pelvis Daughter called today to ask if ureteral stent can be removed during this admission that was placed by Dr. Edwards Tigertext sent to the sales operations coordinator urology, waiting for reply. Will try to contact urology again on [place] (8) HTN (hypertension): Plan: Continue lisinopril, amlodipine, diuretics including bumetanide and spironolactone (9) A-fib: Plan: Currently in sinus rhythm Continue amiodarone Continue Coumadin 5mg daily Continue monitor PT/INR (10) T2DM (type 2 diabetes mellitus): Plan: Holding home meds. Continue insulin (11) Sleep apnea: Plan: CPAP HS at home DVT Ppx: on Subq Lovenox while INR not at goal Code status: FULL PCP: Haim Dispo: Waiting for placement to rehab Admission and Anticipated Discharge Date Admission Date: April 22, 2021 Subjective Follow up for septic shock, encephalopathy, aspiration pneumonia, status post cardiorespiratory arrest Lying in bed with no acute distress She has been having a dry coughing up this morning Denies any chest pain, palpitations, dizziness, nausea and vomiting Review of Systems Review of Systems: All systems reviewed & are unremarkable except as noted in Subjective Physical Exam Physical Exam: General- No acute distress Head- a traumatic Eyes- PE RRL, EOMI, ENT- or opharynx clear Nec k- supple, no JVD Lungs- No wheezing Heart- regular rh ythm; no murmur Ab domen- normal ghanshyam l sounds, soft, no ntender Extremitie s- no calf tender ness Neuro- alert, oriented x 3; PER RL, EOMI; no facia l palsy; no dysart hria Skin- warm & dry Results & Data Results & Data ([facility]) Vital Signs (Past 12 Hours) Vital Signs Temp Pulse Pulse Pulse Resp BP BP 05/03/21 11:15 37.0 C 71 24 147/67 H 05/03/21 08:00 76 05/03/21 07:00 36.6 C 76 24 147/57 H 05/03/21 04:18 36.9 C 73 24 125/53 L Pulse Ox 05/03/21 11:15 94 05/03/21 08:00 05/03/21 07:00 05/03/21 04:18
[2021-05-03] MEDS ORDERED: FUROSEMIDE INJ 20 MG/2 ML VIAL IV ONE (12:41)
[2021-05-03] MEDS: BENZONATATE 100 MG CAPSULE PO SCH ×2 (13:27→20:43)
[2021-05-03] MEDS: WARFARIN SOD 5 MG TAB PO SCH (16:11)
[2021-05-03] MEDS: TAMSULOSIN HCL 0.4 MG CAP PO SCH (20:42)
[2021-05-03] MEDS: ROSUVASTATIN CALCIUM 10 MG TAB PO SCH (20:42)
[2021-05-03] MEDS: lisinopril 10 MG TAB PO SCH (20:43)
[2021-05-03] MEDS: allopurinoL 100 MG TAB PO SCH (20:43)
[2021-05-03] MEDS: DOCUSATE SODIUM 100 MG CAP PO SCH (20:45)
[2021-05-04 04:48] LABS: Hematocrit (blood only) 28.7 % (37-47); Mean Corpuscular Hemoglobin 27.4 pg (25-34); Mean Corpuscular Hgb Conc 31.4 g/dL (32-36); Mean Corpuscular Volume 87.2 fL (80-100); Mean Platelet Volume 9.9 fL (7.4-10.4); Platelet Count 379 K/uL (130-400); RDW Coefficient of Variation 15.2 % (11.5-14.5); RDW Standard Deviation 48.7 fL (36.4-46.3); Red Blood Count 3.29 M/uL (4.2-5.4); White Blood Count 5.92 K/uL (4.8-10.8)
[2021-05-04 04:58] LABS: INR 1.8 (0.9-1.1)
[2021-05-04 05:11] LABS: BUN Creatinine Ratio 19.4 (10-20); Calcium 9.1 mg/dl (8.5-10.1); Creatinine Clr Calc Pharmacy 58.7 ml/min; Est GFR (African American) 63.3 ml/min; Est GFR (Non-African American) 54.6 ml/min; Potassium 3.8 mmol/L (3.5-5.1)
[2021-05-04] MEDS: LEVOTHYROXINE SODIUM 112 MCG TABLET PO SCH (05:55)
[2021-05-04] MEDS: CEFEPIME 2,000 MG in SYRINGE 0 ML IV SCH ×2 (05:55→17:09)
[2021-05-04] MEDS: INSULIN ASPART PER UNIT SC SCH ×4 (08:12→22:01)
[2021-05-04] MEDS: AMIODARONE 200 MG TAB PO SCH (08:21)
[2021-05-04] MEDS: PANTOprazole 40 MG TAB PO SCH (08:22)
[2021-05-04] MEDS: DOCUSATE SODIUM 100 MG CAP PO SCH ×2 (08:22→20:49)
[2021-05-04] MEDS: BENZONATATE 100 MG CAPSULE PO SCH ×3 (08:23→20:48)
[2021-05-04] MEDS: METOPROLOL TARTRATE 50 MG TAB PO SCH ×2 (08:23→20:49)
[2021-05-04] MEDS: SPIRONOLACTONE 25 MG TAB PO SCH (08:23)
[2021-05-04] MEDS: BUMETANIDE 1 MG TAB PO SCH (08:23)
[2021-05-04] MEDS: amLODIPine BESYLATE 5 MG TAB PO SCH ×2 (08:23→20:49)
[2021-05-04] MEDS: INSULIN GLARGINE SOLOSTAR 100 UNITS/ML 3 ML PEN SC SCH (08:24)
[2021-05-04] MEDS: WARFARIN SOD 5 MG TAB PO SCH (16:12)
[2021-05-04] MEDS: HYDROcodone/HOMATROPINE SYRUP 5MG/1.5MG 5ML UDP PO PRN ×2 (16:12→20:46)
--- NOTE | 2021-05-04 19:00 | Hospitalist Progress Note ---
Date of Service May 04, 2021 Assessment & Plan (1) Encephalopathy acute: (2) Acute respiratory failure with hypoxia: (3) Aspiration into airway: Plan: Management per above (4) Septic shock: Plan: This is a 70yo F with a PMH of paroxysmal A Fib on coumadin, HTN, HLD, history of CVA, DM II, EDYTA (CPAP at bedtime), hypothyroidism, anemia and other medical problems listed below who was brought into ED in obtunded state. Was recently admitted to [facility] 03/10-03/13 for Proteus bacteremia from complicated UTI in the setting of obstructive uropathy Hypotensive in ED with elevated procal, lactate and WBC consistent with septic shock in setting of underlying aspiration pneumonitis/pneumonia on chest CT as well as possible UTI CT head negative for acute intracranial process CTA chest which was negative for PE but did show bilateral infiltrates consistent with aspiration pneumonitis/pneumonia CT abdomen pelvis which showed patent ureteral stent and was negative for acute process Requiring pressor support in ICU - mgmt per relish blender Continue empiric meropenem and vanco - follow cultures 05/05/21 Status post bronchoscopy 04/24/2021 for left lower lobe collapse Status post repeat bronchoscopy 04/26/2021: Some parker secretions suctioned out Has been off sedation, pressor, status post extubation Bronchial wash cultures: Lida (most likely colonized no need to treat.) Blood cx no growth Currently on cefepime day#10 out 10 continue to weaned off oxygen Continue bumetanide Clinically stable to transition to rehab (5) Cardiac arrest: Plan: Went into PEA arrest in the ED following intubation but ROSC was achieved with compressions and epinephrine Stable (6) Acute kidney injury superimposed on chronic kidney disease: Plan: In setting of infection, recent uropathy. Cr 2.69 on admission (baseline ~1.1). Creatinine back to baseline Management of sepsis per above (7) S/P ureteral stent placement: Plan: S/p cystoscopy with left ureteral stent replacement 04/21/2021, by Dr. Edwards. Stent appears patent in CT abd/pelvis Daughter called today to ask if ureteral stent can be removed during this admission that was placed by Dr. Edwards Tigertext sent to the neon sign installer urology, waiting for reply. Will try to contact urology again on Wednesday (8) HTN (hypertension): Plan: Continue lisinopril, amlodipine, diuretics including bumetanide and spironolactone (9) A-fib: Plan: Currently in sinus rhythm Continue amiodarone Continue Coumadin 5mg daily Continue monitor PT/INR (10) T2DM (type 2 diabetes mellitus): Plan: Holding home meds. Continue insulin (11) Sleep apnea: Plan: CPAP HS at home DVT Ppx: on Subq Lovenox while INR not at goal Code status: FULL PCP: Haim Dispo: Waiting for placement to rehab Admission and Anticipated Discharge Date Admission Date: April 22, 2021 Subjective Follow up for septic shock, encephalopathy, aspiration pneumonia, status post cardiorespiratory arrest Lying in bed with no acute distress She continues to have a dry cough She said every time she coughs, she has tenderness in her chest wall area Denies any chest pain, palpitations, dizziness, nausea and vomiting. Review of Systems Review of Systems: All systems reviewed & are unremarkable except as noted in Subjective Physical Exam Physical Exam: General- No acute distress Head- a traumatic Eyes- PE RRL, EOMI, ENT- or opharynx clear Nec k- supple, no JVD Lungs- No wheezing Heart- regular rh ythm; no murmur Ab domen- normal ghanshyam l sounds, soft, no ntender Extremitie s- no calf tender ness Neuro- alert, oriented x 3; PER RL, EOMI; no facia l palsy; no dysart hria Skin- warm & dry Results & Data Results & Data ([facility]) Vital Signs (Past 12 Hours) Vital Signs Temp Pulse Pulse Pulse Resp BP Pulse Ox 05/04/21 18:47 36.9 C 89 19 119/74 91 05/04/21 18:46 91 H 05/04/21 16:00 36.8 C 65 85 20 143/66 H 91 05/04/21 12:55 36.8 C 76 22 125/54 L 93 05/04/21 08:00 65 05/04/21 07:43 36.8 C 85 18 138/62 90
[2021-05-04] MEDS: ACETAMINOPHEN 325 MG TAB PO PRN (20:45)
[2021-05-04] MEDS: ROSUVASTATIN CALCIUM 10 MG TAB PO SCH (20:49)
[2021-05-04] MEDS: TAMSULOSIN HCL 0.4 MG CAP PO SCH (20:49)
[2021-05-04] MEDS: lisinopril 10 MG TAB PO SCH (20:50)
[2021-05-04] MEDS: allopurinoL 100 MG TAB PO SCH (20:50)
[2021-05-05] MEDS: LEVOTHYROXINE SODIUM 112 MCG TABLET PO SCH (05:39)
[2021-05-05 06:23] LABS: Hematocrit (blood only) 29.8 % (37-47); Hemoglobin 9.4 g/dL (12.0-16.0); Mean Corpuscular Hemoglobin 27.2 pg (25-34); Mean Corpuscular Hgb Conc 31.5 g/dL (32-36); Mean Corpuscular Volume 86.4 fL (80-100); Mean Platelet Volume 10.1 fL (7.4-10.4); Platelet Count 408 K/uL (130-400); RDW Coefficient of Variation 15.4 % (11.5-14.5); RDW Standard Deviation 48.8 fL (36.4-46.3); Red Blood Count 3.45 M/uL (4.2-5.4); White Blood Count 6.56 K/uL (4.8-10.8)
[2021-05-05 06:35] LABS: Prothrombin Time 19.6 Seconds (9.0-12.0)
[2021-05-05] MEDS: HYDROcodone/HOMATROPINE SYRUP 5MG/1.5MG 5ML UDP PO PRN ×2 (06:39→14:38)
[2021-05-05] MEDS: AMIODARONE 200 MG TAB PO SCH (07:55)
[2021-05-05] MEDS: PANTOprazole 40 MG TAB PO SCH (07:56)
[2021-05-05] MEDS: guaiFENesin 200 MG TAB PO PRN (07:56)
[2021-05-05] MEDS: BUMETANIDE 1 MG TAB PO SCH (07:56)
[2021-05-05] MEDS: SPIRONOLACTONE 25 MG TAB PO SCH (07:56)
[2021-05-05] MEDS: METOPROLOL TARTRATE 50 MG TAB PO SCH (07:58)
[2021-05-05] MEDS: INSULIN GLARGINE SOLOSTAR 100 UNITS/ML 3 ML PEN SC SCH (07:58)
[2021-05-05] MEDS: BENZONATATE 100 MG CAPSULE PO SCH ×2 (07:59→13:37)
[2021-05-05] MEDS: DOCUSATE SODIUM 100 MG CAP PO SCH (07:59)
[2021-05-05] MEDS: amLODIPine BESYLATE 5 MG TAB PO SCH (07:59)
[2021-05-05] MEDS: INSULIN ASPART PER UNIT SC SCH ×2 (08:02→11:59)
--- NOTE | 2021-05-05 13:14 | Hospitalist Progress Note ---
Date of Service May 05, 2021 Assessment & Plan (1) Encephalopathy acute: (2) Acute respiratory failure with hypoxia: (3) Aspiration into airway: Plan: Management per above (4) Septic shock: Plan: This is a 70yo F with a PMH of paroxysmal A Fib on coumadin, HTN, HLD, history of CVA, DM II, EDYTA (CPAP at bedtime), hypothyroidism, anemia and other medical problems listed below who was brought into ED in obtunded state. Was recently admitted to [facility] 03/10-03/13 for Proteus bacteremia from complicated UTI in the setting of obstructive uropathy. Hypotensive in ED with elevated procal, lactate and WBC consistent with septic shock in setting of underlying aspiration pneumonitis/pneumonia on chest CT as well as possible UTI CT head negative for acute intracranial process CTA chest which was negative for PE but did show bilateral infiltrates consistent with aspiration pneumonitis/pneumonia CT abdomen pelvis which showed patent ureteral stent and was negative for acute process Requiring pressor support in ICU - mgmt per resident care assistant Received empiric meropenem and vanco Status post bronchoscopy 04/24/2021 for left lower lobe collapse Status post repeat bronchoscopy 04/26/2021: Some parker secretions suctioned out Has been off sedation, pressor, status post extubation Bronchial wash cultures: Lida (most likely colonized no need to treat.) Blood cx no growth Finish the course of antibiotic with cefepime for a total of 10 days Continue to weaned off oxygen Continue bumetanide Remains stable as of today and is ready to be transferred to [facility] (5) Cardiac arrest: Plan: Went into PEA arrest in the ED following intubation but ROSC was achieved with compressions and epinephrine Stable (6) Acute kidney injury superimposed on chronic kidney disease: Plan: In setting of infection, recent uropathy. Cr 2.69 on admission (baseline ~1.1). Creatinine back to baseline Management of sepsis per above Creatinine remains normal (7) S/P ureteral stent placement: Plan: S/p cystoscopy with left ureteral stent replacement 04/21/2021, by Dr. Edwards. Stent appears patent in CT abd/pelvis Daughter called today to ask if ureteral stent can be removed during this adm ission that was placed by Dr. Edwards Discussed with the urologist through [employer] text In the light of recent events they will take the stent out after about 7 days as an outpatient and at the time the urologist will take care of the catheter as well This was discussed with the daughter before transferring to [facility] (8) HTN (hypertension): Plan: Continue lisinopril, amlodipine, diuretics including bumetanide and spironolactone (9) A-fib: Plan: Currently in sinus rhythm Continue amiodarone Continue Coumadin 5mg daily Continue monitor PT/INR -INR is 2.0 has of 05/05/2021 (10) T2DM (type 2 diabetes mellitus): Plan: Holding home meds. Continue insulin (11) Sleep apnea: Plan: CPAP HS at home DVT Ppx: on Subq Lovenox while INR not at goal Code status: FULL PCP: Haim Dispo: Waiting for placement to rehab She'll be transferred to [facility] this afternoon Admission and Anticipated Discharge Date Admission Date: April 22, 2021 Subjective 05/05/2021 The patient was seen and examined in medical telemetry unit She has been feeling much better and denies any symptoms Specifically no abdominal pain, no nausea no vomiting and denies any chest pain and/or shortness of breath Review of Systems Review of Systems: All systems reviewed and are unremarkable except as noted below Physical Exam Physical Exam: Lying in bed comfortably Constitutional: well developed, well nourished, + ill appearing and + obese Eyes: PERRL, conjunctivae normal, anicteric sclerae ENMT: external ear and nose normal, oropharynx normal Neck: trachea midline, no thyromegaly Respiratory: no respiratory distress Auscultation: + diminished lung sounds and + crackles (Minimal crackles at the bases) Cardiovascular: Rate/Rhythm: regular rate and regular rhythm; not tachycardic Heart Sounds: normal S1 and normal S2; no murmur Extremities: + edema (Trace edema bilaterally) Chronic skin changes both lower legs. A big blister on the dorsum of left foot without any surrounding infection and/or inflammation Gastrointestinal (Abdomen): Inspection/Auscultation: abdomen not distended Percussion/Palpation: abdomen soft; abdomen nontender Musculoskeletal: No acute arthritis in any joint Skin: Chronic skin changes in extremities with multiple bruising. A big blister on the left dorsum without any infection. Neurologic: Alert, awake and oriented x3 Lymphatic: no cervical or axillary lymphadenopathy Results & Data Results & Data ([facility]) Vital Signs (Past 12 Hours) Vital Signs Temp Pulse Pulse Pulse Resp BP Pulse Ox 05/05/21 11:00 36.6 C 68 18 141/73 H 92 05/05/21 07:25 36.5 C 73 20 118/70 92 05/05/21 07:08 67 05/05/21 03:22 36.6 C 16 L 79 18 106/60 93 Laboratory Results Short CBC 05/05/21 Range/Units 06:06 WBC 6.56 (4.8-10.8) K/uL Hgb 9.4 L (12.0-16.0) g/dL Hct 29.8 L (37-47) % Plt Count 408 H (130-400) K/uL Medications Administered Current Inpatient Medications Acetaminophen (Acetaminophen 325 Mg Tab) 650 mg PO Q8H PRN PRN Reason: Pain Stop: 06/02/21 08:16 Last Admin: 05/04/21 20:45 Dose: 650 mg Documented by: Albuterol (Albut/Ipratrop 3mg/0.5mg Neb 3 Ml Vial) 3 ml NEB Q4R PRN; Protocol PRN Reason: Shortness Of Breath Or Wheezing Stop: 05/22/21 22:59 Last Admin: 04/22/21 21:44 Dose: 3 ml Documented by: Allopurinol (Allopurinol 100 Mg Tab) 200 mg PO HS [facility] Stop: 05/29/21 20:59 Last Admin: 05/04/21 20:50 Dose: 200 mg Documented by: Amiodarone HCl (Amiodarone 200 Mg Tab) 200 mg PO QAM [facility] Stop: 05/30/21 08:59 Last Admin: 05/05/21 07:55 Dose: 200 mg Documented by: Amlodipine Besylate (Amlodipine Besylate 5 Mg Tab) 5 mg PO BID [facility] Stop: 05/29/21 20:59 Last Admin: 05/05/21 07:59 Dose: 5 mg Documented by: Benzonatate (Benzonatate 100 Mg Capsule) 100 mg PO TID [facility] Stop: 06/02/21 13:59 Last Admin: 05/05/21 07:59 Dose: 100 mg Documented by: Bumetanide (Bumetanide 1 Mg Tab) 1 mg PO QAM [facility] Stop: 05/29/21 09:44 Last Admin: 05/05/21 07:56 Dose: 1 mg Documented by: Dextrose (Dextrose 50% 50 Ml Syringe) 25 - 50 ml IV UD PRN; Protocol PRN Reason: Hypoglycemia Protocol Stop: 05/23/21 09:19 Last Admin: 04/23/21 15:58 Dose: 25 ml Documented by: Docusate Sodium (Docusate Sodium 100 Mg Cap) 100 mg PO BID [facility] Stop: 06/02/21 20:59 Last Admin: 05/05/21 07:59 Dose: 100 mg Documented by: Glucagon (Glucagon For Inj 1 Mg Vial) 1 mg SQ UD PRN; Protocol PRN Reason: Hypoglycemia Protocol Stop: 05/23/21 09:19 Glucose (Glucose 10 Tabs/Tube) 4 - 8 tabs PO UD PRN; Protocol PRN Reason: Hypoglycemia Protocol Stop: 05/23/21 09:19 Glucose (Glucose 40% Gel 15 Gm Tube) 15 - 30 gm PO UD PRN; Protocol PRN Reason: Hypoglycemia Protocol Stop: 05/23/21 09:19 Guaifenesin (Guaifenesin 200 Mg Tab) 200 mg PO Q8H PRN PRN Reason: cough Stop: 05/31/21 19:29 Last Admin: 05/05/21 07:56 Dose: 200 mg Documented by: Hydralazine HCl (Hydralazine Hcl 20 Mg/Ml Vial) 5 mg IV Q6H PRN PRN Reason: systolic bp > 160 Stop: 05/29/21 21:14 Hydrocodone Bit/Homatropine Methylb (Hydrocodone/Homatropine Syrup 5mg/1.5mg 5ml Udp) 5 ml PO Q8H PRN PRN Reason: Cough Stop: 05/18/21 15:17 Last Admin: 05/05/21 06:39 Dose: 5 ml Documented by: Insulin Aspart (Insulin Aspart Per Unit) 0 units SC ACHS [facility] Stop: 05/28/21 16:29 Last Admin: 05/05/21 11:59 Dose: 8 units Documented by: Insulin Glargine (Insulin Glargine Solostar 100 Units/Ml 3 Ml Pen) 8 units SC DAILY [facility]; Protocol Stop: 05/30/21 08:59 Last Admin: 05/05/21 07:58 Dose: 8 units Documented by: Levothyroxine Sodium (Levothyroxine Sodium 112 Mcg Tablet) [facility] Stop: 05/29/21 15:59 Last Admin: 05/05/21 05:39 Dose: 112 mcg Documented by: Lisinopril (Lisinopril 10 Mg Tab) 10 mg PO QPM [facility] Stop: 05/29/21 20:59 Last Admin: 05/04/21 20:50 Dose: 10 mg Documented by: Metoprolol Tartrate (Metoprolol Tartrate 50 Mg Tab) 50 mg PO BID [facility] Stop: 05/29/21 20:59 Last Admin: 05/05/21 07:58 Dose: 50 mg Documented by: Miscellaneous (Carbohydrates For Hypoglycemia ) 15 - 30 gm PO UD PRN PRN Reason: Hypoglycemia Protocol Stop: 05/23/21 09:19 Pantoprazole Sodium (Pantoprazole 40 Mg Tab) 40 mg PO [facility] Stop: 05/30/21 08:59 Last Admin: 05/05/21 07:56 Dose: 40 mg Documented by: Rosuvastatin Calcium (Rosuvastatin Calcium 10 Mg Tab) 10 mg PO [facility] Stop: 05/29/21 20:59 Last Admin: 05/04/21 20:49 Dose: 10 mg Documented by: Spironolactone (Spironolactone 25 Mg Tab) 25 mg PO [facility] Stop: 05/30/21 08:59 Last Admin: 05/05/21 07:56 Dose: 25 mg Documented by: Tamsulosin HCl (Tamsulosin Hcl 0.4 Mg Cap) 0.4 mg PO [facility] Stop: 05/29/21 20:59 Last Admin: 05/04/21 20:49 Dose: 0.4 mg Documented by: Warfarin Sodium (Warfarin Sod 5 Mg Tab) 5 mg PO DAILY@1600 [facility] Stop: 05/31/21 15:59 Last Admin: 05/04/21 16:12 Dose: 5 mg Documented by:
--- NOTE | 2021-05-07 07:31 | Discharge Summary ---
Date of Service May 07, 2021 Admission HPI Per Admitting Provider Chief Complaint: AMS Primary Care Provider: Micah Whitmore MD This is a 70yo F with a PMH of paroxysmal A Fib on coumadin, HTN, HLD, history of CVA, DM II, EDYTA (CPAP at bedtime), hypothyroidism, anemia and other medical problems listed below who was brought into ED in obtunded state. Was recently admitted to [facility] 03/10-03/13 for Proteus bacteremia from complicated UTI in the setting of obstructive uropathy. Was discharged on 2 weeks of cefdinir therapy that she completed. Has followed up with urology as an outpatient and underwent cystoscopy with left ureteral stent replacement yesterday, 04/21/2021, by Dr. Edwards. Was complaining of shortness of breath yesterday and was found to be obtunded and hypotensive earlier today and brought into ED for further evaluation. In ER, patient found to be hypotensive, requiring central line access in the start of pressors. Remained obtunded and was intermittently hypoxic and was thus intubated for airway protection. Procalcitonin, lactate and white blood cell counts were all elevated and patient was covered with empiric meropenem for septic shock treatment. Subsequently went into PEA arrest in the ED following intubation but ROSC was achieved with compressions and epinephrine. Once stabilized, underwent CT head which was negative for acute intracranial process, CTA chest which was negative for PE but did show bilateral infiltrates consisten t with aspiration pneumonitis/pneumonia and CT abdomen pelvis which showed patent ureteral stent and was negative for acute process. Remained on Levophed and epinephrine pressor support and was transferred to ICU for further management. Unable to obtain ROS due to patient's sedated state.Allergies Admission Exam Per Admitting Provider Physical Exam: General Appearance:vitals as above, sedated in ICU with mechanical ventilation, obese Head: normocephalic, atraumatic Eyes:normal inspection, PERRL ENT: external ear and nose normal, ET tube in place Neck: normal visual inspection, trachea midline, no thyromegaly Respiratory:normal respiratory effort, lungs with diffuse rhonchi. No accessory muscle use Cardiovascular: regular rate, rhythm, no murmur, normal peripheral pulses, no BLE edema. Vessels: no JVD Chest: normal inspection of chest Abdomen/GI: normal bowel sounds, soft, nontender, no hepatosplenomegaly : Joseph collection with small amount of reddish urine with sediment Extremities/Musculoskeletal: no cyanosis or clubbing, extremities motor strength 5/5 Neurologic: PERRL, obtunded Skin: no rashes, normal color, warm/dry Principal Diagnosis Septic shock, pneumonia, status post cardiac arrest, SAJAN on CKD, A. fib on Coumadin, recent placement of left ureteral stent Discharge Exam Lying in bed comfortably Constitutional well developed, well nourished, + ill appearing and + obese Eyes PERRL, conjunctivae normal, anicteric sclerae ENMT external ear and nose normal, oropharynx normal Neck trachea midline, no thyromegaly Respiratory no respiratory distress Auscultation: + diminished lung sounds and + crackles (Minimal crackles at the bases) Cardiovascular Rate/Rhythm: regular rate and regular rhythm; not tachycardic Heart Sounds: normal S1 and normal S2; no murmur Extremities: + edema (Trace edema bilaterally) Gastrointestinal (Abdomen) Inspection/Auscultation: abdomen not distended Percussion/Palpation: abdomen soft; abdomen nontender Lymphatic no cervical or axillary lymphadenopathy Discharge Data Allergies Allergy/AdvReac Type Severity Reaction Status Date / Time Penicillins Allergy Intermediate URTICARIA; Verified 04/21/21 09:12 PER PT, CAN TAKE AMOXICILLIN erythromycin base AdvReac Mild GI UPSET Verified 04/21/21 09:12 Consultations 04/22/21 17:10 ED Decision to Admit Stat 04/22/21 18:35 Consult Tube And Manifold Builder Routine Ordered Studies 04/22/21 15:36 CT abd pelvis IV con only Stat CT angio chest PE protocol Stat CT head/brain wo con Stat 04/25/21 08:16 US venous doppler LE BI Routine 04/25/21 10:34 US arterial duplex LE BI Urgent Hospital Course (1) Encephalopathy acute: (2) Acute respiratory failure with hypoxia: (3) Aspiration into airway: Management per above (4) Septic shock: This is a 70yo F with a PMH of paroxysmal A Fib on coumadin, HTN, HLD, history of CVA, DM II, EDYTA (CPAP at bedtime), hypothyroidism, anemia and other medical problems listed below who was brought into ED in obtunded state. Was recently admitted to [facility] 03/10-03/13 for Proteus bacteremia from complicated UTI in the setting of obstructive uropathy. Hypotensive in ED with elevated procal, lactate and WBC consistent with septic shock in setting of underlying aspiration pneumonitis/pneumonia on chest CT as well as possible UTI CT head negative for acute intracranial process CTA chest which was negative for PE but did show bilateral infiltrates consistent with aspiration pneumonitis/pneumonia CT abdomen pelvis which showed patent ureteral stent and was negative for acute process Requiring pressor support in ICU - mgmt per furnace feeder Received empiric meropenem and vanco Status post bronchoscopy 04/24/2021 for left lower lobe collapse Status post repeat bronchoscopy 04/26/2021: Some parker secretions suctioned out Has been off sedation, pressor, status post extubation Bronchial wash cultures: Lida (most likely colonized no need to treat.) Blood cx no growth Finish the course of antibiotic with cefepime for a total of 10 days Continue to weaned off oxygen Continue bumetanide Remains stable as of today and is ready to be transferred to [facility] (5) Cardiac arrest: Went into PEA arrest in the ED following intubation but ROSC was achieved with compressions and epinephrine Stable (6) Acute kidney injury superimposed on chronic kidney disease: In setting of infection, recent uropathy. Cr 2.69 on admission (baseline ~1.1). Creatinine back to baseline Management of sepsis per above Creatinine remains normal (7) S/P ureteral stent placement: S/p cystoscopy with left ureteral stent replacement 04/21/2021, by Dr. Edwards. Stent appears patent in CT abd/pelvis Daughter called today to ask if ureteral stent can be removed during this admission that was placed by Dr. Edwards Discussed with the urologist through [employer] text In the light of recent events they will take the stent out after about 7 days as an outpatient and at the time the urologist will take care of the catheter as well This was discussed with the daughter before transferring to [facility] (8) HTN (hypertension): Continue lisinopril, amlodipine, diuretics including bumetanide and spironolactone (9) A-fib: Currently in sinus rhythm Continue amiodarone Continue Coumadin 5mg daily Continue monitor PT/INR -INR is 2.0 has of 05/05/2021 (10) T2DM (type 2 diabetes mellitus): Holding home meds. Continue insulin (11) Sleep apnea: CPAP HS at home DVT Ppx: on Subq Lovenox while INR not at goal Code status: FULL PCP: Haim Dispo: Waiting for placement to rehab She'll be transferred to [facility] this afternoon Total Time Total Time Spent Total Time Spent (In Minutes): 40 minutes Discharge Plan Discharge Items Patient Disposition: Transfer Inpatient Rehab Fac Reason For Visit: AMS, HYPOTENSION Discharge Diagnosis: Septic shock, pneumonia, status post cardiac arrest, SAJAN on CKD, A. fib on Coumadin, recent placement of left ureteral stent Condition on Discharge: Fair Activity: As commented below Activity Comment: Will need continued PT and OT Non-emergency contact: Primary Care Provider Call non-emergency contact if: you have any medication questions and your symptoms worsen Follow-up/Referrals: Micah Whitmore MD [Primary Care Provider] - (Please make an appointment with your primary care provider within 7 days following discharge from the facility) Diet: Carb Consistent or DM2 Diet Texture: Easy to Chew Addtl Attending Provider Instructions: Please take precautions to avoid fall Please take your medications as advised Continue PT and OT You need to make an appointment with your urologist within 7 days-Dr Song Edwards Pending Studies at Discharge: No Stand-Alone Forms: My [facility] Skilled Items Patient informed of condition?: Yes DNR: No Discharge Level of Care: Acute rehab Communicable Disease: No Discharge Prognosis: Stable Lines: None Urinary Catheter: Yes Medications and DC Order Prescriptions: Continued allopurinol [Zyloprim] 100 mg tablet 200 mg PO HS RF: 0 omeprazole 20 mg capsule,delayed release(DR/EC) 20 mg PO QAM RF: 0 spironolactone [Aldactone] 25 mg tablet 25 mg PO QAM RF: 0 bumetanide 1 mg tablet 1 mg PO QAM RF: 0 cholecalciferol (vitamin D3) 25 mcg (1,000 unit) capsule 1,000 unit PO QAM RF: 0 repaglinide 0.5 mg Tablet 0.5 mg PO TIDM RF: 0 rosuvastatin [Crestor] 10 mg Tablet 10 mg PO HS RF: 0 magnesium oxide 400 mg magnesium Capsule 400 mg PO QPM RF: 0 metoprolol tartrate 50 mg Tablet 50 mg PO BID Qty: 0 RF: 0 metformin 500 mg tablet extended release 24 hr 500 mg PO BID RF: 0 lisinopril 10 mg Tablet 10 mg PO QPM RF: 0 levothyroxine 112 mcg Tablet 112 mcg PO QAM RF: 0 phenazopyridine [Pyridium] 200 mg tablet 200 mg PO Q8H PRN (Reason: pain) Qty: 10 RF: 0 tamsulosin 0.4 mg capsule 0.4 mg PO HS Qty: 30 RF: 0 amlodipine 5 mg Tablet 5 mg PO BID RF: 0 amiodarone 200 mg tablet 200 mg PO QAM RF: 0 docusate sodium [Colace] 100 mg Capsule 100 mg PO BID RF: 0 multivitamin Tablet 1 tab PO QPM RF: 0 Changed warfarin 5 mg tablet 5 mg PO QPM Qty: 0 RF: 0 Discontinued tamsulosin [Flomax] 0.4 mg Capsule 0.4 mg PO HS RF: 0 ibuprofen 600 mg Tablet 600 mg PO BID RF: 0 levofloxacin 500 mg tablet 500 mg PO DAILY 3 Days Qty: 3 RF: 0 Discharge Orders: Discharge Order (Routine); Ordered 05/05/21 Ordered By: Shirley Barboza/Other Patient Handouts: Managing Type 2 Diabetes Admission Data Admit Date/Time: 04/22/21 17:13 Attending Provider: Shirley Wilson Admit Provider: Hugo Walton Primary Care Provider: Micah Whitmore Other Providers: Hugo Walton ; Burton Cervantes ; Octavio Arita ; [facility] Other Interventions: Discharge Summary Assessment (RN) Last Done: 05/05/21 15:03
[2021-05-09 12:14] LABS: Legionella Culture Source *BRONCH WASH LLL; Source BRONCH WASH LLL
== END 2021-05-05 15:45 | DRG 853 ==
LOC: ED 14:36 → SUATTDRO 17:13 → 1E 17:13 → 2N 05-04 18:09

== ENCOUNTER 2023-07-30 11:31 | Inpatient (IN) ==
[2023-07-30 12:27] LABS: Hematocrit (blood only) 34.2 % (37.0-47.0); Hemoglobin 11.1 g/dl (12.0-16.0); Mean Corpuscular Hemoglobin 29.3 pg (25.0-34.0); Mean Corpuscular Hgb Conc 32.5 g/dL (32.0-36.0); Mean Corpuscular Volume 90.2 fL (80.0-100.0); Nucleated RBC # (auto) 0.02 K/uL (0.00-0.12); Nucleated RBC % (auto) 0.1 %; Platelet Count 239 K/uL (130-400); RDW Coefficient of Variation 15.1 % (11.5-14.5); RDW Standard Deviation 50.1 fL (36.4-46.3); Red Blood Count 3.79 M/uL (4.20-5.40); White Blood Count 17.64 K/ul (4.8-10.8)
[2023-07-30 12:45] LABS: Pregnancy Test, Serum Negative (Negative)
[2023-07-30] MEDS: SODIUM CHLORIDE 0.9% 1,000 ML IV ONE ×2 (12:53→15:05)
[2023-07-30 13:03] LABS: Alanine Aminotransferase 160 U/L (7-52); Albumin Globulin Ratio 0.9 (0.9-2); Albumin Level 3.2 gm/dl (3.4-5.0); Alkaline Phosphatase 112 U/L (34-104); Anion Gap 15 (3-11); Aspartate Aminotransferase 139 U/L (13-39); BUN Creatinine Ratio 16.3 (10-20); Bilirubin,Total 0.7 mg/dl (0.2-1.0); Blood Urea Nitrogen 69 mg/dl (6-23); Calcium 8.8 mg/dl (8.6-10.3); Carbon Dioxide 20 mmol/L (21-32); Chloride 93 mmol/L (98-107); Est GFR (African American) 11.3 ml/min; Est GFR (Non-African American) 9.8 ml/min; Globulin 3.6 gm/dl (2.5-4.0); Glucose 206 mg/dl (70-99(Fasting)); Lipase 19 U/L (11-82); Potassium 4.9 mmol/L (3.5-5.1); Sodium 128 mmol/L (136-145); Total Protein 6.8 gm/dl (6.0-8.3)
[2023-07-30 14:00] LABS: ALC (manual) 0.18 K/uL (1.2-3.4); ANC (manual) 16.58 K/uL (1.4-6.5); Lymphocytes # (manual) 0.18 K/uL (1.2-3.4); Lymphocytes % (manual) 1 %; Metamyelocytes # (manual) 0.71 K/uL (0-0); Metamyelocytes % (manual) 4 %; Monocytes # (manual) 0.18 K/uL (0.11-0.59); Monocytes % (manual) 1 %; Neutrophils # (manual) 16.58 K/uL (1.40-6.50); Neutrophils % (manual) 94 %
--- NOTE | 2023-07-30 14:01 | CT Scan Report ---
CT OF THE ABDOMEN AND PELVIS WITHOUT CONTRAST CLINICAL HISTORY: Abdominal pain. Acute kidney injury. COMPARISON STUDY: CT of the abdomen and pelvis April 22, 2021. Renal ultrasound September 08, 2022. TECHNIQUE: Axial images of the abdomen and pelvis were obtained without IV contrast. Images were revi ewed in the axial, sagittal, and coronal planes. Automated exposure control was utilized for the gus dy. A dose lowering technique was utilized adhering to the principles of ALARA. FINDINGS: No pneumatosis, free air or portal venous gas is present. A 1.4 x 0.6 cm proximal right ure teral calculus results in mild right hydronephrosis. There is mild right perinephric stranding. A sma ll amount of gas within the right collecting system is noted. There is also a small amount of gas wit hin the nondependent aspect of the bladder. There are no left ureteral calculi. There is no left hydr onephrosis. Left renal calculi measure up to 8 mm. 5 mm right renal calculus. A cyst within the upper pole of the left kidney is incidentally noted. Evaluation of the remainder of the abdomen and pelvis is suboptimal on this unenhanced exam. Liver, spleen, adrenal glands and pancreas are unremarkable. There is no evidence for a bowel obstruction. Sigmoid diverticulosis is present without evidence for acute diverticulitis. There is trace fluid within the pelvis. No acute fractures are identified withi n visualized skeletal structures. There is no lymphadenopathy. The appendix is normal. IMPRESSION: 1. 1.4 x 0.6 cm proximal right ureteral calculus results in mild right hydronephrosis with perinephri c stranding. No additional ureteral calculi. Small amount of gas within the right collecting system. Given gas within the bladder, this gas could be due to recent procedure/instrumentation. An infectiou s etiology cannot be excluded and could be correlated with urinalysis. 2. Bilateral nephrolithiasis. No left hydronephrosis. 3. No bowel obstruction. Colonic diverticulosis. No evidence for acute diverticulitis. ACT 112: Negative or not required by law. Electronically signed by: Gui Berumen M.D. 07/30/2023 1:58 PM
[2023-07-30 14:06] LABS: Adenovirus PCR DETECTED (NotDetected); Bordetella parapertussis PCR Not Detected (NotDetected); Bordetella pertussis PCR Not Detected (NotDetected); Chlamydia pneumoniae PCR Not Detected (NotDetected); Coronavirus 229E PCR Not Detected (NotDetected); Coronavirus CoV-2 (COVID19)PCR Not Detected (NotDetected); Coronavirus HKU1 PCR Not Detected (NotDetected); Coronavirus NL63 PCR Not Detected (NotDetected); Coronavirus OC43PCR Not Detected (NotDetected); Human Metapneumovirus PCR Not Detected (NotDetected); Influenza A PCR Not Detected (NotDetected); Influenza B PCR Not Detected (NotDetected); Mycoplasma pneumoniae PCR Not Detected (NotDetected); Parainfluenza Virus 1 PCR Not Detected (NotDetected); Parainfluenza Virus 2 PCR Not Detected (NotDetected); Parainfluenza Virus 3 PCR Not Detected (NotDetected); Parainfluenza Virus 4 PCR Not Detected (NotDetected); Respiratory Syncytial VirusPCR Not Detected (NotDetected); Rhinovirus/Enterovirus PCR Not Detected (NotDetected)
--- NOTE | 2023-07-30 14:37 | Emergency Department Note ---
Impression & Plan Sepsis, Adenoviral infection, SAJAN (acute kidney injury), Kidney stones ED Provider Note NAME: Alex GRISSOM AGE: 73 SEX: F : 1950 ARRIVES VIA: Ambulance INFORMANT: Patient, ED PROVIDER(S): Marysol Urbina MD CHIEF COMPLAINT: Abdominal pain/nausea HPI: This is a 73-year-old female presenting for diarrhea, abdominal pain. Patient notes that over the past 3 days she has noted profuse diarrhea as well as diffuse abdominal pain. She notes that she has not had any fevers, has had chills. She notes that the diarrhea is profuse and persistent. She feels weak and had a fall due to weakness yesterday. No syncope. No chest pain or shortness of breath. No sinus congestion or cough. ROS: See above HPI for pertinent positives & negatives. A total of 10 systems reviewed and were otherwise negative. No recent antibiotics noted. PAST MEDICAL HISTORY: See Below PAST SURGICAL HISTORY: See Below FAMILY HISTORY: See Below SOCIAL HISTORY: See Below HOME MEDICATIONS: See Below ALLERGIES: See Below VITALS: See Below PHYSICAL EXAMINATION: General: Significant elevated BMI Head: Normocephalic and atraumatic Eyes: Normal inspection, extraocular muscles intact Ear, nose, throat: Normal external exam Neck: Normal range of motion Respiratory: lungs clear to auscultation bilaterally Cardiovascular: Regular rate/rhythm, no murmur GI: soft, nontender, no guarding or rebound, excoriation to the right pannus Extremities: nontender, moves all extremities Neuro: The patient awake and alert, appropriately conversive, no focal deficits, symmetric faces Skin: Warm, dry, and intact MEDICAL DECISION MAKING: This is a 73-year-old female presenting for diarrhea and abdominal pain. Patient required blood work, imaging including CT Abdo/pelvis, urinalysis and viral testing for current symptoms. Will give fluid resuscitation for profuse diarrhea as a method to rehydrate. -vital signs show mild hypotension. Will give fluids empirically -Patient's lab work is significant abnormal with a leukocytosis to over 17, anemia to 11.1, left shift, electrolyte abnormalities including hyponatremia, hypochloremia, slight anion gap. Creatinine is 4.23. Patient states that she is unclear of her previous baseline but it was around 3 previously. She has transaminitis of unclear etiology today. Patient is positive for adenovirus at this time. -Patient CT imaging is concerning for a large renal calculi in the right ureter. There is slight gas noted as well. Patient is had no instrumentation upon asking, last instrumentation was in April. -Will do ceftriaxone empirically despite no current urinalysis suggest infection -Patient continue to fluid resuscitate. Will discuss with urology -Patient required will ultimately require admission for SAJAN, large renal calculi, influenza B, electrolyte disturbance -Dr. Edwards, urology, is aware of the patient and her current clinical status with the large renal stone, SAJAN. States that patient should be n.p.o., and await urinalysis patient may get a stent tonight depending on her clinical status. -Urinalysis does reveal signs of infection, Dr. Edwards made aware. -Patient symptoms may be consistent with septic kidney stone -[facility] under Dr. Wilson. Differential diagnosis: SBO, viral syndrome, pyelonephritis, kidney stone, gastroenteritis, C. difficile, sepsis ER treatment provided: See below Diagnostics interpreted by me: ECG: ECG independently interpreted by me with normal sinus rhythm, rate of 100, left axis deviation, normal MN, normal QRS, normal QTc, no ST segment elevations consistent with STEMI criteria Cardiac Monitoring: An order was placed for continuous cardiac monitoring. The monitor shows a rate of 92 with sinus rhythm. Laboratory studies: As stated above and show below. Imaging studies: See below. Critical Care Note: I have personally spent 35 minutes of critical care time in the direct management of this patient. This includes bedside care, interpretation of diagnostic studies, and testing, discussion with consultants, patient, and family members, and other required patient management activities. This 35 minutes is in excess of all separately billable procedures. Past Med/Surg History Medical History (HFpEF) heart failure with preserved ejection fraction PAF (paroxysmal atrial fibrillation) Rotator cuff tear arthropathy of both shoulders Venous ulcer Complex renal cyst Pseudomonas infection Osteonecrosis MRSA infection Diabetic ulcer of left foot associated with diabetes mellitus due to underlying condition, with fat layer exposed Diabetic ulcer of right foot associated with diabetes mellitus due to underlying condition, with fat layer exposed PEA (Pulseless electrical activity) Nephrolithiasis Discitis of lumbosacral region Chronic venous insufficiency Osteoarthritis Anemia MRSA (methicillin resistant Staphylococcus aureus) From wound in 2017 - Per Infection Control (04/21/21) pt does not need to be on precautions at this time T2DM (type 2 diabetes mellitus) Hx of osteomyelitis Spine (02/2020) treated at [facility] with intermission coordinator antibiotics and oxycodone for pain management Sleep apnea CPAP Hypertension Hypothyroidism Morbid obesity CVA (cerebral vascular accident) Silent > Old infarct found on remote CT imaging (dating back to at least 2017) CKD stage 3 secondary to diabetes DM II (diabetes mellitus, type II), controlled NIDDM Dyslipidemia Gout hx Anemia Hx of basal cell carcinoma Gastric ulcer due to Helicobacter pylori hx Surgical History S/P ureteral stent placement S/P panniculectomy S/P ureteral stent placement History of cystoscopy History of cataract surgery S/P panniculectomy History of umbilical hernia repair (09/11/20) Umbilical Hernia Repair with Mesh - Pete Zafar DO, FACS History of cardioversion RASHID with cardioversion (02/07/20): MAC sedation at [facility] S/P debridement multiple abdominal debridements at [facility]. 08/2020 History of esophagogastroduodenoscopy (EGD) H/O repair of rotator cuff right H/O left knee surgery multiple knee arthroscopy on left H/O basal cell carcinoma excision Status post Mohs surgery History of carpal tunnel surgery History of arthroplasty of left knee Family History Mother Diabetes Heart disease Father Hypertension Stroke Other No family history of adverse response to anesthesia No pertinent family history Social History Smoking Status: Never smoker Second Hand Exposure: No; Do You Dip or Chew Tobacco: No; Hx Alcohol Use: Yes Alcohol type: wine Hx Substance Use: No Preferred Language: Somali Communication Ability: Effective Hearing Ability: Normal Director Of Athletics Required: No Beliefs That Will Affect Care: None marital status: / Current Living Situation: Alone Current Living Situation Comment: [employer]. 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 How many Children do You have: 2 Feels Safe at Home: Yes Diet: diabetic during the past year weight has: decreased > 10 lbs Assistive Devices: Cane and Walker Allergies Allergies Allergy/AdvReac Type Severity Reaction Status Date / Time Penicillins Allergy Intermediate URTICARIA; Verified 07/30/23 16:09 PER PT, CAN TAKE AMOXICILLIN erythromycin base AdvReac Intermediate GI UPSET Verified 07/30/23 16:09 Home Meds Home Medications Medication Instructions Recorded Confirmed allopurinol 100 mg tablet 200 mg PO HS 02/15/18 07/30/23 (Zyloprim) omeprazole 20 mg capsule,delayed 20 mg PO QAM 02/15/18 07/30/23 release spironolactone 25 mg tablet 25 mg PO QAM 02/15/18 07/30/23 (Aldactone) magnesium oxide 400 mg PO QPM 02/03/20 07/30/23 rosuvastatin 10 mg tablet (Crestor) 10 mg PO HS 02/03/20 07/30/23 bumetanide 1 mg tablet 1 mg PO QAM 06/20/20 07/30/23 cholecalciferol (vitamin D3) 25 1,000 unit PO QAM 06/20/20 07/30/23 mcg (1,000 unit) capsule metformin 500 mg tablet,extended 500 mg PO QAM 06/20/20 07/30/23 release 24 hr amiodarone 200 mg tablet 200 mg PO QAM 09/04/20 07/30/23 amlodipine 5 mg tablet 5 mg PO BID 09/04/20 07/30/23 multivitamin 1 tab PO QPM 03/10/21 07/30/23 levothyroxine 112 mcg tablet 112 mcg PO QAM 04/14/21 07/30/23 lisinopril 10 mg tablet 10 mg PO QPM 04/14/21 07/30/23 acetaminophen 500 mg tablet 500 mg PO TID PAIN/FEVER 07/15/21 07/30/23 (Tylenol Extra Strength) iron,carbonyl 65 mg-vitamin C 125 1 tab PO MOWEFR 07/30/23 07/30/23 mg tablet,delayed release (Vitron-C) repaglinide 0.5 mg tablet 0.5 mg PO TID 07/30/23 07/30/23 semaglutide 1 mg/dose (4 mg/3 mL) 1 mg subcut WK 07/30/23 07/30/23 subcutaneous pen injector (Ozempic) warfarin 5 mg tablet See Rx Instructions .Route .COMPLEX 07/30/23 07/30/23 Previous Rx's Medication Instructions Recorded metoprolol tartrate 50 mg tablet 50 mg PO BID #0 tabs 02/09/20 Results & Data (ED) Vital Signs Vital Signs - 24 hr 07/30/23 11:41 07/30/23 12:09 07/30/23 12:16 Temperature 36.2 C L Temperature Source Temporal Artery Scan Pulse Rate 100 H 96 H Pulse Rate [Apical] 74 Respiratory Rate 18 20 Respiratory Effort / Characteristics Non-Labored Spontaneous Labored Short of Breath SOB on Exertion Respiratory Depth Normal Normal Respiratory Pattern Blood Pressure 90/57 L Blood Pressure [Left Arm] 94/51 L Blood Pressure Mean 68 Blood Pressure Mean [Left Arm] 65 Blood Pressure Position [Left Arm] Lying Pulse Oximetry 93 91 Oxygen Delivery Method Room Air Room Air Sepsis Recent Fever Within 48 Hours No Sepsis New/Unexplained Change in Mental Status No Sepsis Action Taken by Nursing No Action Required 07/30/23 13:58 07/30/23 16:16 Temperature Temperature Source Pulse Rate 99 H Pulse Rate [Apical] 92 H Respiratory Rate 20 Respiratory Effort / Characteristics Spontaneous Labored Short of Breath Respiratory Depth Respiratory Pattern Regular Blood Pressure Blood Pressure [Left Arm] 115/65 Blood Pressure Mean Blood Pressure Mean [Left Arm] 81 Blood Pressure Position [Left Arm] Lying Pulse Oximetry 95 Oxygen Delivery Method Room Air Sepsis Recent Fever Within 48 Hours Sepsis New/Unexplained Change in Mental Status Sepsis Action Taken by Nursing Laboratory Data 08/01/23 04:00 08/01/23 04:00 Lab Results 07/30/23 07/30/23 07/30/23 Range/Units 11:51 12:56 15:26 WBC 17.64 H (4.8-10.8) K/ul RBC 3.79 L (4.20-5.40) M/uL Hgb 11.1 L (12.0-16.0) g/dl Hct 34.2 L (37.0-47.0) % MCV 90.2 (80.0-100.0) fL MCH 29.3 (25.0-34.0) pg MCHC 32.5 (32.0-36.0) g/dL RDW Std Deviation 50.1 H (36.4-46.3) fL RDW Coeff of Yvette 15.1 H (11.5-14.5) % Plt Count 239 (130-400) K/uL MPV 11.0 (9.4-12.4) fL Absolute Nucleated RBC 0.02 (0.00-0.12) K/uL Nucleated RBC % (auto) 0.1 % Neutrophils % (Manual) 94 % Lymphocytes % (Manual) 1 % Monocytes % (Manual) 1 % Metamyelocytes % (Man) 4 % Neutrophils # (Manual) 16.58 H (1.40-6.50) K/uL Total Absolute Neuts 16.58 H (1.4-6.5) K/uL Lymphocytes # (Manual) 0.18 L (1.2-3.4) K/uL Total Abs Lymphocytes 0.18 L (1.2-3.4) K/uL Monocytes # (Manual) 0.18 (0.11-0.59) K/uL Metamyelocytes # (Man) 0.71 H (0-0) K/uL PT 40.9 H (9.0-12.0) Seconds INR 4.1 H (0.9-1.1) Sodium 128 L (136-145) mmol/L Potassium 4.9 (3.5-5.1) mmol/L Chloride 93 L (98-107) mmol/L Carbon Dioxide 20 L (21-32) mmol/L Anion Gap 15 H (3-11) BUN 69 H (6-23) mg/dl Creatinine 4.23 H (0.6-1.2) mg/dl Est Cr Clr Drug Dosing Not Reportable Est GFR ( Amer) 11.3 ml/min Est GFR (Non-Af Amer) 9.8 ml/min BUN/Creatinine Ratio 16.3 (10-20) Glucose 206 H (70-99(Fasting)) mg/dl Calcium 8.8 (8.6-10.3) mg/dl Total Bilirubin 0.7 (0.2-1.0) mg/dl AST 139 H (13-39) U/L ALT 160 H (7-52) U/L Alkaline Phosphatase 112 H (34-104) U/L Total Protein 6.8 (6.0-8.3) gm/dl Albumin 3.2 L (3.4-5.0) gm/dl Globulin 3.6 (2.5-4.0) gm/dl Albumin/Globulin Ratio 0.9 (0.9-2) Lipase 19 (11-82) U/L HCG, Qual Negative (Negative) Urine Color Dark Yellow Urine Appearance Turbid A (Clear) Urine pH 5.0 (4.5-7.5) Ur Specific [place] 1.020 (1.000-1.030) Urine Protein 3+ H (Negative) Urine Glucose (UA) Negative (Negative) Urine Ketones Trace H (Negative) Urine Blood 2+ H (Negative) Urine Nitrite Negative (Negative) Urine Bilirubin 1+ H (Negative) Urine Urobilinogen Negative (Negative) Ur Leukocyte Esterase 2+ H (Negative) Urine WBC (Auto) >30 H (0-5) /hpf Urine RBC (Auto) 0-4 (0-4) /hpf U Hyaline Cast (Auto) 1-5 (0-5) /lpf U Epithel Cells (Auto) 10-20 H (0-5) /lpf Urine Bacteria (Auto) 1+ H (Negative) Adenovirus (PCR) DETECTED A (NotDetected) B. pertussis DNA (PCR) Not Detected (NotDetected) B.parapertussis DNA PCR Not Detected (NotDetected) C. pneumoniae DNA (PCR) Not Detected (NotDetected) Coronavirus OC43 (PCR) Not Detected (NotDetected) Coronavirus HKU1 (PCR) Not Detected (NotDetected) Coronavirus 229E (PCR) Not Detected (NotDetected) SARS-CoV-2 (PCR) Not Detected (NotDetected) Coronavirus NL63 (PCR) Not Detected (NotDetected) Enterobacterales (PCR) (NotDetected) E. coli (PCR) (NotDetected) Human Metapneumovir PCR Not Detected (NotDetected) Influenza Type A (PCR) Not Detected (NotDetected) Influenza Type B (PCR) Not Detected (NotDetected) M. pneumoniae (PCR) Not Detected (NotDetected) Parainfluenza 1 (PCR) Not Detected (NotDetected) Parainfluenza 2 (PCR) Not Detected (NotDetected) Parainfluenza 3 (PCR) Not Detected (NotDetected) Parainfluenza 4 (PCR) Not Detected (NotDetected) RSV (PCR) Not Detected (NotDetected) Entero/Rhino (PCR) Not Detected (NotDetected) mcr-1 Colistin Res Gene PCR (NotDetected) blaIMP Car res Gene PCR (NotDetected) KPC-Carbap Res Gene PCR (NotDetected) blaNDM Car Res Gene PCR (NotDetected) OXA-48 Carbapenem Resis Gene (PCR) (NotDetected) blaVIM Car Res Gene PCR (NotDetected) CTX-M Gene Resistance (PCR) (NotDetected) Bld Cult ID Panel PCR (NotDetected) 07/30/23 Range/Units 15:45 WBC (4.8-10.8) K/ul RBC (4.20-5.40) M/uL Hgb (12.0-16.0) g/dl Hct (37.0-47.0) % MCV (80.0-100.0) fL MCH (25.0-34.0) pg MCHC (32.0-36.0) g/dL RDW Std Deviation (36.4-46.3) fL RDW Coeff of Yvette (11.5-14.5) % Plt Count (130-400) K/uL MPV (9.4-12.4) fL Absolute Nucleated RBC (0.00-0.12) K/uL Nucleated RBC % (auto) % Neutrophils % (Manual) % Lymphocytes % (Manual) % Monocytes % (Manual) % Metamyelocytes % (Man) % Neutrophils # (Manual) (1.40-6.50) K/uL Total Absolute Neuts (1.4-6.5) K/uL Lymphocytes # (Manual) (1.2-3.4) K/uL Total Abs Lymphocytes (1.2-3.4) K/uL Monocytes # (Manual) (0.11-0.59) K/uL Metamyelocytes # (Man) (0-0) K/uL PT (9.0-12.0) Seconds INR (0.9-1.1) Sodium (136-145) mmol/L Potassium (3.5-5.1) mmol/L Chloride (98-107) mmol/L Carbon Dioxide (21-32) mmol/L Anion Gap (3-11) BUN (6-23) mg/dl Creatinine (0.6-1.2) mg/dl Est Cr Clr Drug Dosing Est GFR ( Amer) ml/min Est GFR (Non-Af Amer) ml/min BUN/Creatinine Ratio (10-20) Glucose (70-99(Fasting)) mg/dl Calcium (8.6-10.3) mg/dl Total Bilirubin (0.2-1.0) mg/dl AST (13-39) U/L ALT (7-52) U/L Alkaline Phosphatase (34-104) U/L Total Protein (6.0-8.3) gm/dl Albumin (3.4-5.0) gm/dl Globulin (2.5-4.0) gm/dl Albumin/Globulin Ratio (0.9-2) Lipase (11-82) U/L HCG, Qual (Negative) Urine Color Urine Appearance (Clear) Urine pH (4.5-7.5) Ur Specific [place] (1.000-1.030) Urine Protein (Negative) Urine Glucose (UA) (Negative) Urine Ketones (Negative) Urine Blood (Negative) Urine Nitrite (Negative) Urine Bilirubin (Negative) Urine Urobilinogen (Negative) Ur Leukocyte Esterase (Negative) Urine WBC (Auto) (0-5) /hpf Urine RBC (Auto) (0-4) /hpf U Hyaline Cast (Auto) (0-5) /lpf U Epithel Cells (Auto) (0-5) /lpf Urine Bacteria (Auto) (Negative) Adenovirus (PCR) (NotDetected) B. pertussis DNA (PCR) (NotDetected) B.parapertussis DNA PCR (NotDetected) C. pneumoniae DNA (PCR) (NotDetected) Coronavirus OC43 (PCR) (NotDetected) Coronavirus HKU1 (PCR) (NotDetected) Coronavirus 229E (PCR) (NotDetected) SARS-CoV-2 (PCR) (NotDetected) Coronavirus NL63 (PCR) (NotDetected) Enterobacterales (PCR) DETECTED A (NotDetected) E. coli (PCR) DETECTED A (NotDetected) Human Metapneumovir PCR (NotDetected) Influenza Type A (PCR) (NotDetected) Influenza Type B (PCR) (NotDetected) M. pneumoniae (PCR) (NotDetected) Parainfluenza 1 (PCR) (NotDetected) Parainfluenza 2 (PCR) (NotDetected) Parainfluenza 3 (PCR) (NotDetected) Parainfluenza 4 (PCR) (NotDetected) RSV (PCR) (NotDetected) Entero/Rhino (PCR) (NotDetected) mcr-1 Colistin Res Gene PCR Not Detected (NotDetected) blaIMP Car res Gene PCR Not Detected (NotDetected) KPC-Carbap Res Gene PCR Not Detected (NotDetected) blaNDM Car Res Gene PCR Not Detected (NotDetected) OXA-48 Carbapenem Resis Gene (PCR) Not Detected (NotDetected) blaVIM Car Res Gene PCR Not Detected (NotDetected) CTX-M Gene Resistance (PCR) Not Detected (NotDetected) Bld Cult ID Panel PCR See PCR Comment (NotDetected) Administered Medications Acetaminophen (Acetaminophen 325 Mg Tab) 650 mg PO Q4H PRN PRN Reason: mild pain or fever Stop: 08/30/23 19:12 Last Admin: 08/01/23 08:12 Dose: 650 mg Documented By: Admin: 07/31/23 19:33 Dose: 650 mg Documented By: RAEANN Daptomycin 450 mg/ Syringe 9 mls @ 4.5 mls/min IV Q48H [facility]; Protocol Stop: 08/02/23 06:01 Last Admin: 07/31/23 06:08 Dose: 4.5 mls/min Documented By: LEE(2) Norepinephrine Bitartrate (Levophed/D5w) 4 mg in 250 mls @ 24.581 mls/hr IV .[id number] [facility]; Protocol Stop: 08/30/23 06:44 Last Titration: 08/01/23 08:44 Dose: 0.05 mcg/kg/min, 24.6 mls/hr Documented By: Titration: 08/01/23 08:20 Dose: 0.03 mcg/kg/min, 14.7 mls/hr Documented By: Titration: 08/01/23 07:35 Dose: 0.05 mcg/kg/min, 24.6 mls/hr Documented By: Titration: 08/01/23 06:48 Dose: 0.07 mcg/kg/min, 34.4 mls/hr Documented By: MNM Co-signed By: KJL Admin: 08/01/23 05:08 Dose: Not Given Documented By: Titration: 08/01/23 04:40 Dose: 0.07 mcg/kg/min, 34.4 mls/hr Documented By: Titration: 08/01/23 03:30 Dose: 0.09 mcg/kg/min, 44.2 mls/hr Documented By: Admin: 08/01/23 02:56 Dose: 0.11 mcg/kg/min, 54.1 mls/hr Documented By: MNM Co-signed By: TMG Titration: 08/01/23 02:56 Dose: Infused Documented By: MNM Co-signed By: TMG Admin: 07/31/23 23:05 Dose: 0.11 mcg/kg/min, 54.1 mls/hr Documented By: MNM Co-signed By: TMG Titration: 07/31/23 23:05 Dose: Infused Documented By: MNM Co-signed By: TMG Titration: 07/31/23 21:18 Dose: 0.11 mcg/kg/min, 54.1 mls/hr Documented By: Titration: 07/31/23 21:07 Dose: 0.09 mcg/kg/min, 44.2 mls/hr Documented By: Admin: 07/31/23 20:13 Dose: Not Given Documented By: Titration: 07/31/23 19:34 Dose: 0.07 mcg/kg/min, 34.4 mls/hr Documented By: Admin: 07/31/23 16:45 Dose: 0.05 mcg/kg/min, 24.6 mls/hr Documented By: WS Co-signed By: CB Titration: 07/31/23 14:30 Dose: Infused Documented By: Titration: 07/31/23 14:15 Dose: 0.05 mcg/kg/min, 24.6 mls/hr Documented By: Titration: 07/31/23 13:31 Dose: 0.08 mcg/kg/min, 39.3 mls/hr Documented By: Titration: 07/31/23 12:44 Dose: 0.1 mcg/kg/min, 49.2 mls/hr Documented By: Titration: 07/31/23 11:41 Dose: 0.12 mcg/kg/min, 59 mls/hr Documented By: Titration: 07/31/23 11:09 Dose: 0.14 mcg/kg/min, 68.8 mls/hr Documented By: Admin: 07/31/23 10:07 Dose: 0.16 mcg/kg/min, 78.7 mls/hr Documented By: JOSHUA Co-signed By: LEE Titration: 07/31/23 10:07 Dose: Infused Documented By: JOSHUA Co-signed By: LEE Titration: 07/31/23 07:49 Dose: 0.16 mcg/kg/min, 78.7 mls/hr Documented By: Titration: 07/31/23 07:40 Dose: 0.18 mcg/kg/min, 88.5 mls/hr Documented By: Admin: 07/31/23 07:10 Dose: 0.2 mcg/kg/min, 98.3 mls/hr Documented By: FAVIAN Co-signed By: [facility] Pantoprazole Sodium 40 mg/ (Syringe) 10 mls @ 5 mls/min IV DAILY@1100 [facility] Stop: 08/30/23 10:59 Last Admin: 07/31/23 10:57 Dose: 5 mls/min Documented By: JOSHUA Insulin Aspart (Insulin Aspart Per Unit Charge) 0 units SC ACHS [facility] Stop: 08/29/23 20:59 Last Admin: 08/01/23 08:28 Dose: 8 units Documented By: LEE Co-signed By: RAF Admin: 07/31/23 20:20 Dose: 6 units Documented By: RAEANN Co-signed By: TIFFANY Admin: 07/31/23 16:46 Dose: 7 units Documented By: JOSHUA Co-signed By: RAF Admin: 07/31/23 12:45 Dose: 6 units Documented By: JOSHUA Co-signed By: LEE Admin: 07/31/23 08:59 Dose: Not Given Documented By: Admin: 07/30/23 21:11 Dose: 1 units Documented By: LEE(2) Co-signed By: DM Insulin Aspart (Insulin Aspart Per Unit Charge) 0 units SC 0000,0400 [facility] Stop: 08/31/23 00:00 Last Admin: 08/01/23 04:24 Dose: 4 units Documented By: RAEANN Co-signed By: ARR Admin: 08/01/23 00:29 Dose: 4 units Documented By: RAEANN Co-signed By: TIFFANY Levothyroxine Sodium (Levothyroxine Sodium 112 Mcg Tablet) 112 mcg PO DAILYBB [facility] Stop: 08/30/23 06:29 Last Admin: 08/01/23 05:16 Dose: 112 mcg Documented By: Admin: 07/31/23 10:57 Dose: 112 mcg Documented By: JOSHUA Rosuvastatin Calcium (Rosuvastatin Calcium 10 Mg Tab) 10 mg PO HS [facility] Stop: 08/29/23 20:59 Last Admin: 07/30/23 21:08 Dose: 10 mg Documented By: LEE(2) Discontinued Medications Acetaminophen (Acetaminophen 325 Mg Tab) 650 mg PO Q4H PRN PRN Reason: Pain or Fever Stop: 08/29/23 20:14 Last Admin: 07/30/23 20:33 Dose: 650 mg Documented By: LEE(2) Diatrizoate Meglumine (Diatrizoate Meglumine 30% 100ml Vial) 20 ml INSTIL UD ONE Stop: 07/30/23 19:14 Last Admin: 07/30/23 19:14 Dose: 20 ml Documented By: [id number] Sodium Chloride (Nss) 1,000 mls @ 999 mls/hr IV .Q1H1M ONE Stop: 07/30/23 13:39 Last Infusion: 07/30/23 15:06 Dose: Infused Documented By: Admin: 07/30/23 12:53 Dose: 999 mls/hr Documented By: AIDE Ceftriaxone Sodium (Rocephin) 2,000 mg in 50 mls @ 100 mls/hr IV NOW STA Stop: 07/30/23 15:03 Last Infusion: 07/30/23 16:40 Dose: Infused Documented By: Admin: 07/30/23 15:51 Dose: 100 mls/hr Documented By: AIDE Sodium Chloride (Nss) 1,000 mls @ 999 mls/hr IV .Q1H1M ONE Stop: 07/30/23 15:36 Last Infusion: 07/30/23 17:36 Dose: Infused Documented By: Admin: 07/30/23 15:05 Dose: 999 mls/hr Documented By: AIDE Cefepime HCl 2,000 mg/ Syringe 20 mls @ 5 mls/min IV ONE ONE Stop: 07/30/23 21:03 Last Admin: 07/30/23 21:08 Dose: 5 mls/min Documented By: LEE(2) Sodium Chloride (Nss) 1,000 mls @ 125 mls/hr IV .Q8H [facility] Stop: 08/29/23 20:14 Last Infusion: 07/31/23 08:19 Dose: Infused Documented By: Admin: 07/31/23 04:36 Dose: 125 mls/hr Documented By: LEE(2) Infusion: 07/31/23 04:27 Dose: Infused Documented By: LEE(2) Admin: 07/30/23 20:27 Dose: 125 mls/hr Documented By: LEE(2) Sodium Chloride (Nss) 500 mls @ 500 mls/hr IV .Q1H [facility] Stop: 07/31/23 05:59 Last Infusion: 07/31/23 06:14 Dose: Infused Documented By: LEE(2) Admin: 07/31/23 05:38 Dose: 500 mls/hr Documented By: JUANL(2) Acetaminophen (Ofirmev) 1,000 mg in 100 mls @ 400 mls/hr IV NOW STA Stop: 07/31/23 06:00 Last Infusion: 07/31/23 06:15 Dose: Infused Documented By: LEE(2) Admin: 07/31/23 05:56 Dose: 400 mls/hr Documented By: LEE(2) Sodium Chloride (Nss) 500 mls @ 500 mls/hr IV .Q1H [facility] Stop: 07/31/23 06:59 Last Infusion: 07/31/23 08:03 Dose: Infused Documented By: Admin: 07/31/23 06:15 Dose: 500 mls/hr Documented By: LEE(2) Meropenem 500 mg/ Syringe 10 mls @ 2 mls/min IV Q12H [facility]; Protocol Stop: 08/10/23 06:14 Last Admin: 08/01/23 05:16 Dose: 2 mls/min Documented By: Admin: 07/31/23 17:24 Dose: 2 mls/min Documented By: Admin: 07/31/23 06:17 Dose: 2 mls/min Documented By: LEE(2) Vasopressin 20 units/ Sodium (Chloride) 101 mls @ 12.12 mls/hr IV .Q8H20M [facility]; Protocol Stop: 08/30/23 07:14 Last Admin: 08/01/23 09:14 Dose: Not Given Documented By: Admin: 07/31/23 23:42 Dose: Not Given Documented By: Admin: 07/31/23 20:12 Dose: Not Given Documented By: Titration: 07/31/23 15:54 Dose: Infused Documented By: Admin: 07/31/23 07:21 Dose: 0.04 unit/min, 12.1 mls/hr Documented By: CLEMENTINA Co-signed By: RAEANN Phytonadione 2.5 mg/ Dextrose 50.25 mls @ 100.5 mls/hr IV ONE ONE Stop: 07/31/23 07:53 Last Infusion: 07/31/23 08:25 Dose: Infused Documented By: Admin: 07/31/23 07:36 Dose: 100.5 mls/hr Documented By: JOSHUA Parenteral Electrolytes (Plasma-Lyte A Ph 7.4) 1,000 mls @ 125 mls/hr IV .Q8H [facility]IKA Stop: 08/30/23 07:59 Last Infusion: 08/01/23 07:48 Dose: Infused Documented By: Admin: 08/01/23 06:30 Dose: 125 mls/hr Documented By: Infusion: 08/01/23 06:30 Dose: Infused Documented By: Admin: 07/31/23 23:06 Dose: 125 mls/hr Documented By: Infusion: 07/31/23 23:06 Dose: Infused Documented By: Admin: 07/31/23 16:46 Dose: 125 mls/hr Documented By: Infusion: 07/31/23 15:55 Dose: Infused Documented By: Admin: 07/31/23 07:55 Dose: 125 mls/hr Documented By: JOSHUA Magnesium Sulfate/Dextrose (Magnesium Sulfate / D5w) 1 gm in 100 mls @ 50 mls/hr IV Q2H MONIKA Stop: 07/31/23 14:59 Last Infusion: 07/31/23 14:58 Dose: Infused Documented By: Admin: 07/31/23 12:48 Dose: 50 mls/hr Documented By: Infusion: 07/31/23 12:48 Dose: Infused Documented By: Admin: 07/31/23 11:08 Dose: 50 mls/hr Documented By: Infusion: 07/31/23 11:08 Dose: Infused Documented By: Admin: 07/31/23 09:30 Dose: 50 mls/hr Documented By: JOSHUA Insulin Aspart (Insulin Aspart Per Unit Charge) 5 units SC ONE ONE Stop: 07/31/23 17:16 Last Admin: 07/31/23 17:25 Dose: 5 units Documented By: JOSHUA Co-signed By: LEE Insulin Glargine (Lantus Per Unit Charge) 10 units SC ONE ONE Stop: 07/31/23 20:31 Last Admin: 07/31/23 20:59 Dose: 10 units Documented By: RAEANN Co-signed By: TIFFANY Insulin Glargine (Lantus Per Unit Charge) 10 units SC 0900 ONE Stop: 08/01/23 09:01 Last Admin: 08/01/23 09:14 Dose: 10 units Documented By: LEE Co-signed By: JOSHUA Metoprolol Tartrate (Metoprolol Tartrate 50 Mg Tab) 50 mg PO BID MONIKA Stop: 08/29/23 20:59 Last Admin: 07/30/23 21:08 Dose: 50 mg Documented By: LEE(2) Miscellaneous (Patient's Weight Needed) 1 each N/A Q2H MONIKA Stop: 08/29/23 17:14 Last Admin: 07/31/23 09:01 Dose: Not Given Documented By: JOSHUA Norepinephrine Bitartrate (Norepinephrine/D5w 4 Mg/250 Ml) Confirm Administered Dose 4 mg IV .STK-MED ONE Stop: 07/31/23 06:34 Last Admin: 07/31/23 07:20 Dose: 4 mg Documented By: CLEMENTINA Pantoprazole Sodium (Pantoprazole 40 Mg Tab) 40 mg PO QAM MONIKA Stop: 08/30/23 08:59 Last Admin: 07/31/23 11:41 Dose: Not Given Documented By: JOSHUA Potassium Chloride (Potassium Chloride Crtab 20 Meq Tabcr) 20 meq PO NOW STA Stop: 08/01/23 04:56 Last Admin: 08/01/23 05:15 Dose: 20 meq Documented By: RAEANN Sodium Bicarbonate (Sodium Bicarb 8.4% Inj 50 Meq/50 Ml Syr) 50 meq IV NOW STA Stop: 07/31/23 17:10 Last Admin: 07/31/23 17:24 Dose: 50 meq Documented By: JOSHUA Imaging Data Radiologist's Impression: Abdomen/Pelvis CT 07/30/23 13:06 CT OF THE ABDOMEN AND PELVIS WITHOUT CONTRAST CLINICAL HISTORY: Abdominal pain. Acute kidney injury. COMPARISON STUDY: CT of the abdomen and pelvis April 22, 2021. Renal ultrasound September 08, 2022. TECHNIQUE: Axial images of the abdomen and pelvis were obtained without IV contrast. Images were reviewed in the axial, sagittal, and coronal planes. Automated exposure control was utilized for the study. A dose lowering technique was utilized adhering to the principles of ALARA. FINDINGS: No pneumatosis, free air or portal venous gas is present. A 1.4 x 0.6 cm proximal right ureteral calculus results in mild right hydronephrosis. There is mild right perinephric stranding. A small amount of gas within the right collecting system is noted. There is also a small amount of gas within the nondependent aspect of the bladder. There are no left ureteral calculi. There is no left hydronephrosis. Left renal calculi measure up to 8 mm. 5 mm right renal calculus. A cyst within the upper pole of the left kidney is incidentally noted. Evaluation of the remainder of the abdomen and pelvis is suboptimal on this unenhanced exam. Liver, spleen, adrenal glands and pancreas are unremarkable. There is no evidence for a bowel obstruction. Sigmoid diverticulosis is present without evidence for acute diverticulitis. There is trace fluid within the pelvis. No acute fractures are identified within visualized skeletal structures. There is no lymphadenopathy. The appendix is normal. IMPRESSION: 1. 1.4 x 0.6 cm proximal right ureteral calculus results in mild right hydronephrosis with perinephric stranding. No additional ureteral calculi. Small amount of gas within the right collecting system. Given gas within the bladder, this gas could be due to recent procedure/instrumentation. An infectious etiology cannot be excluded and could be correlated with urinalysis. 2. Bilateral nephrolithiasis. No left hydronephrosis. 3. No bowel obstruction. Colonic diverticulosis. No evidence for acute diverticulitis. ACT 112: Negative or not required by law. Electronically signed by: Gui Berumen M.D. 07/30/2023 1:58 PM Discharge Plan Visit Data Chief Complaint: GI Assessment Stated Complaint: WEAKNESS, DIARRHEA ED Provider: Marysol Urbina Discharge Problem: Sepsis, Adenoviral infection, SAJAN (acute kidney injury), Kidney stones Patient Disposition: Admitted As Inpatient Discharge Instructions Interventions: ED Discharge Assessment Last Done: 07/30/23 18:09
[2023-07-30 15:42] LABS: Appearance Urine Turbid (Clear); Bacteria Urine Automated 1+ (Negative); Blood Urine 2+ (Negative); Color Urine Dark Yellow; Glucose Urine UA Negative (Negative); Ketones Urine Trace (Negative); Leukocyte Esterase Urine 2+ (Negative); Nitrite Urine Negative (Negative); Protein Urine 3+ (Negative); RBC Urine Automated 0-4 /hpf (0-4); Urobilinogen Urine Negative (Negative); WBC Urine Automated >30 /hpf (0-5)
[2023-07-30 15:49] LABS: Bilirubin Urine 1+ (Negative)
[2023-07-30] MEDS: cefTRIAXone SODIUM 2,000 MG/50 ML BAG IV STA (15:51)
--- NOTE | 2023-07-30 17:16 | Anesthesiology Consultation ---
Date of Service July 30, 2023 Assessment & Plan (1) Encounter for pre-operative examination: Chart Review Chart Review: Acceptable Risk for Surgery and Patient NOT seen in Pre Admission Testing Consults Requested none History Surgery Operation Date: 07/30/23 18:30 Proposed Procedures p Cystoscopy, Retrograde Pyelogram, Ureteral Stent Placement - Song Edwards, DO Height/Weight Height: 5 ft 2 in Allergies Allergy/AdvReac Type Severity Reaction Status Date / Time Penicillins Allergy Intermediate URTICARIA; Verified 07/30/23 16:09 PER PT, CAN TAKE AMOXICILLIN erythromycin base AdvReac Intermediate GI UPSET Verified 07/30/23 16:09 Medications Home Medications Medication Instructions Recorded Confirmed Last Taken allopurinol 100 mg tablet 200 mg PO HS 02/15/18 07/30/23 07/29/23 (Zyloprim) omeprazole 20 mg capsule,delayed 20 mg PO QAM 02/15/18 07/30/23 07/28/23 release spironolactone 25 mg tablet 25 mg PO QAM 02/15/18 07/30/23 04/19/21 (Aldactone) magnesium oxide 400 mg PO QPM 02/03/20 07/30/23 07/29/23 rosuvastatin 10 mg tablet (Crestor) 10 mg PO HS 02/03/20 07/30/23 07/29/23 metoprolol tartrate 50 mg tablet 50 mg PO BID #0 tabs 02/09/20 07/30/23 07/29/23 21:00 bumetanide 1 mg tablet 1 mg PO QAM 06/20/20 07/30/23 04/19/21 cholecalciferol (vitamin D3) 25 1,000 unit PO QAM 06/20/20 07/30/23 07/28/23 mcg (1,000 unit) capsule metformin 500 mg tablet,extended 500 mg PO QAM 06/20/20 07/30/23 07/28/23 release 24 hr amiodarone 200 mg tablet 200 mg PO QAM 09/04/20 07/30/23 07/28/23 amlodipine 5 mg tablet 5 mg PO BID 09/04/20 07/30/23 07/29/23 21:00 multivitamin 1 tab PO QPM 03/10/21 07/30/23 07/29/23 levothyroxine 112 mcg tablet 112 mcg PO QAM 04/14/21 07/30/23 07/28/23 lisinopril 10 mg tablet 10 mg PO QPM 04/14/21 07/30/23 07/29/23 acetaminophen 500 mg tablet 500 mg PO TID PAIN/FEVER 07/15/21 07/30/23 07/28/23 (Tylenol Extra Strength) iron,carbonyl 65 mg-vitamin C 125 1 tab PO MOWEFR 07/30/23 07/30/23 Unknown mg tablet,delayed release (Vitron-C) repaglinide 0.5 mg tablet 0.5 mg PO TID 07/30/23 07/30/23 Unknown semaglutide 1 mg/dose (4 mg/3 mL) 1 mg subcut WK 07/30/23 07/30/23 07/23/23 subcutaneous pen injector (Ozempic) warfarin 5 mg tablet See Rx Instructions .Route .COMPLEX 07/30/23 07/30/23 07/29/23 Past Medical History Medical History (Updated 07/30/23 @ 17:45 by LATRICE Acuna) (HFpEF) heart failure with preserved ejection fraction PAF (paroxysmal atrial fibrillation) Rotator cuff tear arthropathy of both shoulders Venous ulcer Complex renal cyst Pseudomonas infection Osteonecrosis MRSA infection Diabetic ulcer of left foot associated with diabetes mellitus due to underlying condition, with fat layer exposed Diabetic ulcer of right foot associated with diabetes mellitus due to underlying condition, with fat layer exposed PEA (Pulseless electrical activity) Nephrolithiasis Discitis of lumbosacral region Chronic venous insufficiency Osteoarthritis Anemia MRSA (methicillin resistant Staphylococcus aureus) From wound in 2017 - Per Infection Control (04/21/21) pt does not need to be on precautions at this time T2DM (type 2 diabetes mellitus) Hx of osteomyelitis Spine (02/2020) 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 antibiotics and oxycodone for pain management Sleep apnea CPAP Hypertension Hypothyroidism Morbid obesity CVA (cerebral vascular accident) Silent > Old infarct found on remote CT imaging (dating back to at least 2017) CKD stage 3 secondary to diabetes DM II (diabetes mellitus, type II), controlled NIDDM Dyslipidemia Gout hx Anemia Hx of basal cell carcinoma Gastric ulcer due to Helicobacter pylori hx Exercise / Class Metabolic Activity II 4-5 Yardwork/Stairs/Walk up hill Past Family History Family History Mother Diabetes Heart disease Father Hypertension Stroke Other No family history of adverse response to anesthesia No pertinent family history Past Surgical History Surgical History S/P ureteral stent placement S/P panniculectomy S/P ureteral stent placement History of cystoscopy History of cataract surgery S/P panniculectomy History of umbilical hernia repair (09/11/20) Umbilical Hernia Repair with Mesh - Pete Zafar DO, FACS History of cardioversion RASHID with cardioversion (02/07/20): MAC sedation at [facility] S/P debridement multiple abdominal debridements at [facility]. 08/2020 History of esophagogastroduodenoscopy (EGD) H/O repair of rotator cuff right H/O left knee surgery multiple knee arthroscopy on left H/O basal cell carcinoma excision Status post Mohs surgery History of carpal tunnel surgery History of arthroplasty of left knee Social History Smoking Status: Never smoker Do You Dip or Chew Tobacco: No Hx Alcohol Use: Yes Alcohol type: wine alcohol intake frequency: holidays/special occasions only Hx Substance Use: No substance use type: does not use Physical Exam Vital Signs Last Vital Signs Temp 36.2 C L 07/30/23 11:41 Pulse 99 H 07/30/23 17:23 Resp 20 07/30/23 17:23 BP 107/67 07/30/23 17:23 Pulse Ox 91 07/30/23 17:23 O2 Del Method Room Air 07/30/23 18:09 Testing Laboratory Results 07/30/23 11:51 07/30/23 11:51 Urine Color Dark Yellow 07/30/23 15:26 Urine Appearance Turbid (Clear) A 07/30/23 15:26 Urine pH 5.0 (4.5-7.5) 07/30/23 15:26 Ur Specific [place] 1.020 (1.000-1.030) 07/30/23 15:26 Urine Protein 3+ (Negative) H 07/30/23 15:26 Urine Glucose (UA) Negative (Negative) 07/30/23 15:26 Urine Ketones Trace (Negative) H 07/30/23 15:26 Urine Nitrite Negative (Negative) 07/30/23 15:26 Ur Leukocyte Esterase 2+ (Negative) H 07/30/23 15:26 Urine WBC (Auto) >30 /hpf (0-5) H 07/30/23 15:26 Urine RBC (Auto) 0-4 /hpf (0-4) 07/30/23 15:26 U Hyaline Cast (Auto) 1-5 /lpf (0-5) 07/30/23 15:26 U Epithel Cells (Auto) 10-20 /lpf (0-5) H 07/30/23 15:26 Urine Bacteria (Auto) 1+ (Negative) H 07/30/23 15:26 +adenovirus Electrocardiogram Date: 07/30/23 HR 100. Normal sinus rhythm Left axis deviation Anterior infarct (cited on or before 22-APR-2021) Abnormal ECG When compared with ECG of 22-APR-2021 15:59, Questionable change in initial forces of Anterior leads
[2023-07-30] MEDS ORDERED: fentaNYL citrate PF 100 MCG/2 ML VIAL ONE (17:21)
--- NOTE | 2023-07-30 17:47 | Communication Note ---
Date of Service: July 30, 2023 Attending addendum: Patient was seen and examined in the emergency room She has been complaining of weakness, shaking and abdominal pain with nausea and diarrhea Denies any chest pain and her palpitation, no shortness of breath, fever and or chills On examination Lying in bed with acute distress secondary to anxiety and tremors involving the hands Hemodynamically stable Chest-clear to auscultate bilaterally Heart-S1, S2 regular Abdomen-mildly distended and tender, tender right renal angle, bowel sound present Extremities chronic skin changes-, no edema [employer]-alert, awake and oriented x 3 Her admission labs, imaging studies and EKG reviewed Has significant SAJAN with right obstructive ureteric stone and hydronephrosis-may need nephrology evaluation if kidney function does not improve following cystoscopic evaluation Has been started on intravenous cefepime-received a dose of ceftriaxone in the emergency room Will need to give adequate amount of intravenous fluid with normal saline and monitor. Will have cystoscopy with retrograde pyelogram and ureteral stent placement on the right side by urologist this evening Agree with assessment and plan as outlined above by Luz Marina Wilson
--- NOTE | 2023-07-30 17:51 | History & Physical Report ---
Date of Service July 30, 2023 Assessment & Plan (1) Sepsis: (2) UTI (urinary tract infection): (3) Hydronephrosis with renal and ureteral calculous obstruction: Plan: Admit to telemetry Patient presenting from home with reports of profuse diarrhea x 3 days. Reports she returned home from a cruise 11 days ago. In the ED, WBC 17 K, mild tachycardia. Afebrile, BP stable. Lactate pending. UA suggestive of UTI. CT ABD/pelvis showing 1.4 x 0.6 cm proximal right ureteral calculus results in mild right hydronephrosis with perinephric stranding. S/p ceftriaxone in the ED, given history of Pseudomonas, will continue with cefepime. Check MRSA nasal swab and if positive will add daptomycin (in favor of Vanco given SAJAN) Urology contacted by ED, planning on cystoscopy this evening Follow urine and blood cultures (4) Adenovirus infection: (5) Diarrhea: Plan: Bio fire positive for adenovirus Will also check stool studies and C. difficile Continue supportive care (6) SAJAN (acute kidney injury): (7) CKD (chronic kidney disease), stage III: Plan: Creatinine 4.2, baseline ~1.1 Secondary to dehydration from severe diarrhea and also obstructing renal calculi IVF, follow renal functions Nephrology consult if not improving (8) PAF (paroxysmal atrial fibrillation): Plan: Rhythm controlled on amiodarone, rate controlled on metoprolol Anticoagulated on Coumadin, INR pending (9) (HFpEF) heart failure with preserved ejection fraction: Plan: Echo 01/2023-EF 55 to 59%, moderate aortic stenosis, mild tricuspid regurgitation Volume status acceptable, holding diuretics due to SAJAN/sepsis, resume as able (10) Type II diabetes mellitus: Plan: Hgb A1c 6.3 07/2023 Hold oral agents and Ozempic and utilize NovoLog per protocol while hospitalized (11) Gout: Plan: Hold allopurinol for now due to SAJAN (12) HTN (hypertension): Plan: Continue metoprolol, holding lisinopril and amlodipine due to sepsis/SAJAN, resume as able (13) Hypothyroid: Plan: Chronic, stable Continue levothyroxine (14) Sleep apnea: Plan: CPAP as per home settings DVT PROPHYLAXIS On Coumadin, SCDs when INR <2.0 Patient seen in collaboration with Dr. Wilson. I spent a total of 75 minutes coordinating, documenting, and providing care for this patient excluding time spent in the performance of separately billed services. This included personally reviewing all current laboratories and imaging studies, medication reconciliation, outpatient chart review, and discussion with specialists. History of Present Illness Chief Complaint: Diarrhea, generalized weakness Primary Care Provider: Micah Whitmore MD 73-year-old female with PMH DM type II, CKD stage III, gout, HLD, hypothyroidism, EDYTA on CPAP, paroxysmal atrial fibrillation on amiodarone and Coumadin, HTN, GERD, obesity, history of CVA, and other problems listed below who presents to the ED for evaluation of diarrhea and generalized weakness. History is obtained from the patient and review of outpatient PCP, nephrology, cardiology records. Patient reports episodes of profuse diarrhea for the past 3 days. Reports that she returned home from a cruise about 11 days ago. Patient reports multiple, uncontrolled episodes of diarrhea. Described as watery and mucousy. Denies bright red bleeding per rectum and dark tarry stools. She reports that she has had a poor appetite however has been able to keep liquids down. She denies nausea and vomiting. No fevers or chills. Denies abdominal pain. No chest pain or shortness of breath. Denies lightheadedness, dizziness, diaphoresis, syncopal events. Reports a mechanical fall yesterday. She called her neighbor who helped her up from the ground. No urinary symptoms. In the ED, patient is slightly tachycardic, otherwise hemodynamically stable. Labs show WBC 17 K, Na+ 128, creatinine 4.2, transaminitis is noted. UA is suggestive of UTI. Bio fire positive for adenovirus. CT ABD/pelvis shows 1.4 x 0.6 cm proximal right ureteral calculus results in mild right hydronephrosis with perinephric stranding. Patient was given IV ceftriaxone and IVF. Urology was contacted by ED provider. Allergies Allergy/AdvReac Type Severity Reaction Status Date / Time Penicillins Allergy Intermediate URTICARIA; Verified 07/30/23 16:09 PER PT, CAN TAKE AMOXICILLIN erythromycin base AdvReac Intermediate GI UPSET Verified 07/30/23 16:09 Home Medications Medication Instructions Recorded Confirmed Type allopurinol 100 mg tablet 200 mg PO HS 02/15/18 07/30/23 History (Zyloprim) omeprazole 20 mg capsule,delayed 20 mg PO QAM 02/15/18 07/30/23 History release spironolactone 25 mg tablet 25 mg PO QAM 02/15/18 07/30/23 History (Aldactone) magnesium oxide 400 mg PO QPM 02/03/20 07/30/23 History rosuvastatin 10 mg tablet (Crestor) 10 mg PO HS 02/03/20 07/30/23 History metoprolol tartrate 50 mg tablet 50 mg PO BID #0 tabs 02/09/20 07/30/23 Rx bumetanide 1 mg tablet 1 mg PO QAM 06/20/20 07/30/23 History cholecalciferol (vitamin D3) 25 1,000 unit PO QAM 06/20/20 07/30/23 History mcg (1,000 unit) capsule metformin 500 mg tablet,extended 500 mg PO QAM 06/20/20 07/30/23 History release 24 hr amiodarone 200 mg tablet 200 mg PO QAM 09/04/20 07/30/23 History amlodipine 5 mg tablet 5 mg PO BID 09/04/20 07/30/23 History multivitamin 1 tab PO QPM 03/10/21 07/30/23 History levothyroxine 112 mcg tablet 112 mcg PO QAM 04/14/21 07/30/23 History lisinopril 10 mg tablet 10 mg PO QPM 04/14/21 07/30/23 History acetaminophen 500 mg tablet 500 mg PO TID PAIN/FEVER 07/15/21 07/30/23 History (Tylenol Extra Strength) iron,carbonyl 65 mg-vitamin C 125 1 tab PO MOWEFR 07/30/23 07/30/23 History mg tablet,delayed release (Vitron-C) repaglinide 0.5 mg tablet 0.5 mg PO TID 07/30/23 07/30/23 History semaglutide 1 mg/dose (4 mg/3 mL) 1 mg subcut WK 07/30/23 07/30/23 History subcutaneous pen injector (Ozempic) warfarin 5 mg tablet See Rx Instructions .Route .COMPLEX 07/30/23 07/30/23 History Past Med/Surg History Medical History (HFpEF) heart failure with preserved ejection fraction PAF (paroxysmal atrial fibrillation) Rotator cuff tear arthropathy of both shoulders Venous ulcer Complex renal cyst Pseudomonas infection Osteonecrosis MRSA infection Diabetic ulcer of left foot associated with diabetes mellitus due to underlying condition, with fat layer exposed Diabetic ulcer of right foot associated with diabetes mellitus due to underlying condition, with fat layer exposed PEA (Pulseless electrical activity) Nephrolithiasis Discitis of lumbosacral region Chronic venous insufficiency Osteoarthritis Anemia MRSA (methicillin resistant Staphylococcus aureus) From wound in 2017 - Per Infection Control (04/21/21) pt does not need to be on precautions at this time T2DM (type 2 diabetes mellitus) Hx of osteomyelitis Spine (02/2020) treated at [facility] with fpc antibiotics and oxycodone for pain management Sleep apnea CPAP Hypertension Hypothyroidism Morbid obesity CVA (cerebral vascular accident) Silent > Old infarct found on remote CT imaging (dating back to at least 2017) CKD stage 3 secondary to diabetes DM II (diabetes mellitus, type II), controlled NIDDM Dyslipidemia Gout hx Anemia Hx of basal cell carcinoma Gastric ulcer due to Helicobacter pylori hx Surgical History S/P ureteral stent placement S/P panniculectomy S/P ureteral stent placement History of cystoscopy History of cataract surgery S/P panniculectomy History of umbilical hernia repair (09/11/20) Umbilical Hernia Repair with Mesh - Pete Zafar DO, FACS History of cardioversion RASHID with cardioversion (02/07/20): MAC sedation at [facility] S/P debridement multiple abdominal debridements at [facility]. 08/2020 History of esophagogastroduodenoscopy (EGD) H/O repair of rotator cuff right H/O left knee surgery multiple knee arthroscopy on left H/O basal cell carcinoma excision Status post Mohs surgery History of carpal tunnel surgery History of arthroplasty of left knee Family History Mother Diabetes Heart disease Father Hypertension Stroke Other No family history of adverse response to anesthesia No pertinent family history Social History Smoking Status: Never smoker Second Hand Exposure: No; Do You Dip or Chew Tobacco: No; Hx Alcohol Use: Yes Alcohol type: wine Hx Substance Use: No Preferred Language: Slovak Communication Ability: Effective Hearing Ability: Normal Furnace Mechanic Required: No Beliefs That Will Affect Care: None marital status: / Current Living Situation: Alone Current Living Situation Comment: [place]. 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 How many Children do You have: 2 Feels Safe at Home: Yes Diet: diabetic during the past year weight has: decreased > 10 lbs Assistive Devices: Cane and Walker Physical Exam Constitutional: WD/WN, vitals as above + obese; no acute distress Eyes: PERRL, conjunctivae normal, anicteric sclerae ENMT: external ear and nose normal, oropharynx normal Respiratory: normal respiratory effort; no respiratory distress Auscultation: + diminished lung sounds (Bilateral bases) Cardiovascular: Rate/Rhythm: regular rate and regular rhythm Vessels: normal peripheral pulses Extremities: no edema Gastrointestinal (Abdomen): normal bowel sounds, soft, nontender, no hepatosplenomegaly Musculoskeletal: no cyanosis or clubbing, extremities motor strength 5/5 Skin: no rashes, warm and dry Neurologic: PERRL, EOMI, accommodation nl, no face palsy, no dysarthria Psychiatric: A+Ox3, euthymic affect Results & Data Results & Data Vital Signs (Past 12 Hours) Vital Signs Temp Pulse Pulse Resp BP BP Pulse Ox 07/30/23 17:23 99 H 20 107/67 91 07/30/23 16:16 99 H 07/30/23 16:00 96 H 20 131/77 92 07/30/23 13:58 92 H 20 115/65 95 07/30/23 12:16 96 H 07/30/23 12:09 74 20 94/51 L 91 07/30/23 11:41 36.2 C L 100 H 18 90/57 L 93 O2 Del Method 07/30/23 17:23 Room Air 07/30/23 16:16 07/30/23 16:00 Room Air 07/30/23 13:58 Room Air 07/30/23 12:16 07/30/23 12:09 Room Air 07/30/23 11:41 Room Air Laboratory Results Short CBC 07/30/23 Range/Units 11:51 WBC 17.64 H (4.8-10.8) K/ul Hgb 11.1 L (12.0-16.0) g/dl Hct 34.2 L (37.0-47.0) % Plt Count 239 (130-400) K/uL BMP 07/30/23 11:51 Sodium 128 L Potassium 4.9 Chloride 93 L Carbon Dioxide 20 L BUN 69 H Creatinine 4.23 H Glucose 206 H Calcium 8.8 Liver Function 07/30/23 Range/Units 11:51 Total Bilirubin 0.7 (0.2-1.0) mg/dl AST 139 H (13-39) U/L ALT 160 H (7-52) U/L Alkaline Phosphatase 112 H (34-104) U/L Albumin 3.2 L (3.4-5.0) gm/dl Urine 07/30/23 Range/Units 15:26 Urine Color Dark Yellow Urine Appearance Turbid A (Clear) Urine pH 5.0 (4.5-7.5) Ur Specific [place] 1.020 (1.000-1.030) Urine Protein 3+ H (Negative) Urine Glucose (UA) Negative (Negative) Diagnostic Findings Abdomen/Pelvis CT 07/30/23 13:06 CT OF THE ABDOMEN AND PELVIS WITHOUT CONTRAST CLINICAL HISTORY: Abdominal pain. Acute kidney injury. COMPARISON STUDY: CT of the abdomen and pelvis April 22, 2021. Renal ultrasound September 08, 2022. TECHNIQUE: Axial images of the abdomen and pelvis were obtained without IV contrast. Images were reviewed in the axial, sagittal, and coronal planes. Automated exposure control was utilized for the study. A dose lowering technique was utilized adhering to the principles of ALARA. FINDINGS: No pneumatosis, free air or portal venous gas is present. A 1.4 x 0.6 cm proximal right ureteral calculus results in mild right hydronephrosis. There is mild right perinephric stranding. A small amount of gas within the right collecting system is noted. There is also a small amount of gas within the nondependent aspect of the bladder. There are no left ureteral calculi. There is no left hydronephrosis. Left renal calculi measure up to 8 mm. 5 mm right renal calculus. A cyst within the upper pole of the left kidney is incidentally noted. Evaluation of the remainder of the abdomen and pelvis is suboptimal on this un enhanced exam. Liver, spleen, adrenal glands and pancreas are unremarkable. There is no evidence for a bowel obstruction. Sigmoid diverticulosis is present without evidence for acute diverticulitis. There is trace fluid within the pelvis. No acute fractures are identified within visualized skeletal structures. There is no lymphadenopathy. The appendix is normal. IMPRESSION: 1. 1.4 x 0.6 cm proximal right ureteral calculus results in mild right hydronephrosis with perinephric stranding. No additional ureteral calculi. Small amount of gas within the right collecting system. Given gas within the bladder, this gas could be due to recent procedure/instrumentation. An infectious etiology cannot be excluded and could be correlated with urinalysis. 2. Bilateral nephrolithiasis. No left hydronephrosis. 3. No bowel obstruction. Colonic diverticulosis. No evidence for acute diverticulitis. ACT 112: Negative or not required by law. Electronically signed by: Gui Berumen M.D. 07/30/2023 1:58 PM Supervising Physician Co-Signing Physician Notes Date of Service: July 30, 2023 Attending addendum: Patient was seen and examined in the emergency room She has been complaining of weakness, shaking and abdominal pain with nausea and diarrhea Denies any chest pain and her palpitation, no shortness of breath, fever and or chills On examination Lying in bed with acute distress secondary to anxiety and tremors involving the hands Hemodynamically stable Chest-clear to auscultate bilaterally Heart-S1, S2 regular Abdomen-mildly distended and tender, tender right renal angle, bowel sound present Extremities chronic skin changes-, no edema MEDICAL SPECIALIST-alert, awake and oriented x 3 Her admission labs, imaging studies and EKG reviewed Has significant SAJAN with right obstructive ureteric stone and hydronephrosis-may need nephrology evaluation if kidney function does not improve following cystoscopic evaluation Has been started on intravenous cefepime-received a dose of ceftriaxone in the emergency room Will need to give adequate amount of intravenous fluid with normal saline and monitor. Will have cystoscopy with retrograde pyelogram and ureteral stent placement on the right side by urologist this evening Agree with assessment and plan as outlined above by Luz Marina Wilson (2) UTI (urinary tract infection) Hematuria presence: with hematuria Urinary tract infection type: site unspecified Qualified Code(s): N39.0 - Urinary tract infection, site not specified; R31.9 - Hematuria, unspecified
[2023-07-30] MEDS ORDERED: LIDOCAINE 2% 2 ML VIAL/AMP(20MG/ML) INFIL ONE (18:09)
[2023-07-30] MEDS ORDERED: PROPOFOL IV EMULSION 10 MG/ML 20 ML VIAL IV ONE (18:09)
[2023-07-30] MEDS ORDERED: ONDANSETRON INJ 2 MG/ML 2 ML VIAL ONE (18:09)
[2023-07-30] MEDS ORDERED: fentaNYL citrate PF 100 MCG/2 ML VIAL IV PRN (18:19)
[2023-07-30] MEDS ORDERED: ATROPINE SULFATE 0.1 MG/ML 10ML SYR IV PRN (18:19)
[2023-07-30] MEDS ORDERED: ONDANSETRON INJ 2 MG/ML 2 ML VIAL IV PRN (18:19)
[2023-07-30] MEDS ORDERED: ePHEDrine sulfate 50 MG/ML AMP IV PRN (18:19)
--- NOTE | 2023-07-30 18:35 | Urology Consultation ---
Date of Consultation July 30, 2023 Assessment & Plan (1) Hydronephrosis with renal and ureteral calculous obstruction: (2) UTI (urinary tract infection): (3) Sepsis: (4) Adenovirus infection: (5) SAJAN (acute kidney injury): (6) (HFpEF) heart failure with preserved ejection fraction: (7) Diarrhea: Plan Well-known patient with history of significant stone disease presented to the ER with severe GI issues nausea vomiting diarrhea. Found to have adenovirus her and has been dealing with significant issues with it. Has had poor oral intake. Has had dehydration. Patient underwent assessment and imaging. Found to have obstructing stone possibility of gas within the collecting system. Patient has a long complicated history of stone disease. Has had significant septic episodes with severe illness with stone disease. Patient was placed on broad-spectrum antibiotics. Is on warfarin and had an INR checked. Patient underwent CT imaging which was reviewed interpreted by myself. Patient's vitals and labs were all reviewed. Pertinent values in the HPI and plan section. Imaging was reviewed interpreted by myself. Found to have significant obstructing stone in the mid ureter on the right with significant hydronephrosis and possible glasses within the collecting system. Also possible gas within the bladder. Vitals were reviewed. Patient is afebrile but does have a significant tachycardia. Blood pressures have been on the low side with 113/58. Pulse was 102. Oxygen saturation 94% on room air. Hemoglobin was 11.1. White cells 17.64 creatinine is significantly elevated at 4.23. Patient other labs and vitals were all reviewed please see HPI or plan section for pertinent values. Please see full report. Patient's imaging has been reviewed interpreted by myself. Discussed findings extensively with patient and family. Have been in contact with the hospitalist team as well as the ER who had got the patient admitted to the hospitalist team. Have been coordinating with the physicians/team. Patient was undergoing IV hydration and resuscitation due to sepsis. Patient has had some mild improvement but has now developed significant rigors and chills. Concern for worsening infection with possible ascending infection and possible pyelonephritis. Patient has had significant history of obstructing stone with sepsis in the past. Has poorly dealt with infections in the past. Requires considerable supportive care and close monitoring for a number of days Patient's complicated medical and surgical history was reviewed and summarized above. Patient's surgical, medical, social, and family history were all reviewed with pertinent values as above. Discussed patient's current diagnosis as well as concerns and issues. Reviewed different options moving forward. Discussed potential risks and benefits as well as possible options and concerns. Reviewed potential surgical options and interventions. Discussed potential issues and concerns related to intervention. Risk and benefits were discussed extensively with patient and any available family. Discussed potential risks related to anesthesia. Discussed risks of bleeding infection and injury. Risks and benefits discussed at length for procedure. These include bleeding, infection, injury to surrounding tissues or organs, and risks associated with anesthesia. Patient states understanding and agrees to proceed. Will sign consent and schedule. 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 Extensively reviewed concerns and issues. Also spoke with patient's daughter via phone to confirm findings. Will plan to proceed with urgent/emergent stent placement on the right. Plan for cystoscopy with right stent placement. Will also plan for aspiration of urine from right side for culture of the upper tract. Patient is undergoing supportive care for the significant GI viral infection as well as for the significant infection with pyelonephritis. History of Present Illness History of Present Illness New consultation for patient with stone, discomfort, obstruction, and ill feelings. Patient developed sudden onset of pain into flank going down and radiating into groin and back in waves comes and goes. Can be severe at times. Discussed and reviewed patient's family history for any history of stone disease. Also, discussed patient's medical surgery history especially related to any history of urinary issues or stone disease. Patient was admitted and is undergoing observation. Allergies Allergy/AdvReac Type Severity Reaction Status Date / Time Penicillins Allergy Intermediate URTICARIA; Verified 07/30/23 16:09 PER PT, CAN TAKE AMOXICILLIN erythromycin base AdvReac Intermediate GI UPSET Verified 07/30/23 16:09 Home Medications Medication Instructions Recorded Confirmed Type allopurinol 100 mg tablet 200 mg PO HS 02/15/18 07/30/23 History (Zyloprim) omeprazole 20 mg capsule,delayed 20 mg PO QAM 02/15/18 07/30/23 History release spironolactone 25 mg tablet 25 mg PO QAM 02/15/18 07/30/23 History (Aldactone) magnesium oxide 400 mg PO QPM 02/03/20 07/30/23 History rosuvastatin 10 mg tablet (Crestor) 10 mg PO HS 02/03/20 07/30/23 History metoprolol tartrate 50 mg tablet 50 mg PO BID #0 tabs 02/09/20 07/30/23 Rx bumetanide 1 mg tablet 1 mg PO QAM 06/20/20 07/30/23 History cholecalciferol (vitamin D3) 25 1,000 unit PO QAM 06/20/20 07/30/23 History mcg (1,000 unit) capsule metformin 500 mg tablet,extended 500 mg PO QAM 06/20/20 07/30/23 History release 24 hr amiodarone 200 mg tablet 200 mg PO QAM 09/04/20 07/30/23 History amlodipine 5 mg tablet 5 mg PO BID 09/04/20 07/30/23 History multivitamin 1 tab PO QPM 03/10/21 07/30/23 History levothyroxine 112 mcg tablet 112 mcg PO QAM 04/14/21 07/30/23 History lisinopril 10 mg tablet 10 mg PO QPM 04/14/21 07/30/23 History acetaminophen 500 mg tablet 500 mg PO TID PAIN/FEVER 07/15/21 07/30/23 History (Tylenol Extra Strength) iron,carbonyl 65 mg-vitamin C 125 1 tab PO MOWEFR 07/30/23 07/30/23 History mg tablet,delayed release (Vitron-C) repaglinide 0.5 mg tablet 0.5 mg PO TID 07/30/23 07/30/23 History semaglutide 1 mg/dose (4 mg/3 mL) 1 mg subcut WK 07/30/23 07/30/23 History subcutaneous pen injector (Ozempic) warfarin 5 mg tablet See Rx Instructions .Route .COMPLEX 07/30/23 07/30/23 History Patient History Medical History (HFpEF) heart failure with preserved ejection fraction PAF (paroxysmal atrial fibrillation) Rotator cuff tear arthropathy of both shoulders Venous ulcer Complex renal cyst Pseudomonas infection Osteonecrosis MRSA infection Diabetic ulcer of left foot associated with diabetes mellitus due to underlying condition, with fat layer exposed Diabetic ulcer of right foot associated with diabetes mellitus due to underlying condition, with fat layer exposed PEA (Pulseless electrical activity) Nephrolithiasis Discitis of lumbosacral region Chronic venous insufficiency Osteoarthritis Anemia MRSA (methicillin resistant Staphylococcus aureus) From wound in 2017 - Per Infection Control (04/21/21) pt does not need to be on precautions at this time T2DM (type 2 diabetes mellitus) Hx of osteomyelitis Spine (02/2020) treated at [facility] with [facility] antibiotics and oxycodone for pain management Sleep apnea CPAP Hypertension Hypothyroidism Morbid obesity CVA (cerebral vascular accident) Silent > Old infarct found on remote CT imaging (dating back to at least 2017) CKD stage 3 secondary to diabetes DM II (diabetes mellitus, type II), controlled NIDDM Dyslipidemia Gout hx Anemia Hx of basal cell carcinoma Gastric ulcer due to Helicobacter pylori hx Surgical History S/P ureteral stent placement S/P panniculectomy S/P ureteral stent placement History of cystoscopy History of cataract surgery S/P panniculectomy History of umbilical hernia repair (09/11/20) Umbilical Hernia Repair with Mesh - Pete Zafar DO, FACS History of cardioversion RASHID with cardioversion (02/07/20): MAC sedation at [facility] S/P debridement multiple abdominal debridements at [facility]. 08/2020 History of esophagogastroduodenoscopy (EGD) H/O repair of rotator cuff right H/O left knee surgery multiple knee arthroscopy on left H/O basal cell carcinoma excision Status post Mohs surgery History of carpal tunnel surgery History of arthroplasty of left knee Family History Mother Diabetes Heart disease Father Hypertension Stroke Other No family history of adverse response to anesthesia No pertinent family history Social History Smoking Status: Never smoker Second Hand Exposure: No; Do You Dip or Chew Tobacco: No; Hx Alcohol Use: Yes Alcohol type: wine Hx Substance Use: No Preferred Language: Montene[place]in Communication Ability: Unable Hearing Ability: Normal Csm Consultant Required: No Beliefs That Will Affect Care: None marital status: / Current Living Situation: Alone Current Living Situation Comment: currently living with daughter current occupational status: retired How many Children do You have: 2 Feels Safe at Home: Yes Diet: diabetic during the past year weight has: decreased > 10 lbs Assistive Devices: Cane, Denture - Upper, Denture - Lower, Glasses and Walker Review of Systems Review of Systems: All systems reviewed & are unremarkable except as noted in HPI & below Limited due to patient illness Physical Exam Physical Exam: General: Acutely ill. Undergoing critical care management for acute severe infection. Chills and rigors. HEENT: Normocephalic Atraumatic. Inspection normal. Cranial Nerves 2-12 Grossly intact. Nares are clear. Neck is supple. Normal inspection of face. Normal inspection of neck. Neurologic: No deficits on inspection. Baseline for motor function and sensory. Psychologic: Anxious, mild lethargic/mild acute delirium secondary to illness. Respiratory: Mild labored. No use of accessory muscles. No severe dyspnea. Cardiovascular: tachycardia Skin: [place] and Dry. No rashes or visible lesions. Febrile Extremities: Moving without issues. No motor deficits on inspection Lymphatics: Mild edema Abdomen: Obese. Mildly distended. No rebound or guarding. Mild suprapubic/flank tenderness Results & Data Vital Signs (Past 12 Hours) Vital Signs Temp Pulse Pulse Resp BP BP Pulse Ox 07/30/23 18:10 37.4 C 102 H 20 113/58 L 94 07/30/23 18:09 07/30/23 17:23 99 H 20 107/67 91 07/30/23 16:16 99 H 07/30/23 16:00 96 H 20 131/77 92 07/30/23 13:58 92 H 20 115/65 95 07/30/23 12:16 96 H 07/30/23 12:09 74 20 94/51 L 91 07/30/23 11:41 36.2 C L 100 H 18 90/57 L 93 O2 Del Method 07/30/23 18:10 Room Air 07/30/23 18:09 Room Air 07/30/23 17:23 Room Air 07/30/23 16:16 07/30/23 16:00 Room Air 07/30/23 13:58 Room Air 07/30/23 12:16 07/30/23 12:09 Room Air 07/30/23 11:41 Room Air PG Care Time/CCT Total # of Minutes Spent Total Time Spent with Patient: Total time spent is greater than 50% in coordination of care (as documented) at patient's floor/unit and/or counseling patient: Coding Level of Care Code 24345 INT INP/OBS CARE Diagnoses Hydronephrosis with renal and ureteral calculous obstruction N13.2 UTI (urinary tract infection) N39.0; R31.9 Hematuria presence: with hematuria Urinary tract infection type: site unspecified Sepsis A41.9 Adenovirus infection B34.0 SAJAN (acute kidney injury) N17.9 (HFpEF) heart failure with preserved ejection fraction I50.30 Diarrhea R19.7 (2) UTI (urinary tract infection) Hematuria presence: with hematuria Urinary tract infection type: site unspecified Qualified Code(s): N39.0 - Urinary tract infection, site not specified; R31.9 - Hematuria, unspecified
[2023-07-30 18:36] LABS: INR 4.1 (0.9-1.1); Prothrombin Time 40.9 Seconds (9.0-12.0)
[2023-07-30] MEDS: DIATRIZOATE MEGLUMINE 30% 100ML VIAL INSTIL ONE (19:14)
--- NOTE | 2023-07-30 19:28 | Operative Report ---
PG Post Operative Report Pre & Post Diagnosis Obstructing right ureteral stone, sepsis Obstructing right ureteral stone, sepsis Operation Date: 07/30/23 18:30 <No data on this case meets the specified criteria> I identified the patient and participated in the time-out.: Yes Procedure Operation Date: 07/30/23 18:30 Actual Procedures p Cystoscopy with right retrograde Pyelogram, Aspiration, right Ureteral Stent Placement - Song Edwards DO Surgeon Song Edwards, II, DO [employer] T[employer] Helper None Estimated Blood Loss 1 Findings Consistent with Post-Op Diagnosis Stent placed in good position. Large amount of purulent urine draining from the right kidney. Severely obstructing stone. Large debris within the base of the bladder after placement of stent. Specimens Urine for culture from right kidney. Drains 6 Fr Multilength Anesthesia Type MAC Complications none Disposition Disposition: Recovery Room Indications Patient with obstruction. Risks and benefits discussed at length. Description of Procedure Patient was consented and brought back to the operating room. Patient was placed under anesthesia in the supine position and moved to the dorsal lithotomy position. Patient was prepped and draped in the regular sterile fashion. A time out was completed. A 30degree Cystoscope was placed into the bladder and the entire bladder was examined. The UO's were identified. The UO was cannulized with a catheter and advanced towards the renal pelvis. Manipulation was necessary in order to bypass the obstructing stone. Once past the obstructing stone and urine was attempted to be aspirated. There was a large amount of debris which made aspiration somewhat difficult. With some manipulation a purulent urine was able to be drained and sent for culture. A retrograde pyelogram was completed. The renal pelvis was found to be significantly dilated. A wire was then placed. With the wire in place, a 6 Fr Double J stent was placed. It was confirmed with fluoroscopy. With the stent in place, the bladder was emptied. The scope was removed. The patient was cleaned, aroused from anesthesia, and transferred to the pacu in stable condition having tolerated the procedure well with no complications. I was present and participated in all aspects of the procedure. The patient will be monitored in the PACU until transferred. Patient is going to be admitted and monitored with the hospitalist team undergo supportive care and broad-spectrum antibiotics. Will plan to monitor with possible more critical monitoring if patient continues to have significant considerable issues and concern for worsening sepsis. Patient will likely need 1 to 2 weeks for antibiotic treatment for presumed pyelonephritis. Will likely set up for procedure to treat stone after clearing of the viral GI and likely bacterial urinary infections. I attest to the content of the Intraoperative Record and any orders documented therein. Any exceptions are noted below.
--- NOTE | 2023-07-30 19:46 | Anesthesiology Progress Note ---
Date of Service July 30, 2023 Anesthesia Post Procedure Vital Signs Vital Signs: Temp Pulse Pulse Resp BP BP BP 07/30/23 19:40 36.9 C 101 H 22 118/69 07/30/23 19:30 101 H 24 118/70 07/30/23 19:20 36.2 C L 99 H 22 113/63 07/30/23 18:10 37.4 C 102 H 20 113/58 L 07/30/23 18:09 07/30/23 17:23 99 H 20 107/67 07/30/23 16:16 99 H 07/30/23 16:00 96 H 20 131/77 07/30/23 13:58 92 H 20 115/65 07/30/23 12:16 96 H 07/30/23 12:09 74 20 94/51 L 07/30/23 11:41 36.2 C L 100 H 18 90/57 L Pulse Ox O2 Del Method O2 Flow Rate 07/30/23 19:40 93 Nasal Cannula 2 07/30/23 19:30 100 Oxymask 4 07/30/23 19:20 97 Oxymask 6 07/30/23 18:10 94 Room Air 07/30/23 18:09 Room Air 07/30/23 17:23 91 Room Air 07/30/23 16:16 07/30/23 16:00 92 Room Air 07/30/23 13:58 95 Room Air 07/30/23 12:16 07/30/23 12:09 91 Room Air 07/30/23 11:41 93 Room Air Transfer of Care Handoff Completed per policy Notes Mental Status: alert / awake / arousable and participated in evaluation Patient Amnestic to Procedure: Yes Nausea / Vomiting: adequately controlled Pain: adequately controlled Airway Patency, RR, SpO2: stable & adequate BP & HR: stable & adequate Hydration State: stable & adequate Anesthetic Complications: no major complications apparent and Pt Satisfied with anesthetic care
[2023-07-30] MEDS ORDERED: CARBOHYDRATES FOR HYPOGLYCEMIA PO PRN (20:15)
[2023-07-30] MEDS ORDERED: DEXTROSE 50% 50 ML SYRINGE IV PRN (20:15)
[2023-07-30] MEDS ORDERED: GLUCAGON FOR INJ 1 MG VIAL SQ PRN (20:15)
[2023-07-30] MEDS ORDERED: GLUCOSE 10 TAB/TUBE PO PRN (20:15)
[2023-07-30] MEDS ORDERED: GLUCOSE 40% GEL 15 GM TUBE PO PRN (20:15)
[2023-07-30] MEDS: SODIUM CHLORIDE 0.9% 1,000 ML IV SCH (20:27)
[2023-07-30] MEDS: ACETAMINOPHEN 325 MG TAB PO PRN (20:33)
--- NOTE | 2023-07-30 21:01 | Fluoroscopy Report ---
FL retrograde includes kub CLINICAL HISTORY: Right ureteral stent placement. COMPARISON STUDY: None. FLUOROSCOPY TIME: 47 seconds. FLUOROSCOPY IMAGES: 2 Ka,r: 21.9 mGy FINDINGS: Retrograde opacification of the right renal collecting system with placement of a right ure teral stent. The stent appears in good position. IMPRESSION: Fluoroscopic assistance as above ACT 112: Negative or not required by law. Electronically signed by: Suhail Nolen M.D. 07/30/2023 8:59 PM
[2023-07-30] MEDS: METOPROLOL TARTRATE 50 MG TAB PO SCH (21:08)
[2023-07-30] MEDS: ROSUVASTATIN CALCIUM 10 MG TAB PO SCH (21:08)
[2023-07-30] MEDS: CEFEPIME 2,000 MG in SYRINGE 0 ML IV ONE (21:08)
[2023-07-30] MEDS: INSULIN ASPART PER UNIT CHARGE SC SCH (21:11)
[2023-07-30 21:42] LABS: Calcium 7.9 mg/dl (8.6-10.3); Potassium 4.6 mmol/L (3.5-5.1)
[2023-07-30 21:48] LABS: BUN Creatinine Ratio 17.2 (10-20); Creatinine Clr Calc Pharmacy 15.7 ml/min; Est GFR (African American) 12.9 ml/min; Est GFR (Non-African American) 11.2 ml/min
--- OUTSIDE RECORDS SUMMARY | 2023-07-30 22:36 | External Medical Summary ---
Author Name Unknown Address Unknown Organization K09:[facility] [place] [place] [address] Laboratory Report Ordering Provider Test Date Status LEIDY TORRE 07/19/2023 15:07:16 Final Therapeutic ranges for non-o perative patients:
Prophylaxsis/treatment of DVT: (Range:2.0-3.0)
Treatment of pulmonary embolism:(Range:2.0-3.0)
Prevention of systemic embolism from:
-tissue heart valves
-acute myocardial infarction
-valvular heart disease
-atrial fibrillation
(Range: 2.0-3.0)
Mechanical prosthetic valves: (Range: 2.5-3.5) Observation Date Value Abnormality Reference (Units ) Status INR in Capillary blood by Coagulation assay 07/19/2023 15:07:16 2.7 (INR) Final Performing Location [facility] [place] [id number]
--- OUTSIDE RECORDS SUMMARY | 2023-07-30 22:36 | External Medical Summary | Summary of Care ---
Author Name Unknown Organization [facility] Address [address] [place] [address] Phone [phone] Care Team Providers Care Feed Project Engineer Name Role Phone Micah Whitmore MD Primary Care Provider + Reason for Visit * Reason Comments Dosage Adjustment In Person (Anticoag Cl inic) Encounter Details Date Type Department Care Team (Latest Contact Info) Description 07/19/2023 3:00 PM EDT Anticoagulation Pharmacy, [facility] [address] [facility] [place] [address] Pharmacist2, [facility] [address] [facility] [address] PAF (paroxysmal atrial fibrillation) ([facility])* Allergies Active Allergy Reactions Criticality Noted Date Comments Erythromycin Base Low 02/03/2020 Other reaction(s): GI UPSET Gabapentin 10/31/2021 Tremors Penicillins Rash 05/24/2012 documented as of this encounter (statuses as of 07/19/2023) Medications Medication Sig Dispensed Refills Start Date End Date Status VITAMIN D 1000 UNIT PO TABS one daily 0 Active Acetaminophen 500 MG Oral Tablet (TYLENOL) Take 2 Tablets by mouth every 8 hours as needed. 0 02/15/2020 Active Omeprazole 20 MG Oral Tablet Delayed ReleaseIndications :Gastroesophageal reflux disease without esophagitis Take 1 Tablet by mouth in the morning. 60 Tab 1 09/26/2020 Active Iron-Vitamin C 65-125 MG Oral Tablet Take 1 Tablet by mouth. On Wednesday, Wednesday, and Wednesday only 0 Active Warfarin Sodium 5 MG Oral Tablet (Coumadin)Indicati ons:PAF (paroxysmal atrial fibrillation) (HCC) Take 1 Tablet by mouth daily. Or as directed by anticoagulation clinic 90 Tablet 2 11/10/2022 Active Repaglinide 0.5 MG Oral Tablet (Prandin)Indicatio ns: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 disease, without long-term current use of insulin (HCC) TAKE ONE TABLET BY MOUTH THREE TIMES A DAY 15 MINUTES BEFORE MEALS 270 Tablet 2 11/10/2022 Active Metoprolol Tartrate 100 MG Oral Tablet (Lopressor)Indicat ions:PAF (paroxysmal atrial fibrillation) (HCC),HTN, goal below 140/90 TAKE ONE-HALF TABLET BY MOUTH EVERY MORNING AND TAKE ONE-HALF TABLET BY MOUTH BEFORE BEDTIME 90 Tablet 3 12/06/2022 4 Active Magnesium Oxide 400 MG Oral Tablet Take 1 Tablet by mouth every evening. 0 Active Multivitamin Adult Oral Tablet Take by mouth. 0 Active Spironolactone 25 MG Oral Tablet (Aldactone)Indicat ions:HTN, goal below 140/90 Take by mouth 1 Tablet in the morning. 100 Tablet 3 02/23/2023 Active metFORMIN HCl ER 500 MG Oral Tablet Extended Release 24 Hour (Glucophage XR)Indications:Typ e 2 diabetes mellitus with hemoglobin A1c goal of less than 7.5% ([facility]) Take by mouth 1 Tablet in the morning. 90 Tablet 3 02/24/2023 Active Bumetanide 1 MG Oral Tablet (Bumex)Indications :PAF (paroxysmal atrial fibrillation) (HCC),HTN, goal below 140/90 Take 1 Tablet by mouth in the morning. 100 Tablet 3 02/23/2023 Active Amiodarone HCl 200 MG Oral Tablet (Cordarone)Indicat ions:PAF (paroxysmal atrial fibrillation) (HCC) TAKE ONE TABLET BY MOUTH EVERY DAY 90 Tablet 4 03/18/2023 4 Active Rosuvastatin Calcium 10 MG Oral Tablet (Crestor) TAKE ONE TABLET BY MOUTH EVERY DAY 90 Tablet 1 03/31/2023 4 Active Allopurinol 100 MG Oral Tablet (Zyloprim)Indicati ons:Gout TAKE TWO TABLETS BY MOUTH EVERY MORNING 180 Tablet 1 03/31/2023 4 Active Lisinopril 10 MG Oral Tablet (Prinivil)Indicati ons: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 disease, without long-term current use of insulin, unspecified whether stage 3a or 3b CKD (HCC) TAKE ONE TABLET BY MOUTH EVERY MORNING 90 Tablet 3 07/16/2023 5 Active Levothyroxine Sodium 112 MCG Oral Tablet (Levoxyl)Indicatio ns:Hypothyroidism due to medication TAKE 1 TABLET BY MOUTH DAILY AT LEAST 30 MINUTES PRIOR TO FIRST MEAL OF THE DAY OR OTHER MEDICATIONS 90 Tablet 3 07/16/2023 5 Active amLODIPine Besylate 5 MG Oral Tablet (Norvasc)Indicatio ns:HTN, goal below 140/90 TAKE ONE TABLET BY MOUTH TWICE A DAY -- IN THE MORNING AND BEFORE BEDTIME 180 Tablet 3 07/16/2023 5 Active Ozempic (2 MG/DOSE) 8 MG/3ML Subcutaneous Solution Pen-injector (Semaglutide (2 MG/DOSE))Indicatio ns:Type 2 diabetes mellitus with stage 3a chronic kidney disease, without long-term current use of insulin (HCC) Inject 2 mg under the skin once a week. 9 mL 1 07/19/2023 Active documented as of this encounter (statuses as of 07/19/2023) Active Problems Problem Noted Date Diagnosed Date Morbid obesity with BMI of 45.0-49.9, adult 07/01 Body mass index (BMI) of 40.0 to 44.9 in adult 0 07/12/2023 Overview: Per Obesity protocol - Per Obesity protocol - Per Obesity protocol Hypertensive heart and kidne y disease with chronic diastolic congestive heart failure and stage 3a chronic kidney disease 12/18/2022 Chronic diastolic heart failure 10/17/2021 Gastroesophageal reflux disease without esophagi tis 06/18/2021 Type 2 diabetes mellitus wit h stage 3a chronic kidney disease, without long-term current use of insulin 06/18/2021 Type 2 diabetes mellitus wit h hemoglobin A1c goal of less than 8.0% 06/09/2019 Chronic bilateral low back pain without sciatica 06/09/2019 Right shoulder pain 03/09/2018 EDYTA on CPAP 10/27/2017 History of CVA (cerebrovascular accident) 2017 History of gastric ulcer 10/27/2017 Overview: nsaid and h pylori Chronic pain of both knees 08/06/2017 Hypertensive kidney disease with stage 3a chronic kidney disease 07/27/2017 Pulmonary hypertension 07/27/2017 Hypothyroidism due to medication 04/22/2017 PAF (paroxysmal atrial fibrillation) 07/26/2016 Nocturnal hypoxemia 07/26/2016 Mixed hyperlipidemia 05/07/2014 Hx of basal cell carcinoma 09/28/2012 Overview: CC central frontal and L frontal scalp 12/2019, BCC R upper back 10/2018, BCC L superior helix 2016,BCC R frontal scalp 01/2014, L medial cheek/lower eyelid and R upper back - both 2007 Gout 05/28/2012 documented as of this encounter (statuses as of 07/19/2023) Resolved Problems Problem Noted Date Diagnosed Date Resolved Date Body mass index (BMI) of 45. 0 to 49.9 in adult 12/14/2022 07/15/2023 Overview: Per Obesity protocol - Per Obesity protocol Body mass index (BMI) of 50. 0 to 59.9 in adult 08/10/2022 12/17/2022 Overview: Per Obesity protocol Pressure injury of skin of left foot 06/25/2022 12/31/2022 Morbid obesity with BMI of 45.0-49.9, adult 06/18/2021 08/13/2022 Overview: Per Obesity protocol Body mass index (BMI) of 45. 0 to 49.9 in adult 10/15/2020 07/16/2021 Overview: Per Obesity protocol - - Diabetes mellitus due to und erlying condition with stage 3 chronic kidney disease 09/13/202006/04 Open wound of abdomen 06/28/20202022 Lymphedema 05/09/2020 07/19/2023 Wound, open, abdominal wall, anterior with complication, initial encounter 04/05/2020 07/30/19 Osteomyelitis of vertebra, lumbar region 03/15/2020 06/03/2021 Varicose veins of unspecifie d lower extremity with ulcer of unspecified site (CODE) 03/15/2020 Type 2 diabetes mellitus wit h diabetic peripheral angiopathy without gangrene 03/15/2020 0 07/29/2020 Prediabetes 10/10/2018 06/09/2019 Overview: Per Prediabetes protocol Body mass index (BMI) of 50. 0 to 59.9 in adult 06/13/2018 10/17/2020 Overview: Per Obesity protocol #1 - - Body mass index (BMI) of 60. 0 to 69.9 in adult 12/14/2017 06/16/2018 Overview: Per Obesity protocol #1 - Type 2 diabetes, HbA1c goal < 7% 07/27/2017 07/27/2017 Non-pressure chronic ulcer o f unspecified part of left lower leg with unspecified severity 07/27/2017 09/16/2018 Varicose veins of left lower extremity with both ulcer of unspecified site and inflammation 07/27/2017 09/16/2018 Abnormal liver function test 04/22/2017 10/27/2017 Body mass index (BMI) of 50. 0 to 59.9 in adult 02/01/2017 12/18/2017 Overview: Per Obesity protocol #1 Morbid (severe) obesity due to excess calories 10/19/2016 09/16/2018 Localized edema 08/03/2016 07/19/2023 HTN, goal below 140/90 10/14/201507/27 Overview: Per HTN Protocol Kidney disease, chronic, sta ge III (GFR 30-59 ml/min) 07/16/2014 07/27/2017 Overview: Per CKD protocol #1 Statin intolerance 05/07/2014 Overview: To lipitor Carpal tunnel syndrome 06/30/201209/16 ADVANCE DIRECTIVE INFORMATION 05/04/2007 10/27/2017 Overview: Yes, Patient instructed to provide copy of advance directive for provider to review and to be scanned into Electronic Medical Record HTN, goal below 140/80 10/16 Overview: Per HTN Protocol Gastric ulcer due to Helicobacter pylori 10/27/2017 Overview: NSAID and h pylori documented as of this encounter (statuses as of 07/19/2023) Immunizations Name Administration Dates Next Due COVID-19 mRNA, LNP-s, No Pre serve, 2-Dose Series ([employer]) 02/25/2021,07/23/2020,06/27/2020 COVID-19, LNP-s, No Preserve , Derek-sucrose, Ages 12+ ([employer]) 12/04/2021 COVID-19, MRNA-LNP, 23-24, P F, 30 MCG/0.3 mL, 12 YRS AND ABOVE, IM ([facility] 06/22/2023 Covid-19, Mrna, Lnp-s, Pf, B ivalent, 30 Mcg, IM, 12 yrs and above ([employer]) 02/03/2022 HepA Inact/HepB Recomb>=18yrs old 05/05/2018,,10/27/2017 04/28/2018 Pneumococcal Conjugate Vacc, 13 Valent (Prevnar) 07/31/2016 Pneumococcal Polysaccharide PPV23 (Pneumovax) 10/27/2017,05/24/2012 RSV Vac., Bivalent, Perfusio n F, Pf,0.5 Ml (Abrysvo) 06/22/2023 Seasonal Influenza Virus Vac cine, Unspecified Formulation 02/10/2021,02/16/2020 Seasonal Influenza, PF, 6 M & above, IM , (FluLaval or Fluzone) 02/16/2020,03/09/2018 Seasonal Influenza, Quadriva lent Hd (Fluzone Hd) 01/26/2023,02/03/2022,02/10/2021 Seasonal Influenza, Quadriva lent, No Preserve, IM 01/19/2017 Seasonal Influenza, Split, I IV3, With Preserve, Inj 03/27/2014,2013,05/24/2012 Seasonal Influenza, Trivalen t, Adjuvanted, 65+ yrs 05/19/2019 TDAP (age 10 and older)(Boostrix) 12/31/2022, Varicella Zoster Vaccine (Adult) 03/27/2014 Zoster Vaccine Recombinant (Shingrix) 10/17/2020 ,05/09/2020 documented as of this encounter Social History Tobacco Use Types Packs/Day Years Used Date Smoking Tobacco: Never Smokeless Tobacco: Never Alcohol Use Standard Drinks/Week Comments Yes 0.8 (1 standard drin k = 0.6 oz pure alcohol) a few times a month-[place] and wine PHQ-2 Answer Date Recorded PHQ Adult Total Score 5 08/13/2022 Hunger Vital Sign Answer Date Recorded Within the past 12 months, y ou worried that your food would run out before you got the money to buy more. Never true 08/14/19 23 Within the past 12 months, t he food you bought just didn't last and you didn't have money to get more. Never true 08/13/2022 Sex and Gender Information Value Date Recorded Sex Assigned at Female 09/16/2018 11:22 AM EDT Gender Identity Female 09/16/2018 11:22 AM EDT Sexual Orientation Straight 09/16/2018 11 :22 AM EDT Job Start Date Occupation Industry Not on file Not on file Not on file Travel History Travel Start Travel End [facility] 07/14/2023 07/16/2023 documented as of this encounter Progress Notes * Shravan Crane, [facility] - 07/19/2023 3:04 PM EDT Medication Therapy Disease Management - Anticoagulation Patient: Alex Paulino | : 1950 Subjective Patient-Reported Symptoms: Patient Findings Negatives: Signs/symptoms of thrombosis, Signs/symptoms of bleeding, Change in health, Change in alcohol use, Change in activity, Upcoming invasive procedure, Missed doses, Extra doses, Change in medications, Change in diet/appetite, Bruising Objective Current Warfarin Dose As of 07/19/2023 Warfarin maintenance plan: 2.5 mg (5 mg x 0.5) every Mon, Fri; 5 mg (5 mg x 1) all other days INR Result As of 07/19/2023 INR goal: 2.0-3.0 INR used for dosin.7 (07/19/2023) Assessment & Plan Warfarin Plan As of 07/19/2023 Full warfarin instructions: 2.5 mg every Mon, Fri; 5 mg all other days No change documented: Shravan Crane RPh Next INR check: 08/17/2023 Repeat PT/INR in 4 week(s) Weekly dose: not changed Additional Dosing Information: Description Amio 200 mg daily maintenance Shravan Crane [facility] Clinical Pharmacist 07/19/2023, 3:04 PM documented in this encounter Plan of Treatment Upcoming Encounters Date Type Department Care Team (Late st Contact Info) Description 08/17/2023 1:30 PM EDT Anticoagulation Pharmacy, [address] [address] [facility] [place] [address] 08/19/2023 9:30 AM EDT Office Visit Cardiology, [facility] [address] [place] [address] Florentin Senior PA-C [address] [place] [address] 08/19/2023 1:00 PM EDT Nurse Only Ancillary [facility] [place] [address] [place] [address] Im, Nurse Annual Well[facility] [address] [place] [address] 11/09/2023 9:40 AM EDT Office Visit Dermatology [facility] [place] [address] [place] [address] Crystal Hernández PA-C [address] [facility] [place] [phone] 01/04/2024 3:20 PM EDT Office Visit Sleep Disorders Ctr [facility] [address] [place] [phone] Liudmila Singleton, [address] [place] [address] 01/27/2024 1:00 PM EDT Imaging Radiology [facility] [address] [place] [address] 02/03/2024 2:40 PM EDT Office Visit General Internal Medicine [facility] [address] [facility] [place] [address] Micah Whitmore MD [address] [facility] [place] [address] 02/18/2024 9:30 AM EDT Cardiac Studies Cardiac Studies, [facility] [address] [facility] [place] [id number] 05/05/2024 3:00 PM EST Office [facility], [facility] [address] [facility] [place] [address] Rakel Redman MD [address] [facility] [place] [address] Health Maintenance Due Date Last Done Comments Colonoscopy 1995 Sigmoidoscopy 1995 Fecal Occult Blood Test 10/19/2017 10/19/2016, 10/13 Diabetic Eye Exam 04/21/2023 04/21/2022, , 02/04/2021, Additional history exists Depression Screening 08/14/2023 08/13/2022 Diabetic Foot Exam 08/14/2023 08/13/2022, 0 09/26/2020, 10/17/2019, Additional history exists GFR 12/23/2023 06/24/2023, 01/01, 12/31/2022, Additional history exists B-12 01/01/2024 12/31/2022, 08/01, 09/26/2020, Additional history exists TSH 01/01/2024 12/31/2022, 06/04, 08/18/2021, Additional history exists HbA1c 01/06/2024 07/06/2023, 12/03, 06/25/2022, Additional history exists Mammogram 01/26/2024 01/25/2023, 01/02, 10/17/2021, Additional history exists DXA Scan 02/03/2024 02/02/2017, 02/02/2017 CKD PHOS USE SMARTSET 57199 06/24/202406/04, 12/31/2022, 08/25/2021, Additional history exists Albumin/Creatinine Ratio 06/25/2024 024, 11/24/2022, 07/07/2022, Additional history exists CKD HGB USE SMARTSET 21311 07/05/202407/05, 07/06/2023, 11/24/2022, Additional history exists Cologuard 09/24/2025 09/24/2022, 08/31, 09/17/2022, Additional history exists Colorectal Cancer Screening 09/24/2025 Lipid Panel 07/05/2028 07/06/2023, 06/04, 08/18/2021, Additional history exists DTaP,Tdap,and Td Vaccines (3 - Td or Tdap) 12/31/2032 12/31/2022, 06/30/2012 Pneumococcal Vaccine: 65+ Years Completed 10/27/2017, 07/31/2016, 05/24/2012 Hepatitis B Completed 05/05/2018, 11/01, 10/27/2017 Zoster Vaccines Completed 10/17/2020, 10/2020, 03/27/2014 Influenza Vaccine (FLU shot) Completed , 02/03/2022, 02/10/2021, Additional history exists COVID-19 Vaccine Completed 06/22/2023, 08/2021, 12/04/2021, Additional history exists GARDASIL-HPV IMMUNIZATION SERIES Aged Out No longer eligible based on patient's age to complete this topic MENINGOCOCCAL (MENACTRA/MENVEO) Aged Out No longer eligible based on patient's age to complete this topic documented as of this encounter Medical Devices Not on filedocumented as of this encounter Procedures Procedure Name Priority Date/Time Associated Diagnosis Comments INR FINGERSTICK, POINT OF CARE STAT 07/19/2023 3:07 PM EDT PAF (paroxysmal atrial fibrillation) (HCC) documented in this encounter Results * INR FINGERSTICK, POINT OF CARE (07/19/2023 3:07 PM EDT) Fingerstick INR 2.7 INR 3:08 PM EDT [facility]-02 Blood 07/19/2023 3:07 PM EDT 07/19/2023 3:08 PM EDT [facility]-02 - 07/19/2023 3:08 PM EDT Therapeutic ranges for non-operative patients: Prophylaxsis/treatment of DVT: (Range:2.0-3.0) Treatment of pulmonary embolism:(Range:2.0-3.0) Prevention of systemic embolism from: -tissue heart valves -acute myocardial infarction -valvular heart disease -atrial fibrillation (Range: 2.0-3.0) Mechanical prosthetic valves: (Range: 2.5-3.5) Shravan Crane [facility] LAB POINT O F CARE TEST DOCKED DEVICE UNSOLICITED RESULTS [facility] [address] [place] [address] documented in this encounter Visit Diagnoses Diagnosis PAF (paroxysmal atrial fibrillation) (HCC)- Primary Atrial fibrillation documented in this encounter Care Teams Feed Project Engineer Relationship Specialty Start Date End Date Micah Whitmore MD [address] [place] [address] PCP - General Internal Medicine 09/14/18 documented as of this encounter"
--- OUTSIDE RECORDS SUMMARY | 2023-07-30 22:36 | External Medical Summary | Summary of Care ---
Author Name Unknown Organization [facility] Address [address] [place] [address] Phone [phone] Care Team Providers Care Bucket Operator Name Role Phone Micah Whitmore MD Primary Care Provider + Reason for Referral * Evaluate & Treat - Unlimited Visits (Within 30 days (routine)) - Authorized Specialty Diagnoses / Procedures Referred By Heber t Referred To Contact Orthopaedic Surgery / Orthopedics Diagnoses Chronic pain of right knee Micah Whitmore MD [address] [place] [address] Referral ID Status Reason Start Date Expiration Date Visits Requested Visits Authorized [id number] Authorized Specialty Services Required 07/21/[phone] Question Answer Referral Priority Within 30 days (routine) Where should this appointment be scheduled? [facility] What body part is the patient being seen for? Thigh/Knee What condition is the patient being seen for? Arthritis including related infection Reason for Visit * Reason Comments Follow Up 6 month follow up - pt c/o right knee pain that has worsened over the past week. Pt would also like to discuss ozempic dosage Encounter Details Date Type Department Care Team (Late st Contact Info) Description 07/19/2023 2:20 PM EDT Office Visit General Internal Medicine [facility] [address] [place] [id number] Micah Whitmore MD [address] [place] [address] [address] Type 2 diabetes mellitus with stage 3a chronic kidney disease, without long-term current use of insulin (HCC)*; PAF (paroxysmal atrial fibrillation) (HCC); Hypothyroidism due to medication; Mixed hyperlipidemia; Morbid obesity with BMI of 45.0-49.9, adult (HCC); Chronic diastolic congestive heart failure (HCC); Pulmonary hypertension (HCC); Positive colorectal cancer screening using Cologuard test; Encounter for long-term (current) use of medications; Chronic pain of right knee; EDYTA on CPAP; Chronic gout without tophus, unspecified cause, unspecified site; Hypertensive heart and kidney disease with chronic diastolic congestive heart failure and stage 3a chronic kidney disease (HCC) Allergies Active Allergy Reactions Criticality Noted Date Comments Erythromycin Base Low 02/03/2020 Other reaction(s): GI UPSET Gabapentin 10/31/2021 Tremors Penicillins Rash 05/24/2012 documented as of this encounter (statuses as of 07/21/2023) Medications Medication Sig Dispensed Refills Start Date End Date Status VITAMIN D 1000 UNIT PO TABS one daily 0 Active Acetaminophen 500 MG Oral Tablet (TYLENOL) Take 2 Tablets by mouth every 8 hours as needed. 0 0 Active Omeprazole 20 MG Oral Tablet Delayed ReleaseIndication s:Gastroesophagea l reflux disease without esophagitis Take 1 Tablet by mouth in the morning. 60 Tab 1 1 Active Iron-Vitamin C 65-125 MG Oral Tablet Take 1 Tablet by mouth. On Wednesday, Wednesday, and Wednesday only 0 Active Warfarin Sodium 5 MG Oral Tablet (Coumadin)Indicat ions:PAF (paroxysmal atrial fibrillation) (HCC) Take 1 Tablet by mouth daily. Or as directed by anticoagulation clinic 90 Tablet 2 3 Active Repaglinide 0.5 MG Oral Tablet (Prandin)Indicati ons: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 disease, without long-term current use of insulin (HCC) TAKE ONE TABLET BY MOUTH THREE TIMES A DAY 15 MINUTES BEFORE MEALS 270 Tablet 2 3 Active Metoprolol Tartrate 100 MG Oral Tablet (Lopressor)Indica tions:PAF (paroxysmal atrial fibrillation) (HCC),HTN, goal below 140/90 TAKE ONE-HALF TABLET BY MOUTH EVERY MORNING AND TAKE ONE-HALF TABLET BY MOUTH BEFORE BEDTIME 90 Tablet 3 3 12/06/19 24 Active Magnesium Oxide 400 MG Oral Tablet Take 1 Tablet by mouth every evening. 0 Active Multivitamin Adult Oral Tablet Take by mouth. 0 Act evelyn Spironolactone 25 MG Oral Tablet (Aldactone)Indica tions:HTN, goal below 140/90 Take 1 Tablet by mouth in the morning. 100 Tablet 3 3 Active metFORMIN HCl ER 500 MG Oral Tablet Extended Release 24 Hour (Glucophage XR)Indications:Ty pe 2 diabetes mellitus with hemoglobin A1c goal of less than 7.5% (HCC) Take by mouth 1 Tablet in the morning. 90 Tablet 3 3 Active Bumetanide 1 MG Oral Tablet (Bumex)Indication s:PAF (paroxysmal atrial fibrillation) (HCC),HTN, goal below 140/90 Take 1 Tablet by mouth in the morning. 100 Tablet 3 3 Active Amiodarone HCl 200 MG Oral Tablet (Cordarone)Indica tions:PAF (paroxysmal atrial fibrillation) (HCC) TAKE ONE TABLET BY MOUTH EVERY DAY 90 Tablet 4 3 03/17/20 24 Active Rosuvastatin Calcium 10 MG Oral Tablet (Crestor) TAKE ONE TABLET BY MOUTH EVERY DAY 90 Tablet 1 3 03/30/20 24 Active Allopurinol 100 MG Oral Tablet (Zyloprim)Indicat ions:Gout TAKE TWO TABLETS BY MOUTH EVERY MORNING 180 Tablet 1 3 03/30/20 24 Active Lisinopril 10 MG Oral Tablet (Prinivil)Indicat ions: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 disease, without long-term current use of insulin, unspecified whether stage 3a or 3b CKD (HCC) TAKE ONE TABLET BY MOUTH EVERY MORNING 90 Tablet 3 4 07/16/19 25 Active Levothyroxine Sodium 112 MCG Oral Tablet (Levoxyl)Indicati ons:Hypothyroidis m due to medication TAKE 1 TABLET BY MOUTH DAILY AT LEAST 30 MINUTES PRIOR TO FIRST MEAL OF THE DAY OR OTHER MEDICATIONS 90 Tablet 3 4 07/16/19 25 Active amLODIPine Besylate 5 MG Oral Tablet (Norvasc)Indicati ons:HTN, goal below 140/90 TAKE ONE TABLET BY MOUTH TWICE A DAY -- IN THE MORNING AND BEFORE BEDTIME 180 Tablet 3 4 07/16/19 25 Active Ozempic (2 MG/DOSE) 8 MG/3ML Subcutaneous Solution Pen-injector (Semaglutide (2 MG/DOSE))Indicati ons:Type 2 diabetes mellitus with stage 3a chronic kidney disease, without long-term current use of insulin (HCC) Inject 2 mg under the skin once a week. 9 mL 1 4 Active Ozempic (1 MG/DOSE) 4 MG/3ML Subcutaneous Solution Pen-injector (Semaglutide (1 MG/DOSE))Indicati ons:Type 2 diabetes mellitus with hemoglobin A1c goal of less than 8.0% ([facility]) Inject 1 mg under the skin once a week. Dose increase 9 mL 4 3 07/19/19 24 Discontinu ed(Medicat ion List Clean Up) Doxycycline Hyclate 100 MG Oral CapsuleIndication s:Cellulitis of right lower extremity Take 1 Capsule by mouth in the morning and 1 Capsule before bedtime. Do all this for 10 days. Until gone.. 20 Capsule 0 3 07/19/19 24 Discontinu ed(Patient preference /discontin uation) documented as of this encounter (statuses as of 07/21/2023) Active Problems Problem Noted Date Diagnosed Date [...] as of this encounter (statuses as of 07/21/2023) Resolved Problems Problem Noted Date Diagnosed Date [...] anterior with complication, initial encounter 04/05/2020 07/30/19 21 Osteomyelitis of vertebra, lumbar region 03/15/2020 06/03/2021 [...] Per CKD protocol #1 Statin intolerance 05/07/2014 8 Overview: To lipitor Carpal tunnel syndrome 06/30/201209/16 ADVANCE DIRECTIVE INFORMATION 05/04/2007 10/27/2017 Overview: Yes, Patient instructed to provide copy of advance directive for provider to review and to be scanned into Electronic Medical Record HTN, goal below 140/80 10/16 Overview: Per HTN Protocol Gastric ulcer due to Helicobacter pylori 10/27/2017 Overview: NSAID and h pylori documented as of this encounter (statuses as of 07/21/2023) Immunizations Name Administration Dates Next Due COVID-19 mRNA, LNP-s, No Pre serve, 2-Dose Series ([employer]) 02/25/2021,07/23/2020,06/27/2020 COVID-19, LNP-s, No Preserve , Derek-sucrose, Ages 12+ ([employer]) 12/04/2021 COVID-19, MRNA-LNP, 23-24, P F, 30 MCG/0.3 mL, 12 YRS AND ABOVE, IM ([facility]) 06/22/2023 Covid-19, Mrna, Lnp-s, Pf, B ivalent, 30 Mcg, IM, 12 yrs and above ([employer]) 02/03/2022 HepA Inact/HepB Recomb>=18yrs old 05/05/2018,,10/27/2017 04/28/2018 [...] Date Smoking Tobacco: Never Smokeless Tobacco: Never Tobacco Cessation:Counseling Given: Not Answered Alcohol Use Standard Drinks/Week Comments Yes 0.8 [...] file Travel History Travel Start Travel End [facility] 07/14/2023 07/16/2023 documented as of this encounter Last Filed Vital Signs Vital Sign Reading Time Taken Comments Blood Pressure 130/60 07/19/2023 2:22 PM EDT Pulse 87 07/19/2023 2:22 PM EDT Temperature 35.4 C (95.8 F) 07/19/2023 2:22 PM ED T Respiratory Rate - - Oxygen Saturation 97% 07/19/2023 2:22 PM EDT Inhaled Oxygen Concentration - - Weight 109.3 kg (240 lb 14.4 oz) 07/19/2023 2:22 PM EDT Height 154.9 cm (5' 1") 07/19/2023 2:22 PM EDT Body Mass Index 45.52 07/19/2023 2:22 PM EDT documented in this encounter Progress Notes * Micah Whitmore MD - 07/19/2023 2:47 PM EDT Chief Complaint Patient presents with Follow Up 6 month follow up - pt c/o right knee pain that has worsened over the past week. Pt would also liketo discuss ozempic dosage SUBJECTIVE: Alex Paulion is a 73 year old female with PMH as below who presents for follow up of DM, lipids, PAF, EDYTA. No cp, sob, arellano and she feels good overall. Wounds on feet healed! Using ozempic, helping sugars and weight lowest it was in 40 years. Stopped dieretics on cruise last week, resuming now, some edema. No er visits or hospitalizations. No n/v/d no gout flares. Still working 1 day/week. Chronic r ight knee pain worse past 1-2 weeks no trauma, was on cruise to [facility]. Patient Active Problem List Diagnosis Code Gout M10.9 Hx of basal cell carcinoma Z85.828 Mixed hyperlipidemia E78.2 PAF (paroxysmal atrial fibrillation) ([facility]) I48.0 Nocturnal hypoxemia G47.34 Hypothyroidism due to medication E03.2 Hypertensive kidney disease with stage 3a chronic kidney disease (HCC) I12.9, N18.31 Pulmonary hypertension ([facility]) I27.20 Chronic pain of both knees M25.561, M25.562, G89.29 EDYTA on CPAP G47.33 History of CVA (cerebrovascular accident) Z86.73 History of gastric ulcer Z87.11 Right shoulder pain M25.511 Type 2 diabetes mellitus with hemoglobin A1c goal of less than 8.0% ([facility]) E11.9 Chronic bilateral low back pain without sciatica M54.50, G89.29 Gastroesophageal reflux disease without esophagitis K21.9 Type 2 diabetes mellitus with stage 3a chronic kidney disease, without long-term current use of insulin ([facility]) E11.22, N18.31 Chronic diastolic heart failure ([facility]) I50.32 Hypertensive heart and kidney disease with chronic diastolic congestive heart failure and stage 3a chronic kidney disease ([facility]) I13.0, I50.32, N18.31 Body mass index (BMI) of 40.0 to 44.9 in adult ([facility]) Z68.41 Morbid obesity with BMI of 45.0-49.9, adult ([facility]) E66.01, Z68.42 Current Outpatient Medications Medication Sig Dispense Refill VITAMIN D 1000 UNIT PO TABS one daily Acetaminophen 500 MG Oral Tablet (TYLENOL) Take 2 Tablets by mouth every 8 hours as needed. Omeprazole 20 MG Oral Tablet Delayed Release Take 1 Tablet by mouth in the morning. 60 Tab 1 Iron-Vitamin C 65-125 MG Oral Tablet Take 1 Tablet by mouth. On Wednesday, Wednesday, and Wednesday only Warfarin Sodium 5 MG Oral Tablet (Coumadin) Take 1 Tablet by mouth daily. Or as directed by anticoagulation clinic 90 Tablet 2 Repaglinide 0.5 MG Oral Tablet (Prandin) TAKE ONE TABLET BY MOUTH THREE TIMES A DAY 15 MINUTES BEFORE MEALS 270 Tablet 2 Metoprolol Tartrate 100 MG Oral Tablet (Lopressor) TAKE ONE-HALF TABLET BY MOUTH EVERY MORNING AND TAKE ONE-HALF TABLET BY MOUTH BEFORE BEDTIME 90 Tablet 3 Magnesium Oxide 400 MG Oral Tablet Take 1 Tablet by mouth every evening. Multivitamin Adult Oral Tablet Take by mouth. Spironolactone 25 MG Oral Tablet (Aldactone) Take by mouth 1 Tablet in the morning. 100 Tablet 3 metFORMIN HCl ER 500 MG Oral Tablet Extended Release 24 Hour (Glucophage XR) Take by mouth 1 Tabletin the morning. 90 Tablet 3 Bumetanide 1 MG Oral Tablet (Bumex) Take 1 Tablet by mouth in the morning. 100 Tablet 3 Amiodarone HCl 200 MG Oral Tablet (Cordarone) TAKE ONE TABLET BY MOUTH EVERY DAY 90 Tablet 4 Rosuvastatin Calcium 10 MG Oral Tablet (Crestor) TAKE ONE TABLET BY MOUTH EVERY DAY 90 Tablet 1 Allopurinol 100 MG Oral Tablet (Zyloprim) TAKE TWO TABLETS BY MOUTH EVERY MORNING 180 Tablet 1 Lisinopril 10 MG Oral Tablet (Prinivil) TAKE ONE TABLET BY MOUTH EVERY MORNING 90 Tablet 3 Levothyroxine Sodium 112 MCG Oral Tablet (Levoxyl) TAKE 1 TABLET BY MOUTH DAILY AT LEAST 30 MINUTESPRIOR TO FIRST MEAL OF THE DAY OR OTHER MEDICATIONS 90 Tablet 3 amLODIPine Besylate 5 MG Oral Tablet (Norvasc) TAKE ONE TABLET BY MOUTH TWICE A DAY -- IN THE MORNING AND BEFORE BEDTIME 180 Tablet 3 Ozempic (2 MG/DOSE) 8 MG/3ML Subcutaneous Solution Pen-injector (Semaglutide (2 MG/DOSE)) Inject 2 mg under the skin once a week. 9 mL 1 No current facility-administered medications for this visit. Review of patient's allergies indicates: Allergen Reactions Gabapentin Tremors Penicillins Rash Erythromycin Base Other reaction(s): GI UPSET Health Maintenance Due Topic Date Due Diabetic Eye Exam 04/21/2023 Diabetic Foot Exam 08/14/2023 Depression Screening 08/14/2023 ROS: CONSTITUTIONAL: No fevers, sweats, or chills EYE: No recent significant change in vision, No eye pain, redness, discharge, and No diplopia EARS: No ear pain, No drainage, No tinnitus or vertigo, and No recent change in hearing PULMONARY: No cough, sputum, or hemoptysis, No wheezing, No rales, No shortness of breath, and No recent change in breathing CARDIOVASCULAR: No chest pain, No shortness of breath, No dyspnea on exertion, No orthopnea, No paroxysmal nocturnal dyspnea, No palpitations, and No syncope GASTROINTESTINAL: No abdominal pain, No change in bowel habits, No significant heartburn, No significant change in appetite, No nausea, vomiting, diarrhea, or constipation, No hematemesis, No blood in stools or black tarry stools, No abdominal bloating or early satiety, and No dysphagia ALL OTHER SYSTEMS NEGATIVE I reviewed social, PMH, PSH, and family history and updated where needed. 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 Lives with cat. Social Determinants of Health Financial Resource Strain: Not on file Food Insecurity: No Food Insecurity (08/13/2022) Hunger Vital Sign Worried About Running Out of Food in the Last Year: Never true Ran Out of Food in the Last Year: Never true Transportation Needs: Not on file Physical Activity: Not on file Stress: Not on file Social Connections: Not on file Intimate Partner Violence: Not on file Housing Stability: Not on file Past Medical History: Diagnosis Date Carpal tunnel syndrome 06/30/2012 Gastric ulcer due to Helicobacter pylori NSAID and h pylori History of CVA (cerebrovascular accident) 10/27/2017 HTN, goal below 140/80 Non-pressure chronic ulcer of unspecified part of left lower leg with unspecified severity (HCC) 07/27/2017 Open wound of abdomen 06/28/2020 Osteoarthritis Statin intolerance 05/07/2014 To lipitor Type 2 diabetes mellitus with hemoglobin A1c goal of less than 8.0% ([facility]) 06/09/2019 Type 2 diabetes, HbA1c goal < 7% ([facility]) Past Surgical History: Procedure Laterality Date ARTHROPLASTY KNEE TOTAL 2004 left CARPAL TUNNEL SYNDROME EDU. Bilateral 2013 [place] CATARACT SURGERY,COMPLEX Left 04/16/2021 DEBRIDEMENT, MUSCLE/FASCIA, EACH ADDL 20CM2 04/09/2020 abdominal - with local DESTROY LUMBAR SACRAL NERVE IMAGING SINGLE 03/23/2019 DESTROY LUMBAR SACRAL NERVE IMAGING SINGLE performed by Cuco Sofie Cousins, DO at OR [facility] EXCISION EXCES SKIN,PANNICULECTOMY,INFRAUMB 09/12/2020 [facility] INJECT DX/THER SUBSTANCE INTERLAMINAR LUMBAR/SACRAL W IMAGE GUIDE 06/22/2019 INJECTION SPINE LUMBAR OR SACRAL performed by Cuco Sofie Cousins, DO at OR [facility] L-/S-SPINE PARAVERTEBRAL FACET INJ,1 LEVEL 02/27/2019 L-/S-SPINE PARAVERTEBRAL FACET INJ, 1 LEVEL performed by Cuco B Cousins, DO at OR [facility] L-/S-SPINE PARAVERTEBRAL FACET INJ,1 LEVEL 03/09/2019 L-/S-SPINE PARAVERTEBRAL FACET INJ, 1 LEVEL performed by Cuco Carrizales Cousins, DO at OR [facility] MOHS SURGERY REFERRAL OP Right 2013 surgery bcc - hairline REMOVE TONSILS & ADENOIDS, UNDER 12 As a child REPAIR SHOULDER CUFF AVULSION 2002 right SACROILIAC JOINT INJECT W/GUIDANCE 11/17/2018 INJECTION SACROILIAC JOINT performed by [facility] Cousins, DO at OR [facility] SACROILIAC JOINT INJECT W/GUIDANCE 05/18/2019 INJECTION SACROILIAC JOINT performed by [facility] Cousins, DO at OR [facility] Family History Problem Relation Age of Onset Diabetes Mother Heart disease Mother Hypertension Father Stroke Father Basal cell carcinoma Father Other (gout) Father at 90 Other (congential pulmonic stenosis) Daughter Other (pituitary adenoma) Daughter Heart disease Brother Pacemaker Diabetes Grandmother (Maternal) Breast Cancer Cousin (Maternal) OBJECTIVE: PHYSICAL EXAM: BP 130/60 | Pulse 87 | Temp 35.4 C (95.8 F) (Tympanic) | Ht 1.549 m (5' 1") | Wt 109.3 kg (240 lb 14.4 oz) | SpO2 97% | BMI 45.52 kg/m | BSA 2.17 m General: alert, healthy, and no distress Head: Normocephalic, No masses, lesions, or abnormalities Eye Exam: conjunctiva are pink and non-injected, sclera clear Heart: regular rate & rhythm, II/ murmur, no gallops, S-1 normal, and S-2 normal Lungs: normal respiratory rate and rhythm, lungs clear to auscultation Extremities: no clubbing, no cyanosis, +trace edema bilaterally, pain to palpation medial knee right side Neuro Exam: alert with fluent speech stands on own, walks with poles I reviewed last A1c, cbc, lft, lipid, tsh ASSESSMENT: E11.22,N18.31 Type 2 diabetes mellitus with stage 3a chronic kidney disease, without long-term current use of insulin ([facility]) (primary encounter diagnosis) I48.0 PAF (paroxysmal atrial fibrillation) ([facility]) E03.2 Hypothyroidism due to medication E78.2 Mixed hyperlipidemia E66.01,Z68.42 Morbid obesity with BMI of 45.0-49.9, adult ([facility]) I50.32 Chronic diastolic congestive heart failure (HCC) I27.20 Pulmonary hypertension ([facility]) R19.5 Positive colorectal cancer screening using Cologuard test Z79.899 Encounter for long-term (current) use of medications M25.561,G89.29 Chronic pain of right knee G47.33 EDYTA on CPAP M1A.9XX0 Chronic gout without tophus, unspecified cause, unspecified site I13.0,I50.32,N18.31 Hypertensive heart and kidney disease with chronic diastolic congestive heart failure and stage 3a chronic kidney disease (HCC) PLAN: Type 2 diabetes mellitus with stage 3a chronic kidney disease, without long-term current use of insulin ([facility]) (Primary) - Ozempic (2 MG/DOSE) 8 MG/3ML Subcutaneous Solution Pen-injector (Semaglutide (2 MG/DOSE)); Inject2 mg under the skin once a week. - HEMOGLOBIN A1C; Future; Expected date: 01/19/2024 Cont ozempic, metformin, prandin Increase ozempic to 2 mg The potential side effects of this medication have been discussed with thepatient. Call if any significant problems with these are experienced. PAF (paroxysmal atrial fibrillation) (HCC) Cont amiodarone, metoprolol Cont coumadin Sees cardiology Hypothyroidism due to medication - TSH; Future; Expected date: 01/19/2024 Cont levothyroxine Mixed hyperlipidemia - COMPREHENSIVE METABOLIC PANEL; Future; Expected date: 01/19/2024 - LIPID PANEL WITH DIRECT LDL IF TG IS HIGH; Future; Expected date: 01/19/2024 Cont rosuvastatin Morbid obesity with BMI of 45.0-49.9, adult (HCC) Cont ozempic, diet Chronic diastolic congestive heart failure (HCC) Resume bumex, aldactone! Pulmonary hypertension (HCC) Sees cardiology Positive colorectal cancer screening using Cologuard test Discussed c-scope, still declines outpatient screen, aware recs Encounter for long-term (current) use of medications - IRON SCREEN, INCLUDING TIBC; Future; Expected date: 01/19/2024 - VITAMIN B12; Future; Expected date: 01/19/2024 Chronic pain of right knee - XR KNEE 4 OR MORE VIEWS EDYTA on CPAP Cont cpap Chronic gout without tophus, unspecified cause, unspecified site - URIC ACID; Future; Expected date: 01/19/2024 Cont allopurinol Hypertensive heart and kidney disease with chronic diastolic congestive heart failure and stage 3a chronic kidney disease (HCC) As above Cont amlodipine, lisinopril, aldactone, metoprol, bumex Follow Up: Return in about 6 months (around 01/19/2024), or if symptoms worsen or fail to improve, for Fasting Labs 2-5 Days Before Next Visit. | For: Fasting Labs 2-5 Days Before Next Visit | Check-out note: [facility] - [facility]tho [facility] Micah Whitmore MD documented in this encounter Nursing Notes * Shani Han, MED ASSIST - 07/19/2023 2:21 PM EDT Chief Complaint Patient presents with Follow Up 6 month follow up - pt c/o right knee pain that has worsened over the past week. Pt would also liketo discuss ozempic dosage Patient has been verbally educated on the need or importance of Diabetic Foot Exam and has declinedtopic(s). documented in this encounter Miscellaneous Notes * Addendum Note - Micah Whitmore MD - 07/21/2023 5:05 PM EDTAddended by: MICAH WHITMORE on: 07/21/2023 05:05 PM Modules accepted: Orders documented in this encounter Plan of Treatment Upcoming Encounters Date Type Department Care Team (Late st Contact Info) Description 08/17/2023 1:30 PM EDT Anticoagulation Pharmacy, [place] [address] [place] [address] [facility] [address] [place] [address] 08/19/2023 9:30 AM EDT Office Visit Cardiology, [facility] [address] [facility] [place] [address] Florentin Senior PA-C [address] [place] [address] 08/19/2023 1:00 PM EDT Nurse Only Ancillary [facility] [place] [address] [place] [address] Im, Nurse Annual Wellness [facility] [address] [place] [address] 11/09/2023 9:40 AM EDT Office Visit Dermatology [facility] [place] [address] [place] [address] Crystal Hernández PA-C [address] [facility] [place] [phone] 01/04/2024 3:20 PM EDT Office Visit Sleep Disorders [facility] [address] [facility] [place] [phone] Liudmila Singleton, [address] [place] [address] 01/27/2024 1:00 PM EDT Imaging Radiology [facility] 1st Floor, [place] [address] [facility] [place] [address] 02/03/2024 2:40 PM EDT Office Visit General Internal Medicine [facility] [address] [facility] [place] [address] Micah Whitmore MD [address] [facility] [place] [address] 02/18/2024 9:30 AM EDT Cardiac Studies Cardiac Studies, [facility] [address] [facility] [place] [address] 05/05/2024 3:00 PM EST Office Visit Nephrology, [facility] [address] [facility] [place] [address] Rakel Redman MD [address] [facility] [place], [place] [address] Scheduled Orders Name Type Priority Associated Diagnoses Orde r Schedule COMPREHENSIVE METABOLIC PANEL Lab Routine Mixed hyperlipidemia Expected: 01/19/2024 (Approximate), Expires: 07/18/2024 LIPID PANEL WITH DIRECT LDL IF TG IS HIGH Lab Routine Mixed hyperlipidemia Expected: 01/19/2024, Expires: 07/18/2024 HEMOGLOBIN A1C Lab Routine Type 2 diabetes mellitus with stage 3a chronic kidney disease, without long-term current use of insulin (HCC) Expected: 01/19/2024 (Approximate), Expires: 07/18/2024 TSH Lab Routine Hypothyroidism due to medication Expected: 01/19/2024 (Approximate), Expires: 07/18/2024 IRON SCREEN, INCLUDING TIBC Lab Routine Encounter for long-term (current) use of medications Expected: 01/19/2024 (Approximate), Expires: 07/18/2024 VITAMIN B12 Lab Routine Encounter for long-term (current) use of medications Expected: 01/19/2024 (Approximate), Expires: 07/18/2024 URIC ACID Lab Routine Chronic gout without tophus, unspecified cause, unspecified site Expected: 01/19/2024 (Approximate), Expires: 07/18/2024 Scheduled Referrals Name Type Priority Associated Diagnoses Order Schedule ORTHOPAEDICS REFERRAL OP Referral Within 30 days (routine) Chronic pain of right knee Ordered: 07/21/2023 Health Maintenance Due Date Last Done Comments [...] 02/03/2024 02/02/2017, 02/02/2017 CKD PHOS USE SMARTSET 86155 06/24/202406/04, 12/31/2022, 08/25/2021, Additional history exists Albumin/Creatinine Ratio 06/25/2024 024, 11/24/2022, 07/07/2022, Additional history exists CKD HGB USE SMARTSET 55856 07/05/202407/05, 07/06/2023, 11/24/2022, Additional history exists Cologuard [...] Procedure Name Priority Date/Time Associated Diagnosis Comments XR KNEE 4 OR MORE VIEWS Routine 07/19/2023 3:36 PM EDT Chronic pain of right knee documented in this encounter Results * XR KNEE 4 OR MORE VIEWS (07/19/2023 3:36 PM EDT) Anatomical Region Laterality Modality Knee, Lower Extremity Computed R adiography 07/21/2023 4:13 PM EDT Impressions 07/21/2023 4:11 PM EDT IMPRESSION Advanced right knee osteoarthritis, increased compared to prior radiographs. Narrative 07/21/2023 4:11 PM EDT EXAM XR KNEE 4 OR MORE VIEWS,07/19/2023 3:36 pm. HISTORY 73 y/o withright knee pain. COMPARISON Radiographs from 07/28/2017. TECHNIQUE Right knee, four views. FINDINGS No visible fracture. Alignment is normal. Severe tricompartmental osteoarthritis. There is up to 1.3 cm lateral tibial translation. No significant soft tissue abnormality. Procedure Note Jonathan Crenshaw MD - 07/21/2023 EXAM XR KNEE 4 OR MORE VIEWS,07/19/2023 3:36 pm. HISTORY 73 y/o withright knee pain. COMPARISON Radiographs from 07/28/2017. TECHNIQUE Right knee, four views. FINDINGS No visible fracture. Alignment is normal. Severe tricompartmentalosteoarthritis. There is up to 1.3 cm lateral tibial translation. Nosignificant soft tissue abnormality. IMPRESSION IMPRESSION Advanced right knee osteoarthritis, increased compared to priorradiographs. Micah Whitmore MD RADIOLOGY (RAD G ENERAL) documented in this encounter Visit Diagnoses Diagnosis Type 2 diabetes mellitus with stage 3a chronic kidney disease, without long-term current use of insulin (HCC)- Primary PAF (paroxysmal atrial fibrillation) (HCC) Atrial fibrillation Hypothyroidism due to medication Mixed hyperlipidemia Morbid obesity with BMI of 45.0-49.9, adult (HCC) Morbid obesity Chronic diastolic congestive heart failure (HCC) Chronic diastolic heart failure Pulmonary hypertension (HCC) Other chronic pulmonary heart diseases Positive colorectal cancer screening using Cologuard test Encounter for long-term (current) use of medications Encounter for long-term (current) use of other medications Chronic pain of right knee EDYTA on CPAP Obstructive sleep apnea (adult) (pediatric) Chronic gout without tophus, unspecified cause, unspecified site Hypertensive heart and kidney disease with chronic diastolic congestive heart failure and stage 3a chronic kidney disease (HCC) documented in this encounter Care Teams Bucket Operator Relationship Specialty Start Date End Date Micah Whitmore MD [address] [place] [address] PCP - General Internal Medicine 09/14/18 documented as of this encounter
--- OUTSIDE RECORDS SUMMARY | 2023-07-30 22:36 | External Medical Summary | Summary of Care ---
Author Name Unknown Organization [facility] Address [address] [place] [address] Phone [phone] Care Team Providers Care Peoplesoft Administrator Name Role Phone Micah Whitmore MD Primary Care Provider + Reason for Visit * Reason Comments Outpatient Testing Encounter Details Date Type Department Care Team (Late st Contact Info) Description 07/06/2023 10:20 AM EST Laboratory Laboratory, [place] [address] [place] [address] [facility] [address] [place] [address] Type 2 diabetes mellitus with stage 3a chronic kidney disease, without long-term current use of insulin (HCC); Hypertensive heart and kidney disease with chronic diastolic congestive heart failure and stage 3a chronic kidney disease (HCC) Allergies Active Allergy Reactions Criticality Noted Date Comments Erythromycin Base Low 02/03/2020 Other reaction(s): GI UPSET Gabapentin 10/31/2021 Tremors Penicillins Rash 05/24/2012 documented as of this encounter (statuses as of 07/06/2023) Medications Medication Sig Dispensed Refills Start Date [...] Wednesday, Wednesday, and Wednesday only 0 Active amLODIPine Besylate 5 MG Oral Tablet (Norvasc)Indicatio ns:HTN, goal below 140/90 TAKE ONE TABLET BY MOUTH TWICE A DAY -- IN THE MORNING AND BEFORE BEDTIME 180 Tablet 3 06/30/2022 4 Active Lisinopril 10 MG Oral Tablet (Prinivil)Indicati ons: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 disease, without long-term current use of insulin, unspecified whether stage 3a or 3b CKD (HCC) TAKE ONE TABLET BY MOUTH EVERY MORNING 90 Tablet 3 06/30/2022 4 Active Levothyroxine Sodium 112 MCG Oral Tablet (Levoxyl)Indicatio ns:Hypothyroidism due to medication TAKE 1 TABLET BY MOUTH DAILY AT LEAST 30 MINUTES PRIOR TO FIRST MEAL OF THE DAY OR OTHER MEDICATIONS 90 Tablet 3 06/30/2022 4 Active Warfarin Sodium 5 MG Oral Tablet [...] BEDTIME 90 Tablet 3 12/06/2022 4 Active Ozempic (1 MG/DOSE) 4 MG/3ML Subcutaneous Solution Pen-injector (Semaglutide (1 MG/DOSE))Indicatio ns:Type 2 diabetes mellitus with hemoglobin A1c goal of less than 8.0% ([facility]) Inject 1 mg under the skin once a week. Dose increase 9 mL 4 01/26/2023 Active Magnesium Oxide 400 MG Oral Tablet [...] MORNING 180 Tablet 1 03/31/2023 4 Active documented as of this encounter (statuses as of 07/06/2023) Active Problems Problem Noted Date Diagnosed Date Hypertensive heart and kidne y disease with chronic diastolic congestive heart failure and stage 3a chronic kidney disease 12/18/2022 Body mass index (BMI) of 45.0 to 49.9 in adult 0 12/14/2022 Overview: Per Obesity protocol - Per Obesity protocol Chronic diastolic heart failure 10/17/2021 Gastroesophageal reflux disease without esophagi tis 06/18/2021 Type 2 diabetes mellitus wit h stage 3a chronic kidney disease, without long-term current use of insulin 06/18/2021 Lymphedema 05/09/2020 Type 2 diabetes mellitus wit h hemoglobin [...] hypertension 07/27/2017 Hypothyroidism due to medication 04/22/2017 Localized edema 08/03/2016 PAF (paroxysmal atrial fibrillation) 07/26/2016 Nocturnal hypoxemia 07/26/2016 Mixed hyperlipidemia 05/07/2014 Hx of basal cell carcinoma 09/28/2012 Overview: CC central frontal and L frontal scalp 12/2019, BCC R upper back 10/2018, BCC L superior helix 2016,BCC R frontal scalp 01/2014, L medial cheek/lower eyelid and R upper back - both 2007 Gout 05/28/2012 documented as of this encounter (statuses as of 07/06/2023) Resolved Problems Problem Noted Date Diagnosed Date Resolved Date Body mass index (BMI) of 50. 0 [...] disease 09/13/202006/04 Open wound of abdomen 06/28/20202022 Wound, open, abdominal wall, anterior with complication, [...] obesity due to excess calories 10/19/2016 09/16/2018 HTN, goal below 140/90 10/14/201507/27 Overview: Per [...] as of this encounter (statuses as of 07/06/2023) Immunizations Name Administration Dates Next Due COVID-19 mRNA, LNP-s, No Pre serve, 2-Dose Series ([employer]) 02/25/2021,07/23/2020,06/27/2020 COVID-19, LNP-s, No Preserve , Derek-sucrose, Ages 12+ ([employer]) 12/04/2021 COVID-19, MRNA-LNP, 23-24, P F, 30 MCG/0.3 mL, 12 YRS AND ABOVE, IM ([employer]) 06/22/2023 Covid-19, Mrna, Lnp-s, Pf, B ivalent, 30 Mcg, IM, 12 yrs and above ([employer]) 02/03/2022 HepA Inact/HepB Recomb>=18yrs old 05/05/2018,,10/27/2017 04/28/2018 [...] file Travel History Travel Start Travel End [facility] 07/11/2023 07/12/2023 documented as of this encounter Plan of Treatment Upcoming Encounters Date Type Department Care Team (Late st Contact Info) Description 07/19/2023 2:20 PM EDT Office Visit General Internal Medicine [facility] [address] [place] [address] Micah Whitmore MD [address] [facility] [place] [address] 07/19/2023 3:00 PM EDT Anticoagulation Pharmacy, [facility] [place] [address] [place] [address] Pharmacist2, [facility] [address] [place] [address] [address] 08/19/2023 9:30 AM EDT Office Visit Cardiology, [facility] [address] [place] [address] Florentin Senior PA-Derik [address] [place] [address] 08/19/2023 1:00 PM EDT Nurse Only Ancillary [facility] [address] [facility] [place] [address] Im, Nurse Annual Wellness [facility] [address] [facility] [place] [address] 11/09/2023 9:40 AM EDT Office Visit Dermatology [facility] [place] [address] [facility] [place] [address] Crystal Hernández PA-C [address] [facility] [place] [phone] 01/04/2024 3:20 PM EDT Office Visit Sleep Disorders Ctr [facility] [address] [facility] [place] [phone] Liudmila Singleton DO 132 [facility] [place] [address] 01/27/2024 1:00 PM EDT Imaging Radiology [facility] 1st [facility] [address] [facility] [place] [address] 02/18/2024 9:30 AM EDT Cardiac Studies Cardiac Studies, [facility] [address] [facility] [place] [address] 05/05/2024 3:00 PM EST Office Visit Nephrology, [facility] [address] [facility] [place] [address] Rakel Redman MD [address] [facility] [place] [address] Pending Results Name Type Priority Associated Diagnoses Date /Time HEMOGLOBIN A1C Lab Routine Type 2 diabetes mellitus with stage 3a chronic kidney disease, without long-term current use of insulin ([facility]) 07/06/2023 10:30 AM EST CBC WITH WBC DIFFERENTIAL Lab Routine Hypertensive heart and kidney disease with chronic diastolic congestive heart failure and stage 3a chronic kidney disease (HCC) 07/06/2023 10:30 AM EST LIPID PANEL WITH DIRECT LDL IF TG IS HIGH Lab Routine Hypertensive heart and kidney disease with chronic diastolic congestive heart failure and stage 3a chronic kidney disease (HCC) 07/06/2023 10:30 AM EST HEPATIC FUNCTION PANEL Lab Routine Hypertensive heart and kidney disease with chronic diastolic congestive heart failure and stage 3a chronic kidney disease (HCC) 07/06/2023 10:30 AM EST CBC Lab Routine Hypertensive heart and kidney disease with chronic diastolic congestive heart failure and stage 3a chronic kidney disease (HCC) 07/06/2023 10:30 AM EST DIFFERENTIAL, AUTOMATED Lab Routine Hypertensive heart and kidney disease with chronic diastolic congestive heart failure and stage 3a chronic kidney disease (HCC) 07/06/2023 10:30 AM EST Health Maintenance Due Date Last Done Comments Colonoscopy 1995 Sigmoidoscopy 1995 Fecal Occult Blood Test 10/19/2017 10/19/2016, 10/13 Diabetic Eye Exam 04/21/2023 04/21/2022, , 02/04/2021, Additional history exists HbA1c 07/01/2023 12/31/2022, 06/04, 08/18/2021, Additional history exists Depression Screening 08/14/2023 08/13/2022 Diabetic Foot Exam 08/14/2023 08/13/2022, 0 09/26/2020, 10/17/2019, Additional history exists CKD HGB USE SMARTSET 66684 11/25/202311/24, 06/25/2022, 06/25/2022, Additional history exists GFR 12/23/2023 06/24/2023, 01/01, 12/31/2022, Additional history exists B-12 01/01/2024 12/31/2022, 08/01, 09/26/2020, Additional history exists TSH 01/01/2024 12/31/2022, 06/04, 08/18/2021, Additional history exists Mammogram 01/26/2024 01/25/2023, 01/02, 10/17/2021, Additional history exists DXA Scan 02/03/2024 02/02/2017 CKD PHOS USE SMARTSET 51320 06/24/202406/04, 12/31/2022, 08/25/2021, Additional history exists Albumin/Creatinine Ratio 06/25/2024 024, 11/24/2022, 07/07/2022, Additional history exists Cologuard 09/24/2025 09/24/2022, 08/31, 09/17/2022, Additional history exists Colorectal Cancer Screening 09/24/2025 Lipid Panel 06/25/2027 06/25/2022, 08/01, 09/26/2020, Additional history exists DTaP,Tdap,and Td Vaccines (3 [...] Not on filedocumented as of this encounter Visit Diagnoses Diagnosis Type 2 diabetes mellitus with stage 3a chronic kidney disease, without long-term current use of insulin (HCC) Hypertensive heart and kidney disease with chronic diastolic congestive heart failure and stage 3a chronic kidney disease (HCC) documented in this encounter Care Teams Peoplesoft Administrator Relationship Specialty Start Date End Date Micah Whimtore MD [address] [place], [place] [address] PCP - General Internal Medicine 09/14/18 documented as of this encounter
--- OUTSIDE RECORDS SUMMARY | 2023-07-30 22:36 | External Medical Summary | Summary of Care ---
Author Name Unknown Organization [facility] Address [address] [facility] [address] Phone [phone] Care Team Providers Care Insurance Healthcare Representative Name Role Phone Micah Whitmore MD Primary Care Provider + Encounter Details Date Type Department Care Team (Late st Contact Info) Description 07/06/2023 Orders Only PATIENT PORTAL DO NOT DELETE THIS DEPT USED BY [place] [phone] Allergies Active Allergy Reactions Criticality Noted Date [...] unspecified whether stage 3a or 3b CKD ([facility]) TAKE ONE TABLET BY MOUTH EVERY MORNING 90 Tablet 3 06/30/2022 4 Active Levothyroxine Sodium 112 MCG Oral Tablet (Levoxyl)Indicatio ns:Hypothyroidism due to medication TAKE 1 TABLET BY MOUTH DAILY AT LEAST 30 MINUTES PRIOR TO FIRST MEAL OF THE DAY OR OTHER MEDICATIONS 90 Tablet 3 06/30/2022 4 Active Warfarin Sodium 5 MG Oral Tablet (Coumadin)Indicati ons:PAF (paroxysmal atrial fibrillation) ([facility]) Take 1 Tablet by mouth daily. Or [...] Oral Tablet (Lopressor)Indicat ions:PAF (paroxysmal atrial fibrillation) ([facility]),HTN, goal below 140/90 TAKE ONE-HALF TABLET BY MOUTH EVERY MORNING AND TAKE ONE-HALF TABLET BY MOUTH BEFORE BEDTIME 90 Tablet 3 12/06/2022 4 Active Ozempic (1 MG/DOSE) 4 MG/3ML Subcutaneous Solution Pen-injector (Semaglutide (1 MG/DOSE))Indicatio ns:Type 2 diabetes mellitus with hemoglobin A1c goal of less than 8.0% ([facility]) Inject 1 mg under the skin once [...] mRNA, LNP-s, No Pre serve, 2-Dose Series ([employer]) 02/25/2021,07/23/2020,06/27/2020 COVID-19, LNP-s, No Preserve , Derek-sucrose, Ages 12+ ([employer]) 12/04/2021 COVID-19, MRNA-LNP, 23-24, P F, 30 MCG/0.3 mL, 12 YRS AND ABOVE, IM ([employer]) 06/22/2023 Covid-19, Mrna, Lnp-s, Pf, B ivalent, 30 Mcg, IM, 12 yrs and above ([employer]) 02/03/2022 HepA Inact/HepB Recomb>=18yrs old 05/05/2018,,10/27/2017 04/28/2018 [...] file Travel History Travel Start Travel End [facility] 07/11/2023 07/12/2023 documented as of this encounter Plan of Treatment Upcoming Encounters Date Type Department Care Team (Late st Contact Info) Description 07/19/2023 2:20 PM EDT Office Visit General Internal Medicine [facility] [address] [place] [address] [address] Micah Whitmore MD [address] [facility] [address] [address] 07/19/2023 3:00 PM EDT Anticoagulation Pharmacy, [facility] [address] [place] [address] [address] Pharmacist2, [facility] [address] [place] [address] [address] 08/19/2023 9:30 AM EDT Office Visit Cardiology, [facility] [address] [facility] [place] [address] Florentin eSnior PA-C [address] [place] [address] 08/19/2023 1:00 PM EDT Nurse Only Ancillary [facility] [address] [place] [address] [address] Im, Nurse Annual Wellness [facility] [address] [address] 11/09/2023 9:40 AM EDT Office Visit Dermatology [facility] [address] [address] Crystal Hernández PA-C [address] [place] [phone] 01/04/2024 3:20 PM EDT Office Visit Sleep Disorders Ctr [facility] [place] [phone] Liudmila Singleton, 132 [facility] [place] [address] 01/27/2024 1:00 PM EDT Imaging Radiology [facility]st [facility] [address] [place] [address] 02/18/2024 9:30 AM EDT Cardiac Studies Cardiac Studies, [facility] [address] [facility] [place] [address] 05/05/2024 3:00 PM EST Office Visit Neph[facility], [facility] [address] [place] [address] Rakel Redman MD [address] [address] Health Maintenance Due Date Last Done Comments Colonoscopy 1995 Sigmoidoscopy 1995 Fecal Occult Blood Test 10/19/2017 10/19/2016, 10/13 Diabetic Eye Exam 04/21/2023 04/21/2022, , 02/04/2021, Additional history exists HbA1c 07/01/2023 12/31/2022, 06/04, 08/18/2021, Additional history exists Depression Screening 08/14/2023 08/13/2022 Diabetic Foot Exam 08/14/2023 08/13/2022, 0 09/26/2020, 10/17/2019, Additional history exists CKD HGB USE SMARTSET 96002 11/25/202311/24, 06/25/2022, 06/25/2022, Additional history exists GFR 12/23/2023 06/24/2023, 01/01, 12/31/2022, Additional history exists B-12 01/01/2024 12/31/2022, 08/01, 09/26/2020, Additional history exists TSH 01/01/2024 12/31/2022, 06/04, 08/18/2021, Additional history exists Mammogram 01/26/2024 01/25/2023, 01/02, 10/17/2021, Additional history exists DXA Scan 02/03/2024 02/02/2017 CKD PHOS USE SMARTSET 13456 06/24/202406/04, 12/31/2022, 08/25/2021, Additional history exists Albumin/Creatinine [...] Not on filedocumented as of this encounter Care Teams Insurance Healthcare Representative Relationship Specialty Start Date End Date Micah Whitmore MD 200 [facility] [place] [address] PCP - General Internal Medicine 09/14/18 documented as of this encounter
--- OUTSIDE RECORDS SUMMARY | 2023-07-30 22:36 | External Medical Summary | Summary of Care ---
Author Name Unknown Organization [facility] Address [address] [place] [address] Phone [phone] Care Team Providers Care Staff Research Associate Name Role Phone Micah Whitmore MD Primary Care Provider + Reason for Visit * Reason Onset Date Comments Blood Pressure Readings 07/09/2023 Encounter Details Date Type Department Care Team (Late st Contact Info) Description 07/09/2023 Telephone Nephrology, [place] 200 [place] [address] Rakel Redman MD 200 [place] [address] Blood Pressure Readings Allergies Active Allergy Reactions Criticality Noted Date Comments Erythromycin Base Low 02/03/2020 Other reaction(s): GI UPSET Gabapentin 10/31/2021 Tremors Penicillins Rash 05/24/2012 documented as of this encounter (statuses as of 07/09/2023) Medications Medication Sig Dispensed Refills Start Date [...] Oral Tablet (Coumadin)Indicati ons:PAF (paroxysmal atrial fibrillation) ([facility]) Take 1 Tablet by mouth daily. Or [...] hemoglobin A1c goal of less than 8.0% ([facility]) Inject 1 mg under the skin [...] as of this encounter (statuses as of 07/09/2023) Active Problems Problem Noted Date Diagnosed Date [...] as of this encounter (statuses as of 07/09/2023) Resolved Problems Problem Noted Date Diagnosed Date [...] as of this encounter (statuses as of 07/09/2023) Immunizations Name Administration Dates Next Due COVID-19 mRNA, LNP-s, No Pre serve, 2-Dose Series ([employer]) 02/25/2021,07/23/2020,06/27/2020 COVID-19, LNP-s, No Preserve , Derek-sucrose, Ages 12+ ([employer]) 12/04/2021 COVID-19, MRNA-LNP, 23-24, P F, 30 MCG/0.3 mL, 12 YRS AND ABOVE, IM ([employer]) 06/22/2023 Covid-19, Mrna, Lnp-s, Pf, B ivalent, 30 Mcg, IM, 12 yrs and above ([employer]) 02/03/2022 HepA Inact/HepB Recomb>=18yrs old 05/05/2018,,10/27/2017 04/28/2018 [...] file Travel History Travel Start Travel End [facility] 07/11/2023 07/12/2023 documented as of this encounter Miscellaneous Notes * Telephone Encounter - Dayna Piper RN - 07/09/2023 10:50 AM EST Message sent to pt via [email or web address] for follow up on bp log. * Telephone Encounter - Dayna Piper RN - 07/09/2023 10:49 AM EST ----- Message from Rakel Redman MD sent at 06/29/2023 7:01 PM EST ----- Was to do 3 day bp log after 06/29 visit > did she? If not pls reach out documented in this encounter Plan of Treatment Upcoming Encounters Date Type Department Care Team (Late st Contact Info) Description 07/19/2023 2:20 PM EDT Office Visit General Internal Medicine [facility] [address] [place] [address] [address] Micah Whitmore MD [address] [place] [address] 07/19/2023 3:00 PM EDT Anticoagulation Pharmacy, [facility] [address] [place] [address] Pharmacist2, [facility] [address] [place] [address] 08/19/2023 9:30 AM EDT Office Visit Cardiology, [facility] [address] [place] [address] Florentin Senior PA-C [address] [place] [address] 08/19/2023 1:00 PM EDT Nurse Only Ancillary [facility] [address] [place] [address] Im, Nurse Annual Wellness [facility] [address] [place] [address] 11/09/2023 9:40 AM EDT Office Visit Dermatology [facility] [address] [place] [address] Crystal Hernández PA-C [address] [place] [phone] 01/04/2024 3:20 PM EDT Office Visit Sleep Disorders Ctr [facility] [address] [place] [phone] Liudmila Singleton, [address] [place] [address] 01/27/2024 1:00 PM EDT Imaging Radiology [facility]st [facility] [address] [place] [address] 02/18/2024 9:30 AM EDT Cardiac Studies Cardiac Studies, [facility] [address] [place] [address] 05/05/2024 3:00 PM EST Office Visit Nephrology, [facility] [address] [place], [place] [address] Rakel Redman MD [address] [place] [address] Health Maintenance Due Date Last Done Comments [...] 08/18/2021, Additional history exists HbA1c 01/06/2024 07/06/2023, 0805/2022, 06/25/2022, Additional history exists Mammogram 01/26/2024 01/25/2023, 01/02, 10/17/2021, Additional history exists DXA Scan 02/03/2024 02/02/2017 CKD PHOS USE SMARTSET 81854 06/24/202406/04, 12/31/2022, 08/25/2021, Additional history exists Albumin/Creatinine Ratio 06/25/2024 024, 11/24/2022, 07/07/2022, Additional history exists CKD HGB USE SMARTSET 23657 07/05/202407/05, 07/06/2023, 11/24/2022, Additional history exists Cologuard [...] filedocumented as of this encounter Care Teams Staff Research Associate Relationship Specialty Start Date End Date Micah Whitmore MD 200 [place] [address] PCP - General Internal Medicine 09/14/18 documented as of this encounter
--- OUTSIDE RECORDS SUMMARY | 2023-07-30 22:36 | External Medical Summary | Summary of Care ---
Author Name Unknown Organization [facility] Address [address] [place] [address] Phone [phone] Care Team Providers Care Solar Energy Engineer Name Role Phone Micah Whitmore MD Primary Care Provider + Reason for Visit * Reason Onset Date Comments Blood Pressure Readings 07/09/2023 Encounter Details Date Type Department Care Team (Late st Contact Info) Description 07/09/2023 Telephone Nephrology, Jasmine Mera 200 [facility] [place] [address] Rakel Redman MD 200 [place] [address] Blood Pressure Readings Allergies Active Allergy Reactions [...] Oral Tablet (Coumadin)Indicati ons:PAF (paroxysmal atrial fibrillation) ([facility]) Take 1 Tablet by mouth daily. [...] hemoglobin A1c goal of less than 8.0% ([facility]) Inject 1 mg under the skin [...] mRNA, LNP-s, No Pre serve, 2-Dose Series ([employer]) 02/25/2021,07/23/2020,06/27/2020 COVID-19, LNP-s, No Preserve , Derek-sucrose, Ages 12+ ([employer]) 12/04/2021 COVID-19, MRNA-LNP, 23-24, P F, 30 MCG/0.3 mL, 12 YRS AND ABOVE, IM ([facility]) 06/22/2023 Covid-19, Mrna, Lnp-s, Pf, B ivalent, 30 Mcg, IM, 12 yrs and above ([employer]) 02/03/2022 HepA Inact/HepB Recomb>=18yrs old 05/05/2018,,10/27/2017 04/28/2018 [...] file Travel History Travel Start Travel End [facility] 07/11/2023 07/12/2023 documented as of this encounter Miscellaneous Notes * Telephone Encounter - Shruti Cohen LPN - 07/09/2023 11:05 AM EST [employer] message sent with instructions * Telephone Encounter - Dayna Piper RN - 07/09/2023 10:50 AM EST Message sent to pt via [employer] for follow up on bp log. * [...] PM EDT Office Visit General Internal Medicine [place], [place] [address] [place], [place] [address] Micah Whitmore MD [address] [place] [address] 07/19/2023 3:00 PM EDT Anticoagulation Pharmacy, [facility] [address] [place] [address] Pharmacist[address], [facility] [address] [place] [address] 08/19/2023 9:30 AM EDT Office [facility] [place] [address] Florentin Senior PA-C [address] [place] [address] 08/19/2023 1:00 PM EDT Nurse Only Ancillary [facility] [address] [place] [address] Im, Nurse Annual Wellness [facility] [address] [place] [address] 11/09/2023 9:40 AM EDT Office Visit Dermatology [facility] [address] [place] [address] Crystal Hernández PA-C 200 [facility] [place] [phone] 01/04/2024 3:20 PM EDT Office Visit Sleep Disorders Ctr [facility] [address] [place] [phone] Liudmila Singleton, [address] [place] [address] 01/27/2024 1:00 PM EDT Imaging Radiology [facility] 1st [facility] [address] [place] [address] 02/18/2024 9:30 AM EDT Cardiac Studies Cardiac Studies, Loni Mcdaniel, [place] [address] [place] [address] 05/05/2024 3:00 PM EST Office Visit Nephrology, [facility] [address] [place] [address] Rakel Redman MD 200 [facility] [place] [address] Health Maintenance Due Date Last Done Comments [...] Scan 02/03/2024 02/02/2017 CKD PHOS USE SMARTSET 47183 06/24/202406/04, 12/31/2022, 08/25/2021, Additional history exists Albumin/Creatinine Ratio 06/25/2024 024, 11/24/2022, 07/07/2022, Additional history exists CKD HGB USE SMARTSET 79252 07/05/202407/05, 07/06/2023, 11/24/2022, Additional history exists Cologuard [...] filedocumented as of this encounter Care Teams Solar Energy Engineer Relationship Specialty Start Date End Date Micah Whitmore MD [address] [place] [address] PCP - General Internal Medicine 09/14/18 documented as of this encounter
--- OUTSIDE RECORDS SUMMARY | 2023-07-30 22:36 | External Medical Summary ---
Author Name Unknown Address Unknown Organization K01:[facility] - [address] [place] [address] Laboratory Report Ordering Provider Test Date Status BLAIR CRAFT 07/06/2023 10:30:15 Final Observation Date Value Abnormality Reference (Units ) Status SYNC LEUKOCYTES IN BLOOD BY AUTOMATED COUNT 07/06/2023 10:30:15 11.24 Above high normal 4.00-10.80 (K/uL) Final Segs 07/06/2023 10:30:15 70.5 40.0-75.0 (%) Final Lymphs % 07/06/2023 10:30:15 18.8 18.0-42.0 (%) Final Monos 07/06/2023 10:30:15 7.7 1.0-11.0 (%) Final Eosinophils 07/06/2023 10:30:15 1.4 0.0-6.0 (%) Final Basos 07/06/2023 10:30:15 0.7 0.0-2.0 (%) Final Immature Granulocyte, Percent 07/06/2023 10:30:15 0.9 0.0-2.0 (%) Final Absolute Segs 07/06/2023 10:30:15 7.92 Above high normal 1.80-7.70 (K/uL) Final Lymphs, absolute 07/06/2023 10:30:15 2.11 1.00-4.80 (K/ul) Final Monos, Abs 07/06/2023 10:30:15 0.87 0.00-1.10 (K/uL) Final Eos, Abs 07/06/2023 10:30:15 0.16 0.00-0.70 (K/uL) Final Basos, Abs 07/06/2023 10:30:15 0.08 0.00-0.20 (K/uL) Final Immature Granulocytes, Number 07/06/2023 10:30:15 0.10 0.00-0.20 (K/uL) Final Performing Location [facility] [place] [address] [facility] [address]
--- OUTSIDE RECORDS SUMMARY | 2023-07-30 22:36 | External Medical Summary ---
Author Name Unknown Address Unknown Organization K01:LABORATORY [facility] - [address] [place] [address] Laboratory Report Ordering Provider Test Date Status BLAIR CRAFT 07/06/2023 10:30:15 Final Observation Date Value Abnormality Reference (Units ) Status Albumin 07/06/2023 10:30:15 4.1 3.8-5.0 (g/dL) Final AST (Aspartate aminotransferase) 07/06/2023 10:30:15 21 10-35 (U/L) Final Alk Phos 07/06/2023 10:30:15 82 35-130 (U/L) Final ALT (Alanine aminotransferase) 07/06/2023 10:30:15 21 10-35 (U/L) Final Bilirubin, Total 07/06/2023 10:30:15 0.4 <=1.2 (mg/dL) Final Bilirubin, Direct 07/06/2023 10:30:15 <0.2 0.0-0.3 (mg/dL) Final Protein 07/06/2023 10:30:15 6.4 6.0-8.3 (g/dL) Final Performing Location LABORATORY [facility] - [address] [place] [address]
--- OUTSIDE RECORDS SUMMARY | 2023-07-30 22:36 | External Medical Summary | Summary of Care ---
Author Name Unknown Organization [facility] Address [address] [place] [address] Phone [phone] Care Team Providers Care Deputy Grand Jury Name Role Phone Micah Whitmore MD Primary Care Provider + Reason for Visit * Reason Comments Dosage Adjustment In Person (Anticoag Cl inic) Encounter Details Date Type Department Care Team (Latest Contact Info) Description 07/19/2023 3:00 PM EDT Anticoagulation Pharmacy, [facility] [address] [place] [address] Pharmacist2, [facility] [address] [place] [address] PAF (paroxysmal atrial fibrillation) ([facility] Allergies Active Allergy Reactions Criticality Noted [...] hemoglobin A1c goal of less than 7.5% ([facility]) Take by mouth 1 Tablet in [...] mRNA, LNP-s, No Pre serve, 2-Dose Series ([employer]) 02/25/2021,07/23/2020,06/27/2020 COVID-19, LNP-s, No Preserve , Derek-sucrose, Ages 12+ ([employer]) 12/04/2021 COVID-19, MRNA-LNP, 23-24, P F, 30 MCG/0.3 mL, 12 YRS AND ABOVE, IM ([facility]) 06/22/2023 Covid-19, Mrna, Lnp-s, Pf, B ivalent, 30 Mcg, IM, 12 yrs and above ([employer]) 02/03/2022 HepA Inact/HepB Recomb>=18yrs old 05/05/2018,,10/27/2017 04/28/2018 [...] file Travel History Travel Start Travel End [facility] 07/14/2023 07/16/2023 documented as of this encounter Progress Notes * Shravan Crane, [facility] - 07/19/2023 3:04 PM EDT Medication Therapy [...] Amio 200 mg daily maintenance Shravan Crane [facility] Clinical Pharmacist 07/19/2023, 3:04 PM documented in this encounter Plan of Treatment Upcoming Encounters Date Type Department Care Team (Late st Contact Info) Description 08/17/2023 1:30 PM EDT Anticoagulation Pharmacy, [address] [address] [facility] [place] [address] 08/19/2023 9:30 AM EDT Office Visit Cardiology, [facility] [address] [place] [address] Florentin Senior PA-C [address] [place] [address] 08/19/2023 1:00 PM EDT Nurse Only Ancillary [facility] [place] [address] [place] [address] Im, Nurse Annual Wellness [facility] [address] [place] [address] 11/09/2023 9:40 AM EDT Office Visit Dermatology [facility] [place] [address] [place] [address] Crystal Hernández PA-C [address] [facility] [place] [phone] 01/04/2024 3:20 PM EDT Office Visit Sleep Disorders Ctr [facility] [address] [place] [phone] Liudmila Singleton, [address] [place] [address] 01/27/2024 1:00 PM EDT Imaging Radiology [facility] 1st [facility] [address] [place] [address] 02/03/2024 2:40 PM EDT Office Visit General Internal Medicine [facility] [address] [facility] [place] [address] Micah Whitmore MD [address] [facility] [place] [address] 02/18/2024 9:30 AM EDT Cardiac Studies Cardiac Studies, [facility] 132 [facility] [place] [address] 05/05/2024 3:00 PM EST Office Visit Nephrology, [facility] [address] [facility] [place] [address] Rakel Redman MD [address] [facility] [place] [address] Health Maintenance Due Date Last Done Comments [...] 02/03/2024 02/02/2017, 02/02/2017 CKD PHOS USE SMARTSET 23568 06/24/202406/04, 12/31/2022, 08/25/2021, Additional history exists Albumin/Creatinine Ratio 06/25/2024 024, 11/24/2022, 07/07/2022, Additional history exists CKD HGB USE SMARTSET 19267 07/05/202407/05, 07/06/2023, 11/24/2022, Additional history exists Cologuard [...] Fingerstick INR 2.7 INR 3:08 PM EDT [facility] 56-02 Blood 07/19/2023 3:07 PM EDT 07/19/2023 3:08 PM EDT [facility] 56-02 - 07/19/2023 3:08 PM EDT Therapeutic ranges for non-operative patients: Prophylaxsis/treatment of DVT: (Range:2.0-3.0) Treatment of pulmonary embolism:(Range:2.0-3.0) Prevention of systemic embolism from: -tissue heart valves -acute myocardial infarction -valvular heart disease -atrial fibrillation (Range: 2.0-3.0) Mechanical prosthetic valves: (Range: 2.5-3.5) Shravan Crane [facility] LAB POINT O F CARE TEST DOCKED DEVICE UNSOLICITED RESULTS [facility] 56- [address] [place] [address] documented in this encounter Visit Diagnoses Diagnosis PAF (paroxysmal atrial fibrillation) (HCC)- Primary Atrial fibrillation documented in this encounter Care Teams Deputy Grand Jury Relationship Specialty Start Date End Date Micah Whitmore MD [address] [place] [address] PCP - General Internal Medicine 09/14/18 documented as of this encounter"
--- OUTSIDE RECORDS SUMMARY | 2023-07-30 22:36 | External Medical Summary | Summary of Care ---
Author Name Unknown Organization [facility] Address [address] [place] [address] Phone [phone] Care Team Providers Care Medical Equipment Repair Technician Name Role Phone Micah Whitmore MD Primary Care Provider + Reason for Visit * Reason Comments Medication Refill Encounter Details Date Type Department Care Team (Late st Contact Info) Description 07/16/2023 Refill Cardiology, [facility] [address] [place] [address] Guillaume Foster, [address] [place] [address] HTN, goal below 140/90 Allergies Active Allergy Reactions Criticality Noted Date Comments Erythromycin Base Low 02/03/2020 Other reaction(s): GI UPSET Gabapentin 10/31/2021 Tremors Penicillins Rash 05/24/2012 documented as of this encounter (statuses as of 07/16/2023) Medications Medication Sig Dispensed Refills Start Date [...] 90 Tablet 3 3 12/06/19 24 Active Ozempic (1 MG/DOSE) 4 MG/3ML Subcutaneous Solution Pen-injector (Semaglutide (1 MG/DOSE))Indicati ons:Type 2 diabetes mellitus with hemoglobin A1c goal of less than 8.0% ([facility]) Inject 1 mg under the skin once a week. Dose increase 9 mL 4 3 Active Magnesium Oxide 400 MG Oral Tablet Take 1 Tablet by mouth every evening. 0 Active Multivitamin Adult Oral Tablet Take by mouth. 0 Act evelyn Spironolactone 25 MG Oral Tablet (Aldactone)Indica tions:HTN, goal below 140/90 Take by mouth 1 Tablet in the morning. 100 Tablet 3 3 Active metFORMIN HCl ER 500 MG Oral Tablet Extended Release 24 Hour (Glucophage XR)Indications:Ty pe 2 diabetes mellitus with hemoglobin A1c goal of less than 7.5% ([facility]) Take by mouth 1 Tablet in the [...] 180 Tablet 1 3 03/30/20 24 Active amLODIPine Besylate 5 MG Oral Tablet (Norvasc)Indicati ons:HTN, goal below 140/90 TAKE ONE TABLET BY MOUTH TWICE A DAY -- IN THE MORNING AND BEFORE BEDTIME 180 Tablet 3 4 07/16/19 25 Active amLODIPine Besylate 5 MG Oral Tablet (Norvasc)Indicati ons:HTN, goal below 140/90 TAKE ONE TABLET BY MOUTH TWICE A DAY -- IN THE MORNING AND BEFORE BEDTIME 180 Tablet 3 3 07/16/19 24 Discontinu ed(Refill) documented as of this encounter (statuses as of 07/16/2023) Active Problems Problem Noted Date Diagnosed Date Body mass index (BMI) of 40.0 to [...] as of this encounter (statuses as of 07/16/2023) Resolved Problems Problem Noted Date Diagnosed Date [...] as of this encounter (statuses as of 07/16/2023) Immunizations Name Administration Dates Next Due COVID-19 mRNA, LNP-s, No Pre serve, 2-Dose Series ([employer]) 02/25/2021,07/23/2020,06/27/2020 COVID-19, LNP-s, No Preserve , Derek-sucrose, Ages 12+ ([employer]) 12/04/2021 COVID-19, MRNA-LNP, 23-24, P F, 30 MCG/0.3 mL, 12 YRS AND ABOVE, IM ([facility]) 06/22/2023 Covid-19, Mrna, Lnp-s, Pf, B ivalent, 30 Mcg, IM, 12 yrs and above ([employer]) 02/03/2022 HepA Inact/HepB Recomb>=18yrs old 05/05/2018,,10/27/2017 04/28/2018 [...] file Travel History Travel Start Travel End [facility] 07/11/2023 07/12/2023 documented as of this encounter Miscellaneous Notes * Telephone Encounter - Kike Schultz PA-C - 07/16/2023 11:00 AM EDTSigned Prescriptions: Disp Refills amLODIPine Besylate 5 MG Oral Tablet (Norv*180 Ta*3 Sig: TAKE ONE TABLET BY MOUTH TWICE A DAY -- IN THE MORNING AND BEFORE BEDTIME Authorizing Provider: KIKE SCHULTZ * Telephone Encounter - Yuli Swift COT - 07/16/2023 8:23 AM EDTPending Prescriptions: Disp Refills amLODIPine Besylate 5 MG Oral Tablet (Norv*180 Ta*3 Sig: TAKE ONE TABLET BY MOUTH TWICE A DAY -- IN THE MORNING AND BEFORE BEDTIME * Telephone Encounter - Yuli Swift COT - 07/16/2023 8:23 AM EDT Did you pend patient's preferred pharmacy and medication before forwarding?yes Pharmacy: [facility] Pending Prescriptions: Disp Refills amLODIPine Besylate 5 MG Oral Tablet (Nor*180 Ta*3 Sig: TAKE ONE TABLET BY MOUTH TWICE A DAY -- IN THE MORNING AND BEFORE BEDTIME Last Visit: 01/29/2023 (in office), 05/24/2020 (telemedicine) Next Visit: 08/19/2023 If no future appointments scheduled, and last appointment is greater than a year ago, please schedule patient for a follow-up appointment Last date the medication was ordered: 06-30-2022 Is this request for a controlled substance?No Urine Drug Screen:No results found. However, due to the size of the patient record, not all encounters were searched. Please check Results Review for a complete set of results. Patient Phone Numbers Labs: Lab Results Component Value Date/Time CREAT 1.1 (H) 06/24/2023 12:53 PM CREAT 1.22 (H) 07/26/2020 01:33 PM CREAT 0.8 03/11/2020 06:09 AM POTASSIUM 4.5 06/24/2023 12:53 PM POTASSIUM 4.3 07/26/2020 01:33 PM POTASSIUM 4.1 03/11/2020 06:09 AM TSH 1.02 12/31/2022 09:14 AM TSH 0.17 (L) 06/07/2019 01:37 PM LDLCALC 58 07/06/2023 10:30 AM LDLCALC 43 06/07/2019 01:37 PM LDLDIRECT NOT APPLICABLE 06/07/2019 01:37 PM LDLDIRECT 119 2013 03:27 PM ALT 21 07/06/2023 10:30 AM ALT 17 07/26/2020 01:33 PM ALT 12 03/11/2020 06:09 AM HGBA1C 6.3 (H) 07/06/2023 10:30 AM HGBA1C 5.5 06/26/2020 12:00 AM HGBA1C 7.2 (H) 02/17/2020 04:30 AM documented in this encounter Plan of Treatment Upcoming Encounters Date Type Department Care Team (Late st Contact Info) Description 07/19/2023 2:20 PM EDT Office Visit General Internal Medicine [facility] [place] [address] [place] [address] Micah Whitmore MD [address] [place] [address] [address] 07/19/2023 3:00 PM EDT Anticoagulation Pharmacy, [facility] [place] [address] [place] [address] [address] Pharmacist2, [facility] [address] [place] [place] [address] 08/19/2023 9:30 AM EDT Office Visit Cardiology, [facility] [address] [place] [address] Kike Schultz PA-C [address] [place] [address] 08/19/2023 1:00 PM EDT Nurse Only Ancillary [facility] [place] [address] [place] [address] [address] Im, Nurse Annual Wellness [facility] [address] [place] [address] [address] 11/09/2023 9:40 AM EDT Office Visit Dermatology [facility] [place] [address] [place] [address] [place] [address] Crystal Hernández PA-C [facility] [place] [phone] 01/04/2024 3:20 PM EDT Office Visit [facility]tr [facility] [place] [phone] Liudmila Singleton DO [address] [place] [address] 01/27/2024 1:00 PM EDT Imaging Radiology [facility] 1st Floor, [place] [facility] [place] [address] 02/18/2024 9:30 AM EDT Cardiac Studies Cardiac Studies, [facility] 132 [facility] [place] [address] 05/05/2024 3:00 PM EST Office Visit Nephrology, [facility] [address] [place] [address] Rakel Redman MD [address] [place] [address] Health Maintenance Due Date Last Done Comments [...] Scan 02/03/2024 02/02/2017 CKD PHOS USE SMARTSET 42277 06/24/202406/04, 12/31/2022, 08/25/2021, Additional history exists Albumin/Creatinine Ratio 06/25/2024 024, 11/24/2022, 07/07/2022, Additional history exists CKD HGB USE SMARTSET 36236 07/05/202407/05, 07/06/2023, 11/24/2022, Additional history exists Cologuard [...] as of this encounter Visit Diagnoses Diagnosis HTN, goal below 140/90 Unspecified essential hypertension documented in this encounter Care Teams Medical Equipment Repair Technician Relationship Specialty Start Date End Date Micah Whitmore MD [address] [place] [address] PCP - General Internal Medicine 09/14/18 documented as of this encounter
--- OUTSIDE RECORDS SUMMARY | 2023-07-30 22:36 | External Medical Summary | Summary of Care ---
Author Name Unknown Organization [facility] Address [address] [place] [address] Phone [phone] Care Team Providers Care Industrial Engineering Professor Name Role Phone Micah Whitmore MD Primary Care Provider + Reason for Visit * Reason Comments Follow Up 6 month follow up - pt c/o right knee pain that has worsened over the past week. Pt would also like to discuss ozempic dosage Encounter Details Date Type Department Care Team (Late st Contact Info) Description 07/19/2023 2:20 PM EDT Office Visit General Internal Medicine [facility] [place] [address] [place] [address] Micah Whitmore MD [address] [place] [address] Type 2 diabetes mellitus with stage 3a [...] Oral Tablet (Bumex)Indication s:PAF (paroxysmal atrial fibrillation) ([facility]),HTN, goal below 140/90 Take 1 Tablet by mouth in the morning. 100 Tablet 3 3 Active Amiodarone HCl 200 MG Oral Tablet (Cordarone)Indica tions:PAF (paroxysmal atrial fibrillation) ([facility]) TAKE ONE TABLET BY MOUTH EVERY DAY [...] unspecified whether stage 3a or 3b CKD ([facility]) TAKE ONE TABLET BY MOUTH EVERY MORNING [...] disease, without long-term current use of insulin ([facility]) Inject 2 mg under the skin once a week. 9 mL 1 4 Active Ozempic (1 MG/DOSE) 4 MG/3ML Subcutaneous Solution Pen-injector (Semaglutide (1 MG/DOSE))Indicati ons:Type 2 diabetes mellitus with hemoglobin A1c goal of less than 8.0% ([facility]) Inject 1 mg under the skin [...] mRNA, LNP-s, No Pre serve, 2-Dose Series ([employer]) 02/25/2021,07/23/2020,06/27/2020 COVID-19, LNP-s, No Preserve , Derek-sucrose, Ages 12+ ([employer]) 12/04/2021 COVID-19, MRNA-LNP, 23-24, P F, [...] file Travel History Travel Start Travel End [facility] 07/14/2023 07/16/2023 documented as of this [...] also liketo discuss ozempic dosage SUBJECTIVE: Alex Paulino is a 73 year old female with [...] weeks no trauma, was on cruise to [facility]. 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 Hypertensive kidney disease with stage 3a chronic kidney disease ([facility]) I12.9, N18.31 Pulmonary hypertension ([facility]) I27.20 Chronic pain of both knees M25.561, M25.562, G89.29 EDYTA on CPAP G47.33 History of CVA (cerebrovascular accident) Z86.73 History of gastric ulcer Z87.11 Right shoulder pain M25.511 Type 2 diabetes mellitus with hemoglobin A1c goal of less than 8.0% ([facility]) E11.9 Chronic bilateral low back pain without sciatica M54.50, G89.29 Gastroesophageal reflux disease without esophagitis K21.9 Type 2 diabetes mellitus with stage 3a chronic kidney disease, without long-term current use of insulin ([facility]) E11.22, N18.31 Chronic diastolic heart failure ([facility]) I50.32 Hypertensive heart and kidney disease with chronic diastolic congestive heart failure and stage 3a chronic kidney disease ([facility]) I13.0, I50.32, N18.31 Body mass index (BMI) of 40.0 to 44.9 in adult ([facility]) Z68.41 Morbid obesity with BMI of 45.0-49.9, adult ([facility]) E66.01, Z68.42 Current Outpatient Medications Medication [...] on file Occupational History 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 Bilateral 2013 [place] CATARACT SURGERY,COMPLEX Left 04/16/2021 DEBRIDEMENT, MUSCLE/FASCIA, EACH ADDL 20CM2 04/09/2020 abdominal - with local DESTROY LUMBAR SACRAL NERVE IMAGING SINGLE 03/23/2019 DESTROY LUMBAR SACRAL NERVE IMAGING SINGLE performed by Cuco Cloud, DO at OR [facility] EXCISION EXCES SKIN,PANNICULECTOMY,INFRAUMB 09/12/2020 [facility] INJECT DX/THER SUBSTANCE INTERLAMINAR LUMBAR/SACRAL W IMAGE GUIDE 06/22/2019 INJECTION SPINE LUMBAR OR SACRAL performed by Cuco Gregorys, DO at OR [facility] L-/S-SPINE PARAVERTEBRAL FACET INJ,1 LEVEL 02/27/2019 L-/S-SPINE PARAVERTEBRAL FACET INJ, 1 LEVEL performed by Cuco Gregorys, DO at OR [facility] L-/S-SPINE PARAVERTEBRAL FACET INJ,1 LEVEL 03/09/2019 L-/S-SPINE PARAVERTEBRAL FACET INJ, 1 LEVEL performed by [facility], DO at OR [facility] MOHS SURGERY REFERRAL OP Right 2013 surgery bcc - hairline REMOVE TONSILS & ADENOIDS, UNDER 12 As a child REPAIR SHOULDER CUFF AVULSION 2002 right SACROILIAC JOINT INJECT W/GUIDANCE 11/17/2018 INJECTION SACROILIAC JOINT performed by [place] Sofie Cloud, DO at OR [facility] SACROILIAC JOINT INJECT W/GUIDANCE 05/18/2019 INJECTION SACROILIAC JOINT performed by [facility] Zayrasins, DO at OR [facility] Family History Problem Relation Age of [...] disease, without long-term current use of insulin ([facility]) (primary encounter diagnosis) I48.0 PAF (paroxysmal atrial fibrillation) ([facility]) E03.2 Hypothyroidism due to medication E78.2 Mixed hyperlipidemia E66.01,Z68.42 Morbid obesity with BMI of 45.0-49.9, adult ([facility]) I50.32 Chronic diastolic congestive heart failure (HCC) I27.20 Pulmonary hypertension (HCC) R19.5 Positive colorectal cancer screening using Cologuard test Z79.899 Encounter for long-term (current) use of medications M25.561,G89.29 Chronic pain of right knee G47.33 EDYTA on CPAP M1A.9XX0 Chronic gout without tophus, unspecified cause, unspecified site I13.0,I50.32,N18.31 Hypertensive heart and kidney disease with chronic diastolic congestive heart failure and stage 3a chronic kidney disease ([facility]) PLAN: Type 2 diabetes mellitus with stage 3a chronic kidney disease, without long-term current use of insulin ([facility]) (Primary) - Ozempic (2 MG/DOSE) 8 MG/3ML Subcutaneous Solution Pen-injector (Semaglutide (2 MG/DOSE)); Inject2 mg under the skin once a week. - HEMOGLOBIN A1C; Future; Expected date: 01/19/2024 Cont ozempic, metformin, prandin Increase ozempic to 2 mg The potential side effects of this medication have been discussed with thepatient. Call if any significant problems with these are experienced. PAF (paroxysmal atrial fibrillation) ([facility]) Cont amiodarone, metoprolol Cont coumadin Sees cardiology Hypothyroidism due to medication - TSH; Future; Expected date: 01/19/2024 Cont levothyroxine Mixed hyperlipidemia - COMPREHENSIVE METABOLIC PANEL; Future; Expected date: 01/19/2024 - LIPID PANEL WITH DIRECT LDL IF TG IS HIGH; Future; Expected date: 01/19/2024 Cont rosuvastatin Morbid obesity with BMI of 45.0-49.9, adult ([facility]) Cont ozempic, diet Chronic diastolic congestive heart [...] Visit | Check-out note: [facility] - optho [place] [facility] Micah Whitmore MD documented in this encounter Nursing Notes * Shani Han MED ASSIST - 07/19/2023 2:21 PM EDT Chief Complaint Patient presents with Follow Up 6 month follow up - pt c/o right knee pain that has worsened over the past week. Pt would also liketo discuss ozempic dosage Patient has been verbally educated on the need or importance of Diabetic Foot Exam and has declinedtopic(s). documented in this encounter Plan of Treatment Upcoming Encounters Date Type Department Care Team (Late st Contact Info) Description 08/17/2023 1:30 PM EDT Anticoagulation Pharmacy, [place] [address] [address] [place] [address] [facility] [place] [address] 08/19/2023 9:30 AM EDT Office Visit Cardiology, [facility] [address] [place] [address] [facility] [address] [place] [address] 08/19/2023 1:00 PM EDT Nurse Only Ancillary [facility] [address] [place] [address] Im, Nurse Annual Wellness [facility] [address] [place] [address] 11/09/2023 9:40 AM EDT Office Visit Dermatology [facility] [address] [place] [address] Crystal Hernández PA-C [address] [facility] [place] [address] 01/04/2024 3:20 PM EDT Office Visit Sleep Disorders Ctr [facility] [address] [place] [phone] Liudmila Singleton DO [address] [place] [address] 01/27/2024 1:00 PM EDT Imaging Radiology [facility] [address] [place] [address] 02/03/2024 2:40 PM EDT Office Visit General Internal Medicine [facility] [address] [place] [address] Micah Whitmore MD [address] [facility] [facility] [place] [address] 02/18/2024 9:30 AM EDT Cardiac Studies Cardiac Studies, [facility] [address] [place] [address] 05/05/2024 3:00 PM EST Office Visit Nephrology, [place] [place] [address] [place], [place] [address] Rakel Redman MD [address] [facility] [place], [place] [address] Scheduled Orders Name Type Priority Associated Diagnoses [...] unspecified site Expected: 01/19/2024 (Approximate), Expires: 07/18/2024 XR KNEE 4 OR MORE VIEWS Medical Imaging Routine Chronic pain of right knee Ordered: 07/19/2023 Health Maintenance Due Date Last Done Comments [...] 02/03/2024 02/02/2017, 02/02/2017 CKD PHOS USE SMARTSET 78392 06/24/202406/04, 12/31/2022, 08/25/2021, Additional history exists Albumin/Creatinine Ratio 06/25/2024 024, 11/24/2022, 07/07/2022, Additional history exists CKD HGB USE SMARTSET 34059 07/05/202407/05, 07/06/2023, 11/24/2022, Additional history exists Cologuard [...] (HCC) documented in this encounter Care Teams Industrial Engineering Professor Relationship Specialty Start Date End Date Micah Whitmore MD [address] [facility] [place] [address] PCP - General Internal Medicine 09/14/18 documented as of this encounter
--- OUTSIDE RECORDS SUMMARY | 2023-07-30 22:36 | External Medical Summary ---
Author Name Unknown Address Unknown Organization K01:[facility] - [address] [place] [address] Laboratory Report Ordering Provider Test Date Status PALOMO CRAFTTEIN 07/06/2023 10:30:15 Final Observation Date Value Abnormality Reference (Units ) Status Triglyceride 07/06/2023 10:30:15 86 <=174 ( mg/dL) Final Triglyceride Reference Range s (mg/dL):
<150 Acceptable
150-174 Borderline high
175-499 High
>=500 Very high Cholesterol 07/06/2023 10:30:15 143 <200 (mg /dL) Final Total Cholesterol Reference Ranges (mg/dL):
<200 Desirable
200-239 Borderline high
>=240 High HDL 07/06/2023 10:30:15 68 >49 (mg/dL ) Final HDL Cholesterol Reference Ra nges (mg/dL):
>=60 High (Desirable)
<50 Low (Undesirable) For Females
<40 Low (Undesirable) For Males NON-HDL CHOLESTEROL 07/06/2023 10:30:15 75 <=159 (mg/dL) Final Non-HDL Cholesterol Referenc e Range (mg/dL):
<100 Target level for high risk ASCVD patient
<130 Optimal for general population
130-159 Near optimal for general population
160-189 Borderline High
190-219 High
>=220 Very High LDL, (calculated) 07/06/2023 10:30:15 58 <= 129 (mg/dL) Final LDL Cholesterol Reference Ra nges (mg/dL):
<70 Target level for high risk ASCVD patient
<100 Optimal for general population
100-129 Near optimal for general population
130-159 Borderline high
160-189 High
>=190 Very high Performing Location LABORATORY [facility] - [address] [facility] [address]
--- OUTSIDE RECORDS SUMMARY | 2023-07-30 22:36 | External Medical Summary | Summary of Care ---
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, without long-term current use of insulin, unspecified whether stage 3a or 3b CKD (HCC); Hypothyroidism due to medication Allergies Active Allergy Reactions Criticality Noted Date [...] A1c goal of less than 8.0% ([facility]) Inject 1 mg under the skin once [...] A1c goal of less than 7.5% ([facility]) Take by mouth 1 Tablet in the [...] Tablet 3 3 07/16/19 24 Discontinu ed(Refill) Lisinopril 10 MG Oral Tablet (Prinivil)Indicat ions: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 disease, without long-term current use of insulin, unspecified whether stage 3a or 3b CKD (HCC) TAKE ONE TABLET BY MOUTH EVERY MORNING 90 Tablet 3 3 07/16/19 24 Discontinu ed(Refill) Levothyroxine Sodium 112 MCG Oral Tablet (Levoxyl)Indicati ons:Hypothyroidis m due to medication TAKE 1 TABLET BY MOUTH DAILY AT LEAST 30 MINUTES PRIOR TO FIRST MEAL OF THE DAY OR OTHER MEDICATIONS 90 Tablet 3 3 07/16/19 24 Discontinu ed(Refill) [...] mRNA, LNP-s, No Pre serve, 2-Dose Series ([employer]) 02/25/2021,07/23/2020,06/27/2020 COVID-19, LNP-s, No Preserve , Derek-sucrose, Ages 12+ ([employer]) 12/04/2021 COVID-19, MRNA-LNP, 23-24, P F, 30 MCG/0.3 mL, 12 YRS AND ABOVE, IM ([employer]) 06/22/2023 Covid-19, Mrna, Lnp-s, Pf, B ivalent, 30 Mcg, IM, 12 yrs and above ([employer]) 02/03/2022 HepA Inact/HepB Recomb>=18yrs old 05/05/2018,,10/27/2017 04/28/2018 [...] file Travel History Travel Start Travel End [facility] 07/11/2023 07/12/2023 documented as of this encounter Miscellaneous Notes * Telephone Encounter - Kike Schultz PA-C - 07/16/2023 11:00 AM EDTSigned Prescriptions: Disp Refills Lisinopril 10 MG Oral Tablet (Prinivil) 90 Tab*3 Sig: TAKE ONE TABLET BY MOUTH EVERY MORNING Authorizing Provider: KIKE SCHULTZ Levothyroxine Sodium 112 MCG Oral Tablet (*90 Tab*3 Sig: TAKE 1 TABLET BY MOUTH DAILY AT LEAST 30 MINUTES PRIOR TO FIRST MEAL OF THE DAY OR OTHER MEDICATIONS Authorizing Provider: KIKE SOARES * Telephone Encounter - Yuli Swift COT - 07/16/2023 8:19 AM EDTPending Prescriptions: Disp Refills Lisinopril 10 MG Oral Tablet (Prinivil) 90 Tab*3 Sig: TAKE ONE TABLET BY MOUTH EVERY MORNING Levothyroxine Sodium 112 MCG Oral Tablet (*90 Tab*3 Sig: TAKE 1 TABLET BY MOUTH DAILY AT LEAST 30 MINUTES PRIOR TO FIRST MEAL OF THE DAY OR OTHER MEDICATIONS * Telephone Encounter - Yuli Swift COT - 07/16/2023 8:19 AM EDT Did you pend patient's preferred pharmacy and medication before forwarding?yes Pharmacy: [facility] Pending Prescriptions: Disp Refills Lisinopril 10 MG Oral Tablet (Prinivil) 90 Tab*3 Sig: TAKE ONE TABLET BY MOUTH EVERY MORNING Levothyroxine Sodium 112 MCG Oral Tablet *90 Tab*3 Sig: TAKE 1 TABLET BY MOUTH DAILY AT LEAST 30 MINUTES PRIOR TO FIRST MEAL OF THE DAY OR OTHER MEDICATIONS Last Visit: 01/29/2023 (in office), 05/24/2020 (telemedicine) [...] AM HGBA1C 7.2 (H) 02/17/2020 04:30 AM * Telephone Encounter - 07/16/2023 12:14 AM EDTPending Prescriptions: Disp Refills Lisinopril 10 MG Oral Tablet (Prinivil) 90 Tab*3 Sig: TAKE ONE TABLET BY MOUTH EVERY MORNING Levothyroxine Sodium 112 MCG Oral Tablet (*90 Tab*3 Sig: TAKE 1 TABLETBY MOUTH DAILY AT LEAST 30 MINUTES PRIOR TO FIRST MEAL OF THE DAY OR OTHER MEDICATIONS documented in this encounter Plan of Treatment Upcoming Encounters Date Type Department Care Team (Late st Contact Info) Description 07/19/2023 2:20 PM EDT Office Visit General Internal Medicine [facility] [place] [address], [place] [address] Micah Whitmore MD [address], [place] [address] 07/19/2023 3:00 PM EDT Anticoagulation Pharmacy, [facility] [place] [address] [place] [address] Pharmacist2, [facility] [address], [place] [address] 08/19/2023 9:30 AM EDT Office Visit Cardiology, [facility] [address] [address] Kike Schultz PA-C [address] [address] 08/19/2023 1:00 PM EDT Nurse Only Ancillary [facility] [place] [address] [place] [address] [address] Im, Nurse Annual Wellness [facility] [address], [place] [address] 11/09/2023 9:40 AM EDT Office Visit Dermatology [facility] [place] [address], [place] [address] Crystal Hernández PA-C [address] [place] [phone] 01/04/2024 3:20 PM EDT Office Visit [facility] [place] [phone] Liudmila Singleton DO [address] [place] [address] 01/27/2024 1:00 PM EDT Imaging Radiology [facility] 1st Floor, [place] [facility] [place] [address] 02/18/2024 9:30 AM EDT Cardiac Studies Cardiac Studies, [facility] [address] [facility] [place] [address] 05/05/2024 3:00 PM EST Office Visit Nephrology, [facility] [address] [place] [address] Rakel Redman MD [address] [place] [address] Health Maintenance Due Date Last Done Comments [...] Scan 02/03/2024 02/02/2017 CKD PHOS USE SMARTSET 10250 06/24/202406/04, 12/31/2022, 08/25/2021, Additional history exists Albumin/Creatinine Ratio 06/25/2024 024, 11/24/2022, 07/07/2022, Additional history exists CKD HGB USE SMARTSET 90686 07/05/202407/05, 07/06/2023, 11/24/2022, Additional history exists Cologuard [...] as of this encounter Visit Diagnoses Diagnosis 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
--- OUTSIDE RECORDS SUMMARY | 2023-07-30 22:37 | External Medical Summary ---
Author Name Unknown Address Unknown Organization K01:LABORATORY [facility] - [address] [address] Laboratory Report Ordering Provider Test Date Status EMILIANO SIMENTAL 06/24/2023 12:53:03 Final Observation Date Value Abnormality Reference (Units ) Status Parathyrin.intact [Mass/volume] in Serum or Plasma 06/24/2023 12:53:03 67 Above high normal 15-65 (pg/mL) Final Performing Location LABORATORY [facility] - [address] [address]
--- OUTSIDE RECORDS SUMMARY | 2023-07-30 22:37 | External Medical Summary | Summary of Care ---
Author Name Unknown Organization [facility] Address [address] [place] [address] Phone [phone] Care Team Providers Care Senior Media Buyer Name Role Phone Micah Whitmore MD Primary Care Provider + Reason for Visit * Reason Comments Chronic Kidney Disease (CKD) Encounter Details Date Type Department Care Team (Late Contact Info) Description 06/29/2023 10:00 AM EST Office Visit Nephrology, Jasmine Mera [address] [facility] [place] [address] Kamille Cummings MD [address] [place] [address] Hypertensive kidney disease with stage 3a chronic kidney disease (HCC)*; Calcium oxalate kidney stones; HTN, goal below 130/80; Proteinuria, unspecified type; Uncontrolled hypertension; Type 2 diabetes mellitus with stage 3a chronic kidney disease, without long-term current use of insulin (HCC) Allergies Active Allergy Reactions Criticality Noted Date Comments Erythromycin Base Low 02/03/2020 Other reaction(s): GI UPSET Gabapentin 10/31/2021 Tremors Penicillins Rash 05/24/2012 documented as of this encounter (statuses as of 06/29/2023) Medications Medication Sig Dispensed Refills Start Date [...] AND BEFORE BEDTIME 180 Tablet 3 3 07/24/19 24 Active Lisinopril 10 MG Oral Tablet (Prinivil)Indicat ions: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 disease, without long-term current use of insulin, unspecified whether stage 3a or 3b CKD (HCC) TAKE ONE TABLET BY MOUTH EVERY MORNING 90 Tablet 3 3 07/24/19 24 Active Levothyroxine Sodium 112 MCG Oral Tablet (Levoxyl)Indicati ons:Hypothyroidis m due to medication TAKE 1 TABLET BY MOUTH DAILY AT LEAST 30 MINUTES PRIOR TO FIRST MEAL OF THE DAY OR OTHER MEDICATIONS 90 Tablet 3 3 07/24/19 24 Active Warfarin Sodium 5 MG Oral Tablet (Coumadin)Indicat ions:PAF (paroxysmal atrial fibrillation) ([facility]) Take 1 Tablet by mouth daily. Or as directed by anticoagulation clinic 90 Tablet 2 3 Active Repaglinide 0.5 MG Oral Tablet (Prandin)Indicati ons: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 disease, without long-term current use of insulin ([facility]) TAKE ONE TABLET BY MOUTH THREE TIMES A DAY 15 MINUTES BEFORE MEALS 270 Tablet 2 3 Active Metoprolol Tartrate 100 MG Oral Tablet (Lopressor)Indica tions:PAF (paroxysmal atrial fibrillation) ([facility]),HTN, goal below 140/90 TAKE ONE-HALF TABLET BY MOUTH EVERY MORNING AND TAKE ONE-HALF TABLET BY MOUTH BEFORE BEDTIME 90 Tablet 3 3 12/06/19 24 Active Ozempic (1 MG/DOSE) 4 MG/3ML Subcutaneous Solution Pen-injector (Semaglutide (1 MG/DOSE))Indicati ons:Type 2 diabetes mellitus with hemoglobin A1c goal of less than 8.0% ([facility]) Inject 1 mg under the skin [...] goal of less than 7.5% ([facility]) Take by mouth 1 Tablet in the morning. 90 Tablet 3 3 Active Bumetanide 1 MG Oral Tablet (Bumex)Indication s:PAF (paroxysmal atrial fibrillation) ([facility]),HTN, goal below 140/90 Take 1 Tablet by mouth in the morning. 100 Tablet 3 3 Active Amiodarone HCl 200 MG Oral Tablet (Cordarone)Indica tions:PAF (paroxysmal atrial fibrillation) ([facility]) TAKE ONE TABLET BY MOUTH EVERY DAY 90 Tablet 4 3 03/17/20 24 Active Rosuvastatin Calcium 10 MG Oral Tablet (Crestor) TAKE ONE TABLET BY MOUTH EVERY DAY 90 Tablet 1 3 03/30/20 24 Active Allopurinol 100 MG Oral Tablet (Zyloprim)Indicat ions:Gout TAKE TWO TABLETS BY MOUTH EVERY MORNING 180 Tablet 1 3 03/30/20 24 Active Spironolactone 25 MG Oral Tablet (Aldactone)Indica tions:HTN, goal below 140/90 Take 1 Tablet by mouth in the morning. 100 Tablet 3 3 06/29/19 24 Discontinu ed(Medicat ion List Clean Up) documented as of this encounter (statuses as of 06/29/2023) Active Problems Problem Noted Date Diagnosed Date [...] as of this encounter (statuses as of 06/29/2023) Resolved Problems Problem Noted Date Diagnosed Date [...] as of this encounter (statuses as of 06/29/2023) Immunizations Name Administration Dates Next Due COVID-19 mRNA, LNP-s, No Pre serve, 2-Dose Series ([employer]) 02/25/2021,07/23/2020,06/27/2020 COVID-19, LNP-s, No Preserve , Derek-sucrose, Ages 12+ ([employer]) 12/04/2021 COVID-19, MRNA-LNP, 23-24, P F, 30 MCG/0.3 mL, 12 YRS AND ABOVE, IM ([employer] [facility]) 06/22/2023 Covid-19, Mrna, Lnp-s, Pf, B ivalent, 30 Mcg, IM, 12 yrs and above ([employer]) 02/03/2022 HepA Inact/HepB Recomb>=18yrs old 05/05/2018,,10/27/2017 04/28/2018 [...] file Not on file Not on file documented as of this encounter Last Filed Vital Signs Vital Sign Reading Time Taken Comments Blood Pressure 149/75 06/29/2023 10:32 AM EST Pulse 70 06/29/2023 10:32 AM EST Temperature 36.3 C (97.4 F) 06/29/2023 10:[address] Respiratory Rate 18 06/29/2023 10:28 AM EST Oxygen Saturation 96% 06/29/2023 10:28 AM EST Inhaled Oxygen Concentration - - Weight 107.5 kg (237 lb) 06/29/2023 10:28 AM EST Height - - Body Mass Index 44.78 04/05/2023 10:07 AM EST documented in this encounter Patient Instructions * Patient Instructions* Kamille Cummings MD - 06/29/2023 11:24 AM EST -eat a low sodium diet (less than 2000 mg or 1/2 tsp) daily >> 24 hr urine July 2022 shows you are eating about 4.5 gm daily -minimize medicines like aleve, advil, ibuprofen, aspirin more than 81 mg daily and other NSAIDS which are not good for kidney patients. Take only tylenol (acetaminophen) up to 2000 mg daily as needed for pain or as directed by your primary care provider. -aim for at least 80-100 oz daily fluid intake most of which should be water > add 4 oz of REAL Lemon lemon juice to 28 oz water at least once daily -do a 3 day BP log >> check 2X in AM, 2X in PM daily about one minute apart each session for 3-4 days and send me results (at least 12 readings) -recommend 24 hr urine study for kidney stones to lower risk of recurrence -no medication changes for now but may need more BP meds documented in this encounter Progress Notes * Kamille Cummings MD - 06/29/2023 11:04 AM EST NEPHROLOGY CLINIC NOTE Nephrology, Jasmine Mera [address] [facility] [address] 06/29/2023, 11:04 AM Patient Name: Alex Paulino BACKGROUND: 73 year old female presents for follow-up of uncontrolled hypertension, non proteinuricCKD 3 neither A nor B, and presumptive calcium oxalate kidney stones. PMH includes DM w/ chronic LE ulcers, HTN w/o hx of urgency, CKD 3A, paroxysmal a fib on coumadin, stroke, HF pEF and has had transient rEF in past, sleep apnea on CPAP and nocturnal 02, hypothryoid,chornic back pain/problems w/ stenosis/ scoliosis, gout last attack prior to 2017; chronic ambulatory dysfunction, walks on 2 canes, NAFLD, HL. Has had stroke in past. Admitted [facility] February 2020 with severe sepsis, group B beta-hemolytic strep possibly from lower abdominal cellulitis; cxs also grew Proteus. Lumbar diskitis/possible osteomyelitis noted. Status post August [address] Thrasher Admitted [facility] March 2021 for Proteus bacteremia/pyelonephritis in setting of obstructive uropathy. Admitted [facility] 04/22/21-05/07/21 for septic shock one day after OP stent replacement; she presentedobtunded and had cardiac arrest in ER just after intubation; VDRF x 1 wk. In wake of pressors has chronic wounds on feet for which still following at wound clinic. Ultimately d/c to [facility]; not home until 05/26/21. Not sure how much she drinks in a day. Drinks water w/ Delta flavoring in it and 4 diet pepsi's weekly. Drinks hot chocolate in AM in winter. No coffee; no tea. No other drinks. Has 21 oz container > does she thinks about 3 of these daily. Told by urology has calcium oxalate stones ( no stone pathon file) STONE PROFILE Stone type : calcium oxalate per pt report of urology comments First stone event: 2009 Most recent stone event: April 2021 w/ septic shock Urologist: Dr Fay Most recent urologic procedure: ?2021 Most recent 24 hr urine: Jul 2022 2.44 L pH 7.1; creat 935; 138 Ca, ox 36; citr 88; Na 235; brushite 2.11 Most recent imaging: August 2022 [facility] u/s R kidney 9 cm, L 11; lateral collecting system atrophy noted. No stones or hydronephrosis; 2 L renal cysts up to 2.1 cm w/o change. Stone meds: none; lemon juice Daily fluid intake: 60 oz; tries for 80 oz Does not take diuretics for about 2 days/week > for example today w/ long/lots of medical appts. Home blood pressure checks: has upper arm nonvalidated cuff History of stones: YES . [place]/ [place] f[place] [facility] [place] history of CKD or ESRD: M w/ diabetic renal dz on HD prior to her . 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 TODAY 06/29/2023: BG elevated and BUN up on recent labs and thinks this is d/t recent steroid injectoin ion shoulder Sees Dr Fay in August w/ imaging planned. Off of nsaids except one dose very intermittently > last one 2 wks back; has had 3 x 600 mg tabslast 2 mos, way down from bid dosing before at last visit. Hits 60 oz daily most days. On ozempic and working at [employer]; least she's weighed in 30+ yrs LE edema variable; had uRI recently and was worse w/ this; however chronic woundshealed up now and no longer w/ wound clinic since Xmas for L foot wound. No gout attacks x years Last stone event may 2021 as above Using upper arm cuff at home on forearm; validated here. REVIEW OF SYSTEMS: No F/C, intended wt loss , energy level ok and appetite lower on meds No acute visual changes or BRAXTON No sinus, dental, throat pain No neck lumps/bumps or stiffness No palpitations, angina, orthopnea, LE edema mostly controlled w/ medications and variable Improving URI cough; no wheeze, or dyspnea No N/V/D/C/abd pain No dysuria, hematuria, nocturia >2X; no new or worrisome voiding symptoms No rash or generalized itch; wounds as above chroinc back pain and neck pain worse w/ maneuvering and L shoulder torn ligament; hands BL; generalized OAOA No inappropriate bleeding ; + bruising No orthostatic or presyncopal symptoms; no falls Current Outpatient Medications Medication Sig Dispense Refill [...] mouth. On Wednesday, Wednesday, and Wednesday only amLODIPine Besylate 5 MG Oral Tablet (Norvasc) TAKE ONE TABLET BY MOUTH TWICE A DAY -- IN THE MORNING AND BEFORE BEDTIME 180 Tablet 3 Lisinopril 10 MG Oral Tablet (Prinivil) TAKE ONE TABLET BY MOUTH EVERY MORNING 90 Tablet 3 Levothyroxine Sodium 112 MCG Oral Tablet (Levoxyl) TAKE 1 TABLET BY MOUTH DAILY AT LEAST 30 MINUTESPRIOR TO FIRST MEAL OF THE DAY OR OTHER MEDICATIONS 90 Tablet 3 Warfarin Sodium 5 MG Oral Tablet (Coumadin) [...] BY MOUTH BEFORE BEDTIME 90 Tablet 3 Ozempic (1 MG/DOSE) 4 MG/3ML Subcutaneous Solution Pen-injector (Semaglutide (1 MG/DOSE)) Inject 1 mg under the skin once a week. Dose increase 9 mL 4 Magnesium Oxide 400 MG Oral Tablet Take [...] BY MOUTH EVERY MORNING 180 Tablet 1 COVID-19 mRNA Vaccine 12 years and above Pfizer 30 MCG/0.3 ML IM SUSP Inject into a large muscle. 0.3 mL 0 Abrysvo 120 MCG/0.5ML Intramuscular Solution Reconstituted (RSV Pre-Fusion F A&B Vac Rcmb) Inject into a large muscle. 1 Each 0 No current facility-administered medications for this visit. Review of patient's allergies indicates: Allergen Reactions Gabapentin Tremors Penicillins Rash Erythromycin Base Other reaction(s): GI UPSET PHYSICAL EXAMINATION: BP Readings from Last 6 Encounters: 06/29/23 149/75 04/05/23 122/78 01/29/23 128/78 12/31/22 132/66 12/31/22 132/66 11/24/22 128/60 Wt Readings from Last 6 Encounters: 06/29/23 107.5 kg (237 lb) 04/05/23 109.3 kg (241 lb) 01/29/23 113.9 kg (251 lb) 12/31/22 113.4 kg (250 lb) 12/31/22 113.5 kg (250 lb 4.8 oz) 11/24/22 117.5 kg (259 lb) Pulse Readings from Last 6 Encounters: 06/29/23 70 04/05/23 74 01/29/23 64 12/31/22 73 12/31/22 73 11/24/22 67 NAD, oriented x 3, ambulatory w/ 2 canes Normocephalic, atraumatic, eomi nonicteric sclerae MMM Supple neck RRR w/o m/g/r; HS distant; significant indurated 2+ edema CTAB w/ reduced air mvt NT abd, +BS, soft No cyanosis or clubbing No rash; chronic wounds healed dorsi BL feet No tremor, focal or global weakness; fluent speech, excellent historian LABS: Recent Labs Units 06/24/23 1253 01/14/23 1403 12/31/22 0914 11/24/22 0932 SODIUM - [facility] mmol/L 139 138 141 140 POTASSIUM - [facility] mmol/L 4.5 4.8 5.1 4.6 CHLORIDE - [facility] mmol/L 104 102 103 102 CO2 - [facility] mmol/L 24 25 24 BUN - [facility] mg/dL 32* 22* 40* 25* CREATININE - [facility] mg/dL 1.1* 1.1* 1.8* 1.2* ESTIMATED GLOMERULAR FILTRATION RATE - [facility] mL/min 55* 52* 29* 46* Latest Ref Rng 05/22/2021 06/17/2021 08/18/2021 10/06/2021 06/25/2022 11/24/2022 NEPH-FLOW Cr 0.5 - 1.0 mg/dL 1.1 (H) 1.1 (H) 1.1 (H) 1.3 (H) 1.4 (H) 1.2 (H) eGFR >=60 mL/min 55 (L) 55 (L) 56 (L) 44 (L) 41 (L) 46 (L) Recent Labs Units 11/24/22 0932 06/25/22 1412 10/06/21 1453 08/18/21 1103 HGB - [facility] g/dL 12.2 11.8* 10.8* 10.9* FERRITIN - [facility] ng/mL -- 58 -- 81 TRANSFERRIN SATURATION PERCENT - [facility] % -- 14* -- 14* Latest Reference Range & Units 06/09/19 14:27 09/26/20 11:58 08/18/21 11:02 06/25/22 14:12 Uric Acid 2.4 - 5.7 mg/dL 5.5 4.3 4.3 5.5 Recent Labs Units 06/24/23 1253 01/14/23 1403 12/31/22 0914 11/24/22 0932 06/25/22 1412 10/06/21 1453 08/25/21 1602 08/18/21 1103 CALCIUM - [facility] mg/dL 9.7 9.9 9.8 9.9 9.4 < > -- -- PHOSPHORUS - [facility] mg/dL 2.7 -- 3.9 -- -- -- 3.6 -- 25-HYDROXY VITAMIN D - [facility] ng/mL 40 -- -- -- 40 -- -- 32 PTH - [facility] pg/mL 67* -- -- -- 62 -- 36 -- < > = values in this interval not displayed. Recent Labs Units 12/31/22 0914 06/25/22 1412 08/18/21 1102 HEMOGLOBIN A1C - [facility] % 5.7* 6.9* 5.8* Recent Labs Units 06/25/23 1525 11/24/22 0919 07/07/22 1426 10/06/21 1453 ALBUMIN / CREATININE RATIO, URINE - [facility] mg/g Creat 114* 123* 50* -- PROTEIN/ CREATININE RATIO, URINE - [facility] mg/g -- -- -- 233* Recent Labs Units 07/07/22 1426 10/06/21 1453 CLARITY, URINE - [facility] Clear -- GLUCOSE, URINE - [facility] mg/dL Negative -- BILIRUBIN, URINE - [facility] Negative -- KETONE, URINE - [facility] mg/dL Negative -- SPECIFIC GRAVITY, URINE - [facility] 1.026 -- BLOOD, URINE - [facility] Negative -- PH, URINE - [facility] Units 6.5 -- PROTEIN, URINE - [facility] mg/dL Trace* -- PROTEIN, RANDOM URINE - [facility] mg/dL -- 21 UROBILINOGEN, URINE - [facility] mg/dL Normal -- NITRITE, URINE - [facility] Negative -- ESTERASE, URINE - [facility] Moderate* -- BACTERIA, URINE - [facility] /HPF 0-25 -- WBC, URINE - [facility] /HPF 50+* -- RBC, URINE - [facility] /HPF 0-2 -- ASSESSMENT AND PLAN: Hypertensive kidney disease with stage 3a chronic kidney disease (HCC) (Primary) Calcium oxalate kidney stones - URORISK(R) DIAGNOSTIC PROFILE; Future; Expected date: 06/29/2023 HTN, goal below 130/80 Proteinuria, unspecified type Uncontrolled hypertension Follow Up: Return in about 6 months (around 12/28/2023) for clinic visit w/ JOON, clinic visit w/ . | For: clinic visit w/ JOON, clinic visit w/ | Check-out note: To lab waitlist Stable ckd w/ accepatble chemistries and more consistently in 3A territory past months w/ albuminuria 100-150 -cont lisinopril dose ok -proteinuria not in range for SGLT2i and w/ stone burden/potential for dehydration reluctant to try No interval stone events and none on imaging last srping >fluid intake as below w/ increase citrate -sodium targets reviewed -repeat urorisk given severity of stone episode 2 years back HTN uncontrolled today but genterally at goal -3 day log on home cuff -cont lisinopril, amlodipine, bumexmetoprolol all current doses -nurse pool reminder sent to f/u home log if not received in 7-10 days Patient Instructions -eat a low sodium diet (less than 2000 mg or 1/2 tsp) daily >> 24 hr urine July 2022 shows you are eating about 4.5 gm daily -minimize medicines like aleve, advil, ibuprofen, aspirin more than 81 mg daily and other NSAIDS which are not good for kidney patients. Take only tylenol (acetaminophen) up to 2000 mg daily as needed for pain or as directed by your primary care provider. -aim for at least 80-100 oz daily fluid intake most of which should be water > add 4 oz of REAL Lemon lemon juice to 28 oz water at least once daily -do a 3 day BP log >> check 2X in AM, 2X in PM daily about one minute apart each session for 3-4 days and send me results (at least 12 readings) -recommend 24 hr urine study for kidney stones to lower risk of recurrence -no medication changes for now but may need more BP meds Kamille Cummings MD Nephrology, [facility] [address] [facility] [address] CC: Ref: KAMILLE CUMMINGS[[id number]] [address] [facility] [place] [address] (office) [phone] (fax) PCP: MICAH WHITMORE [address] [place] [address] [place] [address] [phone] This chart was completed in part utilizing [employer] Speech Voice Recognition Software. Randomword insertions, pronoun errors, and incomplete sentences are an occasional consequence of this system due to software limitations, and ambient noise. Any questions or concerns about the content, text, or information contained within the body of this dictation should be directly addressed to the provider for clarification. documented in this encounter Nursing Notes * Dayna Piper RN - 06/29/2023 10:30 AM EST Follow visit today- Recently ill with a respiratory infection with a continued cough. Denies any hospital stays. States she is doing well with weight loss. documented in this encounter Plan of Treatment Upcoming Encounters Date Type Department Care Team (Late st Contact Info) Description 07/19/2023 2:20 PM EDT Office Visit General Internal Medicine [facility] [address] [facility] [place] [address] Micah Whitmore MD [address] [place] [address] [place] [address] 07/19/2023 3:00 PM EDT Anticoagulation Pharmacy, [facility] [address] [place] [address] Pharmacist2, [facility] [address] [place] [address] 08/19/2023 9:30 AM EDT Office Visit Cardiology, [facility] [address] [place] [address] Florentin Senior [facility] [address] [place] [address] 08/19/2023 1:00 PM EDT Nurse Only Ancillary [facility] [address] [place] [address] Im, Nurse Annual Wellness [facility] [address] [place] [address] 11/09/2023 9:40 AM EDT Office Visit Dermatology [facility] [address] [place] [address] Crystal Hernández PA-C [address] [facility] [place] [phone] 01/04/2024 3:20 PM EDT Office Visit Sleep Disorders Ctr [facility] [address] [place] [phone] Liudmila Singleton, [address] [place] [address] 01/27/2024 1:00 PM EDT Imaging Radiology [address] [place] [address] 02/18/2024 9:30 AM EDT Cardiac Studies Cardiac Studies, [facility] [address] [place] [address] 05/05/2024 3:00 PM EST Office Visit Nephrology, [facility] [address] [place] [address] Kamille Cummings MD [address] [facility] [place] [address] Scheduled Orders Name Type Priority Associated Diagnoses Orde r Schedule URORISK(R) DIAGNOSTIC PROFILE Lab Routine Calcium oxalate kidney stones Expected: 06/29/2023 (Approximate), Expires: 06/29/2024 Health Maintenance Due Date Last Done Comments Colonoscopy 1995 Sigmoidoscopy 1995 Fecal Occult Blood Test 10/19/2017 10/19/2016, 10/13 Diabetic Eye Exam 04/21/2023 04/21/2022, , 02/04/2021, Additional history exists HbA1c 07/01/2023 12/31/2022, 06/04, 08/18/2021, Additional history exists Depression Screening 08/14/2023 08/13/2022 Diabetic Foot Exam 08/14/2023 08/13/2022, 0 09/26/2020, 10/17/2019, Additional history exists CKD HGB USE SMARTSET 01807 11/25/202311/24, 06/25/2022, 06/25/2022, Additional history exists GFR 12/23/2023 06/24/2023, 01/01, 12/31/2022, Additional history exists B-12 01/01/2024 12/31/2022, 08/01, 09/26/2020, Additional history exists TSH 01/01/2024 12/31/2022, 06/04, 08/18/2021, Additional history exists Mammogram 01/26/2024 01/25/2023, 01/02, 10/17/2021, Additional history exists DXA Scan 02/03/2024 02/02/2017 CKD PHOS USE SMARTSET 34596 06/24/202406/044, 12/31/2022, 08/25/2021, Additional history exists Albumin/Creatinine Ratio [...] as of this encounter Visit Diagnoses Diagnosis Hypertensive kidney disease with stage 3a chronic kidney disease (HCC)- Primary Calcium oxalate kidney stones Calculus of kidney HTN, goal below 130/80 Unspecified essential hypertension Proteinuria, unspecified type Uncontrolled hypertension Unspecified essential hypertension Type 2 diabetes mellitus with stage 3a chronic kidney disease, without long-term current use of insulin (HCC) documented in this encounter Care Teams Senior Media Buyer Relationship Specialty Start Date End Date Micah Whitmore MD [address] [place] [address] PCP - General Internal Medicine 09/14/18 documented as of this encounter"
--- OUTSIDE RECORDS SUMMARY | 2023-07-30 22:37 | External Medical Summary ---
Author Name Unknown Address Unknown Organization K01:[facility] [place] [address] [place] [address] Laboratory Report Ordering Provider Test Date Status EMILIANO SIMENTAL 06/25/2023 15:25:45 Final Normal: <30 mg/g creatinine< br/>High: 30-300 mg/g creatinine
Very High: >300 mg/g creatinine
Nephrotic: >2200 mg/g creatinine Observation Date Value Abnormality Reference (Units ) Status Albumin, Urine 06/25/2023 15:25:45 3.32 (mg/dL) Final Creatinine, Urine 06/25/2023 15:25:45 29 (mg/dL) Final Albumin/Creatinine [Mass Ratio] in Urine 06/25/2023 15:25:45 114 Above high normal <30 (mg/g Creat) Final Performing Location [facility] [place] [address] [place] [address]
--- OUTSIDE RECORDS SUMMARY | 2023-07-30 22:37 | External Medical Summary | Summary of Care ---
Author Name Unknown Organization [facility] Address [address] [place] [address] Phone [phone] Care Team Providers Care Vamp Wetter Name Role Phone Micah Whitmore MD Primary Care Provider + Reason for Visit * Reason Comments Outpatient Testing Encounter Details Date Type Department Care Team (Late st Contact Info) Description 06/24/2023 12:20 PM EST Laboratory Laboratory Scenery [facility] [address] [place] [phone] [place], Lab Scenery [address] [place] [address] Hypertensive kidney disease with stage 3a chronic kidney disease (HCC); Vitamin D deficiency Allergies Active Allergy Reactions Criticality Noted Date Comments Erythromycin Base Low 02/03/2020 Other reaction(s): GI UPSET Gabapentin 10/31/2021 Tremors Penicillins Rash 05/24/2012 documented as of this encounter (statuses as of 06/24/2023) Medications Medication Sig Dispensed Refills Start Date [...] hemoglobin A1c goal of less than 8.0% ([facility]) Inject 1 mg under the skin once [...] the morning. 100 Tablet 3 02/23/2023 Active Spironolactone 25 MG Oral Tablet (Aldactone)Indicat ions:HTN, goal below 140/90 Take 1 Tablet by [...] as of this encounter (statuses as of 06/24/2023) Active Problems Problem Noted Date Diagnosed Date [...] as of this encounter (statuses as of 06/24/2023) Resolved Problems Problem Noted Date Diagnosed Date [...] as of this encounter (statuses as of 06/24/2023) Immunizations Name Administration Dates Next Due COVID-19 mRNA, LNP-s, No Pre serve, 2-Dose Series ([employer]) 02/25/2021,07/23/2020,06/27/2020 COVID-19, LNP-s, No Preserve , Derek-sucrose, Ages 12+ ([employer]) 12/04/2021 COVID-19, MRNA-LNP, 23-24, P F, 30 MCG/0.3 mL, 12 YRS AND ABOVE, IM ([facility]) 06/22/2023 Covid-19, Mrna, Lnp-s, Pf, B ivalent, 30 Mcg, IM, 12 yrs and above ([employer]) 02/03/2022 HepA Inact/HepB Recomb>=18yrs old 05/05/2018,,10/27/2017 04/28/2018 [...] on file documented as of this encounter Plan of Treatment Upcoming Encounters Date Type Department Care Team (Late st Contact Info) Description 06/24/2023 1:15 PM EST Office Visit Dermatology [facility] [address] [place] [address] Micah Morgan MD 200 [facility] [place] [address] Arrived 06/29/2023 10:00 AM EST Office Visit Nephrology, [facility] [address] [place] [address] Rakel Redman MD [address] [place] [address] 07/19/2023 2:20 PM EDT Office Visit General Internal Medicine [facility] [address] [place] [address] Micah Whitmore MD [address] [place] [address] 07/19/2023 3:00 PM EDT Anticoagulation Pharmacy, [facility] [address] [place] [address] Pharmacist2, [facility] [address] [place] [address] 08/19/2023 9:30 AM EDT Office Visit Cardiology, [facility] [address] [place] [address] Florentin Senior PAMarniC 132 [facility] [place] [address] 08/19/2023 1:00 PM EDT Nurse Only Ancillary [facility] [address] [place] [address] Im, Nurse Annual Wellness [facility] 200 [facility] [place] [address] 11/09/2023 9:40 AM EDT Office Visit Dermatology [facility] [address] [place] [address] Crystal Hernández PA-C 200 [facility] [place] [address] 01/04/2024 3:20 PM EDT Office Visit Sleep Disorders Ctr [facility] [address] [place] [phone] Liudmila Singleton, DO 132 [facility] [place] [address] 01/27/2024 1:00 PM EDT Imaging Radiology [facility] [address] [place] [address] 02/18/2024 9:30 AM EDT Cardiac Studies Cardiac Studies, [facility] 132 [facility] [place] [address] Pending Results Name Type Priority Associated Diagnoses Date /Time 25-HYDROXY VITAMIN D Lab STAT Hypertensive kidney disease with stage 3a chronic kidney disease (HCC) Vitamin D deficiency 06/24/2023 12:53 PM EST PTH Lab STAT Hypertensive kidney disease with stage 3a chronic kidney disease (HCC) 06/24/2023 12:53 PM EST RENAL FUNCTION PANEL Lab STAT Hypertensive kidney disease with stage 3a chronic kidney disease (HCC) 06/24/2023 12:53 PM EST Health Maintenance Due Date Last Done Comments Colonoscopy 1995 Sigmoidoscopy 1995 Fecal Occult Blood Test 10/19/2017 10/19/2016, 10/13 Diabetic Eye Exam 04/21/2023 04/21/2022, , 02/04/2021, Additional history exists HbA1c 07/01/2023 12/31/2022, 06/04, 08/18/2021, Additional history exists GFR 07/15/2023 01/14/2023, 12/03, 11/24/2022, Additional history exists Depression Screening 08/14/2023 08/13/2022 Diabetic Foot Exam 08/14/2023 08/13/2022, 0 09/26/2020, 10/17/2019, Additional history exists Albumin/Creatinine Ratio 11/25/2023 023, 07/07/2022, 04/01/2021, Additional history exists CKD HGB USE SMARTSET 60660 11/25/202311/24, 06/25/2022, 06/25/2022, Additional history exists B-12 01/01/2024 12/31/2022, 08/01, 09/26/2020, Additional history exists CKD PHOS USE SMARTSET 43402 01/01/202412/03, 08/25/2021, 04/01/2021, Additional history exists TSH 01/01/2024 12/31/2022, 06/04, 08/18/2021, Additional history exists Mammogram 01/26/2024 01/25/2023, 01/02, 10/17/2021, Additional history exists DXA Scan 02/03/2024 02/02/2017 Cologuard 09/24/2025 09/24/2022, 08/31, 09/17/2022, Additional history [...] with stage 3a chronic kidney disease (HCC) Vitamin D deficiency Unspecified vitamin D deficiency documented in this encounter Care Teams Vamp Wetter Relationship Specialty Start Date End Date Micah Whitmore MD [address] [place] [address] PCP - General Internal Medicine 09/14/18 documented as of this encounter
--- OUTSIDE RECORDS SUMMARY | 2023-07-30 22:37 | External Medical Summary | Summary of Care ---
Author Name Unknown Organization [facility] Address [address] [place] [address] Phone [phone] Care Team Providers Care Head Of Strategy Name Role Phone Micah Whitmore MD Primary Care Provider + Reason for Visit * Reason Comments Chronic Kidney Disease (CKD) Encounter Details Date Type Department Care Team (Late Contact Info) Description 06/29/2023 10:00 AM EST Office Visit Nephrology, Jasmine Mera 200 [place] [address] Kamille Cummings MD 200 [place] [address] Hypertensive kidney disease with stage 3a chronic [...] Oral Tablet (Coumadin)Indicat ions:PAF (paroxysmal atrial fibrillation) ([facility]) Take 1 Tablet by mouth daily. Or as directed by anticoagulation clinic 90 Tablet 2 3 Active Repaglinide 0.5 MG Oral Tablet (Prandin)Indicati ons: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 disease, without long-term current use of insulin ([facility]) TAKE ONE TABLET BY MOUTH THREE TIMES A DAY 15 MINUTES BEFORE MEALS 270 Tablet 2 3 Active Metoprolol Tartrate 100 MG Oral Tablet (Lopressor)Indica tions:PAF (paroxysmal atrial fibrillation) ([facility]),HTN, goal below 140/90 TAKE ONE-HALF TABLET BY MOUTH EVERY MORNING AND TAKE ONE-HALF TABLET BY MOUTH BEFORE BEDTIME 90 Tablet 3 3 12/06/19 24 Active Ozempic (1 MG/DOSE) 4 MG/3ML Subcutaneous Solution Pen-injector (Semaglutide (1 MG/DOSE))Indicati ons:Type 2 diabetes mellitus with hemoglobin A1c goal of less than 8.0% ([facility]) Inject 1 mg under [...] hemoglobin A1c goal of less than 7.5% ([facility]) Take by mouth 1 Tablet in the morning. 90 Tablet 3 3 Active Bumetanide 1 MG Oral Tablet (Bumex)Indication s:PAF (paroxysmal atrial fibrillation) ([facility]),HTN, goal below 140/90 Take 1 Tablet by mouth in the morning. 100 Tablet 3 3 Active Amiodarone HCl 200 MG Oral Tablet (Cordarone)Indica tions:PAF (paroxysmal atrial fibrillation) ([facility]) TAKE ONE TABLET BY MOUTH EVERY DAY [...] mRNA, LNP-s, No Pre serve, 2-Dose Series ([employer]) 02/25/2021,07/23/2020,06/27/2020 COVID-19, LNP-s, No Preserve , Derek-sucrose, Ages 12+ ([employer]) 12/04/2021 COVID-19, MRNA-LNP, 23-24, P F, 30 MCG/0.3 mL, 12 YRS AND ABOVE, IM ([employer]) 06/22/2023 Covid-19, Mrna, Lnp-s, Pf, B ivalent, 30 Mcg, IM, 12 yrs and above ([employer]) 02/03/2022 HepA Inact/HepB Recomb>=18yrs old 05/05/2018,,10/27/2017 04/28/2018 [...] NOTE Nephrology, Jasmine Mera [address] [facility] [address] 06/29/2023, 11:04 AM Patient Name: Alex Paulino [...] Has had stroke in past. Admitted [facility] February 2020 with severe sepsis, group B beta-hemolytic strep possibly from lower abdominal cellulitis; cxs also grew Proteus. Lumbar diskitis/possible osteomyelitis noted. Status post August [address] Thrasher Admitted [facility] March 2021 for Proteus bacteremia/pyelonephritis in setting of obstructive uropathy. Admitted [facility] 04/22/21-05/07/21 for septic shock one day after OP stent replacement; she presentedobtunded and had cardiac arrest in ER just after intubation; VDRF x 1 wk. In wake of pressors has chronic wounds on feet for which still following at wound clinic. Ultimately d/c to [facility]; not home until 05/26/21. Not sure how much she drinks in a day. Drinks water w/ Barnard flavoring in it and 4 diet pepsi's [...] 2.11 Most recent imaging: August 2022 [facility] u/s R kidney 9 cm, L 11; [...] stones: YES . Follows w/ dr fay [facility] Family history of CKD or ESRD: M w/ diabetic renal dz on HD prior to her . 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 TODAY 06/29/2023: BG elevated and BUN up [...] most days. On ozempic and working at [employer]; least she's weighed in 30+ yrs LE [...] more BP meds Kamille Cummings MD Nephrology, [facility] 200 [facility] [address] CC: Ref: KAMILLE CUMMINGS[[id number]] 200 [place] [address] (office) [phone] (fax) PCP: MICAH WHITMORE [address] [place] [address] [place] [address] [phone] This chart was completed in part utilizing [email or web address] Speech Voice Recognition Software. Randomword insertions, pronoun [...] PM EDT Office Visit General Internal Medicine [facility] 200 [place] [address] Micah Whitmore MD [address] [place] [address] [place] [address] 07/19/2023 3:00 PM EDT Anticoagulation Pharmacy, [facility] [address] [place] [address] Pharmacist2, [facility] [address] [place] [address] 08/19/2023 9:30 AM EDT Office Visit Cardiology, [facility] [address] [place] [address] Florentin Senior PAMarniC [address] [place] [address] 08/19/2023 1:00 PM EDT Nurse Only Ancillary [facility] [address] [place] [address] Im, Nurse Annual Wellness [facility] [address] [place] [address] 11/09/2023 9:40 AM EDT Office Visit Dermatology [facility] [address] [place] [address] Crystal Hernández PA-C 200 [facility] [place] [phone] 01/04/2024 3:20 PM EDT Office Visit Sleep Disorders Ctr [facility] [address] [place] [phone] Liudmila Singleton, [address] [place] [address] 01/27/2024 1:00 PM EDT Imaging Radiology [address] [place] [address] 02/18/2024 9:30 AM EDT Cardiac Studies Cardiac Studies, [facility] [address] [place] [address] 05/05/2024 3:00 PM EST Office Visit Nephrology, [facility] [address] [place] [address] Kamille Cummings MD 200 [place] [address] Scheduled Orders Name Type Priority Associated Diagnoses [...] Additional history exists CKD HGB USE SMARTSET 30420 11/25/202311/24, 06/25/2022, 06/25/2022, Additional history exists GFR 12/23/2023 06/24/2023, 01/01, 12/31/2022, Additional history exists B-12 01/01/2024 12/31/2022, 08/01, 09/26/2020, Additional history exists TSH 01/01/2024 12/31/2022, 06/04, 08/18/2021, Additional history exists Mammogram 01/26/2024 01/25/2023, 01/02, 10/17/2021, Additional history exists DXA Scan 02/03/2024 02/02/2017 CKD PHOS USE SMARTSET 30026 06/24/202406/044, 12/31/2022, 08/25/2021, Additional history exists Albumin/Creatinine [...] (HCC) documented in this encounter Care Teams Head Of Strategy Relationship Specialty Start Date End Date Micah Whitmore MD [address] [facility] [place] [address] PCP - General Internal Medicine 09/14/18 documented as of this encounter"
--- OUTSIDE RECORDS SUMMARY | 2023-07-30 22:37 | External Medical Summary ---
Author Name Unknown Address Unknown Organization K01:[facility] - [address] [place] [address] Laboratory Report Ordering Provider Test Date Status EMILIANO SIMENTAL 06/24/2023 12:53:03 Final Deficient: <20 ng/mL
Ins ufficient: 20-29 ng/mL
Recommended/Optimum:30-50 ng/mL

Vitamin D intoxication is rare. If suspicious of Vitamin D toxicity, evaluation of serum Calcium and PTH is recommended. Observation Date Value Abnormality Reference (Units ) Status 25-OH Vitamin D total 06/24/2023 12:53:03 40 >19 (ng/mL) Final Performing Location [facility] - [address] [place] [address]
--- OUTSIDE RECORDS SUMMARY | 2023-07-30 22:37 | External Medical Summary ---
Author Name Unknown Address Unknown Organization K09:[facility] [place] [address] Laboratory Report Ordering Provider Test Date Status KAMILLEEMILIANO 06/24/2023 12:53:03 Final Observation Date Value Abnormality Reference (Units ) Status BUN 06/24/2023 12:53:03 32 Above high normal 6-20 (mg/dL) Final Creatinine 06/24/2023 12:53:03 1.1 Above high normal 0.5-1.0 (mg/dL) Final Glomerular filtration rate/1.73 sq M.predicted [Volume Rate/Area] in Serum, Plasma or Blood by Creatinine-based formula (CKD-EPI) 06/24/2023 12:53:03 55 Below low normal >=60 (mL/min) Final eGFR is calculated based on the CKD-EPI 2020 equation SODIUM 06/24/2023 12:53:03 139 135-146 (m mol/L) Final Potassium 06/24/2023 12:53:03 4.5 3.5-5.1 (m mol/L) Final Cl 06/24/2023 12:53:03 104 98-107 (mm ol/L) Final CO2 06/24/2023 12:53:03 22 22-32 (mmo l/L) Final Anion gap 06/24/2023 12:53:03 13 7-15 (mmol /L) Final Glucose 06/24/2023 12:53:03 198 Above high normal 70 -120 (mg/dL) Final Calcium 06/24/2023 12:53:03 9.7 8.4-10.2 ( mg/dL) Final Albumin 06/24/2023 12:53:03 4.2 3.8-5.0 (g /dL) Final Phosphate 06/24/2023 12:53:03 2.7 2.5-4.8 (m g/dL) Final Performing Location [facility] [place] [address]
--- OUTSIDE RECORDS SUMMARY | 2023-07-30 22:37 | External Medical Summary | Summary of Care ---
Author Name Unknown Organization [facility] Address [address] [place] [address] Phone [phone] Care Team Providers Care Drafter (Cad) Electronic Name Role Phone Micah Pinto MD Primary Care Provider + Reason for Visit * Reason Comments Follow Up Lesion on R. Side of face x4 months, pt reports lesion is scaly in appearance Encounter Details Date Type Department Care Team (Late st Contact Info) Description 06/24/2023 1:15 PM EST Office Visit Dermatology [facility] 200 [facility] [place] [address] Micah Morgan MD 200 [facility] [place] [address] Skin neoplasm* Allergies Active Allergy Reactions Criticality Noted Date [...] the morning. 90 Tablet 3 02/24/2023 Active Additional Information Patient not taking.Reported on 06/24/2023 Bumetanide 1 MG Oral Tablet (Bumex)Indications :PAF [...] mRNA, LNP-s, No Pre serve, 2-Dose Series ([employer]) 02/25/2021,07/23/2020,06/27/2020 COVID-19, LNP-s, No Preserve , Derek-sucrose, Ages 12+ ([employer]) 12/04/2021 COVID-19, MRNA-LNP, 23-24, P F, 30 MCG/0.3 mL, 12 YRS AND ABOVE, IM ([facility]) 06/22/2023 Covid-19, Mrna, Lnp-s, Pf, B ivalent, 30 Mcg, IM, 12 yrs and above ([employer]) 02/03/2022 HepA Inact/HepB Recomb>=18yrs old 05/05/2018,,10/27/2017 [...] on file documented as of this encounter Progress Notes * Micah Morgan MD - 06/24/2023 1:19 PM EST SUBJECTIVE: Chief Complaint: Chief Complaint Patient presents with Follow Up Lesion on R. Side of face x4 months, pt reports lesion is scaly in appearance HPI: Alex Paulino is a 73 year old female seen for ACUTE visit for lesion on right side of face. Appeared a few months ago. Luis Parcel Wrapper DERMATOLOGIC HISTORY: History of multiple NMSCs OBJECTIVE: GEN: Alert, no distress, appears oriented, pleasant, and cooperative SKIN: Problem focused exam reveals: Right cheek - 1cm pink scaly plaque - ISK vs SCC ASSESSMENT/PLAN: Skin neoplasm(s) - Shave biopsy of the following lesion(s) Right cheek - 1cm pink scaly plaque - ISK vs SCC Procedure - Tangential biopsy of skin Biopsy by shave was recommended for the lesion(s) noted above to establish and confirm diagnosis. The procedure, risks, benefits, alternatives and expected outcomes were discussed with the patient and consent was obtained. Time out called. Patient identified, procedure verified, site(s) identified and verified. Patient and staff present in agreement. Area prepped with alcohol and anesthetized using 0.5% lidocaine with epinephrine at 1:200,000 concentration. Biopsy of lesion(s) performed. 20% AlCl and bandaging applied. Specimen(s) sent to pathology. Patient instructed in routine post-op care. Micah Morgan MD Ref: SELF[[id number]] NO STREET ADDRESS AVAILABLE None (office) None (fax) PCP: MICAH PINTO [address] [place] [address] [phone] documented in this encounter Nursing Notes * Ellen Akhtar LPN - 06/24/2023 1:04 PM EST Patient identified by name and date of . Do you have any concerns about pain management for today's visit? No Living Will or Advance Directive for Health Care as noted on problem list. [email or web address] is a way you can talk to your provider online through e-mail. Would you like to sign up? I can activate it for you? ALREADY ACTIVE Chief Complaint Patient presents with Follow Up Lesion on R. Side of face x4 months, pt reports lesion is scaly in appearance documented in this encounter Plan of Treatment Upcoming Encounters Date Type Department Care Team (Late st Contact Info) Description 06/29/2023 10:00 AM EST Office Visit Nephrology, [facility] [address], [place] [address] Rakel Redman MD [address] [place] [address] 07/19/2023 2:20 PM EDT Office Visit General Internal Medicine [facility] [place] [address] [place] [address] Micah Pinto MD [facility] [place] [address] 07/19/2023 3:00 PM EDT Anticoagulation Pharmacy, [facility] [place] [address] [place] [address] Pharmacist2, [facility] [address] [place] [address] [address] 08/19/2023 9:30 AM EDT Office Visit Cardiology, [facility] [address] [place] [address] Florentin Senior PA-C [address] [place] [address] 08/19/2023 1:00 PM EDT Nurse Only Ancillary [facility] [place] [address] [place] [address] Im, Nurse Annual Wellness [facility] [address] [place] [address] 11/09/2023 9:40 AM EDT Office Visit Dermatology [facility] [place] [address] [place] [address] Crystal Hernández PA-C 200 [facility] [place] [phone] 01/04/2024 3:20 PM EDT Office Visit Sleep Disorders Ctr [facility] 132 [facility] [place] [phone] Liudmila Singletonaret, DO [address] [place] [address] 01/27/2024 1:00 PM EDT Imaging Radiology [facility]st [facility], [address] [place] [address] 02/18/2024 9:30 AM EDT Cardiac Studies Cardiac Studies, [facility] 132 [facility] [place] [address] Pending Results Name Type Priority Associated Diagnoses Date /Time SURGICAL PATHOLOGY Pathology Routine Skin neoplasm 06/24/2023 1:28 PM EST Health Maintenance Due Date Last [...] Additional history exists CKD HGB USE SMARTSET 83565 11/25/202311/24, 06/25/2022, 06/25/2022, Additional history exists B-12 01/01/2024 12/31/2022, 08/01, 09/26/2020, Additional history exists CKD PHOS USE SMARTSET 14532 01/01/202412/03, 08/25/2021, 04/01/2021, Additional history exists TSH [...] as of this encounter Visit Diagnoses Diagnosis Skin neoplasm- Primary Neoplasm of unspecified nature of bone, soft tissue, and skin documented in this encounter Care Teams Drafter (Cad) Electronic Relationship Specialty Start Date End Date Micah Pinto MD [address] [place] [address] PCP - General Internal Medicine 09/14/18 documented as of this encounter
--- OUTSIDE RECORDS SUMMARY | 2023-07-30 22:37 | External Medical Summary | Summary of Care ---
Author Name Unknown Organization [facility] Address [address] [place] [address] Phone [phone] Care Team Providers Care Tenant Relations Coordinator Name Role Phone Micah Whitmore MD Primary Care Provider + Reason for Visit * Reason Comments Outpatient Testing Encounter Details Date Type Department Care Team (Late st Contact Info) Description 06/25/2023 3:40 PM EST Laboratory Laboratory, [place] [address] [place] [address] [facility] [address] [place] [address] Hypertensive kidney disease with stage 3a chronic kidney disease (HCC) Allergies Active Allergy Reactions Criticality Noted Date Comments Erythromycin Base Low 02/03/2020 Other reaction(s): GI UPSET Gabapentin 10/31/2021 Tremors Penicillins Rash 05/24/2012 documented as of this encounter (statuses as of 06/25/2023) Medications Medication Sig Dispensed Refills Start Date [...] hemoglobin A1c goal of less than 8.0% ([facility]) Inject 1 mg under the skin once [...] as of this encounter (statuses as of 06/25/2023) Active Problems Problem Noted Date Diagnosed Date [...] as of this encounter (statuses as of 06/25/2023) Resolved Problems Problem Noted Date Diagnosed Date [...] as of this encounter (statuses as of 06/25/2023) Immunizations Name Administration Dates Next Due COVID-19 mRNA, LNP-s, No Pre serve, 2-Dose Series ([employer]) 02/25/2021,07/23/2020,06/27/2020 COVID-19, LNP-s, No Preserve , Derek-sucrose, Ages 12+ ([employer]) 12/04/2021 COVID-19, MRNA-LNP, 23-24, P F, 30 MCG/0.3 mL, 12 YRS AND ABOVE, IM ([facility]) 06/22/2023 Covid-19, Mrna, Lnp-s, Pf, B ivalent, 30 Mcg, IM, 12 yrs and above ([employer]) 02/03/2022 HepA Inact/HepB Recomb>=18yrs old 05/05/2018,,10/27/2017 04/28/2018 [...] 06/29/2023 10:00 AM EST Office Visit Nephrology, [facility] [address] [place] [id number] Rakel Redman MD [address] [place] [address] [address] 07/19/2023 2:20 PM EDT Office Visit [facility] Adrianna Steele [address] [place] [address] Micah Whitmore MD [address] [place] [address] 07/19/2023 3:00 PM EDT Anticoagulation Pharmacy, Jasmine Mera [place] [address] [place] [address] Pharmacist2, [facility] [address] [place] [address] 08/19/2023 9:30 AM EDT Office Visit Cardiology, [facility] [address] [address] Florentin Senior [facility] [address] [place] [address] 08/19/2023 1:00 PM EDT Nurse Only Ancillary [facility] [address] [address] Im, Nurse Annual Wellness [facility] [address] [address] 11/09/2023 9:40 AM EDT Office Visit Dermatology [facility] [address] [address] Crystal Hernández PA-C [address] [place] [phone] 01/04/2024 3:20 PM EDT Office Visit Sleep Disorders Ctr [facility] [address] [phone] Liudmila Singleton, [address] [address] 01/27/2024 1:00 PM EDT Imaging Radiology [facility] [address] [id number] 02/18/2024 9:30 AM EDT Cardiac Studies Cardiac Studies, [facility] [address] [phone] Pending Results Name Type Priority Associated Diagnoses Date /Time ALBUMIN / CREATININE RATIO, URINE Lab STAT Hypertensive kidney disease with stage 3a chronic kidney disease (HCC) 06/25/2023 3:25 PM EST Health Maintenance Due Date Last [...] Additional history exists CKD HGB USE SMARTSET 07969 11/25/202311/24, 06/25/2022, 06/25/2022, Additional history exists GFR 12/23/2023 06/24/2023, 01/01, 12/31/2022, Additional history exists B-12 01/01/2024 12/31/2022, 08/01, 09/26/2020, Additional history exists TSH 01/01/2024 12/31/2022, 06/04, 08/18/2021, Additional history exists Mammogram 01/26/2024 01/25/2023, 01/02, 10/17/2021, Additional history exists DXA Scan 02/03/2024 02/02/2017 CKD PHOS USE SMARTSET 35349 06/24/202406/04, 12/31/2022, 08/25/2021, Additional history exists Cologuard 09/24/2025 09/24/2022, 08/31, [...] with stage 3a chronic kidney disease (HCC) documented in this encounter Care Teams Tenant Relations Coordinator Relationship Specialty Start Date End Date Micah Whitmore MD [address] [place] [address] PCP - General Internal Medicine 09/14/18 documented as of this encounter
--- OUTSIDE RECORDS SUMMARY | 2023-07-30 22:37 | External Medical Summary ---
Author Name Unknown Address Unknown Organization K01:[facility] - [facility] [place] [address] [place] [address] Laboratory Report Ordering Provider Test Date Status BLAIR CRAFT 07/06/2023 10:30:15 Final Observation Date Value Abnormality Reference (Units ) Status HbA1C 07/06/2023 10:30:15 6.3 Above high normal 4. 0-5.6 (%) Final The use of HbA1c to monitor glycemic status is based on normal hemoglobin and HbA composition. This test should not be used in patients with abnormal hemoglobin that affects the half life of the red blood cell or the in vivo glycation rates. Glucose, estimated average 07/06/2023 10:30:15 134 Above high normal <126 (mg/dL) Babak alonzo Performing Location [facility] - [address] [place] [address]
[2023-07-31 05:21] LABS: A calco-baum cmplx NotReported Not Detected (NotDetected); Bact fragilis Not Reported Not Detected (NotDetected); Blood Culture Id Panel See PCR Comment (NotDetected); C auris Not Reported Not Detected (NotDetected); CTX-M Resistant Gene Not Detected (NotDetected); Calbicans Not Reported Not Detected (NotDetected); Candida glabrata Not Reported Not Detected (NotDetected); Candida krusei Not Reported Not Detected (NotDetected); Cneoformans/gatti Not Reported Not Detected (NotDetected); Cparapsilosis Not Reported Not Detected (NotDetected); E cloacae compx Not Reported Not Detected (NotDetected); Efaecalis Not Reported Not Detected (NotDetected); Efaecium Not Reported Not Detected (NotDetected); Enterobacterales DETECTED (NotDetected); Enterobacterales Not Reported DETECTED (NotDetected); Escherichia coli Not Reported DETECTED (NotDetected); H influenzae Not Reported Not Detected (NotDetected); IMP Resistant Gene Not Detected (NotDetected); K aerogenes Not Reported Not Detected (NotDetected); KPC Resistant Gene Not Detected (NotDetected); Koxytoca Not Reported Not Detected (NotDetected); Kpneumoniae grp Not Reported Not Detected (NotDetected); Lmonocyt Not Reported Not Detected (NotDetected); N meningitidis Not Reported Not Detected (NotDetected); NDM Resistant Gene Not Detected (NotDetected); OXA 48 Like Resistant Gene Not Detected (NotDetected); P aeruginosa Not Reported Not Detected (NotDetected); Proteus spp Not Reported Not Detected (NotDetected); Salmonella spp Not Reported Not Detected (NotDetected); Smarcescens Not Reported Not Detected (NotDetected); Staph lugdunensis Not Reported Not Detected (NotDetected); Staph spp. Not Reported Not Detected (NotDetected); Staphaureus Not Reported Not Detected (NotDetected); Staphepi Not Reported Not Detected (NotDetected); Stenmaltophilia Not Reported Not Detected (NotDetected); Strep agal(GrpB) Not Reported Not Detected (NotDetected); Strep pneum Not Reported Not Detected (NotDetected); Strep pyog (GrpA) Not Reported Not Detected (NotDetected); Strep spp Not Reported Not Detected (NotDetected); VIM Resistant Gene Not Detected (NotDetected); mcr-1 Colistin Resistant Gene Not Detected (NotDetected)
[2023-07-31] MEDS: SODIUM CHLORIDE 0.9% 500 ML IV SCH ×2 (05:38→06:15)
[2023-07-31] MEDS ORDERED: MEROPENEM 1,000 MG in 0.9 % SODIUM CHLORIDE 60 ML IV SCH (05:55)
[2023-07-31] MEDS: ACETAMINOPHEN 1,000 MG/100 ML VIAL IV STA (05:56)
[2023-07-31] MEDS: DAPTOmycin 450 MG in SYRINGE 0 ML IV SCH (06:08)
[2023-07-31] MEDS: MEROPENEM 500 MG in SYRINGE 0 ML IV SCH (06:17)
[2023-07-31] MEDS ORDERED: STAT IV Infusion **Titration per Protocol STA ×3 (06:31→07:08)
[2023-07-31 06:37] LABS: Base Excess ABG -7.1 mEq/L (-9-1.8); HCO3 ABG 17 mmol/L (19-24); Oxygen Saturation ABG 97.7 % (90-95); PCO2 ABG 29 mmHg (35-46); PO2 ABG 76 mmHg (80-95); pH ABG 7.37 (7.35-7.45)
[2023-07-31 06:41] LABS: Allen Test Pos (Pos)
[2023-07-31 06:53] LABS: Hematocrit (blood only) 28.8 % (37.0-47.0); Hemoglobin 9.6 g/dl (12.0-16.0); Mean Corpuscular Hemoglobin 29.7 pg (25.0-34.0); Mean Corpuscular Hgb Conc 33.3 g/dL (32.0-36.0); Mean Corpuscular Volume 89.2 fL (80.0-100.0); Mean Platelet Volume 11.5 fL (9.4-12.4); Nucleated RBC # (auto) 0.07 K/uL (0.00-0.12); Nucleated RBC % (auto) 0.4 %; Platelet Count 172 K/uL (130-400); RDW Coefficient of Variation 14.6 % (11.5-14.5); RDW Standard Deviation 46.9 fL (36.4-46.3); Red Blood Count 3.23 M/uL (4.20-5.40); White Blood Count 16.23 K/ul (4.8-10.8)
--- NOTE | 2023-07-31 07:06 | Critical Care Consultation ---
Date of Consultation July 31, 2023 Assessment & Plan (1) (HFpEF) heart failure with preserved ejection fraction: (2) SAJAN (acute kidney injury): (3) Adenovirus infection: (4) Sepsis: (5) PAF (paroxysmal atrial fibrillation): (6) Type II diabetes mellitus: (7) Acute respiratory failure with hypoxia: (8) Shock circulatory: (9) Gout: (10) Sleep apnea: (11) Hypothyroidism: Plan Reason Critically Ill: 73-year-old female presented to the hospital with diarrhea and generalized weakness Past medical history: Diabetes type 2, CKD 3, gout, dyslipidemia, hypothyroidism, EDYTA on CPAP, paroxysmal A-fib on warfarin as well as amiodarone, hypertension, GERD, history of CVA Patient was found to be hypotensive, transferred to ICU for further management. Neuro - [facility] ICU: Negative Patient is awake alert oriented x 3 at the time of examination today Cardiac - -- Septic shock Likely secondary to UTI Random cortisol 54 Continue with vasopressor support to keep MAP greater than 65 -- History of A-fib On amiodarone as well as metoprolol tartrate 50 mg twice daily at home along with warfarin --History of hypertension On metoprolol and lisinopril along with bumetanide Respiratory - -- Acute hypoxic respiratory failure Multifactorial Likely secondary to septic shock Continue with O2 supplementation to keep oxygen saturation between 90-92% GI - -- Keep patient n.p.o. RENAL/LYTES - -- SAJAN Multifactorial, septic shock with obstruction Follow-up urine lites Monitor BUN/creatinine Avoid nephrotoxic medications Strict ins and outs -- HAGMA Delta-delta: Less then 1, gap plus nongap Gap is likely from lactic acidosis, for nongap follow-up urine lites Follow up serum osm, urine osm, urine lytes ABG 07/31/2023: 7.37/ on 3 L Monitor -- History of gout On allopurinol - -- Nephrolithiasis with mild right hydronephrosis S/p stenting 07/30/2023 Urology on board ENDO - --Hypothyroidism TSH 0.5 Continue levothyroxine --Diabetes type 2 On metformin at home Continue with ICU hypoglycemia protocol HEME - -- Coagulopathy INR 8.3, 2.5 mg of IV vitamin K given -- Normocytic anemia Monitor H&H ID - -- Septic shock with gram-negative bacteremia Follow-up sensitivity and culture Continue with antibiotics Follow-up procalcitonin --Prophylaxis VTE: On warfarin at home GI: Pantoprazole Lines: Left Radial, Right central line Diet: N.p.o. Plan: Strict ins and outs Continue with vasopressor support to keep MAP greater than 65 Vitamin K 2.5 mg given to the patient for INR of 2.3 Condition being replaced DC daptomycin, continue with meropenem for 24-48 hours and then can de-escalate to Rocephin Currently patient is able to maintain her airway as well as mentation without any issues. If there is any decline in either one of them going forward intubation will be thought of. Patient has been positive for liters since coming to the hospital. She only got final mL as per the nurse since the morning. I will start her on 125 mill of Plasma-Lyte for 1 L and then reassess. I have personally spent 54 minutes of critical care time in the direct management of this patient. This is a life/limb threatening event. This includes time spent evaluating patient, direct bedside care, chart review, placing orders, interpretation of diagnostic studies, discussion with consultants, patient, and family members, as well as other required patient management activities. This time is exclusive of all separately billable procedures, and teaching time and separate from and in addition to any other critical care service time. History of Present Illness Attending Physician: Shirley Wilson MD History of Present Illness 73-year-old female presented to the hospital with diarrhea and generalized weakness Past medical history: Diabetes type 2, CKD 3, gout, dyslipidemia, hypothyroidism, EDYTA on CPAP, paroxysmal A-fib on warfarin as well as amiodarone, hypertension, GERD, history of CVA Patient was found to be hypotensive, transferred to ICU for further management. At time of examination patient was saturating 95% on 5 L nasal cannula. She was not in any respiratory distress Heart rate was in the mid to high 80s. MAP in the 70s while on vasopressin 0.04 and Levophed 0.2 Patient was lethargic but answering all the questions appropriately. She denied any headache, no nausea, no vomiting, no abdominal pain, no chest pain, no shortness of breath. She denied any blurry vision. She stated that she is feeling better compared to yesterday and especially early in the morning. Has been spiking fever Tmax 39. Social history: Lifetime non-smoker Allergies Allergy/AdvReac Type Severity Reaction Status Date / Time Penicillins Allergy Intermediate URTICARIA; Verified 07/30/23 16:09 PER PT, CAN TAKE AMOXICILLIN erythromycin base AdvReac Intermediate GI UPSET Verified 07/30/23 16:09 Home Medications Medication Instructions Recorded Confirmed Type allopurinol 100 mg tablet 200 mg PO HS 02/15/18 07/30/23 History (Zyloprim) omeprazole 20 mg capsule,delayed 20 mg PO QAM 02/15/18 07/30/23 History release spironolactone 25 mg tablet 25 mg PO QAM 02/15/18 07/30/23 History (Aldactone) magnesium oxide 400 mg PO QPM 02/03/20 07/30/23 History rosuvastatin 10 mg tablet (Crestor) 10 mg PO HS 02/03/20 07/30/23 History metoprolol tartrate 50 mg tablet 50 mg PO BID #0 tabs 02/09/20 07/30/23 Rx bumetanide 1 mg tablet 1 mg PO QAM 06/20/20 07/30/23 History cholecalciferol (vitamin D3) 25 1,000 unit PO QAM 06/20/20 07/30/23 History mcg (1,000 unit) capsule metformin 500 mg tablet,extended 500 mg PO QAM 06/20/20 07/30/23 History release 24 hr amiodarone 200 mg tablet 200 mg PO QAM 09/04/20 07/30/23 History amlodipine 5 mg tablet 5 mg PO BID 09/04/20 07/30/23 History multivitamin 1 tab PO QPM 03/10/21 07/30/23 History levothyroxine 112 mcg tablet 112 mcg PO QAM 04/14/21 07/30/23 History lisinopril 10 mg tablet 10 mg PO QPM 04/14/21 07/30/23 History acetaminophen 500 mg tablet 500 mg PO TID PAIN/FEVER 07/15/21 07/30/23 History (Tylenol Extra Strength) iron,carbonyl 65 mg-vitamin C 125 1 tab PO MOWEFR 07/30/23 07/30/23 History mg tablet,delayed release (Vitron-C) repaglinide 0.5 mg tablet 0.5 mg PO TID 07/30/23 07/30/23 History semaglutide 1 mg/dose (4 mg/3 mL) 1 mg subcut WK 07/30/23 07/30/23 History subcutaneous pen injector (Ozempic) warfarin 5 mg tablet See Rx Instructions .Route .COMPLEX 07/30/23 07/30/23 History Patient History Medical History (HFpEF) heart failure with preserved ejection fraction PAF (paroxysmal atrial fibrillation) Rotator cuff tear arthropathy of both shoulders Venous ulcer Complex renal cyst Pseudomonas infection Osteonecrosis MRSA infection Diabetic ulcer of left foot associated with diabetes mellitus due to underlying condition, with fat layer exposed Diabetic ulcer of right foot associated with diabetes mellitus due to underlying condition, with fat layer exposed PEA (Pulseless electrical activity) Nephrolithiasis Discitis of lumbosacral region Chronic venous insufficiency Osteoarthritis Anemia MRSA (methicillin resistant Staphylococcus aureus) From wound in 2017 - Per Infection Control (04/21/21) pt does not need to be on precautions at this time T2DM (type 2 diabetes mellitus) Hx of osteomyelitis Spine (02/2020) treated at [facility] with ferry terminal agent antibiotics and oxycodone for pain management Sleep apnea CPAP Hypertension Hypothyroidism Morbid obesity CVA (cerebral vascular accident) Silent > Old infarct found on remote CT imaging (dating back to at least 2017) CKD stage 3 secondary to diabetes DM II (diabetes mellitus, type II), controlled NIDDM Dyslipidemia Gout hx Anemia Hx of basal cell carcinoma Gastric ulcer due to Helicobacter pylori hx Surgical History S/P ureteral stent placement S/P panniculectomy S/P ureteral stent placement History of cystoscopy History of cataract surgery S/P panniculectomy History of umbilical hernia repair (09/11/20) Umbilical Hernia Repair with Mesh - Pete Zafar DO, FACS History of cardioversion RASHID with cardioversion (02/07/20): MAC sedation at [facility] S/P debridement multiple abdominal debridements at [facility]. 08/2020 History of esophagogastroduodenoscopy (EGD) H/O repair of rotator cuff right H/O left knee surgery multiple knee arthroscopy on left H/O basal cell carcinoma excision Status post Mohs surgery History of carpal tunnel surgery History of arthroplasty of left knee Family History Mother Diabetes Heart disease Father Hypertension Stroke Other No family history of adverse response to anesthesia No pertinent family history Social History Smoking Status: Never smoker Second Hand Exposure: No; Do You Dip or Chew Tobacco: No; Hx Alcohol Use: Yes Alcohol type: wine Hx Substance Use: No Preferred Language: Chinese Communication Ability: Effective Hearing Ability: Normal Trawl Net Maker Required: No Beliefs That Will Affect Care: None marital status: / Current Living Situation: Alone Current Living Situation Comment: [employer]. 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 How many Children do You have: 2 Feels Safe at Home: Yes Diet: diabetic during the past year weight has: decreased > 10 lbs Assistive Devices: Cane and Walker Review of Systems 2 Review of Systems: All systems reviewed & are unremarkable except as noted in HPI & below Physical Exam 2 Physical Exam: Constitutional: No acute distress HEENT: EOMI, PERRLA Respiratory system: Decreased air entry bilaterally, no wheeze, no rhonchi, no crackles CVS: S1-S2 positive, no murmurs or gallops Abdomen: Soft, nontender, nondistended, positive bowel sounds x4, obese Extremities: +1 pulses bilaterally radialis/ dorsalis pedis, no cyanosis, chronic venous stasis appreciated bilaterally Neuro: Awake alert oriented x3 Psych: Normal mood and affect G/U: Positive Joseph Skin: no rashes, warm and dry Lymphatic: no cervical or axillary lymphadenopathy Results & Data Results & Data Vital Signs (Past 12 Hours) Vital Signs Temp Pulse Pulse Resp BP BP Pulse Ox 07/31/23 06:16 85/49 L 07/31/23 05:43 39.0 C H 95 H 24 84/44 L 91 07/31/23 05:29 38.6 C H 100 H 24 82/34 L 91 07/31/23 02:40 36.6 C 102 H 22 102/45 L 91 07/30/23 23:48 36.9 C 99 H 22 120/102 H 95 07/30/23 22:56 07/30/23 22:42 36.6 C 83 18 93/48 L 93 07/30/23 21:56 85 07/30/23 20:52 37.4 C 100 H 18 110/49 L 100 07/30/23 20:15 101 H 07/30/23 20:15 37.6 C H 97 H 22 143/49 H 97 07/30/23 20:15 37.6 C 97 H 20 143/49 H 97 07/30/23 19:50 100 H 22 122/72 93 07/30/23 19:40 36.9 C 101 H 22 118/69 93 07/30/23 19:30 101 H 24 118/70 100 07/30/23 19:20 36.2 C L 99 H 22 113/63 97 O2 Del Method O2 Flow Rate 07/31/23 06:16 07/31/23 05:43 Room Air 2 07/31/23 05:29 Nasal Cannula 2 07/31/23 02:40 Nasal Cannula 07/30/23 23:48 Nasal Cannula 3 07/30/23 22:56 Nasal Cannula 2 07/30/23 22:42 Nasal Cannula 07/30/23 21:56 07/30/23 20:52 Nasal Cannula 07/30/23 20:15 07/30/23 20:15 Nasal Cannula 2 07/30/23 20:15 Nasal Cannula 2 07/30/23 19:50 Nasal Cannula 2 07/30/23 19:40 Nasal Cannula 2 07/30/23 19:30 Oxymask 4 07/30/23 19:20 Oxymask 6 Laboratory Results 07/31/23 06:27 Coding Level of Care Code 22133 CRITICAL CARE 1ST 30-74M Diagnoses (HFpEF) heart failure with preserved ejection fraction I50.30 SAJAN (acute kidney injury) N17.9 Adenovirus infection B34.0 Sepsis A41.9 PAF (paroxysmal atrial fibrillation) I48.0 Type II diabetes mellitus E11.9 Acute respiratory failure with hypoxia J96.01 Shock circulatory R57.9 Gout M10.9 Sleep apnea G47.30 Hypothyroidism E03.9
[2023-07-31] MEDS: NOREPINEPHRINE/D5W 4 MG/250 ML PLCT IV SCH (07:10)
[2023-07-31 07:15] LABS: Basophils # (auto) 0.03 K/uL (0.00-0.20); Basophils % (auto) 0.2 %; Dohle Bodies 1+; Echinocytes 3+; Immature Granulocytes # (auto) 0.08 K/uL (0.01-0.20); Immature Granulocytes % (auto) 0.5 %; Lymphocytes # (auto) 0.27 K/uL (1.20-3.40); Lymphocytes % (auto) 1.7 %; Monocytes # (auto) 0.67 K/uL (0.11-0.59); Monocytes % (auto) 4.1 %; Neutrophils # (auto) 15.18 K/uL (1.40-6.50); Neutrophils % (auto) 93.5 %; Prothrombin Time 79.7 Seconds (9.0-12.0); Toxic Vacuolation 2+
[2023-07-31] MEDS ORDERED: NOREPINEPHRINE/D5W 4 MG/250 ML PLCT IV SCH (07:15)
[2023-07-31] MEDS: NOREPINEPHRINE/D5W 4 MG/250 ML IV ONE (07:20)
[2023-07-31] MEDS: VASOPRESSIN 20 UNITS in 0.9 % SODIUM CHLORIDE 100 ML IV SCH (07:21)
[2023-07-31 07:22] LABS: INR 8.3 (0.9-1.1)
[2023-07-31 07:25] LABS: iSTAT Art Bld Gas pCO2 Correct 35 mmHg (35-46); iSTAT Art Bld Gas pH Corrected 7.296 (7.35-7.45); iSTAT Arterial Blood Gas HCO3 17 meg/L (19-24); iSTAT Arterial Blood Gas pCO2 34 mmHg (35-46); iSTAT Arterial Blood Gas pH 7.31 (7.35-7.45); iSTAT Arterial Blood Gas pO2 99 mmHg (80-95); iSTAT Arterial Blood Gas pO2 C 105; iSTAT Carbon Dioxide 18 mmol/L (24-31); iSTAT Hematocrit 29 % (37-47); iSTAT Hemoglobin 9.9 g/dl (12.0-16.0); iSTAT Potassium 4.7 mmol/L (3.3-5.0); iSTAT Site Art Line; iSTAT Sodium 130 mmol/L (135-144)
--- NOTE | 2023-07-31 07:26 | Procedure Note ---
Procedure Note Date of Service July 31, 2023 Note ARTERIAL LINE PROCEDURE NOTE: Procedure: Arterial Line Placement Proceduralist: Sergey POLLARD ([facility] Attending: Dr. Cervantes Indication: Monitoring on Pressors Anesthesia: [x]Lidocaine 1% x Emergent Consent was implied as patient was with rapidly escalating vasopressor requirement. Patient was verbally informed of procedure and agreed. A time-out was completed verifying correct patient, procedure, site, positioning , Allens test was performed to ensure adequate perfusion. Patients LEFT wrist was prepped and draped in the usual sterile fashion. Ultrasound guidance was used to aid needle placement. A 20g Arrow arterial line was introduced into the LEFT RADIAL artery, brisk blood return was noted, wire was advanced without resistance and the catheter was threaded. The needle was removed with appropriate blood return. Good waveform was observed. The patient tolerated the procedure well. Blood loss minimal and the line was secured in place with suture and covered with sterile dressing. Blood Loss: Minimal Complications: None Artery Identified: YES Complications: NONE Immediate Patient tolerated procedure: WELL Coding CPT Codes Tubes, Drains, and Vasc Access - Tubes, Drains, and Vasc Access: [id number] Arterial Cath/Cannulation Sampling/Monitoring/Transfusion ([id number]) [facility] Procedure Codes (Charges) Tubes, Drains, and Vasc Access Procedure 1: Tubes, Drains, and Vasc Access: [id number] Arterial Cath/Cannulation Sampling/Monitoring/Transfusion
--- NOTE | 2023-07-31 07:26 | Procedure Note ---
Procedure Note Date of Service July 31, 2023 Note INTERNAL JUGULAR CENTRAL LINE PROCEDURE NOTE: Procedure: Internal Jugular Central Line Placement Proceduralist: Sergey POLLARD ([facility]-) Attending: Dr. Cervantes Indication: Central Drug Administration, Poor Venous Access, Multiple Lab Draws Necessary, etc. Anesthesia: [x]Lidocaine 1% Emergent Consent implied as patient was with rapidly escelating vasopressor requirements and remaining with severe septic shock. Patient was informed of need for procedure and stated "OK". A time-out was completed verifying correct patient, procedure, site, positioning, Patients RIGHT Neck was cleansed and draped in the typical ster ile fashion using Chloraprep. The Internal Jugular Vein and Carotid Artery were identified using ultrasound appropriate target was identified. The superficial tissue was anesthetized using 5 mL of 1% lidocaine without epinephrine under direct visualization with the ultrasound. After adequate anesthetization was achieved, the Internal Jugular vein was cannulated under direct ultrasound guidance using an introducer needle on a syringe. Good venous blood return was maintained prior to removal of syringe from introducer needle. Using Seldinger Technique, a guide wire was advanced through the introducer needle without resistance. The introducer needle was removed and ultrasound images were obtained of the guide wire within the Internal Jugular Vein. A small incision was made in penetrating fashion at the guide wire insertion site utilizing an 11 blade scalpel. The dilator was advanced to the skin without resistance. The dilator was exchanged for the triple lumen catheter which was advanced into the vessel without resistance. The guide wire was removed intact from the catheter without issue. Claves were placed on each catheter tip with confirmation of good blood flow from each lumen. Each port was easily flushed with sterile saline. The catheter was placed at 18 cm and sutured in place. BioPatch was applied to the catheter and a sterile Tegaderm dressing was applied over the catheter with careful attention to sterility. Patient tolerated procedure well. No immediate complications were met. Post procedure x-ray was completed, placement was appropriate and no pneumothorax was noted. Images obtained were NOT saved for permanent record as this was emergent Artery AND Vein visualized: YES Compressible Vein: YES Guidewire or Short Catheter seen in vein prior to dilation: YES Coding CPT Codes Tubes, Drains, and Vasc Access - Tubes, Drains, and Vasc Access: [id number] Insertion Of Non-tunneled Catheter Age 5 Yrs> ([id number]) [facility] [place] [place] Procedure Codes (Charges) Tubes, Drains, and Vasc Access Procedure 1: Tubes, Drains, and Vasc Access: [id number] Insertion Of Non-tunneled Catheter Age 5 Yrs>
--- NOTE | 2023-07-31 07:32 | Communication Note ---
Date of Service: July 31, 2023 Apparently patient was doing ok in the night except poor urine output. Early hrs today spiked temp and BP seems dropping into 80's. gave iv tyelnol got 750 fluid bolus. and broaden antibiotics to meropenem and dapto. patient somewhat drowsy . Ordered abg, random cortisol and repeat lactic acid . Bp was keep dropping further. So far received 4lts fluids since admit. Notified critical care. Was placed on pressor and transferred to ICU. Daughter notified.
[2023-07-31] MEDS: PHYTONADIONE 2.5 MG in DEXTROSE 5% 50 ML IV ONE (07:36)
--- NOTE | 2023-07-31 07:44 | XRay Report ---
XR chest 1V portable HISTORY: line placement COMPARISON: Chest 04/28/2021. FINDINGS: A right jugular catheter terminates in the distal SVC. No pneumothorax. No pleural effusion s. The heart remains enlarged. There is interstitial/vascular thickening consistent with mild pulmona ry edema. No focal lung consolidations to suggest a pneumonia. There are low lung volumes. No acute f ractures. IMPRESSION: 1. A right jugular central venous catheter terminates at the distal SVC. 2. No pneumothorax. 3. Cardiomegaly and mild interstitial pulmonary edema. ACT 112: Negative or not required by law. Electronically signed by: Suhail Nolen M.D. 07/31/2023 7:43 AM
[2023-07-31 07:45] LABS: Albumin Globulin Ratio 0.8 (0.9-2); Albumin Level 2.3 gm/dl (3.4-5.0); BUN Creatinine Ratio 17.3 (10-20); Bilirubin,Total 0.5 mg/dl (0.2-1.0); Calcium 7.4 mg/dl (8.6-10.3); Creatinine Clr Calc Pharmacy 15.6 ml/min; Est GFR (African American) 11.5 ml/min; Est GFR (Non-African American) 9.9 ml/min; Magnesium 1.5 mg/dl (1.7-2.4); Phosphorus 3.3 mg/dl (2.5-4.9); Potassium 4.8 mmol/L (3.5-5.1); Total Protein 5.3 gm/dl (6.0-8.3)
[2023-07-31 07:53] LABS: Thyroid Stimulating Hormone 0.566 uIu/ml (0.300-4.500)
[2023-07-31] MEDS: PLASMA-LYTE A 1,000 ML IV SCH (07:55)
[2023-07-31 08:19] LABS: Appearance Urine Turbid (Clear); Blood Urine 3+ (Negative); Color Urine Orange; Epithelial Cell Urine Auto >30 /lpf (0-5); Glucose Urine UA Negative (Negative); Ketones Urine Trace (Negative); Leukocyte Esterase Urine 3+ (Negative); Nitrite Urine Negative (Negative); Protein Urine 3+ (Negative); Specific Gravity Urine 1.025 (1.000-1.030); Urobilinogen Urine Negative (Negative); WBC Urine Automated >30 /hpf (0-5)
[2023-07-31 08:56] LABS: Creatinine Urine Random 137.7 mg/dl; Potassium Random Urine 67.5 mmol/L
[2023-07-31] MEDS ORDERED: CEFEPIME 1,000 MG in SYRINGE 0 ML IV SCH (09:00)
[2023-07-31] MEDS ORDERED: AMIODARONE 200 MG TAB PO SCH (09:00)
[2023-07-31] MEDS: Patient's WEIGHT Needed SCH (09:01)
[2023-07-31 09:26] LABS: Bilirubin Urine 1+ (Negative)
[2023-07-31 09:29] LABS: Bacteria Urine Automated 1+ (Negative); RBC Urine Automated >30 /hpf (0-4)
[2023-07-31] MEDS: MAGNESIUM SULFATE / D5W 1 GM/100 ML BAG IV SCH (09:30)
[2023-07-31] MEDS: LEVOTHYROXINE SODIUM 112 MCG TABLET PO SCH (10:57)
[2023-07-31] MEDS: PANTOprazole 40 MG in SYRINGE DAILY IV SCH (10:57)
[2023-07-31] MEDS: PANTOprazole 40 MG TAB PO SCH (11:41)
--- NOTE | 2023-07-31 14:07 | Hospitalist Progress Note ---
Date of Service July 31, 2023 Assessment & Plan (1) Sepsis: Plan: Secondary to complicated UTI with right ureteral obstruction and hydronephrosis Urine culture and blood cultures are growing gram-negative bacilli-further identification is pending Received 1 dose of ceftriaxone in the ER followed by cefepime and now has been on daptomycin and meropenem Awaiting further identification of the gram-negative bacilli Will continue current antibiotics Clinically improving Sepsis with hypotension Has been requiring intravenous pressor resents to maintain blood pressure Is transferred to ICU early this morning Appreciate implant polisher input and recommendation Blood pressure has been maintaining around 120s systolic with vasopressor (2) Hydronephrosis with renal and ureteral calculous obstruction: Plan: Patient presenting from home with reports of profuse diarrhea x 3 days. Reports she returned home from a cruise 11 days ago. In the ED, WBC 17 K, mild tachycardia. Afebrile, BP stable. Lactate pending. UA suggestive of UTI. CT ABD/pelvis showing 1.4 x 0.6 cm proximal right ureteral calculus results in mild right hydronephrosis with perinephric stranding. S/p ceftriaxone in the ED, given history of Pseudomonas, will continue with cefepime. Check MRSA nasal swab and if positive will add daptomycin (in favor of Vanco given SAJAN) Urology contacted by ED, planning on cystoscopy this evening Status post cystoscopy, retrograde pyelogram, aspiration and right ureteral stent placement by Dr. Edwards on 07/30/2023 at 6:30 PM (3) SAJAN (acute kidney injury): Plan: Has had diarrhea prior to presentation with the dehydration SAJAN is complicated by sepsis Has been getting intravenous fluid Urine output was was noted to be low this morning Creatinine improved a little bit yesterday but again worse this morning Expected to improve if there is no improvement will need nephrology evaluation (4) UTI (urinary tract infection): Plan: As above (5) Adenovirus infection: Plan: Complicating sepsis (6) Diarrhea: Plan: Bio fire positive for adenovirus Will also check stool studies and C. difficile Continue supportive care Diarrhea seems to be under control (7) CKD (chronic kidney disease), stage III: Plan: Creatinine 4.2, baseline ~1.1 Secondary to dehydration from severe diarrhea and also obstructing renal calculi IVF, follow renal functions Nephrology consult if not improving (8) PAF (paroxysmal atrial fibrillation): Plan: Rhythm controlled on amiodarone, rate controlled on metoprolol Anticoagulated on Coumadin, (9) (HFpEF) heart failure with preserved ejection fraction: Plan: Echo 01/2023-EF 55 to 59%, moderate aortic stenosis, mild tricuspid regurgitation Volume status acceptable, holding diuretics due to SAJAN/sepsis, resume as able (10) Type II diabetes mellitus: Plan: Hgb A1c 6.3 07/2023 Hold oral agents and Ozempic and utilize NovoLog per protocol while hospitalized (11) Gout: Plan: Hold allopurinol for now due to SAJAN (12) HTN (hypertension): Plan: Continue metoprolol, holding lisinopril and amlodipine due to sepsis/SAJAN, resume as able (13) Hypothyroid: Plan: Chronic, stable Continue levothyroxine (14) Sleep apnea: Plan: CPAP as per home settings DVT PROPHYLAXIS On Coumadin, SCDs when INR <2.0 INR remains supratherapeutic secondary to sepsis Received 2.5 mg of phytonadione No evidence of bleeding Will monitor CODE STATUS Full Admission and Anticipated Discharge Date Admission Date: July 30, 2023 Subjective 07/31/2023 The patient was seen and examined in ICU She was moved to ICU early this morning with hypotension secondary to sepsis She has been feeling a little better and complains to weakness Denies any chest pain, palpitation, any abdominal pain, nausea and or vomiting Review of Systems Review of Systems: All systems reviewed and are unremarkable except as noted below Physical Exam Physical Exam: Lying in bed without any apparent distress Constitutional: well developed, well nourished, + ill appearing and + obese Eyes: PERRL, conjunctivae normal, anicteric sclerae ENMT: external ear and nose normal, oropharynx normal Neck: trachea midline, no thyromegaly Respiratory: no respiratory distress Auscultation: + diminished lung sounds and + crackles (Minimal crackles at the bases) Cardiovascular: Rate/Rhythm: regular rate and regular rhythm; not tachycardic Heart Sounds: normal S1 and normal S2; no murmur Extremities: no edema (Chronic bilateral skin changes in the legs) Gastrointestinal (Abdomen): Inspection/Auscultation: normal bowel sounds; abdomen not distended Percussion/Palpation: abdomen soft; abdomen nontender Musculoskeletal: No acute arthritis involving any of the joint Neurologic: normal touch/pain/proprioception and moves all extremities (Generally weak and lethargic) Lymphatic: no cervical or axillary lymphadenopathy Results & Data Results & Data Vital Signs (Past 12 Hours) Vital Signs Temp Pulse Pulse Resp BP BP BP 07/31/23 13:01 125/63 07/31/23 13:01 79 20 07/31/23 13:00 81 19 07/31/23 12:50 82 21 07/31/23 12:40 83 15 07/31/23 12:30 82 22 07/31/23 12:20 81 24 07/31/23 12:10 81 21 07/31/23 12:00 99/66 L 07/31/23 12:00 81 26 H 07/31/23 12:00 80 07/31/23 11:50 80 23 07/31/23 11:40 80 22 07/31/23 11:31 80 21 07/31/23 11:31 119/43 L 07/31/23 11:30 79 21 07/31/23 11:20 77 18 07/31/23 11:10 80 22 07/31/23 11:01 81 19 07/31/23 11:01 126/71 07/31/23 11:00 81 21 07/31/23 10:50 80 20 07/31/23 10:40 81 21 07/31/23 10:30 128/40 L 07/31/23 10:30 82 20 07/31/23 10:20 83 15 07/31/23 10:10 84 19 07/31/23 10:01 81 20 07/31/23 10:01 141/37 H 07/31/23 10:00 83 22 07/31/23 09:50 83 27 H 07/31/23 09:40 82 19 07/31/23 09:30 83 19 07/31/23 09:20 84 25 H 07/31/23 09:10 84 20 07/31/23 09:01 85 27 H 07/31/23 09:01 122/40 L 07/31/23 09:00 81 23 07/31/23 08:50 82 21 07/31/23 08:40 83 23 07/31/23 08:30 115/59 L 07/31/23 08:30 87 29 H 07/31/23 08:27 07/31/23 08:20 87 29 H 07/31/23 08:10 87 29 H 07/31/23 08:01 87 30 H 07/31/23 08:01 109/34 L 07/31/23 08:00 86 28 H 07/31/23 08:00 87 07/31/23 07:50 87 26 H 07/31/23 07:44 36.8 C 07/31/23 07:40 84 26 H 07/31/23 07:30 86 28 H 07/31/23 07:25 96/50 L 07/31/23 07:25 87 24 07/31/23 07:21 94/49 L 07/31/23 07:21 87 30 H 07/31/23 07:20 87 30 H 07/31/23 07:15 87 29 H 07/31/23 07:15 92/38 L 07/31/23 07:12 96 H 28 H 07/31/23 07:12 89/33 L 07/31/23 07:10 86 24 07/31/23 07:01 85 25 H 07/31/23 07:01 77/48 L 07/31/23 07:00 86 27 H 07/31/23 06:56 111/30 L 07/31/23 06:56 85 24 07/31/23 06:50 86 22 07/31/23 06:50 95/31 L 07/31/23 06:46 89 07/31/23 06:46 91 H 23 07/31/23 06:33 92 H 24 07/31/23 06:30 93 H 18 07/31/23 06:28 78/38 L 07/31/23 06:28 94 H 29 H 07/31/23 06:27 73/48 L 07/31/23 06:27 94 H 31 H 07/31/23 06:25 68/42 L 07/31/23 06:25 92 H 26 H 07/31/23 06:20 95 H 27 H 07/31/23 06:16 85/49 L 07/31/23 06:11 85/49 L 07/31/23 06:11 93 H 34 H 07/31/23 06:10 94 H 28 H 07/31/23 06:00 95 H 29 H 07/31/23 05:50 99 H 26 H 07/31/23 05:43 39.0 C H 95 H 24 84/44 L 03/30/24 05:41 101 H 31 H 07/31/23 05:41 84/44 L 07/31/23 05:40 93 H 29 H 07/31/23 05:39 94 H 29 H 07/31/23 05:39 72/45 L 07/31/23 05:38 73/31 L 07/31/23 05:38 94 H 25 H 07/31/23 05:31 101 H 31 H 07/31/23 05:31 82/34 L 07/31/23 05:30 99 H 30 H 07/31/23 05:29 99 H 27 H 07/31/23 05:29 79/39 L 07/31/23 05:29 38.6 C H 100 H 24 82/34 L 07/31/23 02:40 36.6 C 102 H 22 102/45 L Pulse Ox Pulse Ox O2 Del Method O2 Del Method O2 Flow Rate O2 Flow Rate 07/31/23 13:01 07/31/23 13:01 94 07/31/23 13:00 94 07/31/23 12:50 93 07/31/23 12:40 93 07/31/23 12:30 93 07/31/23 12:20 94 07/31/23 12:10 93 07/31/23 12:00 07/31/23 12:00 93 07/31/23 12:00 07/31/23 11:50 93 07/31/23 11:40 94 07/31/23 11:31 93 07/31/23 11:31 07/31/23 11:30 93 07/31/23 11:20 93 07/31/23 11:10 94 07/31/23 11:01 93 07/31/23 11:01 07/31/23 11:00 93 07/31/23 10:50 94 07/31/23 10:40 94 07/31/23 10:30 07/31/23 10:30 94 07/31/23 10:20 94 07/31/23 10:10 90 07/31/23 10:01 93 07/31/23 10:01 07/31/23 10:00 93 07/31/23 09:50 94 07/31/23 09:40 93 07/31/23 09:30 93 07/31/23 09:20 93 07/31/23 09:10 94 07/31/23 09:01 94 07/31/23 09:01 07/31/23 09:00 93 07/31/23 08:50 94 07/31/23 08:40 94 07/31/23 08:30 07/31/23 08:30 07/31/23 08:27 95 Oxymask 3 07/31/23 08:20 07/31/23 08:10 07/31/23 08:01 95 07/31/23 08:01 07/31/23 08:00 95 07/31/23 08:00 07/31/23 07:50 95 07/31/23 07:44 07/31/23 07:40 95 07/31/23 07:30 96 07/31/23 07:25 07/31/23 07:25 96 07/31/23 07:21 07/31/23 07:21 97 07/31/23 07:20 97 07/31/23 07:15 100 07/31/23 07:15 07/31/23 07:12 98 07/31/23 07:12 07/31/23 07:10 97 07/31/23 07:01 96 07/31/23 07:01 07/31/23 07:00 97 07/31/23 06:56 07/31/23 06:56 96 07/31/23 06:50 88 L 07/31/23 06:50 07/31/23 06:46 07/31/23 06:46 92 07/31/23 06:33 92 07/31/23 06:30 93 07/31/23 06:28 07/31/23 06:28 07/31/23 06:27 07/31/23 06:27 93 07/31/23 06:25 07/31/23 06:25 07/31/23 06:20 92 07/31/23 06:16 07/31/23 06:11 07/31/23 06:11 92 07/31/23 06:10 89 L 07/31/23 06:00 91 07/31/23 05:50 91 07/31/23 05:43 91 Room Air 2 07/31/23 05:41 90 07/31/23 05:41 03/30/24 05:40 90 07/31/23 05:39 91 07/31/23 05:39 07/31/23 05:38 07/31/23 05:38 89 L 07/31/23 05:31 91 07/31/23 05:31 07/31/23 05:30 91 07/31/23 05:29 91 07/31/23 05:29 07/31/23 05:29 91 Nasal Cannula 2 07/31/23 02:40 91 Nasal Cannula Laboratory Results Short CBC 07/31/23 Range/Units 06:27 WBC 16.23 H (4.8-10.8) K/ul Hgb 9.6 L (12.0-16.0) g/dl Hct 28.8 L (37.0-47.0) % Plt Count 172 (130-400) K/uL BMP 07/30/23 07/31/23 21:20 06:27 Sodium 129 L 131 L Potassium 4.6 4.8 Chloride 99 103 Carbon Dioxide 18 L 17 L BUN 65 H 72 H Creatinine 3.79 H D 4.17 H D Glucose 155 H 132 H Calcium 7.9 L 7.4 L Liver Function 07/31/23 Range/Units 06:27 Total Bilirubin 0.5 (0.2-1.0) mg/dl AST 74 H (13-39) U/L ALT 94 H (7-52) U/L Alkaline Phosphatase 112 H (34-104) U/L Albumin 2.3 L (3.4-5.0) gm/dl Urine 07/30/23 07/31/23 Range/Units 15:26 07:45 Urine Color Dark Yellow [place] Urine Appearance Turbid A Turbid A (Clear) Urine pH 5.0 5.0 (4.5-7.5) Ur Specific [place] 1.020 1.025 (1.000-1.030) Urine Protein 3+ H 3+ H (Negative) Urine Glucose (UA) Negative Negative (Negative) Medications Administered Current Inpatient Medications Dextrose (Dextrose 50% 50 Ml Syringe) 25 - 50 ml IV UD PRN; Protocol PRN Reason: Hypoglycemia Protocol Stop: 08/29/23 20:14 Glucagon (Glucagon For Inj 1 Mg Vial) 1 mg SQ UD PRN; Protocol PRN Reason: Hypoglycemia Protocol Stop: 08/29/23 20:14 Glucose (Glucose 10 Tab/Tube) 4 - 8 tab PO UD PRN; Protocol PRN Reason: Hypoglycemia Treatment Stop: 08/29/23 20:14 Glucose (Glucose 40% Gel 15 Gm Tube) 15 - 30 gm PO UD PRN; Protocol PRN Reason: Hypoglycemia Protocol Stop: 08/29/23 20:14 Meropenem 500 mg/ Syringe 10 mls @ 2 mls/min IV Q12H MONIKA; Protocol Stop: 08/10/23 06:14 Last Admin: 07/31/23 06:17 Dose: 2 mls/min Norepinephrine Bitartrate (Levophed/D5w) 4 mg in 250 mls @ 39.33 mls/hr IV .Q6H22M MONIKA; Protocol Stop: 08/30/23 06:44 Last Titration: 07/31/23 13:31 Dose: 0.08 mcg/kg/min, 39.3 mls/hr Vasopressin 20 units/ Sodium (Chloride) 101 mls @ 12.12 mls/hr IV .Q8H20M MONIKA; Protocol Stop: 08/30/23 07:14 Last Admin: 07/31/23 07:21 Dose: 0.04 unit/min, 12.1 mls/hr Parenteral Electrolytes (Plasma-Lyte A Ph 7.4) 1,000 mls @ 125 mls/hr IV .Q8H MONIKA Stop: 08/30/23 07:59 Last Admin: 07/31/23 07:55 Dose: 125 mls/hr Magnesium Sulfate/Dextrose (Magnesium Sulfate / D5w) 1 gm in 100 mls @ 50 mls/hr IV Q2H MONIKA Stop: 07/31/23 14:59 Last Admin: 07/31/23 12:48 Dose: 50 mls/hr Pantoprazole Sodium 40 mg/ (Syringe) 10 mls @ 5 mls/min IV DAILY@1100 [facility] Stop: 08/30/23 10:59 Last Admin: 07/31/23 10:57 Dose: 5 mls/min Insulin Aspart (Insulin Aspart Per Unit Charge) 0 units SC ACHS [facility] Stop: 08/29/23 20:59 Last Admin: 07/31/23 12:45 Dose: 6 units Levothyroxine Sodium (Levothyroxine Sodium 112 Mcg Tablet) 112 mcg PO DAILYBB [facility] Stop: 08/30/23 06:29 Last Admin: 07/31/23 10:57 Dose: 112 mcg Miscellaneous (Carbohydrates For Hypoglycemia ) 15 - 30 gm PO UD PRN PRN Reason: Hypoglycemia Protocol Stop: 08/29/23 20:14 Rosuvastatin Calcium (Rosuvastatin Calcium 10 Mg Tab) 10 mg PO HS MONIKA Stop: 08/29/23 20:59 Last Admin: 07/30/23 21:08 Dose: 10 mg (4) UTI (urinary tract infection) Hematuria presence: with hematuria Urinary tract infection type: site unspecified Qualified Code(s): N39.0 - Urinary tract infection, site not specified; R31.9 - Hematuria, unspecified
[2023-07-31 16:20] LABS: BUN Creatinine Ratio 18.1 (10-20); Calcium 7.5 mg/dl (8.6-10.3); Creatinine Clr Calc Pharmacy 18.4 ml/min; Est GFR (Non-African American) 12.1 ml/min; Potassium 4.4 mmol/L (3.5-5.1)
[2023-07-31 16:31] LABS: INR 2.8 (0.9-1.1); Prothrombin Time 28.3 Seconds (9.0-12.0)
[2023-07-31] MEDS ORDERED: PHARMACY GLYCEMIC MGMT CONSULT PRN (16:36)
[2023-07-31] MEDS: SODIUM BICARB 8.4% INJ 50 MEQ/50 ML SYR IV STA (17:24)
[2023-07-31] MEDS: INSULIN ASPART PER UNIT CHARGE SC ONE (17:25)
[2023-07-31] MEDS: ACETAMINOPHEN 325 MG TAB PO PRN (19:33)
--- NOTE | 2023-07-31 20:32 | Pharmacy Report ---
Pharmacy Glycemic Short Note 2 - Date of Service July 31, 2023 - Glycemic Short BSG Results (Last 24 hours): 07/30/23 07/30/23 07/31/23 20:49 21:20 06:27 Glucose 155 H 132 H POC Glucose 165 H POC Glucose (other) 07/31/23 07/31/23 10:24 15:29 Glucose 324 H* POC Glucose POC Glucose (other) 283 H OUTPATIENT ANTIDIABETIC REGIMEN: * metformin 500 mg qAM, repaglinide 0.5 mg tid, ozempic ASSESSMENT: * 73 year admitted with sepsis/UTI/SAJAN. Pharmacy consulted for glycemic management as BSGs >300 mg/dL this evening. Patient currently on pressors. Diet ordered. Discussed with retail supervisor and okay with utilizing SQ insulin to see how BSGs trending. Could consider insulin drip however if BSGs are persistently elevated. * Gave an additional dose of novolog at dinner. BSGs trending down at HS, still however > 200 therefore will tighten novolog slightly more and add on some longer acting insulin. Plan to be more conservative since SAJAN and limited PO intake noted. PLAN FOR INPATIENT GLYCEMIC CONTROL: * Hold outpatient oral diabetes medications * Basal insulin * Lantus 10 units x 1 now * Bolus insulin * NovoLog per scale ACHS or Q6hrs while NPO * Goal Range: Low 110 mg/dL - High 140 mg/dL * Correction Factor: 15 mg/dL/unit * Nutritional / Prandial insulin per carb ratio of 1 unit per 7 grams CHO consumed
[2023-07-31] MEDS: LANTUS PER UNIT CHARGE SC ONE (20:59)
[2023-08-01] MEDS: INSULIN ASPART PER UNIT CHARGE SC SCH (00:29)
[2023-08-01 04:29] LABS: Basophils # (auto) 0.05 K/uL (0.00-0.20); Basophils % (auto) 0.3 %; Eosinophils % (auto) 1.7 %; Hematocrit (blood only) 30.8 % (37.0-47.0); Hemoglobin 10.1 g/dl (12.0-16.0); Immature Granulocytes % (auto) 0.6 %; Lymphocytes # (auto) 0.62 K/uL (1.20-3.40); Lymphocytes % (auto) 3.5 %; Mean Corpuscular Hemoglobin 28.9 pg (25.0-34.0); Mean Corpuscular Hgb Conc 32.8 g/dL (32.0-36.0); Mean Corpuscular Volume 88.3 fL (80.0-100.0); Mean Platelet Volume 11.4 fL (9.4-12.4); Monocytes # (auto) 0.87 K/uL (0.11-0.59); Monocytes % (auto) 4.9 %; Neutrophils # (auto) 15.75 K/uL (1.40-6.50); Nucleated RBC # (auto) 0.03 K/uL (0.00-0.12); Nucleated RBC % (auto) 0.2 %; Platelet Count 178 K/uL (130-400); RDW Coefficient of Variation 15.4 % (11.5-14.5); RDW Standard Deviation 49.9 fL (36.4-46.3); Red Blood Count 3.49 M/uL (4.20-5.40); White Blood Count 17.69 K/ul (4.8-10.8)
[2023-08-01 04:42] LABS: Albumin Globulin Ratio 0.7 (0.9-2); Albumin Level 2.4 gm/dl (3.4-5.0); BUN Creatinine Ratio 19.5 (10-20); Bilirubin,Total 0.5 mg/dl (0.2-1.0); Calcium 7.6 mg/dl (8.6-10.3); Creatinine Clr Calc Pharmacy 20.2 ml/min; Est GFR (Non-African American) 14.7 ml/min; Globulin 3.3 gm/dl (2.5-4.0); Magnesium 2.4 mg/dl (1.7-2.4); Phosphorus 3.7 mg/dl (2.5-4.9); Potassium 3.8 mmol/L (3.5-5.1); Total Protein 5.7 gm/dl (6.0-8.3)
[2023-08-01] MEDS: POTASSIUM CHLORIDE CRTAB 20 MEQ TABCR PO STA (05:15)
[2023-08-01 05:45] LABS: INR 2.4 (0.9-1.1); Prothrombin Time 24.4 Seconds (9.0-12.0)
--- NOTE | 2023-08-01 07:22 | Critical Care Progress Note ---
Date of Service August 01, 2023 Assessment & Plan (1) (HFpEF) heart failure with preserved ejection fraction: (2) SAJAN (acute kidney injury): (3) Adenovirus infection: (4) Sepsis: (5) PAF (paroxysmal atrial fibrillation): (6) Type II diabetes mellitus: (7) Acute respiratory failure with hypoxia: (8) Shock circulatory: (9) Gout: (10) Sleep apnea: (11) Hypothyroidism: Plan Reason Critically Ill: 73-year-old female presented to the hospital with diarrhea and generalized weakness Past medical history: Diabetes type 2, CKD 3, gout, dyslipidemia, hypothyroidism, EDYTA on CPAP, paroxysmal A-fib on warfarin as well as amiodarone, hypertension, GERD, history of CVA Patient was found to be hypotensive, transferred to ICU for further management. Neuro - [facility] ICU: Negative Patient is awake alert oriented x 3 at the time of examination today Cardiac - -- Septic shock Likely secondary to UTI Random cortisol 54 Continue with vasopressor support to keep MAP greater than 65 -- History of A-fib On amiodarone as well as metoprolol tartrate 50 mg twice daily at home along with warfarin --History of hypertension On metoprolol and lisinopril along with bumetanide Respiratory - -- Acute hypoxic respiratory failure Multifactorial Likely secondary to septic shock Continue with O2 supplementation to keep oxygen saturation between 90-92% GI - -- Keep patient n.p.o. RENAL/LYTES - -- SAJAN Multifactorial, septic shock with obstruction Monitor BUN/creatinine Avoid nephrotoxic medications Strict ins and outs --Hyponatremia Likely from getting D5 water in the norepinephrine Continue to monitor --S/p HAGMA Delta-delta: Less then 1, gap plus nongap Gap is likely from lactic acidosis, for nongap follow-up urine lites ABG 07/31/2023: 7.37/ on 3 L Monitor -- History of gout On allopurinol - -- Nephrolithiasis with mild right hydronephrosis S/p stenting 07/30/2023 Urology on board ENDO - --Hypothyroidism TSH 0.5 Continue levothyroxine --Diabetes type 2 On metformin at home Continue with ICU hypoglycemia protocol HEME - -- Coagulopathy INR 8.3, 2.5 mg of IV vitamin K given -- Normocytic anemia Monitor H&H ID - -- Septic shock with gram-negative bacteremia Follow-up sensitivity and culture Continue with antibiotics Follow-up procalcitonin --Prophylaxis VTE: On warfarin at home GI: Pantoprazole Lines: Left Radial, Right central line Diet: Clear liquids, advance as tolerated Plan: In/out: +3.7 L, urine output 2000 mL Repeat INR is 2.4. Will resume home dose of warfarin Continue with vasopressor support to keep MAP greater than 65. Given the blood culture is growing Enterococcus, okay to continue with daptomycin. DC all IV fluids. If the urine output goes down then I will start her on NS given the hyponatremia and hypochloremia Potassium being replaced Repeat blood cultures later today which will be 48 hours from the initial blood culture I have personally spent 37 minutes of critical care time in the direct management of this patient. This is a life/limb threatening event. This includes time spent evaluating patient, direct bedside care, chart review, placing orders, interpretation of diagnostic studies, discussion with consultants, patient, and family members, as well as other required patient management activities. This time is exclusive of all separately billable procedures, and teaching time and separate from and in addition to any other critical care service time. Admission and Anticipated Discharge Date Admission Date: July 30, 2023 Subjective Patient seen and examined at bedside. No acute distress, no adverse events overnight. Patient was on 0.05 of Levophed with MAP in the high 60s to low 70s. She stated that she is feeling much better compared to yesterday. Denied any nausea vomiting Was able to tolerate clear liquids without any issues. Urine output has picked up Denies any abdominal pain. Review of Systems 2 Review of Systems: All systems reviewed & are unremarkable except as noted in Subjective Physical Exam 2 Physical Exam: Constitutional: No acute distress HEENT: EOMI, PERRLA Respiratory system: Decreased air entry bilaterally, no wheeze, no rhonchi, no crackles CVS: S1-S2 positive, no murmurs or gallops Abdomen: Soft, nontender, nondistended, positive bowel sounds x4, obese Extremities: +1 pulses bilaterally radialis/ dorsalis pedis, no cyanosis, chronic venous stasis appreciated bilaterally with +1 pitting edema Neuro: Awake alert oriented x3 Psych: Normal mood and affect G/U: Positive Joseph Skin: no rashes, warm and dry Lymphatic: no cervical or axillary lymphadenopathy Results & Data Results & Data Vital Signs (Past 12 Hours) Vital Signs Temp Pulse Resp BP Pulse Ox 08/01/23 06:31 73 14 95 08/01/23 06:31 109/47 L 08/01/23 06:00 111/47 L 08/01/23 06:00 73 16 95 08/01/23 05:01 74 21 94 08/01/23 05:01 139/37 L 08/01/23 04:00 131/38 L 08/01/23 04:00 72 14 94 08/01/23 03:46 36.7 C 08/01/23 03:01 75 16 94 08/01/23 03:01 124/35 L 08/01/23 02:00 127/43 L 08/01/23 02:00 72 15 94 08/01/23 01:01 70 08/01/23 01:00 117/55 L 08/01/23 01:00 69 16 93 08/01/23 00:18 36.5 C 08/01/23 00:00 130/39 L 08/01/23 00:00 69 16 93 07/31/23 23:00 75 18 94 07/31/23 22:00 72 17 95 07/31/23 22:00 114/49 L 07/31/23 21:57 36.5 C 07/31/23 21:01 71 16 95 07/31/23 21:01 118/44 L 07/31/23 20:01 74 14 96 07/31/23 20:01 119/45 L 07/31/23 19:37 36.5 C Laboratory Results 08/01/23 04:00 08/01/23 04:00 Coding Level of Care Code 23647 CRITICAL CARE 1ST 30-74M Diagnoses (HFpEF) heart failure with preserved ejection fraction I50.30 SAJAN (acute kidney injury) N17.9 Adenovirus infection B34.0 Sepsis A41.9 PAF (paroxysmal atrial fibrillation) I48.0 Type II diabetes mellitus E11.9 Acute respiratory failure with hypoxia J96.01 Shock circulatory R57.9 Gout M10.9 Sleep apnea G47.30 Hypothyroidism E03.9
--- NOTE | 2023-08-01 08:30 | Electrocardiogram Report ---
Test Reason : Blood Pressure : / mmHG Vent. Rate : 100 BPM Atrial Rate : 100 BPM P-R Int : 168 ms QRS Dur : 082 ms QT Int : 354 ms P-R-T Axes : 039 -33 040 degrees QTc Int : 456 ms Normal sinus rhythm Left axis deviation Anterior infarct (cited on or before 22-APR-2021) Abnormal ECG When compared with ECG of 22-APR-2021 15:59, Questionable change in initial forces of Anterior leads Confirmed by Jonathan Flood [id number] on 08/01/2023 8:29:50 AM Referred By: REFERRED SELF Confirmed By:Jonathan Flood
[2023-08-01] MEDS: LANTUS PER UNIT CHARGE SC ONE (09:14)
[2023-08-01] MEDS: SODIUM CHLORIDE 0.9% 250 ML IV ONE (12:33)
[2023-08-01] MEDS: SODIUM CHLORIDE 0.9% 1,000 ML IV SCH ×2 (12:34→13:26)
--- NOTE | 2023-08-01 12:53 | Hospitalist Progress Note ---
Date of Service August 01, 2023 Assessment & Plan (1) Sepsis: Plan: Secondary to complicated UTI with right ureteral obstruction and hydronephrosis Urine culture and blood cultures are growing gram-negative bacilli-further identification is pending Received 1 dose of ceftriaxone in the ER followed by cefepime and now has been on daptomycin and meropenem Awaiting further identification of the gram-negative bacilli Will continue current antibiotics Clinically improving Blood culture is growing E. coli so far which is pansensitive Urine culture is growing E. coli and probable Enterococcus Await further identification and sensitivities We will continue with intravenous Dapto and ceftriaxone for now Sepsis with hypotension Has been requiring intravenous pressor resents to maintain blood pressure Is transferred to ICU early this morning Appreciate hat lacer input and recommendation Blood pressure has been maintaining around 120s systolic with vasopressor Still requiring intravenous norepinephrine to maintain blood pressure Clinically improved (2) Hydronephrosis with renal and ureteral calculous obstruction: Plan: Patient presenting from home with reports of profuse diarrhea x 3 days. Reports she returned home from a cruise 11 days ago. In the ED, WBC 17 K, mild tachycardia. Afebrile, BP stable. Lactate pending. UA suggestive of UTI. CT ABD/pelvis showing 1.4 x 0.6 cm proximal right ureteral calculus results in mild right hydronephrosis with perinephric stranding. S/p ceftriaxone in the ED, given history of Pseudomonas, will continue with cefepime. Check MRSA nasal swab and if positive will add daptomycin (in favor of Vanco given SAJAN) Urology contacted by ED, planning on cystoscopy this evening Status post cystoscopy, retrograde pyelogram, aspiration and right ureteral stent placement by Dr. Edwards on 07/30/2023 at 6:30 PM (3) SAJAN (acute kidney injury): Plan: Has had diarrhea prior to presentation with the dehydration SAJAN is complicated by sepsis Has been getting intravenous fluid Urine output was was noted to be low this morning Creatinine improved a little bit yesterday but again worse this morning Expected to improve if there is no improvement will need nephrology evaluation Has been going through diuretic phase of SAJAN-urine output 2000 mL last 24 hours Will continue with intravenous fluid and monitor PRP (4) UTI (urinary tract infection): Plan: As above (5) Adenovirus infection: Plan: Complicating sepsis (6) Diarrhea: Plan: Bio fire positive for adenovirus Will also check stool studies and C. difficile Continue supportive care Diarrhea seems to be under control (7) CKD (chronic kidney disease), stage III: Plan: Creatinine 4.2, baseline ~1.1 Secondary to dehydration from severe diarrhea and also obstructing renal calculi IVF, follow renal functions Nephrology consult if not improving (8) PAF (paroxysmal atrial fibrillation): Plan: Rhythm controlled on amiodarone, rate controlled on metoprolol Anticoagulated on Coumadin, (9) (HFpEF) heart failure with preserved ejection fraction: Plan: Echo 01/2023-EF 55 to 59%, moderate aortic stenosis, mild tricuspid regurgitation Volume status acceptable, holding diuretics due to SAJAN/sepsis, resume as able (10) Type II diabetes mellitus: Plan: Hgb A1c 6.3 07/2023 Hold oral agents and Ozempic and utilize NovoLog per protocol while hospitalized (11) Gout: Plan: Hold allopurinol for now due to SAJAN (12) HTN (hypertension): Plan: Continue metoprolol, holding lisinopril and amlodipine due to sepsis/SAJAN, resume as able (13) Hypothyroid: Plan: Chronic, stable Continue levothyroxine (14) Sleep apnea: Plan: CPAP as per home settings DVT PROPHYLAXIS On Coumadin, SCDs when INR <2.0 INR remains supratherapeutic secondary to sepsis Received 2.5 mg of phytonadione No evidence of bleeding Coumadin has been restarted CODE STATUS Full Admission and Anticipated Discharge Date Admission Date: July 30, 2023 Subjective 07/31/2023 The patient was seen and examined in ICU She was moved to ICU early this morning with hypotension secondary to sepsis She has been feeling a little better and complains to weakness Denies any chest pain, palpitation, any abdominal pain, nausea and or vomiting 08/01/2023 The patient was seen and examined in ICU She has been feeling much better today but is still on intravenous pressors to maintain blood pressure She has been making out enough urine Denies any abdominal pain, chest pain or shortness of breath Review of Systems Review of Systems: All systems reviewed and are unremarkable except as noted below Physical Exam Physical Exam: Lying in bed without any apparent distress Constitutional: well developed, well nourished, + ill appearing and + obese Eyes: PERRL, conjunctivae normal, anicteric sclerae ENMT: external ear and nose normal, oropharynx normal Neck: trachea midline, no thyromegaly Respiratory: no respiratory distress Auscultation: + diminished lung sounds and + crackles (Minimal crackles at the bases) Cardiovascular: Rate/Rhythm: regular rate and regular rhythm; not tachycardic Heart Sounds: normal S1 and normal S2; no murmur Extremities: no edema (Chronic bilateral skin changes in the legs) Gastrointestinal (Abdomen): Inspection/Auscultation: normal bowel sounds; abdomen not distended Percussion/Palpation: abdomen soft; abdomen nontender Musculoskeletal: No acute arthritis involving any of the joint Neurologic: normal touch/pain/proprioception and moves all extremities (Generally weak and lethargic) Lymphatic: no cervical or axillary lymphadenopathy Results & Data Results & Data Vital Signs (Past 12 Hours) Vital Signs Temp Pulse Resp BP BP Pulse Ox O2 Del Method 08/01/23 12:31 103/43 L 08/01/23 12:06 90/43 L 08/01/23 12:00 76 94/58 L 08/01/23 11:14 99/40 L 08/01/23 11:01 94/58 L 08/01/23 11:01 76 20 93 08/01/23 10:30 77 19 93 08/01/23 10:01 100/47 L 08/01/23 10:01 70 16 93 08/01/23 10:00 96/42 L 08/01/23 09:01 77 19 92 08/01/23 09:01 88/46 L 08/01/23 08:44 102/48 L 08/01/23 08:40 Nasal Cannula 08/01/23 08:30 24 91 08/01/23 08:19 120/59 L 08/01/23 08:01 77 19 94 08/01/23 08:01 105/56 L 08/01/23 08:00 79 20 94 08/01/23 08:00 73 08/01/23 08:00 73 109/47 L 08/01/23 07:35 118/55 L 08/01/23 07:00 70 17 95 Nasal Cannula 08/01/23 07:00 110/56 L 08/01/23 06:31 73 14 95 08/01/23 06:31 109/47 L 08/01/23 06:00 111/47 L 08/01/23 06:00 73 16 95 08/01/23 05:01 74 21 94 08/01/23 05:01 139/37 L 08/01/23 04:00 131/38 L 08/01/23 04:00 72 14 94 08/01/23 03:46 36.7 C 08/01/23 03:01 75 16 94 08/01/23 03:01 124/35 L 08/01/23 02:00 127/43 L 08/01/23 02:00 72 15 94 08/01/23 01:01 70 08/01/23 01:00 117/55 L 08/01/23 01:00 69 16 93 O2 Flow Rate 08/01/23 12:31 08/01/23 12:06 08/01/23 12:00 08/01/23 11:14 08/01/23 11:01 08/01/23 11:01 08/01/23 10:30 08/01/23 10:01 08/01/23 10:01 08/01/23 10:00 08/01/23 09:01 08/01/23 09:01 08/01/23 08:44 08/01/23 08:40 2 08/01/23 08:30 08/01/23 08:19 08/01/23 08:01 08/01/23 08:01 08/01/23 08:00 08/01/23 08:00 08/01/23 08:00 08/01/23 07:35 08/01/23 07:00 2 08/01/23 07:00 08/01/23 06:31 08/01/23 06:31 08/01/23 06:00 08/01/23 06:00 08/01/23 05:01 08/01/23 05:01 08/01/23 04:00 08/01/23 04:00 08/01/23 03:46 08/01/23 03:01 08/01/23 03:01 08/01/23 02:00 08/01/23 02:00 08/01/23 01:01 08/01/23 01:00 08/01/23 01:00 Laboratory Results Short CBC 08/01/23 Range/Units 04:00 WBC 17.69 H (4.8-10.8) K/ul Hgb 10.1 L (12.0-16.0) g/dl Hct 30.8 L (37.0-47.0) % Plt Count 178 (130-400) K/uL BMP 07/31/23 08/01/23 15:29 04:00 Sodium 125 L 129 L Potassium 4.4 3.8 Chloride 97 L 100 Carbon Dioxide 15 L 19 L BUN 64 H 59 H Creatinine 3.54 H D 3.02 H D Glucose 324 H* 184 H Calcium 7.5 L 7.6 L Liver Function 08/01/23 Range/Units 04:00 Total Bilirubin 0.5 (0.2-1.0) mg/dl AST 86 H (13-39) U/L ALT 93 H (7-52) U/L Alkaline Phosphatase 127 H (34-104) U/L Albumin 2.4 L (3.4-5.0) gm/dl Medications Administered Current Inpatient Medications Acetaminophen (Acetaminophen 325 Mg Tab) 650 mg PO Q4H PRN PRN Reason: mild pain or fever Stop: 08/30/23 19:12 Last Admin: 08/01/23 08:12 Dose: 650 mg Dextrose (Dextrose 50% 50 Ml Syringe) 25 - 50 ml IV UD PRN; Protocol PRN Reason: Hypoglycemia Protocol Stop: 08/29/23 20:14 Glucagon (Glucagon For Inj 1 Mg Vial) 1 mg SQ UD PRN; Protocol PRN Reason: Hypoglycemia Protocol Stop: 08/29/23 20:14 Glucose (Glucose 10 Tab/Tube) 4 - 8 tab PO UD PRN; Protocol PRN Reason: Hypoglycemia Treatment Stop: 08/29/23 20:14 Glucose (Glucose 40% Gel 15 Gm Tube) 15 - 30 gm PO UD PRN; Protocol PRN Reason: Hypoglycemia Protocol Stop: 08/29/23 20:14 Daptomycin 450 mg/ Syringe 9 mls @ 4.5 mls/min IV Q48H MONIKA; Protocol Stop: 08/02/23 06:01 Last Admin: 07/31/23 06:08 Dose: 4.5 mls/min Norepinephrine Bitartrate (Levophed/D5w) 4 mg in 250 mls @ 63.911 mls/hr IV .Q3H55M MONIKA; Protocol Stop: 08/30/23 06:44 Last Titration: 08/01/23 12:31 Dose: 0.13 mcg/kg/min, 63.9 mls/hr Pantoprazole Sodium 40 mg/ (Syringe) 10 mls @ 5 mls/min IV DAILY@1100 [facility] Stop: 08/30/23 10:59 Last Admin: 08/01/23 11:01 Dose: 5 mls/min Ceftriaxone Sodium 2,000 mg/ (Dextrose) 50 mls @ 100 mls/hr IV Q24H [facility] Stop: 08/13/23 16:59 Sodium Chloride (Nss) 1,000 mls @ 100 mls/hr IV .Q10H [facility]IK[facility] Stop: 08/31/23 12:29 Last Admin: 08/01/23 12:34 Dose: 100 mls/hr Insulin Aspart (Insulin Aspart Per Unit Charge) 0 units SC ACHS MONIKA Stop: 08/29/23 20:59 Last Admin: 08/01/23 12:32 Dose: 5 units Insulin Aspart (Insulin Aspart Per Unit Charge) 0 units SC 0000,0400 [facility] Stop: 08/31/23 00:00 Last Admin: 08/01/23 04:24 Dose: 4 units Levothyroxine Sodium (Levothyroxine Sodium 112 Mcg Tablet) 112 mcg PO DAILYBB [facility]IK[facility] Stop: 08/30/23 06:29 Last Admin: 08/01/23 05:16 Dose: 112 mcg Miscellaneous (Carbohydrates For Hypoglycemia ) 15 - 30 gm PO UD PRN PRN Reason: Hypoglycemia Protocol Stop: 08/29/23 20:14 Miscellaneous Information (Pharmacy Glycemic Mgmt Consult) 1 each N/A UD PRN; Protocol PRN Reason: Consult Stop: 08/30/23 16:35 Rosuvastatin Calcium (Rosuvastatin Calcium 10 Mg Tab) 10 mg PO HS MONIKA Stop: 08/29/23 20:59 Last Admin: 07/30/23 21:08 Dose: 10 mg Warfarin Sodium (Warfarin Sod 2.5 Mg Tab) 2.5 mg PO DAILY@1600 [facility] Stop: 08/31/23 15:59 (4) UTI (urinary tract infection) Hematuria presence: with hematuria Urinary tract infection type: site unspecified Qualified Code(s): N39.0 - Urinary tract infection, site not specified; R31.9 - Hematuria, unspecified
--- NOTE | 2023-08-01 14:34 | Urology Progress Note ---
Date of Service August 01, 2023 Assessment & Plan (1) Kidney stones: (2) SAJAN (acute kidney injury): (3) Adenoviral infection: (4) Shock circulatory: (5) Acute respiratory failure with hypoxia: (6) Diarrhea: (7) (HFpEF) heart failure with preserved ejection fraction: (8) SAJAN (acute kidney injury): (9) Adenovirus infection: (10) Sepsis: Plan Patient postop day 2 status post stent. Remains in the ICU due to severe infection and need for close monitoring. Is undergoing broad-spectrum antibiotics close monitoring. Labs have slowly been improving. Significant SAJAN has improved somewhat down to creatinine to 3.02. White cells are still elevated at 17.69. Patient is being monitored closely. Has critical care team as well as hospitalist managing multiple medical issues. Continue with plan supportive care continue with IV hydration and close monitoring. Will maintain drainage. Will need to consider possible stone treatment once patient has resolved issues. Has 2 active infections with the severely obstructing stone leading to bacteremia and the significant viral infection causing major GI disorder. Reviewed extensively different options. Will plan to continue to monitor closely. May consider treating stone in the next 1 to 2 weeks especially patient requires a prolonged hospitalization in order to fully treat the concurrent infections. Admission and Anticipated Discharge Date Admission Date: July 30, 2023 Subjective Postop from stent placement for obstruction issues. Patient had developed sepsis. Was also having a considerable GI viral infection with severe diarrhea and nausea. Patient was found to have rigors and was increasing in severity. Had undergone stent placement due to large obstructing stone. Has known history of severe stone disease with major episode sepsis. Developed hypotension and was placed in the ICU for close monitoring. Patient has slowly been recovering. Has been working on decreasing oxygen need. Was on pressors due to hypotension. Patient is undergoing broad-spectrum antibiotics. Is awaiting the full cultures. Urine aspiration was taken from the kidney. PCR had been positive from the blood cultures. Catheter has been left in place. Patient has been tolerating well. Has noticed some frequency and urgency. Has not had severe pain in the back and flank. Does have occasional burning and irritation. No severe episodes or major changes. No new nausea or vomiting. Had tolerated anesthesia without major problems Review of Systems Review of Systems: All systems reviewed & are unremarkable except as noted in HPI & below Physical Exam Physical Exam: General: Alert in no acute distress. Obese. Acute illness. HEENT: Normocephalic Atraumatic. Inspection normal. Cranial Nerves 2-12 Gross ly intact. Normal inspection of face. Normal inspection of neck. Psychologic: Normal affect. Respiratory: Nonlabored. No use of accessory muscles. No tachypnea or dyspnea. Cardiovascular: No tachycardia Skin: [place] and Dry. No rashes or visible lesions. Extremities/Lymphatics: No edema Abdomen: Soft Non-distended. No rebound or guarding. Results & Data Vital Signs (Past 12 Hours) Vital Signs Temp Pulse Resp BP BP Pulse Ox O2 Del Method 08/01/23 12:31 103/43 L 08/01/23 12:06 90/43 L 08/01/23 12:00 76 94/58 L 08/01/23 11:14 99/40 L 08/01/23 11:01 94/58 L 08/01/23 11:01 76 20 93 08/01/23 10:30 77 19 93 08/01/23 10:01 100/47 L 08/01/23 10:01 70 16 93 08/01/23 10:00 96/42 L 08/01/23 09:01 77 19 92 08/01/23 09:01 88/46 L 08/01/23 08:44 102/48 L 08/01/23 08:40 Nasal Cannula 08/01/23 08:30 24 91 08/01/23 08:19 120/59 L 08/01/23 08:01 77 19 94 08/01/23 08:01 105/56 L 08/01/23 08:00 79 20 94 08/01/23 08:00 73 08/01/23 08:00 73 109/47 L 08/01/23 07:35 118/55 L 08/01/23 07:00 70 17 95 Nasal Cannula 08/01/23 07:00 110/56 L 08/01/23 06:31 73 14 95 08/01/23 06:31 109/47 L 08/01/23 06:00 111/47 L 08/01/23 06:00 73 16 95 08/01/23 05:01 74 21 94 08/01/23 05:01 139/37 L 08/01/23 04:00 131/38 L 08/01/23 04:00 72 14 94 08/01/23 03:46 36.7 C 08/01/23 03:01 75 16 94 08/01/23 03:01 124/35 L O2 Flow Rate 08/01/23 12:31 08/01/23 12:06 08/01/23 12:00 08/01/23 11:14 08/01/23 11:01 08/01/23 11:01 08/01/23 10:30 08/01/23 10:01 08/01/23 10:01 08/01/23 10:00 08/01/23 09:01 08/01/23 09:01 08/01/23 08:44 08/01/23 08:40 2 08/01/23 08:30 08/01/23 08:19 08/01/23 08:01 08/01/23 08:01 08/01/23 08:00 08/01/23 08:00 08/01/23 08:00 08/01/23 07:35 08/01/23 07:00 2 08/01/23 07:00 08/01/23 06:31 08/01/23 06:31 08/01/23 06:00 08/01/23 06:00 08/01/23 05:01 08/01/23 05:01 08/01/23 04:00 08/01/23 04:00 08/01/23 03:46 08/01/23 03:01 08/01/23 03:01 PG Care Time/CCT Total # of Minutes Spent Total Time Spent with Patient: Total time spent is greater than 50% in coordination of care (as documented) at patient's floor/unit and/or counseling patient: Coding Level of Care Code 09594 SUB INP/OBS CARE 3/50MIN Diagnoses Kidney stones N20.0 SAAJN (acute kidney injury) N17.9 Adenoviral infection B34.0 Shock circulatory R57.9 Acute respiratory failure with hypoxia J96.01 Diarrhea R19.7 (HFpEF) heart failure with preserved ejection fraction I50.30 Sepsis A41.9
[2023-08-01 15:00] LABS: BUN Creatinine Ratio 19.3 (10-20); Calcium 7.8 mg/dl (8.6-10.3); Creatinine Clr Calc Pharmacy 21.8 ml/min; Est GFR (African American) 18.6 ml/min; Est GFR (Non-African American) 16.1 ml/min; Potassium 4.3 mmol/L (3.5-5.1)
[2023-08-01] MEDS: WARFARIN SOD 2.5 MG TAB PO SCH (17:35)
[2023-08-01] MEDS: cefTRIAXone SODIUM 2,000 MG in DEXTROSE 5 % MINI-B 50 ML IV SCH (17:37)
[2023-08-01] MEDS: METOPROLOL TARTRATE 1 MG/ML VIAL IV STA (20:04)
[2023-08-01] MEDS ORDERED: 0.2 MICRON FILTER SET 1 EACH IV ONE (20:04)
--- NOTE | 2023-08-01 20:10 | Communication Note ---
Date of Service: August 01, 2023 S: Patient with increasing ventricular and atrial ectopy. She does have history of Afib and is on Amiodarone and Metoprolol at home, these have been held secondary to her vasopressor requirements. O: No change in exam and patient denies any chest pain or feelings of palpitations. Rates with atrial ectopy around 124, bigeminy unifocal for the most part. This is likely her afib breaking through at this time will treat as below A/P - CVL withdrawn 2 cm to 17cm- as depth seemed to have moved with dressing change earlier and was at 19cm. - This did not have change in ectopy and she is able to break with coughing - Will provide Metoprolol 5mg IV now - Will place on Amiodarone infusion without bolus - if continues or unable to break will re-bolus - BMP and Mg now- replete for K ~ 4.0 and MG ~ 2.0 Sergey POLLARD ([facility]-)
[2023-08-01] MEDS: AMIODARONE / D5W 360 MG/200 ML BAG IV ONE (20:19)
[2023-08-01] MEDS: LANTUS PER UNIT CHARGE SC SCH (21:05)
[2023-08-01] MEDS ORDERED: STAT IV Infusion **Titration per Protocol STA (21:22)
[2023-08-01] MEDS: PHENYLEPHRINE/NSS 25 MG/250 ML BAG IV SCH (21:30)
[2023-08-01 21:34] LABS: BUN Creatinine Ratio 19.6 (10-20); Calcium 7.8 mg/dl (8.6-10.3); Creatinine Clr Calc Pharmacy 24.4 ml/min; Est GFR (African American) 21.4 ml/min; Est GFR (Non-African American) 18.4 ml/min; Magnesium 2.2 mg/dl (1.7-2.4); Potassium 4.2 mmol/L (3.5-5.1)
[2023-08-02] MEDS: AMIODARONE / D5W 360 MG/200 ML BAG IV SCH (02:17)
[2023-08-02 05:20] LABS: BUN Creatinine Ratio 20.9 (10-20); Calcium 7.8 mg/dl (8.6-10.3); Creatinine Clr Calc Pharmacy 26.5 ml/min; Est GFR (African American) 23.6 ml/min; Est GFR (Non-African American) 20.4 ml/min; Magnesium 2.1 mg/dl (1.7-2.4); Potassium 4.1 mmol/L (3.5-5.1)
[2023-08-02 05:26] LABS: INR 3.4 (0.9-1.1); Prothrombin Time 34.5 Seconds (9.0-12.0)
[2023-08-02 05:55] LABS: Basophils # (auto) 0.04 K/uL (0.00-0.20); Basophils % (auto) 0.3 %; Eosinophils # (auto) 0.04 K/uL (0.00-0.50); Eosinophils % (auto) 0.3 %; Hematocrit (blood only) 29.6 % (37.0-47.0); Hemoglobin 10.1 g/dl (12.0-16.0); Immature Granulocytes # (auto) 0.37 K/uL (0.01-0.20); Immature Granulocytes % (auto) 2.7 %; Lymphocytes % (auto) 5.2 %; Mean Corpuscular Hemoglobin 29.7 pg (25.0-34.0); Mean Corpuscular Hgb Conc 34.1 g/dL (32.0-36.0); Mean Corpuscular Volume 87.1 fL (80.0-100.0); Mean Platelet Volume 12.2 fL (9.4-12.4); Monocytes # (auto) 0.92 K/uL (0.11-0.59); Monocytes % (auto) 6.8 %; Neutrophils # (auto) 11.49 K/uL (1.40-6.50); Neutrophils % (auto) 84.7 %; Platelet Count 106 K/uL (130-400); RDW Coefficient of Variation 15.4 % (11.5-14.5); RDW Standard Deviation 49.1 fL (36.4-46.3); White Blood Count 13.56 K/ul (4.8-10.8)
--- NOTE | 2023-08-02 09:38 | Critical Care Progress Note ---
Date of Service August 02, 2023 Assessment & Plan (1) (HFpEF) heart failure with preserved ejection fraction: (2) SAJAN (acute kidney injury): (3) Adenovirus infection: (4) Sepsis: (5) PAF (paroxysmal atrial fibrillation): (6) Type II diabetes mellitus: (7) Acute respiratory failure with hypoxia: (8) Shock circulatory: (9) Gout: (10) Sleep apnea: (11) Hypothyroidism: Plan Reason Critically Ill: 73-year-old female presented to the hospital with diarrhea and generalized weakness Past medical history: Diabetes type 2, CKD 3, gout, dyslipidemia, hypothyroidism, EDYTA on CPAP, paroxysmal A-fib on warfarin as well as amiodarone, hypertension, GERD, history of CVA Patient was found to be hypotensive, transferred to ICU for further management. Neuro - [facility] ICU: Negative Patient is awake alert oriented x 3 at the time of examination today Cardiac - -- Septic shock Likely secondary to UTI Off vasopressors this am -- History of A-fib On amiodarone as well as metoprolol tartrate 50 mg twice daily at home along with warfarin --History of hypertension On metoprolol and lisinopril along with bumetanide Respiratory - -- Acute hypoxic respiratory failure Multifactorial Likely secondary to septic shock Continue with O2 supplementation to keep oxygen saturation between 90-92% GI - --Advance diet as tolerated RENAL/LYTES - -- SAJAN Resolving --Hyponatremia Likely from getting D5 water in the norepinephrine Continue to monitor -- History of gout On allopurinol - -- Nephrolithiasis with mild right hydronephrosis S/p stenting 07/30/2023 Urology on board ENDO - --Hypothyroidism TSH 0.5 Continue levothyroxine --Diabetes type 2 On metformin at home Continue with ICU hypoglycemia protocol HEME - -- Normocytic anemia Monitor H&H ID - -- Septic shock with VRE enteroccous --Ecoli -proteus Continue broad-spectrum antibiotics. Consider ID consult. Follow-up procalcitonin --Prophylaxis VTE: On warfarin at home, on hold GI: Pantoprazole Lines: Left Radial, Right central line Diet: Clear liquids, advance as tolerated Patient stable for downgrade out of the ICU Admission and Anticipated Discharge Date Admission Date: July 30, 2023 Subjective No issues currently. Off phenyepherine. Review of Systems Review of Systems: All systems reviewed & are unremarkable except as noted in HPI & below Physical Exam Physical Exam: Constitutional: No acute distress HEENT: EOMI, PERRLA Respiratory system: Decreased air entry bilaterally, no wheeze, no rhonchi, no crackles CVS: S1-S2 positive, no murmurs or gallops Abdomen: Soft, nontender, nondistended, positive bowel sounds x4, obese Extremities: +1 pulses bilaterally radialis/ dorsalis pedis, no cyanosis, chronic venous stasis appreciated bilaterally with +1 pitting edema Neuro: Awake alert oriented x3 Psych: Normal mood and affect G/U: Positive Joseph Skin: no rashes, warm and dry Lymphatic: no cervical or axillary lymphadenopathy Results & Data Results & Data Vital Signs (Past 12 Hours) Vital Signs Temp Pulse Resp BP Pulse Ox O2 Del Method O2 Flow Rate 08/02/23 04:00 76 129/51 L 08/02/23 03:00 73 17 93 Nasal Cannula 2 08/02/23 02:30 73 19 93 Nasal Cannula 2 08/02/23 02:00 75 19 93 08/02/23 02:00 123/54 L 08/02/23 01:30 75 20 92 08/02/23 01:00 77 21 92 Nasal Cannula 2 08/02/23 00:30 81 23 93 08/02/23 00:02 130/66 08/02/23 00:02 130/66 08/02/23 00:02 82 24 92 Nasal Cannula 2 08/02/23 00:00 83 20 92 Nasal Cannula 2 08/02/23 00:00 81 115/47 L 08/01/23 23:45 82 20 92 Nasal Cannula 2 08/01/23 23:31 119/83 08/01/23 23:31 90 18 92 08/01/23 23:30 88 21 92 Nasal Cannula 2 08/01/23 23:15 86 21 92 08/01/23 23:01 89 18 93 08/01/23 23:01 136/59 L 08/01/23 23:00 84 19 93 Nasal Cannula 2 08/01/23 22:45 87 16 92 08/01/23 22:30 85 20 93 Nasal Cannula 2 08/01/23 22:30 124/62 08/01/23 22:15 89 20 92 08/01/23 22:01 87 19 93 Nasal Cannula 2 08/01/23 22:01 123/57 L 08/01/23 22:00 37.0 C 08/01/23 22:00 92 H 22 93 08/01/23 21:45 88 21 92 08/01/23 21:43 89 20 92 Nasal Cannula 2 08/01/23 21:43 118/47 L Coding Level of Care Code 47033 SUB INP/OBS CARE 2/35MIN Diagnoses (HFpEF) heart failure with preserved ejection fraction I50.30 SAJAN (acute kidney injury) N17.9 Adenovirus infection B34.0 Sepsis A41.9 PAF (paroxysmal atrial fibrillation) I48.0 Type II diabetes mellitus E11.9 Acute respiratory failure with hypoxia J96.01 Shock circulatory R57.9 Gout M10.9 Sleep apnea G47.30 Hypothyroidism E03.9
--- NOTE | 2023-08-02 12:40 | Urology Progress Note ---
Date of Service August 02, 2023 Assessment & Plan (1) Sepsis: (2) SAJAN (acute kidney injury): (3) UTI (urinary tract infection): (4) Hydronephrosis with renal and ureteral calculous obstruction: Plan - POD #3 s/p right ureteral stent placement. - Remains in the ICU due to severe infection and need for close monitoring. Now off vasopressors. - Afebrile, labs reviewed - WBC 13.56, Hemoglobin 10.1, Creatinine downtrending 2.30. Continue to trend. - UCx 07/29 grew E.coli. Urine kidney aspirate grew E.coli, Enterococcus VRE, Proteus. Repeat UCx grew E.coli and Enterococcus VRE. - Blood cultures 07/29 prelim E.coli. - Joseph draining clear yellow urine. - Continue supportive care. - Continue antibiotics and tailor as culture data becomes available. - Maintain Joseph catheter for maximum decompression. - Will need stone treatment after acute issues/infection have resolved. May consider treating stone in next 1-2 weeks especially if patient requires prolonged hospitalization. - Urology will follow peripherally. Plan of care reviewed with Dr. Edwards, on-call urologist. Admission and Anticipated Discharge Date Admission Date: July 30, 2023 Subjective Pt examined at bedside in the ICU. Awake, resting in bed on arrival. No acute distress. Joseph draining clear yellow urine. Off vasopressors. Review of Systems Constitutional: as per Subjective / HPI Genitourinary: as per Subjective / HPI Physical Exam Constitutional: + ill appearing; no acute distress Respiratory: no respiratory distress and no labored breathing Neurologic: awake Psychiatric: Orientation: alert and oriented x 3 Genitourinary: Joseph intact Results & Data Vital Signs (Past 12 Hours) Vital Signs Temp Pulse Resp BP Pulse Ox O2 Del Method O2 Flow Rate 08/02/23 11:00 89 20 93 08/02/23 11:00 36.8 C 08/02/23 10:00 90 24 93 08/02/23 09:00 87 24 98 08/02/23 08:01 121/77 08/02/23 08:01 81 21 96 08/02/23 08:00 81 14 96 08/02/23 08:00 76 129/51 L 08/02/23 07:00 75 19 95 08/02/23 06:01 118/57 L 08/02/23 06:01 75 17 96 08/02/23 06:00 73 17 96 08/02/23 05:00 74 18 93 08/02/23 04:00 144/69 H 08/02/23 04:00 77 16 94 08/02/23 04:00 76 129/51 L 08/02/23 03:00 73 17 93 Nasal Cannula 2 08/02/23 02:30 73 19 93 Nasal Cannula 2 08/02/23 02:00 75 19 93 08/02/23 02:00 123/54 L 08/02/23 01:30 75 20 92 08/02/23 01:00 77 21 92 Nasal Cannula 2 08/02/23 00:30 81 23 93 PG Care Time/CCT Total # of Minutes Spent Total Time Spent with Patient: Total time spent is greater than 50% in coordination of care (as documented) at patient's floor/unit and/or counseling patient: Coding Level of Care Code 21939 SUB INP/OBS CARE 235MIN Diagnoses Sepsis A41.9 SAJAN (acute kidney injury) N17.9 UTI (urinary tract infection) N39.0; R31.9 Hematuria presence: with hematuria Urinary tract infection type: site unspecified Hydronephrosis with renal and ureteral calculous obstruction N13.2 (3) UTI (urinary tract infection) Hematuria presence: with hematuria Urinary tract infection type: site unspecified Qualified Code(s): N39.0 - Urinary tract infection, site not specified; R31.9 - Hematuria, unspecified
--- NOTE | 2023-08-02 12:49 | Pharmacy Report ---
Pharmacy Glycemic Short Note 2 - Date of Service August 02, 2023 - Glycemic Short BSG Results (Last 24 hours): 08/01/23 08/01/23 08/01/23 14:10 15:33 19:48 Glucose 224 H POC Glucose POC Glucose (other) 205 H 151 H 08/01/23 08/01/23 08/02/23 20:35 23:47 04:30 Glucose 152 H 95 POC Glucose POC Glucose (other) 105 H 08/02/23 08/02/23 06:42 10:55 Glucose POC Glucose 115 H POC Glucose (other) 95 OUTPATIENT ANTIDIABETIC REGIMEN: * metformin 500 mg qAM, repaglinide 0.5 mg tid, ozempic ASSESSMENT: 08/01 * BSGs acceptable over last 24 hours * Amiodarone gttmixed in D5W continues; pressors weaned off * Fasting BSG 95 this AM with 15 units basal on board - will continue to scale dose to lessen risk of hypoglycemia * Post-prandial BSGs at goal 2 of 3 yesterday - will lessen Novolog doses PLAN FOR INPATIENT GLYCEMIC CONTROL: * Hold outpatient oral diabetes medications * Basal insulin * Lantus SQ BID per scaled dosin units if BSG less than 140, 5 units if BSG 140-180, 10 units if BSG above 180 * Bolus insulin * NovoLog per scale ACHS or Q6hrs while NPO * Goal Range: Low 110 mg/dL - High 140 mg/dL * Correction Factor: 25 mg/dL/unit * Nutritional / Prandial insulin per carb ratio of 1 unit per 8 grams CHO consumed
[2023-08-02] MEDS: PANTOprazole 40 MG TAB PO SCH (12:55)
--- NOTE | 2023-08-02 13:06 | Hospitalist Progress Note ---
Date of Service August 02, 2023 Assessment & Plan (1) Sepsis: Plan: Secondary to complicated UTI with right ureteral obstruction and hydronephrosis Urine culture and blood cultures are growing gram-negative bacilli-further identification is pending Received 1 dose of ceftriaxone in the ER followed by cefepime and now has been on daptomycin and meropenem Awaiting further identification of the gram-negative bacilli Will continue current antibiotics Clinically improving Blood culture is growing E. coli so far which is pansensitive Urine culture is growing E. coli and probable Enterococcus Await further identification and sensitivities We will continue with intravenous Dapto and ceftriaxone for now Blood culture is growing VRE Clinically better and will get ID recommendation Sepsis with hypotension Has been requiring intravenous pressor resents to maintain blood pressure Is transferred to ICU early this morning Appreciate try on baster input and recommendation Blood pressure has been maintaining around 120s systolic with vasopressor Still requiring intravenous norepinephrine to maintain blood pressure Will try to wean off pressor resents (2) Hydronephrosis with renal and ureteral calculous obstruction: Plan: Patient presenting from home with reports of profuse diarrhea x 3 days. Reports she returned home from a cruise 11 days ago. In the ED, WBC 17 K, mild tachycardia. Afebrile, BP stable. Lactate pending. UA suggestive of UTI. CT ABD/pelvis showing 1.4 x 0.6 cm proximal right ureteral calculus results in mild right hydronephrosis with perinephric stranding. S/p ceftriaxone in the ED, given history of Pseudomonas, will continue with cefepime. Check MRSA nasal swab and if positive will add daptomycin (in favor of Vanco given SAJAN) Urology contacted by ED, planning on cystoscopy this evening Status post cystoscopy, retrograde pyelogram, aspiration and right ureteral stent placement by Dr. Edwards on 07/30/2023 at 6:30 PM Appreciate urology follow-up and further recommendation (3) SAJAN (acute kidney injury): Plan: Has had diarrhea prior to presentation with the dehydration SAJAN is complicated by sepsis Has been getting intravenous fluid Urine output was was noted to be low this morning Creatinine improved a little bit yesterday but again worse this morning Expected to improve if there is no improvement will need nephrology evaluation Has been going through diuretic phase of SAJAN-urine output 2000 mL last 24 hours Will continue with intravenous fluid and monitor PRP Kidney function is improved at 48/2.30 Advised to drink more fluid and will monitor PRP (4) UTI (urinary tract infection): Plan: As above (5) Adenovirus infection: Plan: Complicating sepsis (6) Diarrhea: Plan: Bio fire positive for adenovirus Will also check stool studies and C. difficile Continue supportive care Diarrhea seems to be under control (7) CKD (chronic kidney disease), stage III: Plan: Creatinine 4.2, baseline ~1.1 Secondary to dehydration from severe diarrhea and also obstructing renal calculi IVF, follow renal functions Nephrology consult if not improving (8) PAF (paroxysmal atrial fibrillation): Plan: Rhythm controlled on amiodarone, rate controlled on metoprolol Anticoagulated on Coumadin, (9) (HFpEF) heart failure with preserved ejection fraction: Plan: Echo 01/2023-EF 55 to 59%, moderate aortic stenosis, mild tricuspid regurgitation Volume status acceptable, holding diuretics due to SAJAN/sepsis, resume as able (10) Type II diabetes mellitus: Plan: Hgb A1c 6.3 07/2023 Hold oral agents and Ozempic and utilize NovoLog per protocol while hospitalized (11) Gout: Plan: Hold allopurinol for now due to SAJAN (12) HTN (hypertension): Plan: Continue metoprolol, holding lisinopril and amlodipine due to sepsis/SAJAN, resume as able (13) Hypothyroid: Plan: Chronic, stable Continue levothyroxine (14) Sleep apnea: Plan: CPAP as per home settings DVT PROPHYLAXIS On Coumadin, SCDs when INR <2.0 INR remains supratherapeutic secondary to sepsis Received 2.5 mg of phytonadione No evidence of bleeding Coumadin has been restarted-INR is 3.4 as of 08/02/2023 CODE STATUS Full Admission and Anticipated Discharge Date Admission Date: July 30, 2023 Subjective 07/31/2023 The patient was seen and examined in ICU She was moved to ICU early this morning with hypotension secondary to sepsis She has been feeling a little better and complains to weakness Denies any chest pain, palpitation, any abdominal pain, nausea and or vomiting 08/01/2023 The patient was seen and examined in ICU She has been feeling much better today but is still on intravenous pressors to maintain blood pressure She has been making out enough urine Denies any abdominal pain, chest pain or shortness of breath 08/02/2023 The patient was seen and examined in ICU She does not feel great today but denies any acute distress Has some chills but no documented temperature Denies any other significant symptoms Review of Systems Review of Systems: All systems reviewed and are unremarkable except as noted below Physical Exam Physical Exam: Lying in bed without any apparent distress Constitutional: well developed, well nourished, + ill appearing and + obese Eyes: PERRL, conjunctivae normal, anicteric sclerae ENMT: external ear and nose normal, oropharynx normal Neck: trachea midline, no thyromegaly Respiratory: no respiratory distress Auscultation: + diminished lung sounds and + crackles (Minimal crackles at the bases) Cardiovascular: Rate/Rhythm: regular rate and regular rhythm; not tachycardic Heart Sounds: normal S1 and normal S2; no murmur Extremities: no edema (Chronic bilateral skin changes in the legs) Gastrointestinal (Abdomen): Inspection/Auscultation: normal bowel sounds; abdomen not distended Percussion/Palpation: abdomen soft; abdomen nontender Musculoskeletal: No acute arthritis involving any joint Neurologic: normal touch/pain/proprioception and moves all extremities (Generally weak and lethargic) Lymphatic: no cervical or axillary lymphadenopathy Results & Data Results & Data Vital Signs (Past 12 Hours) Vital Signs Temp Pulse Resp BP Pulse Ox O2 Del Method O2 Flow Rate 08/02/23 11:00 89 20 93 08/02/23 11:00 36.8 C 08/02/23 10:00 90 24 93 08/02/23 09:00 87 24 98 08/02/23 08:01 121/77 08/02/23 08:01 81 21 96 08/02/23 08:00 81 14 96 08/02/23 08:00 76 129/51 L 08/02/23 07:00 75 19 95 08/02/23 06:01 118/57 L 08/02/23 06:01 75 17 96 08/02/23 06:00 73 17 96 08/02/23 05:00 74 18 93 08/02/23 04:00 144/69 H 08/02/23 04:00 77 16 94 08/02/23 04:00 76 129/51 L 08/02/23 03:00 73 17 93 Nasal Cannula 2 08/02/23 02:30 73 19 93 Nasal Cannula 2 08/02/23 02:00 75 19 93 08/02/23 02:00 123/54 L 08/02/23 01:30 75 20 92 Laboratory Results Short CBC 08/02/23 Range/Units 04:30 WBC 13.56 H (4.8-10.8) K/ul Hgb 10.1 L (12.0-16.0) g/dl Hct 29.6 L (37.0-47.0) % Plt Count 106 L (130-400) K/uL BMP 08/01/23 08/01/23 08/02/23 14:10 20:35 04:30 Sodium 127 L 129 L 131 L Potassium 4.3 4.2 4.1 Chloride 99 102 104 Carbon Dioxide 18 L 19 L 19 L BUN 54 H 49 H 48 H Creatinine 2.80 H 2.50 H D 2.30 H Glucose 224 H 152 H 95 Calcium 7.8 L 7.8 L 7.8 L Medications Administered Current Inpatient Medications Acetaminophen (Acetaminophen 325 Mg Tab) 650 mg PO Q4H PRN PRN Reason: mild pain or fever Stop: 08/30/23 19:12 Last Admin: 08/01/23 08:12 Dose: 650 mg Dextrose (Dextrose 50% 50 Ml Syringe) 25 - 50 ml IV UD PRN; Protocol PRN Reason: Hypoglycemia Protocol Stop: 08/29/23 20:14 Glucagon (Glucagon For Inj 1 Mg Vial) 1 mg SQ UD PRN; Protocol PRN Reason: Hypoglycemia Protocol Stop: 08/29/23 20:14 Glucose (Glucose 10 Tab/Tube) 4 - 8 tab PO UD PRN; Protocol PRN Reason: Hypoglycemia Treatment Stop: 08/29/23 20:14 Glucose (Glucose 40% Gel 15 Gm Tube) 15 - 30 gm PO UD PRN; Protocol PRN Reason: Hypoglycemia Protocol Stop: 08/29/23 20:14 Daptomycin 450 mg/ Syringe 9 mls @ 4.5 mls/min IV Q48H [facility]; Protocol Stop: 08/10/23 05:59 Last Admin: 08/02/23 06:28 Dose: 4.5 mls/min Ceftriaxone Sodium 2,000 mg/ (Dextrose) 50 mls @ 100 mls/hr IV Q24H [facility] Stop: 08/13/23 16:59 Last Infusion: 08/01/23 19:11 Dose: Infused Sodium Chloride (Nss) 1,000 mls @ 100 mls/hr IV .Q10H [facility] Stop: 08/31/23 12:29 Last Admin: 08/02/23 06:45 Dose: 100 mls/hr Amiodarone HCl/Dextrose (Nexterone / D5w) 360 mg in 200 mls @ 16.667 mls/hr IV .Q12H [facility] Stop: 08/31/23 20:14 Last Admin: 08/02/23 09:22 Dose: Not Given Phenylephrine HCl (Phenylephrine/Nss) 25 mg in 250 mls @ 35.25 mls/hr IV .Q7H6M [facility]; Protocol Stop: 08/31/23 21:21 Last Titration: 08/02/23 12:56 Dose: Infused Insulin Aspart (Insulin Aspart Per Unit Charge) 0 units SC ACHS [facility] Stop: 08/29/23 20:59 Last Admin: 08/02/23 12:55 Dose: 4 units Insulin Glargine (Lantus Per Unit Charge) 0 units SC BID [facility]; Protocol Stop: 08/31/23 20:59 Last Admin: 08/02/23 07:53 Dose: Not Given Levothyroxine Sodium (Levothyroxine Sodium 112 Mcg Tablet) 112 mcg PO DAILYBB [facility] Stop: 08/30/23 06:29 Last Admin: 08/02/23 06:28 Dose: 112 mcg Miscellaneous (Carbohydrates For Hypoglycemia ) 15 - 30 gm PO UD PRN PRN Reason: Hypoglycemia Protocol Stop: 08/29/23 20:14 Miscellaneous Information (Pharmacy Glycemic Mgmt Consult) 1 each N/A UD PRN; Protocol PRN Reason: Consult Stop: 08/30/23 16:35 Pantoprazole Sodium (Pantoprazole 40 Mg Tab) 40 mg PO DAILY [facility] Stop: 09/01/23 10:59 Last Admin: 08/02/23 12:55 Dose: 40 mg Rosuvastatin Calcium (Rosuvastatin Calcium 10 Mg Tab) 10 mg PO HS [facility] Stop: 08/29/23 20:59 Last Admin: 07/30/23 21:08 Dose: 10 mg Warfarin Sodium (Warfarin Sod 2.5 Mg Tab) 2.5 mg PO DAILY@1600 [facility] Stop: 08/31/23 15:59 Last Admin: 08/01/23 17:35 Dose: 2.5 mg (4) UTI (urinary tract infection) Hematuria presence: with hematuria Urinary tract infection type: site unspecified Qualified Code(s): N39.0 - Urinary tract infection, site not specified; R31.9 - Hematuria, unspecified
[2023-08-02 20:09] LABS: Basophils # (auto) 0.02 K/uL (0.00-0.20); Basophils % (auto) 0.2 %; Eosinophils # (auto) 0.04 K/uL (0.00-0.50); Eosinophils % (auto) 0.4 %; Hemoglobin 10.2 g/dl (12.0-16.0); Immature Granulocytes # (auto) 0.15 K/uL (0.01-0.20); Immature Granulocytes % (auto) 1.4 %; Lymphocytes # (auto) 0.73 K/uL (1.20-3.40); Mean Corpuscular Hemoglobin 28.9 pg (25.0-34.0); Mean Corpuscular Hgb Conc 32.9 g/dL (32.0-36.0); Mean Corpuscular Volume 87.8 fL (80.0-100.0); Mean Platelet Volume 12.4 fL (9.4-12.4); Monocytes # (auto) 0.69 K/uL (0.11-0.59); Monocytes % (auto) 6.6 %; Neutrophils # (auto) 8.83 K/uL (1.40-6.50); Neutrophils % (auto) 84.4 %; Platelet Count 86 K/uL (130-400); RDW Coefficient of Variation 15.9 % (11.5-14.5); RDW Standard Deviation 51.3 fL (36.4-46.3); Red Blood Count 3.53 M/uL (4.20-5.40); White Blood Count 10.46 K/ul (4.8-10.8)
[2023-08-02 20:16] LABS: INR 3.7 (0.9-1.1); Prothrombin Time 36.9 Seconds (9.0-12.0)
[2023-08-03 04:55] LABS: Basophils # (auto) 0.02 K/uL (0.00-0.20); Basophils % (auto) 0.2 %; Eosinophils % (auto) 0.9 %; Hematocrit (blood only) 30.1 % (37.0-47.0); Hemoglobin 9.9 g/dl (12.0-16.0); Immature Granulocytes # (auto) 0.24 K/uL (0.01-0.20); Immature Granulocytes % (auto) 2.2 %; Lymphocytes # (auto) 0.64 K/uL (1.20-3.40); Lymphocytes % (auto) 5.8 %; Mean Corpuscular Hemoglobin 28.9 pg (25.0-34.0); Mean Corpuscular Hgb Conc 32.9 g/dL (32.0-36.0); Monocytes # (auto) 0.79 K/uL (0.11-0.59); Monocytes % (auto) 7.1 %; Neutrophils # (auto) 9.32 K/uL (1.40-6.50); Neutrophils % (auto) 83.8 %; Platelet Count 93 K/uL (130-400); RDW Coefficient of Variation 16.3 % (11.5-14.5); RDW Standard Deviation 52.4 fL (36.4-46.3); Red Blood Count 3.42 M/uL (4.20-5.40); White Blood Count 11.11 K/ul (4.8-10.8)
[2023-08-03 05:04] LABS: BUN Creatinine Ratio 21.8 (10-20); Calcium 7.7 mg/dl (8.6-10.3); Creatinine Clr Calc Pharmacy 35.9 ml/min; Est GFR (African American) 34.1 ml/min; Est GFR (Non-African American) 29.4 ml/min; Magnesium 1.8 mg/dl (1.7-2.4); Potassium 4.2 mmol/L (3.5-5.1)
[2023-08-03 05:30] LABS: INR 3.6 (0.9-1.1); Prothrombin Time 36.8 Seconds (9.0-12.0)
[2023-08-03] MEDS: DAPTOmycin 450 MG in SYRINGE 0 ML IV SCH (10:04)
--- NOTE | 2023-08-03 13:03 | Hospitalist Progress Note ---
Date of Service August 03, 2023 Assessment & Plan (1) Sepsis: Plan: Secondary to complicated UTI with right ureteral obstruction and hydronephrosis Urine culture and blood cultures are growing gram-negative bacilli-further identification is pending Received 1 dose of ceftriaxone in the ER followed by cefepime and now has been on daptomycin and meropenem Awaiting further identification of the gram-negative bacilli Will continue current antibiotics Clinically improving Blood culture is growing E. coli so far which is pansensitive Urine culture is growing E. coli and probable Enterococcus Await further identification and sensitivities We will continue with intravenous Dapto and ceftriaxone for now Blood culture is growing VRE Clinically better and will get ID recommendation Sepsis with hypotension-sepsis due to E. coli UTI and bacteremia Has been requiring intravenous pressor resents to maintain blood pressure Is transferred to ICU early this morning Appreciate procedure rn input and recommendation Blood pressure has been maintaining around 120s systolic with vasopressor Still requiring intravenous norepinephrine to maintain blood pressure She has been off the pressor agents Remains with telemetry status Clinically much improved and will have PT and OT evaluation (2) Hydronephrosis with renal and ureteral calculous obstruction: Plan: Patient presenting from home with reports of profuse diarrhea x 3 days. Reports she returned home from a cruise 11 days ago. In the ED, WBC 17 K, mild tachycardia. Afebrile, BP stable. Lactate pending. UA suggestive of UTI. CT ABD/pelvis showing 1.4 x 0.6 cm proximal right ureteral calculus results in mild right hydronephrosis with perinephric stranding. S/p ceftriaxone in the ED, given history of Pseudomonas, will continue with cefepime. Check MRSA nasal swab and if positive will add daptomycin (in favor of Vanco given SAJAN) Urology contacted by ED, planning on cystoscopy this evening Status post cystoscopy, retrograde pyelogram, aspiration and right ureteral stent placement by Dr. Edwards on 07/30/2023 at 6:30 PM Appreciate urology follow-up and further recommendation Further definitive procedure in about 1 to 2 weeks as per the urologist (3) SAJAN (acute kidney injury): Plan: Has had diarrhea prior to presentation with the dehydration SAJAN is complicated by sepsis Has been getting intravenous fluid Urine output was was noted to be low this morning Creatinine improved a little bit yesterday but again worse this morning Expected to improve if there is no improvement will need nephrology evaluation Has been going through diuretic phase of SAJAN-urine output 2000 mL last 24 hours Will continue with intravenous fluid and monitor PRP Kidney function is improved at 48/2.30 Creatinine has been improving and it is 1.70 as of -24 down from 4.23 (4) UTI (urinary tract infection): Plan: As above (5) Adenovirus infection: Plan: Complicating sepsis (6) Diarrhea: Plan: Bio fire positive for adenovirus Will also check stool studies and C. difficile Continue supportive care Diarrhea seems to be under control (7) CKD (chronic kidney disease), stage III: Plan: Creatinine 4.2, baseline ~1.1 Secondary to dehydration from severe diarrhea and also obstructing renal calculi IVF, follow renal functions Nephrology consult if not improving Clinically much better will need to have nephro as an outpatient (8) PAF (paroxysmal atrial fibrillation): Plan: Rhythm controlled on amiodarone, rate controlled on metoprolol Anticoagulated on Coumadin, (9) (HFpEF) heart failure with preserved ejection fraction: Plan: Echo 01/2023-EF 55 to 59%, moderate aortic stenosis, mild tricuspid regurgitation Volume status acceptable, holding diuretics due to SAJAN/sepsis, resume as able (10) Type II diabetes mellitus: Plan: Hgb A1c 6.3 07/2023 Hold oral agents and Ozempic and utilize NovoLog per protocol while hospitalized (11) Gout: Plan: Hold allopurinol for now due to SAJAN (12) HTN (hypertension): Plan: Continue metoprolol, holding lisinopril and amlodipine due to sepsis/SAJAN, resume as able (13) Hypothyroid: Plan: Chronic, stable Continue levothyroxine (14) Sleep apnea: Plan: CPAP as per home settings DVT PROPHYLAXIS On Coumadin, SCDs when INR <2.0 INR remains supratherapeutic secondary to sepsis Received 2.5 mg of phytonadione No evidence of bleeding Coumadin has been restarted-INR is 3.4 as of 08/02/2023 CODE STATUS Full Admission and Anticipated Discharge Date Admission Date: July 30, 2023 Subjective 07/31/2023 The patient was seen and examined in ICU She was moved to ICU early this morning with hypotension secondary to sepsis She has been feeling a little better and complains to weakness Denies any chest pain, palpitation, any abdominal pain, nausea and or vomiting 08/01/2023 The patient was seen and examined in ICU She has been feeling much better today but is still on intravenous pressors to maintain blood pressure She has been making out enough urine Denies any abdominal pain, chest pain or shortness of breath 08/02/2023 The patient was seen and examined in ICU She does not feel great today but denies any acute distress Has some chills but no documented temperature Denies any other significant symptoms 08/03/2023 The patient was seen and examined in ICU with telemetry status She has been feeling much better Denies any significant symptoms except weakness She will get PT and OT evaluation Review of Systems Review of Systems: All systems reviewed and are unremarkable except as noted below Physical Exam Physical Exam: Lying in bed without any apparent distress Constitutional: well developed, well nourished, + ill appearing and + obese Eyes: PERRL, conjunctivae normal, anicteric sclerae ENMT: external ear and nose normal, oropharynx normal Neck: trachea midline, no thyromegaly Respiratory: no respiratory distress Auscultation: + diminished lung sounds and + crackles (Minimal crackles at the bases) Cardiovascular: Rate/Rhythm: regular rate and regular rhythm; not tachycardic Heart Sounds: normal S1 and normal S2; no murmur Extremities: no edema (Chronic bilateral skin changes in the legs) Gastrointestinal (Abdomen): Inspection/Auscultation: normal bowel sounds; abdomen not distended Percussion/Palpation: abdomen soft; abdomen nontender Musculoskeletal: No acute arthritis involving any of the joints Neurologic: normal touch/pain/proprioception and moves all extremities (Generally weak and lethargic) Lymphatic: no cervical or axillary lymphadenopathy Results & Data Results & Data Vital Signs (Past 12 Hours) Vital Signs Temp Pulse Resp BP BP Pulse Ox 08/03/23 12:03 36.7 C 108/62 08/03/23 12:00 93 H 24 91 08/03/23 11:00 85 18 93 08/03/23 10:01 84 18 98 08/03/23 10:00 87 19 96 08/03/23 09:00 84 22 94 08/03/23 08:05 92 H 28 H 94 08/03/23 08:05 97/60 L 08/03/23 08:01 93 H 17 94 08/03/23 08:00 91 H 20 92 08/03/23 08:00 36.8 C 04/02/24 06:01 82 17 96 08/03/23 06:01 90/72 L 08/03/23 06:00 82 17 96 08/03/23 03:00 81 17 95 08/03/23 02:01 100/52 L 08/03/23 02:01 82 18 94 08/03/23 02:00 82 19 93 08/03/23 01:00 88 20 93 Laboratory Results Short CBC 08/02/23 08/03/23 Range/Units 19:19 04:18 WBC 10.46 11.11 H (4.8-10.8) K/ul Hgb 10.2 L 9.9 L (12.0-16.0) g/dl Hct 31.0 L 30.1 L (37.0-47.0) % Plt Count 86 L 93 L (130-400) K/uL BMP 08/03/23 04:18 Sodium 133 L Potassium 4.2 Chloride 108 H Carbon Dioxide 19 L BUN 37 H Creatinine 1.70 H D Glucose 114 H Calcium 7.7 L Medications Administered Current Inpatient Medications Acetaminophen (Acetaminophen 325 Mg Tab) 650 mg PO Q4H PRN PRN Reason: mild pain or fever Stop: 08/30/23 19:12 Last Admin: 08/03/23 11:14 Dose: 650 mg Dextrose (Dextrose 50% 50 Ml Syringe) 25 - 50 ml IV UD PRN; Protocol PRN Reason: Hypoglycemia Protocol Stop: 08/29/23 20:14 Glucagon (Glucagon For Inj 1 Mg Vial) 1 mg SQ UD PRN; Protocol PRN Reason: Hypoglycemia Protocol Stop: 08/29/23 20:14 Glucose (Glucose 10 Tab/Tube) 4 - 8 tab PO UD PRN; Protocol PRN Reason: Hypoglycemia Treatment Stop: 08/29/23 20:14 Glucose (Glucose 40% Gel 15 Gm Tube) 15 - 30 gm PO UD PRN; Protocol PRN Reason: Hypoglycemia Protocol Stop: 08/29/23 20:14 Ceftriaxone Sodium 2,000 mg/ (Dextrose) 50 mls @ 100 mls/hr IV Q24H [facility] Stop: 08/13/23 16:59 Last Infusion: 08/02/23 16:55 Dose: Infused Sodium Chloride (Nss) 1,000 mls @ 100 mls/hr IV .Q10H [facility] Stop: 08/31/23 12:29 Last Admin: 08/03/23 10:59 Dose: 100 mls/hr Amiodarone HCl/Dextrose (Nexterone / D5w) 360 mg in 200 mls @ 16.667 mls/hr IV .Q12H [facility] Stop: 08/31/23 20:14 Last Admin: 08/03/23 01:54 Dose: 0.5 mg/min, 16.7 mls/hr Phenylephrine HCl (Phenylephrine/Nss) 25 mg in 250 mls @ 35.25 mls/hr IV .Q7H6M [facility]; Protocol Stop: 08/31/23 21:21 Last Admin: 08/02/23 20:30 Dose: Not Given Daptomycin 450 mg/ Syringe 9 mls @ 4.5 mls/min IV Q24H [facility]; Protocol Stop: 08/10/23 09:59 Last Admin: 08/03/23 10:04 Dose: 4.5 mls/min Insulin Aspart (Insulin Aspart Per Unit Charge) 0 units SC ACHS [facility] Stop: 08/29/23 20:59 Last Admin: 08/03/23 11:58 Dose: 5 units Levothyroxine Sodium (Levothyroxine Sodium 112 Mcg Tablet) 112 mcg PO DAILYBB [facility] Stop: 08/30/23 06:29 Last Admin: 08/03/23 07:27 Dose: 112 mcg Miscellaneous (Carbohydrates For Hypoglycemia ) 15 - 30 gm PO UD PRN PRN Reason: Hypoglycemia Protocol Stop: 08/29/23 20:14 Miscellaneous Information (Pharmacy Glycemic Mgmt Consult) 1 each N/A UD PRN; Protocol PRN Reason: Consult Stop: 08/30/23 16:35 Pantoprazole Sodium (Pantoprazole 40 Mg Tab) 40 mg PO DAILY [facility] Stop: 09/01/23 10:59 Last Admin: 08/03/23 08:02 Dose: 40 mg Rosuvastatin Calcium (Rosuvastatin Calcium 10 Mg Tab) 10 mg PO HS [facility] Stop: 08/29/23 20:59 Last Admin: 07/30/23 21:08 Dose: 10 mg Warfarin Sodium (Warfarin Sod 2.5 Mg Tab) 2.5 mg PO DAILY@1600 [facility] Stop: 08/31/23 15:59 Last Admin: 08/01/23 17:35 Dose: 2.5 mg (4) UTI (urinary tract infection) Hematuria presence: with hematuria Urinary tract infection type: site unspecified Qualified Code(s): N39.0 - Urinary tract infection, site not specified; R31.9 - Hematuria, unspecified
--- NOTE | 2023-08-03 13:56 | Infectious Disease Consult ---
Date of Service August 03, 2023 Telehealth Information I performed this visit using a real-time telehealth connection between my location and the patients location ([facility]). After connecting through interactive tele-video, patient was identified by name and date of and/or wristband check.Patient (or authorized healthcare labor union business representative) was informed that this was a telemedicine visit and it was being conducted confidentially over secure lines. My office door was closed and no one else was present in the room with me.Patient (or authorized healthcare labor union business representative) provided consent to proceed with the visit, expressed an understanding of privacy and security of the telemedicine visit, and gave permission to have a hospital labor union business representative in the room in order to assist with the visit and to conduct portions of the visit, as needed. I informed the patient (or authorized healthcare labor union business representative) that I reviewed their record and presented the opportunity for them to ask any questions regarding the visit today. The patient agreed to participate. Assessment & Plan (1) Septic shock: (2) Complicated UTI (urinary tract infection): (3) E coli bacteremia: (4) Hydronephrosis with renal and ureteral calculous obstruction: Plan Since all organisms including VRE, Proteus and E coli are ampicillin susceptible, I would recommend stopping all current antibiotics and starting on ampicillin. She will require 14 days of antibiotics to treat complicated UTI/pyelonephritis. I would recommend keeping on ampicillin for a total duration of 14 days as there is no potential oral antibiotic to use for all involved organisms. Thank you for consulting ID. Please feel free to contact us again should you have any questions or concerns. History of Present Illness History of Present Illness Ms. Paulino is a 73-year-old woman with medical history of obesity, type 2 diabetes, HTN, CKD stage 3, gout, hypothyroidism, hyperlipidemia, EDYTA on CPAP, paroxysmal AFib and history of CVA who was admitted to [facility] on 07/30/2023 because of generalized weakness and diarrhea for the last 3 days prior to presentation. On presentation, she was hypotensive at 90/57, hypothermic at 36.2, tachycardic at 100 and saturating 93% at room air. She did not respond appropriately to IV fluids and had to be started on pressors and admitted to the ICU. Initial workup showed leukocytosis of 17.6, anion gap acidosis with hyponatremia, lactic acidosis and SAJAN on top of CKD, mildly elevated ALT/AST/alkaline phosphatase, UA with 1+ bacteria and more than 30 WBCs and shortly after admission, her blood culture came back positive for E coli. CT abdomen pelvis showed a 1.4 x 0.6 proximal right ureteral calculus with mild right hydronephrosis and perinephric stranding. It further demonstrated bilateral nephrolithiasis. She was eventually taken by the Urology team for cystoscopy with right retrograde pyelogram and right ureteral stent placement. As of this morning, she is off pressors and doing well overall. Id team was consulted for further recommendations and to help guide antibiotic treatment. Allergies Allergy/AdvReac Type Severity Reaction Status Date / Time Penicillins Allergy Intermediate URTICARIA; Verified 07/30/23 16:09 PER PT, CAN TAKE AMOXICILLIN erythromycin base AdvReac Intermediate GI UPSET Verified 07/30/23 16:09 Home Medications Medication Instructions Recorded Confirmed Type allopurinol 100 mg tablet 200 mg PO HS 02/15/18 07/30/23 History (Zyloprim) omeprazole 20 mg capsule,delayed 20 mg PO QAM 02/15/18 07/30/23 History release spironolactone 25 mg tablet 25 mg PO QAM 02/15/18 07/30/23 History (Aldactone) magnesium oxide 400 mg PO QPM 02/03/20 07/30/23 History rosuvastatin 10 mg tablet (Crestor) 10 mg PO HS 02/03/20 07/30/23 History metoprolol tartrate 50 mg tablet 50 mg PO BID #0 tabs 02/09/20 07/30/23 Rx bumetanide 1 mg tablet 1 mg PO QAM 06/20/20 07/30/23 History cholecalciferol (vitamin D3) 25 1,000 unit PO QAM 06/20/20 07/30/23 History mcg (1,000 unit) capsule metformin 500 mg tablet,extended 500 mg PO QAM 06/20/20 07/30/23 History release 24 hr amiodarone 200 mg tablet 200 mg PO QAM 09/04/20 07/30/23 History amlodipine 5 mg tablet 5 mg PO BID 09/04/20 07/30/23 History multivitamin 1 tab PO QPM 03/10/21 07/30/23 History levothyroxine 112 mcg tablet 112 mcg PO QAM 04/14/21 07/30/23 History lisinopril 10 mg tablet 10 mg PO QPM 04/14/21 07/30/23 History acetaminophen 500 mg tablet 500 mg PO TID PAIN/FEVER 07/15/21 07/30/23 History (Tylenol Extra Strength) iron,carbonyl 65 mg-vitamin C 125 1 tab PO MOWEFR 07/30/23 07/30/23 History mg tablet,delayed release (Vitron-C) repaglinide 0.5 mg tablet 0.5 mg PO TID 07/30/23 07/30/23 History semaglutide 1 mg/dose (4 mg/3 mL) 1 mg subcut WK 07/30/23 07/30/23 History subcutaneous pen injector (Ozempic) warfarin 5 mg tablet See Rx Instructions .Route .COMPLEX 07/30/23 07/30/23 History Patient History Medical History (Updated 08/03/23 @ 13:59 by Diana Rader MD) (HFpEF) heart failure with preserved ejection fraction PAF (paroxysmal atrial fibrillation) Rotator cuff tear arthropathy of both shoulders Venous ulcer Complex renal cyst Pseudomonas infection Osteonecrosis MRSA infection Diabetic ulcer of left foot associated with diabetes mellitus due to underlying condition, with fat layer exposed Diabetic ulcer of right foot associated with diabetes mellitus due to underlying condition, with fat layer exposed PEA (Pulseless electrical activity) Nephrolithiasis Discitis of lumbosacral region Chronic venous insufficiency Osteoarthritis Anemia MRSA (methicillin resistant Staphylococcus aureus) From wound in 2017 - Per Infection Control (04/21/21) pt does not need to be on precautions at this time T2DM (type 2 diabetes mellitus) Hx of osteomyelitis Spine (02/2020) treated at [facility] with fci antibiotics and oxycodone for pain management Sleep apnea CPAP Hypertension Hypothyroidism Morbid obesity CVA (cerebral vascular accident) Silent > Old infarct found on remote CT imaging (dating back to at least 2017) CKD stage 3 secondary to diabetes DM II (diabetes mellitus, type II), controlled NIDDM Dyslipidemia Gout hx Anemia Hx of basal cell carcinoma Gastric ulcer due to Helicobacter pylori hx Surgical History (Updated 08/03/23 @ 13:59 by Diana Rader MD) S/P ureteral stent placement S/P panniculectomy S/P ureteral stent placement History of cystoscopy History of cataract surgery S/P panniculectomy History of umbilical hernia repair (09/11/20) Umbilical Hernia Repair with Mesh - Pete Zafar DO, FACS History of cardioversion RASHID with cardioversion (02/07/20): MAC sedation at [facility] S/P debridement multiple abdominal debridements at [facility]. 08/2020 History of esophagogastroduodenoscopy (EGD) H/O repair of rotator cuff right H/O left knee surgery multiple knee arthroscopy on left H/O basal cell carcinoma excision Status post Mohs surgery History of carpal tunnel surgery History of arthroplasty of left knee Family History Mother Diabetes Heart disease Father Hypertension Stroke Other No family history of adverse response to anesthesia No pertinent family history Social History Smoking Status: Never smoker Second Hand Exposure: No; Do You Dip or Chew Tobacco: No; Hx Alcohol Use: Yes Alcohol type: wine Hx Substance Use: No Preferred Language: Syriac Communication Ability: Effective Hearing Ability: Normal Email Production Specialist Required: No Beliefs That Will Affect Care: None marital status: / Current Living Situation: Alone Current Living Situation Comment: [facility]. 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 Results & Data Vital Signs (Past 12 Hours) Vital Signs Temp Pulse Resp BP BP Pulse Ox 08/03/23 12:03 36.7 C 108/62 08/03/23 12:00 93 H 24 91 08/03/23 11:00 85 18 93 08/03/23 10:01 84 18 98 08/03/23 10:00 87 19 96 08/03/23 09:00 84 22 94 08/03/23 08:05 92 H 28 H 94 08/03/23 08:05 97/60 L 08/03/23 08:01 93 H 17 94 08/03/23 08:00 91 H 20 92 08/03/23 08:00 36.8 C 08/03/23 06:01 82 17 96 08/03/23 06:01 90/72 L 08/03/23 06:00 82 17 96 08/03/23 03:00 81 17 95 08/03/23 02:01 100/52 L 08/03/23 02:01 82 18 94 08/03/23 02:00 82 19 93 Laboratory Results Microbiology: 07/29: 2/4 bottles of blood culture growing E coli 07/29: Urine culture from right renal pelvis growing E coli, VRE and Proteus 07/30: Urine culture growing VRE and E coli Diagnostic Findings CT abdomen pelvis on 07/29: 1. 1.4 x 0.6 cm proximal right ureteral calculus results in mild right hydronephrosis with perinephric stranding. No additional ureteral calculi. Small amount of gas within the right collecting system. Given gas within the bladder, this gas could be due to recent procedure/instrumentation. An infectious etiology cannot be excluded and could be correlated with urinalysis. 2. Bilateral nephrolithiasis. No left hydronephrosis. 3. No bowel obstruction. Colonic diverticulosis. No evidence for acute diverticulitis.
[2023-08-03] MEDS ORDERED: AMPICILLIN SOD 1 GM VIAL IV SCH (16:30)
[2023-08-03] MEDS: AMPICILLIN 2,000 MG in SODIUM CHLOR 0.9% MINI-B 100 ML IV SCH (17:46)
[2023-08-04 07:34] LABS: Basophils # (auto) 0.01 K/uL (0.00-0.20); Basophils % (auto) 0.1 %; Eosinophils # (auto) 0.11 K/uL (0.00-0.50); Eosinophils % (auto) 0.8 %; Hematocrit (blood only) 28.4 % (37.0-47.0); Hemoglobin 9.7 g/dl (12.0-16.0); Immature Granulocytes # (auto) 0.33 K/uL (0.01-0.20); Immature Granulocytes % (auto) 2.4 %; Lymphocytes # (auto) 0.97 K/uL (1.20-3.40); Lymphocytes % (auto) 7.1 %; Mean Corpuscular Hemoglobin 29.6 pg (25.0-34.0); Mean Corpuscular Hgb Conc 34.2 g/dL (32.0-36.0); Mean Corpuscular Volume 86.6 fL (80.0-100.0); Mean Platelet Volume 11.8 fL (9.4-12.4); Monocytes # (auto) 0.72 K/uL (0.11-0.59); Monocytes % (auto) 5.3 %; Neutrophils # (auto) 11.46 K/uL (1.40-6.50); Neutrophils % (auto) 84.3 %; Platelet Count 107 K/uL (130-400); RDW Coefficient of Variation 16.7 % (11.5-14.5); RDW Standard Deviation 53.5 fL (36.4-46.3); Red Blood Count 3.28 M/uL (4.20-5.40)
[2023-08-04 08:23] LABS: BUN Creatinine Ratio 22.1 (10-20); Calcium 7.7 mg/dl (8.6-10.3); Creatinine Clr Calc Pharmacy 38.2 ml/min; Est GFR (African American) 35.9 ml/min; Est GFR (Non-African American) 30.9 ml/min; Potassium 4.3 mmol/L (3.5-5.1)
[2023-08-04 08:58] LABS: INR 3.8 (0.9-1.1); Prothrombin Time 38.5 Seconds (9.0-12.0)
--- NOTE | 2023-08-04 12:53 | Electrocardiogram Report ---
Test Reason : Blood Pressure : / mmHG Vent. Rate : 071 BPM Atrial Rate : 071 BPM P-R Int : 192 ms QRS Dur : 096 ms QT Int : 452 ms P-R-T Axes : 063 -51 -07 degrees QTc Int : 491 ms Sinus rhythm with occasional Premature ventricular complexes Left axis deviation Inferior infarct , age undetermined Anterolateral infarct (cited on or before 22-APR-2021) Abnormal ECG When compared with ECG of 30-JUL-2023 11:50, Premature ventricular complexes are now Present Questionable change in initial forces of Lateral leads Nonspecific T wave abnormality, worse in Inferior leads T wave inversion now evident in Anterior leads Confirmed by Jonathan Flood ([id number]) on 08/04/2023 12:53:43 PM Referred By: REFERRED SELF Confirmed By:Jonathan Flood
--- NOTE | 2023-08-04 15:27 | Hospitalist Progress Note ---
Date of Service August 04, 2023 Assessment & Plan (1) Sepsis: Plan: Septic shock Complicated UTI E. coli bacteremia Obstructive uropathy --CT ABD: 1.4 x 0.6 cm proximal right ureteral calculus results in mild right hydronephrosis with perinephric stranding. No additional ureteral calculi. Small amount of gas within the right collecting system. Given gas within the bladder, this gas could be due to recent procedure/instrumentation. An infectious etio logy cannot be excluded and could be correlated with urinalysis. Bilateral nephrolithiasis. No left hydronephrosis. No bowel obstruction. Colonic diverticulosis. No evidence for acute diverticulitis. --S/P Cystoscopy with right retrograde Pyelogram, Aspiration, right Ureteral Stent Placement by on 07/30/23 -- Blood culture growing E. coli --Urine culture growing Enterococcus faecalis VRE, E. coli, Proteus mirabilis -- Off pressors Appreciate critical care, urology and infectious disease Gentle IV fluids for now Continue IV ampicillin per ID--need to complete 14-day course Monitor volume status Continue PT/OT Needs follow-up with urology on discharge (2) Hydronephrosis with renal and ureteral calculous obstruction: Plan: Management as above Chronic hyponatremia Sodium 134 today Monitor (3) SAJAN (acute kidney injury): Plan: SAJAN on CKD III Likely multifactorial secondary to ATN, obstructive uropathy, dehydration due to diarrhea Cr 4.2>3.5>2.8>1.6 Avoid nephrotoxic agents as able Monitor renal function (4) UTI (urinary tract infection): Plan: As above (5) Adenovirus infection: Plan: Complicating sepsis Conservative management Supplemental oxygen as needed (6) Diarrhea: Plan: Bio fire positive for adenovirus Continue supportive care Will check stool studies if recurrent Antibiotics likely contributing as well (7) CKD (chronic kidney disease), stage III: Plan: Management as above (8) PAF (paroxysmal atrial fibrillation): Plan: Supratherapeutic INR INR 3.8 today Hold Coumadin today Continue amiodarone Resume metoprolol when blood pressure more stable Monitor (9) (HFpEF) heart failure with preserved ejection fraction: Plan: Echo 01/2023-EF 55 to 59%, moderate aortic stenosis, mild tricuspid regurgitation Diuretics held due to SAJAN/sepsis resume diuretics as able (10) Type II diabetes mellitus: Plan: Hgb A1c 6.3 07/2023 Hold oral agents and Ozempic and utilize NovoLog per protocol while hospitalized Monitor BGs (11) Gout: Plan: Hold allopurinol for now due to SAJAN (12) HTN (hypertension): Plan: Held metoprolol, lisinopril and amlodipine Monitor BP (13) Hypothyroid: Plan: Chronic, stable Continue levothyroxine (14) Sleep apnea: Plan: CPAP as per home settings DVT Px Coumadin held INR supratherapeutic CODE STATUS Full Code Admission and Anticipated Discharge Date Admission Date: July 30, 2023 Subjective Patient is seen and examined at bedside States having generalized pain and feels weak and tired today Admits to have minimal cough Diarrhea resolved per patient Denies any chest pain, dyspnea, nausea, vomiting, abdominal pain Blood pressure relatively low No other complaints Review of Systems Review of Systems: All systems reviewed & are unremarkable except as noted in Subjective Physical Exam Physical Exam: Physical Exam: Vitals signs as noted above General Appearance:Obese, no apparent distress, ill appearing Head: normocephalic, Atraumatic Eyes: normal inspection, EOMI Neck: supple, Trachea midline Respiratory/Chest: Decreased breath sounds, basal crackles, No accessory muscle use Cardiovascular: S1, S2, No murmur Abdomen/GI:Soft, Non tender, Bowel sounds present Extremities/Musculoskeletal:normal inspection, 1-2+ LE edema, RLE small wound, Chronic venous stasis changes Neurologic/Psych:AAOX3, grossly no focal neurological deficits Skin: normal color, warm Results & Data Results & Data Vital Signs (Past 12 Hours) Vital Signs Temp Pulse Pulse Resp BP Pulse Ox O2 Del Method 08/04/23 11:05 36.4 C L 76 20 102/50 L 97 Nasal Cannula 08/04/23 11:00 Nasal Cannula 08/04/23 07:28 36.5 C 81 20 104/62 97 Nasal Cannula 08/04/23 07:11 75 O2 Flow Rate 08/04/23 11:05 4 08/04/23 11:00 4 08/04/23 07:28 4 08/04/23 07:11 Laboratory Results Short CBC 08/04/23 Range/Units 06:47 WBC 13.60 H (4.8-10.8) K/ul Hgb 9.7 L (12.0-16.0) g/dl Hct 28.4 L (37.0-47.0) % Plt Count 107 L (130-400) K/uL BMP 08/04/23 06:47 Sodium 134 L Potassium 4.3 Chloride 108 H Carbon Dioxide 18 L BUN 36 H Creatinine 1.63 H Glucose 141 H Calcium 7.7 L (4) UTI (urinary tract infection) Hematuria presence: with hematuria Urinary tract infection type: site unspecified Qualified Code(s): N39.0 - Urinary tract infection, site not specified; R31.9 - Hematuria, unspecified
[2023-08-04] MEDS: oxyCODONE/ACETAMINOPHEN 5mg/325mg TAB PO PRN (18:47)
[2023-08-05 09:10] LABS: Hematocrit (blood only) 31.4 % (37.0-47.0); Hemoglobin 10.5 g/dl (12.0-16.0); Mean Corpuscular Hgb Conc 33.4 g/dL (32.0-36.0); Mean Corpuscular Volume 86.7 fL (80.0-100.0); Mean Platelet Volume 11.1 fL (9.4-12.4); Platelet Count 151 K/uL (130-400); RDW Coefficient of Variation 16.5 % (11.5-14.5); RDW Standard Deviation 51.6 fL (36.4-46.3); Red Blood Count 3.62 M/uL (4.20-5.40); White Blood Count 14.51 K/ul (4.8-10.8)
[2023-08-05 09:32] LABS: INR 3.4 (0.9-1.1); Prothrombin Time 34.2 Seconds (9.0-12.0)
[2023-08-05] MEDS: LANTUS PER UNIT CHARGE SC SCH (09:42)
[2023-08-05 09:44] LABS: BUN Creatinine Ratio 24.1 (10-20); Calcium 7.9 mg/dl (8.6-10.3); Est GFR (African American) 42.7 ml/min; Est GFR (Non-African American) 36.9 ml/min; Magnesium 1.6 mg/dl (1.7-2.4); Potassium 4.5 mmol/L (3.5-5.1)
[2023-08-05] MEDS: MAGNESIUM SULFATE / D5W 1 GM/100 ML BAG IV ONE (10:29)
[2023-08-05] MEDS: AMIODARONE 200 MG TAB PO ONE (10:29)
--- NOTE | 2023-08-05 12:37 | Pharmacy Report ---
Pharmacy Glycemic Short Note 2 - Date of Service August 05, 2023 - Glycemic Short BSG Results (Last 24 hours): 08/04/23 08/04/23 08/05/23 16:40 19:59 07:41 Glucose POC Glucose 161 H 202 H 162 H 08/05/23 08/05/23 08:48 11:41 Glucose 210 H POC Glucose 194 H OUTPATIENT ANTIDIABETIC REGIMEN: * metformin 500 mg qAM, repaglinide 0.5 mg tid, ozempic ASSESSMENT: 08/04: * BSGs yesterday were [phone] mg/dl. Fasting BSG today =162 mg/dl. * Since fasting BSG is trending up and post-prandial BSGs could improve, added 5 units of basal insulin this morning which is less than a stress of 1. * Novolog parameters continued the same. 08/01 * BSGs acceptable over last 24 hours * Amiodarone gttmixed in D5W continues; pressors weaned off * Fasting BSG 95 this AM with 15 units basal on board - will continue to scale dose to lessen risk of hypoglycemia * Post-prandial BSGs at goal 2 of 3 yesterday - will lessen Novolog doses PLAN FOR INPATIENT GLYCEMIC CONTROL: * Hold outpatient oral diabetes medications * Basal insulin * Lantus 5 units SC QAM * Bolus insulin * NovoLog per scale ACHS or Q6hrs while NPO * Goal Range: Low 110 mg/dL - High 140 mg/dL * Correction Factor: 25 mg/dL/unit * Nutritional / Prandial insulin per carb ratio of 1 unit per 8 grams CHO consumed
[2023-08-05] MEDS ORDERED: AZTREONAM 1,000 MG in DEXTROSE 5% MINI-B 100 ML IV SCH (15:30)
[2023-08-05] MEDS ORDERED: DAPTOmycin 325 MG in SYRINGE 0 ML IV SCH (15:30)
[2023-08-05] MEDS ORDERED: AZTREONAM 2,000 MG in DEXTROSE 5% MINI-B 100 ML IV SCH (15:30)
--- NOTE | 2023-08-05 16:20 | Hospitalist Progress Note ---
Date of Service August 05, 2023 Assessment & Plan (1) Sepsis: Plan: Septic shock Complicated UTI E. coli bacteremia Obstructive uropathy --CT ABD: 1.4 x 0.6 cm proximal right ureteral calculus results in mild right hydronephrosis with perinephric stranding. No additional ureteral calculi. Small amount of gas within the right collecting system. Given gas within the bladder, this gas could be due to recent procedure/instrumentation. An infectious etio logy cannot be excluded and could be correlated with urinalysis. Bilateral nephrolithiasis. No left hydronephrosis. No bowel obstruction. Colonic diverticulosis. No evidence for acute diverticulitis. --S/P Cystoscopy with right retrograde Pyelogram, Aspiration, right Ureteral Stent Placement by on 07/30/23 -- Blood culture growing E. coli --Urine culture growing Enterococcus faecalis VRE, E. coli, Proteus mirabilis -- Off pressors Appreciate critical care, urology and infectious disease Discontinue IV fluids Was changed to IV ampicillin per ID--need to complete 14-day course.. Given development of fever and worsening leukocytosis, will broaden IV antibiotics to daptomycin and cefepime Monitor volume status Continue PT/OT Needs follow-up with urology on discharge Will repeat blood, urine cultures and check chest x-ray Blood pressure stable (2) Hydronephrosis with renal and ureteral calculous obstruction: Plan: Management as above Chronic hyponatremia Sodium 134 today Monitor (3) SAJAN (acute kidney injury): Plan: SAJAN on CKD III Likely multifactorial secondary to ATN, obstructive uropathy, dehydration due to diarrhea Cr 4.2>3.5>2.8>1.6>1.4 Avoid nephrotoxic agents as able Monitor renal function (4) UTI (urinary tract infection): Plan: As above (5) Adenovirus infection: Plan: Complicating sepsis Conservative management Supplemental oxygen as needed (6) Diarrhea: Plan: Bio fire positive for adenovirus Continue supportive care Will check stool studies if recurrent Antibiotics likely contributing as well (7) CKD (chronic kidney disease), stage III: Plan: Management as above (8) PAF (paroxysmal atrial fibrillation): Plan: Supratherapeutic INR INR 3.4 today Hold Coumadin today Continue amiodarone Resume metoprolol today Monitor (9) (HFpEF) heart failure with preserved ejection fraction: Plan: Echo 01/2023-EF 55 to 59%, moderate aortic stenosis, mild tricuspid regurgitation Diuretics held due to SAJAN/sepsis resume diuretics as able (10) Type II diabetes mellitus: Plan: Hgb A1c 6.3 07/2023 Hold oral agents and Ozempic and utilize NovoLog per protocol while hospitalized Monitor BGs (11) Gout: Plan: Hold allopurinol for now due to SAJAN (12) HTN (hypertension): Plan: Held lisinopril and amlodipine Monitor BP (13) Hypothyroid: Plan: Chronic, stable Continue levothyroxine (14) Sleep apnea: Plan: CPAP as per home settings DVT Px Coumadin held INR supratherapeutic CODE STATUS Full Code Admission and Anticipated Discharge Date Admission Date: July 30, 2023 Subjective Patient is seen and examined at bedside States having back, shoulder pain this morning but otherwise no new complaints Developed fever this afternoon Less cough today No recurrence of diarrhea Denies any chest pain, dyspnea, nausea, vomiting, abdominal pain Review of Systems Review of Systems: All systems reviewed & are unremarkable except as noted in Subjective Physical Exam Physical Exam: Physical Exam: Vitals signs as noted above General Appearance:Obese, no apparent distress, ill appearing Head: normocephalic, Atraumatic Eyes: normal inspection, EOMI Neck: supple, Trachea midline Respiratory/Chest: Decreased breath sounds, basal crackles, No accessory muscle use Cardiovascular: S1, S2, No murmur Abdomen/GI:Soft, Non tender, Bowel sounds present Extremities/Musculoskeletal:normal inspection, 1-2+ LE edema, RLE small wound, Chronic venous stasis changes Neurologic/Psych:AAOX3, grossly no focal neurological deficits Skin: normal color, warm Results & Data Results & Data Vital Signs (Past 12 Hours) Vital Signs Temp Pulse Resp BP BP Pulse Ox O2 Del Method 08/05/23 15:31 37.8 C H 80 24 137/76 93 Room Air 08/05/23 15:00 38.1 C H 122 H 20 137/76 Room Air 08/05/23 11:06 36.7 C 81 16 133/66 92 Room Air 08/05/23 08:00 Nasal Cannula 08/05/23 07:51 36.8 C 84 16 124/69 94 Nasal Cannula O2 Flow Rate 08/05/23 15:31 08/05/23 15:00 08/05/23 11:06 08/05/23 08:00 2 08/05/23 07:51 1 Laboratory Results Short CBC 08/05/23 Range/Units 08:48 WBC 14.51 H (4.8-10.8) K/ul Hgb 10.5 L (12.0-16.0) g/dl Hct 31.4 L (37.0-47.0) % Plt Count 151 (130-400) K/uL BMP 08/05/23 08:48 Sodium 134 L Potassium 4.5 Chloride 108 H Carbon Dioxide 17 L BUN 34 H Creatinine 1.41 H Glucose 210 H Calcium 7.9 L (4) UTI (urinary tract infection) Hematuria presence: with hematuria Urinary tract infection type: site unspecified Qualified Code(s): N39.0 - Urinary tract infection, site not specified; R31.9 - Hematuria, unspecified
--- NOTE | 2023-08-05 16:21 | XRay Report ---
XR chest 1V portable CLINICAL HISTORY: fever TECHNIQUE: Single frontal radiograph of the chest was obtained. Comparison: Comparison is made to chest radiograph 07/31/2023 FINDINGS: No lines and tubes are seen. Cardiomegaly is noted. Scattered airspace opacities are seen. There is p rominence of pulmonary vasculature. No evidence of pleural effusion or pneumothorax. IMPRESSION: Scattered airspace opacities may represent multifocal pneumonia. Cardiomegaly and mild pulmonary edilberto a ACT 112: Negative or not required by law. Electronically signed by: Tiburcio Casey M.D. 08/05/2023 4:20 PM
[2023-08-05] MEDS: DAPTOmycin 625 MG in SYRINGE 0 ML IV SCH (17:19)
[2023-08-05] MEDS: CEFEPIME 2,000 MG in SYRINGE 0 ML IV ONE (17:19)
[2023-08-05] MEDS: METOPROLOL TARTRATE 50 MG TAB PO SCH (21:12)
[2023-08-05 22:51] LABS: Appearance Urine Cloudy (Clear); Bacteria Urine Automated Negative (Negative); Bilirubin Urine Negative (Negative); Blood Urine 2+ (Negative); Color Urine Yellow; Glucose Urine UA Negative (Negative); Ketones Urine Negative (Negative); Leukocyte Esterase Urine 2+ (Negative); Nitrite Urine Negative (Negative); Protein Urine 1+ (Negative); RBC Urine Automated >30 /hpf (0-4); Specific Gravity Urine 1.024 (1.000-1.030); Urobilinogen Urine Negative (Negative); WBC Urine Automated >30 /hpf (0-5)
[2023-08-05 23:02] LABS: Cast Urine Automated 0 /lpf (0-5)
[2023-08-06] MEDS: CEFEPIME 1,000 MG in SYRINGE 0 ML IV SCH (03:55)
[2023-08-06 06:12] LABS: Hematocrit (blood only) 30.1 % (37.0-47.0); Hemoglobin 10.1 g/dl (12.0-16.0); Mean Corpuscular Hemoglobin 28.9 pg (25.0-34.0); Mean Corpuscular Hgb Conc 33.6 g/dL (32.0-36.0); Mean Corpuscular Volume 86.2 fL (80.0-100.0); Mean Platelet Volume 11.8 fL (9.4-12.4); Platelet Count 185 K/uL (130-400); RDW Coefficient of Variation 16.7 % (11.5-14.5); RDW Standard Deviation 51.8 fL (36.4-46.3); Red Blood Count 3.49 M/uL (4.20-5.40); White Blood Count 15.78 K/ul (4.8-10.8)
[2023-08-06 06:18] LABS: INR 2.2 (0.9-1.1); Prothrombin Time 23.4 Seconds (9.0-12.0)
[2023-08-06 06:20] LABS: BUN Creatinine Ratio 26.8 (10-20); Calcium 8.2 mg/dl (8.6-10.3); Creatinine Clr Calc Pharmacy 43.7 ml/min; Est GFR (African American) 42.4 ml/min; Est GFR (Non-African American) 36.5 ml/min; Magnesium 1.7 mg/dl (1.7-2.4); Potassium 4.7 mmol/L (3.5-5.1)
[2023-08-06] MEDS: AMIODARONE 200 MG TAB PO SCH (08:27)
--- NOTE | 2023-08-06 16:01 | Hospitalist Progress Note ---
Date of Service August 06, 2023 Assessment & Plan (1) Sepsis: Plan: Septic shock Complicated UTI E. coli bacteremia Obstructive uropathy --CT ABD: 1.4 x 0.6 cm proximal right ureteral calculus results in mild right hydronephrosis with perinephric stranding. No additional ureteral calculi. Small amount of gas within the right collecting system. Given gas within the bladder, this gas could be due to recent procedure/instrumentation. An infectious etio logy cannot be excluded and could be correlated with urinalysis. Bilateral nephrolithiasis. No left hydronephrosis. No bowel obstruction. Colonic diverticulosis. No evidence for acute diverticulitis. --S/P Cystoscopy with right retrograde Pyelogram, Aspiration, right Ureteral Stent Placement by on 07/30/23 -- Blood culture growing E. coli --Urine culture growing Enterococcus faecalis VRE, E. coli, Proteus mirabilis --Repeat blood cultures pending -- Off pressors Appreciate critical care, urology and infectious disease Discontinue IV fluids Was changed to IV ampicillin per ID--need to complete 14-day course.. Given development of fever and worsening leukocytosis, will broaden IV antibiotics to daptomycin and cefepime Monitor volume status Continue PT/OT Needs follow-up with urology on discharge Mild persistent leukocytosis Continue current management Possible pneumonia --CXR:Scattered airspace opacities may represent multifocal pneumonia. Cardiome harriett and mild pulmonary edema Procalcitonin trending down Continue cefepime as above (2) Hydronephrosis with renal and ureteral calculous obstruction: Plan: Management as above Chronic hyponatremia Sodium 133 today Monitor (3) SAJAN (acute kidney injury): Plan: SAJAN on CKD III Likely multifactorial secondary to ATN, obstructive uropathy, dehydration due to diarrhea Cr 4.2>3.5>2.8>1.6>1.4 Avoid nephrotoxic agents as able Monitor renal function (4) UTI (urinary tract infection): Plan: As above (5) Adenovirus infection: Plan: Complicating sepsis Conservative management Supplemental oxygen as needed (6) Diarrhea: Plan: Bio fire positive for adenovirus Continue supportive care Will check stool studies if recurrent Antibiotics likely contributing as well (7) CKD (chronic kidney disease), stage III: Plan: Management as above (8) PAF (paroxysmal atrial fibrillation): Plan: Supratherapeutic INR--resolved INR 2.2 today Continue amiodarone, metoprolol Resume Coumadin today Monitor INR (9) (HFpEF) heart failure with preserved ejection fraction: Plan: Echo 01/2023-EF 55 to 59%, moderate aortic stenosis, mild tricuspid regurgitation Diuretics initially held due to SAJAN/sepsis Resume Aldactone today (10) Type II diabetes mellitus: Plan: Hgb A1c 6.3 07/2023 Hold oral agents and Ozempic and utilize NovoLog per protocol while hospitalized Monitor BGs (11) Gout: Plan: Hold allopurinol for now due to SAJAN (12) HTN (hypertension): Plan: Held lisinopril and amlodipine Monitor BP (13) Hypothyroid: Plan: Chronic, stable Continue levothyroxine (14) Sleep apnea: Plan: CPAP as per home settings DVT Px Coumadin CODE STATUS Full Code Admission and Anticipated Discharge Date Admission Date: July 30, 2023 Subjective Patient is seen and examined at bedside States having bladder spasms overnight resulting in poor sleep Admits to having minimal cough Also reports chronic arthritic pain Afebrile today Denies any chest pain, dyspnea, nausea, vomiting, abdominal pain Review of Systems Review of Systems: All systems reviewed & are unremarkable except as noted in Subjective Physical Exam Physical Exam: Physical Exam: Vitals signs as noted above General Appearance:Obese, no apparent distress, ill appearing Head: normocephalic, Atraumatic Eyes: normal inspection, EOMI Neck: supple, Trachea midline Respiratory/Chest: Decreased breath sounds, basal crackles, No accessory muscle use Cardiovascular: S1, S2, No murmur Abdomen/GI:Soft, Non tender, Bowel sounds present Extremities/Musculoskeletal:normal inspection, 1-2+ LE edema, RLE small wound, Chronic venous stasis changes Neurologic/Psych:AAOX3, grossly no focal neurological deficits Skin: normal color, warm Results & Data Results & Data Vital Signs (Past 12 Hours) Vital Signs Temp Pulse Pulse Resp BP Pulse Ox O2 Del Method 08/06/23 11:11 36.7 C 72 18 101/43 L 92 Nasal Cannula 08/06/23 10:00 76 08/06/23 08:28 Nasal Cannula 08/06/23 07:50 36.7 C 81 18 146/84 H 92 Nasal Cannula O2 Flow Rate 08/06/23 11:11 1 08/06/23 10:00 08/06/23 08:28 1 08/06/23 07:50 Laboratory Results Short CBC 08/06/23 Range/Units 05:11 WBC 15.78 H (4.8-10.8) K/ul Hgb 10.1 L (12.0-16.0) g/dl Hct 30.1 L (37.0-47.0) % Plt Count 185 (130-400) K/uL BMP 08/06/23 05:11 Sodium 133 L Potassium 4.7 Chloride 108 H Carbon Dioxide 18 L BUN 38 H Creatinine 1.42 H Glucose 131 H Calcium 8.2 L Urine 08/05/23 Range/Units 22:00 Urine Color Yellow Urine Appearance Cloudy A (Clear) Urine pH 5.0 (4.5-7.5) Ur Specific [place] 1.024 (1.000-1.030) Urine Protein 1+ H (Negative) Urine Glucose (UA) Negative (Negative) (4) UTI (urinary tract infection) Hematuria presence: with hematuria Urinary tract infection type: site unspecified Qualified Code(s): N39.0 - Urinary tract infection, site not specified; R31.9 - Hematuria, unspecified
[2023-08-06] MEDS: WARFARIN SOD 2 MG TAB PO SCH (17:10)
[2023-08-06] MEDS: PHENAZOPYRIDINE HCL 100 MG TAB PO PRN (17:11)
[2023-08-06] MEDS: SPIRONOLACTONE 25 MG TAB PO SCH (17:25)
[2023-08-07 07:45] LABS: Hematocrit (blood only) 27.9 % (37.0-47.0); Hemoglobin 9.1 g/dl (12.0-16.0); Mean Corpuscular Hgb Conc 32.6 g/dL (32.0-36.0); Mean Corpuscular Volume 88.9 fL (80.0-100.0); Mean Platelet Volume 11.4 fL (9.4-12.4); Platelet Count 223 K/uL (130-400); RDW Coefficient of Variation 16.4 % (11.5-14.5); RDW Standard Deviation 53.7 fL (36.4-46.3); Red Blood Count 3.14 M/uL (4.20-5.40); White Blood Count 14.26 K/ul (4.8-10.8)
[2023-08-07 07:52] LABS: BUN Creatinine Ratio 26.3 (10-20); Calcium 8.3 mg/dl (8.6-10.3); Creatinine Clr Calc Pharmacy 46.5 ml/min; Est GFR (African American) 44.2 ml/min; Est GFR (Non-African American) 38.2 ml/min; Potassium 4.8 mmol/L (3.5-5.1)
[2023-08-07 07:54] LABS: INR 1.9 (0.9-1.1); Prothrombin Time 19.5 Seconds (9.0-12.0)
[2023-08-07] MEDS: FUROSEMIDE INJ 20 MG/2 ML VIAL IV SCH (10:43)
--- NOTE | 2023-08-07 14:30 | Hospitalist Progress Note ---
Date of Service August 07, 2023 Assessment & Plan (1) Sepsis: Plan: Septic shock Complicated UTI E. coli bacteremia Obstructive uropathy --CT ABD: 1.4 x 0.6 cm proximal right ureteral calculus results in mild right hydronephrosis with perinephric stranding. No additional ureteral calculi. Small amount of gas within the right collecting system. Given gas within the bladder, this gas could be due to recent procedure/instrumentation. An infectious etio logy cannot be excluded and could be correlated with urinalysis. Bilateral nephrolithiasis. No left hydronephrosis. No bowel obstruction. Colonic diverticulosis. No evidence for acute diverticulitis. --S/P Cystoscopy with right retrograde Pyelogram, Aspiration, right Ureteral Stent Placement by on 07/30/23 -- Blood culture growing E. coli --Urine culture growing Enterococcus faecalis VRE, E. coli, Proteus mirabilis --Repeat blood cultures negative to date -- Off pressors Appreciate critical care, urology and infectious disease Discontinued IV fluids Was changed to IV ampicillin per ID--need to complete 14-day course.. Given development of fever and worsening leukocytosis, will broaden IV antibiotics to daptomycin and cefepime Monitor volume status Continue PT/OT Needs follow-up with urology on discharge Stable leukocytosis Titrate antibiotics as able Possible pneumonia --CXR:Scattered airspace opacities may represent multifocal pneumonia. Cardio megaly and mild pulmonary edema Procalcitonin trending down Continue cefepime as above (2) Hydronephrosis with renal and ureteral calculous obstruction: Plan: Management as above Chronic hyponatremia Sodium 135 today Monitor (3) SAJAN (acute kidney injury): Plan: SAJAN on CKD III Likely multifactorial secondary to ATN, obstructive uropathy, dehydration due to diarrhea Cr 4.2>3.5>2.8>1.6>1.3 Avoid nephrotoxic agents as able Monitor renal function (4) UTI (urinary tract infection): Plan: As above (5) Adenovirus infection: Plan: Complicating sepsis Conservative management Supplemental oxygen as needed (6) Diarrhea: Plan: Bio fire positive for adenovirus Continue supportive care Will check stool studies if recurrent Antibiotics likely contributing as well (7) CKD (chronic kidney disease), stage III: Plan: Management as above (8) PAF (paroxysmal atrial fibrillation): Plan: Supratherapeutic INR--resolved INR 1.9 today Continue amiodarone, metoprolol Adjust Coumadin dose as needed Monitor INR (9) (HFpEF) heart failure with preserved ejection fraction: Plan: Echo 01/2023-EF 55 to 59%, moderate aortic stenosis, mild tricuspid regurgitation Diuretics initially held due to SAJAN/sepsis Resumed Aldactone Given increased volume overload, will start on IV Lasix Transition to bumetanide as able (10) Type II diabetes mellitus: Plan: Hgb A1c 6.3 07/2023 Hold oral agents and Ozempic and utilize NovoLog per protocol while hospitalized Monitor BGs (11) Gout: Plan: Hold allopurinol for now due to SAJAN (12) HTN (hypertension): Plan: Held lisinopril and amlodipine Monitor BP (13) Hypothyroid: Plan: Chronic, stable Continue levothyroxine (14) Sleep apnea: Plan: CPAP as per home settings DVT Px Coumadin CODE STATUS Full Code Admission and Anticipated Discharge Date Admission Date: July 30, 2023 Subjective Patient is seen and examined at bedside Subjectively feels better today Noted worsening bilateral upper extremity swelling Updated patient's daughter over the phone Offers no new complaints otherwise Chronic arthritic pain Afebrile today Denies any chest pain, dyspnea, nausea, vomiting, abdominal pain Review of Systems Review of Systems: All systems reviewed & are unremarkable except as noted in Subjective Physical Exam Physical Exam: Physical Exam: Vitals signs as noted above General Appearance:Obese, no apparent distress, ill appearing Head: normocephalic, Atraumatic Eyes: normal inspection, EOMI Neck: supple, Trachea midline Respiratory/Chest: Decreased breath sounds, basal crackles, No accessory muscle use Cardiovascular: S1, S2, No murmur Abdomen/GI:Soft, Non tender, Bowel sounds present Extremities/Musculoskeletal:normal inspection, 2+ LE and UE edema, RLE small wound, Chronic venous stasis changes Neurologic/Psych:AAOX3, grossly no focal neurological deficits Skin: normal color, warm Results & Data Results & Data Vital Signs (Past 12 Hours) Vital Signs Temp Pulse Pulse Resp BP BP BP 08/07/23 11:32 36.5 C 73 18 119/65 08/07/23 09:48 72 08/07/23 08:52 08/07/23 07:42 36.7 C 77 18 114/63 08/07/23 02:44 36.8 C 74 16 131/71 Pulse Ox O2 Del Method O2 Flow Rate 08/07/23 11:32 90 Room Air 08/07/23 09:48 08/07/23 08:52 Nasal Cannula 1 08/07/23 07:42 94 Room Air 08/07/23 02:44 93 Room Air Laboratory Results Short CBC 08/07/23 Range/Units 07:00 WBC 14.26 H (4.8-10.8) K/ul Hgb 9.1 L (12.0-16.0) g/dl Hct 27.9 L (37.0-47.0) % Plt Count 223 (130-400) K/uL BMP 08/07/23 07:00 Sodium 135 L Potassium 4.8 Chloride 110 H Carbon Dioxide 22 BUN 36 H Creatinine 1.37 H Glucose 101 H Calcium 8.3 L (4) UTI (urinary tract infection) Hematuria presence: with hematuria Urinary tract infection type: site unspecified Qualified Code(s): N39.0 - Urinary tract infection, site not specified; R31.9 - Hematuria, unspecified
[2023-08-07] MEDS: WARFARIN SOD 3 MG TAB PO SCH (17:21)
[2023-08-08 06:12] LABS: BUN Creatinine Ratio 29.8 (10-20); Calcium 8.1 mg/dl (8.6-10.3); Creatinine Clr Calc Pharmacy 49.4 ml/min; Est GFR (African American) 49.9 ml/min; Est GFR (Non-African American) 43.1 ml/min; Potassium 4.3 mmol/L (3.5-5.1)
[2023-08-08 06:23] LABS: INR 1.7 (0.9-1.1); Prothrombin Time 17.7 Seconds (9.0-12.0)
--- NOTE | 2023-08-08 08:58 | Pharmacy Report ---
Pharmacy Glycemic Short Note 2 - Date of Service August 08, 2023 - Glycemic Short BSG Results (Last 24 hours): 08/07/23 08/07/23 08/07/23 11:03 16:10 20:04 Glucose POC Glucose 187 H 202 H 261 H 08/08/23 08/08/23 05:27 07:07 Glucose 131 H POC Glucose 134 H OUTPATIENT ANTIDIABETIC REGIMEN: * Metformin 500 mg PO AM * Repaglinide 0.5 mg PO TID * Ozempic 1 mg SC every Wednesday ASSESSMENT: 08/07: * Received 44 units of insulin yesterday, 5 basal + 39 bolus. BSGs were: [phone] mg/dL. * Fasting BSG 134 mg/dL this AM. Trending up. Will increase basal slightly this AM. * Tightened CF & CR given trend upward in postprandials yesterday. 08/04: * BSGs yesterday were [phone] mg/dl. Fasting BSG today =162 mg/dl. * Since fasting BSG is trending up and post-prandial BSGs could improve, added 5 units of basal insulin this morning which is less than a stress of 1. * Novolog parameters continued the same. 08/01 * BSGs acceptable over last 24 hours * Amiodarone gttmixed in D5W continues; pressors weaned off * Fasting BSG 95 this AM with 15 units basal on board - will continue to scale dose to lessen risk of hypoglycemia * Post-prandial BSGs at goal 2 of 3 yesterday - will lessen Novolog doses PLAN FOR INPATIENT GLYCEMIC CONTROL: * Hold outpatient oral diabetes medications * Basal insulin * Lantus 8 units SC AM * Bolus insulin * NovoLog per scale ACHS or Q6hrs while NPO * Goal Range: Low 110 mg/dL - High 140 mg/dL * Correction Factor: 15 mg/dL/unit * Nutritional / Prandial insulin per carb ratio of 1 unit per 5 grams CHO consumed
[2023-08-08] MEDS: LANTUS PER UNIT CHARGE SC SCH (09:10)
[2023-08-08] MEDS: CEFEPIME 1,000 MG in SYRINGE 0 ML IV SCH (11:18)
--- NOTE | 2023-08-08 15:48 | Hospitalist Progress Note ---
Date of Service August 08, 2023 Assessment & Plan (1) Sepsis: Plan: Septic shock Complicated UTI E. coli bacteremia Obstructive uropathy --CT ABD: 1.4 x 0.6 cm proximal right ureteral calculus results in mild right hydronephrosis with perinephric stranding. No additional ureteral calculi. Small amount of gas within the right collecting system. Given gas within the bladder, this gas could be due to recent procedure/instrumentation. An infectious etio logy cannot be excluded and could be correlated with urinalysis. Bilateral nephrolithiasis. No left hydronephrosis. No bowel obstruction. Colonic diverticulosis. No evidence for acute diverticulitis. --S/P Cystoscopy with right retrograde Pyelogram, Aspiration, right Ureteral Stent Placement by on 07/30/23 -- Blood culture growing E. coli --Urine culture growing Enterococcus faecalis VRE, E. coli, Proteus mirabilis --Repeat blood cultures negative to date -- Off pressors Appreciate critical care, urology and infectious disease Discontinued IV fluids Was changed to IV ampicillin per ID--need to complete 14-day course.. Given development of fever and worsening leukocytosis, will broaden IV antibiotics to daptomycin and cefepime Monitor volume status Continue PT/OT Needs follow-up with urology on discharge Stable leukocytosis Blood pressure improving Repeat blood cultures remain negative Possible pneumonia --CXR:Scattered airspace opacities may represent multifocal pneumonia. Cardiomegaly and mild pulmonary edema Procalcitonin trending down Continue cefepime as above (2) Hydronephrosis with renal and ureteral calculous obstruction: Plan: Management as above Chronic hyponatremia Sodium 134 today Monitor (3) SAJAN (acute kidney injury): Plan: SAJAN on CKD III Likely multifactorial secondary to ATN, obstructive uropathy, dehydration due to diarrhea Cr 4.2>3.5>2.8>1.6>1.3>1.2 Avoid nephrotoxic agents as able Monitor renal function (4) UTI (urinary tract infection): Plan: As above (5) Adenovirus infection: Plan: Complicating sepsis Conservative management Supplemental oxygen as needed (6) Diarrhea: Plan: Bio fire positive for adenovirus Continue supportive care Will check stool studies if recurrent Antibiotics likely contributing as well (7) CKD (chronic kidney disease), stage III: Plan: Management as above (8) PAF (paroxysmal atrial fibrillation): Plan: Supratherapeutic INR--resolved INR 1.7 today Continue amiodarone, metoprolol Adjust Coumadin dose as needed Monitor INR Will increase Coumadin to 5 mg today (9) (HFpEF) heart failure with preserved ejection fraction: Plan: Echo 01/2023-EF 55 to 59%, moderate aortic stenosis, mild tricuspid regurgitation Diuretics initially held due to SAJAN/sepsis Resumed Aldactone Given increased volume overload, started on IV Lasix Transition to bumetanide as able Continue IV diuresis for now (10) Type II diabetes mellitus: Plan: Hgb A1c 6.3 07/2023 Hold oral agents and Ozempic and utilize NovoLog per protocol while hospitalized Monitor BGs (11) Gout: Plan: Hold allopurinol for now due to SAJAN (12) HTN (hypertension): Plan: Held lisinopril and amlodipine Monitor BP (13) Hypothyroid: Plan: Chronic, stable Continue levothyroxine (14) Sleep apnea: Plan: CPAP as per home settings DVT Px Coumadin CODE STATUS Full Code Disposition PT OT prior to discharge Admission and Anticipated Discharge Date Admission Date: July 30, 2023 Subjective Patient is seen and examined at bedside Diuresing well Upper extremity swelling slowly improving Offers no new complaints Continues to have some chronic arthritic pain Renal function stable Denies any chest pain, dyspnea, nausea, vomiting, abdominal pain Review of Systems Review of Systems: All systems reviewed & are unremarkable except as noted in Subjective Physical Exam Physical Exam: Physical Exam: Vitals signs as noted above General Appearance:Obese, no apparent distress, ill appearing Head: normocephalic, Atraumatic Eyes: normal inspection, EOMI Neck: supple, Trachea midline Respiratory/Chest: Decreased breath sounds, basal crackles, No accessory muscle use Cardiovascular: S1, S2, No murmur Abdomen/GI:Soft, Non tender, Bowel sounds present Extremities/Musculoskeletal:normal inspection, 2+ LE and UE edema, RLE small wound, Chronic venous stasis changes Neurologic/Psych:AAOX3, grossly no focal neurological deficits Skin: normal color, warm Results & Data Results & Data Vital Signs (Past 12 Hours) Vital Signs Temp Pulse Pulse Resp BP Pulse Ox O2 Del Method 08/08/23 15:07 36.7 C 76 18 138/72 94 Room Air 08/08/23 15:06 73 08/08/23 11:07 36.7 C 78 18 111/67 94 Room Air 08/08/23 08:00 76 08/08/23 08:00 Room Air 08/08/23 07:04 36.7 C 79 18 113/52 L 93 Room Air Laboratory Results [facility] 08/08/23 05:27 Sodium 134 L Potassium 4.3 Chloride 106 Carbon Dioxide 21 BUN 37 H Creatinine 1.24 H Glucose 131 H Calcium 8.1 L (4) UTI (urinary tract infection) Hematuria presence: with hematuria Urinary tract infection type: site unspecified Qualified Code(s): N39.0 - Urinary tract infection, site not specified; R31.9 - Hematuria, unspecified
[2023-08-08] MEDS: WARFARIN SOD 5 MG TAB PO SCH (17:22)
[2023-08-09 07:54] LABS: Hematocrit (blood only) 28.5 % (37.0-47.0); Hemoglobin 9.4 g/dl (12.0-16.0); Mean Corpuscular Hemoglobin 28.8 pg (25.0-34.0); Mean Corpuscular Volume 87.4 fL (80.0-100.0); Mean Platelet Volume 10.6 fL (9.4-12.4); Nucleated RBC # (auto) 0.02 K/uL (0.00-0.12); Nucleated RBC % (auto) 0.1 %; Platelet Count 320 K/uL (130-400); RDW Coefficient of Variation 16.5 % (11.5-14.5); RDW Standard Deviation 53.2 fL (36.4-46.3); Red Blood Count 3.26 M/uL (4.20-5.40)
[2023-08-09 08:10] LABS: BUN Creatinine Ratio 30.6 (10-20); Calcium 8.4 mg/dl (8.6-10.3); Creatinine Clr Calc Pharmacy 50.6 ml/min; Est GFR (African American) 51.4 ml/min; Est GFR (Non-African American) 44.4 ml/min; Magnesium 1.4 mg/dl (1.7-2.4); Potassium 4.3 mmol/L (3.5-5.1)
[2023-08-09 08:17] LABS: INR 1.8 (0.9-1.1); Prothrombin Time 18.8 Seconds (9.0-12.0)
[2023-08-09] MEDS: MAGNESIUM SULFATE / D5W 1 GM/100 ML BAG IV ONE ×2 (09:00→11:38)
--- NOTE | 2023-08-09 09:59 | Pharmacy Report ---
Pharmacy Glycemic Short Note 2 - Date of Service August 09, 2023 - Glycemic Short BSG Results (Last 24 hours): 08/08/23 08/08/23 08/08/23 11:07 16:08 20:10 Glucose POC Glucose 176 H 136 H 171 H 08/09/23 08/09/23 07:28 07:33 Glucose 137 H POC Glucose 135 H OUTPATIENT ANTIDIABETIC REGIMEN: * Metformin 500 mg PO AM * Repaglinide 0.5 mg PO TID * Ozempic 1 mg SC every Wednesday ASSESSMENT: 08/08: * BSGs well controlled over last 24 hrs * 47 units SQ given over last 24 hrs while tolerating a diet * Fasting BSG 135 this AM with 8 units basal on board - will continue * Post prandial BSGs well controlled with current Novolog CR/CF 08/07: * Received 44 units of insulin yesterday, 5 basal + 39 bolus. BSGs were: [phone] mg/dL. * Fasting BSG 134 mg/dL this AM. Trending up. Will increase basal slightly this AM. * Tightened CF & CR given trend upward in postprandials yesterday. 08/04: * BSGs yesterday were [phone] mg/dl. Fasting BSG today =162 mg/dl. * Since fasting BSG is trending up and post-prandial BSGs could improve, added 5 units of basal insulin this morning which is less than a stress of 1. * Novolog parameters continued the same. 08/01 * BSGs acceptable over last 24 hours * Amiodarone gttmixed in D5W continues; pressors weaned off * Fasting BSG 95 this AM with 15 units basal on board - will continue to scale dose to lessen risk of hypoglycemia * Post-prandial BSGs at goal 2 of 3 yesterday - will lessen Novolog doses PLAN FOR INPATIENT GLYCEMIC CONTROL: * Hold outpatient oral diabetes medications * Basal insulin * Lantus 8 units SC AM * Bolus insulin * NovoLog per scale ACHS or Q6hrs while NPO * Goal Range: Low 110 mg/dL - High 140 mg/dL * Correction Factor: 15 mg/dL/unit * Nutritional / Prandial insulin per carb ratio of 1 unit per 5 grams CHO consumed
--- NOTE | 2023-08-09 16:30 | Hospitalist Progress Note ---
Date of Service August 09, 2023 Assessment & Plan (1) Sepsis: Plan: Septic shock Complicated UTI E. coli bacteremia Obstructive uropathy --CT ABD: 1.4 x 0.6 cm proximal right ureteral calculus results in mild right hydronephrosis with perinephric stranding. No additional ureteral calculi. Small amount of gas within the right collecting system. Given gas within the bladder, this gas could be due to recent procedure/instrumentation. An infectious etio logy cannot be excluded and could be correlated with urinalysis. Bilateral nephrolithiasis. No left hydronephrosis. No bowel obstruction. Colonic diverticulosis. No evidence for acute diverticulitis. --S/P Cystoscopy with right retrograde Pyelogram, Aspiration, right Ureteral Stent Placement by on 07/30/23 -- Blood culture growing E. coli --Urine culture growing Enterococcus faecalis VRE, E. coli, Proteus mirabilis --Repeat blood cultures negative to date -- Off pressors Appreciate critical care, urology and infectious disease Discontinued IV fluids Was changed to IV ampicillin per ID--need to complete 14-day course.. Given development of fever and worsening leukocytosis, will broaden IV antibiotics to daptomycin and cefepime Monitor volume status Continue PT/OT Needs follow-up with urology on discharge Leukocytosis trending down Remains afebrile Likely discharge to rehab facility in 1 to 2 days Possible pneumonia --CXR:Scattered airspace opacities may represent multifocal pneumonia. Cardiomegaly and mild pulmonary edema Procalcitonin trending down Continue cefepime as above (2) Hydronephrosis with renal and ureteral calculous obstruction: Plan: Management as above Chronic hyponatremia Sodium 132 today Monitor (3) SAJAN (acute kidney injury): Plan: SAJAN on CKD III Likely multifactorial secondary to ATN, obstructive uropathy, dehydration due to diarrhea Cr 4.2>3.5>2.8>1.6>1.3>1.2 Avoid nephrotoxic agents as able Monitor renal function (4) UTI (urinary tract infection): Plan: As above (5) Adenovirus infection: Plan: Complicating sepsis Conservative management Supplemental oxygen as needed (6) Diarrhea: Plan: Bio fire positive for adenovirus Continue supportive care Will check stool studies if recurrent Antibiotics likely contributing as well (7) CKD (chronic kidney disease), stage III: Plan: Management as above (8) PAF (paroxysmal atrial fibrillation): Plan: Supratherapeutic INR--resolved INR 1.8 today Continue amiodarone, metoprolol Adjust Coumadin dose as needed Monitor INR Will give 5 mg Coumadin today (9) (HFpEF) heart failure with preserved ejection fraction: Plan: Echo 01/2023-EF 55 to 59%, moderate aortic stenosis, mild tricuspid regurgitation Diuretics initially held due to SAJAN/sepsis Resumed Aldactone Given increased volume overload, given IV Lasix Plan to transition to oral diuretics tomorrow (10) Type II diabetes mellitus: Plan: Hgb A1c 6.3 07/2023 Hold oral agents and Ozempic and utilize NovoLog per protocol while hospitalized Monitor BGs (11) Gout: Plan: Hold allopurinol for now due to SAJAN (12) HTN (hypertension): Plan: Held lisinopril and amlodipine Monitor BP (13) Hypothyroid: Plan: Chronic, stable Continue levothyroxine (14) Sleep apnea: Plan: CPAP as per home settings DVT Px Coumadin CODE STATUS Full Code Disposition SNF as able Admission and Anticipated Discharge Date Admission Date: July 30, 2023 Subjective Patient is seen and examined at bedside States feeling tired today after having PT evaluation Continues to diurese well No new complaints Saturating low 90s on room air Renal function stable Denies any chest pain, dyspnea, nausea, vomiting, abdominal pain Review of Systems Review of Systems: All systems reviewed & are unremarkable except as noted in Subjective Physical Exam Physical Exam: Physical Exam: Vitals signs as noted above General Appearance:Obese, no apparent distress, ill appearing Head: normocephalic, Atraumatic Eyes: normal inspection, EOMI Neck: supple, Trachea midline Respiratory/Chest: Decreased breath sounds, basal crackles, No accessory muscle use Cardiovascular: S1, S2, No murmur Abdomen/GI:Soft, Non tender, Bowel sounds present Extremities/Musculoskeletal:normal inspection, 2+ LE and UE edema, RLE small wound, Chronic venous stasis changes Neurologic/Psych:AAOX3, grossly no focal neurological deficits Skin: normal color, warm Results & Data Results & Data Vital Signs (Past 12 Hours) Vital Signs Temp Pulse Resp BP Pulse Ox O2 Del Method 08/09/23 15:11 36.8 C 81 18 130/71 90 Room Air 08/09/23 11:14 36.7 C 78 18 135/76 91 Room Air 08/09/23 07:49 36.7 C 74 18 128/60 91 Room Air Laboratory Results Short CBC 08/09/23 Range/Units 07:33 WBC 13.40 H (4.8-10.8) K/ul Hgb 9.4 L (12.0-16.0) g/dl Hct 28.5 L (37.0-47.0) % Plt Count 320 (130-400) K/uL BMP 08/09/23 07:33 Sodium 132 L Potassium 4.3 Chloride 102 Carbon Dioxide 25 BUN 37 H Creatinine 1.21 H Glucose 137 H Calcium 8.4 L (4) UTI (urinary tract infection) Hematuria presence: with hematuria Urinary tract infection type: site unspecified Qualified Code(s): N39.0 - Urinary tract infection, site not specified; R31.9 - Hematuria, unspecified
[2023-08-09] MEDS: CEFEPIME 2,000 MG in SYRINGE 0 ML IV SCH (16:38)
[2023-08-10 07:44] LABS: Hematocrit (blood only) 27.5 % (37.0-47.0); Hemoglobin 9.3 g/dl (12.0-16.0); Mean Corpuscular Hemoglobin 28.9 pg (25.0-34.0); Mean Corpuscular Hgb Conc 33.8 g/dL (32.0-36.0); Mean Corpuscular Volume 85.4 fL (80.0-100.0); Mean Platelet Volume 10.7 fL (9.4-12.4); Platelet Count 328 K/uL (130-400); RDW Coefficient of Variation 16.3 % (11.5-14.5); RDW Standard Deviation 50.5 fL (36.4-46.3); Red Blood Count 3.22 M/uL (4.20-5.40); White Blood Count 12.58 K/ul (4.8-10.8)
[2023-08-10 07:57] LABS: BUN Creatinine Ratio 31.7 (10-20); Calcium 8.4 mg/dl (8.6-10.3); Creatinine Clr Calc Pharmacy 49.8 ml/min; Est GFR (African American) 50.4 ml/min; Est GFR (Non-African American) 43.5 ml/min; Magnesium 1.7 mg/dl (1.7-2.4); Potassium 4.7 mmol/L (3.5-5.1)
[2023-08-10 08:08] LABS: Prothrombin Time 20.6 Seconds (9.0-12.0)
[2023-08-10] MEDS: LANTUS PER UNIT CHARGE SC SCH (08:34)
[2023-08-10] MEDS: BUMETANIDE 1 MG TAB PO SCH (08:34)
[2023-08-10] MEDS: AMPICILLIN 2,000 MG in SODIUM CHLOR 0.9% MINI-B 100 ML IV SCH (11:09)
[2023-08-10] MEDS: MAGNESIUM CHLORIDE W/CALCIUM 64MG DELAYED REL TAB PO SCH (11:09)
--- NOTE | 2023-08-10 12:54 | Hospitalist Progress Note ---
Date of Service August 10, 2023 Assessment & Plan (1) Sepsis: Plan: Septic shock Complicated UTI E. coli bacteremia Obstructive uropathy --CT ABD: 1.4 x 0.6 cm proximal right ureteral calculus results in mild right hydronephrosis with perinephric stranding. No additional ureteral calculi. Small amount of gas within the right collecting system. Given gas within the bladder, this gas could be due to recent procedure/instrumentation. An infectious etio logy cannot be excluded and could be correlated with urinalysis. Bilateral nephrolithiasis. No left hydronephrosis. No bowel obstruction. Colonic diverticulosis. No evidence for acute diverticulitis. --S/P Cystoscopy with right retrograde Pyelogram, Aspiration, right Ureteral Stent Placement by on 07/30/23 -- Blood culture growing E. coli --Urine culture growing Enterococcus faecalis VRE, E. coli, Proteus mirabilis --Repeat blood cultures negative to date -- Off pressors Appreciate critical care, urology and infectious disease Discontinued IV fluids Was changed to IV ampicillin per ID--need to complete 14-day course Given development of fever and worsening leukocytosis, will broaden IV antibiotics to daptomycin and cefepime>> transition back to ampicillin--needs 6 more days to complete treatment Monitor volume status Continue PT/OT Needs follow-up with urology on discharge Discussed with urology today: Plans for outpatient definitive stone treatment Plan to discharge to rehab facility today Possible pneumonia --CXR:Scattered airspace opacities may represent multifocal pneumonia. Cardiomegaly and mild pulmonary edema Procalcitonin trended down Received Cefepime>> ampicillin as above (2) Hydronephrosis with renal and ureteral calculous obstruction: Plan: Management as above Chronic hyponatremia Sodium 131 today Monitor (3) SAJAN (acute kidney injury): Plan: SAJAN on CKD III Likely multifactorial secondary to ATN, obstructive uropathy, dehydration due to diarrhea Cr 4.2>3.5>2.8>1.6>1.3>1.2 Avoid nephrotoxic agents as able Monitor renal function (4) UTI (urinary tract infection): Plan: As above (5) Adenovirus infection: Plan: Complicating sepsis Conservative management Supplemental oxygen as needed (6) Diarrhea: Plan: Bio fire positive for adenovirus Continue supportive care Will check stool studies if recurrent Antibiotics likely contributing as well Resolved (7) CKD (chronic kidney disease), stage III: Plan: Management as above (8) PAF (paroxysmal atrial fibrillation): Plan: Supratherapeutic INR--resolved INR 2.0 today Continue amiodarone, metoprolol Adjust Coumadin dose as needed Monitor INR (9) (HFpEF) heart failure with preserved ejection fraction: Plan: Echo 01/2023-EF 55 to 59%, moderate aortic stenosis, mild tricuspid regurgitation Diuretics initially held due to SAJAN/sepsis Given increased volume overload, given IV Lasix Resumed home diuretics (10) Type II diabetes mellitus: Plan: Hgb A1c 6.3 07/2023 Hold oral agents and Ozempic and utilize NovoLog per protocol while hospitalized Monitor BGs (11) Gout: Plan: Hold allopurinol for now due to SAJAN (12) HTN (hypertension): Plan: Held lisinopril and amlodipine Monitor BP (13) Hypothyroid: Plan: Chronic, stable Continue levothyroxine (14) Sleep apnea: Plan: CPAP as per home settings DVT Px Coumadin CODE STATUS Full Code Disposition SNF Admission and Anticipated Discharge Date Admission Date: July 30, 2023 Subjective Patient is seen and examined at bedside States feeling better today Discussed with urology today No new complaints Has leg pain while changing wound dressing today Denies any chest pain, dyspnea, nausea, vomiting, abdominal pain Plan to discharge to rehab facility today Review of Systems Review of Systems: All systems reviewed & are unremarkable except as noted in Subjective Physical Exam Physical Exam: Physical Exam: Vitals signs as noted above General Appearance:Obese, no apparent distress, ill appearing Head: normocephalic, Atraumatic Eyes: normal inspection, EOMI Neck: supple, Trachea midline Respiratory/Chest: Decreased breath sounds, basal crackles, No accessory muscle use Cardiovascular: S1, S2, No murmur Abdomen/GI:Soft, Non tender, Bowel sounds present Extremities/Musculoskeletal:normal inspection, 2+ LE and UE edema, RLE small wound, Chronic venous stasis changes Neurologic/Psych:AAOX3, grossly no focal neurological deficits Skin: normal color, warm Results & Data Results & Data Vital Signs (Past 12 Hours) Vital Signs Temp Pulse Pulse Resp BP Pulse Ox O2 Del Method 08/10/23 11:32 36.7 C 77 18 140/79 94 Room Air 08/10/23 08:00 69 08/10/23 08:00 Room Air 08/10/23 07:41 36.6 C 71 18 134/82 92 Room Air 08/10/23 03:00 36.7 C 72 16 149/91 H 90 Room Air Laboratory Results Short CBC 08/10/23 Range/Units 07:06 WBC 12.58 H (4.8-10.8) K/ul Hgb 9.3 L (12.0-16.0) g/dl Hct 27.5 L (37.0-47.0) % Plt Count 328 (130-400) K/uL BMP 08/10/23 07:06 Sodium 131 L Potassium 4.7 Chloride 100 Carbon Dioxide 25 BUN 39 H Creatinine 1.23 H Glucose 170 H Calcium 8.4 L (4) UTI (urinary tract infection) Hematuria presence: with hematuria Urinary tract infection type: site unspecified Qualified Code(s): N39.0 - Urinary tract infection, site not specified; R31.9 - Hematuria, unspecified
--- NOTE | 2023-08-10 13:21 | Discharge Summary ---
Date of Service August 10, 2023 Admission HPI Per Admitting Provider 73-year-old female with PMH DM type II, CKD stage III, gout, HLD, hypothyroidism, EDYTA on CPAP, paroxysmal atrial fibrillation on amiodarone and Coumadin, HTN, GERD, obesity, history of CVA, and other problems listed below who presents to the ED for evaluation of diarrhea and generalized weakness. History is obtained from the patient and review of outpatient PCP, nephrology, cardiology records. Patient reports episodes of profuse diarrhea for the past 3 days. Reports that she returned home from a cruise about 11 days ago. Patient reports multiple, uncontrolled episodes of diarrhea. Described as watery and mucousy. Denies bright red bleeding per rectum and dark tarry stools. She reports that she has had a poor appetite however has been able to keep liquids down. She denies nausea and vomiting. No fevers or chills. Denies abdominal pain. No chest pain or shortness of breath. Denies lightheadedness, dizziness, diaphoresis, syncopal events. Reports a mechanical fall yesterday. She called her neighbor who helped her up from the ground. No urinary symptoms. In the ED, patient is slightly tachycardic, otherwise hemodynamically stable. Labs show WBC 17 K, Na+ 128, creatinine 4.2, transaminitis is noted. UA is suggestive of UTI. Bio fire positive for adenovirus. CT ABD/pelvis shows 1.4 x 0.6 cm proximal right ureteral calculus results in mild right hydronephrosis with perinephric stranding. Patient was given IV ceftriaxone and IVF. Urology was contacted by ED provider. Admission Exam Per Admitting Provider Physical Exam Constitutional: WD/WN, vitals as above + obese; no acute distress Eyes: PERRL, conjunctivae normal, anicteric sclerae ENMT: external ear and nose normal, oropharynx normal Respiratory: normal respiratory effort; no respiratory distress Auscultation: + diminished lung sounds (Bilateral bases) Cardiovascular: Rate/Rhythm: regular rate and regular rhythm Vessels: normal peripheral pulses Extremities: no edema Gastrointestinal (Abdomen): normal bowel sounds, soft, nontender, no hepatosplenomegaly Musculoskeletal: no cyanosis or clubbing, extremities motor strength 5/5 Skin: no rashes, warm and dry Neurologic: PERRL, EOMI, accommodation nl, no face palsy, no dysarthria Psychiatric: A+Ox3, euthymic affect Principal Diagnosis Septic shock Complicated urinary tract infection E. coli bacteremia Obstructive uropathy S/P right Ureteral Stent Placement Acute kidney injury Adenovirus infection Discharge Data Allergies Allergy/AdvReac Type Severity Reaction Status Date / Time Penicillins Allergy Intermediate URTICARIA; Verified 07/30/23 16:09 PER PT, CAN TAKE AMOXICILLIN erythromycin base AdvReac Intermediate GI UPSET Verified 07/30/23 16:09 Consultations 07/30/23 16:26 ED Decision to Admit Stat 07/30/23 20:15 Consult Urology Routine 07/31/23 06:56 Consult Family Psychologist Routine 08/02/23 12:59 Consult Infectious Diseases Routine Procedures Performed Operation Date: 07/30/23 18:30 Actual Procedures p Cystoscopy, Retrograde Pyelogram, Aspiration, right Ureteral Stent Placement - Song Edwards, DO Laboratory Results WBC 12.58 K/ul (4.8-10.8) H 08/10/23 07:06 RBC 3.22 M/uL (4.20-5.40) L 08/10/23 07:06 Hgb 9.3 g/dl (12.0-16.0) L 08/10/23 07:06 POC Hgb 9.9 g/dl (12.0-16.0) L 07/31/23 06:15 Hct 27.5 % (37.0-47.0) L 08/10/23 07:06 POC Hct 29 % (37-47) L 07/31/23 06:15 MCV 85.4 fL (80.0-100.0) 08/10/23 07:06 MCH 28.9 pg (25.0-34.0) 08/10/23 07:06 MCHC 33.8 g/dL (32.0-36.0) 08/10/23 07:06 RDW Std Deviation 50.5 fL (36.4-46.3) H 08/10/23 07:06 RDW Coeff of Yvette 16.3 % (11.5-14.5) H 08/10/23 07:06 Plt Count 328 K/uL (130-400) 08/10/23 07:06 MPV 10.7 fL (9.4-12.4) 08/10/23 07:06 Immature Gran % (Auto) 2.4 % 04/03/24 06:47 Neut % (Auto) 84.3 % 08/04/23 06:47 Lymph % (Auto) 7.1 % 08/04/23 06:47 Grainger % (Auto) 5.3 % 08/04/23 06:47 Eos % (Auto) 0.8 % 08/04/23 06:47 Baso % (Auto) 0.1 % 08/04/23 06:47 Neut # (Auto) 11.46 K/uL (1.40-6.50) H 08/04/23 06:47 Lymph # (Auto) 0.97 K/uL (1.20-3.40) L 08/04/23 06:47 Grainger # (Auto) 0.72 K/uL (0.11-0.59) H 08/04/23 06:47 Eos # (Auto) 0.11 K/uL (0.00-0.50) 08/04/23 06:47 Baso # (Auto) 0.01 K/uL (0.00-0.20) 08/04/23 06:47 Immature Gran # (Auto) 0.33 K/uL (0.01-0.20) H 08/04/23 06:47 Absolute Nucleated RBC 0.02 K/uL (0.00-0.12) 08/09/23 07:33 Nucleated RBC % (auto) 0.1 % 08/09/23 07:33 Neutrophils % (Manual) 94 % 07/30/23 11:51 Lymphocytes % (Manual) 1 % 07/30/23 11:51 Monocytes % (Manual) 1 % 07/30/23 11:51 Metamyelocytes % (Man) 4 % 07/30/23 11:51 Neutrophils # (Manual) 16.58 K/uL (1.40-6.50) H 07/30/23 11:51 Total Absolute Neuts 16.58 K/uL (1.4-6.5) H 07/30/23 11:51 Lymphocytes # (Manual) 0.18 K/uL (1.2-3.4) L 07/30/23 11:51 Total Abs Lymphocytes 0.18 K/uL (1.2-3.4) L 07/30/23 11:51 Monocytes # (Manual) 0.18 K/uL (0.11-0.59) 07/30/23 11:51 Metamyelocytes # (Man) 0.71 K/uL (0-0) H 07/30/23 11:51 Toxic Vacuolation 2+ 07/31/23 06:27 Dohle Bodies 1+ 07/31/23 06:27 Echinocytes 3+ 07/31/23 06:27 PT 20.6 Seconds (9.0-12.0) H 08/10/23 07:06 INR 2.0 (0.9-1.1) H 08/10/23 07:06 Sample Site Art Line 07/31/23 06:15 POC pH 7.31 (7.35-7.45) L 07/31/23 06:15 POC pCO2 34 mmHg (35-46) L 07/31/23 06:15 POC pO2 99 mmHg (80-95) H 07/31/23 06:15 POC HCO3 17 lien/L (19-24) L 07/31/23 06:15 POC Total CO2 18 mmol/L (24-31) L 07/31/23 06:15 POC Base Excess -9.0 lien/L (-9-1.8) 07/31/23 06:15 ABG pH 7.37 (7.35-7.45) 07/31/23 06:27 ABG pH (Temp Correct) 7.296 (7.35-7.45) L 07/31/23 06:15 ABG pCO2 29 mmHg (35-46) L 07/31/23 06:27 ABG pCO2 (Temp Corrct 35 mmHg (35-46) 07/31/23 06:15 ABG pO2 76 mmHg (80-95) L 07/31/23 06:27 POC ABG pO2 at Pt Temp 105 07/31/23 06:15 ABG HCO3 17 mmol/L (19-24) L 07/31/23 06:27 POC ABG O2 Sat 97.0 % (90-95) H 07/31/23 06:15 ABG O2 Saturation 97.7 % (90-95) H 07/31/23 06:27 ABG Base Excess -7.1 mEq/L (-9-1.8) 07/31/23 06:27 Damon Test Pos (Pos) 07/31/23 06:27 Oxygen Given 3L 07/31/23 06:27 O2 Delivery Device SimpleMask 07/31/23 06:15 POC Sodium 130 mmol/L (135-144) L 07/31/23 06:15 Sodium 131 mmol/L (136-145) L 08/10/23 07:06 POC Potassium 4.7 mmol/L (3.3-5.0) 07/31/23 06:15 Potassium 4.7 mmol/L (3.5-5.1) 08/10/23 07:06 Chloride 100 mmol/L (98-107) 08/10/23 07:06 Carbon Dioxide 25 mmol/L (21-32) 08/10/23 07:06 Anion Gap 6 (3-11) 08/10/23 07:06 BUN 39 mg/dl (6-23) H 08/10/23 07:06 Creatinine 1.23 mg/dl (0.6-1.2) H 08/10/23 07:06 Est Cr Clr Drug Dosing 49.8 ml/min 08/10/23 07:06 Est GFR ( Amer) 50.4 ml/min 08/10/23 07:06 Est GFR (Non-Af Amer) 43.5 ml/min 08/10/23 07:06 BUN/Creatinine Ratio 31.7 (10-20) H 08/10/23 07:06 Glucose 170 mg/dl (70-99(Fasting)) H 08/10/23 07:06 POC Glucose 187 mg/dl (70-99) H 08/10/23 11:31 POC Glucose (other) 95 mg/dl (70-99) 08/02/23 06:42 Lactate 1.4 mmol/L (0.4-2.0) 07/31/23 06:35 Calcium 8.4 mg/dl (8.6-10.3) L 08/10/23 07:06 Phosphorus 3.7 mg/dl (2.5-4.9) 08/01/23 04:00 Magnesium 1.7 mg/dl (1.7-2.4) 08/10/23 07:06 Total Bilirubin 0.5 mg/dl (0.2-1.0) 08/01/23 04:00 AST 86 U/L (13-39) H 08/01/23 04:00 ALT 93 U/L (7-52) H 08/01/23 04:00 Alkaline Phosphatase 127 U/L (34-104) H 08/01/23 04:00 Total Protein 5.7 gm/dl (6.0-8.3) L 08/01/23 04:00 Albumin 2.4 gm/dl (3.4-5.0) L 08/01/23 04:00 Globulin 3.3 gm/dl (2.5-4.0) 08/01/23 04:00 Albumin/Globulin Ratio 0.7 (0.9-2) L 08/01/23 04:00 Lipase 19 U/L (11-82) 07/30/23 11:51 Procalcitonin 31.10 ng/ml (0-0.5) H 08/06/23 05:11 TSH 0.566 uIu/ml (0.300-4.500) 07/31/23 06:27 HCG, Qual Negative (Negative) 07/30/23 11:51 Random Cortisol 54.42 mcg/dl 07/31/23 06:40 Urine Color Yellow 08/05/23 22:00 Urine Appearance Cloudy (Clear) A 08/05/23 22:00 Urine pH 5.0 (4.5-7.5) 08/05/23 22:00 Ur Specific [place] 1.024 (1.000-1.030) 08/05/23 22:00 Urine Protein 1+ (Negative) H 08/05/23 22:00 Urine Glucose (UA) Negative (Negative) 08/05/23 22:00 Urine Ketones Negative (Negative) 08/05/23 22:00 Urine Blood 2+ (Negative) H 08/05/23 22:00 Urine Nitrite Negative (Negative) 08/05/23 22:00 Urine Bilirubin Negative (Negative) 08/05/23 22:00 Urine Urobilinogen Negative (Negative) 08/05/23 22:00 Ur Leukocyte Esterase 2+ (Negative) H 08/05/23 22:00 Urine WBC (Auto) >30 /hpf (0-5) H 08/05/23 22:00 Urine RBC (Auto) >30 /hpf (0-4) H 08/05/23 22:00 U Hyaline Cast (Auto) 0 /lpf (0-5) 08/05/23 22:00 U Epithel Cells (Auto) 5-10 /lpf (0-5) H 08/05/23 22:00 Urine Bacteria (Auto) Negative (Negative) 08/05/23 22:00 Urine Yeast Budding w/ Hyphae (None Prsent) A 08/05/23 22:00 Urine Osmolality 325 mOsm/kg (500-800) L 07/31/23 07:45 Ur Random Creatinine 137.7 mg/dl 07/31/23 07:45 Ur Random Sodium 30 mmol/L 07/31/23 07:45 Ur Random Potassium 67.5 mmol/L 07/31/23 07:45 Ur Random Chloride 20 mmol/L 07/31/23 07:45 Nasal Screen MRSA (PCR) Negative (Negative) 07/31/23 07:45 Adenovirus (PCR) DETECTED (NotDetected) A 07/30/23 12:56 B. pertussis DNA (PCR) Not Detected (NotDetected) 07/30/23 12:56 B.parapertussis DNA PCR Not Detected (NotDetected) 07/30/23 12:56 C. pneumoniae DNA (PCR) Not Detected (NotDetected) 07/30/23 12:56 Coronavirus OC43 (PCR) Not Detected (NotDetected) 07/30/23 12:56 Coronavirus HKU1 (PCR) Not Detected (NotDetected) 07/30/23 12:56 Coronavirus 229E (PCR) Not Detected (NotDetected) 07/30/23 12:56 SARS-CoV-2 (PCR) Not Detected (NotDetected) 07/30/23 12:56 Coronavirus NL63 (PCR) Not Detected (NotDetected) 07/30/23 12:56 Enterobacterales (PCR) DETECTED (NotDetected) A 07/30/23 15:45 E. coli (PCR) DETECTED (NotDetected) A 07/30/23 15:45 Human Metapneumovir PCR Not Detected (NotDetected) 07/30/23 12:56 Influenza Type A (PCR) Not Detected (NotDetected) 07/30/23 12:56 Influenza Type B (PCR) Not Detected (NotDetected) 07/30/23 12:56 M. pneumoniae (PCR) Not Detected (NotDetected) 07/30/23 12:56 Parainfluenza 1 (PCR) Not Detected (NotDetected) 07/30/23 12:56 Parainfluenza 2 (PCR) Not Detected (NotDetected) 07/30/23 12:56 Parainfluenza 3 (PCR) Not Detected (NotDetected) 07/30/23 12:56 Parainfluenza 4 (PCR) Not Detected (NotDetected) 07/30/23 12:56 RSV (PCR) Not Detected (NotDetected) 07/30/23 12:56 Entero/Rhino (PCR) Not Detected (NotDetected) 07/30/23 12:56 mcr-1 Colistin Res Gene PCR Not Detected (NotDetected) 07/30/23 15:45 blaIMP Car res Gene PCR Not Detected (NotDetected) 07/30/23 15:45 KPC-Carbap Res Gene PCR Not Detected (NotDetected) 07/30/23 15:45 blaNDM Car Res Gene PCR Not Detected (NotDetected) 07/30/23 15:45 OXA-48 Carbapenem Resis Gene (PCR) Not Detected (NotDetected) 07/30/23 15:45 blaVIM Car Res Gene PCR Not Detected (NotDetected) 07/30/23 15:45 CTX-M Gene Resistance (PCR) Not Detected (NotDetected) 07/30/23 15:45 Bld Cult ID Panel PCR See PCR Comment (NotDetected) 07/30/23 15:45 Impressions Retrograde Pyelogram 07/30/23 00:00 FL retrograde includes kub CLINICAL HISTORY: Right ureteral stent placement. COMPARISON STUDY: None. FLUOROSCOPY TIME: 47 seconds. FLUOROSCOPY IMAGES: 2 Ka,r: 21.9 mGy FINDINGS: Retrograde opacification of the right renal collecting system with placement of a right ureteral stent. The stent appears in good position. IMPRESSION: Fluoroscopic assistance as above ACT 112: Negative or not required by law. Electronically signed by: Suhail Nolen M.D. 07/30/2023 8:59 PM Abdomen/Pelvis CT 07/30/23 13:06 CT OF THE ABDOMEN AND PELVIS WITHOUT CONTRAST CLINICAL HISTORY: Abdominal pain. Acute kidney injury. COMPARISON STUDY: CT of the abdomen and pelvis April 22, 2021. Renal ultrasound September 08, 2022. TECHNIQUE: Axial images of the abdomen and pelvis were obtained without IV contrast. Images were reviewed in the axial, sagittal, and coronal planes. Automated exposure control was utilized for the study. A dose lowering technique was utilized adhering to the principles of ALARA. FINDINGS: No pneumatosis, free air or portal venous gas is present. A 1.4 x 0.6 cm proximal right ureteral calculus results in mild right hydronephrosis. There is mild right perinephric stranding. A small amount of gas within the right collecting system is noted. There is also a small amount of gas within the nondependent aspect of the bladder. There are no left ureteral calculi. There is no left hydronephrosis. Left renal calculi measure up to 8 mm. 5 mm right renal calculus. A cyst within the upper pole of the left kidney is incidentally noted. Evaluation of the remainder of the abdomen and pelvis is suboptimal on this unenhanced exam. Liver, spleen, adrenal glands and pancreas are unremarkable. There is no evidence for a bowel obstruction. Sigmoid diverticulosis is present without evidence for acute diverticulitis. There is trace fluid within the pelvis. No acute fractures are identified within visualized skeletal structures. There is no lymphadenopathy. The appendix is normal. IMPRESSION: 1. 1.4 x 0.6 cm proximal right ureteral calculus results in mild right hydronephrosis with perinephric stranding. No additional ureteral calculi. Small amount of gas within the right collecting system. Given gas within the bladder, this gas could be due to recent procedure/instrumentation. An infectious etiology cannot be excluded and could be correlated with urinalysis. 2. Bilateral nephrolithiasis. No left hydronephrosis. 3. No bowel obstruction. Colonic diverticulosis. No evidence for acute diverticulitis. ACT 112: Negative or not required by law. Electronically signed by: Gui Berumen M.D. 07/30/2023 1:58 PM Chest X-Ray 08/05/23 15:10 XR chest 1V portable CLINICAL HISTORY: fever TECHNIQUE: Single frontal radiograph of the chest was obtained. Comparison: Comparison is made to chest radiograph 07/31/2023 FINDINGS: No lines and tubes are seen. Cardiomegaly is noted. Scattered airspace opacities are seen. There is prominence of pulmonary vasculature. No evidence of pleural effusion or pneumothorax. IMPRESSION: Scattered airspace opacities may represent multifocal pneumonia. Cardiomegaly and mild pulmonary edema ACT 112: Negative or not required by law. Electronically signed by: Tiburcio Casey M.D. 08/05/2023 4:20 PM Ordered Studies 07/30/23 FL retrograde includes kub Routine 07/30/23 13:06 CT Abd and Pelvis [CT abd pelvis wo con] Stat Hospital Course (1) Sepsis: Septic shock Complicated UTI E. coli bacteremia Obstructive uropathy --CT ABD: 1.4 x 0.6 cm proximal right ureteral calculus results in mild right hydronephrosis with perinephric stranding. No additional ureteral calculi. Small amount of gas within the right collecting system. Given gas within the bladder, this gas could be due to recent procedure/instrumentation. An infectious etiology cannot be excluded and could be correlated with urinalysis. Bilateral nephrolithiasis. No left hydronephrosis. No bowel obstruction. Colonic diverticulosis. No evidence for acute diverticulitis. --S/P Cystoscopy with right retrograde Pyelogram, Aspiration, right Ureteral Stent Placement by on 07/30/23 -- Blood culture growing E. coli --Urine culture growing Enterococcus faecalis VRE, E. coli, Proteus mirabilis --Repeat blood cultures negative to date -- Off pressors Appreciate critical care, urology and infectious disease Discontinued IV fluids Was changed to IV ampicillin per ID--need to complete 14-day course Given development of fever and worsening leukocytosis, will broaden IV antibiotics to daptomycin and cefepime>> transition back to ampicillin--needs 6 more days to complete treatment Off Note: Patient received multiple doses of ampicillin without any drug reactions. (Allergy listed for penicillins as urticaria) Monitor volume status Continue PT/OT Needs follow-up with urology on discharge Discussed with urology today: Plans for outpatient definitive stone treatment Plan to discharge to rehab facility today Possible pneumonia --CXR:Scattered airspace opacities may represent multifocal pneumonia. Cardiomegaly and mild pulmonary edema Procalcitonin trended down Received Cefepime>> ampicillin as above (2) Hydronephrosis with renal and ureteral calculous obstruction: Management as above Chronic hyponatremia Sodium 131 today Monitor (3) SAJAN (acute kidney injury): SAJAN on CKD III Likely multifactorial secondary to ATN, obstructive uropathy, dehydration due to diarrhea Cr 4.2>3.5>2.8>1.6>1.3>1.2 Avoid nephrotoxic agents as able Monitor renal function (4) UTI (urinary tract infection): As above (5) Adenovirus infection: Complicating sepsis Conservative management Supplemental oxygen as needed (6) Diarrhea: Bio fire positive for adenovirus Continue supportive care Will check stool studies if recurrent Antibiotics likely contributing as well Resolved (7) CKD (chronic kidney disease), stage III: Management as above (8) PAF (paroxysmal atrial fibrillation): Supratherapeutic INR--resolved INR 2.0 today Continue amiodarone, metoprolol Adjust Coumadin dose as needed Monitor INR (9) (HFpEF) heart failure with preserved ejection fraction: Echo 01/2023-EF 55 to 59%, moderate aortic stenosis, mild tricuspid regurgitation Diuretics initially held due to SAJAN/sepsis Given increased volume overload, given IV Lasix Resumed home diuretics (10) Type II diabetes mellitus: Hgb A1c 6.3 07/2023 Hold oral agents and Ozempic and utilize NovoLog per protocol while hospitalized Monitor BGs (11) Gout: Hold allopurinol for now due to SAJAN (12) HTN (hypertension): Held lisinopril and amlodipine Monitor BP (13) Hypothyroid: Chronic, stable Continue levothyroxine (14) Sleep apnea: CPAP as per home settings DVT Px Coumadin CODE STATUS Full Code Disposition SNF Total Time Total Time Spent Total Time Spent (In Minutes): 59 minutes Discharge Plan Discharge Items Patient Disposition: Transfer Intermediate Fac Reason For Visit: SEPSIS, UTI, KIDNEY STONE, ADENOVIRUS Discharge Diagnosis: Septic shock Complicated urinary tract infection E. coli bacteremia Obstructive uropathy S/P right Ureteral Stent Placement Acute kidney injury Adenovirus infection Activity: Per Instructions section Exercise/Sports: Gradually increase as tolerated Non-emergency contact: Primary Care Provider and Urologist Call non-emergency contact if: you have any medication questions, your symptoms worsen, your pain is concerning for you and you have a fever Follow-up/Referrals: Micah Whitmore MD [Primary Care Provider] - Diet: Carb Consistent or DM2 Diet Texture: Dental soft (bite-sized) Addtl Attending Provider Instructions: Follow-up with your primary care physician Dr. Whitmore in 1 week upon discharge from rehab facility Follow-up with your urologist as recommended by urology --- Complete the antibiotic course ampicillin 2 gm IV every 6 hours for 6 more days as recommended by your infectious disease doctor. Last day 08/16/23. --Monitor your PT/INR while at rehab facility and adjust Coumadin dose accordingly to maintain your INR between 2.0-3.0. --Monitor your blood pressure regularly and discussed with the physician for further adjustment of medications as needed. Seek immediate medical attention if your symptoms reoccur or worsen Please take all medications as instructed on discharge list below. Please call if you have any questions or problems. You can reach a [facility] hospitalist on duty at [facility] 24 hours a day by calling [phone] Pending Studies at Discharge: No Stand-Alone Forms: My [facility] Skilled Items Patient informed of condition?: Yes DNR: No Discharge Level of Care: Skilled Communicable Disease: No Discharge Prognosis: Stable Lines: Peripheral IV Urinary Catheter: No Medications and DC Order Prescriptions: New ampicillin sodium 2 gram recon soln 2 g IV Q6H 6 Days Continued acetaminophen [Tylenol Extra Strength] 500 mg tablet 500 mg PO TID Rx Instructions: PER PT "USUALLY TAKE AT LEAST ONCE A DAY". allopurinol [Zyloprim] 100 mg tablet 200 mg PO HS omeprazole 20 mg capsule,delayed release(DR/EC) 20 mg PO QAM spironolactone [Aldactone] 25 mg tablet 25 mg PO QAM Rx Instructions: PER PT "NOT EVERY DAY". bumetanide 1 mg tablet 1 mg PO QAM Rx Instructions: PER PT "NOT EVERY DAY" cholecalciferol (vitamin D3) 25 mcg (1,000 unit) capsule 1,000 unit PO QAM rosuvastatin [Crestor] 10 mg Tablet 10 mg PO HS magnesium oxide 400 mg magnesium Capsule 400 mg PO QPM metoprolol tartrate 50 mg Tablet 50 mg PO BID Qty: 0 0RF metformin 500 mg tablet extended release 24 hr 500 mg PO QAM levothyroxine 112 mcg Tablet 112 mcg PO QAM amiodarone 200 mg tablet 200 mg PO QAM multivitamin Tablet 1 tab PO QPM Ozempic 1 mg/dose (4 mg/3 mL) Pen Injector 1 mg SUBCUT WK Rx Instructions: FRIDAYS warfarin 5 mg tablet See Rx Instructions .ROUTE .COMPLEX Rx Instructions: TAKES 2.5 MG ON MON & FRI EVENINGS, THEN 5 MG ON SUN, , WED, TH, & WED EVENINGS. repaglinide 0.5 mg Tablet 0.5 mg PO TID Rx Instructions: administer within 30 minutes of a meal or snack Vitron-C 65 mg iron- 125 mg Tablet,Delayed Release (Dr/Ec) 1 tab PO MOWEFR Held lisinopril 10 mg Tablet 10 mg PO QPM Hold Instructions: Until further recommendations from your physician at rehab facility amlodipine 5 mg Tablet 5 mg PO BID Hold Instructions: Until further recommendations from your physician at rehab facility Discharge Orders: Discharge Order (Routine); Ordered 08/10/23 Ordered By: Skinny Kapoor Admission Data Admit Date/Time: 07/30/23 16:35 Attending Provider: Skinny Kapoor Admit Provider: Shirley Wilson Primary Care Provider: Micah Whitmore Other Providers: Shirley Wilson; Song Edwards; Francisco Kim; Ian Ambrocio; Alley Barraza; Sebastián Ordoñez I.; Brian Irby II; Akanksha Yu; Florentin Mitchell; Jonathan Garcias; Diana Rader; [facility]
== END 2023-08-10 15:32 | DRG 853 ==
LOC: ED 11:31 → 2E 16:35 → SUATTDRO 16:35 → 2E 18:09 → 1E 07-31 06:43 → 2S 08-04 00:12

== ENCOUNTER 2023-09-11 18:40 | Inpatient (IN) ==
--- NOTE | 2023-09-11 19:15 | Emergency Department Note ---
Impression & Plan Hypotension, Confusion, Leukocytosis, Hyponatremia, Anemia, UTI (urinary tract infection) ED Provider Note NAME: Alex GRISSOM AGE: 73 SEX: F : 1950 ARRIVES VIA: Ambulance INFORMANT: [Patient] ED PROVIDER(S): [Fred Oconnor MD] CHIEF COMPLAINT: Pain, somnolence HISTORY OF PRESENT ILLNESS: The patient is a 73-year-old female who was noted today to be less interactive and more somnolent. Patient states that she just feels like she wants to fall asleep. She does feel generalized achiness. The patient has a known ureteral stent in place because of a right ureteral stone. She is scheduled to have a procedure in the near future for stone extraction. Patient denies any chest pain or shortness of breath. There has been no trauma. No urinary complaints at present. She has not had cough or congestion. As per her notes, she was recently started on Lexapro. PMHx/PSHx/Social Hx: See Below PHYSICAL EXAM: GENERAL: Patient is in no acute distress. HEENT: No acute trauma, normocephalic atraumatic, mucous membranes dry, no nasal congestion. Pupils equal and reactive to light. NECK: No stridor, no adenopathy, no meningismus, trachea is midline. LUNGS: Clear to auscultation bilaterally, no wheeze, no rhonchi, breath sounds equal. HEART: 2/6 systolic murmur, regular rate and rhythm. ABDOMEN: Soft, nontender, no peritonitis. Obese. EXTREMITIES: No cyanosis, full range of motion of all the joints without pain or difficulty. NEUROLOGIC: Oriented x 3, no acute motor or sensory deficits, no focal weakness. Does seem sleepy. SKIN: No jaundice, no diaphoresis. DIFFERENTIAL DIAGNOSIS: Sepsis or bacteremia, dehydration, intracranial bleeding, electrolyte imbalance, anemia, overmedication, UTI, among others. EMERGENCY DEPARTMENT PROCEDURES: MEDICAL DECISION MAKING: There is a moderate leukocytosis, this could be consistent with infection. Patient was anemic but this appears baseline looking back at previous testing. There was a normal platelet count. INR was elevated at 1.5, the patient does take warfarin. Sodium was quite low at 118, the patient does have a history of hyponatremia but this is below her typical baseline. There was some mild elevation to the creatinine but this is baseline when looking back at previous testing. BUN was high consistent with some dehydration. Lactic acid level was not elevated making severe sepsis less likely. No concerning liver enzyme elevation. ECG showed a poor baseline but the rhythm appeared sinus. No acute ischemia. Cardiac enzyme testing x 1 was slightly elevated, this elevation could be secondary to cardiac injury or potentially just mismatch from her hypotension. Procalcitonin level was elevated consistent with bacterial infection. Brain CT showed no acute bleed or mass effect. Abdominal and pelvis CT showed the ureteral stent to be in position. No acute surgical pathology by CT imaging. Urine tox showed opiates consistent with her prescribed medications. Urinalysis did suggest infection. On exam, the patient appeared dehydrated and somewhat somnolent but was oriented x 3. She was mildly hypotensive upon initial assessment. Patient was aggressively managed given her presentation. I was concerned for early sepsis. The patient received IV Zosyn as antibiotic coverage. She was given IV saline, 1.5 L. This amount of saline would meet the 30 cc/kg saline bolus based on ideal body weight. Patient is in need of a hospital stay. Further care is warranted. I am concerned about a UTI causing early sepsis/bacteremia. I did speak with the patient and case management. The on-call hospitalist was consulted. Of note, the patient's blood pressure has improved with the IV fluid hydration. She seems to be responding well to her treatment so far. Prior/Outside records/notes reviewed: Today's EMS notes describing her presentation and transport to this hospital. ECG per my interpretation: Indication was possible sepsis. The ECG shows a very poor baseline but does appear to be a sinus rhythm. The rate is 73. There is significant artifact. No obvious ST elevation, no PVCs. The QTc was 451. Continuous Cardiac Monitoring per my interpretation: An order was placed for continuous cardiac monitoring. The monitor shows a rate of 73 with normal sinus rhythm. Imaging/x-ray results per my interpretation: Chest x-ray does not show mediastinal widening, pneumonia or pneumothorax. The film looks improved compared to previous films. Chronic Medical/Social conditions affecting care: Advanced age. Care/Management discussed with: Case management, the on-call hospitalist. Level of care consideration(s): After review of the information above and other included data: --I believe the patient requires escalation of care to admission Critical Care Note: I have personally spent 43 minutes of critical care time in the direct management of this patient. This includes bedside care, interpretation of diagnostic studies, and testing, discussion with consultants, patient, and family members, and other required patient management activities. This 43 minutes is in excess of all separately billable procedures. DISPOSITION: Admission Past Med/Surg History Medical History (HFpEF) heart failure with preserved ejection fraction PAF (paroxysmal atrial fibrillation) Rotator cuff tear arthropathy of both shoulders Venous ulcer Complex renal cyst Pseudomonas infection Osteonecrosis MRSA infection Diabetic ulcer of left foot associated with diabetes mellitus due to underlying condition, with fat layer exposed Diabetic ulcer of right foot associated with diabetes mellitus due to underlying condition, with fat layer exposed PEA (Pulseless electrical activity) Nephrolithiasis Discitis of lumbosacral region Chronic venous insufficiency Osteoarthritis Anemia MRSA (methicillin resistant Staphylococcus aureus) From wound in 2017 - Per Infection Control (04/21/21) pt does not need to be on precautions at this time T2DM (type 2 diabetes mellitus) Hx of osteomyelitis Spine (02/2020) treated at [facility] 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 antibiotics and oxycodone for pain management Sleep apnea CPAP Hypertension Hypothyroidism Morbid obesity CVA (cerebral vascular accident) Silent > Old infarct found on remote CT imaging (dating back to at least 2017) CKD stage 3 secondary to diabetes DM II (diabetes mellitus, type II), controlled NIDDM Dyslipidemia Gout hx Anemia Hx of basal cell carcinoma Gastric ulcer due to Helicobacter pylori hx Surgical History S/P ureteral stent placement S/P panniculectomy S/P ureteral stent placement History of cystoscopy History of cataract surgery S/P panniculectomy History of umbilical hernia repair (09/11/20) History of cardioversion S/P debridement History of esophagogastroduodenoscopy (EGD) H/O repair of rotator cuff H/O left knee surgery H/O basal cell carcinoma excision Status post Mohs surgery History of carpal tunnel surgery History of arthroplasty of left knee Family History Mother Diabetes Heart disease Father Hypertension Stroke Other No family history of adverse response to anesthesia No pertinent family history Social History Smoking Status: Never smoker Second Hand Exposure: No; Do You Dip or Chew Tobacco: No; Hx Alcohol Use: Yes Alcohol type: wine Hx Substance Use: No Preferred Language: Bruneian Communication Ability: Effective Hearing Ability: Normal Dope Weigh Operator Required: No Beliefs That Will Affect Care: None marital status: / Current Living Situation: Alone Current Living Situation Comment: [place]. 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 How many Children do You have: 2 Feels Safe at Home: Yes Diet: diabetic during the past year weight has: decreased > 10 lbs Assistive Devices: Cane, Stair Lift and Walker Allergies Allergies Allergy/AdvReac Type Severity Reaction Status Date / Time Penicillins Allergy Intermediate URTICARIA; Verified 07/30/23 16:09 PER PT, CAN TAKE AMOXICILLIN erythromycin base AdvReac Intermediate GI UPSET Verified 07/30/23 16:09 Home Meds Home Medications Medication Instructions Recorded Confirmed allopurinol 100 mg tablet 200 mg PO HS 02/15/18 07/30/23 (Zyloprim) omeprazole 20 mg capsule,delayed 20 mg PO QAM 02/15/18 07/30/23 release spironolactone 25 mg tablet 25 mg PO QAM 02/15/18 07/30/23 (Aldactone) magnesium oxide 400 mg PO QPM 02/03/20 07/30/23 rosuvastatin 10 mg tablet (Crestor) 10 mg PO HS 02/03/20 07/30/23 bumetanide 1 mg tablet 1 mg PO QAM 06/20/20 07/30/23 cholecalciferol (vitamin D3) 25 1,000 unit PO QAM 06/20/20 07/30/23 mcg (1,000 unit) capsule metformin 500 mg tablet,extended 500 mg PO QAM 06/20/20 07/30/23 release 24 hr amiodarone 200 mg tablet 200 mg PO QAM 09/04/20 07/30/23 amlodipine 5 mg tablet 5 mg PO BID 09/04/20 07/30/23 multivitamin 1 tab PO QPM 03/10/21 07/30/23 levothyroxine 112 mcg tablet 112 mcg PO QAM 04/14/21 07/30/23 lisinopril 10 mg tablet 10 mg PO QPM 04/14/21 07/30/23 acetaminophen 500 mg tablet 500 mg PO TID PAIN/FEVER 07/15/21 07/30/23 (Tylenol Extra Strength) iron,carbonyl 65 mg-vitamin C 125 1 tab PO MOWEFR 07/30/23 07/30/23 mg tablet,delayed release (Vitron-C) repaglinide 0.5 mg tablet 0.5 mg PO TID 07/30/23 07/30/23 semaglutide 1 mg/dose (4 mg/3 mL) 1 mg subcut WK 07/30/23 07/30/23 subcutaneous pen injector (Ozempic) warfarin 5 mg tablet See Rx Instructions .Route .COMPLEX 07/30/23 07/30/23 Previous Rx's Medication Instructions Recorded metoprolol tartrate 50 mg tablet 50 mg PO BID #0 tabs 02/09/20 fluconazole 200 mg tablet 200 mg PO DAILY 3 days #3 tabs 08/27/23 ondansetron HCl 4 mg tablet 4 mg PO Q8H PRN nausea and 08/27/23 vomiting #30 tabs tamsulosin 0.4 mg capsule 0.4 mg PO DAILY #30 caps 08/27/23 Results & Data (ED) Vital Signs Vital Signs - 24 hr 09/11/23 18:45 09/11/23 18:45 09/11/23 20:08 Temperature 36.5 C Temperature Source Oral Pulse Rate 73 Pulse Rate [Apical] 71 Pulse Rhythm [Apical] Regular Pulse Strength [Apical] Normal Respiratory Rate 16 16 Respiratory Effort / Characteristics Non-Labored Non-Labored Respiratory Depth Normal Normal Respiratory Pattern Regular Regular Blood Pressure 98/59 L Blood Pressure [Left Arm] 112/90 Blood Pressure Mean 72 Blood Pressure Mean [Left Arm] 97 Blood Pressure Position [Left Arm] Lying Pulse Oximetry 93 91 Oxygen Delivery Method Room Air Room Air Room Air Sepsis Recent Fever Within 48 Hours No Sepsis New/Unexplained Change in Mental Status No Sepsis Action Taken by Nursing No Action Required 09/11/23 20:35 09/11/23 21:00 Temperature Temperature Source Pulse Rate Pulse Rate [Apical] 71 Pulse Rhythm [Apical] Regular Pulse Strength [Apical] Normal Respiratory Rate 16 Respiratory Effort / Characteristics Non-Labored Respiratory Depth Normal Respiratory Pattern Regular Blood Pressure Blood Pressure [Left Arm] 134/81 Blood Pressure Mean Blood Pressure Mean [Left Arm] 98 Blood Pressure Position [Left Arm] Lying Pulse Oximetry 90 92 Oxygen Delivery Method Room Air Room Air Sepsis Recent Fever Within 48 Hours Sepsis New/Unexplained Change in Mental Status Sepsis Action Taken by Assisted Medications Current Medication List: was personally reviewed by me Laboratory Data Attestation: I reviewed the patient's lab results. 09/11/23 19:40 09/11/23 19:40 Lab Results 09/11/23 09/11/23 Range/Units 19:40 20:37 WBC 15.85 H (4.8-10.8) K/ul RBC 3.38 L (4.20-5.40) M/uL Hgb 9.1 L (12.0-16.0) g/dl Hct 28.3 L (37.0-47.0) % MCV 83.7 (80.0-100.0) fL MCH 26.9 (25.0-34.0) pg MCHC 32.2 (32.0-36.0) g/dL RDW Std Deviation 50.5 H (36.4-46.3) fL RDW Coeff of Yvette 16.4 H (11.5-14.5) % Plt Count 297 (130-400) K/uL MPV 9.6 (9.4-12.4) fL Immature Gran % (Auto) 1.8 % Neut % (Auto) 83.9 % Lymph % (Auto) 9.5 % Motley % (Auto) 4.4 % Eos % (Auto) 0.2 % Baso % (Auto) 0.2 % Neut # (Auto) 13.29 H (1.40-6.50) K/uL Lymph # (Auto) 1.51 (1.20-3.40) K/uL Motley # (Auto) 0.70 H (0.11-0.59) K/uL Eos # (Auto) 0.03 (0.00-0.50) K/uL Baso # (Auto) 0.03 (0.00-0.20) K/uL Immature Gran # (Auto) 0.29 H (0.01-0.20) K/uL PT 15.3 H (9.0-12.0) Seconds INR 1.5 H (0.9-1.1) APTT 28 (21-31) Seconds PTT Ratio 1.0 Sodium 118 L* (136-145) mmol/L Potassium 5.5 H (3.5-5.1) mmol/L Chloride 83 L (98-107) mmol/L Carbon Dioxide 27 (21-32) mmol/L Anion Gap 8 (3-11) BUN 84 H (6-23) mg/dl Creatinine 1.46 H (0.6-1.2) mg/dl Est Cr Clr Drug Dosing 37.2 ml/min Est GFR ( Amer) 41.0 ml/min Est GFR (Non-Af Amer) 35.3 ml/min BUN/Creatinine Ratio 57.5 H (10-20) Glucose 91 (70-99(Fasting)) mg/dl Lactate 0.8 (0.4-2.0) mmol/L Calcium 8.9 (8.6-10.3) mg/dl Magnesium 2.9 H (1.7-2.4) mg/dl Total Bilirubin 0.4 (0.2-1.0) mg/dl Direct Bilirubin 0.2 (0-0.2) mg/dl AST 17 (13-39) U/L ALT 13 (7-52) U/L Alkaline Phosphatase 105 H (34-104) U/L Troponin I High Sens 16.0 H (0-14) pg/ml Total Protein 6.7 (6.0-8.3) gm/dl Albumin 2.6 L (3.4-5.0) gm/dl Procalcitonin 12.00 H (0-0.5) ng/ml Urine Color Yellow Urine Appearance Cloudy A (Clear) Urine pH 5.5 (4.5-7.5) Ur Specific [place] 1.015 (1.000-1.030) Urine Protein Trace H (Negative) Urine Glucose (UA) Negative (Negative) Urine Ketones Negative (Negative) Urine Blood 2+ H (Negative) Urine Nitrite Negative (Negative) Urine Bilirubin Negative (Negative) Urine Urobilinogen Negative (Negative) Ur Leukocyte Esterase 3+ H (Negative) Urine WBC (Auto) 21-50 H (0-5) /hpf Urine RBC (Auto) 0-2 (0-2) /hpf U Hyaline Cast (Auto) 0-2 (0-2) /lpf U Epithel Cells (Auto) 3-5 H (0-2) /hpf Urine Bacteria (Auto) 4+ H (None Seen) Urine Opiates Screen Pos H (Neg) Ur Methadone, Qual Neg (Neg) Urine Barbiturates Neg (Neg) Ur Phencyclidine (PCP) Neg (Neg) U Amphetamin/Meth Scrn Neg (Neg) MDMA (Ecstasy) Screen Neg (Neg) U Benzodiazepines Scrn Neg (Neg) Ur Cocaine Metabolite Neg (Neg) U Marijuana (THC) Screen Neg (Neg) Administered Medications Discontinued Medications Sodium Chloride (Nss) 1,000 mls @ 999 mls/hr IV .Q1H1M MONIKA Stop: 09/11/23 20:15 Last Admin: 09/11/23 20:13 Dose: 999 mls/hr Documented By: Cefepime HCl (Maxipime) 2,000 mg in 20 mls @ 5 mls/min IV NOW STA; Protocol Stop: 09/11/23 19:10 Last Admin: 09/11/23 20:14 Dose: Not Given Documented By: Piperacillin Sod/Tazobactam Sod (Zosyn) 4.5 gm in 120 mls @ 240 mls/hr IV NOW ONE Stop: 09/11/23 19:40 Last Admin: 09/11/23 20:14 Dose: 240 mls/hr Documented By: Imaging Data Radiologist's Impression: Abdomen/Pelvis CT 09/11/23 19:07 CT abd pelvis wo con CLINICAL HISTORY: stent, poss recurrent obstruction TECHNIQUE: Helical axial images of the abdomen and pelvis were obtained. Automated dose lowering techniques and/or adjustment according to patient size were utilized for this exam. This exam was performed without intravenous contrast. CT DOSE: 1961.81 mGy.cm COMPARISON: Comparison is made to CT abdomen pelvis 07/30/2023 FINDINGS: Lower chest: Bibasilar atelectasis versus scarring is seen. Cardiomegaly is seen. Liver: Unremarkable. No focal lesions are seen. Gallbladder and biliary tree: No calcified gallstones. Normal caliber wall. No intra- or extrahepatic biliary ductal dilation. Pancreas: Unremarkable, no focal lesions. Spleen: Unremarkable. Adrenals: Unremarkable. Kidneys and ureters: Right nephroureteral stent is seen. Bladder: Unremarkable. Reproductive organs: Unremarkable. Bowel: Diverticulosis is seen without diverticulitis. The appendix is normal. Lymph nodes Retroperitoneal: Unremarkable. Pelvic: Unremarkable. Mesenteric: Unremarkable. Peritoneum: Normal. Vessels: Atherosclerotic calcifications are seen. Abdominal wall: Unremarkable. Bones: Degenerative changes in the visualized spine. IMPRESSION: 1. No acute abnormality and in particular no evidence of right hydronephrosis. The nephroureteral stent remains in place. 2. Diverticulosis without diverticulitis. 3. Additional findings as above. ACT 112: Negative or not required by law. Electronically signed by: Tiburcio Casey M.D. 09/11/2023 8:[address] 09/11/23 19:07 CT head/brain wo con CLINICAL HISTORY: confusion Technique: Contiguous axial CT images of the head were acquired from the base of the skull to the vertex without intravenous contrast administration. Images were viewed in brain, subdural and bone windows. Automated dose lowering techniques and/or adjustment according to patient size were utilized for this exam. Comparison: Comparison is made to CT head 04/22/2021 Findings: Areas of decreased attenuation are present in the periventricular and subcortical white matter bilaterally consistent with small vessel ischemic disease. Generalized cerebral atrophy with commensurate enlargement of the ventricles, sulci, and cisterns is also present. There is no acute intracranial hemorrhage or evidence of acute territorial infarction. No shift of the midline structures, mass effect, or extra-axial abnormalities are shown. Atherosclerotic calcifications are present in the intracranial segments of the internal carotid arteries. Imaged portions of the paranasal sinuses and mastoid air cells are clear. The orbits appear normal. There are no acute fractures of the calvaria or scalp swelling. Impression: No acute intracranial hemorrhage, no evidence of acute territorial infarction or other acute intracranial disease process. ACT 112: Negative or not required by law. Electronically signed by: Tiburcio Casey M.D. 09/11/2023 8:05 PM Discharge Plan Visit Data Chief Complaint: Pain (Generalized) Stated Complaint: PAIN ALL OVER ED Provider: Fred Oconnor Discharge Problem: Hypotension, Confusion, Leukocytosis, Hyponatremia, Anemia, UTI (urinary tract infection) Patient Disposition: Admitted As Inpatient Condition: Serious Forms Stand Alone Forms: My [facility] [employer] Prescriptions Prescriptions: No Action acetaminophen [Tylenol Extra Strength] 500 mg tablet 500 mg PO TID Rx Instructions: PER PT "USUALLY TAKE AT LEAST ONCE A DAY". allopurinol [Zyloprim] 100 mg tablet 200 mg PO HS omeprazole 20 mg capsule,delayed release(DR/EC) 20 mg PO QAM spironolactone [Aldactone] 25 mg tablet 25 mg PO QAM Rx Instructions: PER PT "NOT EVERY DAY". bumetanide 1 mg tablet 1 mg PO QAM Rx Instructions: PER PT "NOT EVERY DAY" cholecalciferol (vitamin D3) 25 mcg (1,000 unit) capsule 1,000 unit PO QAM fluconazole 200 mg tablet 200 mg PO DAILY 3 Days Qty: 3 0RF ondansetron HCl 4 mg tablet 4 mg PO Q8H PRN (Reason: nausea and vomiting) Qty: 30 0RF tamsulosin 0.4 mg capsule 0.4 mg PO DAILY Qty: 30 1RF rosuvastatin [Crestor] 10 mg Tablet 10 mg PO HS magnesium oxide 400 mg magnesium Capsule 400 mg PO QPM metoprolol tartrate 50 mg Tablet 50 mg PO BID Qty: 0 0RF metformin 500 mg tablet extended release 24 hr 500 mg PO QAM lisinopril 10 mg Tablet 10 mg PO QPM Hold Instructions: Until further recommendations from your physician at rehab facility levothyroxine 112 mcg Tablet 112 mcg PO QAM amlodipine 5 mg Tablet 5 mg PO BID Hold Instructions: Until further recommendations from your physician at rehab facility amiodarone 200 mg tablet 200 mg PO QAM multivitamin Tablet 1 tab PO QPM Ozempic 1 mg/dose (4 mg/3 mL) Pen Injector 1 mg SUBCUT WK Rx Instructions: FRIDAYS warfarin 5 mg tablet See Rx Instructions .ROUTE .COMPLEX Rx Instructions: TAKES 2.5 MG ON MON & WED EVENINGS, THEN 5 MG ON WED, , WED, , & WED EVENINGS. repaglinide 0.5 mg Tablet 0.5 mg PO TID Rx Instructions: administer within 30 minutes of a meal or snack Vitron-C 65 mg iron- 125 mg Tablet,Delayed Release (/Ec) 1 tab PO MOWEFR Referrals Referrals: Micah Whitmore MD [Primary Care Provider] - Discharge Problem: Hypotension Qualifiers: Hypotension type: unspecified hypotension type Qualified Code(s): I95.9 - Hypotension, unspecified Leukocytosis Qualifiers: Leukocytosis type: unspecified Qualified Code(s): D72.829 - Elevated white blood cell count, unspecified Anemia Qualifiers: Anemia type: unspecified type Qualified Code(s): D64.9 - Anemia, unspecified UTI (urinary tract infection) Qualifiers: Urinary tract infection type: acute cystitis Hematuria presence: without hematuria Qualified Code(s): N30.00 - Acute cystitis without hematuria
[2023-09-11 20:05] LABS: Basophils # (auto) 0.03 K/uL (0.00-0.20); Basophils % (auto) 0.2 %; Eosinophils # (auto) 0.03 K/uL (0.00-0.50); Eosinophils % (auto) 0.2 %; Hematocrit (blood only) 28.3 % (37.0-47.0); Hemoglobin 9.1 g/dl (12.0-16.0); Immature Granulocytes # (auto) 0.29 K/uL (0.01-0.20); Immature Granulocytes % (auto) 1.8 %; Lymphocytes # (auto) 1.51 K/uL (1.20-3.40); Lymphocytes % (auto) 9.5 %; Mean Corpuscular Hemoglobin 26.9 pg (25.0-34.0); Mean Corpuscular Hgb Conc 32.2 g/dL (32.0-36.0); Mean Corpuscular Volume 83.7 fL (80.0-100.0); Mean Platelet Volume 9.6 fL (9.4-12.4); Monocytes % (auto) 4.4 %; Neutrophils # (auto) 13.29 K/uL (1.40-6.50); Neutrophils % (auto) 83.9 %; Platelet Count 297 K/uL (130-400); RDW Coefficient of Variation 16.4 % (11.5-14.5); RDW Standard Deviation 50.5 fL (36.4-46.3); Red Blood Count 3.38 M/uL (4.20-5.40); White Blood Count 15.85 K/ul (4.8-10.8)
--- NOTE | 2023-09-11 20:06 | CT Scan Report ---
CT head/brain wo con CLINICAL HISTORY: confusion Technique: Contiguous axial CT images of the head were acquired from the base of the skull to the krunal josefina without intravenous contrast administration. Images were viewed in brain, subdural and [facility]. Automated dose lowering techniques and/or adjustment according to patient size were utilized for this exam. Comparison: Comparison is made to CT head 04/22/2021 Findings: Areas of decreased attenuation are present in the periventricular and subcortical white matter bilate rally consistent with small vessel ischemic disease. Generalized cerebral atrophy with commensurate e nlargement of the ventricles, sulci, and cisterns is also present. There is no acute intracranial hem orrhage or evidence of acute territorial infarction. No shift of the midline structures, mass effect, or extra-axial abnormalities are shown. Atherosclerotic calcifications are present in the intracran ial segments of the internal carotid arteries. Imaged portions of the paranasal sinuses and mastoid air cells are clear. The orbits appear normal. There are no acute fractures of the calvaria or scalp swelling. Impression: No acute intracranial hemorrhage, no evidence of acute territorial infarction or other acute intracra nial disease process. ACT 112: Negative or not required by law. Electronically signed by: Tiburcio Casey M.D. 09/11/2023 8:05 PM
[2023-09-11 20:07] LABS: INR 1.5 (0.9-1.1); Partial Thromboplastin Time 28 Seconds (21-31); Prothrombin Time 15.3 Seconds (9.0-12.0)
[2023-09-11] MEDS: SODIUM CHLORIDE 0.9% 1,000 ML IV SCH (20:13)
[2023-09-11] MEDS: CEFEPIME 2,000 MG/20 ML VIAL IV STA (20:14)
[2023-09-11] MEDS: PIPERACILLIN/TAZOBACTAM 4.5 GM/120 ML BAG IV ONE (20:14)
[2023-09-11 20:20] LABS: Albumin Level 2.6 gm/dl (3.4-5.0); BUN Creatinine Ratio 57.5 (10-20); Bilirubin Direct 0.2 mg/dl (0-0.2); Bilirubin,Total 0.4 mg/dl (0.2-1.0); Calcium 8.9 mg/dl (8.6-10.3); Creatinine Clr Calc Pharmacy 37.2 ml/min; Est GFR (Non-African American) 35.3 ml/min; Magnesium 2.9 mg/dl (1.7-2.4); Potassium 5.5 mmol/L (3.5-5.1); Total Protein 6.7 gm/dl (6.0-8.3)
--- NOTE | 2023-09-11 20:24 | CT Scan Report ---
CT abd pelvis wo con CLINICAL HISTORY: stent, poss recurrent obstruction TECHNIQUE: Helical axial images of the abdomen and pelvis were obtained. Automated dose lowering tech niques and/or adjustment according to patient size were utilized for this exam. This exam was perfor med without intravenous contrast. CT DOSE: 1961.81 mGy.cm COMPARISON: Comparison is made to CT abdomen pelvis 07/30/2023 FINDINGS: Lower chest: Bibasilar atelectasis versus scarring is seen. Cardiomegaly is seen. Liver: Unremarkable. No focal lesions are seen. Gallbladder and biliary tree: No calcified gallstones. Normal caliber wall. No intra- or extrahepatic biliary ductal dilation. Pancreas: Unremarkable, no focal lesions. Spleen: Unremarkable. Adrenals: Unremarkable. Kidneys and ureters: Right nephroureteral stent is seen. Bladder: Unremarkable. Reproductive organs: Unremarkable. Bowel: Diverticulosis is seen without diverticulitis. The appendix is normal. Lymph nodes Retroperitoneal: Unremarkable. Pelvic: Unremarkable. Mesenteric: Unremarkable. Peritoneum: Normal. Vessels: Atherosclerotic calcifications are seen. Abdominal wall: Unremarkable. Bones: Degenerative changes in the visualized spine. IMPRESSION: 1. No acute abnormality and in particular no evidence of right hydronephrosis. The nephroureteral st ent remains in place. 2. Diverticulosis without diverticulitis. 3. Additional findings as above. ACT 112: Negative or not required by law. Electronically signed by: Tiburcio Casey M.D. 09/11/2023 8:21 PM
[2023-09-11 21:19] LABS: Appearance Urine Cloudy (Clear); Bacteria Urine Automated 4+ (None Seen); Bilirubin Urine Negative (Negative); Blood Urine 2+ (Negative); Color Urine Yellow; Glucose Urine UA Negative (Negative); Ketones Urine Negative (Negative); Leukocyte Esterase Urine 3+ (Negative); Nitrite Urine Negative (Negative); Protein Urine Trace (Negative); RBC Urine Automated 0-2 /hpf (0-2); Specific Gravity Urine 1.015 (1.000-1.030); Urobilinogen Urine Negative (Negative); WBC Urine Automated 21-50 /hpf (0-5); pH Urine 5.5 (4.5-7.5)
[2023-09-11 21:26] LABS: Amphetamines+Metham, Urine Neg (Neg); Barbiturates, Urine Neg (Neg); Benzodiazepine, Urine Neg (Neg); Cocaine, Urine Neg (Neg); MDMA (Ecstacy), Urine Neg (Neg); Marijuana, Urine Neg (Neg); Methadone, Urine Neg (Neg); Opiate, Urine Pos (Neg); Phencyclidine, Urine Neg (Neg)
[2023-09-11 21:29] LABS: Cast Urine Automated 0-2 /lpf (0-2)
[2023-09-11] MEDS: SODIUM CHLORIDE 0.9% 500 ML IV ONE (22:22)
[2023-09-11] MEDS ORDERED: NITROGLYCERIN SL 0.4 MG/TAB TAB SL PRN (23:51)
[2023-09-12] MEDS ORDERED: SODIUM CHLORIDE 0.65% NA SOLN 45 ML (OCEAN) PRN (00:01)
--- NOTE | 2023-09-12 00:15 | History & Physical Report ---
Date of Service September 11, 2023 Assessment & Plan (1) AMS (altered mental status): Plan: 73-year-old female with past medical history significant for type 2 diabetes, gout, hyperlipidemia, hypothyroidism, obstructive sleep apnea on CPAP, paroxysmal atrial fibrillation, chronic diastolic CHF, CKD stage III, pulmonary hypertension, obesity, GERD, chronic bilateral low back pain, history of CVA, history of gastric ulcer comes from [facility] because of patient being sleeping more and less interactive. Patient was admitted on July 30, 2023 with UTI and sepsis and right ureteral calculus had adenovirus infection and SAJAN with creatinine of 4.2 and then patient was in septic shock requiring pressors cultures growing VRE, E. coli and Proteus mirabilis in the urine and blood cultures growing E. coli and antibiotics were tapered to IV ampicillin per ID to complete 14-day course and she is s/p right ureteral stent placement. kidney function improved and she was discharged to [facility] on August 10, 2023. Patient currently somewhat drowsy. But alert and oriented x 3. States is not ambulated since last 3 weeks. States feeling depressed. Denies any headache. No blurred vision. No earache or runny nose or sore throat. No cough. States appetite is down but swallowing okay. Denies chest pain or shortness of breath. No nausea or vomiting. No abdominal pain. Normal bowel and bladder movements. Initially when she came in her blood pressure was soft systolic blood pressure 90s but improved with the fluids. Altered mental status Mostly from UTI Hyponatremia Recently had urine cultures growing Enterococcus faecalis resistant to vancomycin but was sensitive to ampicillin and daptomycin. Urine cultures were also positive for E. coli and Proteus and blood cultures were positive for pansensitive E. coli.Completed 14days of iv ampicillin. Received Zosyn in the ER. Will continue Zosyn and IV Dapto until further cultures are available. Initially was borderline hypotensive improved with the fluids Will continue with gentle fluids Last admission right nephroureteral stent was placed which is intact on the CAT scan today Will consult urology Close monitoring in telemetry. Acute on chronic hyponatremia Presented with sodium of 118 Her sodium was 128s to 130s last admission Recently on September 01 and September 05 sodium was 124 and 123 Got fluids for low blood pressure Will check urine osmolality, urine sodium, serum osmolality Close monitor of labs Slow correction of sodium Will consult nephrology to help with slow correction Hyperkalemia Potassium 5.5 repeat labs K was 6.4. received iv insulin 10units, amp of d50 and iv calcium gluconate and placed on Lokelma. Nephrology consulted Elevated troponin Troponin 16 mostly demand ischemia Will follow serial exams Obstructive sleep apnea CPAP nightly refused cpap says swe was on cpap for last 5-6yrs but not using for last 6 weeks as mask was not fitting. She got new mask but not started using it yet as she had cold symptoms. She did not want to start tonight. can try tomorrow. CKD stage III Presented with creatinine 1.4 seems around baseline Will follow the labs Diabetes Will hold home p.o. medications Sliding scale and lantus 5units daily for now Will monitor History of paroxysmal atrial fibrillation On amiodarone and metoprolol and Coumadin INR 1.5 Needs adjustment of Coumadin dose Follow PT/INR Looks like she was on 3mg Coumadin daily and her inr was running high and Coumadin dose was reduced. Because of anasarca and hypoalbuminemia liver ultrasound was done at shelter but was negative for cirrhosis per notes from [facility]. Can consider novel agents Close monitor Chronic diastolic CHF Was on spironolactone and Bumex last admission but seems stopped at [place] for hyponatremia and ? worsening kidney function Seems currently not on diuretics Will monitor for volume overload Await nephro input Gout On allopurinol Depression recently started on Lexapro Hypothyroidism On Synthyroid Hyperlipidemia On statin GERD On omeprazole Hypertension Lisinopril and amlodipine were held at time of discharge last admission on metoprolol Will monitor DVT prophylaxis On Coumadin but INR subtherapeutic at 1.5 Prophylactic Lovenox until INR therapeutic Disposition Telemetry Full code per my discussion with the patient History of Present Illness Chief Complaint: Altered mental status and UTI Primary Care Provider: Micah Whitmore MD 73-year-old female with past medical history significant for type 2 diabetes, gout, hyperlipidemia, hypothyroidism, obstructive sleep apnea on CPAP, paroxysmal atrial fibrillation, chronic diastolic CHF, CKD stage III, pulmonary hypertension, obesity, GERD, chronic bilateral low back pain, history of CVA, history of gastric ulcer comes from [facility] because of patient being sleeping more and less interactive. Patient was admitted on July 30, 2023 with UTI and sepsis and right ureteral calculus had adenovirus infection and SAJAN with creatinine of 4.2 and then patient was in septic shock requiring pressors cultures growing VRE, E. coli and Proteus mirabilis in the urine and blood cultures growing E. coli and antibiotics were tapered to IV ampicillin per ID to complete 14-day course and she is s/p right ureteral stent placement. kidney function improved and she was discharged to [facility] on August 10, 2023. Patient currently somewhat drowsy. But alert and oriented x 3. States is not ambulated since last 3 weeks. States feeling depressed. Denies any headache. No blurred vision. No earache or runny nose or sore throat. No cough. States appetite is down but swallowing okay. Denies chest pain or shortness of breath. No nausea or vomiting. No abdominal pain. Normal bowel and bladder movements. Initially when she came in her blood pressure was soft systolic blood pressure 90s but improved with the fluids. Past medical history. As mentioned above Past surgical history. Left total knee arthroplasty. Bilateral carpal tunnel surgery. Cataract surgery. Injection of lumbosacral spine. Tonsillectomy adenoidectomy. Right repair of shoulder cuff. Sacroiliac joint injection. Social history. . No smoking. Alcohol few times a month. No drug use. Family history. Father had basal cell carcinoma. Hypertension. Stroke. Gout. Mother had diabetes. Heart disease. Maternal cousin had breast cancer. Maternal grandmother had diabetes. Brother has heart disease. Pacemaker. Daughter has pituitary adenoma Allergies Allergy/AdvReac Type Severity Reaction Status Date / Time Penicillins Allergy Intermediate URTICARIA; Verified 09/11/23 22:37 PER PT, CAN TAKE AMOXICILLIN erythromycin base AdvReac Intermediate GI UPSET Verified 09/11/23 22:37 Home Medications Medication Instructions Recorded Confirmed Type allopurinol 100 mg tablet 200 mg PO HS 02/15/18 09/11/23 History (Zyloprim) omeprazole 20 mg capsule,delayed 20 mg PO QAM 02/15/18 09/11/23 History release magnesium oxide 400 mg PO QPM 02/03/20 09/11/23 History rosuvastatin 10 mg tablet (Crestor) 10 mg PO HS 02/03/20 09/11/23 History metoprolol tartrate 50 mg tablet 50 mg PO BID #0 tabs 02/09/20 09/11/23 Rx cholecalciferol (vitamin D3) 25 1,000 unit PO QAM 06/20/20 09/11/23 History mcg (1,000 unit) capsule metformin 500 mg tablet,extended 500 mg PO QAM 06/20/20 09/11/23 History release 24 hr amiodarone 200 mg tablet 200 mg PO QAM 09/04/20 09/11/23 History multivitamin 1 tab PO QPM 03/10/21 09/11/23 History levothyroxine 112 mcg tablet 112 mcg PO QAM 04/14/21 09/11/23 History acetaminophen 500 mg tablet 500 mg PO TID PAIN/FEVER 07/15/21 09/11/23 History (Tylenol Extra Strength) iron,carbonyl 65 mg-vitamin C 125 1 tab PO MOWEFR 07/30/23 09/11/23 History mg tablet,delayed release (Vitron-C) repaglinide 0.5 mg tablet 0.5 mg PO TIDM 07/30/23 09/11/23 History ondansetron HCl 4 mg tablet 4 mg PO Q8H PRN nausea and 08/27/23 09/11/23 Rx vomiting #30 tabs tamsulosin 0.4 mg capsule 0.4 mg PO DAILY #30 caps 08/27/23 09/11/23 Rx acetaminophen 325 mg tablet 650 mg PO Q6 PRN Fever Or Pain 09/11/23 09/11/23 History (Tylenol) diclofenac sodium 1 % topical gel 4 g topical QID 09/11/23 09/11/23 History docusate sodium 100 mg capsule 100 mg PO AMHS 09/11/23 09/11/23 History escitalopram oxalate 5 mg tablet 5 mg PO QAM 09/11/23 09/11/23 History insulin lispro 100 unit/mL 1 sliding scale dose subcut ACHS 09/11/23 09/11/23 History subcutaneous solution (Humalog U-100 Insulin) menthol 0.44 %-zinc oxide 20.6 % 1 applic topical DIRECTED 09/11/23 09/11/23 History topical ointment (Calmoseptine) oxycodone 5 mg tablet 5 mg PO Q4H PRN Pain 09/11/23 09/11/23 History polyethylene glycol 3350 17 17 g PO QAM 09/11/23 09/11/23 History gram/dose oral powder (Miralax) sodium chloride 0.65 % nasal spray 2 spray intranasal Q8 PRN DRYNESS 09/11/23 09/11/23 History aerosol (Saline Nasal) warfarin 1 mg tablet 1 mg PO HS 09/11/23 09/11/23 History Past Med/Surg History Medical History (HFpEF) heart failure with preserved ejection fraction PAF (paroxysmal atrial fibrillation) Rotator cuff tear arthropathy of both shoulders Venous ulcer Complex renal cyst Pseudomonas infection Osteonecrosis MRSA infection Diabetic ulcer of left foot associated with diabetes mellitus due to underlying condition, with fat layer exposed Diabetic ulcer of right foot associated with diabetes mellitus due to underlying condition, with fat layer exposed PEA (Pulseless electrical activity) Nephrolithiasis Discitis of lumbosacral region Chronic venous insufficiency Osteoarthritis Anemia MRSA (methicillin resistant Staphylococcus aureus) From wound in 2017 - Per Infection Control (04/21/21) pt does not need to be on precautions at this time T2DM (type 2 diabetes mellitus) Hx of osteomyelitis Spine (02/2020) treated at [facility] with intermediate frame tender antibiotics and oxycodone for pain management Sleep apnea CPAP Hypertension Hypothyroidism Morbid obesity CVA (cerebral vascular accident) Silent > Old infarct found on remote CT imaging (dating back to at least 2017) CKD stage 3 secondary to diabetes DM II (diabetes mellitus, type II), controlled NIDDM Dyslipidemia Gout hx Anemia Hx of basal cell carcinoma Gastric ulcer due to Helicobacter pylori hx Surgical History S/P ureteral stent placement S/P panniculectomy S/P ureteral stent placement History of cystoscopy History of cataract surgery S/P panniculectomy History of umbilical hernia repair (09/11/20) History of cardioversion S/P debridement History of esophagogastroduodenoscopy (EGD) H/O repair of rotator cuff H/O left knee surgery H/O basal cell carcinoma excision Status post Mohs surgery History of carpal tunnel surgery History of arthroplasty of left knee Family History Mother Diabetes Heart disease Father Hypertension Stroke Other No family history of adverse response to anesthesia No pertinent family history Social History Smoking Status: Never smoker Second Hand Exposure: No; Do You Dip or Chew Tobacco: No; Hx Alcohol Use: Yes Alcohol type: wine Hx Substance Use: No Preferred Language: Mozambican Communication Ability: Effective Hearing Ability: Normal Barrel Turner Required: No Beliefs That Will Affect Care: None marital status: / Current Living Situation: Rehab Current Living Situation Comment: [facility]. 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 How many Children do You have: 2 Feels Safe at Home: Yes Safety Concerns: Feels Safe At This Time Diet: diabetic during the past year weight has: decreased > 10 lbs Assistive Devices: Walker Review of Systems Review of Systems: All systems reviewed & are unremarkable except as noted in HPI & below Physical Exam Physical Exam: General- Drowsy Head- atraumatic Eyes- PERRL. ENT- oropharynx clear Neck- supple, no JVD. Lungs- clear to auscultation no wheezing or crackles. Heart- regular rhythm; no murmur, no gallop. Abdomen- normal bowel sounds, soft, nontender, no distension Extremities- no pretibial edema, no erythema seen Neuro- alert, oriented x 3 but drowsy; PERRL, ; no facial palsy; no dysarthria; obeys simple commands, moves extremities. Results & Data Results & Data Vital Signs (Past 12 Hours) Vital Signs Temp Pulse Pulse Resp BP BP Pulse Ox 09/11/23 21:30 71 15 141/69 H 93 09/11/23 21:15 71 15 136/65 94 09/11/23 21:00 71 16 134/81 92 09/11/23 20:35 90 09/11/23 20:08 71 16 112/90 91 09/11/23 18:45 09/11/23 18:45 36.5 C 73 16 98/59 L 93 O2 Del Method 09/11/23 21:30 Room Air 09/11/23 21:15 Room Air 09/11/23 21:00 Room Air 09/11/23 20:35 Room Air 09/11/23 20:08 Room Air 09/11/23 18:45 Room Air 09/11/23 18:45 Room Air Diagnostic Findings Laboratory Results WBC 15.85 K/ul (4.8-10.8) H 09/11/23 19:40 RBC 3.38 M/uL (4.20-5.40) L 09/11/23 19:40 Hgb 9.1 g/dl (12.0-16.0) L 09/11/23 19:40 Hct 28.3 % (37.0-47.0) L 09/11/23 19:40 MCV 83.7 fL (80.0-100.0) 09/11/23 19:40 MCH 26.9 pg (25.0-34.0) 09/11/23 19:40 MCHC 32.2 g/dL (32.0-36.0) 09/11/23 19:40 RDW Std Deviation 50.5 fL (36.4-46.3) H 09/11/23 19:40 RDW Coeff of Yvette 16.4 % (11.5-14.5) H 09/11/23 19:40 Plt Count 297 K/uL (130-400) 09/11/23 19:40 MPV 9.6 fL (9.4-12.4) 09/11/23 19:40 Immature Gran % (Auto) 1.8 % 09/11/23 19:40 Neut % (Auto) 83.9 % 09/11/23 19:40 Lymph % (Auto) 9.5 % 09/11/23 19:40 Hays % (Auto) 4.4 % 09/11/23 19:40 Eos % (Auto) 0.2 % 09/11/23 19:40 Baso % (Auto) 0.2 % 09/11/23 19:40 Neut # (Auto) 13.29 K/uL (1.40-6.50) H 09/11/23 19:40 Lymph # (Auto) 1.51 K/uL (1.20-3.40) 09/11/23 19:40 Hays # (Auto) 0.70 K/uL (0.11-0.59) H 09/11/23 19:40 Eos # (Auto) 0.03 K/uL (0.00-0.50) 09/11/23 19:40 Baso # (Auto) 0.03 K/uL (0.00-0.20) 09/11/23 19:40 Immature Gran # (Auto) 0.29 K/uL (0.01-0.20) H 09/11/23 19:40 PT 15.3 Seconds (9.0-12.0) H 09/11/23 19:40 INR 1.5 (0.9-1.1) H 09/11/23 19:40 APTT 28 Seconds (21-31) 09/11/23 19:40 PTT Ratio 1.0 09/11/23 19:40 Sodium 118 mmol/L (136-145) L* 09/11/23 19:40 Potassium 5.5 mmol/L (3.5-5.1) H 09/11/23 19:40 Chloride 83 mmol/L (98-107) L 09/11/23 19:40 Carbon Dioxide 27 mmol/L (21-32) 09/11/23 19:40 Anion Gap 8 (3-11) 09/11/23 19:40 BUN 84 mg/dl (6-23) H 09/11/23 19:40 Creatinine 1.46 mg/dl (0.6-1.2) H 09/11/23 19:40 Est Cr Clr Drug Dosing 37.2 ml/min 09/11/23 19:40 Est GFR ( Amer) 41.0 ml/min 09/11/23 19:40 Est GFR (Non-Af Amer) 35.3 ml/min 09/11/23 19:40 BUN/Creatinine Ratio 57.5 (10-20) H 09/11/23 19:40 Glucose 91 mg/dl (70-99(Fasting)) 09/11/23 19:40 Lactate 0.8 mmol/L (0.4-2.0) 09/11/23 19:40 Calcium 8.9 mg/dl (8.6-10.3) 09/11/23 19:40 Magnesium 2.9 mg/dl (1.7-2.4) H 09/11/23 19:40 Total Bilirubin 0.4 mg/dl (0.2-1.0) 09/11/23 19:40 Direct Bilirubin 0.2 mg/dl (0-0.2) 09/11/23 19:40 AST 17 U/L (13-39) 09/11/23 19:40 ALT 13 U/L (7-52) 09/11/23 19:40 Alkaline Phosphatase 105 U/L (34-104) H 09/11/23 19:40 Troponin I High Sens 16.0 pg/ml (0-14) H 09/11/23 19:40 Total Protein 6.7 gm/dl (6.0-8.3) 09/11/23 19:40 Albumin 2.6 gm/dl (3.4-5.0) L 09/11/23 19:40 Procalcitonin 12.00 ng/ml (0-0.5) H 09/11/23 19:40 Urine Color Yellow 09/11/23 20:37 Urine Appearance Cloudy (Clear) A 09/11/23 20:37 Urine pH 5.5 (4.5-7.5) 09/11/23 20:37 Ur Specific Perry 1.015 (1.000-1.030) 09/11/23 20:37 Urine Protein Trace (Negative) H 09/11/23 20:37 Urine Glucose (UA) Negative (Negative) 09/11/23 20:37 Urine Ketones Negative (Negative) 09/11/23 20:37 Urine Blood 2+ (Negative) H 09/11/23 20:37 Urine Nitrite Negative (Negative) 09/11/23 20:37 Urine Bilirubin Negative (Negative) 09/11/23 20:37 Urine Urobilinogen Negative (Negative) 09/11/23 20:37 Ur Leukocyte Esterase 3+ (Negative) H 09/11/23 20:37 Urine WBC (Auto) 21-50 /hpf (0-5) H 09/11/23 20:37 Urine RBC (Auto) 0-2 /hpf (0-2) 09/11/23 20:37 U Hyaline Cast (Auto) 0-2 /lpf (0-2) 09/11/23 20:37 U Epithel Cells (Auto) 3-5 /hpf (0-2) H 09/11/23 20:37 Urine Bacteria (Auto) 4+ (None Seen) H 09/11/23 20:37 Urine Opiates Screen Pos (Neg) H 09/11/23 20:37 Ur Methadone, Qual Neg (Neg) 09/11/23 20:37 Urine Barbiturates Neg (Neg) 09/11/23 20:37 Ur Phencyclidine (PCP) Neg (Neg) 09/11/23 20:37 U Amphetamin/Meth Scrn Neg (Neg) 09/11/23 20:37 MDMA (Ecstasy) Screen Neg (Neg) 09/11/23 20:37 U Benzodiazepines Scrn Neg (Neg) 09/11/23 20:37 Ur Cocaine Metabolite Neg (Neg) 09/11/23 20:37 U Marijuana (THC) Screen Neg (Neg) 09/11/23 20:37 Impressions Abdomen/Pelvis CT 09/11/23 19:07 CT abd pelvis wo con CLINICAL HISTORY: stent, poss recurrent obstruction TECHNIQUE: Helical axial images of the abdomen and pelvis were obtained. Automated dose lowering techniques and/or adjustment according to patient size were utilized for this exam. This exam was performed without intravenous contrast. CT DOSE: 1961.81 mGy.cm COMPARISON: Comparison is made to CT abdomen pelvis 07/30/2023 FINDINGS: Lower chest: Bibasilar atelectasis versus scarring is seen. Cardiomegaly is seen. Liver: Unremarkable. No focal lesions are seen. Gallbladder and biliary tree: No calcified gallstones. Normal caliber wall. No intra- or extrahepatic biliary ductal dilation. Pancreas: Unremarkable, no focal lesions. Spleen: Unremarkable. Adrenals: Unremarkable. Kidneys and ureters: Right nephroureteral stent is seen. Bladder: Unremarkable. Reproductive organs: Unremarkable. Bowel: Diverticulosis is seen without diverticulitis. The appendix is normal. Lymph nodes Retroperitoneal: Unremarkable. Pelvic: Unremarkable. Mesenteric: Unremarkable. Peritoneum: Normal. Vessels: Atherosclerotic calcifications are seen. Abdominal wall: Unremarkable. Bones: Degenerative changes in the visualized spine. IMPRESSION: 1. No acute abnormality and in particular no evidence of right hydronephrosis. The nephroureteral stent remains in place. 2. Diverticulosis without diverticulitis. 3. Additional findings as above. ACT 112: Negative or not required by law. Electronically signed by: Tiburcio Casey M.D. 09/11/2023 8:[address] 09/11/23 19:07 CT head/brain wo con CLINICAL HISTORY: confusion Technique: Contiguous axial CT images of the head were acquired from the base of the skull to the vertex without intravenous contrast administration. Images were viewed in brain, subdural and bone windows. Automated dose lowering techniques and/or adjustment according to patient size were utilized for this exam. Comparison: Comparison is made to CT head 04/22/2021 Findings: Areas of decreased attenuation are present in the periventricular and subcortical white matter bilaterally consistent with small vessel ischemic disease. Generalized cerebral atrophy with commensurate enlargement of the ventricles, sulci, and cisterns is also present. There is no acute intracranial hemorrhage or evidence of acute territorial infarction. No shift of the midline structures, mass effect, or extra-axial abnormalities are shown. Atherosclerotic calcifications are present in the intracranial segments of the internal carotid arteries. Imaged portions of the paranasal sinuses and mastoid air cells are clear. The orbits appear normal. There are no acute fractures of the calvaria or scalp swelling. Impression: No acute intracranial hemorrhage, no evidence of acute territorial infarction or other acute intracranial disease process. ACT 112: Negative or not required by law. Electronically signed by: Tiburcio Casey M.D. 09/11/2023 8:05 PM ECG Additional Comments: ECG Junctional rhythm at rate of 73. Left axis deviation. Nonspecific ST abnormalities. Code Status & VTE Plan VTE Prophylaxis Plan VTE Prophylaxis will be ordered: Yes
[2023-09-12 01:12] LABS: BUN Creatinine Ratio 56.5 (10-20); Calcium 8.3 mg/dl (8.6-10.3); Creatinine Clr Calc Pharmacy 39.6 ml/min; Est GFR (African American) 43.8 ml/min; Est GFR (Non-African American) 37.8 ml/min; Potassium 6.4 mmol/L (3.5-5.1)
[2023-09-12] MEDS: SODIUM CHLORIDE 0.9% 1,000 ML IV SCH (01:42)
[2023-09-12] MEDS: WARFARIN SOD 2 MG TAB PO STA (01:42)
[2023-09-12] MEDS ORDERED: GLUCAGON FOR INJ 1 MG VIAL SQ PRN (01:59)
[2023-09-12] MEDS ORDERED: GLUCOSE 10 TAB/TUBE PO PRN (01:59)
[2023-09-12] MEDS ORDERED: CARBOHYDRATES FOR HYPOGLYCEMIA PO PRN (01:59)
[2023-09-12] MEDS ORDERED: DEXTROSE 50% 50 ML SYRINGE IV PRN (01:59)
[2023-09-12] MEDS ORDERED: GLUCOSE 40% GEL 15 GM TUBE PO PRN (01:59)
[2023-09-12] MEDS: CALCIUM GLUCONATE 1,000 MG/60 ML BAG IV STA (02:07)
[2023-09-12] MEDS: DEXTROSE 50% 50 ML SYRINGE IV STA (02:11)
[2023-09-12] MEDS: SODIUM ZIRCONIUM CYCLOSILICATE 10 GM PACKET PO SCH (02:12)
[2023-09-12] MEDS: INSULIN HUMAN REGULAR PER UNIT 10 UNITS in SYRINGE 9.9 ML IV STA (02:23)
[2023-09-12] MEDS: DAPTOmycin 500 MG in SYRINGE 0 ML IV SCH (02:44)
[2023-09-12] MEDS: PIPERACILLIN/TAZOBACTAM 4.5 GM in DEXTROSE 5% MINI-B 100 ML IV SCH (03:02)
[2023-09-12 06:32] LABS: Basophils # (auto) 0.03 K/uL (0.00-0.20); Basophils % (auto) 0.2 %; Eosinophils # (auto) 0.04 K/uL (0.00-0.50); Eosinophils % (auto) 0.3 %; Hematocrit (blood only) 25.8 % (37.0-47.0); Hemoglobin 8.3 g/dl (12.0-16.0); Immature Granulocytes # (auto) 0.28 K/uL (0.01-0.20); Immature Granulocytes % (auto) 2.2 %; Lymphocytes # (auto) 1.39 K/uL (1.20-3.40); Lymphocytes % (auto) 10.9 %; Mean Corpuscular Hemoglobin 26.8 pg (25.0-34.0); Mean Corpuscular Hgb Conc 32.2 g/dL (32.0-36.0); Mean Corpuscular Volume 83.2 fL (80.0-100.0); Mean Platelet Volume 9.6 fL (9.4-12.4); Monocytes # (auto) 0.64 K/uL (0.11-0.59); Neutrophils # (auto) 10.38 K/uL (1.40-6.50); Neutrophils % (auto) 81.4 %; Platelet Count 292 K/uL (130-400); RDW Standard Deviation 48.6 fL (36.4-46.3); White Blood Count 12.76 K/ul (4.8-10.8)
[2023-09-12] MEDS: LEVOTHYROXINE SODIUM 112 MCG TABLET PO SCH (06:38)
[2023-09-12 06:53] LABS: BUN Creatinine Ratio 54.2 (10-20); Calcium 8.6 mg/dl (8.6-10.3); Creatinine Clr Calc Pharmacy 44.8 ml/min; Est GFR (African American) 46.7 ml/min; Est GFR (Non-African American) 40.3 ml/min; Magnesium 2.6 mg/dl (1.7-2.4); Potassium 4.8 mmol/L (3.5-5.1)
[2023-09-12 07:00] LABS: Troponin I High Sensitivity 15.7 pg/ml (0-14)
[2023-09-12 07:01] LABS: INR 1.4 (0.9-1.1); Prothrombin Time 14.9 Seconds (9.0-12.0)
[2023-09-12 07:11] LABS: Allen Test Pos (Pos); Base Excess ABG 2.4 mEq/L (-9-1.8); HCO3 ABG 27 mmol/L (19-24); PCO2 ABG 43 mmHg (35-46); PO2 ABG 59 mmHg (80-95); pH ABG 7.41 (7.35-7.45)
--- NOTE | 2023-09-12 07:19 | XRay Report ---
XR chest 1V portable CLINICAL HISTORY: Sepsis TECHNIQUE: Single frontal radiograph of the chest was obtained. Comparison: Comparison is made to chest radiograph 08/05/2023 FINDINGS: No lines and tubes are seen. Calcified aortic knob is seen. The lungs are clear. No evidence of pleur al effusion or pneumothorax. IMPRESSION: No acute abnormalities and in particular no radiographic evidence of pneumonia. ACT 112: Negative or not required by law. Electronically signed by: Tiburcio Casey M.D. 09/12/2023 7:17 AM
--- NOTE | 2023-09-12 07:21 | Electrocardiogram Report ---
Test Reason : Blood Pressure : / mmHG Vent. Rate : 073 BPM Atrial Rate : 000 BPM P-R Int : 000 ms QRS Dur : 100 ms QT Int : 410 ms P-R-T Axes : 000 -46 040 degrees QTc Int : 451 ms Poor data quality, interpretation may be adversely affected Probably sinus rhythm Poor R wave progression, consider anterior [place] vs. lead placement vs. LVH Left axis deviation Nonspecific ST abnormality Abnormal ECG When compared with ECG of 01-AUG-2023 09:53, Criteria for Anterior infarct are no longer Present Criteria for Anterolateral infarct are no longer Present Criteria for Inferior infarct are no longer Present T wave inversion no longer evident in Anterior leads Confirmed by Shravan Menchaca ([id number] on 09/12/2023 7:20:54 AM Referred By: [facility] Confirmed By:Jose Menchaca
[2023-09-12] MEDS: INSULIN ASPART PER UNIT CHARGE SC SCH (08:07)
[2023-09-12] MEDS: LANTUS PER UNIT CHARGE SQ SCH (08:33)
[2023-09-12] MEDS: ENOXAPARIN INJ 40 MG/0.4 ML SYR SQ SCH (08:33)
--- NOTE | 2023-09-12 08:39 | Hospitalist Progress Note ---
Date of Service September 12, 2023 Assessment & Plan (1) AMS (altered mental status): Plan: 73 yo F with type 2 diabetes, gout, hyperlipidemia, hypothyroidism, obstructive sleep apnea on CPAP, paroxysmal atrial fibrillation, chronic diastolic CHF, CKD stage III, pulmonary hypertension, obesity, GERD, chronic bilateral low back pain, history of CVA, history of gastric ulcer comes from [facility] because of patient being sleeping more and less interactive. Patient was admitted on July 30, 2023 with UTI and sepsis and right ureteral calculus had adenovirus infection and SAJAN with creatinine of 4.2 and then patient was in septic shock requiring pressors cultures growing VRE, E. coli and Proteus mirabilis in the urine and blood cultures growing E. coli and antibiotics were tapered to IV ampicillin per ID to complete 14-day course and she is s/p right ureteral stent placement. kidney function improved and she was discharged to half-way on August 10, 2023. Patient currently somewhat drowsy. But alert and oriented x 3. States is not ambulated since last 3 weeks. States feeling depressed. Denies any headache. No blurred vision. No earache or runny nose or sore throat. No cough. States appetite is down but swallowing okay. Denies chest pain or shortness of breath. No nausea or vomiting. No abdominal pain. Normal bowel and bladder movements. Initially when she came in her blood pressure was soft systolic blood pressure 90s but improved with the fluids. Altered mental status Mostly from UTI Hyponatremia Recently had urine cultures growing Enterococcus faecalis resistant to vancomycin but was sensitive to ampicillin and daptomycin. Urine cultures were also positive for E. coli and Proteus and blood cultures were positive for pansensitive E. coli.Completed 14days of iv ampicillin. Received Zosyn in the ER. Will continue Zosyn and IV Dapto until further cultures are available. Initially was borderline hypotensive improved with the fluids Will continue with gentle fluids Last admission right nephroureteral stent was placed which is intact on the CAT scan today Urology consulted and discussed with - procedure for tomorrow may be postponed, but will keep npo after [place] for now Close monitoring in telemetry. Acute on chronic hyponatremia Presented with sodium of 118 Her sodium was 128s to 130s last admission Recently on September 01 and September 05 sodium was 124 and 123 Got fluids for low blood pressure Will check urine osmolality, urine sodium, serum osmolality Close monitor of labs Slow correction of sodium Current Na 122 Nephrology consulted to help with slow correction Hyperkalemia Potassium 5.5 repeat labs K was 6.4. received iv insulin 10units, amp of d50 and iv calcium gluconate and placed on Lokelma. Nephrology consulted Elevated troponin Troponin 16 mostly demand ischemia Will follow serial exams Obstructive sleep apnea CPAP nightly refused cpap says she was on cpap for last 5-6yrs but not using for last 6 weeks as mask was not fitting. She got new mask but not started using it yet as she had cold symptoms. She did not want to start, can try again tonight CKD stage III Presented with creatinine 1.4 seems around baseline Will follow the labs Diabetes Will hold home p.o. medications Sliding scale and lantus 5units daily for now Will monitor History of paroxysmal atrial fibrillation On amiodarone and metoprolol and Coumadin INR 1.5 Needs adjustment of Coumadin dose Follow PT/INR Looks like she was on 3mg Coumadin daily and her inr was running high and Coumadin dose was reduced. Because of anasarca and hypoalbuminemia liver ultrasound was done at senior care but was negative for cirrhosis per notes from half-way. Can consider novel agents Close monitor Chronic diastolic CHF Was on spironolactone and Bumex last admission but seems stopped at [facility] for hyponatremia and ? worsening kidney function Seems currently not on diuretics Will monitor for volume overload Await nephro input Gout On allopurinol Depression recently started on Lexapro Hypothyroidism On Synthyroid Hyperlipidemia On statin GERD On omeprazole Hypertension Lisinopril and amlodipine were held at time of discharge last admission on metoprolol Will monitor DVT prophylaxis On Coumadin but INR subtherapeutic at 1.5 Prophylactic Lovenox until INR therapeutic Disposition - Telemetry Full code per admitting provider's discussion with the patient Admission and Anticipated Discharge Date Admission Date: September 11, 2023 Subjective Pt seen in follow up of UTI , hx of renal stone, s/p ureteral stent placement and followed by severe sepsis Now also presents with hyperkalemia, hyponatremia - Nephrology and urology consulted Pt presented w/ AMS, currently feels better and able to answer simple questions appropriately Pt seen w/ urology at the bedside Currently no fever, chills, chest pain or shortness of breath. Reports back pain. Review of Systems Review of Systems: All systems reviewed & are unremarkable except as noted in Subjective Physical Exam Physical Exam: General- obese elderly F , chronically ill appearing in NAD Head- NC/AT Eyes- PERRL. Neck- supple, no JVD. Lungs- clear to auscultation no wheezing or crackles. Heart- regular rhythm; no murmur, no gallop. Abdomen- normal bowel sounds, soft, nontender, no distension, + obese abdomen Extremities- no pretibial edema, no erythema seen, moves extremities Neuro- alert, oriented x 3 but drowsy; PERRL, ; no facial palsy; no dysarthria; obeys simple commands, moves extremities. Results & Data Results & Data Vital Signs (Past 12 Hours) Vital Signs Temp Pulse Pulse Resp BP Pulse Ox O2 Del Method 09/12/23 08:07 36.6 C 79 22 118/69 94 Nasal Cannula 09/12/23 07:36 Nasal Cannula 09/12/23 07:32 80 09/12/23 06:00 99/62 L 09/12/23 02:37 36.7 C 16 09/12/23 02:00 72 175/77 H 94 Room Air 09/12/23 00:51 74 09/11/23 23:45 36.3 C L 75 16 121/81 94 Room Air 09/11/23 23:00 72 14 143/84 H 92 Room Air 09/11/23 22:45 72 17 140/70 95 Room Air 09/11/23 22:30 72 17 130/72 92 Room Air 09/11/23 22:00 72 17 133/76 93 Room Air 09/11/23 21:45 71 13 117/60 95 Room Air 09/11/23 21:30 71 15 141/69 H 93 Room Air 09/11/23 21:15 71 15 136/65 94 Room Air 09/11/23 21:00 71 16 134/81 92 Room Air 09/11/23 20:35 90 Room Air O2 Flow Rate 09/12/23 08:07 2 09/12/23 07:36 1 09/12/23 07:32 09/12/23 06:00 09/12/23 02:37 09/12/23 02:00 09/12/23 00:51 09/11/23 23:45 09/11/23 23:00 09/11/23 22:45 09/11/23 22:30 09/11/23 22:00 09/11/23 21:45 09/11/23 21:30 09/11/23 21:15 09/11/23 21:00 09/11/23 20:35 Laboratory Results 09/12/23 09/12/23 09/12/23 Range/Units 07:12 07:04 05:58 WBC 12.76 H (4.8-10.8) K/ul RBC 3.10 L (4.20-5.40) M/uL Hgb 8.3 L (12.0-16.0) g/dl Hct 25.8 L (37.0-47.0) % MCV 83.2 (80.0-100.0) fL MCH 26.8 (25.0-34.0) pg MCHC 32.2 (32.0-36.0) g/dL RDW Std Deviation 48.6 H (36.4-46.3) fL RDW Coeff of Yvette 16.0 H (11.5-14.5) % Plt Count 292 (130-400) K/uL MPV 9.6 (9.4-12.4) fL Immature Gran % (Auto) 2.2 % Neut % (Auto) 81.4 % Lymph % (Auto) 10.9 % [place] % (Auto) 5.0 % Eos % (Auto) 0.3 % Baso % (Auto) 0.2 % Neut # (Auto) 10.38 H (1.40-6.50) K/uL Lymph # (Auto) 1.39 (1.20-3.40) K/uL [place] # (Auto) 0.64 H (0.11-0.59) K/uL Eos # (Auto) 0.04 (0.00-0.50) K/uL Baso # (Auto) 0.03 (0.00-0.20) K/uL Immature Gran # (Auto) 0.28 H (0.01-0.20) K/uL PT 14.9 H (9.0-12.0) Seconds INR 1.4 H (0.9-1.1) APTT (21-31) Seconds PTT Ratio ABG pH 7.41 (7.35-7.45) ABG pCO2 43 (35-46) mmHg ABG pO2 59 L (80-95) mmHg ABG HCO3 27 H (19-24) mmol/L ABG O2 Saturation 94.0 (90-95) % ABG Base Excess 2.4 H (-9-1.8) mEq/L Damon Test Pos (Pos) Oxygen Given RA Sodium 122 L (136-145) mmol/L Potassium 4.8 D (3.5-5.1) mmol/L Chloride 88 L (98-107) mmol/L Carbon Dioxide 26 (21-32) mmol/L Anion Gap 8 (3-11) BUN 71 H (6-23) mg/dl Creatinine 1.31 H (0.6-1.2) mg/dl Est Cr Clr Drug Dosing 44.8 ml/min Est GFR ( Amer) 46.7 ml/min Est GFR (Non-Af Amer) 40.3 ml/min BUN/Creatinine Ratio 54.2 H (10-20) Glucose 84 (70-99(Fasting)) mg/dl POC Glucose 102 H (70-99) mg/dl Osmolality 276 L (280-300) mOsm/kg Lactate (0.4-2.0) mmol/L Calcium 8.6 (8.6-10.3) mg/dl Magnesium 2.6 H (1.7-2.4) mg/dl Total Bilirubin (0.2-1.0) mg/dl Direct Bilirubin (0-0.2) mg/dl AST (13-39) U/L ALT (7-52) U/L Alkaline Phosphatase (34-104) U/L Troponin I High Sens 15.7 H (0-14) pg/ml Total Protein (6.0-8.3) gm/dl Albumin (3.4-5.0) gm/dl Procalcitonin (0-0.5) ng/ml Urine Color Urine Appearance (Clear) Urine pH (4.5-7.5) Ur Specific [place] (1.000-1.030) Urine Protein (Negative) Urine Glucose (UA) (Negative) Urine Ketones (Negative) Urine Blood (Negative) Urine Nitrite (Negative) Urine Bilirubin (Negative) Urine Urobilinogen (Negative) Ur Leukocyte Esterase (Negative) Urine WBC (Auto) (0-5) /hpf Urine RBC (Auto) (0-2) /hpf U Hyaline Cast (Auto) (0-2) /lpf U Epithel Cells (Auto) (0-2) /hpf Urine Bacteria (Auto) (None Seen) Urine Osmolality (500-800) mOsm/kg Ur Random Sodium mmol/L Nasal Screen MRSA (PCR) (Negative) Urine Opiates Screen (Neg) U Codeine Confrm GC/MS Ur Morphine (GC/MS) Ur Hydrocodone (GC/MS) Ur Norhydrocodone Ur Noroxycodone Urine Oxycodone (GC/MS) U Oxymorphone GC/MS Ur Methadone, Qual (Neg) Ur Hydromorphone (GC/MS) Urine Barbiturates (Neg) Ur Phencyclidine (PCP) (Neg) U Amphetamin/Meth Scrn (Neg) MDMA (Ecstasy) Screen (Neg) U Benzodiazepines Scrn (Neg) Ur Cocaine Metabolite (Neg) U Marijuana (THC) Screen (Neg) Drug Screen Comment 09/12/23 09/12/23 09/12/23 Range/Units 05:50 00:39 00:00 WBC (4.8-10.8) K/ul RBC (4.20-5.40) M/uL Hgb (12.0-16.0) g/dl Hct (37.0-47.0) % MCV (80.0-100.0) fL MCH (25.0-34.0) pg MCHC (32.0-36.0) g/dL RDW Std Deviation (36.4-46.3) fL RDW Coeff of Yvette (11.5-14.5) % Plt Count (130-400) K/uL MPV (9.4-12.4) fL Immature Gran % (Auto) % Neut % (Auto) % Lymph % (Auto) % [place] % (Auto) % Eos % (Auto) % Baso % (Auto) % Neut # (Auto) (1.40-6.50) K/uL Lymph # (Auto) (1.20-3.40) K/uL [place] # (Auto) (0.11-0.59) K/uL Eos # (Auto) (0.00-0.50) K/uL Baso # (Auto) (0.00-0.20) K/uL Immature Gran # (Auto) (0.01-0.20) K/uL PT (9.0-12.0) Seconds INR (0.9-1.1) APTT (21-31) Seconds PTT Ratio ABG pH (7.35-7.45) ABG pCO2 (35-46) mmHg ABG pO2 (80-95) mmHg ABG HCO3 (19-24) mmol/L ABG O2 Saturation (90-95) % ABG Base Excess (-9-1.8) mEq/L Damon Test (Pos) Oxygen Given Sodium 122 L (136-145) mmol/L Potassium 6.4 H* (3.5-5.1) mmol/L Chloride 90 L (98-107) mmol/L Carbon Dioxide 25 (21-32) mmol/L Anion Gap 7 (3-11) BUN 78 H (6-23) mg/dl Creatinine 1.38 H (0.6-1.2) mg/dl Est Cr Clr Drug Dosing 39.6 ml/min Est GFR ( Amer) 43.8 ml/min Est GFR (Non-Af Amer) 37.8 ml/min BUN/Creatinine Ratio 56.5 H (10-20) Glucose 75 (70-99(Fasting)) mg/dl POC Glucose (70-99) mg/dl Osmolality (280-300) mOsm/kg Lactate (0.4-2.0) mmol/L Calcium 8.3 L (8.6-10.3) mg/dl Magnesium (1.7-2.4) mg/dl Total Bilirubin (0.2-1.0) mg/dl Direct Bilirubin (0-0.2) mg/dl AST (13-39) U/L ALT (7-52) U/L Alkaline Phosphatase (34-104) U/L Troponin I High Sens (0-14) pg/ml Total Protein (6.0-8.3) gm/dl Albumin (3.4-5.0) gm/dl Procalcitonin (0-0.5) ng/ml Urine Color Urine Appearance (Clear) Urine pH (4.5-7.5) Ur Specific [place] (1.000-1.030) Urine Protein (Negative) Urine Glucose (UA) (Negative) Urine Ketones (Negative) Urine Blood (Negative) Urine Nitrite (Negative) Urine Bilirubin (Negative) Urine Urobilinogen (Negative) Ur Leukocyte Esterase (Negative) Urine WBC (Auto) (0-5) /hpf Urine RBC (Auto) (0-2) /hpf U Hyaline Cast (Auto) (0-2) /lpf U Epithel Cells (Auto) (0-2) /hpf Urine Bacteria (Auto) (None Seen) Urine Osmolality 292 L (500-800) mOsm/kg Ur Random Sodium 12 mmol/L Nasal Screen MRSA (PCR) Negative (Negative) Urine Opiates Screen (Neg) U Codeine Confrm GC/MS Ur Morphine (GC/MS) Ur Hydrocodone (GC/MS) Ur Norhydrocodone Ur Noroxycodone Urine Oxycodone (GC/MS) U Oxymorphone GC/MS Ur Methadone, Qual (Neg) Ur Hydromorphone (GC/MS) Urine Barbiturates (Neg) Ur Phencyclidine (PCP) (Neg) U Amphetamin/Meth Scrn (Neg) MDMA (Ecstasy) Screen (Neg) U Benzodiazepines Scrn (Neg) Ur Cocaine Metabolite (Neg) U Marijuana (THC) Screen (Neg) Drug Screen Comment 09/11/23 09/11/23 Range/Units 20:37 19:40 WBC 15.85 H (4.8-10.8) K/ul RBC 3.38 L (4.20-5.40) M/uL Hgb 9.1 L (12.0-16.0) g/dl Hct 28.3 L (37.0-47.0) % MCV 83.7 (80.0-100.0) fL MCH 26.9 (25.0-34.0) pg MCHC 32.2 (32.0-36.0) g/dL RDW Std Deviation 50.5 H (36.4-46.3) fL RDW Coeff of Yvette 16.4 H (11.5-14.5) % Plt Count 297 (130-400) K/uL MPV 9.6 (9.4-12.4) fL Immature Gran % (Auto) 1.8 % Neut % (Auto) 83.9 % Lymph % (Auto) 9.5 % [place] % (Auto) 4.4 % Eos % (Auto) 0.2 % Baso % (Auto) 0.2 % Neut # (Auto) 13.29 H (1.40-6.50) K/uL Lymph # (Auto) 1.51 (1.20-3.40) K/uL [place] # (Auto) 0.70 H (0.11-0.59) K/uL Eos # (Auto) 0.03 (0.00-0.50) K/uL Baso # (Auto) 0.03 (0.00-0.20) K/uL Immature Gran # (Auto) 0.29 H (0.01-0.20) K/uL PT 15.3 H (9.0-12.0) Seconds INR 1.5 H (0.9-1.1) APTT 28 (21-31) Seconds PTT Ratio 1.0 ABG pH (7.35-7.45) ABG pCO2 (35-46) mmHg ABG pO2 (80-95) mmHg ABG HCO3 (19-24) mmol/L ABG O2 Saturation (90-95) % ABG Base Excess (-9-1.8) mEq/L Damon Test (Pos) Oxygen Given Sodium 118 L* (136-145) mmol/L Potassium 5.5 H (3.5-5.1) mmol/L Chloride 83 L (98-107) mmol/L Carbon Dioxide 27 (21-32) mmol/L Anion Gap 8 (3-11) BUN 84 H (6-23) mg/dl Creatinine 1.46 H (0.6-1.2) mg/dl Est Cr Clr Drug Dosing 37.2 ml/min Est GFR ( Amer) 41.0 ml/min Est GFR (Non-Af Amer) 35.3 ml/min BUN/Creatinine Ratio 57.5 H (10-20) Glucose 91 (70-99(Fasting)) mg/dl POC Glucose (70-99) mg/dl Osmolality (280-300) mOsm/kg Lactate 0.8 (0.4-2.0) mmol/L Calcium 8.9 (8.6-10.3) mg/dl Magnesium 2.9 H (1.7-2.4) mg/dl Total Bilirubin 0.4 (0.2-1.0) mg/dl Direct Bilirubin 0.2 (0-0.2) mg/dl AST 17 (13-39) U/L ALT 13 (7-52) U/L Alkaline Phosphatase 105 H (34-104) U/L Troponin I High Sens 16.0 H (0-14) pg/ml Total Protein 6.7 (6.0-8.3) gm/dl Albumin 2.6 L (3.4-5.0) gm/dl Procalcitonin 12.00 H (0-0.5) ng/ml Urine Color Yellow Urine Appearance Cloudy A (Clear) Urine pH 5.5 (4.5-7.5) Ur Specific [place] 1.015 (1.000-1.030) Urine Protein Trace H (Negative) Urine Glucose (UA) Negative (Negative) Urine Ketones Negative (Negative) Urine Blood 2+ H (Negative) Urine Nitrite Negative (Negative) Urine Bilirubin Negative (Negative) Urine Urobilinogen Negative (Negative) Ur Leukocyte Esterase 3+ H (Negative) Urine WBC (Auto) 21-50 H (0-5) /hpf Urine RBC (Auto) 0-2 (0-2) /hpf U Hyaline Cast (Auto) 0-2 (0-2) /lpf U Epithel Cells (Auto) 3-5 H (0-2) /hpf Urine Bacteria (Auto) 4+ H (None Seen) Urine Osmolality (500-800) mOsm/kg Ur Random Sodium mmol/L Nasal Screen MRSA (PCR) (Negative) Urine Opiates Screen Pos H (Neg) U Codeine Confrm GC/MS Pending Ur Morphine (GC/MS) Pending Ur Hydrocodone (GC/MS) Pending Ur Norhydrocodone Pending Ur Noroxycodone Pending Urine Oxycodone (GC/MS) Pending U Oxymorphone GC/MS Pending Ur Methadone, Qual Neg (Neg) Ur Hydromorphone (GC/MS) Pending Urine Barbiturates Neg (Neg) Ur Phencyclidine (PCP) Neg (Neg) U Amphetamin/Meth Scrn Neg (Neg) MDMA (Ecstasy) Screen Neg (Neg) U Benzodiazepines Scrn Neg (Neg) Ur Cocaine Metabolite Neg (Neg) U Marijuana (THC) Screen Neg (Neg) Drug Screen Comment Pending Medications Administered Current Inpatient Medications Acetaminophen (Acetaminophen 325 Mg Tab) 650 mg PO Q4H PRN PRN Reason: Pain or Fever Stop: 10/11/23 23:50 Allopurinol (Allopurinol 100 Mg Tab) 200 mg PO HS [facility] Stop: 10/12/23 20:59 Amiodarone HCl (Amiodarone 200 Mg Tab) 200 mg PO QAM [facility] Stop: 10/12/23 08:59 Ascorbic Acid (Ascorbic Acid 500 Mg Tab) 250 mg PO [id number]@[id number] [facility] Stop: 10/13/23 08:59 Dextrose (Dextrose 50% 50 Ml Syringe) 25 - 50 ml IV UD PRN; Protocol PRN Reason: Hypoglycemia Protocol Stop: 10/12/23 01:58 Diclofenac Sodium (Diclofenac Sod 1% Gel 100 Gm Tube) 4 gm EXT QID [facility]; Protocol Stop: 10/12/23 08:59 Docusate Sodium (Docusate Sodium 100 Mg Cap) 100 mg PO BID [facility] Stop: 10/12/23 08:59 Enoxaparin Sodium (Enoxaparin Inj 40 Mg/0.4 Ml Syr) 40 mg SQ Q12H [facility] Stop: 10/12/23 07:59 Escitalopram Oxalate (Escitalopram Oxalate 10 Mg Tab) 5 mg PO QAM [facility] Stop: 10/12/23 08:59 Ferrous Sulfate (Ferrous Sulfate 325 Mg Tab) 325 mg PO [id number] [facility] Stop: 10/13/23 08:59 Glucagon (Glucagon For Inj 1 Mg Vial) 1 mg SQ UD PRN; Protocol PRN Reason: Hypoglycemia Protocol Stop: 10/12/23 01:58 Glucose (Glucose 40% Gel 15 Gm Tube) 15 - 30 gm PO UD PRN; Protocol PRN Reason: Hypoglycemia Protocol Stop: 10/12/23 01:58 Glucose (Glucose 10 Tab/Tube) 4 - 8 tab PO UD PRN; Protocol PRN Reason: Hypoglycemia Treatment Stop: 10/12/23 01:58 Sodium Chloride (Nss) 1,000 mls @ 50 mls/hr IV .Q20H [facility] Stop: 10/11/23 23:50 Last Admin: 09/12/23 01:42 Dose: 50 mls/hr Daptomycin 500 mg/ Syringe 10 mls @ 5 mls/min IV Q24H [facility]; Protocol Stop: 09/22/23 01:59 Last Admin: 09/12/23 02:44 Dose: 5 mls/min Piperacillin Sod/Tazobactam (Sod 4.5 gm/ Dextrose) 100 mls @ 25 mls/hr IV Q8H [facility]; Protocol Stop: 09/22/23 02:59 Last Infusion: 09/12/23 06:39 Dose: Infused Insulin Aspart (Insulin Aspart Per Unit Charge) 0 units SC ACHS [facility] Stop: 10/12/23 07:29 Last Admin: 09/12/23 08:07 Dose: Not Given Insulin Glargine (Lantus Per Unit Charge) 5 units SQ DAILY [facility] Stop: 10/12/23 08:59 Levothyroxine Sodium (Levothyroxine Sodium 112 Mcg Tablet) 112 mcg PO DAILYBB [facility] Stop: 10/12/23 06:29 Last Admin: 09/12/23 06:38 Dose: 112 mcg Magnesium Oxide (Magnesium Oxide 400 Mg Tab) 400 mg PO QPM [facility] Stop: 10/12/23 20:59 Metoprolol Tartrate (Metoprolol Tartrate 50 Mg Tab) 50 mg PO BID [facility] Stop: 10/12/23 08:59 Miscellaneous (Carbohydrates For Hypoglycemia ) 15 - 30 gm PO UD PRN PRN Reason: Hypoglycemia Protocol Stop: 10/12/23 01:58 Multivitamins (Multivitamin Tab) 1 tab PO QPM [facility] Stop: 10/12/23 20:59 Nitroglycerin (Nitroglycerin Sl 0.4 Mg/Tab Tab) 0.4 mg SL Q5M PRN PRN Reason: Chest Pain Stop: 10/11/23 23:50 Oxycodone HCl (Oxycodone Hcl Ir 5 Mg Tab (Immediate Release)) 5 mg PO Q4H PRN PRN Reason: Pain Stop: 09/26/23 00:00 Pantoprazole Sodium (Pantoprazole 40 Mg Tab) 40 mg PO QAM [facility] Stop: 10/12/23 08:59 Polyethylene Glycol (Polyethylene (Miralax) 17 Gm Pack) 17 gm PO DAILY PRN PRN Reason: Constipation Stop: 10/11/23 23:50 Polyethylene Glycol (Polyethylene (Miralax) 17 Gm Pack) 17 gm PO QAM [facility] Stop: 10/12/23 08:59 Rosuvastatin Calcium (Rosuvastatin Calcium 10 Mg Tab) 10 mg PO HS [facility] Stop: 10/12/23 20:59 Sodium Chloride (Sodium Chloride 0.65% Na Soln 45 Ml ([place])) 2 sprays NA Q8 PRN PRN Reason: DRYNESS Stop: 10/12/23 00:00 Sodium Zirconium Cyclosilicate (Sodium Zirconium Cyclosilicate 10 Gm Packet) 10 gm PO TID [facility] Stop: 09/13/23 14:01 Last Admin: 09/12/23 02:12 Dose: 10 gm Tamsulosin HCl (Tamsulosin Hcl 0.4 Mg Cap) 0.4 mg PO DAILY [facility] Stop: 10/12/23 08:59 Vitamin D (Cholecalciferol 25 Mcg (1000 Units) Tab) 25 mcg PO QAM [facility] Stop: 10/12/23 08:59 Warfarin Sodium (Warfarin Sod 1 Mg Tab) 1 mg PO HS [facility] Stop: 10/12/23 20:59
[2023-09-12] MEDS: ESCITALOPRAM OXALATE 10 MG TAB PO SCH (08:43)
[2023-09-12] MEDS: TAMSULOSIN HCL 0.4 MG CAP PO SCH (08:43)
[2023-09-12] MEDS: AMIODARONE 200 MG TAB PO SCH (08:43)
[2023-09-12] MEDS: CHOLECALCIFEROL 25 MCG (1000 UNITS) TAB PO SCH (08:43)
[2023-09-12] MEDS: PANTOprazole 40 MG TAB PO SCH (08:44)
[2023-09-12] MEDS: DOCUSATE SODIUM 100 MG CAP PO SCH (08:44)
[2023-09-12] MEDS: METOPROLOL TARTRATE 50 MG TAB PO SCH (08:44)
[2023-09-12] MEDS: POLYETHYLENE (MIRALAX) 17 GM PACK PO SCH (08:46)
[2023-09-12] MEDS: DICLOFENAC SOD 1% GEL 100 GM TUBE EXT SCH (08:46)
--- NOTE | 2023-09-12 09:55 | Urology Consultation ---
Date of Consultation September 12, 2023 Assessment & Plan (1) UTI (urinary tract infection): (2) Kidney stones: Plan Chart reviewed Patient with indwelling right ureteral stent secondary to prior hospitalization for an acute obstructing stone and infection She was extremely ill during her prior hospitalization She presented back to the hospital yesterday with significant somnolence and mental status changes She has been hemodynamically stable Her cultures are currently pending She was scheduled for outpatient surgery tomorrow, however I think this is very much in jeopardy We will continue to keep her n.p.o. after midnight tonightshe will of had greater than 24 hours of antibiotics at that time and if she has stabilized there is a possibility of surgery I discussed that her surgery could be delayed/canceled and she is understanding of the situation I also spoke with the primary team about this situation History of Present Illness Attending Physician: Jorge Cline MD History of Present Illness 73-year-old female with an indwelling right ureteral stent secondary to an obstructing calculus and infection Initial treatment started around a month ago She was scheduled for outpatient intervention tomorrow, however she presented to the hospital with increasing fatigue and somnolence as well as mental status changes She has been afebrile since arrival She has a leukocytosis of 12,000 which is relatively stable with her values over the past month Her cultures are pending She denies any severe pain although she does have right-sided discomfort This has been present since the stent was placed She seems to be mentating okay this morning Allergies Allergy/AdvReac Type Severity Reaction Status Date / Time Penicillins Allergy Intermediate URTICARIA; Verified 09/11/23 22:37 PER PT, CAN TAKE AMOXICILLIN erythromycin base AdvReac Intermediate GI UPSET Verified 09/11/23 22:37 Home Medications Medication Instructions Recorded Confirmed Type allopurinol 100 mg tablet 200 mg PO HS 02/15/18 09/11/23 History (Zyloprim) omeprazole 20 mg capsule,delayed 20 mg PO QAM 02/15/18 09/11/23 History release magnesium oxide 400 mg PO QPM 02/03/20 09/11/23 History rosuvastatin 10 mg tablet (Crestor) 10 mg PO HS 02/03/20 09/11/23 History metoprolol tartrate 50 mg tablet 50 mg PO BID #0 tabs 02/09/20 09/11/23 Rx cholecalciferol (vitamin D3) 25 1,000 unit PO QAM 06/20/20 09/11/23 History mcg (1,000 unit) capsule metformin 500 mg tablet,extended 500 mg PO QAM 06/20/20 09/11/23 History release 24 hr amiodarone 200 mg tablet 200 mg PO QAM 09/04/20 09/11/23 History multivitamin 1 tab PO QPM 03/10/21 09/11/23 History levothyroxine 112 mcg tablet 112 mcg PO QAM 04/14/21 09/11/23 History acetaminophen 500 mg tablet 500 mg PO TID PAIN/FEVER 07/15/21 09/11/23 History (Tylenol Extra Strength) iron,carbonyl 65 mg-vitamin C 125 1 tab PO MOWEFR 07/30/23 09/11/23 History mg tablet,delayed release (Vitron-C) repaglinide 0.5 mg tablet 0.5 mg PO TIDM 07/30/23 09/11/23 History ondansetron HCl 4 mg tablet 4 mg PO Q8H PRN nausea and 08/27/23 09/11/23 Rx vomiting #30 tabs tamsulosin 0.4 mg capsule 0.4 mg PO DAILY #30 caps 08/27/23 09/11/23 Rx acetaminophen 325 mg tablet 650 mg PO Q6 PRN Fever Or Pain 09/11/23 09/11/23 History (Tylenol) diclofenac sodium 1 % topical gel 4 g topical QID 09/11/23 09/11/23 History docusate sodium 100 mg capsule 100 mg PO AMHS 09/11/23 09/11/23 History escitalopram oxalate 5 mg tablet 5 mg PO QAM 09/11/23 09/11/23 History insulin lispro 100 unit/mL 1 sliding scale dose subcut ACHS 09/11/23 09/11/23 History subcutaneous solution (Humalog U-100 Insulin) menthol 0.44 %-zinc oxide 20.6 % 1 applic topical DIRECTED 09/11/23 09/11/23 History topical ointment (Calmoseptine) oxycodone 5 mg tablet 5 mg PO Q4H PRN Pain 09/11/23 09/11/23 History polyethylene glycol 3350 17 17 g PO QAM 09/11/23 09/11/23 History gram/dose oral powder (Miralax) sodium chloride 0.65 % nasal spray 2 spray intranasal Q8 PRN DRYNESS 09/11/23 09/11/23 History aerosol (Saline Nasal) warfarin 1 mg tablet 1 mg PO HS 09/11/23 09/11/23 History Patient History Medical History (HFpEF) heart failure with preserved ejection fraction PAF (paroxysmal atrial fibrillation) Rotator cuff tear arthropathy of both shoulders Venous ulcer Complex renal cyst Pseudomonas infection Osteonecrosis MRSA infection Diabetic ulcer of left foot associated with diabetes mellitus due to underlying condition, with fat layer exposed Diabetic ulcer of right foot associated with diabetes mellitus due to underlying condition, with fat layer exposed PEA (Pulseless electrical activity) Nephrolithiasis Discitis of lumbosacral region Chronic venous insufficiency Osteoarthritis Anemia MRSA (methicillin resistant Staphylococcus aureus) From wound in 2017 - Per Infection Control (04/21/21) pt does not need to be on precautions at this time T2DM (type 2 diabetes mellitus) Hx of osteomyelitis Spine (02/2020) treated at [facility] with retirement antibiotics and oxycodone for pain management Sleep apnea CPAP Hypertension Hypothyroidism Morbid obesity CVA (cerebral vascular accident) Silent > Old infarct found on remote CT imaging (dating back to at least 2017) CKD stage 3 secondary to diabetes DM II (diabetes mellitus, type II), controlled NIDDM Dyslipidemia Gout hx Anemia Hx of basal cell carcinoma Gastric ulcer due to Helicobacter pylori hx Surgical History S/P ureteral stent placement S/P panniculectomy S/P ureteral stent placement History of cystoscopy History of cataract surgery S/P panniculectomy History of umbilical hernia repair (09/11/20) History of cardioversion S/P debridement History of esophagogastroduodenoscopy (EGD) H/O repair of rotator cuff H/O left knee surgery H/O basal cell carcinoma excision Status post Mohs surgery History of carpal tunnel surgery History of arthroplasty of left knee Family History Mother Diabetes Heart disease Father Hypertension Stroke Other No family history of adverse response to anesthesia No pertinent family history Social History Smoking Status: Never smoker Second Hand Exposure: No; Do You Dip or Chew Tobacco: No; Hx Alcohol Use: Yes Alcohol type: wine Hx Substance Use: No Preferred Language: Puerto Rican Communication Ability: Effective Hearing Ability: Normal Director Of Sustainability Programs Required: No Beliefs That Will Affect Care: None marital status: / Current Living Situation: Rehab Current Living Situation Comment: [employer]. 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 How many Children do You have: 2 Feels Safe at Home: Yes Safety Concerns: Feels Safe At This Time Diet: diabetic during the past year weight has: decreased > 10 lbs Assistive Devices: Walker Physical Exam Constitutional: well developed and well nourished Neck: neck nontender Respiratory: normal respiratory effort; no respiratory distress and does not use accessory muscles Cardiovascular: Rate/Rhythm: regular rate Vessels: radial pulses present Extremities: no edema Gastrointestinal (Abdomen): Inspection/Auscultation: abdomen normal to inspection Percussion/Palpation: abdomen soft; abdomen nontender and no guarding Musculoskeletal: Head/Neck/Chest: normocephalic and head atraumatic Extremities: extremities normal to inspection Skin: no rashes and no lesions Trauma: no evidence of skin trauma Neurologic: awake; not obtunded Speech / Cognition: normal speech Motor/Sensory: no tremor Psychiatric: Orientation: alert and oriented x 3 Lymphatic: no lymphadenopathy Results & Data Vital Signs (Past 12 Hours) Vital Signs Temp Pulse Pulse Resp BP Pulse Ox O2 Del Method 09/12/23 08:07 36.6 C 79 22 118/69 94 Nasal Cannula 09/12/23 07:36 Nasal Cannula 09/12/23 07:32 80 09/12/23 06:00 99/62 L 09/12/23 02:37 36.7 C 16 09/12/23 02:00 72 175/77 H 94 Room Air 09/12/23 00:51 74 09/11/23 23:45 36.3 C L 75 16 121/81 94 Room Air 09/11/23 23:00 72 14 143/84 H 92 Room Air 09/11/23 22:45 72 17 140/70 95 Room Air 09/11/23 22:30 72 17 130/72 92 Room Air 09/11/23 22:00 72 17 133/76 93 Room Air O2 Flow Rate 09/12/23 08:07 2 09/12/23 07:36 1 09/12/23 07:32 09/12/23 06:00 09/12/23 02:37 09/12/23 02:00 09/12/23 00:51 09/11/23 23:45 09/11/23 23:00 09/11/23 22:45 09/11/23 22:30 09/11/23 22:00 PG Care Time/CCT Total # of Minutes Spent Total Time Spent with Patient: Total time spent is greater than 50% in coordination of care (as documented) at patient's floor/unit and/or counseling patient: Coding Level of Care Code 78642 INT INP/OBS CARE 2/55MIN Diagnoses UTI (urinary tract infection) N30.00 Hematuria presence: without hematuria Urinary tract infection type: acute cystitis Kidney stones N20.0 (1) UTI (urinary tract infection) Hematuria presence: without hematuria Urinary tract infection type: acute cystitis Qualified Code(s): N30.00 - Acute cystitis without hematuria
[2023-09-12 11:26] LABS: A calco-baum cmplx NotReported Not Detected (NotDetected); Bact fragilis Not Reported Not Detected (NotDetected); Blood Culture Id Panel See PCR Comment (NotDetected); C auris Not Reported Not Detected (NotDetected); CTX-M Resistant Gene Not Detected (NotDetected); Calbicans Not Reported Not Detected (NotDetected); Candida glabrata Not Reported Not Detected (NotDetected); Candida krusei Not Reported Not Detected (NotDetected); Cneoformans/gatti Not Reported Not Detected (NotDetected); Cparapsilosis Not Reported Not Detected (NotDetected); E cloacae compx Not Reported Not Detected (NotDetected); Efaecalis Not Reported Not Detected (NotDetected); Efaecium Not Reported Not Detected (NotDetected); Enterobacterales DETECTED (NotDetected); Enterobacterales Not Reported DETECTED (NotDetected); Escherichia coli Not Reported DETECTED (NotDetected); H influenzae Not Reported Not Detected (NotDetected); IMP Resistant Gene Not Detected (NotDetected); K aerogenes Not Reported Not Detected (NotDetected); KPC Resistant Gene Not Detected (NotDetected); Koxytoca Not Reported Not Detected (NotDetected); Kpneumoniae grp Not Reported Not Detected (NotDetected); Lmonocyt Not Reported Not Detected (NotDetected); N meningitidis Not Reported Not Detected (NotDetected); NDM Resistant Gene Not Detected (NotDetected); OXA 48 Like Resistant Gene Not Detected (NotDetected); P aeruginosa Not Reported Not Detected (NotDetected); Proteus spp Not Reported Not Detected (NotDetected); Salmonella spp Not Reported Not Detected (NotDetected); Smarcescens Not Reported Not Detected (NotDetected); Staph lugdunensis Not Reported Not Detected (NotDetected); Staph spp. Not Reported Not Detected (NotDetected); Staphaureus Not Reported Not Detected (NotDetected); Staphepi Not Reported Not Detected (NotDetected); Stenmaltophilia Not Reported Not Detected (NotDetected); Strep agal(GrpB) Not Reported Not Detected (NotDetected); Strep pneum Not Reported Not Detected (NotDetected); Strep pyog (GrpA) Not Reported Not Detected (NotDetected); Strep spp Not Reported Not Detected (NotDetected); VIM Resistant Gene Not Detected (NotDetected); mcr-1 Colistin Resistant Gene Not Detected (NotDetected)
[2023-09-12 11:38] LABS: BUN Creatinine Ratio 52.3 (10-20); Calcium 8.3 mg/dl (8.6-10.3); Creatinine Clr Calc Pharmacy 45.8 ml/min; Est GFR (Non-African American) 41.4 ml/min; Potassium 4.6 mmol/L (3.5-5.1)
[2023-09-12 11:45] LABS: Troponin I High Sensitivity 16.8 pg/ml (0-14)
[2023-09-12] MEDS: ACETAMINOPHEN 325 MG TAB PO PRN (11:51)
[2023-09-12] MEDS: DAPTOmycin 200 MG in SYRINGE 0 ML IV ONE (13:35)
--- NOTE | 2023-09-12 14:11 | Nephrology Consultation ---
Date of Consultation September 12, 2023 Assessment & Plan (1) Chronic hyponatremia: chronic - eg present > 48 hrs -- hyponatremia improving from 118 at 09/10 presentation to 122 and behaving as prerenal/hypovolemic. no prior hx of this issue. Presented w/ critical hyponatremia but improved appropriately w/ NS. -cont NS current rate -monitor BMP q6h until sNa > 125 -agree w/ lokelma given hyperkalemia on presentation >> maintain eukalemia to correct Na -max Na for tomorrow AM is 128 Care coordinated w/ Dr Cline regarding IVF, sodium management/monitoring and approach to bacteremia; we are in agreement. (2) E coli bacteremia: w/ E coli and Enterobacter on admission cultures -monitor for septic shock to which she's prone -continue zosyn/daptomycin -? if would benefit from stent exchange; obviously not a time for stone extraction; urology following -consider ID c/s given second bacteremia admission in 5 wks History of Present Illness Reason for Consultation: hyponatremia Requesting Physician: Dr Stinson Attending Physician: Jorge Cline MD History of Present Illness 73 y/o F whom I'm asked to see for hyponatremia was admitted for septicemia after presenting with altered mental status in setting of UTI. Admitted from [facility] where she was doing rehab with presenting sodium 118, K 5.5; sodium corrected quickly to 122 w/ NS and stable since but K up to 6.4 at 0100 today and now down to 4.6. Blood cultures are positive for E coli and Enterobacter. PMH includes CKD 3 baseline creatinine 1.1-1.2, presumptive calcium oxalate kidney stones; chronic hyponatremia; DM2, HFpEF, pAF on coumadin, obstructive sleep apnea on CPAP and nocturnal 02, pulmonary hypertension, chronic LE ulcers, chronic back pain, chronic ambulatory dysfunction walks on 2 canes at baseline, NAFLD, gout, hyperlipidemia, hypothyroidism, obesity, GERD, chronic bilateral low back pain, history of CVA, history of gastric ulcer. Follows w/ me in CKD clinic for metabolic management of stones. Several admissions for septic shock past few years: Admitted [facility] February 2020 with severe sepsis, group B beta-hemolytic strep possibly from lower abdominal cellulitis; cxs also grew Proteus. Lumbar diskitis/possible osteomyelitis noted. Status post August 2020 panniculectomy. Admitted [facility] March 2021 for Proteus bacteremia/pyelonephritis in setting of obstructive uropathy. Admitted [facility] 04/22/21-05/07/21 for septic shock one day after OP stent replacement; she presented obtunded and had cardiac arrest in ER just after intubation; VDRF x 1 wk. In wake of pressors has chronic wounds on feet for which still following at wound clinic. Admitted here 07/29-08/10/23 with septic shock from E coli bacteremia and R ureteral calculus, c/b adenovirus infection, pressor requirement, SAJAN w/ peak creatinine 4.2; was 1.2 by hospital d/c. Also had hyponatremia that admission with sodium 131 at d/c. Urology saw her late august and planned R ureteroscopy and laser lithotripsy/basket stone extraction for next week. Her sodium had downtrended since d/c > was at 124 then 123 on september 01 and respectively. Here uOsm 292; Sandip 12; sOsm 276. Potassium treated medically w/ insulin and lokelma. Currently getting NS at 150 mL/hr since MA after 2L NS in ER. Also on zosyn/daptomycin. Urology following. On presentation lethargic but arouseable/ oriented x 3; MS much improved during the day; was showing videos earlier to those in room. No n/v, no malaise; no sob, no edema. low appetite reported but tolerates po. no dysuria/gross hematuria/ flank pain. no f/c/rigors. ROS limited by her fatigue. Allergies Allergy/AdvReac Type Severity Reaction Status Date / Time Penicillins Allergy Intermediate URTICARIA; Verified 09/11/23 22:37 PER PT, CAN TAKE AMOXICILLIN erythromycin base AdvReac Intermediate GI UPSET Verified 09/11/23 22:37 Home Medications Medication Instructions Recorded Confirmed Type allopurinol 100 mg tablet 200 mg PO HS 02/15/18 09/11/23 History (Zyloprim) omeprazole 20 mg capsule,delayed 20 mg PO QAM 02/15/18 09/11/23 History release magnesium oxide 400 mg PO QPM 02/03/20 09/11/23 History rosuvastatin 10 mg tablet (Crestor) 10 mg PO HS 02/03/20 09/11/23 History metoprolol tartrate 50 mg tablet 50 mg PO BID #0 tabs 02/09/20 09/11/23 Rx cholecalciferol (vitamin D3) 25 1,000 unit PO QAM 06/20/20 09/11/23 History mcg (1,000 unit) capsule metformin 500 mg tablet,extended 500 mg PO QAM 06/20/20 09/11/23 History release 24 hr amiodarone 200 mg tablet 200 mg PO QAM 09/04/20 09/11/23 History multivitamin 1 tab PO QPM 03/10/21 09/11/23 History levothyroxine 112 mcg tablet 112 mcg PO QAM 04/14/21 09/11/23 History acetaminophen 500 mg tablet 500 mg PO TID PAIN/FEVER 07/15/21 09/11/23 History (Tylenol Extra Strength) iron,carbonyl 65 mg-vitamin C 125 1 tab PO MOWEFR 07/30/23 09/11/23 History mg tablet,delayed release (Vitron-C) repaglinide 0.5 mg tablet 0.5 mg PO TIDM 07/30/23 09/11/23 History ondansetron HCl 4 mg tablet 4 mg PO Q8H PRN nausea and 08/27/23 09/11/23 Rx vomiting #30 tabs tamsulosin 0.4 mg capsule 0.4 mg PO DAILY #30 caps 08/27/23 09/11/23 Rx acetaminophen 325 mg tablet 650 mg PO Q6 PRN Fever Or Pain 09/11/23 09/11/23 History (Tylenol) diclofenac sodium 1 % topical gel 4 g topical QID 09/11/23 09/11/23 History docusate sodium 100 mg capsule 100 mg PO AMHS 09/11/23 09/11/23 History escitalopram oxalate 5 mg tablet 5 mg PO QAM 09/11/23 09/11/23 History insulin lispro 100 unit/mL 1 sliding scale dose subcut ACHS 09/11/23 09/11/23 History subcutaneous solution (Humalog U-100 Insulin) menthol 0.44 %-zinc oxide 20.6 % 1 applic topical DIRECTED 09/11/23 09/11/23 History topical ointment (Calmoseptine) oxycodone 5 mg tablet 5 mg PO Q4H PRN Pain 09/11/23 09/11/23 History polyethylene glycol 3350 17 17 g PO QAM 09/11/23 09/11/23 History gram/dose oral powder (Miralax) sodium chloride 0.65 % nasal spray 2 spray intranasal Q8 PRN DRYNESS 09/11/23 09/11/23 History aerosol (Saline Nasal) warfarin 1 mg tablet 1 mg PO HS 09/11/23 09/11/23 History Patient History Medical History (HFpEF) heart failure with preserved ejection fraction PAF (paroxysmal atrial fibrillation) Rotator cuff tear arthropathy of both shoulders Venous ulcer Complex renal cyst Pseudomonas infection Osteonecrosis MRSA infection Diabetic ulcer of left foot associated with diabetes mellitus due to underlying condition, with fat layer exposed Diabetic ulcer of right foot associated with diabetes mellitus due to underlying condition, with fat layer exposed PEA (Pulseless electrical activity) Nephrolithiasis Discitis of lumbosacral region Chronic venous insufficiency Osteoarthritis Anemia MRSA (methicillin resistant Staphylococcus aureus) From wound in 2017 - Per Infection Control (04/21/21) pt does not need to be on precautions at this time T2DM (type 2 diabetes mellitus) Hx of osteomyelitis Spine (02/2020) treated at [facility] 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 churn antibiotics and oxycodone for pain management Sleep apnea CPAP Hypertension Hypothyroidism Morbid obesity CVA (cerebral vascular accident) Silent > Old infarct found on remote CT imaging (dating back to at least 2017) CKD stage 3 secondary to diabetes DM II (diabetes mellitus, type II), controlled NIDDM Dyslipidemia Gout hx Anemia Hx of basal cell carcinoma Gastric ulcer due to Helicobacter pylori hx Surgical History S/P ureteral stent placement S/P panniculectomy S/P ureteral stent placement History of cystoscopy History of cataract surgery S/P panniculectomy History of umbilical hernia repair (09/11/20) Umbilical Hernia Repair with [employer]esh - Pete Zafar, DO, FACS History of cardioversion RASHID with cardioversion (02/07/20): MAC sedation at [facility] S/P debridement multiple abdominal debridements at [facility]. 08/2020 History of esophagogastroduodenoscopy (EGD) H/O repair of rotator cuff right H/O left knee surgery multiple knee arthroscopy on left H/O basal cell carcinoma excision Status post Mohs surgery History of carpal tunnel surgery History of arthroplasty of left knee Family History Mother Diabetes Heart disease Father Hypertension Stroke Other No family history of adverse response to anesthesia No pertinent family history Social History Smoking Status: Never smoker Second Hand Exposure: No; Do You Dip or Chew Tobacco: No; Hx Alcohol Use: Yes Alcohol type: wine Hx Substance Use: No Preferred Language: Nicaraguan Communication Ability: Effective Hearing Ability: Normal [employer] Work Supervisor Required: No Beliefs That Will Affect Care: None marital status: / Current Living Situation: Rehab Current Living Situation Comment: [employer]. 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 How many Children do You have: 2 Feels Safe at Home: Yes Safety Concerns: Feels Safe At This Time Diet: diabetic during the past year weight has: decreased > 10 lbs Assistive Devices: CPAP, Lift Chair and Walker Review of Systems 2 Review of Systems: All systems reviewed & are unremarkable except as noted in HPI & below Physical Exam 2 Constitutional: well developed, well nourished, + morbidly obese and + altered mental status (snoring/sleeping soundly when I enter room; arouses only briefly); no acute distress Eyes: EOM intact bilaterally ENMT: Ears: no external ear abnormality Nose: no external nose abnormality Mouth: + dry oral mucous membranes Neck: no nuchal rigidity Respiratory: normal respiratory effort Auscultation: + diminished lung sounds Cardiovascular: Rate/Rhythm: regular rate and regular rhythm Heart Sounds: + murmur Extremities: no edema Gastrointestinal (Abdomen): Inspection/Auscultation: normal bowel sounds P ercussion/Palpation: abdomen soft; abdomen nontender Musculoskeletal: Extremities: strength 5/5 throughout Skin: no rashes, warm and dry Neurologic: urias, fluent speech, no tremor Results & Data Vital Signs (Past 12 Hours) Vital Signs Temp Pulse Pulse Resp BP Pulse Ox O2 Del Method 09/12/23 12:07 37.0 C 75 18 99/63 L 95 Room Air 09/12/23 08:07 36.6 C 79 22 118/69 94 Nasal Cannula 09/12/23 07:36 Nasal Cannula 09/12/23 07:32 80 09/12/23 06:00 99/62 L 09/12/23 02:37 36.7 C 16 O2 Flow Rate 09/12/23 12:07 09/12/23 08:07 2 09/12/23 07:36 1 09/12/23 07:32 09/12/23 06:00 09/12/23 02:37 Laboratory Results 09/12/23 05:58 09/12/23 10:[address] a/p noncon IMPRESSION: 1. No acute abnormality and in particular no evidence of right hydronephrosis. The nephroureteral stent remains in place. 2. Diverticulosis without diverticulitis. 3. Additional findings as above. CXR no vol OL or PNA
[2023-09-12] MEDS: ALBUMIN 25% 25 GM/100 ML VIAL IV ONE (14:24)
[2023-09-12 17:25] LABS: BUN Creatinine Ratio 47.3 (10-20); Calcium 8.3 mg/dl (8.6-10.3); Creatinine Clr Calc Pharmacy 45.5 ml/min; Est GFR (African American) 47.6 ml/min; Potassium 4.4 mmol/L (3.5-5.1)
[2023-09-12 17:31] LABS: Troponin I High Sensitivity 17.7 pg/ml (0-14)
[2023-09-12] MEDS: WARFARIN SOD 1 MG TAB PO SCH (20:35)
[2023-09-12] MEDS: allopurinoL 100 MG TAB PO SCH (20:36)
[2023-09-12] MEDS: MAGNESIUM OXIDE 400 MG TAB PO SCH (20:38)
[2023-09-12] MEDS: ROSUVASTATIN CALCIUM 10 MG TAB PO SCH (20:38)
[2023-09-12] MEDS: MULTIVITAMIN TAB PO SCH (20:39)
[2023-09-12 23:32] LABS: BUN Creatinine Ratio 46.3 (10-20); Calcium 8.3 mg/dl (8.6-10.3); Creatinine Clr Calc Pharmacy 48.5 ml/min; Est GFR (African American) 51.4 ml/min; Est GFR (Non-African American) 44.4 ml/min; Potassium 3.9 mmol/L (3.5-5.1)
[2023-09-13] MEDS ORDERED: NON-FORMULARY MEDICATION (Iron,Carbonyl-Vitamin C [Vitron-C] 65 mg iron- 125 mg Tablet,Del PO SCH (00:01)
[2023-09-13] MEDS: DAPTOmycin 700 MG in SYRINGE 0 ML IV SCH (02:20)
[2023-09-13 06:37] LABS: Hematocrit (blood only) 23.3 % (37.0-47.0); Hemoglobin 7.4 g/dl (12.0-16.0); Mean Corpuscular Hgb Conc 31.8 g/dL (32.0-36.0); Mean Platelet Volume 9.3 fL (9.4-12.4); Platelet Count 265 K/uL (130-400); RDW Coefficient of Variation 16.6 % (11.5-14.5); RDW Standard Deviation 51.1 fL (36.4-46.3); Red Blood Count 2.74 M/uL (4.20-5.40); White Blood Count 8.55 K/ul (4.8-10.8)
[2023-09-13 06:49] LABS: INR 1.7 (0.9-1.1); Prothrombin Time 17.3 Seconds (9.0-12.0)
[2023-09-13 07:37] LABS: BUN Creatinine Ratio 43.6 (10-20); Calcium 8.2 mg/dl (8.6-10.3); Creatinine Clr Calc Pharmacy 53.6 ml/min; Est GFR (African American) 57.7 ml/min; Est GFR (Non-African American) 49.8 ml/min; Magnesium 2.5 mg/dl (1.7-2.4); Phosphorus 3.8 mg/dl (2.5-4.9); Potassium 3.9 mmol/L (3.5-5.1)
--- NOTE | 2023-09-13 07:38 | Hospitalist Progress Note ---
Date of Service September 13, 2023 Assessment & Plan (1) AMS (altered mental status): Plan: 73 yo F with type 2 diabetes, gout, hyperlipidemia, hypothyroidism, obstructive sleep apnea on CPAP, paroxysmal atrial fibrillation, chronic diastolic CHF, CKD stage III, pulmonary hypertension, obesity, GERD, chronic bilateral low back pain, history of CVA, history of gastric ulcer comes from [facility] because of patient being sleeping more and less interactive. Patient was admitted on July 30, 2023 with UTI and sepsis and right ureteral calculus had adenovirus infection and SAJAN with creatinine of 4.2 and then patient was in septic shock requiring pressors cultures growing VRE, E. coli and Proteus mirabilis in the urine and blood cultures growing E. coli and antibiotics were tapered to IV ampicillin per ID to complete 14-day course and she is s/p right ureteral stent placement. kidney function improved and she was discharged to residential on August 10, 2023. Patient currently somewhat drowsy. But alert and oriented x 3. States is not ambulated since last 3 weeks. States feeling depressed. Denies any headache. No blurred vision. No earache or runny nose or sore throat. No cough. States appetite is down but swallowing okay. Denies chest pain or shortness of breath. No nausea or vomiting. No abdominal pain. Normal bowel and bladder movements. Initially when she came in her blood pressure was soft systolic blood pressure 90s but improved with the fluids. Altered mental status - mental status now improved Mostly from UTI, bacteremia Hyponatremia Recently had urine cultures growing Enterococcus faecalis resistant to vancomycin but was sensitive to ampicillin and daptomycin. Urine cultures were also positive for E. coli and Proteus and blood cultures were positive for pansensitive E. coli.Completed 14days of iv ampicillin. Received Zosyn in the ER. Will continue Zosyn and IV Dapto until further cultures are available. Blood cultx - posit. for GNN Ucultx - E.coli, Lactobacillus Initially was borderline hypotensive improved with the fluids gentle fluids Last admission right nephroureteral stent was placed which is intact on the current CAT scan Urology consulted and discussed with - Pt was scheduled for outpatient procedure for stone treatment and stent exchange on 09/16/23. - Given her positive blood and urine cultures, she will need to be on IV antibiotic for several days prior to intervention. - Ideally if she remains inpatient and is improving on IV antibiotics, we will plan to proceed 5/16/[address] Edwards. Close monitoring on telemetry. Acute on chronic hyponatremia Presented with sodium of 118 Her sodium was 128s to 130s last admission Recently on September 01 and September 05 sodium was 124 and 123 Got fluids for low blood pressure Will check urine osmolality, urine sodium, serum osmolality Close monitor of labs Slow correction of sodium Current Na 127 Nephrology consulted to help with slow correction Hyperkalemia Potassium 5.5 repeat labs K was 6.4. received iv insulin 10units, amp of d50 and iv calcium gluconate and placed on Lokelma. Nephrology consulted Elevated troponin Troponin 16 mostly demand ischemia Will follow serial exams Obstructive sleep apnea CPAP nightly refused cpap says she was on cpap for last 5-6yrs but not using for last 6 weeks as mask was not fitting. She got new mask but not started using it yet as she had cold symptoms. She did not want to start, can try again tonight CKD stage III Presented with creatinine 1.4 seems around baseline Will follow the labs Diabetes Will hold home p.o. medications Sliding scale and lantus 5units daily for now Will monitor History of paroxysmal atrial fibrillation On amiodarone and metoprolol and Coumadin INR 1.5 Needs adjustment of Coumadin dose Follow PT/INR Looks like she was on 3mg Coumadin daily and her inr was running high and Coumadin dose was reduced. Because of anasarca and hypoalbuminemia liver ultrasound was done at [facility] but was negative for cirrhosis per notes from residential. Can consider novel agents Close monitor Chronic diastolic CHF Was on spironolactone and Bumex last admission but seems stopped at [place] for hyponatremia and ? worsening kidney function Seems currently not on diuretics Will monitor for volume overload Await nephro input Gout On allopurinol Depression recently started on Lexapro Hypothyroidism On Synthyroid Hyperlipidemia On statin GERD On omeprazole Hypertension Lisinopril and amlodipine were held at time of discharge last admission on metoprolol Will monitor DVT prophylaxis On Coumadin but INR subtherapeutic at 1.5 Prophylactic Lovenox until INR therapeutic Disposition - Telemetry Full code per admitting provider's discussion with the patient Admission and Anticipated Discharge Date Admission Date: September 11, 2023 Subjective Pt seen in follow up of UTI , bacteremia, hx of renal stone, s/p ureteral stent placement and followed by severe sepsis Now also presents with hyperkalemia, hyponatremia - Nephrology and urology consulted Pt presented w/ AMS, currently feels better and able to answer simple questions appropriately, more awake today. Daughters present at the bedside. Currently no fever, chills, chest pain or shortness of breath. Reports back pain. Urology and nephrology following. Review of Systems Review of Systems: All systems reviewed & are unremarkable except as noted in Subjective Physical Exam Physical Exam: General- obese elderly F , chronically ill appearing in NAD Head- NC/AT Eyes- PERRL. Neck- supple, no JVD. Lungs- clear to auscultation no wheezing or crackles. Heart- regular rhythm; no murmur, no gallop. Abdomen- normal bowel sounds, soft, nontender, no distension, + obese abdomen Extremities- no pretibial edema, no erythema seen, moves extremities Neuro- alert, oriented x 3 but drowsy; PERRL, ; no facial palsy; no dysarthria; obeys simple commands, moves extremities. Results & Data Results & Data Vital Signs (Past 12 Hours) Vital Signs Temp Pulse Pulse Resp BP Pulse Ox O2 Del Method 09/13/23 02:35 36.4 C L 64 20 124/75 96 Nasal Cannula 09/13/23 01:35 65 09/12/23 22:59 36.6 C 82 18 117/68 94 Nasal Cannula 09/12/23 20:07 Room Air O2 Flow Rate 09/13/23 02:35 2 09/13/23 01:35 09/12/23 22:59 2 09/12/23 20:07 Laboratory Results 09/13/23 09/12/23 09/12/23 Range/Units 06:07 22:52 20:03 WBC 8.55 (4.8-10.8) K/ul RBC 2.74 L (4.20-5.40) M/uL Hgb 7.4 L (12.0-16.0) g/dl Hct 23.3 L (37.0-47.0) % MCV 85.0 (80.0-100.0) fL MCH 27.0 (25.0-34.0) pg MCHC 31.8 L (32.0-36.0) g/dL RDW Std Deviation 51.1 H (36.4-46.3) fL RDW Coeff of Yvette 16.6 H (11.5-14.5) % Plt Count 265 (130-400) K/uL MPV 9.3 L (9.4-12.4) fL PT 17.3 H (9.0-12.0) Seconds INR 1.7 H (0.9-1.1) Sodium Pending 127 L (136-145) mmol/L Potassium Pending 3.9 (3.5-5.1) mmol/L Chloride Pending 94 L (98-107) mmol/L Carbon Dioxide Pending 26 (21-32) mmol/L Anion Gap Pending 7 (3-11) BUN Pending 56 H (6-23) mg/dl Creatinine Pending 1.21 H (0.6-1.2) mg/dl Est Cr Clr Drug Dosing Pending 48.5 ml/min Est GFR ( Amer) Pending 51.4 ml/min Est GFR (Non-Af Amer) Pending 44.4 ml/min BUN/Creatinine Ratio Pending 46.3 H (10-20) Glucose Pending 82 (70-99(Fasting)) mg/dl POC Glucose 108 H (70-99) mg/dl Calcium Pending 8.3 L (8.6-10.3) mg/dl Phosphorus Pending Magnesium Pending Troponin I High Sens (0-14) pg/ml Enterobacterales (PCR) (NotDetected) E. coli (PCR) (NotDetected) mcr-1 Colistin Res Gene PCR (NotDetected) blaIMP Car res Gene PCR (NotDetected) KPC-Carbap Res Gene PCR (NotDetected) blaNDM Car Res Gene PCR (NotDetected) OXA-48 Carbapenem Resis Gene (PCR) (NotDetected) blaVIM Car Res Gene PCR (NotDetected) CTX-M Gene Resistance (PCR) (NotDetected) Bld Cult ID Panel PCR (NotDetected) 09/12/23 09/12/23 09/12/23 Range/Units 16:50 16:16 11:27 WBC (4.8-10.8) K/ul RBC (4.20-5.40) M/uL Hgb (12.0-16.0) g/dl Hct (37.0-47.0) % MCV (80.0-100.0) fL MCH (25.0-34.0) pg MCHC (32.0-36.0) g/dL RDW Std Deviation (36.4-46.3) fL RDW Coeff of Yvette (11.5-14.5) % Plt Count (130-400) K/uL MPV (9.4-12.4) fL PT (9.0-12.0) Seconds INR (0.9-1.1) Sodium 125 L (136-145) mmol/L Potassium 4.4 (3.5-5.1) mmol/L Chloride 92 L (98-107) mmol/L Carbon Dioxide 27 (21-32) mmol/L Anion Gap 6 (3-11) BUN 61 H (6-23) mg/dl Creatinine 1.29 H (0.6-1.2) mg/dl Est Cr Clr Drug Dosing 45.5 ml/min Est GFR ( Amer) 47.6 ml/min Est GFR (Non-Af Amer) 41.0 ml/min BUN/Creatinine Ratio 47.3 H (10-20) Glucose 83 (70-99(Fasting)) mg/dl POC Glucose 106 H 99 (70-99) mg/dl Calcium 8.3 L (8.6-10.3) mg/dl Phosphorus Magnesium Troponin I High Sens 17.7 H (0-14) pg/ml Enterobacterales (PCR) (NotDetected) E. coli (PCR) (NotDetected) mcr-1 Colistin Res Gene PCR (NotDetected) blaIMP Car res Gene PCR (NotDetected) KPC-Carbap Res Gene PCR (NotDetected) blaNDM Car Res Gene PCR (NotDetected) OXA-48 Carbapenem Resis Gene (PCR) (NotDetected) blaVIM Car Res Gene PCR (NotDetected) CTX-M Gene Resistance (PCR) (NotDetected) Bld Cult ID Panel PCR (NotDetected) 09/12/23 09/11/23 Range/Units 10:57 19:40 WBC (4.8-10.8) K/ul RBC (4.20-5.40) M/uL Hgb (12.0-16.0) g/dl Hct (37.0-47.0) % MCV (80.0-100.0) fL MCH (25.0-34.0) pg MCHC (32.0-36.0) g/dL RDW Std Deviation (36.4-46.3) fL RDW Coeff of Yvette (11.5-14.5) % Plt Count (130-400) K/uL MPV (9.4-12.4) fL PT (9.0-12.0) Seconds INR (0.9-1.1) Sodium 122 L (136-145) mmol/L Potassium 4.6 (3.5-5.1) mmol/L Chloride 90 L (98-107) mmol/L Carbon Dioxide 26 (21-32) mmol/L Anion Gap 6 (3-11) BUN 67 H (6-23) mg/dl Creatinine 1.28 H (0.6-1.2) mg/dl Est Cr Clr Drug Dosing 45.8 ml/min Est GFR ( Amer) 48.0 ml/min Est GFR (Non-Af Amer) 41.4 ml/min BUN/Creatinine Ratio 52.3 H (10-20) Glucose 88 (70-99(Fasting)) mg/dl POC Glucose (70-99) mg/dl Calcium 8.3 L (8.6-10.3) mg/dl Phosphorus Magnesium Troponin I High Sens 16.8 H (0-14) pg/ml Enterobacterales (PCR) DETECTED A (NotDetected) E. coli (PCR) DETECTED A (NotDetected) mcr-1 Colistin Res Gene PCR Not Detected (NotDetected) blaIMP Car res Gene PCR Not Detected (NotDetected) KPC-Carbap Res Gene PCR Not Detected (NotDetected) blaNDM Car Res Gene PCR Not Detected (NotDetected) OXA-48 Carbapenem Resis Gene (PCR) Not Detected (NotDetected) blaVIM Car Res Gene PCR Not Detected (NotDetected) CTX-M Gene Resistance (PCR) Not Detected (NotDetected) Bld Cult ID Panel PCR See PCR Comment (NotDetected) Medications Administered Current Inpatient Medications Acetaminophen (Acetaminophen 325 Mg Tab) 650 mg PO Q4H PRN PRN Reason: Pain or Fever Stop: 10/11/23 23:50 Last Admin: 09/12/23 20:47 Dose: 650 mg Allopurinol (Allopurinol 100 Mg Tab) 200 mg PO HS [facility] Stop: 10/12/23 20:59 Last Admin: 09/12/23 20:36 Dose: 200 mg Amiodarone HCl (Amiodarone 200 Mg Tab) 200 mg PO QAM [facility] Stop: 10/12/23 08:59 Last Admin: 09/12/23 08:43 Dose: 200 mg Ascorbic Acid (Ascorbic Acid 500 Mg Tab) 250 mg PO MoWeFr@0900 [facility] Stop: 10/13/23 08:59 Dextrose (Dextrose 50% 50 Ml Syringe) 25 - 50 ml IV UD PRN; Protocol PRN Reason: Hypoglycemia Protocol Stop: 10/12/23 01:58 Diclofenac Sodium (Diclofenac Sod 1% Gel 100 Gm Tube) 4 gm EXT QID [facility]; Protocol Stop: 10/12/23 08:59 Last Admin: 09/12/23 20:29 Dose: 4 gm Docusate Sodium (Docusate Sodium 100 Mg Cap) 100 mg PO BID [facility] Stop: 10/12/23 08:59 Last Admin: 09/12/23 20:37 Dose: Not Given Enoxaparin Sodium (Enoxaparin Inj 40 Mg/0.4 Ml Syr) 40 mg SQ Q12H [facility] Stop: 10/12/23 07:59 Last Admin: 09/12/23 19:27 Dose: 40 mg Escitalopram Oxalate (Escitalopram Oxalate 10 Mg Tab) 5 mg PO QAM [facility] Stop: 10/12/23 08:59 Last Admin: 09/12/23 08:43 Dose: 5 mg Ferrous Sulfate (Ferrous Sulfate 325 Mg Tab) 325 mg PO MoWeFr@0900 [facility] Stop: 10/13/23 08:59 Glucagon (Glucagon For Inj 1 Mg Vial) 1 mg SQ UD PRN; Protocol PRN Reason: Hypoglycemia Protocol Stop: 10/12/23 01:58 Glucose (Glucose 40% Gel 15 Gm Tube) 15 - 30 gm PO UD PRN; Protocol PRN Reason: Hypoglycemia Protocol Stop: 10/12/23 01:58 Glucose (Glucose 10 Tab/Tube) 4 - 8 tab PO UD PRN; Protocol PRN Reason: Hypoglycemia Treatment Stop: 10/12/23 01:58 Sodium Chloride (Nss) 1,000 mls @ 75 mls/hr IV .[id number] [facility] Stop: 10/11/23 23:50 Last Admin: 09/13/23 00:18 Dose: 75 mls/hr Piperacillin Sod/Tazobactam (Sod 4.5 gm/ Dextrose) 100 mls @ 25 mls/hr IV Q8H [facility]; Protocol Stop: 09/22/23 02:59 Last Infusion: 09/13/23 06:19 Dose: Infused Daptomycin 700 mg/ Syringe 14 mls @ 7 mls/min IV Q24H [facility]; Protocol Stop: 09/22/23 01:59 Last Admin: 09/13/23 02:20 Dose: 7 mls/min Insulin Aspart (Insulin Aspart Per Unit Charge) 0 units SC ACHS [facility] Stop: 10/12/23 07:29 Last Admin: 09/12/23 20:37 Dose: Not Given Insulin Glargine (Lantus Per Unit Charge) 5 units SQ DAILY [facility] Stop: 10/12/23 08:59 Last Admin: 09/12/23 08:33 Dose: 5 units Levothyroxine Sodium (Levothyroxine Sodium 112 Mcg Tablet) 112 mcg PO DAILYBB [facility] Stop: 10/12/23 06:29 Last Admin: 09/13/23 05:35 Dose: 112 mcg Magnesium Oxide (Magnesium Oxide 400 Mg Tab) 400 mg PO QPM [facility] Stop: 10/12/23 20:59 Last Admin: 09/12/23 20:38 Dose: 400 mg Metoprolol Tartrate (Metoprolol Tartrate 50 Mg Tab) 50 mg PO BID [facility] Stop: 10/12/23 08:59 Last Admin: 09/12/23 20:40 Dose: 50 mg Miscellaneous (Carbohydrates For Hypoglycemia ) 15 - 30 gm PO UD PRN PRN Reason: Hypoglycemia Protocol Stop: 10/12/23 01:58 Multivitamins (Multivitamin Tab) 1 tab PO QPM [facility] Stop: 10/12/23 20:59 Last Admin: 09/12/23 20:39 Dose: 1 tab Nitroglycerin (Nitroglycerin Sl 0.4 Mg/Tab Tab) 0.4 mg SL Q5M PRN PRN Reason: Chest Pain Stop: 10/11/23 23:50 Oxycodone HCl (Oxycodone Hcl Ir 5 Mg Tab (Immediate Release)) 5 mg PO Q4H PRN PRN Reason: Pain Stop: 09/26/23 00:00 Pantoprazole Sodium (Pantoprazole 40 Mg Tab) 40 mg PO QAM [facility] Stop: 10/12/23 08:59 Last Admin: 09/12/23 08:44 Dose: 40 mg Polyethylene Glycol (Polyethylene (Miralax) 17 Gm Pack) 17 gm PO DAILY PRN PRN Reason: Constipation Stop: 10/11/23 23:50 Polyethylene Glycol (Polyethylene (Miralax) 17 Gm Pack) 17 gm PO QAM [facility] Stop: 10/12/23 08:59 Last Admin: 09/12/23 08:46 Dose: 17 gm Rosuvastatin Calcium (Rosuvastatin Calcium 10 Mg Tab) 10 mg PO [facility] Stop: 10/12/23 20:59 Last Admin: 09/12/23 20:38 Dose: 10 mg Sodium Chloride (Sodium Chloride 0.65% Na Soln 45 Ml (Toyei)) 2 sprays NA Q8 PRN PRN Reason: DRYNESS Stop: 10/12/23 00:00 Sodium Zirconium Cyclosilicate (Sodium Zirconium Cyclosilicate 10 Gm Packet) 10 gm PO TID [facility] Stop: 09/13/23 14:01 Last Admin: 09/12/23 20:32 Dose: 10 gm Tamsulosin HCl (Tamsulosin Hcl 0.4 Mg Cap) 0.4 mg PO DAILY [facility] Stop: 10/12/23 08:59 Last Admin: 09/12/23 08:43 Dose: 0.4 mg Vitamin D (Cholecalciferol 25 Mcg (1000 Units) Tab) 25 mcg PO QAM [facility] Stop: 10/12/23 08:59 Last Admin: 09/12/23 08:43 Dose: 25 mcg Warfarin Sodium (Warfarin Sod 1 Mg Tab) 1 mg PO [facility] Stop: 10/12/23 20:59 Last Admin: 09/12/23 20:35 Dose: 1 mg
[2023-09-13] MEDS: ASCORBIC ACID 500 MG TAB PO SCH (08:45)
[2023-09-13] MEDS: FERROUS SULFATE 325 MG TAB PO SCH (08:46)
--- NOTE | 2023-09-13 10:17 | Urology Progress Note ---
Date of Service September 13, 2023 Assessment & Plan (1) Complicated UTI (urinary tract infection): (2) S/P ureteral stent placement: (3) Kidney stones: Plan - Afebrile, hemodynamically stable. - Labs today- WBC 8.55, Creatinine 1.10. - Urine culture 09/10 grew E.coli. - Blood cultures 09/10 with 1/4 gram negative bacilli; Repeat blood cultures pending. - On Zosyn/Daptomycin. ID consulted. - External cath in place, urine is clear yellow. Continue to monitor. - No plan for intervention today. - The right ureteral stent appears to be in good position on CT imaging. - She was scheduled for outpatient procedure for stone treatment and stent exchange on 09/16/23. - Given her positive blood and urine cultures, she will need to be on IV antibiotics for several days prior to intervention. - Ideally if she remains inpatient and is improving on IV antibiotics, we will tentatively plan to proceed 09/16/[address] Edwards. - Continue antibiotics and tailor as culture data becomes available. - Continue supportive care. - Discussed plan with patient/family. - Discussed with hospital team. - Urology will follow along. Plan of care reviewed with Dr. Edwards. Admission and Anticipated Discharge Date Admission Date: September 11, 2023 Subjective Pt seen at bedside this AM Awake, resting in bed on arrival No acute distress Daughters at bedside Reports intermittent R flank/back pain No fever External cath in place, urine is clear yellow Has been NPO Review of Systems Constitutional: as per Subjective / HPI Genitourinary: as per Subjective / HPI Physical Exam Constitutional: no acute distress Respiratory: no respiratory distress and no labored breathing Neurologic: awake Psychiatric: Orientation: alert, oriented x 3 and cooperative Genitourinary: Urine is clear yellow Results & Data Vital Signs (Past 12 Hours) Vital Signs Temp Pulse Pulse Resp BP Pulse Ox O2 Del Method 09/13/23 07:38 36.5 C 68 18 126/68 95 Nasal Cannula 09/13/23 07:00 68 09/13/23 02:35 36.4 C L 64 20 124/75 96 Nasal Cannula 09/13/23 01:35 65 09/12/23 22:59 36.6 C 82 18 117/68 94 Nasal Cannula O2 Flow Rate 09/13/23 07:38 1 09/13/23 07:00 09/13/23 02:35 2 09/13/23 01:35 09/12/23 22:59 2 PG Care Time/CCT Total # of Minutes Spent Total Time Spent with Patient: Total time spent is greater than 50% in coordination of care (as documented) at patient's floor/unit and/or counseling patient: Coding Level of Care Code 21008 SUB INP/OBS CARE 2/35MIN Diagnoses Complicated UTI (urinary tract infection) N39.0 S/P ureteral stent placement Z96.0 Kidney stones N20.0
--- NOTE | 2023-09-13 10:25 | Nephrology Progress Note ---
Date of Service September 13, 2023 Assessment & Plan Admission and Anticipated Discharge Date Admission Date: September 11, 2023 Subjective Assessment & Plan (1) Chronic hyponatremia: chronic -- hyponatremia improving from 118 at 09/10 presentation to 131 now with Just NS---behaving as prerenal/hypovolemic. no prior hx of this issue. Presented w/ critical hyponatremia but improved appropriately w/ NS. cont NS current rate till AM to see how high can we get the na+ monitor BMP now daily in AM. Can stop Lokelma now k is normal. Care coordinated w/ Dr Cline regarding IVF. (2) E coli bacteremia: w/ E coli and Enterobacter on admission cultures continue zosyn/daptomycin stent exchange--getting done consider ID c/s given second bacteremia admission in 5 wks S---feels thirsty. Not hungry. making lot of urine--pure wick. Physical Exam Physical Exam: General- weak. Head- atraumatic Neck- supple, no JVD. Lungs- clear to auscultation no wheezing or crackles. Heart- regular rhythm; no murmur, no gallop. Abdomen- normal bowel sounds, soft, nontender, no distension Extremities- no pretibial edema, no erythema seen Neuro- alert, oriented x 3 but drowsy; PERRL, ; no facial palsy; no dysarthria; obeys simple commands, moves extremities. Results & Data Vital Signs (Past 12 Hours) Vital Signs Temp Pulse Pulse Resp BP Pulse Ox O2 Del Method 09/13/23 07:38 36.5 C 68 18 126/68 95 Nasal Cannula 09/13/23 07:00 68 09/13/23 02:35 36.4 C L 64 20 124/75 96 Nasal Cannula 09/13/23 01:35 65 09/12/23 22:59 36.6 C 82 18 117/68 94 Nasal Cannula O2 Flow Rate 09/13/23 07:38 1 09/13/23 07:00 09/13/23 02:35 2 09/13/23 01:35 09/12/23 22:59 2
--- NOTE | 2023-09-13 15:54 | Infectious Disease Consult ---
Date of Service September 13, 2023 Telehealth Information I performed this visit using a real-time telehealth connection between my location and the patients location ([facility]). After connecting through interactive tele-video, patient was identified by name and date of and/or wristband check.Patient (or authorized healthcare sales representative leather goods) was informed that this was a telemedicine visit and it was being conducted confidentially over secure lines. My office door was closed and no one else was present in the room with me.Patient (or authorized healthcare sales representative leather goods) provided consent to proceed with the visit, expressed an understanding of privacy and security of the telemedicine visit, and gave permission to have a hospital sales representative leather goods in the room in order to assist with the visit and to conduct portions of the visit, as needed. I informed the patient (or authorized healthcare sales representative leather goods) that I reviewed their record and presented the opportunity for them to ask any questions regarding the visit today. The patient agreed to participate. Assessment & Plan (1) E coli bacteremia: (2) Complicated UTI (urinary tract infection): (3) S/P ureteral stent placement: Plan: Patient with again complicated UTI with E coli bacteremia, unclear exactly why she had reinfection of her urinary tract which raises suspicion for alternative source. She does complain of some significant back pain however unable to for form physical exam currently via telehealth. If patient has point tenderness, significantly worse back pain in the last 1 month compared to prior MRI of spine should be done to rule out another source, even though Gram-negative bacterium are lower risk they are well known to cause osteomyelitis and epidural abscesses. CT of the head is reassuring, patient is being appropriately treated currently with daptomycin and Zosyn. Given the resurgence of bacterium, may need to treat for prolonged duration however susceptibility is still pending of patient's bacteremia. If bacteremia matches urine in his pansensitive she can likely be discharged on IV ampicillin. duration of therapy potentially up to 4 weeks at this point as there is highly suspect failure of source control / inadequate duration of treatment. Final recommendations to follow sensitivities/scan results - Discontinue daptomycin/ Zosyn - ceftriaxone IV 2 g Q 24 hours - MRI of boles spine with contrast if clinically reasonable - please see attending addendum for any changes/ further information Appreciate consultation, please do not hesitate to reach out for any further questions or concerns. Lencho Mirza MD PGY4 Infectious Disease History of Present Illness History of Present Illness 73-year-old male with a past medical history of type 2 diabetes mellitus, EDYTA on CPAP, paroxysmal atrial fibrillation on Coumadin, CKD stage 3, pulmonary hypertension with diastolic CHF, history of CVA, initially presented with increased somnolence. Most recent history includes right ureteral stents secondary to acute obstructing stone 1 month prior. Urinalysis consistent with infection, culture with pansensitive E coli, 1/4 bottles positive with Gram- negative bacilli with repeated cultures pending. Urology has been consulted, patient was planned for an outpatient ureteral stent replacement today however currently being delayed due to current illness, CT of the abdomen and pelvis did not reveal any migration or dysfunction of stent. WBC currently normal, presentation 15, afebrile. Kidney function remains within limits. Patient was initiated on daptomycin and Zosyn in his currently day 2 of therapy. patient states she does have back pain chronically however has acutely worsened. Patient denies any dysuria, urgency, frequency. She notes her back pain has improved mildly since previous. She was initially treated with ampicillin at prior hospitalization and completed 14 days of appropriate antibiotic therapy. Allergies Allergy/AdvReac Type Severity Reaction Status Date / Time Penicillins Allergy Intermediate URTICARIA; Verified 09/11/23 22:37 PER PT, CAN TAKE AMOXICILLIN erythromycin base AdvReac Intermediate GI UPSET Verified 09/11/23 22:37 Home Medications Medication Instructions Recorded Confirmed Type allopurinol 100 mg tablet 200 mg PO HS 02/15/18 09/11/23 History (Zyloprim) omeprazole 20 mg capsule,delayed 20 mg PO QAM 02/15/18 09/11/23 History release magnesium oxide 400 mg PO QPM 02/03/20 09/11/23 History rosuvastatin 10 mg tablet (Crestor) 10 mg PO HS 02/03/20 09/11/23 History metoprolol tartrate 50 mg tablet 50 mg PO BID #0 tabs 02/09/20 09/11/23 Rx cholecalciferol (vitamin D3) 25 1,000 unit PO QAM 06/20/20 09/11/23 History mcg (1,000 unit) capsule metformin 500 mg tablet,extended 500 mg PO QAM 06/20/20 09/11/23 History release 24 hr amiodarone 200 mg tablet 200 mg PO QAM 09/04/20 09/11/23 History multivitamin 1 tab PO QPM 03/10/21 09/11/23 History levothyroxine 112 mcg tablet 112 mcg PO QAM 04/14/21 09/11/23 History acetaminophen 500 mg tablet 500 mg PO TID PAIN/FEVER 07/15/21 09/11/23 History (Tylenol Extra Strength) iron,carbonyl 65 mg-vitamin C 125 1 tab PO MOWEFR 07/30/23 09/11/23 History mg tablet,delayed release (Vitron-C) repaglinide 0.5 mg tablet 0.5 mg PO TIDM 07/30/23 09/11/23 History ondansetron HCl 4 mg tablet 4 mg PO Q8H PRN nausea and 08/27/23 09/11/23 Rx vomiting #30 tabs tamsulosin 0.4 mg capsule 0.4 mg PO DAILY #30 caps 08/27/23 09/11/23 Rx acetaminophen 325 mg tablet 650 mg PO Q6 PRN Fever Or Pain 09/11/23 09/11/23 History (Tylenol) diclofenac sodium 1 % topical gel 4 g topical QID 09/11/23 09/11/23 History docusate sodium 100 mg capsule 100 mg PO AMHS 09/11/23 09/11/23 History escitalopram oxalate 5 mg tablet 5 mg PO QAM 09/11/23 09/11/23 History insulin lispro 100 unit/mL 1 sliding scale dose subcut ACHS 09/11/23 09/11/23 History subcutaneous solution (Humalog U-100 Insulin) menthol 0.44 %-zinc oxide 20.6 % 1 applic topical DIRECTED 09/11/23 09/11/23 History topical ointment (Calmoseptine) oxycodone 5 mg tablet 5 mg PO Q4H PRN Pain 09/11/23 09/11/23 History polyethylene glycol 3350 17 17 g PO QAM 09/11/23 09/11/23 History gram/dose oral powder (Miralax) sodium chloride 0.65 % nasal spray 2 spray intranasal Q8 PRN DRYNESS 09/11/23 09/11/23 History aerosol (Saline Nasal) warfarin 1 mg tablet 1 mg PO HS 09/11/23 09/11/23 History Patient History Medical History (HFpEF) heart failure with preserved ejection fraction PAF (paroxysmal atrial fibrillation) Rotator cuff tear arthropathy of both shoulders Venous ulcer Complex renal cyst Pseudomonas infection Osteonecrosis MRSA infection Diabetic ulcer of left foot associated with diabetes mellitus due to underlying condition, with fat layer exposed Diabetic ulcer of right foot associated with diabetes mellitus due to underlying condition, with fat layer exposed PEA (Pulseless electrical activity) Nephrolithiasis Discitis of lumbosacral region Chronic venous insufficiency Osteoarthritis Anemia MRSA (methicillin resistant Staphylococcus aureus) From wound in 2017 - Per Infection Control (04/21/21) pt does not need to be on precautions at this time T2DM (type 2 diabetes mellitus) Hx of osteomyelitis Spine (02/2020) treated at [facility] with halfway antibiotics and oxycodone for pain management Sleep apnea CPAP Hypertension Hypothyroidism Morbid obesity CVA (cerebral vascular accident) Silent > Old infarct found on remote CT imaging (dating back to at least 2017) CKD stage 3 secondary to diabetes DM II (diabetes mellitus, type II), controlled NIDDM Dyslipidemia Gout hx Anemia Hx of basal cell carcinoma Gastric ulcer due to Helicobacter pylori hx Surgical History S/P ureteral stent placement S/P panniculectomy S/P ureteral stent placement History of cystoscopy History of cataract surgery S/P panniculectomy History of umbilical hernia repair (09/11/20) Umbilical Hernia Repair with Mesh - Pete Zafar, , FACS History of cardioversion RASHID with cardioversion (02/07/20): MAC sedation at [facility] S/P debridement multiple abdominal debridements at [facility]. 08/2020 History of esophagogastroduodenoscopy (EGD) H/O repair of rotator cuff right H/O left knee surgery multiple knee arthroscopy on left H/O basal cell carcinoma excision Status post Mohs surgery History of carpal tunnel surgery History of arthroplasty of left knee Family History Mother Diabetes Heart disease Father Hypertension Stroke Other No family history of adverse response to anesthesia No pertinent family history Social History Smoking Status: Never smoker Second Hand Exposure: No; Do You Dip or Chew Tobacco: No; Hx Alcohol Use: Yes Alcohol type: wine Hx Substance Use: No Preferred Language: Tamazight Communication Ability: Effective Hearing Ability: Normal Rehabilitation Therapist Required: No Beliefs That Will Affect Care: None marital status: / Current Living Situation: Rehab Current Living Situation Comment: [place]. 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 How many Children do You have: 2 Feels Safe at Home: Yes Safety Concerns: Feels Safe At This Time Diet: diabetic during the past year weight has: decreased > 10 lbs Assistive Devices: CPAP, Lift Chair and Walker Review of Systems CONSTITUTIONAL: Denies weight loss, fever and chills. HEENT: Denies changes in vision and hearing. RESPIRATORY: Denies SOB and cough. CV: Denies palpitations and CP. GI: Denies abdominal pain, nausea, vomiting and diarrhea. : Denies dysuria and urinary frequency. MSK: Denies myalgia. SKIN: Denies rash and pruritus. NEUROLOGICAL: Denies headache and syncope PSYCHIATRIC: Denies recent changes in mood. Denies anxiety and depression. Results & Data Vital Signs (Past 12 Hours) Vital Signs Temp Pulse Pulse Resp BP Pulse Ox O2 Del Method 09/13/23 15:23 36.6 C 78 20 113/72 92 Room Air 09/13/23 11:32 36.5 C 73 20 135/67 92 Room Air 09/13/23 07:38 36.5 C 68 18 126/68 95 Nasal Cannula 09/13/23 07:00 68 O2 Flow Rate 09/13/23 15:23 09/13/23 11:32 09/13/23 07:38 1 09/13/23 07:00 Laboratory Results 09/12/23 12:23 Aerobic Blood Culture - Preliminary Blood No growth in Aerobic bottle after 24 hours. Anaerobic Blood Culture - Preliminary No growth in Anaerobic bottle after 24 hours. 09/12/23 12:18 Aerobic Blood Culture - Preliminary Blood No growth in Aerobic bottle after 24 hours. Anaerobic Blood Culture - Preliminary No growth in Anaerobic bottle after 24 hours. 09/11/23 20:37 Urine Culture - Final Urine,Straight Cath Escherichia coli Lactobacillus species 09/11/23 19:40 Aerobic Blood Culture - Preliminary Blood No growth in Aerobic bottle after 24 hours. Anaerobic Blood Culture - Preliminary Gram negative bacilli 09/11/23 19:42 Aerobic Blood Culture - Preliminary Blood No growth in Aerobic bottle after 24 hours. Anaerobic Blood Culture - Final 09/13/23 09/13/23 09/12/23 11:16 06:07 22:52 WBC 8.55 RBC 2.74 L Hgb 7.4 L Hct 23.3 L MCV 85.0 MCH 27.0 MCHC 31.8 L RDW Std Deviation 51.1 H RDW Coeff of Yvette 16.6 H Plt Count 265 MPV 9.3 L PT 17.3 H INR 1.7 H Sodium 131 L 127 L Potassium 3.9 3.9 Chloride 97 L 94 L Carbon Dioxide 27 26 Anion Gap 7 7 BUN 48 H 56 H Creatinine 1.10 1.21 H Est Cr Clr Drug Dosing 53.6 48.5 Est GFR ( Amer) 57.7 51.4 Est GFR (Non-Af Amer) 49.8 44.4 BUN/Creatinine Ratio 43.6 H 46.3 H Glucose 81 82 POC Glucose 90 Calcium 8.2 L 8.3 L Phosphorus 3.8 Magnesium 2.5 H Troponin I High Sens 09/12/23 09/12/23 09/12/23 20:03 16:50 16:16 WBC RBC Hgb Hct MCV MCH MCHC RDW Std Deviation RDW Coeff of Yvette Plt Count MPV PT INR Sodium 125 L Potassium 4.4 Chloride 92 L Carbon Dioxide 27 Anion Gap 6 BUN 61 H Creatinine 1.29 H Est Cr Clr Drug Dosing 45.5 Est GFR ( Amer) 47.6 Est GFR (Non-Af Amer) 41.0 BUN/Creatinine Ratio 47.3 H Glucose 83 POC Glucose 108 H 106 H Calcium 8.3 L Phosphorus Magnesium Troponin I High Sens 17.7 H
--- NOTE | 2023-09-13 16:03 | Communication Note ---
Date of Service: September 13, 2023 I saw the patient with Dr. Mirza. Urine and blood are growing Ecoli (urine is also growing Lactobacillus). I would give a dose of ceftriaxone 2g today. Then, transition to IV ampicillin tonight. She will likely need to go home on IV ABX to complete 14 days of therapy. I am hesitant to transition to PO prematurely since she was recently admitted with a similar presentation.
[2023-09-14 07:52] LABS: Hematocrit (blood only) 23.8 % (37.0-47.0); Hemoglobin 7.6 g/dl (12.0-16.0); Mean Corpuscular Hemoglobin 27.1 pg (25.0-34.0); Mean Corpuscular Hgb Conc 31.9 g/dL (32.0-36.0); Mean Platelet Volume 8.7 fL (9.4-12.4); Platelet Count 265 K/uL (130-400); RDW Coefficient of Variation 16.5 % (11.5-14.5); RDW Standard Deviation 51.1 fL (36.4-46.3); White Blood Count 8.96 K/ul (4.8-10.8)
[2023-09-14 08:20] LABS: INR 1.7 (0.9-1.1); Prothrombin Time 17.7 Seconds (9.0-12.0)
--- NOTE | 2023-09-14 09:03 | Hospitalist Progress Note ---
Date of Service September 14, 2023 Assessment & Plan (1) AMS (altered mental status): Plan: 73 yo F with type 2 diabetes, gout, hyperlipidemia, hypothyroidism, obstructive sleep apnea on CPAP, paroxysmal atrial fibrillation, chronic diastolic CHF, CKD stage III, pulmonary hypertension, obesity, GERD, chronic bilateral low back pain, history of CVA, history of gastric ulcer comes from [facility] because of patient being sleeping more and less interactive. Patient was admitted on July 30, 2023 with UTI and sepsis and right ureteral calculus had adenovirus infection and SAJAN with creatinine of 4.2 and then patient was in septic shock requiring pressors cultures growing VRE, E. coli and Proteus mirabilis in the urine and blood cultures growing E. coli and antibiotics were tapered to IV ampicillin per ID to complete 14-day course and she is s/p right ureteral stent placement. kidney function improved and she was discharged to [facility] on August 10, 2023. Patient currently somewhat drowsy. But alert and oriented x 3. States is not ambulated since last 3 weeks. States feeling depressed. Denies any headache. No blurred vision. No earache or runny nose or sore throat. No cough. States appetite is down but swallowing okay. Denies chest pain or shortness of breath. No nausea or vomiting. No abdominal pain. Normal bowel and bladder movements. Initially when she came in her blood pressure was soft systolic blood pressure 90s but improved with the fluids. Altered mental status - mental status now improved Mostly from UTI, bacteremia Hyponatremia Recently had urine cultures growing Enterococcus faecalis resistant to vancomycin but was sensitive to ampicillin and daptomycin. Urine cultures were also positive for E. coli and Proteus and blood cultures were positive for pansensitive E. coli.Completed 14days of iv ampicillin. Received Zosyn in the ER. Will continue Zosyn and IV Dapto until further cultures are available. Blood cultx - posit. for E.coli Ucultx - E.coli, Lactobacillus Initially was borderline hypotensive improved with the fluids gentle fluids Last admission right nephroureteral stent was placed which is intact on the current CAT scan Urology consulted and discussed with - Pt was scheduled for outpatient procedure for stone treatment and stent exchange on 09/16/23. - Given her positive blood and urine cultures, she will need to be on IV antibiotic for several days prior to intervention. - Ideally if she remains inpatient and is improving on IV antibiotics, we will plan to proceed 09/16/[address] Edwards. ID consulted and discussed with - will obtain boles MRI of spine w/ contrast - nephrology also aware Close monitoring on telemetry. Acute on chronic hyponatremia Presented with sodium of 118 Her sodium was 128s to 130s last admission Recently on September 01 and September 05 sodium was 124 and 123 Got fluids for low blood pressure Will check urine osmolality, urine sodium, serum osmolality Close monitor of labs Slow correction of sodium Current Na 133 Nephrology consulted to help with slow correction Hyperkalemia Potassium 5.5 repeat labs K was 6.4. received iv insulin 10units, amp of d50 and iv calcium gluconate and placed on Lokelma. Nephrology consulted, K now wnl Elevated troponin Troponin 16 mostly demand ischemia Will follow serial exams Obstructive sleep apnea CPAP nightly refused cpap says she was on cpap for last 5-6yrs but not using for last 6 weeks as mask was not fitting. She got new mask but not started using it yet as she had cold symptoms. CKD stage III Presented with creatinine 1.4 seems around baseline Will follow the labs Diabetes Will hold home p.o. medications Sliding scale and lantus 5units daily for now Will monitor History of paroxysmal atrial fibrillation On amiodarone and metoprolol and Coumadin INR 1.5 Needs adjustment of Coumadin dose Follow PT/INR Looks like she was on 3mg Coumadin daily and her inr was running high and Coum svitlana dose was reduced. Because of anasarca and hypoalbuminemia liver [facility] but was negative for cirrhosis per notes from [facility]. Can consider novel agents Close monitor Chronic diastolic CHF Was on spironolactone and Bumex last admission but seems stopped [facility] for hyp[facility]at[facility] and ? worsening kidney function Seems currently not on diuretics Will monitor for volume overload Nephrology following Gout On allopurinol Depression recently started on Lexapro Hypothyroidism On Synthyroid Hyperlipidemia On statin GERD On omeprazole Hypertension Lisinopril and amlodipine were held at time of discharge last admission on metoprolol Will monitor DVT prophylaxis On Coumadin but INR subtherapeutic at 1.5 Prophylactic Lovenox until INR therapeutic Disposition - Telemetry Full code per admitting provider's discussion with the patient Admission and Anticipated Discharge Date Admission Date: September 11, 2023 Subjective Pt seen in follow up of UTI , bacteremia, hx of renal stone, s/p ureteral stent placement and followed by severe sepsis Now also presents with hyperkalemia, hyponatremia - Nephrology and urology consulted Pt presented w/ AMS, currently feels better and able to answer simple questions appropriately, more awake today. Daughters present at the bedside yesterday and updated. Currently no fever, chills, chest pain or shortness of breath. Reports back pain. Urology and nephrology following. Seen by ID yesterday - will obtain boles MRI of spine Review of Systems Review of Systems: All systems reviewed & are unremarkable except as noted in Subjective Physical Exam Physical Exam: General- obese elderly F , chronically ill appearing in NAD Head- NC/AT Eyes- PERRL. Neck- supple, no JVD. Lungs- clear to auscultation no wheezing or crackles. Heart- regular rhythm; no murmur, no gallop. Abdomen- normal bowel sounds, soft, nontender, no distension, + obese abdomen Extremities- no pretibial edema, no erythema seen, moves extremities Neuro- alert, oriented x 3; PERRL, ; no facial palsy; no dysarthria; obeys simple commands, moves extremities. Results & Data Results & Data Vital Signs (Past 12 Hours) Vital Signs Temp Pulse Pulse Resp BP BP Pulse Ox 09/14/23 08:00 36.5 C 75 18 106/62 95 09/14/23 03:18 36.5 C 75 20 119/74 95 09/14/23 00:09 72 09/13/23 23:02 36.6 C 75 22 121/61 95 O2 Del Method 09/14/23 08:00 Room Air 09/14/23 03:18 Room Air 09/14/23 00:09 09/13/23 23:02 Room Air Laboratory Results 09/14/23 09/14/23 09/13/23 Range/Units 07:27 07:26 20:13 WBC 8.96 (4.8-10.8) K/ul RBC 2.80 L (4.20-5.40) M/uL Hgb 7.6 L (12.0-16.0) g/dl Hct 23.8 L (37.0-47.0) % MCV 85.0 (80.0-100.0) fL MCH 27.1 (25.0-34.0) pg MCHC 31.9 L (32.0-36.0) g/dL RDW Std Deviation 51.1 H (36.4-46.3) fL RDW Coeff of Yvette 16.5 H (11.5-14.5) % Plt Count 265 (130-400) K/uL MPV 8.7 L (9.4-12.4) fL PT 17.7 H (9.0-12.0) Seconds INR 1.7 H (0.9-1.1) Sodium Pending Potassium Pending Chloride Pending Carbon Dioxide Pending Anion Gap Pending BUN Pending Creatinine Pending Est Cr Clr Drug Dosing Pending Est GFR ( Amer) Pending Est GFR (Non-Af Amer) Pending BUN/Creatinine Ratio Pending Glucose Pending POC Glucose 146 H 229 H (70-99) mg/dl Calcium Pending Phosphorus Pending Magnesium Pending 09/13/23 09/13/23 Range/Units 16:20 11:16 WBC (4.8-10.8) K/ul RBC (4.20-5.40) M/uL Hgb (12.0-16.0) g/dl Hct (37.0-47.0) % MCV (80.0-100.0) fL MCH (25.0-34.0) pg MCHC (32.0-36.0) g/dL RDW Std Deviation (36.4-46.3) fL RDW Coeff of Yvette (11.5-14.5) % Plt Count (130-400) K/uL MPV (9.4-12.4) fL PT (9.0-12.0) Seconds INR (0.9-1.1) Sodium Potassium Chloride Carbon Dioxide Anion Gap BUN Creatinine Est Cr Clr Drug Dosing Est GFR ( Amer) Est GFR (Non-Af Amer) BUN/Creatinine Ratio Glucose POC Glucose 150 H 90 (70-99) mg/dl Calcium Phosphorus Magnesium Medications Administered Current Inpatient Medications Acetaminophen (Acetaminophen 325 Mg Tab) 650 mg PO Q4H PRN PRN Reason: Pain or Fever Stop: 10/11/23 23:50 Last Admin: 09/14/23 06:42 Dose: 650 mg Allopurinol (Allopurinol 100 Mg Tab) 200 mg PO HS MONIKA Stop: 10/12/23 20:59 Last Admin: 09/13/23 19:28 Dose: 200 mg Amiodarone HCl (Amiodarone 200 Mg Tab) 200 mg PO QAM [facility] Stop: 10/12/23 08:59 Last Admin: 09/14/23 08:27 Dose: 200 mg Ascorbic Acid (Ascorbic Acid 500 Mg Tab) 250 mg PO MoWeFr@0900 [facility] Stop: 10/13/23 08:59 Last Admin: 09/13/23 08:45 Dose: 250 mg Dextrose (Dextrose 50% 50 Ml Syringe) 25 - 50 ml IV UD PRN; Protocol PRN Reason: Hypoglycemia Protocol Stop: 10/12/23 01:58 Diclofenac Sodium (Diclofenac Sod 1% Gel 100 Gm Tube) 4 gm EXT QID [facility]; Protocol Stop: 10/12/23 08:59 Last Admin: 09/14/23 08:28 Dose: 4 gm Docusate Sodium (Docusate Sodium 100 Mg Cap) 100 mg PO BID [facility] Stop: 10/12/23 08:59 Last Admin: 09/14/23 08:28 Dose: Not Given Enoxaparin Sodium (Enoxaparin Inj 40 Mg/0.4 Ml Syr) 40 mg SQ Q12H [facility] Stop: 10/12/23 07:59 Last Admin: 09/14/23 08:27 Dose: 40 mg Escitalopram Oxalate (Escitalopram Oxalate 10 Mg Tab) [facility] [place]: 10/12/23 08:59 Last Admin: 09/14/23 08:27 Dose: 5 mg Ferrous Sulfate (Ferrous Sulfate 325 Mg Tab) 325 mg PO MoWeFr@0900 [facility] Stop: 10/13/23 08:59 Last Admin: 09/13/23 08:46 Dose: 325 mg Glucagon (Glucagon For Inj 1 Mg Vial) 1 mg SQ UD PRN; Protocol PRN Reason: Hypoglycemia Protocol Stop: 10/12/23 01:58 Glucose (Glucose 40% Gel 15 Gm Tube) 15 - 30 gm PO UD PRN; Protocol PRN Reason: Hypoglycemia Protocol Stop: 10/12/23 01:58 Glucose (Glucose 10 Tab/Tube) 4 - 8 tab PO UD PRN; Protocol PRN Reason: Hypoglycemia Treatment Stop: 10/12/23 01:58 Sodium Chloride (Nss) 1,000 mls @ 75 mls/hr IV .[id number] [facility] Stop: 10/11/23 23:50 Last Admin: 09/14/23 07:13 Dose: 75 mls/hr Piperacillin Sod/Tazobactam (Sod 4.5 gm/ Dextrose) 100 mls @ 25 mls/hr IV Q8H [facility]; Protocol Stop: 09/22/23 02:59 Last Infusion: 09/14/23 06:01 Dose: Infused Daptomycin 700 mg/ Syringe 14 mls @ 7 mls/min IV Q24H [facility]; Protocol Stop: 09/22/23 01:59 Last Admin: 09/14/23 01:41 Dose: 7 mls/min Insulin Aspart (Insulin Aspart Per Unit Charge) 0 units SC ACHS [facility] Stop: 10/12/23 07:29 Last Admin: 09/14/23 08:27 Dose: 2 units Insulin Glargine (Lantus Per Unit Charge) 5 units SQ DAILY [facility] Stop: 10/12/23 08:59 Last Admin: 09/14/23 08:28 Dose: 5 units Levothyroxine Sodium (Levothyroxine Sodium 112 Mcg Tablet) 112 mcg PO DAILYBB [facility] Stop: 10/12/23 06:29 Last Admin: 09/14/23 06:26 Dose: 112 mcg Magnesium Oxide (Magnesium Oxide 400 Mg Tab) 400 mg PO QPM [facility] Stop: 10/12/23 20:59 Last Admin: 09/13/23 19:26 Dose: 400 mg Metoprolol Tartrate (Metoprolol Tartrate 50 Mg Tab) 50 mg PO BID [facility] Stop: 10/12/23 08:59 Last Admin: 09/14/23 08:28 Dose: 50 mg Miscellaneous (Carbohydrates For Hypoglycemia ) 15 - 30 gm PO UD PRN PRN Reason: Hypoglycemia Protocol Stop: 10/12/23 01:58 Multivitamins (Multivitamin Tab) 1 tab PO QPM [facility] Stop: 10/12/23 20:59 Last Admin: 09/13/23 19:26 Dose: 1 tab Nitroglycerin (Nitroglycerin Sl 0.4 Mg/Tab Tab) 0.4 mg SL Q5M PRN PRN Reason: Chest Pain Stop: 10/11/23 23:50 Oxycodone HCl (Oxycodone Hcl Ir 5 Mg Tab (Immediate Release)) 5 mg PO Q4H PRN PRN Reason: Pain Stop: 09/26/23 00:00 Pantoprazole Sodium (Pantoprazole 40 Mg Tab) 40 mg PO QAM [facility] Stop: 10/12/23 08:59 Last Admin: 09/14/23 08:28 Dose: 40 mg Polyethylene Glycol (Polyethylene (Miralax) 17 Gm Pack) 17 gm PO DAILY PRN PRN Reason: Constipation Stop: 10/11/23 23:50 Polyethylene Glycol (Polyethylene (Miralax) 17 Gm Pack) 17 gm PO QAM [facility] Stop: 10/12/23 08:59 Last Admin: 09/14/23 08:28 Dose: Not Given Rosuvastatin Calcium (Rosuvastatin Calcium 10 Mg Tab) 10 mg PO [facility]IKA Stop: 10/12/23 20:59 Last Admin: 09/13/23 19:26 Dose: 10 mg Sodium Chloride (Sodium Chloride 0.65% Na Soln 45 Ml ([place])) 2 sprays NA Q8 PRN PRN Reason: DRYNESS Stop: 10/12/23 00:00 Tamsulosin HCl (Tamsulosin Hcl 0.4 Mg Cap) 0.4 mg PO DAILY [facility] Stop: 10/12/23 08:59 Last Admin: 09/14/23 08:28 Dose: 0.4 mg Vitamin D (Cholecalciferol 25 Mcg (1000 Units) Tab) 25 mcg PO QAM [facility] Stop: 10/12/23 08:59 Last Admin: 09/14/23 08:27 Dose: 25 mcg Warfarin Sodium (Warfarin Sod 1 Mg Tab) 1 mg PO HS [facility] Stop: 10/12/23 20:59 Last Admin: 09/13/23 19:27 Dose: 1 mg
[2023-09-14 09:33] LABS: Calcium 8.2 mg/dl (8.6-10.3); Potassium 3.7 mmol/L (3.5-5.1)
[2023-09-14 09:40] LABS: BUN Creatinine Ratio 36.9 (10-20); Creatinine Clr Calc Pharmacy 70.2 ml/min; Est GFR (African American) 79.9 ml/min; Phosphorus 2.3 mg/dl (2.5-4.9)
--- NOTE | 2023-09-14 10:27 | Nephrology Progress Note ---
Date of Service September 14, 2023 Assessment & Plan Admission and Anticipated Discharge Date Admission Date: September 11, 2023 Subjective Assessment & Plan (1) Chronic hyponatremia: chronic -- hyponatremia improving from 118 at 09/10 presentation to 133 now with Just NS---behaving as prerenal/hypovolemic. no prior hx of this issue. Presented w/ critical hyponatremia but improved appropriately w/ NS. cont NS current rate till AM to see how high can we get the na+. even now PO intake is borderline. monitor BMP now daily in AM. Also renal function normal now (2) E coli bacteremia: w/ E coli and Enterobacter on admission cultures continue zosyn/daptomycin stent exchange--getting done . reviewed Urology note ID consult note reviewed S---feels thirsty. Not hungry. Po intake is borederline. making lot of urine--pure wick. Physical Exam Physical Exam: General- weak. Head- atraumatic Neck- supple, no JVD. Lungs- clear to auscultation no wheezing or crackles. Heart- regular rhythm; no murmur, no gallop. Abdomen- normal bowel sounds, soft, nontender, no distension Extremities- no pretibial edema, no erythema seen Neuro- alert, oriented x 3 but drowsy; PERRL, ; no facial palsy; no dysarthria; obeys simple commands, moves extremities. Results & Data Vital Signs (Past 12 Hours) Vital Signs Temp Pulse Pulse Resp BP BP Pulse Ox 09/14/23 08:00 36.5 C 75 18 106/62 95 09/14/23 03:18 36.5 C 75 20 119/74 95 09/14/23 00:09 72 09/13/23 23:02 36.6 C 75 22 121/61 95 O2 Del Method 09/14/23 08:00 Room Air 09/14/23 03:18 Room Air 09/14/23 00:09 09/13/23 23:02 Room Air
[2023-09-14] MEDS: oxyCODONE HCL IR 5 MG TAB (IMMEDIATE RELEASE) PO PRN (10:41)
[2023-09-14] MEDS: ADVANCED PROBIOTIC 625 MG CAPSULE PO SCH (11:15)
--- NOTE | 2023-09-14 14:21 | Urology Progress Note ---
Date of Service September 14, 2023 Assessment & Plan (1) Complicated UTI (urinary tract infection): (2) S/P ureteral stent placement: (3) Kidney stones: Plan - Afebrile, hemodynamically stable at present. - Labs today- WBC 8.96, Creatinine 0.84. - Urine culture 09/10 grew E.coli. - Blood cultures 09/10 with 1/4 gram negative bacilli; Repeat blood cultures pending. - On Zosyn/Daptomycin. ID consulted. - External cath in place, urine is clear yellow. Continue to monitor. Bladder scan PRN. - No plan for intervention today. - The right ureteral stent appears to be in good position on CT imaging. - She was scheduled for outpatient procedure for stone treatment and stent e xchange on 09/16/23. - Given her positive blood and urine cultures, she will need to be on IV antibiotics for several days prior to intervention. - Ideally if she remains inpatient and is improving on IV antibiotics, we will tentatively plan to proceed 09/16/[address] Edwards. - Continue antibiotics and tailor as culture data becomes available. - Continue supportive care and management per primary team - Urology will follow along. Admission and Anticipated Discharge Date Admission Date: September 11, 2023 Subjective Pt seen at bedside Awake, resting in bed on arrival No acute distress Daughter at bedside Reports R flank/back pain Pt to have MRI of spine today No fever External cath in place, urine is clear yellow Review of Systems Constitutional: as per Subjective / HPI Genitourinary: as per Subjective / HPI Physical Exam Constitutional: no acute distress Respiratory: no respiratory distress and no labored breathing Neurologic: awake Psychiatric: Orientation: alert, oriented x 3 and cooperative Genitourinary: Urine is clear yellow Results & Data Vital Signs (Past 12 Hours) Vital Signs Temp Pulse Resp BP Pulse Ox O2 Del Method 09/14/23 13:18 Room Air 09/14/23 11:37 36.5 C 69 20 141/74 H 96 Room Air 09/14/23 08:00 36.5 C 75 18 106/62 95 Room Air 09/14/23 03:18 36.5 C 75 20 119/74 95 Room Air PG Care Time/CCT Total # of Minutes Spent Total Time Spent with Patient: Total time spent is greater than 50% in coordination of care (as documented) at patient's floor/unit and/or counseling patient: Coding Level of Care Code 87842 SUB INP/OBS CARE 235MIN Diagnoses Complicated UTI (urinary tract infection) N39.0 S/P ureteral stent placement Z96.0 Kidney stones N20.0
--- NOTE | 2023-09-14 18:05 | Magnetic Resonance Report ---
MRI OF THE LUMBAR SPINE WITHOUT CONTRAST CLINICAL HISTORY: r/o infection COMPARISON STUDY: Lumbar spine MRI February 05, 2020. CT of the abdomen and pelvis September 11, 2023. TECHNIQUE: Utilizing a 1.5 Jessika magnet and dedicated coil, multiplanar, multiecho imaging of the [facility] spine was performed without IV contrast. FINDINGS: For purposes of numbering on this exam, the L5-S1 disc space is assigned to axial image 33 of 40. The re is moderate lumbar spine levoscoliosis. Axial T1 sequence and postcontrast imaging of the lumbar s pine could not be obtained. Patient was unable to tolerate further imaging. Significant fluid within the L5-S1 disc space is noted with widening of the disc space. This is new since MRI of February 04. There is associated erosion of the inferior endplate of L5 and superior endplate of S1. Although suboptimally assessed given lack of postcontrast imaging, no epidural fluid collection is identified. Edema within the posterior elements at this level is noted. Of note, two fluid and gas containing ri ght iliopsoas/iliacus fluid collections are present, on axial sequence image 40 of 40. These are part ially imaged. The larger collection measures at least 2 x 2 cm. The smaller collection measures at le ast 1.8 x 1.3 cm. There is a small 1 cm left paravertebral fluid collection on image 30. Fat necrosis within the subcutaneous tissues of the lower back is present. L1-2: There is severe disc space narrowing with facet arthrosis. Central canal is patent. There is mo derate bilateral neural foraminal stenosis. L2-3: Severe disc space narrowing is noted with facet arthrosis and ligamentous hypertrophy. There is moderate narrowing of the central canal and left neural foramen. There is severe right neural forami nal stenosis. L3-4: Severe disc space narrowing is noted with facet arthrosis and ligamentous hypertrophy. There is moderate to severe central canal stenosis. Severe right and moderate left neural foraminal stenosis. L4-5: Grade I anterolisthesis is due to severe facet arthrosis with ligamentous hypertrophy. There is moderate to severe central canal stenosis. There is moderate to severe bilateral neural foraminal st enosis. L5-S1: Increased fluid within the disc space is noted with disc space widening. There is erosion of t he adjacent endplates. Severe facet arthrosis is noted. There is mild central canal stenosis. Moderat e to severe bilateral neural foraminal stenosis is present. IMPRESSION: 1. Findings consistent with L5-S1 discitis and osteomyelitis. Two associated right iliacus/iliopsoas fluid collections consistent with abscesses, partially imaged on this exam. The larger abscess measur es at least 2 x 2 cm. Edema extends into the bilateral facet joints. This may represent extension of the infectious process or facet arthrosis. No well-defined epidural fluid collection to suggest epidu ral abscess although evaluation compromised given lack of postcontrast imaging. Small 1 cm left parav ertebral abscess. This finding will be called/faxed to ordering provider at time of dictation. 2. Severe multilevel degenerative disc disease and facet arthrosis within the lumbar spine, as descri bed above. Multilevel central canal and neural foraminal stenosis. 3. Moderate lumbar spine levoscoliosis. 4. Incomplete lumbar spine MRI, as detailed above. Short-term follow-up MRI with and without contrast could be obtained to exclude interval development of an epidural abscess. No definite epidural absce ss on this exam. ACT 112: Negative or not required by law. Electronically signed by: Giu Berumen M.D. 09/14/2023 6:03 PM
[2023-09-15 06:33] LABS: Hematocrit (blood only) 24.8 % (37.0-47.0); Mean Corpuscular Hemoglobin 27.4 pg (25.0-34.0); Mean Corpuscular Hgb Conc 32.3 g/dL (32.0-36.0); Mean Corpuscular Volume 84.9 fL (80.0-100.0); Mean Platelet Volume 9.2 fL (9.4-12.4); Platelet Count 265 K/uL (130-400); RDW Coefficient of Variation 16.8 % (11.5-14.5); RDW Standard Deviation 52.2 fL (36.4-46.3); Red Blood Count 2.92 M/uL (4.20-5.40)
[2023-09-15 06:49] LABS: BUN Creatinine Ratio 28.9 (10-20); Creatinine Clr Calc Pharmacy 71.3 ml/min; Est GFR (African American) 81.1 ml/min; Magnesium 1.8 mg/dl (1.7-2.4); Phosphorus 2.3 mg/dl (2.5-4.9); Potassium 3.6 mmol/L (3.5-5.1)
[2023-09-15 06:51] LABS: INR 1.6 (0.9-1.1); Prothrombin Time 16.6 Seconds (9.0-12.0)
--- NOTE | 2023-09-15 10:23 | Nephrology Progress Note ---
Date of Service September 15, 2023 Assessment & Plan Admission and Anticipated Discharge Date Admission Date: September 11, 2023 Subjective Assessment & Plan (1) Chronic hyponatremia: chronic -- hyponatremia improving from 118 at 09/10 presentation to 133 now with Just NS---behaving as prerenal/hypovolemic. no prior hx of this issue. Presented w/ critical hyponatremia but improved appropriately w/ NS. However na now dropped from 133 to 129 now. even now PO intake is borderline. so continue NS at 75/hr. But today will add lasix 20 iv bid and kcl 20 po bid. Add FFR 1500 ml/day monitor BMP now daily in AM. Also renal function normal now so SAJAN has resolved. (2) E coli bacteremia: w/ E coli and Enterobacter on admission cultures continue zosyn/daptomycin stent exchange--getting done ? . reviewed Urology note ID consult note reviewed S---feels thirsty. Not hungry. Po intake is borderline low. making urine but amount seems to be dropping Physical Exam Physical Exam: General- weak. Head- atraumatic Neck- supple, no JVD. Lungs- clear to auscultation no wheezing or crackles. Heart- regular rhythm; no murmur, no gallop. Abdomen- normal bowel sounds, soft, nontender, no distension Extremities- no pretibial edema, no erythema seen Neuro- alert, oriented x 3 but drowsy; PERRL, ; no facial palsy; no dysarthria; obeys simple commands, moves extremities. Results & Data Vital Signs (Past 12 Hours) Vital Signs Temp Pulse Pulse Resp BP BP Pulse Ox 09/15/23 07:23 36.5 C 105 H 16 125/76 94 09/15/23 02:48 36.6 C 100 H 18 128/85 93 09/14/23 22:49 99 H 09/14/23 22:28 36.7 C 89 22 96/67 L 93 O2 Del Method 09/15/23 07:23 Room Air 09/15/23 02:48 Room Air 09/14/23 22:49 09/14/23 22:28 Room Air
[2023-09-15] MEDS: POTASSIUM CHLORIDE 20 MEQ/15 ML UDC PO SCH (10:45)
[2023-09-15 13:51] LABS: Codeine Urine NEGATIVE ng/mL (<50); Hydrocodone Urine NEGATIVE ng/mL (<50); Hydromor Urine NEGATIVE ng/mL (<50); Morphine Urine NEGATIVE ng/mL (<50); Norhydrocodone Conf Ur NEGATIVE ng/mL (<50); Noroxycodone Urine 82 ng/mL (<50); Oxycodone Urine 1380 ng/mL (<50); Oxymorph Urine 1530 ng/mL (<50)
--- NOTE | 2023-09-15 16:31 | Urology Progress Note ---
Date of Service September 15, 2023 Assessment & Plan (1) Complicated UTI (urinary tract infection): (2) S/P ureteral stent placement: (3) Kidney stones: Plan - Afebrile, hemodynamically stable at present. - Labs today- WBC 10.10, Creatinine 0.83. - Urine culture 09/10 grew E.coli. - Blood cultures 09/10 prelim E.coli; Repeat blood cultures prelim no growth x 48 hours - On Zosyn/Daptomycin. ID consulted. - External cath in place, urine is clear yellow. Continue to monitor. Bladder scan PRN. - The right ureteral stent appears to be in good position on CT imaging. - She was scheduled for outpatient procedure for stone treatment and stent exchange on 09/16/23. - Given her positive blood and urine cultures, she will need to be on IV antibiotics for several days prior to intervention. - Ideally if she remains inpatient and is improving on IV antibiotics, we will tentatively plan to proceed 09/16/[address] Edwards. - Continue antibiotics and tailor as culture data becomes available. - Continue supportive care and management per primary team - Will make NPO at midnight in anticipation of procedure tomorrow given there are no acute changes. - Urology will follow. Admission and Anticipated Discharge Date Admission Date: September 11, 2023 Subjective Pt seen at bedside Awake, resting in bed on arrival No acute distress External cath in place, urine is clear yellow Denies f/c/n/v Lumbar spine MRI yesterday notable for L5-S1 discitis and osteomyelitis and two associated right iliacus/iliopsoas fluid collections consistent with abscesses Review of Systems Constitutional: as per Subjective / HPI Genitourinary: as per Subjective / HPI Physical Exam Constitutional: no acute distress Respiratory: no respiratory distress and no labored breathing Neurologic: awake Psychiatric: Orientation: alert, oriented x 3 and cooperative Genitourinary: Purewick in place Results & Data Vital Signs (Past 12 Hours) Vital Signs Temp Pulse Resp BP Pulse Ox O2 Del Method 09/15/23 15:54 Room Air 09/15/23 15:30 36.3 C L 98 H 16 115/82 95 Room Air 09/15/23 11:30 36.2 C L 91 H 16 106/68 96 Room Air 09/15/23 07:23 36.5 C 105 H 16 125/76 94 Room Air PG Care Time/CCT Total # of Minutes Spent Total Time Spent with Patient: Total time spent is greater than 50% in coordination of care (as documented) at patient's floor/unit and/or counseling patient: Coding Level of Care Code 18652 SUB INP/OBS CARE 1/25MIN Diagnoses Complicated UTI (urinary tract infection) N39.0 S/P ureteral stent placement Z96.0 Kidney stones N20.0
--- NOTE | 2023-09-15 17:10 | Hospitalist Progress Note ---
Date of Service September 15, 2023 Assessment & Plan (1) AMS (altered mental status): Plan: 73 yo F with type 2 diabetes, gout, hyperlipidemia, hypothyroidism, obstructive sleep apnea on CPAP, paroxysmal atrial fibrillation, chronic diastolic CHF, CKD stage III, pulmonary hypertension, obesity, GERD, chronic bilateral low back pain, history of CVA, history of gastric ulcer comes from [facility] because of patient being sleeping more and less interactive. Patient was admitted on July 30, 2023 with UTI and sepsis and right ureteral calculus had adenovirus infection and SAJAN with creatinine of 4.2 and then patient was in sep tic shock requiring pressors cultures growing VRE, E. coli and Proteus mirabilis in the urine and blood cultures growing E. coli and antibiotics were tapered to IV ampicillin per ID to complete 14-day course and she is s/p right ureteral stent placement. kidney function improved and she was discharged to longterm on August 10, 2023. Patient currently somewhat drowsy. But alert and oriented x 3. States is not ambulated since last 3 weeks. States feeling depressed. Denies any headache. No blurred vision. No earache or runny nose or sore throat. No cough. States appetite is down but swallowing okay. Denies chest pain or shortness of breath. No nausea or vomiting. No abdominal pain. Normal bowel and bladder movements. Initially when she came in her blood pressure was soft systolic blood pressure 90s but improved with the fluids. Altered mental status - mental status now improved Mostly from UTI, bacteremia UTI in the setting of indwelling ureteral stent Hyponatremia Sepsis, POA Metabolic encephalopathy Recently had urine cultures growing Enterococcus faecalis resistant to vancomycin but was sensitive to ampicillin and daptomycin. Urine cultures were also positive for E. coli and Proteus and blood cultures were positive for pansensitive E. coli.Completed 14days of iv ampicillin. Received Zosyn in the ER. Will continue Zosyn and IV Dapto until further cultures are available. Blood cultx - posit. for E.coli Ucultx - E.coli, Lactobacillus Initially was borderline hypotensive improved with the fluids gentle fluids Last admission right nephroureteral stent was placed which is intact on the current CAT scan Urology consulted and discussed with - Pt was scheduled for outpatient procedure for stone treatment and stent exchange on 09/16/23. - Given her positive blood and urine cultures, she will need to be on IV antibiotic for several days prior to intervention. - Ideally if she remains inpatient and is improving on IV antibiotics, we will plan to proceed 09/16/[address] Edwards. ID consulted and discussed with - will obtain boles MRI of spine w/ contrast - nephrology also aware 09/14 currently on Daptomycin + Zosyn IV Urology planning for stone treatment and ureteral stent exchange tomorrow R iliacus/iliopsoas abscesses L5-S1 discitis and osteomyelitis shown on MRI of lumbar spine discussed with ID, recommend Ortho Spine and IR consult Acute on chronic hyponatremia Presented with sodium of 118 Her sodium was 128s to 130s last admission Recently on September 01 and September 05 sodium was 124 and 123 Got fluids for low blood pressure Will check urine osmolality, urine sodium, serum osmolality Close monitor of labs Slow correction of sodium Current Na 133 Nephrology consulted to help with slow correction Hyperkalemia Potassium 5.5 repeat labs K was 6.4. received iv insulin 10units, amp of d50 and iv calcium gluconate and placed on Lokelma. Nephrology consulted, K now wnl Elevated troponin Troponin 16 mostly demand ischemia Will follow serial exams Obstructive sleep apnea CPAP nightly refused cpap says she was on cpap for last 5-6yrs but not using for last 6 weeks as mask was not fitting. She got new mask but not started using it yet as she had cold symptoms. CKD stage III Presented with creatinine 1.4 seems around baseline Will follow the labs Diabetes Will hold home p.o. medications Sliding scale and lantus 5units daily for now Will monitor History of paroxysmal atrial fibrillation On amiodarone and metoprolol and Coumadin INR 1.5 Needs adjustment of Coumadin dose Follow PT/INR Looks like she was on 3mg Coumadin daily and her inr was running high and Couma din dose was reduced. Because of anasarca and hypoalbuminemia liver ultrasound was done at detention but was negative for cirrhosis per notes from longterm. Can consider novel agents Close monitor -- hold coumadin for possible procedure tomorrow Chronic diastolic CHF Was on spironolactone and Bumex last admission but seems stopped at [place] for hyponatremia and ? worsening kidney function Seems currently not on diuretics Will monitor for volume overload Nephrology following Gout On allopurinol Depression recently started on Lexapro Hypothyroidism On Synthyroid Hyperlipidemia On statin GERD On omeprazole Hypertension Lisinopril and amlodipine were held at time of discharge last admission on metoprolol Will monitor DVT prophylaxis On Coumadin but INR subtherapeutic at 1.5 Prophylactic Lovenox until INR therapeutic Disposition - pending Admission and Anticipated Discharge Date Admission Date: September 11, 2023 Subjective ff up for UTI, bacteremia, etc seen resting in bed, comfortable states she feels fine overall has some R lower back pain no abdominal pain, nausea, fever/chills no other symptoms Review of Systems Review of Systems: all noted and negative except for above Physical Exam Physical Exam: General- oriented x 3, not in distress, speaks in sentences with no effort or accessory muscle use Eyes- anicteric Neck- no JVD Lungs- clear breath sounds bilaterally, no rales/wheezes Heart- normal rate, regular rhythm; no murmurs Abdomen- normal bowel sounds, nondistended, soft, nontender Extremities- no pretibial edema, no calf tenderness Neuro- alert, oriented x 3; no gross focal neurologic deficits Skin- warm & dry Results & Data Results & Data Vital Signs (Past 12 Hours) Vital Signs Temp Pulse Resp BP Pulse Ox O2 Del Method 09/15/23 15:54 Room Air 09/15/23 15:30 36.3 C L 98 H 16 115/82 95 Room Air 09/15/23 11:30 36.2 C L 91 H 16 106/68 96 Room Air 09/15/23 07:23 36.5 C 105 H 16 125/76 94 Room Air all noted and reviewed including below
[2023-09-15] MEDS: FUROSEMIDE INJ 20 MG/2 ML VIAL IV SCH (21:27)
[2023-09-16 07:25] LABS: INR 1.4 (0.9-1.1); Prothrombin Time 14.6 Seconds (9.0-12.0)
[2023-09-16 09:21] LABS: BUN Creatinine Ratio 25.6 (10-20); Calcium 7.9 mg/dl (8.6-10.3); Creatinine Clr Calc Pharmacy 75.7 ml/min; Est GFR (African American) 87.4 ml/min; Est GFR (Non-African American) 75.4 ml/min; Potassium 3.8 mmol/L (3.5-5.1)
[2023-09-16 09:42] LABS: Basophils # (auto) 0.05 K/uL (0.00-0.20); Basophils % (auto) 0.6 %; Eosinophils # (auto) 0.16 K/uL (0.00-0.50); Hematocrit (blood only) 25.4 % (37.0-47.0); Immature Granulocytes # (auto) 0.38 K/uL (0.01-0.20); Immature Granulocytes % (auto) 4.8 %; Lymphocytes # (auto) 1.45 K/uL (1.20-3.40); Lymphocytes % (auto) 18.4 %; Mean Corpuscular Hgb Conc 31.5 g/dL (32.0-36.0); Mean Corpuscular Volume 85.8 fL (80.0-100.0); Mean Platelet Volume 9.9 fL (9.4-12.4); Monocytes # (auto) 0.51 K/uL (0.11-0.59); Monocytes % (auto) 6.5 %; Neutrophils # (auto) 5.31 K/uL (1.40-6.50); Neutrophils % (auto) 67.7 %; Platelet Count 308 K/uL (130-400); RDW Standard Deviation 53.1 fL (36.4-46.3); Red Blood Count 2.96 M/uL (4.20-5.40); White Blood Count 7.86 K/ul (4.8-10.8)
--- NOTE | 2023-09-16 10:07 | Urology Progress Note ---
Date of Service September 16, 2023 Assessment & Plan (1) Complicated UTI (urinary tract infection): (2) S/P ureteral stent placement: (3) Kidney stones: Plan - Afebrile, normotensive, tachycardic. - Labs today- WBC 7.86, Creatinine 0.78. - Urine culture 09/10 grew E.coli. - Blood cultures 09/10 prelim E.coli; Repeat blood cultures prelim no growth x 48 hours - On Zosyn/Daptomycin. ID consulted. - External cath in place, urine is clear yellow. Continue to monitor. Bladder scan PRN. - Pt remains stable and improving on IV antibiotic therapy. - Will plan to proceed to OR today for Cystoscopy, Right Ureteronephroscopy, Retrograde Pyelogram, with Possible Ureteral Dilation, Laser Lithotripsy/stone treatment, stent exchangewith Dr. Edwards. - Risks and benefits to be reviewed with patient by Dr. Edwards. - Keep NPO. - Continue antibiotics therapy. - Continue supportive care and management per primary team. - Discussed with hospital team. - Urology will follow. - Plan reviewed with Dr. Edwards, see attending note Attending note: Patient independently assessed, examined, interviewed, and evaluated. Patient is clinically worsening with now development of significant back pain discomfort development of possible retroperitoneal abscess/discitis versus/other infections of the spine/back. Patient has known stone disease. Has multiple comorbidities and significant issues with severe infections. Has previously had significant reactions to anesthesia and sepsis with respiratory failure and major cardiac concerns. Patient is currently undergoing broad-spectrum antibiotic coverage. Has stents in place draining well however has increasing stone burden and concern for ongoing severe infection with recurrent infection around the spine and back. Concerned due to ongoing issues with obstruction secondary to stone disease. Agree with note as above. Patient's vitals and labs were all reviewed. Pertinent values in the HPI and plan section. Imaging was reviewed interpreted by myself. Agree with read. Vitals were reviewed. Discussed findings extensively with patient and family. Reviewed with nurse practitioner as well as consulting physicians/team. Patient's complicated medical and surgical history was reviewed and summarized above. Patient's surgical, medical, social, and family history were all reviewed with pertinent values as above. Discussed patient's current diagnosis as well as concerns and issues. Reviewed different options moving forward. Discussed potential risks and benefits as well as possible options and concerns. Reviewed potential surgical options and interventions. Discussed potential issues and concerns related to intervention. Risk and benefits were discussed extensively with patient and any available family. Discussed potential risks related to anesthesia. Discussed risks of bleeding infection and injury. Plan to move forward with intervention on stone disease. Patient has on excellent antibiotic coverage for known infection issues in the urinary system. Will plan to move forward with treatment on stone. Plan for Right ureteroscopy, laser lithotripsy, stone basket extraction. Stent exchange. Admission and Anticipated Discharge Date Admission Date: September 11, 2023 Subjective Pt seen at bedside Awake, resting in bed on arrival No acute distress Daughters at bedside External cath in place, urine is clear yellow Denies f/c/n/v Has been NPO Lumbar spine MRI yesterday notable for L5-S1 discitis and osteomyelitis and two associated right iliacus/iliopsoas fluid collections consistent with abscesses. Ortho/IR consulted. Review of Systems Constitutional: as per Subjective / HPI Genitourinary: as per Subjective / HPI Physical Exam Constitutional: no acute distress Respiratory: no respiratory distress and no labored breathing Neurologic: awake Psychiatric: Orientation: alert, oriented x 3 and cooperative Results & Data Vital Signs (Past 12 Hours) Vital Signs Temp Pulse Pulse Resp BP BP Pulse Ox 09/16/23 08:19 36.7 C 116 H 18 120/74 96 09/16/23 03:46 36.8 C 104 H 16 123/81 95 09/15/23 23:38 36.5 C 106 H 18 121/84 95 09/15/23 23:17 106 H 09/15/23 22:34 O2 Del Method 09/16/23 08:19 Room Air 09/16/23 03:46 Room Air 09/15/23 23:38 Room Air 09/15/23 23:17 09/15/23 22:34 Room Air PG Care Time/CCT Total # of Minutes Spent Total Time Spent with Patient: Total time spent is greater than 50% in coordination of care (as documented) at patient's floor/unit and/or counseling patient: Coding Level of Care Code 75334 SUB INP/OBS CARE 3/50MIN Diagnoses Complicated UTI (urinary tract infection) N39.0 S/P ureteral stent placement Z96.0 Kidney stones N20.0
--- NOTE | 2023-09-16 10:09 | Nephrology Progress Note ---
Date of Service September 16, 2023 Assessment & Plan Admission and Anticipated Discharge Date Admission Date: September 11, 2023 Subjective Assessment & Plan (1) Chronic hyponatremia: chronic -- hyponatremia improving from 118 at 09/10 presentation to 133 now with Just NS---behaving as prerenal/hypovolemic. no prior hx of this issue. Presented w/ critical hyponatremia but improved appropriately w/ NS. However na now dropped from 133 to 129 yesterday but then now up again to 131 today even now PO intake is borderline. so continue NS at 75/hr. lasix 20 iv bid and kcl 20 po bid. She is starting to have some edema. FFR 1500 ml/day monitor BMP now daily in AM. Also renal function normal now so SAJAN has resolved. (2) E coli bacteremia: w/ E coli and Enterobacter on admission cultures continue zosyn/daptomycin stent exchange--getting done today. reviewed Urology note ID consult note reviewed S---feels thirsty. Not hungry. Po intake is borderline low. for surgery today laser lithotripsy and stent. making urine but amount seems to be dropping Physical Exam Physical Exam: General- weak. Head- atraumatic Neck- supple, no JVD. Lungs- clear to auscultation no wheezing or crackles. Heart- regular rhythm; no murmur, no gallop. Abdomen- normal bowel sounds, soft, nontender, no distension Extremities- 1+ edema, no erythema seen Neuro- alert, oriented x 3 but drowsy; PERRL, ; no facial palsy; no dysarthria; obeys simple commands, moves extremities. Results & Data Vital Signs (Past 12 Hours) Vital Signs Temp Pulse Pulse Resp BP BP Pulse Ox 09/16/23 08:19 36.7 C 116 H 18 120/74 96 09/16/23 03:46 36.8 C 104 H 16 123/81 95 09/15/23 23:38 36.5 C 106 H 18 121/84 95 09/15/23 23:17 106 H 09/15/23 22:34 O2 Del Method 09/16/23 08:19 Room Air 09/16/23 03:46 Room Air 09/15/23 23:38 Room Air 09/15/23 23:17 09/15/23 22:34 Room Air
--- NOTE | 2023-09-16 11:24 | Orthopedic Consultation ---
Date of Consultation September 16, 2023 Assessment & Plan (1) Lumbar discitis: Assessment lumbar discitis L5-S1. Plan a long discussion today with the patient and her daughters reviewing her MRI findings and clinical case. At this point if she fails to respond to IV antibiotics with continued back pain or worsening of the lumbar infection she would require transfer to tertiary care. We do not have the ability to safely access the L5-S1 level and perform the required procedure to eradicate the infection. They understand agree with this plan. History of Present Illness Reason for Consultation: Lumbar discitis Attending Physician: Octavio Arita MD History of Present Illness Is a very pleasant 73-year-old female admitted to the hospital with multiple medical issues including urosepsis. MRI of the lumbar spine performed recently demonstrates evidence of discitis L5-S1. This morning the patient is in the room with her 2 daughters. She is comfortable lying at rest. She denies any numbness or tingling in the lower extremities. She states she has not been out of bed without the assistance of a Ketty lift for approximately 4 weeks. She has significant pain when sitting upright. She is developing sacral ulcer secondary to prolonged bedrest. She is planning to have lithotripsy today. Allergies Allergy/AdvReac Type Severity Reaction Status Date / Time Penicillins Allergy Intermediate URTICARIA; Verified 09/11/23 22:37 PER PT, CAN TAKE AMOXICILLIN erythromycin base AdvReac Intermediate GI UPSET Verified 09/11/23 22:37 Home Medications Medication Instructions Recorded Confirmed Type allopurinol 100 mg tablet 200 mg PO HS 02/15/18 09/11/23 History (Zyloprim) omeprazole 20 mg capsule,delayed 20 mg PO QAM 02/15/18 09/11/23 History release magnesium oxide 400 mg PO QPM 02/03/20 09/11/23 History rosuvastatin 10 mg tablet (Crestor) 10 mg PO HS 02/03/20 09/11/23 History metoprolol tartrate 50 mg tablet 50 mg PO BID #0 tabs 02/09/20 09/11/23 Rx cholecalciferol (vitamin D3) 25 1,000 unit PO QAM 06/20/20 09/11/23 History mcg (1,000 unit) capsule metformin 500 mg tablet,extended 500 mg PO QAM 06/20/20 09/11/23 History release 24 hr amiodarone 200 mg tablet 200 mg PO QAM 09/04/20 09/11/23 History multivitamin 1 tab PO QPM 03/10/21 09/11/23 History levothyroxine 112 mcg tablet 112 mcg PO QAM 04/14/21 09/11/23 History acetaminophen 500 mg tablet 500 mg PO TID PAIN/FEVER 07/15/21 09/11/23 History (Tylenol Extra Strength) iron,carbonyl 65 mg-vitamin C 125 1 tab PO MOWEFR 07/30/23 09/11/23 History mg tablet,delayed release (Vitron-C) repaglinide 0.5 mg tablet 0.5 mg PO TIDM 07/30/23 09/11/23 History ondansetron HCl 4 mg tablet 4 mg PO Q8H PRN nausea and 08/27/23 09/11/23 Rx vomiting #30 tabs tamsulosin 0.4 mg capsule 0.4 mg PO DAILY #30 caps 08/27/23 09/11/23 Rx acetaminophen 325 mg tablet 650 mg PO Q6 PRN Fever Or Pain 09/11/23 09/11/23 History (Tylenol) diclofenac sodium 1 % topical gel 4 g topical QID 09/11/23 09/11/23 History docusate sodium 100 mg capsule 100 mg PO AMHS 09/11/23 09/11/23 History escitalopram oxalate 5 mg tablet 5 mg PO QAM 09/11/23 09/11/23 History insulin lispro 100 unit/mL 1 sliding scale dose subcut ACHS 09/11/23 09/11/23 History subcutaneous solution (Humalog U-100 Insulin) menthol 0.44 %-zinc oxide 20.6 % 1 applic topical DIRECTED 09/11/23 09/11/23 History topical ointment (Calmoseptine) oxycodone 5 mg tablet 5 mg PO Q4H PRN Pain 09/11/23 09/11/23 History polyethylene glycol 3350 17 17 g PO QAM 09/11/23 09/11/23 History gram/dose oral powder (Miralax) sodium chloride 0.65 % nasal spray 2 spray intranasal Q8 PRN DRYNESS 09/11/23 09/11/23 History aerosol (Saline Nasal) warfarin 1 mg tablet 1 mg PO HS 09/11/23 09/11/23 History Patient History Medical History (HFpEF) heart failure with preserved ejection fraction PAF (paroxysmal atrial fibrillation) Rotator cuff tear arthropathy of both shoulders Venous ulcer Complex renal cyst Pseudomonas infection Osteonecrosis MRSA infection Diabetic ulcer of left foot associated with diabetes mellitus due to underlying condition, with fat layer exposed Diabetic ulcer of right foot associated with diabetes mellitus due to underlying condition, with fat layer exposed PEA (Pulseless electrical activity) Nephrolithiasis Discitis of lumbosacral region Chronic venous insufficiency Osteoarthritis Anemia MRSA (methicillin resistant Staphylococcus aureus) From wound in 2017 - Per Infection Control (04/21/21) pt does not need to be on precautions at this time T2DM (type 2 diabetes mellitus) Hx of osteomyelitis Spine (02/2020) treated at [facility] with fci antibiotics and oxycodone for pain management Sleep apnea CPAP Hypertension Hypothyroidism Morbid obesity CVA (cerebral vascular accident) Silent > Old infarct found on remote CT imaging (dating back to at least 2017) CKD stage 3 secondary to diabetes DM II (diabetes mellitus, type II), controlled NIDDM Dyslipidemia Gout hx Anemia Hx of basal cell carcinoma Gastric ulcer due to Helicobacter pylori hx Surgical History S/P ureteral stent placement S/P panniculectomy S/P ureteral stent placement History of cystoscopy History of cataract surgery S/P panniculectomy History of umbilical hernia repair (09/11/20) Umbilical Hernia Repair with Mesh - Pete Zafar, DO, FACS History of cardioversion RASHID with cardioversion (02/07/20): MAC sedation at [facility] S/P debridement multiple abdominal debridements at [facility]. 08/2020 History of esophagogastroduodenoscopy (EGD) H/O repair of rotator cuff right H/O left knee surgery multiple knee arthroscopy on left H/O basal cell carcinoma excision Status post Mohs surgery History of carpal tunnel surgery History of arthroplasty of left knee Family History Mother Diabetes Heart disease Father Hypertension Stroke Other No family history of adverse response to anesthesia No pertinent family history Social History Smoking Status: Never smoker Second Hand Exposure: No; Do You Dip or Chew Tobacco: No; Hx Alcohol Use: Yes Alcohol type: wine Hx Substance Use: No Preferred Language: Chinese Communication Ability: Effective Hearing Ability: Normal Divorce Attorney Required: No Beliefs That Will Affect Care: None marital status: / Current Living Situation: Rehab Current Living Situation Comment: [facility]. 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 How many Children do You have: 2 Feels Safe at Home: Yes Diet: diabetic during the past year weight has: decreased > 10 lbs Assistive Devices: CPAP, Lift Chair and Walker Physical Exam Physical Exam: On exam she is alert and oriented. She has intact plantarflexion dorsiflexion some modest hip flexion. She is contraction to the right knee. Sensory is symmetric and intact to lower extremities. Results & Data Vital Signs (Past 12 Hours) Vital Signs Temp Pulse Resp BP BP Pulse Ox O2 Del Method 09/16/23 11:16 36.6 C 116 H 18 110/76 95 Room Air 09/16/23 10:29 Room Air 09/16/23 08:19 36.7 C 116 H 18 120/74 96 Room Air 09/16/23 03:46 36.8 C 104 H 16 123/81 95 Room Air 09/15/23 23:38 36.5 C 106 H 18 121/84 95 Room Air
[2023-09-16] MEDS ORDERED: ONDANSETRON INJ 2 MG/ML 2 ML VIAL IV PRN (14:50)
[2023-09-16] MEDS ORDERED: ePHEDrine sulfate 50 MG/ML AMP IV PRN (14:50)
[2023-09-16] MEDS ORDERED: ATROPINE SULFATE 0.1 MG/ML 10ML SYR IV PRN (14:50)
[2023-09-16] MEDS ORDERED: fentaNYL citrate PF 100 MCG/2 ML VIAL IV PRN (14:50)
--- NOTE | 2023-09-16 14:50 | Anesthesiology Consultation ---
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 Surgery Operation Date: 09/16/23 14:30 Proposed Procedures p Cystoscopy, Ureteronephroscopy, Retrograde Pyelogram, with Possible Ureteral Dilation, Laser Destruction or Extraction of the Stone, Insertion or Exchange of Stent Catheter - - Song Edwards, Height/Weight Height: 5 ft 2 in Weight: 111.4 kg Allergies Allergy/AdvReac Type Severity Reaction Status Date / Time Penicillins Allergy Intermediate URTICARIA; Verified 09/11/23 22:37 PER PT, CAN TAKE AMOXICILLIN erythromycin base AdvReac Intermediate GI UPSET Verified 09/11/23 22:37 Medications Home Medications Medication Instructions Recorded Confirmed Last Taken allopurinol 100 mg tablet 200 mg PO HS 02/15/18 09/11/23 07/29/23 (Zyloprim) omeprazole 20 mg capsule,delayed 20 mg PO QAM 02/15/18 09/11/23 07/28/23 release magnesium oxide 400 mg PO QPM 02/03/20 09/11/23 07/29/23 rosuvastatin 10 mg tablet (Crestor) 10 mg PO HS 02/03/20 09/11/23 07/29/23 metoprolol tartrate 50 mg tablet 50 mg PO BID #0 tabs 02/09/20 09/11/23 07/29/23 21:00 cholecalciferol (vitamin D3) 25 1,000 unit PO QAM 06/20/20 09/11/23 07/28/23 mcg (1,000 unit) capsule metformin 500 mg tablet,extended 500 mg PO QAM 06/20/20 09/11/23 07/28/23 release 24 hr amiodarone 200 mg tablet 200 mg PO QAM 09/04/20 09/11/23 07/28/23 multivitamin 1 tab PO QPM 03/10/21 09/11/23 07/29/23 levothyroxine 112 mcg tablet 112 mcg PO QAM 04/14/21 09/11/23 07/28/23 acetaminophen 500 mg tablet 500 mg PO TID PAIN/FEVER 07/15/21 09/11/23 07/28/23 (Tylenol Extra Strength) iron,carbonyl 65 mg-vitamin C 125 1 tab PO MOWEFR 07/30/23 09/11/23 Unknown mg tablet,delayed release (Vitron-C) repaglinide 0.5 mg tablet 0.5 mg PO TIDM 07/30/23 09/11/23 Unknown ondansetron HCl 4 mg tablet 4 mg PO Q8H PRN nausea and 08/27/23 09/11/23 Unknown vomiting #30 tabs tamsulosin 0.4 mg capsule 0.4 mg PO DAILY #30 caps 08/27/23 09/11/23 Unknown acetaminophen 325 mg tablet 650 mg PO Q6 PRN Fever Or Pain 09/11/23 09/11/23 Unknown (Tylenol) diclofenac sodium 1 % topical gel 4 g topical QID 09/11/23 09/11/23 Unknown docusate sodium 100 mg capsule 100 mg PO AMHS 09/11/23 09/11/23 Unknown escitalopram oxalate 5 mg tablet 5 mg PO QAM 09/11/23 09/11/23 Unknown insulin lispro 100 unit/mL 1 sliding scale dose subcut ACHS 09/11/23 09/11/23 Unknown subcutaneous solution (Humalog U-100 Insulin) menthol 0.44 %-zinc oxide 20.6 % 1 applic topical DIRECTED 09/11/23 09/11/23 Unknown topical ointment (Calmoseptine) oxycodone 5 mg tablet 5 mg PO Q4H PRN Pain 09/11/23 09/11/23 Unknown polyethylene glycol 3350 17 17 g PO QAM 09/11/23 09/11/23 Unknown gram/dose oral powder (Miralax) sodium chloride 0.65 % nasal spray 2 spray intranasal Q8 PRN DRYNESS 09/11/23 09/11/23 Unknown aerosol (Saline Nasal) warfarin 1 mg tablet 1 mg PO HS 09/11/23 09/11/23 Unknown Active Medications Generic Name Dose Route Start Last Admin Trade Name Freq PRN Reason Stop Dose Admin Acetaminophen 650 mg 09/11/23 23:51 09/14/23 06:42 Acetaminophen 325 Mg Tab PO 10/11/23 23:50 650 mg Q4H PRN Administration Pain or Fever Allopurinol 200 mg 09/12/23 21:00 09/15/23 21:26 Allopurinol 100 Mg Tab PO 10/12/23 20:59 200 mg HS MONIKA Administration Amiodarone HCl 200 mg 09/12/23 09:00 09/16/23 08:49 Amiodarone 200 Mg Tab PO 10/12/23 08:59 200 mg QAM MONIKA Administration Ascorbic Acid 250 mg 09/13/23 09:00 09/15/23 08:32 Ascorbic Acid 500 Mg Tab PO 10/13/23 08:59 250 mg [email or web address] MONIKA Administration Diclofenac Sodium 4 gm 09/12/23 09:00 09/16/23 12:22 Diclofenac Sod 1% Gel 100 Gm Tube EXT 10/12/23 08:59 4 gm QID MONIKA Administration Protocol Docusate Sodium 100 mg 09/12/23 09:00 09/16/23 08:49 Docusate Sodium 100 Mg Cap PO 10/12/23 08:59 Not Given BID MONIKA Enoxaparin Sodium 40 mg 09/12/23 08:00 09/16/23 08:38 Enoxaparin Inj 40 Mg/0.4 Ml Syr SQ 10/12/23 07:59 Not Given Q12H MONIKA Escitalopram Oxalate 5 mg 09/12/23 09:00 09/16/23 08:47 Escitalopram Oxalate 10 Mg Tab PO 10/12/23 08:59 5 mg QAM MONIKA Administration Ferrous Sulfate 325 mg 09/13/23 09:00 09/15/23 08:32 Ferrous Sulfate 325 Mg Tab PO 10/13/23 08:59 325 mg [email or web address] MONIKA Administration Furosemide 20 mg 09/15/23 21:00 09/16/23 08:49 Furosemide Inj 20 Mg/2 Ml Vial IV 10/15/23 20:59 20 mg Q12 MONIKA Administration Sodium Chloride 1,000 mls @ 75 mls/hr 09/11/23 23:51 09/16/23 11:05 Nss IV 10/11/23 23:50 75 mls/hr .[id number] MONIKA Administration Piperacillin Sod/Tazobactam 100 mls @ 25 mls/hr 09/12/23 03:00 09/16/23 11:18 Sod 4.5 gm/ Dextrose IV 09/22/23 02:59 25 mls/hr Q8H MONIKA Administration Protocol Daptomycin 700 mg/ Syringe 14 mls @ 7 mls/min 09/13/23 02:00 09/16/23 02:19 IV 09/22/23 01:59 7 mls/min Q24H MONIKA Administration Protocol Insulin Aspart 0 units 09/12/23 07:30 09/16/23 12:22 Insulin Aspart Per Unit Charge SC 10/12/23 07:29 2 units ACHS MONIKA Administration Insulin Glargine 5 units 09/12/23 09:00 09/16/23 08:53 Lantus Per Unit Charge SQ 10/12/23 08:59 5 units DAILY OMNIKA Administration Lactobacillus Acidophilus 1,250 mg 09/14/23 11:00 09/16/23 08:47 Advanced Probiotic 625 Mg Capsule PO 10/14/23 10:59 1,250 mg DAILY MONIKA Administration Levothyroxine Sodium 112 mcg 09/12/23 06:30 09/16/23 05:54 Levothyroxine Sodium 112 Mcg Tablet PO 10/12/23 06:29 112 mcg DAILYBB MONIKA Administration Magnesium Oxide 400 mg 09/12/23 21:00 09/15/23 21:25 Magnesium Oxide 400 Mg Tab PO 10/12/23 20:59 400 mg QPM MONIKA Administration Metoprolol Tartrate 50 mg 09/12/23 09:00 09/16/23 08:48 Metoprolol Tartrate 50 Mg Tab PO 10/12/23 08:59 50 mg BID MONIKA Administration Multivitamins 1 tab 09/12/23 21:00 09/15/23 21:25 Multivitamin Tab PO 10/12/23 20:59 1 tab QPM MONIKA Administration Oxycodone HCl 5 mg 09/12/23 00:01 09/16/23 09:23 Oxycodone Hcl Ir 5 Mg Tab (Immediate Release) PO 09/26/23 00:00 5 mg Q4H PRN Administration Pain Pantoprazole Sodium 40 mg 09/12/23 09:00 09/16/23 08:47 Pantoprazole 40 Mg Tab PO 10/12/23 08:59 40 mg QAM MONIKA Administration Polyethylene Glycol 17 gm 09/12/23 09:00 09/16/23 08:15 Polyethylene (Miralax) 17 Gm Pack PO 10/12/23 08:59 Not Given QAM MONIKA Potassium Chloride 20 meq 09/15/23 10:30 09/16/23 08:15 Potassium Chloride 20 Meq/15 Ml Udc PO 10/15/23 10:29 Not Given BID MONIKA Rosuvastatin Calcium 10 mg 09/12/23 21:00 09/15/23 21:26 Rosuvastatin Calcium 10 Mg Tab PO 10/12/23 20:59 10 mg HS MONIKA Administration Tamsulosin HCl 0.4 mg 09/12/23 09:00 09/16/23 08:48 Tamsulosin Hcl 0.4 Mg Cap PO 10/12/23 08:59 0.4 mg DAILY MONIKA Administration Vitamin D 25 mcg 09/12/23 09:00 09/16/23 08:47 Cholecalciferol 25 Mcg (1000 Units) Tab PO 10/12/23 08:59 25 mcg QAM MONIKA Administration Warfarin Sodium 1 mg 09/12/23 21:00 09/14/23 21:03 Warfarin Sod 1 Mg Tab PO 10/12/23 20:59 1 mg HS MONIKA Administration Past Medical History Medical History Rotator cuff tear arthropathy of both shoulders Venous ulcer Complex renal cyst Pseudomonas infection Osteonecrosis MRSA infection Diabetic ulcer of left foot associated with diabetes mellitus due to underlying condition, with fat layer exposed Diabetic ulcer of right foot associated with diabetes mellitus due to underlying condition, with fat layer exposed PEA (Pulseless electrical activity) Nephrolithiasis Discitis of lumbosacral region Chronic venous insufficiency Osteoarthritis Anemia MRSA (methicillin resistant Staphylococcus aureus) From wound in 2017 - Per Infection Control (04/21/21) pt does not need to be on precautions at this time Hx of osteomyelitis Spine (02/2020) treated at [facility] with retirement antibiotics and oxycodone for pain management CVA (cerebral vascular accident) Silent > Old infarct found on remote CT imaging (dating back to at least 2017) CKD stage 3 secondary to diabetes DM II (diabetes mellitus, type II), controlled NIDDM Dyslipidemia Gout hx Anemia Hx of basal cell carcinoma Gastric ulcer due to Helicobacter pylori hx Past Family History Family History Mother Diabetes Heart disease Father Hypertension Stroke Other No family history of adverse response to anesthesia No pertinent family history Past Surgical History Surgical History S/P ureteral stent placement S/P panniculectomy History of cystoscopy History of cataract surgery S/P panniculectomy History of umbilical hernia repair (09/11/20) Umbilical Hernia Repair with Mesh - Pete Zafar DO, FACS History of cardioversion RASHID with cardioversion (02/07/20): MAC sedation at [facility] S/P debridement multiple abdominal debridements at [facility]. 08/2020 History of esophagogastroduodenoscopy (EGD) H/O repair of rotator cuff right H/O left knee surgery multiple knee arthroscopy on left H/O basal cell carcinoma excision Status post Mohs surgery History of carpal tunnel surgery History of arthroplasty of left knee Social History Smoking Status: Never smoker Do You Dip or Chew Tobacco: No Hx Alcohol Use: Yes Alcohol type: wine alcohol intake frequency: holidays/special occasions only Hx Substance Use: No substance use type: does not use Physical Exam Vital Signs Last Vital Signs Temp 97.9 F 09/16/23 11:16 Pulse 118 H 09/16/23 11:35 Resp 18 09/16/23 11:16 BP 110/76 09/16/23 11:16 Pulse Ox 95 09/16/23 11:16 O2 Del Method Room Air 09/16/23 11:16 O2 Flow Rate 1 09/13/23 07:38 Testing Laboratory Results 09/16/23 06:40 09/16/23 06:40 PT 14.6 Seconds (9.0-12.0) H 09/16/23 06:36 INR 1.4 (0.9-1.1) H 09/16/23 06:36 APTT 28 Seconds (21-31) 09/11/23 19:40 Urine Color Yellow 09/11/23 20:37 Urine Appearance Cloudy (Clear) A 09/11/23 20:37 Urine pH 5.5 (4.5-7.5) 09/11/23 20:37 Ur Specific [place] 1.015 (1.000-1.030) 09/11/23 20:37 Urine Protein Trace (Negative) H 09/11/23 20:37 Urine Glucose (UA) Negative (Negative) 09/11/23 20:37 Urine Ketones Negative (Negative) 09/11/23 20:37 Urine Nitrite Negative (Negative) 09/11/23 20:37 Ur Leukocyte Esterase 3+ (Negative) H 09/11/23 20:37 Urine WBC (Auto) 21-50 /hpf (0-5) H 09/11/23 20:37 Urine RBC (Auto) 0-2 /hpf (0-2) 09/11/23 20:37 U Hyaline Cast (Auto) 0-2 /lpf (0-2) 09/11/23 20:37 U Epithel Cells (Auto) 3-5 /hpf (0-2) H 09/11/23 20:37 Urine Bacteria (Auto) 4+ (None Seen) H 09/11/23 20:37 09/11/23 19:40 Aerobic Blood Culture - Final Blood Escherichia coli Anaerobic Blood Culture - Final Escherichia coli 09/12/23 12:23 Aerobic Blood Culture - Preliminary Blood No growth in Aerobic bottle after 48 hours. Anaerobic Blood Culture - Preliminary No growth in Anaerobic bottle after 48 hours. 09/12/23 12:18 Aerobic Blood Culture - Preliminary Blood No growth in Aerobic bottle after 48 hours. Anaerobic Blood Culture - Preliminary No growth in Anaerobic bottle after 48 hours. 09/11/23 19:42 Aerobic Blood Culture - Preliminary Blood No growth in Aerobic bottle after 48 hours. Anaerobic Blood Culture - Final 09/11/23 20:37 Urine Culture - Final Urine,Straight Cath Escherichia coli Lactobacillus species 09/16/23 09/16/23 12:09 08:20 POC Glucose 181 H 196 H Electrocardiogram Date: 09/15/23 Undetermined rhythm, rate 95 bpm Left axis deviation Septal infarct , age undetermined ST & T wave abnormality, consider lateral ischemia Abnormal ECG When compared with ECG of 11-SEP-2023 18:47, Current undetermined rhythm precludes rhythm comparison, needs review Septal infarct is now Present T wave inversion now evident in Lateral leads Chest X-Ray Date: 09/11/23 IMPRESSION: No acute abnormalities and in particular no radiographic evidence of pneumonia.
[2023-09-16] MEDS ORDERED: DIATRIZOATE MEGLUMINE 30% 100ML VIAL INSTIL PRN (16:37)
--- NOTE | 2023-09-16 16:43 | Hospitalist Progress Note ---
Date of Service September 16, 2023 Assessment & Plan (1) AMS (altered mental status): Plan: per admitting service notes with addendum: 73 yo F with type 2 diabetes, gout, hyperlipidemia, hypothyroidism, obstructive sleep apnea on CPAP, paroxysmal atrial fibrillation, chronic diastolic CHF, CKD stage III, pulmonary hypertension, obesity, GERD, chronic bilateral low back pain, history of CVA, history of gastric ulcer comes from [facility] because of patient being sleeping more and less interactive. Patient was admitted on July 30, 2023 with UTI and sepsis and right ureteral calculus had adenovirus infection and SAJAN with creatinine of 4.2 and then patient was in septic shock requiring pressors cultures growing VRE, E. coli and Proteus mirabilis in the urine and blood cultures growing E. coli and antibiotics were tapered to IV ampicillin per ID to complete 14-day course and she is s/p right ureteral stent placement. kidney function improved and she was discharged to shelter on August 10, 2023. Patient currently somewhat drowsy. But alert and oriented x 3. States is not ambulated since last 3 weeks. States feeling depressed. Denies any headache. No blurred vision. No earache or runny nose or sore throat. No cough. States appetite is down but swallowing okay. Denies chest pain or shortness of breath. No nausea or vomiting. No abdominal pain. Normal bowel and bladder movements. Initially when she came in her blood pressure was soft systolic blood pressure 90s but improved with the fluids. Altered mental status - mental status now improved Mostly from UTI, bacteremia UTI in the setting of indwelling ureteral stent Hyponatremia Sepsis, POA Metabolic encephalopathy Recently had urine cultures growing Enterococcus faecalis resistant to vancomycin but was sensitive to ampicillin and daptomycin. Urine cultures were also positive for E. coli and Proteus and blood cultures were positive for pansensitive E. coli.Completed 14days of iv ampicillin. Received Zosyn in the ER. Will continue Zosyn and IV Dapto until further cultures are available. Blood cultx - posit. for E.coli Ucultx - E.coli, Lactobacillus Initially was borderline hypotensive improved with the fluids gentle fluids Last admission right nephroureteral stent was placed which is intact on the current CAT scan Urology consulted and discussed with - Pt was scheduled for outpatient procedure for stone treatment and stent exchange on 09/16/23. - Given her positive blood and urine cultures, she will need to be on IV antibiotic for several days prior to intervention. - Ideally if she remains inpatient and is improving on IV antibiotics, we will plan to proceed 09/16/[address] Edwards. ID consulted and discussed with - will obtain boles MRI of spine w/ contrast - nephrology also aware 09/15 currently on Daptomycin + Zosyn IV for stone treatment and ureteral stent exchange tomorrow R iliacus/iliopsoas abscesses L5-S1 discitis and osteomyelitis shown on MRI of lumbar spine discussed with ID, recommend Ortho Spine and IR consult- no surgery, procedures for now, continue IV abx Acute on chronic hyponatremia Presented with sodium of 118 Her sodium was 128s to 130s last admission Recently on September 01 and September 05 sodium was 124 and 123 Got fluids for low blood pressure Will check urine osmolality, urine sodium, serum osmolality Close monitor of labs Slow correction of sodium Current Na 133 Nephrology consulted to help with slow correction Hyperkalemia Potassium 5.5 repeat labs K was 6.4. received iv insulin 10units, amp of d50 and iv calcium gluconate and placed on Lokelma. Nephrology consulted, K now wnl Elevated troponin Troponin 16 mostly demand ischemia Will follow serial exams Obstructive sleep apnea CPAP nightly refused cpap says she was on cpap for last 5-6yrs but not using for last 6 weeks as mask was not fitting. She got new mask but not started using it yet as she had cold symptoms. CKD stage III Presented with creatinine 1.4 seems around baseline Will follow the labs Diabetes Will hold home p.o. medications Sliding scale and lantus 5units daily for now Will monitor History of paroxysmal atrial fibrillation On amiodarone and metoprolol and Coumadin INR 1.5 Needs adjustment of Coumadin dose Follow PT/INR Looks like she was on 3mg Coumadin daily and her inr was running high and Coumadin dose was reduced. Because of anasarca and hypoalbuminemia liver ultrasound was done at [facility] but was negative for cirrhosis per notes from shelter. Can consider novel agents Close monitor -- hold coumadin for procedure Chronic diastolic CHF Was on spironolactone and Bumex last admission but seems stopped at [place] for hyponatremia and ? worsening kidney function Seems currently not on diuretics Will monitor for volume overload Nephrology following Gout On allopurinol Depression recently started on Lexapro Hypothyroidism On Synthyroid Hyperlipidemia On statin GERD On omeprazole Hypertension Lisinopril and amlodipine were held at time of discharge last admission on metoprolol Will monitor DVT prophylaxis coumadin held for procedure Prophylactic Lovenox until INR therapeutic Disposition - pending plan of care discussed with patient and her daughters at bedside in detail and at length all questions answered they are understanding, agreeable, comfortable with the plan of care Admission and Anticipated Discharge Date Admission Date: September 11, 2023 Subjective Follow-up for UTI, bacteremia, etc. Seen resting in bed, comfortable not in distress States she feels okay overall Denies pain no chest pain, dyspnea, palpitations, dizziness Eager to have urology procedure today done No other new symptoms Review of Systems Review of Systems: all noted and negative except for above Physical Exam Physical Exam: General- oriented x 3, not in distress, speaks in sentences with no effort or accessory muscle use Eyes- anicteric Neck- no JVD Lungs- clear breath sounds bilaterally, no rales/wheezes Heart- normal rate, regular rhythm; no murmurs Abdomen- normal bowel sounds, nondistended, soft, no tenderness Extremities- no pretibial edema, no calf tenderness Neuro- alert, oriented x 3; no gross focal neurologic deficits Skin- warm & dry Results & Data Results & Data Vital Signs (Past 12 Hours) Vital Signs Temp Pulse Pulse Resp BP BP Pulse Ox 09/16/23 14:45 36.6 C 119 H 20 120/77 98 09/16/23 11:35 118 H 09/16/23 11:16 36.6 C 116 H 18 110/76 95 09/16/23 10:29 09/16/23 08:19 36.7 C 116 H 18 120/74 96 O2 Del Method 09/16/23 14:45 Room Air 09/16/23 11:35 09/16/23 11:16 Room Air 09/16/23 10:29 Room Air 09/16/23 08:19 Room Air all noted and reviewed including below
--- NOTE | 2023-09-16 16:46 | Operative Report ---
PG Post Operative Report Pre & Post Diagnosis Operation Date: 09/16/23 14:30 Pre-Op Diagnosis: Complicated Urinary Tract Infection, Kidney Stones Post-Op Diagnosis: Complicated Urinary Tract Infection, Kidney Stones I identified the patient and participated in the time-out.: Yes Procedure Operation Date: 09/16/23 14:30 Actual Procedures p Cystoscopy with right Ureteronephroscopy, Retrograde Pyelogram, Ureteral Dilation, Laser Lithotripsy, Stone Basket Extraction, and Exchange of Stent Catheter - Right(Right) - Song Edwards DO Surgeon Song Edwards, II, DO Training Program Developer None Estimated Blood Loss 1 Findings Consistent with Post-Op Diagnosis Stricture of mid/proximal ureter dilated. Large Right Renal Stone destroyed to dust and small fragments and larger fragments removed. Specimens Stone Fragments Drains 6 Fr x 24 cm on TETHER Anesthesia Type General Complications none Disposition Disposition: Recovery Room Indications Patient with bothersome stones. Risks and benefits discussed at length. Description of Procedure Patient was consented and brought back to the operating room. Patient was placed under anesthesia in the supine position and moved to the dorsal lithotomy position. Patient was prepped and draped in the regular sterile fashion. A time out was completed identifying the correct patient and procedure. A 30degree Cystoscope was placed into the bladder and the entire bladder was examined. The UO's were identified. The stent was grasped and partially removed. A wire was then placed into the stent. The stent was then fully removed. Over the wire, The UO was cannulized with a catheter and a retrograde pyelogram was completed. A wire was then placed. A ureteral access sheath and second safety wire was placed. The proximal ureter had a area of stricture which was narrowed this was dilated. The flexible ureteroscope was taken into the ureter. The entire ureter and renal pelvis were examined. The stones were identified. A laser fiber was selected and the stones were pulverized to dust and small fragments. Larger fragments were grasped and removed and sent for analysis. The entire area was once again examined. No residual large fragments or areas of concern were noted. The scope was slowly removed with the wire left in place. Contrast was placed through the scope for a pyelogram to assist in stent placement. The entire ureter was examined as the scope was slowly removed. No obstructions or other areas of concern were noted. With the wire in place, a 6 Fr Double J stent was placed maintaining a tether. It was confirmed with fluoroscopy. With the stent in place, the bladder was emptied. The tether was then secured to the mons pubis. The scope was removed. The patient was cleaned, aroused from anesthesia, and transferred to the pacu in stable condition having tolerated the procedure well with no complications. I was present and participated in all aspects of the procedure. The patient will be monitored in the PACU until transferred. Will plan to remove tethered stent in approximately 3 to 5 days at bedside. I attest to the content of the Intraoperative Record and any orders documented therein. Any exceptions are noted below.
--- NOTE | 2023-09-16 17:01 | Fluoroscopy Report ---
FL retrograde includes kub CLINICAL HISTORY: Right ureteral stent placement. COMPARISON STUDY: None. FLUOROSCOPY TIME: 15 second FLUOROSCOPY IMAGES: 2 Ka,r: 4.7 mGy FINDINGS: Retrograde opacification of the right renal collecting system followed by placement of a ri ght ureteral stent. The visualized stent appears in good position. IMPRESSION: Fluoroscopic assistance as above. ACT 112: Negative or not required by law. Electronically signed by: Suhail Nolen M.D. 09/16/2023 4:59 PM
--- NOTE | 2023-09-16 17:32 | Anesthesiology Progress Note ---
Date of Service September 16, 2023 Anesthesia Post Procedure Vital Signs Vital Signs: Temp Pulse Pulse Resp BP BP Pulse Ox 09/16/23 17:20 97.7 F 114 H 12 97/61 L 94 09/16/23 17:10 113 H 14 112/65 99 09/16/23 17:00 96.8 F L 111 H 16 116/86 100 09/16/23 14:45 97.9 F 119 H 20 120/77 98 09/16/23 11:35 118 H 09/16/23 11:16 97.9 F 116 H 18 110/76 95 09/16/23 10:29 09/16/23 08:19 98.1 F 116 H 18 120/74 96 09/16/23 03:46 98.2 F 104 H 16 123/81 95 09/15/23 23:38 97.7 F 106 H 18 121/84 95 09/15/23 23:17 106 H 09/15/23 22:34 09/15/23 19:44 97.7 F 93 H 18 108/73 95 O2 Del Method O2 Flow Rate 09/16/23 17:20 Room Air 09/16/23 17:10 Oxymask 4 09/16/23 17:00 Oxymask 6 09/16/23 14:45 Room Air 09/16/23 11:35 09/16/23 11:16 Room Air 09/16/23 10:29 Room Air 09/16/23 08:19 Room Air 09/16/23 03:46 Room Air 09/15/23 23:38 Room Air 09/15/23 23:17 09/15/23 22:34 Room Air 09/15/23 19:44 Room Air Pain Intensity Generalized: Pain Intensity: 10 Lumbar: Pain Intensity: 8 Transfer of Care Handoff Completed per policy Notes Mental Status: alert / awake / arousable and participated in evaluation Patient Amnestic to Procedure: Yes Nausea / Vomiting: adequately controlled Pain: adequately controlled Airway Patency, RR, SpO2: stable & adequate BP & HR: stable & adequate Hydration State: stable & adequate Anesthetic Complications: no major complications apparent and Pt Satisfied with anesthetic care
[2023-09-17 07:35] LABS: Basophils # (auto) 0.01 K/uL (0.00-0.20); Basophils % (auto) 0.1 %; Eosinophils # (auto) 0.01 K/uL (0.00-0.50); Eosinophils % (auto) 0.1 %; Hematocrit (blood only) 25.8 % (37.0-47.0); Immature Granulocytes # (auto) 0.38 K/uL (0.01-0.20); Immature Granulocytes % (auto) 4.8 %; Lymphocytes # (auto) 1.04 K/uL (1.20-3.40); Lymphocytes % (auto) 13.2 %; Mean Corpuscular Hemoglobin 26.8 pg (25.0-34.0); Mean Corpuscular Volume 86.6 fL (80.0-100.0); Mean Platelet Volume 9.2 fL (9.4-12.4); Monocytes # (auto) 0.28 K/uL (0.11-0.59); Monocytes % (auto) 3.5 %; Neutrophils # (auto) 6.18 K/uL (1.40-6.50); Neutrophils % (auto) 78.3 %; Platelet Count 295 K/uL (130-400); RDW Coefficient of Variation 16.9 % (11.5-14.5); RDW Standard Deviation 53.3 fL (36.4-46.3); Red Blood Count 2.98 M/uL (4.20-5.40)
[2023-09-17 07:46] LABS: BUN Creatinine Ratio 22.4 (10-20); Calcium 7.8 mg/dl (8.6-10.3); Est GFR (African American) 78.8 ml/min; Potassium 4.5 mmol/L (3.5-5.1)
--- NOTE | 2023-09-17 09:24 | Nephrology Progress Note ---
Date of Service September 17, 2023 Assessment & Plan Admission and Anticipated Discharge Date Admission Date: September 11, 2023 Subjective Assessment & Plan (1) Chronic hyponatremia: chronic -- hyponatremia improving from 118 at 09/10 presentation to 133 with Just NS---behaving as prerenal/hypovolemic. no prior hx of this issue. Presented w/ critical hyponatremia but improved appropriately w/ NS. However na now dropped from 133 to 129 yesterday but then now stable at 131 today even now PO intake is borderline. But getting better Will stop Lasix, NS and also the kcl as preparation for Discharge. Continue FFR 1500 ml/day monitor BMP now daily in AM. Also renal function normal now so SAJAN has resolved. (2) E coli bacteremia: w/ E coli and Enterobacter on admission cultures continue zosyn/daptomycin had laser lithotripsy and Stent exchange yesterday ID consult note reviewed S---She had urological intervention yesterday. Slightly bloody urine as expected. She feels thirsty. Not hungry. Po intake is borderline low. Physical Exam Physical Exam: General- weak. Head- atraumatic Neck- supple, no JVD. Lungs- clear to auscultation no wheezing or crackles. Heart- regular rhythm; no murmur, no gallop. Abdomen- normal bowel sounds, soft, nontender, no distension Extremities- 1+ edema, no erythema seen Neuro- alert, oriented x 3 but drowsy; PERRL, ; no facial palsy; no dysarthria; obeys simple commands, moves extremities. Results & Data Vital Signs (Past 12 Hours) Vital Signs Temp Pulse Pulse Resp BP BP Pulse Ox 09/17/23 08:06 36.7 C 117 H 19 109/73 94 09/17/23 03:45 36.4 C L 113 H 16 107/61 95 09/17/23 00:33 36.8 C 109 H 18 128/84 94 09/17/23 00:30 105 H 09/16/23 21:56 112 H 115/77 09/16/23 21:26 74 108/67 O2 Del Method 09/17/23 08:06 Room Air 09/17/23 03:45 Room Air 09/17/23 00:33 Room Air 09/17/23 00:30 09/16/23 21:56 09/16/23 21:26
[2023-09-17] MEDS: AMPICILLIN/SULBACTAM SOD 3,000 MG in SODIUM CHLOR 0.9% MINI-B 100 ML IV SCH (12:06)
--- NOTE | 2023-09-17 14:44 | Urology Progress Note ---
Date of Service September 17, 2023 Assessment & Plan (1) Complicated UTI (urinary tract infection): (2) S/P ureteral stent placement: (3) Kidney stones: Plan - POD #1 s/p Cystoscopy with right Ureteronephroscopy, Retrograde Pyelogram, Ureteral Dilation, Laser Lithotripsy, Stone Basket Extraction, and Exchange of Stent Catheter - Afebrile, normotensive, mildly tachycardic. - Labs today- WBC 7.90, Creatinine 0.85. - Urine culture 09/10 grew E.coli. - Blood cultures 09/10 prelim E.coli; Repeat blood cultures negative. - On Unasyn/Daptomycin. ID consulted. - Tethered stent in place. Will plan to remove at bedside in approximately 3-5 days. - Continue antibiotic therapy. - Continue supportive care and management per primary team. - Urology will follow peripherally. Admission and Anticipated Discharge Date Admission Date: September 11, 2023 Subjective Pt seen at bedside Awake, resting in bed on arrival No acute distress Daughters at bedside External cath in place, urine is yellow Denies f/c/n/v Tethered stent in place No significant pain at present Review of Systems Constitutional: as per Subjective / HPI Genitourinary: as per Subjective / HPI Physical Exam Constitutional: no acute distress Respiratory: no respiratory distress and no labored breathing Neurologic: awake Psychiatric: Orientation: alert, oriented x 3 and cooperative Genitourinary: tethered stent secured to mons pubis Results & Data Vital Signs (Past 12 Hours) Vital Signs Temp Pulse Pulse Resp BP BP Pulse Ox 09/17/23 10:55 36.3 C L 97 H 20 108/75 95 09/17/23 09:45 113 H 09/17/23 08:06 36.7 C 117 H 19 109/73 94 09/17/23 03:45 36.4 C L 113 H 16 107/61 95 O2 Del Method 09/17/23 10:55 Room Air 09/17/23 09:45 09/17/23 08:06 Room Air 09/17/23 03:45 Room Air PG Care Time/CCT Total # of Minutes Spent Total Time Spent with Patient: Total time spent is greater than 50% in coordination of care (as documented) at patient's floor/unit and/or counseling patient: Coding Level of Care Code 17542 SUB INP/OBS CARE 2/35MIN Diagnoses Complicated UTI (urinary tract infection) N39.0 S/P ureteral stent placement Z96.0 Kidney stones N20.0
--- NOTE | 2023-09-17 15:28 | Electrocardiogram Report ---
Test Reason : Blood Pressure : / mmHG Vent. Rate : 095 BPM Atrial Rate : 096 BPM P-R Int : 088 ms QRS Dur : 102 ms QT Int : 386 ms P-R-T Axes : 000 -31 154 degrees QTc Int : 485 ms Sinus rhythm with occasional PVCs Left axis deviation Abnormal ECG When compared with ECG of 11-SEP-2023 18:47, T wave inversion now evident in Lateral leads Confirmed by Shravan Menchaca ([id number]) on 09/17/2023 3:28:08 PM Referred By: [facility] Confirmed By:Jose Menchaca
--- NOTE | 2023-09-17 19:19 | Hospitalist Progress Note ---
Date of Service September 17, 2023 Assessment & Plan (1) AMS (altered mental status): Plan: per admitting service notes with addendum: 73 yo F with type 2 diabetes, gout, hyperlipidemia, hypothyroidism, obstructive sleep apnea on CPAP, paroxysmal atrial fibrillation, chronic diastolic CHF, CKD stage III, pulmonary hypertension, obesity, GERD, chronic bilateral low back pain, history of CVA, history of gastric ulcer comes from [facility] because of patient being sleeping more and less interactive. Patient was admitted on July 30, 2023 with UTI and sepsis and right ureteral calculus had adenovirus infection and SAJAN with creatinine of 4.2 and then patient was in septic shock requiring pressors cultures growing VRE, E. coli and Proteus mirabilis in the urine and blood cultures growing E. coli and antibiotics were tapered to IV ampicillin per ID to complete 14-day course and she is s/p right ureteral stent placement. kidney function improved and [facility]. Patient currently somewhat drowsy. But alert and oriented x 3. States is not ambulated since last 3 weeks. States feeling depressed. Denies any headache. No blurred vision. No earache or runny nose or sore throat. No cough. States appetite is down but swallowing okay. Denies chest pain or shortness of breath. No nausea or vomiting. No abdominal pain. Normal bowel and bladder movements. Initially when she came in her blood pressure was soft systolic blood pressure 90s but improved with the fluids. Altered mental status - mental status now improved Mostly from UTI, bacteremia UTI in the setting of indwelling ureteral stent Hyponatremia Sepsis, POA Metabolic encephalopathy Recently had urine cultures growing Enterococcus faecalis resistant to vancomycin but was sensitive to ampicillin and daptomycin. Urine cultures were also positive for E. coli and Proteus and blood cultures were positive for pansensitive E. coli.Completed 14days of iv ampicillin. Received Zosyn in the ER. Will continue Zosyn and IV Dapto until further cultures are available. Blood cultx - posit. for E.coli Ucultx - E.coli, Lactobacillus Initially was borderline hypotensive improved with the fluids gentle fluids Last admission right nephroureteral stent was placed which is intact on the current CAT scan Urology consulted and discussed with - Pt was scheduled for outpatient procedure for stone treatment and stent exchange on 09/16/23. - Given her positive blood and urine cultures, she will need to be on IV antibiotic for several days prior to intervention. - Ideally if she remains inpatient and is improving on IV antibiotics, we will plan to proceed 09/16/[address] Edwards. ID consulted and discussed with - will obtain boles MRI of spine w/ contrast - nephrology also aware 09/15 currently on Daptomycin + Zosyn IV for stone treatment and ureteral stent exchange tomorrow 09/16 transition to IV Unasyn R iliacus/iliopsoas abscesses L5-S1 discitis and osteomyelitis shown on MRI of lumbar spine discussed with ID, recommend Ortho Spine and IR consult- no surgery, procedures for now, continue IV abx Acute on chronic hyponatremia Presented with sodium of 118 Her sodium was 128s to 130s last admission Recently on September 01 and September 05 sodium was 124 and 123 Got fluids for low blood pressure Will check urine osmolality, urine sodium, serum osmolality Close monitor of labs Slow correction of sodium Current Na 133 Nephrology consulted to help with slow correction Hyperkalemia Potassium 5.5 repeat labs K was 6.4. received iv insulin 10units, amp of d50 and iv calcium gluconate and placed on Lokelma. Nephrology consulted, K now wnl Elevated troponin Troponin 16 mostly demand ischemia Will follow serial exams Obstructive sleep apnea CPAP nightly refused cpap says she was on cpap for last 5-6yrs but not using for last 6 weeks as mask was not fitting. She got new mask but not started using it yet as she had cold symptoms. CKD stage III Presented with creatinine 1.4 seems around baseline Will follow the labs Diabetes Will hold home p.o. medications Sliding scale and lantus 5units daily for now Will monitor History of paroxysmal atrial fibrillation On amiodarone and metoprolol and Coumadin INR 1.5 Needs adjustment of Coumadin dose Follow PT/INR Looks like she was on 3mg Coumadin daily and her inr was running high and Coumadin dose was reduced. Because of anasarca and hypoalbuminemia liver ultrasound was done at [facility] but was negative for cirrhosis per [facility] from [facility]. Can consider novel agents Close monitor -- hold coumadin for procedure Chronic diastolic CHF Was on spironolactone and Bumex last admission but seems stopped at [place] for hyponatremia and ? worsening kidney function Seems currently not on diuretics Will monitor for volume overload Nephrology following Gout On allopurinol Depression recently started on Lexapro Hypothyroidism On Synthyroid Hyperlipidemia On statin GERD On omeprazole Hypertension Lisinopril and amlodipine were held at time of discharge last admission on metoprolol Will monitor DVT prophylaxis Coumadin held for procedure Disposition -pending plan of care discussed with patient and her daughters at bedside in detail and at length all questions answered they are understanding, agreeable, comfortable with the plan of care Admission and Anticipated Discharge Date Admission Date: September 11, 2023 Subjective Follow-up for bacteremia, UTI, discitis, etc. Seen resting in bed, comfortable, not in distress Having some right hip pain today Otherwise feels okay overall Appetite fair No chest pain, palpitation, dizziness No other new symptoms Review of Systems Review of Systems: all noted and negative except for above Physical Exam Physical Exam: General- oriented x 3, not in distress, speaks in sentences with no effort or accessory muscle use Eyes- anicteric Neck- no JVD Lungs- clear breath sounds bilaterally, No crackles or wheezing Heart- normal rate, regular rhythm; no murmurs Abdomen- normal bowel sounds, nondistended, soft, No tenderness Extremities- no pretibial edema, no calf tenderness Neuro- alert, oriented x 3; no gross focal neurologic deficits Skin- warm & dry Results & Data Results & Data Vital Signs (Past 12 Hours) Vital Signs Temp Pulse Pulse Resp BP BP Pulse Ox 09/17/23 17:03 79 09/17/23 15:56 36.5 C 94 H 21 106/71 94 09/17/23 10:55 36.3 C L 97 H 20 108/75 95 09/17/23 09:45 113 H 09/17/23 08:06 36.7 C 117 H 19 109/73 94 O2 Del Method 09/17/23 17:03 09/17/23 15:56 Room Air 09/17/23 10:55 Room Air 09/17/23 09:45 09/17/23 08:06 Room Air all noted and reviewed including below
[2023-09-17] MEDS: oxyCODONE HCL IR 5 MG TAB (IMMEDIATE RELEASE) PO STA (22:07)
[2023-09-18] MEDS: SODIUM CHLORIDE 0.9% 1,000 ML IV ONE (03:18)
[2023-09-18] MEDS: oxyCODONE HCL IR 5 MG TAB (IMMEDIATE RELEASE) PO PRN (03:18)
[2023-09-18] MEDS: MAGNESIUM SULFATE / D5W 1 GM/100 ML BAG IV ONE (03:21)
[2023-09-18] MEDS: DIGOXIN 250 MCG in SYRINGE 9 ML IV STA ×2 (03:27→06:27)
[2023-09-18] MEDS: AMIODARONE 200 MG TAB PO ONE (06:16)
[2023-09-18 07:09] LABS: Hematocrit (blood only) 24.6 % (37.0-47.0); Hemoglobin 7.6 g/dl (12.0-16.0); Mean Corpuscular Hemoglobin 26.7 pg (25.0-34.0); Mean Corpuscular Hgb Conc 30.9 g/dL (32.0-36.0); Mean Corpuscular Volume 86.3 fL (80.0-100.0); Mean Platelet Volume 9.1 fL (9.4-12.4); Platelet Count 284 K/uL (130-400); RDW Coefficient of Variation 17.2 % (11.5-14.5); RDW Standard Deviation 53.5 fL (36.4-46.3); Red Blood Count 2.85 M/uL (4.20-5.40); White Blood Count 9.18 K/ul (4.8-10.8)
[2023-09-18 07:12] LABS: Magnesium 1.7 mg/dl (1.7-2.4)
[2023-09-18 07:25] LABS: BUN Creatinine Ratio 24.7 (10-20); Calcium 7.9 mg/dl (8.6-10.3); Creatinine Clr Calc Pharmacy 61.2 ml/min; Est GFR (African American) 70.7 ml/min
[2023-09-18 07:28] LABS: Thyroid Stimulating Hormone 1.536 uIu/ml (0.300-4.500)
[2023-09-18 07:37] LABS: Basophils # (auto) 0.04 K/uL (0.00-0.20); Basophils % (auto) 0.4 %; Eosinophils # (auto) 0.08 K/uL (0.00-0.50); Eosinophils % (auto) 0.9 %; Immature Granulocytes # (auto) 0.47 K/uL (0.01-0.20); Immature Granulocytes % (auto) 5.1 %; Lymphocytes # (auto) 1.96 K/uL (1.20-3.40); Lymphocytes % (auto) 21.4 %; Monocytes # (auto) 0.49 K/uL (0.11-0.59); Monocytes % (auto) 5.3 %; Neutrophils # (auto) 6.14 K/uL (1.40-6.50); Neutrophils % (auto) 66.9 %; Polychromasia 1+
[2023-09-18] MEDS: MAGNESIUM SULFATE / D5W 1 GM/100 ML BAG IV SCH (09:51)
[2023-09-18 10:26] LABS: INR 1.3 (0.9-1.1); Prothrombin Time 13.5 Seconds (9.0-12.0)
[2023-09-18] MEDS: FIRST - Mouthwash BLM 119 ML PO SCH (17:41)
--- NOTE | 2023-09-18 17:51 | Hospitalist Progress Note ---
Date of Service September 18, 2023 Assessment & Plan (1) AMS (altered mental status): Plan: per admitting service notes with addendum: 73 yo F with type 2 diabetes, gout, hyperlipidemia, hypothyroidism, obstructive sleep apnea on CPAP, paroxysmal atrial fibrillation, chronic diastolic CHF, CKD stage III, pulmonary hypertension, obesity, GERD, chronic bilateral low back pain, history of CVA, history of gastric ulcer comes from [facility] because of patient being sleeping more and less interactive. Patient was admitted on July 30, 2023 with UTI and sepsis and right ureteral calculus had adenovirus infection and SAJAN with creatinine of 4.2 and then patient was in septic shock requiring pressors cultures growing VRE, E. coli and Proteus mirabilis in the urine and blood cultures growing E. coli and antibiotics were tapered to IV ampicillin per ID to complete 14-day course and she is s/p right ureteral stent placement. kidney function improved and she [facility], 2023. Patient currently somewhat drowsy. But alert and oriented x 3. States is not ambulated since last 3 weeks. States feeling depressed. Denies any headache. No blurred vision. No earache or runny nose or sore throat. No cough. States appetite is down but swallowing okay. Denies chest pain or shortness of breath. No nausea or vomiting. No abdominal pain. Normal bowel and bladder movements. Initially when she came in her blood pressure was soft systolic blood pressure 90s but improved with the fluids. Altered mental status - mental status now improved Mostly from UTI, bacteremia UTI in the setting of indwelling ureteral stent Hyponatremia Sepsis, POA Metabolic encephalopathy Recently had urine cultures growing Enterococcus faecalis resistant to vancomycin but was sensitive to ampicillin and daptomycin. Urine cultures were also positive for E. coli and Proteus and blood cultures were positive for pansensitive E. coli.Completed 14days of iv ampicillin. Received Zosyn in the ER. Will continue Zosyn and IV Dapto until further cultures are available. Blood cultx - posit. for E.coli Ucultx - E.coli, Lactobacillus Initially was borderline hypotensive improved with the fluids gentle fluids Last admission right nephroureteral stent was placed which is intact on the current CAT scan Urology consulted and discussed with - Pt was scheduled for outpatient procedure for stone treatment and stent exchange on 09/16/23. - Given her positive blood and urine cultures, she will need to be on IV antibiotic for several days prior to intervention. - Ideally if she remains inpatient and is improving on IV antibiotics, we will plan to proceed 09/16/[address] Edwards. ID consulted and discussed with - will obtain boles MRI of spine w/ contrast - nephrology also aware 09/15 currently on Daptomycin + Zosyn IV for stone treatment and ureteral stent exchange tomorrow 09/16 transition to IV Unasyn 09/17 Stable overall Continue IV Unasyn Will need a PICC line Alycia dunlap for palate ulcers Monitor closely next R iliacus/iliopsoas abscesses L5-S1 discitis and osteomyelitis shown on MRI of lumbar spine discussed with ID, recommend Ortho Spine and IR consult- no surgery, procedures for now, continue IV abx Acute on chronic hyponatremia Presented with sodium of 118 Her sodium was 128s to 130s last admission Recently on September 01 and September 05 sodium was 124 and 123 Got fluids for low blood pressure Will check urine osmolality, urine sodium, serum osmolality Close monitor of labs Slow correction of sodium Current Na 133 Nephrology consulted to help with slow correction Na 134 Hyperkalemia Potassium 5.5 repeat labs K was 6.4. received iv insulin 10units, amp of d50 and iv calcium gluconate and placed on Lokelma. Nephrology consulted, K now wnl Elevated troponin Troponin 16 mostly demand ischemia Will follow serial exams Obstructive sleep apnea CPAP nightly refused cpap says she was on cpap for last 5-6yrs but not using for last 6 weeks as mask was not fitting. She got new mask but not started using it yet as she had cold symptoms. CKD stage III Presented with creatinine 1.4 seems around baseline stable Diabetes Will hold home p.o. medications Sliding scale and lantus 5units daily for now Will monitor History of paroxysmal atrial fibrillation On amiodarone and metoprolol and Coumadin INR 1.5 Needs adjustment of Coumadin dose Follow PT/INR Looks like she was on 3mg Coumadin daily and her inr was running high and Coumadin dose was reduced. Because of anasarca and hypoalbuminemia liver ultrasound was done at [facility] but was negative for cirrhosis per notes from shelter. Can consider novel agents Close monitor -- resume coumadin Chronic diastolic CHF Was on spironolactone and Bumex last admission but seems stopped at [place] for hyponatremia and ? worsening kidney function Seems currently not on diuretics Will monitor for volume overload Nephrology following Gout On allopurinol Depression recently started on Lexapro Hypothyroidism On Synthyroid Hyperlipidemia On statin GERD On omeprazole Hypertension Lisinopril and amlodipine were held at time of discharge last admission on metoprolol Will monitor DVT prophylaxis Coumadin, heparin SC Disposition -pending plan of care discussed with patient all questions answered she is understanding, agreeable, comfortable with the plan of care Admission and Anticipated Discharge Date Admission Date: September 11, 2023 Subjective Follow-up for UTI, bacteremia, discitis, osteomyelitis, etc. Seen resting in bed, sitting up, awake and alert, comfortable, not in distress States she feels okay overall Reports some pain in the back of the upper palate, and swallowing No fevers or chills, bleeding Denies back or extremity pain today No other new symptom Review of Systems Review of Systems: all noted and negative except for above Physical Exam Physical Exam: General- oriented x 3, not in distress, speaks in sentences with no effort or accessory muscle use Mild-2-3 small ulcers at the back of the upper palate Nonbleeding Eyes- anicteric Neck- no JVD Lungs- clear breath sounds bilaterally, no rales/wheezes Heart- normal rate, regular rhythm; no murmurs Abdomen- normal bowel sounds, nondistended, soft, nontender Extremities- no pretibial edema, no calf tenderness Neuro- alert, oriented x 3; no gross focal neurologic deficits Skin- warm & dry Results & Data Results & Data Vital Signs (Past 12 Hours) Vital Signs Temp Pulse Pulse Resp BP Pulse Ox O2 Del Method 09/18/23 15:25 37.0 C 84 18 109/71 91 Room Air 09/18/23 11:07 36.4 C L 81 18 105/55 L 91 Room Air 09/18/23 08:00 Room Air 09/18/23 07:30 36.3 C L 89 18 120/79 95 Room Air 09/18/23 06:27 126 H all noted and reviewed including below
[2023-09-18] MEDS ORDERED: HEPARIN SOD 5,000 UNIT/0.5 ML VIAL SQ SCH (21:00)
[2023-09-18] MEDS: WARFARIN SOD 2 MG TAB PO SCH (21:16)
[2023-09-19 07:25] LABS: Basophils # (auto) 0.04 K/uL (0.00-0.20); Basophils % (auto) 0.4 %; Eosinophils # (auto) 0.06 K/uL (0.00-0.50); Eosinophils % (auto) 0.6 %; Hematocrit (blood only) 25.1 % (37.0-47.0); Hemoglobin 7.6 g/dl (12.0-16.0); Immature Granulocytes # (auto) 0.43 K/uL (0.01-0.20); Immature Granulocytes % (auto) 4.4 %; Lymphocytes # (auto) 1.91 K/uL (1.20-3.40); Lymphocytes % (auto) 19.5 %; Mean Corpuscular Hemoglobin 26.6 pg (25.0-34.0); Mean Corpuscular Hgb Conc 30.3 g/dL (32.0-36.0); Mean Corpuscular Volume 87.8 fL (80.0-100.0); Mean Platelet Volume 8.8 fL (9.4-12.4); Monocytes # (auto) 0.51 K/uL (0.11-0.59); Monocytes % (auto) 5.2 %; Neutrophils # (auto) 6.83 K/uL (1.40-6.50); Neutrophils % (auto) 69.9 %; Nucleated RBC # (auto) 0.02 K/uL (0.00-0.12); Nucleated RBC % (auto) 0.2 %; Platelet Count 259 K/uL (130-400); RDW Coefficient of Variation 16.9 % (11.5-14.5); RDW Standard Deviation 52.9 fL (36.4-46.3); Red Blood Count 2.86 M/uL (4.20-5.40); White Blood Count 9.78 K/ul (4.8-10.8)
[2023-09-19 07:39] LABS: INR 1.3 (0.9-1.1); Prothrombin Time 13.8 Seconds (9.0-12.0)
[2023-09-19 07:42] LABS: BUN Creatinine Ratio 24.3 (10-20); Creatinine Clr Calc Pharmacy 54.4 ml/min; Est GFR (African American) 59.6 ml/min; Est GFR (Non-African American) 51.5 ml/min; Potassium 3.8 mmol/L (3.5-5.1)
[2023-09-19 07:50] LABS: Polychromasia 1+
[2023-09-19] MEDS: AMIODARONE 200 MG TAB PO SCH (09:24)
--- NOTE | 2023-09-19 15:04 | Hospitalist Progress Note ---
Date of Service September 19, 2023 Assessment & Plan (1) AMS (altered mental status): Plan: per admitting service notes with addendum: 73 yo F with type 2 diabetes, gout, hyperlipidemia, hypothyroidism, obstructive sleep apnea on CPAP, paroxysmal atrial fibrillation, chronic diastolic CHF, CKD stage III, pulmonary hypertension, obesity, GERD, chronic bilateral low back pain, history of CVA, history of gastric ulcer comes from [facility] because of patient being sleeping more and less interactive. Patient was admitted on July 30, 2023 with UTI and sepsis and right ureteral calculus had adenovirus infection and SAJAN with creatinine of 4.2 and then patient was in septic shock requiring pressors cultures growing VRE, E. coli and Proteus mirabilis in the urine and blood cultures growing E. coli and antibiotics were tapered to IV ampicillin per ID to complete 14-day course and she is s/p right ureteral stent placement. kidney function improved and she was discharged to half-way on August 10, 2023. Patient currently somewhat drowsy. But alert and oriented x 3. States is not ambulated since last 3 weeks. States feeling depressed. Denies any headache. No blurred vision. No earache or runny nose or sore throat. No cough. States appetite is down but swallowing okay. Denies chest pain or shortness of breath. No nausea or vomiting. No abdominal pain. Normal bowel and bladder movements. Initially when she came in her blood pressure was soft systolic blood pressure 90s but improved with the fluids. Altered mental status - mental status now improved Mostly from UTI, bacteremia UTI in the setting of indwelling ureteral stent Hyponatremia Sepsis, POA Metabolic encephalopathy Recently had urine cultures growing Enterococcus faecalis resistant to vancomycin but was sensitive to ampicillin and daptomycin. Urine cultures were also positive for E. coli and Proteus and blood cultures were positive for pansensitive E. coli.Completed 14days of iv ampicillin. Received Zosyn in the ER. Will continue Zosyn and IV Dapto until further cultures are available. Blood cultx - posit. for E.coli Ucultx - E.coli, Lactobacillus Initially was borderline hypotensive improved with the fluids gentle fluids Last admission right nephroureteral stent was placed which is intact on the current CAT scan Urology consulted and discussed with - Pt was scheduled for outpatient procedure for stone treatment and stent exchange on 09/16/23. - Given her positive blood and urine cultures, she will need to be on IV antibiotic for several days prior to intervention. - Ideally if she remains inpatient and is improving on IV antibiotics, we will plan to proceed 09/16/[address] Edwards. ID consulted and discussed with - will obtain boles MRI of spine w/ contrast - nephrology also aware 09/15 currently on Daptomycin + Zosyn IV for stone treatment and ureteral stent exchange tomorrow 09/16 transition to IV Unasyn 09/17 Stable overall Continue IV Unasyn Will need a PICC line Alycia dunlap for palate ulcers Monitor closely next 09/18 Remains stable PICC line placement ordered Continue IV Unasyn R iliacus/iliopsoas abscesses L5-S1 discitis and osteomyelitis shown on MRI of lumbar spine discussed with ID, recommend Ortho Spine and IR consult- no surgery, procedures for now, continue IV abx Acute on chronic hyponatremia Presented with sodium of 118 Her sodium was 128s to 130s last admission Recently on September 01 and September 05 sodium was 124 and 123 Got fluids for low blood pressure Will check urine osmolality, urine sodium, serum osmolality Close monitor of labs Slow correction of sodium Current Na 133 Nephrology consulted to help with slow correction Na 134 Hyperkalemia Potassium 5.5 repeat labs K was 6.4. received iv insulin 10units, amp of d50 and iv calcium gluconate and placed on Lokelma. Nephrology consulted, K now wnl Elevated troponin Troponin 16 mostly demand ischemia Will follow serial exams Obstructive sleep apnea CPAP nightly refused cpap says she was on cpap for last 5-6yrs but not using for last 6 weeks as mask was not fitting. She got new mask but not started using it yet as she had cold symptoms. CKD stage III Presented with creatinine 1.4 seems around baseline stable Diabetes Will hold home p.o. medications Sliding scale and lantus 5units daily for now Will monitor History of paroxysmal atrial fibrillation On amiodarone and metoprolol and Coumadin INR 1.5 Needs adjustment of Coumadin dose Follow PT/INR Looks like she was on 3mg Coumadin daily and her inr was running high and Coumadin dose was reduced. Because of anasarca and hypoalbuminemia liver ultrasound was done at skilled nursing but was negative for cirrhosis per notes from half-way. Can consider novel agents Close monitor -- resume coumadin Chronic diastolic CHF Was on spironolactone and Bumex last admission but seems stopped at [place] for hyponatremia and ? worsening kidney function Seems currently not on diuretics Will monitor for volume overload Nephrology following Gout On allopurinol Depression recently started on Lexapro Hypothyroidism On Synthyroid Hyperlipidemia On statin GERD On omeprazole Hypertension Lisinopril and amlodipine were held at time of discharge last admission on metoprolol Will monitor DVT prophylaxis Coumadin, heparin SC Disposition -pending plan of care discussed with patient all questions answered she is understanding, agreeable, comfortable with the plan of care Admission and Anticipated Discharge Date Admission Date: September 11, 2023 Subjective Follow-up for UTI, bacteremia, discitis, osteomyelitis, etc. Seen resting in bed, comfortable, sitting up, not in distress States that she feels fine overall Mouth sores feeling better Minimal back pain, adequately controlled No other new symptoms Review of Systems Review of Systems: all noted and negative except for above Physical Exam Physical Exam: General- oriented x 3, not in distress, speaks in sentences with no effort or accessory muscle use Eyes- anicteric Neck- no JVD Lungs- clear breath sounds bilaterally, no crackles or wheeze Heart- normal rate, regular rhythm; no murmurs Abdomen- normal bowel sounds, nondistended, soft, No tenderness Extremities- no pretibial edema, no calf tenderness Neuro- alert, oriented x 3; no gross focal neurologic deficits Skin- warm & dry Results & Data Results & Data Vital Signs (Past 12 Hours) Vital Signs Temp Pulse Resp BP Pulse Ox O2 Del Method 09/19/23 11:12 36.7 C 86 18 133/74 93 Room Air 09/19/23 07:14 36.6 C 82 18 116/72 91 Room Air all noted and reviewed including below
--- NOTE | 2023-09-19 16:39 | XRay Report ---
XR chest 1V portable HISTORY: 73 years-old Female Right PICC line placement. Status post placement of a right-sided PICC COMPARISON: 09/11/2023 TECHNIQUE: AP view of the chest FINDINGS: Right-sided PICC is noted with distal tip in expected location of the mid SVC. No pneumothorax. Cardi ac silhouette is enlarged. Pulmonary vascular congestion. A pneumothorax. Probable trace pleural effu sions. Bones appear grossly intact. IMPRESSION: Status post placement of a right-sided PICC. No postprocedural pneumothorax. ACT 112: Negative or not required by law. The above report was generated using voice recognition software. It may contain grammatical, syntax o r spelling errors. Electronically signed by: Balwinder Zimmerman M.D. 09/19/2023 4:37 PM
[2023-09-20 06:14] LABS: Basophils # (auto) 0.05 K/uL (0.00-0.20); Basophils % (auto) 0.5 %; Eosinophils # (auto) 0.08 K/uL (0.00-0.50); Eosinophils % (auto) 0.8 %; Hemoglobin 7.2 g/dl (12.0-16.0); Immature Granulocytes # (auto) 0.46 K/uL (0.01-0.20); Immature Granulocytes % (auto) 4.7 %; Lymphocytes # (auto) 2.08 K/uL (1.20-3.40); Lymphocytes % (auto) 21.4 %; Mean Corpuscular Hemoglobin 27.5 pg (25.0-34.0); Mean Corpuscular Hgb Conc 31.3 g/dL (32.0-36.0); Mean Corpuscular Volume 87.8 fL (80.0-100.0); Mean Platelet Volume 9.3 fL (9.4-12.4); Monocytes # (auto) 0.47 K/uL (0.11-0.59); Monocytes % (auto) 4.8 %; Neutrophils # (auto) 6.59 K/uL (1.40-6.50); Neutrophils % (auto) 67.8 %; Nucleated RBC # (auto) 0.02 K/uL (0.00-0.12); Nucleated RBC % (auto) 0.2 %; Platelet Count 251 K/uL (130-400); RDW Coefficient of Variation 17.3 % (11.5-14.5); RDW Standard Deviation 54.2 fL (36.4-46.3); Red Blood Count 2.62 M/uL (4.20-5.40); White Blood Count 9.73 K/ul (4.8-10.8)
[2023-09-20 06:21] LABS: BUN Creatinine Ratio 20.3 (10-20); Calcium 8.2 mg/dl (8.6-10.3); Creatinine Clr Calc Pharmacy 43.8 ml/min; Est GFR (African American) 45.8 ml/min; Est GFR (Non-African American) 39.6 ml/min; Potassium 3.7 mmol/L (3.5-5.1)
[2023-09-20 06:32] LABS: INR 1.5 (0.9-1.1); Prothrombin Time 15.6 Seconds (9.0-12.0)
[2023-09-20 06:38] LABS: Polychromasia 1+
--- NOTE | 2023-09-20 08:09 | Nephrology Progress Note ---
Date of Service September 20, 2023 Assessment & Plan (1) Chronic hyponatremia: Plan: chronic - eg present > 48 hrs -- hyponatremia improving from 118 at 09/10 presentation to 122 and behaving as prerenal/hypovolemic. no prior hx of this issue. Presented w/ critical hyponatremia but improved appropriately w/ NS then to NS + lasix to 135 today. baseline creatinine 1.1-1.2. challenging to balance stone patient needs (needs massive fluid intake) w/ hyponatremia (fluid limit) -currently no lasix, no IVF, no K supplements -encourage protein intake -will d/c fluid limit >> encourage fluid intake >>>continue strict I/O (2) E coli bacteremia: Plan: w/ E coli and Enterobacter on admission cultures as well as L5-S1 discitis and iliopsoas abscess >> on daptomycin and ampicillin; ? duration. not a candidate for ortho or IR intervention for back. s/p 09/15 stone extraction and stent exchange for bedside stent removal in 3-5 days Admission and Anticipated Discharge Date Admission Date: September 11, 2023 Subjective seen on am rounds. feeling improved though still so much back pain has not been OOB; stent fell out since Review of Systems 2 Review of Systems: All systems reviewed & are unremarkable except as noted in Subjective Physical Exam 2 Constitutional: well developed, well nourished and + morbidly obese; no acute distress Eyes: EOM intact bilaterally ENMT: Ears: no external ear abnormality Nose: no external nose abnormality Mouth: + dry oral mucous membranes Neck: no nuchal rigidity Respiratory: normal respiratory effort Auscultation: + diminished lung sounds Cardiovascular: Rate/Rhythm: regular rate and regular rhythm Heart Sounds: + murmur Extremities: no edema Gastrointestinal (Abdomen): Inspection/Auscultation: normal bowel sounds P ercussion/Palpation: abdomen soft; abdomen nontender Musculoskeletal: Extremities: strength 5/5 throughout Skin: no rashes, warm and dry Psychiatric: Orientation: alert and oriented x 3 Results & Data Vital Signs (Past 12 Hours) Vital Signs Temp Pulse Pulse Resp BP BP Pulse Ox 09/20/23 06:00 36.6 C 83 18 139/78 93 09/20/23 03:31 36.5 C 78 18 137/68 93 09/19/23 23:27 36.6 C 70 18 104/64 93 09/19/23 21:50 73 09/19/23 20:32 85 113/68 O2 Del Method 09/20/23 06:00 Room Air 09/20/23 03:31 Room Air 09/19/23 23:27 Room Air 09/19/23 21:50 09/19/23 20:32 Laboratory Results 09/20/23 05:34 09/20/23 05:34
[2023-09-20] MEDS: SODIUM CHLORIDE 0.9% 250 ML IV ONE (12:28)
--- NOTE | 2023-09-20 14:57 | Hospitalist Progress Note ---
Date of Service September 20, 2023 Assessment & Plan (1) AMS (altered mental status): Plan: per admitting service notes with addendum: 73 yo F with type 2 diabetes, gout, hyperlipidemia, hypothyroidism, obstructive sleep apnea on CPAP, paroxysmal atrial fibrillation, chronic diastolic CHF, CKD stage III, pulmonary hypertension, obesity, GERD, chronic bilateral low back pain, history of CVA, history of gastric ulcer comes from [facility] because of patient being sleeping more and less interactive. Patient was admitted on July 30, 2023 with UTI and sepsis and right ureteral calculus had adenovirus infection and SAJAN with creatinine of 4.2 and then patient was in septic shock requiring pressors cultures growing VRE, E. coli and Proteus mirabilis in the urine and blood cultures growing E. coli and antibiotics were tapered to IV ampicillin per ID to complete 14-day course and she is s/p right ureteral stent placement. kidney function improved and she was discharged to shelter on August 10, 2023. Patient currently somewhat drowsy. But alert and oriented x 3. States is not ambulated since last 3 weeks. States feeling depressed. Denies any headache. No blurred vision. No earache or runny nose or sore throat. No cough. States appetite is down but swallowing okay. Denies chest pain or shortness of breath. No nausea or vomiting. No abdominal pain. Normal bowel and bladder movements. Initially when she came in her blood pressure was soft systolic blood pressure 90s but improved with the fluids. Altered mental status - mental status now improved Mostly from UTI, bacteremia UTI in the setting of indwelling ureteral stent Hyponatremia Sepsis, POA Metabolic encephalopathy Recently had urine cultures growing Enterococcus faecalis resistant to vancomycin but was sensitive to ampicillin and daptomycin. Urine cultures were also positive for E. coli and Proteus and blood cultures were positive for pansensitive E. coli.Completed 14days of iv ampicillin. Received Zosyn in the ER. Will continue Zosyn and IV Dapto until further cultures are available. Blood cultx - posit. for E.coli Ucultx - E.coli, Lactobacillus Initially was borderline hypotensive improved with the fluids gentle fluids Last admission right nephroureteral stent was placed which is intact on the current CAT scan Urology consulted and discussed with - Pt was scheduled for outpatient procedure for stone treatment and stent exchange on 09/16/23. - Given her positive blood and urine cultures, she will need to be on IV antibiotic for several days prior to intervention. - Ideally if she remains inpatient and is improving on IV antibiotics, we will plan to proceed 09/16/[address] Edwards. ID consulted and discussed with - will obtain boles MRI of spine w/ contrast - nephrology also aware 09/15 currently on Daptomycin + Zosyn IV for stone treatment and ureteral stent exchange tomorrow 09/16 transition to IV Unasyn 09/17 Stable overall Continue IV Unasyn Will need a PICC line Alycia dunlap for palate ulcers Monitor closely next 09/18 Remains stable PICC line placement ordered Continue IV Unasyn 09/19 Stable overall PICC line in place Will need total of 6 weeks of IV Unasyn R iliacus/iliopsoas abscesses L5-S1 discitis and osteomyelitis shown on MRI of lumbar spine discussed with ID, recommend Ortho Spine and IR consult- no surgery, procedures for now, continue IV abx Will order repeat MRI today for follow-up Acute on chronic hyponatremia Presented with sodium of 118 Her sodium was 128s to 130s last admission Recently on September 01 and September 05 sodium was 124 and 123 Got fluids for low blood pressure Will check urine osmolality, urine sodium, serum osmolality Close monitor of labs Slow correction of sodium Current Na 133 Nephrology consulted to help with slow correction Na 135 Hyperkalemia Potassium 5.5 repeat labs K was 6.4. received iv insulin 10units, amp of d50 and iv calcium gluconate and placed on Lokelma. Nephrology consulted, K now wnl Elevated troponin Troponin 16 mostly demand ischemia Will follow serial exams Obstructive sleep apnea CPAP nightly refused cpap says she was on cpap for last 5-6yrs but not using for last 6 weeks as mask was not fitting. She got new mask but not started using it yet as she had cold symptoms. CKD stage III crea 1.3 discussed with Nephro Given NSS to 50 cc in light of marginal blood pressure Encouraged to drink more fluids Will monitor Diabetes Will hold home p.o. medications Sliding scale and lantus 5units daily for now Will monitor History of paroxysmal atrial fibrillation On amiodarone and metoprolol and Coumadin INR 1.5 Needs adjustment of Coumadin dose Follow PT/INR Looks like she was on 3mg Coumadin daily and her inr was running high and Coumadin dose was reduced. Because of anasarca and hypoalbuminemia liver ultrasound was done at [facility] but was negative for cirrhosis per notes from shelter. Can consider novel agents 09/19 INR 1.5 Continue Coumadin 2 mg p.o. daily Chronic diastolic CHF Was on spironolactone and Bumex last admission but seems stopped at [place] for hyponatremia and ? worsening kidney function Seems currently not on diuretics Will monitor for volume overload Nephrology following Gout On allopurinol Depression recently started on Lexapro Hypothyroidism On Synthyroid Hyperlipidemia On statin GERD On omeprazole Hypertension Lisinopril and amlodipine were held at time of discharge last admission on metoprolol BP on the lower side today IV fluids given Monitor closely DVT prophylaxis Coumadin And Lovenox 40 mg subcutaneous twice daily Disposition Anticipate transition to acute rehab when medically stable plan of care discussed with patient all questions answered she is understanding, agreeable, comfortable with the plan of care Admission and Anticipated Discharge Date Admission Date: September 11, 2023 Subjective Follow-up UTI, bacteremia, discitis, osteomyelitis, iliopsoas abscess, etc. Seen sitting up in bed, comfortable, not in distress In good spirits States she feels fine overall Has mild low back pain No other new symptoms Review of Systems Review of Systems: all noted and negative except for above Physical Exam Physical Exam: General- oriented x 3, not in distress, speaks in sentences with no effort or accessory muscle use Eyes- anicteric Neck- no JVD Lungs- clear breath sounds bilaterally Heart- normal rate, regular rhythm; no murmurs Abdomen- normal bowel sounds, nondistended, soft, nontender Extremities- no pretibial edema, no calf tenderness PICC line on the right arm Neuro- alert, oriented x 3; no gross focal neurologic deficits Skin- warm & dry Results & Data Results & Data Vital Signs (Past 12 Hours) Vital Signs Temp Pulse Pulse Resp BP BP Pulse Ox 09/20/23 11:15 36.4 C L 81 18 93/56 L 94 09/20/23 07:00 82 09/20/23 06:00 36.6 C 83 18 139/78 93 09/20/23 03:31 36.5 C 78 18 137/68 93 O2 Del Method 09/20/23 11:15 Room Air 09/20/23 07:00 09/20/23 06:00 Room Air 09/20/23 03:31 Room Air all noted and reviewed including below
[2023-09-21 07:07] LABS: INR 1.8 (0.9-1.1); Prothrombin Time 18.2 Seconds (9.0-12.0)
[2023-09-21 07:13] LABS: BUN Creatinine Ratio 17.3 (10-20); Calcium 8.1 mg/dl (8.6-10.3); Creatinine Clr Calc Pharmacy 34.7 ml/min; Est GFR (African American) 34.6 ml/min; Est GFR (Non-African American) 29.8 ml/min; Potassium 3.9 mmol/L (3.5-5.1)
[2023-09-21 07:20] LABS: Hematocrit (blood only) 22.8 % (37.0-47.0); Mean Corpuscular Hemoglobin 27.1 pg (25.0-34.0); Mean Corpuscular Hgb Conc 30.7 g/dL (32.0-36.0); Mean Corpuscular Volume 88.4 fL (80.0-100.0); Mean Platelet Volume 9.9 fL (9.4-12.4); Nucleated RBC # (auto) 0.02 K/uL (0.00-0.12); Nucleated RBC % (auto) 0.3 %; Platelet Count 247 K/uL (130-400); RDW Coefficient of Variation 18.1 % (11.5-14.5); RDW Standard Deviation 55.3 fL (36.4-46.3); Red Blood Count 2.58 M/uL (4.20-5.40)
[2023-09-21 07:27] LABS: Basophils # (auto) 0.04 K/uL (0.00-0.20); Basophils % (auto) 0.5 %; Eosinophils # (auto) 0.08 K/uL (0.00-0.50); Immature Granulocytes # (auto) 0.36 K/uL (0.01-0.20); Immature Granulocytes % (auto) 4.6 %; Lymphocytes # (auto) 2.12 K/uL (1.20-3.40); Lymphocytes % (auto) 26.8 %; Monocytes # (auto) 0.52 K/uL (0.11-0.59); Monocytes % (auto) 6.6 %; Neutrophils # (auto) 4.78 K/uL (1.40-6.50); Neutrophils % (auto) 60.5 %
[2023-09-21] MEDS ORDERED: SODIUM CHLORIDE 0.9% 250 ML IV PRN (10:15)
--- NOTE | 2023-09-21 10:26 | Nephrology Progress Note ---
Date of Service September 21, 2023 Assessment & Plan (1) SAJAN (acute kidney injury): Plan: creat today w/ uptick to 1.7. baseline creatinine 1.1-1.2. challenging to balance stone patient needs (needs massive fluid intake) w/ hyponatremia (fluid limit). Ddx includes ATN, AIN; less likely recurrent obstruction; prerenal also on the differential. Typical tools for evaluating volume status not available >> can't check orthostatics, I/O not complete. >>she did have about 14 hours of hypotension yesterday >> prerenal high on differential -repeat UA ordered > needs str cath to collect -check CXR (she's over 10L + on the admission and coughed some yesterday); CXR w/ mild plm edema however given no hypoxia and hypotension will give 500 mL normosol if bp drops again and observe given plm edema and now normotension >low threshold for repeat blood cxs or/and TTE ( 01/2023 TTE > EF 55%, mild CLVH, severe L atrial enlargment w/ calcified aortic valve and moderate ; worse than study one year back; now w/ bacteremia recently adn new hypotension) -given hx of hydronephrosis and no current stent, recommend renal u/s or CT a/p; defer to Dr Arita to order and did discuss Care reviewed multiple times through day and work up developed, reviewed w/ Dr Arita regarding next steps in care; we are in agreement. (2) Chronic hyponatremia: Plan: chronic - eg present > 48 hrs -- hyponatremia improving from 118 at 09/10 presentation to 122 and behaving as prerenal/hypovolemic. no prior hx of this issue. Presented w/ critical hyponatremia but improved appropriately w/ NS then to NS + lasix to 136 today. -currently no lasix, no K supplements; will give normosol as above -encourage protein intake -will d/c fluid limit >> encourage fluid intake >>>continue strict I/O (3) E coli bacteremia: Plan: w/ E coli and Enterobacter on admission cultures as well as L5-S1 discitis and iliopsoas abscess >> on daptomycin and ampicillin; ? duration. not a candidate for ortho or IR intervention for back. s/p 09/15 stone extraction and stent exchange for bedside stent removal but stent came out on it's own Admission and Anticipated Discharge Date Admission Date: September 11, 2023 Subjective SAJAN today after several hours of lower BP (sbp 90s ) yesterday, ongoing today; back pain unchanged/ no worse; no sob, no n/v; hgb dropped and no source of bleeding; sin came out Review of Systems 2 Review of Systems: All systems reviewed & are unremarkable except as noted in Subjective Physical Exam 2 Constitutional: well developed, well nourished, + morbidly obese, + frail appearing and cooperative; no acute distress Eyes: EOM intact bilaterally ENMT: Ears: no external ear abnormality Nose: no external nose abnormality Mouth: + dry oral mucous membranes Neck: no nuchal rigidity Respiratory: normal respiratory effort Auscultation: + diminished lung sounds Cardiovascular: Rate/Rhythm: regular rate and regular rhythm Heart Sounds: + murmur Extremities: no edema Gastrointestinal (Abdomen): Inspection/Auscultation: normal bowel sounds P ercussion/Palpation: abdomen soft; abdomen nontender Musculoskeletal: Extremities: strength 5/5 throughout Skin: no rashes, warm and dry Psychiatric: Orientation: alert and oriented x 3 Results & Data Vital Signs (Past 12 Hours) Vital Signs Temp Pulse Pulse Resp BP Pulse Ox O2 Del Method 09/21/23 08:28 84 09/21/23 07:08 36.8 C 79 18 112/65 95 Room Air 09/21/23 02:53 36.6 C 85 20 92/58 L 93 Room Air 09/20/23 23:00 Room Air 09/20/23 22:33 36.7 C 97 H 20 94/60 L 92 Room Air Laboratory Results 09/21/23 06:13 09/21/23 06:13
[2023-09-21] MEDS: ACETAMINOPHEN 325 MG TAB PO ONE (12:05)
--- NOTE | 2023-09-21 12:13 | XRay Report ---
XR chest 1V portable CLINICAL HISTORY: f/u volume status TECHNIQUE: Single frontal radiograph of the chest was obtained. Comparison: Comparison is made to chest radiograph 09/19/2023 FINDINGS: Lines and tubes are stable. Cardiomegaly is noted. Airspace opacities are seen in the right upper lob e and left lower lobe, unchanged. Prominence of the pulmonary vasculature is seen. No evidence of ple ural effusion or pneumothorax. IMPRESSION: 1. Cardiomegaly and mild pulmonary edema. 2. Airspace opacities are essentially unchanged from prior exam. ACT 112: Negative or not required by law. Electronically signed by: Tiburcio Casey M.D. 09/21/2023 12:11 PM
--- NOTE | 2023-09-21 13:45 | Urology Progress Note ---
Date of Service September 21, 2023 Assessment & Plan (1) Complicated UTI (urinary tract infection): (2) Kidney stones: Plan: Patient is POD #5 s/p Cystoscopy with right Ureteronephroscopy, Retrograde Pyelogram, Ureteral Dilation, Laser Lithotripsy, Stone Basket Extraction, and Exchange of Stent Catheter Plan was to remove tethered ureteral stent yesterday or today Her stent came out yesterday Creatinine increased to 1.68 today, WBC 7.9, hemoglobin 7.0 (currently receiving 1 unit of PRBCs) Urine and blood cultures on 09/10 with E. coli, repeat blood cultures 09/11 with no growth x 5 days Currently on IV Unasyn per ID Continue with supportive care, antibiotic therapy and medical management per hospital medicine service Nephrology following for SAJAN and hyponatremia She is scheduled for [facility] Urology follow-ups in place will sign off, contact our service with any additional questions or concerns Admission and Anticipated Discharge Date Admission Date: September 11, 2023 Subjective Came to revisit patient to remove tethered stent Patient seen at bedside this afternoon She is awake and resting in bed She reports her tethered stent came out yesterday afternoon Denies any significant pain Currently receiving blood transfusion Denies fever or chills Review of Systems Constitutional: as per Subjective / HPI Genitourinary: as per Subjective / HPI Physical Exam Constitutional: + obese; no acute distress Respiratory: no respiratory distress and no labored breathing Neurologic: awake Psychiatric: Orientation: alert, oriented x 3 and cooperative Results & Data Vital Signs (Past 12 Hours) Vital Signs Temp Pulse Pulse Resp BP BP BP 09/21/23 13:27 36.4 C L 69 16 97/46 L 09/21/23 13:03 36.4 C L 75 16 96/62 L 09/21/23 11:26 36.5 C 66 18 133/69 09/21/23 08:28 84 09/21/23 08:00 09/21/23 07:08 36.8 C 79 18 112/65 09/21/23 02:53 36.6 C 85 20 92/58 L Pulse Ox O2 Del Method 09/21/23 13:27 09/21/23 13:03 94 09/21/23 11:26 95 Room Air 09/21/23 08:28 09/21/23 08:00 Room Air 09/21/23 07:08 95 Room Air 09/21/23 02:53 93 Room Air PG Care Time/CCT Total # of Minutes Spent Total Time Spent with Patient: Total time spent is greater than 50% in coordination of care (as documented) at patient's floor/unit and/or counseling patient: Coding Level of Care Code 06654 SUB INP/OBS CARE 05/27MIN Diagnoses Complicated UTI (urinary tract infection) N39.0 Kidney stones N20.0
[2023-09-21 17:24] LABS: Appearance Urine Cloudy (Clear); Bacteria Urine Automated None Seen (None Seen); Bilirubin Urine Negative (Negative); Blood Urine 1+ (Negative); Color Urine Yellow; Glucose Urine UA Negative (Negative); Ketones Urine Trace (Negative); Leukocyte Esterase Urine Trace (Negative); Nitrite Urine Negative (Negative); Protein Urine 1+ (Negative); Specific Gravity Urine 1.025 (1.000-1.030); Urobilinogen Urine Negative (Negative)
[2023-09-21 17:38] LABS: Granular Casts Urine P /lpf (None Prsent)
--- NOTE | 2023-09-21 17:52 | Hospitalist Progress Note ---
Date of Service September 21, 2023 Assessment & Plan (1) AMS (altered mental status): Plan: per admitting service notes with addendum: 73 yo F with type 2 diabetes, gout, hyperlipidemia, hypothyroidism, obstructive sleep apnea on CPAP, paroxysmal atrial fibrillation, chronic diastolic CHF, CKD stage III, pulmonary hypertension, obesity, GERD, chronic bilateral low back pain, history of CVA, history of gastric ulcer comes from [facility] because of patient being sleeping more and less interactive. Patient was admitted on July 30, 2023 with UTI and sepsis and right ureteral calculus had adenovirus infection and SAJAN with creatinine of 4.2 and then patient was in septic shock requiring pressors cultures growing VRE, E. coli and Proteus mirabilis in the urine and blood cultures growing E. coli and antibiotics were tapered to IV ampicillin per ID to complete 14-day course and she is s/p right ureteral stent placement. kidney function improved and [facility]. Patient currently somewhat drowsy. But alert and oriented x 3. States is not ambulated since last 3 weeks. States feeling depressed. Denies any headache. No blurred vision. No earache or runny nose or sore throat. No cough. States appetite is down but swallowing okay. Denies chest pain or shortness of breath. No nausea or vomiting. No abdominal pain. Normal bowel and bladder movements. Initially when she came in her blood pressure was soft systolic blood pressure 90s but improved with the fluids. Acute metabolic encephalopathy, resolved Secondary to underlying E. coli UTI, bacteremia In the setting of indwelling ureteral stent, nephrolithiasis Hyponatremia Sepsis, POA Recently had urine cultures growing Enterococcus faecalis resistant to vancomycin but was sensitive to ampicillin and daptomycin. Urine cultures were also positive for E. coli and Proteus and blood cultures were positive for pansensitive E. coli.Completed 14days of iv ampicillin. Received Zosyn in the ER. Will continue Zosyn and IV Dapto until further cultures are available. Blood cultx - posit. for E.coli Ucultx - E.coli, Lactobacillus Urology consulted Status post stone treatment and stent exchange on 09/16/23 Patient's stent inadvertently dislodged over the weekend ID consulted Currently on IV Unasyn x 6 weeks total in light of discitis, osteomyelitis, iliopsoas abscess R iliacus/iliopsoas abscesses L5-S1 discitis and osteomyelitis Patient reporting back pain MRI of lumbar spine: 1. Findings consistent with L5-S1 discitis and osteomyelitis. Two associated right iliacus/iliopsoas fluid collections consistent with abscesses, partially imaged on this exam. The larger abscess measures at least 2 x 2 cm. Edema extends into the bilateral facet joints. This may represent extension of the infectious process or facet arthrosis. No well-defined epidural fluid collection to suggest epidural abscess although evaluation compromised given lack of pos tcontrast imaging. Small 1 cm left paravertebral abscess. This finding will be called/faxed to ordering provider at time of dictation. 2. Severe multilevel degenerative disc disease and facet arthrosis within the lumbar spine, as described above. Multilevel central canal and neural foraminal stenosis. 3. Moderate lumbar spine levoscoliosis. 4. Incomplete lumbar spine MRI, as detailed above. Short-term follow-up MRI with and without contrast could be obtained to exclude interval development of an epidural abscess. No definite epidural abscess on this exam. discussed with ID, recommend Ortho Spine and IR consult- no surgery, procedures for now, continue IV abx ID recommending 6 weeks total of IV Unasyn, PICC line placed Will order CT lumbar spine tomorrow for follow-up CKD stage III crea 1.3--> 1.6 discussed with Nephro Chest x-ray showing mild pulmonary edema Can give 500 cc of normal so if patient becomes hypotensive Acute on chronic hyponatremia Presented with sodium of 118 Nephrology consulted Given IV NSS and Lasix Resolved Hyperkalemia Potassium 5.5 Nephrology consulted, K now wnl Elevated troponin Troponin 16 mostly demand ischemia Obstructive sleep apnea CPAP nightly refused cpap says she was on cpap for last 5-6yrs but not using for last 6 weeks as mask was not fitting. She got new mask but not started using it yet as she had cold symptoms. Diabetes Will hold home p.o. medications Sliding scale and lantus 5units daily for now Will monitor History of paroxysmal atrial fibrillation On amiodarone and metoprolol and Coumadin 09/20 INR 1.8 Continue Coumadin 2 mg p.o. daily INR daily Chronic diastolic CHF Was on spironolactone and Bumex last admission but seems stopped at [place] for hyponatremia and ? worsening kidney function CXR: mild pulmonary edema Nephrology following Gout On allopurinol Depression recently started on Lexapro Hypothyroidism On Synthyroid Hyperlipidemia On statin GERD On omeprazole Hypertension Lisinopril and amlodipine were held at time of discharge last admission on metoprolol BP on the lower side Per nephro, can give 500 cc of normal so if patient becomes hypotensive DVT prophylaxis Coumadin And Lovenox 40 mg subcutaneous twice daily until INR therapeutic Disposition Anticipate transition to acute rehab when medically stable plan of care discussed with patient all questions answered she is understanding, agreeable, comfortable with the plan of care Admission and Anticipated Discharge Date Admission Date: September 11, 2023 Subjective Follow-up for E. coli UTI, bacteremia, discitis, iliopsoas abscess, etc. Seen sitting up in bed, comfortable, not in distress States she feels fine overall Minimal back discomfort Otherwise denies chest pain, shortness of breath, palpitations, dizziness No other new symptoms Review of Systems Review of Systems: all noted and negative except for above Physical Exam Physical Exam: General- oriented x 3, not in distress, speaks in sentences with no effort or accessory muscle use Eyes- anicteric Neck- no JVD Lungs- clear breath sounds bilaterally, no rales/wheezes Heart- normal rate, regular rhythm; no murmurs Abdomen- normal bowel sounds, nondistended, soft, nontender Extremities- no pretibial edema, no calf tenderness Neuro- alert, oriented x 3; no gross focal neurologic deficits Skin- warm & dry Results & Data Results & Data Vital Signs (Past 12 Hours) Vital Signs Temp Pulse Pulse Resp BP BP BP 09/21/23 16:07 63 09/21/23 16:03 36.4 C L 82 16 128/68 09/21/23 14:12 36.6 C 82 18 134/74 09/21/23 13:42 36.4 C L 75 18 122/71 09/21/23 13:27 36.4 C L 69 16 97/46 L 09/21/23 13:03 36.4 C L 75 16 96/62 L 09/21/23 11:26 36.5 C 66 18 133/69 09/21/23 08:28 84 09/21/23 08:00 09/21/23 07:08 36.8 C 79 18 112/65 Pulse Ox O2 Del Method 09/21/23 16:07 09/21/23 16:03 09/21/23 14:12 09/21/23 13:42 09/21/23 13:27 09/21/23 13:03 94 09/21/23 11:26 95 Room Air 09/21/23 08:28 09/21/23 08:00 Room Air 09/21/23 07:08 95 Room Air all noted and reviewed including below
[2023-09-22 06:42] LABS: Calcium 8.3 mg/dl (8.6-10.3); Creatinine Clr Calc Pharmacy 32.4 ml/min; Est GFR (African American) 31.4 ml/min; Est GFR (Non-African American) 27.1 ml/min; Potassium 4.3 mmol/L (3.5-5.1)
[2023-09-22 06:57] LABS: INR 1.7 (0.9-1.1)
[2023-09-22 07:08] LABS: Folate (Folic Acid),Ser orPlas 13.26 ng/ml (>5.38)
[2023-09-22 07:57] LABS: Basophils # (auto) 0.06 K/uL (0.00-0.20); Basophils % (auto) 0.7 %; Eosinophils # (auto) 0.09 K/uL (0.00-0.50); Eosinophils % (auto) 1.1 %; Hematocrit (blood only) 26.2 % (37.0-47.0); Hemoglobin 8.1 g/dl (12.0-16.0); Immature Granulocytes # (auto) 0.39 K/uL (0.01-0.20); Immature Granulocytes % (auto) 4.7 %; Lymphocytes # (auto) 2.34 K/uL (1.20-3.40); Lymphocytes % (auto) 28.4 %; Mean Corpuscular Hemoglobin 27.2 pg (25.0-34.0); Mean Corpuscular Hgb Conc 30.9 g/dL (32.0-36.0); Mean Corpuscular Volume 87.9 fL (80.0-100.0); Mean Platelet Volume 9.6 fL (9.4-12.4); Monocytes # (auto) 0.54 K/uL (0.11-0.59); Monocytes % (auto) 6.5 %; Neutrophils # (auto) 4.83 K/uL (1.40-6.50); Neutrophils % (auto) 58.6 %; Platelet Count 247 K/uL (130-400); RDW Coefficient of Variation 17.8 % (11.5-14.5); RDW Standard Deviation 54.9 fL (36.4-46.3); Red Blood Count 2.98 M/uL (4.20-5.40); White Blood Count 8.25 K/ul (4.8-10.8)
--- NOTE | 2023-09-22 08:12 | Nephrology Progress Note ---
Date of Service September 22, 2023 Assessment & Plan (1) SAJAN (acute kidney injury): Plan: creat today w/ ongoing but slower uptick to 1.8. Slightly worse stage I nonoliguric acute kidney injury. Baseline creatinine 1.1-1.2. challenging to balance stone patient needs (needs massive fluid intake) w/ hyponatremia (fluid limit). Ddx includes ATN, AIN; less likely recurrent obstruction; prerenal also on the differential. Typical tools for evaluating volume status not available >> can't check orthostatics, I/O not complete. 01/2023 TTE > EF 55%, mild CLVH, severe L atrial enlargment w/ calcified aortic valve and moderate ; worse than study one year back >>she did have about 14 hours of hypotension 09/19, improved yesterday >> with SAJAN on 09/20. prerenal high on differential. 09/20 UA remarkable for concentrated urine w/1+ protein and blood, ketones noted; inflammation noted and some epithelial cells but no bacteria. CXR 09/20 w/ mild plm edema. BP improved w/ packed red cells and has been been maintained in the wake of transfusion. Follow-up pending ultrasound report >> unremarkable -give 500 mL Normosol if SBP drops below 110 consistently today (2) Chronic hyponatremia: Plan: chronic - eg present > 48 hrs -- hyponatremia improving from 118 at 09/10 presentation to 122 and behaving as prerenal/hypovolemic. no prior hx of this issue. Presented w/ critical hyponatremia but improved appropriately w/ NS then to NS + lasix to 135 today which has decreased slightly but remains acceptable. -currently no lasix, no K supplements; will give normosol as above -encourage protein intake -will d/c fluid limit >> encourage fluid intake >>>continue strict I/O (3) E coli bacteremia: Plan: w/ E coli and Enterobacter on admission cultures as well as L5-S1 discitis and iliopsoas abscess >> on daptomycin and ampicillin; ? duration. not a candidate for ortho or IR intervention for back. s/p 09/15 stone extraction and stent exchange for bedside stent removal but stent came out on it's own >had L spine CT 09/21 > no change in L5-S1 discitis/OM and 1.1 cm paravertebral abscess Admission and Anticipated Discharge Date Admission Date: September 11, 2023 Subjective Systolic blood pressures in the 1 teens and 120s consistently past 24 hours and no IV fluid given though she did receive packed red cells yesterday; was OOB for PT briefly today and had lots of back pain, fatigue; ? if she is getting some early edema Review of Systems 2 Review of Systems: All systems reviewed & are unremarkable except as noted in Subjective Physical Exam 2 Constitutional: well developed, well nourished, + morbidly obese, + frail appearing and cooperative; no acute distress Eyes: EOM intact bilaterally ENMT: Ears: no external ear abnormality Nose: no external nose abnormality Mouth: + dry oral mucous membranes Neck: no nuchal rigidity Respiratory: normal respiratory effort Auscultation: + diminished lung sounds Cardiovascular: Rate/Rhythm: regular rate and regular rhythm Heart Sounds: + murmur Extremities: + edema (trace BLE indurated) Gastrointestinal (Abdomen): Inspection/Auscultation: normal bowel sounds P ercussion/Palpation: abdomen soft; abdomen nontender Musculoskeletal: Extremities: strength 5/5 throughout Skin: no rashes, warm and dry Psychiatric: Orientation: alert and oriented x 3 Results & Data Vital Signs (Past 12 Hours) Vital Signs Temp Pulse Pulse Resp BP BP Pulse Ox 09/22/23 07:42 81 09/22/23 07:01 36.4 C L 71 18 119/72 96 09/22/23 03:04 36.7 C 84 16 120/72 96 09/21/23 23:26 36.6 C 87 20 138/73 93 O2 Del Method 09/22/23 07:42 09/22/23 07:01 Room Air 09/22/23 03:04 Room Air 09/21/23 23:26 Room Air Laboratory Results 09/22/23 05:53 09/22/23 05:50
--- NOTE | 2023-09-22 11:12 | CT Scan Report ---
CT OF THE LUMBAR SPINE CLINICAL HISTORY: ff up discitis, iliopsoas abscess COMPARISON STUDY: CT of the abdomen and pelvis September 11, 2023. Lumbar spine MRI September 14, 2023. TECHNIQUE: Helical axial images of the lumbar spine were obtained. Sagittal and coronal reconstruct ions were viewed. Automated exposure control was utilized for the study. A dose lowering technique was utilized adhering to the principles of ALARA. FINDINGS: For purposes of numbering on this exam, the L5-S1 disc space is assigned to axial image 306 of 382. Widening of the L5-S1 disc space is similar to prior CT and MRI. Erosion of the inferior end plate of L5 and superior endplate of S1 is also unchanged. The findings represent discitis/osteomyeli tis at the L5-S1 level. A small left anterior paravertebral fluid collection measuring 1.1 cm on imag e 286 of 382 is similar to prior MRI and CT. Inflammation anterior to the right SI joint is again not ed, related to discitis and osteomyelitis. The previously described right iliopsoas/iliacus fluid col lections are partially imaged on this exam. These are suboptimally assessed on unenhanced study. Thes e measure up to 2.3 cm. Visualized portions are similar to prior CT and MRI. No new sites of inflamma tion are present. Left renal calculi are incidentally noted No acute lumbar spine fractures are prese nt. Severe multilevel disc space narrowing is again noted with severe facet arthrosis. The central ca nal and neural foramen are suboptimally assessed given CT technique. Sensitivity for detection of epi dural abscess is significantly diminished on this exam. IMPRESSION: 1. Findings consistent L5-S1 discitis/osteomyelitis, similar in appearance to CT of September 11, 2023 and MRI of September 14, 2023. Decreased sensitivity for detection of epidural abscess given CT technique. No s ignificant change in a small left anterior paravertebral abscess measuring 1.1 cm. Previously describ ed right iliopsoas/iliacus abscesses are partially imaged on this exam but visualized portions are si milar to prior CT and MRI. 2. No acute fractures within the lumbar spine. Severe multilevel degenerative changes within the lumb ar spine. 3. Moderate lumbar spine levoscoliosis. ACT 112: Negative or not required by law. Electronically signed by: Gui Berumen M.D. 09/22/2023 11:10 AM
--- NOTE | 2023-09-22 14:24 | Hospitalist Progress Note ---
Date of Service September 22, 2023 Assessment & Plan (1) AMS (altered mental status): Plan: 73 yo F with type 2 diabetes, gout, hyperlipidemia, hypothyroidism, obstructive sleep apnea on CPAP, paroxysmal atrial fibrillation, chronic diastolic CHF, CKD stage III, pulmonary hypertension, obesity, GERD, chronic bilateral low back pain, history of CVA, history of gastric ulcer comes from [facility] because of patient being sleeping more and less interactive. Patient was admitted on July 30, 2023 with UTI and sepsis and right ureteral calculus had adenovirus infection and SAJAN with creatinine of 4.2 and then patient was in septic shock requiring pressors cultures growing VRE, E. coli and Proteus mirabilis in the urine and blood cultures growing E. coli and antibiotics were tapered to IV ampicillin per ID to complete 14-day course and she is s/p right ureteral stent placement. kidney function improved and she was discharged to longterm on August 10, 2023. Acute metabolic encephalopathy, resolved Secondary to underlying E. coli UTI, bacteremia In the setting of indwelling ureteral stent, nephrolithiasis Sepsis, POA R iliacus/iliopsoas abscesses L5-S1 discitis and osteomyelitis Status post stone treatment and stent exchange on 09/16/23 Blood cultures from 09/10positive for E. coli Urine culture from 09/10E. coli, lactobacillus MRI done for the back pain from September 14, 2023 showed L5-S1 discitis and osteomyelitis, 2 associated iliac us and iliopsoas fluid collection consistent with abscess. Lumbar CT repeated on September 22, 2023 did not show any significant change compared to MRI from September 14, 2023 Previous hospitalist discussed with infectious disease; they recommend IV Unasyn for 6 weeks in light of discitis, osteomyelitis and iliopsoas abscess SAJAN on CKD stage III Creatinine up trended from 1.3-1.8 Likely secondary to hypotensive episode Nephrology on board; can you bolus as necessary if hypotensive Blood pressure overall improved BMP daily Avoid nephrotoxic agent Acute on chronic hyponatremia Presented with sodium of 118 Nephrology was on board; was given IV fluids and Lasix. Sodium improved to 135 Hyperkalemia Potassium 5.5 Nephrology consulted, K now wnl Elevated troponin Troponin 16 mostly demand ischemia Obstructive sleep apnea CPAP nightly refused cpap says she was on cpap for last 5-6yrs but not using for last 6 weeks as mask was not fitting. She got new mask but not started using it yet as she had cold symptoms. Diabetes Will hold home p.o. medications Sliding scale and lantus 5units daily for now Will monitor History of paroxysmal atrial fibrillation On amiodarone and metoprolol and Coumadin Continue Coumadin 2 mg p.o. daily INR daily Chronic diastolic CHF Was on spironolactone and Bumex last admission but seems stopped at [place] for hyponatremia and ? worsening kidney function CXR: mild pulmonary edema Nephrology following Gout On allopurinol Depression recently started on Lexapro Hypothyroidism On Synthyroid Hyperlipidemia On statin GERD On omeprazole Hypertension Lisinopril and amlodipine were held at time of discharge last admission on metoprolol DVT prophylaxis Coumadin And Lovenox 40 mg subcutaneous twice daily until INR therapeutic Disposition Anticipate transition to acute rehab when medically stable Time spent evaluating patient, direct bedside care, chart review, placing orders, interpretation of diagnostic studies, discussion with consultants, patient, and family members, as well as other required patient management activities is 60 minutes Please note the above document was generated using voice recognition software. It may contain grammatical, syntax or spelling errors. Any formal questions or concerns about the content, text or information contained within the body of this dictation should be directly addressed to the provider for clarification Admission and Anticipated Discharge Date Admission Date: September 11, 2023 Subjective Patient seen and examined at bedside. She is lying in the bed comfortably; not in any distress. No significant events overnight Blood pressure improved Review of Systems Review of Systems: All systems reviewed & are unremarkable except as noted in Subjective Physical Exam Physical Exam: General- oriented x 3, not in distress, speaks in sentences with no effort or accessory muscle use Eyes- anicteric Neck- no JVD Lungs- clear breath sounds bilaterally, no rales/wheezes Heart- normal rate, regular rhythm; no murmurs Abdomen- normal bowel sounds, nondistended, soft, nontender Extremities- no pretibial edema, no calf tenderness. Redness in bilateral lower extremity Neuro- alert, oriented x 3; no gross focal neurologic deficits Skin- warm & dry Results & Data Results & Data Vital Signs (Past 12 Hours) Vital Signs Temp Pulse Pulse Resp BP BP Pulse Ox 09/22/23 11:19 36.4 C L 74 18 135/80 95 09/22/23 10:54 09/22/23 07:42 81 09/22/23 07:01 36.4 C L 71 18 119/72 96 09/22/23 03:04 36.7 C 84 16 120/72 96 O2 Del Method 09/22/23 11:19 Room Air 09/22/23 10:54 Room Air 09/22/23 07:42 09/22/23 07:01 Room Air 09/22/23 03:04 Room Air
--- NOTE | 2023-09-22 15:26 | Ultrasound Report ---
US renal/blad retro comp CLINICAL HISTORY: ACUTE KIDNEY INJURY TECHNIQUE: Multiple sonographic real-time images of the kidneys and bladder were obtained. COMPARISON: None available at the time of this dictation. FINDINGS: The right kidney measures 10.6 cm in length, and the left kidney measures 13.2 cm in length. The right kidney is normal in size, contour, cortical thickness, and echogenicity. No hydronephrosis is identified. No renal lesion is identified. The left kidney is normal in size, contour, cortical thickness and echogenicity. No hydronephrosis i s identified. A cyst is noted measuring 1.7 cm. The bladder is underdistended limiting visualization. IMPRESSION: Unremarkable renal ultrasound. ACT 112: Negative or not required by law. Electronically signed by: Tiburcio Casey M.D. 09/22/2023 3:25 PM
[2023-09-23 06:10] LABS: Basophils # (auto) 0.06 K/uL (0.00-0.20); Basophils % (auto) 0.9 %; Eosinophils # (auto) 0.09 K/uL (0.00-0.50); Eosinophils % (auto) 1.3 %; Hematocrit (blood only) 25.6 % (37.0-47.0); Hemoglobin 7.8 g/dl (12.0-16.0); Immature Granulocytes # (auto) 0.29 K/uL (0.01-0.20); Immature Granulocytes % (auto) 4.2 %; Lymphocytes # (auto) 1.81 K/uL (1.20-3.40); Lymphocytes % (auto) 26.5 %; Mean Corpuscular Hemoglobin 26.8 pg (25.0-34.0); Mean Corpuscular Hgb Conc 30.5 g/dL (32.0-36.0); Mean Platelet Volume 9.5 fL (9.4-12.4); Monocytes # (auto) 0.45 K/uL (0.11-0.59); Monocytes % (auto) 6.6 %; Neutrophils # (auto) 4.13 K/uL (1.40-6.50); Neutrophils % (auto) 60.5 %; Platelet Count 218 K/uL (130-400); RDW Coefficient of Variation 17.5 % (11.5-14.5); Red Blood Count 2.91 M/uL (4.20-5.40); White Blood Count 6.83 K/ul (4.8-10.8)
[2023-09-23 06:24] LABS: Albumin Globulin Ratio 0.7 (0.9-2); BUN Creatinine Ratio 19.7 (10-20); Bilirubin,Total 0.2 mg/dl (0.2-1.0); Calcium 8.2 mg/dl (8.6-10.3); Creatinine Clr Calc Pharmacy 33.1 ml/min; Est GFR (African American) 32.2 ml/min; Est GFR (Non-African American) 27.8 ml/min; Globulin 2.9 gm/dl (2.5-4.0); Potassium 4.3 mmol/L (3.5-5.1); Total Protein 4.9 gm/dl (6.0-8.3)
[2023-09-23 06:34] LABS: Polychromasia 1+
[2023-09-23 06:38] LABS: INR 2.1 (0.9-1.1); Prothrombin Time 21.6 Seconds (9.0-12.0)
--- NOTE | 2023-09-23 11:50 | Nephrology Progress Note ---
Date of Service September 23, 2023 Assessment & Plan (1) SAJAN (acute kidney injury): Plan: creat plateau'd today at 1.8. Stable stage I nonoliguric acute kidney injury. Baseline creatinine 1.1-1.2. challenging to balance stone patient needs (needs massive fluid intake) w/ hyponatremia (fluid limit). Ddx includes ATN, AIN; less likely recurrent obstruction; prerenal also on the differential. Typical tools for evaluating volume status not available >> can't check orthostatics, I/O not complete. 01/2023 TTE > EF 55%, mild CLVH, severe L atrial enlargment w/ calcified aortic valve and moderate ; worse than study one year back >>she did have about 14 hours of hypotension 09/19, improved now >> with SAJAN on 09/20. prerenal high on differential. 09/20 UA remarkable for concentrated urine w/1+ protein and blood, ketones noted; inflammation noted and some epithelial cells but no bacteria. CXR 09/20 w/ mild plm edema. BP improved w/ packed red cells and has been been maintained in the wake of transfusion. renal u/s unremarkable for acute change/new obstruction -give 500 mL Normosol if SBP drops below 110 consistently today; mild edema on CXR but not hypoxic and w/ SAJAN would observe; diuretics/IVF PRN hypoxia/hypotension respectively (2) Chronic hyponatremia: Plan: chronic - eg present > 48 hrs -- hyponatremia improving from 118 at 09/10 presentation to 122 and behaving as prerenal/hypovolemic. no prior hx of this issue. Presented w/ critical hyponatremia but improved appropriately w/ NS then to NS + lasix to 135 today which has decreased slightly but remains acceptable. -currently no lasix, no K supplements; will give normosol as above -encourage protein intake -will d/c fluid limit >> encourage fluid intake >>>continue strict I/O (3) E coli bacteremia: Plan: w/ E coli and Enterobacter on admission cultures as well as L5-S1 discitis and iliopsoas abscess >> on daptomycin and ampicillin; ? duration. not a candidate for ortho or IR intervention for back. s/p 09/15 stone extraction and stent exchange for bedside stent removal but stent came out on it's own >had L spine CT 09/21 > no change in L5-S1 discitis/OM and 1.1 cm paravertebral abscess Admission and Anticipated Discharge Date Admission Date: September 11, 2023 Subjective no further hypotension; tearful / frustrated today at her generalized weakness/inability to do much PT/OT; no sob, no n/v Review of Systems 2 Review of Systems: All systems reviewed & are unremarkable except as noted in Subjective Physical Exam 2 Constitutional: well developed, well nourished, + morbidly obese, + frail appearing and cooperative; no acute distress Eyes: EOM intact bilaterally ENMT: Ears: no external ear abnormality Nose: no external nose abnormality Mouth: + dry oral mucous membranes Neck: no nuchal rigidity Respiratory: normal respiratory effort Auscultation: + diminished lung sounds Cardiovascular: Rate/Rhythm: regular rate and regular rhythm Heart Sounds: + murmur Extremities: + edema (trace BLE indurated) Gastrointestinal (Abdomen): Inspection/Auscultation: normal bowel sounds P ercussion/Palpation: abdomen soft; abdomen nontender Musculoskeletal: Extremities: strength 5/5 throughout Skin: no rashes, warm and dry Psychiatric: Orientation: alert and oriented x 3 Results & Data Vital Signs (Past 12 Hours) Vital Signs Temp Pulse Pulse Resp BP Pulse Ox O2 Del Method 09/23/23 11:18 36.5 C 74 18 128/72 97 Room Air 09/23/23 11:04 Room Air 09/23/23 07:55 74 09/23/23 07:35 36.6 C 68 18 144/69 H 96 Room Air 09/23/23 03:01 36.6 C 71 16 113/70 96 Room Air Laboratory Results 09/23/23 05:20 09/23/23 05:20
--- NOTE | 2023-09-23 13:34 | Hospitalist Progress Note ---
Date of Service September 23, 2023 Assessment & Plan (1) AMS (altered mental status): Plan: 73 yo F with type 2 diabetes, gout, hyperlipidemia, hypothyroidism, obstructive sleep apnea on CPAP, paroxysmal atrial fibrillation, chronic diastolic CHF, CKD stage III, pulmonary hypertension, obesity, GERD, chronic bilateral low back pain, history of CVA, history of gastric ulcer comes from [facility] because of patient being sleeping more and less interactive. Patient was admitted on July 30, 2023 with UTI and sepsis and right ureteral calculus had adenovirus infection and SAJAN with creatinine of 4.2 and then patient was in septic shock requiring pressors cultures growing VRE, E. coli and Proteus mirabilis in the urine and blood cultures growing E. coli and antibiotics were tapered to IV ampicillin per ID to complete 14-day course and she is s/p right ureteral stent placement. kidney function improved and she was discharged to long term on August 10, 2023. Acute metabolic encephalopathy, resolved Secondary to underlying E. coli UTI, bacteremia In the setting of indwelling ureteral stent, nephrolithiasis Sepsis, POA R iliacus/iliopsoas abscesses L5-S1 discitis and osteomyelitis Status post stone treatment and stent exchange on 09/16/23 Blood cultures from 09/10positive for E. coli Urine culture from 09/10E. coli, lactobacillus MRI done for the back pain from September 14, 2023 showed L5-S1 discitis and osteomyelitis, 2 associated iliac us and iliopsoas fluid collection consistent with abscess. Lumbar CT repeated on September 22, 2023 did not show any significant change compared to MRI from September 14, 2023 Previous hospitalist discussed with infectious disease; they recommend IV Unasyn for 6 weeks in light of discitis, osteomyelitis and iliopsoas abscess PICC line in place Will obtain weekly ESR, CRP SAJAN on CKD stage III Creatinine up trended from 1.3-1.8 Likely secondary to hypotensive episode Nephrology on board; can give bolus as necessary if hypotensive Blood pressure overall improved BMP daily Avoid nephrotoxic agent Pressure ulcer of right buttock, unstageable and cluster of 3 pressure ulcers on bilateral lower back, unstageable, all POA Patient has [id number] hospitalization within the last few months leading to physical deconditioning. Patient bedbound and requires Ketty lift to get her out of the bed Continue PT OT Wound care on board Acute on chronic hyponatremia Presented with sodium of 118 Nephrology was on board; was given IV fluids and Lasix. Sodium improved Hyperkalemia Potassium 5.5 Nephrology consulted, K now wnl Elevated troponin Troponin 16 mostly demand ischemia Obstructive sleep apnea CPAP nightly refused cpap says she was on cpap for last 5-6yrs but not using for last 6 weeks as mask was not fitting. She got new mask but not started using it yet as she had cold symptoms. Diabetes Will hold home p.o. medications Sliding scale and lantus 5units daily for now Will monitor History of paroxysmal atrial fibrillation On amiodarone and metoprolol and Coumadin Continue Coumadin 2 mg p.o. daily INR daily Chronic diastolic CHF Was on spironolactone and Bumex last admission but seems stopped at [place] for hyponatremia and worsening kidney function CXR: mild pulmonary edema Nephrology following; currently holding diuretics Gout On allopurinol Depression recently started on Lexapro Hypothyroidism On Synthyroid Hyperlipidemia On statin GERD On omeprazole Hypertension Lisinopril and amlodipine were held at time of discharge last admission on metoprolol DVT prophylaxis Coumadin Disposition Anticipate transition to acute rehab when medically stable Time spent evaluating patient, direct bedside care, chart review, placing orders, interpretation of diagnostic studies, discussion with consultants, patient, and family members, as well as other required patient management activities is 60 minutes Please note the above document was generated using voice recognition software. It may contain grammatical, syntax or spelling errors. Any formal questions or concerns about the content, text or information contained within the body of this dictation should be directly addressed to the provider for clarification Admission and Anticipated Discharge Date Admission Date: September 11, 2023 Subjective Patient seen and examined at bedside. She is lying in the bed comfortably; not in distress Denies fever, chills, chest pain, shortness of breath or abdominal pain Vitals are stable and she is saturating well on room air Review of Systems Review of Systems: All systems reviewed & are unremarkable except as noted in Subjective Physical Exam Physical Exam: General- oriented x 3, not in distress, speaks in sentences with no effort or accessory muscle use Eyes- anicteric Neck- no JVD Lungs- clear breath sounds bilaterally, no rales/wheezes Heart- normal rate, regular rhythm; no murmurs Abdomen- normal bowel sounds, nondistended, soft, nontender Extremities- no pretibial edema, no calf tenderness. Redness in bilateral lower extremity Neuro- alert, oriented x 3; no gross focal neurologic deficits Skin- warm & dry Results & Data Results & Data Vital Signs (Past 12 Hours) Vital Signs Temp Pulse Pulse Resp BP Pulse Ox O2 Del Method 09/23/23 11:18 36.5 C 74 18 128/72 97 Room Air 09/23/23 11:04 Room Air 09/23/23 07:55 74 09/23/23 07:35 36.6 C 68 18 144/69 H 96 Room Air 09/23/23 03:01 36.6 C 71 16 113/70 96 Room Air
[2023-09-24 05:54] LABS: Basophils # (auto) 0.04 K/uL (0.00-0.20); Basophils % (auto) 0.7 %; Eosinophils # (auto) 0.02 K/uL (0.00-0.50); Eosinophils % (auto) 0.3 %; Hematocrit (blood only) 24.9 % (37.0-47.0); Hemoglobin 7.9 g/dl (12.0-16.0); Immature Granulocytes # (auto) 0.19 K/uL (0.01-0.20); Immature Granulocytes % (auto) 3.1 %; Lymphocytes # (auto) 1.64 K/uL (1.20-3.40); Mean Corpuscular Hemoglobin 27.8 pg (25.0-34.0); Mean Corpuscular Hgb Conc 31.7 g/dL (32.0-36.0); Mean Corpuscular Volume 87.7 fL (80.0-100.0); Mean Platelet Volume 9.2 fL (9.4-12.4); Monocytes # (auto) 0.43 K/uL (0.11-0.59); Monocytes % (auto) 7.1 %; Neutrophils # (auto) 3.76 K/uL (1.40-6.50); Neutrophils % (auto) 61.8 %; Platelet Count 193 K/uL (130-400); RDW Coefficient of Variation 18.1 % (11.5-14.5); RDW Standard Deviation 56.3 fL (36.4-46.3); Red Blood Count 2.84 M/uL (4.20-5.40); White Blood Count 6.08 K/ul (4.8-10.8)
[2023-09-24 06:10] LABS: Albumin Globulin Ratio 0.7 (0.9-2); BUN Creatinine Ratio 22.2 (10-20); Bilirubin,Total 0.2 mg/dl (0.2-1.0); C Reactive Protein 5.83 mg/dl (0-0.5); Calcium 8.1 mg/dl (8.6-10.3); Creatinine Clr Calc Pharmacy 38.7 ml/min; Est GFR (African American) 38.7 ml/min; Est GFR (Non-African American) 33.4 ml/min; Globulin 2.9 gm/dl (2.5-4.0); Potassium 4.2 mmol/L (3.5-5.1); Total Protein 4.9 gm/dl (6.0-8.3)
[2023-09-24 06:36] LABS: INR 2.4 (0.9-1.1); Prothrombin Time 23.9 Seconds (9.0-12.0)
[2023-09-24 06:47] LABS: Polychromasia 1+
--- NOTE | 2023-09-24 14:03 | Hospitalist Progress Note ---
Date of Service September 24, 2023 Assessment & Plan (1) AMS (altered mental status): Plan: 73 yo F with type 2 diabetes, gout, hyperlipidemia, hypothyroidism, obstructive sleep apnea on CPAP, paroxysmal atrial fibrillation, chronic diastolic CHF, CKD stage III, pulmonary hypertension, obesity, GERD, chronic bilateral low back pain, history of CVA, history of gastric ulcer comes from [facility] because of patient being sleeping more and less interactive. Patient was admitted on July 30, 2023 with UTI and sepsis and right ureteral calculus had adenovirus infection and SAJAN with creatinine of 4.2 and then patient was in septic shock requiring pressors cultures growing VRE, E. coli and Proteus mirabilis in the urine and blood cultures growing E. coli and antibiotics were tapered to IV ampicillin per ID to complete 14-day course and she is s/p right ureteral stent placement. kidney function improved and she was discharged to [facility] on August 10, 2023. Acute metabolic encephalopathy, resolved Secondary to underlying E. coli UTI, bacteremia In the setting of indwelling ureteral stent, nephrolithiasis Sepsis, POA R iliacus/iliopsoas abscesses L5-S1 discitis and osteomyelitis Status post stone treatment and stent exchange on 09/16/23 Blood cultures from 09/10positive for E. coli Urine culture from 09/10E. coli, lactobacillus Repeat blood culture from o growth MRI done for the back pain from September 14, 2023 showed L5-S1 discitis and osteomyelitis, 2 associated iliac us and iliopsoas fluid collection consistent with abscess. Lumbar CT repeated on September 22, 2023 did not show any significant change compared to MRI from September 14, 2023 Previous hospitalist discussed with infectious disease; they recommend IV Unasyn for 6 weeks in light of discitis, osteomyelitis and iliopsoas abscess PICC line in place ESR on 09/2467, CRP5.83 SAJAN on CKD stage III Creatinine up trended from 1.3-1.8 Likely secondary to hypotensive episode Nephrology on board; can give bolus as necessary if hypotensive Blood pressure overall improved Creatinine mildly improved Continue monitor Avoid nephrotoxic agent Pressure ulcer of right buttock, unstageable and cluster of 3 pressure ulcers on bilateral lower back, unstageable, all POA Patient has [id number] hospitalization within the last few months leading to physical deconditioning. Patient bedbound and requires Ketty lift to get her out of the bed Continue PT OT Wound care on board Acute on chronic hyponatremia Presented with sodium of 118 Nephrology was on board; was given IV fluids and Lasix. Sodium improved Hyperkalemia Potassium 5.5 Nephrology consulted, K now wnl Elevated troponin Troponin 16 mostly demand ischemia Obstructive sleep apnea CPAP nightly refused cpap says she was on cpap for last 5-6yrs but not using for last 6 weeks as mask was not fitting. She got new mask but not started using it yet as she had cold symptoms. Diabetes Will hold home p.o. medications Sliding scale and lantus 5units daily for now Will monitor History of paroxysmal atrial fibrillation On amiodarone and metoprolol and Coumadin Continue Coumadin 2 mg p.o. daily INR daily Chronic diastolic CHF Was on spironolactone and Bumex last admission but seems stopped at [place] for hyponatremia and worsening kidney function CXR: mild pulmonary edema Nephrology following; currently holding diuretics Gout On allopurinol Depression recently started on Lexapro Hypothyroidism On Synthyroid Hyperlipidemia On statin GERD On omeprazole Hypertension Lisinopril and amlodipine were held at time of discharge last admission on metoprolol DVT prophylaxis Coumadin Disposition Anticipate transition to acute rehab when medically stable Time spent evaluating patient, direct bedside care, chart review, placing orders, interpretation of diagnostic studies, discussion with consultants, patient, and family members, as well as other required patient management activities is 50 minutes Please note the above document was generated using voice recognition software. It may contain grammatical, syntax or spelling errors. Any formal questions or concerns about the content, text or information contained within the body of this dictation should be directly addressed to the provider for clarification Admission and Anticipated Discharge Date Admission Date: September 11, 2023 Subjective Patient seen and examined at bedside This is lying on the bed comfortably; not in distress Patient reports mild back pain; denies any fever or chills. Patient reports that she was able to sit up with 2 people max assist Review of Systems Review of Systems: All systems reviewed & are unremarkable except as noted in Subjective Physical Exam Physical Exam: General- oriented x 3, not in distress, speaks in sentences with no effort or accessory muscle use Eyes- anicteric Neck- no JVD Lungs- clear breath sounds bilaterally, no rales/wheezes Heart- normal rate, regular rhythm; no murmurs Abdomen- normal bowel sounds, nondistended, soft, nontender Extremities- no pretibial edema, no calf tenderness. Redness in bilateral lower extremity Neuro- alert, oriented x 3; no gross focal neurologic deficits Skin- warm & dry Results & Data Results & Data Vital Signs (Past 12 Hours) Vital Signs Temp Pulse Resp BP BP Pulse Ox O2 Del Method 09/24/23 11:27 36.4 C L 72 19 145/89 H 98 Room Air 09/24/23 08:00 Room Air 09/24/23 07:24 36.4 C L 74 19 123/60 97 Room Air 09/24/23 03:01 36.8 C 71 16 108/55 L 95 Room Air
--- NOTE | 2023-09-24 16:39 | Nephrology Progress Note ---
Date of Service September 24, 2023 Assessment & Plan (1) SAJAN (acute kidney injury): Plan: creat improved today to 1.5 after peak/plateau at 1.8. Stable stage I nonoliguric acute kidney injury. Baseline creatinine 1.1-1.2. challenging to balance stone patient needs (needs massive fluid intake) w/ hyponatremia (fluid limit). Ddx includes ATN, AIN; less likely recurrent obstruction; prerenal also on the differential. Typical tools for evaluating volume status not available >> can't check orthostatics, I/O not complete. 01/2023 TTE > EF 55%, mild CLVH, severe L atrial enlargment w/ calcified aortic valve and moderate ; worse than study one year back >>she did have about 14 hours of hypotension 09/19, improved now >> with SAJAN on 09/20. prerenal high on differential. 09/20 UA remarkable for concentrated urine w/1+ protein and blood, ketones noted; inflammation noted and some epithelial cells but no bacteria. CXR 09/20 w/ mild plm edema. BP improved w/ packed red cells and has been been maintained in the wake of transfusion. renal u/s unremarkable for acute change/new obstruction -continue to recommend: give 500 mL Normosol if SBP drops below 110 consistently today; mild edema on CXR but not hypoxic and w/ SAJAN would observe; diuretics/IVF PRN hypoxia/hypotension respectively Will sign off; pls call if ? NEPHRO D/C RECS -bmp daily while in house -bmp weekly after d/c -hospital d/c visit w/ me 4 wks after d/c from rehab or after admission to longer-term care w/ neph nurse to order bmp, uacm, acr, urine electrolytes, urine osms, serum osms -continue metoprolol current dose (2) Chronic hyponatremia: Plan: chronic - eg present > 48 hrs -- hyponatremia improving from 118 at 09/10 presentation to 122 and behaving as prerenal/hypovolemic. no prior hx of this issue. Presented w/ critical hyponatremia but improved appropriately w/ NS then to NS + lasix; Na is 135 today which has decreased slightly but remains acceptable. -currently no lasix, no K supplements; will give normosol as above -encourage protein intake -no fluid limit >> encourage fluid intake >>>continue strict I/O (3) E coli bacteremia: Plan: w/ E coli and Enterobacter on admission cultures as well as L5-S1 discitis and iliopsoas abscess >> on daptomycin and ampicillin; ? duration. not a candidate for ortho or IR intervention for back. s/p 09/15 stone extraction and stent exchange for bedside stent removal but stent came out on it's own >had L spine CT 09/21 > no change in L5-S1 discitis/OM and 1.1 cm paravertebral abscess Admission and Anticipated Discharge Date Admission Date: September 11, 2023 Subjective More tired today and with an upset stomach reported on afternoon rounds. No nausea or vomiting. Struggled to eat a third of her supper. Denies shortness of breath. Denies uncontrolled pain. Does not notice edema or knot in her legs. Review of Systems 2 Review of Systems: All systems reviewed & are unremarkable except as noted in Subjective Physical Exam 2 Constitutional: well developed, well nourished, + morbidly obese, + altered mental status, + frail appearing and cooperative; no acute distress Eyes: EOM intact bilaterally ENMT: Ears: no external ear abnormality Nose: no external nose abnormality Mouth: + dry oral mucous membranes Neck: no nuchal rigidity Respiratory: normal respiratory effort Auscultation: + diminished lung sounds Cardiovascular: Rate/Rhythm: regular rate and regular rhythm Heart Sounds: + murmur Extremities: + edema (trace BLE indurated) Gastrointestinal (Abdomen): Inspection/Auscultation: normal bowel sounds P ercussion/Palpation: abdomen soft; abdomen nontender Musculoskeletal: Extremities: strength 5/5 throughout Skin: no rashes, warm and dry Psychiatric: Orientation: alert and oriented x 3 Results & Data Vital Signs (Past 12 Hours) Vital Signs Temp Pulse Resp BP Pulse Ox O2 Del Method 09/24/23 15:06 36.5 C 76 19 137/56 L 93 Room Air 09/24/23 11:27 36.4 C L 72 19 145/89 H 98 Room Air 09/24/23 08:00 Room Air 09/24/23 07:24 36.4 C L 74 19 123/60 97 Room Air Laboratory Results 09/24/23 05:24 09/24/23 05:24
[2023-09-25 05:51] LABS: Basophils # (auto) 0.04 K/uL (0.00-0.20); Basophils % (auto) 0.7 %; Eosinophils # (auto) 0.05 K/uL (0.00-0.50); Eosinophils % (auto) 0.8 %; Hematocrit (blood only) 25.7 % (37.0-47.0); Immature Granulocytes # (auto) 0.12 K/uL (0.01-0.20); Lymphocytes # (auto) 1.71 K/uL (1.20-3.40); Lymphocytes % (auto) 28.2 %; Mean Corpuscular Hemoglobin 27.4 pg (25.0-34.0); Mean Corpuscular Hgb Conc 31.1 g/dL (32.0-36.0); Mean Platelet Volume 9.3 fL (9.4-12.4); Monocytes # (auto) 0.44 K/uL (0.11-0.59); Monocytes % (auto) 7.2 %; Neutrophils # (auto) 3.71 K/uL (1.40-6.50); Neutrophils % (auto) 61.1 %; Platelet Count 190 K/uL (130-400); RDW Coefficient of Variation 18.2 % (11.5-14.5); RDW Standard Deviation 57.5 fL (36.4-46.3); Red Blood Count 2.92 M/uL (4.20-5.40); White Blood Count 6.07 K/ul (4.8-10.8)
[2023-09-25 06:03] LABS: Albumin Globulin Ratio 0.7 (0.9-2); BUN Creatinine Ratio 23.8 (10-20); Bilirubin,Total 0.2 mg/dl (0.2-1.0); Creatinine Clr Calc Pharmacy 47.1 ml/min; Est GFR (African American) 48.9 ml/min; Est GFR (Non-African American) 42.2 ml/min; Potassium 4.1 mmol/L (3.5-5.1)
[2023-09-25 06:11] LABS: INR 2.6 (0.9-1.1); Prothrombin Time 25.5 Seconds (9.0-12.0)
--- NOTE | 2023-09-25 13:01 | Hospitalist Progress Note ---
Date of Service September 25, 2023 Assessment & Plan (1) AMS (altered mental status): Plan: 73 yo F with type 2 diabetes, gout, hyperlipidemia, hypothyroidism, obstructive sleep apnea on CPAP, paroxysmal atrial fibrillation, chronic diastolic CHF, CKD stage III, pulmonary hypertension, obesity, GERD, chronic bilateral low back pain, history of CVA, history of gastric ulcer comes from [facility] because of patient being sleeping more and less interactive. Patient was admitted on July 30, 2023 with UTI and sepsis and right ureteral calculus had adenovirus infection and SAJAN with creatinine of 4.2 and then patient was in septic shock requiring pressors cultures growing VRE, E. coli and Proteus mirabilis in the urine and blood cultures growing E. coli and antibiotics were tapered to IV ampicillin per ID to complete 14-day course and she is s/p right ureteral stent placement. kidney function improved and she was [facility], [facility]. Acute metabolic encephalopathy, resolved Secondary to underlying E. coli UTI, bacteremia In the setting of indwelling ureteral stent, nephrolithiasis Sepsis, POA R iliacus/iliopsoas abscesses L5-S1 discitis and osteomyelitis Status post stone treatment and stent exchange on 09/16/23 Blood cultures from 09/10positive for E. coli Urine culture from 09/10E. coli, lactobacillus Repeat blood culture from o growth MRI done for the back pain from September 14, 2023 showed L5-S1 discitis and osteomyelitis, 2 associated iliac us and iliopsoas fluid collection consistent with abscess. Lumbar CT repeated on September 22, 2023 did not show any significant change compared to MRI from September 14, 2023 Previous hospitalist discussed with infectious disease; they recommend IV Unasyn for 6 weeks in light of discitis, osteomyelitis and iliopsoas abscess PICC line in place ESR on 09/2467, CRP5.83 SAAJN on CKD stage III Creatinine up trended from 1.3-1.8 Likely secondary to hypotensive episode Nephrology on board; can give bolus as necessary if hypotensive Blood pressure overall improved Creatinine improved Continue monitor Avoid nephrotoxic agent Pressure ulcer of right buttock, unstageable and cluster of 3 pressure ulcers on bilateral lower back, unstageable, all POA Patient has [id number] hospitalization within the last few months leading to physical deconditioning. Patient bedbound and requires Ketty lift to get her out of the bed Continue PT OT Wound care on board Acute on chronic hyponatremia Presented with sodium of 118 Nephrology was on board; was given IV fluids and Lasix. Sodium improved Hyperkalemia Potassium 5.5 Nephrology consulted, K now wnl Elevated troponin Troponin 16 mostly demand ischemia Obstructive sleep apnea CPAP nightly refused cpap says she was on cpap for last 5-6yrs but not using for last 6 weeks as mask was not fitting. She got new mask but not started using it yet as she had cold symptoms. Diabetes Will hold home p.o. medications Sliding scale and lantus 5units daily for now Will monitor History of paroxysmal atrial fibrillation On amiodarone and metoprolol and Coumadin Continue Coumadin 2 mg p.o. daily INR daily Chronic diastolic CHF Was on spironolactone and Bumex last admission but seems stopped at [place] for hyponatremia and worsening kidney function CXR: mild pulmonary edema Will start on torsemide 20 mg once a day. Gout On allopurinol Depression recently started on Lexapro Hypothyroidism On Synthyroid Hyperlipidemia On statin GERD On omeprazole Hypertension Lisinopril and amlodipine were held at time of discharge last admission on metoprolol, continue DVT prophylaxis Coumadin Disposition Anticipate transition to acute rehab when medically stable Time spent evaluating patient, direct bedside care, chart review, placing orders, interpretation of diagnostic studies, discussion with consultants, patient, and family members, as well as other required patient management activities is 50 minutes Please note the above document was generated using voice recognition software. It may contain grammatical, syntax or spelling errors. Any formal questions or concerns about the content, text or information contained within the body of this dictation should be directly addressed to the provider for clarification Admission and Anticipated Discharge Date Admission Date: September 11, 2023 Subjective Patient seen and examined at bedside She reports that she is comfortable; not in distress. She feels tightness in bilateral lower extremity. No significant events overnight Review of Systems Review of Systems: All systems reviewed & are unremarkable except as noted in Subjective Physical Exam Physical Exam: General- oriented x 3, not in distress, speaks in sentences with no effort or accessory muscle use Eyes- anicteric Neck- no JVD Lungs- clear breath sounds bilaterally, no rales/wheezes Heart- normal rate, regular rhythm; no murmurs Abdomen- normal bowel sounds, nondistended, soft, nontender Extremities- 2+ pitting edema present, no calf tenderness. Redness in bilateral lower extremity Neuro- alert, oriented x 3; no gross focal neurologic deficits Skin- warm & dry Results & Data Results & Data Vital Signs (Past 12 Hours) Vital Signs Temp Pulse Pulse Resp BP Pulse Ox O2 Del Method 09/25/23 11:17 36.4 C L 77 19 116/74 98 Room Air 09/25/23 07:15 36.4 C L 83 18 122/72 97 Room Air 09/25/23 03:30 36.5 C 75 18 131/68 92 Room Air 09/25/23 01:07 67
[2023-09-25] MEDS: TORSEMIDE 20 MG TAB PO SCH (14:21)
[2023-09-26 06:31] LABS: Basophils # (auto) 0.08 K/uL (0.00-0.20); Basophils % (auto) 1.2 %; Eosinophils # (auto) 0.08 K/uL (0.00-0.50); Eosinophils % (auto) 1.2 %; Hematocrit (blood only) 25.6 % (37.0-47.0); Hemoglobin 7.9 g/dl (12.0-16.0); Immature Granulocytes # (auto) 0.15 K/uL (0.01-0.20); Immature Granulocytes % (auto) 2.2 %; Lymphocytes # (auto) 1.82 K/uL (1.20-3.40); Lymphocytes % (auto) 27.1 %; Mean Corpuscular Hemoglobin 27.3 pg (25.0-34.0); Mean Corpuscular Hgb Conc 30.9 g/dL (32.0-36.0); Mean Corpuscular Volume 88.6 fL (80.0-100.0); Mean Platelet Volume 9.4 fL (9.4-12.4); Monocytes # (auto) 0.48 K/uL (0.11-0.59); Monocytes % (auto) 7.1 %; Neutrophils # (auto) 4.11 K/uL (1.40-6.50); Neutrophils % (auto) 61.2 %; Platelet Count 178 K/uL (130-400); RDW Coefficient of Variation 18.2 % (11.5-14.5); RDW Standard Deviation 59.4 fL (36.4-46.3); Red Blood Count 2.89 M/uL (4.20-5.40); White Blood Count 6.72 K/ul (4.8-10.8)
[2023-09-26 06:57] LABS: INR 2.7 (0.9-1.1); Prothrombin Time 26.5 Seconds (9.0-12.0)
[2023-09-26 06:58] LABS: Albumin Globulin Ratio 0.7 (0.9-2); BUN Creatinine Ratio 25.9 (10-20); Bilirubin,Total 0.2 mg/dl (0.2-1.0); Creatinine Clr Calc Pharmacy 53.1 ml/min; Est GFR (African American) 56.4 ml/min; Est GFR (Non-African American) 48.7 ml/min; Potassium 3.9 mmol/L (3.5-5.1)
[2023-09-26 07:12] LABS: Polychromasia 1+; Tear Drop Cells 1+
[2023-09-26] MEDS: POLYETHYLENE (MIRALAX) 17 GM PACK PO PRN (08:40)
--- NOTE | 2023-09-26 12:54 | Hospitalist Progress Note ---
Date of Service September 26, 2023 Assessment & Plan (1) AMS (altered mental status): Plan: 73 yo F with type 2 diabetes, gout, hyperlipidemia, hypothyroidism, obstructive sleep apnea on CPAP, paroxysmal atrial fibrillation, chronic diastolic CHF, CKD stage III, pulmonary hypertension, obesity, GERD, chronic bilateral low back pain, history of CVA, history of gastric ulcer comes from [facility] because of patient being sleeping more and less interactive. Patient was admitted on July 30, 2023 with UTI and sepsis and right ureteral calculus had adenovirus infection and SAJAN with creatinine of 4.2 and then patient was in septic shock requiring pressors cultures growing VRE, E. coli and Proteus mirabilis in the urine and blood cultures growing E. coli and antibiotics were tapered to IV ampicillin per ID to complete 14-day course and she is s/p right ureteral stent placement. kidney function improved and she was discharged to [facility] on August 10, 2023. Acute metabolic encephalopathy, resolved Secondary to underlying E. coli UTI, bacteremia In the setting of indwelling ureteral stent, nephrolithiasis Sepsis, POA R iliacus/iliopsoas abscesses L5-S1 discitis and osteomyelitis Patient presented to the ED on September 10 with altered mental status. It was thought secondary to UTI. CT abdomen and pelvis showed right nephroureteral stent in place. Patient underwent removal and stent exchange on September 16, 2023 MRI done for the back pain from September 14, 2023 showed L5-S1 discitis and osteomyelitis, 2 associated iliac us and iliopsoas fluid collection consistent with abscess. Lumbar CT repeated on September 22, 2023 did not show any significant change compared to MRI from September 14, 2023 Blood cultures from 09/10positive for E. coli Urine culture from 09/10E. coli, lactobacillus Repeat blood culture from 09/11no growth ESR on 09/2467, CRP5.83 Initially ID recommended patient to be started on IV ampicillin for 14 days on September 13, 2023. However, given the findings on the MRI showing discitis, osteomyelitis and abscesses. Previous attending discussed with infectious disease again and patient was recommended to be on IV Unasyn for total of 6 weeks. SAJAN on CKD stage III Creatinine up trended from 1.3-1.8 Likely secondary to hypotensive episode Nephrology on board; can give bolus as necessary if hypotensive Blood pressure overall improved Creatinine improved Continue monitor Avoid nephrotoxic agent Pressure ulcer of right buttock, unstageable and cluster of 3 pressure ulcers on bilateral lower back, unstageable, all POA Patient has [id number] hospitalization within the last few months leading to physical deconditioning. Patient bedbound and requires Ketty lift to get her o ut of the bed Continue PT OT Wound care on board Acute on chronic hyponatremia Presented with sodium of 118 Nephrology was on board; was given IV fluids and Lasix. Sodium improved Hyperkalemia Potassium 5.5 Nephrology consulted, K now wnl Elevated troponin Troponin 16 mostly demand ischemia Obstructive sleep apnea CPAP nightly refused cpap says she was on cpap for last 5-6yrs but not using for last 6 weeks as mask was not fitting. She got new mask but not started using it yet as she had cold symptoms. Diabetes Will hold home p.o. medications Sliding scale and lantus 5units daily for now Will monitor History of paroxysmal atrial fibrillation On amiodarone and metoprolol and Coumadin Continue Coumadin 2 mg p.o. daily INR daily Chronic diastolic CHF Was on spironolactone and Bumex last admission but seems stopped at [place] for hyponatremia and worsening kidney function CXR: mild pulmonary edema Will start on torsemide 20 mg once a day. Gout On allopurinol Depression recently started on Lexapro Hypothyroidism On Synthyroid Hyperlipidemia On statin GERD On omeprazole Hypertension Lisinopril and amlodipine were held at time of discharge last admission on metoprolol, continue DVT prophylaxis Coumadin Disposition Anticipate transition to acute rehab when medically stable Time spent evaluating patient, direct bedside care, chart review, placing orders, interpretation of diagnostic studies, discussion with consultants, patient, and family members, as well as other required patient management activities is 50 minutes Please note the above document was generated using voice recognition software. It may contain grammatical, syntax or spelling errors. Any formal questions or concerns about the content, text or information contained within the body of this dictation should be directly addressed to the provider for clarification Admission and Anticipated Discharge Date Admission Date: September 11, 2023 Subjective Patient seen and examined at bedside She is comfortable lying on the bed; reports lower back pain. Urine output improved with introduction of diuretics She reports that her leg feels less tighter Review of Systems Review of Systems: All systems reviewed & are unremarkable except as noted in Subjective Physical Exam Physical Exam: General- oriented x 3, not in distress, speaks in sentences with no effort or accessory muscle use Eyes- anicteric Neck- no JVD Lungs- clear breath sounds bilaterally, no rales/wheezes Heart- normal rate, regular rhythm; no murmurs Abdomen- normal bowel sounds, nondistended, soft, nontender Extremities- 2+ pitting edema present, no calf tenderness. Redness in bilateral lower extremity Neuro- alert, oriented x 3; no gross focal neurologic deficits Skin- warm & dry Results & Data Results & Data Vital Signs (Past 12 Hours) Vital Signs Temp Pulse Resp BP Pulse Ox O2 Del Method 09/26/23 11:18 36.4 C L 71 19 118/78 97 Room Air 09/26/23 07:26 36.4 C L 81 19 120/75 93 Room Air 09/26/23 03:27 36.4 C L 80 17 136/73 93 Room Air
[2023-09-27 07:01] LABS: BUN Creatinine Ratio 27.9 (10-20); Calcium 7.9 mg/dl (8.6-10.3); Creatinine Clr Calc Pharmacy 57.1 ml/min; Est GFR (African American) 61.7 ml/min; Est GFR (Non-African American) 53.3 ml/min; Potassium 3.7 mmol/L (3.5-5.1)
[2023-09-27 07:12] LABS: Basophils # (auto) 0.08 K/uL (0.00-0.20); Basophils % (auto) 1.1 %; Eosinophils # (auto) 0.05 K/uL (0.00-0.50); Eosinophils % (auto) 0.7 %; Hematocrit (blood only) 24.8 % (37.0-47.0); Hemoglobin 7.7 g/dl (12.0-16.0); Immature Granulocytes # (auto) 0.13 K/uL (0.01-0.20); Immature Granulocytes % (auto) 1.8 %; Lymphocytes # (auto) 2.04 K/uL (1.20-3.40); Lymphocytes % (auto) 28.6 %; Mean Corpuscular Hemoglobin 27.5 pg (25.0-34.0); Mean Corpuscular Volume 88.6 fL (80.0-100.0); Mean Platelet Volume 10.2 fL (9.4-12.4); Monocytes # (auto) 0.47 K/uL (0.11-0.59); Monocytes % (auto) 6.6 %; Neutrophils # (auto) 4.37 K/uL (1.40-6.50); Neutrophils % (auto) 61.2 %; Platelet Count 199 K/uL (130-400); RDW Coefficient of Variation 18.3 % (11.5-14.5); RDW Standard Deviation 58.2 fL (36.4-46.3); White Blood Count 7.14 K/ul (4.8-10.8)
[2023-09-27 07:26] LABS: INR 2.6 (0.9-1.1); Prothrombin Time 25.7 Seconds (9.0-12.0)
[2023-09-27 08:21] LABS: RBC Morphology Unremarkable
--- NOTE | 2023-09-27 14:02 | Hospitalist Progress Note ---
Date of Service September 27, 2023 Assessment & Plan (1) AMS (altered mental status): Plan: 73 yo F with type 2 diabetes, gout, hyperlipidemia, hypothyroidism, obstructive sleep apnea on CPAP, paroxysmal atrial fibrillation, chronic diastolic CHF, CKD stage III, pulmonary hypertension, obesity, GERD, chronic bilateral low back pain, history of CVA, history of gastric ulcer comes from [facility] because of patient being sleeping more and less interactive. Patient was admitted on July 30, 2023 with UTI and sepsis and right ureteral calculus had adenovirus infection and SAJAN with creatinine of 4.2 and then patient was in septic shock requiring pressors cultures growing VRE, E. coli and Proteus mirabilis in the urine and blood cultures growing E. coli and antibiotics were tapered to IV ampicillin per ID to complete 14-day course and she is s/p right ureteral stent placement. kidney function improved and she was discharged to intermediate on August 10, 2023. Acute metabolic encephalopathy, resolved Secondary to underlying E. coli UTI, bacteremia In the setting of indwelling ureteral stent, nephrolithiasis Sepsis, POA R iliacus/iliopsoas abscesses L5-S1 discitis and osteomyelitis Patient presented to the ED on September 10 with altered mental status. It was thought secondary to UTI. CT abdomen and pelvis showed right nephroureteral stent in place. Patient underwent removal and stent exchange on September 16, 2023 MRI done for the back pain from September 14, 2023 showed L5-S1 discitis and osteomyelitis, 2 associated iliacus and iliopsoas fluid collection consistent with abscess. Lumbar CT repeated on September 22, 2023 did not show any significant change compared to MRI from September 14, 2023 Blood cultures from 09/10positive for E. coli Urine culture from 09/10E. coli, lactobacillus Repeat blood culture from 09/11no growth ESR on 09/2467, CRP5.83 Initially ID recommended patient to be started on IV ampicillin for 14 days on September 13, 2023. However, given the findings on the MRI showing discitis, osteomyelitis and abscesses. Previous attending discussed with infectious disease again and patient was recommended to be on IV Unasyn for total of [address] lumbar gain with contrast tomorrow am SAJAN on CKD stage III Creatinine up trended from 1.3-1.8 Likely secondary to hypotensive episode Nephrology on board; can give bolus as necessary if hypotensive Blood pressure overall improved Creatinine improved Continue monitor Avoid nephrotoxic agent Pressure ulcer of right buttock, unstageable and cluster of 3 pressure ulcers on bilateral lower back, unstageable, all POA Patient has [id number] hospitalization within the last few months leading to physical deconditioning. Patient bedbound and requires Ketty lift to get her out of the bed Continue PT OT Wound care on board Acute on chronic hyponatremia Presented with sodium of 118 Nephrology was on board; was given IV fluids and Lasix. Sodium improved Hyperkalemia Potassium 5.5 Nephrology consulted, K now wnl Elevated troponin Troponin 16 mostly demand ischemia Obstructive sleep apnea CPAP nightly refused cpap says she was on cpap for last 5-6yrs but not using for last 6 weeks as mask was not fitting. She got new mask but not started using it yet as she had cold symptoms. Type 2 Diabetes Will hold home p.o. medications Sliding scale and lantus 5units daily for now Will monitor History of paroxysmal atrial fibrillation On amiodarone and metoprolol and Coumadin Continue Coumadin 2 mg p.o. daily INR daily Chronic diastolic CHF Was on spironolactone and Bumex last admission but seems stopped at [place] for hyponatremia and worsening kidney function CXR: mild pulmonary edema Will start on torsemide 20 mg once a day. Gout On allopurinol Depression recently started on Lexapro Hypothyroidism On Synthyroid Hyperlipidemia On statin GERD On omeprazole Hypertension Lisinopril and amlodipine were held at time of discharge last admission on metoprolol, continue DVT prophylaxis Coumadin Disposition Anticipate transition to acute rehab when medically stable Time spent evaluating patient, direct bedside care, chart review, placing orders, interpretation of diagnostic studies, discussion with consultants, patient, and family members, as well as other required patient management activities is 50 minutes Please note the above document was generated using voice recognition software. It may contain grammatical, syntax or spelling errors. Any formal questions or concerns about the content, text or information contained within the body of this dictation should be directly addressed to the provider for clarification Admission and Anticipated Discharge Date Admission Date: September 11, 2023 Subjective Patient seen and examined at bedside. She is comfortable; not in distress. Reports lower back pain. Vitals are stable Review of Systems Review of Systems: All systems reviewed & are unremarkable except as noted in Subjective Physical Exam Physical Exam: General- oriented x 3, not in distress, speaks in sentences with no effort or accessory muscle use. morbid obesity Eyes- anicteric Neck- no JVD Lungs- clear breath sounds bilaterally, no rales/wheezes Heart- normal rate, regular rhythm; no murmurs Abdomen- normal bowel sounds, nondistended, soft, nontender Extremities- 1+ pitting edema present, no calf tenderness. Redness in bilateral lower extremity Neuro- alert, oriented x 3; no gross focal neurologic deficits Skin- warm & dry Results & Data Results & Data Vital Signs (Past 12 Hours) Vital Signs Temp Pulse Pulse Resp BP BP Pulse Ox 09/27/23 11:19 36.3 C L 80 18 107/70 94 09/27/23 09:00 69 09/27/23 09:00 09/27/23 07:11 36.5 C 76 18 117/71 94 09/27/23 03:30 36.4 C L 77 1 L 122/67 95 O2 Del Method 09/27/23 11:19 Room Air 09/27/23 09:00 09/27/23 09:00 Room Air 09/27/23 07:11 Room Air 09/27/23 03:30 Room Air
[2023-09-28 06:11] LABS: Basophils # (auto) 0.08 K/uL (0.00-0.20); Basophils % (auto) 1.1 %; Eosinophils # (auto) 0.06 K/uL (0.00-0.50); Eosinophils % (auto) 0.9 %; Hematocrit (blood only) 25.1 % (37.0-47.0); Hemoglobin 7.6 g/dl (12.0-16.0); Immature Granulocytes # (auto) 0.15 K/uL (0.01-0.20); Immature Granulocytes % (auto) 2.1 %; Lymphocytes # (auto) 2.39 K/uL (1.20-3.40); Lymphocytes % (auto) 33.9 %; Mean Corpuscular Hemoglobin 26.9 pg (25.0-34.0); Mean Corpuscular Hgb Conc 30.3 g/dL (32.0-36.0); Mean Corpuscular Volume 88.7 fL (80.0-100.0); Mean Platelet Volume 9.7 fL (9.4-12.4); Monocytes # (auto) 0.45 K/uL (0.11-0.59); Monocytes % (auto) 6.4 %; Neutrophils # (auto) 3.91 K/uL (1.40-6.50); Neutrophils % (auto) 55.6 %; Platelet Count 190 K/uL (130-400); RDW Coefficient of Variation 18.7 % (11.5-14.5); RDW Standard Deviation 59.4 fL (36.4-46.3); Red Blood Count 2.83 M/uL (4.20-5.40); White Blood Count 7.04 K/ul (4.8-10.8)
[2023-09-28] MEDS: OPTIRAY 320 100ml IV ONE (06:12)
[2023-09-28 06:24] LABS: BUN Creatinine Ratio 31.4 (10-20); Creatinine Clr Calc Pharmacy 58.3 ml/min; Est GFR (African American) 63.2 ml/min; Est GFR (Non-African American) 54.5 ml/min; Potassium 3.7 mmol/L (3.5-5.1)
[2023-09-28 06:40] LABS: INR 2.5 (0.9-1.1); Prothrombin Time 24.6 Seconds (9.0-12.0)
[2023-09-28 06:47] LABS: Polychromasia 1+; Tear Drop Cells 1+
--- NOTE | 2023-09-28 08:33 | CT Scan Report ---
LUMBAR SPINE CT WITH CONTRAST CLINICAL HISTORY: follow up discitis, iliopsoas abscess COMPARISON STUDY: Lumbar spine MRI September 14, 2023. Lumbar spine CT September 22, 2023. TECHNIQUE: Axial images of the lumbar spine were obtained following intravenous injection of 92 cc of Optiray 320 IV. Sagittal and coronal reconstructions were viewed. Automated exposure control was uti lized for the study. A dose lowering technique was utilized adhering to the principles of ALARA. FINDINGS: Widening of the L5-S1 disc space with erosion of the inferior endplate of L5 and superior e ndplate of S1 is similar to prior CT and MRI of the lumbar spine. This represents discitis/osteomyeli tis. Sensitivity for detection of epidural abscess is significantly diminished given CT technique and artifact on this exam. Possible anterior epidural abnormality at the L5-S1 level is noted on sagitta l reconstructed image 35 of 79. There is central canal stenosis at this level, also suboptimally asse ssed by CT. A left anterior paravertebral fluid collection measuring 1.2 cm on image 237 is unchanged . The previously described right iliacus/iliopsoas fluid collections are similar to prior exam, measu ring up to 2.1 x 1.7 cm. No new fluid collections are present. Several left renal calculi are again n oted. Severe multilevel degenerative changes within the lumbar spine are present. There is moderate l umbar spine levoscoliosis. No acute fractures are present. IMPRESSION: 1. Findings consistent with L5-S1 discitis and osteomyelitis. Associated right iliacus/iliopsoas flui d collections consistent with abscesses are partially imaged on this exam but visualized portions chelsey ear similar to prior CT and MRI. Sensitivity for detection of epidural abscess is significantly dimin ished on this exam. Equivocal anterior epidural abnormality which could reflect phlegmon or developin g epidural abscess. This could be further assessed with MRI of the lumbar spine with and without cont rast. 2. No change in a small left anterior paravertebral abscess. 3. Severe multilevel degenerative changes within lumbar spine. ACT 112: Negative or not required by law. Electronically signed by: Gui Berumen M.D. 09/28/2023 8:32 AM
--- NOTE | 2023-09-28 13:33 | Hospitalist Progress Note ---
Date of Service September 28, 2023 Assessment & Plan (1) AMS (altered mental status): Plan: 73 yo F with type 2 diabetes, gout, hyperlipidemia, hypothyroidism, obstructive sleep apnea on CPAP, paroxysmal atrial fibrillation, chronic diastolic CHF, CKD stage III, pulmonary hypertension, obesity, GERD, chronic bilateral low back pain, history of CVA, history of gastric ulcer comes from [facility] because of patient being sleeping more and less interactive. Patient was admitted on July 30, 2023 with UTI and sepsis and right ureteral calculus had adenovirus infection and SAJAN with creatinine of 4.2 and then patient was in septic shock requiring pressors cultures growing VRE, E. coli and Proteus mirabilis in the urine and blood cultures growing E. coli and antibiotics were tapered to IV ampicillin per ID to complete 14-day course and she is s/p right ureteral stent placement. kidney function improved and she was discharged to [facility] on August 10, 2023. Acute metabolic encephalopathy, resolved Secondary to underlying E. coli UTI, bacteremia In the setting of indwelling ureteral stent, nephrolithiasis Sepsis, POA R iliacus/iliopsoas abscesses L5-S1 discitis and osteomyelitis Patient presented to the ED on September 10 with altered mental status. It was thought secondary to UTI. CT abdomen and pelvis showed right nephroureteral stent in place. Patient underwent removal and stent exchange on September 16, 2023 MRI done for the back pain from September 14, 2023 showed L5-S1 discitis and osteomyelitis, 2 associated iliacus and iliopsoas fluid collection consistent with abscess. Lumbar CT repeated on September 22, 2023 did not show any significant change compared to MRI from September 14, 2023 Blood cultures from 09/10positive for E. coli Urine culture from 09/10E. coli, lactobacillus Repeat blood culture from 09/11no growth ESR on 09/2467, CRP5.83 Initially ID recommended patient to be started on IV ampicillin for 14 days on September 13, 2023. However, given the findings on the MRI showing discitis, osteomyelitis and abscesses. Previous attending discussed with infectious disease again and patient was recommended to be on IV Unasyn for total of [address] of the lumbar spine was done on August; findings were consistent with L5-S1 discitis and osteomyelitis as previous scans. There was associated right iliac us/iliopsoas fluid collection similar to previous scan. Patient is unable to undergo MRI due to inability to lie flat for several minutes. Discussion was done with infectious disease on September 28, 2023( Dr. Haney); he recommended that he would not change antibiotics at this time. He recommended to see if there is a possibility to obtain aspirate from the abscess send the CT. Discussed with interventional radiology SHEKHAR(Mark); he reports attempts could be made to obtain a sample from the abscess. Patient's PT/INR is elevated secondary to Coumadin. The PT/INR needs to be less than 1.5 before proceeding with IR intervention. Will hold patient's Coumadin. If patient's INR is still elevated tomorrow; will consider vitamin K for tentative plan to do IR guided aspiration of the abscess on . I discussed this with the patient and patient's daughter; both are agreeable with the plan. SAJAN on CKD stage III Creatinine up trended from 1.3-1.8 Likely secondary to hypotensive episode Nephrology on board; can give bolus as necessary if hypotensive Blood pressure overall improved Creatinine improved Continue monitor Avoid nephrotoxic agent Pressure ulcer of right buttock, unstageable and cluster of 3 pressure ulcers on bilateral lower back, unstageable, all POA Patient has [id number] hospitalization within the last few months leading to physical deconditioning. Patient bedbound and requires Ketty lift to get her out of the bed Continue PT OT Wound care on board Acute on chronic hyponatremia Presented with sodium of 118 Nephrology was on board; was given IV fluids and Lasix. Sodium improved Hyperkalemia Potassium 5.5 Nephrology consulted, K now wnl Elevated troponin Troponin 16 mostly demand ischemia Obstructive sleep apnea CPAP nightly refused cpap says she was on cpap for last 5-6yrs but not using for last 6 weeks as mask was not fitting. She got new mask but not started using it yet as she had cold symptoms. Type 2 Diabetes Will hold home p.o. medications Sliding scale and lantus 5units daily for now Will monitor History of paroxysmal atrial fibrillation On amiodarone and metoprolol and Coumadin hold coumadin. Chronic diastolic CHF Was on spironolactone and Bumex last admission but seems stopped at [place] for hyponatremia and worsening kidney function CXR: mild pulmonary edema Continue on torsemide 20 mg once a day. Gout On allopurinol Depression recently started on Lexapro Hypothyroidism On Synthyroid Hyperlipidemia On statin GERD On omeprazole Hypertension Lisinopril and amlodipine were held at time of discharge last admission on metoprolol, continue DVT prophylaxis Coumadin on hold Disposition Anticipate transition to acute rehab when medically stable Time spent evaluating patient, direct bedside care, chart review, placing orders, interpretation of diagnostic studies, discussion with consultants, patient, and family members, as well as other required patient management activities is 50 minutes Please note the above document was generated using voice recognition software. It may contain grammatical, syntax or spelling errors. Any formal questions or concerns about the content, text or information contained within the body of this dictation should be directly addressed to the provider for clarification Admission and Anticipated Discharge Date Admission Date: September 11, 2023 Subjective Patient seen and examined at bedside. Comfortable; not in distress. Denies fever, chills, chest pain, shortness of breath, abdominal pain or urinary symptoms. No significant overnight events Review of Systems Review of Systems: All systems reviewed & are unremarkable except as noted in Subjective Physical Exam Physical Exam: General- oriented x 3, not in distress, speaks in sentences with no effort or accessory muscle use. morbid obesity Eyes- anicteric Neck- no JVD Lungs- clear breath sounds bilaterally, no rales/wheezes Heart- normal rate, regular rhythm; no murmurs Abdomen- normal bowel sounds, nondistended, soft, nontender Extremities- 1+ pitting edema present, no calf tenderness. Redness in bilateral lower extremity Neuro- alert, oriented x 3; no gross focal neurologic deficits Skin- warm & dry Results & Data Results & Data Vital Signs (Past 12 Hours) Vital Signs Temp Pulse Pulse Resp BP BP Pulse Ox 09/28/23 11:10 36.4 C L 83 18 125/84 94 09/28/23 09:16 76 09/28/23 07:03 36.5 C 81 18 106/68 94 09/28/23 03:31 36.5 C 67 16 101/61 94 O2 Del Method 09/28/23 11:10 Room Air 09/28/23 09:16 09/28/23 07:03 Room Air 09/28/23 03:31 Room Air
[2023-09-29 07:44] LABS: Basophils # (auto) 0.07 K/uL (0.00-0.20); Basophils % (auto) 1.1 %; Eosinophils # (auto) 0.17 K/uL (0.00-0.50); Eosinophils % (auto) 2.6 %; Hematocrit (blood only) 25.1 % (37.0-47.0); Hemoglobin 7.8 g/dl (12.0-16.0); Immature Granulocytes % (auto) 1.5 %; Lymphocytes # (auto) 1.55 K/uL (1.20-3.40); Lymphocytes % (auto) 23.3 %; Mean Corpuscular Hemoglobin 27.7 pg (25.0-34.0); Mean Corpuscular Hgb Conc 31.1 g/dL (32.0-36.0); Mean Platelet Volume 9.9 fL (9.4-12.4); Neutrophils # (auto) 4.37 K/uL (1.40-6.50); Neutrophils % (auto) 65.5 %; Platelet Count 201 K/uL (130-400); RDW Coefficient of Variation 18.7 % (11.5-14.5); RDW Standard Deviation 59.1 fL (36.4-46.3); Red Blood Count 2.82 M/uL (4.20-5.40); White Blood Count 6.66 K/ul (4.8-10.8)
[2023-09-29 08:02] LABS: Basophilic Stippling 1+; Polychromasia 1+; Tear Drop Cells 1+
[2023-09-29 08:07] LABS: BUN Creatinine Ratio 33.7 (10-20); Creatinine Clr Calc Pharmacy 57.3 ml/min; Est GFR (African American) 61.7 ml/min; Est GFR (Non-African American) 53.3 ml/min; Potassium 3.6 mmol/L (3.5-5.1)
[2023-09-29 08:21] LABS: INR 2.3 (0.9-1.1); Prothrombin Time 22.8 Seconds (9.0-12.0)
--- NOTE | 2023-09-29 14:45 | Hospitalist Progress Note ---
Date of Service September 29, 2023 Assessment & Plan (1) AMS (altered mental status): Plan: 73 yo F with PMHx significant for type 2 diabetes, gout, hyperlipidemia, hypothyroidism, obstructive sleep apnea on CPAP, paroxysmal atrial fibrillation, chronic diastolic CHF, CKD stage III, pulmonary hypertension, obesity, GERD, chronic bilateral low back pain, history of CVA, history of gastric ulcer presenting from [facility] with lethargy. Patient was admitted on July 30, 2023 with UTI and sepsis and right ureteral calculus, had adenovirus infection and SAJAN with creatinine of 4.2 with septic shock requiring pressors, cultures growing VRE, E. coli and Proteus mirabilis in the urine and blood cultures growing E. coli. Antibiotics were tapered to IV ampicillin per ID to complete 14-day course and she is s/p right ureteral stent placement. kidney function improved and she was discharged to senior care on August 10, 2023. Acute metabolic encephalopathy, resolved -Secondary to underlying E. coli UTI, bacteremia, In the setting of indwelling ureteral stent, nephrolithiasis Sepsis, POA R iliacus/iliopsoas abscesses L5-S1 discitis and osteomyelitis Patient presented to the ED on September 10 with altered mental status/lethargy. It was thought secondary to UTI. CT abdomen and pelvis showed right nephroureteral stent in place. Patient underwent removal and stent exchange on September 16, 2023 MRI done for the back pain from September 14, 2023 showed L5-S1 discitis and osteomyelitis, 2 associated iliacus and iliopsoas fluid collection consistent with abscess. Lumbar CT repeated on September 22, 2023 did not show any significant change compared to MRI from September 14, 2023 Blood cultures from 09/10one set positive for E. coli Urine culture from 09/10E. coli, lactobacillus Repeat blood culture from 09/11no growth ESR on 09/2467, CRP5.83 Initially ID recommended patient to be started on IV ampicillin for 14 days on September 13, 2023. However, given the findings on the MRI showing discitis, osteomyelitis and abscesses. Previous attending discussed with infectious disease again and patient was recommended to be on IV Unasyn for total of [address] of the lumbar spine was done on August; findings were consistent with L5-S1 discitis and osteomyelitis as previous scans. There was associated right iliac us/iliopsoas fluid collection similar to previous scan. Patient is unable to undergo MRI due to inability to lie flat for several minutes. Discussion was done with infectious disease on September 28, 2023( Dr. Haney); he recommended that he would not change antibiotics at this time. He recommended to see if there is a possibility to obtain aspirate from the abscess seen on the CT. Discussed with interventional radiology SHEKHAR(Mark); he reports attempts could be made to obtain a sample from the abscess. Patient's PT/INR is therapeutic secondary to Coumadin. The PT/INR needs to be less than 1.5 before proceeding with IR intervention. Coumadin on hold- follow INR. History of paroxysmal atrial fibrillation On amiodarone and metoprolol and Coumadin holding coumadin in setting of need for procedure SAJAN on CKD stage III Creatinine up trended from 1.3-1.8 Likely secondary to hypotensive episode Nephrology was previously consulted Blood pressure overall improved Creatinine improved Continue monitor Avoid nephrotoxic agents Nephrology recs for discharge -Nephrology f/u with weekly BMP after discharge Pressure ulcer of right buttock, unstageable and cluster of 3 pressure ulcers on bilateral lower back, unstageable, all POA Patient has [id number] hospitalizations within the last few months leading to physical deconditioning. Patient bedbound and requires Ketty lift to get her out of the bed Continue PT OT Wound care consulted, appreciate recs Acute on chronic hyponatremia Presented with sodium of 118 Nephrology was consulted -was given IV fluids and Lasix. Sodium improved Continue to monitor Hyperkalemia Potassium 5.5 on admission Nephrology consulted, K now wnl Elevated troponin Troponin 16 mostly demand ischemia Obstructive sleep apnea CPAP nightly refused cpap says she was on cpap for last 5-6yrs but not using for last 6 weeks as mask was not fitting. She got new mask but not started using it yet as she has URI symptoms. Type 2 Diabetes Will hold home p.o. medications Sliding scale and lantus 5units daily for now Will monitor History of paroxysmal atrial fibrillation On amiodarone and metoprolol and Coumadin hold coumadin. Chronic diastolic CHF Was on spironolactone and Bumex last admission but stopped on discharge for hyponatremia and worsening kidney function CXR: mild pulmonary edema Continue on torsemide 20 mg once a day. Gout On allopurinol Depression recently started on Lexapro Hypothyroidism On Synthyroid Hyperlipidemia On statin GERD On omeprazole Hypertension Lisinopril and amlodipine were held at time of discharge last admission on metoprolol, continue DVT prophylaxis: Coumadin on hold Disposition:Anticipate transition to acute rehab when medically stable Admission and Anticipated Discharge Date Admission Date: September 11, 2023 Subjective Pt was seen in the AM. Laying in bed. Many questions about her upcoming procedure- advised to follow up with IR provider when seen. States having pain in the right buttock area. Otherwise denied acute concerns. Review of Systems Review of Systems: All systems reviewed & are unremarkable except as noted in Subjective Physical Exam Physical Exam: General: Alert, oriented. No acute distress Psych: Appropriate mood and affect Neuro: difficulty with movements in the bed HEENT: NC/AT CV: RRR Resp: no increased effort of breathing Abdomen: Soft, nontender Extremities: edema in lower extremities bilaterally, also slight erythema. Results & Data Results & Data Vital Signs (Past 12 Hours) Vital Signs Temp Pulse Pulse Resp BP Pulse Ox O2 Del Method 09/29/23 11:04 36.5 C 74 18 139/74 92 Room Air 09/29/23 10:18 70 09/29/23 07:17 36.6 C 79 18 115/63 95 Room Air Diagnostic Findings Abdomen/Pelvis CT 09/11/23 19:07 CT abd pelvis wo con CLINICAL HISTORY: stent, poss recurrent obstruction TECHNIQUE: Helical axial images of the abdomen and pelvis were obtained. Automated dose lowering techniques and/or adjustment according to patient size were utilized for this exam. This exam was performed without intravenous contrast. CT DOSE: 1961.81 mGy.cm COMPARISON: Comparison is made to CT abdomen pelvis 07/30/2023 FINDINGS: Lower chest: Bibasilar atelectasis versus scarring is seen. Cardiomegaly is seen. Liver: Unremarkable. No focal lesions are seen. Gallbladder and biliary tree: No calcified gallstones. Normal caliber wall. No intra- or extrahepatic biliary ductal dilation. Pancreas: Unremarkable, no focal lesions. Spleen: Unremarkable. Adrenals: Unremarkable. Kidneys and ureters: Right nephroureteral stent is seen. Bladder: Unremarkable. Reproductive organs: Unremarkable. Bowel: Diverticulosis is seen without diverticulitis. The appendix is normal. Lymph nodes Retroperitoneal: Unremarkable. Pelvic: Unremarkable. Mesenteric: Unremarkable. Peritoneum: Normal. Vessels: Atherosclerotic calcifications are seen. Abdominal wall: Unremarkable. Bones: Degenerative changes in the visualized spine. IMPRESSION: 1. No acute abnormality and in particular no evidence of right hydronephrosis. The nephroureteral stent remains in place. 2. Diverticulosis without diverticulitis. 3. Additional findings as above. ACT 112: Negative or not required by law. Electronically signed by: Tiburcio Casey M.D. 09/11/2023 8:[address] 09/11/23 19:07 CT head/brain wo con CLINICAL HISTORY: confusion Technique: Contiguous axial CT images of the head were acquired from the base of the skull to the vertex without intravenous contrast administration. Images were viewed in brain, subdural and bone windows. Automated dose lowering techniques and/or adjustment according to patient size were utilized for this exam. Comparison: Comparison is made to CT head 04/22/2021 Findings: Areas of decreased attenuation are present in the periventricular and subcortical white matter bilaterally consistent with small vessel ischemic disease. Generalized cerebral atrophy with commensurate enlargement of the ventricles, sulci, and cisterns is also present. There is no acute intracranial hemorrhage or evidence of acute territorial infarction. No shift of the midline structures, mass effect, or extra-axial abnormalities are shown. Atherosclerotic calcifications are present in the intracranial segments of the internal carotid arteries. Imaged portions of the paranasal sinuses and mastoid air cells are clear. The orbits appear normal. There are no acute fractures of the calvaria or scalp swelling. Impression: No acute intracranial hemorrhage, no evidence of acute territorial infarction or other acute intracranial disease process. ACT 112: Negative or not required by law. Electronically signed by: Tiburcio Casey M.D. 09/11/2023 8:05 PM Chest X-Ray 09/11/23 19:08 XR chest 1V portable CLINICAL HISTORY: Sepsis TECHNIQUE: Single frontal radiograph of the chest was obtained. Comparison: Comparison is made to chest radiograph 08/05/2023 FINDINGS: No lines and tubes are seen. Calcified aortic knob is seen. The lungs are clear. No evidence of pleural effusion or pneumothorax. IMPRESSION: No acute abnormalities and in particular no radiographic evidence of pneumonia. ACT 112: Negative or not required by law. Electronically signed by: Tiburcio Casey M.D. 09/12/2023 7:17 AM Lumbar Spine MRI 09/14/23 11:21 MRI OF THE LUMBAR SPINE WITHOUT CONTRAST CLINICAL HISTORY: r/o infection COMPARISON STUDY: Lumbar spine MRI February 05, 2020. CT of the abdomen and pelvis September 11, 2023. TECHNIQUE: Utilizing a 1.5 Jessika magnet and dedicated coil, multiplanar, multiecho imaging of the lumbar spine was performed without IV contrast. FINDINGS: For purposes of numbering on this exam, the L5-S1 disc space is assigned to axial image 33 of 40. There is moderate lumbar spine levoscoliosis. Axial T1 sequence and postcontrast imaging of the lumbar spine could not be obtained. Patient was unable to tolerate further imaging. Significant fluid within the L5- S1 disc space is noted with widening of the disc space. This is new since MRI of February 04, 2022. There is associated erosion of the inferior endplate of L5 and superior endplate of S1. Although suboptimally assessed given lack of postcontrast imaging, no epidural fluid collection is identified. Edema within the posterior elements at this level is noted. Of note, two fluid and gas containing right iliopsoas/iliacus fluid collections are present, on axial sequence image 40 of 40. These are partially imaged. The larger collection measures at least 2 x 2 cm. The smaller collection measures at least 1.8 x 1.3 cm. There is a small 1 cm left paravertebral fluid collection on image 30. Fat necrosis within the subcutaneous tissues of the lower back is present. L1-2: There is severe disc space narrowing with facet arthrosis. Central canal is patent. There is moderate bilateral neural foraminal stenosis. L2-3: Severe disc space narrowing is noted with facet arthrosis and ligamentous hypertrophy. There is moderate narrowing of the central canal and left neural f oramen. There is severe right neural foraminal stenosis. L3-4: Severe disc space narrowing is noted with facet arthrosis and ligamentous hypertrophy. There is moderate to severe central canal stenosis. Severe right and moderate left neural foraminal stenosis. L4-5: Grade I anterolisthesis is due to severe facet arthrosis with ligamentous hypertrophy. There is moderate to severe central canal stenosis. There is moderate to severe bilateral neural foraminal stenosis. L5-S1: Increased fluid within the disc space is noted with disc space widening. There is erosion of the adjacent endplates. Severe facet arthrosis is noted. There is mild central canal stenosis. Moderate to severe bilateral neural foraminal stenosis is present. IMPRESSION: 1. Findings consistent with L5-S1 discitis and osteomyelitis. Two associated right iliacus/iliopsoas fluid collections consistent with abscesses, partially imaged on this exam. The larger abscess measures at least 2 x 2 cm. Edema extends into the bilateral facet joints. This may represent extension of the infectious process or facet arthrosis. No well-defined epidural fluid collection to suggest epidural abscess although evaluation compromised given lack of postcontrast imaging. Small 1 cm left paravertebral abscess. This finding will be called/faxed to ordering provider at time of dictation. 2. Severe multilevel degenerative disc disease and facet arthrosis within the lumbar spine, as described above. Multilevel central canal and neural foraminal stenosis. 3. Moderate lumbar spine levoscoliosis. 4. Incomplete lumbar spine MRI, as detailed above. Short-term follow-up MRI with and without contrast could be obtained to exclude interval development of an epidural abscess. No definite epidural abscess on this exam. ACT 112: Negative or not required by law. Electronically signed by: Gui Berumen M.D. 09/14/2023 6:03 PM Chest X-Ray 09/19/23 15:25 XR chest 1V portable HISTORY: 73 years-old Female Right PICC line placement. Status post placement of a right-sided PICC COMPARISON: 09/11/2023 TECHNIQUE: AP view of the chest FINDINGS: Right-sided PICC is noted with distal tip in expected location of the mid SVC. No pneumothorax. Cardiac silhouette is enlarged. Pulmonary vascular congestion. A pneumothorax. Probable trace pleural effusions. Bones appear grossly intact. IMPRESSION: Status post placement of a right-sided PICC. No postprocedural pneumothorax. ACT 112: Negative or not required by law. The above report was generated using voice recognition software. It may contain grammatical, syntax or spelling errors. Electronically signed by: Balwinder Zimmerman M.D. 09/19/2023 4:37 PM Chest X-Ray 09/21/23 10:43 XR chest 1V portable CLINICAL HISTORY: f/u volume status TECHNIQUE: Single frontal radiograph of the chest was obtained. Comparison: Comparison is made to chest radiograph 09/19/2023 FINDINGS: Lines and tubes are stable. Cardiomegaly is noted. Airspace opacities are seen in the right upper lobe and left lower lobe, unchanged. Prominence of the pulmonary vasculature is seen. No evidence of pleural effusion or pneumothorax. IMPRESSION: 1. Cardiomegaly and mild pulmonary edema. 2. Airspace opacities are essentially unchanged from prior exam. ACT 112: Negative or not required by law. Electronically signed by: Tiburcio Casey M.D. 09/21/2023 12:11 PM Renal Ultrasound 09/21/23 12:16 US renal/blad retro comp CLINICAL HISTORY: ACUTE KIDNEY INJURY TECHNIQUE: Multiple sonographic real-time images of the kidneys and bladder were obtained. COMPARISON: None available at the time of this dictation. FINDINGS: The right kidney measures 10.6 cm in length, and the left kidney measures 13.2 cm in length. The right kidney is normal in size, contour, cortical thickness, and echogenicity. No hydronephrosis is identified. No renal lesion is identified. The left kidney is normal in size, contour, cortical thickness and echogenicity. No hydronephrosis is identified. A cyst is noted measuring 1.7 cm. The bladder is underdistended limiting visualization. IMPRESSION: Unremarkable renal ultrasound. ACT 112: Negative or not required by law. Electronically signed by: Tiburcio Casey M.D. 09/22/2023 3:[address] 09/22/23 07:19 CT OF THE LUMBAR SPINE CLINICAL HISTORY: ff up discitis, iliopsoas abscess COMPARISON STUDY: CT of the abdomen and pelvis September 11, 2023. Lumbar spine MRI September 14, 2023. TECHNIQUE: Helical axial images of the lumbar spine were obtained. Sagittal and coronal reconstructions were viewed. Automated exposure control was utilized for the study. A dose lowering technique was utilized adhering to the principles of ALARA. FINDINGS: For purposes of numbering on this exam, the L5-S1 disc space is assigned to axial image 306 of 382. Widening of the L5-S1 disc space is similar to prior CT and MRI. Erosion of the inferior endplate of L5 and superior endplate of S1 is also unchanged. The findings represent discitis/osteomyelitis at the L5-S1 level. A small left anterior paravertebral fluid collection measuring 1.1 cm on image 286 of 382 is similar to prior MRI and CT. Inflammation anterior to the right SI joint is again noted, related to discitis and osteomyelitis. The previously described right iliopsoas/iliacus fluid collections are partially imaged on this exam. These are suboptimally assessed on unenhanced study. These measure up to 2.3 cm. Visualized portions are similar to prior CT and MRI. No new sites of inflammation are present. Left renal calculi are incidentally noted No acute lumbar spine fractures are present. Severe multilevel disc space narrowing is again noted with severe facet arthrosis. The central canal and neural foramen are suboptimally assessed given CT technique. Sensitivity for detection of epidural abscess is significantly diminished on this exam. IMPRESSION: 1. Findings consistent L5-S1 discitis/osteomyelitis, similar in appearance to CT of September 11, 2023 and MRI of September 14, 2023. Decreased sensitivity for detection of epidural abscess given CT technique. No significant change in a small left anterior paravertebral abscess measuring 1.1 cm. Previously described right iliopsoas/iliacus abscesses are partially imaged on this exam but visualized portions are similar to prior CT and MRI. 2. No acute fractures within the lumbar spine. Severe multilevel degenerative changes within the lumbar spine. 3. Moderate lumbar spine levoscoliosis. ACT 112: Negative or not required by law. Electronically signed by: Gui Berumen M.D. 09/22/2023 11:[address] 09/28/23 06:[address] WITH CONTRAST CLINICAL HISTORY: follow up discitis, iliopsoas abscess COMPARISON STUDY: Lumbar spine MRI September 14, 2023. Lumbar spine CT September 22, 2023. TECHNIQUE: Axial images of the lumbar spine were obtained following intravenous injection of 92 cc of Optiray 320 IV. Sagittal and coronal reconstructions were viewed. Automated exposure control was utilized for the study. A dose lowering technique was utilized adhering to the principles of ALARA. FINDINGS: Widening of the L5-S1 disc space with erosion of the inferior endplate of L5 and superior endplate of S1 is similar to prior CT and MRI of the lumbar spine. This represents discitis/osteomyelitis. Sensitivity for detection of epidural abscess is significantly diminished given CT technique and artifact on this exam. Possible anterior epidural abnormality at the L5-S1 level is noted on sagittal reconstructed image 35 of 79. There is central canal stenosis at this level, also suboptimally assessed by CT. A left anterior paravertebral fluid collection measuring 1.2 cm on image 237 is unchanged. The previously described right iliacus/iliopsoas fluid collections are similar to prior exam, measuring up to 2.1 x 1.7 cm. No new fluid collections are present. Several left renal calculi are again noted. Severe multilevel degenerative changes within the lumbar spine are present. There is moderate lumbar spine levoscoliosis. No acute fractures are present. IMPRESSION: 1. Findings consistent with L5-S1 discitis and osteomyelitis. Associated right iliacus/iliopsoas fluid collections consistent with abscesses are partially imaged on this exam but visualized portions appear similar to prior CT and MRI. Sensitivity for detection of epidural abscess is significantly diminished on this exam. Equivocal anterior epidural abnormality which could reflect phlegmon or developing epidural abscess. This could be further assessed with MRI of the lumbar spine with and without contrast. 2. No change in a small left anterior paravertebral abscess. 3. Severe multilevel degenerative changes within lumbar spine. ACT 112: Negative or not required by law. Electronically signed by: Gui Berumen M.D. 09/28/2023 8:32 AM
[2023-09-30 05:51] LABS: Basophils # (auto) 0.08 K/uL (0.00-0.20); Basophils % (auto) 1.2 %; Eosinophils # (auto) 0.08 K/uL (0.00-0.50); Eosinophils % (auto) 1.2 %; Hematocrit (blood only) 23.6 % (37.0-47.0); Hemoglobin 7.2 g/dl (12.0-16.0); Immature Granulocytes # (auto) 0.15 K/uL (0.01-0.20); Immature Granulocytes % (auto) 2.3 %; Lymphocytes # (auto) 1.95 K/uL (1.20-3.40); Lymphocytes % (auto) 29.7 %; Mean Corpuscular Hemoglobin 27.1 pg (25.0-34.0); Mean Corpuscular Hgb Conc 30.5 g/dL (32.0-36.0); Mean Corpuscular Volume 88.7 fL (80.0-100.0); Mean Platelet Volume 9.6 fL (9.4-12.4); Monocytes # (auto) 0.38 K/uL (0.11-0.59); Monocytes % (auto) 5.8 %; Neutrophils # (auto) 3.92 K/uL (1.40-6.50); Neutrophils % (auto) 59.8 %; Platelet Count 211 K/uL (130-400); RDW Coefficient of Variation 19.1 % (11.5-14.5); RDW Standard Deviation 60.8 fL (36.4-46.3); Red Blood Count 2.66 M/uL (4.20-5.40); White Blood Count 6.56 K/ul (4.8-10.8)
[2023-09-30 06:08] LABS: Albumin Globulin Ratio 0.8 (0.9-2); Albumin Level 2.2 gm/dl (3.4-5.0); BUN Creatinine Ratio 28.4 (10-20); Bilirubin,Total 0.2 mg/dl (0.2-1.0); Calcium 8.3 mg/dl (8.6-10.3); Creatinine Clr Calc Pharmacy 51.6 ml/min; Est GFR (African American) 54.1 ml/min; Est GFR (Non-African American) 46.7 ml/min; Globulin 2.9 gm/dl (2.5-4.0); Magnesium 1.8 mg/dl (1.7-2.4); Phosphorus 4.1 mg/dl (2.5-4.9); Potassium 3.5 mmol/L (3.5-5.1); Total Protein 5.1 gm/dl (6.0-8.3)
[2023-09-30 06:18] LABS: INR 1.9 (0.9-1.1); Prothrombin Time 19.4 Seconds (9.0-12.0)
[2023-09-30 06:44] LABS: Basophilic Stippling 1+; Polychromasia 1+; Tear Drop Cells 1+
--- NOTE | 2023-09-30 14:52 | Hospitalist Progress Note ---
Date of Service September 30, 2023 Assessment & Plan (1) AMS (altered mental status): Plan: 73 yo F with PMHx significant for type 2 diabetes, gout, hyperlipidemia, hypothyroidism, obstructive sleep apnea on CPAP, paroxysmal atrial fibrillation, chronic diastolic CHF, CKD stage III, pulmonary hypertension, obesity, GERD, chronic bilateral low back pain, history of CVA, history of gastric ulcer presenting from [facility] with lethargy. Patient was admitted on July 30, 2023 with UTI and sepsis and right ureteral calculus, had adenovirus infection and SAJAN with creatinine of 4.2 with septic shock requiring pressors, cultures growing VRE, E. coli and Proteus mirabilis in the urine and blood cultures growing E. coli. Antibiotics were tapered to IV ampicillin per ID to complete 14-day course and she is s/p right ureteral stent placement. kidney function improved and she was discharged to [facility] on August 10, 2023. Acute metabolic encephalopathy, resolved -Secondary to underlying E. coli UTI, bacteremia, In the setting of indwelling ureteral stent, nephrolithiasis Sepsis, POA R iliacus/iliopsoas abscesses L5-S1 discitis and osteomyelitis Patient presented to the ED on September 10 with altered mental status/lethargy. It was thought secondary to UTI. CT abdomen and pelvis showed right nephroureteral stent in place. Patient underwent removal and stent exchange on September 16, 2023 MRI done for the back pain from September 14, 2023 showed L5-S1 discitis and osteomyelitis, 2 associated iliacus and iliopsoas fluid collection consistent with abscess. Lumbar CT repeated on September 22, 2023 did not show any significant change compared to MRI from September 14, 2023 Blood cultures from 09/10one set positive for E. coli Urine culture from 09/10E. coli, lactobacillus Repeat blood culture from 09/11no growth ESR on 09/2467, CRP5.83 Initially ID recommended patient to be started on IV ampicillin for 14 days on September 13, 2023. However, given the findings on the MRI showing discitis, osteomyelitis and abscesses. Previous attending discussed with infectious disease again and patient was recommended to be on IV Unasyn for total of [address] of the lumbar spine was done on August; findings were consistent with L5-S1 discitis and osteomyelitis as previous scans. There was associated right iliac us/iliopsoas fluid collection similar to previous scan. Patient is unable to undergo MRI due to inability to lie flat for several minutes. previous provider had discussion with infectious disease on September 28, 2023( Dr. Haney); he recommended that he would not change antibiotics at this time. He recommended to see if there is a possibility to obtain aspirate from the abscess seen on the CT. previous provider discussed with interventional radiology SHEKHAR(Mark); he reports attempts could be made to obtain a sample from the abscess. -pt tentatively scheduled to have procedure on 10/01/23 Patient's INR was therapeutic secondary to Coumadin. The PT/INR needs to be less than 1.5 before proceeding with IR intervention. Coumadin on hold- follow INR. Currently 1.9. Per IR no need for Vit K. History of paroxysmal atrial fibrillation On amiodarone and metoprolol and Coumadin holding coumadin in setting of need for procedure SAJAN on CKD stage III Creatinine up trended from 1.3-1.8 Likely secondary to hypotensive episode Nephrology was previously consulted Blood pressure overall improved Creatinine improved Continue monitor Avoid nephrotoxic agents Nephrology recs for discharge -Nephrology f/u with weekly BMP after discharge Pressure ulcer of right buttock, unstageable and cluster of 3 pressure ulcers on bilateral lower back, unstageable, all POA Patient has [id number] hospitalizations within the last few months leading to physical deconditioning. Patient bedbound and requires Ketty lift to get her out of the bed Continue PT OT Wound care consulted, appreciate recs Acute on chronic hyponatremia Presented with sodium of 118 Nephrology was consulted -was given IV fluids and Lasix. Sodium improved Continue to monitor Hyperkalemia Potassium 5.5 on admission Nephrology consulted, K now wnl Elevated troponin Troponin 16 mostly demand ischemia Obstructive sleep apnea CPAP nightly refused cpap says she was on cpap for last 5-6yrs but not using for last 6 weeks as mask was not fitting. She got new mask but not started using it yet as she has URI symptoms. Type 2 Diabetes Will hold home p.o. medications Sliding scale and lantus 5units daily for now Will monitor History of paroxysmal atrial fibrillation On amiodarone and metoprolol and Coumadin hold coumadin. Chronic diastolic CHF Was on spironolactone and Bumex last admission but stopped on discharge for hyponatremia and worsening kidney function CXR: mild pulmonary edema Continue on torsemide 20 mg once a day. Gout On allopurinol Depression recently started on Lexapro Hypothyroidism On Synthyroid Hyperlipidemia On statin GERD On omeprazole Hypertension Lisinopril and amlodipine were held at time of discharge last admission on metoprolol, continue DVT prophylaxis: Coumadin on hold Disposition:Anticipate transition to acute rehab when medically stable Admission and Anticipated Discharge Date Admission Date: September 11, 2023 Subjective pt was seen in the AM. Stated that she had her questions answered by IR who had seen her previously. Buttock pain still persistent but improved Review of Systems Review of Systems: All systems reviewed & are unremarkable except as noted in Subjective Physical Exam Physical Exam: General: Alert, oriented. No acute distress Psych: Appropriate mood and affect Neuro: difficulty with movements in the bed HEENT: NC/AT CV: RRR, murmur Resp: no increased effort of breathing Abdomen: Soft, nontender Extremities: edema in lower extremities bilaterally, also slight erythema. Results & Data Results & Data Vital Signs (Past 12 Hours) Vital Signs Temp Pulse Pulse Resp BP BP Pulse Ox 09/30/23 11:15 36.4 C L 77 19 106/65 95 09/30/23 08:08 36.7 C 90 17 113/57 L 93 09/30/23 06:00 75 09/30/23 03:02 36.5 C 75 17 109/56 L 93 O2 Del Method 09/30/23 11:15 Room Air 09/30/23 08:08 Room Air 09/30/23 06:00 09/30/23 03:02 Room Air
[2023-10-01 07:14] LABS: Basophils # (auto) 0.07 K/uL (0.00-0.20); Basophils % (auto) 1.1 %; Eosinophils # (auto) 0.19 K/uL (0.00-0.50); Eosinophils % (auto) 3.1 %; Hematocrit (blood only) 24.3 % (37.0-47.0); Hemoglobin 7.4 g/dl (12.0-16.0); Immature Granulocytes # (auto) 0.12 K/uL (0.01-0.20); Lymphocytes # (auto) 1.72 K/uL (1.20-3.40); Lymphocytes % (auto) 28.2 %; Mean Corpuscular Hemoglobin 27.2 pg (25.0-34.0); Mean Corpuscular Hgb Conc 30.5 g/dL (32.0-36.0); Mean Corpuscular Volume 89.3 fL (80.0-100.0); Mean Platelet Volume 9.9 fL (9.4-12.4); Monocytes # (auto) 0.37 K/uL (0.11-0.59); Monocytes % (auto) 6.1 %; Neutrophils # (auto) 3.63 K/uL (1.40-6.50); Neutrophils % (auto) 59.5 %; Platelet Count 234 K/uL (130-400); RDW Coefficient of Variation 19.3 % (11.5-14.5); RDW Standard Deviation 60.8 fL (36.4-46.3); Red Blood Count 2.72 M/uL (4.20-5.40)
[2023-10-01 07:43] LABS: Anisocytosis Present; Polychromasia 1+; Tear Drop Cells 1+
[2023-10-01 07:51] LABS: Albumin Globulin Ratio 0.7 (0.9-2); Albumin Level 2.1 gm/dl (3.4-5.0); BUN Creatinine Ratio 28.2 (10-20); Bilirubin,Total 0.3 mg/dl (0.2-1.0); Calcium 8.1 mg/dl (8.6-10.3); Creatinine Clr Calc Pharmacy 54.3 ml/min; Est GFR (African American) 57.7 ml/min; Est GFR (Non-African American) 49.8 ml/min; Globulin 2.9 gm/dl (2.5-4.0); Magnesium 1.7 mg/dl (1.7-2.4); Phosphorus 3.9 mg/dl (2.5-4.9); Potassium 3.5 mmol/L (3.5-5.1)
[2023-10-01 08:05] LABS: INR 1.6 (0.9-1.1); Prothrombin Time 16.6 Seconds (9.0-12.0)
[2023-10-01] MEDS: AMPICILLIN/SULBACTAM SOD 3,000 MG in SODIUM CHLOR 0.9% MINI-B 100 ML IV SCH (13:15)
--- NOTE | 2023-10-01 13:20 | CT Scan Report ---
CT-guided right iliacus muscle fluid collection aspiration INDICATION: L5-S1 discitis/osteomyelitis with associated right iliacus/iliopsoas fluid collection PROCEDURE: Procedure and risks were explained. Informed consent was obtained. A final timeout was com pleted. The patient was placed supine on the CT exam table. The right lower quadrant was prepped and draped in sterile fashion. 1% lidocaine was utilized for skin anesthesia. Utilizing CT guidance, an 18-gauge 15 cm Chiba needle was advanced into the right iliacus fluid colle ction. Approximately 13 mL of purulent fluid was aspirated and sent to the lab for analysis. The need le was removed and Band-Aid applied. The patient tolerated the procedure well. Post CT scan demonstra maria guadalupe no immediate complications. Vital signs will be monitored on the floor postprocedure. IMPRESSION: CT-guided right iliacus muscle fluid collection aspiration as above. Performed, dictated, and signed by Jp Edwards PA-C; to be co-signed by Dr. Tiburcio Casey. Electronically signed by: Tiburcio Casey M.D. 10/01/2023 8:39 PM
--- NOTE | 2023-10-01 15:20 | Hospitalist Progress Note ---
Date of Service October 01, 2023 Assessment & Plan (1) AMS (altered mental status): Plan: 73 yo F with PMHx significant for type 2 diabetes, gout, hyperlipidemia, hypothyroidism, obstructive sleep apnea on CPAP, paroxysmal atrial fibrillation, chronic diastolic CHF, CKD stage III, pulmonary hypertension, obesity, GERD, chronic bilateral low back pain, history of CVA, history of gastric ulcer presenting from [facility] with lethargy. Patient was admitted on July 30, 2023 with UTI and sepsis and right ureteral calculus, had adenovirus infection and SAJAN with creatinine of 4.2 with septic shock requiring pressors, cultures growing VRE, E. coli and Proteus mirabilis in the urine and blood cultures growing E. coli. Antibiotics were tapered to IV ampicillin per ID to complete 14-day course and she is s/p right ureteral stent placement. kidney function improved and she was discharged to [facility] on August 10, 2023. Acute metabolic encephalopathy, resolved -Secondary to underlying E. coli UTI, bacteremia, In the setting of indwelling ureteral stent, nephrolithiasis Sepsis, POA R iliacus/iliopsoas abscesses L5-S1 discitis and osteomyelitis Patient presented to the ED on September 10 with altered mental status/lethargy. It was thought secondary to UTI. CT abdomen and pelvis showed right nephroureteral stent in place. Patient underwent removal and stent exchange on September 16, 2023 MRI done for the back pain from September 14, 2023 showed L5-S1 discitis and osteomyelitis, 2 associated iliacus and iliopsoas fluid collection consistent with abscess. Lumbar CT repeated on September 22, 2023 did not show any significant change compared to MRI from September 14, 2023 Blood cultures from 09/10one set positive for E. coli Urine culture from 09/10E. coli, lactobacillus Repeat blood culture from 09/11no growth ESR on 09/2467, CRP5.83 Initially ID recommended patient to be started on IV ampicillin for 14 days on September 13, 2023. However, given the findings on the MRI showing discitis, osteomyelitis and abscesses. Previous attending discussed with infectious disease again and patient was recommended to be on IV Unasyn for total of [address] of the lumbar spine was done on August; findings were consistent with L5-S1 discitis and osteomyelitis as previous scans. There was associated right iliac us/iliopsoas fluid collection similar to previous scan. Patient is unable to undergo MRI due to inability to lie flat for several minutes. previous provider had discussion with infectious disease on September 28, 2023( Dr. Haney); he recommended that he would not change antibiotics at this time. He recommended to see if there is a possibility to obtain aspirate from the abscess seen on the CT. previous provider discussed with interventional radiology SHEKHAR(Mark); he reports attempts could be made to obtain a sample from the abscess. -pt s/p IR drainage on 10/01/23, cultures pending Resume coumadin Continue on IV Unasyn, follow cultures History of paroxysmal atrial fibrillation On amiodarone and metoprolol and Coumadin held coumadin in setting of need for procedure Resumed coumadin on 09/30 SAJAN on CKD stage III Creatinine up trended from 1.3-1.8 Likely secondary to hypotensive episode Nephrology was previously consulted Blood pressure overall improved Creatinine improved Continue monitor Avoid nephrotoxic agents Nephrology recs for discharge -Nephrology f/u with weekly BMP after discharge Pressure ulcer of right buttock, unstageable and cluster of 3 pressure ulcers on bilateral lower back, unstageable, all POA Patient has [id number] hospitalizations within the last few months leading to physical deconditioning. Patient bedbound and requires Ketty lift to get her out of the bed Continue PT OT Wound care consulted, appreciate recs Acute on chronic hyponatremia Presented with sodium of 118 Nephrology was consulted -was given IV fluids and Lasix. Sodium improved Continue to monitor Hyperkalemia Potassium 5.5 on admission Nephrology consulted, K now wnl Elevated troponin Troponin 16 mostly demand ischemia Obstructive sleep apnea CPAP nightly refused cpap says she was on cpap for last 5-6yrs but not using for last 6 weeks as mask was not fitting. She got new mask but not started using it yet as she has URI symptoms. Type 2 Diabetes Will hold home p.o. medications Sliding scale and lantus 5units daily for now Will monitor History of paroxysmal atrial fibrillation On amiodarone and metoprolol and Coumadin hold coumadin. Chronic diastolic CHF Was on spironolactone and Bumex last admission but stopped on discharge for hyponatremia and worsening kidney function CXR: mild pulmonary edema Continue on torsemide 20 mg once a day. Gout On allopurinol Depression recently started on Lexapro Hypothyroidism On Synthyroid Hyperlipidemia On statin GERD On omeprazole Hypertension Lisinopril and amlodipine were held at time of discharge last admission on metoprolol, continue DVT prophylaxis: Coumadin on hold Disposition:Anticipate transition to acute rehab when medically stable Admission and Anticipated Discharge Date Admission Date: September 11, 2023 Subjective Pt was seen while laying in bed, post procedure. States that she is concerned about the swelling in her feet. Denied acute concerns about Physical Exam Physical Exam: General: Alert, oriented. No acute distress Psych: Appropriate mood and affect Neuro: difficulty with movements in the bed HEENT: NC/AT CV: RRR, murmur Resp: no increased effort of breathing Abdomen: Soft, nontender Extremities: edema in lower extremities bilaterally, also slight erythema. Results & Data Results & Data Vital Signs (Past 12 Hours) Vital Signs Temp Pulse Pulse Resp BP BP Pulse Ox 10/01/23 12:01 36.7 C 89 16 125/69 95 10/01/23 11:29 36.6 C 96 H 16 131/81 94 10/01/23 11:03 36.7 C 90 16 137/77 97 10/01/23 09:49 90 10/01/23 07:29 36.6 C 69 18 102/66 94 O2 Del Method 10/01/23 12:01 Room Air 10/01/23 11:29 Room Air 10/01/23 11:03 Room Air 10/01/23 09:49 10/01/23 07:29 Room Air
[2023-10-02] MEDS: oxyCODONE HCL IR 5 MG TAB (IMMEDIATE RELEASE) PO PRN (02:25)
[2023-10-02 07:39] LABS: Basophils # (auto) 0.06 K/uL (0.00-0.20); Eosinophils # (auto) 0.17 K/uL (0.00-0.50); Eosinophils % (auto) 2.9 %; Hematocrit (blood only) 23.9 % (37.0-47.0); Hemoglobin 7.3 g/dl (12.0-16.0); Immature Granulocytes % (auto) 1.7 %; Lymphocytes # (auto) 1.74 K/uL (1.20-3.40); Lymphocytes % (auto) 29.5 %; Mean Corpuscular Hemoglobin 27.3 pg (25.0-34.0); Mean Corpuscular Hgb Conc 30.5 g/dL (32.0-36.0); Mean Corpuscular Volume 89.5 fL (80.0-100.0); Mean Platelet Volume 9.4 fL (9.4-12.4); Monocytes # (auto) 0.37 K/uL (0.11-0.59); Monocytes % (auto) 6.3 %; Neutrophils # (auto) 3.45 K/uL (1.40-6.50); Neutrophils % (auto) 58.6 %; Platelet Count 236 K/uL (130-400); RDW Coefficient of Variation 19.4 % (11.5-14.5); RDW Standard Deviation 62.7 fL (36.4-46.3); Red Blood Count 2.67 M/uL (4.20-5.40); White Blood Count 5.89 K/ul (4.8-10.8)
[2023-10-02 08:04] LABS: INR 1.4 (0.9-1.1)
[2023-10-02 08:11] LABS: RBC Morphology Unremarkable
[2023-10-02 08:52] LABS: Calcium 8.1 mg/dl (8.6-10.3); Potassium 3.4 mmol/L (3.5-5.1)
[2023-10-02 08:57] LABS: Albumin Level 2.1 gm/dl (3.4-5.0); Bilirubin,Total 0.3 mg/dl (0.2-1.0)
[2023-10-02 08:58] LABS: Albumin Globulin Ratio 0.7 (0.9-2); BUN Creatinine Ratio 26.2 (10-20); Creatinine Clr Calc Pharmacy 55.8 ml/min; Est GFR (African American) 59.6 ml/min; Est GFR (Non-African American) 51.5 ml/min; Phosphorus 3.9 mg/dl (2.5-4.9); Total Protein 5.1 gm/dl (6.0-8.3)
[2023-10-02 09:18] LABS: Magnesium 1.7 mg/dl (1.7-2.4)
[2023-10-02] MEDS: POTASSIUM CHLORIDE CRTAB 20 MEQ TABCR PO STA (09:50)
--- NOTE | 2023-10-02 13:52 | Hospitalist Progress Note ---
Date of Service October 02, 2023 Assessment & Plan (1) AMS (altered mental status): Plan: 73 yo F with PMHx significant for type 2 diabetes, gout, hyperlipidemia, hypothyroidism, obstructive sleep apnea on CPAP, paroxysmal atrial fibrillation, chronic diastolic CHF, CKD stage III, pulmonary hypertension, obesity, GERD, chronic bilateral low back pain, history of CVA, history of gastric ulcer presenting from [facility] with lethargy. Patient was admitted on July 30, 2023 with UTI and sepsis and right ureteral calculus, had adenovirus infection and SAJAN with creatinine of 4.2 with septic shock requiring pressors, cultures growing VRE, E. coli and Proteus mirabilis in the urine and blood cultures growing E. coli. Antibiotics were tapered to IV ampicillin per ID to complete 14-day course and she is s/p right ureteral stent placement. kidney function improved and she was discharged to [facility] on August 10, 2023. Acute metabolic encephalopathy, resolved -Secondary to underlying E. coli UTI, bacteremia, In the setting of indwelling ureteral stent, nephrolithiasis Sepsis, POA R iliacus/iliopsoas abscesses L5-S1 discitis and osteomyelitis Patient presented to the ED on September 10 with altered mental status/lethargy. It was thought secondary to UTI. CT abdomen and pelvis showed right nephroureteral stent in place. Patient underwent removal and stent exchange on September 16, 2023 MRI done for the back pain from September 14, 2023 showed L5-S1 discitis and osteomyelitis, 2 associated iliacus and iliopsoas fluid collection consistent with abscess. Lumbar CT repeated on September 22, 2023 did not show any significant change compared to MRI from September 14, 2023 Blood cultures from 09/10one set positive for E. coli Urine culture from 09/10E. coli, lactobacillus Repeat blood culture from 09/11no growth ESR on 09/2467, CRP5.83 Initially ID recommended patient to be started on IV ampicillin for 14 days on September 13, 2023. However, given the findings on the MRI showing discitis, osteomyelitis and abscesses. Previous attending discussed with infectious disease again and patient was recommended to be on IV Unasyn for total of [address] of the lumbar spine was done on August; findings were consistent with L5-S1 discitis and osteomyelitis as previous scans. There was associated right iliac us/iliopsoas fluid collection similar to previous scan. Patient is unable to undergo MRI due to inability to lie flat for several minutes. previous provider had discussion with infectious disease on September 28, 2023( Dr. Haney); he recommended that he would not change antibiotics at this time. He recommended to see if there is a possibility to obtain aspirate from the abscess seen on the CT. previous provider discussed with interventional radiology SHEKHAR(Mark); he reports attempts could be made to obtain a sample from the abscess. -pt s/p IR drainage on 10/01/23, cultures pending Resume coumadin Continue on IV Unasyn, follow cultures History of paroxysmal atrial fibrillation On amiodarone and metoprolol and Coumadin held coumadin in setting of need for procedure Resumed coumadin on 09/30 SAJAN on CKD stage III Creatinine up trended from 1.3-1.8 Likely secondary to hypotensive episode Nephrology was previously consulted Blood pressure overall improved Creatinine improved Continue monitor Avoid nephrotoxic agents Nephrology recs for discharge -Nephrology f/u with weekly BMP after discharge Pressure ulcer of right buttock, unstageable and cluster of 3 pressure ulcers on bilateral lower back, unstageable, all POA Patient has [id number] hospitalizations within the last few months leading to physical deconditioning. Patient bedbound and requires Ketty lift to get her out of the bed Continue PT OT Wound care consulted, appreciate recs Acute on chronic hyponatremia Presented with sodium of 118 Nephrology was consulted -was given IV fluids and Lasix. Sodium improved Continue to monitor Hyperkalemia Potassium 5.5 on admission Nephrology consulted, K now wnl Elevated troponin Troponin 16 mostly demand ischemia Obstructive sleep apnea CPAP nightly refused cpap says she was on cpap for last 5-6yrs but not using for last 6 weeks as mask was not fitting. She got new mask but not started using it yet as she has URI symptoms. Type 2 Diabetes Will hold home p.o. medications Sliding scale and lantus 5units daily for now Will monitor History of paroxysmal atrial fibrillation On amiodarone and metoprolol and Coumadin hold coumadin. Chronic diastolic CHF Was on spironolactone and Bumex last admission but stopped on discharge for hyponatremia and worsening kidney function CXR: mild pulmonary edema Continue on torsemide 20 mg once a day. Gout On allopurinol Depression recently started on Lexapro Hypothyroidism On Synthyroid Hyperlipidemia On statin GERD On omeprazole Hypertension Lisinopril and amlodipine were held at time of discharge last admission on metoprolol, continue DVT prophylaxis: Coumadin on hold Disposition:Anticipate transition to acute rehab when medically stable Admission and Anticipated Discharge Date Admission Date: September 11, 2023 Subjective Pt was seen while laying in bed Denied concerns Review of Systems Review of Systems: All systems reviewed & are unremarkable except as noted in Subjective Physical Exam Physical Exam: General: Alert, oriented. No acute distress Psych: Appropriate mood and affect Neuro: difficulty with movements in the bed HEENT: NC/AT CV: RRR, murmur Resp: no increased effort of breathing Abdomen: Soft, nontender Extremities: edema in lower extremities bilaterally, also slight erythema. Results & Data Results & Data Vital Signs (Past 12 Hours) Vital Signs Temp Pulse Pulse Resp BP Pulse Ox O2 Del Method 10/02/23 11:10 36.6 C 93 H 19 111/45 L 94 Room Air 10/02/23 09:06 76 10/02/23 09:06 Room Air 10/02/23 07:11 36.5 C 82 18 103/40 L 90 Room Air 10/02/23 03:06 36.6 C 75 18 125/70 92 Room Air
[2023-10-03 06:56] LABS: Basophils # (auto) 0.06 K/uL (0.00-0.20); Eosinophils # (auto) 0.18 K/uL (0.00-0.50); Eosinophils % (auto) 3.1 %; Hematocrit (blood only) 24.3 % (37.0-47.0); Hemoglobin 7.5 g/dl (12.0-16.0); Immature Granulocytes # (auto) 0.08 K/uL (0.01-0.20); Immature Granulocytes % (auto) 1.4 %; Lymphocytes % (auto) 30.5 %; Mean Corpuscular Hemoglobin 27.7 pg (25.0-34.0); Mean Corpuscular Hgb Conc 30.9 g/dL (32.0-36.0); Mean Corpuscular Volume 89.7 fL (80.0-100.0); Mean Platelet Volume 9.3 fL (9.4-12.4); Monocytes # (auto) 0.35 K/uL (0.11-0.59); Monocytes % (auto) 5.9 %; Neutrophils # (auto) 3.43 K/uL (1.40-6.50); Neutrophils % (auto) 58.1 %; Platelet Count 242 K/uL (130-400); RDW Coefficient of Variation 19.6 % (11.5-14.5); RDW Standard Deviation 63.7 fL (36.4-46.3); Red Blood Count 2.71 M/uL (4.20-5.40)
[2023-10-03 07:28] LABS: INR 1.3 (0.9-1.1)
[2023-10-03 07:30] LABS: Polychromasia 1+
[2023-10-03 07:46] LABS: Albumin Globulin Ratio 0.7 (0.9-2); Albumin Level 2.2 gm/dl (3.4-5.0); BUN Creatinine Ratio 26.6 (10-20); Bilirubin,Total 0.2 mg/dl (0.2-1.0); Calcium 8.3 mg/dl (8.6-10.3); Est GFR (African American) 58.3 ml/min; Est GFR (Non-African American) 50.3 ml/min; Magnesium 1.7 mg/dl (1.7-2.4); Phosphorus 4.1 mg/dl (2.5-4.9); Potassium 3.6 mmol/L (3.5-5.1); Total Protein 5.2 gm/dl (6.0-8.3)
[2023-10-03] MEDS ORDERED: ENOXAPARIN 1 MG/KG SC SCH (08:30)
[2023-10-03] MEDS: ENOXAPARIN INJ 120 MG/0.8 ML SYR SQ SCH (10:26)
--- NOTE | 2023-10-03 14:00 | Hospitalist Progress Note ---
Date of Service October 03, 2023 Assessment & Plan (1) AMS (altered mental status): Plan: 73 yo F with PMHx significant for type 2 diabetes, gout, hyperlipidemia, hypothyroidism, obstructive sleep apnea on CPAP, paroxysmal atrial fibrillation, chronic diastolic CHF, CKD stage III, pulmonary hypertension, obesity, GERD, chronic bilateral low back pain, history of CVA, history of gastric ulcer presenting from [facility] with lethargy. Patient was admitted on July 30, 2023 with UTI and sepsis and right ureteral calculus, had adenovirus infection and SAJAN with creatinine of 4.2 with septic shock requiring pressors, cultures growing VRE, E. coli and Proteus mirabilis in the urine and blood cultures growing E. coli. Antibiotics were tapered to IV ampicillin per ID to complete 14-day course and she is s/p right ureteral stent placement. kidney function improved and she was discharged to senior living on August 10, 2023. Acute metabolic encephalopathy, resolved -Secondary to underlying E. coli UTI, bacteremia, In the setting of indwelling ureteral stent, nephrolithiasis Sepsis, POA R iliacus/iliopsoas abscesses L5-S1 discitis and osteomyelitis Patient presented to the ED on September 10 with altered mental status/lethargy. It was thought secondary to UTI. CT abdomen and pelvis showed right nephroureteral stent in place. Patient underwent removal and stent exchange on September 16, 2023 MRI done for the back pain from September 14, 2023 showed L5-S1 discitis and osteomyelitis, 2 associated iliacus and iliopsoas fluid collection consistent with abscess. Lumbar CT repeated on September 22, 2023 did not show any significant change compared to MRI from September 14, 2023 Blood cultures from 09/10one set positive for E. coli Urine culture from 09/10E. coli, lactobacillus Repeat blood culture from 09/11no growth ESR on 09/2467, CRP5.83 Initially ID recommended patient to be started on IV ampicillin for 14 days on September 13, 2023. However, given the findings on the MRI showing discitis, osteomyelitis and abscesses. Previous attending discussed with infectious disease again and patient was recommended to be on IV Unasyn for total of [address] of the lumbar spine was done on August; findings were consistent with L5-S1 discitis and osteomyelitis as previous scans. There was associated right iliac us/iliopsoas fluid collection similar to previous scan. Patient is unable to undergo MRI due to inability to lie flat for several minutes. previous provider had discussion with infectious disease on September 28, 2023( Dr. Haney); he recommended that he would not change antibiotics at this time. He recommended to see if there is a possibility to obtain aspirate from the abscess seen on the CT. previous provider discussed with interventional radiology SHEKHAR(Mark); he reports attempts could be made to obtain a sample from the abscess. -pt s/p IR drainage on 10/01/23, cultures NGTD Resume coumadin, also on Lovenox bridge while INR subtherapeutic Continue on IV Unasyn, follow cultures-NGTD History of paroxysmal atrial fibrillation On amiodarone and metoprolol and Coumadin held coumadin in setting of need for procedure Resumed coumadin on 09/30, also on Lovenox bridge while INR subtherapeutic SAJAN on CKD stage III Creatinine up trended from 1.3-1.8 Likely secondary to hypotensive episode Nephrology was previously consulted Blood pressure overall improved Creatinine improved Continue monitor Avoid nephrotoxic agents Nephrology recs for discharge -Nephrology f/u with weekly BMP after discharge Pressure ulcer of right buttock, unstageable and cluster of 3 pressure ulcers on bilateral lower back, unstageable, all POA Patient has [id number] hospitalizations within the last few months leading to physical deconditioning. Patient bedbound and requires Ketty lift to get her out of the bed Continue PT OT Wound care consulted, appreciate recs Acute on chronic hyponatremia Presented with sodium of 118 Nephrology was consulted -was given IV fluids and Lasix. Sodium improved Continue to monitor Hyperkalemia Potassium 5.5 on admission Nephrology consulted, K now wnl Elevated troponin Troponin 16 mostly demand ischemia Obstructive sleep apnea CPAP nightly refused cpap says she was on cpap for last 5-6yrs but not using for last 6 weeks as mask was not fitting. She got new mask but not started using it yet as she has URI symptoms. Type 2 Diabetes Will hold home p.o. medications Sliding scale and lantus 5units daily for now Will monitor History of paroxysmal atrial fibrillation On amiodarone and metoprolol and Coumadin hold coumadin. Chronic diastolic CHF Was on spironolactone and Bumex last admission but stopped on discharge for hyponatremia and worsening kidney function CXR: mild pulmonary edema Continue on torsemide 20 mg once a day. Gout On allopurinol Depression recently started on Lexapro Hypothyroidism On Synthyroid Hyperlipidemia On statin GERD On omeprazole Hypertension Lisinopril and amlodipine were held at time of discharge last admission on metoprolol, continue DVT prophylaxis: Coumadin resumed, also on Lovenox bridge while INR subtherapeutic Disposition:Anticipate transition to acute rehab when medically stable Admission and Anticipated Discharge Date Admission Date: September 11, 2023 Subjective Pt was seen while laying in bed Denied concerns Review of Systems Review of Systems: All systems reviewed & are unremarkable except as noted in Subjective Physical Exam Physical Exam: General: Alert, oriented. No acute distress Psych: Appropriate mood and affect Neuro: difficulty with movements in the bed HEENT: NC/AT CV: RRR, murmur Resp: no increased effort of breathing Abdomen: Soft, nontender Extremities: edema in lower extremities bilaterally, also slight erythema. Results & Data Results & Data Vital Signs (Past 12 Hours) Vital Signs Temp Pulse Pulse Resp BP Pulse Ox O2 Del Method 10/03/23 11:10 73 10/03/23 07:44 Room Air 10/03/23 07:08 36.3 C L 74 20 130/74 92 Room Air 10/03/23 03:37 36.4 C L 76 18 108/70 94 Room Air
--- NOTE | 2023-10-04 04:27 | Communication Note ---
Date of Service: October 04, 2023 Patient noted to have hemoptysis later followed by epistaxis as per RN. Denies unusual chest pain, SOB, headache. AP Hemoptysis Epistaxis Lovenox-Coumadin Rx CBC now Hold Lovenox and Coumadin for now Antitussive for hemoptysis CT chest Afrin for epistaxis
[2023-10-04] MEDS ORDERED: BENZONATATE 100 MG CAPSULE PO PRN (04:32)
[2023-10-04] MEDS: BENZONATATE 100 MG CAPSULE PO ONE (04:56)
[2023-10-04 05:21] LABS: Basophils # (auto) 0.07 K/uL (0.00-0.20); Basophils % (auto) 0.9 %; Eosinophils # (auto) 0.25 K/uL (0.00-0.50); Eosinophils % (auto) 3.4 %; Immature Granulocytes % (auto) 1.3 %; Lymphocytes # (auto) 2.13 K/uL (1.20-3.40); Lymphocytes % (auto) 28.6 %; Mean Corpuscular Hemoglobin 27.9 pg (25.0-34.0); Mean Corpuscular Hgb Conc 30.8 g/dL (32.0-36.0); Mean Corpuscular Volume 90.6 fL (80.0-100.0); Mean Platelet Volume 9.3 fL (9.4-12.4); Monocytes # (auto) 0.49 K/uL (0.11-0.59); Monocytes % (auto) 6.6 %; Neutrophils % (auto) 59.2 %; Platelet Count 258 K/uL (130-400); RDW Coefficient of Variation 19.6 % (11.5-14.5); Red Blood Count 2.87 M/uL (4.20-5.40); White Blood Count 7.44 K/ul (4.8-10.8)
[2023-10-04 05:28] LABS: BUN Creatinine Ratio 24.8 (10-20); Calcium 8.1 mg/dl (8.6-10.3); Creatinine Clr Calc Pharmacy 46.5 ml/min; Est GFR (African American) 47.6 ml/min; Potassium 3.5 mmol/L (3.5-5.1)
[2023-10-04 05:42] LABS: INR 1.4 (0.9-1.1); Prothrombin Time 14.4 Seconds (9.0-12.0)
[2023-10-04] MEDS: OXYMETAZOLINE 0.05% 30 ML BTL STA ×2 (06:12→19:40)
[2023-10-04] MEDS: MAGNESIUM SULFATE / D5W 1 GM/100 ML BAG IV SCH (06:18)
[2023-10-04] MEDS: POTASSIUM CHLORIDE PWD 20 MEQ PACK PO STA (06:21)
--- NOTE | 2023-10-04 07:57 | CT Scan Report ---
CT chest diagnostic wo con CT DOSE: 1161.07 mGy.cm HISTORY: hemoptysis TECHNIQUE: Multiaxial CT images of the chest were performed without contrast. A dose lowering techni que was utilized adhering to the principles of ALARA. COMPARISON: Chest CTA 04/22/2021. FINDINGS: Small amount of mucoid material within the trachea. Otherwise, the central airways are jaime nt. No pneumothorax. Mild air trapping within the lungs. Small patchy groundglass densities within th e upper lobes most pronounced on the right. Consolidation within the bilateral lower lobes posteriorl y. This favors atelectasis from the small bilateral pleural effusions. A pneumonia could also have a similar appearance. There are old, healed bilateral anterior rib fractures. There is normal, healed s ternal fracture. No acute fractures identified. Chronic deformity of the right sternoclavicular joint again noted. This is likely due to an old injury. A right PICC terminates in the distal SVC. Limited views of the upper abdomen demonstrate normal liver, spleen, and adrenal glands. Normal esophagus. T he heart is mildly enlarged. No pericardial effusion. Mild calcified plaque within the normal caliber thoracic aorta. Stable prominent right paratracheal lymph node measuring 12 mm. Otherwise, no medias tinal or hilar lymphadenopathy. Limited views the upper abdomen demonstrate a normal liver, spleen, a nd adrenal glands. There is a punctate stone within the left kidney. IMPRESSION: 1. Small bilateral pleural effusions. Consolidation within the lower lobes posteriorly favors renea sive atelectasis from the pleural effusions. A superimposed pneumonia would be difficult to exclude b y imaging. 2. Mild cardiomegaly. 3. Small patchy groundglass densities within the upper lobes most pronounced on the right. This could represent a low-grade pneumonitis or mild congestive change. 4. Additional findings as described above. ACT 112: Negative or not required by law. Electronically signed by: Suhail Nolen M.D. 10/04/2023 7:56 AM
[2023-10-04] MEDS: SODIUM CHLORIDE 0.9% 1,000 ML IV SCH (09:13)
[2023-10-04 10:33] LABS: Hematocrit (blood only) 25.5 % (37.0-47.0); Hemoglobin 7.8 g/dl (12.0-16.0)
--- NOTE | 2023-10-04 16:13 | Hospitalist Progress Note ---
Date of Service October 04, 2023 Assessment & Plan (1) AMS (altered mental status): Plan: 73 yo F with PMHx significant for type 2 diabetes, gout, hyperlipidemia, hypothyroidism, obstructive sleep apnea on CPAP, paroxysmal atrial fibrillation, chronic diastolic CHF, CKD stage III, pulmonary hypertension, obesity, GERD, chronic bilateral low back pain, history of CVA, history of gastric ulcer presenting from [facility] with lethargy. Patient was admitted on July 30, 2023 with UTI and sepsis and right ureteral calculus, had adenovirus infection and SAJAN with creatinine of 4.2 with septic shock requiring pressors, cultures growing VRE, E. coli and Proteus mirabilis in the urine and blood cultures growing E. coli. Antibiotics were tapered to IV ampicillin per ID to complete 14-day course and she is s/p right ureteral stent placement. kidney function improved and she was discharged to retirement on August 10, 2023. Acute metabolic encephalopathy, resolved -Secondary to underlying E. coli UTI, bacteremia, In the setting of indwelling ureteral stent, nephrolithiasis Sepsis, POA R iliacus/iliopsoas abscesses L5-S1 discitis and osteomyelitis Patient presented to the ED on September 10 with altered mental status/lethargy. It was thought secondary to UTI. CT abdomen and pelvis showed right nephroureteral stent in place. Patient underwent removal and stent exchange on September 16, 2023 MRI done for the back pain from September 14, 2023 showed L5-S1 discitis and osteomyelitis, 2 associated iliacus and iliopsoas fluid collection consistent with abscess. Lumbar CT repeated on September 22, 2023 did not show any significant change compared to MRI from September 14, 2023 Blood cultures from 09/10one set positive for E. coli Urine culture from 09/10E. coli, lactobacillus Repeat blood culture from 09/11no growth ESR on 09/2467, CRP5.83 Initially ID recommended patient to be started on IV ampicillin for 14 days on September 13, 2023. However, given the findings on the MRI showing discitis, osteomyelitis and abscesses. Previous attending discussed with infectious disease again and patient was recommended to be on IV Unasyn for total of [address] of the lumbar spine was done on August; findings were consistent with L5-S1 discitis and osteomyelitis as previous scans. There was associated right iliac us/iliopsoas fluid collection similar to previous scan. Patient is unable to undergo MRI due to inability to lie flat for several minutes. previous provider had discussion with infectious disease on September 28, 2023( Dr. Haney); he recommended that he would not change antibiotics at this time. He recommended to see if there is a possibility to obtain aspirate from the abscess seen on the CT. previous provider discussed with interventional radiology SHEKHAR(Mark); he reports attempts could be made to obtain a sample from the abscess. -pt s/p IR drainage on 10/01/23, cultures NGTD Resume coumadin, also on Lovenox bridge while INR subtherapeutic Continue on IV Unasyn, follow cultures-NGTD F/U with ID in AM for further recs Epistaxis Pt with epistaxis episode overnight on 10/02 INR of 1.3 that day, decreased even further after resuming warfarin on 09/30 Was started on Lovenox bridge at that time Epistaxis resolved after Afrin Warfarin/Lovenox on hold, INR of 1.4 History of paroxysmal atrial fibrillation On amiodarone and metoprolol and Coumadin held coumadin in setting of need for procedure Resumed coumadin on 09/30, also on Lovenox bridge while INR subtherapeutic SAJAN on CKD stage III Creatinine up trended from 1.3-1.8 Likely secondary to hypotensive episode Nephrology was previously consulted Blood pressure overall improved Creatinine improved Continue monitor Avoid nephrotoxic agents Nephrology recs for discharge -Nephrology f/u with weekly BMP after discharge 10/03-slight SAJAN once more 1.2, NSS 2 bags Pressure ulcer of right buttock, unstageable and cluster of 3 pressure ulcers on bilateral lower back, unstageable, all POA Patient has [id number] hospitalizations within the last few months leading to physical deconditioning. Patient bedbound and requires Ketty lift to get her out of the bed Continue PT OT Wound care consulted, appreciate recs Acute on chronic hyponatremia Presented with sodium of 118 Nephrology was consulted -was given IV fluids and Lasix. Sodium improved Continue to monitor Hyperkalemia Potassium 5.5 on admission Nephrology consulted, K now wnl Elevated troponin Troponin 16 mostly demand ischemia Obstructive sleep apnea CPAP nightly refused cpap says she was on cpap for last 5-6yrs but not using for last 6 weeks as mask was not fitting. She got new mask but not started using it yet as she has URI symptoms. Type 2 Diabetes Will hold home p.o. medications Sliding scale and lantus 5units daily for now Will monitor History of paroxysmal atrial fibrillation On amiodarone and metoprolol and Coumadin hold coumadin. Chronic diastolic CHF Was on spironolactone and Bumex last admission but stopped on discharge for hyponatremia and worsening kidney function CXR: mild pulmonary edema Continue on torsemide 20 mg once a day. Gout On allopurinol Depression recently started on Lexapro Hypothyroidism On Synthyroid Hyperlipidemia On statin GERD On omeprazole Hypertension Lisinopril and amlodipine were held at time of discharge last admission on metoprolol, continue DVT prophylaxis: Coumadin r/Lovenox bridge on hold in setting of epistaxis Disposition:Anticipate transition to acute rehab when medically stable Admission and Anticipated Discharge Date Admission Date: September 11, 2023 Subjective Pt with reports of epistxis and hemoptysis overnight. She states she does not believe she was coughing up blood, the blood was likely from the nosebleed in her mouth. All bleeding has stopped since. Review of Systems Review of Systems: All systems reviewed & are unremarkable except as noted in Subjective Physical Exam Physical Exam: General: Alert, oriented. No acute distress Psych: Appropriate mood and affect Neuro: difficulty with movements in the bed HEENT: NC/AT CV: RRR, murmur Resp: no increased effort of breathing Abdomen: Soft, nontender Extremities: edema in lower extremities bilaterally, also slight erythema. Results & Data Results & Data Vital Signs (Past 12 Hours) Vital Signs Temp Pulse Resp BP Pulse Ox O2 Del Method 10/04/23 15:24 36.6 C 84 19 111/68 92 Room Air 10/04/23 11:04 36.5 C 78 18 115/75 95 Room Air 10/04/23 07:16 36.7 C 84 19 108/68 92 Room Air 10/04/23 05:30 103 H 125/79
[2023-10-05] MEDS: OXYMETAZOLINE 0.05% 30 ML BTL STA (01:26)
[2023-10-05 07:47] LABS: Basophils # (auto) 0.06 K/uL (0.00-0.20); Basophils % (auto) 0.9 %; Eosinophils # (auto) 0.26 K/uL (0.00-0.50); Eosinophils % (auto) 4.1 %; Hematocrit (blood only) 23.7 % (37.0-47.0); Hemoglobin 7.3 g/dl (12.0-16.0); Immature Granulocytes # (auto) 0.11 K/uL (0.01-0.20); Immature Granulocytes % (auto) 1.7 %; Lymphocytes # (auto) 1.54 K/uL (1.20-3.40); Lymphocytes % (auto) 24.3 %; Mean Corpuscular Hemoglobin 27.9 pg (25.0-34.0); Mean Corpuscular Hgb Conc 30.8 g/dL (32.0-36.0); Mean Corpuscular Volume 90.5 fL (80.0-100.0); Mean Platelet Volume 9.6 fL (9.4-12.4); Monocytes # (auto) 0.32 K/uL (0.11-0.59); Neutrophils # (auto) 4.06 K/uL (1.40-6.50); Platelet Count 238 K/uL (130-400); RDW Coefficient of Variation 19.9 % (11.5-14.5); RDW Standard Deviation 65.3 fL (36.4-46.3); Red Blood Count 2.62 M/uL (4.20-5.40); White Blood Count 6.35 K/ul (4.8-10.8)
[2023-10-05 08:06] LABS: Albumin Globulin Ratio 0.7 (0.9-2); Albumin Level 2.1 gm/dl (3.4-5.0); BUN Creatinine Ratio 23.7 (10-20); Bilirubin,Total 0.2 mg/dl (0.2-1.0); Calcium 7.9 mg/dl (8.6-10.3); Est GFR (Non-African American) 45.7 ml/min; Globulin 3.1 gm/dl (2.5-4.0); Magnesium 1.9 mg/dl (1.7-2.4); Phosphorus 3.9 mg/dl (2.5-4.9); Potassium 3.8 mmol/L (3.5-5.1); Total Protein 5.2 gm/dl (6.0-8.3)
[2023-10-05 08:11] LABS: INR 1.4 (0.9-1.1); Prothrombin Time 14.3 Seconds (9.0-12.0)
[2023-10-05 08:17] LABS: Anisocytosis Present; Polychromasia 1+
--- NOTE | 2023-10-05 12:55 | Hospitalist Progress Note ---
Date of Service October 05, 2023 Assessment & Plan (1) AMS (altered mental status): Plan: 73 yo F with PMHx significant for type 2 diabetes, gout, hyperlipidemia, hypothyroidism, obstructive sleep apnea on CPAP, paroxysmal atrial fibrillation, chronic diastolic CHF, CKD stage III, pulmonary hypertension, obesity, GERD, chronic bilateral low back pain, history of CVA, history of gastric ulcer presenting from [facility] with lethargy. Patient was admitted on July 30, 2023 with UTI and sepsis and right ureteral calculus, had adenovirus infection and SAJAN with creatinine of 4.2 with septic shock requiring pressors, cultures growing VRE, E. coli and Proteus mirabilis in the urine and blood cultures growing E. coli. Antibiotics were tapered to IV ampicillin per ID to complete 14-day course and she is s/p right ureteral stent placement. kidney function improved and she was discharged to intermediate on August 10, 2023. Acute metabolic encephalopathy, resolved -Secondary to underlying E. coli UTI, bacteremia, In the setting of indwelling ureteral stent, nephrolithiasis Sepsis, POA R iliacus/iliopsoas abscesses L5-S1 discitis and osteomyelitis Patient presented to the ED on September 10 with altered mental status/lethargy. It was thought secondary to UTI. CT abdomen and pelvis showed right nephroureteral stent in place. Patient underwent removal and stent exchange on September 16, 2023 MRI done for the back pain from September 14, 2023 showed L5-S1 discitis and osteomyelitis, 2 associated iliacus and iliopsoas fluid collection consistent with abscess. Lumbar CT repeated on September 22, 2023 did not show any significant change compared to MRI from September 14, 2023 Blood cultures from 09/10one set positive for E. coli Urine culture from 09/10E. coli, lactobacillus Repeat blood culture from 09/11no growth ESR on 09/2467, CRP5.83 Initially ID recommended patient to be started on IV ampicillin for 14 days on September 13, 2023. However, given the findings on the MRI showing discitis, osteomyelitis and abscesses. Previous attending discussed with infectious disease again and patient was recommended to be on IV Unasyn for total of [address] of the lumbar spine was done on August; findings were consistent with L5-S1 discitis and osteomyelitis as previous scans. There was associated right iliac us/iliopsoas fluid collection similar to previous scan. Patient is unable to undergo MRI due to inability to lie flat for several minutes. previous provider had discussion with infectious disease on September 28, 2023( Dr. Haney); he recommended that he would not change antibiotics at this time. He recommended to see if there is a possibility to obtain aspirate from the abscess seen on the CT. previous provider discussed with interventional radiology SHEKHAR(Mark); he reports attempts could be made to obtain a sample from the abscess. -pt s/p IR drainage on 10/01/23, cultures NGTD Continue on IV Unasyn for total of 6 weeks of treatment from September 12, for discitis and osteomyelitis as previously recommended by ID, follow cultures-NGTD Epistaxis Pt with epistaxis episode overnight on 10/02 INR of 1.3 that day, decreased even further after resuming warfarin on 09/30 Was started on Lovenox bridge at that time Epistaxis resolved after Afrin Warfarin/Lovenox on hold, INR of 1.4 Improved, pt with occasional bleeds, holding warfarin at this time. Resume as able Pt currently declining resuming History of paroxysmal atrial fibrillation On amiodarone and metoprolol and Coumadin held coumadin in setting of need for procedure Resumed coumadin on 09/30, also on Lovenox bridge while INR subtherapeutic As above warfarin currently on hold in setting of severe nosebleed, resume as able. Pt declined resuming on 10/04 SAJAN on CKD stage III Creatinine up trended from 1.3-1.8 Likely secondary to hypotensive episode Nephrology was previously consulted Blood pressure overall improved Creatinine improved Continue monitor Avoid nephrotoxic agents Nephrology recs for discharge -Nephrology f/u with weekly BMP after discharge 10/03-slight SAJAN once more 1.2, NSS 2 bags 10/04- wnl Pressure ulcer of right buttock, unstageable and cluster of 3 pressure ulcers on bilateral lower back, unstageable, all POA Patient has [id number] hospitalizations within the last few months leading to physical deconditioning. Patient bedbound and requires Ketty lift to get her out of the bed Continue PT OT Wound care consulted, appreciate recs Acute on chronic hyponatremia Presented with sodium of 118 Nephrology was consulted -was given IV fluids and Lasix. Sodium improved Continue to monitor Hyperkalemia Potassium 5.5 on admission Nephrology consulted, K now wnl Elevated troponin Troponin 16 mostly demand ischemia Obstructive sleep apnea CPAP nightly refused cpap says she was on cpap for last 5-6yrs but not using for last 6 weeks as mask was not fitting. She got new mask but not started using it yet as she has URI symptoms. Type 2 Diabetes Will hold home p.o. medications Sliding scale and lantus 5units daily for now Will monitor History of paroxysmal atrial fibrillation On amiodarone and metoprolol and Coumadin hold coumadin. Chronic diastolic CHF Was on spironolactone and Bumex last admission but stopped on discharge for hyponatremia and worsening kidney function CXR: mild pulmonary edema Continue on torsemide 20 mg once a day. Gout On allopurinol Depression recently started on Lexapro Hypothyroidism On Synthyroid Hyperlipidemia On statin GERD On omeprazole Hypertension Lisinopril and amlodipine were held at time of discharge last admission on metoprolol, continue DVT prophylaxis: Coumadin r/Lovenox bridge on hold in setting of epistaxis Disposition:Anticipate transition to acute rehab when medically stable Admission and Anticipated Discharge Date Admission Date: September 11, 2023 Subjective reports occasional bleeding episodes of the nose though notes not as severe as the night before. Does not want her warfarin restarted yet. Notes pain in back side improved Review of Systems Review of Systems: All systems reviewed & are unremarkable except as noted in Subjective Physical Exam Physical Exam: General: Alert, oriented. No acute distress Psych: Appropriate mood and affect Neuro: difficulty with movements in the bed HEENT: NC/AT CV: RRR, murmur Resp: no increased effort of breathing Abdomen: Soft, nontender Extremities: edema in lower extremities bilaterally, also slight erythema. Results & Data Results & Data Vital Signs (Past 12 Hours) Vital Signs Temp Pulse Resp BP Pulse Ox O2 Del Method 10/05/23 12:33 36.6 C 97 H 19 109/62 92 Room Air 10/05/23 08:04 36.5 C 97 H 18 109/64 92 Room Air 10/05/23 03:19 36.5 C 81 18 130/78 95 Room Air
[2023-10-05] MEDS: MAGNESIUM HYDROXIDE SUSP 30 ML UDC PO PRN (16:37)
[2023-10-05] MEDS: SENNA 8.6 MG TAB PO PRN (18:10)
[2023-10-06 08:20] LABS: Basophils # (auto) 0.06 K/uL (0.00-0.20); Basophils % (auto) 0.7 %; Eosinophils # (auto) 0.27 K/uL (0.00-0.50); Eosinophils % (auto) 3.1 %; Hematocrit (blood only) 25.6 % (37.0-47.0); Hemoglobin 7.9 g/dl (12.0-16.0); Immature Granulocytes # (auto) 0.09 K/uL (0.01-0.20); Lymphocytes # (auto) 1.52 K/uL (1.20-3.40); Lymphocytes % (auto) 17.3 %; Mean Corpuscular Hemoglobin 27.8 pg (25.0-34.0); Mean Corpuscular Hgb Conc 30.9 g/dL (32.0-36.0); Mean Corpuscular Volume 90.1 fL (80.0-100.0); Mean Platelet Volume 9.6 fL (9.4-12.4); Monocytes # (auto) 0.48 K/uL (0.11-0.59); Monocytes % (auto) 5.5 %; Neutrophils # (auto) 6.37 K/uL (1.40-6.50); Neutrophils % (auto) 72.4 %; Nucleated RBC # (auto) 0.02 K/uL (0.00-0.12); Nucleated RBC % (auto) 0.2 %; Platelet Count 227 K/uL (130-400); RDW Coefficient of Variation 20.1 % (11.5-14.5); RDW Standard Deviation 65.1 fL (36.4-46.3); Red Blood Count 2.84 M/uL (4.20-5.40); White Blood Count 8.79 K/ul (4.8-10.8)
[2023-10-06 08:40] LABS: Albumin Globulin Ratio 0.7 (0.9-2); Albumin Level 2.2 gm/dl (3.4-5.0); BUN Creatinine Ratio 24.3 (10-20); Bilirubin,Total 0.3 mg/dl (0.2-1.0); Calcium 8.2 mg/dl (8.6-10.3); Creatinine Clr Calc Pharmacy 57.6 ml/min; Est GFR (African American) 59.6 ml/min; Est GFR (Non-African American) 51.5 ml/min; Globulin 3.1 gm/dl (2.5-4.0); Magnesium 1.9 mg/dl (1.7-2.4); Phosphorus 3.9 mg/dl (2.5-4.9); Potassium 3.8 mmol/L (3.5-5.1); Total Protein 5.3 gm/dl (6.0-8.3)
[2023-10-06 08:47] LABS: Anisocytosis Present; INR 1.3 (0.9-1.1); Polychromasia 1+; Prothrombin Time 13.6 Seconds (9.0-12.0)
--- NOTE | 2023-10-06 11:51 | Hospitalist Progress Note ---
Date of Service October 06, 2023 Assessment & Plan (1) AMS (altered mental status): Plan: 73 yo F with PMHx significant for type 2 diabetes, gout, hyperlipidemia, hypothyroidism, obstructive sleep apnea on CPAP, paroxysmal atrial fibrillation, chronic diastolic CHF, CKD stage III, pulmonary hypertension, obesity, GERD, chronic bilateral low back pain, history of CVA, history of gastric ulcer presenting from [facility] with lethargy. Patient was admitted on July 30, 2023 with UTI and sepsis and right ureteral calculus, had adenovirus infection and SAJAN with creatinine of 4.2 with septic shock requiring pressors, cultures growing VRE, E. coli and Proteus mirabilis in the urine and blood cultures growing E. coli. Antibiotics were tapered to IV ampicillin per ID to complete 14-day course and she is s/p right ureteral stent placement. kidney function improved and [facility]. Acute metabolic encephalopathy, resolved -Secondary to underlying E. coli UTI, bacteremia, In the setting of indwelling ureteral stent, nephrolithiasis Sepsis, POA R iliacus/iliopsoas abscesses L5-S1 discitis and osteomyelitis Patient presented to the ED on September 10 with altered mental status/lethargy. It was thought secondary to UTI. CT abdomen and pelvis showed right nephroureteral stent in place. Patient underwent removal and stent exchange on September 16, 2023 MRI done for the back pain from September 14, 2023 showed L5-S1 discitis and osteomyelitis, 2 associated iliacus and iliopsoas fluid collection consistent with abscess. Lumbar CT repeated on September 22, 2023 did not show any significant change compared to MRI from September 14, 2023 Blood cultures from 09/10one set positive for E. coli Urine culture from 09/10E. coli, lactobacillus Repeat blood culture from 09/11no growth ESR on 09/2467, CRP5.83 Initially ID recommended patient to be started on IV ampicillin for 14 days on September 13, 2023. However, given the findings on the MRI showing discitis, osteomyelitis and abscesses. Previous attending discussed with infectious disease again and patient was recommended to be on IV Unasyn for total of [address] of the lumbar spine was done on August; findings were consistent with L5-S1 discitis and osteomyelitis as previous scans. There was associated right iliac us/iliopsoas fluid collection similar to previous scan. Patient is unable to undergo MRI due to inability to lie flat for several minutes. previous provider had discussion with infectious disease on September 28, 2023( Dr. Haney); he recommended that he would not change antibiotics at this time. He recommended to see if there is a possibility to obtain aspirate from the abscess seen on the CT. previous provider discussed with interventional radiology SHEKHAR(Mark); he reports attempts could be made to obtain a sample from the abscess. -pt s/p IR drainage on 10/01/23, cultures NGTD Continue on IV Unasyn for total of 6 weeks of treatment from September 12, for discitis and osteomyelitis as previously recommended by ID, follow cultures-NGTD Remains clinically stable without any acute distress Remains hemodynamically stable and saturating normally on room air Moves all extremities but remain generally weak Will continue with the current IV antibiotic and finish the proposed course as advised by the ID specialist Epistaxis Pt with epistaxis episode overnight on 10/02 INR of 1.3 that day, decreased even further after resuming warfarin on 09/30 Was started on Lovenox bridge at that time Epistaxis resolved after Afrin Warfarin/Lovenox on hold, INR of 1.4 Improved, pt with occasional bleeds, holding warfarin at this time. Resume as able Pt currently declining resuming No more epistaxis and the hemoglobin remains stable at 7.9 Advised to start Coumadin sooner than later History of paroxysmal atrial fibrillation On amiodarone and metoprolol and Coumadin held coumadin in setting of need for procedure Resumed coumadin on 09/30, also on Lovenox bridge while INR subtherapeutic As above warfarin currently on hold in setting of severe nosebleed, resume as able. Pt declined resuming on 10/04 SAJAN on CKD stage III Creatinine up trended from 1.3-1.8 Likely secondary to hypotensive episode Nephrology was previously consulted Blood pressure overall improved Creatinine improved Continue monitor Avoid nephrotoxic agents Nephrology recs for discharge -Nephrology f/u with weekly BMP after discharge 10/03-slight SAJAN once more 1.2, NSS 2 bags 10/04- wnl Kidney function remains normal with normal electrolytes Pressure ulcer of right buttock, unstageable and cluster of 3 pressure ulcers on bilateral lower back, unstageable, all POA Patient has [id number] hospitalizations within the last few months leading to physical deconditioning. Patient bedbound and requires Ketty lift to get her out of the bed Continue PT OT Wound care consulted, appreciate recs Acute on chronic hyponatremia Presented with sodium of 118 Nephrology was consulted -was given IV fluids and Lasix. Sodium improved Hyperkalemia Potassium 5.5 on admission Nephrology consulted, K now wnl Resolved Elevated troponin Troponin 16 mostly demand ischemia Obstructive sleep apnea CPAP nightly refused cpap says she was on cpap for last 5-6yrs but not using for last 6 weeks as mask was not fitting. She got new mask but not started using it yet as she has URI symptoms. Strongly advised to use CPAP at nighttime Type 2 Diabetes Will hold home p.o. medications Sliding scale and lantus 5units daily for now Will monitor History of paroxysmal atrial fibrillation On amiodarone and metoprolol and Coumadin hold coumadin. Strongly advised to restart Coumadin Chronic diastolic CHF Was on spironolactone and Bumex last admission but stopped on discharge for hyponatremia and worsening kidney function CXR: mild pulmonary edema Continue on torsemide 20 mg once a day. Gout On allopurinol Depression recently started on Lexapro Hypothyroidism On Synthyroid Hyperlipidemia On statin GERD On omeprazole Hypertension Lisinopril and amlodipine were held at time of discharge last admission on metoprolol, continue DVT prophylaxis: Coumadin r/Lovenox bridge on hold in setting of epistaxis Disposition:Anticipate transition to acute rehab when medically stable Will be discharged to rehab facility this afternoon Admission and Anticipated Discharge Date Admission Date: September 11, 2023 Subjective 10/06/2019 The patient was seen and examined in telemetry unit She has been stable and wants to go to rehab today Denies any significant symptoms Review of Systems Review of Systems: All systems reviewed and are unremarkable except as noted below Physical Exam Physical Exam: Lying in bed comfortably Constitutional: well developed, well nourished, + ill appearing and + obese Eyes: PERRL, conjunctivae normal, anicteric sclerae ENMT: external ear and nose normal, oropharynx normal Neck: trachea midline, no thyromegaly Respiratory: no respiratory distress Auscultation: + diminished lung sounds and + crackles (Minimal dependent crackles on both sides) Cardiovascular: Rate/Rhythm: regular rate, regular rhythm and + tachycardic Heart Sounds: normal S1 and normal S2; no murmur Extremities: + edema (Trace edema bilaterally with chronic skin changes) Gastrointestinal (Abdomen): Inspection/Auscultation: normal bowel sounds; abdomen not distended Percussion/Palpation: abdomen soft; abdomen nontender Musculoskeletal: Movement of the right lower extremity is painful at the hip Neurologic: normal touch/pain/proprioception and moves all extremities; no focal motor deficits Generally weak and lethargic Lymphatic: no cervical or axillary lymphadenopathy Results & Data Results & Data Vital Signs (Past 12 Hours) Vital Signs Temp Pulse Pulse Resp BP Pulse Ox O2 Del Method 10/06/23 11:08 36.6 C 100 H 19 112/80 94 Room Air 10/06/23 09:35 77 10/06/23 09:35 Room Air 10/06/23 08:18 36.4 C L 94 H 19 101/61 92 Room Air 10/06/23 02:20 36.7 C 86 18 144/80 H 93 Room Air Laboratory Results Short CBC 10/06/23 Range/Units 07:58 WBC 8.79 (4.8-10.8) K/ul Hgb 7.9 L (12.0-16.0) g/dl Hct 25.6 L (37.0-47.0) % Plt Count 227 (130-400) K/uL BMP 10/06/23 07:58 Sodium 137 Potassium 3.8 Chloride 102 Carbon Dioxide 29 BUN 26 H Creatinine 1.07 Glucose 165 H Calcium 8.2 L Liver Function 10/06/23 Range/Units 07:58 Total Bilirubin 0.3 (0.2-1.0) mg/dl AST 12 L (13-39) U/L ALT 8 (7-52) U/L Alkaline Phosphatase 75 (34-104) U/L Albumin 2.2 L (3.4-5.0) gm/dl Medications Administered Current Inpatient Medications Acetaminophen (Acetaminophen 325 Mg Tab) 650 mg PO Q4H PRN PRN Reason: Pain or Fever Stop: 10/11/23 23:50 Last Admin: 10/03/23 19:28 Dose: 650 mg Allopurinol (Allopurinol 100 Mg Tab) 200 mg PO HS MONIKA Stop: 10/12/23 20:59 Last Admin: 10/05/23 20:27 Dose: 200 mg Amiodarone HCl (Amiodarone 200 Mg Tab) 200 mg PO QAM [facility] Stop: 10/19/23 08:59 Last Admin: 10/06/23 09:11 Dose: 200 mg Ascorbic Acid (Ascorbic Acid 500 Mg Tab) 250 mg PO [email or web address]@0900 [facility] Stop: 10/13/23 08:59 Last Admin: 10/06/23 09:10 Dose: 250 mg Benzonatate (Benzonatate 100 Mg Capsule) 100 mg PO TID PRN PRN Reason: Cough Stop: 11/03/23 04:31 Dextrose (Dextrose 50% 50 Ml Syringe) 25 - 50 ml IV UD PRN; Protocol PRN Reason: Hypoglycemia Protocol Stop: 10/12/23 01:58 Diclofenac Sodium (Diclofenac Sod 1% Gel 100 Gm Tube) 4 gm EXT QID [facility]; Protocol Stop: 10/12/23 08:59 Last Admin: 10/06/23 09:12 Dose: 4 gm Docusate Sodium (Docusate Sodium 100 Mg Cap) 100 mg PO BID [facility] Stop: 10/12/23 08:59 Last Admin: 10/06/23 09:09 Dose: 100 mg Enoxaparin Sodium (Enoxaparin Inj 120 Mg/0.8 Ml Syr) 111 mg SQ BID [facility] Stop: 11/02/23 08:59 Last Admin: 10/03/23 21:25 Dose: 111 mg Escitalopram Oxalate (Escitalopram Oxalate 10 Mg Tab) 5 [facility] Stop: 10/12/23 08:59 Last Admin: 10/06/23 09:08 Dose: 5 mg Ferrous Sulfate (Ferrous Sulfate 325 Mg Tab) 325 mg PO MoWeFr@0900 [facility] Stop: 10/13/23 08:59 Last Admin: 10/06/23 09:08 Dose: 325 mg Glucagon (Glucagon For Inj 1 Mg Vial) 1 mg SQ UD PRN; Protocol PRN Reason: Hypoglycemia Protocol Stop: 10/12/23 01:58 Glucose (Glucose 40% Gel 15 Gm Tube) 15 - 30 gm PO UD PRN; Protocol PRN Reason: Hypoglycemia Protocol Stop: 10/12/23 01:58 Glucose (Glucose 10 Tab/Tube) 4 - 8 tab PO UD PRN; Protocol PRN Reason: Hypoglycemia Treatment Stop: 10/12/23 01:58 Heparin Sodium (Beef Lung) (Heparin 10 Unit/Ml 5 Ml Flush) 5 ml FLUSH PRN PRN PRN Reason: Flush Stop: 10/23/23 00:55 Last Admin: 09/27/23 09:30 Dose: 5 ml Ampicillin Sodium/Sulbactam Sodium 3,000 mg/ Sodium Chloride 100 mls @ 100 mls/hr IV Q6H MONIKA Stop: 10/08/23 13:29 Last Infusion: 10/06/23 10:25 Dose: Infused Insulin Aspart (Insulin Aspart Per Unit Charge) 0 units SC ACHS MONIKA Stop: 10/12/23 07:29 Last Admin: 10/06/23 09:03 Dose: 2 units Insulin Glargine (Lantus Per Unit Charge) 5 units SQ DAILY MONIKA Stop: 10/12/23 08:59 Last Admin: 10/06/23 09:11 Dose: 5 units Lactobacillus Acidophilus (Advanced Probiotic 625 Mg Capsule) 1,250 mg PO DAILY MONIKA Stop: 10/14/23 10:59 Last Admin: 10/06/23 09:11 Dose: Not Given Levothyroxine Sodium (Levothyroxine Sodium 112 Mcg Tablet) 112 mcg PO DAILYBB [facility] Stop: 10/12/23 06:29 Last Admin: 10/06/23 06:25 Dose: 112 mcg Magnesium Hydroxide (Magnesium Hydroxide Susp 30 Ml Udc) 30 ml PO Q6H PRN PRN Reason: constipation Stop: 11/04/23 15:48 Last Admin: 10/05/23 16:37 Dose: 30 ml Magnesium Oxide (Magnesium Oxide 400 Mg Tab) 400 mg PO QPM MONIKA Stop: 10/12/23 20:59 Last Admin: 10/05/23 20:29 Dose: 400 mg Metoprolol Tartrate (Metoprolol Tartrate 50 Mg Tab) 50 mg PO BID MONIKA Stop: 10/12/23 08:59 Last Admin: 10/06/23 09:07 Dose: 50 mg Miscellaneous (Carbohydrates For Hypoglycemia ) 15 - 30 gm PO UD PRN PRN Reason: Hypoglycemia Protocol Stop: 10/12/23 01:58 Multi-Ingredient Mouthwash/Gargle (First - Mouthwash Blm 119 Ml) 5 ml PO Q6H [facility] Stop: 10/18/23 14:59 Last Admin: 10/06/23 09:11 Dose: Not Given Multivitamins (Multivitamin Tab) 1 tab PO QPM MONIKA Stop: 10/12/23 20:59 Last Admin: 10/05/23 21:31 Dose: 1 tab Nitroglycerin (Nitroglycerin Sl 0.4 Mg/Tab Tab) 0.4 mg SL Q5M PRN PRN Reason: Chest Pain Stop: 10/11/23 23:50 Oxycodone HCl (Oxycodone Hcl Ir 5 Mg Tab (Immediate Release)) 5 - 10 mg PO QID PRN PRN Reason: Pain Stop: 10/15/23 22:02 Last Admin: 10/06/23 10:05 Dose: 10 mg Pantoprazole Sodium (Pantoprazole 40 Mg Tab) 40 mg PO QAM MONIKA Stop: 10/12/23 08:59 Last Admin: 10/06/23 09:07 Dose: 40 mg Polyethylene Glycol (Polyethylene (Miralax) 17 Gm Pack) 17 gm PO DAILY PRN PRN Reason: Constipation Stop: 10/11/23 23:50 Last Admin: 10/05/23 08:26 Dose: 17 gm Polyethylene Glycol (Polyethylene (Miralax) 17 Gm Pack) 17 gm PO QAM MONIKA Stop: 10/12/23 08:59 Last Admin: 09/19/23 09:01 Dose: 17 gm Rosuvastatin Calcium (Rosuvastatin Calcium 10 Mg Tab) 10 mg PO HS MONIKA Stop: 10/12/23 20:59 Last Admin: 10/05/23 20:28 Dose: 10 mg Sennosides (Senna 8.6 Mg Tab) 8.6 mg PO QAM PRN PRN Reason: Constipation Stop: 11/05/23 08:59 Last Admin: 10/05/23 18:10 Dose: 8.6 mg Sodium Chloride (Sodium Chloride 0.65% Na Soln 45 Ml ([place])) 2 sprays NA Q8 PRN PRN Reason: DRYNESS Stop: 10/12/23 00:00 Tamsulosin HCl (Tamsulosin Hcl 0.4 Mg Cap) 0.4 mg PO DAILY MONIKA Stop: 10/12/23 08:59 Last Admin: 10/06/23 09:07 Dose: 0.4 mg Torsemide (Torsemide 20 Mg Tab) 20 mg PO QAM MONIKA Stop: 10/25/23 13:14 Last Admin: 10/06/23 09:13 Dose: Not Given Vitamin D (Cholecalciferol 25 Mcg (1000 Units) Tab) 25 mcg PO QAM MONIKA Stop: 10/12/23 08:59 Last Admin: 10/06/23 09:10 Dose: 25 mcg Warfarin Sodium (Warfarin Sod 2 Mg Tab) 2 mg PO [facility] Stop: 10/18/23 20:59 Last Admin: 10/03/23 21:25 Dose: 2 mg
[2023-10-07 07:45] LABS: Basophils # (auto) 0.06 K/uL (0.00-0.20); Basophils % (auto) 0.8 %; Eosinophils % (auto) 4.1 %; Hematocrit (blood only) 24.8 % (37.0-47.0); Hemoglobin 7.5 g/dl (12.0-16.0); Immature Granulocytes # (auto) 0.11 K/uL (0.01-0.20); Immature Granulocytes % (auto) 1.5 %; Lymphocytes # (auto) 1.88 K/uL (1.20-3.40); Lymphocytes % (auto) 25.4 %; Mean Corpuscular Hemoglobin 27.6 pg (25.0-34.0); Mean Corpuscular Hgb Conc 30.2 g/dL (32.0-36.0); Mean Corpuscular Volume 91.2 fL (80.0-100.0); Mean Platelet Volume 10.2 fL (9.4-12.4); Monocytes # (auto) 0.44 K/uL (0.11-0.59); Monocytes % (auto) 5.9 %; Neutrophils # (auto) 4.61 K/uL (1.40-6.50); Neutrophils % (auto) 62.3 %; Platelet Count 228 K/uL (130-400); RDW Coefficient of Variation 20.3 % (11.5-14.5); RDW Standard Deviation 66.4 fL (36.4-46.3); Red Blood Count 2.72 M/uL (4.20-5.40)
[2023-10-07 08:02] LABS: Albumin Globulin Ratio 0.7 (0.9-2); Albumin Level 2.2 gm/dl (3.4-5.0); BUN Creatinine Ratio 22.3 (10-20); Bilirubin,Total 0.2 mg/dl (0.2-1.0); Calcium 8.2 mg/dl (8.6-10.3); Creatinine Clr Calc Pharmacy 54.9 ml/min; Est GFR (African American) 56.4 ml/min; Est GFR (Non-African American) 48.7 ml/min; Globulin 3.1 gm/dl (2.5-4.0); Magnesium 1.9 mg/dl (1.7-2.4); Phosphorus 4.1 mg/dl (2.5-4.9); Potassium 3.7 mmol/L (3.5-5.1); Total Protein 5.3 gm/dl (6.0-8.3)
[2023-10-07 08:12] LABS: Anisocytosis Present; Polychromasia 1+
--- NOTE | 2023-10-07 08:22 | Hospitalist Progress Note ---
Date of Service October 07, 2023 Assessment & Plan (1) AMS (altered mental status): Plan: 73 yo F with PMHx significant for type 2 diabetes, gout, hyperlipidemia, hypothyroidism, obstructive sleep apnea on CPAP, paroxysmal atrial fibrillation, chronic diastolic CHF, CKD stage III, pulmonary hypertension, obesity, GERD, chronic bilateral low back pain, history of CVA, history of gastric ulcer presenting from [facility] with lethargy. Patient was admitted on July 30, 2023 with UTI and sepsis and right ureteral calculus, had adenovirus infection and SAJAN with creatinine of 4.2 with septic shock requiring pressors, cultures growing VRE, E. coli and Proteus mirabilis in the urine and blood cultures growing E. coli. Antibiotics were tapered to IV ampicillin per ID to complete 14-day course and she is s/p right ureteral stent placement. kidney function improved and she was discharged to halfway on August 10, 2023. Acute metabolic encephalopathy, resolved -Secondary to underlying E. coli UTI, bacteremia, In the setting of indwelling ureteral stent, nephrolithiasis Sepsis, POA R iliacus/iliopsoas abscesses L5-S1 discitis and osteomyelitis Patient presented to the ED on September 10 with altered mental status/lethargy. It was thought secondary to UTI. CT abdomen and pelvis showed right nephroureteral stent in place. Patient underwent removal and stent exchange on September 16, 2023 MRI done for the back pain from September 14, 2023 showed L5-S1 discitis and osteomyelitis, 2 associated iliacus and iliopsoas fluid collection consistent with abscess. Lumbar CT repeated on September 22, 2023 did not show any significant change compared to MRI from September 14, 2023 Blood cultures from 09/10one set positive for E. coli Urine culture from 09/10E. coli, lactobacillus Repeat blood culture from 09/11no growth ESR on 09/2467, CRP5.83 Initially ID recommended patient to be started on IV ampicillin for 14 days on September 13, 2023. However, given the findings on the MRI showing discitis, osteomyelitis and abscesses. Previous attending discussed with infectious disease again and patient was recommended to be on IV Unasyn for total of [address] of the lumbar spine was done on August; findings were consistent with L5-S1 discitis and osteomyelitis as previous scans. There was associated right iliac us/iliopsoas fluid collection similar to previous scan. Patient is unable to undergo MRI due to inability to lie flat for several minutes. previous provider had discussion with infectious disease on September 28, 2023( Dr. Haney); he recommended that he would not change antibiotics at this time. He recommended to see if there is a possibility to obtain aspirate from the abscess seen on the CT. previous provider discussed with interventional radiology SHEKHAR(Mark); he reports attempts could be made to obtain a sample from the abscess. -pt s/p IR drainage on 10/01/23, cultures NGTD Continue on IV Unasyn for total of 6 weeks of treatment from September 12, for discitis and osteomyelitis as previously recommended by ID, follow cultures-NGTD Remains clinically stable without any acute distress Remains hemodynamically stable and saturating normally on room air Moves all extremities but remain generally weak Will continue with the current IV antibiotic and finish the proposed course as advised by the ID specialist Remains medically stable, afebrile, without any significant symptoms She will be discharged to rehab this morning Epistaxis Pt with epistaxis episode overnight on 10/02 INR of 1.3 that day, decreased even further after resuming warfarin on 09/30 Was started on Lovenox bridge at that time Epistaxis resolved after Afrin Warfarin/Lovenox on hold, INR of 1.4 Improved, pt with occasional bleeds, holding warfarin at this time. Resume as able Pt currently declining resuming No more epistaxis and the hemoglobin remains stable at 7.9 Advised to start Coumadin sooner than later No more epistaxis and hemoglobin remained stable at 7.5-advised to restart Coumadin as soon as possible History of paroxysmal atrial fibrillation On amiodarone and metoprolol and Coumadin held coumadin in setting of need for procedure Resumed coumadin on 09/30, also on Lovenox bridge while INR subtherapeutic As above warfarin currently on hold in setting of severe nosebleed, resume as able. Pt declined resuming on 10/04 SAJAN on CKD stage III Creatinine up trended from 1.3-1.8 Likely secondary to hypotensive episode Nephrology was previously consulted Blood pressure overall improved Creatinine improved Continue monitor Avoid nephrotoxic agents Nephrology recs for discharge -Nephrology f/u with weekly BMP after discharge 10/03-slight SAJAN once more 1.2, NSS 2 bags 06/04- wnl Kidney function remains normal with normal electrolytes Pressure ulcer of right buttock, unstageable and cluster of 3 pressure ulcers on bilateral lower back, unstageable, all POA Patient has [id number] hospitalizations within the last few months leading to physical deconditioning. Patient bedbound and requires Ketty lift to get her out of the bed Continue PT OT Wound care consulted, appreciate recs Will need to continue with PT OT and frequent change of positions in bed to avoid complications from pressure sores Acute on chronic hyponatremia Presented with sodium of 118 Nephrology was consulted -was given IV fluids and Lasix. Sodium improved Hyperkalemia Potassium 5.5 on admission Nephrology consulted, K now wnl Resolved Elevated troponin Troponin 16 mostly demand ischemia Obstructive sleep apnea CPAP nightly refused cpap says she was on cpap for last 5-6yrs but not using for last 6 weeks as mask was not fitting. She got new mask but not started using it yet as she has URI symptoms. Strongly advised to use CPAP at nighttime Type 2 Diabetes Will hold home p.o. medications Sliding scale and lantus 5units daily for now Will monitor History of paroxysmal atrial fibrillation On amiodarone and metoprolol and Coumadin hold coumadin. Strongly advised to restart Coumadin Chronic diastolic CHF Was on spironolactone and Bumex last admission but stopped on discharge for hyponatremia and worsening kidney function CXR: mild pulmonary edema Continue on torsemide 20 mg once a day. Gout On allopurinol Depression recently started on Lexapro Hypothyroidism On Synthyroid Hyperlipidemia On statin GERD On omeprazole Hypertension Lisinopril and amlodipine were held at time of discharge last admission on metoprolol, continue DVT prophylaxis: Coumadin r/Lovenox bridge on hold in setting of epistaxis Disposition:Anticipate transition to acute rehab when medically stable Will be discharged to rehab facility this morning Admission and Anticipated Discharge Date Admission Date: September 11, 2023 Subjective 10/06/2023 The patient was seen and examined in telemetry unit She has been stable and wants to go to rehab today Denies any significant symptoms 10/07/2023 The patient was seen and examined in telemetry unit She has been stable, lying in bed without any acute distress and denies any significant symptoms She will be discharged this morning to rehab facility Review of Systems Review of Systems: All systems reviewed and are unremarkable except as noted below Physical Exam Physical Exam: Lying in bed comfortably Constitutional: well developed, well nourished, + ill appearing and + obese Eyes: PERRL, conjunctivae normal, anicteric sclerae ENMT: external ear and nose normal, oropharynx normal Neck: trachea midline, no thyromegaly Respiratory: no respiratory distress Auscultation: + diminished lung sounds and + crackles (Minimal dependent crackles on both sides) Cardiovascular: Rate/Rhythm: regular rate, regular rhythm and + tachycardic Heart Sounds: normal S1 and normal S2; no murmur Extremities: + edema (Trace edema bilaterally with chronic skin changes) Gastrointestinal (Abdomen): Inspection/Auscultation: normal bowel sounds; abdomen not distended Percussion/Palpation: abdomen soft; abdomen nontender Musculoskeletal: Cannot move his right lower extremity specially the knee and the hip due to pain and swelling Neurologic: normal touch/pain/proprioception and moves all extremities; no focal motor deficits Lymphatic: no cervical or axillary lymphadenopathy Results & Data Results & Data Vital Signs (Past 12 Hours) Vital Signs Temp Pulse Pulse Resp BP Pulse Ox O2 Del Method 10/07/23 08:07 36.5 C 100 H 18 119/81 95 Room Air 10/07/23 07:23 87 10/07/23 02:30 36.7 C 80 18 137/68 92 Room Air 10/06/23 22:31 36.6 C 89 18 102/65 93 Room Air 10/06/23 21:59 91 H Laboratory Results Short CBC 10/06/23 10/07/23 Range/Units 07:58 06:47 WBC 8.79 7.40 (4.8-10.8) K/ul Hgb 7.9 L 7.5 L (12.0-16.0) g/dl Hct 25.6 L 24.8 L (37.0-47.0) % Plt Count 227 228 (130-400) K/uL BMP 10/06/23 10/07/23 07:58 06:47 Sodium 137 138 Potassium 3.8 3.7 Chloride 102 102 Carbon Dioxide 29 30 BUN 26 H 25 H Creatinine 1.07 1.12 Glucose 165 H 97 Calcium 8.2 L 8.2 L Liver Function 10/06/23 10/07/23 Range/Units 07:58 06:47 Total Bilirubin 0.3 0.2 (0.2-1.0) mg/dl AST 12 L 15 (13-39) U/L ALT 8 9 (7-52) U/L Alkaline Phosphatase 75 71 (34-104) U/L Albumin 2.2 L 2.2 L (3.4-5.0) gm/dl Medications Administered Current Inpatient Medications Acetaminophen (Acetaminophen 325 Mg Tab) 650 mg PO Q4H PRN PRN Reason: Pain or Fever Stop: 10/11/23 23:50 Last Admin: 10/03/23 19:28 Dose: 650 mg Allopurinol (Allopurinol 100 Mg Tab) 200 mg PO HS [facility] Stop: 10/12/23 20:59 Last Admin: 10/06/23 21:35 Dose: 200 mg Amiodarone HCl (Amiodarone 200 Mg Tab) 200 mg PO QAM [facility] Stop: 10/19/23 08:59 Last Admin: 10/06/23 09:11 Dose: 200 mg Ascorbic Acid (Ascorbic Acid 500 Mg Tab) 250 mg PO [id number]@0900 [facility] Stop: 10/13/23 08:59 Last Admin: 10/06/23 09:10 Dose: 250 mg Benzonatate (Benzonatate 100 Mg Capsule) 100 mg PO TID PRN PRN Reason: Cough Stop: 11/03/23 04:31 Dextrose (Dextrose 50% 50 Ml Syringe) 25 - 50 ml IV UD PRN; Protocol PRN Reason: Hypoglycemia Protocol Stop: 10/12/23 01:58 Diclofenac Sodium (Diclofenac Sod 1% Gel 100 Gm Tube) 4 gm EXT QID [facility]; Protocol Stop: 10/12/23 08:59 Last Admin: 10/06/23 21:36 Dose: 4 gm Docusate Sodium (Docusate Sodium 100 Mg Cap) 100 mg PO BID [facility] Stop: 10/12/23 08:59 Last Admin: 10/06/23 21:37 Dose: Not Given Enoxaparin Sodium (Enoxaparin Inj 120 Mg/0.8 Ml Syr) 111 mg SQ BID [facility] Stop: 11/02/23 08:59 Last Admin: 10/03/23 21:25 Dose: 111 mg Escitalopram Oxalate (Escitalopram Oxalate 10 Mg Tab) 5 mg PO QAM [facility] Stop: 10/12/23 08:59 Last Admin: 10/06/23 09:08 Dose: 5 mg Ferrous Sulfate (Ferrous Sulfate 325 Mg Tab) 325 mg PO MoWeFr@0900 [facility] Stop: 10/13/23 08:59 Last Admin: 10/06/23 09:08 Dose: 325 mg Glucagon (Glucagon For Inj 1 Mg Vial) 1 mg SQ UD PRN; Protocol PRN Reason: Hypoglycemia Protocol Stop: 10/12/23 01:58 Glucose (Glucose 40% Gel 15 Gm Tube) 15 - 30 gm PO UD PRN; Protocol PRN Reason: Hypoglycemia Protocol Stop: 10/12/23 01:58 Glucose (Glucose 10 Tab/Tube) 4 - 8 tab PO UD PRN; Protocol PRN Reason: Hypoglycemia Treatment Stop: 10/12/23 01:58 Heparin Sodium (Beef Lung) (Heparin 10 Unit/Ml 5 Ml Flush) 5 ml FLUSH PRN PRN PRN Reason: Flush Stop: 10/23/23 00:55 Last Admin: 09/27/23 09:30 Dose: 5 ml Ampicillin Sodium/Sulbactam Sodium 3,000 mg/ Sodium Chloride 100 mls @ 100 mls/hr IV Q6H [facility] Stop: 10/08/23 13:29 Last Infusion: 10/07/23 02:35 Dose: Infused Insulin Aspart (Insulin Aspart Per Unit Charge) 0 units SC ACHS [facility] Stop: 10/12/23 07:29 Last Admin: 10/06/23 20:36 Dose: Not Given Insulin Glargine (Lantus Per Unit Charge) 5 units SQ DAILY [facility] Stop: 10/12/23 08:59 Last Admin: 10/06/23 09:11 Dose: 5 units Lactobacillus Acidophilus (Advanced Probiotic 625 Mg Capsule) 1,250 mg PO DAILY [facility] Stop: 10/14/23 10:59 Last Admin: 10/06/23 09:11 Dose: Not Given Levothyroxine Sodium (Levothyroxine Sodium 112 Mcg Tablet) 112 mcg PO DAILYBB [facility] Stop: 10/12/23 06:29 Last Admin: 10/07/23 05:08 Dose: 112 mcg Magnesium Hydroxide (Magnesium Hydroxide Susp 30 Ml Udc) 30 ml PO Q6H PRN PRN Reason: constipation Stop: 11/04/23 15:48 Last Admin: 10/05/23 16:37 Dose: 30 ml Magnesium Oxide (Magnesium Oxide 400 Mg Tab) 400 mg PO QPM [facility] Stop: 10/12/23 20:59 Last Admin: 10/06/23 21:35 Dose: 400 mg Metoprolol Tartrate (Metoprolol Tartrate 50 Mg Tab) 50 mg PO BID [facility] Stop: 10/12/23 08:59 Last Admin: 10/06/23 21:35 Dose: 50 mg Miscellaneous (Carbohydrates For Hypoglycemia ) 15 - 30 gm PO UD PRN PRN Reason: Hypoglycemia Protocol Stop: 10/12/23 01:58 Multi-Ingredient Mouthwash/Gargle (First - Mouthwash Blm 119 Ml) 5 ml PO Q6H [facility] Stop: 10/18/23 14:59 Last Admin: 10/07/23 03:21 Dose: Not Given Multivitamins (Multivitamin Tab) 1 tab PO QPM [facility] Stop: 10/12/23 20:59 Last Admin: 10/06/23 21:38 Dose: 1 tab Nitroglycerin (Nitroglycerin Sl 0.4 Mg/Tab Tab) 0.4 mg SL Q5M PRN PRN Reason: Chest Pain Stop: 10/11/23 23:50 Oxycodone HCl (Oxycodone Hcl Ir 5 Mg Tab (Immediate Release)) 5 - 10 mg PO QID PRN PRN Reason: Pain Stop: 10/15/23 22:02 Last Admin: 10/06/23 22:33 Dose: 5 mg Pantoprazole Sodium (Pantoprazole 40 Mg Tab) 40 mg PO QAM [facility] Stop: 10/12/23 08:59 Last Admin: 10/06/23 09:07 Dose: 40 mg Polyethylene Glycol (Polyethylene (Miralax) 17 Gm Pack) 17 gm PO DAILY PRN PRN Reason: Constipation Stop: 10/11/23 23:50 Last Admin: 10/05/23 08:26 Dose: 17 gm Polyethylene Glycol (Polyethylene (Miralax) 17 Gm Pack) 17 gm PO QAM [facility] Stop: 10/12/23 08:59 Last Admin: 09/19/23 09:01 Dose: 17 gm Rosuvastatin Calcium (Rosuvastatin Calcium 10 Mg Tab) 10 mg PO HS [facility] Stop: 10/12/23 20:59 Last Admin: 10/06/23 21:35 Dose: 10 mg Sennosides (Senna 8.6 Mg Tab) 8.6 mg PO QAM PRN PRN Reason: Constipation Stop: 11/05/23 08:59 Last Admin: 10/05/23 18:10 Dose: 8.6 mg Sodium Chloride (Sodium Chloride 0.65% Na Soln 45 Ml (Obert)) 2 sprays NA Q8 PRN PRN Reason: DRYNESS Stop: 10/12/23 00:00 Tamsulosin HCl (Tamsulosin Hcl 0.4 Mg Cap) 0.4 mg PO DAILY [facility] Stop: 10/12/23 08:59 Last Admin: 10/06/23 09:07 Dose: 0.4 mg Torsemide (Torsemide 20 Mg Tab) 20 mg PO QAM [facility] Stop: 10/25/23 13:14 Last Admin: 10/06/23 14:47 Dose: 20 mg Vitamin D (Cholecalciferol 25 Mcg (1000 Units) Tab) 25 mcg PO QAM [facility] Stop: 10/12/23 08:59 Last Admin: 10/06/23 09:10 Dose: 25 mcg Warfarin Sodium (Warfarin Sod 2 Mg Tab) 2 mg PO HS [facility] Stop: 10/18/23 20:59 Last Admin: 10/03/23 21:25 Dose: 2 mg
[2023-10-07 08:28] LABS: INR 1.2 (0.9-1.1); Prothrombin Time 12.6 Seconds (9.0-12.0)
--- NOTE | 2023-10-08 07:35 | Discharge Summary ---
Date of Service October 08, 2023 Admission HPI Per Admitting Provider 73-year-old female with past medical history significant for type 2 diabetes, gout, hyperlipidemia, hypothyroidism, obstructive sleep apnea on CPAP, paroxysmal atrial fibrillation, chronic diastolic CHF, CKD stage III, pulmonary hypertension, obesity, GERD, chronic bilateral low back pain, history of CVA, history of gastric ulcer comes from [facility] because of patient being sleeping more and less interactive. Patient was admitted on July 30, 2023 with UTI and sepsis and right ureteral calculus had adenovirus infection and SAJAN with creatinine of 4.2 and then patient was in septic shock requiring p ressors cultures growing VRE, E. coli and Proteus mirabilis in the urine and blood cultures growing E. coli and antibiotics were tapered to IV ampicillin per ID to complete 14-day course and she is s/p right ureteral stent placement. kidney function improved and she was discharged to alf on August 10, 2023. Patient currently somewhat drowsy. But alert and oriented x 3. States is not ambulated since last 3 weeks. States feeling depressed. Denies any headache. No blurred vision. No earache or runny nose or sore throat. No cough. States appetite is down but swallowing okay. Denies chest pain or shortness of breath. No nausea or vomiting. No abdominal pain. Normal bowel and bladder movements. Initially when she came in her blood pressure was soft systolic blood pressure 90s but improved with the fluids. Past medical history. As mentioned above Past surgical history. Left total knee arthroplasty. Bilateral carpal tunnel surgery. Cataract surgery. Injection of lumbosacral spine. Tonsillectomy adenoidectomy. Right repair of shoulder cuff. Sacroiliac joint injection. Social history. . No smoking. Alcohol few times a month. No drug use. Family history. Father had basal cell carcinoma. Hypertension. Stroke. Gout. Mother had diabetes. Heart disease. Maternal cousin had breast cancer. Maternal grandmother had diabetes. Brother has heart disease. Pacemaker. Daughter has pituitary adenoma Admission Exam Per Admitting Provider Physical Exam: General- Drowsy Head- atraumatic Eyes- PERRL. ENT- oropharynx clear Neck- supple, no JVD. Lungs- clear to auscultation no wheezing or crackles. Heart- regular rhythm; no murmur, no gallop. Abdomen- normal bowel sounds, soft, nontender, no distension Extremities- no pretibial edema, no erythema seen Neuro- alert, oriented x 3 but drowsy; PERRL, ; no facial palsy; no dysarthria; obeys simple commands, moves extremities. Principal Diagnosis Acute metabolic and cephalopathy-resolved, L5-S1 discitis and osteomyelitis, right iliacus/iliopsoas abscess Discharge Exam Lying in bed comfortably Constitutional well developed, well nourished, + ill appearing and + obese Eyes PERRL, conjunctivae normal, anicteric sclerae ENMT external ear and nose normal, oropharynx normal Neck trachea midline, no thyromegaly Respiratory no respiratory distress Auscultation: + diminished lung sounds and + crackles (Minimal dependent crackles on both sides) Cardiovascular Rate/Rhythm: regular rate, regular rhythm and + tachycardic Heart Sounds: normal S1 and normal S2; no murmur Extremities: + edema (Trace edema bilaterally with chronic skin changes) Gastrointestinal (Abdomen) Inspection/Auscultation: normal bowel sounds; abdomen not distended Percussion/Palpation: abdomen soft; abdomen nontender Neurologic normal touch/pain/proprioception and moves all extremities; no focal motor deficits Lymphatic no cervical or axillary lymphadenopathy Discharge Data Allergies Allergy/AdvReac Type Severity Reaction Status Date / Time Penicillins Allergy Intermediate URTICARIA; Verified 09/11/23 22:37 PER PT, CAN TAKE AMOXICILLIN erythromycin base AdvReac Intermediate GI UPSET Verified 09/11/23 22:37 Consultations 09/11/23 20:32 ED Decision to Admit Stat 09/12/23 08:00 Consult Nephrology Routine Consult Urology Routine 09/13/23 07:40 Consult Infectious Diseases Routine 09/15/23 14:48 Consult Orthopedic Surgery Routine Procedures Performed Operation Date: 09/16/23 14:30 Actual Procedures p Cystoscopy, Ureteronephroscopy, Retrograde Pyelogram, with Ureteral Dilation, Laser Lithotripsy, Stone Basket Extraction, (Right) - Song Edwards DO s Exchange of Stent Catheter - Right(Right) - Song Edwards DO Ordered Studies 09/11/23 19:07 CT abd pelvis wo con Stat CT head/brain wo con Stat 09/14/23 11:21 MR lumbar spine wo con Routine 09/16/23 FL retrograde includes kub Routine 09/21/23 12:16 US Renal Bladder [US renal/blad retro comp] Routine 09/22/23 07:19 CT lumbar spine wo con Routine 09/28/23 06:00 CT lumbar spine w con Routine 10/01/23 09:40 IR puncasp abs/lolita/bulla/cys Urgent 10/04/23 04:28 CT chest diagnostic wo con Stat Hospital Course (1) AMS (altered mental status): 73 yo F with PMHx significant for type 2 diabetes, gout, hyperlipidemia, hypothyroidism, obstructive sleep apnea on CPAP, paroxysmal atrial fibrillation, chronic diastolic CHF, CKD stage III, pulmonary hypertension, obesity, GERD, chronic bilateral low back pain, history of CVA, history of gastric ulcer presenting from [facility] with lethargy. Patient was admitted on July 30, 2023 with UTI and sepsis and right ureteral calculus, had adenovirus infection and SAJAN with creatinine of 4.2 with septic shock requiring pressors, cultures growing VRE, E. coli and Proteus mirabilis in the urine and blood cultures growing E. coli. Antibiotics were tapered to IV ampicillin per ID to complete 14-day course and she is s/p right ureteral stent placement. kidney function improved and she was discharged to alf on August 10, 2023. Acute metabolic encephalopathy, resolved -Secondary to underlying E. coli UTI, bacteremia, In the setting of indwelli ng ureteral stent, nephrolithiasis Sepsis, POA R iliacus/iliopsoas abscesses L5-S1 discitis and osteomyelitis Patient presented to the ED on September 10 with altered mental status/lethargy. It was thought secondary to UTI. CT abdomen and pelvis showed right nephroureteral stent in place. Patient underwent removal and stent exchange on September 16, 2023 MRI done for the back pain from September 14, 2023 showed L5-S1 discitis and osteomyelitis, 2 associated iliacus and iliopsoas fluid collection consistent with abscess. Lumbar CT repeated on September 22, 2023 did not show any significant change compared to MRI from September 14, 2023 Blood cultures from 09/10one set positive for E. coli Urine culture from 09/10E. coli, lactobacillus Repeat blood culture from 09/11no growth ESR on 09/2467, CRP5.83 Initially ID recommended patient to be started on IV ampicillin for 14 days on September 13, 2023. However, given the findings on the MRI showing discitis, osteomyelitis and abscesses. Previous attending discussed with infectious disease again and patient was recommended to be on IV Unasyn for total of [address] of the lumbar spine was done on August; findings were consistent with L5-S1 discitis and osteomyelitis as previous scans. There was associated right iliac us/iliopsoas fluid collection similar to previous scan. Patient is unable to undergo MRI due to inability to lie flat for several minutes. previous provider had discussion with infectious disease on September 28, 2023( Dr. Haney); he recommended that he would not change antibiotics at this time. He recommended to see if there is a possibility to obtain aspirate from the abscess seen on the CT. previous provider discussed with interventional radiology SHEKHAR(Mark); he reports attempts could be made to obtain a sample from the abscess. -pt s/p IR drainage on 10/01/23, cultures NGTD Continue on IV Unasyn for total of 6 weeks of treatment from September 12, for discitis and osteomyelitis as previously recommended by ID, follow cultures-NGTD Remains clinically stable without any acute distress Remains hemodynamically stable and saturating normally on room air Moves all extremities but remain generally weak Will continue with the current IV antibiotic and finish the proposed course as advised by the ID specialist Remains medically stable, afebrile, without any significant symptoms She will be discharged to rehab this morning Epistaxis Pt with epistaxis episode overnight on 10/02 INR of 1.3 that day, decreased even further after resuming warfarin on 09/30 Was started on Lovenox bridge at that time Epistaxis resolved after Afrin Warfarin/Lovenox on hold, INR of 1.4 Improved, pt with occasional bleeds, holding warfarin at this time. Resume as able Pt currently declining resuming No more epistaxis and the hemoglobin remains stable at 7.9 Advised to start Coumadin sooner than later No more epistaxis and hemoglobin remained stable at 7.5-advised to restart Coumadin as soon as possible History of paroxysmal atrial fibrillation On amiodarone and metoprolol and Coumadin held coumadin in setting of need for procedure Resumed coumadin on 09/30, also on Lovenox bridge while INR subtherapeutic As above warfarin currently on hold in setting of severe nosebleed, resume as able. Pt declined resuming on 10/04 SAJAN on CKD stage III Creatinine up trended from 1.3-1.8 Likely secondary to hypotensive episode Nephrology was previously consulted Blood pressure overall improved Creatinine improved Continue monitor Avoid nephrotoxic agents Nephrology recs for discharge -Nephrology f/u with weekly BMP after discharge 10/03-slight SAJAN once more 1.2, NSS 2 bags 10/04- wnl Kidney function remains normal with normal electrolytes Pressure ulcer of right buttock, unstageable and cluster of 3 pressure ulcers on bilateral lower back, unstageable, all POA Patient has [id number] hospitalizations within the last few months leading to physical deconditioning. Patient bedbound and requires Ketty lift to get her out of the bed Continue PT OT Wound care consulted, appreciate recs Will need to continue with PT OT and frequent change of positions in bed to avoid complications from pressure sores Acute on chronic hyponatremia Presented with sodium of 118 Nephrology was consulted -was given IV fluids and Lasix. Sodium improved Hyperkalemia Potassium 5.5 on admission Nephrology consulted, K now wnl Resolved Elevated troponin Troponin 16 mostly demand ischemia Obstructive sleep apnea CPAP nightly refused cpap says she was on cpap for last 5-6yrs but not using for last 6 weeks as mask was not fitting. She got new mask but not started using it yet as she has URI symptoms. Strongly advised to use CPAP at nighttime Type 2 Diabetes Will hold home p.o. medications Sliding scale and lantus 5units daily for now Will monitor History of paroxysmal atrial fibrillation On amiodarone and metoprolol and Coumadin hold coumadin. Strongly advised to restart Coumadin Chronic diastolic CHF Was on spironolactone and Bumex last admission but stopped on discharge for hyponatremia and worsening kidney function CXR: mild pulmonary edema Continue on torsemide 20 mg once a day. Gout On allopurinol Depression recently started on Lexapro Hypothyroidism On Synthyroid Hyperlipidemia On statin GERD On omeprazole Hypertension Lisinopril and amlodipine were held at time of discharge last admission on metoprolol, continue DVT prophylaxis: Coumadin r/Lovenox bridge on hold in setting of epistaxis Disposition:Anticipate transition to acute rehab when medically stable Will be discharged to rehab facility this morning Total Time Total Time Spent Total Time Spent (In Minutes): 40 minutes Discharge Plan Discharge Items Patient Disposition: Transfer [facility] Reason For Visit: HYPONATREMIA, UTI, AMS Discharge Diagnosis: Acute metabolic and cephalopathy-resolved, L5-S1 discitis and osteomyelitis, right iliacus/iliopsoas abscess Condition on Discharge: Fair Activity: As commented below Activity Comment: Will need PT OT and assistance with ADLs Non-emergency contact: Primary Care Provider Call non-emergency contact if: you have any medication questions and your symptoms worsen Follow-up/Referrals: Song Edwards DO [Physician] - 10/22/23 10:30 am Micah Whitmore MD [Primary Care Provider] - Diet: Carb Count or DM1 Diet Texture: Easy to Chew Addtl Attending Provider Instructions: Please take precautions to avoid falls Start your Coumadin as soon as possible Finish the course of intravenous antibiotic as advised You need to have weekly CBC and CMP done as long as you are on antibiotic Please keep follow-up appointments with healthcare providers Pending Studies at Discharge: No Stand-Alone Forms: My [facility] Skilled Items Patient informed of condition?: Yes DNR: No Discharge Level of Care: Skilled Communicable Disease: No Discharge Prognosis: Stable Lines: PICC Urinary Catheter: Yes Medications and DC Order Prescriptions: New torsemide 20 mg Tablet 20 mg PO QAM Qty: 30 0RF Advanced Probiotic 625 mg (10 billion cell) Capsule 1 cap PO DAILY Qty: 30 0RF ampicillin-sulbactam [Unasyn] 3 gram recon soln 3 g IV Q6H Qty: 10 0RF Rx Instructions: Continue IV for 6 weeks starting on 09/13/2023 Continued acetaminophen [Tylenol Extra Strength] 500 mg tablet 500 mg PO TID Rx Instructions: PER PT "USUALLY TAKE AT LEAST ONCE A DAY". allopurinol [Zyloprim] 100 mg tablet 200 mg PO HS omeprazole 20 mg capsule,delayed release(DR/EC) 20 mg PO QAM cholecalciferol (vitamin D3) 25 mcg (1,000 unit) capsule 1,000 unit PO QAM ondansetron HCl 4 mg tablet 4 mg PO Q8H PRN (Reason: nausea and vomiting) Qty: 30 0RF tamsulosin 0.4 mg capsule 0.4 mg PO DAILY Qty: 30 1RF rosuvastatin [Crestor] 10 mg Tablet 10 mg PO HS magnesium oxide 400 mg magnesium Capsule 400 mg PO QPM metoprolol tartrate 50 mg Tablet 50 mg PO BID Qty: 0 0RF metformin 500 mg tablet extended release 24 hr 500 mg PO QAM levothyroxine 112 mcg Tablet 112 mcg PO QAM amiodarone 200 mg tablet 200 mg PO QAM multivitamin Tablet 1 tab PO QPM repaglinide 0.5 mg Tablet 0.5 mg PO TIDM Rx Instructions: administer within 30 minutes of a meal or snack Vitron-C 65 mg iron- 125 mg Tablet,Delayed Release (Dr/Ec) 1 tab PO MOWEFR acetaminophen [Tylenol] 325 mg Tablet 650 mg PO Q6 PRN (Reason: Fever Or Pain) docusate sodium 100 mg Capsule 100 mg PO AMHS warfarin 1 mg Tablet 1 mg PO HS insulin lispro [Humalog U-100 Insulin] 100 unit/mL Solution 1 sliding scale dose SUBCUT ACHS Rx Instructions: SS 350-400=8UNITS, 401-450=12UNITS, 451-500=16 UNITS, 501-550= 18UNITS, RECHECK IN 2 HRS polyethylene glycol 3350 [Miralax] 17 gram/dose Powder 17 g PO QAM oxycodone 5 mg Tablet 5 mg PO Q4H PRN (Reason: Pain) Rx Instructions: PAIN 9-10 Saline Nasal 0.65 % Aerosol,[place] 2 spray INTRANASAL Q8 PRN (Reason: DRYNESS) escitalopram oxalate 5 mg Tablet 5 mg PO QAM diclofenac sodium 1 % Gel 4 g TOPICAL QID Rx Instructions: KNEE PAIN menthol-zinc oxide [Calmoseptine] 0.44-20.6 % Ointment 1 applic TOPICAL DIRECTED Rx Instructions: Apply to buttocks/under right breast Q shift for 2 weeks. Start 09/07/2023 Discharge Orders: Discharge Order (Routine); Ordered 10/07/23 Ordered By: Shirley Wilson Admission Data Admit Date/Time: 09/11/23 22:10 Attending Provider: Shirley Wilson Admit Provider: Lucio Stinson Primary Care Provider: Micah Whitmore Other Providers: Lucio Stinson; Ian Ambrocio; Alley Barraza; Sebastián Ordoñez I.; Brian Haney II; Akanksha Yu; Florentin Mitchell; Jonathan Garcias; Diana Rader; Lencho Mirza; Manjit Choi Other Interventions: Discharge Summary Assessment (RN) Last Done: 10/07/23 08:35
== END 2023-10-07 10:19 | DRG 659 ==
LOC: ED 18:40 → SUATTDRO 22:10 → 2S 22:10

== ENCOUNTER 2025-02-19 11:05 | Inpatient (IN) ==
--- NOTE | 2025-02-13 10:07 | Anesthesiology Consultation ---
Date of Service February 13, 2025 Assessment & Plan (1) Encounter for pre-operative examination: Chart Review Chart Review: Acceptable Risk for Surgery and Patient NOT seen in Pre Admission Testing -Pt seen by Cardio 01/29/25 for preop risk stratification. 'Patient is a low risk patient for a low risk surgery to be of 0.5%' (pt to coordinate with coumadin clinic for preop warfarin mgmt). -D/W , re: pt's moderate per 01/2023 ECHO; 'FYI note' sent to Cardio. Pt asymptomatic. Pt may proceed as scheduled. -Infectious Disease screening: Per PAT nursing assessment on 01/31/25, No known infectious disease contacts in past 10 days or current infectious disease symptoms. No recent travel outside the country. History Surgery Operation Date: 02/19/25 08:15 Proposed Procedures p Cystoscopy, Ureteronephroscopy, Retrograde Pyelogram, with Possible Ureteral Dilation, Laser Destruction or Extraction of the Stone, Insertion or Exchange of Stent Catheter - Bilateral - Song Edwards, DO Height/Weight Height: 5 ft Weight: 92.986 kg Allergies Allergy/AdvReac Type Severity Reaction Status Date / Time Penicillins Allergy Intermediate URTICARIA; Verified 02/09/25 13:05 PER PT, CAN TAKE AMOXICILLIN erythromycin base AdvReac Intermediate GI UPSET Verified 02/09/25 13:05 Medications Home Medications Medication Instructions Recorded Confirmed Last Taken allopurinol 100 mg tablet 200 mg PO HS 02/15/18 02/09/25 07/29/23 (Zyloprim) magnesium oxide 400 mg PO QPM 02/03/20 02/09/25 07/29/23 rosuvastatin 10 mg tablet (Crestor) 10 mg PO HS 02/03/20 02/09/25 07/29/23 metoprolol tartrate 50 mg tablet 50 mg PO BID #0 tabs 02/09/20 02/09/25 07/29/23 21:00 cholecalciferol (vitamin D3) 25 1,000 unit PO QAM 06/20/20 02/09/25 07/28/23 mcg (1,000 unit) capsule amiodarone 200 mg tablet 200 mg PO QAM 09/04/20 02/09/25 07/28/23 multivitamin 1 tab PO QPM 03/10/21 02/09/25 07/29/23 iron,carbonyl 65 mg-vitamin C 125 1 tab PO MOWEFR 07/30/23 02/09/25 Unknown mg tablet,delayed release (Vitron-C) acetaminophen 325 mg tablet 650 mg PO Q6 PRN Fever Or Pain 09/11/23 02/09/25 Unknown (Tylenol) diclofenac sodium 1 % topical gel 4 g topical QID 09/11/23 02/09/25 Unknown bumetanide 1 mg tablet 1 mg PO QAM 01/16/25 02/09/25 Unknown potassium chloride 20 mEq 20 meq PO QAM 01/16/25 02/09/25 Unknown tablet,extended release semaglutide 1 mg/dose (4 mg/3 mL) 1 mg subcut WK 01/16/25 02/09/25 02/08/25 subcutaneous pen injector (Ozempic) spironolactone 25 mg tablet 25 mg PO QAM 01/16/25 02/09/25 Unknown Stone Stopper Supplement 2 cap PO BID 02/09/25 02/09/25 Unknown levothyroxine 150 mcg tablet 150 mcg PO QAM 02/09/25 02/09/25 Unknown tamsulosin 0.4 mg capsule 0.4 mg PO QPM 02/09/25 02/09/25 Unknown warfarin 2.5 mg tablet 2.5 - 5 mg PO UD 02/09/25 02/09/25 Unknown Past Medical History Medical History (Updated 02/13/25 @ 12:34 by Jolie Deluca PA-C) Anemia Aortic stenosis moderate per 01/2023 ECHO Chronic venous insufficiency CKD stage 3 secondary to diabetes baseline creat ~1.5 per Cardio 01/2025 note Complex renal cyst Discitis of lumbosacral region hx - resolved (2019 & Spring 2023) DM II (diabetes mellitus, type II), controlled NIDDM - GLP-1 weekly Dyslipidemia Gout hx History of Helicobacter pylori infection 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 Hx of basal cell carcinoma Hx of gastric ulcer Hx of osteomyelitis Spine (02/2020) treated at [facility] with shelter antibiotics and oxycodone for pain management Hypertension Hypothyroidism Low back pain Nephrolithiasis Osteoarthritis Osteonecrosis august 2023 - (spine) inpatient hospitalization at [facility] - resolved Paroxysmal atrial fibrillation controlled currently, follows with Dr. Foster; on coumadin PEA (Pulseless electrical activity) (04/2021) treated at [facility], post op day #1 s/p laser lithotripsy. pt unsure of details. Pseudomonas infection hx - ~2022, dx at [facility]. no current issues per pt Pulmonary HTN Sleep apnea hx of cpap - no longer using. Past Family History Family History Mother Diabetes Heart disease Father Hypertension Stroke Other No family history of adverse response to anesthesia No pertinent family history Past Surgical History Surgical History (Updated 02/13/25 @ 10:04 by Jolie Deluca PA-C) H/O basal cell carcinoma excision H/O left knee surgery multiple knee arthroscopy on left H/O repair of rotator cuff right History of arthroplasty of left knee History of cardioversion RASHID with cardioversion (02/07/20): MAC sedation at [facility] History of carpal tunnel surgery bilateral History of cataract surgery bilateral History of cystoscopy multiple; most recent: 09/16/23: cysto, pyelogram, laser litho, stent exchange R: GA: LMA#4 iGel History of esophagogastroduodenoscopy (EGD) History of umbilical hernia repair (09/11/20) Umbilical Hernia Repair with Mesh - Pete Zafar DO, FACS S/P debridement multiple abdominal debridements at [facility]. 08/2020 S/P panniculectomy S/P ureteral stent placement Status post Mohs surgery Social History Smoking Status: Never smoker Do You Dip or Chew Tobacco: No Hx Alcohol Use: Yes Alcohol type: wine alcohol intake frequency: holidays/special occasions only Hx Substance Use: No substance use type: does not use Lab Results Anesthesia Preop Results Results Anesthesia Widget: WBC 7.85 K/ul (4.8-10.8) 01/16/25 Hgb 11.3 g/dl (12.0-16.0) L 01/16/25 Hct 35.5 % (37.0-47.0) L 01/16/25 Plt 215 K/uL (130-400) 01/16/25 Na 137 mmol/L (136-145) 01/16/25 K 4.6 mmol/L (3.5-5.1) 01/16/25 Cl 103 mmol/L (98-107) 01/16/25 CO2 26 mmol/L (21-32) 01/16/25 BUN 37 mg/dl (6-23) H 01/16/25 Creat 1.44 mg/dl (0.6-1.2) H 01/16/25 Glucose Level 145 mg/dl (70-99(Fasting)) H 01/16/25 Testing Electrocardiogram Date: 01/16/25 SR with 1st degree AVB, rate: 77bpm. 'suspect leads connected incorrectly' anterior infarct (cited on/before 09/15/23) Compared to 09/15/23, T wave inversion no longer evident in lateral leads ('some differences may be lead errors') Chest X-Ray Date: 01/16/25 Findings: + NAD Stable mild prominence of the right hilum. Echocardiogram Date: 02/17/23 EF: 55-59% mild cLVH. LA severely enlarged. moderate . HERB(I,D): 1.0cm2, Ao mean TX: 19.7mmHg Mitral david chordae are thickened and diffusely calcified. MS is absent. Mild TR. No pulm HTN. Grade II DD.
--- NOTE | 2025-02-19 10:58 | History & Physical Report ---
Date of Service February 19, 2025 Assessment & Plan (1) Kidney stones: (2) (HFpEF) heart failure with preserved ejection fraction: (3) SAJAN (acute kidney injury): (4) Hydronephrosis with renal and ureteral calculous obstruction: (5) T2DM (type 2 diabetes mellitus): (6) Sleep apnea: (7) Morbid obesity: (8) CKD (chronic kidney disease), stage III: (9) Hyponatremia: Plan Patient with significant stone disease and history of severe infections with sepsis secondary to obstruction. Patient has developed increasing stone burden and concern for obstruction. Patient has previously had issues with respiratory distress and problems after anesthesia. Discussed options for conservative measure and maximum expulsion medical therapy and symptom controlled. Discussed ESWL. Discussed Ureteroscopy with extraction and/or laser lithotripsy. Risks and benefits were discussed. Stone free rates were also discussed as well as possibility of multiple procedures. Ureteral stents were discussed as well as post-operative issues and pain management. All questions were answered. Risks and benefits discussed at length for procedure. These include bleeding, infection, injury to surrounding tissues or organs, and risks associated with anesthesia. Patient states understanding and agrees to proceed. Will sign consent and proceed. Plan for ureteroscopy and possible bilateral stone treatment. History of Present Illness Primary Care Provider: Micah Whitmore MD Patient here for procedure. No changes in medical issues. Patient with morbid obesity and multiple chronic medical issues had severe stone disease with sepsis in the past. Found to have new stones imaging. No major changes in urinary issues. Continued issues and concerns. No change in pain or discomfort. No severe fevers or chills. No chest pain or shortness of breath. Risks and benefits discussed at length for procedure. These include bleeding, infection, injury to surrounding tissues or organs, and risks associated with anesthesia. Patient and/or family states understanding and agrees to proceed. Consent and supporting information completed. Allergies Allergy/AdvReac Type Severity Reaction Status Date / Time Penicillins Allergy Intermediate URTICARIA; Verified 02/19/25 10:53 PER PT, CAN TAKE AMOXICILLIN erythromycin base AdvReac Intermediate GI UPSET Verified 02/19/25 10:53 Home Medications Medication Instructions Recorded Confirmed Type allopurinol 100 mg tablet 200 mg PO HS 02/15/18 02/19/25 History (Zyloprim) magnesium oxide 400 mg PO QPM 02/03/20 02/19/25 History rosuvastatin 10 mg tablet (Crestor) 10 mg PO HS 02/03/20 02/19/25 History metoprolol tartrate 50 mg tablet 50 mg PO BID #0 tabs 02/09/20 02/19/25 Rx cholecalciferol (vitamin D3) 25 1,000 unit PO QAM 06/20/20 02/19/25 History mcg (1,000 unit) capsule amiodarone 200 mg tablet 200 mg PO QAM 09/04/20 02/19/25 History multivitamin 1 tab PO QPM 03/10/21 02/19/25 History iron,carbonyl 65 mg-vitamin C 125 1 tab PO MOWEFR 07/30/23 02/19/25 History mg tablet,delayed release (Vitron-C) acetaminophen 325 mg tablet 650 mg PO Q6 PRN Fever Or Pain 09/11/23 02/19/25 History (Tylenol) diclofenac sodium 1 % topical gel 4 g topical QID 09/11/23 02/19/25 History bumetanide 1 mg tablet 1 mg PO QAM 01/16/25 02/19/25 History potassium chloride 20 mEq 20 meq PO QAM 01/16/25 02/19/25 History tablet,extended release semaglutide 1 mg/dose (4 mg/3 mL) 1 mg subcut WK 01/16/25 02/19/25 History subcutaneous pen injector (Ozempic) spironolactone 25 mg tablet 25 mg PO QAM 01/16/25 02/19/25 History Stone Stopper Supplement 2 cap PO BID 02/09/25 02/19/25 History levothyroxine 150 mcg tablet 150 mcg PO QAM 02/09/25 02/19/25 History tamsulosin 0.4 mg capsule 0.4 mg PO QPM 02/09/25 02/19/25 History warfarin 2.5 mg tablet 2.5 - 5 mg PO UD 02/09/25 02/19/25 History Past Med/Surg History Problem List Encounter for pre-operative examination Lumbar discitis Chronic hyponatremia AMS (altered mental status) [address] [place] [place] [address] admission Anemia (Acute) Hyponatremia (Acute) Leukocytosis (Acute) Confusion (Acute) Hypotension (Acute) Right knee DJD Encounter for preoperative assessment (Acute) E coli bacteremia Complicated UTI (urinary tract infection) Kidney stones (Acute) Adenoviral infection (Acute) 07/2023 [facility] admission sepsis 2/2 UTI Acute respiratory failure with hypoxia 07/2023 [facility] admission sepsis 2/2 UTI Diarrhea (HFpEF) heart failure with preserved ejection fraction SAJAN (acute kidney injury) 07/2023 [facility] admission sepsis 2/2 UTI Sepsis (Acute) 07/2023 and 09/2023 [facility] admissions PAF (paroxysmal atrial fibrillation) S/P ureteral stent placement Hydronephrosis with renal and ureteral calculous obstruction (Acute) T2DM (type 2 diabetes mellitus) Sleep apnea CPAP Hypertension Hypothyroidism Morbid obesity CKD (chronic kidney disease), stage III (Chronic) Dyslipidemia (Chronic) HTN (hypertension) (Chronic) Gout (Chronic) Medical History Aortic stenosis moderate per 01/2023 ECHO Low back pain Pulmonary HTN 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 Sleep apnea hx of cpap - no longer using. Hypothyroidism Hypertension Paroxysmal atrial fibrillation controlled currently, follows with Dr. Foster; on coumadin History of stroke Silent > Old infarct found on remote CT imaging (dating back to at least 2017) Complex renal cyst Pseudomonas infection hx - ~2022, dx at [facility]. no current issues per pt Osteonecrosis august 2023 - (spine) inpatient hospitalization at [facility] - resolved PEA (Pulseless electrical activity) (04/2021) treated at [facility], post op day #1 s/p laser lithotripsy. pt unsure of details. Nephrolithiasis Discitis of lumbosacral region hx - resolved (2019 & Spring 2023) Chronic venous insufficiency Osteoarthritis Anemia Hx of osteomyelitis Spine (02/2020) treated at [facility] with usp antibiotics and oxycodone for pain management CKD stage 3 secondary to diabetes baseline creat ~1.5 per Cardio 01/2025 note DM II (diabetes mellitus, type II), controlled NIDDM - GLP-1 weekly Dyslipidemia Gout hx Hx of basal cell carcinoma Surgical History S/P ureteral stent placement S/P panniculectomy History of cystoscopy multiple; most recent: 09/16/23: cysto, pyelogram, laser litho, stent exchange R: GA: LMA#4 iGel History of cataract surgery bilateral History of umbilical hernia repair (09/11/20) Umbilical Hernia Repair with Mesh - Pete Zafar DO, FACS History of cardioversion RASHID with cardioversion (02/07/20): MAC sedation at [facility] S/P debridement multiple abdominal debridements at [facility]. 08/2020 History of esophagogastroduodenoscopy (EGD) H/O repair of rotator cuff right H/O left knee surgery multiple knee arthroscopy on left H/O basal cell carcinoma excision Status post Mohs surgery History of carpal tunnel surgery bilateral History of arthroplasty of left knee Family History Mother Diabetes Heart disease Father Hypertension Stroke Other No family history of adverse response to anesthesia No pertinent family history Social History Smoking Status: Never smoker Second Hand Exposure: No; Do You Dip or Chew Tobacco: No; Tobacco Cessation Education Requested by Patient: No Hx Alcohol Use: Yes Alcohol type: wine Hx Substance Use: No Preferred Language: Indonesian Communication Ability: Effective Hearing Ability: Normal Hospice Music Therapist Required: No Beliefs That Will Affect Care: None marital status: / Current Living Situation: Family Current Living Situation Comment: living with daughterTanja in [place] current occupational status: retired How many Children do You have: 2 Other Information That Helps Us Care for You: No Feels Safe at Home: Yes Safety Concerns: Feels Safe At This Time Diet: diabetic during the past year weight has: decreased > 10 lbs Assistive Devices: Cane, Glasses, Lift Chair, Raised Toilet Seat, Stair Lift, Walker and Wheelchair Review of Systems All systems reviewed & are unremarkable except as noted in HPI & below Physical Exam Physical Exam: General: Alert/Arousable. No Acute illness. Obese. Advanced age. HEENT: Inspection normal. Normal inspection of face. Normal inspection of neck. Psychologic: Normal affect/No change in mentation. Respiratory: No use of accessory muscles. No respiratory changes or exacerbation or changes with tachypnea or dyspnea. Cardiovascular: No tachycardia Skin: [place] and Dry. No new rashes or visible lesions. Abdomen: Normal inspection. No guarding. PG Care Time/CCT Total # of Minutes Spent Total Time Spent with Patient: Total time spent is greater than 50% in coordination of care (as documented) at patient's floor/unit and/or counseling patient: Coding Level of Care Code None Diagnoses Kidney stones N20.0 (HFpEF) heart failure with preserved ejection fraction I50.30 SAJAN (acute kidney injury) N17.9 Hydronephrosis with renal and ureteral calculous obstruction N13.2 T2DM (type 2 diabetes mellitus) E11.9 Sleep apnea G47.30 Morbid obesity E66.01 CKD (chronic kidney disease), stage III N18.3 Hyponatremia E87.1
[~2025-02-19 11:05] MED LIST changes: -CALCIUM CHLORIDE 10% 10 ML SYR IV ONE; +DEXAMETHASONE SOD INJ 4 MG/ML VIAL ONE; -ETOMIDATE 2 MG/ML 20 ML VIAL IV ONE; +LIDOCAINE 2% 2 ML VIAL/AMP(20MG/ML) INFIL ONE; +MoRPHine SULFATE 4 MG/ML 1 ML CARP\\VIAL IV PRN; +ONDANSETRON INJ 2 MG/ML 2 ML VIAL ONE; +PHENAZOPYRIDINE HCL 200 MG TAB PO PRN; +PROPOFOL IV EMULSION 10 MG/ML 20 ML VIAL IV ONE; -SODIUM BICARB 8.4% INJ 50 MEQ/50 ML SYR IV ONE; -SODIUM CHLORIDE 0.9% 10ML FLUSH IV ONE; -SUCCINYLCHOLINE CHLORIDE 20 MG/ML 10 ML VIAL IV ONE
[2025-02-19] MEDS ORDERED: ATROPINE SULFATE 0.1 MG/ML 10ML SYR IV PRN (11:29)
[2025-02-19] MEDS ORDERED: PROMETHAZINE HCL 6.25 MG in SODIUM CHLORIDE 0.9% 50 ML IV PRN (11:29)
[2025-02-19 11:38] LABS: INR 1.3 (0.9-1.1); Partial Thromboplastin Time 29 Seconds (21-31); Prothrombin Time 13.9 Seconds (9.0-12.0)
[2025-02-19] MEDS: LR 15ML/HR IV SCH (11:54)
[2025-02-19] MEDS: CIPROFLOXACIN / D5W 400 MG/200 ML BAG IV SCH (11:58)
[2025-02-19] MEDS: DIATRIZOATE MEGLUMINE 30% 100ML VIAL INSTIL PRN (12:51)
--- NOTE | 2025-02-19 13:02 | Operative Report ---
PG Post Operative Report Pre & Post Diagnosis Operation Date: 02/19/25 12:15 Pre-Op Diagnosis: Bilateral Kidney Stones Post-Op Diagnosis: Bilateral Kidney Stones I identified the patient and participated in the time-out.: Yes Procedure Operation Date: 02/19/25 12:15 Actual Procedures Cystoscopy with Right Ureteroscopy and Laser lithotripsy Bilateral Retrograde Pyelogram and Stent Placement, Left Ureteroscopy with Basket Extraction of the Stone - Song Edwards, Surgeon Song Edwards, II, DO Tobacco Primer Machine Operator None Estimated Blood Loss 1 Findings Consistent with Post-Op Diagnosis Three stones on the left. Basketed and removed and sent for analysis. Right Stone destroyed to dust and small fragments. Specimens Stone - Left Drains 4.8 Fr x 24 cm Bilateral Anesthesia Type General Complications none Disposition Disposition: Recovery Room Indications Patient with bothersome stones. Risks and benefits discussed at length. Description of Procedure Patient was consented and brought back to the operating room. Patient was placed under anesthesia in the supine position and moved to the dorsal lithotomy position. Patient was prepped and draped in the regular sterile fashion. A time out was completed identifying the correct patient and procedure. A 30degree Cystoscope was placed into the bladder and the entire bladder was examined. The UO's were identified. The UO was cannulized with a catheter and a retrograde pyelogram was completed. No major obstruction or other issues. The right and left were assessed. A wire was then placed. On the right, a ureteral access sheath and second safety wire was placed. The flexible ureteroscope was taken into the ureter. The entire ureter and renal pelvis were examined. The stones were identified. A laser fiber was selected and the stones were pulverized to dust and small fragments. Multiple small stones within the renal pelvis. The entire area was once again examined. No residual large fragments or areas of concern were noted. The scope was slowly removed with the wire left in place. Contrast was placed through the scope for a pyelogram to assist in stent placement. The entire ureter was examined as the scope was slowly removed. No obstructions or other areas of concern were noted. With the wire in place, a 4.8 Fr Double J stent was placed. It was confirmed with fluoroscopy. On the left, a ureteral access sheath and second safety wire was placed. The flexible ureteroscope was taken into the ureter. The entire ureter and renal pelvis were examined. The stones were identified. Three approx 4-5 mm stones were discovered. These stones were grasped and able to be basketed to remove them. The stones were then sent for analysis. No issues or concerns removing the stones from the sheath. The entire area was once again examined. No residual large fragments or areas of concern were noted. The scope was slowly removed with the wire left in place. Contrast was placed through the scope for a pyelogram to assist in stent placement. The entire ureter was examined as the scope was slowly removed. No obstructions or other areas of concern were noted. With the wire in place, a 4.8 Fr Double J stent was placed. It was confirmed with fluoroscopy. With the stents in place, the bladder was emptied. The scope was removed. The patient was cleaned, aroused from anesthesia, and transferred to the pacu in stable condition having tolerated the procedure well with no complications. I was present and participated in all aspects of the procedure. The patient will be monitored in the PACU until transferred. Will observe overnight. Plan to monitor. Followup with stent removal in approx 1-2 weeks. I attest to the content of the Intraoperative Record and any orders documented therein. Any exceptions are noted below.
--- NOTE | 2025-02-19 14:27 | Fluoroscopy Report ---
INTRAOPERATIVE FLUOROSCOPIC IMAGES: CLINICAL HISTORY: Cystogram and bilateral retrograde study Fluoroscopy time: 1 minute 29 seconds Number of fluoroscopic images: 16 Ka,r: 29 mGy: FINDINGS: Bilateral retrograde study was performed. On the provided images, no filling defects were v isualized within either collecting system. There is placement of bilateral nephroureteral stents. IMPRESSION: Intraoperative fluoroscopy during a bilateral retrograde study with placement of bilatera l double pigtail nephroureteral stents. Electronically signed by: Nba Hernandez M.D. 02/19/2025 2:26 PM
--- NOTE | 2025-02-19 15:14 | Anesthesiology Progress Note ---
Date of Service February 19, 2025 Anesthesia Post Procedure Vital Signs Vital Signs: Temp Pulse Resp BP Pulse Ox O2 Del Method O2 Flow Rate 02/19/25 15:00 65 15 128/69 95 Room Air 02/19/25 14:30 63 16 153/52 H 95 Room Air 02/19/25 14:25 65 23 145/68 H 92 Room Air 02/19/25 14:10 62 14 115/60 99 Room Air 02/19/25 13:55 61 16 156/64 H 95 Room Air 02/19/25 13:40 36.4 C L 60 14 154/56 H 96 Room Air 02/19/25 13:25 60 14 144/59 H 97 Room Air 02/19/25 13:15 58 L 14 137/55 L 100 Room Air 02/19/25 13:05 63 19 145/66 H 100 Oxymask 3 02/19/25 12:59 36.0 C L 63 17 134/51 L 100 Oxymask 6 02/19/25 11:42 36.4 C L 73 20 160/70 H 97 Room Air Transfer of Care Handoff Completed per policy Notes Mental Status: alert / awake / arousable and participated in evaluation Nausea / Vomiting: adequately controlled Pain: adequately controlled Airway Patency, RR, SpO2: stable & adequate BP & HR: stable & adequate Hydration State: stable & adequate Anesthetic Complications: no major complications apparent and Pt Satisfied with anesthetic care
[2025-02-19] MEDS: D5W AND 1/2NSS + 20MEQ KCL 20 MEQ/1,000 ML BAG IV SCH (17:31)
[2025-02-19] MEDS ORDERED: MAGNESIUM HYDROXIDE SUSP 30 ML UDC PO PRN (18:03)
[2025-02-19] MEDS ORDERED: POLYETHYLENE (MIRALAX) 17 GM PACK PO PRN (18:03)
[2025-02-19] MEDS: ACETAMINOPHEN 325 MG TAB PO PRN (18:11)
[2025-02-19] MEDS: ONDANSETRON INJ 2 MG/ML 2 ML VIAL IV PRN (18:22)
--- NOTE | 2025-02-19 18:45 | Consultation ---
<Statement entered by Osei Mitchell, DO - 02/19/25 20:06> I have seen and examined the patient and have discussed the case with the advance practice provider. I have reviewed the advanced practitioner's documentation, and I agree with, and take responsibility for that plan of care. Patient reports that Juan Daniel did help with her nausea. Is tolerating oral liquids. Pain overall is fairly well-controlled Reviewed home medications as ordered I spent a total of 15 minutes coordinating, documenting, and providing care for this patient excluding time spent by another provider/QHP. Date of Consultation February 19, 2025 Assessment & Plan (1) S/P cystoscopy: (2) Kidney stones: Post op day# 0 S/P Cystoscopy with right ureteroscopy and laser lithotripsy, bilateral retrograde pyelogram and stent placement, left ureteroscopy with basket extraction of stone by Dr Edwards Pain management and antibiotics per urology Incentive spirometry Monitor H&H for acute blood loss anemia #PAF Anticoagulated on warfarin. Warfarin has been on hold INR 1.3 today Will plan to resume warfarin this evening. Will need to monitor INR for ongoing dosing Continue metoprolol tartrate, amiodarone #Chronic HFpEF Currently appears euvolemic Will hold on further IVF Plan to resume Bumex and spironolactone tomorrow #DM II A1c: 6.1 on 08/01/2024 Hold home Ozempic NovoLog sliding scale correction only at this time, monitor BSG's #CKD III Baseline Cr ~1.5 Monitor renal functions, avoid nephrotoxic agents when possible #Chronic anemia Pre-op Hgb: 11.3 Continue home iron supplement #HTN Stable Continue metoprolol tartrate #HLD Continue rosuvastatin #Gout Continue allopurinol #Hypothyroidism Continue levothyroxine #EDYTA CPAP HS DVT Prophylaxis SCDs, current INR: 1.[address] Whitmore for routine care Pt was seen and care coordinated with Dr Mitchell. See addendum I spent a total of 60 minutes reviewing notes, outpatient records, labs, medication, coordinating, documenting and providing care for this patient excluding time spent in the performance of separately billed services and excluding time spent by another provider/QHP. Thank you for this consultation. We will follow the patient with you during their hospital stay. You can reach a member of the [facility]11 via [employer] History of Present Illness Requesting Physician: Dr Edwards Reason for Consultation: post op medical management Attending Physician: Song Edwards, II, DO History of Present Illness Patient is 74 year old female with PMH HTN, HLD, DM II, CKD III, gout, hypothyroidism, obstructive sleep apnea on CPAP, paroxysmal atrial fibrillation anticoagulated on warfarin, chronic diastolic CHF, pulmonary hypertension, obesity, GERD, chronic bilateral low back pain, history of CVA, h/o urosepsis with ureteral stone who is seen in medical consultation s/p Cystoscopy with right ureteroscopy and laser lithotripsy, bilateral retrograde pyelogram and stent placement, left ureteroscopy with basket extraction of stone today by Dr Edwards. Post op patient reports had little to eat for dinner and after developed nausea. No vomiting yet. States has some lower abdominal cramping post procedure. She reports chronic low back pain that she is requesting Tylenol. States her volume status at home has been stable and denies any increased BLE edema. Denies fever/chills, diaphoresis, diarrhea, constipation, BRAXTON, dizziness, syncope, vision changes, neck pain, CP, SOB, orthopnea, palpitations, cough, sore throat, other abdominal pain, paresthesias, increased extremity edema, rashes. Allergies Allergy/AdvReac Type Severity Reaction Status Date / Time Penicillins Allergy Intermediate URTICARIA; Verified 02/19/25 10:53 PER PT, CAN TAKE AMOXICILLIN erythromycin base AdvReac Intermediate GI UPSET Verified 02/19/25 10:53 Home Medications Medication Instructions Recorded Confirmed Type allopurinol 100 mg tablet 200 mg PO HS 02/15/18 02/19/25 History (Zyloprim) magnesium oxide 400 mg PO QPM 02/03/20 02/19/25 History rosuvastatin 10 mg tablet (Crestor) 10 mg PO HS 02/03/20 02/19/25 History metoprolol tartrate 50 mg tablet 50 mg PO BID #0 tabs 02/09/20 02/19/25 Rx cholecalciferol (vitamin D3) 25 1,000 unit PO QAM 06/20/20 02/19/25 History mcg (1,000 unit) capsule amiodarone 200 mg tablet 200 mg PO QAM 09/04/20 02/19/25 History multivitamin 1 tab PO QPM 03/10/21 02/19/25 History iron,carbonyl 65 mg-vitamin C 125 1 tab PO MOWEFR 07/30/23 02/19/25 History mg tablet,delayed release (Vitron-C) acetaminophen 325 mg tablet 650 mg PO Q6 PRN Fever Or Pain 09/11/23 02/19/25 History (Tylenol) diclofenac sodium 1 % topical gel 4 g topical QID 09/11/23 02/19/25 History bumetanide 1 mg tablet 1 mg PO QAM 01/16/25 02/19/25 History potassium chloride 20 mEq 20 meq PO QAM 01/16/25 02/19/25 History tablet,extended release semaglutide 1 mg/dose (4 mg/3 mL) 1 mg subcut WK 01/16/25 02/19/25 History subcutaneous pen injector (Ozempic) spironolactone 25 mg tablet 25 mg PO QAM 01/16/25 02/19/25 History Stone Stopper Supplement 2 cap PO BID 02/09/25 02/19/25 History levothyroxine 150 mcg tablet 150 mcg PO QAM 02/09/25 02/19/25 History tamsulosin 0.4 mg capsule 0.4 mg PO QPM 02/09/25 02/19/25 History warfarin 2.5 mg tablet 2.5 - 5 mg PO UD 02/09/25 02/19/25 History Patient History Medical History Aortic stenosis moderate per 01/2023 ECHO Low back pain Pulmonary HTN 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 Sleep apnea hx of cpap - no longer using. Hypothyroidism Hypertension Paroxysmal atrial fibrillation controlled currently, follows with Dr. Foster; on coumadin History of stroke Silent > Old infarct found on remote CT imaging (dating back to at least 2017) Complex renal cyst Pseudomonas infection hx - ~2022, dx at [facility]. no current issues per pt Osteonecrosis august 2023 - (spine) inpatient hospitalization at [facility] - resolved PEA (Pulseless electrical activity) (04/2021) treated at [facility], post op day #1 s/p laser lithotripsy. pt unsure of details. Nephrolithiasis Discitis of lumbosacral region hx - resolved (2019 & Spring 2023) Chronic venous insufficiency Osteoarthritis Anemia Hx of osteomyelitis Spine (02/2020) treated at [facility] with intermediate frame tender antibiotics and oxycodone for pain management CKD stage 3 secondary to diabetes baseline creat ~1.5 per Cardio 01/2025 note DM II (diabetes mellitus, type II), controlled NIDDM - GLP-1 weekly Dyslipidemia Gout hx Hx of basal cell carcinoma Surgical History S/P ureteral stent placement S/P panniculectomy History of cystoscopy multiple; most recent: 09/16/23: cysto, pyelogram, laser litho, stent exchange R: GA: LMA#4 iGel History of cataract surgery bilateral History of umbilical hernia repair (09/11/20) Umbilical Hernia Repair with Mesh - Pete Zafar, DO, FACS History of cardioversion RASHID with cardioversion (02/07/20): MAC sedation at [facility] S/P debridement multiple abdominal debridements at [facility]. 08/2020 History of esophagogastroduodenoscopy (EGD) H/O repair of rotator cuff right H/O left knee surgery multiple knee arthroscopy on left H/O basal cell carcinoma excision Status post Mohs surgery History of carpal tunnel surgery bilateral History of arthroplasty of left knee Family History Mother Diabetes Heart disease Father Hypertension Stroke Other No family history of adverse response to anesthesia No pertinent family history Social History Smoking Status: Never smoker Second Hand Exposure: No; Do You Dip or Chew Tobacco: No; Tobacco Cessation Education Requested by Patient: No Hx Alcohol Use: Yes Alcohol type: wine Hx Substance Use: No Preferred Language: Jamaican Communication Ability: Effective Hearing Ability: Normal Forensic Document Examiner Required: No Beliefs That Will Affect Care: None marital status: / Current Living Situation: Family Current Living Situation Comment: living with [place]Tanja in [place] current occupational status: retired How many Children do You have: 2 Other Information That Helps Us Care for You: No Feels Safe at Home: Yes Safety Concerns: Feels Safe At This Time Diet: diabetic during the past year weight has: decreased > 10 lbs Assistive Devices: Cane, Glasses, Lift Chair, Raised Toilet Seat, Stair Lift, Walker and Wheelchair Review of Systems Review of Systems: All systems reviewed & are unremarkable except as noted in HPI & below Physical Exam Physical Exam: General: some reported nausea, otherwise no acute distress, chronic ill appearing obese elderly female Head: normocephalic, atraumatic Eyes: conjunctiva non-injected, anicteric ENT: normal inspection external ears, nose, mucous membranes moist Neck: supple, trachea midline, non-tender Lungs: clear, no respiratory distress, no wheezing/rhonchi/rales CV: RRR, trace pretibial edema Abd: normal BS, soft, non-tender to palpation Ext: no cyanosis, no calf tenderness Neuro: A&O x 3, no focal deficits noted, normal affect Skin: warm, dry Results & Data Vital Signs (Past 12 Hours) Vital Signs Temp Pulse Pulse Resp BP Pulse Ox Pulse Ox 02/19/25 17:49 100 02/19/25 17:27 36.3 C L 73 16 144/78 H 94 02/19/25 16:50 02/19/25 16:10 36.6 C 70 18 133/72 100 02/19/25 15:30 68 21 136/61 93 02/19/25 15:00 65 15 128/69 95 02/19/25 14:30 63 16 153/52 H 95 02/19/25 14:25 65 23 145/68 H 92 02/19/25 14:10 62 14 115/60 99 02/19/25 13:55 61 16 156/64 H 95 02/19/25 13:40 36.4 C L 60 14 154/56 H 96 02/19/25 13:25 60 14 144/59 H 97 02/19/25 13:15 58 L 14 137/55 L 100 02/19/25 13:05 63 19 145/66 H 100 02/19/25 12:59 36.0 C L 63 17 134/51 L 100 02/19/25 11:42 36.4 C L 73 20 160/70 H 97 O2 Del Method O2 Del Method O2 Flow Rate 02/19/25 17:49 Room Air 02/19/25 17:27 Room Air 02/19/25 16:50 Room Air 02/19/25 16:10 Room Air 02/19/25 15:30 Room Air 02/19/25 15:00 Room Air 02/19/25 14:30 Room Air 02/19/25 14:25 Room Air 02/19/25 14:10 Room Air 02/19/25 13:55 Room Air 02/19/25 13:40 Room Air 02/19/25 13:25 Room Air 02/19/25 13:15 Room Air 02/19/25 13:05 Oxymask 3 02/19/25 12:59 Oxymask 6 02/19/25 11:42 Room Air Diagnostic Findings Retrograde Pyelogram 02/19/25 12:15 INTRAOPERATIVE FLUOROSCOPIC IMAGES: CLINICAL HISTORY: Cystogram and bilateral retrograde study Fluoroscopy time: 1 minute 29 seconds Number of fluoroscopic images: 16 Ka,r: 29 mGy: FINDINGS: Bilateral retrograde study was performed. On the provided images, no filling defects were visualized within either collecting system. There is placement of bilateral nephroureteral stents. IMPRESSION: Intraoperative fluoroscopy during a bilateral retrograde study with placement of bilateral double pigtail nephroureteral stents. Electronically signed by: Nba Hernandez M.D. 02/19/2025 2:26 PM
[2025-02-19] MEDS ORDERED: CARBOHYDRATES FOR HYPOGLYCEMIA PO PRN (18:57)
[2025-02-19] MEDS ORDERED: DEXTROSE 50% 50 ML SYRINGE IV PRN (18:57)
[2025-02-19] MEDS ORDERED: GLUCAGON FOR INJ 1 MG VIAL SQ PRN (18:57)
[2025-02-19] MEDS ORDERED: GLUCOSE 40% GEL 15 GM TUBE PO PRN (18:57)
[2025-02-19] MEDS ORDERED: GLUCOSE 10 TAB/TUBE PO PRN (18:57)
[2025-02-19] MEDS: WARFARIN SOD 5 MG TAB PO SCH (20:57)
[2025-02-19] MEDS: MULTIVITAMIN TAB PO SCH (20:57)
[2025-02-19] MEDS: MAGNESIUM OXIDE 400 MG TAB PO SCH (20:59)
[2025-02-19] MEDS: METOPROLOL TARTRATE 50 MG TAB PO SCH (20:59)
[2025-02-19] MEDS: DOCUSATE SODIUM 100 MG CAP PO SCH (20:59)
[2025-02-19] MEDS: TAMSULOSIN HCL 0.4 MG CAP PO SCH (21:00)
[2025-02-19] MEDS: ROSUVASTATIN CALCIUM 10 MG TAB PO SCH (21:00)
[2025-02-19] MEDS: INSULIN ASPART PER UNIT CHARGE SC SCH (21:25)
[2025-02-20] MEDS: LEVOTHYROXINE SODIUM 150 MCG TABLET PO SCH (05:40)
[2025-02-20 06:04] LABS: Hematocrit (blood only) 30.0 % (37.0-47.0); Hemoglobin 9.7 g/dl (12.0-16.0); Immature Granulocytes # (auto) 0.03 K/uL (0.01-0.20); Immature Granulocytes % (auto) 0.4 %; Mean Corpuscular Hemoglobin 29.5 pg (25.0-34.0); Mean Corpuscular Volume 91.2 fL (80.0-100.0); Platelet Count 157 K/uL (130-400); RDW Standard Deviation 51.3 fL (36.4-46.3); Red Blood Count 3.29 M/uL (4.20-5.40); White Blood Count 7.50 K/ul (4.8-10.8)
[2025-02-20 06:24] LABS: Anion Gap 6.0 (3-11); Blood Urea Nitrogen 40.0 mg/dl (6-23); Calcium 8.8 mg/dl (8.6-10.3); Carbon Dioxide 27.0 mmol/L (21-32); Chloride 105.0 mmol/L (98-107); Creatinine Clr Calc Pharmacy 24.0 ml/min; Glucose 92.0 mg/dl (70-99(Fasting)); Potassium 4.5 mmol/L (3.5-5.1); Sodium 138.0 mmol/L (136-145)
[2025-02-20 07:02] LABS: INR 1.3 (0.9-1.1); Prothrombin Time 13.1 Seconds (9.0-12.0)
[2025-02-20 07:21] LABS: Hemoglobin A1C 6.4 % (4.5-5.6)
[2025-02-20] MEDS: AMIODARONE 200 MG TAB PO SCH (07:34)
[2025-02-20] MEDS: SPIRONOLACTONE 25 MG TAB PO SCH (07:34)
[2025-02-20] MEDS: ASCORBIC ACID 500 MG TAB PO SCH (07:34)
[2025-02-20] MEDS: FERROUS SULFATE 325 MG TAB PO SCH (07:34)
[2025-02-20] MEDS: CHOLECALCIFEROL 25 MCG (1000 UNITS) TAB PO SCH (07:35)
[2025-02-20] MEDS: BUMETANIDE 1 MG TAB PO SCH (07:35)
--- NOTE | 2025-02-20 08:35 | Urology Progress Note ---
Date of Service February 20, 2025 Assessment & Plan (1) Kidney stones: (2) S/P ureteral stent placement: Plan: - Pt POD#1 s/p Cystoscopy with Right Ureteroscopy and Laser lithotripsy, Bilateral Retrograde Pyelogram and Stent Placement, Left Ureteroscopy with Bas ket Extraction of the Stone - Doing well, progressing as expected - Afebrile, vitals stable overnight, BP slightly low this am - Lab work reviewed - creatinine 2.15, WBC 7.5, Hgb 9.7 - Hospitalists followingappreciate assistance - Tolerating bilateral ureteral stents with minimal bother - Continue supportive care - Expected clinical course reviewed, all questions answered - Anticipate discharge tomorrow Admission and Anticipated Discharge Date Admission Date: February 19, 2025 Subjective Patient seen and examined at bedside this morning. She is awake and sitting up in bedside chair. No acute issues overnight. Tolerating diet. Reports some sciatica pain, otherwise denies pain. Voiding spontaneously. No nausea, vomiting, fever or chills. Review of Systems Constitutional: as per Subjective / HPI Genitourinary: as per Subjective / HPI Physical Exam Constitutional: + obese; no acute distress Respiratory: normal respiratory effort; no respiratory distress and no labored breathing Gastrointestinal (Abdomen): Inspection/Auscultation: abdomen normal to inspection Musculoskeletal: Head/Neck/Chest: normocephalic Neurologic: moves all extremities and awake Psychiatric: Orientation: alert and oriented x 3 Results & Data Vital Signs (Past 12 Hours) Vital Signs Temp Pulse Resp BP Pulse Ox O2 Del Method O2 Flow Rate 02/20/25 07:59 36.5 C 79 18 93/50 L 97 Nasal Cannula 02/20/25 03:12 36.8 C 78 16 102/65 98 Nasal Cannula 1 02/19/25 23:06 36.6 C 84 16 127/70 94 Room Air 02/19/25 20:57 Nasal Cannula 1 PG Care Time/CCT Total # of Minutes Spent Total Time Spent with Patient: Total time spent is greater than 50% in coordination of care (as documented) at patient's floor/unit and/or counseling patient: Coding Level of Care Code None Diagnoses Kidney stones N20.0 S/P ureteral stent placement Z96.0
[2025-02-20] MEDS: POTASSIUM CHLORIDE CRTAB 20 MEQ TABCR PO SCH (09:53)
[2025-02-20] MEDS: SODIUM CHLORIDE 0.9% 1,000 ML IV SCH (10:53)
--- NOTE | 2025-02-20 12:54 | Nephrology Consultation ---
Date of Consultation February 20, 2025 Assessment & Plan (1) SAJAN (acute kidney injury): she does have some underlying CKD with a baseline creatinine anywhere from 1- 1.5. But just last month January 2025 she had a creatinine of 1.4 which would be regarded as a current baseline. CKD 3 is multifactorial predominantly from complications related with longstanding history of recurrent kidney stone as well as hypertension/diabetes/ obesity and diastolic heart failure. creatinine today is definitely higher than baseline and would qualify as acute kidney injury stage I nonoliguric type. at this point would presume this is hemodynamic in etiology. Agree with stopping spironolactone Bumex and Ozempic for today but worth noting that she already received this dose in the morning. agree with IV hydration with normal saline at 60 mL/hour monitor input and output charting and daily renal panel in the morning if creatinine continues to rise we will do more extensive workup making lot of urine--earlier was bloody but now only pinkish. (2) Kidney stones: longstanding history of recurrent kidney stone. has seen Rakel Deluca in Nephrology [facility]. Will recommend to have follow up appointment (3) S/P cystoscopy: Plan time spent 48 minutes. History of Present Illness Reason for Consultation: acute kidney injury Attending Physician: Song Edwards, II, DO History of Present Illness 74-year-old female with baseline creatinine of 1.4 as of January 2025.Patient with morbid obesity and multiple chronic medical issues And she has had severe stone disease with sepsis in the past including urosepsis and obstruction. yesterday on February 19 she underwent: Cystoscopy with Right Ureteroscopy and Laser lithotripsy Bilateral Retrograde Pyelogram and Stent Placement, Left Ureteroscopy with Basket Extraction of the Stone we do not have labs from yesterday but labs from this morning showed creatinine was higher at 2.1 which prompted the Nephrology consult. vital signs have been fairly normal no major abnormal event noted in the operative report now getting IV fluids normal saline at 60 mL/hour. Spironolactone Ozempic and Bumex were stopped earlier today but only after the morning dose. review of systems--- overall unremarkable. Twelve systems reviewed and negative Physical Exam Physical Exam: General: no acute distress, chronic ill appearing obese elderly female Head: normocephalic, atraumatic Neck: supple, non-tender Lungs: clear, no respiratory distress, no wheezing/rhonchi/rales CV: RRR, Systolic Murmur present trace pretibial edema Abd: normal BS, soft, non-tender to palpation Ext: no cyanosis, no calf tenderness Neuro: A&O x 3, no focal deficits noted, normal affect Skin: warm, dry Allergies Allergy/AdvReac Type Severity Reaction Status Date / Time Penicillins Allergy Intermediate URTICARIA; Verified 02/19/25 10:53 PER PT, CAN TAKE AMOXICILLIN erythromycin base AdvReac Intermediate GI UPSET Verified 02/19/25 10:53 Home Medications Medication Instructions Recorded Confirmed Type allopurinol 100 mg tablet 200 mg PO HS 02/15/18 02/19/25 History (Zyloprim) magnesium oxide 400 mg PO QPM 02/03/20 02/19/25 History rosuvastatin 10 mg tablet (Crestor) 10 mg PO HS 02/03/20 02/19/25 History metoprolol tartrate 50 mg tablet 50 mg PO BID #0 tabs 02/09/20 02/19/25 Rx cholecalciferol (vitamin D3) 25 1,000 unit PO QAM 06/20/20 02/19/25 History mcg (1,000 unit) capsule amiodarone 200 mg tablet 200 mg PO QAM 09/04/20 02/19/25 History multivitamin 1 tab PO QPM 03/10/21 02/19/25 History iron,carbonyl 65 mg-vitamin C 125 1 tab PO MOWEFR 07/30/23 02/19/25 History mg tablet,delayed release (Vitron-C) acetaminophen 325 mg tablet 650 mg PO Q6 PRN Fever Or Pain 09/11/23 02/19/25 History (Tylenol) diclofenac sodium 1 % topical gel 4 g topical QID 09/11/23 02/19/25 History bumetanide 1 mg tablet 1 mg PO QAM 01/16/25 02/19/25 History potassium chloride 20 mEq 20 meq PO QAM 01/16/25 02/19/25 History tablet,extended release semaglutide 1 mg/dose (4 mg/3 mL) 1 mg subcut WK 01/16/25 02/19/25 History subcutaneous pen injector (Ozempic) spironolactone 25 mg tablet 25 mg PO QAM 01/16/25 02/19/25 History Stone Stopper Supplement 2 cap PO BID 02/09/25 02/19/25 History levothyroxine 150 mcg tablet 150 mcg PO QAM 02/09/25 02/19/25 History tamsulosin 0.4 mg capsule 0.4 mg PO QPM 02/09/25 02/19/25 History warfarin 2.5 mg tablet 2.5 - 5 mg PO UD 02/09/25 02/19/25 History Patient History Medical History Aortic stenosis moderate per 01/2023 ECHO Low back pain Pulmonary HTN 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 Sleep apnea hx of cpap - no longer using. Hypothyroidism Hypertension Paroxysmal atrial fibrillation controlled currently, follows with Dr. Foster; on coumadin History of stroke Silent > Old infarct found on remote CT imaging (dating back to at least 2017) Complex renal cyst Pseudomonas infection hx - ~2022, dx at [facility] [place]. no current issues per pt Osteonecrosis august 2023 - (spine) inpatient hospitalization at [facility], [place] - resolved PEA (Pulseless electrical activity) (04/2021) treated at [facility], post op day #1 s/p laser lithotripsy. pt unsure of details. Nephrolithiasis Discitis of lumbosacral region hx - resolved (2019 & Spring 2023) Chronic venous insufficiency Osteoarthritis Anemia Hx of osteomyelitis Spine (02/2020) treated at [facility] with long distance billing operator antibiotics and oxycodone for pain management CKD stage 3 secondary to diabetes baseline creat ~1.5 per Cardio 01/2025 note DM II (diabetes mellitus, type II), controlled NIDDM - GLP-1 weekly Dyslipidemia Gout hx Hx of basal cell carcinoma Surgical History S/P ureteral stent placement S/P panniculectomy History of cystoscopy multiple; most recent: 09/16/23: cysto, pyelogram, laser litho, stent exchange R: GA: LMA#4 iGel History of cataract surgery bilateral History of umbilical hernia repair (09/11/20) Umbilical Hernia Repair with Mesh - Pete Zafar, DO, FACS History of cardioversion RASHID with cardioversion (02/07/20): MAC sedation at [facility] S/P debridement multiple abdominal debridements at [facility]. 08/2020 History of esophagogastroduodenoscopy (EGD) H/O repair of rotator cuff right H/O left knee surgery multiple knee arthroscopy on left H/O basal cell carcinoma excision Status post Mohs surgery History of carpal tunnel surgery bilateral History of arthroplasty of left knee Family History Mother Diabetes Heart disease Father Hypertension Stroke Other No family history of adverse response to anesthesia No pertinent family history Social History Smoking Status: Never smoker Second Hand Exposure: No; Do You Dip or Chew Tobacco: No; Tobacco Cessation Education Requested by Patient: No Hx Alcohol Use: Yes Alcohol type: wine Hx Substance Use: No Preferred Language: Japanese Communication Ability: Effective Hearing Ability: Normal White Shoe Examiner Required: No Beliefs That Will Affect Care: None marital status: / Current Living Situation: Family Current Living Situation Comment: living with daughterTanja in [place] current occupational status: retired How many Children do You have: 2 Other Information That Helps Us Care for You: No Feels Safe at Home: Yes Safety Concerns: Feels Safe At This Time Diet: diabetic during the past year weight has: decreased > 10 lbs Assistive Devices: Cane, Scooter/Electric Scooter and Walker Results & Data Vital Signs (Past 12 Hours) Vital Signs Temp Pulse Resp BP Pulse Ox O2 Del Method O2 Flow Rate 02/20/25 11:00 36.5 C 71 18 125/69 100 Nasal Cannula 02/20/25 07:59 36.5 C 79 18 93/50 L 97 Nasal Cannula 02/20/25 07:27 Room Air 02/20/25 03:12 36.8 C 78 16 102/65 98 Nasal Cannula 1 Diagnostic Findings CBC and renal panel
[2025-02-20 14:30] VITALS: RESP 16
[2025-02-20 14:36] LABS: Appearance Urine Clear (Clear); Bacteria Urine Automated None Seen (None Seen); Cast Urine Automated 0-2 /lpf (0-2); Epithelial Cell Urine Auto 0-2 /hpf (0-2); Glucose Urine UA Negative (Negative); RBC Urine Automated >20 /hpf (0-2); WBC Urine Automated 21-50 /hpf (0-5)
--- NOTE | 2025-02-20 14:57 | Hospitalist Progress Note ---
Date of Service February 20, 2025 Assessment & Plan (1) S/P cystoscopy: (2) Kidney stones: Plan: #Post op day# 1 S/P Cystoscopy with right ureteroscopy and laser lithotripsy, bilateral retrograde pyelogram and stent placement, left ureteroscopy with basket extraction of stone by Dr Edwards Hg 9.7 repeat CBC tomorrow management of acute kidney injury per below #Acute Kidney Injury on CKD III likely postobstructive -- baseline crea 1.4, now 2.15 hold Bumex + Spironolactone -- IV NSS 60cc/hr Nephro consulted #PAF Continue metoprolol tartrate, amiodarone INR 1.3 continue Coumadin #Chronic HFpEF Currently appears on the dry side management of diuretics per #2 #DM II A1c: 6.1 on 08/01/2024 Hold home Ozempic NovoLog sliding scale correction only at this time, monitor BSG's #Acute blood loss Chronic anemia Pre-op Hgb: 11.3--> now 9.7 monitor Continue home iron supplement #HTN Stable Continue metoprolol tartrate #HLD Continue rosuvastatin #Gout Continue allopurinol #Hypothyroidism Continue levothyroxine #EDYTA CPAP HS DVT Prophylaxis SCDs, current INR: 1.[address] Whitmore for routine care Admission and Anticipated Discharge Date Admission Date: February 19, 2025 Subjective seen resting in chair, comfortable states she feels fine overall has chronic L lower back/hip sciatica pain denies urinary symptoms no fever/chills no chest pain, dyspnea, palpitations, dizziness no other symptoms Review of Systems Constitutional: all noted and negative except for above Physical Exam Physical Exam: all noted and negative except for above Results & Data Results & Data Vital Signs (Past 12 Hours) Vital Signs Temp Pulse Resp BP Pulse Ox O2 Del Method O2 Flow Rate 02/20/25 14:29 36.5 C 75 16 119/72 94 Room Air 02/20/25 11:00 36.5 C 71 18 125/69 100 Nasal Cannula 02/20/25 07:59 36.5 C 79 18 93/50 L 97 Nasal Cannula 02/20/25 07:27 Room Air 02/20/25 03:12 36.8 C 78 16 102/65 98 Nasal Cannula 1 all noted and reviewed including below
[2025-02-21 06:50] LABS: Hematocrit (blood only) 29.3 % (37.0-47.0); Hemoglobin 9.6 g/dl (12.0-16.0); Immature Granulocytes # (auto) 0.02 K/uL (0.01-0.20); Immature Granulocytes % (auto) 0.4 %; Mean Corpuscular Hemoglobin 29.7 pg (25.0-34.0); Mean Corpuscular Volume 90.7 fL (80.0-100.0); Platelet Count 140 K/uL (130-400); RDW Standard Deviation 50.9 fL (36.4-46.3); Red Blood Count 3.23 M/uL (4.20-5.40); White Blood Count 5.65 K/ul (4.8-10.8)
[2025-02-21 07:16] VITALS: PULSE 74
[2025-02-21 07:18] LABS: Alanine Aminotransferase 4.0 U/L (7-52); Albumin Globulin Ratio 0.9 (0.9-2); Albumin Level 2.8 gm/dl (3.4-5.0); Alkaline Phosphatase 63.0 U/L (34-104); Anion Gap 5.0 (3-11); Bilirubin,Total 0.3 mg/dl (0.2-1.0); Blood Urea Nitrogen 40.0 mg/dl (6-23); Calcium 8.6 mg/dl (8.6-10.3); Carbon Dioxide 26.0 mmol/L (21-32); Chloride 105.0 mmol/L (98-107); Creatinine Clr Calc Pharmacy 23.3 ml/min; Globulin 3.1 gm/dl (2.5-4.0); Glucose 99.0 mg/dl (70-99(Fasting)); Potassium 4.6 mmol/L (3.5-5.1); Sodium 136.0 mmol/L (136-145); Total Protein 5.9 gm/dl (6.0-8.3)
[2025-02-21 07:22] LABS: INR 1.5 (0.9-1.1); Prothrombin Time 15.3 Seconds (9.0-12.0)
--- NOTE | 2025-02-21 08:57 | Urology Progress Note ---
Date of Service February 21, 2025 Assessment & Plan (1) Kidney stones: (2) S/P ureteral stent placement: Plan: - Pt POD#2 s/p Cystoscopy with Right Ureteroscopy and Laser lithotripsy, Bilateral Retrograde Pyelogram and Stent Placement, Left Ureteroscopy with Bas ket Extraction of the Stone - Doing well, progressing as expected - No acute issues overnight - Afebrile, vitals stable - Lab work reviewed - creatinine increased to 2.22, WBC 5.65, Hgb 9.6 - Hospitalists followingappreciate assistance - Nephrology consulted yesterday regarding SAJAN on CKDrecommended stopping spironolactone, Bumex and Ozempic for now, IV fluids; continue to trend labs and likely f/u outpatient - Tolerating bilateral ureteral stents with minimal bother - Continue supportive care - Expected clinical course reviewed, all questions answered - Anticipate discharge today or tomorrow when medically stable Admission and Anticipated Discharge Date Admission Date: February 19, 2025 Subjective Patient seen and examined at bedside this morning. She is awake and sitting up in bedside chair. No acute issues overnight. She reports some sciatica, otherwise denies pain. Voiding spontaneously, urine clearing postprocedure. Denies nausea, vomiting, fever, chills. Review of Systems Constitutional: as per Subjective / HPI Genitourinary: as per Subjective / HPI Physical Exam Constitutional: + obese; no acute distress Respiratory: normal respiratory effort; no respiratory distress and no labored breathing Gastrointestinal (Abdomen): Inspection/Auscultation: abdomen normal to inspection Musculoskeletal: Head/Neck/Chest: normocephalic Neurologic: moves all extremities and awake Psychiatric: Orientation: alert and oriented x 3 Results & Data Vital Signs (Past 12 Hours) Vital Signs Temp Pulse Resp BP Pulse Ox O2 Del Method 02/21/25 07:16 36.6 C 74 16 124/75 94 Room Air 02/20/25 21:42 36.5 C 75 16 108/72 96 Room Air PG Care Time/CCT Total # of Minutes Spent Total Time Spent with Patient: Total time spent is greater than 50% in coordination of care (as documented) at patient's floor/unit and/or counseling patient: Coding Level of Care Code None Diagnoses Kidney stones N20.0 S/P ureteral stent placement Z96.0
[2025-02-21] MEDS ORDERED: NON-FORMULARY MEDICATION (Iron,Carbonyl-Vitamin C [Vitron-C] 65 mg iron- 125 mg Tablet,Del PO SCH (09:00)
--- NOTE | 2025-02-21 11:16 | Nephrology Progress Note ---
Date of Service February 21, 2025 Assessment & Plan (1) SAJAN (acute kidney injury): Plan: stable stage 1 nonoliguric CKD she does have some underlying CKD with a baseline creatinine anywhere from 1- 1.5. But just last month January 2025 she had a creatinine of 1.4 which would be regarded as a current baseline. CKD 3 is multifactorial predominantly from complications related with longstanding history of recurrent kidney stone as well as hypertension/diabetes/ obesity and diastolic heart failure. at this point would presume this is hemodynamic in etiology. NEPH D/C RECS DX: -Stage 1 nonoliguric SAJAN on CKD 3 - obstruction s/p 02/19 Cystoscopy with Right Ureteroscopy and Laser lithotripsy, Bilateral Retrograde Pyelogram and Stent Placement -chronic HFpEF -anemia of chronic disease RX: -starting tomorrow, resume meds w/ following dose frequency changes -bumex 1 mg every other day -potassium supplement 20 mEq every other day, same day as bumex -spironolactone 25 mg on non bumex days/every other day -resume other OP meds as per med rec from H&P, including ozempic OTHER CARE: -daily STANDING weight, heart failure protocol, every other day at d/c -off site labs at [facility] ph [phone]; fax [phone] to be ordered by neph nurse >> bmp q Wed starting 02/26 through 03/08, hgb q Wednesday w/ transferrin sat same timeframe -low sodium diet; resume customary OP fluid intake balancing stones and HF F/U APPTS: -hospital d/c appt w/ me week of 03/12 or the following week -also needs [facility] cardiology follow up to be scheduled if not already in place >>[facility] Care coordinated repeatedly through the day via TText w/ HAIM Montoya and w/ [facility] RN coordinating [facility] d/c's (2) Kidney stones: Plan: longstanding history of recurrent kidney stone. -as above (3) Anemia: Plan: hgb stable mid/upper 9s, including today as above >monitor as OP Admission and Anticipated Discharge Date Admission Date: February 19, 2025 Subjective feels well; ambulating w/ walker (her baseline) eating/drinking/voiding w/o issues; no edema or exertional sob Review of Systems 2 Review of Systems: All systems reviewed & are unremarkable except as noted in Subjective Physical Exam 2 Constitutional: well developed (sitting up in chair on RA), well nourished, + morbidly obese and cooperative; no acute distress Eyes: EOM intact bilaterally ENMT: Mouth: + dry oral mucous membranes Respiratory: normal respiratory effort Auscultation: + diminished lung sounds Cardiovascular: Rate/Rhythm: regular rate and regular rhythm Heart Sounds: + murmur Extremities: + edema (trace indurated BLE) Gastrointestinal (Abdomen): Inspection/Auscultation: normal bowel sounds P ercussion/Palpation: abdomen soft; abdomen nontender Musculoskeletal: Extremities: strength 5/5 throughout Skin: no rashes, warm and dry Neurologic: urias, fluent speech, no tremor Results & Data Vital Signs (Past 12 Hours) Vital Signs Temp Pulse Resp BP Pulse Ox O2 Del Method 02/21/25 07:55 Room Air 02/21/25 07:16 36.6 C 74 16 124/75 94 Room Air Laboratory Results 02/21/25 06:26 02/21/25 06:26 (3) Anemia Anemia type: unspecified type Qualified Code(s): D64.9 - Anemia, unspecified
--- NOTE | 2025-02-21 14:05 | Hospitalist Progress Note ---
Date of Service February 21, 2025 Assessment & Plan (1) Acute renal failure superimposed on stage 3 chronic kidney disease: (2) S/P cystoscopy: (3) Kidney stones: (4) T2DM (type 2 diabetes mellitus): (5) Hypertension: (6) Paroxysmal atrial fibrillation: Plan Patient significantly improved. Reviewed nephrology recommendations for medication adjustments upon discharge Discharge medication list updated Communication with urology team Patient should get INR done on per usual process Okay for discharge from the medical standpoint. Admission and Anticipated Discharge Date Admission Date: February 19, 2025 Subjective Patient feeling significantly improved. Eager to potentially get home. Physical Exam Physical Exam: Constitutional: Alert HEENT: Mucous membranes moist. Lungs: Clear to auscultation, decreased, no wheezes rales or rhonchi CV: S1-S2, regular Abdomen: Soft, nontender, nondistended Extremities: No significant edema Neuro: No focal deficits Psych: Cooperative, normal mood Results & Data Results & Data Vital Signs (Past 12 Hours) Vital Signs Temp Pulse Resp BP Pulse Ox O2 Del Method 02/21/25 07:55 Room Air 02/21/25 07:16 36.6 C 74 16 124/75 94 Room Air Diagnostic Findings Reviewed imaging, laboratory and diagnostic studies. Pertinent findings as below. Hemoglobin 9.6 Creatinine 2.2, slightly increased
--- NOTE | 2025-02-21 14:41 | Discharge Summary ---
Date of Service February 21, 2025 Admission HPI Per Admitting Provider Patient here for procedure. No changes in medical issues. Patient with morbid obesity and multiple chronic medical issues had severe stone disease with sepsis in the past. Found to have new stones imaging. No major changes in urinary issues. Continued issues and concerns. No change in pain or discomfort. No severe fevers or chills. No chest pain or shortness of breath. Risks and benefits discussed at length for procedure. These include bleeding, infection, injury to surrounding tissues or organs, and risks associated with anesthesia. Patient and/or family states understanding and agrees to proceed. Consent and supporting information completed. Principal Diagnosis Kidney stones Discharge Exam Constitutional + obese; no acute distress Respiratory normal respiratory effort; no respiratory distress and no labored breathing Gastrointestinal (Abdomen) Inspection/Auscultation: abdomen normal to inspection Musculoskeletal Head/Neck/Chest: normocephalic Neurologic moves all extremities and awake Psychiatric Orientation: alert and oriented x 3 Discharge Data Allergies Allergy/AdvReac Type Severity Reaction Status Date / Time Penicillins Allergy Intermediate URTICARIA; Verified 02/19/25 10:53 PER PT, CAN TAKE AMOXICILLIN erythromycin base AdvReac Intermediate GI UPSET Verified 02/19/25 10:53 Consultations 02/19/25 19:19 Consult Hospitalist Routine 02/20/25 10:46 Consult Nephrology Routine Procedures Performed Operation Date: 02/19/25 12:15 Actual Procedures p Cystoscopy, Bilateral Ureteronephroscopy, Bilateral Retrograde Pyelogram, with Ureteral Dilation, Laser Destruction of Stone - Right and Basket Extraction of the Stone -Left ,(Bilateral) - Song Edwards DO s Insertion of Stent Catheter - Bilateral(Bilateral) - Song Edwards DO Ordered Studies 02/19/25 12:15 FL retrograde includes kub Routine Hospital Course (1) Kidney stones: (2) S/P ureteral stent placement: - Pt POD#2 s/p Cystoscopy with Right Ureteroscopy and Laser lithotripsy, Bilateral Retrograde Pyelogram and Stent Placement, Left Ureteroscopy with Basket Extraction of the Stone - Doing well, progressing as expected - No acute issues overnight - Afebrile, vitals stable - Lab work reviewed - creatinine increased to 2.22, WBC 5.65, Hgb 9.6 - Hospitalists followingappreciate assistance - Nephrology consulted yesterday regarding SAJAN on CKDrecommended stopping spironolactone, Bumex and Ozempic for now, IV fluids; continue to trend labs and likely f/u outpatient - Tolerating bilateral ureteral stents with minimal bother - Continue supportive care - Expected clinical course reviewed, all questions answered - Anticipate discharge today or tomorrow when medically stable - Patient stable for discharge on 02/21 per Nephrology and hospitalist team, medications updated, outpatient follow-ups to be scheduled Total Time Total Time Spent Total Time Spent (In Minutes): 25 Discharge Plan Discharge Items Patient Disposition: Home - Self-Care Reason For Visit: Hydronephrosis with Renal and Uretearl Calculous Discharge Diagnosis: Hydronephrosis with Renal and ureteral calculus Activity: Per Instructions section Lifting: No more than 25 pounds Bathing Comment: Okay to shower after discharge Exercise/Sports: Wait until after follow-up appointment Non-emergency contact: Surgeon and Urologist Call non-emergency contact if: your pain is not controlled, you have a fever and your temperature is above 101 Follow-up/Referrals: Song Edwards DO [Physician] - 03/06/25 8:15 am (Stent removal) Rakel Redman MD, PhD [Physician] - (The office will call you with a follow up appointment.) Micah Whitmore MD [Primary Care Provider] - Diet: Carb Consistent or DM2 Addtl Attending Provider Instructions: Please take all medications as prescribed and keep all follow-ups as scheduled. Please call our office at [phone] with any questions, concerns or need to reschedule appointments for any reason. We are happy to assist you. While you have a ureteral stent in place: Some discomfort is normal. Certain movements may trigger pain or a feeling that you need to urinate. You may also feel mild soreness or pressure before or during urination. These symptoms should go away a few days after the stent is removed. Your urine may be slightly pink or red. This is due to bleeding caused by minor irritation from the stent. This may happen on and off while you have the stent, it is not harmful and is to be expected. Medication to help minimize discomfort or bladder spasms, or to prevent infection may be prescribed. Take this as directed. Drink plenty of fluids to help flush out your urinary tract. If you go home with a catheter, wash with soapy water and a fresh washcloth twice daily. We recommend mild bar soap such as Dial or Dove. How long will you need a stent? An appointment should already be made for you for stent removal, unless directed otherwise. When to call [facility] at [phone]: Your urine contains heavy blood clots You are constantly leaking urine Fever of 101F or higher, chills, nausea, or vomiting Your pain is not relieved with medication The end of the stent comes out of your urethra Addtl Schedule Maker Provider Instructions: Nephrology d/c recommendations- RX: -starting tomorrow, resume home medications w/ following dose frequency changes: -bumex 1 mg every other day -potassium supplement 20 mEq every other day, same day as bumex -spironolactone 25 mg on non bumex days/every other day -resume other OP meds as per med rec from H&P, including ozempic OTHER CARE: -daily STANDING weight, heart failure protocol, every other day at d/c -off site labs at [facility] ph [phone]; fax [phone] to be ordered by neph nurse >> bmp q Wed starting 02/26 through 03/08, hgb q Wednesday w/ transferrin sat same timeframe -low sodium diet; resume customary OP fluid intake balancing stones and HF F/U APPTS: -hospital d/c appt w/ Dr. Redman week of 03/12 or the following week -also needs [facility] cardiology follow up to be scheduled if not already in place Will need to get INR checked on per usual process Pending Studies at Discharge: Yes (stone analysis) Stand-Alone Forms: My [employer], Smoking Cessation Medications and DC Order Prescriptions: New oxycodone-acetaminophen [Percocet] 5-325 mg tablet 1 tab PO TID PRN (Reason: pain) Qty: 10 0RF Continued allopurinol [Zyloprim] 100 mg tablet 200 mg PO HS cholecalciferol (vitamin D3) 25 mcg (1,000 unit) capsule 1,000 unit PO QAM Ozempic 1 mg/dose (4 mg/3 mL) pen injector 1 mg subcut WK Patient Comments: takes on rosuvastatin [Crestor] 10 mg Tablet 10 mg PO HS magnesium oxide 400 mg magnesium Capsule 400 mg PO QPM metoprolol tartrate 50 mg Tablet 50 mg PO BID Qty: 0 0RF amiodarone 200 mg tablet 200 mg PO QAM multivitamin Tablet 1 tab PO QPM Vitron-C 65 mg iron- 125 mg Tablet,Delayed Release (Dr/Ec) 1 tab PO MOWEFR acetaminophen [Tylenol] 325 mg Tablet 650 mg PO Q6 PRN (Reason: Fever Or Pain) warfarin 2.5 mg Tablet 2.5 - 5 mg PO UD levothyroxine 150 mcg Tablet 150 mcg PO QAM Stone Stopper Supplement 2 cap PO BID tamsulosin 0.4 mg capsule 0.4 mg PO QPM Changed spironolactone 25 mg tablet 25 mg PO Q48H Qty: 30 0RF Rx Instructions: Take on the days opposite of the Bumex bumetanide 1 mg tablet 1 mg PO Q48H Qty: 30 0RF Rx Instructions: Take opposite the days of the spironolactone potassium chloride 20 mEq tablet extended release 20 meq PO Q48H Qty: 30 0RF Rx Instructions: Take only on the days you take Bumex Discontinued diclofenac sodium 1 % Gel 4 g TOPICAL QID Rx Instructions: KNEE PAIN Discharge Orders: Discharge Order (Routine); Ordered 02/21/25 Ordered By: Tabatha Montoya Admission Data Admit Date/Time: 02/19/25 15:00 Attending Provider: Song Edwards Admit Provider: Song Edwards Primary Care Provider: Micah Whitmore Other Providers: Jules Resendez; Rakel Redman; Elías Do; Ibrahima Toney; Fern Jaquez; Akanksha Merida Other Interventions: Discharge Summary Assessment (RN) Last Done: 02/21/25 14:14 Coding Level of Care Code 95975 IN/OBS DISCH 30 MIN/LESS Diagnoses Kidney stones N20.0 S/P ureteral stent placement Z96.0
[2025-02-21 15:07] VITALS: BP 116/79; TEMP 98.1; O2SAT 95
== END 2025-02-21 17:40 | disposition home or self-care (01) | DRG 660 ==
LOC: PACUINP 11:05 → ASU 11:05 → 3E 16:43